=== PATIENT | female | born 1965 | race American Indian/Alaskan Native ===

== ENCOUNTER 2017-02-11 07:57 | Outpatient (CLI) | payer BC ==
--- NOTE | 2017-02-11 09:09 | Mammography Report ---
Bilateral mammogram: Compared to 05/09/15. CAD study utilized. Findings: Dominance of adipose tissue bilaterally. No mass or microcalcification. Benign axilla. Impression: Benign findings. Annual followup recommended. BI-RADS CATEGORY: 2 = Benign ACR BI-RADS MAMMOGRAPHIC CODES: 0 = Needs additional imaging evaluation; 1 = Negative; 2 = Benign; 3 = Probably benign; 4 = Suspicious; 5 = Malignant; 6 = Known biopsy-proven malignancy COMMENT: 1. Dense breast tissue, i.e., adenosis, fibrocystic changes, etc., may obscure an underlying neoplasm. 2. Approximately 10% of cancers are not detected with mammography. 3. A negative mammography report should not delay biopsy if a clinically suspicious mass is present. COMMENT: Patient follow-up letters are generated in [employer].
== END 2017-02-11 07:58 | disposition home or self-care (01) ==
LOC: MAMMO 07:57
PROVIDERS: ATTEND Family Medicine
DX: Z12.31 Encounter for screening mammogram for malignant neoplasm of breast (principal)
CPT/HCPCS: 77067; G0202

== ENCOUNTER 2018-04-12 14:20 | Outpatient (CLI) | payer OTHER ==
--- NOTE | 2018-04-12 15:15 | Mammography Report ---
Bilateral mammogram: Compared to 02/11/17. CAD study utilized. Findings: Predominance adipose tissue bilaterally. Ill-defined 1 cm focal asymmetry noted in the posterior outer right breast. No microcalcifications. Normal axilla. Impression: Focal asymmetry right breast. Recommend spot compression and sonographic examination. BI-RADS CATEGORY: 0 = Needs additional imaging evaluation ACR BI-RADS MAMMOGRAPHIC CODES: 0 = Needs additional imaging evaluation; 1 = Negative; 2 = Benign; 3 = Probably benign; 4 = Suspicious; 5 = Malignant; 6 = Known biopsy-proven malignancy COMMENT: 1. Dense breast tissue, i.e., adenosis, fibrocystic changes, etc., may obscure an underlying neoplasm. 2. Approximately 10% of cancers are not detected with mammography. 3. A negative mammography report should not delay biopsy if a clinically suspicious mass is present. COMMENT: Patient follow-up letters are generated in [employer].
== END 2018-04-12 14:21 | disposition home or self-care (01) ==
LOC: MAMMO 14:20
PROVIDERS: ATTEND Family Medicine
DX: Z12.31 Encounter for screening mammogram for malignant neoplasm of breast (principal)
CPT/HCPCS: 77067

== ENCOUNTER 2018-08-21 10:58 | Day surgery (SDC) | payer OTHER ==
[~2018-08-21 10:58] MED LIST: NACL 0.9% 1000 ML 1,000 ML IV SCH
[2018-08-21] MEDS ORDERED: DIPRIVAN 10 MG/ML IV ONE ×3 (12:20→12:21)
--- NOTE | 2018-08-21 12:20 | Anesthesia Day of Surgery ---
Anesthesia Day of Surgery - Day of Surgery Patient Examined: Yes Patient H&P Reviewed: Yes Patient is NPO: Yes Beta Blockers: No
--- NOTE | 2018-08-21 12:21 | Anesthesia Consultation ---
Anesthesia Consult and Med Hx Date of service: 08/21/18 - Airway Anesthetic Teeth Evaluation: Good ROM Head & Neck: Adequate Mental/Hyoid Distance: Adequate Mallampati Class: Class III Intubation Access Assessment: Probably Good - Pulmonary Exam CTA: No - Cardiac Exam Cardiac Exam: No Murmur - Pre-Operative Health Status ASA Pre-Surgery Classification: ASA3 Proposed Anesthetic Plan: MAC - Cardiovascular System Hx Hypertension: Yes Hx Coronary Artery Disease: No Hx Heart Attack/AMI: No Hx Angina: No Hx Percutaneous Transluminal Coronary Angioplasty (PTCA): No Hx Cardia Arrhythmia: No Hx Pacemaker: No Hx Internal Defibrillator: No Hx Valvular Heart Disease: No Hx Heart Murmur: No Hx Peripheral Vascular Disease: No - Gastrointestinal Hx Ulcer: No Hx Gastroesophageal Reflux Disease: No - Endocrine Hx Renal Disease: No Hx End Stage Renal Disease: No Hx Cirrhosis: No Hx Liver Disease: No Hx Insulin Dependent Diabetes: No Hx Non-Insulin Dependent Diabetes: No Hx Thyroid Disease: Yes Hx Hypothyroidism: No Hx Hyperthyroidism: No - Hematic Hx Anemia: No Hx Sickle Cell Disease: No - Other Systems Hx Alcohol Use: No Hx Substance Use: No Hx Cancer: No Hx Obesity: No
[2018-08-21] MEDS ORDERED: WATER FOR IRRIG STERILE ONE (12:23)
[2018-08-21] MEDS ORDERED: WATER FOR IRRIG STERILE IR ONE (12:23)
[2018-08-21 13:34] VITALS: BP 117/84
--- NOTE | 2018-08-21 15:58 | Operative Report ---
Operative Report Operative Report: Date of procedure: 08/21/2018 Procedure: Colonoscopy with submucosal injection with snare polypectomy and hot biopsy polypectomy. Attending physician: Valerio Dewitt MD Silk Screener: Valerio Dewitt MD Indication: Patient is a 53-year-old female who presents for screening colonoscopy. This colonoscopy serves to evaluate patient so that treatment may be directed based on the findings. Consent: Informed consent was obtained after advising the patient and family regarding nature of this procedure, its indications, potential benefits as well as possible complications including but not limited to bleeding perforation and adverse reaction to medication, infection as well as other cardiopulmonary complications. An informed written and verbal consent was then obtained after due opportunity was provided for questions and answers. Monitoring: Patient was monitored continuously with pulse oximetry and electrocardiographic recordings as well as blood pressure recordings. Vital signs remained stable throughout this procedure with no untoward events. Preoperative assessment: Patient was assessed immediately prior to this procedure for capacity to tolerate monitored anesthesia care and moderate sedation as well as general anesthesia. Patient's ASA classification is 2, Mallampati class is 2, Hyomental distance is 3. Instrument: [employer] video colonoscope Medications: Propofol given intravenously in divided doses. For details please refer to anesthesia records. Description of procedure: Patient was placed in the left lateral decubitus position after achieving sedation, a digital rectal examination was performed following which the colonoscope was introduced into the anal verge and advanced to the cecum which was identified by the cecal valve, the appendiceal orifice, as well as by the cecal strap and direct transillumination. The colonoscope was subsequently withdrawn with careful inspection of all mucosal surfaces. Patient tolerated this procedure well and was subsequently taken to the recovery room. The following findings were noted. Findings: Patient had a broad-based 8-10 cm semi-pedunculated polyp seen in the rectum, with the mucous cap and some changes at the base. This was elevated with submucosal injection of saline and removed by snare electrocautery. Patient had multiple diminutive diverticula in the sigmoid and descending colon. Patient also had a diminutive 5-6 mm flat polyp in the sigmoid colon which was removed by hot biopsy polypectomy. Patient was noted to have internal hemorrhoids seen on the retroflexed view at the anal verge. Impression: Rectal polyp status post snare polypectomy and submucosal injection Sigmoid colon polyp status post hot biopsy polypectomy. Diverticular disease of the colon Internal hemorrhoids. Plan: Follow pathology report. High-fiber diet. Repeat colonoscopy in 5 years, if polyp is adenomatous.
--- NOTE | 2018-08-21 15:59 | Discharge Summary ---
Short Stay Discharge Plan Activity: advance as tolerated Weight Bearing Status: Weight Bear as Tolerated Diet: regular Additional Instructions: Post Sedation D/C Instructions When you return home you may resume your regular diet unless otherwise directed. -Go directly home from the hospital and rest quietly. You may resume normal activities tomorrow. -Do NOT drive, return to work, operate any machinery or make any important personal or business decisions today. -Do NOT drink any alcohol or take nerve or sleeping drugs. They add to the effects of the medicine still present in your body. No Aspirin or Aspirin products for 4 days. Follow up with: CHRISS DICK MD [Primary Care Provider] - 7 Days
== END 2018-08-21 10:59 | disposition home or self-care (01) ==
LOC: GIO 10:58
PROVIDERS: ATTEND Internal Medicine Gastroenterology
DX: Z12.11 Encounter for screening for malignant neoplasm of colon (principal); D12.8 Benign neoplasm of rectum; K63.5 Polyp of colon; K57.30 Diverticulosis of large intestine without perforation or abscess without bleeding; K64.8 Other hemorrhoids; E07.9 Disorder of thyroid, unspecified; E78.00 Pure hypercholesterolemia, unspecified; I10 Essential (primary) hypertension; Z79.899 Other long term (current) drug therapy; Z79.01 Long term (current) use of anticoagulants
CPT/HCPCS: 45381; 45384; 45385; 88305; J2704; J7030

== ENCOUNTER 2019-02-01 06:48 | Inpatient (IN) | payer OTHER ==
[2019-02-01] MEDS ORDERED: SODIUM CHLORIDE 0.9% 1000 ML 2,000 ML ONE (07:23)
[2019-02-01 07:24] LABS: Hematocrit 39.4 % (30.3-42.9); Hemoglobin 12.6 gm/dl (10.1-14.3); Mean Corpuscular HGB Conc 32 % (30-34); Mean Corpuscular Volume 91 fl (79-97); Red Blood Count 4.36 M/mm3 (3.65-5.03); Red Cell Distribution Width 16.9 % (13.2-15.2)
[2019-02-01 07:25] LABS: Platelet Count 62 K/mm3 (140-440)
[2019-02-01] MEDS ORDERED: SODIUM CHLORIDE 0.9% 1000 ML IV SOLN IV ONE (07:26)
[2019-02-01] MEDS ORDERED: ACETAMINOPHEN 650 MG RECT SUPP PR ONE (07:31)
[2019-02-01 07:33] LABS: INR 1.21 (0.87-1.13)
[2019-02-01 07:34] LABS: Partial Thromboplastin Time 34.8 Sec. (24.2-36.6)
--- NOTE | 2019-02-01 07:34 | Cat Scan Report ---
CT head without contrast INDICATION : neuro deficits <6hrs or sx present upon awakening. TECHNIQUE: Axial imaging performed from the skull apex through the skull base without the use of con trast. All CT scans at this location are performed using CT dose reduction for ALARA by means of aut omated exposure control. COMPARISON: None FINDINGS: Parenchyma: No acute intracranial hemorrhage or parenchymal abnormality. Ventricles: Ventricles are normal in size and appear symmetric. Soft tissues: Soft tissues including the orbits appear normal. Bones: No acute osseous abnormality. Sinuses: Sinuses and mastoid air cells are clear. IMPRESSION: No acute abnormality. Findings were called to Dr. Lam at 6:28 am today.. Signer Name: Roverto Cagle MD Signed: 02/01/2019 7:30 AM Workstation Name: [email or web address]
[2019-02-01 07:35] LABS: Calcium 8.5 mg/dL (8.4-10.2)
--- NOTE | 2019-02-01 07:38 | Emergency Department Report ---
ED Altered Mental Status HPI - General Chief Complaint: Altered Mental Status Stated Complaint: CODE STROKE Time Seen by Provider: 02/01/19 07:25 Source: EMS Mode of arrival: Stretcher Limitations: Altered Mental Status - History of Present Illness Initial Comments: [employer] [facility] Date of Service: 02/01/2019 06:35:02 Impression: RO Acute Ischemic Stroke Encephalopathy Metrics: Last Known Well: Unknown [employer] Notification Time: 02/01/2019 06:33:56 Arrival Time: 02/01/2019 06:45:00 Stamp Time: 02/01/2019 06:35:02 Time First Login Attempt: 02/01/2019 06:41:00 Video Start Time: 02/01/2019 06:41:00 Symptoms: Unresponsiveness. NIHSS Start Assessment Time: 02/01/2019 06:49:00 Patient is not a candidate for tPA. Patient was not deemed candidate for tPA thrombolytics because of Last Well Known above 4.5 hours. Video End Time: 02/01/2019 07:05:00 CT head was reviewed. Advanced imaging was not obtained as the presentation was not suggestive of Large Vessel Occlusive Disease. ER physician notified of the decision on thrombolytics management. Comments: Patient presents with being found unresponsive and earlier confusion at 100 am without clear LSN. She is presenting 5.5 hours after the last time EMS saw her at 100 am. Her presentation is beyond the window of time for tPA thrombolytics. She has no clear focal deficits at this time. CT head being obtained for further evaluation. Would obtain EEG , comprehensive metabolic work up as well as inpatient stroke work up as recommended below. Of note, she has leukocytosis and thrombocytopenia. Electrolytes pending at the current time. CT head was reviewed. There was no clear acute findings, hemorrahge or acute infarct on my evaluation. Radiology read is pending at this time. She is also febrile and source is unknown. She was found to have right lateral neck palpable mass earlier. Discussed case with ED physician. She may need to be evaluated under sepsis alert. Our recommendations are outlined below. Discussed with Emergency Department Provider History of Present Illness: Patient is a 53 years old Female. Patient was brought by EMS for symptoms of Unresponsiveness. EMS was originally called to site at 100 am. When they arrived, they noted that she was alert and oriented but somewhat confused and was quite slowed in responses. LSN before that is not known. EMS was called again now, as family went to attend to her and she was not responding. She was brought here for further evaluation. She has been moving all four extremities to nociceptive stimuli and opening eyes but no speech output and does not follow commands. CT head was reviewed. There was no clear acute findings, hemorrahge or acute infarct on my evaluation. Radiology read is pending at this time. Last Seen Normal was within 4.5 hours. EXAM- NIHSS cannot be obtained. Patient not responsive and does not follow commands. Eyes are open, there is no gaze deviation. There is no speech output and patient does not follow commands. She spontaneously moves all extremities without definitive focal weakness, but motor examination is limited. Facial grimacing is symmetric. Due to the immediate potential for life-threatening deterioration due to underlying acute neurologic illness, I spent 35 minutes providing critical care. This time includes time for face to face visit via telemedicine, review of medical records, imaging studies and discussion of findings with providers, the patient and/or family. Dr Candido Medrano [employer] - Related Data Home Medications Medication Instructions Recorded Confirmed Last Taken Clonidine 0.2 mg PO DAILY 08/18/18 08/21/18 08/21/18 Levothyroxine 112 mcg PO DAILY 08/18/18 08/21/18 08/21/18 Lisinopril 40 mg PO DAILY 08/18/18 08/21/18 08/21/18 amLODIPine 10 mg PO DAILY 08/18/18 08/21/18 08/21/18 Allergies Allergy/AdvReac Type Severity Reaction Status Date / Time No Known Allergies Allergy Verified 08/18/18 09:04 ED Review of Systems ROS: Stated complaint: CODE STROKE Other details as noted in HPI ED Past Medical Hx - Past Medical History Previous Medical History?: Yes Hx Hypertension: Yes Hx Heart Attack/AMI: No Hx Liver Disease: No Hx Renal Disease: No Hx Sickle Cell Disease: No - Surgical History Hx Pacemaker: No Hx Internal Defibrillator: No - Social History Smoking Status: Unknown if ever smoked - Medications Home Medications: Home Medications Medication Instructions Recorded Confirmed Last Taken Type Clonidine 0.2 mg PO DAILY 08/18/18 08/21/18 08/21/18 History Levothyroxine 112 mcg PO DAILY 08/18/18 08/21/18 08/21/18 History Lisinopril 40 mg PO DAILY 08/18/18 08/21/18 08/21/18 History amLODIPine 10 mg PO DAILY 08/18/18 08/21/18 08/21/18 History ED Physical Exam - General Limitations: Altered Mental Status ED Course Vital Signs 02/01/19 02/01/19 07:16 07:24 Temperature 101.8 F H Pulse Rate 144 H Respiratory 44 H 44 H Rate Blood Pressure 90/60 O2 Sat by Pulse 89 Oximetry - Lab Data Result diagrams: 02/01/19 07:16 Lab Results 02/01/19 Range/Units 07:16 WBC 17.7 H (4.5-11.0) K/mm3 RBC 4.36 (3.65-5.03) M/mm3 Hgb 12.6 (10.1-14.3) gm/dl Hct 39.4 (30.3-42.9) % MCV 91 (79-97) fl MCH 29 (28-32) pg MCHC 32 (30-34) % RDW 16.9 H (13.2-15.2) % Plt Count 62 L (140-440) K/mm3 Critical care attestation.: If time is entered above; I have spent that time in minutes in the direct care of this critically ill patient, excluding procedure time. ED Disposition Clinical Impression: Encephalopathy Disposition: DC- OP ADMIT IP TO THIS HOSP Is pt being admited?: Yes Condition: Stable
--- NOTE | 2019-02-01 07:55 | Emergency Department Report ---
HPI - General Chief Complaint: Altered Mental Status Time Seen by Provider: 02/01/19 07:25 - HPI HPI: Room 18 The patient is a 53-year-old female presented with a chief complaint of altered mental status. Last night the patient went out to dinner with friends and family was found to have an unsteady gait, fatigue and appear withdrawn. Family noticed patient 7 difficulty with her "fine motor skills" throughout the night. Family states patient was having difficulty expressing herself throughout the night that she would continue to point at the menu. The patient appeared to be disoriented and upon returning home patient had difficulty going upstairs so EMS was called. EMS evaluated the patient the patient refused to come to the hospital. Subsequently the patient went to bed and this morning the patient had decreased responsiveness and was subsequently brought to the ED via EMS. The patient opens her eyes occasionally but does not answer questions verbally. Location: [See above] Duration: [See above] Quality: [See above] Severity: [See above] Modifying factors: [see above] Context: [see above] Mode of transportation: [not driving] ED Past Medical Hx - Past Medical History Previous Medical History?: Yes Hx Hypertension: Yes - Family History Family history: no significant - Social History Smoking Status: Unknown if ever smoked Substance Use Type: None - Medications Home Medications: Home Medications Medication Instructions Recorded Confirmed Last Taken Type Clonidine 0.2 mg PO DAILY 08/18/18 08/21/18 08/21/18 History Levothyroxine 112 mcg PO DAILY 08/18/18 08/21/18 08/21/18 History Lisinopril 40 mg PO DAILY 08/18/18 08/21/18 08/21/18 History amLODIPine 10 mg PO DAILY 08/18/18 08/21/18 08/21/18 History ED Review of Systems ROS: Stated complaint: CODE STROKE Other details as noted in HPI Comment: Unobtainable due to pts medical conditions Physical Exam - Physical Exam Vital Signs: Vital Signs 02/01/19 02/01/19 07:16 07:24 Temperature 101.8 F H Pulse Rate 144 H Respiratory 44 H 44 H Rate Blood Pressure 90/60 O2 Sat by Pulse 89 Oximetry Physical Exam: GENERAL: The patient is well-developed well-nourished female. Lethargic lying on stretcher. [] HEENT: Normocephalic. Atraumatic. Oropharynx appears clear. Limited cooperation by patient. Patient has moist mucous membranes. NECK: Supple. Trachea midline CHEST/LUNGS: Clear to auscultation. There is no respiratory distress noted. HEART/CARDIOVASCULAR: Regular. There is tachycardia. There is no gallop rub or murmur. ABDOMEN: Abdomen is soft, nontender. Patient has normal bowel sounds. There is no abdominal distention. SKIN: There is no rash. There is no edema. There is no diaphoresis. NEURO: The patient is lethargic in appearance and nonverbal. Patient does not follow commands MUSCULOSKELETAL: There is no evidence of acute injury. ED Course Vital Signs 02/01/19 02/01/19 07:16 07:24 Temperature 101.8 F H Pulse Rate 144 H Respiratory 44 H 44 H Rate Blood Pressure 90/60 O2 Sat by Pulse 89 Oximetry ED Medical Decision Making - Lab Data Result diagrams: 02/01/19 07:16 02/01/19 07:16 - Radiology Data Radiology results: report reviewed (CT head, chest x-ray, CT neck), image reviewed (chest x-ray, CT head, CT neck) interpreted by me: Chest x-ray-right hilar fullness. No pneumothorax [facility] [address] [place] [address] Cat Scan Report Signed Patient: ASHTYN NGUYEN MR#: [id number] : 1965 Acct:[id number] Age/Sex: 53 / F ADM Date: 02/01/19 Loc: ED Attending Dr: Ordering Physician: RADHA DENISE MD Date of Service: 02/01/19 Procedure(s): CT head/brain wo con Accession Number(s): [id number] cc: RADHA DENISE MD CT head without contrast INDICATION : neuro deficits <6hrs or sx present upon awakening. TECHNIQUE: Axial imaging performed from the skull apex through the skull base without the use of contrast. All CT scans at this location are performed using CT dose reduction for ALARA by means of automated exposure control. COMPARISON: None FINDINGS: Parenchyma: No acute intracranial hemorrhage or parenchymal abnormality. Ventricles: Ventricles are normal in size and appear symmetric. Soft tissues: Soft tissues including the orbits appear normal. Bones: No acute osseous abnormality. Sinuses: Sinuses and mastoid air cells are clear. IMPRESSION: No acute abnormality. Findings were called to Dr. Denise at 6:28 am today.. Signer Name: Roverto Cagle MD Signed: 02/01/2019 7:30 AM Workstation Name: [id number] Transcribed By: ALTON Dictated By: Roverto Cagle MD Electronically Authenticated By: Roverto Cagle MD Signed Date/Time: 02/01/19729 DD/ 6 TD/TT: [address] [address] XRay Report Signed Patient: ASHTYN NGUYEN MR#: [id number] : 1965 Acct:[id number] Age/Sex: 53 / F ADM Date: 02/01/19 Loc: ED Attending Dr: Ordering Physician: RADHA DENISE MD Date of Service: 02/01/19 Procedure(s): XR chest 1V ap Accession Number(s): [id number] cc: RADHA DEINSE MD Fluoro Time In Minutes: CHEST 1 VIEW INDICATION: fever. COMPARISON: None FINDINGS: Support devices: None. Heart: Borderline to mild cardiomegaly. The aorta is ectatic with calcifications but well defined. Lungs/Pleura: Mild bilateral pulmonary venous congestion is suspected. No convincing infiltrate, pleural effusion or pneumothorax. The bony structures are intact. Additional findings: None. IMPRESSION: Mild cardiomegaly and pulmonary venous congestion. No obvious pneumonia. Signer Name: Bret Escobar Jr, MD Signed: 02/01/2019 7:52 AM Workstation Name: [id number] Transcribed By: CYNTHIA Dictated By: BRET ESCOBAR JR, MD Electronically Authenticated By: BRET ESCOBAR JR, MD Signed Date/Time: 02/01/19 075 DD/ 0 TD/TT: [address] [address] Cat Scan Report Signed Patient: ASHTYN NGUYEN MR#: [id number] : 1965 Acct:[id number] Age/Sex: 53 / F ADM Date: 02/01/19 Loc: ED Attending Dr: Ordering Physician: RADHA DENISE MD Date of Service: 02/01/19 Procedure(s): CT neck wo con Accession Number(s): [id number] cc: RADHA DENISE MD CT neck 02/01/2019 INDICATION / CLINICAL INFORMATION: MAIN: history of throat pain, febrile, septic TECH NOTES: PT WOKE UP AND COULD NOT TALK OR SIT UP. NO IV CONTRAST-PT GFR 12. COMPARISON: None available. FINDINGS: Unenhanced CT images of the soft tissues of the neck were obtained. There is extensive swelling and edema in the right side of the neck, which is extending down from the right retromandibular region, down towards the submandibular region and along the right side of the neck down nearly to the level of the head of the clavicle. There appears to be prominent adenopathy as well as soft tissue edema. Subcutaneous edema and thickening of the platysma is present. The overall appearance is consistent with an inflammatory/infectious process and reactive adenopathy. No definite fluid collection is identified, although identification of fluid collection could be further enhanced with the use of postcontrast imaging, which may be contrai ndicated in this case because of renal insufficiency. Images through the upper thorax demonstrate evidence of right upper lobe infiltrate, right lower lobe atelectasis, and prominent bilateral hilar adenopathy. Depending on details of the clinical circumstances, further evaluation with dedicated chest CT imaging is suggested. IMPRESSION: Extensive inflammatory change and edema on the right side of the neck, with underlying adenopathy. The appearance would be consistent with inflammatory process/cellulitis. Incidental potentially significant pulmonary findings. All CT scans at this location are performed using dose reduction to ALARA by means of automated exposure control. Signer Name: Gallo Ramsey MD Signed: 02/01/2019 9:49 AM Workstation Name: [id number] Transcribed By: MISAEL Dictated By: Gallo Ramsey MD Electronically Authenticated By: Gallo Ramsey MD Signed Date/Time: 02/01/19948 DD/ 3 TD/TT: - Differential Diagnosis sepsis, altered mental status, hyperthyroidism Critical care attestation.: If time is entered above; I have spent that time in minutes in the direct care of this critically ill patient, excluding procedure time. ED Disposition Clinical Impression: Encephalopathy, Sepsis, Pneumonia, Acute renal failure, Fever, Altered mental status Disposition: -09 OP ADMIT IP TO THIS HOSP Is pt being admited?: Yes Does the pt Need Aspirin: No Condition: Fair Instructions: Bacterial Pneumonia (ED) Referrals: PRIMARY CARE, [Referring] - 3-5 Days Time of Disposition: 10:08
[2019-02-01 07:58] LABS: Chol/HDL Ratio 3.75 %
[2019-02-01] MEDS ORDERED: cefTRIAXone/NS 2 GM/100 ML 2 GM/100 ML BAG IV ONE (08:00)
[2019-02-01 08:10] LABS: Albumin 2.3 g/dL (3.9-5); Bilirubin,Direct 0.7 mg/dL (0-0.2)
[2019-02-01 08:42] LABS: Free T4 (Free Thyroxine) 1.08 ng/dL (0.76-1.46)
[2019-02-01 08:44] LABS: Band Neutrophils # (Manual) 0.5 K/mm3; Eosinophils % (Manual) 0 % (0.0-4.3); Total Cells Counted 100
[2019-02-01 08:45] LABS: Anisocytosis 1+; Basophils % (Manual) 0 % (0.0-1.8); Burr Cells 1+; Platelet Estimate Consistent w Auto; Poikilocytosis 1+
--- NOTE | 2019-02-01 09:53 | Cat Scan Report ---
CT neck 02/01/2019 INDICATION / CLINICAL INFORMATION: MAIN: history of throat pain, febrile, septic TECH NOTES: PT WOKE UP AND COULD NOT TALK OR SIT UP. NO IV CONTRAST-PT GFR 12. COMPARISON: None available. FINDINGS: Unenhanced CT images of the soft tissues of the neck were obtained. There is extensive swelling and edema in the right side of the neck, which is extending down from the right retromandibular region, down towards the submandibular region and along the right side of the neck down nearly to the level of the head of the clavicle. There appears to be prominent adenopathy a s well as soft tissue edema. Subcutaneous edema and thickening of the platysma is present. The overall appearance is consistent with an inflammatory/infectious process and reactive adenopathy. No definite fluid collection is identified, although identification of fluid collection could be furt her enhanced with the use of postcontrast imaging, which may be contraindicated in this case because of renal insufficiency. Images through the upper thorax demonstrate evidence of right upper lobe infiltrate, right lower lobe atelectasis, and prominent bilateral hilar adenopathy. Depending on details of the clinical circumst ances, further evaluation with dedicated chest CT imaging is suggested. IMPRESSION: Extensive inflammatory change and edema on the right side of the neck, with underlying adenopathy. T he appearance would be consistent with inflammatory process/cellulitis. Incidental potentially significant pulmonary findings. All CT scans at this location are performed using dose reduction to ALARA by means of automated expos ure control. Signer Name: Gallo Ramsey MD Signed: 02/01/2019 9:49 AM Workstation Name: [email or web address]
[2019-02-01] MEDS: AZITHROMYCIN 500 MG in SODIUM CHLORIDE 0.9% 250ML 250 ML IV ONE (10:37)
[2019-02-01 10:39] LABS: Amorphous Crystals,Urine 1+; Bilirubin,Urine NEG (Negative); Blood,Urine MOD (Negative); Color,Urine Amber (Yellow); Mucus,Urine FEW /HPF; Urobilinogen,Urine < 2.0 mg/dL (<2.0)
[2019-02-01 10:41] LABS: Protein,Urine >500 mg/dL (Negative)
[2019-02-01] MEDS ORDERED: ONDANSETRON 4 MG/2 ML INJ IV PRN (10:47)
[2019-02-01] MEDS ORDERED: ALBUTEROL 2.5 MG/3 ML NEBU IH PRN (10:47)
[2019-02-01] MEDS ORDERED: VANCOMYCIN PHARMACY TO DOSE IV SCH (11:00)
--- NOTE | 2019-02-01 11:16 | History and Physical Report ---
History of Present Illness Date of examination: 02/01/19 Date of admission: 02/01/19 10:11 Chief complaint: Altered mental status History of present illness: Patient was altered and was not able to give history. History obtained from her son and her sister. 53-year-old -Algerian female with past medical history significant for hypothyroidism, hypertension, autoimmune disease was brought via EMS to the emergency department with c/o of altered mental status. Last night she went out with family for dinner and she was confused, she was barely speaking, difficulty of finding words. EMS was called and patient refused to come to the hospital. This morning the patient was found in her bed unresponsive by her son called EMS and brought her to the hospital. Patient had cough for a month, she had sore throat for a week and had pain on swallowing and didn't eat anything last night. patient had difficulty of breathing and termer this morning. Patient has been followed by nephrology and I couldn't get any baseline labs. The emergency department she was in acute distress respiratory rate was around 55 on a nonrebreather mask, I ask Dr Lam to intubate the patient. Patient has elevated white blood cell count, always lactic acid level of 4.8, chest x-ray showed cardiomegaly and congestion, CT neck showed inflammation on the right side of the neck suggestive of cellulitis. Patient started with IV antibiotics and will be admitted to ICU. Review of system obtained because patient was altered. Past History Past Medical History: hypertension, hypothyroidism Past Surgical History: No surgical history Social history: full code. denies: smoking, alcohol abuse, prescription drug abuse Family history: stroke (father) Medications and Allergies Allergies Allergy/AdvReac Type Severity Reaction Status Date / Time No Known Allergies Allergy Verified 08/18/18 09:04 Home Medications Medication Instructions Recorded Confirmed Last Taken Type Levothyroxine [Synthroid] 112 mcg PO QAM 02/01/19 02/01/19 Unknown History Lisinopril [Zestril TAB] 40 mg PO QDAY 02/01/19 02/01/19 Unknown History amLODIPine [Norvasc] 10 mg PO DAILY 02/01/19 02/01/19 Unknown History cloNIDine [Catapres] 1 mg PO QDAY 02/01/19 02/01/19 Unknown History Active Meds: Active Medications Acetaminophen (Tylenol) 650 mg PO Q4H PRN PRN Reason: Pain MILD(1-3)/Fever >100.5/VALENZUELA Albuterol (Proventil) 2.5 mg IH Q4HRT PRN PRN Reason: Shortness Of Breath Albuterol/Ipratropium (Duoneb *Not For Prn Use*) 1 ampul IH Q6HRT AMOL Heparin Sodium (Porcine) (Heparin) 5,000 unit SUB-Q Q8HR [facility] Azithromycin 500 mg/ Sodium (Chloride) 250 mls @ 250 mls/hr IV ONCE ONE; Protocol Stop: 02/01/19 12:10 Last Admin: 02/01/19 10:37 Dose: 250 mls/hr Documented by: Cefepime HCl (Maxipime/Ns 1 Gm/100 Ml) 1 gm in 100 mls @ 200 mls/hr IV Q8HR [facility]; Protocol Morphine Sulfate (Morphine) 2 mg IV Q4H PRN PRN Reason: Pain, Moderate (4-6) Ondansetron HCl (Zofran) 4 mg IV Q8H PRN PRN Reason: Nausea And Vomiting Sodium Chloride (Sodium Chloride Flush Syringe 10 Ml) 10 ml IV BID AMOL Sodium Chloride (Sodium Chloride Flush Syringe 10 Ml) 10 ml IV PRN PRN PRN Reason: LINE FLUSH Review of Systems ROS unobtainable: due to mental status Exam - Physical Exam Narrative exam: Patient is in cardiopulmonary distress. The patient appeared well nourished and normally developed. Vital signs as documented. Head exam is unremarkable. No scleral icterus . Neck is without jugular venous distension, thyromegaly, or carotid bruits. Lungs; tachypnic, BBS. Cardiac exam reveals regular rate and Rhythm. Abdominal exam reveals normal bowel sounds, no masses, no organomegaly and no aortic enlargement. Extremities are nonedematous and both femoral and pedal pulses are normal. COLLEGE ADMINISTRATOR: patient is lethrgic. - Constitutional Vitals: Temp Pulse Resp BP Pulse Ox 101.8 F H 143 H 47 H 154/82 100 02/01/19 07:16 02/01/19 09:44 02/01/19 09:44 02/01/19 09:44 02/01/19 09:44 Results - Labs CBC & Chem 7: 02/01/19 07:16 02/01/19 07:16 Labs: Laboratory Last Values WBC 17.7 K/mm3 (4.5-11.0) H 02/01/19 07:16 RBC 4.36 M/mm3 (3.65-5.03) 02/01/19 07:16 Hgb 12.6 gm/dl (10.1-14.3) 02/01/19 07:16 Hct 39.4 % (30.3-42.9) 02/01/19 07:16 MCV 91 fl (79-97) 02/01/19 07:16 MCH 29 pg (28-32) 02/01/19 07:16 MCHC 32 % (30-34) 02/01/19 07:16 RDW 16.9 % (13.2-15.2) H 02/01/19 07:16 Plt Count 62 K/mm3 (140-440) L 02/01/19 07:16 Add Manual Diff Complete 02/01/19 07:16 Total Counted 100 02/01/19 07:16 Seg Neuts % (Manual) 95.0 % (40.0-70.0) H 02/01/19 07:16 3.0 % 02/01/19 07:16 0 % (13.4-35.0) L 02/01/19 07:16 Reactive Lymphs % (Man) 0 % 02/01/19 07:16 1.0 % (0.0-7.3) 02/01/19 07:16 0 % (0.0-4.3) 02/01/19 07:16 0 % (0.0-1.8) 02/01/19 07:16 1.0 % 02/01/19 07:16 0 % 02/01/19 07:16 0 % 02/01/19 07:16 0 % 02/01/19 07:16 Nucleated RBC % Not Reportable 02/01/19 07:16 Seg Neutrophils # Man 16.8 K/mm3 (1.8-7.7) H 02/01/19 07:16 Band Neutrophils # 0.5 K/mm3 02/01/19 07:16 0.0 K/mm3 (1.2-5.4) L 02/01/19 07:16 Abs React Lymphs (Man) 0.0 K/mm3 02/01/19 07:16 0.2 K/mm3 (0.0-0.8) 02/01/19 07:16 0.0 K/mm3 (0.0-0.4) 02/01/19 07:16 0.0 K/mm3 (0.0-0.1) 02/01/19 07:16 0.2 K/mm3 02/01/19 07:16 0.0 K/mm3 02/01/19 07:16 0.0 K/mm3 02/01/19 07:16 Blast Cells # 0.0 K/mm3 02/01/19 07:16 WBC Morphology Not Reportable 02/01/19 07:16 Hypersegmented Neuts Not Reportable 02/01/19 07:16 Hyposegmented Neuts Not Reportable 02/01/19 07:16 Hypogranular Neuts Not Reportable 02/01/19 07:16 Cancelled 02/01/19 07:16 Not Reportable 02/01/19 07:16 Not Reportable 02/01/19 07:16 Not Reportable 02/01/19 07:16 Not Reportable 02/01/19 07:16 Not Reportable 02/01/19 07:16 Not Reportable 02/01/19 07:16 Consistent w auto 02/01/19 07:16 Not Reportable 02/01/19 07:16 Plt Clumps, EDTA Not Reportable 02/01/19 07:16 Not Reportable 02/01/19 07:16 Not Reportable 02/01/19 07:16 Not Reportable 02/01/19 07:16 Plt Morphology Comment Not Reportable 02/01/19 07:16 RBC Morphology Not Reportable 02/01/19 07:16 Dimorphic RBCs Not Reportable 02/01/19 07:16 Not Reportable 02/01/19 07:16 Not Reportable 02/01/19 07:16 1+ 02/01/19 07:16 Cancelled 02/01/19 07:16 1+ 02/01/19 07:16 Not Reportable 02/01/19 07:16 Not Reportable 02/01/19 07:16 Not Reportable 02/01/19 07:16 Not Reportable 02/01/19 07:16 Not Reportable 02/01/19 07:16 Not Reportable 02/01/19 07:16 Not Reportable 02/01/19 07:16 Not Reportable 02/01/19 07:16 Cancelled 02/01/19 07:16 Not Reportable 02/01/19 07:16 Not Reportable 02/01/19 07:16 Not Reportable 02/01/19 07:16 1+ 02/01/19 07:16 Not Reportable 02/01/19 07:16 Not Reportable 02/01/19 07:16 Not Reportable 02/01/19 07:16 Acanthocytes (Spur) Not Reportable 02/01/19 07:16 Rouleaux Not Reportable 02/01/19 07:16 Not Reportable 02/01/19 07:16 Not Reportable 02/01/19 07:16 Not Reportable 02/01/19 07:16 Not Reportable 02/01/19 07:16 Hem Pathologist Commnt No 02/01/19 07:16 PT 15.0 Sec. (12.2-14.9) H 02/01/19 07:16 INR 1.21 (0.87-1.13) H 02/01/19 07:16 APTT 34.8 Sec. (24.2-36.6) 02/01/19 07:16 20.0 Sec. (15.1-19.6) H 02/01/19 07:16 Sodium 135 mmol/L (137-145) L 02/01/19 07:16 Potassium 4.6 mmol/L (3.6-5.0) 02/01/19 07:16 Chloride 97.7 mmol/L (98-107) L 02/01/19 07:16 Carbon Dioxide 19 mmol/L (22-30) L 02/01/19 07:16 23 mmol/L 02/01/19 07:16 BUN 51 mg/dL (7-17) H 02/01/19 07:16 4.5 mg/dL (0.7-1.2) H 02/01/19 07:16 Estimated GFR 12 ml/min 02/01/19 07:16 11 % 02/01/19 07:16 Glucose 112 mg/dL (65-100) H 02/01/19 07:16 Lactic Acid 4.80 mmol/L (0.7-2.0) H* 02/01/19 07:29 Calcium 8.5 mg/dL (8.4-10.2) 02/01/19 07:16 1.20 mg/dL (0.1-1.2) 02/01/19 07:29 0.7 mg/dL (0-0.2) H 02/01/19 07:29 0.5 mg/dL 02/01/19 07:29 AST 42 units/L (5-40) H 02/01/19 07:29 ALT 12 units/L (7-56) 02/01/19 07:29 95 units/L (35-129) 02/01/19 07:29 0.181 ng/mL (0.00-0.029) H* 02/01/19 07:16 8.9 g/dL (6.3-8.2) H 02/01/19 07:29 2.3 g/dL (3.9-5) L 02/01/19 07:29 0.3 % 02/01/19 07:29 Triglycerides 95 mg/dL (2-149) 02/01/19 07:16 Cholesterol 75 mg/dL (50-199) 02/01/19 07:16 34 mg/dL (50-130) L 02/01/19 07:16 20 mg/dL (40-59) L 02/01/19 07:16 3.75 % 02/01/19 07:16 TSH 8.470 mlU/mL (0.270-4.200) H 02/01/19 07:43 Free T4 1.08 ng/dL (0.76-1.46) 02/01/19 07:43 Sara (Yellow) 02/01/19 09:45 Cloudy (Clear) 02/01/19 09:45 5.0 (5.0-7.0) 02/01/19 09:45 Ur Specific [place] 1.019 (1.003-1.030) 02/01/19 09:45 >500 mg/dL (Negative) 02/01/19 09:45 Neg mg/dL (Negative) 02/01/19 09:45 Neg mg/dL (Negative) 02/01/19 09:45 Mod (Negative) 02/01/19 09:45 Neg (Negative) 02/01/19 09:45 Neg (Negative) 02/01/19 09:45 < 2.0 mg/dL (<2.0) 02/01/19 09:45 Ur Leukocyte Esterase Neg (Negative) 02/01/19 09:45 16.0 /HPF (0.0-6.0) H 02/01/19 09:45 77.0 /HPF (0.0-6.0) 02/01/19 09:45 U Epithel Cells (Auto) 2.0 /HPF (0-13.0) 02/01/19 09:45 Amorphous Crystals 1+ 02/01/19 09:45 Few /HPF 02/01/19 09:45 Assessment and Plan Assessment and plan: Septic shock - Source of infection is likely from the sore throat, CT of the neck showed inflammation/cellulitis - Patient had a fever of 101.8 - Lactic acid level was 4.8 - Patient was started treatment according to protocol his antibiotics and IV fluids - Follow blood culture - ID consulted Acute metabolic encephalopathy - CT head is negative, telemetry neurology consulted and doesn't think it is stroke - I put a consult for neurology Acute respiratory failure - Patient was tachypneic despite non rebreather mask and asked DR Lam to intubate her - Breathing treatments - Pulmonary consulted - Get ABG Type 2 SC - Patient has elevated troponin level, could be due to her renal failure versus septic shock Acute on chronic renal failure - No baseline creatinine level but in the chart it showed that she was followed with nephrology - consulted nephrology group she has been followed with Hypothyroidism - TSH 8.47 normal free T4 level - We'll resume Synthroid Coagulation abnormality - Likely due to septic shock UTI - Continue antibiotics - Urine culture Thrombocytopenia - Platelet count is 62, but no active bleeding The high probability of a clinically significant, sudden or life threatening deterioration of the [CV, Neurology, renal] system(s) required my full and direct attention, intervention and personal management. The aggregate critical care time was [45] minutes. This time is in addition to time spent performing reported procedures but includes the following: [x] Data Review and interpretation [x] Patient assessment and monitoring of vital signs [x] Documentation [x] Medication orders and management Advance Directives: Yes (Full code) VTE prophylaxis?: Mechanical Contraindication Mechanical VTE Prophylaxis: Contraindicated Reason for no VTE Prophylaxis: Medical contraindication (thrombocytopenia) Plan of care discussed with patient/family: Yes
[2019-02-01] MEDS ORDERED: MIDAZOLAM 5 MG/5 ML INJ MDV IV ONE (11:22)
[2019-02-01] MEDS: MIDAZOLAM 2 MG/2 ML INJ IV PRN ×2 (11:24→11:42)
--- NOTE | 2019-02-01 11:47 | XRay Report ---
ABDOMEN 1 VIEW(S) INDICATION: NG tube placement COMPARISON: None available. FINDINGS: Nasogastric tube has tip in the stomach Bowel gas pattern: Within normal limits. No dilated loops of large or small bowel. Free air: None. Calcified gallstones: None seen. Calcified urinary tract calculi: None seen. Additional Findings: None. Skeletal structures: No acute abnormality. IMPRESSION: 1. No acute findings. Signer Name: Preston Ocasio MD Signed: 02/01/2019 11:42 AM Workstation Name: [employer]
[2019-02-01] MEDS: MIDAZOLAM 100 MG in SODIUM CHLORIDE 0.9% 80 ML IV SCH (11:52)
--- NOTE | 2019-02-01 12:02 | XRay Report ---
CHEST 1 VIEW INDICATION: Endotracheal tube placement. COMPARISON: 02/01/2019 FINDINGS: Support devices: The endotracheal tube terminates 4.9 cm superior to the gilson. Heart: Stable cardiomegaly and ectatic aorta. Lungs/Pleura: Stable mild pulmonary venous congestion. No obvious infiltrate, pleural effusion or pne umothorax. Additional findings: None. IMPRESSION: Adequate placement of the endotracheal tube. Stable cardiomegaly and pulmonary venous congestion. Signer Name: Bret Escobar Jr, MD Signed: 02/01/2019 11:57 AM Workstation Name: [id number]
[2019-02-01] MEDS: CEFEPIME/NS 1 GM/100 ML 1 GM/100 ML BAG IV SCH (12:10)
[2019-02-01] MEDS ORDERED: ETOMIDATE 20 MG/10 ML INJ IV ONE ×2 (12:13→21:35)
[2019-02-01] MEDS ORDERED: SUCCINYLCHOLINE CHLORIDE 200 MG/10 ML INJ MDV IV ONE (12:13)
[2019-02-01] MEDS ORDERED: VANCOMYCIN 1,500 MG in SODIUM CHLORIDE 0.9% 500 ML 500 ML IV ONE (12:45)
[2019-02-01] MEDS ORDERED: IPRATROPIUM/ALBUTEROL SULFATE 3 ML AMPUL.NEB IH ONE ×2 (13:18→22:12)
[2019-02-01] MEDS: IPRATROPIUM/ALBUTEROL SULFATE 3 ML AMPUL.NEB IH SCH ×2 (13:39→20:48)
[2019-02-01] MEDS ORDERED: HEPARIN 5,000 UNIT/1 ML VIAL SUB-Q SCH (14:00)
[2019-02-01] MEDS ORDERED: CEFEPIME/NS 1 GM/100 ML 1 GM/100 ML BAG IV SCH (14:00)
--- NOTE | 2019-02-01 15:48 | Consultation ---
History of Present Illness - Reason for Consult Consult date: 02/01/19 Septic shock, respiratory failure Requesting physician: TANIA NICOLE - History of Present Illness The patient is a 53-year-old female with hypothyroidism, hypertension, ?autoimmune disease was brought into the emergency room today with altered mental status. Apparently, she went out with family last night for dinner and was noted to be confused. This morning, the patient was found unresponsive in the bed and hence EMS was called and patient was brought to the hospital. Was intubated due to respiratory distress. She was noted to have significant leukocytosis, lactic acidosis, chest x-ray showed a few patchy infiltrates and CT of the neck which showed an inflammatory/infectious process on the right side of the neck. Infectious diseases was consulted for additional recommendations. She is currently in the ER, awaiting a bed in ICU. Unable to provide history. Chart reviewed. No family at bedside. Called son and sister's listed phone numbers, they didn't answer. Discussed with RN at bedside. Unclear if she is on any immunosuppression. Review of Systems: unable to obtain due to vent, sedation Past History Past Medical History: hypertension, hypothyroidism Past Surgical History: No surgical history Social history: full code. denies: smoking, alcohol abuse, prescription drug abuse Family history: stroke (father) Medications and Allergies Allergies Allergy/AdvReac Type Severity Reaction Status Date / Time No Known Allergies Allergy Verified 08/18/18 09:04 Home Medications Medication Instructions Recorded Confirmed Last Taken Type Levothyroxine [Synthroid] 112 mcg PO QAM 02/01/19 02/01/19 Unknown History Lisinopril [Zestril TAB] 40 mg PO QDAY 02/01/19 02/01/19 Unknown History amLODIPine [Norvasc] 10 mg PO DAILY 02/01/19 02/01/19 Unknown History cloNIDine [Catapres] 1 mg PO QDAY 02/01/19 02/01/19 Unknown History Active Meds: Active Medications Acetaminophen (Tylenol) 650 mg PO Q4H PRN PRN Reason: Pain MILD(1-3)/Fever >100.5/VALENZUELA Albuterol (Proventil) 2.5 mg IH Q4HRT PRN PRN Reason: Shortness Of Breath Albuterol/Ipratropium (Duoneb *Not For Prn Use*) 1 ampul IH Q6HRT AMOL Last Admin: 02/01/19 13:39 Dose: 1 ampul Documented by: Hydrophilic Ointment (Vaseline Lip Therapy) 1 applic TP Q2HR PRN PRN Reason: Dry Lips Midazolam HCl 100 mg/ Sodium (Chloride) 100 mls @ 2 mls/hr IV TITR AMOL; P rotocol Last Titration: 02/01/19 14:51 Dose: 5 mg/hr, 5 mls/hr Documented by: Cefepime HCl (Maxipime/Ns 1 Gm/100 Ml) 1 gm in 100 mls @ 200 mls/hr IV Q12H AMOL; Protocol Last Admin: 02/01/19 12:10 Dose: 200 mls/hr Documented by: Midazolam HCl (Versed) 2 mg IV Q10MIN PRN PRN Reason: Sedation Last Admin: 02/01/19 11:42 Dose: 2 mg Documented by: Morphine Sulfate (Morphine) 2 mg IV Q4H PRN PRN Reason: Pain, Moderate (4-6) Multi-Ingred Cream/Lotion/Oil/Oint (Artificial Tears Ophth Oint) 1 applic OU Q4HR PRN PRN Reason: Dry Eye(s) Ondansetron HCl (Zofran) 4 mg IV Q8H PRN PRN Reason: Nausea And Vomiting Sodium Chloride (Sodium Chloride Flush Syringe 10 Ml) 10 ml IV BID AMOL Sodium Chloride (Sodium Chloride Flush Syringe 10 Ml) 10 ml IV PRN PRN PRN Reason: LINE FLUSH Physical Examination - Physical Exam Narrative exam: Physical Exam: Constitutional: sedated, intubated Head, Ears, Nose: Normocephalic, atraumatic. External ears, nose normal Eyes: Conjunctivae/corneas clear. No icterus. No ptosis. Neck: significant induration on the R side of the neck Oral: intubated Cardiovascular: S1, S2 normal. Respiratory: coarse sounds bilaterally GI: Soft, non-tender; bowel sounds normal. No peritoneal signs Musculoskeletal: No pedal edema, no cyanosis. Skin: No rash or abscess Hem/Lymphatic: No palpable cervical or supraclavicular nodes. No lymphangitis Psych: no agitation Neurological: sedated, intubated, on vent - Constitutional Vitals: Vital Signs Temp Pulse Resp BP Pulse Ox 101.8 F H 116 H 27 H 131/88 99 02/01/19 07:16 02/01/19 14:37 02/01/19 14:37 02/01/19 14:37 02/01/19 14:37 Temperature -Last 24 Hours Temperature 101.8 F Results - Labs CBC & Chem 7: 02/01/19 07:16 02/01/19 07:16 Labs: Abnormal lab results 02/01/19 02/01/19 02/01/19 Range/Units 07:16 07:16 07:16 WBC 17.7 H (4.5-11.0) K/mm3 RDW 16.9 H (13.2-15.2) % Plt Count 62 L (140-440) K/mm3 Seg Neuts % (Manual) 95.0 H (40.0-70.0) % Lymphocytes % (Manual) 0 L (13.4-35.0) % Seg Neutrophils # Man 16.8 H (1.8-7.7) K/mm3 Lymphocytes # (Manual) 0.0 L (1.2-5.4) K/mm3 PT 15.0 H (12.2-14.9) Sec. INR 1.21 H (0.87-1.13) Thrombin Time 20.0 H (15.1-19.6) Sec. POC ABG pH (7.35-7.45) POC ABG pO2 (80-105) Sodium 135 L (137-145) mmol/L Chloride 97.7 L (98-107) mmol/L Carbon Dioxide 19 L (22-30) mmol/L BUN 51 H (7-17) mg/dL Creatinine 4.5 H (0.7-1.2) mg/dL Glucose 112 H (65-100) mg/dL Lactic Acid (0.7-2.0) mmol/L Direct Bilirubin (0-0.2) mg/dL AST (5-40) units/L Troponin T 0.181 H* (0.00-0.029) ng/mL Total Protein (6.3-8.2) g/dL Albumin (3.9-5) g/dL LDL Cholesterol Direct 34 L (50-130) mg/dL HDL Cholesterol 20 L (40-59) mg/dL TSH (0.270-4.200) mlU/mL Urine WBC (Auto) (0.0-6.0) /HPF 02/01/19 02/01/19 02/01/19 Range/Units 07:29 07:29 07:43 WBC (4.5-11.0) K/mm3 RDW (13.2-15.2) % Plt Count (140-440) K/mm3 Seg Neuts % (Manual) (40.0-70.0) % Lymphocytes % (Manual) (13.4-35.0) % Seg Neutrophils # Man (1.8-7.7) K/mm3 Lymphocytes # (Manual) (1.2-5.4) K/mm3 PT (12.2-14.9) Sec. INR (0.87-1.13) Thrombin Time (15.1-19.6) Sec. POC ABG pH (7.35-7.45) POC ABG pO2 (80-105) Sodium (137-145) mmol/L Chloride (98-107) mmol/L Carbon Dioxide (22-30) mmol/L BUN (7-17) mg/dL Creatinine (0.7-1.2) mg/dL Glucose (65-100) mg/dL Lactic Acid 4.80 H* (0.7-2.0) mmol/L Direct Bilirubin 0.7 H (0-0.2) mg/dL AST 42 H (5-40) units/L Troponin T (0.00-0.029) ng/mL Total Protein 8.9 H (6.3-8.2) g/dL Albumin 2.3 L (3.9-5) g/dL LDL Cholesterol Direct (50-130) mg/dL HDL Cholesterol (40-59) mg/dL TSH 8.470 H (0.270-4.200) mlU/mL Urine WBC (Auto) (0.0-6.0) /HPF 02/01/19 02/01/19 02/01/19 Range/Units 09:45 11:32 13:50 WBC (4.5-11.0) K/mm3 RDW (13.2-15.2) % Plt Count (140-440) K/mm3 Seg Neuts % (Manual) (40.0-70.0) % Lymphocytes % (Manual) (13.4-35.0) % Seg Neutrophils # Man (1.8-7.7) K/mm3 Lymphocytes # (Manual) (1.2-5.4) K/mm3 PT (12.2-14.9) Sec. INR (0.87-1.13) Thrombin Time (15.1-19.6) Sec. POC ABG pH 7.289 L (7.35-7.45) POC ABG pO2 355 H (80-105) Sodium (137-145) mmol/L Chloride (98-107) mmol/L Carbon Dioxide (22-30) mmol/L BUN (7-17) mg/dL Creatinine (0.7-1.2) mg/dL Glucose (65-100) mg/dL Lactic Acid 4.10 H* (0.7-2.0) mmol/L Direct Bilirubin (0-0.2) mg/dL AST (5-40) units/L Troponin T (0.00-0.029) ng/mL Total Protein (6.3-8.2) g/dL Albumin (3.9-5) g/dL LDL Cholesterol Direct (50-130) mg/dL HDL Cholesterol (40-59) mg/dL TSH (0.270-4.200) mlU/mL Urine WBC (Auto) 16.0 H (0.0-6.0) /HPF - Imaging and Cardiology Chest x-ray: report reviewed, image reviewed (Chest x-ray shows few patchy infiltrates bilaterally.) CT Scan - head: report reviewed, image reviewed (CT scan of the neck without contrast shows an inflammatory process on the right side of the neck suggestive of possible cellulitis. CT head showed no acute abnormality) Assessment and Plan Cultures: 02/01/2019 blood culture: In process A/P: 53-year-old female with hypothyroidism, hypertension, ?autoimmune disease. Admitted with: 1) Severe sepsis: Leukocytosis, thrombocytopenia, lactic acidosis. Source appears to be the right neck induration / cellulitis / ?underlying abscess as well as bilateral pneumonia. 2) Right neck cellulitis and induration: ?abscess. CT neck was without contrast, hence limited eval of vasculature. Will get US of IJ, eval for any septic thrombophlebitis and abscess. Might need an MRI. 3) Bilateral pneumonia: sputum culture ordered. 4) Acute renal failure: renally dose abx 5) ?Autoimmune disease: need more history. Unclear if she is on any kind of immunosuppression. Check CHESTER, C3, C4, CRP, ESR. Recs: empiric IV Cefepime, Flagyl and Vancomycin, renally adjusted respiratory culture, CHESTER, C3, C4, CRP, ESR ordered Right neck doppler and ultrasound ordered Luis Lewis MD, FACP [facility] ([facility] M: [phone] O: [phone] F: [phone]
[2019-02-01] MEDS ORDERED: SODIUM CHLORIDE 0.9% 1000 ML 1,000 ML ONE (16:27)
[2019-02-01] MEDS ORDERED: SODIUM BICARB 8.4% 50 MEQ/50 ML SYRINGE IV ONE (16:46)
--- NOTE | 2019-02-01 17:10 | Consultation ---
Past History Past Medical History: hypertension, hypothyroidism Past Surgical History: No surgical history Social history: full code. denies: smoking, alcohol abuse, prescription drug abuse Family history: stroke (father) Medications and Allergies Allergies Allergy/AdvReac Type Severity Reaction Status Date / Time No Known Allergies Allergy Verified 08/18/18 09:04 Home Medications Medication Instructions Recorded Confirmed Last Taken Type Levothyroxine [Synthroid] 112 mcg PO QAM 02/01/19 02/01/19 Unknown History Lisinopril [Zestril TAB] 40 mg PO QDAY 02/01/19 02/01/19 Unknown History amLODIPine [Norvasc] 10 mg PO DAILY 02/01/19 02/01/19 Unknown History cloNIDine [Catapres] 1 mg PO QDAY 02/01/19 02/01/19 Unknown History Active Meds: Active Medications Acetaminophen (Tylenol) 650 mg PO Q4H PRN PRN Reason: Pain MILD(1-3)/Fever >100.5/VALENZUELA Albuterol (Proventil) 2.5 mg IH Q4HRT PRN PRN Reason: Shortness Of Breath Albuterol/Ipratropium (Duoneb *Not For Prn Use*) 1 ampul IH Q6HRT AMOL Last Admin: 02/01/19 13:39 Dose: 1 ampul Documented by: Hydrophilic Ointment (Vaseline Lip Therapy) 1 applic TP Q2HR PRN PRN Reason: Dry Lips Midazolam HCl 100 mg/ Sodium (Chloride) 100 mls @ 2 mls/hr IV TITR [facility]; Protocol Last Titration: 02/01/19 16:27 Dose: 4 mg/hr, 4 mls/hr Documented by: Cefepime HCl (Maxipime/Ns 1 Gm/100 Ml) 1 gm in 100 mls @ 200 mls/hr IV Q12H [facility]; Protocol Last Admin: 02/01/19 12:10 Dose: 200 mls/hr Documented by: Metronidazole (Flagyl 500 Mg/100 Ml) 500 mg in 100 mls @ 100 mls/hr IV Q8HR [facility]; Protocol Midazolam HCl (Versed) 2 mg IV Q10MIN PRN PRN Reason: Sedation Last Admin: 02/01/19 11:42 Dose: 2 mg Documented by: Morphine Sulfate (Morphine) 2 mg IV Q4H PRN PRN Reason: Pain, Moderate (4-6) Multi-Ingred Cream/Lotion/Oil/Oint (Artificial Tears Ophth Oint) 1 applic OU Q4HR PRN PRN Reason: Dry Eye(s) Ondansetron HCl (Zofran) 4 mg IV Q8H PRN PRN Reason: Nausea And Vomiting Sodium Bicarbonate (Sodium Bicarbonate 50meq Syringe) 50 meq IV ONCE ONE Stop: 02/01/19 16:47 Sodium Chloride (Sodium Chloride Flush Syringe 10 Ml) 10 ml IV BID AMOL Sodium Chloride (Sodium Chloride Flush Syringe 10 Ml) 10 ml IV PRN PRN PRN Reason: LINE FLUSH Physical Examination - Vital Signs Vital Signs: Vital Signs Temp Pulse Resp BP Pulse Ox 101.8 F H 144 H 44 H 90/60 89 02/01/19 07:16 02/01/19 07:16 02/01/19 07:16 02/01/19 07:16 02/01/19 07:16 Results - Laboratory Findings CBC and BMP: 02/01/19 07:16 02/01/19 07:16 Abnormal Lab Findings: Abnormal Labs 02/01/19 02/01/19 02/01/19 07:16 07:16 07:16 WBC 17.7 H RDW 16.9 H Plt Count 62 L Seg Neuts % (Manual) 95.0 H Lymphocytes % (Manual) 0 L Seg Neutrophils # Man 16.8 H Lymphocytes # (Manual) 0.0 L PT 15.0 H INR 1.21 H Thrombin Time 20.0 H POC ABG pH POC ABG pO2 Sodium 135 L Chloride 97.7 L Carbon Dioxide 19 L BUN 51 H Creatinine 4.5 H Glucose 112 H Lactic Acid Direct Bilirubin AST Troponin T 0.181 H* Total Protein Albumin LDL Cholesterol Direct 34 L HDL Cholesterol 20 L TSH Urine WBC (Auto) 02/01/19 02/01/19 02/01/19 07:29 07:29 07:43 WBC RDW Plt Count Seg Neuts % (Manual) Lymphocytes % (Manual) Seg Neutrophils # Man Lymphocytes # (Manual) PT INR Thrombin Time POC ABG pH POC ABG pO2 Sodium Chloride Carbon Dioxide BUN Creatinine Glucose Lactic Acid 4.80 H* Direct Bilirubin 0.7 H AST 42 H Troponin T Total Protein 8.9 H Albumin 2.3 L LDL Cholesterol Direct HDL Cholesterol TSH 8.470 H Urine WBC (Auto) 02/01/19 02/01/19 02/01/19 09:45 11:32 13:50 WBC RDW Plt Count Seg Neuts % (Manual) Lymphocytes % (Manual) Seg Neutrophils # Man Lymphocytes # (Manual) PT INR Thrombin Time POC ABG pH 7.289 L POC ABG pO2 355 H Sodium Chloride Carbon Dioxide BUN Creatinine Glucose Lactic Acid 4.10 H* Direct Bilirubin AST Troponin T Total Protein Albumin LDL Cholesterol Direct HDL Cholesterol TSH Urine WBC (Auto) 16.0 H 02/01/19 15:15 WBC RDW Plt Count Seg Neuts % (Manual) Lymphocytes % (Manual) Seg Neutrophils # Man Lymphocytes # (Manual) PT INR Thrombin Time POC ABG pH POC ABG pO2 Sodium Chloride Carbon Dioxide BUN Creatinine Glucose Lactic Acid 4.50 H* Direct Bilirubin AST Troponin T Total Protein Albumin LDL Cholesterol Direct HDL Cholesterol TSH Urine WBC (Auto) Assessment and Plan NEUROLOGY CONSULT REPORT. 53 YR OLD FEMALE WITH HIST OF HYPOTHYROIDISM,HTN WHO WAS FOUND CONFUSED WHEN SHE WENT TO DINNER WITH FAMILY MEMBERS. THIS MORNING SHE WAS UNRESPONSIVE AT BED SIDE WHEN EMS WAS CALLED. WHEN PATIENT WAS BROUGHT TO ER SHE WAS INTUBATED DUE TO RESPIRATORY DISTRESS. WORK UP INCLUDING CT SCAN OF THE NECK SHOWED RT SIDE OF THE NECK WITH A HUGE INFILTRATE AND EDEMA EXTENDING FROM RT MANDIBLE TO RT CLAVICLE. RADIOLOGIST SUGGESTED AN INFECTIVE /INFLAMMATORY PROCESS.LAB SHOWED VERY HIGH WBC COUNT WITH INCREASED NEUTROPHIL AND LACTIC ACIDOSIS, ABG SHOWED VERY LOW PH. CT SCAN OF THE BRAIN WAS UNREMARKABLE.PATIENT WAS STARTED ANTIBIOTICS AND ID HAS BEEN INVOLVED. PATIENT WAS GIVE FEW DOSES OF VERSED FOR AGITATION. PHYSICAL EXAMINATION. VERBALLY UNRESPONSIVE . RESPONDS TO PAINFUL STIMULI WITH FACIAL MILD FACIAL GRIMACING AND MOVEMENT OF EXTREMITIES. NO SPONTANEOUS MOVEMENT OF EXTREMITIES.PUPILS REACT TO LIGHT . CORNEAL REFLEX IS PRESENT.EXTRAOCULAR MOVEMENT IS INTACT. GENERALISED HYPOREFLEXIA WITH BILATERAL DOWN GOING TOES. IMPRESSION. SEPTIC METABOLIC ENCEPHALOPATHY. PATIENT IS CURRENTLY UNDER SIGNIFICANT SEDATION MAKING IT DIFFICULT TO ASSESS ACTUAL MENTALSTATUS. RECOMMEND. PLEASE SUBSTITUTE SEROQUEL 50 MG Q HR. FOR AGITATION INSTEAD OF VERSED. CONTINUE ANTIBIOTICS AND OTHER SUPPORTIVE CARE.
--- NOTE | 2019-02-01 17:46 | Consultation ---
History of Present Illness - Reason for Consult Consult date: 02/01/19 acute renal failure, metabolic acidosis - History of Present Illness Per hospital records as patient is intubated. Mrs. Jaquez is a 53-year-old female who presented to the ED with a chief complaint of altered mental status. Patient was reportedly out to dinner with friends and family yesterday evening and was observed to appear fatigued, withdrawn. Patient was also noted to have difficulty with fine motor skills and with gait. She was having difficulty expressing herself throughout the night and would continue to point at the menu. Upon returning home patient had difficulty going upstairs so EMS was called. EMS evaluated the patient who refused to come to the hospital. Subsequently, the patient went to bed and this morning the patient had decreased responsiveness and was subsequently brought to the ED via EMS. In the ED, the patient would open her eyes occasionally but did not answer questions verbally. CT was obtained and unremarkable for infarct; patient was febrile w/ temp 101.8 w/ WBC 17k. Labs also notable for SCr 4.5mg/dL prompting nephrology consultation. Past History Past Medical History: hypertension, hypothyroidism Past Surgical History: No surgical history Social history: full code. denies: smoking, alcohol abuse, prescription drug abuse Family history: stroke (father) Medications and Allergies Allergies Allergy/AdvReac Type Severity Reaction Status Date / Time No Known Allergies Allergy Verified 08/18/18 09:04 Home Medications Medication Instructions Recorded Confirmed Last Taken Type Levothyroxine [Synthroid] 112 mcg PO QAM 02/01/19 02/01/19 Unknown History Lisinopril [Zestril TAB] 40 mg PO QDAY 02/01/19 02/01/19 Unknown History amLODIPine [Norvasc] 10 mg PO DAILY 02/01/19 02/01/19 Unknown History cloNIDine [Catapres] 1 mg PO QDAY 02/01/19 02/01/19 Unknown History Active Meds: Active Medications Acetaminophen (Tylenol) 650 mg PO Q4H PRN PRN Reason: Pain MILD(1-3)/Fever >100.5/VALENZUEAL Albuterol (Proventil) 2.5 mg IH Q4HRT PRN PRN Reason: Shortness Of Breath Albuterol/Ipratropium (Duoneb *Not For Prn Use*) 1 ampul IH Q6HRT AMOL Last Admin: 02/01/19 13:39 Dose: 1 ampul Documented by: Hydrophilic Ointment (Vaseline Lip Therapy) 1 applic TP Q2HR PRN PRN Reason: Dry Lips Midazolam HCl 100 mg/ Sodium (Chloride) 100 mls @ 2 mls/hr IV TITR [facility]; Protocol Last Titration: 02/01/19 17:20 Dose: 5 mg/hr, 5 mls/hr Documented by: Cefepime HCl (Maxipime/Ns 1 Gm/100 Ml) 1 gm in 100 mls @ 200 mls/hr IV Q12H [facility]; Protocol Last Admin: 02/01/19 12:10 Dose: 200 mls/hr Documented by: Metronidazole (Flagyl 500 Mg/100 Ml) 500 mg in 100 mls @ 100 mls/hr IV Q8HR [facility]; Protocol Midazolam HCl (Versed) 2 mg IV Q10MIN PRN PRN Reason: Sedation Last Admin: 02/01/19 11:42 Dose: 2 mg Documented by: Morphine Sulfate (Morphine) 2 mg IV Q4H PRN PRN Reason: Pain, Moderate (4-6) Multi-Ingred Cream/Lotion/Oil/Oint (Artificial Tears Ophth Oint) 1 applic OU Q4HR PRN PRN Reason: Dry Eye(s) Ondansetron HCl (Zofran) 4 mg IV Q8H PRN PRN Reason: Nausea And Vomiting Sodium Chloride (Sodium Chloride Flush Syringe 10 Ml) 10 ml IV BID AMOL Sodium Chloride (Sodium Chloride Flush Syringe 10 Ml) 10 ml IV PRN PRN PRN Reason: LINE FLUSH Review of Systems ROS unobtainable: due to endotracheal tube Exam - Vital Signs Vital signs: Vital Signs Temp Pulse Resp BP Pulse Ox 101.8 F H 144 H 44 H 90/60 89 02/01/19 07:16 02/01/19 07:16 02/01/19 07:16 02/01/19 07:16 02/01/19 07:16 - General Appearance General appearance: well-developed, well-nourished, intubated EENT: other (ETT in place) Respiratory: Other Heart: regular, tachycardia, S1S2 Gastrointestinal: Present: normal, hypoactive bowel sounds. Absent: distended Integumentary: no rash, warm and dry Neurologic: other (sedated) Musculoskeletal: Present: other Results - Lab Results 02/01/19 07:16 02/01/19 07:16 Most recent lab results Calcium 8.5 mg/dL (8.4-10.2) 02/01/19 07:16 Assessment and Plan Impression: * Oliguric acute kidney injury secondary to sepsis related ATN vs other * Sepsis --CT Neck: inflammation on the right side of the neck suggestive of cellulitis * Acute encephalopathy * Acute respiratory failure * Metabolic acidosis secondary to lactic acidosis * ?Autoimmune disease * Microscopic hematuria * Proteinuria * Thrombocytopenia Plan: * Will review outpatient records to determine patient's baseline renal function * Continue conservative management for now. However, renal prognosis is guarded. Attempted to contact patient's son Jere Jaquez, but no answer. Contacted, Xiomy Ashergabby (family friend) who also tried to reach son (via three way) but unsuccessful. Per Chris Sheryl, multiple family members en route to [place]: patient's mother and patient's son, Timmy. Informed Mrs. Saucedo clinical condition from a renal standpoint and likelihood of patient requiring dialysis if renal function fails to improve. * Start bicarb gtt * Vent management per CCM * CHESTER, C3/C4 pending. Will also order ANCA * Blood cx are pending. Empiric abx per ID * Dose medications for renal function * Avoid potential nephrotoxic agents * Strict I/O
[2019-02-01] MEDS ORDERED: metroNIDAZOLE/NS 500 MG/100 ML 500 MG/100 ML BAG IV ONE (18:53)
[2019-02-01] MEDS: metroNIDAZOLE/NS 500 MG/100 ML 500 MG/100 ML BAG IV SCH (19:06)
[2019-02-01 20:01] LABS: Calcium 7.4 mg/dL (8.4-10.2)
[2019-02-01] MEDS: SODIUM BICARBONATE 150 MEQ in DEXTROSE 5% IN WATER 1,000 ML IV SCH (20:31)
--- NOTE | 2019-02-01 21:34 | Ultrasound Report ---
Ultrasound soft tissue neck INDICATION: Right neck pain and swelling TECHNIQUE: Grayscale and Doppler imaging of the right neck pain FINDINGS: Extensive adenopathy throughout the right jugular chain. No drainable fluid collection is a ppreciated IMPRESSION: Multiple enlarged nodes are identified within the right neck with severe overlying cellul itis. The largest node measures 1.3 cm in short axis. No drainable abscess appreciated at this time. Signer Name: Alvaro Flynn MD Signed: 02/01/2019 9:30 PM Workstation Name: [id number]
[2019-02-01] MEDS ORDERED: SUCCINYLCHOLINE CHLORIDE 200 MG/10 ML INJ MDV ONE (21:35)
[2019-02-02] MEDS: IPRATROPIUM/ALBUTEROL SULFATE 3 ML AMPUL.NEB IH SCH ×4 (02:00→20:53)
--- NOTE | 2019-02-02 02:27 | XRay Report ---
CHEST 1 VIEW INDICATION: follow up respiratory failure. COMPARISON: Yesterday FINDINGS: Support devices: Stable endotracheal tube. NG tube projects below the [id number] into the upper ab domen. Heart: Stable cardiomegaly. Lungs/Pleura: Clear lungs. Additional findings: None. IMPRESSION: 1. Support device change as above. Signer Name: Roverto Cagle MD Signed: 02/02/2019 2:22 AM Workstation Name: [id number]
[2019-02-02] MEDS: MIDAZOLAM 100 MG in SODIUM CHLORIDE 0.9% 80 ML IV SCH (05:59)
[2019-02-02 06:16] LABS: Hematocrit 37.3 % (30.3-42.9); Mean Corpuscular HGB Conc 32 % (30-34); Mean Corpuscular Volume 89 fl (79-97); Platelet Count 43 K/mm3 (140-440); Red Blood Count 4.17 M/mm3 (3.65-5.03); Red Cell Distribution Width 16.9 % (13.2-15.2)
[2019-02-02 06:36] LABS: Albumin 1.6 g/dL (3.9-5); Calcium 7.5 mg/dL (8.4-10.2)
[2019-02-02 07:01] LABS: Basophils % (Manual) 0 % (0.0-1.8); Eosinophils % (Manual) 0 % (0.0-4.3); Total Cells Counted 100
[2019-02-02 07:02] LABS: Anisocytosis 1+; Crenated RBC Few; Platelet Estimate Consistent w Auto
[2019-02-02] MEDS ORDERED: SODIUM CHLORIDE 0.9% 1000 ML 1,000 ML IV ONE (08:00)
[2019-02-02] MEDS ORDERED: SODIUM CHLORIDE 0.9% 1000 ML 1,000 ML ONE ×2 (08:16→17:59)
[2019-02-02] MEDS ORDERED: IPRATROPIUM/ALBUTEROL SULFATE 3 ML AMPUL.NEB IH ONE ×2 (09:28→14:29)
[2019-02-02] MEDS: metroNIDAZOLE/NS 500 MG/100 ML 500 MG/100 ML BAG IV SCH ×4 (09:30→21:57)
[2019-02-02] MEDS ORDERED: metroNIDAZOLE/NS 500 MG/100 ML 500 MG/100 ML BAG IV ONE ×2 (09:35→14:35)
[2019-02-02] MEDS: AZITHROMYCIN 500 MG in SODIUM CHLORIDE 0.9% 250ML 250 ML IV ONE (09:59)
--- NOTE | 2019-02-02 11:46 | Progress Note ---
Assessment and Plan Cultures: 02/01/2019 blood culture: GPC in 09/2102/01/2019 urine culture: no growth 02/01/2019 tracheal aspirate: usual resp. silvana A/P: 53-year-old female with hypothyroidism, hypertension, ?autoimmune disease. Admitted with: 1) Severe sepsis with GPC bacteremia: Leukocytosis, thrombocytopenia, lactic acidosis. Source appears to be the right neck induration / cellulitis as well as bilateral pneumonia. 2) Right neck cellulitis and induration v/s severe lymphadenopathy: CT neck was without contrast, hence limited eval of vasculature. Neck US revealed extensive R neck lymphadenopathy, no abscess. 3) Bilateral pneumonia: sputum culture shows resp silvana 4) Acute renal failure: renally dose abx. Nephrology following. 5) ?Autoimmune disease: need more history. Unclear if she is on any kind of immunosuppression. f/u CHESTER, C3, C4, ANCA. Recs: continue IV Cefepime, Flagyl and Vancomycin, renally adjusted f/u respiratory culture, CHESTER, C3, C4 TTE ordered repeat blood cultures ordered HIV, RPR, Bartonella serologies ordered (patient intubated, critically ill, unable to provide consent, no family available currently, ) once creatinine improves, may need CT chest, abdomen pelvis with IV contrast to evaluate for other lymphadenopathy Luis Lewis MD, FACP [facility] M: [phone] O: [phone] F: [phone] Subjective Date of service: 02/02/19 Interval history: Remains intubated. In ER, awaiting bed in ICU. Improving FiO2 requirements, down to 25%. sedated. Objective - Exam Narrative Exam: Physical Exam: Constitutional: sedated, intubated Head, Ears, Nose: Normocephalic, atraumatic. External ears, nose normal Eyes: Conjunctivae/corneas clear. No icterus. No ptosis. Neck: induration on the R side of the neck Oral: intubated Cardiovascular: S1, S2 normal. Respiratory: coarse sounds bilaterally GI: Soft, non-tender; bowel sounds normal. No peritoneal signs Musculoskeletal: No pedal edema, no cyanosis. Skin: No rash or abscess Hem/Lymphatic: No palpable cervical or supraclavicular nodes. No lymphangitis Psych: no agitation Neurological: sedated, intubated, on vent - Constitutional Vitals: Vital Signs Temp Pulse Resp BP Pulse Ox 98.4 F 111 H 20 111/73 99 02/01/19 21:20 02/02/19 09:27 02/02/19 09:27 02/02/19 08:00 02/02/19 08:25 Temperature -Last 24 Hours Temperature 98.4 F Temperature 99.8 F - Labs CBC & Chem 7: 02/02/19 05:53 02/02/19 05:53 Labs: Abnormal lab results 02/01/19 02/01/19 02/01/19 Range/Units 11:32 13:50 15:15 WBC (4.5-11.0) K/mm3 RDW (13.2-15.2) % Plt Count (140-440) K/mm3 Seg Neuts % (Manual) (40.0-70.0) % Lymphocytes % (Manual) (13.4-35.0) % Seg Neutrophils # Man (1.8-7.7) K/mm3 Lymphocytes # (Manual) (1.2-5.4) K/mm3 POC ABG pH 7.289 L (7.35-7.45) POC ABG pO2 355 H (80-105) Potassium (3.6-5.0) mmol/L Chloride (98-107) mmol/L Carbon Dioxide (22-30) mmol/L BUN (7-17) mg/dL Creatinine (0.7-1.2) mg/dL Glucose (65-100) mg/dL POC Glucose (70-105) Lactic Acid 4.10 H* 4.50 H* (0.7-2.0) mmol/L Calcium (8.4-10.2) mg/dL AST (5-40) units/L C-Reactive Protein (0.00-1.30) mg/dL Albumin (3.9-5) g/dL 02/01/19 02/01/19 02/01/19 Range/Units 16:20 17:03 17:04 WBC (4.5-11.0) K/mm3 RDW (13.2-15.2) % Plt Count (140-440) K/mm3 Seg Neuts % (Manual) (40.0-70.0) % Lymphocytes % (Manual) (13.4-35.0) % Seg Neutrophils # Man (1.8-7.7) K/mm3 Lymphocytes # (Manual) (1.2-5.4) K/mm3 POC ABG pH (7.35-7.45) POC ABG pO2 (80-105) Potassium (3.6-5.0) mmol/L Chloride (98-107) mmol/L Carbon Dioxide (22-30) mmol/L BUN (7-17) mg/dL Creatinine (0.7-1.2) mg/dL Glucose (65-100) mg/dL POC Glucose 115 H (70-105) Lactic Acid 2.80 H* (0.7-2.0) mmol/L Calcium (8.4-10.2) mg/dL AST (5-40) units/L C-Reactive Protein 32.30 H (0.00-1.30) mg/dL Albumin (3.9-5) g/dL 02/01/19 02/02/19 02/02/19 Range/Units 19:28 05:16 05:53 WBC 14.3 H (4.5-11.0) K/mm3 RDW 16.9 H (13.2-15.2) % Plt Count 43 L (140-440) K/mm3 Seg Neuts % (Manual) 93.0 H (40.0-70.0) % Lymphocytes % (Manual) 2.0 L (13.4-35.0) % Seg Neutrophils # Man 13.3 H (1.8-7.7) K/mm3 Lymphocytes # (Manual) 0.3 L (1.2-5.4) K/mm3 POC ABG pH (7.35-7.45) POC ABG pO2 148 H (80-105) Potassium (3.6-5.0) mmol/L Chloride 107.1 H (98-107) mmol/L Carbon Dioxide 18 L (22-30) mmol/L BUN 52 H (7-17) mg/dL Creatinine 3.1 H (0.7-1.2) mg/dL Glucose 120 H (65-100) mg/dL POC Glucose (70-105) Lactic Acid (0.7-2.0) mmol/L Calcium 7.4 L (8.4-10.2) mg/dL AST (5-40) units/L C-Reactive Protein (0.00-1.30) mg/dL Albumin (3.9-5) g/dL 02/02/19 Range/Units 05:53 WBC (4.5-11.0) K/mm3 RDW (13.2-15.2) % Plt Count (140-440) K/mm3 Seg Neuts % (Manual) (40.0-70.0) % Lymphocytes % (Manual) (13.4-35.0) % Seg Neutrophils # Man (1.8-7.7) K/mm3 Lymphocytes # (Manual) (1.2-5.4) K/mm3 POC ABG pH (7.35-7.45) POC ABG pO2 (80-105) Potassium 5.1 H (3.6-5.0) mmol/L Chloride (98-107) mmol/L Carbon Dioxide 21 L (22-30) mmol/L BUN 57 H (7-17) mg/dL Creatinine 3.3 H (0.7-1.2) mg/dL Glucose 147 H (65-100) mg/dL POC Glucose (70-105) Lactic Acid (0.7-2.0) mmol/L Calcium 7.5 L (8.4-10.2) mg/dL AST 51 H (5-40) units/L C-Reactive Protein (0.00-1.30) mg/dL Albumin 1.6 L (3.9-5) g/dL
[2019-02-02] MEDS: CEFEPIME/NS 1 GM/100 ML 1 GM/100 ML BAG IV SCH ×2 (12:00→12:32)
--- NOTE | 2019-02-02 13:13 | Consultation ---
History of Present Illness Consult date: 02/02/19 Requesting physician: TANIA NICOLE Reason for consult: dyspnea History of present illness: 53 yo admitted for altered mentation, ultimately requiring intubation in the ED. She is now sedated on Versed and cannot provide any history. + Neck swelling and positive blood cultures already. Further hx not obtainable. No family present. Active Medications Acetaminophen (Tylenol) 650 mg PO Q4H PRN PRN Reason: Pain MILD(1-3)/Fever >100.5/VALENZUELA Albuterol (Proventil) 2.5 mg IH Q4HRT PRN PRN Reason: Shortness Of Breath Albuterol/Ipratropium (Duoneb *Not For Prn Use*) 1 ampul IH Q6HRT AMOL Last Admin: 02/02/19 20:53 Dose: 1 ampul Documented by: Hydrophilic Ointment (Vaseline Lip Therapy) 1 applic TP Q2HR PRN PRN Reason: Dry Lips Last Admin: 02/02/19 16:50 Dose: 1 applic Documented by: Midazolam HCl 100 mg/ Sodium (Chloride) 100 mls @ 2 mls/hr IV TITR AMOL; Protocol Last Admin: 02/02/19 05:59 Dose: 5 mg/hr, 5 mls/hr Documented by: Cefepime HCl (Maxipime/Ns 1 Gm/100 Ml) 1 gm in 100 mls @ 200 mls/hr IV Q12H AMOL; Protocol Last Admin: 02/02/19 12:32 Dose: 200 mls/hr Documented by: Metronidazole (Flagyl 500 Mg/100 Ml) 500 mg in 100 mls @ 100 mls/hr IV Q8HR AMOL; Protocol Last Admin: 02/02/19 21:57 Dose: 100 mls/hr Documented by: Sodium Bicarbonate 150 meq/ (Dextrose) 1,150 mls @ 125 mls/hr IV DIRECT AMOL Last Admin: 02/02/19 19:49 Dose: 125 mls/hr Documented by: Midazolam HCl (Versed) 2 mg IV Q10MIN PRN PRN Reason: Sedation Last Admin: 02/01/19 11:42 Dose: 2 mg Documented by: Morphine Sulfate (Morphine) 2 mg IV Q4H PRN PRN Reason: Pain, Moderate (4-6) Multi-Ingred Cream/Lotion/Oil/Oint (Artificial Tears Ophth Oint) 1 applic OU Q4HR PRN PRN Reason: Dry Eye(s) Last Admin: 02/02/19 16:50 Dose: 1 applic Documented by: Ondansetron HCl (Zofran) 4 mg IV Q8H PRN PRN Reason: Nausea And Vomiting Sodium Chloride (Sodium Chloride Flush Syringe 10 Ml) 10 ml IV BID AMOL Last Admin: 02/02/19 21:58 Dose: 10 ml Documented by: Sodium Chloride (Sodium Chloride Flush Syringe 10 Ml) 10 ml IV PRN PRN PRN Reason: LINE FLUSH Past History Past Medical History: hypertension, hypothyroidism Past Surgical History: No surgical history Social history: full code. denies: smoking, alcohol abuse, prescription drug abuse Family history: stroke (father) Medications and Allergies Allergies Allergy/AdvReac Type Severity Reaction Status Date / Time No Known Allergies Allergy Verified 08/18/18 09:04 Home Medications Medication Instructions Recorded Confirmed Last Taken Type Levothyroxine [Synthroid] 112 mcg PO QAM 02/01/19 02/01/19 Unknown History Lisinopril [Zestril TAB] 40 mg PO QDAY 02/01/19 02/01/19 Unknown History amLODIPine [Norvasc] 10 mg PO DAILY 02/01/19 02/01/19 Unknown History cloNIDine [Catapres] 1 mg PO QDAY 02/01/19 02/01/19 Unknown History Active Meds: Active Medications Acetaminophen (Tylenol) 650 mg PO Q4H PRN PRN Reason: Pain MILD(1-3)/Fever >100.5/VALENZUELA Albuterol (Proventil) 2.5 mg IH Q4HRT PRN PRN Reason: Shortness Of Breath Albuterol/Ipratropium (Duoneb *Not For Prn Use*) 1 ampul IH Q6HRT [facility] Last Admin: 02/02/19 09:27 Dose: 1 ampul Documented by: Hydrophilic Ointment (Vaseline Lip Therapy) 1 applic TP Q2HR PRN PRN Reason: Dry Lips Midazolam HCl 100 mg/ Sodium (Chloride) 100 mls @ 2 mls/hr IV TITR AMOL; Protocol Last Admin: 02/02/19 05:59 Dose: 5 mg/hr, 5 mls/hr Documented by: Cefepime HCl (Maxipime/Ns 1 Gm/100 Ml) 1 gm in 100 mls @ 200 mls/hr IV Q12H AMOL; Protocol Last Admin: 02/02/19 12:32 Dose: 200 mls/hr Documented by: Metronidazole (Flagyl 500 Mg/100 Ml) 500 mg in 100 mls @ 100 mls/hr IV Q8HR AMOL; Protocol Last Admin: 02/02/19 09:54 Dose: Not Given Documented by: Sodium Bicarbonate 150 meq/ (Dextrose) 1,150 mls @ 125 mls/hr IV DIRECT AMOL Last Admin: 02/01/19 20:31 Dose: 125 mls/hr Documented by: Sodium Chloride (Nacl 0.9% 1000 Ml) 1,000 mls @ 100 mls/hr IV ONCE ONE Stop: 02/02/19 17:59 Last Admin: 02/02/19 08:50 Dose: 100 mls/hr Documented by: Midazolam HCl (Versed) 2 mg IV Q10MIN PRN PRN Reason: Sedation Last Admin: 02/01/19 11:42 Dose: 2 mg Documented by: Morphine Sulfate (Morphine) 2 mg IV Q4H PRN PRN Reason: Pain, Moderate (4-6) Multi-Ingred Cream/Lotion/Oil/Oint (Artificial Tears Ophth Oint) 1 applic OU Q4HR PRN PRN Reason: Dry Eye(s) Ondansetron HCl (Zofran) 4 mg IV Q8H PRN PRN Reason: Nausea And Vomiting Sodium Chloride (Sodium Chloride Flush Syringe 10 Ml) 10 ml IV BID [facility] Last Admin: 02/02/19 10:00 Dose: 10 ml Documented by: Sodium Chloride (Sodium Chloride Flush Syringe 10 Ml) 10 ml IV PRN PRN PRN Reason: LINE FLUSH Review of Systems All systems: negative Physical Examination Vital signs: Vital Signs Temp Pulse Resp BP Pulse Ox 101.8 F H 144 H 44 H 90/60 89 02/01/19 07:16 02/01/19 07:16 02/01/19 07:16 02/01/19 07:16 02/01/19 07:16 Vital Signs - 24 hr 02/01/19 02/02/19 02/02/19 23:19 00:00 00:45 Temperature Pulse Rate 105 H 108 H 108 H Pulse Rate [ Anterior Bilateral Throughout] Pulse Rate [ From Monitor] Respiratory 24 28 H Rate Respiratory Rate [Anterior Bilateral Throughout] Blood Pressure 119/74 125/81 Blood Pressure 104/67 [Right] O2 Sat by Pulse 100 99 99 Oximetry 02/02/19 02/02/19 02/02/19 00:57 01:00 02:00 Temperature Pulse Rate 107 H 110 H 105 H Pulse Rate [ 104 H Anterior Bilateral Throughout] Pulse Rate [ From Monitor] Respiratory 22 28 H 24 Rate Respiratory 20 Rate [Anterior Bilateral Throughout] Blood Pressure 131/73 106/73 Blood Pressure 125/81 [Right] O2 Sat by Pulse 100 100 99 Oximetry 02/02/19 02/02/19 02/02/19 02:22 03:00 04:00 Temperature Pulse Rate 104 H 108 H 107 H Pulse Rate [ Anterior Bilateral Throughout] Pulse Rate [ From Monitor] Respiratory 21 29 H 26 H Rate Respiratory Rate [Anterior Bilateral Throughout] Blood Pressure 126/82 121/79 Blood Pressure 118/77 [Right] O2 Sat by Pulse 100 99 100 Oximetry 02/02/19 02/02/19 02/02/19 05:00 05:13 06:00 Temperature Pulse Rate 106 H 101 H 109 H Pulse Rate [ Anterior Bilateral Throughout] Pulse Rate [ From Monitor] Respiratory 27 H 21 27 H Rate Respiratory Rate [Anterior Bilateral Throughout] Blood Pressure 123/76 123/76 Blood Pressure 123/76 [Right] O2 Sat by Pulse 99 100 98 Oximetry 02/02/19 02/02/19 02/02/19 07:01 07:30 08:00 Temperature Pulse Rate 107 H 106 H 105 H Pulse Rate [ Anterior Bilateral Throughout] Pulse Rate [ From Monitor] Respiratory 26 H 27 H 25 H Rate Respiratory Rate [Anterior Bilateral Throughout] Blood Pressure 111/77 103/63 113/65 Blood Pressure [Right] O2 Sat by Pulse 96 99 98 Oximetry 02/02/19 02/02/19 02/02/19 08:25 08:30 09:00 Temperature Pulse Rate 103 H 111 H Pulse Rate [ Anterior Bilateral Throughout] Pulse Rate [ From Monitor] Respiratory 20 22 29 H Rate Respiratory Rate [Anterior Bilateral Throughout] Blood Pressure 109/69 119/78 Blood Pressure [Right] O2 Sat by Pulse 99 99 99 Oximetry 02/02/19 02/02/19 02/02/19 09:27 09:30 10:00 Temperature Pulse Rate 111 H 115 H Pulse Rate [ 111 H Anterior Bilateral Throughout] Pulse Rate [ From Monitor] Respiratory 27 H 27 H Rate Respiratory 20 Rate [Anterior Bilateral Throughout] Blood Pressure 121/79 119/72 Blood Pressure [Right] O2 Sat by Pulse 98 98 Oximetry 02/02/19 02/02/19 02/02/19 10:33 11:01 11:31 Temperature Pulse Rate 107 H 108 H 109 H Pulse Rate [ Anterior Bilateral Throughout] Pulse Rate [ From Monitor] Respiratory 26 H 21 22 Rate Respiratory Rate [Anterior Bilateral Throughout] Blood Pressure 113/74 113/74 113/74 Blood Pressure [Right] O2 Sat by Pulse 95 97 100 Oximetry 02/02/19 02/02/19 02/02/19 12:00 12:30 12:58 Temperature 98.8 F Pulse Rate 111 H 112 H 112 H Pulse Rate [ Anterior Bilateral Throughout] Pulse Rate [ From Monitor] Respiratory 28 H 28 H 3 L Rate Respiratory Rate [Anterior Bilateral Throughout] Blood Pressure 125/85 131/88 129/89 Blood Pressure [Right] O2 Sat by Pulse 76 L 97 Oximetry 02/02/19 02/02/19 02/02/19 13:00 13:30 14:00 Temperature Pulse Rate 111 H 111 H 110 H Pulse Rate [ Anterior Bilateral Throughout] Pulse Rate [ 110 H From Monitor] Respiratory 22 21 23 Rate Respiratory Rate [Anterior Bilateral Throughout] Blood Pressure 129/89 127/84 136/87 Blood Pressure [Right] O2 Sat by Pulse 98 Oximetry 02/02/19 02/02/19 02/02/19 14:30 14:37 15:01 Temperature Pulse Rate 111 H 109 H Pulse Rate [ 108 H Anterior Bilateral Throughout] Pulse Rate [ From Monitor] Respiratory 28 H 13 Rate Respiratory 20 Rate [Anterior Bilateral Throughout] Blood Pressure 148/90 124/79 Blood Pressure [Right] O2 Sat by Pulse 96 99 Oximetry 02/02/19 02/02/19 02/02/19 15:30 16:00 16:30 Temperature Pulse Rate 108 H 109 H 111 H Pulse Rate [ Anterior Bilateral Throughout] Pulse Rate [ From Monitor] Respiratory 13 20 20 Rate Respiratory Rate [Anterior Bilateral Throughout] Blood Pressure 131/82 127/87 134/78 Blood Pressure [Right] O2 Sat by Pulse 100 Oximetry 02/02/19 02/02/19 02/02/19 17:00 17:30 17:46 Temperature Pulse Rate 114 H 114 H 110 H Pulse Rate [ Anterior Bilateral Throughout] Pulse Rate [ From Monitor] Respiratory 20 20 Rate Respiratory Rate [Anterior Bilateral Throughout] Blood Pressure 131/77 122/80 113/73 Blood Pressure [Right] O2 Sat by Pulse 99 100 Oximetry 02/02/19 02/02/19 02/02/19 18:00 20:00 20:53 Temperature 97.9 F Pulse Rate 118 H 115 H Pulse Rate [ Anterior Bilateral Throughout] Pulse Rate [ 112 H From Monitor] Respiratory 25 H Rate Respiratory Rate [Anterior Bilateral Throughout] Blood Pressure 118/82 130/82 Blood Pressure [Right] O2 Sat by Pulse 96 100 93 Oximetry 02/02/19 02/02/19 02/02/19 20:58 22:00 23:00 Temperature 98.2 F Pulse Rate 115 H Pulse Rate [ 108 H Anterior Bilateral Throughout] Pulse Rate [ 117 H From Monitor] Respiratory Rate Respiratory 25 H Rate [Anterior Bilateral Throughout] Blood Pressure Blood Pressure [Right] O2 Sat by Pulse 100 Oximetry General appearance: other (critically ill on ventilator, sedated) Eyes: non-icteric ENT: oropharynx moist Neck: supple Effort: normal Ascultation: Bilateral: other (coarse BS bilaterally) Cardiovascular: other (tachy, RR; no mrg) Gastrointestinal: normoactive bowel sounds, soft, non-tender, non-distended Integumentary: normal Extremities: no cyanosis, no edema, pink and warm unable to assess (due to sedation) other (unable to assess) Results - Laboratory Findings CBC and BMP: 02/02/19 05:53 02/02/19 05:53 ABG POC ABG pH 7.375 (7.35-7.45) 02/02/19 05:16 POC ABG pCO2 39.0 (35-45) 02/02/19 05:16 POC ABG pO2 148 (80-105) H 02/02/19 05:16 POC ABG HCO3 22.8 (22-26 mml/L) 02/02/19 05:16 POC ABG Total CO2 24 (23-27mmol/L) 02/02/19 05:16 POC ABG O2 Sat 99 02/02/19 05:16 PT/INR, D-dimer PT 15.0 Sec. (12.2-14.9) H 02/01/19 07:16 INR 1.21 (0.87-1.13) H 02/01/19 07:16 Abnormal lab findings: Abnormal Labs 02/01/19 02/01/19 02/01/19 07:16 07:16 07:16 WBC 17.7 H RDW 16.9 H Plt Count 62 L Seg Neuts % (Manual) 95.0 H Lymphocytes % (Manual) 0 L Seg Neutrophils # Man 16.8 H Lymphocytes # (Manual) 0.0 L PT 15.0 H INR 1.21 H Thrombin Time 20.0 H POC ABG pH POC ABG pO2 Sodium 135 L Potassium Chloride 97.7 L Carbon Dioxide 19 L BUN 51 H Creatinine 4.5 H Glucose 112 H POC Glucose Lactic Acid Calcium Direct Bilirubin AST Troponin T 0.181 H* C-Reactive Protein Total Protein Albumin LDL Cholesterol Direct 34 L HDL Cholesterol 20 L TSH Urine WBC (Auto) 02/01/19 02/01/19 02/01/19 07:29 07:29 07:43 WBC RDW Plt Count Seg Neuts % (Manual) Lymphocytes % (Manual) Seg Neutrophils # Man Lymphocytes # (Manual) PT INR Thrombin Time POC ABG pH POC ABG pO2 Sodium Potassium Chloride Carbon Dioxide BUN Creatinine Glucose POC Glucose Lactic Acid 4.80 H* Calcium Direct Bilirubin 0.7 H AST 42 H Troponin T C-Reactive Protein Total Protein 8.9 H Albumin 2.3 L LDL Cholesterol Direct HDL Cholesterol TSH 8.470 H Urine WBC (Auto) 02/01/19 02/01/19 02/01/19 09:45 11:32 13:50 WBC RDW Plt Count Seg Neuts % (Manual) Lymphocytes % (Manual) Seg Neutrophils # Man Lymphocytes # (Manual) PT INR Thrombin Time POC ABG pH 7.289 L POC ABG pO2 355 H Sodium Potassium Chloride Carbon Dioxide BUN Creatinine Glucose POC Glucose Lactic Acid 4.10 H* Calcium Direct Bilirubin AST Troponin T C-Reactive Protein Total Protein Albumin LDL Cholesterol Direct HDL Cholesterol TSH Urine WBC (Auto) 16.0 H 02/01/19 02/01/19 02/01/19 15:15 16:20 17:03 WBC RDW Plt Count Seg Neuts % (Manual) Lymphocytes % (Manual) Seg Neutrophils # Man Lymphocytes # (Manual) PT INR Thrombin Time POC ABG pH POC ABG pO2 Sodium Potassium Chloride Carbon Dioxide BUN Creatinine Glucose POC Glucose 115 H Lactic Acid 4.50 H* 2.80 H* Calcium Direct Bilirubin AST Troponin T C-Reactive Protein Total Protein Albumin LDL Cholesterol Direct HDL Cholesterol TSH Urine WBC (Auto) 02/01/19 02/01/19 02/02/19 17:04 19:28 05:16 WBC RDW Plt Count Seg Neuts % (Manual) Lymphocytes % (Manual) Seg Neutrophils # Man Lymphocytes # (Manual) PT INR Thrombin Time POC ABG pH POC ABG pO2 148 H Sodium Potassium Chloride 107.1 H Carbon Dioxide 18 L BUN 52 H Creatinine 3.1 H Glucose 120 H POC Glucose Lactic Acid Calcium 7.4 L Direct Bilirubin AST Troponin T C-Reactive Protein 32.30 H Total Protein Albumin LDL Cholesterol Direct HDL Cholesterol TSH Urine WBC (Auto) 02/02/19 02/02/19 05:53 05:53 WBC 14.3 H RDW 16.9 H Plt Count 43 L Seg Neuts % (Manual) 93.0 H Lymphocytes % (Manual) 2.0 L Seg Neutrophils # Man 13.3 H Lymphocytes # (Manual) 0.3 L PT INR Thrombin Time POC ABG pH POC ABG pO2 Sodium Potassium 5.1 H Chloride Carbon Dioxide 21 L BUN 57 H Creatinine 3.3 H Glucose 147 H POC Glucose Lactic Acid Calcium 7.5 L Direct Bilirubin AST 51 H Troponin T C-Reactive Protein Total Protein Albumin 1.6 L LDL Cholesterol Direct HDL Cholesterol TSH Urine WBC (Auto) - Diagnostic Findings Chest x-ray: report reviewed, image reviewed Assessment and Plan Imp: 1. Neck cellulitis 2. Bacteremia 3. Severe sepsis 4. DIANA 5. Hyperkalemia 6. Lactic acidosis 7. Acute respiratory failure, hypoxia 8. Metabolic encephalopathy 9. Thrombocytopenia Rec: 1. F/u cultures; ABX per ID 2. Bicarb drip 3. Hyperkalemia per renal 4. Keep sedated for now; PSV trials once underlying sepsis improves 5. SCDs, add Pepcid 6. Prognosis is guarded; no family present CCt 31 minutes
--- NOTE | 2019-02-02 13:47 | Progress Note ---
Assessment and Plan Assessment and plan: Septic shock - Source of infection is likely from the sore throat, CT of the neck showed inflammation/cellulitis - Patient had a fever of 101.8 - Lactic acid level was 4.8 - Patient is being treated according to sepsis protocol with cefepime, flagyl and vancomycin - Follow blood culture - ID consult appreciated Acute metabolic encephalopathy - CT head is negative, telemetry neurology consulted and doesn't think it is stroke - neurology consult appreciated Acute respiratory failure -Patient is intubated and on mechanical ventilation Type 2 [place] - Patient has elevated troponin level, could be due to her renal failure versus septic shock Acute on chronic renal failure -Nephrology following -ANCA, C3,C4 , CRP ordered Hypothyroidism - TSH 8.47 normal free T4 level - We'll resume Synthroid Coagulation abnormality - Likely due to septic shock UTI - Continue antibiotics - Urine culture Thrombocytopenia - Platelet count trended down from 62 to 43, but no active bleeding CODE Status; Full The high probability of a clinically significant, sudden or life threatening deterioration of the [CV, Neurology, renal] system(s) required my full and direct attention, intervention and personal management. The aggregate critical care time was [45] minutes. This time is in addition to time spent performing re ported procedures but includes the following: [x] Data Review and interpretation [x] Patient assessment and monitoring of vital signs [x] Documentation [x] Medication orders and management History Interval history: Patient was seen and evaluated his morning. Patient is sedated, intubated and on mechanical ventilation. Hospitalist Physical - Physical exam Narrative exam: Patient is in cardiopulmonary distress. The patient appeared well nourished and normally developed. Vital signs as documented. Head exam is unremarkable. No scleral icterus . Neck is without jugular venous distension, thyromegaly, or carotid bruits. Lungs; tachypnic, BBS. Cardiac exam reveals regular rate and Rhythm. Abdominal exam reveals normal bowel sounds, no masses, no organomegaly and no aortic enlargement. Extremities are nonedematous and both femoral and pedal pulses are normal. 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 - Constitutional Vitals: Temp Pulse Resp BP Pulse Ox 98.4 F 112 H 3 L 129/89 97 02/01/19 21:20 02/02/19 12:58 02/02/19 12:58 02/02/19 12:58 02/02/19 12:58 Results - Labs CBC & Chem 7: 02/02/19 05:53 02/02/19 05:53 Labs: Laboratory Last Values WBC 14.3 K/mm3 (4.5-11.0) H 02/02/19 05:53 RBC 4.17 M/mm3 (3.65-5.03) 02/02/19 05:53 Hgb 12.0 gm/dl (10.1-14.3) 02/02/19 05:53 Hct 37.3 % (30.3-42.9) 02/02/19 05:53 MCV 89 fl (79-97) 02/02/19 05:53 MCH 29 pg (28-32) 02/02/19 05:53 MCHC 32 % (30-34) 02/02/19 05:53 RDW 16.9 % (13.2-15.2) H 02/02/19 05:53 Plt Count 43 K/mm3 (140-440) L 02/02/19 05:53 Lymph % (Auto) [employer] Operator 02/02/19 05:53 [place] % (Auto) [employer] Operator 02/02/19 05:53 Eos % (Auto) [employer] 02/02/19 05:53 Baso % (Auto) [employer] 02/02/19 05:53 Lymph # [employer] 02/02/19 05:53 [place] # [employer] Operator 02/02/19 05:53 Eos # [employer] Operator 02/02/19 05:53 Baso # [employer] Operator 02/02/19 05:53 Add Manual Diff Complete 02/02/19 05:53 Total Counted 100 02/02/19 05:53 Seg Neutrophils % [employer] Operator 02/02/19 05:53 Seg Neuts % (Manual) 93.0 % (40.0-70.0) H 02/02/19 05:53 0 % 02/02/19 05:53 2.0 % (13.4-35.0) L 02/02/19 05:53 Reactive Lymphs % (Man) 0 % 02/02/19 05:53 4.0 % (0.0-7.3) 02/02/19 05:53 0 % (0.0-4.3) 02/02/19 05:53 0 % (0.0-1.8) 02/02/19 05:53 1.0 % 02/02/19 05:53 0 % 02/02/19 05:53 0 % 02/02/19 05:53 0 % 02/02/19 05:53 Nucleated RBC % Not Reportable 02/02/19 05:53 Seg Neutrophils # [employer] Operator 02/02/19 05:53 Seg Neutrophils # Man 13.3 K/mm3 (1.8-7.7) H 02/02/19 05:53 Band Neutrophils # 0.0 K/mm3 02/02/19 05:53 0.3 K/mm3 (1.2-5.4) L 02/02/19 05:53 Abs React Lymphs (Man) 0.0 K/mm3 02/02/19 05:53 0.6 K/mm3 (0.0-0.8) 02/02/19 05:53 0.0 K/mm3 (0.0-0.4) 02/02/19 05:53 0.0 K/mm3 (0.0-0.1) 02/02/19 05:53 0.1 K/mm3 02/02/19 05:53 0.0 K/mm3 02/02/19 05:53 0.0 K/mm3 02/02/19 05:53 Blast Cells # 0.0 K/mm3 02/02/19 05:53 WBC Morphology Not Reportable 02/02/19 05:53 Hypersegmented Neuts Not Reportable 02/02/19 05:53 Hyposegmented Neuts Not Reportable 02/02/19 05:53 Hypogranular Neuts Not Reportable 02/02/19 05:53 Cancelled 02/01/19 07:16 Not Reportable 02/02/19 05:53 Not Reportable 02/02/19 05:53 Not Reportable 02/02/19 05:53 Not Reportable 02/02/19 05:53 Not Reportable 02/02/19 05:53 Not Reportable 02/02/19 05:53 Consistent w auto 02/02/19 05:53 Not Reportable 02/02/19 05:53 Plt Clumps, EDTA Not Reportable 02/02/19 05:53 Not Reportable 02/02/19 05:53 Not Reportable 02/02/19 05:53 Not Reportable 02/02/19 05:53 Plt Morphology Comment Not Reportable 02/02/19 05:53 RBC Morphology Not Reportable 02/02/19 05:53 Dimorphic RBCs Not Reportable 02/02/19 05:53 Not Reportable 02/02/19 05:53 Not Reportable 02/02/19 05:53 Not Reportable 02/02/19 05:53 Cancelled 02/01/19 07:16 1+ 02/02/19 05:53 Not Reportable 02/02/19 05:53 Not Reportable 02/02/19 05:53 Not Reportable 02/02/19 05:53 Not Reportable 02/02/19 05:53 Not Reportable 02/02/19 05:53 Not Reportable 02/02/19 05:53 Not Reportable 02/02/19 05:53 Not Reportable 02/02/19 05:53 Cancelled 02/01/19 07:16 Not Reportable 02/02/19 05:53 Not Reportable 02/02/19 05:53 Not Reportable 02/02/19 05:53 Not Reportable 02/02/19 05:53 Not Reportable 02/02/19 05:53 Few 02/02/19 05:53 Not Reportable 02/02/19 05:53 Acanthocytes (Spur) Not Reportable 02/02/19 05:53 Rouleaux Not Reportable 02/02/19 05:53 Not Reportable 02/02/19 05:53 Not Reportable 02/02/19 05:53 Not Reportable 02/02/19 05:53 ESR 76 mm/Hr (0-20) 02/01/19 16:51 Not Reportable 02/02/19 05:53 Hem Pathologist Commnt No 02/02/19 05:53 PT 15.0 Sec. (12.2-14.9) H 02/01/19 07:16 INR 1.21 (0.87-1.13) H 02/01/19 07:16 APTT 34.8 Sec. (24.2-36.6) 02/01/19 07:16 20.0 Sec. (15.1-19.6) H 02/01/19 07:16 POC ABG pH 7.375 (7.35-7.45) 02/02/19 05:16 POC ABG pCO2 39.0 (35-45) 02/02/19 05:16 POC ABG pO2 148 (80-105) H 02/02/19 05:16 POC ABG HCO3 22.8 (22-26 mml/L) 02/02/19 05:16 POC ABG Total CO2 24 (23-27mmol/L) 02/02/19 05:16 POC ABG O2 Sat 99 02/02/19 05:16 POC ABG Base Excess -2 ((-2) - (+3)mmol/L) 02/02/19 05:16 35 % 02/02/19 05:16 Sodium 139 mmol/L (137-145) 02/02/19 05:53 Potassium 5.1 mmol/L (3.6-5.0) H 02/02/19 05:53 Chloride 103.1 mmol/L (98-107) 02/02/19 05:53 Carbon Dioxide 21 mmol/L (22-30) L 02/02/19 05:53 20 mmol/L 02/02/19 05:53 BUN 57 mg/dL (7-17) H 02/02/19 05:53 3.3 mg/dL (0.7-1.2) H 02/02/19 05:53 Estimated GFR 18 ml/min 02/02/19 05:53 17 % 02/02/19 05:53 Glucose 147 mg/dL (65-100) H 02/02/19 05:53 POC Glucose 115 (70-105) H 02/01/19 16:20 Lactic Acid 1.40 mmol/L (0.7-2.0) 02/01/19 20:57 Calcium 7.5 mg/dL (8.4-10.2) L 02/02/19 05:53 0.90 mg/dL (0.1-1.2) 02/02/19 05:53 0.7 mg/dL (0-0.2) H 02/01/19 07:29 0.5 mg/dL 02/01/19 07:29 AST 51 units/L (5-40) H 02/02/19 05:53 ALT 16 units/L (7-56) 02/02/19 05:53 76 units/L (35-129) 02/02/19 05:53 0.181 ng/mL (0.00-0.029) H* 02/01/19 07:16 32.30 mg/dL (0.00-1.30) H 02/01/19 17:04 8.0 g/dL (6.3-8.2) 02/02/19 05:53 1.6 g/dL (3.9-5) L 02/02/19 05:53 0.3 % 02/02/19 05:53 Triglycerides 95 mg/dL (2-149) 02/01/19 07:16 Cholesterol 75 mg/dL (50-199) 02/01/19 07:16 34 mg/dL (50-130) L 02/01/19 07:16 20 mg/dL (40-59) L 02/01/19 07:16 3.75 % 02/01/19 07:16 TSH 8.470 mlU/mL (0.270-4.200) H 02/01/19 07:43 Free T4 1.08 ng/dL (0.76-1.46) 02/01/19 07:43 Sara (Yellow) 02/01/19 09:45 Cloudy (Clear) 02/01/19 09:45 5.0 (5.0-7.0) 02/01/19 09:45 Ur Specific [place] 1.019 (1.003-1.030) 02/01/19 09:45 >500 mg/dL (Negative) 02/01/19 09:45 Neg mg/dL (Negative) 02/01/19 09:45 Neg mg/dL (Negative) 02/01/19 09:45 Mod (Negative) 02/01/19 09:45 Neg (Negative) 02/01/19 09:45 Neg (Negative) 02/01/19 09:45 < 2.0 mg/dL (<2.0) 02/01/19 09:45 Ur Leukocyte Esterase Neg (Negative) 02/01/19 09:45 16.0 /HPF (0.0-6.0) H 02/01/19 09:45 77.0 /HPF (0.0-6.0) 02/01/19 09:45 U Epithel Cells (Auto) 2.0 /HPF (0-13.0) 02/01/19 09:45 Amorphous Crystals 1+ 02/01/19 09:45 Few /HPF 02/01/19 09:45 Active Medications - Current Medications Current Medications: Generic Name Dose Route Start Last Admin Trade Name Freq PRN Reason Stop Dose Admin Acetaminophen 650 mg 02/01/19 10:47 Tylenol PO Q4H PRN Pain MILD(1-3)/Fever >100.5/VALENZUELA Albuterol 2.5 mg 02/01/19 10:47 Proventil IH Q4HRT PRN Shortness Of Breath Albuterol/Ipratropium 1 ampul 02/01/19 12:00 02/02/19 09:27 Duoneb *Not For Prn Use* IH 1 ampul Q6HRT AMOL Administration Hydrophilic Ointment 1 applic 02/01/19 11:09 Vaseline Lip Therapy TP Q2HR PRN Dry Lips Midazolam HCl 100 mg/ Sodium 100 mls @ 2 mls/hr 02/01/19 12:00 02/02/19 05:59 Chloride IV 5 mg/hr TITR AMOL 5 mls/hr Administration Protocol 2 MG/HR Cefepime HCl 1 gm in 100 mls @ 200 mls/hr 02/01/19 12:00 02/02/19 12:32 Maxipime/Ns 1 Gm/100 Ml IV 200 mls/hr Q12H AMOL Administration Protocol Metronidazole 500 mg in 100 mls @ 100 mls/hr 02/01/19 17:00 02/02/19 09:54 Flagyl 500 Mg/100 Ml IV Not Given Q8HR AMOL Protocol Sodium Bicarbonate 150 meq/ 1,150 mls @ 125 mls/hr 02/01/19 20:00 02/01/19 20:31 Dextrose IV 125 mls/hr DIRECT AMOL Administration Sodium Chloride 1,000 mls @ 100 mls/hr 02/02/19 08:00 02/02/19 08:50 Nacl 0.9% 1000 Ml IV 02/02/19 17:59 100 mls/hr ONCE ONE Administration Midazolam HCl 2 mg 02/01/19 11:09 02/01/19 11:42 Versed IV 2 mg Q10MIN PRN Administration Sedation Morphine Sulfate 2 mg 02/01/19 10:47 Morphine IV Q4H PRN Pain, Moderate (4-6) Multi-Ingred Cream/Lotion/Oil/Oint 1 applic 02/01/19 11:09 Artificial Tears Ophth Oint OU Q4HR PRN Dry Eye(s) Ondansetron HCl 4 mg 02/01/19 10:47 Zofran IV Q8H PRN Nausea And Vomiting Sodium Chloride 10 ml 02/01/19 22:00 02/02/19 10:00 Sodium Chloride Flush Syringe 10 Ml IV 10 ml BID AMOL Administration Sodium Chloride 10 ml 02/01/19 10:47 Sodium Chloride Flush Syringe 10 Ml IV PRN PRN LINE FLUSH
--- NOTE | 2019-02-02 13:48 | Progress Note ---
Assessment and Plan Impression: * Oliguric acute kidney injury secondary to sepsis related ATN vs other --SCr 1.22mg/dl in Sep 2017 * Sepsis --CT Neck: inflammation on the right side of the neck suggestive of cellulitis * Acute encephalopathy * Acute respiratory failure * Metabolic acidosis secondary to lactic acidosis * ?Autoimmune disease * Microscopic hematuria * Proteinuria * Thrombocytopenia Plan: * Renal function improved since admission * Continue conservative management for now * Continue IVF - note IMS changed fluid from bicarb gtt to NS * Vent management per CCM * [place], C3/C4, ANCA pending * Empiric abx per ID * Dose medications for renal function * Avoid potential nephrotoxic agents * Strict I/O Subjective Date of service: 02/02/19 Interval history: No acute events overnight Objective - Vital Signs Vital signs: Vital Signs - 12hr 02/02/19 02/02/19 02/02/19 02:00 02:22 03:00 Pulse Rate 105 H 104 H 108 H Pulse Rate [ 104 H Anterior Bilateral Throughout] Respiratory 24 21 29 H Rate Respiratory 20 Rate [Anterior Bilateral Throughout] Blood Pressure 106/73 126/82 Blood Pressure 118/77 [Right] O2 Sat by Pulse 99 100 99 Oximetry 02/02/19 02/02/19 02/02/19 04:00 05:00 05:13 Pulse Rate 107 H 106 H 101 H Pulse Rate [ Anterior Bilateral Throughout] Respiratory 26 H 27 H 21 Rate Respiratory Rate [Anterior Bilateral Throughout] Blood Pressure 121/79 123/76 Blood Pressure 123/76 [Right] O2 Sat by Pulse 100 99 100 Oximetry 02/02/19 02/02/19 02/02/19 06:00 07:01 07:30 Pulse Rate 109 H 107 H 106 H Pulse Rate [ Anterior Bilateral Throughout] Respiratory 27 H 26 H 27 H Rate Respiratory Rate [Anterior Bilateral Throughout] Blood Pressure 123/76 111/77 103/63 Blood Pressure [Right] O2 Sat by Pulse 98 96 99 Oximetry 02/02/19 02/02/19 02/02/19 08:00 08:25 09:27 Pulse Rate 105 H Pulse Rate [ 111 H Anterior Bilateral Throughout] Respiratory 3 L 20 Rate Respiratory 20 Rate [Anterior Bilateral Throughout] Blood Pressure 111/73 Blood Pressure [Right] O2 Sat by Pulse 97 99 Oximetry 02/02/19 12:58 Pulse Rate 112 H Pulse Rate [ Anterior Bilateral Throughout] Respiratory 3 L Rate Respiratory Rate [Anterior Bilateral Throughout] Blood Pressure 129/89 Blood Pressure [Right] O2 Sat by Pulse 97 Oximetry - General Appearance General appearance: well-developed, well-nourished, intubated EENT: ATNC, other (ETT in place) Respiratory: Present: Other (coarse BS) Cardiology: regular, S1S2 Gastrointestinal: normal, no tenderness, no distended Integumentary: no rash, warm and dry Musculoskeletal: other (no edema) - Lab 02/03/19 03:30 02/03/19 03:30 Most recent lab results Calcium 7.5 mg/dL (8.4-10.2) L 02/02/19 05:53 Medications & Allergies - Medications Allergies/Adverse Reactions: Allergies No Known Allergies Allergy (Verified 08/18/18 09:04) Home Medications: Home Medications Medication Instructions Recorded Confirmed Last Taken Type Levothyroxine [Synthroid] 112 mcg PO QAM 02/01/19 02/01/19 Unknown History Lisinopril [Zestril TAB] 40 mg PO QDAY 02/01/19 02/01/19 Unknown History amLODIPine [Norvasc] 10 mg PO DAILY 02/01/19 02/01/19 Unknown History cloNIDine [Catapres] 1 mg PO QDAY 02/01/19 02/01/19 Unknown History Active Medications: Generic Name Dose Route Start Last Admin Trade Name Freq PRN Reason Stop Dose Admin Acetaminophen 650 mg 02/01/19 10:47 Tylenol PO Q4H PRN Pain MILD(1-3)/Fever >100.5/VALENZUELA Albuterol 2.5 mg 02/01/19 10:47 Proventil IH Q4HRT PRN Shortness Of Breath Albuterol/Ipratropium 1 ampul 02/01/19 12:00 02/02/19 09:27 Duoneb *Not For Prn Use* IH 1 ampul Q6HRT AMOL Administration Hydrophilic Ointment 1 applic 02/01/19 11:09 Vaseline Lip Therapy TP Q2HR PRN Dry Lips Midazolam HCl 100 mg/ Sodium 100 mls @ 2 mls/hr 02/01/19 12:00 02/02/19 05:59 Chloride IV 5 mg/hr TITR AMOL 5 mls/hr Administration Protocol 2 MG/HR Cefepime HCl 1 gm in 100 mls @ 200 mls/hr 02/01/19 12:00 02/02/19 12:32 Maxipime/Ns 1 Gm/100 Ml IV 200 mls/hr Q12H AMOL Administration Protocol Metronidazole 500 mg in 100 mls @ 100 mls/hr 02/01/19 17:00 02/02/19 09:54 Flagyl 500 Mg/100 Ml IV Not Given Q8HR AMOL Protocol Sodium Bicarbonate 150 meq/ 1,150 mls @ 125 mls/hr 02/01/19 20:00 02/01/19 20:31 Dextrose IV 125 mls/hr DIRECT AMOL Administration Sodium Chloride 1,000 mls @ 100 mls/hr 02/02/19 08:00 02/02/19 08:50 Nacl 0.9% 1000 Ml IV 02/02/19 17:59 100 mls/hr ONCE ONE Administration Midazolam HCl 2 mg 02/01/19 11:09 02/01/19 11:42 Versed IV 2 mg Q10MIN PRN Administration Sedation Morphine Sulfate 2 mg 02/01/19 10:47 Morphine IV Q4H PRN Pain, Moderate (4-6) Multi-Ingred Cream/Lotion/Oil/Oint 1 applic 02/01/19 11:09 Artificial Tears Ophth Oint OU Q4HR PRN Dry Eye(s) Ondansetron HCl 4 mg 02/01/19 10:47 Zofran IV Q8H PRN Nausea And Vomiting Sodium Chloride 10 ml 02/01/19 22:00 02/02/19 10:00 Sodium Chloride Flush Syringe 10 Ml IV 10 ml BID AMOL Administration Sodium Chloride 10 ml 02/01/19 10:47 Sodium Chloride Flush Syringe 10 Ml IV PRN PRN LINE FLUSH
[2019-02-02] MEDS ORDERED: LIP THERAPY VASELINE TP ONE (16:46)
[2019-02-02] MEDS ORDERED: MINERAL OIL/PETROLATUM, WHITE OPHTH OINT 3.5 GM ONE (16:46)
[2019-02-02] MEDS: LIP THERAPY VASELINE TP PRN (16:50)
[2019-02-02] MEDS: MINERAL OIL/PETROLATUM, WHITE OPHTH OINT 3.5 GM OU PRN (16:50)
[2019-02-02] MEDS: SODIUM BICARBONATE 150 MEQ in DEXTROSE 5% IN WATER 1,000 ML IV SCH (19:49)
[2019-02-02 20:59] LABS: Hepatitis B Surface Antigen Non-Reactive (Negative); Hepatitis C Virus Antibody Non-Reactive (NonReactive)
[2019-02-03] MEDS: CEFEPIME/NS 1 GM/100 ML 1 GM/100 ML BAG IV SCH ×2 (00:29→12:11)
[2019-02-03] MEDS: IPRATROPIUM/ALBUTEROL SULFATE 3 ML AMPUL.NEB IH SCH ×4 (01:33→19:16)
[2019-02-03] MEDS: MIDAZOLAM 100 MG in SODIUM CHLORIDE 0.9% 80 ML IV SCH (01:48)
--- NOTE | 2019-02-03 03:30 | XRay Report ---
CHEST 1 VIEW 2:00 AM INDICATION / CLINICAL INFORMATION: Follow-up respiratory failure. COMPARISON: Yesterday. FINDINGS: SUPPORT DEVICES: The positions of the endotracheal and nasogastric tubes have not changed. HEART / MEDIASTINUM: Unchanged. LUNGS / PLEURA: There is patchy parenchymal disease in both lower lung zones, right greater than left , slightly increased. No pneumothorax. ADDITIONAL FINDINGS: No significant additional findings. IMPRESSION: Mild increase in parenchymal disease in both lower lung zones since yesterday. Signer Name: Krunal Crowder MD Signed: 02/03/2019 3:26 AM Workstation Name: [id number]
[2019-02-03] MEDS: ACETAMINOPHEN 325 MG TAB PO PRN ×2 (03:58→19:51)
[2019-02-03 04:33] LABS: Calcium 7.2 mg/dL (8.4-10.2)
[2019-02-03 05:03] LABS: Hematocrit 46.2 % (30.3-42.9); Hemoglobin 14.9 gm/dl (10.1-14.3); Mean Corpuscular HGB Conc 32 % (30-34); Mean Corpuscular Volume 90 fl (79-97); Red Blood Count 5.16 M/mm3 (3.65-5.03)
[2019-02-03] MEDS: metroNIDAZOLE/NS 500 MG/100 ML 500 MG/100 ML BAG IV SCH ×3 (06:02→22:13)
[2019-02-03 06:49] LABS: Platelet Count 18 K/mm3 (140-440)
[2019-02-03] MEDS: SODIUM BICARBONATE 150 MEQ in DEXTROSE 5% IN WATER 1,000 ML IV SCH ×2 (08:00→19:59)
[2019-02-03] MEDS ORDERED: VANCOMYCIN 1,250 MG in SODIUM CHLORIDE 0.9% 250ML 250 ML IV ONE (10:00)
[2019-02-03] MEDS: FAMOTIDINE 20 MG/2 ML INJ IV SCH (10:30)
--- NOTE | 2019-02-03 11:08 | Progress Note ---
Assessment and Plan - Patient Problems (1) Acute respiratory failure Current Visit: Yes Status: Acute (2) Cellulitis, neck Current Visit: Yes Status: Acute (3) Thrombocytopenia Current Visit: Yes Status: Acute (4) Acute renal failure Current Visit: Yes Status: Acute (5) Altered mental status Current Visit: Yes Status: Acute (6) Encephalopathy Current Visit: Yes Status: Acute (7) Pneumonia Current Visit: Yes Status: Acute Subjective Interval history: Still on vent On AC 25%,450, 20 MV11.9 on versed drip Objective Vital Signs - 12hr 02/02/19 02/02/19 02/02/19 23:10 23:20 23:30 Temperature Pulse Rate 118 H 116 H 121 H Pulse Rate [ Anterior Bilateral Throughout] Pulse Rate [ From Monitor] Respiratory 27 H 27 H 26 H Rate Respiratory Rate [Anterior Bilateral Throughout] Blood Pressure 122/81 122/81 122/81 O2 Sat by Pulse 97 97 97 Oximetry 02/02/19 02/02/19 02/03/19 23:40 23:50 00:00 Temperature Pulse Rate 121 H 120 H 122 H Pulse Rate [ Anterior Bilateral Throughout] Pulse Rate [ From Monitor] Respiratory 29 H 22 29 H Rate Respiratory Rate [Anterior Bilateral Throughout] Blood Pressure 122/81 122/81 125/76 O2 Sat by Pulse 98 96 94 Oximetry 02/03/19 02/03/19 02/03/19 00:10 00:20 00:30 Temperature Pulse Rate 121 H 121 H 115 H Pulse Rate [ Anterior Bilateral Throughout] Pulse Rate [ From Monitor] Respiratory 30 H 31 H 21 Rate Respiratory Rate [Anterior Bilateral Throughout] Blood Pressure 125/76 125/76 125/76 O2 Sat by Pulse 98 98 98 Oximetry 02/03/19 02/03/19 02/03/19 00:40 00:46 00:50 Temperature Pulse Rate 114 H 119 H 121 H Pulse Rate [ Anterior Bilateral Throughout] Pulse Rate [ From Monitor] Respiratory 20 24 Rate Respiratory Rate [Anterior Bilateral Throughout] Blood Pressure 125/76 125/76 125/76 O2 Sat by Pulse 97 98 98 Oximetry 02/03/19 02/03/19 02/03/19 01:00 01:10 01:20 Temperature Pulse Rate 120 H 118 H 119 H Pulse Rate [ Anterior Bilateral Throughout] Pulse Rate [ From Monitor] Respiratory 25 H 23 28 H Rate Respiratory Rate [Anterior Bilateral Throughout] Blood Pressure 119/79 119/79 119/79 O2 Sat by Pulse 96 97 97 Oximetry 02/03/19 02/03/19 02/03/19 01:30 01:40 01:43 Temperature Pulse Rate 121 H 118 H Pulse Rate [ 121 H Anterior Bilateral Throughout] Pulse Rate [ From Monitor] Respiratory 31 H 29 H Rate Respiratory 25 H Rate [Anterior Bilateral Throughout] Blood Pressure 119/79 119/79 O2 Sat by Pulse 97 100 Oximetry 02/03/19 02/03/19 02/03/19 01:50 02:00 02:03 Temperature Pulse Rate 123 H 114 H Pulse Rate [ Anterior Bilateral Throughout] Pulse Rate [ 110 H From Monitor] Respiratory 26 H 20 Rate Respiratory Rate [Anterior Bilateral Throughout] Blood Pressure 119/79 125/76 O2 Sat by Pulse 98 98 100 Oximetry 02/03/19 02/03/19 02/03/19 02:10 02:20 02:30 Temperature Pulse Rate 118 H 117 H 123 H Pulse Rate [ Anterior Bilateral Throughout] Pulse Rate [ From Monitor] Respiratory 20 20 32 H Rate Respiratory Rate [Anterior Bilateral Throughout] Blood Pressure 125/76 125/76 125/76 O2 Sat by Pulse 95 96 97 Oximetry 02/03/19 02/03/19 02/03/19 02:40 02:50 03:00 Temperature Pulse Rate 118 H 118 H 116 H Pulse Rate [ Anterior Bilateral Throughout] Pulse Rate [ From Monitor] Respiratory 34 H 63 H 30 H Rate Respiratory Rate [Anterior Bilateral Throughout] Blood Pressure 125/76 125/76 118/67 O2 Sat by Pulse 96 94 93 Oximetry 02/03/19 02/03/19 02/03/19 03:10 03:20 03:30 Temperature 100.4 F H Pulse Rate 121 H 116 H 113 H Pulse Rate [ Anterior Bilateral Throughout] Pulse Rate [ From Monitor] Respiratory 28 H 22 11 L Rate Respiratory Rate [Anterior Bilateral Throughout] Blood Pressure 118/67 118/67 118/67 O2 Sat by Pulse 95 95 95 Oximetry 02/03/19 02/03/19 02/03/19 03:40 03:42 03:50 Temperature 100.4 F H Pulse Rate 119 H 115 H Pulse Rate [ Anterior Bilateral Throughout] Pulse Rate [ From Monitor] Respiratory 15 24 Rate Respiratory Rate [Anterior Bilateral Throughout] Blood Pressure 118/67 118/67 O2 Sat by Pulse 96 96 Oximetry 02/03/19 02/03/19 02/03/19 04:00 04:10 04:20 Temperature Pulse Rate 117 H 112 H 113 H Pulse Rate [ Anterior Bilateral Throughout] Pulse Rate [ 112 H From Monitor] Respiratory 21 16 16 Rate Respiratory Rate [Anterior Bilateral Throughout] Blood Pressure 121/77 121/77 121/77 O2 Sat by Pulse 97 97 96 Oximetry 02/03/19 02/03/19 02/03/19 04:30 04:40 04:50 Temperature Pulse Rate 111 H 113 H 110 H Pulse Rate [ Anterior Bilateral Throughout] Pulse Rate [ From Monitor] Respiratory 16 18 16 Rate Respiratory Rate [Anterior Bilateral Throughout] Blood Pressure 121/77 121/77 121/77 O2 Sat by Pulse 97 97 97 Oximetry 02/03/19 02/03/19 02/03/19 05:00 05:10 05:20 Temperature Pulse Rate 112 H 114 H 113 H Pulse Rate [ Anterior Bilateral Throughout] Pulse Rate [ From Monitor] Respiratory 16 23 18 Rate Respiratory Rate [Anterior Bilateral Throughout] Blood Pressure 120/72 120/72 121/77 O2 Sat by Pulse 95 97 96 Oximetry 02/03/19 02/03/19 02/03/19 05:30 05:40 05:50 Temperature Pulse Rate 109 H 109 H 109 H Pulse Rate [ Anterior Bilateral Throughout] Pulse Rate [ From Monitor] Respiratory 14 15 17 Rate Respiratory Rate [Anterior Bilateral Throughout] Blood Pressure 121/77 121/77 121/77 O2 Sat by Pulse 97 97 98 Oximetry 02/03/19 02/03/19 02/03/19 06:00 06:10 06:20 Temperature Pulse Rate 108 H 107 H 107 H Pulse Rate [ Anterior Bilateral Throughout] Pulse Rate [ From Monitor] Respiratory 16 17 19 Rate Respiratory Rate [Anterior Bilateral Throughout] Blood Pressure 110/72 110/72 110/72 O2 Sat by Pulse 97 98 Oximetry 02/03/19 02/03/19 02/03/19 06:30 06:40 06:50 Temperature Pulse Rate 110 H 105 H 105 H Pulse Rate [ Anterior Bilateral Throughout] Pulse Rate [ From Monitor] Respiratory 17 30 H 19 Rate Respiratory Rate [Anterior Bilateral Throughout] Blood Pressure 110/72 110/72 110/72 O2 Sat by Pulse 97 97 98 Oximetry 02/03/19 02/03/19 02/03/19 07:00 07:10 07:20 Temperature Pulse Rate 114 H 108 H 105 H Pulse Rate [ Anterior Bilateral Throughout] Pulse Rate [ From Monitor] Respiratory 17 17 19 Rate Respiratory Rate [Anterior Bilateral Throughout] Blood Pressure 119/69 119/69 119/69 O2 Sat by Pulse 99 99 99 Oximetry 02/03/19 02/03/19 02/03/19 07:30 07:40 07:50 Temperature Pulse Rate 105 H 114 H 105 H Pulse Rate [ Anterior Bilateral Throughout] Pulse Rate [ From Monitor] Respiratory 17 22 13 Rate Respiratory Rate [Anterior Bilateral Throughout] Blood Pressure 119/69 119/69 119/69 O2 Sat by Pulse 99 98 99 Oximetry 02/03/19 02/03/19 02/03/19 08:00 08:10 08:20 Temperature Pulse Rate 106 H 110 H 105 H Pulse Rate [ 113 H Anterior Bilateral Throughout] Pulse Rate [ 108 H From Monitor] Respiratory 14 16 19 Rate Respiratory 20 Rate [Anterior Bilateral Throughout] Blood Pressure 127/79 127/79 127/79 O2 Sat by Pulse 97 99 99 Oximetry 02/03/19 02/03/19 02/03/19 08:30 08:40 08:50 Temperature Pulse Rate 106 H 104 H 142 H Pulse Rate [ Anterior Bilateral Throughout] Pulse Rate [ From Monitor] Respiratory 11 L 22 13 Rate Respiratory Rate [Anterior Bilateral Throughout] Blood Pressure 127/79 127/79 127/79 O2 Sat by Pulse 99 100 Oximetry Constitutional: other (critically ill on ventilator, sedated) Eyes: non-icteric ENT: oropharynx moist Neck: supple Effort: normal Ascultation: Bilateral: other (coarse BS bilaterally) Cardiovascular: other (tachy, RR; no mrg) Gastrointestinal: normoactive bowel sounds, soft, non-tender, non-distended Integumentary: normal Extremities: no cyanosis, no edema, pink and warm Neurologic: unable to assess (due to sedation) Psychiatric: other (unable to assess) CBC and BMP: 02/03/19 03:30 02/03/19 03:30 ABG, PT/INR, D-dimer: ABG POC ABG pH 7.443 (7.35-7.45) 02/03/19 05:55 POC ABG pCO2 36.6 (35-45) 02/03/19 05:55 POC ABG pO2 117 (80-105) H 02/03/19 05:55 POC ABG HCO3 25.0 (22-26 mml/L) 02/03/19 05:55 POC ABG Total CO2 26 (23-27mmol/L) 02/03/19 05:55 POC ABG O2 Sat 99 02/03/19 05:55 PT/INR, D-dimer PT 15.0 Sec. (12.2-14.9) H 02/01/19 07:16 INR 1.21 (0.87-1.13) H 02/01/19 07:16 Abnormal lab findings: Abnormal Labs 02/01/19 02/01/19 02/01/19 07:16 07:16 07:16 WBC 17.7 H RBC Hgb Hct RDW 16.9 H Plt Count 62 L Seg Neuts % (Manual) 95.0 H Lymphocytes % (Manual) 0 L Seg Neutrophils # Man 16.8 H Lymphocytes # (Manual) 0.0 L PT 15.0 H INR 1.21 H Thrombin Time 20.0 H POC ABG pH POC ABG pO2 Sodium 135 L Potassium Chloride 97.7 L Carbon Dioxide 19 L BUN 51 H Creatinine 4.5 H Glucose 112 H POC Glucose Lactic Acid Calcium Direct Bilirubin AST Troponin T 0.181 H* C-Reactive Protein Total Protein Albumin LDL Cholesterol Direct 34 L HDL Cholesterol 20 L TSH Urine WBC (Auto) 02/01/19 02/01/19 02/01/19 07:29 07:29 07:43 WBC RBC Hgb Hct RDW Plt Count Seg Neuts % (Manual) Lymphocytes % (Manual) Seg Neutrophils # Man Lymphocytes # (Manual) PT INR Thrombin Time POC ABG pH POC ABG pO2 Sodium Potassium Chloride Carbon Dioxide BUN Creatinine Glucose POC Glucose Lactic Acid 4.80 H* Calcium Direct Bilirubin 0.7 H AST 42 H Troponin T C-Reactive Protein Total Protein 8.9 H Albumin 2.3 L LDL Cholesterol Direct HDL Cholesterol TSH 8.470 H Urine WBC (Auto) 02/01/19 02/01/19 02/01/19 09:45 11:32 13:50 WBC RBC Hgb Hct RDW Plt Count Seg Neuts % (Manual) Lymphocytes % (Manual) Seg Neutrophils # Man Lymphocytes # (Manual) PT INR Thrombin Time POC ABG pH 7.289 L POC ABG pO2 355 H Sodium Potassium Chloride Carbon Dioxide BUN Creatinine Glucose POC Glucose Lactic Acid 4.10 H* Calcium Direct Bilirubin AST Troponin T C-Reactive Protein Total Protein Albumin LDL Cholesterol Direct HDL Cholesterol TSH Urine WBC (Auto) 16.0 H 02/01/19 02/01/19 02/01/19 15:15 16:20 17:03 WBC RBC Hgb Hct RDW Plt Count Seg Neuts % (Manual) Lymphocytes % (Manual) Seg Neutrophils # Man Lymphocytes # (Manual) PT INR Thrombin Time POC ABG pH POC ABG pO2 Sodium Potassium Chloride Carbon Dioxide BUN Creatinine Glucose POC Glucose 115 H Lactic Acid 4.50 H* 2.80 H* Calcium Direct Bilirubin AST Troponin T C-Reactive Protein Total Protein Albumin LDL Cholesterol Direct HDL Cholesterol TSH Urine WBC (Auto) 02/01/19 02/01/19 02/02/19 17:04 19:28 05:16 WBC RBC Hgb Hct RDW Plt Count Seg Neuts % (Manual) Lymphocytes % (Manual) Seg Neutrophils # Man Lymphocytes # (Manual) PT INR Thrombin Time POC ABG pH POC ABG pO2 148 H Sodium Potassium Chloride 107.1 H Carbon Dioxide 18 L BUN 52 H Creatinine 3.1 H Glucose 120 H POC Glucose Lactic Acid Calcium 7.4 L Direct Bilirubin AST Troponin T C-Reactive Protein 32.30 H Total Protein Albumin LDL Cholesterol Direct HDL Cholesterol TSH Urine WBC (Auto) 02/02/19 02/02/19 02/03/19 05:53 05:53 03:30 WBC 14.3 H RBC 5.16 H Hgb 14.9 H Hct 46.2 H D RDW 16.9 H 17.0 H Plt Count 43 L 18 L* Seg Neuts % (Manual) 93.0 H Lymphocytes % (Manual) 2.0 L Seg Neutrophils # Man 13.3 H Lymphocytes # (Manual) 0.3 L PT INR Thrombin Time POC ABG pH POC ABG pO2 Sodium Potassium 5.1 H Chloride Carbon Dioxide 21 L BUN 57 H Creatinine 3.3 H Glucose 147 H POC Glucose Lactic Acid Calcium 7.5 L Direct Bilirubin AST 51 H Troponin T C-Reactive Protein Total Protein Albumin 1.6 L LDL Cholesterol Direct HDL Cholesterol TSH Urine WBC (Auto) 02/03/19 02/03/19 03:30 05:55 WBC RBC Hgb Hct RDW Plt Count Seg Neuts % (Manual) Lymphocytes % (Manual) Seg Neutrophils # Man Lymphocytes # (Manual) PT INR Thrombin Time POC ABG pH POC ABG pO2 117 H Sodium Potassium Chloride Carbon Dioxide BUN 65 H Creatinine 2.7 H Glucose 117 H POC Glucose Lactic Acid Calcium 7.2 L Direct Bilirubin AST Troponin T C-Reactive Protein Total Protein Albumin LDL Cholesterol Direct HDL Cholesterol TSH Urine WBC (Auto) Chest x-ray: report reviewed, image reviewed
--- NOTE | 2019-02-03 13:57 | Progress Note ---
Assessment and Plan Impression: * Oliguric acute kidney injury secondary to sepsis related ATN vs other --SCr 1.22mg/dl in Sep 2017 * Sepsis --CT Neck: inflammation on the right side of the neck suggestive of cellulitis * Streptococcal bacteremia * Acute encephalopathy * Acute respiratory failure * Metabolic acidosis secondary to lactic acidosis * ?Autoimmune disease * Microscopic hematuria * Proteinuria * Thrombocytopenia Plan: * Renal function is improved but not yet to baseline * Continue conservative management for now * Continue IVF * Vent management per CCM * [place]STER, C3/C4, ANCA pending; HIV negative * Abx per ID * Dose medications for renal function * Avoid potential nephrotoxic agents * Strict I/O Subjective Date of service: 02/03/19 Objective - Vital Signs Vital signs: Vital Signs - 12hr 02/03/19 02/03/19 02/03/19 02:00 02:03 02:10 Temperature Pulse Rate 114 H 118 H Pulse Rate [ Anterior Bilateral Throughout] Pulse Rate [ 110 H From Monitor] Respiratory 20 20 Rate Respiratory Rate [Anterior Bilateral Throughout] Blood Pressure 125/76 125/76 O2 Sat by Pulse 98 100 95 Oximetry 02/03/19 02/03/19 02/03/19 02:20 02:30 02:40 Temperature Pulse Rate 117 H 123 H 118 H Pulse Rate [ Anterior Bilateral Throughout] Pulse Rate [ From Monitor] Respiratory 20 32 H 34 H Rate Respiratory Rate [Anterior Bilateral Throughout] Blood Pressure 125/76 125/76 125/76 O2 Sat by Pulse 96 97 96 Oximetry 02/03/19 02/03/19 02/03/19 02:50 03:00 03:10 Temperature Pulse Rate 118 H 116 H 121 H Pulse Rate [ Anterior Bilateral Throughout] Pulse Rate [ From Monitor] Respiratory 63 H 30 H 28 H Rate Respiratory Rate [Anterior Bilateral Throughout] Blood Pressure 125/76 118/67 118/67 O2 Sat by Pulse 94 93 95 Oximetry 02/03/19 02/03/19 02/03/19 03:20 03:30 03:40 Temperature 100.4 F H Pulse Rate 116 H 113 H 119 H Pulse Rate [ Anterior Bilateral Throughout] Pulse Rate [ From Monitor] Respiratory 22 11 L 15 Rate Respiratory Rate [Anterior Bilateral Throughout] Blood Pressure 118/67 118/67 118/67 O2 Sat by Pulse 95 95 96 Oximetry 02/03/19 02/03/19 02/03/19 03:42 03:50 04:00 Temperature 100.4 F H Pulse Rate 115 H 117 H Pulse Rate [ Anterior Bilateral Throughout] Pulse Rate [ 112 H From Monitor] Respiratory 24 21 Rate Respiratory Rate [Anterior Bilateral Throughout] Blood Pressure 118/67 121/77 O2 Sat by Pulse 96 97 Oximetry 02/03/19 02/03/19 02/03/19 04:10 04:20 04:30 Temperature Pulse Rate 112 H 113 H 111 H Pulse Rate [ Anterior Bilateral Throughout] Pulse Rate [ From Monitor] Respiratory 16 16 16 Rate Respiratory Rate [Anterior Bilateral Throughout] Blood Pressure 121/77 121/77 121/77 O2 Sat by Pulse 97 96 97 Oximetry 02/03/19 02/03/19 02/03/19 04:40 04:50 05:00 Temperature Pulse Rate 113 H 110 H 112 H Pulse Rate [ Anterior Bilateral Throughout] Pulse Rate [ From Monitor] Respiratory 18 16 16 Rate Respiratory Rate [Anterior Bilateral Throughout] Blood Pressure 121/77 121/77 120/72 O2 Sat by Pulse 97 97 95 Oximetry 02/03/19 02/03/19 02/03/19 05:10 05:20 05:30 Temperature Pulse Rate 114 H 113 H 109 H Pulse Rate [ Anterior Bilateral Throughout] Pulse Rate [ From Monitor] Respiratory 23 18 14 Rate Respiratory Rate [Anterior Bilateral Throughout] Blood Pressure 120/72 121/77 121/77 O2 Sat by Pulse 97 96 97 Oximetry 02/03/19 02/03/19 02/03/19 05:40 05:50 06:00 Temperature Pulse Rate 109 H 109 H 108 H Pulse Rate [ Anterior Bilateral Throughout] Pulse Rate [ From Monitor] Respiratory 15 17 16 Rate Respiratory Rate [Anterior Bilateral Throughout] Blood Pressure 121/77 121/77 110/72 O2 Sat by Pulse 97 98 Oximetry 02/03/19 02/03/19 02/03/19 06:10 06:20 06:30 Temperature Pulse Rate 107 H 107 H 110 H Pulse Rate [ Anterior Bilateral Throughout] Pulse Rate [ From Monitor] Respiratory 17 19 17 Rate Respiratory Rate [Anterior Bilateral Throughout] Blood Pressure 110/72 110/72 110/72 O2 Sat by Pulse 97 98 97 Oximetry 02/03/19 02/03/19 02/03/19 06:40 06:50 07:00 Temperature Pulse Rate 105 H 105 H 114 H Pulse Rate [ Anterior Bilateral Throughout] Pulse Rate [ From Monitor] Respiratory 30 H 19 17 Rate Respiratory Rate [Anterior Bilateral Throughout] Blood Pressure 110/72 110/72 119/69 O2 Sat by Pulse 97 98 99 Oximetry 02/03/19 02/03/19 02/03/19 07:10 07:20 07:30 Temperature Pulse Rate 108 H 105 H 105 H Pulse Rate [ Anterior Bilateral Throughout] Pulse Rate [ From Monitor] Respiratory 17 19 17 Rate Respiratory Rate [Anterior Bilateral Throughout] Blood Pressure 119/69 119/69 119/69 O2 Sat by Pulse 99 99 99 Oximetry 02/03/19 02/03/19 02/03/19 07:40 07:50 08:00 Temperature Pulse Rate 114 H 105 H 106 H Pulse Rate [ 113 H Anterior Bilateral Throughout] Pulse Rate [ From Monitor] Respiratory 22 13 14 Rate Respiratory 20 Rate [Anterior Bilateral Throughout] Blood Pressure 119/69 119/69 127/79 O2 Sat by Pulse 98 99 97 Oximetry 02/03/19 02/03/19 02/03/19 08:10 08:20 08:30 Temperature Pulse Rate 110 H 105 H 106 H Pulse Rate [ Anterior Bilateral Throughout] Pulse Rate [ 108 H From Monitor] Respiratory 16 19 11 L Rate Respiratory Rate [Anterior Bilateral Throughout] Blood Pressure 127/79 127/79 127/79 O2 Sat by Pulse 99 99 99 Oximetry 02/03/19 02/03/19 02/03/19 08:40 08:50 09:00 Temperature Pulse Rate 104 H 142 H 114 H Pulse Rate [ Anterior Bilateral Throughout] Pulse Rate [ From Monitor] Respiratory 22 13 20 Rate Respiratory Rate [Anterior Bilateral Throughout] Blood Pressure 127/79 127/79 133/75 O2 Sat by Pulse 100 97 Oximetry 02/03/19 02/03/19 02/03/19 09:10 09:20 09:30 Temperature Pulse Rate 118 H 107 H 113 H Pulse Rate [ Anterior Bilateral Throughout] Pulse Rate [ From Monitor] Respiratory 21 25 H 15 Rate Respiratory Rate [Anterior Bilateral Throughout] Blood Pressure 133/75 133/75 133/75 O2 Sat by Pulse 98 96 Oximetry 02/03/19 02/03/19 02/03/19 09:40 09:50 10:00 Temperature Pulse Rate 110 H 110 H 110 H Pulse Rate [ Anterior Bilateral Throughout] Pulse Rate [ From Monitor] Respiratory 20 20 21 Rate Respiratory Rate [Anterior Bilateral Throughout] Blood Pressure 133/75 133/75 125/79 O2 Sat by Pulse Oximetry 02/03/19 02/03/1902/03/19 10:10 10:20 10:30 Temperature Pulse Rate 109 H 109 H 114 H Pulse Rate [ Anterior Bilateral Throughout] Pulse Rate [ From Monitor] Respiratory 20 20 19 Rate Respiratory Rate [Anterior Bilateral Throughout] Blood Pressure 125/79 125/79 125/79 O2 Sat by Pulse 98 Oximetry 02/03/19 02/03/19 02/03/19 10:40 10:50 11:00 Temperature Pulse Rate 109 H 116 H 108 H Pulse Rate [ Anterior Bilateral Throughout] Pulse Rate [ From Monitor] Respiratory 20 20 19 Rate Respiratory Rate [Anterior Bilateral Throughout] Blood Pressure 125/79 125/79 125/79 O2 Sat by Pulse 97 70 L Oximetry 02/03/19 02/03/19 02/03/19 11:10 11:20 11:30 Temperature Pulse Rate 111 H 113 H 113 H Pulse Rate [ Anterior Bilateral Throughout] Pulse Rate [ From Monitor] Respiratory 24 19 20 Rate Respiratory Rate [Anterior Bilateral Throughout] Blood Pressure 125/79 125/79 125/79 O2 Sat by Pulse Oximetry 02/03/19 02/03/19 02/03/19 11:40 11:50 12:00 Temperature Pulse Rate 116 H 116 H 117 H Pulse Rate [ Anterior Bilateral Throughout] Pulse Rate [ From Monitor] Respiratory 19 21 25 H Rate Respiratory Rate [Anterior Bilateral Throughout] Blood Pressure 132/89 132/89 130/80 O2 Sat by Pulse 100 100 100 Oximetry 02/03/19 12:10 Temperature Pulse Rate 115 H Pulse Rate [ Anterior Bilateral Throughout] Pulse Rate [ From Monitor] Respiratory 21 Rate Respiratory Rate [Anterior Bilateral Throughout] Blood Pressure 130/80 O2 Sat by Pulse 100 Oximetry - Lab 02/03/19 03:30 02/03/19 03:30 Most recent lab results Calcium 7.2 mg/dL (8.4-10.2) L 02/03/19 03:30 Medications & Allergies - Medications Allergies/Adverse Reactions: Allergies No Known Allergies Allergy (Verified 08/18/18 09:04) Home Medications: Home Medications Medication Instructions Recorded Confirmed Last Taken Type Levothyroxine [Synthroid] 112 mcg PO QAM 02/01/19 02/01/19 Unknown History Lisinopril [Zestril TAB] 40 mg PO QDAY 02/01/19 02/01/19 Unknown History amLODIPine [Norvasc] 10 mg PO DAILY 02/01/19 02/01/19 Unknown History cloNIDine [Catapres] 1 mg PO QDAY 02/01/19 02/01/19 Unknown History Active Medications: Generic Name Dose Route Start Last Admin Trade Name Freq PRN Reason Stop Dose Admin Acetaminophen 650 mg 02/01/19 10:47 02/03/19 03:58 Tylenol PO 650 mg Q4H PRN Administration Pain MILD(1-3)/Fever >100.5/VALENZUELA Albuterol 2.5 mg 02/01/19 10:47 Proventil IH Q4HRT PRN Shortness Of Breath Albuterol/Ipratropium 1 ampul 02/01/19 12:00 02/03/19 08:36 Duoneb *Not For Prn Use* IH 1 ampul Q6HRT AMOL Administration Famotidine 20 mg 02/03/19 10:00 02/03/19 10:30 Pepcid IV 20 mg QDAY AMOL Administration Hydrophilic Ointment 1 applic 02/01/19 11:09 02/02/19 16:50 Vaseline Lip Therapy TP 1 applic Q2HR PRN Administration Dry Lips Midazolam HCl 100 mg/ Sodium 100 mls @ 2 mls/hr 02/01/19 12:00 02/03/19 07:40 Chloride IV 0 mg/hr TITR AMOL 0 mls/hr Titration Protocol 2 MG/HR Cefepime HCl 1 gm in 100 mls @ 200 mls/hr 02/01/19 12:00 02/03/19 12:11 Maxipime/Ns 1 Gm/100 Ml IV 200 mls/hr Q12H AMOL Administration Protocol Metronidazole 500 mg in 100 mls @ 100 mls/hr 02/01/19 17:00 02/03/19 06:02 Flagyl 500 Mg/100 Ml IV 100 mls/hr Q8HR AMOL Administration Protocol Sodium Bicarbonate 150 meq/ 1,150 mls @ 125 mls/hr 02/01/19 20:00 02/03/19 08:00 Dextrose IV 125 mls/hr DIRECT AMOL Administration Midazolam HCl 2 mg 02/01/19 11:09 02/01/19 11:42 Versed IV 2 mg Q10MIN PRN Administration Sedation Morphine Sulfate 2 mg 02/01/19 10:47 Morphine IV Q4H PRN Pain, Moderate (4-6) Multi-Ingred Cream/Lotion/Oil/Oint 1 applic 02/01/19 11:09 02/02/19 16:50 Artificial Tears Ophth Oint OU 1 applic Q4HR PRN Administration Dry Eye(s) Ondansetron HCl 4 mg 02/01/19 10:47 Zofran IV Q8H PRN Nausea And Vomiting Sodium Chloride 10 ml 02/01/19 22:00 02/02/19 21:58 Sodium Chloride Flush Syringe 10 Ml IV 10 ml BID AMOL Administration Sodium Chloride 10 ml 02/01/19 10:47 Sodium Chloride Flush Syringe 10 Ml IV PRN PRN LINE FLUSH
--- NOTE | 2019-02-03 14:01 | Progress Note ---
Assessment and Plan Assessment and plan: Septic shock - Source of infection is likely from the sore throat, CT of the neck showed inflammation/cellulitis - Patient had a fever of 101.8 - Lactic acid level was 4.8 - Patient is being treated according to sepsis protocol with cefepime, flagyl and vancomycin - Follow blood culture - ID consult appreciated Acute metabolic encephalopathy - CT head is negative, telemetry neurology consulted and doesn't think it is stroke - neurology consult appreciated Acute respiratory failure -Patient is intubated and on mechanical ventilation Type 2 NM - Patient has elevated troponin level, could be due to her renal failure versus septic shock Acute on chronic renal failure due to ATN -Nephrology following -ANCA, C3,C4 , CRP ordered Hypothyroidism - TSH 8.47 normal free T4 level - We'll resume Synthroid Coagulation abnormality - Likely due to septic shock UTI - Continue antibiotics - Urine culture Thrombocytopenia - Discussed with Dr. Diaz and he recommended that a repeat CBC in 12 hours and if platelet is lower, transfuse her - Check B12, folate, iron, ferritin fibrinogen level. If fibrinogen level is less than 100 recommended to give 10 units of cryo CODE Status; Full The high probability of a clinically significant, sudden or life threatening deterioration of the [CV, Neurology, renal] system(s) required my full and direct attention, intervention and personal management. The aggregate critical care time was [45] minutes. This time is in addition to time spent performing reported procedures but includes the following: [x] Data Review and interpretation [x] Patient assessment and monitoring of vital signs [x] Documentation [x] Medication orders and management History Interval history: Patient was seen and evaluated his morning. Patient is on mechanical ventilation. Hospitalist Physical - Physical exam Narrative exam: Patient is in cardiopulmonary distress. The patient appeared well nourished and normally developed. Vital signs as documented. Head exam is unremarkable. No scleral icterus . Neck is without jugular venous distension, thyromegaly, or carotid bruits. Lungs; tachypnic, BBS. Cardiac exam reveals regular rate and Rhythm. Abdominal exam reveals normal bowel sounds, no masses, no organomegaly and no aortic enlargement. Extremities are nonedematous and both femoral and pedal pulses are normal. 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 - Constitutional Vitals: Temp Pulse Resp BP Pulse Ox 100.4 F H 115 H 21 130/80 100 02/03/19 03:42 02/03/19 12:10 02/03/19 12:10 02/03/19 12:10 02/03/19 12:10 Results - Labs CBC & Chem 7: 02/03/19 03:30 02/03/19 03:30 Labs: Laboratory Last Values WBC 8.4 K/mm3 (4.5-11.0) 02/03/19 03:30 RBC 5.16 M/mm3 (3.65-5.03) H 02/03/19 03:30 Hgb 14.9 gm/dl (10.1-14.3) H 02/03/19 03:30 Hct 46.2 % (30.3-42.9) H D 02/03/19 03:30 MCV 90 fl (79-97) 02/03/19 03:30 MCH 29 pg (28-32) 02/03/19 03:30 MCHC 32 % (30-34) 02/03/19 03:30 RDW 17.0 % (13.2-15.2) H 02/03/19 03:30 Plt Count 18 K/mm3 (140-440) L* 02/03/19 03:30 Lymph % (Auto) Airline Dispatcher 02/03/19 03:30 Mcdonald % (Auto) Airline Dispatcher 02/03/19 03:30 Eos % (Auto) Airline Dispatcher 02/03/19 03:30 Baso % (Auto) Airline Dispatcher 02/03/19 03:30 Lymph # Airline Dispatcher 02/03/19 03:30 Mcdonald # Airline Dispatcher 02/03/19 03:30 Eos # Airline Dispatcher 02/03/19 03:30 Baso # Airline Dispatcher 02/03/19 03:30 Add Manual Diff Complete 02/02/19 05:53 Total Counted 100 02/02/19 05:53 Seg Neutrophils % Airline Dispatcher 02/03/19 03:30 Seg Neuts % (Manual) 93.0 % (40.0-70.0) H 02/02/19 05:53 0 % 02/02/19 05:53 2.0 % (13.4-35.0) L 02/02/19 05:53 Reactive Lymphs % (Man) 0 % 02/02/19 05:53 4.0 % (0.0-7.3) 02/02/19 05:53 0 % (0.0-4.3) 02/02/19 05:53 0 % (0.0-1.8) 02/02/19 05:53 1.0 % 02/02/19 05:53 0 % 02/02/19 05:53 0 % 02/02/19 05:53 0 % 02/02/19 05:53 Nucleated RBC % Not Reportable 02/02/19 05:53 Seg Neutrophils # Airline Dispatcher 02/03/19 03:30 Seg Neutrophils # Man 13.3 K/mm3 (1.8-7.7) H 02/02/19 05:53 Band Neutrophils # 0.0 K/mm3 02/02/19 05:53 0.3 K/mm3 (1.2-5.4) L 02/02/19 05:53 Abs React Lymphs (Man) 0.0 K/mm3 02/02/19 05:53 0.6 K/mm3 (0.0-0.8) 02/02/19 05:53 0.0 K/mm3 (0.0-0.4) 02/02/19 05:53 0.0 K/mm3 (0.0-0.1) 02/02/19 05:53 0.1 K/mm3 02/02/19 05:53 0.0 K/mm3 02/02/19 05:53 0.0 K/mm3 02/02/19 05:53 Blast Cells # 0.0 K/mm3 02/02/19 05:53 WBC Morphology Not Reportable 02/02/19 05:53 Hypersegmented Neuts Not Reportable 02/02/19 05:53 Hyposegmented Neuts Not Reportable 02/02/19 05:53 Hypogranular Neuts Not Reportable 02/02/19 05:53 Cancelled 02/01/19 07:16 Not Reportable 02/02/19 05:53 Not Reportable 02/02/19 05:53 Not Reportable 02/02/19 05:53 Not Reportable 02/02/19 05:53 Not Reportable 02/02/19 05:53 Not Reportable 02/02/19 05:53 Consistent w auto 02/02/19 05:53 Not Reportable 02/02/19 05:53 Plt Clumps, EDTA Not Reportable 02/02/19 05:53 Not Reportable 02/02/19 05:53 Not Reportable 02/02/19 05:53 Not Reportable 02/02/19 05:53 Plt Morphology Comment Not Reportable 02/02/19 05:53 RBC Morphology Not Reportable 02/02/19 05:53 Dimorphic RBCs Not Reportable 02/02/19 05:53 Not Reportable 02/02/19 05:53 Not Reportable 02/02/19 05:53 Not Reportable 02/02/19 05:53 Cancelled 02/01/19 07:16 1+ 02/02/19 05:53 Not Reportable 02/02/19 05:53 Not Reportable 02/02/19 05:53 Not Reportable 02/02/19 05:53 Not Reportable 02/02/19 05:53 Not Reportable 02/02/19 05:53 Not Reportable 02/02/19 05:53 Not Reportable 02/02/19 05:53 Not Reportable 02/02/19 05:53 Cancelled 02/01/19 07:16 Not Reportable 02/02/19 05:53 Not Reportable 02/02/19 05:53 Not Reportable 02/02/19 05:53 Not Reportable 02/02/19 05:53 Not Reportable 02/02/19 05:53 Few 02/02/19 05:53 Not Reportable 02/02/19 05:53 Acanthocytes (Spur) Not Reportable 02/02/19 05:53 Rouleaux Not Reportable 02/02/19 05:53 Not Reportable 02/02/19 05:53 Not Reportable 02/02/19 05:53 Not Reportable 02/02/19 05:53 ESR 76 mm/Hr (0-20) 02/01/19 16:51 Not Reportable 02/02/19 05:53 Hem Pathologist Commnt No 02/02/19 05:53 PT 15.0 Sec. (12.2-14.9) H 02/01/19 07:16 INR 1.21 (0.87-1.13) H 02/01/19 07:16 APTT 34.8 Sec. (24.2-36.6) 02/01/19 07:16 20.0 Sec. (15.1-19.6) H 02/01/19 07:16 POC ABG pH 7.443 (7.35-7.45) 02/03/19 05:55 POC ABG pCO2 36.6 (35-45) 02/03/19 05:55 POC ABG pO2 117 (80-105) H 02/03/19 05:55 POC ABG HCO3 25.0 (22-26 mml/L) 02/03/19 05:55 POC ABG Total CO2 26 (23-27mmol/L) 02/03/19 05:55 POC ABG O2 Sat 99 02/03/19 05:55 POC ABG Base Excess 1 ((-2) - (+3)mmol/L) 02/03/19 05:55 25 % 02/03/19 05:55 Sodium 142 mmol/L (137-145) 02/03/19 03:30 Potassium 4.2 mmol/L (3.6-5.0) 02/03/19 03:30 Chloride 106.4 mmol/L (98-107) 02/03/19 03:30 Carbon Dioxide 23 mmol/L (22-30) 02/03/19 03:30 17 mmol/L 02/03/19 03:30 BUN 65 mg/dL (7-17) H 02/03/19 03:30 2.7 mg/dL (0.7-1.2) H 02/03/19 03:30 Estimated GFR 22 ml/min 02/03/19 03:30 24 % 02/03/19 03:30 Glucose 117 mg/dL (65-100) H 02/03/19 03:30 POC Glucose 115 (70-105) H 02/01/19 16:20 Lactic Acid 1.40 mmol/L (0.7-2.0) 02/01/19 20:57 Calcium 7.2 mg/dL (8.4-10.2) L 02/03/19 03:30 0.90 mg/dL (0.1-1.2) 02/02/19 05:53 0.7 mg/dL (0-0.2) H 02/01/19 07:29 0.5 mg/dL 02/01/19 07:29 AST 51 units/L (5-40) H 02/02/19 05:53 ALT 16 units/L (7-56) 02/02/19 05:53 76 units/L (35-129) 02/02/19 05:53 0.181 ng/mL (0.00-0.029) H* 02/01/19 07:16 32.30 mg/dL (0.00-1.30) H 02/01/19 17:04 8.0 g/dL (6.3-8.2) 02/02/19 05:53 1.6 g/dL (3.9-5) L 02/02/19 05:53 0.3 % 02/02/19 05:53 Triglycerides 95 mg/dL (2-149) 02/01/19 07:16 Cholesterol 75 mg/dL (50-199) 02/01/19 07:16 34 mg/dL (50-130) L 02/01/19 07:16 20 mg/dL (40-59) L 02/01/19 07:16 3.75 % 02/01/19 07:16 TSH 8.470 mlU/mL (0.270-4.200) H 02/01/19 07:43 Free T4 1.08 ng/dL (0.76-1.46) 02/01/19 07:43 Sara (Yellow) 02/01/19 09:45 Cloudy (Clear) 02/01/19 09:45 5.0 (5.0-7.0) 02/01/19 09:45 Ur Specific [place] 1.019 (1.003-1.030) 02/01/19 09:45 >500 mg/dL (Negative) 02/01/19 09:45 Neg mg/dL (Negative) 02/01/19 09:45 Neg mg/dL (Negative) 02/01/19 09:45 Mod (Negative) 02/01/19 09:45 Neg (Negative) 02/01/19 09:45 Neg (Negative) 02/01/19 09:45 < 2.0 mg/dL (<2.0) 02/01/19 09:45 Ur Leukocyte Esterase Neg (Negative) 02/01/19 09:45 16.0 /HPF (0.0-6.0) H 02/01/19 09:45 77.0 /HPF (0.0-6.0) 02/01/19 09:45 U Epithel Cells (Auto) 2.0 /HPF (0-13.0) 02/01/19 09:45 Amorphous Crystals 1+ 02/01/19 09:45 Few /HPF 02/01/19 09:45 Random Vancomycin 9.8 ug/mL (0-40.0) 02/03/19 03:30 Hepatitis A IgM Ab Non-reactive (NonReactive) 02/02/19 19:29 Hep Bs Antigen Non-reactive (Negative) 02/02/19 19:29 Hep B Core IgM Ab Non-reactive (NonReactive) 02/02/19 19:29 Non-reactive (NonReactive) 02/02/19 19:29 HIV 1&2 Antibody Rapid Non react (Non React) 02/02/19 15:46 Non react (Non React) 02/02/19 15:46 Active Medications - Current Medications Current Medications: Generic Name Dose Route Start Last Admin Trade Name Freq PRN Reason Stop Dose Admin Acetaminophen 650 mg 02/01/19 10:47 02/03/19 03:58 Tylenol PO 650 mg Q4H PRN Administration Pain MILD(1-3)/Fever >100.5/VALENZUELA Albuterol 2.5 mg 02/01/19 10:47 Proventil IH Q4HRT PRN Shortness Of Breath Albuterol/Ipratropium 1 ampul 02/01/19 12:00 02/03/19 08:36 Duoneb *Not For Prn Use* IH 1 ampul Q6HRT AMOL Administration Famotidine 20 mg 02/03/19 10:00 02/03/19 10:30 Pepcid IV 20 mg QDAY AMOL Administration Hydrophilic Ointment 1 applic 02/01/19 11:09 02/02/19 16:50 Vaseline Lip Therapy TP 1 applic Q2HR PRN Administration Dry Lips Midazolam HCl 100 mg/ Sodium 100 mls @ 2 mls/hr 02/01/19 12:00 02/03/19 07:40 Chloride IV 0 mg/hr TITR AMOL 0 mls/hr Titration Protocol 2 MG/HR Cefepime HCl 1 gm in 100 mls @ 200 mls/hr 02/01/19 12:00 02/03/19 12:11 Maxipime/Ns 1 Gm/100 Ml IV 200 mls/hr Q12H AMOL Administration Protocol Metronidazole 500 mg in 100 mls @ 100 mls/hr 02/01/19 17:00 02/03/19 06:02 Flagyl 500 Mg/100 Ml IV 100 mls/hr Q8HR AMOL Administration Protocol Sodium Bicarbonate 150 meq/ 1,150 mls @ 125 mls/hr 02/01/19 20:00 02/03/19 08:00 Dextrose IV 125 mls/hr DIRECT AMOL Administration Midazolam HCl 2 mg 02/01/19 11:09 02/01/19 11:42 Versed IV 2 mg Q10MIN PRN Administration Sedation Morphine Sulfate 2 mg 02/01/19 10:47 Morphine IV Q4H PRN Pain, Moderate (4-6) Multi-Ingred Cream/Lotion/Oil/Oint 1 applic 02/01/19 11:09 02/02/19 16:50 Artificial Tears Ophth Oint OU 1 applic Q4HR PRN Administration Dry Eye(s) Ondansetron HCl 4 mg 02/01/19 10:47 Zofran IV Q8H PRN Nausea And Vomiting Sodium Chloride 10 ml 02/01/19 22:00 02/02/19 21:58 Sodium Chloride Flush Syringe 10 Ml IV 10 ml BID AMOL Administration Sodium Chloride 10 ml 02/01/19 10:47 Sodium Chloride Flush Syringe 10 Ml IV PRN PRN LINE FLUSH Nutrition/Malnutrition Assess - Dietary Evaluation Nutrition/Malnutrition Findings: Nutrition Notes Start: 02/02/19 15:11 Freq: Status: Active Protocol: Document 02/02/19 15:11 RM (Rec: 02/02/19 15:29 RM [id number]) Nutrition Notes Need for Assessment generated from: MD Order Initial or Follow up Assessment Current Diagnosis Acute Kidney Injury Other Pertinent Diagnosis Hypothyroidism, Septic shock, Acute encephalopathy, UTI Current Diet NPO Labs/Tests K 5.1 Pertinent Medications Reviewed Height 5 ft 5 in Weight 84.3 kg [place] Body Weight (kg) 56.81 BMI 30.9 Subjective/Other Information Consulted for evaluation of nutritional intake. Pt in ED waiting for transfer to ICU. Pt on vent. Burn Absent Trauma Absent #1 Nutrition Diagnosis Inadequate oral intake Etiology on vent As Evidenced by Signs and Symptoms NPO status Is patient on ventilator? Yes Is Patient Ambulatory and/or Out of Bed No REE-([facility]-confined to bed) 1754.532 Kcal/Kg value to use for calculation 17 Approximate Energy Requirements Using 1433 kcal/Kg Calculation Used for Recommendations Kcal/kg Additional Notes Protein Needs: 114g (2g/kg IBW ) Fluid Needs: 1 ml/kcal Nutrition Intervention Change Diet Order: TF consult Nutrition Support: Vital 1.2 at 50 ml/hr Water flush of 100 mls q 4 hrs Kcal 1,440 Protein (gm) 90 Goal #1 TF consult Anticipated Discharge Needs: Unable to determine at this time Follow-Up By: 02/05/19 Additional Comments Follow for TF consult
--- NOTE | 2019-02-03 14:46 | Progress Note ---
Assessment and Plan Cultures: 02/01/2019 blood culture: Strep spp in 09/2102/01/2019 urine culture: no growth 02/01/2019 tracheal aspirate: usual resp. silvana A/P: 53-year-old female with hypothyroidism, hypertension, ?autoimmune disease. Admitted with: 1) Severe sepsis with GPC bacteremia: Leukocytosis, thrombocytopenia, lactic acidosis. Source appears to be the right neck induration / cellulitis as well a s bilateral pneumonia. Mother notes significant improvement. Will follow up final culture report and de-escalate as necessary. 2) Right neck cellulitis and induration v/s severe lymphadenopathy: CT neck was without contrast, hence limited eval of vasculature. Neck US revealed extensive R neck lymphadenopathy, no abscess. 3) Bilateral pneumonia: sputum culture shows resp silvana 4) Acute renal failure: renally dose abx. Nephrology following. 5) ?Autoimmune disease: need more history. Unclear if she is on any kind of immunosuppression. f/u CHESTER, C3, C4, ANCA. Recs: continue IV Cefepime, Flagyl and Vancomycin, renally adjusted f/u respiratory culture, CHESTER, C3, C4 TTE ordered repeat blood cultures ordered HIV, RPR, Bartonella serologies ordered (patient intubated, critically ill, unable to provide consent, no family available currently, ) once creatinine improves, may need CT chest, abdomen pelvis with IV contrast to evaluate for other lymphadenopathy Edith Mi MD [facility], [place], [facility] ([facility]) M: [phone] O: [phone] F: [phone] Subjective Date of service: 02/03/19 Interval history: remains on vent. Sedation stopped this morning, though still not awake yet. Objective - Exam Narrative Exam: Physical Exam: Constitutional: intubated Head, Ears, Nose: Normocephalic, atraumatic. External ears, nose normal Eyes: Conjunctivae/corneas clear. No icterus. No ptosis. Neck: induration on the R side of the neck Oral: intubated Cardiovascular: S1, S2 normal. Respiratory: coarse sounds bilaterally GI: Soft, non-tender; bowel sounds normal. No peritoneal signs Musculoskeletal: No pedal edema, no cyanosis. Skin: No rash or abscess Hem/Lymphatic: No palpable cervical or supraclavicular nodes. No lymphangitis Psych: no agitation Neurological: off sedation, still not responsive yet, intubated, on vent - Constitutional Vitals: Vital Signs Temp Pulse Resp BP Pulse Ox 100.4 F H 110 H 20 130/80 100 02/03/19 03:42 02/03/19 14:00 02/03/19 14:00 02/03/19 12:10 02/03/19 12:10 Temperature -Last 24 Hours Temperature 100.4 F Temperature 100.4 F Temperature 98.2 F Temperature 97.9 F - Labs CBC & Chem 7: 02/03/19 03:30 02/03/19 03:30 Labs: Abnormal lab results 02/03/19 02/03/19 02/03/19 Range/Units 03:30 03:30 05:55 RBC 5.16 H (3.65-5.03) M/mm3 Hgb 14.9 H (10.1-14.3) gm/dl Hct 46.2 H D (30.3-42.9) % RDW 17.0 H (13.2-15.2) % Plt Count 18 L* (140-440) K/mm3 POC ABG pO2 117 H (80-105) BUN 65 H (7-17) mg/dL Creatinine 2.7 H (0.7-1.2) mg/dL Glucose 117 H (65-100) mg/dL Calcium 7.2 L (8.4-10.2) mg/dL
[2019-02-03 15:03] LABS: Hematocrit 28.5 % (30.3-42.9); Hemoglobin 9.5 gm/dl (10.1-14.3); Mean Corpuscular HGB Conc 33 % (30-34); Mean Corpuscular Volume 89 fl (79-97); Red Blood Count 3.22 M/mm3 (3.65-5.03); Red Cell Distribution Width 16.4 % (13.2-15.2)
[2019-02-03 15:04] LABS: Hematocrit 28.3 % (30.3-42.9); Hemoglobin 9.4 gm/dl (10.1-14.3); Mean Corpuscular HGB Conc 33 % (30-34); Mean Corpuscular Volume 89 fl (79-97); Red Blood Count 3.17 M/mm3 (3.65-5.03); Red Cell Distribution Width 16.9 % (13.2-15.2)
[2019-02-03 15:14] LABS: Platelet Count 18 K/mm3 (140-440)
[2019-02-03 15:15] LABS: INR 1.29 (0.87-1.13); Platelet Count 18 K/mm3 (140-440)
[2019-02-03 15:16] LABS: Partial Thromboplastin Time 38.2 Sec. (24.2-36.6)
[2019-02-03 16:04] LABS: Iron 11 ug/dL (37-170); Total Iron Binding Capacity 88 mcg/dL (250-450)
[2019-02-04] MEDS: CEFEPIME/NS 1 GM/100 ML 1 GM/100 ML BAG IV SCH ×2 (00:28→12:54)
--- NOTE | 2019-02-04 03:12 | XRay Report ---
CHEST 1 VIEW 2:03 AM INDICATION / CLINICAL INFORMATION: Follow up respiratory failure. COMPARISON: Yesterday. FINDINGS: SUPPORT DEVICES: The positions of the endotracheal and nasogastric tubes have not changed. HEART / MEDIASTINUM: Unchanged. LUNGS / PLEURA: Patchy parenchymal disease in both lungs has shown significant improvement. No new ab normality is seen. No pneumothorax. ADDITIONAL FINDINGS: No significant additional findings. IMPRESSION: Improving parenchymal disease in both lungs. Signer Name: Krunal Crowder MD Signed: 02/04/2019 3:07 AM Workstation Name: [id number]
[2019-02-04] MEDS: IPRATROPIUM/ALBUTEROL SULFATE 3 ML AMPUL.NEB IH SCH ×4 (03:29→20:33)
[2019-02-04 04:30] LABS: ABG Base Excess 4.5 mmol/L (-2.0-3.0); ABG HCO3 28.4 mmol/L (20.0-26.0); ABG Methemoglobin 0.6 % (0.0-1.5); ABG Oxygen Saturation 96.8 % (95.0-99.0); ABG PH 7.47 pH Units (7.350-7.450); ABG PO2 81.9 mm Hg (80.0-90.0)
[2019-02-04 05:27] LABS: Hemoglobin 10.7 gm/dl (10.1-14.3); Mean Corpuscular HGB Conc 33 % (30-34); Mean Corpuscular Volume 90 fl (79-97); Red Blood Count 3.66 M/mm3 (3.65-5.03); Red Cell Distribution Width 16.5 % (13.2-15.2)
[2019-02-04 05:47] LABS: Calcium 7.6 mg/dL (8.4-10.2)
[2019-02-04] MEDS: metroNIDAZOLE/NS 500 MG/100 ML 500 MG/100 ML BAG IV SCH ×3 (05:47→21:23)
[2019-02-04 06:39] LABS: Band Neutrophils # (Manual) 0.2 K/mm3; Basophils % (Manual) 0 % (0.0-1.8); Eosinophils % (Manual) 0 % (0.0-4.3); Total Cells Counted 100
[2019-02-04 06:40] LABS: Anisocytosis 1+; Platelet Estimate Consistent w Auto
[2019-02-04 06:53] LABS: Platelet Count 20 K/mm3 (140-440)
[2019-02-04] MEDS: SODIUM BICARBONATE 150 MEQ in DEXTROSE 5% IN WATER 1,000 ML IV SCH (09:00)
[2019-02-04] MEDS: VANCOMYCIN 1,250 MG in SODIUM CHLORIDE 0.9% 250ML 250 ML IV SCH (10:19)
[2019-02-04] MEDS: FAMOTIDINE 20 MG/2 ML INJ IV SCH (10:19)
--- NOTE | 2019-02-04 10:52 | Progress Note ---
Assessment and Plan - Patient Problems (1) Acute respiratory failure Current Visit: Yes Status: Acute (2) Cellulitis, neck Current Visit: Yes Status: Acute (3) Thrombocytopenia Current Visit: Yes Status: Acute (4) Acute renal failure Current Visit: Yes Status: Acute (5) Altered mental status Current Visit: Yes Status: Acute (6) Encephalopathy Current Visit: Yes Status: Acute (7) Pneumonia Current Visit: Yes Status: Acute Subjective Interval history: responds to painful stimuli On vent mother at bedside Objective Vital Signs - 12hr 02/03/19 02/03/19 02/03/19 22:50 23:00 23:10 Temperature Pulse Rate 109 H 104 H 105 H Pulse Rate [ Anterior Bilateral Throughout] Pulse Rate [ From Monitor] Respiratory 20 22 20 Rate Respiratory Rate [Anterior Bilateral Throughout] Blood Pressure 90/54 100/50 100/50 O2 Sat by Pulse 98 98 98 Oximetry 02/03/19 02/03/19 02/03/19 23:20 23:30 23:40 Temperature Pulse Rate 105 H 104 H 103 H Pulse Rate [ Anterior Bilateral Throughout] Pulse Rate [ From Monitor] Respiratory 20 20 20 Rate Respiratory Rate [Anterior Bilateral Throughout] Blood Pressure 100/50 100/50 100/50 O2 Sat by Pulse 98 99 99 Oximetry 02/03/19 02/04/19 02/04/19 23:50 00:00 00:10 Temperature 99.8 F H Pulse Rate 102 H 99 H 100 H Pulse Rate [ Anterior Bilateral Throughout] Pulse Rate [ 99 H From Monitor] Respiratory 20 20 20 Rate Respiratory Rate [Anterior Bilateral Throughout] Blood Pressure 100/50 104/62 104/62 O2 Sat by Pulse 99 100 100 Oximetry 02/04/19 02/04/19 02/04/19 00:20 00:30 00:40 Temperature Pulse Rate 99 H 100 H 100 H Pulse Rate [ Anterior Bilateral Throughout] Pulse Rate [ From Monitor] Respiratory 20 20 20 Rate Respiratory Rate [Anterior Bilateral Throughout] Blood Pressure 104/62 104/62 104/62 O2 Sat by Pulse 98 99 100 Oximetry 02/04/19 02/04/19 02/04/19 00:50 01:00 01:10 Temperature Pulse Rate 98 H 98 H 97 H Pulse Rate [ Anterior Bilateral Throughout] Pulse Rate [ From Monitor] Respiratory 20 20 20 Rate Respiratory Rate [Anterior Bilateral Throughout] Blood Pressure 104/62 104/67 104/67 O2 Sat by Pulse 100 99 96 Oximetry 02/04/19 02/04/19 02/04/19 01:20 01:30 01:40 Temperature Pulse Rate 98 H 96 H 96 H Pulse Rate [ Anterior Bilateral Throughout] Pulse Rate [ From Monitor] Respiratory 20 20 20 Rate Respiratory Rate [Anterior Bilateral Throughout] Blood Pressure 104/62 104/62 104/62 O2 Sat by Pulse Oximetry 02/04/19 02/04/19 02/04/19 01:50 02:00 02:10 Temperature Pulse Rate 98 H 98 H 97 H Pulse Rate [ Anterior Bilateral Throughout] Pulse Rate [ From Monitor] Respiratory 20 20 20 Rate Respiratory Rate [Anterior Bilateral Throughout] Blood Pressure 104/62 104/70 104/70 O2 Sat by Pulse Oximetry 02/04/19 02/04/19 02/04/19 02:20 02:30 02:40 Temperature Pulse Rate 98 H 97 H 101 H Pulse Rate [ Anterior Bilateral Throughout] Pulse Rate [ From Monitor] Respiratory 20 20 22 Rate Respiratory Rate [Anterior Bilateral Throughout] Blood Pressure 104/70 104/70 104/70 O2 Sat by Pulse Oximetry 02/04/19 02/04/19 02/04/19 02:50 03:00 03:10 Temperature Pulse Rate 96 H 99 H 99 H Pulse Rate [ Anterior Bilateral Throughout] Pulse Rate [ From Monitor] Respiratory 20 20 20 Rate Respiratory Rate [Anterior Bilateral Throughout] Blood Pressure 104/70 123/80 123/80 O2 Sat by Pulse Oximetry 02/04/19 02/04/19 02/04/19 03:20 03:27 03:30 Temperature 98.2 F Pulse Rate 98 H 99 H Pulse Rate [ Anterior Bilateral Throughout] Pulse Rate [ From Monitor] Respiratory 18 20 Rate Respiratory Rate [Anterior Bilateral Throughout] Blood Pressure 123/80 123/80 O2 Sat by Pulse 100 Oximetry 02/04/19 02/04/19 02/04/19 03:40 03:48 03:50 Temperature Pulse Rate 97 H 98 H Pulse Rate [ 103 H Anterior Bilateral Throughout] Pulse Rate [ From Monitor] Respiratory 20 20 Rate Respiratory 20 Rate [Anterior Bilateral Throughout] Blood Pressure 123/80 123/80 O2 Sat by Pulse Oximetry 02/04/19 02/04/19 02/04/19 04:00 04:10 04:20 Temperature Pulse Rate 101 H 106 H 102 H Pulse Rate [ Anterior Bilateral Throughout] Pulse Rate [ 102 H From Monitor] Respiratory 20 36 H 22 Rate Respiratory Rate [Anterior Bilateral Throughout] Blood Pressure 128/84 128/84 128/84 O2 Sat by Pulse 100 100 Oximetry 02/04/19 02/04/19 02/04/19 04:30 04:40 04:50 Temperature Pulse Rate 104 H 102 H 102 H Pulse Rate [ Anterior Bilateral Throughout] Pulse Rate [ From Monitor] Respiratory 25 H 21 20 Rate Respiratory Rate [Anterior Bilateral Throughout] Blood Pressure 128/84 128/84 128/84 O2 Sat by Pulse 100 Oximetry 02/04/19 02/04/19 02/04/19 05:00 05:10 05:20 Temperature Pulse Rate 102 H 101 H 103 H Pulse Rate [ Anterior Bilateral Throughout] Pulse Rate [ From Monitor] Respiratory 20 20 18 Rate Respiratory Rate [Anterior Bilateral Throughout] Blood Pressure 123/75 123/75 123/75 O2 Sat by Pulse 89 100 83 L Oximetry 02/04/19 02/04/19 02/04/19 05:30 05:40 05:50 Temperature Pulse Rate 102 H 101 H 100 H Pulse Rate [ Anterior Bilateral Throughout] Pulse Rate [ From Monitor] Respiratory 18 19 18 Rate Respiratory Rate [Anterior Bilateral Throughout] Blood Pressure 123/75 123/75 123/75 O2 Sat by Pulse Oximetry 02/04/19 02/04/19 02/04/19 06:00 06:10 06:20 Temperature Pulse Rate 103 H 102 H 101 H Pulse Rate [ Anterior Bilateral Throughout] Pulse Rate [ From Monitor] Respiratory 21 18 20 Rate Respiratory Rate [Anterior Bilateral Throughout] Blood Pressure 118/71 118/71 118/71 O2 Sat by Pulse 99 96 100 Oximetry 02/04/19 02/04/19 02/04/19 06:30 06:40 06:50 Temperature Pulse Rate 101 H 101 H 103 H Pulse Rate [ Anterior Bilateral Throughout] Pulse Rate [ From Monitor] Respiratory 18 20 22 Rate Respiratory Rate [Anterior Bilateral Throughout] Blood Pressure 118/71 118/71 118/71 O2 Sat by Pulse 98 Oximetry 02/04/19 02/04/19 02/04/19 07:00 07:10 07:20 Temperature Pulse Rate 103 H 104 H 103 H Pulse Rate [ Anterior Bilateral Throughout] Pulse Rate [ From Monitor] Respiratory 18 22 21 Rate Respiratory Rate [Anterior Bilateral Throughout] Blood Pressure 120/79 120/79 120/79 O2 Sat by Pulse Oximetry 02/04/19 02/04/19 02/04/19 07:31 07:41 07:51 Temperature Pulse Rate 102 H 100 H 103 H Pulse Rate [ Anterior Bilateral Throughout] Pulse Rate [ From Monitor] Respiratory 20 19 22 Rate Respiratory Rate [Anterior Bilateral Throughout] Blood Pressure 120/79 120/79 O2 Sat by Pulse 100 Oximetry 02/04/19 02/04/19 02/04/19 08:00 08:05 08:11 Temperature 97.8 F Pulse Rate 100 H 101 H Pulse Rate [ 99 H Anterior Bilateral Throughout] Pulse Rate [ 100 H From Monitor] Respiratory 20 Rate Respiratory 24 Rate [Anterior Bilateral Throughout] Blood Pressure 130/75 130/75 O2 Sat by Pulse 100 99 Oximetry Constitutional: comatose, other (critically ill on ventilator, sedated) Eyes: non-icteric ENT: oropharynx moist Neck: supple Effort: normal Ascultation: Bilateral: other (coarse BS bilaterally improved) Cardiovascular: other (tachy, RR; no mrg) Gastrointestinal: normoactive bowel sounds, soft, non-tender, non-distended Integumentary: normal Extremities: no cyanosis, no edema, pink and warm Neurologic: unable to assess (due to sedation) Psychiatric: other (unable to assess) CBC and BMP: 02/04/19 05:02 02/04/19 05:02 ABG, PT/INR, D-dimer: ABG POC ABG pH 7.443 (7.35-7.45) 02/03/19 05:55 ABG pH 7.470 pH Units (7.350-7.450) H 02/04/19 03:35 POC ABG pCO2 36.6 (35-45) 02/03/19 05:55 ABG pCO2 40.0 mm Hg 02/04/19 03:35 POC ABG pO2 117 (80-105) H 02/03/19 05:55 ABG pO2 81.9 mm Hg (80.0-90.0) 02/04/19 03:35 POC ABG HCO3 25.0 (22-26 mml/L) 02/03/19 05:55 POC ABG Total CO2 26 (23-27mmol/L) 02/03/19 05:55 POC ABG O2 Sat 99 02/03/19 05:55 ABG O2 Saturation 96.8 % (95.0-99.0) 02/04/19 03:35 PT/INR, D-dimer PT 15.8 Sec. (12.2-14.9) H 02/03/19 14:42 INR 1.29 (0.87-1.13) H 02/03/19 14:42 Abnormal lab findings: Abnormal Labs 02/01/19 02/01/19 02/01/19 07:16 07:16 07:16 WBC 17.7 H RBC Hgb Hct RDW 16.9 H Plt Count 62 L Seg Neuts % (Manual) 95.0 H Lymphocytes % (Manual) 0 L Seg Neutrophils # Man 16.8 H Lymphocytes # (Manual) 0.0 L PT 15.0 H INR 1.21 H APTT Thrombin Time 20.0 H POC ABG pH ABG pH POC ABG pO2 ABG HCO3 ABG Base Excess ABG Hemoglobin Oxyhemoglobin Sodium 135 L Potassium Chloride 97.7 L Carbon Dioxide 19 L BUN 51 H Creatinine 4.5 H Glucose 112 H POC Glucose Lactic Acid Calcium Iron TIBC Direct Bilirubin AST Troponin T 0.181 H* C-Reactive Protein Total Protein Albumin LDL Cholesterol Direct 34 L HDL Cholesterol 20 L Vitamin B12 Folate TSH Urine WBC (Auto) 02/01/19 02/01/19 02/01/19 07:29 07:29 07:43 WBC RBC Hgb Hct RDW Plt Count Seg Neuts % (Manual) Lymphocytes % (Manual) Seg Neutrophils # Man Lymphocytes # (Manual) PT INR APTT Thrombin Time POC ABG pH ABG pH POC ABG pO2 ABG HCO3 ABG Base Excess ABG Hemoglobin Oxyhemoglobin Sodium Potassium Chloride Carbon Dioxide BUN Creatinine Glucose POC Glucose Lactic Acid 4.80 H* Calcium Iron TIBC Direct Bilirubin 0.7 H AST 42 H Troponin T C-Reactive Protein Total Protein 8.9 H Albumin 2.3 L LDL Cholesterol Direct HDL Cholesterol Vitamin B12 Folate TSH 8.470 H Urine WBC (Auto) 02/01/19 02/01/19 02/01/19 09:45 11:32 13:50 WBC RBC Hgb Hct RDW Plt Count Seg Neuts % (Manual) Lymphocytes % (Manual) Seg Neutrophils # Man Lymphocytes # (Manual) PT INR APTT Thrombin Time POC ABG pH 7.289 L ABG pH POC ABG pO2 355 H ABG HCO3 ABG Base Excess ABG Hemoglobin Oxyhemoglobin Sodium Potassium Chloride Carbon Dioxide BUN Creatinine Glucose POC Glucose Lactic Acid 4.10 H* Calcium Iron TIBC Direct Bilirubin AST Troponin T C-Reactive Protein Total Protein Albumin LDL Cholesterol Direct HDL Cholesterol Vitamin B12 Folate TSH Urine WBC (Auto) 16.0 H 02/01/19 02/01/19 02/01/19 15:15 16:20 17:03 WBC RBC Hgb Hct RDW Plt Count Seg Neuts % (Manual) Lymphocytes % (Manual) Seg Neutrophils # Man Lymphocytes # (Manual) PT INR APTT Thrombin Time POC ABG pH ABG pH POC ABG pO2 ABG HCO3 ABG Base Excess ABG Hemoglobin Oxyhemoglobin Sodium Potassium Chloride Carbon Dioxide BUN Creatinine Glucose POC Glucose 115 H Lactic Acid 4.50 H* 2.80 H* Calcium Iron TIBC Direct Bilirubin AST Troponin T C-Reactive Protein Total Protein Albumin LDL Cholesterol Direct HDL Cholesterol Vitamin B12 Folate TSH Urine WBC (Auto) 02/01/19 02/01/19 02/02/19 17:04 19:28 05:16 WBC RBC Hgb Hct RDW Plt Count Seg Neuts % (Manual) Lymphocytes % (Manual) Seg Neutrophils # Man Lymphocytes # (Manual) PT INR APTT Thrombin Time POC ABG pH ABG pH POC ABG pO2 148 H ABG HCO3 ABG Base Excess ABG Hemoglobin Oxyhemoglobin Sodium Potassium Chloride 107.1 H Carbon Dioxide 18 L BUN 52 H Creatinine 3.1 H Glucose 120 H POC Glucose Lactic Acid Calcium 7.4 L Iron TIBC Direct Bilirubin AST Troponin T C-Reactive Protein 32.30 H Total Protein Albumin LDL Cholesterol Direct HDL Cholesterol Vitamin B12 Folate TSH Urine WBC (Auto) 02/02/19 02/02/19 02/03/19 05:53 05:53 03:30 WBC 14.3 H RBC 5.16 H Hgb 14.9 H Hct 46.2 H D RDW 16.9 H 17.0 H Plt Count 43 L 18 L* Seg Neuts % (Manual) 93.0 H Lymphocytes % (Manual) 2.0 L Seg Neutrophils # Man 13.3 H Lymphocytes # (Manual) 0.3 L PT INR APTT Thrombin Time POC ABG pH ABG pH POC ABG pO2 ABG HCO3 ABG Base Excess ABG Hemoglobin Oxyhemoglobin Sodium Potassium 5.1 H Chloride Carbon Dioxide 21 L BUN 57 H Creatinine 3.3 H Glucose 147 H POC Glucose Lactic Acid Calcium 7.5 L Iron TIBC Direct Bilirubin AST 51 H Troponin T C-Reactive Protein Total Protein Albumin 1.6 L LDL Cholesterol Direct HDL Cholesterol Vitamin B12 Folate TSH Urine WBC (Auto) 02/03/19 02/03/19 02/03/19 03:30 05:55 14:42 WBC RBC Hgb Hct RDW Plt Count Seg Neuts % (Manual) Lymphocytes % (Manual) Seg Neutrophils # Man Lymphocytes # (Manual) PT INR APTT Thrombin Time POC ABG pH ABG pH POC ABG pO2 117 H ABG HCO3 ABG Base Excess ABG Hemoglobin Oxyhemoglobin Sodium Potassium Chloride Carbon Dioxide BUN 65 H Creatinine 2.7 H Glucose 117 H POC Glucose Lactic Acid Calcium 7.2 L Iron TIBC Direct Bilirubin AST Troponin T C-Reactive Protein Total Protein Albumin LDL Cholesterol Direct HDL Cholesterol Vitamin B12 1468 H Folate TSH Urine WBC (Auto) 02/03/19 02/03/19 02/03/19 14:42 14:42 14:42 WBC RBC 3.17 L Hgb 9.4 L D Hct 28.3 L D RDW 16.9 H Plt Count 18 L* Seg Neuts % (Manual) Lymphocytes % (Manual) Seg Neutrophils # Man Lymphocytes # (Manual) PT INR APTT Thrombin Time POC ABG pH ABG pH POC ABG pO2 ABG HCO3 ABG Base Excess ABG Hemoglobin Oxyhemoglobin Sodium Potassium Chloride Carbon Dioxide BUN Creatinine Glucose POC Glucose Lactic Acid Calcium Iron 11 L TIBC 88 L Direct Bilirubin AST Troponin T C-Reactive Protein Total Protein Albumin LDL Cholesterol Direct HDL Cholesterol Vitamin B12 Folate 5.18 L TSH Urine WBC (Auto) 02/03/19 02/03/19 02/04/19 14:42 14:42 03:35 WBC RBC 3.22 L Hgb 9.5 L Hct 28.5 L RDW 16.4 H Plt Count 18 L* Seg Neuts % (Manual) Lymphocytes % (Manual) Seg Neutrophils # Man Lymphocytes # (Manual) PT 15.8 H INR 1.29 H APTT 38.2 H Thrombin Time POC ABG pH ABG pH 7.470 H POC ABG pO2 ABG HCO3 28.4 H ABG Base Excess 4.5 H ABG Hemoglobin 10.1 L Oxyhemoglobin 94.7 L Sodium Potassium Chloride Carbon Dioxide BUN Creatinine Glucose POC Glucose Lactic Acid Calcium Iron TIBC Direct Bilirubin AST Troponin T C-Reactive Protein Total Protein Albumin LDL Cholesterol Direct HDL Cholesterol Vitamin B12 Folate TSH Urine WBC (Auto) 02/04/19 02/04/19 05:02 05:02 WBC RBC Hgb Hct RDW 16.5 H Plt Count 20 L Seg Neuts % (Manual) 94.0 H Lymphocytes % (Manual) 2.0 L Seg Neutrophils # Man 9.2 H Lymphocytes # (Manual) 0.2 L PT INR APTT Thrombin Time POC ABG pH ABG pH POC ABG pO2 ABG HCO3 ABG Base Excess ABG Hemoglobin Oxyhemoglobin Sodium Potassium Chloride Carbon Dioxide BUN 66 H Creatinine 1.7 H Glucose 127 H POC Glucose Lactic Acid Calcium 7.6 L Iron TIBC Direct Bilirubin AST Troponin T C-Reactive Protein Total Protein Albumin LDL Cholesterol Direct HDL Cholesterol Vitamin B12 Folate TSH Urine WBC (Auto) Chest x-ray: report reviewed, image reviewed (improving)
--- NOTE | 2019-02-04 12:53 | Cat Scan Report ---
CT HEAD WITHOUT CONTRAST INDICATION / CLINICAL INFORMATION: Altered mental status. Ventilator dependent patient. Thrombocytopenia. TECHNIQUE: All CT scans at this location are performed using CT dose reduction for ALARA by means of automated e xposure control. COMPARISON: Head CT 02/01/2019 FINDINGS: HEMORRHAGE: No evidence of intracranial hemorrhage or extra-axial fluid collection. EXTRA-AXIAL SPACES: Cortical sulci, sylvian fissures and basilar cisterns have an unremarkable appear ance. VENTRICULAR SYSTEM: The ventricular system is of normal size and configuration. CEREBRAL PARENCHYMA: Areas of decreased brain parenchymal attenuation are observed in the white matte r of both cerebral hemispheres consistent with microvascular ischemic change which is greater than ex pected given the patient's age of 53 years. There is no indication of recent infarction. MIDLINE SHIFT OR HERNIATION: There is no mass effect. CEREBELLUM / BRAINSTEM: Brainstem and cerebellum have an unremarkable appearance. INTRACRANIAL VESSELS:No abnormalities are identified on this noncontrast head CT. ORBITS: visualized portions of the orbits have an unremarkable appearance. SOFT TISSUES of HEAD: No significant abnormality. CALVARIUM: Evaluation of bone windows reveals no abnormalities. PARANASAL SINUSES / MASTOID AIR CELLS: Coastal thickening is present in the sphenoid sinuses bilatera lly. Paranasal sinuses are otherwise free from inflammatory mucosal disease. Mastoid air cells are no rmally pneumatized. NASOPHARYNX: Fluid accumulation in the posterior nasopharynx is likely due to orotracheal tube and or ogastric tube. IMPRESSION: 1. No acute intracranial abnormality. No significant interval change since 02/01/2019. Signer Name: Sebastian Smiley MD Signed: 02/04/2019 12:49 PM Workstation Name: [id number]
--- NOTE | 2019-02-04 13:18 | Progress Note ---
Assessment and Plan Impression: * Oliguric acute kidney injury secondary to sepsis related ATN vs other --SCr 1.22mg/dl in Sep 2017 * Sepsis * Cellulitis of neck, right --CT Neck: inflammation on the right side of the neck suggestive of cellulitis * Streptococcal bacteremia * Acute encephalopathy * Acute respiratory failure * Metabolic acidosis secondary to lactic acidosis * ?Autoimmune disease * Microscopic hematuria * Proteinuria * Thrombocytopenia Plan: * Renal function improved * Continue conservative management for now * Continue IVF - d/c bicarb gtt and start NS * Vent management per CCM * CHESTER, C3/C4, ANCA pending; HIV negative * Abx per ID * Dose medications for renal function * Avoid potential nephrotoxic agents * Strict I/O Subjective Date of service: 02/04/19 Interval history: No acute events overnight Objective - Vital Signs Vital signs: Vital Signs - 12hr 02/04/19 02/04/19 02/04/19 01:20 01:30 01:40 Temperature Pulse Rate 98 H 96 H 96 H Pulse Rate [ Anterior Bilateral Throughout] Pulse Rate [ From Monitor] Respiratory 20 20 20 Rate Respiratory Rate [Anterior Bilateral Throughout] Blood Pressure 104/62 104/62 104/62 O2 Sat by Pulse Oximetry 02/04/19 02/04/19 02/04/19 01:50 02:00 02:10 Temperature Pulse Rate 98 H 98 H 97 H Pulse Rate [ Anterior Bilateral Throughout] Pulse Rate [ From Monitor] Respiratory 20 20 20 Rate Respiratory Rate [Anterior Bilateral Throughout] Blood Pressure 104/62 104/70 104/70 O2 Sat by Pulse Oximetry 02/04/19 02/04/19 02/04/19 02:20 02:30 02:40 Temperature Pulse Rate 98 H 97 H 101 H Pulse Rate [ Anterior Bilateral Throughout] Pulse Rate [ From Monitor] Respiratory 20 20 22 Rate Respiratory Rate [Anterior Bilateral Throughout] Blood Pressure 104/70 104/70 104/70 O2 Sat by Pulse Oximetry 02/04/19 02/04/19 02/04/19 02:50 03:00 03:10 Temperature Pulse Rate 96 H 99 H 99 H Pulse Rate [ Anterior Bilateral Throughout] Pulse Rate [ From Monitor] Respiratory 20 20 20 Rate Respiratory Rate [Anterior Bilateral Throughout] Blood Pressure 104/70 123/80 123/80 O2 Sat by Pulse Oximetry 02/04/19 02/04/19 02/04/19 03:20 03:27 03:30 Temperature 98.2 F Pulse Rate 98 H 99 H Pulse Rate [ Anterior Bilateral Throughout] Pulse Rate [ From Monitor] Respiratory 18 20 Rate Respiratory Rate [Anterior Bilateral Throughout] Blood Pressure 123/80 123/80 O2 Sat by Pulse 100 Oximetry 02/04/19 02/04/19 02/04/19 03:40 03:48 03:50 Temperature Pulse Rate 97 H 98 H Pulse Rate [ 103 H Anterior Bilateral Throughout] Pulse Rate [ From Monitor] Respiratory 20 20 Rate Respiratory 20 Rate [Anterior Bilateral Throughout] Blood Pressure 123/80 123/80 O2 Sat by Pulse Oximetry 02/04/19 02/04/19 02/04/19 04:00 04:10 04:20 Temperature Pulse Rate 101 H 106 H 102 H Pulse Rate [ Anterior Bilateral Throughout] Pulse Rate [ 102 H From Monitor] Respiratory 20 36 H 22 Rate Respiratory Rate [Anterior Bilateral Throughout] Blood Pressure 128/84 128/84 128/84 O2 Sat by Pulse 100 100 Oximetry 02/04/19 02/04/19 02/04/19 04:30 04:40 04:50 Temperature Pulse Rate 104 H 102 H 102 H Pulse Rate [ Anterior Bilateral Throughout] Pulse Rate [ From Monitor] Respiratory 25 H 21 20 Rate Respiratory Rate [Anterior Bilateral Throughout] Blood Pressure 128/84 128/84 128/84 O2 Sat by Pulse 100 Oximetry 02/04/19 02/04/19 02/04/19 05:00 05:10 05:20 Temperature Pulse Rate 102 H 101 H 103 H Pulse Rate [ Anterior Bilateral Throughout] Pulse Rate [ From Monitor] Respiratory 20 20 18 Rate Respiratory Rate [Anterior Bilateral Throughout] Blood Pressure 123/75 123/75 123/75 O2 Sat by Pulse 89 100 83 L Oximetry 02/04/19 02/04/19 02/04/19 05:30 05:40 05:50 Temperature Pulse Rate 102 H 101 H 100 H Pulse Rate [ Anterior Bilateral Throughout] Pulse Rate [ From Monitor] Respiratory 18 19 18 Rate Respiratory Rate [Anterior Bilateral Throughout] Blood Pressure 123/75 123/75 123/75 O2 Sat by Pulse Oximetry 02/04/19 02/04/19 02/04/19 06:00 06:10 06:20 Temperature Pulse Rate 103 H 102 H 101 H Pulse Rate [ Anterior Bilateral Throughout] Pulse Rate [ From Monitor] Respiratory 21 18 20 Rate Respiratory Rate [Anterior Bilateral Throughout] Blood Pressure 118/71 118/71 118/71 O2 Sat by Pulse 99 96 100 Oximetry 02/04/19 02/04/19 02/04/19 06:30 06:40 06:50 Temperature Pulse Rate 101 H 101 H 103 H Pulse Rate [ Anterior Bilateral Throughout] Pulse Rate [ From Monitor] Respiratory 18 20 22 Rate Respiratory Rate [Anterior Bilateral Throughout] Blood Pressure 118/71 118/71 118/71 O2 Sat by Pulse 98 Oximetry 02/04/19 02/04/19 02/04/19 07:00 07:10 07:20 Temperature Pulse Rate 103 H 104 H 103 H Pulse Rate [ Anterior Bilateral Throughout] Pulse Rate [ From Monitor] Respiratory 18 22 21 Rate Respiratory Rate [Anterior Bilateral Throughout] Blood Pressure 120/79 120/79 120/79 O2 Sat by Pulse Oximetry 02/04/19 02/04/19 02/04/19 07:31 07:41 07:51 Temperature Pulse Rate 102 H 100 H 103 H Pulse Rate [ Anterior Bilateral Throughout] Pulse Rate [ From Monitor] Respiratory 20 19 22 Rate Respiratory Rate [Anterior Bilateral Throughout] Blood Pressure 120/79 120/79 O2 Sat by Pulse 100 Oximetry 02/04/19 02/04/19 02/04/19 08:00 08:05 08:11 Temperature 97.8 F Pulse Rate 100 H 101 H 101 H Pulse Rate [ 99 H Anterior Bilateral Throughout] Pulse Rate [ 100 H From Monitor] Respiratory 20 25 H Rate Respiratory 24 Rate [Anterior Bilateral Throughout] Blood Pressure 130/75 130/75 130/75 O2 Sat by Pulse 100 99 98 Oximetry 02/04/19 02/04/19 02/04/19 08:21 08:31 08:41 Temperature Pulse Rate 97 H 99 H 103 H Pulse Rate [ Anterior Bilateral Throughout] Pulse Rate [ From Monitor] Respiratory 18 18 18 Rate Respiratory Rate [Anterior Bilateral Throughout] Blood Pressure 130/75 130/75 130/75 O2 Sat by Pulse 95 92 91 Oximetry 02/04/19 02/04/19 02/04/19 08:51 09:00 09:11 Temperature Pulse Rate 103 H 107 H 102 H Pulse Rate [ Anterior Bilateral Throughout] Pulse Rate [ From Monitor] Respiratory 19 20 22 Rate Respiratory Rate [Anterior Bilateral Throughout] Blood Pressure 130/75 134/85 134/85 O2 Sat by Pulse 90 90 89 Oximetry 02/04/19 02/04/19 02/04/19 09:21 09:31 09:41 Temperature Pulse Rate 104 H 102 H 101 H Pulse Rate [ Anterior Bilateral Throughout] Pulse Rate [ From Monitor] Respiratory 19 20 19 Rate Respiratory Rate [Anterior Bilateral Throughout] Blood Pressure 134/85 134/85 134/85 O2 Sat by Pulse 91 88 88 Oximetry 02/04/19 02/04/19 02/04/19 09:51 10:00 10:11 Temperature Pulse Rate 102 H 102 H 103 H Pulse Rate [ Anterior Bilateral Throughout] Pulse Rate [ From Monitor] Respiratory 18 18 18 Rate Respiratory Rate [Anterior Bilateral Throughout] Blood Pressure 134/85 129/84 129/84 O2 Sat by Pulse 91 89 90 Oximetry 02/04/19 02/04/19 02/04/19 10:21 10:31 10:41 Temperature Pulse Rate 103 H 101 H 109 H Pulse Rate [ Anterior Bilateral Throughout] Pulse Rate [ From Monitor] Respiratory 22 18 21 Rate Respiratory Rate [Anterior Bilateral Throughout] Blood Pressure 129/84 129/84 129/84 O2 Sat by Pulse 91 91 91 Oximetry 02/04/19 02/04/19 02/04/19 10:51 11:00 11:11 Temperature Pulse Rate 102 H 105 H 100 H Pulse Rate [ Anterior Bilateral Throughout] Pulse Rate [ From Monitor] Respiratory 19 25 H 20 Rate Respiratory Rate [Anterior Bilateral Throughout] Blood Pressure 129/84 135/80 135/80 O2 Sat by Pulse 97 92 99 Oximetry 02/04/19 02/04/19 02/04/19 11:21 11:31 11:41 Temperature Pulse Rate 103 H 103 H 106 H Pulse Rate [ Anterior Bilateral Throughout] Pulse Rate [ From Monitor] Respiratory 21 21 22 Rate Respiratory Rate [Anterior Bilateral Throughout] Blood Pressure 135/80 135/80 135/80 O2 Sat by Pulse 98 98 97 Oximetry 02/04/19 02/04/19 02/04/19 12:00 12:19 12:20 Temperature Pulse Rate 115 H 112 H Pulse Rate [ Anterior Bilateral Throughout] Pulse Rate [ 115 H From Monitor] Respiratory 34 H 32 H Rate Respiratory Rate [Anterior Bilateral Throughout] Blood Pressure 135/80 152/85 O2 Sat by Pulse 100 Oximetry 02/04/19 12:23 Temperature Pulse Rate 107 H Pulse Rate [ Anterior Bilateral Throughout] Pulse Rate [ From Monitor] Respiratory Rate Respiratory Rate [Anterior Bilateral Throughout] Blood Pressure 152/85 O2 Sat by Pulse 97 Oximetry - General Appearance General appearance: well-developed, well-nourished, intubated EENT: ATNC, other (ETT in place) Respiratory: Present: Clear to Ascultation Cardiology: regular, S1S2 Gastrointestinal: normal, no tenderness, no distended Integumentary: warm and dry Musculoskeletal: other (no edema) - Lab 02/04/19 05:02 02/04/19 05:02 Most recent lab results ABG pH 7.470 pH Units (7.350-7.450) H 02/04/19 03:35 ABG pCO2 40.0 mm Hg 02/04/19 03:35 ABG pO2 81.9 mm Hg (80.0-90.0) 02/04/19 03:35 ABG HCO3 28.4 mmol/L (20.0-26.0) H 02/04/19 03:35 ABG O2 Saturation 96.8 % (95.0-99.0) 02/04/19 03:35 Calcium 7.6 mg/dL (8.4-10.2) L 02/04/19 05:02 Medications & Allergies - Medications Allergies/Adverse Reactions: Allergies No Known Allergies Allergy (Verified 08/18/18 09:04) Home Medications: Home Medications Medication Instructions Recorded Confirmed Last Taken Type Levothyroxine [Synthroid] 112 mcg PO QAM 02/01/19 02/01/19 Unknown History Lisinopril [Zestril TAB] 40 mg PO QDAY 02/01/19 02/01/19 Unknown History amLODIPine [Norvasc] 10 mg PO DAILY 02/01/19 02/01/19 Unknown History cloNIDine [Catapres] 1 mg PO QDAY 02/01/19 02/01/19 Unknown History Active Medications: Generic Name Dose Route Start Last Admin Trade Name Freq PRN Reason Stop Dose Admin Acetaminophen 650 mg 02/01/19 10:47 02/03/19 19:51 Tylenol PO 650 mg Q4H PRN Administration Pain MILD(1-3)/Fever >100.5/VALENZUELA Albuterol 2.5 mg 02/01/19 10:47 Proventil IH Q4HRT PRN Shortness Of Breath Albuterol/Ipratropium 1 ampul 02/01/19 12:00 02/04/19 08:11 Duoneb *Not For Prn Use* IH 1 ampul Q6HRT AMOL Administration Famotidine 20 mg 02/03/19 10:00 02/04/19 10:19 Pepcid IV 20 mg QDAY AMOL Administration Hydrophilic Ointment 1 applic 02/01/19 11:09 02/02/19 16:50 Vaseline Lip Therapy TP 1 applic Q2HR PRN Administration Dry Lips Midazolam HCl 100 mg/ Sodium 100 mls @ 2 mls/hr 02/01/19 12:00 02/03/19 07:40 Chloride IV 0 mg/hr TITR AMOL 0 mls/hr Titration Protocol 2 MG/HR Cefepime HCl 1 gm in 100 mls @ 200 mls/hr 02/01/19 12:00 02/04/19 12:54 Maxipime/Ns 1 Gm/100 Ml IV 200 mls/hr Q12H AMOL Administration Protocol Metronidazole 500 mg in 100 mls @ 100 mls/hr 02/01/19 17:00 02/04/19 13:08 Flagyl 500 Mg/100 Ml IV 100 mls/hr Q8HR AMOL Administration Protocol Sodium Bicarbonate 150 meq/ 1,150 mls @ 125 mls/hr 02/01/19 20:00 02/04/19 09:00 Dextrose IV 125 mls/hr DIRECT AMOL Administration Vancomycin HCl 1,250 mg/ 275 mls @ 166.667 mls/hr 02/04/19 10:00 02/04/19 10:19 Sodium Chloride IV 166.667 mls/hr Q24HR AMOL Administration Midazolam HCl 2 mg 02/01/19 11:09 02/01/19 11:42 Versed IV 2 mg Q10MIN PRN Administration Sedation Morphine Sulfate 2 mg 02/01/19 10:47 Morphine IV Q4H PRN Pain, Moderate (4-6) Multi-Ingred Cream/Lotion/Oil/Oint 1 applic 02/01/19 11:09 02/02/19 16:50 Artificial Tears Ophth Oint OU 1 applic Q4HR PRN Administration Dry Eye(s) Ondansetron HCl 4 mg 02/01/19 10:47 Zofran IV Q8H PRN Nausea And Vomiting Sodium Chloride 10 ml 02/01/19 22:00 02/04/19 10:19 Sodium Chloride Flush Syringe 10 Ml IV 10 ml BID AMOL Administration Sodium Chloride 10 ml 08/15/19 10:47 Sodium Chloride Flush Syringe 10 Ml IV PRN PRN LINE FLUSH
--- NOTE | 2019-02-04 13:58 | Progress Note ---
Assessment and Plan Assessment and plan: Septic shock - Source of infection is likely from the sore throat, CT of the neck showed inflammation/cellulitis - Patient had a fever of 101.8 - Lactic acid level was 4.8 - Patient is being treated according to sepsis protocol with cefepime, flagyl and vancomycin - Follow blood culture - ID consult appreciated Acute metabolic encephalopathy - CT head is negative, telemetry neurology consulted and doesn't think it is stroke - neurology consult appreciated Acute respiratory failure -Patient is intubated and on mechanical ventilation Type 2 MD - Patient has elevated troponin level, could be due to her renal failure versus septic shock Acute on chronic renal failure due to ATN -Nephrology following -ANCA, C3,C4 , CRP ordered Hypothyroidism - TSH 8.47 normal free T4 level - We'll resume Synthroid Coagulation abnormality - Likely due to septic shock UTI - Continue antibiotics - Urine culture Thrombocytopenia - Discussed with Dr. Diaz and he recommended that a repeat CBC in 12 hours and if platelet is lower, transfuse her - Check B12, folate, iron, ferritin fibrinogen level. If fibrinogen level is less than 100 recommended to give 10 units of cryo CODE Status; Full The high probability of a clinically significant, sudden or life threatening deterioration of the [CV, Neurology, renal] system(s) required my full and direct attention, intervention and personal management. The aggregate critical care time was [45] minutes. This time is in addition to time spent performing reported procedures but includes the following: [x] Data Review and interpretation [x] Patient assessment and monitoring of vital signs [x] Documentation [x] Medication orders and management Patient was seen and evaluated his morning. Patient is on mechanical ventilation. Hospitalist Physical - Physical exam Narrative exam: Patient is in cardiopulmonary distress. The patient appeared well nourished and normally developed. Vital signs as documented. Head exam is unremarkable. No scleral icterus . Neck is without jugular venous distension, thyromegaly, or carotid bruits. Lungs; tachypnic, BBS. Cardiac exam reveals regular rate and Rhythm. Abdominal exam reveals normal bowel sounds, no masses, no organomegaly and no aortic enlargement. Extremities are nonedematous and both femoral and pedal pulses are normal. STAGING TECHNICIAN: sedated. Hospitalist Physical - Constitutional Vitals: Temp Pulse Resp BP Pulse Ox 97.8 F 107 H 32 H 152/85 97 02/04/19 08:00 02/04/19 12:23 02/04/19 12:20 02/04/19 12:23 02/04/19 12:23 Results - Labs CBC & Chem 7: 02/24/19 10:52 02/24/19 10:52 Labs: Laboratory Last Values WBC 9.8 K/mm3 (4.5-11.0) 02/04/19 05:02 RBC 3.66 M/mm3 (3.65-5.03) 02/04/19 05:02 Hgb 10.7 gm/dl (10.1-14.3) 02/04/19 05:02 Hct 33.0 % (30.3-42.9) 02/04/19 05:02 MCV 90 fl (79-97) 02/04/19 05:02 MCH 29 pg (28-32) 02/04/19 05:02 MCHC 33 % (30-34) 02/04/19 05:02 RDW 16.5 % (13.2-15.2) H 02/04/19 05:02 Plt Count 20 K/mm3 (140-440) L 02/04/19 05:02 Lymph % (Auto) Outside Plant Cable Engineer 02/03/19 03:30 [place] % (Auto) Outside Plant Cable Engineer 02/03/19 03:30 Eos % (Auto) Outside Plant Cable Engineer 02/03/19 03:30 Baso % (Auto) Outside Plant Cable Engineer 02/03/19 03:30 Lymph # Outside Plant Cable Engineer 02/03/19 03:30 [place] # Outside Plant Cable Engineer 02/03/19 03:30 Eos # Outside Plant Cable Engineer 02/03/19 03:30 Baso # Outside Plant Cable Engineer 02/03/19 03:30 Add Manual Diff Complete 02/04/19 05:02 Total Counted 100 02/04/19 05:02 Seg Neutrophils % Outside Plant Cable Engineer 02/03/19 03:30 Seg Neuts % (Manual) 94.0 % (40.0-70.0) H 02/04/19 05:02 2.0 % 02/04/19 05:02 2.0 % (13.4-35.0) L 02/04/19 05:02 Reactive Lymphs % (Man) 0 % 02/04/19 05:02 2.0 % (0.0-7.3) 02/04/19 05:02 0 % (0.0-4.3) 02/04/19 05:02 0 % (0.0-1.8) 02/04/19 05:02 0 % 02/04/19 05:02 0 % 02/04/19 05:02 0 % 02/04/19 05:02 0 % 02/04/19 05:02 Nucleated RBC % Not Reportable 02/04/19 05:02 Seg Neutrophils # Outside Plant Cable Engineer 02/03/19 03:30 Seg Neutrophils # Man 9.2 K/mm3 (1.8-7.7) H 02/04/19 05:02 Band Neutrophils # 0.2 K/mm3 02/04/19 05:02 0.2 K/mm3 (1.2-5.4) L 02/04/19 05:02 Abs React Lymphs (Man) 0.0 K/mm3 02/04/19 05:02 0.2 K/mm3 (0.0-0.8) 02/04/19 05:02 0.0 K/mm3 (0.0-0.4) 02/04/19 05:02 0.0 K/mm3 (0.0-0.1) 02/04/19 05:02 0.0 K/mm3 02/04/19 05:02 0.0 K/mm3 02/04/19 05:02 0.0 K/mm3 02/04/19 05:02 Blast Cells # 0.0 K/mm3 02/04/19 05:02 WBC Morphology Not Reportable 02/04/19 05:02 Hypersegmented Neuts Not Reportable 02/04/19 05:02 Hyposegmented Neuts Not Reportable 02/04/19 05:02 Hypogranular Neuts Not Reportable 02/04/19 05:02 Cancelled 02/01/19 07:16 Not Reportable 02/04/19 05:02 Not Reportable 02/04/19 05:02 Not Reportable 02/04/19 05:02 Not Reportable 02/04/19 05:02 Not Reportable 02/04/19 05:02 Not Reportable 02/04/19 05:02 Consistent w auto 02/04/19 05:02 Not Reportable 02/04/19 05:02 Plt Clumps, EDTA Not Reportable 02/04/19 05:02 Not Reportable 02/04/19 05:02 Not Reportable 02/04/19 05:02 Not Reportable 02/04/19 05:02 Plt Morphology Comment Not Reportable 02/04/19 05:02 RBC Morphology Not Reportable 02/04/19 05:02 Dimorphic RBCs Not Reportable 02/04/19 05:02 Not Reportable 02/04/19 05:02 Not Reportable 02/04/19 05:02 Not Reportable 02/04/19 05:02 Cancelled 02/01/19 07:16 1+ 02/04/19 05:02 Few 02/04/19 05:02 Not Reportable 02/04/19 05:02 Not Reportable 02/04/19 05:02 Not Reportable 02/04/19 05:02 Not Reportable 02/04/19 05:02 Not Reportable 02/04/19 05:02 Not Reportable 02/04/19 05:02 Not Reportable 02/04/19 05:02 Cancelled 02/01/19 07:16 Not Reportable 02/04/19 05:02 Not Reportable 02/04/19 05:02 Not Reportable 02/04/19 05:02 Not Reportable 02/04/19 05:02 Not Reportable 02/04/19 05:02 Not Reportable 02/04/19 05:02 Not Reportable 02/04/19 05:02 Acanthocytes (Spur) Not Reportable 02/04/19 05:02 Rouleaux Not Reportable 02/04/19 05:02 Not Reportable 02/04/19 05:02 Not Reportable 02/04/19 05:02 Not Reportable 02/04/19 05:02 ESR 76 mm/Hr (0-20) 02/01/19 16:51 Not Reportable 02/04/19 05:02 Hem Pathologist Commnt No 02/04/19 05:02 PT 15.8 Sec. (12.2-14.9) H 02/03/19 14:42 INR 1.29 (0.87-1.13) H 02/03/19 14:42 APTT 38.2 Sec. (24.2-36.6) H 02/03/19 14:42 20.0 Sec. (15.1-19.6) H 02/01/19 07:16 479 mg/dl (211-480) 02/03/19 14:42 POC ABG pH 7.443 (7.35-7.45) 02/03/19 05:55 ABG pH 7.470 pH Units (7.350-7.450) H 02/04/19 03:35 POC ABG pCO2 36.6 (35-45) 02/03/19 05:55 ABG pCO2 40.0 mm Hg 02/04/19 03:35 POC ABG pO2 117 (80-105) H 02/03/19 05:55 ABG pO2 81.9 mm Hg (80.0-90.0) 02/04/19 03:35 POC ABG HCO3 25.0 (22-26 mml/L) 02/03/19 05:55 ABG HCO3 28.4 mmol/L (20.0-26.0) H 02/04/19 03:35 POC ABG Total CO2 26 (23-27mmol/L) 02/03/19 05:55 POC ABG O2 Sat 99 02/03/19 05:55 ABG O2 Saturation 96.8 % (95.0-99.0) 02/04/19 03:35 ABG O2 Content 13.5 (0.0-44) 02/04/19 03:35 POC ABG Base Excess 1 ((-2) - (+3)mmol/L) 02/03/19 05:55 ABG Base Excess 4.5 mmol/L (-2.0-3.0) H 02/04/19 03:35 ABG Hemoglobin 10.1 gm/dl (12.0-16.0) L 02/04/19 03:35 ABG Carboxyhemoglobin 1.6 % (0.0-5.0) 02/04/19 03:35 ABG Methemoglobin 0.6 % (0.0-1.5) 02/04/19 03:35 94.7 % (95.0-99.0) L 02/04/19 03:35 25 % 02/04/19 03:35 Sodium 138 mmol/L (137-145) 02/04/19 05:02 Potassium 4.4 mmol/L (3.6-5.0) 02/04/19 05:02 Chloride 100.3 mmol/L (98-107) 02/04/19 05:02 Carbon Dioxide 27 mmol/L (22-30) 02/04/19 05:02 15 mmol/L 02/04/19 05:02 BUN 66 mg/dL (7-17) H 02/04/19 05:02 1.7 mg/dL (0.7-1.2) H 02/04/19 05:02 Estimated GFR 38 ml/min 02/04/19 05:02 39 % 02/04/19 05:02 Glucose 127 mg/dL (65-100) H 02/04/19 05:02 POC Glucose 115 (70-105) H 02/01/19 16:20 Lactic Acid 1.40 mmol/L (0.7-2.0) 02/01/19 20:57 Calcium 7.6 mg/dL (8.4-10.2) L 02/04/19 05:02 Iron 11 ug/dL (37-170) L 02/03/19 14:42 TIBC 88 mcg/dL (250-450) L 02/03/19 14:42 332.9 ng/mL (13.0-400.0) 02/03/19 14:42 0.90 mg/dL (0.1-1.2) 02/02/19 05:53 0.7 mg/dL (0-0.2) H 02/01/19 07:29 0.5 mg/dL 02/01/19 07:29 AST 51 units/L (5-40) H 02/02/19 05:53 ALT 16 units/L (7-56) 02/02/19 05:53 76 units/L (35-129) 02/02/19 05:53 0.181 ng/mL (0.00-0.029) H* 02/01/19 07:16 32.30 mg/dL (0.00-1.30) H 02/01/19 17:04 8.0 g/dL (6.3-8.2) 02/02/19 05:53 1.6 g/dL (3.9-5) L 02/02/19 05:53 0.3 % 02/02/19 05:53 Triglycerides 95 mg/dL (2-149) 02/01/19 07:16 Cholesterol 75 mg/dL (50-199) 02/01/19 07:16 34 mg/dL (50-130) L 02/01/19 07:16 20 mg/dL (40-59) L 02/01/19 07:16 3.75 % 02/01/19 07:16 Vitamin B12 1468 pg/mL (211-911) H 02/03/19 14:42 5.18 ng/mL (7.3-26.0) L 02/03/19 14:42 TSH 8.470 mlU/mL (0.270-4.200) H 02/01/19 07:43 Free T4 1.08 ng/dL (0.76-1.46) 02/01/19 07:43 Sara (Yellow) 02/01/19 09:45 Cloudy (Clear) 02/01/19 09:45 5.0 (5.0-7.0) 02/01/19 09:45 Ur Specific Schwertner 1.019 (1.003-1.030) 02/01/19 09:45 >500 mg/dL (Negative) 02/01/19 09:45 Neg mg/dL (Negative) 02/01/19 09:45 Neg mg/dL (Negative) 02/01/19 09:45 Mod (Negative) 02/01/19 09:45 Neg (Negative) 02/01/19 09:45 Neg (Negative) 02/01/19 09:45 < 2.0 mg/dL (<2.0) 02/01/19 09:45 Ur Leukocyte Esterase Neg (Negative) 02/01/19 09:45 16.0 /HPF (0.0-6.0) H 02/01/19 09:45 77.0 /HPF (0.0-6.0) 02/01/19 09:45 U Epithel Cells (Auto) 2.0 /HPF (0-13.0) 02/01/19 09:45 Amorphous Crystals 1+ 02/01/19 09:45 Few /HPF 02/01/19 09:45 Random Vancomycin 9.8 ug/mL (0-40.0) 02/03/19 03:30 RPR Nonreactive (Nonreactive) 02/02/19 15:45 Hepatitis A IgM Ab Non-reactive (NonReactive) 02/02/19 19:29 Hep Bs Antigen Non-reactive (Negative) 02/02/19 19:29 Hep B Core IgM Ab Non-reactive (NonReactive) 02/02/19 19:29 Non-reactive (NonReactive) 02/02/19 19:29 HIV 1&2 Antibody Rapid Non react (Non React) 02/02/19 15:46 Non react (Non React) 02/02/19 15:46 Active Medications - Current Medications Current Medications: Generic Name Dose Route Start Last Admin Trade Name Freq PRN Reason Stop Dose Admin Acetaminophen 650 mg 02/01/19 10:47 02/03/19 19:51 Tylenol PO 650 mg Q4H PRN Administration Pain MILD(1-3)/Fever >100.5/VALENZUELA Albuterol 2.5 mg 02/01/19 10:47 Proventil IH Q4HRT PRN Shortness Of Breath Albuterol/Ipratropium 1 ampul 02/01/19 12:00 02/04/19 08:11 Duoneb *Not For Prn Use* IH 1 ampul Q6HRT AMOL Administration Famotidine 20 mg 02/03/19 10:00 02/04/19 10:19 Pepcid IV 20 mg QDAY AMOL Administration Hydrophilic Ointment 1 applic 02/01/19 11:09 02/02/19 16:50 Vaseline Lip Therapy TP 1 applic Q2HR PRN Administration Dry Lips Midazolam HCl 100 mg/ Sodium 100 mls @ 2 mls/hr 02/01/19 12:00 02/03/19 07:40 Chloride IV 0 mg/hr TITR AMOL 0 mls/hr Titration Protocol 2 MG/HR Cefepime HCl 1 gm in 100 mls @ 200 mls/hr 02/01/19 12:00 02/04/19 12:54 Maxipime/Ns 1 Gm/100 Ml IV 200 mls/hr Q12H AMOL Administration Protocol Metronidazole 500 mg in 100 mls @ 100 mls/hr 02/01/19 17:00 02/04/19 13:08 Flagyl 500 Mg/100 Ml IV 100 mls/hr Q8HR AMOL Administration Protocol Sodium Bicarbonate 150 meq/ 1,150 mls @ 125 mls/hr 02/01/19 20:00 02/04/19 09:00 Dextrose IV 125 mls/hr DIRECT AMOL Administration Vancomycin HCl 1,250 mg/ 275 mls @ 166.667 mls/hr 02/04/19 10:00 02/04/19 10:19 Sodium Chloride IV 166.667 mls/hr Q24HR AMOL Administration Midazolam HCl 2 mg 02/01/19 11:09 02/01/19 11:42 Versed IV 2 mg Q10MIN PRN Administration Sedation Morphine Sulfate 2 mg 02/01/19 10:47 Morphine IV Q4H PRN Pain, Moderate (4-6) Multi-Ingred Cream/Lotion/Oil/Oint 1 applic 02/01/19 11:09 02/02/19 16:50 Artificial Tears Ophth Oint OU 1 applic Q4HR PRN Administration Dry Eye(s) Ondansetron HCl 4 mg 02/01/19 10:47 Zofran IV Q8H PRN Nausea And Vomiting Sodium Chloride 10 ml 02/01/19 22:00 02/04/19 10:19 Sodium Chloride Flush Syringe 10 Ml IV 10 ml BID AMOL Administration Sodium Chloride 10 ml 02/01/19 10:47 Sodium Chloride Flush Syringe 10 Ml IV PRN PRN LINE FLUSH Nutrition/Malnutrition Assess - Dietary Evaluation Nutrition/Malnutrition Findings: Nutrition Notes Start: 02/02/19 15:11 Freq: Status: Active Protocol: Document 02/02/19 15:11 RM (Rec: 02/02/19 15:29 RM [id number]) Nutrition Notes Need for Assessment generated from: MD Order Initial or Follow up Assessment Current Diagnosis Acute Kidney Injury Other Pertinent Diagnosis Hypothyroidism, Septic shock, Acute encephalopathy, UTI Current Diet NPO Labs/Tests K 5.1 Pertinent Medications Reviewed Height 5 ft 5 in Weight 84.3 kg Leiter Body Weight (kg) 56.81 BMI 30.9 Subjective/Other Information Consulted for evaluation of nutritional intake. Pt in ED waiting for transfer to ICU. Pt on vent. Burn Absent Trauma Absent #1 Nutrition Diagnosis Inadequate oral intake Etiology on vent As Evidenced by Signs and Symptoms NPO status Is patient on ventilator? Yes Is Patient Ambulatory and/or Out of Bed No REE-([facility]-confined to bed) 1754.532 Kcal/Kg value to use for calculation 17 Approximate Energy Requirements Using 1433 kcal/Kg Calculation Used for Recommendations Kcal/kg Additional Notes Protein Needs: 114g (2g/kg IBW ) Fluid Needs: 1 ml/kcal Nutrition Intervention Change Diet Order: TF consult Nutrition Support: Vital 1.2 at 50 ml/hr Water flush of 100 mls q 4 hrs Kcal 1,440 Protein (gm) 90 Goal #1 TF consult Anticipated Discharge Needs: Unable to determine at this time Follow-Up By: 02/05/19 Additional Comments Follow for TF consult
[2019-02-04] MEDS: ACETAMINOPHEN 325 MG TAB PO PRN (17:02)
[2019-02-04] MEDS: SODIUM CHLORIDE 0.9% 1000 ML 1,000 ML IV SCH (17:12)
--- NOTE | 2019-02-04 17:16 | Event Note ---
Date: 02/04/19 [id number]
--- NOTE | 2019-02-04 17:39 | Progress Note ---
Assessment and Plan Cultures: 02/01/2019 blood culture: Strep spp in 09/2102/01/2019 urine culture: no growth 02/01/2019 tracheal aspirate: usual resp. silvana A/P: 53-year-old female with hypothyroidism, hypertension, ?autoimmune disease. Admitted with: 1) Severe sepsis with Strep bacteremia: Leukocytosis, thrombocytopenia, lactic acidosis. Source appears to be the right neck induration / cellulitis as well as bilateral pneumonia. Mother notes significant improvement. Will follow up final culture report and de-escalate as necessary. 2) Right neck cellulitis and induration v/s severe lymphadenopathy: CT neck was without contrast, hence limited eval of vasculature. Neck US revealed extensive R neck lymphadenopathy, no abscess. 3) Bilateral pneumonia: sputum culture shows resp silvana 4) Acute renal failure: renally dose abx. Nephrology following. 5) ?Autoimmune disease: need more history. Unclear if she is on any kind of immunosuppression. f/u CHESTER, C3, C4, ANCA. Recs: continue IV Cefepime, Flagyl and Vancomycin, renally adjusted f/u respiratory culture, CHESTER, C3, C4 TTE ordered repeat blood cultures ordered Bartonella serologies pending(patient intubated, critically ill, unable to provide consent, no family available currently, ) once creatinine improves, may need CT chest, abdomen pelvis with IV contrast to evaluate for other lymphadenopathy Edith Mi MD [facility] M: [phone] O: [phone] F: [phone] Subjective Date of service: 02/04/19 Interval history: Remains on vent. Didn't rouse to voice. Objective - Exam Narrative Exam: Physical Exam: Constitutional: intubated Head, Ears, Nose: Normocephalic, atraumatic. External ears, nose normal Eyes: Conjunctivae/corneas clear. No icterus. No ptosis. Neck: induration on the R side of the neck Oral: intubated Cardiovascular: S1, S2 normal. Respiratory: coarse sounds bilaterally GI: Soft, non-tender; bowel sounds normal. No peritoneal signs Musculoskeletal: No pedal edema, no cyanosis. Skin: No rash or abscess Hem/Lymphatic: No palpable cervical or supraclavicular nodes. No lymphangitis Psych: no agitation Neurological: off sedation, still not responsive yet, intubated, on vent - Constitutional Vitals: Vital Signs Temp Pulse Resp BP Pulse Ox 101 F H 105 H 19 129/80 96 02/04/19 12:00 02/04/19 17:21 02/04/19 17:21 02/04/19 17:21 02/04/19 17:21 Temperature -Last 24 Hours Temperature 101 F Temperature 97.8 F Temperature 98.2 F Temperature 99.8 F Temperature 102 F - Labs CBC & Chem 7: 02/04/19 05:02 02/04/19 05:02 Labs: Abnormal lab results 02/04/19 02/04/19 02/04/19 Range/Units 03:35 05:02 05:02 RDW 16.5 H (13.2-15.2) % Plt Count 20 L (140-440) K/mm3 Seg Neuts % (Manual) 94.0 H (40.0-70.0) % Lymphocytes % (Manual) 2.0 L (13.4-35.0) % Seg Neutrophils # Man 9.2 H (1.8-7.7) K/mm3 Lymphocytes # (Manual) 0.2 L (1.2-5.4) K/mm3 ABG pH 7.470 H (7.350-7.450) pH Units ABG HCO3 28.4 H (20.0-26.0) mmol/L ABG Base Excess 4.5 H (-2.0-3.0) mmol/L ABG Hemoglobin 10.1 L (12.0-16.0) gm/dl Oxyhemoglobin 94.7 L (95.0-99.0) % BUN 66 H (7-17) mg/dL Creatinine 1.7 H (0.7-1.2) mg/dL Glucose 127 H (65-100) mg/dL Calcium 7.6 L (8.4-10.2) mg/dL
[2019-02-05] MEDS: CEFEPIME/NS 1 GM/100 ML 1 GM/100 ML BAG IV SCH
[2019-02-05] MEDS: SODIUM CHLORIDE 0.9% 1000 ML 1,000 ML IV SCH ×3 (01:47→22:12)
--- NOTE | 2019-02-05 03:07 | XRay Report ---
CHEST 1 VIEW 2:19 AM INDICATION / CLINICAL INFORMATION: Follow up respiratory failure. COMPARISON: Yesterday. FINDINGS: SUPPORT DEVICES: The positions of the endotracheal and nasogastric tubes have not changed. HEART / MEDIASTINUM: Unchanged. LUNGS / PLEURA: Parenchymal disease in the right mid to lower lung and left lower lung has increased. No pneumothorax. ADDITIONAL FINDINGS: No significant additional findings. IMPRESSION: Increasing parenchymal disease in the mid to lower lung zones, especially on the right. Signer Name: Krunal Crowder MD Signed: 02/05/2019 3:03 AM Workstation Name: [id number]
[2019-02-05] MEDS: IPRATROPIUM/ALBUTEROL SULFATE 3 ML AMPUL.NEB IH SCH ×4 (05:14→19:43)
[2019-02-05 05:26] LABS: ABG Base Excess 3.9 mmol/L (-2.0-3.0); ABG HCO3 27.5 mmol/L (20.0-26.0); ABG Methemoglobin 0.6 % (0.0-1.5); ABG Oxygen Saturation 97.1 % (95.0-99.0); ABG PCO2 37.3 mm Hg; ABG PH 7.485 pH Units (7.350-7.450)
[2019-02-05] MEDS: metroNIDAZOLE/NS 500 MG/100 ML 500 MG/100 ML BAG IV SCH (06:39)
--- NOTE | 2019-02-05 07:48 | Hem/Onc Progress Note ---
Assessment and Plan 1. Thrombocytopenia, sepsis/infection/antibiotic related. Folate level is low, B12 is normal. Serum iron is low, but ferritin is not low. HIV negative. Fibrinogen level is not low. PT, PTT is not abnormal. Supportive care at this time will help the patient. 2. Diabetes. 3. Hypothyroidism. 4. History of renal impairment, on supportive care. 5. Intubation for respiratory issues. 6. Neurology team saw the patient. Neurology thinks it is septic metabolic encephalopathy. I will follow the patient during inpatient stay. - Patient Problems (1) Thrombocytopenia Current Visit: Yes Status: Acute Subjective Date of service: 02/05/19 Principal diagnosis: low plt Interval history: not awake Objective - Exam Narrative Exam: Pain - not evaluable General appearance intubated Performance status complete dependent Eyes - no icterus ENT - no bleeding - on vent LNs cervical not palpable Neck - no LN Respiratory Normal Breath sounds - CTA anteriorly CVS S1 S2 + Extremities normal temperature General GI Soft Rectal deferred female - deferred Skin warm Musculoskeletal not moving Neurologically not responding - Constitutional Vitals: Last Vital Signs Temp 98.4 F 02/05/19 03:48 Pulse 103 H 02/05/19 07:31 Resp 18 02/05/19 05:19 BP 133/79 02/05/19 07:31 Pulse Ox 96 02/05/19 07:31 - Labs Lab Results: Laboratory Results - last 24 hr 02/01/19 02/01/19 02/05/19 16:51 16:51 03:50 ABG pH 7.485 H ABG pCO2 37.3 ABG pO2 85.0 ABG HCO3 27.5 H ABG O2 Saturation 97.1 ABG O2 Content 12.2 ABG Base Excess 3.9 H ABG Hemoglobin 9.1 L ABG Carboxyhemoglobin 1.8 ABG Methemoglobin 0.6 Oxyhemoglobin 94.8 L FiO2 25 Complement C3 36 L Complement C4 12 L Medications & Allergies - Medications Allergies/Adverse Reactions: Allergies No Known Allergies Allergy (Verified 08/18/18 09:04) Home Medications: Home Medications Medication Instructions Recorded Confirmed Last Taken Type Levothyroxine [Synthroid] 112 mcg PO QAM 02/01/19 02/01/19 Unknown History Lisinopril [Zestril TAB] 40 mg PO QDAY 02/01/19 02/01/19 Unknown History RX: cloNIDine [Catapres] 1 mg PO QDAY 02/01/19 02/01/19 Unknown History amLODIPine [Norvasc] 10 mg PO DAILY 02/01/19 02/01/19 Unknown History Active Medications: Generic Name Dose Route Start Last Admin Trade Name Freq PRN Reason Stop Dose Admin Acetaminophen 650 mg 02/01/19 10:47 02/04/19 17:02 Tylenol PO 650 mg Q4H PRN Administration Pain MILD(1-3)/Fever >100.5/VALENZUELA Albuterol 2.5 mg 02/01/19 10:47 Proventil IH Q4HRT PRN Shortness Of Breath Albuterol/Ipratropium 1 ampul 02/01/19 12:00 02/05/19 05:14 Duoneb *Not For Prn Use* IH 1 ampul Q6HRT AMOL Administration Famotidine 20 mg 02/03/19 10:00 02/04/19 10:19 Pepcid IV 20 mg QDAY AMOL Administration Hydrophilic Ointment 1 applic 02/01/19 11:09 02/02/19 16:50 Vaseline Lip Therapy TP 1 applic Q2HR PRN Administration Dry Lips Midazolam HCl 100 mg/ Sodium 100 mls @ 2 mls/hr 02/01/19 12:00 02/03/19 07:40 Chloride IV 0 mg/hr TITR AMOL 0 mls/hr Titration Protocol 2 MG/HR Cefepime HCl 1 gm in 100 mls @ 200 mls/hr 02/01/19 12:00 02/05/19 00:00 Maxipime/Ns 1 Gm/100 Ml IV 200 mls/hr Q12H AMOL Administration Protocol Metronidazole 500 mg in 100 mls @ 100 mls/hr 02/01/19 17:00 02/05/19 06:39 Flagyl 500 Mg/100 Ml IV 100 mls/hr Q8HR AMOL Administration Protocol Vancomycin HCl 1,250 mg/ 275 mls @ 166.667 mls/hr 02/04/19 10:00 02/04/19 10:19 Sodium Chloride IV 166.667 mls/hr Q24HR AMOL Administration Sodium Chloride 1,000 mls @ 125 mls/hr 02/04/19 18:00 02/05/19 01:47 Nacl 0.9% 1000 Ml IV 125 mls/hr DIRECT AMOL Administration Midazolam HCl 2 mg 02/01/19 11:09 02/01/19 11:42 Versed IV 2 mg Q10MIN PRN Administration Sedation Morphine Sulfate 2 mg 02/01/19 10:47 Morphine IV Q4H PRN Pain, Moderate (4-6) Multi-Ingred Cream/Lotion/Oil/Oint 1 applic 02/01/19 11:09 02/02/19 16:50 Artificial Tears Ophth Oint OU 1 applic Q4HR PRN Administration Dry Eye(s) Ondansetron HCl 4 mg 02/01/19 10:47 Zofran IV Q8H PRN Nausea And Vomiting Sodium Chloride 10 ml 02/01/19 22:00 02/04/19 21:23 Sodium Chloride Flush Syringe 10 Ml IV 10 ml BID AMOL Administration Sodium Chloride 10 ml 02/01/19 10:47 Sodium Chloride Flush Syringe 10 Ml IV PRN PRN LINE FLUSH
[2019-02-05] MEDS: FAMOTIDINE 20 MG/2 ML INJ IV SCH (09:42)
[2019-02-05] MEDS: VANCOMYCIN 1,250 MG in SODIUM CHLORIDE 0.9% 250ML 250 ML IV SCH (10:00)
--- NOTE | 2019-02-05 10:54 | Progress Note ---
Assessment and Plan Impression: * Oliguric acute kidney injury secondary to sepsis related ATN --SCr 1.22mg/dl in Sep 2017 * Sepsis * Cellulitis of neck, right --CT Neck: inflammation on the right side of the neck suggestive of cellulitis * Streptococcal bacteremia * Acute encephalopathy * Acute respiratory failure * Metabolic acidosis secondary to lactic acidosis * ?Autoimmune disease * Microscopic hematuria * Proteinuria * Thrombocytopenia Plan: * Renal function improving with supportive measures, no indications for renal replacement therapy * Continue conservative management for now * Continue NS as tolerated for IVF * Vent management per CCM * CHESTER, ANCA pending; HIV negative. Complements low likely in setting of acute infection * Abx per ID * Management of platelet abnormalities per hematology * Dose medications for renal function * Avoid potential nephrotoxic agents * Strict I/O Subjective Date of service: 02/05/19 Principal diagnosis: septic shock Interval history: no acute changes overnight. remains intubated Objective - Exam Narrative Exam: General appearance: well-developed, well-nourished, intubated EENT: ATNC, ETT in place Respiratory: coarse mechanical breath sounds noted Cardiology: regular, S1S2 Gastrointestinal: normal, no tenderness, no distended Integumentary: warm and dry Musculoskeletal: no edema - Vital Signs Vital signs: Vital Signs - 12hr 02/04/19 02/04/19 02/04/19 23:00 23:11 23:20 Temperature 98.2 F Pulse Rate 109 H 108 H Pulse Rate [ Anterior Bilateral Throughout] Pulse Rate [ From Monitor] Respiratory 21 17 Rate Respiratory Rate [Anterior Bilateral Throughout] Blood Pressure 123/66 123/66 O2 Sat by Pulse 96 96 Oximetry 02/04/19 02/04/19 02/04/19 23:21 23:31 23:41 Temperature Pulse Rate 109 H 109 H 108 H Pulse Rate [ Anterior Bilateral Throughout] Pulse Rate [ From Monitor] Respiratory 24 21 26 H Rate Respiratory Rate [Anterior Bilateral Throughout] Blood Pressure 123/66 123/66 123/66 O2 Sat by Pulse 96 97 97 Oximetry 02/04/19 02/04/19 02/05/19 23:47 23:51 00:00 Temperature Pulse Rate 109 H 108 H 109 H Pulse Rate [ Anterior Bilateral Throughout] Pulse Rate [ 107 H From Monitor] Respiratory 19 25 H 22 Rate Respiratory Rate [Anterior Bilateral Throughout] Blood Pressure 123/66 123/66 121/71 O2 Sat by Pulse 96 97 96 Oximetry 02/05/19 02/05/19 02/05/19 00:11 00:21 00:30 Temperature Pulse Rate 108 H 109 H 108 H Pulse Rate [ Anterior Bilateral Throughout] Pulse Rate [ From Monitor] Respiratory 21 20 Rate Respiratory Rate [Anterior Bilateral Throughout] Blood Pressure 121/71 121/71 121/71 O2 Sat by Pulse 96 96 96 Oximetry 02/05/19 02/05/19 02/05/19 00:31 00:41 00:51 Temperature Pulse Rate 109 H 108 H 108 H Pulse Rate [ Anterior Bilateral Throughout] Pulse Rate [ From Monitor] Respiratory 19 20 23 Rate Respiratory Rate [Anterior Bilateral Throughout] Blood Pressure 121/71 121/71 121/71 O2 Sat by Pulse 96 96 97 Oximetry 02/05/19 02/05/19 02/05/19 01:00 01:11 01:21 Temperature Pulse Rate 110 H 108 H 108 H Pulse Rate [ Anterior Bilateral Throughout] Pulse Rate [ From Monitor] Respiratory 25 H 18 17 Rate Respiratory Rate [Anterior Bilateral Throughout] Blood Pressure 133/76 133/76 133/76 O2 Sat by Pulse 96 96 96 Oximetry 02/05/19 02/05/19 02/05/19 01:31 01:41 01:51 Temperature Pulse Rate 108 H 107 H 107 H Pulse Rate [ Anterior Bilateral Throughout] Pulse Rate [ From Monitor] Respiratory 21 19 20 Rate Respiratory Rate [Anterior Bilateral Throughout] Blood Pressure 133/76 133/76 133/76 O2 Sat by Pulse 96 96 96 Oximetry 02/05/19 02/05/19 02/05/19 02:00 02:11 02:21 Temperature Pulse Rate 107 H 107 H 106 H Pulse Rate [ Anterior Bilateral Throughout] Pulse Rate [ From Monitor] Respiratory 20 23 18 Rate Respiratory Rate [Anterior Bilateral Throughout] Blood Pressure 133/76 132/73 132/73 O2 Sat by Pulse 96 97 95 Oximetry 02/05/19 02/05/19 02/05/19 02:31 02:41 02:51 Temperature Pulse Rate 107 H 107 H 107 H Pulse Rate [ Anterior Bilateral Throughout] Pulse Rate [ From Monitor] Respiratory 22 22 23 Rate Respiratory Rate [Anterior Bilateral Throughout] Blood Pressure 132/73 132/73 132/73 O2 Sat by Pulse 96 96 96 Oximetry 02/05/19 02/05/19 02/05/19 03:00 03:11 03:21 Temperature Pulse Rate 106 H 106 H 106 H Pulse Rate [ Anterior Bilateral Throughout] Pulse Rate [ From Monitor] Respiratory 19 18 20 Rate Respiratory Rate [Anterior Bilateral Throughout] Blood Pressure 127/68 127/68 127/68 O2 Sat by Pulse 96 96 97 Oximetry 02/05/19 02/05/19 02/05/19 03:31 03:41 03:48 Temperature 98.4 F Pulse Rate 105 H 106 H Pulse Rate [ Anterior Bilateral Throughout] Pulse Rate [ From Monitor] Respiratory 19 18 Rate Respiratory Rate [Anterior Bilateral Throughout] Blood Pressure 127/68 127/68 O2 Sat by Pulse 96 96 Oximetry 02/05/19 02/05/19 02/05/19 03:51 04:00 04:10 Temperature Pulse Rate 105 H 105 H 105 H Pulse Rate [ Anterior Bilateral Throughout] Pulse Rate [ 104 H From Monitor] Respiratory 22 23 21 Rate Respiratory Rate [Anterior Bilateral Throughout] Blood Pressure 127/68 129/73 129/73 O2 Sat by Pulse 96 96 96 Oximetry 02/05/19 02/05/19 02/05/19 04:20 04:31 04:41 Temperature Pulse Rate 104 H 106 H 104 H Pulse Rate [ Anterior Bilateral Throughout] Pulse Rate [ From Monitor] Respiratory 18 24 18 Rate Respiratory Rate [Anterior Bilateral Throughout] Blood Pressure 129/73 129/73 129/73 O2 Sat by Pulse 96 97 97 Oximetry 02/05/19 02/05/19 02/05/19 04:51 05:00 05:11 Temperature Pulse Rate 104 H 105 H 104 H Pulse Rate [ Anterior Bilateral Throughout] Pulse Rate [ From Monitor] Respiratory 20 21 19 Rate Respiratory Rate [Anterior Bilateral Throughout] Blood Pressure 129/73 127/76 127/76 O2 Sat by Pulse 97 96 96 Oximetry 02/05/19 02/05/19 02/05/19 05:15 05:19 05:21 Temperature Pulse Rate 104 H 101 H Pulse Rate [ 101 H Anterior Bilateral Throughout] Pulse Rate [ From Monitor] Respiratory 18 Rate Respiratory 18 Rate [Anterior Bilateral Throughout] Blood Pressure 127/76 127/76 O2 Sat by Pulse 97 99 Oximetry 02/05/19 02/05/19 02/05/19 05:31 05:41 05:51 Temperature Pulse Rate 104 H 106 H 107 H Pulse Rate [ Anterior Bilateral Throughout] Pulse Rate [ From Monitor] Respiratory 27 H 33 H 34 H Rate Respiratory Rate [Anterior Bilateral Throughout] Blood Pressure 127/76 127/76 127/76 O2 Sat by Pulse 96 96 96 Oximetry 02/05/19 02/05/19 02/05/19 06:00 06:11 06:21 Temperature Pulse Rate 107 H 106 H 106 H Pulse Rate [ Anterior Bilateral Throughout] Pulse Rate [ From Monitor] Respiratory 32 H 32 H 32 H Rate Respiratory Rate [Anterior Bilateral Throughout] Blood Pressure 136/72 136/72 136/72 O2 Sat by Pulse 96 96 96 Oximetry 02/05/19 02/05/19 02/05/19 06:31 06:41 06:51 Temperature Pulse Rate 106 H 105 H 106 H Pulse Rate [ Anterior Bilateral Throughout] Pulse Rate [ From Monitor] Respiratory 33 H 30 H 33 H Rate Respiratory Rate [Anterior Bilateral Throughout] Blood Pressure 136/72 136/72 136/72 O2 Sat by Pulse 96 96 96 Oximetry 02/05/19 02/05/19 02/05/19 07:00 07:11 07:21 Temperature Pulse Rate 107 H 106 H 106 H Pulse Rate [ Anterior Bilateral Throughout] Pulse Rate [ From Monitor] Respiratory 34 H 30 H 32 H Rate Respiratory Rate [Anterior Bilateral Throughout] Blood Pressure 133/79 133/79 133/79 O2 Sat by Pulse 96 96 96 Oximetry 02/05/19 02/05/19 02/05/19 07:31 07:41 07:51 Temperature Pulse Rate 102 H 105 H 104 H Pulse Rate [ Anterior Bilateral Throughout] Pulse Rate [ From Monitor] Respiratory 26 H 36 H 35 H Rate Respiratory Rate [Anterior Bilateral Throughout] Blood Pressure 133/79 133/79 133/79 O2 Sat by Pulse 96 96 96 Oximetry 02/05/19 02/05/19 02/05/19 08:00 08:11 08:20 Temperature Pulse Rate 105 H 105 H Pulse Rate [ 103 H Anterior Bilateral Throughout] Pulse Rate [ From Monitor] Respiratory 41 H 40 H Rate Respiratory 33 H Rate [Anterior Bilateral Throughout] Blood Pressure 129/72 129/72 O2 Sat by Pulse 96 96 Oximetry 02/05/19 02/05/19 02/05/19 08:21 08:31 08:41 Temperature Pulse Rate 105 H 102 H 105 H Pulse Rate [ Anterior Bilateral Throughout] Pulse Rate [ From Monitor] Respiratory 36 H 33 H 38 H Rate Respiratory Rate [Anterior Bilateral Throughout] Blood Pressure 129/72 129/72 129/72 O2 Sat by Pulse 96 99 97 Oximetry 0802/05/19 02/05/19 08:51 09:00 09:11 Temperature Pulse Rate 103 H 106 H 106 H Pulse Rate [ Anterior Bilateral Throughout] Pulse Rate [ From Monitor] Respiratory 32 H 38 H 39 H Rate Respiratory Rate [Anterior Bilateral Throughout] Blood Pressure 129/72 125/72 125/72 O2 Sat by Pulse 96 96 97 Oximetry 02/05/19 09:42 Temperature Pulse Rate 109 H Pulse Rate [ Anterior Bilateral Throughout] Pulse Rate [ From Monitor] Respiratory Rate Respiratory Rate [Anterior Bilateral Throughout] Blood Pressure 125/72 O2 Sat by Pulse 95 Oximetry - Lab 02/04/19 05:02 02/04/19 05:02 Most recent lab results ABG pH 7.485 pH Units (7.350-7.450) H 02/05/19 03:50 ABG pCO2 37.3 mm Hg 02/05/19 03:50 ABG pO2 85.0 mm Hg (80.0-90.0) 02/05/19 03:50 ABG HCO3 27.5 mmol/L (20.0-26.0) H 02/05/19 03:50 ABG O2 Saturation 97.1 % (95.0-99.0) 02/05/19 03:50 Calcium 7.6 mg/dL (8.4-10.2) L 02/04/19 05:02 Medications & Allergies - Medications Allergies/Adverse Reactions: Allergies No Known Allergies Allergy (Verified 08/18/18 09:04) Home Medications: Home Medications Medication Instructions Recorded Confirmed Last Taken Type Levothyroxine [Synthroid] 112 mcg PO QAM 02/01/19 02/01/19 Unknown History Lisinopril [Zestril TAB] 40 mg PO QDAY 02/01/19 02/01/19 Unknown History amLODIPine [Norvasc] 10 mg PO DAILY 02/01/19 02/01/19 Unknown History cloNIDine [Catapres] 1 mg PO QDAY 02/01/19 02/01/19 Unknown History Active Medications: Generic Name Dose Route Start Last Admin Trade Name Freq PRN Reason Stop Dose Admin Acetaminophen 650 mg 02/01/19 10:47 02/04/19 17:02 Tylenol PO 650 mg Q4H PRN Administration Pain MILD(1-3)/Fever >100.5/VALENZUELA Albuterol 2.5 mg 02/01/19 10:47 Proventil IH Q4HRT PRN Shortness Of Breath Albuterol/Ipratropium 1 ampul 02/01/19 12:00 02/05/19 08:24 Duoneb *Not For Prn Use* IH 1 ampul Q6HRT AMOL Administration Famotidine 20 mg 02/03/19 10:00 02/05/19 09:42 Pepcid IV 20 mg QDAY AMOL Administration Hydrophilic Ointment 1 applic 02/01/19 11:09 02/02/19 16:50 Vaseline Lip Therapy TP 1 applic Q2HR PRN Administration Dry Lips Midazolam HCl 100 mg/ Sodium 100 mls @ 2 mls/hr 02/01/19 12:00 02/03/19 07:40 Chloride IV 0 mg/hr TITR AMOL 0 mls/hr Titration Protocol 2 MG/HR Cefepime HCl 1 gm in 100 mls @ 200 mls/hr 02/01/19 12:00 02/05/19 00:35 Maxipime/Ns 1 Gm/100 Ml IV Infused Q12H AMOL Infusion Protocol Metronidazole 500 mg in 100 mls @ 100 mls/hr 02/01/19 17:00 02/05/19 07:40 Flagyl 500 Mg/100 Ml IV Infused Q8HR AMOL Infusion Protocol Vancomycin HCl 1,250 mg/ 275 mls @ 166.667 mls/hr 02/04/19 10:00 02/04/19 12:00 Sodium Chloride IV Infused Q24HR AMOL Infusion Sodium Chloride 1,000 mls @ 125 mls/hr 02/04/19 18:00 02/05/19 01:47 Nacl 0.9% 1000 Ml IV 125 mls/hr DIRECT AMOL Administration Midazolam HCl 2 mg 02/01/19 11:09 02/01/19 11:42 Versed IV 2 mg Q10MIN PRN Administration Sedation Morphine Sulfate 2 mg 02/01/19 10:47 Morphine IV Q4H PRN Pain, Moderate (4-6) Multi-Ingred Cream/Lotion/Oil/Oint 1 applic 02/01/19 11:09 02/02/19 16:50 Artificial Tears Ophth Oint OU 1 applic Q4HR PRN Administration Dry Eye(s) Ondansetron HCl 4 mg 02/01/19 10:47 Zofran IV Q8H PRN Nausea And Vomiting Sodium Chloride 10 ml 02/01/19 22:00 02/05/19 09:42 Sodium Chloride Flush Syringe 10 Ml IV 10 ml BID AMOL Administration Sodium Chloride 10 ml 02/01/19 10:47 Sodium Chloride Flush Syringe 10 Ml IV PRN PRN LINE FLUSH
[2019-02-05] MEDS ORDERED: LIPASE 10,500/PROTEASE 25,000/AMYLASE 43,750 (UNITS) DR CAP FEEDTUBE PRN (11:04)
[2019-02-05] MEDS ORDERED: SODIUM BICARBONATE 325 MG TAB FEEDTUBE PRN (11:04)
[2019-02-05] MEDS ORDERED: SIMPLE SYRUP 15 ML FEEDTUBE PRN ×2 (11:04)
--- NOTE | 2019-02-05 11:36 | Progress Note ---
Assessment and Plan Cultures: 02/01/2019 blood culture: Strep pneumoniae in 4/4 bottles 02/01/2019 urine culture: no growth 02/01/2019 tracheal aspirate: Strep species 02/02/2019 blood culture: no growth 02/01/2019 C3: 36 (low) 02/01/2019 C4: 12 (low) HIV: non reactive RPR: non reactive Hepatitis panel: non reactive A/P: 53-year-old female with hypothyroidism, hypertension, ?autoimmune disease. Admitted with: 1) Severe sepsis with Strep pneumoniae bacteremia: Leukocytosis, thrombocytopenia, lactic acidosis. Source appears to be bilateral pneumonia. TTE showed some ?pulmonic valve vegetation. Ordered TERRENCE. 2) Right neck cellulitis and induration v/s severe lymphadenopathy: CT neck was without contrast, hence limited eval of vasculature. Neck US revealed extensive R neck lymphadenopathy, no abscess. HIV, RPR negative. Bartonella serologies pending. 3) Bilateral pneumonia: sputum culture also growing Strep, likely Strep pneumoniae. 4) Acute renal failure: renally dose abx. Nephrology following. Creatinine improving. 5) ?Autoimmune disease: need more history. Unclear if she is on any kind of immunosuppression. C3, C4 came back low. F/u CHESTER, ANCA. 6) Thrombocytopenia: worse. Hematology following. Sepsis v/s autoimmune in etiology. 7) Acute encephalopathy: may need lumbar puncture to eval for possibility of meningitis. Low platelets preclude that for now. May need MRI brain Recs: discontinued Cefepime, Flagyl and Vancomycin started IV Ceftriaxone 2 gm q12 hrs to cover for possibility of meningeal involvement Ordered TERRENCE to eval for possibility of endocarditis f/u Bartonella serologies once creatinine improves, may need CT chest, abdomen pelvis with IV contrast to evaluate for other lymphadenopathy LP ordered by Fluoroscopy Luis Lewis MD, FACP [facility] ([facility] M: [phone] O: [phone] F: [phone] Subjective Date of service: 02/05/19 Principal diagnosis: septic shock Interval history: Intermittent fever. Remains on the vent. No pressors. Opens eyes spontaneously, doesn't follow commands. Objective - Exam Narrative Exam: Physical Exam: Constitutional: opens eyes, doesn't follow commands, intubated Head, Ears, Nose: Normocephalic, atraumatic. External ears, nose normal Eyes: Conjunctivae/corneas clear. No icterus. No ptosis. Neck: induration on the R side of the neck, improving Oral: intubated Cardiovascular: S1, S2 normal. Respiratory: AE equal bilaterally, no crackles GI: Soft, non-tender; bowel sounds normal. No peritoneal signs Musculoskeletal: No pedal edema, no cyanosis. Skin: No rash or abscess Hem/Lymphatic: No palpable cervical or supraclavicular nodes. No lymphangitis Psych: no agitation Neurological: opens eyes, doesn't follow commands, remains on the vent - Constitutional Vitals: Vital Signs Temp Pulse Resp BP Pulse Ox 98.4 F 111 H 39 H 148/84 95 02/05/19 03:48 02/05/19 11:19 02/05/19 09:11 02/05/19 11:19 02/05/19 11:19 Temperature -Last 24 Hours Temperature 98.4 F Temperature 98.2 F Temperature 99.7 F Temperature 101 F - Labs CBC & Chem 7: 02/04/19 05:02 02/04/19 05:02 Labs: Abnormal lab results 02/01/19 02/01/19 02/05/19 Range/Units 16:51 16:51 03:50 ABG pH 7.485 H (7.350-7.450) pH Units ABG HCO3 27.5 H (20.0-26.0) mmol/L ABG Base Excess 3.9 H (-2.0-3.0) mmol/L ABG Hemoglobin 9.1 L (12.0-16.0) gm/dl Oxyhemoglobin 94.8 L (95.0-99.0) % Complement C3 36 L (83-193) mg/dL Complement C4 12 L (15-57) mg/dL
--- NOTE | 2019-02-05 12:30 | Progress Note ---
Assessment and Plan Imp: 1. Neck cellulitis 2. Strep pneumonae Bacteremia 3. Severe sepsis 4. DIANA 5. Hyperkalemia 6. Lactic acidosis 7. Acute respiratory failure, hypoxia 8. Metabolic encephalopathy 9. Thrombocytopenia 10. Bilateral pneumonia worsening 11. AMS ? etiology Rec: 1. ABX per ID 2. Neurological evaluation regards to AMS 3. Hyperkalemia per renal 4. Keep sedated for now; PSV trials once underlying sepsis improves 5. SCDs, Pepcid, avoid Lovenox due to thrombocytopenia 6. Prognosis is guarded; no family present 7. Continue with ventilator Maged was discussed with respiratory therapist and nursing staff. Total critical care time 31 minute Subjective Date of service: 02/05/19 Principal diagnosis: septic shock Interval history: Patient remained unresponsive, off all sedation. Objective Vital Signs - 12hr 02/05/19 02/05/19 02/05/19 00:30 00:31 00:41 Temperature Pulse Rate 108 H 109 H 108 H Pulse Rate [ Anterior Bilateral Throughout] Pulse Rate [ From Monitor] Respiratory 19 20 Rate Respiratory Rate [Anterior Bilateral Throughout] Blood Pressure 121/71 121/71 121/71 O2 Sat by Pulse 96 96 96 Oximetry 02/05/19 02/05/19 02/05/19 00:51 01:00 01:11 Temperature Pulse Rate 108 H 110 H 108 H Pulse Rate [ Anterior Bilateral Throughout] Pulse Rate [ From Monitor] Respiratory 23 25 H 18 Rate Respiratory Rate [Anterior Bilateral Throughout] Blood Pressure 121/71 133/76 133/76 O2 Sat by Pulse 97 96 96 Oximetry 02/05/19 02/05/19 02/05/19 01:21 01:31 01:41 Temperature Pulse Rate 108 H 108 H 107 H Pulse Rate [ Anterior Bilateral Throughout] Pulse Rate [ From Monitor] Respiratory 17 21 19 Rate Respiratory Rate [Anterior Bilateral Throughout] Blood Pressure 133/76 133/76 133/76 O2 Sat by Pulse 96 96 96 Oximetry 02/05/19 02/05/19 02/05/19 01:51 02:00 02:11 Temperature Pulse Rate 107 H 107 H 107 H Pulse Rate [ Anterior Bilateral Throughout] Pulse Rate [ From Monitor] Respiratory 20 20 23 Rate Respiratory Rate [Anterior Bilateral Throughout] Blood Pressure 133/76 133/76 132/73 O2 Sat by Pulse 96 96 97 Oximetry 08/19/19 08/19/19 08/19/19 02:21 02:31 02:41 Temperature Pulse Rate 106 H 107 H 107 H Pulse Rate [ Anterior Bilateral Throughout] Pulse Rate [ From Monitor] Respiratory 18 22 22 Rate Respiratory Rate [Anterior Bilateral Throughout] Blood Pressure 132/73 132/73 132/73 O2 Sat by Pulse 95 96 96 Oximetry 02/05/19 02/05/19 02/05/19 02:51 03:00 03:11 Temperature Pulse Rate 107 H 106 H 106 H Pulse Rate [ Anterior Bilateral Throughout] Pulse Rate [ From Monitor] Respiratory 23 19 18 Rate Respiratory Rate [Anterior Bilateral Throughout] Blood Pressure 132/73 127/68 127/68 O2 Sat by Pulse 96 96 96 Oximetry 02/05/19 02/05/19 02/05/19 03:21 03:31 03:41 Temperature Pulse Rate 106 H 105 H 106 H Pulse Rate [ Anterior Bilateral Throughout] Pulse Rate [ From Monitor] Respiratory 20 19 18 Rate Respiratory Rate [Anterior Bilateral Throughout] Blood Pressure 127/68 127/68 127/68 O2 Sat by Pulse 97 96 96 Oximetry 02/05/19 02/05/19 02/05/19 03:48 03:51 04:00 Temperature 98.4 F Pulse Rate 105 H 105 H Pulse Rate [ Anterior Bilateral Throughout] Pulse Rate [ 104 H From Monitor] Respiratory 22 23 Rate Respiratory Rate [Anterior Bilateral Throughout] Blood Pressure 127/68 129/73 O2 Sat by Pulse 96 96 Oximetry 02/05/19 02/05/19 02/05/19 04:10 04:20 04:31 Temperature Pulse Rate 105 H 104 H 106 H Pulse Rate [ Anterior Bilateral Throughout] Pulse Rate [ From Monitor] Respiratory 21 18 24 Rate Respiratory Rate [Anterior Bilateral Throughout] Blood Pressure 129/73 129/73 129/73 O2 Sat by Pulse 96 96 97 Oximetry 02/05/19 02/05/19 02/05/19 04:41 04:51 05:00 Temperature Pulse Rate 104 H 104 H 105 H Pulse Rate [ Anterior Bilateral Throughout] Pulse Rate [ From Monitor] Respiratory 18 20 21 Rate Respiratory Rate [Anterior Bilateral Throughout] Blood Pressure 129/73 129/73 127/76 O2 Sat by Pulse 97 97 96 Oximetry 02/05/19 02/05/19 02/05/19 05:11 05:15 05:19 Temperature Pulse Rate 104 H 104 H Pulse Rate [ 101 H Anterior Bilateral Throughout] Pulse Rate [ From Monitor] Respiratory 19 Rate Respiratory 18 Rate [Anterior Bilateral Throughout] Blood Pressure 127/76 127/76 O2 Sat by Pulse 96 97 Oximetry 02/05/19 02/05/19 02/05/19 05:21 05:31 05:41 Temperature Pulse Rate 101 H 104 H 106 H Pulse Rate [ Anterior Bilateral Throughout] Pulse Rate [ From Monitor] Respiratory 18 27 H 33 H Rate Respiratory Rate [Anterior Bilateral Throughout] Blood Pressure 127/76 127/76 127/76 O2 Sat by Pulse 99 96 96 Oximetry 02/05/19 02/05/19 02/05/19 05:51 06:00 06:11 Temperature Pulse Rate 107 H 107 H 106 H Pulse Rate [ Anterior Bilateral Throughout] Pulse Rate [ From Monitor] Respiratory 34 H 32 H 32 H Rate Respiratory Rate [Anterior Bilateral Throughout] Blood Pressure 127/76 136/72 136/72 O2 Sat by Pulse 96 96 96 Oximetry 02/05/19 02/05/19 02/05/19 06:21 06:31 06:41 Temperature Pulse Rate 106 H 106 H 105 H Pulse Rate [ Anterior Bilateral Throughout] Pulse Rate [ From Monitor] Respiratory 32 H 33 H 30 H Rate Respiratory Rate [Anterior Bilateral Throughout] Blood Pressure 136/72 136/72 136/72 O2 Sat by Pulse 96 96 96 Oximetry 02/05/19 02/05/19 02/05/19 06:51 07:00 07:11 Temperature Pulse Rate 106 H 107 H 106 H Pulse Rate [ Anterior Bilateral Throughout] Pulse Rate [ From Monitor] Respiratory 33 H 34 H 30 H Rate Respiratory Rate [Anterior Bilateral Throughout] Blood Pressure 136/72 133/79 133/79 O2 Sat by Pulse 96 96 96 Oximetry 02/05/19 02/05/19 02/05/19 07:21 07:31 07:41 Temperature Pulse Rate 106 H 102 H 105 H Pulse Rate [ Anterior Bilateral Throughout] Pulse Rate [ From Monitor] Respiratory 32 H 26 H 36 H Rate Respiratory Rate [Anterior Bilateral Throughout] Blood Pressure 133/79 133/79 133/79 O2 Sat by Pulse 96 96 96 Oximetry 02/05/19 02/05/19 02/05/19 07:51 08:00 08:11 Temperature Pulse Rate 104 H 105 H 105 H Pulse Rate [ Anterior Bilateral Throughout] Pulse Rate [ From Monitor] Respiratory 35 H 41 H 40 H Rate Respiratory Rate [Anterior Bilateral Throughout] Blood Pressure 133/79 129/72 129/72 O2 Sat by Pulse 96 96 96 Oximetry 02/05/19 02/05/19 02/05/19 08:20 08:21 08:31 Temperature Pulse Rate 105 H 102 H Pulse Rate [ 103 H Anterior Bilateral Throughout] Pulse Rate [ From Monitor] Respiratory 36 H 33 H Rate Respiratory 33 H Rate [Anterior Bilateral Throughout] Blood Pressure 129/72 129/72 O2 Sat by Pulse 96 99 Oximetry 02/05/19 02/05/19 02/05/19 08:41 08:51 09:00 Temperature Pulse Rate 105 H 103 H 106 H Pulse Rate [ Anterior Bilateral Throughout] Pulse Rate [ From Monitor] Respiratory 38 H 32 H 38 H Rate Respiratory Rate [Anterior Bilateral Throughout] Blood Pressure 129/72 129/72 125/72 O2 Sat by Pulse 97 96 96 Oximetry 02/05/19 02/05/19 02/05/19 09:11 09:42 11:19 Temperature Pulse Rate 106 H 109 H 111 H Pulse Rate [ Anterior Bilateral Throughout] Pulse Rate [ From Monitor] Respiratory 39 H Rate Respiratory Rate [Anterior Bilateral Throughout] Blood Pressure 125/72 125/72 148/84 O2 Sat by Pulse 97 95 95 Oximetry Constitutional: comatose, other (orally intubated on mechanical ventilator.) Eyes: non-icteric ENT: oropharynx moist Neck: supple Effort: normal Ascultation: Bilateral: other (coarse BS bilaterally improved) Cardiovascular: other (tachy, RR; no mrg) Gastrointestinal: normoactive bowel sounds, soft, non-tender, non-distended Integumentary: normal Extremities: no cyanosis, no edema, pink and warm Neurologic: unable to assess (due to sedation) Psychiatric: other (unable to assess) CBC and BMP: 02/04/19 05:02 02/04/19 05:02 ABG, PT/INR, D-dimer: ABG POC ABG pH 7.443 (7.35-7.45) 02/03/19 05:55 ABG pH 7.485 pH Units (7.350-7.450) H 02/05/19 03:50 POC ABG pCO2 36.6 (35-45) 02/03/19 05:55 ABG pCO2 37.3 mm Hg 02/05/19 03:50 POC ABG pO2 117 (80-105) H 02/03/19 05:55 ABG pO2 85.0 mm Hg (80.0-90.0) 02/05/19 03:50 POC ABG HCO3 25.0 (22-26 mml/L) 02/03/19 05:55 POC ABG Total CO2 26 (23-27mmol/L) 02/03/19 05:55 POC ABG O2 Sat 99 02/03/19 05:55 ABG O2 Saturation 97.1 % (95.0-99.0) 02/05/19 03:50 PT/INR, D-dimer PT 15.8 Sec. (12.2-14.9) H 02/03/19 14:42 INR 1.29 (0.87-1.13) H 02/03/19 14:42 Abnormal lab findings: Abnormal Labs 02/01/19 02/01/19 02/01/19 07:16 07:16 07:16 WBC 17.7 H RBC Hgb Hct RDW 16.9 H Plt Count 62 L Seg Neuts % (Manual) 95.0 H Lymphocytes % (Manual) 0 L Seg Neutrophils # Man 16.8 H Lymphocytes # (Manual) 0.0 L PT 15.0 H INR 1.21 H APTT Thrombin Time 20.0 H POC ABG pH ABG pH POC ABG pO2 ABG HCO3 ABG Base Excess ABG Hemoglobin Oxyhemoglobin Sodium 135 L Potassium Chloride 97.7 L Carbon Dioxide 19 L BUN 51 H Creatinine 4.5 H Glucose 112 H POC Glucose Lactic Acid Calcium Iron TIBC Direct Bilirubin AST Troponin T 0.181 H* C-Reactive Protein Total Protein Albumin LDL Cholesterol Direct 34 L HDL Cholesterol 20 L Vitamin B12 Folate TSH Urine WBC (Auto) Complement C3 Complement C4 02/01/19 02/01/19 02/01/19 07:29 07:29 07:43 WBC RBC Hgb Hct RDW Plt Count Seg Neuts % (Manual) Lymphocytes % (Manual) Seg Neutrophils # Man Lymphocytes # (Manual) PT INR APTT Thrombin Time POC ABG pH ABG pH POC ABG pO2 ABG HCO3 ABG Base Excess ABG Hemoglobin Oxyhemoglobin Sodium Potassium Chloride Carbon Dioxide BUN Creatinine Glucose POC Glucose Lactic Acid 4.80 H* Calcium Iron TIBC Direct Bilirubin 0.7 H AST 42 H Troponin T C-Reactive Protein Total Protein 8.9 H Albumin 2.3 L LDL Cholesterol Direct HDL Cholesterol Vitamin B12 Folate TSH 8.470 H Urine WBC (Auto) Complement C3 Complement C4 02/01/19 02/01/19 02/01/19 09:45 11:32 13:50 WBC RBC Hgb Hct RDW Plt Count Seg Neuts % (Manual) Lymphocytes % (Manual) Seg Neutrophils # Man Lymphocytes # (Manual) PT INR APTT Thrombin Time POC ABG pH 7.289 L ABG pH POC ABG pO2 355 H ABG HCO3 ABG Base Excess ABG Hemoglobin Oxyhemoglobin Sodium Potassium Chloride Carbon Dioxide BUN Creatinine Glucose POC Glucose Lactic Acid 4.10 H* Calcium Iron TIBC Direct Bilirubin AST Troponin T C-Reactive Protein Total Protein Albumin LDL Cholesterol Direct HDL Cholesterol Vitamin B12 Folate TSH Urine WBC (Auto) 16.0 H Complement C3 Complement C4 02/01/19 02/01/19 02/01/19 15:15 16:20 16:51 WBC RBC Hgb Hct RDW Plt Count Seg Neuts % (Manual) Lymphocytes % (Manual) Seg Neutrophils # Man Lymphocytes # (Manual) PT INR APTT Thrombin Time POC ABG pH ABG pH POC ABG pO2 ABG HCO3 ABG Base Excess ABG Hemoglobin Oxyhemoglobin Sodium Potassium Chloride Carbon Dioxide BUN Creatinine Glucose POC Glucose 115 H Lactic Acid 4.50 H* Calcium Iron TIBC Direct Bilirubin AST Troponin T C-Reactive Protein Total Protein Albumin LDL Cholesterol Direct HDL Cholesterol Vitamin B12 Folate TSH Urine WBC (Auto) Complement C3 36 L Complement C4 02/01/19 02/01/19 02/01/19 16:51 17:03 17:04 WBC RBC Hgb Hct RDW Plt Count Seg Neuts % (Manual) Lymphocytes % (Manual) Seg Neutrophils # Man Lymphocytes # (Manual) PT INR APTT Thrombin Time POC ABG pH ABG pH POC ABG pO2 ABG HCO3 ABG Base Excess ABG Hemoglobin Oxyhemoglobin Sodium Potassium Chloride Carbon Dioxide BUN Creatinine Glucose POC Glucose Lactic Acid 2.80 H* Calcium Iron TIBC Direct Bilirubin AST Troponin T C-Reactive Protein 32.30 H Total Protein Albumin LDL Cholesterol Direct HDL Cholesterol Vitamin B12 Folate TSH Urine WBC (Auto) Complement C3 Complement C4 12 L 02/01/19 02/02/19 02/02/19 19:28 05:16 05:53 WBC 14.3 H RBC Hgb Hct RDW 16.9 H Plt Count 43 L Seg Neuts % (Manual) 93.0 H Lymphocytes % (Manual) 2.0 L Seg Neutrophils # Man 13.3 H Lymphocytes # (Manual) 0.3 L PT INR APTT Thrombin Time POC ABG pH ABG pH POC ABG pO2 148 H ABG HCO3 ABG Base Excess ABG Hemoglobin Oxyhemoglobin Sodium Potassium Chloride 107.1 H Carbon Dioxide 18 L BUN 52 H Creatinine 3.1 H Glucose 120 H POC Glucose Lactic Acid Calcium 7.4 L Iron TIBC Direct Bilirubin AST Troponin T C-Reactive Protein Total Protein Albumin LDL Cholesterol Direct HDL Cholesterol Vitamin B12 Folate TSH Urine WBC (Auto) Complement C3 Complement C4 02/02/19 02/03/19 02/03/19 05:53 03:30 03:30 WBC RBC 5.16 H Hgb 14.9 H Hct 46.2 H D RDW 17.0 H Plt Count 18 L* Seg Neuts % (Manual) Lymphocytes % (Manual) Seg Neutrophils # Man Lymphocytes # (Manual) PT INR APTT Thrombin Time POC ABG pH ABG pH POC ABG pO2 ABG HCO3 ABG Base Excess ABG Hemoglobin Oxyhemoglobin Sodium Potassium 5.1 H Chloride Carbon Dioxide 21 L BUN 57 H 65 H Creatinine 3.3 H 2.7 H Glucose 147 H 117 H POC Glucose Lactic Acid Calcium 7.5 L 7.2 L Iron TIBC Direct Bilirubin AST 51 H Troponin T C-Reactive Protein Total Protein Albumin 1.6 L LDL Cholesterol Direct HDL Cholesterol Vitamin B12 Folate TSH Urine WBC (Auto) Complement C3 Complement C4 02/03/19 02/03/19 02/03/19 05:55 14:42 14:42 WBC RBC Hgb Hct RDW Plt Count Seg Neuts % (Manual) Lymphocytes % (Manual) Seg Neutrophils # Man Lymphocytes # (Manual) PT INR APTT Thrombin Time POC ABG pH ABG pH POC ABG pO2 117 H ABG HCO3 ABG Base Excess ABG Hemoglobin Oxyhemoglobin Sodium Potassium Chloride Carbon Dioxide BUN Creatinine Glucose POC Glucose Lactic Acid Calcium Iron 11 L TIBC 88 L Direct Bilirubin AST Troponin T C-Reactive Protein Total Protein Albumin LDL Cholesterol Direct HDL Cholesterol Vitamin B12 1468 H Folate TSH Urine WBC (Auto) Complement C3 Complement C4 02/03/19 02/03/19 02/03/19 14:42 14:42 14:42 WBC RBC 3.17 L 3.22 L Hgb 9.4 L D 9.5 L Hct 28.3 L D 28.5 L RDW 16.9 H 16.4 H Plt Count 18 L* 18 L* Seg Neuts % (Manual) Lymphocytes % (Manual) Seg Neutrophils # Man Lymphocytes # (Manual) PT INR APTT Thrombin Time POC ABG pH ABG pH POC ABG pO2 ABG HCO3 ABG Base Excess ABG Hemoglobin Oxyhemoglobin Sodium Potassium Chloride Carbon Dioxide BUN Creatinine Glucose POC Glucose Lactic Acid Calcium Iron TIBC Direct Bilirubin AST Troponin T C-Reactive Protein Total Protein Albumin LDL Cholesterol Direct HDL Cholesterol Vitamin B12 Folate 5.18 L TSH Urine WBC (Auto) Complement C3 Complement C4 02/03/19 02/04/19 02/04/19 14:42 03:35 05:02 WBC RBC Hgb Hct RDW 16.5 H Plt Count 20 L Seg Neuts % (Manual) 94.0 H Lymphocytes % (Manual) 2.0 L Seg Neutrophils # Man 9.2 H Lymphocytes # (Manual) 0.2 L PT 15.8 H INR 1.29 H APTT 38.2 H Thrombin Time POC ABG pH ABG pH 7.470 H POC ABG pO2 ABG HCO3 28.4 H ABG Base Excess 4.5 H ABG Hemoglobin 10.1 L Oxyhemoglobin 94.7 L Sodium Potassium Chloride Carbon Dioxide BUN Creatinine Glucose POC Glucose Lactic Acid Calcium Iron TIBC Direct Bilirubin AST Troponin T C-Reactive Protein Total Protein Albumin LDL Cholesterol Direct HDL Cholesterol Vitamin B12 Folate TSH Urine WBC (Auto) Complement C3 Complement C4 02/04/19 02/05/19 05:02 03:50 WBC RBC Hgb Hct RDW Plt Count Seg Neuts % (Manual) Lymphocytes % (Manual) Seg Neutrophils # Man Lymphocytes # (Manual) PT INR APTT Thrombin Time POC ABG pH ABG pH 7.485 H POC ABG pO2 ABG HCO3 27.5 H ABG Base Excess 3.9 H ABG Hemoglobin 9.1 L Oxyhemoglobin 94.8 L Sodium Potassium Chloride Carbon Dioxide BUN 66 H Creatinine 1.7 H Glucose 127 H POC Glucose Lactic Acid Calcium 7.6 L Iron TIBC Direct Bilirubin AST Troponin T C-Reactive Protein Total Protein Albumin LDL Cholesterol Direct HDL Cholesterol Vitamin B12 Folate TSH Urine WBC (Auto) Complement C3 Complement C4
--- NOTE | 2019-02-05 12:35 | Progress Note ---
Assessment and Plan Assessment and plan: Septic shock - Source of infection is likely from the sore throat, CT of the neck showed inflammation/cellulitis - Patient had a fever of 101.8 - Lactic acid level was 4.8 - Patient is being treated according to sepsis protocol with cefepime, flagyl and vancomycin - Follow blood culture - ID consult appreciated Acute metabolic encephalopathy - CT head is negative, telemetry neurology consulted and doesn't think it is stroke - neurology consult appreciated Acute respiratory failure -Patient is intubated and on mechanical ventilation Type 2 TX - Patient has elevated troponin level, could be due to her renal failure versus septic shock Acute on chronic renal failure due to ATN -Nephrology following -ANCA, C3,C4 , CRP ordered Hypothyroidism - TSH 8.47 normal free T4 level - We'll resume Synthroid Coagulation abnormality - Likely due to septic shock UTI - Continue antibiotics - Urine culture Thrombocytopenia - Discussed with Dr. Diaz and he recommended that a repeat CBC in 12 hours and if platelet is lower, transfuse her - Check B12, folate, iron, ferritin fibrinogen level. If fibrinogen level is less than 100 recommended to give 10 units of cryo CODE Status; Full The high probability of a clinically significant, sudden or life threatening deterioration of the [CV, Neurology, renal] system(s) required my full and direct attention, intervention and personal management. The aggregate critical care time was [45] minutes. This time is in addition to time spent performing reported procedures but includes the following: [x] Data Review and interpretation [x] Patient assessment and monitoring of vital signs [x] Documentation [x] Medication orders and management Patient was seen and evaluated his morning. Patient is on mechanical ventilation. She remains unresponsive off sedation Hospitalist Physical - Physical exam Narrative exam: Patient is in cardiopulmonary distress. The patient appeared well nourished and normally developed. Vital signs as documented. Head exam is unremarkable. No scleral icterus . Neck is without jugular venous distension, thyromegaly, or carotid bruits. Lungs; tachypnic, BBS. Cardiac exam reveals regular rate and Rhythm. Abdominal exam reveals normal bowel sounds, no masses, no organomegaly and no aortic enlargement. Extremities are nonedematous and both femoral and pedal pulses are normal. SKIN WASHER: Nonresponsive Hospitalist Physical - Constitutional Vitals: Temp Pulse Resp BP Pulse Ox 98.4 F 111 H 39 H 148/84 95 02/05/19 03:48 02/05/19 11:19 02/05/19 09:11 02/05/19 11:19 02/05/19 11:19 Results - Labs CBC & Chem 7: 02/24/19 10:52 02/24/19 10:52 Labs: Laboratory Last Values WBC 9.8 K/mm3 (4.5-11.0) 02/04/19 05:02 RBC 3.66 M/mm3 (3.65-5.03) 02/04/19 05:02 Hgb 10.7 gm/dl (10.1-14.3) 02/04/19 05:02 Hct 33.0 % (30.3-42.9) 02/04/19 05:02 MCV 90 fl (79-97) 02/04/19 05:02 MCH 29 pg (28-32) 02/04/19 05:02 MCHC 33 % (30-34) 02/04/19 05:02 RDW 16.5 % (13.2-15.2) H 02/04/19 05:02 Plt Count 20 K/mm3 (140-440) L 02/04/19 05:02 Lymph % (Auto) [facility]osp[facility] Sales Consultant 02/03/19 03:30 [place] % (Auto) Hospice Care Sales Consultant 02/03/19 03:30 Eos % (Auto) Hospice Care Sales Consultant 02/03/19 03:30 Baso % (Auto) Hospice Care Sales Consultant 02/03/19 03:30 Lymph # Hospice [facility] Sales Consultant 02/03/19 03:30 [place] # [facility]osp[facility] Sales Consultant 02/03/19 03:30 Eos # Hospice Care Sales Consultant 02/03/19 03:30 Baso # Hospice Care Sales Consultant 02/03/19 03:30 Add Manual Diff Complete 02/04/19 05:02 Total Counted 100 02/04/19 05:02 Seg Neutrophils % [facility]osp[facility] Sales Consultant 02/03/19 03:30 Seg Neuts % (Manual) 94.0 % (40.0-70.0) H 02/04/19 05:02 2.0 % 02/04/19 05:02 2.0 % (13.4-35.0) L 02/04/19 05:02 Reactive Lymphs % (Man) 0 % 02/04/19 05:02 2.0 % (0.0-7.3) 02/04/19 05:02 0 % (0.0-4.3) 02/04/19 05:02 0 % (0.0-1.8) 02/04/19 05:02 0 % 02/04/19 05:02 0 % 02/04/19 05:02 0 % 02/04/19 05:02 0 % 02/04/19 05:02 Nucleated RBC % Not Reportable 02/04/19 05:02 Seg Neutrophils # Hospice Care Sales Consultant 02/03/19 03:30 Seg Neutrophils # Man 9.2 K/mm3 (1.8-7.7) H 02/04/19 05:02 Band Neutrophils # 0.2 K/mm3 02/04/19 05:02 0.2 K/mm3 (1.2-5.4) L 02/04/19 05:02 Abs React Lymphs (Man) 0.0 K/mm3 02/04/19 05:02 0.2 K/mm3 (0.0-0.8) 02/04/19 05:02 0.0 K/mm3 (0.0-0.4) 02/04/19 05:02 0.0 K/mm3 (0.0-0.1) 02/04/19 05:02 0.0 K/mm3 02/04/19 05:02 0.0 K/mm3 02/04/19 05:02 0.0 K/mm3 02/04/19 05:02 Blast Cells # 0.0 K/mm3 02/04/19 05:02 WBC Morphology Not Reportable 02/04/19 05:02 Hypersegmented Neuts Not Reportable 02/04/19 05:02 Hyposegmented Neuts Not Reportable 02/04/19 05:02 Hypogranular Neuts Not Reportable 02/04/19 05:02 Cancelled 02/01/19 07:16 Not Reportable 02/04/19 05:02 Not Reportable 02/04/19 05:02 Not Reportable 02/04/19 05:02 Not Reportable 02/04/19 05:02 Not Reportable 02/04/19 05:02 Not Reportable 02/04/19 05:02 Consistent w auto 02/04/19 05:02 Not Reportable 02/04/19 05:02 Plt Clumps, EDTA Not Reportable 02/04/19 05:02 Not Reportable 02/04/19 05:02 Not Reportable 02/04/19 05:02 Not Reportable 02/04/19 05:02 Plt Morphology Comment Not Reportable 02/04/19 05:02 RBC Morphology Not Reportable 02/04/19 05:02 Dimorphic RBCs Not Reportable 02/04/19 05:02 Not Reportable 02/04/19 05:02 Not Reportable 02/04/19 05:02 Not Reportable 02/04/19 05:02 Cancelled 02/01/19 07:16 1+ 02/04/19 05:02 Few 02/04/19 05:02 Not Reportable 02/04/19 05:02 Not Reportable 02/04/19 05:02 Not Reportable 02/04/19 05:02 Not Reportable 02/04/19 05:02 Not Reportable 02/04/19 05:02 Not Reportable 02/04/19 05:02 Not Reportable 02/04/19 05:02 Cancelled 02/01/19 07:16 Not Reportable 02/04/19 05:02 Not Reportable 02/04/19 05:02 Not Reportable 02/04/19 05:02 Not Reportable 02/04/19 05:02 Not Reportable 02/04/19 05:02 Not Reportable 02/04/19 05:02 Not Reportable 02/04/19 05:02 Acanthocytes (Spur) Not Reportable 02/04/19 05:02 Rouleaux Not Reportable 02/04/19 05:02 Not Reportable 02/04/19 05:02 Not Reportable 02/04/19 05:02 Not Reportable 02/04/19 05:02 ESR 76 mm/Hr (0-20) 02/01/19 16:51 Not Reportable 02/04/19 05:02 Hem Pathologist Commnt No 02/04/19 05:02 PT 15.8 Sec. (12.2-14.9) H 02/03/19 14:42 INR 1.29 (0.87-1.13) H 02/03/19 14:42 APTT 38.2 Sec. (24.2-36.6) H 02/03/19 14:42 20.0 Sec. (15.1-19.6) H 02/01/19 07:16 479 mg/dl (211-480) 02/03/19 14:42 POC ABG pH 7.443 (7.35-7.45) 02/03/19 05:55 ABG pH 7.485 pH Units (7.350-7.450) H 02/05/19 03:50 POC ABG pCO2 36.6 (35-45) 02/03/19 05:55 ABG pCO2 37.3 mm Hg 02/05/19 03:50 POC ABG pO2 117 (80-105) H 02/03/19 05:55 ABG pO2 85.0 mm Hg (80.0-90.0) 02/05/19 03:50 POC ABG HCO3 25.0 (22-26 mml/L) 02/03/19 05:55 ABG HCO3 27.5 mmol/L (20.0-26.0) H 02/05/19 03:50 POC ABG Total CO2 26 (23-27mmol/L) 02/03/19 05:55 POC ABG O2 Sat 99 02/03/19 05:55 ABG O2 Saturation 97.1 % (95.0-99.0) 02/05/19 03:50 ABG O2 Content 12.2 (0.0-44) 02/05/19 03:50 POC ABG Base Excess 1 ((-2) - (+3)mmol/L) 02/03/19 05:55 ABG Base Excess 3.9 mmol/L (-2.0-3.0) H 02/05/19 03:50 ABG Hemoglobin 9.1 gm/dl (12.0-16.0) L 02/05/19 03:50 ABG Carboxyhemoglobin 1.8 % (0.0-5.0) 02/05/19 03:50 ABG Methemoglobin 0.6 % (0.0-1.5) 02/05/19 03:50 94.8 % (95.0-99.0) L 02/05/19 03:50 25 % 02/05/19 03:50 Sodium 138 mmol/L (137-145) 02/04/19 05:02 Potassium 4.4 mmol/L (3.6-5.0) 02/04/19 05:02 Chloride 100.3 mmol/L (98-107) 02/04/19 05:02 Carbon Dioxide 27 mmol/L (22-30) 02/04/19 05:02 15 mmol/L 02/04/19 05:02 BUN 66 mg/dL (7-17) H 02/04/19 05:02 1.7 mg/dL (0.7-1.2) H 02/04/19 05:02 Estimated GFR 38 ml/min 02/04/19 05:02 39 % 02/04/19 05:02 Glucose 127 mg/dL (65-100) H 02/04/19 05:02 POC Glucose 71 (70-105) 02/05/19 09:14 Lactic Acid 1.40 mmol/L (0.7-2.0) 02/01/19 20:57 Calcium 7.6 mg/dL (8.4-10.2) L 02/04/19 05:02 Iron 11 ug/dL (37-170) L 02/03/19 14:42 TIBC 88 mcg/dL (250-450) L 02/03/19 14:42 332.9 ng/mL (13.0-400.0) 02/03/19 14:42 0.90 mg/dL (0.1-1.2) 02/02/19 05:53 0.7 mg/dL (0-0.2) H 02/01/19 07:29 0.5 mg/dL 02/01/19 07:29 AST 51 units/L (5-40) H 02/02/19 05:53 ALT 16 units/L (7-56) 02/02/19 05:53 76 units/L (35-129) 02/02/19 05:53 0.181 ng/mL (0.00-0.029) H* 02/01/19 07:16 32.30 mg/dL (0.00-1.30) H 02/01/19 17:04 8.0 g/dL (6.3-8.2) 02/02/19 05:53 1.6 g/dL (3.9-5) L 02/02/19 05:53 0.3 % 02/02/19 05:53 Triglycerides 95 mg/dL (2-149) 02/01/19 07:16 Cholesterol 75 mg/dL (50-199) 02/01/19 07:16 34 mg/dL (50-130) L 02/01/19 07:16 20 mg/dL (40-59) L 02/01/19 07:16 3.75 % 02/01/19 07:16 Vitamin B12 1468 pg/mL (211-911) H 02/03/19 14:42 5.18 ng/mL (7.3-26.0) L 02/03/19 14:42 TSH 8.470 mlU/mL (0.270-4.200) H 02/01/19 07:43 Free T4 1.08 ng/dL (0.76-1.46) 02/01/19 07:43 Sara (Yellow) 02/01/19 09:45 Cloudy (Clear) 02/01/19 09:45 5.0 (5.0-7.0) 02/01/19 09:45 Ur Specific [place] 1.019 (1.003-1.030) 02/01/19 09:45 >500 mg/dL (Negative) 02/01/19 09:45 Neg mg/dL (Negative) 02/01/19 09:45 Neg mg/dL (Negative) 02/01/19 09:45 Mod (Negative) 02/01/19 09:45 Neg (Negative) 02/01/19 09:45 Neg (Negative) 02/01/19 09:45 < 2.0 mg/dL (<2.0) 02/01/19 09:45 Ur Leukocyte Esterase Neg (Negative) 02/01/19 09:45 16.0 /HPF (0.0-6.0) H 02/01/19 09:45 77.0 /HPF (0.0-6.0) 02/01/19 09:45 U Epithel Cells (Auto) 2.0 /HPF (0-13.0) 02/01/19 09:45 Amorphous Crystals 1+ 02/01/19 09:45 Few /HPF 02/01/19 09:45 Random Vancomycin 9.8 ug/mL (0-40.0) 02/03/19 03:30 36 mg/dL (83-193) L 02/01/19 16:51 12 mg/dL (15-57) L 02/01/19 16:51 RPR Nonreactive (Nonreactive) 02/02/19 15:45 Hepatitis A IgM Ab Non-reactive (NonReactive) 02/02/19 19:29 Hep Bs Antigen Non-reactive (Negative) 02/02/19 19:29 Hep B Core IgM Ab Non-reactive (NonReactive) 02/02/19 19:29 Non-reactive (NonReactive) 02/02/19 19:29 HIV 1&2 Antibody Rapid Non react (Non React) 02/02/19 15:46 Non react (Non React) 02/02/19 15:46 Active Medications - Current Medications Current Medications: Generic Name Dose Route Start Last Admin Trade Name Freq PRN Reason Stop Dose Admin Acetaminophen 650 mg 02/01/19 10:47 02/04/19 17:02 Tylenol PO 650 mg Q4H PRN Administration Pain MILD(1-3)/Fever >100.5/VALENZUELA Albuterol 2.5 mg 02/01/19 10:47 Proventil IH Q4HRT PRN Shortness Of Breath Albuterol/Ipratropium 1 ampul 02/01/19 12:00 02/05/19 08:24 Duoneb *Not For Prn Use* IH 1 ampul Q6HRT AMOL Administration Lipase/Protease/Amylase 1 each 02/05/19 11:04 Pancreaze 10,500 Unit FEEDTUBE PRN PRN For Clogged Feeding Tube Famotidine 20 mg 02/03/19 10:00 02/05/19 09:42 Pepcid IV 20 mg QDAY AMOL Administration Hydrophilic Ointment 1 applic 02/01/19 11:09 02/02/19 16:50 Vaseline Lip Therapy TP 1 applic Q2HR PRN Administration Dry Lips Midazolam HCl 100 mg/ Sodium 100 mls @ 2 mls/hr 02/01/19 12:00 02/03/19 07:40 Chloride IV 0 mg/hr TITR AMOL 0 mls/hr Titration Protocol 2 MG/HR Sodium Chloride 1,000 mls @ 125 mls/hr 02/04/19 18:00 02/05/19 01:47 Nacl 0.9% 1000 Ml IV 125 mls/hr DIRECT AMOL Administration Ceftriaxone Sodium 2 gm in 100 mls @ 200 mls/hr 02/05/19 13:00 Rocephin/Ns 2 Gm/100 Ml IV Q12HR AMOL Protocol Sodium Chloride 500 mls @ 0 mls/hr 02/05/19 13:00 Nacl 0.9% 500 Ml IV 02/05/19 13:01 ONCE ONE As Directed Midazolam HCl 2 mg 02/01/19 11:09 02/01/19 11:42 Versed IV 2 mg Q10MIN PRN Administration Sedation Morphine Sulfate 2 mg 02/01/19 10:47 Morphine IV Q4H PRN Pain, Moderate (4-6) Multi-Ingred Cream/Lotion/Oil/Oint 1 applic 02/01/19 11:09 02/02/19 16:50 Artificial Tears Ophth Oint OU 1 applic Q4HR PRN Administration Dry Eye(s) Ondansetron HCl 4 mg 02/01/19 10:47 Zofran IV Q8H PRN Nausea And Vomiting Simple Syrup 15 ml 02/05/19 11:04 Simple Syrup FEEDTUBE PRN PRN Hypoglycemia Simple Syrup 30 ml 02/05/19 11:04 Simple Syrup FEEDTUBE PRN PRN Hypoglycemia Sodium Bicarbonate 325 mg 02/05/19 11:04 Sodium Bicarbonate FEEDTUBE PRN PRN For Clogged Feeding Tube Sodium Chloride 10 ml 02/01/19 22:00 02/05/19 09:42 Sodium Chloride Flush Syringe 10 Ml IV 10 ml BID AMOL Administration Sodium Chloride 10 ml 02/01/19 10:47 Sodium Chloride Flush Syringe 10 Ml IV PRN PRN LINE FLUSH Nutrition/Malnutrition Assess - Dietary Evaluation Nutrition/Malnutrition Findings: Nutrition Notes Start: 02/02/19 15:11 Freq: Status: Active Protocol: Document 02/05/19 10:58 LP (Rec: 02/05/19 11:08 LP [id number]) Nutrition Notes Initial or Follow up Reassessment Current Diagnosis Acute Kidney Injury, Respiratory Failure Other Pertinent Diagnosis Hypothyroidism, Septic shock, Acute encephalopathy, UTI Current Diet NPO Labs/Tests Reviewed Pertinent Medications Reviewed Height 5 ft 5 in Weight 85.275 kg [place] Body Weight (kg) 56.81 BMI 31.2 Subjective/Other Information Consult for TF. Pt continues on vent. Burn Absent Trauma Absent Minimum of two criteria No #1 Nutrition Diagnosis Inadequate oral intake Diagnosis Progress(for reassessment Continues documentation) Is patient on ventilator? Yes Is Patient Ambulatory and/or Out of Bed No REE-([place]-confined to bed) [phone] Calculation Used for Recommendations Mike Velazco Additional Notes Protein Needs: 114g (2g/kg IBW ) Fluid Needs: 1 ml/kcal Nutrition Intervention Change Diet Order: TF Nutrition Support: Change to [place] at 40ml/hr Flush with 170ml q4h Kcal 1,728 Protein (gm) 78 Fluid (mL) 697 Goal #1 Meet at least 80% of kcal and protein needs via TF Anticipated Discharge Needs: Unable to determine at this time Follow-Up By: 02/07/19 Additional Comments Follow for TF start/tolerance
[2019-02-05] MEDS: cefTRIAXone/NS 2 GM/100 ML 2 GM/100 ML BAG IV SCH ×2 (13:00→22:11)
[2019-02-05] MEDS ORDERED: SODIUM CHLORIDE 0.9% 500 ML 500 ML IV ONE (13:00)
--- NOTE | 2019-02-05 13:38 | Event Note ---
Date: 02/05/19 Patient was evaluated in ICU, for TERRENCE. Platelet count is 20.000/cmm. Would like to wait till Platelets at least above 50.000/cmm. .
[2019-02-05 13:43] LABS: Hematocrit 31.6 % (30.3-42.9); Mean Corpuscular HGB Conc 32 % (30-34); Mean Corpuscular Volume 91 fl (79-97); Red Blood Count 3.48 M/mm3 (3.65-5.03); Red Cell Distribution Width 16.3 % (13.2-15.2)
[2019-02-05 13:45] LABS: Platelet Count 50 K/mm3 (140-440)
[2019-02-05 14:25] LABS: BUN/Creatinine Ratio TNR; Blood Urea Nitrogen TNR mg/dL (7-17)
[2019-02-05 14:26] LABS: Calcium TNR mg/dL (8.4-10.2); Hemolysis Index TNR
[2019-02-05 15:13] LABS: Band Neutrophils # (Manual) 0.2 K/mm3; Basophils % (Manual) 0 % (0.0-1.8); Eosinophils % (Manual) 0 % (0.0-4.3); Total Cells Counted 100
[2019-02-05 15:14] LABS: Anisocytosis 1+
[2019-02-05 15:15] LABS: Ovalocytes Few; Platelet Estimate Consistent w Auto; Target Cells Few
[2019-02-05 15:50] LABS: Calcium 7.7 mg/dL (8.4-10.2)
--- NOTE | 2019-02-05 16:01 | XRay Report ---
ABDOMEN 1 VIEW(S) INDICATION / CLINICAL INFORMATION: OGT placement. COMPARISON: None available. FINDINGS: TUBES / LINES: A nasogastric tube terminates in the body of the stomach. BOWEL GAS PATTERN: No significant abnormality. FREE AIR / EXTRALUMINAL GAS: None seen. ADDITIONAL FINDINGS: Mild cardiomegaly is suspected at the lung bases. IMPRESSION: The nasogastric tube terminates in the mid stomach. Signer Name: Bret Escobar Jr, MD Signed: 02/05/2019 3:56 PM Workstation Name: [id number]
[2019-02-05] MEDS: MORPHINE 2 MG/1 ML INJ IV PRN ×2 (16:30→22:14)
[2019-02-05] MEDS: ACETAMINOPHEN 325 MG TAB PO PRN (16:46)
[2019-02-05 20:16] LABS: Hematocrit 29.2 % (30.3-42.9); Hemoglobin 9.4 gm/dl (10.1-14.3); Mean Corpuscular HGB Conc 32 % (30-34); Mean Corpuscular Volume 90 fl (79-97); Red Blood Count 3.24 M/mm3 (3.65-5.03); Red Cell Distribution Width 16.3 % (13.2-15.2)
[2019-02-05 20:17] LABS: Platelet Count 71 K/mm3 (140-440)
[2019-02-05 21:11] LABS: Basophils % (Manual) 0 % (0.0-1.8); Eosinophils % (Manual) 0 % (0.0-4.3); Total Cells Counted 100
[2019-02-05 21:12] LABS: Platelet Estimate Appears Decreased
[2019-02-05 21:13] LABS: Anisocytosis 1+; Large Platelets 1+; Poikilocytosis 1+
--- NOTE | 2019-02-06 02:11 | Consultation ---
REFERRING PHYSICIAN: Dr. Nura Barton. REASON FOR CONSULTATION: Low platelets. HISTORY OF PRESENT ILLNESS: I saw the patient, a 53-year-old -[place] female in the ICU. The patient has a history of hypothyroidism, hypertension, and autoimmune disease. The patient went to dinner with family members, was confused, and was barely speaking. EMS was called, but the patient refused to come to the hospital. In the morning, the patient was found in her bed, unresponsive and son called the hospital. History of cough present, history of sore throat present. The patient was intubated for respiratory distress. Blood count showed a low platelet. I have been asked to evaluate the patient. Antibiotics have been started. In the right side of neck, there is some inflammation on Radiology suggestive of cellulitis. PAST MEDICAL HISTORY: Hypertension, hypothyroidism. PAST SURGICAL HISTORY: Nil significant. SOCIAL HISTORY: No history of smoking. ALLERGIES: None. HOME MEDICATIONS: Levothyroxine, lisinopril, amlodipine, and Klonopin. PHYSICAL EXAMINATION: VITAL SIGNS: Temperature 98, pulse 109, respirations 24, BP 123/66. Intubated. During this admission, the patient has been seen by Neurology team, ID team, Nephrology and Pulmonary team. HEENT: No pallor, no icterus. NECK: No neck lymph nodes. HEART: S1, S2. LUNGS: Decreased air entry. ABDOMEN: Soft. NEUROLOGIC: Not responding. LABORATORY DATA: White cell 9.8, hemoglobin 10.7, MCV 90, platelet 20, platelet count trend shows that on 02/01/2019, it was 62 and then it was gone down. The patient has undergone radiology of chest and neck. ASSESSMENT AND PLAN: 1. Thrombocytopenia, sepsis/infection/antibiotic related. Folate level is low, we will replace. B12 is normal. Serum iron is low, but ferritin is not low. HIV negative. Fibrinogen level is not low. PT, PTT is not abnormal. Supportive care at this time will help the patient. 2. Diabetes. 3. Hypothyroidism. 4. History of renal impairment, on supportive care. 5. Intubation for respiratory issues. 6. Neurology team saw the patient. Neurology thinks it is septic metabolic encephalopathy. I will follow the patient during inpatient stay. JOB# [id number] NM/NTS
[2019-02-06] MEDS: IPRATROPIUM/ALBUTEROL SULFATE 3 ML AMPUL.NEB IH SCH ×4 (02:30→19:12)
--- NOTE | 2019-02-06 03:17 | XRay Report ---
CHEST 1 VIEW 2:23 AM INDICATION / CLINICAL INFORMATION: Follow-up respiratory failure. COMPARISON: Yesterday. FINDINGS: SUPPORT DEVICES: The positions of the endotracheal and nasogastric tubes have not changed. HEART / MEDIASTINUM: Cardiomegaly is stable. LUNGS / PLEURA: Patchy parenchymal disease in both mid to lower lung zones is again identified. Left retrocardiac opacity has increased with obscuration of the hemidiaphragm present. No pneumothorax. ADDITIONAL FINDINGS: No significant additional findings. IMPRESSION: Parenchymal disease in both lower lung zones, increased on the left compared to yesterday . Signer Name: Krunal Crowder MD Signed: 02/06/2019 3:12 AM Workstation Name: [id number]
[2019-02-06] MEDS: MORPHINE 2 MG/1 ML INJ IV PRN ×3 (04:39→20:14)
[2019-02-06 05:47] LABS: ABG Base Excess 0.8 mmol/L (-2.0-3.0); ABG HCO3 25.1 mmol/L (20.0-26.0); ABG Methemoglobin 0.5 % (0.0-1.5); ABG PCO2 37.8 mm Hg; ABG PH 7.44 pH Units (7.350-7.450); ABG PO2 82.6 mm Hg (80.0-90.0)
--- NOTE | 2019-02-06 07:48 | Hem/Onc Progress Note ---
Assessment and Plan 1. Thrombocytopenia, sepsis/infection/antibiotic related. Folate level is low, B12 is normal. Serum iron is low, but ferritin is not low. HIV negative. Fibrinogen level is not low. PT, PTT is not abnormal. Supportive care at this time will help the patient. 2. Diabetes. 3. Hypothyroidism. 4. History of renal impairment, on supportive care. 5. Intubation for respiratory issues. 6. Neurology team saw the patient. Neurology thinks it is septic metabolic encephalopathy. I will follow the patient during inpatient stay. plt better pt still - on vent - unresponsive - Patient Problems (1) Thrombocytopenia Current Visit: Yes Status: Acute Subjective Date of service: 02/06/19 Principal diagnosis: low plt Interval history: on vent Objective - Exam Narrative Exam: Pain - not evaluable General appearance intubated Performance status complete dependent Eyes - no icterus ENT - no bleeding - on vent LNs cervical not palpable Neck - no LN Respiratory Normal Breath sounds - CTA anteriorly CVS S1 S2 + Extremities normal temperature General GI Soft Rectal deferred female - deferred Skin warm Musculoskeletal not moving Neurologically not responding - Constitutional Vitals: Last Vital Signs Temp 97.6 F 02/06/19 02:45 Pulse 96 H 02/06/19 03:59 Resp 17 02/06/19 02:38 BP 142/87 02/06/19 03:59 Pulse Ox 95 02/06/19 03:59 - Labs Lab Results: Laboratory Results - last 24 hr 02/05/19 02/05/19 02/05/19 09:14 13:02 13:02 WBC 11.7 H RBC 3.48 L Hgb 10.0 L Hct 31.6 MCV 91 MCH 29 MCHC 32 RDW 16.3 H Plt Count 50 L D Lymph % (Auto) [employer]er Lee % (Auto) [employer] Designer Eos % (Auto) [employer] Designer Baso % (Auto) [employer] Designer Lymph # [employer] Video Graphics Designer Lee # Film And Video Graphics Designer Eos # Film And Video Graphics Designer Baso # Film And Video Graphics Designer Add Manual Diff Complete Total Counted 100 Seg Neutrophils % [employer] Video Graphics Designer Seg Neuts % (Manual) 95.0 H Band Neutrophils % 2.0 Lymphocytes % (Manual) 0 L Reactive Lymphs % (Man) 0 Monocytes % (Manual) 3.0 Eosinophils % (Manual) 0 Basophils % (Manual) 0 Metamyelocytes % 0 Myelocytes % 0 Promyelocytes % 0 Blast Cells % 0 Nucleated RBC % Not Reportable Seg Neutrophils # Film And Video Graphics Designer Seg Neutrophils # Man 11.1 H Band Neutrophils # 0.2 Lymphocytes # (Manual) 0.0 L Abs React Lymphs (Man) 0.0 Monocytes # (Manual) 0.4 Eosinophils # (Manual) 0.0 Basophils # (Manual) 0.0 Metamyelocytes # 0.0 Myelocytes # 0.0 Promyelocytes # 0.0 Blast Cells # 0.0 WBC Morphology Not Reportable Hypersegmented Neuts Not Reportable Hyposegmented Neuts Not Reportable Hypogranular Neuts Not Reportable Smudge Cells Not Reportable Toxic Granulation Not Reportable Toxic Vacuolation Not Reportable Dohle Bodies Not Reportable Pelger-Huet Anomaly Not Reportable Raghav Rods Not Reportable Platelet Estimate Consistent w auto Clumped Platelets Not Reportable Plt Clumps, EDTA Not Reportable Large Platelets Not Reportable Giant Platelets Not Reportable Platelet Satelliting Not Reportable Plt Morphology Comment Not Reportable RBC Morphology Not Reportable Dimorphic RBCs Not Reportable Polychromasia Not Reportable Hypochromasia Not Reportable Poikilocytosis Not Reportable Anisocytosis 1+ Microcytosis Few Macrocytosis Not Reportable Spherocytes Not Reportable Pappenheimer Bodies Not Reportable Sickle Cells Not Reportable Target Cells Few Tear Drop Cells Not Reportable Ovalocytes Few Helmet Cells Not Reportable [place]ic[place] Bodies Not Reportable Clementon Rings Not Reportable Kenna Cells Not Reportable Bite Cells Not Reportable Crenated Cell Not Reportable Elliptocytes Few Acanthocytes (Spur) Not Reportable Rouleaux Not Reportable Hemoglobin C Crystals Not Reportable Schistocytes Not Reportable Malaria parasites Not Reportable Riccardo Bodies Not Reportable Hem Pathologist Commnt No ABG pH ABG pCO2 ABG pO2 ABG HCO3 ABG O2 Saturation ABG O2 Content ABG Base Excess ABG Hemoglobin ABG Carboxyhemoglobin ABG Methemoglobin Oxyhemoglobin FiO2 Sodium TNR Potassium TNR Chloride TNR Carbon Dioxide TNR Anion Gap TNR BUN TNR Creatinine TNR Estimated GFR TNR BUN/Creatinine Ratio TNR Glucose TNR POC Glucose 71 Calcium TNR Blood Type 02/05/19 02/05/19 02/05/19 13:02 14:36 20:03 WBC 10.7 RBC 3.24 L Hgb 9.4 L Hct 29.2 L MCV 90 MCH 29 MCHC 32 RDW 16.3 H Plt Count 71 L Lymph % (Auto) Lee % (Auto) Eos % (Auto) Baso % (Auto) Lymph # Lee # Eos # Baso # Add Manual Diff Complete Total Counted 100 Seg Neutrophils % Seg Neuts % (Manual) 95.0 H Band Neutrophils % 0 Lymphocytes % (Manual) 2.0 L Reactive Lymphs % (Man) 0 Monocytes % (Manual) 3.0 Eosinophils % (Manual) 0 Basophils % (Manual) 0 Metamyelocytes % 0 Myelocytes % 0 Promyelocytes % 0 Blast Cells % 0 Nucleated RBC % Not Reportable Seg Neutrophils # Seg Neutrophils # Man 10.2 H Band Neutrophils # 0.0 Lymphocytes # (Manual) 0.2 L Abs React Lymphs (Man) 0.0 Monocytes # (Manual) 0.3 Eosinophils # (Manual) 0.0 Basophils # (Manual) 0.0 Metamyelocytes # 0.0 Myelocytes # 0.0 Promyelocytes # 0.0 Blast Cells # 0.0 WBC Morphology Not Reportable Hypersegmented Neuts Not Reportable Hyposegmented Neuts Not Reportable Hypogranular Neuts Not Reportable Smudge Cells Not Reportable Toxic Granulation Not Reportable Toxic Vacuolation Not Reportable Dohle Bodies Not Reportable Pelger-Huet Anomaly Not Reportable Raghav Rods Not Reportable Platelet Estimate Appears decreased Clumped Platelets Not Reportable Plt Clumps, EDTA Not Reportable Large Platelets 1+ Giant Platelets Not Reportable Platelet Satelliting Not Reportable Plt Morphology Comment Not Reportable RBC Morphology Not Reportable Dimorphic RBCs Not Reportable Polychromasia Not Reportable Hypochromasia Not Reportable Poikilocytosis 1+ Anisocytosis 1+ Microcytosis Not Reportable Macrocytosis Not Reportable Spherocytes Not Reportable Pappenheimer Bodies Not Reportable Sickle Cells Not Reportable Target Cells Not Reportable Tear Drop Cells Not Reportable Ovalocytes Not Reportable Helmet Cells Not Reportable [place] Bodies Not Reportable [place] Rings Not Reportable Duc Cells Not Reportable Bite Cells Not Reportable Crenated Cell Not Reportable Elliptocytes Not Reportable Acanthocytes (Spur) Not Reportable Rouleaux Not Reportable Hemoglobin C Crystals Not Reportable Schistocytes Not Reportable Malaria parasites Not Reportable Riccardo Bodies Not Reportable Hem Pathologist Commnt No ABG pH ABG pCO2 ABG pO2 ABG HCO3 ABG O2 Saturation ABG O2 Content ABG Base Excess ABG Hemoglobin ABG Carboxyhemoglobin ABG Methemoglobin Oxyhemoglobin FiO2 Sodium 144 Potassium 4.0 Chloride 105.9 Carbon Dioxide 24 Anion Gap 18 BUN 67 H Creatinine 1.5 H Estimated GFR 44 BUN/Creatinine Ratio 45 Glucose 66 POC Glucose Calcium 7.7 L Blood Type B POSITIVE 02/06/19 02/06/19 05:39 Unknown WBC RBC Hgb Hct MCV MCH MCHC RDW Plt Count Lymph % (Auto) Lee % (Auto) Eos % (Auto) Baso % (Auto) Lymph # Lee # Eos # Baso # Add Manual Diff Total Counted Seg Neutrophils % Seg Neuts % (Manual) Band Neutrophils % Lymphocytes % (Manual) Reactive Lymphs % (Man) Monocytes % (Manual) Eosinophils % (Manual) Basophils % (Manual) Metamyelocytes % Myelocytes % Promyelocytes % Blast Cells % Nucleated RBC % Seg Neutrophils # Seg Neutrophils # Man Band Neutrophils # Lymphocytes # (Manual) Abs React Lymphs (Man) Monocytes # (Manual) Eosinophils # (Manual) Basophils # (Manual) Metamyelocytes # Myelocytes # Promyelocytes # Blast Cells # WBC Morphology Hypersegmented Neuts Hyposegmented Neuts Hypogranular Neuts Smudge Cells Toxic Granulation Toxic Vacuolation Dohle Bodies Pelger-Huet Anomaly Raghav Rods Platelet Estimate Clumped Platelets Plt Clumps, EDTA Large Platelets Giant Platelets Platelet Satelliting Plt Morphology Comment RBC Morphology Dimorphic RBCs Polychromasia Hypochromasia Poikilocytosis Anisocytosis Microcytosis Macrocytosis Spherocytes Pappenheimer Bodies Sickle Cells Target Cells Tear Drop Cells Ovalocytes Helmet Cells Hickey-[place] Bodies [place] Rings Kenna Cells Bite Cells Crenated Cell Elliptocytes Acanthocytes (Spur) Rouleaux Hemoglobin C Crystals Schistocytes Malaria parasites Riccardo Bodies Hem Pathologist Commnt ABG pH 7.440 ABG pCO2 37.8 ABG pO2 82.6 ABG HCO3 25.1 ABG O2 Saturation 97.0 ABG O2 Content 6.9 ABG Base Excess 0.8 ABG Hemoglobin 5.0 L ABG Carboxyhemoglobin 1.7 ABG Methemoglobin 0.5 Oxyhemoglobin 94.9 L FiO2 25 Sodium Potassium Chloride Carbon Dioxide Anion Gap BUN Creatinine Estimated GFR BUN/Creatinine Ratio Glucose POC Glucose 107 H Calcium Blood Type Medications & Allergies - Medications Allergies/Adverse Reactions: Allergies No Known Allergies Allergy (Verified 08/18/18 09:04) Home Medications: Home Medications Medication Instructions Recorded Confirmed Last Taken Type Levothyroxine [Synthroid] 112 mcg PO QAM 02/01/19 02/01/19 Unknown History Lisinopril [Zestril TAB] 40 mg PO QDAY 02/01/19 02/01/19 Unknown History amLODIPine [Norvasc] 10 mg PO DAILY 02/01/19 02/01/19 Unknown History cloNIDine [Catapres] 1 mg PO QDAY 02/01/19 02/01/19 Unknown History Active Medications: Generic Name Dose Route Start Last Admin Trade Name Freq PRN Reason Stop Dose Admin Acetaminophen 650 mg 02/01/19 10:47 02/05/19 16:46 Tylenol PO 650 mg Q4H PRN Administration Pain MILD(1-3)/Fever >100.5/VALENZUELA Albuterol 2.5 mg 02/01/19 10:47 Proventil IH Q4HRT PRN Shortness Of Breath Albuterol/Ipratropium 1 ampul 02/01/19 12:00 02/06/19 02:30 Duoneb *Not For Prn Use* IH 1 ampul Q6HRT AMOL Administration Lipase/Protease/Amylase 1 each 02/05/19 11:04 Pancreazchris Hammond 10,500 Unit FEEDTUBE PRN PRN For Clogged Feeding Tube Famotidine 20 mg 02/03/19 10:00 02/05/19 09:42 Pepcid IV 20 mg QDAY AMOL Administration Folic Acid 1 mg 02/06/19 10:00 Folvite PO QDAY AMOL Hydrophilic Ointment 1 applic 02/01/19 11:09 02/02/19 16:50 Vaseline Lip Therapy TP 1 applic Q2HR PRN Administration Dry Lips Midazolam HCl 100 mg/ Sodium 100 mls @ 2 mls/hr 02/01/19 12:00 02/03/19 07:40 Chloride IV 0 mg/hr TITR AMOL 0 mls/hr Titration Protocol 2 MG/HR Sodium Chloride 1,000 mls @ 125 mls/hr 02/04/19 18:00 02/05/19 22:12 Nacl 0.9% 1000 Ml IV 125 mls/hr DIRECT AMOL Administration Ceftriaxone Sodium 2 gm in 100 mls @ 200 mls/hr 02/05/19 13:00 02/05/19 22:11 Rocephin/Ns 2 Gm/100 Ml IV 200 mls/hr Q12HR AMOL Administration Protocol Midazolam HCl 2 mg 02/01/19 11:09 02/01/19 11:42 Versed IV 2 mg Q10MIN PRN Administration Sedation Morphine Sulfate 2 mg 02/01/19 10:47 02/06/19 04:39 Morphine IV 2 mg Q4H PRN Administration Pain, Moderate (4-6) Multi-Ingred Cream/Lotion/Oil/Oint 1 applic 02/01/19 11:09 02/02/19 16:50 Artificial Tears Ophth Oint OU 1 applic Q4HR PRN Administration Dry Eye(s) Multivitamins 5 ml 02/06/19 10:00 Centrum Liq PO QDAY AMOL Ondansetron HCl 4 mg 02/01/19 10:47 Zofran IV Q8H PRN Nausea And Vomiting Simple Syrup 15 ml 02/05/19 11:04 Simple Syrup FEEDTUBE PRN PRN Hypoglycemia Simple Syrup 30 ml 02/05/19 11:04 Simple Syrup FEEDTUBE PRN PRN Hypoglycemia Sodium Bicarbonate 325 mg 02/05/19 11:04 Sodium Bicarbonate FEEDTUBE PRN PRN For Clogged Feeding Tube Sodium Chloride 10 ml 02/01/19 22:00 02/05/19 22:17 Sodium Chloride Flush Syringe 10 Ml IV 10 ml BID AMOL Administration Sodium Chloride 10 ml 02/01/19 10:47 Sodium Chloride Flush Syringe 10 Ml IV PRN PRN LINE FLUSH
[2019-02-06 08:25] LABS: INR 1.35 (0.87-1.13)
[2019-02-06 08:26] LABS: Partial Thromboplastin Time 33.1 Sec. (24.2-36.6)
[2019-02-06] MEDS: FAMOTIDINE 20 MG/2 ML INJ IV SCH (09:30)
[2019-02-06] MEDS: FOLIC ACID 1 MG TAB PO SCH (09:30)
[2019-02-06] MEDS: cefTRIAXone/NS 2 GM/100 ML 2 GM/100 ML BAG IV SCH ×2 (09:30→22:02)
[2019-02-06] MEDS: MULTIVITAMINS 5 ML ORAL LIQUID PO SCH (09:30)
--- NOTE | 2019-02-06 11:06 | Progress Note ---
Assessment and Plan Impression: * Oliguric acute kidney injury secondary to sepsis related ATN --SCr 1.22mg/dl in Sep 2017, 1.5 today * Sepsis * Cellulitis of neck, right --CT Neck: inflammation on the right side of the neck suggestive of cellulitis * Streptococcal bacteremia * Acute encephalopathy * Acute respiratory failure * Metabolic acidosis secondary to lactic acidosis * ?Autoimmune disease * Microscopic hematuria * Proteinuria * Thrombocytopenia Plan: * Renal function improving with supportive measures, no indications for renal replacement therapy * Continue conservative management for now * Continue NS as tolerated for IVF * Vent management per CCM * CHESTER, ANCA pending; HIV negative. Complements low likely in setting of acute infection * Abx per ID * Management of platelet abnormalities per hematology * Dose medications for renal function * Avoid potential nephrotoxic agents * Strict I/O Subjective Date of service: 02/06/19 Principal diagnosis: sepsis Interval history: no acute changes overnight. remains intubated Objective - Exam Narrative Exam: General appearance: well-developed, well-nourished, intubated EENT: ATNC, ETT in place Respiratory: coarse mechanical breath sounds noted Cardiology: regular, S1S2 Gastrointestinal: normal, no tenderness, no distended Integumentary: warm and dry Musculoskeletal: no edema - Vital Signs Vital signs: Vital Signs - 12hr 02/05/19 02/05/19 02/05/19 23:17 23:32 23:51 Temperature 98.7 F Pulse Rate 95 H 94 H Pulse Rate [ Anterior Bilateral Throughout] Pulse Rate [ From Monitor] Respiratory 20 Rate Respiratory Rate [Anterior Bilateral Throughout] Blood Pressure 135/81 135/81 O2 Sat by Pulse 95 96 Oximetry 02/06/19 02/06/19 02/06/19 00:00 00:11 00:21 Temperature Pulse Rate 95 H 94 H 93 H Pulse Rate [ Anterior Bilateral Throughout] Pulse Rate [ From Monitor] Respiratory 18 23 18 Rate Respiratory Rate [Anterior Bilateral Throughout] Blood Pressure 136/78 136/78 136/78 O2 Sat by Pulse 96 96 96 Oximetry 02/06/19 02/06/19 02/06/19 00:31 00:41 00:51 Temperature Pulse Rate 94 H 92 H 92 H Pulse Rate [ Anterior Bilateral Throughout] Pulse Rate [ From Monitor] Respiratory 21 20 21 Rate Respiratory Rate [Anterior Bilateral Throughout] Blood Pressure 136/78 136/78 136/78 O2 Sat by Pulse 96 96 96 Oximetry 02/06/19 02/06/19 02/06/19 01:00 01:11 01:21 Temperature Pulse Rate 96 H 91 H 92 H Pulse Rate [ Anterior Bilateral Throughout] Pulse Rate [ From Monitor] Respiratory 18 21 18 Rate Respiratory Rate [Anterior Bilateral Throughout] Blood Pressure 137/82 137/82 137/82 O2 Sat by Pulse 96 96 96 Oximetry 02/06/19 02/06/19 02/06/19 01:31 01:41 01:51 Temperature Pulse Rate 107 H 94 H 115 H Pulse Rate [ Anterior Bilateral Throughout] Pulse Rate [ From Monitor] Respiratory 20 20 20 Rate Respiratory Rate [Anterior Bilateral Throughout] Blood Pressure 137/82 137/82 137/82 O2 Sat by Pulse 95 95 95 Oximetry 02/06/19 02/06/19 02/06/19 02:01 02:11 02:21 Temperature Pulse Rate 98 H 98 H 97 H Pulse Rate [ Anterior Bilateral Throughout] Pulse Rate [ From Monitor] Respiratory 18 22 17 Rate Respiratory Rate [Anterior Bilateral Throughout] Blood Pressure 133/75 133/75 133/75 O2 Sat by Pulse 96 95 96 Oximetry 02/06/19 02/06/19 02/06/19 02:31 02:38 02:41 Temperature Pulse Rate 95 H 132 H Pulse Rate [ 90 Anterior Bilateral Throughout] Pulse Rate [ From Monitor] Respiratory 18 21 Rate Respiratory 17 Rate [Anterior Bilateral Throughout] Blood Pressure 133/75 133/75 O2 Sat by Pulse 96 98 Oximetry 02/06/19 02/06/19 02/06/19 02:45 02:52 03:00 Temperature 97.6 F Pulse Rate 101 H 100 H Pulse Rate [ Anterior Bilateral Throughout] Pulse Rate [ From Monitor] Respiratory 23 24 Rate Respiratory Rate [Anterior Bilateral Throughout] Blood Pressure 133/75 133/75 O2 Sat by Pulse 96 96 Oximetry 02/06/19 02/06/19 02/06/19 03:11 03:21 03:31 Temperature Pulse Rate 97 H 105 H 99 H Pulse Rate [ Anterior Bilateral Throughout] Pulse Rate [ From Monitor] Respiratory 22 23 23 Rate Respiratory Rate [Anterior Bilateral Throughout] Blood Pressure 142/87 142/87 O2 Sat by Pulse 96 96 96 Oximetry 02/06/19 02/06/19 02/06/19 03:41 03:51 03:59 Temperature Pulse Rate 98 H 96 H 96 H Pulse Rate [ Anterior Bilateral Throughout] Pulse Rate [ From Monitor] Respiratory 23 21 Rate Respiratory Rate [Anterior Bilateral Throughout] Blood Pressure 142/87 142/87 142/87 O2 Sat by Pulse 96 95 95 Oximetry 02/06/19 02/06/19 02/06/19 04:00 04:11 04:21 Temperature Pulse Rate 96 H 93 H 92 H Pulse Rate [ Anterior Bilateral Throughout] Pulse Rate [ From Monitor] Respiratory 23 19 22 Rate Respiratory Rate [Anterior Bilateral Throughout] Blood Pressure 138/80 138/80 138/80 O2 Sat by Pulse 97 96 96 Oximetry 02/06/19 02/06/19 02/06/19 04:31 04:41 04:51 Temperature Pulse Rate 95 H 97 H 95 H Pulse Rate [ Anterior Bilateral Throughout] Pulse Rate [ From Monitor] Respiratory 23 21 19 Rate Respiratory Rate [Anterior Bilateral Throughout] Blood Pressure 138/80 138/80 138/80 O2 Sat by Pulse 97 96 96 Oximetry 02/06/19 02/06/19 02/06/19 05:01 05:11 05:21 Temperature Pulse Rate 98 H 115 H 98 H Pulse Rate [ Anterior Bilateral Throughout] Pulse Rate [ From Monitor] Respiratory 22 23 17 Rate Respiratory Rate [Anterior Bilateral Throughout] Blood Pressure 145/86 145/86 145/86 O2 Sat by Pulse 97 96 96 Oximetry 02/06/19 02/06/19 02/06/19 05:31 05:41 05:51 Temperature Pulse Rate 100 H 101 H 98 H Pulse Rate [ Anterior Bilateral Throughout] Pulse Rate [ From Monitor] Respiratory 21 18 20 Rate Respiratory Rate [Anterior Bilateral Throughout] Blood Pressure 145/86 145/86 145/86 O2 Sat by Pulse 96 95 95 Oximetry 02/06/19 02/06/19 02/06/19 06:01 06:11 06:21 Temperature Pulse Rate 122 H 103 H 97 H Pulse Rate [ Anterior Bilateral Throughout] Pulse Rate [ From Monitor] Respiratory 22 20 22 Rate Respiratory Rate [Anterior Bilateral Throughout] Blood Pressure 137/86 137/86 137/86 O2 Sat by Pulse 97 96 97 Oximetry 02/06/19 02/06/19 02/06/19 06:31 06:41 06:51 Temperature Pulse Rate 98 H 97 H 104 H Pulse Rate [ Anterior Bilateral Throughout] Pulse Rate [ From Monitor] Respiratory 22 16 23 Rate Respiratory Rate [Anterior Bilateral Throughout] Blood Pressure 137/86 137/86 137/86 O2 Sat by Pulse 96 97 97 Oximetry 02/06/19 02/06/19 02/06/19 07:00 07:11 07:21 Temperature Pulse Rate 103 H 98 H 122 H Pulse Rate [ Anterior Bilateral Throughout] Pulse Rate [ From Monitor] Respiratory 25 H 21 18 Rate Respiratory Rate [Anterior Bilateral Throughout] Blood Pressure 134/83 134/83 134/83 O2 Sat by Pulse 97 96 96 Oximetry 02/06/19 02/06/19 02/06/19 07:31 07:41 07:51 Temperature Pulse Rate 105 H 114 H 99 H Pulse Rate [ Anterior Bilateral Throughout] Pulse Rate [ From Monitor] Respiratory 21 20 22 Rate Respiratory Rate [Anterior Bilateral Throughout] Blood Pressure 134/83 134/83 134/83 O2 Sat by Pulse 97 97 97 Oximetry 02/06/19 02/06/19 02/06/19 08:00 08:05 08:08 Temperature Pulse Rate 100 H 129 H 128 H Pulse Rate [ Anterior Bilateral Throughout] Pulse Rate [ 104 H From Monitor] Respiratory 21 30 H Rate Respiratory Rate [Anterior Bilateral Throughout] Blood Pressure 138/90 138/90 138/90 O2 Sat by Pulse 98 100 97 Oximetry 02/06/19 02/06/19 02/06/19 08:11 08:17 08:21 Temperature 98.3 F Pulse Rate 112 H 106 H Pulse Rate [ Anterior Bilateral Throughout] Pulse Rate [ From Monitor] Respiratory 33 H 31 H Rate Respiratory Rate [Anterior Bilateral Throughout] Blood Pressure 138/90 138/90 O2 Sat by Pulse 96 94 Oximetry 02/06/19 02/06/19 02/06/19 08:31 08:41 08:51 Temperature Pulse Rate 102 H 96 H 99 H Pulse Rate [ Anterior Bilateral Throughout] Pulse Rate [ From Monitor] Respiratory 23 21 23 Rate Respiratory Rate [Anterior Bilateral Throughout] Blood Pressure 138/90 138/90 138/90 O2 Sat by Pulse 95 95 96 Oximetry 02/06/19 02/06/19 02/06/19 09:00 09:11 09:21 Temperature Pulse Rate 107 H 106 H 152 H Pulse Rate [ Anterior Bilateral Throughout] Pulse Rate [ From Monitor] Respiratory 22 21 24 Rate Respiratory Rate [Anterior Bilateral Throughout] Blood Pressure 150/78 150/78 148/82 O2 Sat by Pulse 96 95 96 Oximetry 02/06/19 02/06/19 02/06/19 09:31 09:41 09:51 Temperature Pulse Rate 103 H 153 H 99 H Pulse Rate [ Anterior Bilateral Throughout] Pulse Rate [ From Monitor] Respiratory 21 24 22 Rate Respiratory Rate [Anterior Bilateral Throughout] Blood Pressure 148/82 148/82 148/82 O2 Sat by Pulse 96 97 97 Oximetry 02/06/19 02/06/19 10:00 10:11 Temperature Pulse Rate 105 H 121 H Pulse Rate [ Anterior Bilateral Throughout] Pulse Rate [ From Monitor] Respiratory 23 24 Rate Respiratory Rate [Anterior Bilateral Throughout] Blood Pressure 154/92 154/92 O2 Sat by Pulse 97 97 Oximetry - Lab 02/05/19 20:03 02/05/19 14:36 Most recent lab results ABG pH 7.440 pH Units (7.350-7.450) 02/06/19 Unknown ABG pCO2 37.8 mm Hg 02/06/19 Unknown ABG pO2 82.6 mm Hg (80.0-90.0) 02/06/19 Unknown ABG HCO3 25.1 mmol/L (20.0-26.0) 02/06/19 Unknown ABG O2 Saturation 97.0 % (95.0-99.0) 02/06/19 Unknown Calcium 7.7 mg/dL (8.4-10.2) L 02/05/19 14:36 Medications & Allergies - Medications Allergies/Adverse Reactions: Allergies No Known Allergies Allergy (Verified 08/18/18 09:04) Home Medications: Home Medications Medication Instructions Recorded Confirmed Last Taken Type Levothyroxine [Synthroid] 112 mcg PO QAM 02/01/19 02/01/19 Unknown History Lisinopril [Zestril TAB] 40 mg PO QDAY 02/01/19 02/01/19 Unknown History amLODIPine [Norvasc] 10 mg PO DAILY 02/01/19 02/01/19 Unknown History cloNIDine [Catapres] 1 mg PO QDAY 02/01/19 02/01/19 Unknown History Active Medications: Generic Name Dose Route Start Last Admin Trade Name Freq PRN Reason Stop Dose Admin Acetaminophen 650 mg 02/01/19 10:47 02/05/19 16:46 Tylenol PO 650 mg Q4H PRN Administration Pain MILD(1-3)/Fever >100.5/VALENZUELA Albuterol 2.5 mg 02/01/19 10:47 Proventil IH Q4HRT PRN Shortness Of Breath Albuterol/Ipratropium 1 ampul 02/01/19 12:00 02/06/19 08:10 Duoneb *Not For Prn Use* IH Not Given Q6HRT AMOL Lipase/Protease/Amylase 1 each 02/05/19 11:04 Pancreazchris Hammond 10,500 Unit FEEDTUBE PRN PRN For Clogged Feeding Tube Famotidine 20 mg 02/03/19 10:00 02/06/19 09:30 Pepcid IV 20 mg QDAY AMOL Administration Folic Acid 1 mg 02/06/19 10:00 02/06/19 09:30 Folvite PO 1 mg QDAY AMOL Administration Hydrophilic Ointment 1 applic 02/01/19 11:09 02/02/19 16:50 Vaseline Lip Therapy TP 1 applic Q2HR PRN Administration Dry Lips Midazolam HCl 100 mg/ Sodium 100 mls @ 2 mls/hr 02/01/19 12:00 02/03/19 07:40 Chloride IV 0 mg/hr TITR AMOL 0 mls/hr Titration Protocol 2 MG/HR Ceftriaxone Sodium 2 gm in 100 mls @ 200 mls/hr 02/05/19 13:00 02/06/19 09:30 Rocephin/Ns 2 Gm/100 Ml IV 200 mls/hr Q12HR AMOL Administration Protocol Midazolam HCl 2 mg 02/01/19 11:09 02/01/19 11:42 Versed IV 2 mg Q10MIN PRN Administration Sedation Morphine Sulfate 2 mg 02/01/19 10:47 02/06/19 04:39 Morphine IV 2 mg Q4H PRN Administration Pain, Moderate (4-6) Multi-Ingred Cream/Lotion/Oil/Oint 1 applic 02/01/19 11:09 02/02/19 16:50 Artificial Tears Ophth Oint OU 1 applic Q4HR PRN Administration Dry Eye(s) Multivitamins 5 ml 02/06/19 10:00 02/06/19 09:30 Centrum Liq PO 5 ml QDAY AMOL Administration Ondansetron HCl 4 mg 02/01/19 10:47 Zofran IV Q8H PRN Nausea And Vomiting Simple Syrup 15 ml 02/05/19 11:04 Simple Syrup FEEDTUBE PRN PRN Hypoglycemia Simple Syrup 30 ml 02/05/19 11:04 Simple Syrup FEEDTUBE PRN PRN Hypoglycemia Sodium Bicarbonate 325 mg 02/05/19 11:04 Sodium Bicarbonate FEEDTUBE PRN PRN For Clogged Feeding Tube Sodium Chloride 10 ml 02/01/19 22:00 02/06/19 09:31 Sodium Chloride Flush Syringe 10 Ml IV 10 ml BID AMOL Administration Sodium Chloride 10 ml 02/01/19 10:47 Sodium Chloride Flush Syringe 10 Ml IV PRN PRN LINE FLUSH
--- NOTE | 2019-02-06 12:10 | Progress Note ---
Assessment and Plan Imp: 1. Neck cellulitis 2. Strep pneumonae Bacteremia 3. Severe sepsis 4. DIANA 5. Hyperkalemia, resolved 6. Lactic acidosis, resolved 7. Acute respiratory failure, hypoxia 8. Metabolic encephalopathy 9. Thrombocytopenia s/p plt transfusion 10. Bilateral pneumonia worsening 11. AMS ? etiology Rec: 1. ABX per ID 2. Neurological evaluation regards to AMS 3. Hyperkalemia per renal 4. Keep sedated for now; PSV trials once underlying sepsis improves 5. SCDs, Pepcid, avoid Lovenox due to thrombocytopenia 6. Prognosis is guarded; no family present 7. Continue with ventilator 8. LP and TERRENCE scheduled Case was discussed with respiratory therapist and nursing staff. Total critical care time 31 minute Subjective Date of service: 02/06/19 Principal diagnosis: sepsis Interval history: Patient remained unresponsive, off all sedation. Off all vasopressors. Currently being worked up for AMS and sepsis. Lumbar puncture today TERRENCE tomorrow Objective Vital Signs - 12hr 02/06/19 02/06/19 02/06/19 00:11 00:21 00:31 Temperature Pulse Rate 94 H 93 H 94 H Pulse Rate [ Anterior Bilateral Throughout] Pulse Rate [ From Monitor] Respiratory 23 18 21 Rate Respiratory Rate [Anterior Bilateral Throughout] Blood Pressure 136/78 136/78 136/78 O2 Sat by Pulse 96 96 96 Oximetry 02/06/19 02/06/19 02/06/19 00:41 00:51 01:00 Temperature Pulse Rate 92 H 92 H 96 H Pulse Rate [ Anterior Bilateral Throughout] Pulse Rate [ From Monitor] Respiratory 20 21 18 Rate Respiratory Rate [Anterior Bilateral Throughout] Blood Pressure 136/78 136/78 137/82 O2 Sat by Pulse 96 96 96 Oximetry 02/06/19 02/06/19 02/06/19 01:11 01:21 01:31 Temperature Pulse Rate 91 H 92 H 107 H Pulse Rate [ Anterior Bilateral Throughout] Pulse Rate [ From Monitor] Respiratory 21 18 20 Rate Respiratory Rate [Anterior Bilateral Throughout] Blood Pressure 137/82 137/82 137/82 O2 Sat by Pulse 96 96 95 Oximetry 02/06/19 02/06/19 02/06/19 01:41 01:51 02:01 Temperature Pulse Rate 94 H 115 H 98 H Pulse Rate [ Anterior Bilateral Throughout] Pulse Rate [ From Monitor] Respiratory 20 20 18 Rate Respiratory Rate [Anterior Bilateral Throughout] Blood Pressure 137/82 137/82 133/75 O2 Sat by Pulse 95 95 96 Oximetry 02/06/19 02/06/19 02/06/19 02:11 02:21 02:31 Temperature Pulse Rate 98 H 97 H 95 H Pulse Rate [ Anterior Bilateral Throughout] Pulse Rate [ From Monitor] Respiratory 22 17 18 Rate Respiratory Rate [Anterior Bilateral Throughout] Blood Pressure 133/75 133/75 133/75 O2 Sat by Pulse 95 96 96 Oximetry 02/06/19 02/06/19 02/06/19 02:38 02:41 02:45 Temperature 97.6 F Pulse Rate 132 H Pulse Rate [ 90 Anterior Bilateral Throughout] Pulse Rate [ From Monitor] Respiratory 21 Rate Respiratory 17 Rate [Anterior Bilateral Throughout] Blood Pressure 133/75 O2 Sat by Pulse 98 Oximetry 02/06/19 02/06/19 02/06/19 02:52 03:00 03:11 Temperature Pulse Rate 101 H 100 H 97 H Pulse Rate [ Anterior Bilateral Throughout] Pulse Rate [ From Monitor] Respiratory 23 24 22 Rate Respiratory Rate [Anterior Bilateral Throughout] Blood Pressure 133/75 133/75 O2 Sat by Pulse 96 96 96 Oximetry 02/06/19 02/06/19 02/06/19 03:21 03:31 03:41 Temperature Pulse Rate 105 H 99 H 98 H Pulse Rate [ Anterior Bilateral Throughout] Pulse Rate [ From Monitor] Respiratory 23 23 23 Rate Respiratory Rate [Anterior Bilateral Throughout] Blood Pressure 142/87 142/87 142/87 O2 Sat by Pulse 96 96 96 Oximetry 02/06/19 02/06/19 02/06/19 03:51 03:59 04:00 Temperature Pulse Rate 96 H 96 H 96 H Pulse Rate [ Anterior Bilateral Throughout] Pulse Rate [ From Monitor] Respiratory 21 23 Rate Respiratory Rate [Anterior Bilateral Throughout] Blood Pressure 142/87 142/87 138/80 O2 Sat by Pulse 95 95 97 Oximetry 02/06/19 02/06/19 02/06/19 04:11 04:21 04:31 Temperature Pulse Rate 93 H 92 H 95 H Pulse Rate [ Anterior Bilateral Throughout] Pulse Rate [ From Monitor] Respiratory 19 22 23 Rate Respiratory Rate [Anterior Bilateral Throughout] Blood Pressure 138/80 138/80 138/80 O2 Sat by Pulse 96 96 97 Oximetry 02/06/19 02/06/19 02/06/19 04:41 04:51 05:01 Temperature Pulse Rate 97 H 95 H 98 H Pulse Rate [ Anterior Bilateral Throughout] Pulse Rate [ From Monitor] Respiratory 21 19 22 Rate Respiratory Rate [Anterior Bilateral Throughout] Blood Pressure 138/80 138/80 145/86 O2 Sat by Pulse 96 96 97 Oximetry 02/06/19 02/06/19 02/06/19 05:11 05:21 05:31 Temperature Pulse Rate 115 H 98 H 100 H Pulse Rate [ Anterior Bilateral Throughout] Pulse Rate [ From Monitor] Respiratory 23 17 21 Rate Respiratory Rate [Anterior Bilateral Throughout] Blood Pressure 145/86 145/86 145/86 O2 Sat by Pulse 96 96 96 Oximetry 02/06/19 02/06/19 02/06/19 05:41 05:51 06:01 Temperature Pulse Rate 101 H 98 H 122 H Pulse Rate [ Anterior Bilateral Throughout] Pulse Rate [ From Monitor] Respiratory 18 20 22 Rate Respiratory Rate [Anterior Bilateral Throughout] Blood Pressure 145/86 145/86 137/86 O2 Sat by Pulse 95 95 97 Oximetry 02/06/19 02/06/19 02/06/19 06:11 06:21 06:31 Temperature Pulse Rate 103 H 97 H 98 H Pulse Rate [ Anterior Bilateral Throughout] Pulse Rate [ From Monitor] Respiratory 20 22 22 Rate Respiratory Rate [Anterior Bilateral Throughout] Blood Pressure 137/86 137/86 137/86 O2 Sat by Pulse 96 97 96 Oximetry 02/06/19 02/06/19 02/06/19 06:41 06:51 07:00 Temperature Pulse Rate 97 H 104 H 103 H Pulse Rate [ Anterior Bilateral Throughout] Pulse Rate [ From Monitor] Respiratory 16 23 25 H Rate Respiratory Rate [Anterior Bilateral Throughout] Blood Pressure 137/86 137/86 134/83 O2 Sat by Pulse 97 97 97 Oximetry 02/06/19 02/06/19 02/06/19 07:11 07:21 07:31 Temperature Pulse Rate 98 H 122 H 105 H Pulse Rate [ Anterior Bilateral Throughout] Pulse Rate [ From Monitor] Respiratory 21 18 21 Rate Respiratory Rate [Anterior Bilateral Throughout] Blood Pressure 134/83 134/83 134/83 O2 Sat by Pulse 96 96 97 Oximetry 02/06/19 02/06/19 02/06/19 07:41 07:51 08:00 Temperature Pulse Rate 114 H 99 H 100 H Pulse Rate [ Anterior Bilateral Throughout] Pulse Rate [ 104 H From Monitor] Respiratory 20 22 21 Rate Respiratory Rate [Anterior Bilateral Throughout] Blood Pressure 134/83 134/83 138/90 O2 Sat by Pulse 97 97 98 Oximetry 02/06/19 02/06/19 02/06/19 08:05 08:08 08:11 Temperature Pulse Rate 129 H 128 H 112 H Pulse Rate [ Anterior Bilateral Throughout] Pulse Rate [ From Monitor] Respiratory 30 H 33 H Rate Respiratory Rate [Anterior Bilateral Throughout] Blood Pressure 138/90 138/90 138/90 O2 Sat by Pulse 100 97 96 Oximetry 02/06/19 02/06/19 02/06/19 08:17 08:21 08:31 Temperature 98.3 F Pulse Rate 106 H 102 H Pulse Rate [ Anterior Bilateral Throughout] Pulse Rate [ From Monitor] Respiratory 31 H 23 Rate Respiratory Rate [Anterior Bilateral Throughout] Blood Pressure 138/90 138/90 O2 Sat by Pulse 94 95 Oximetry 02/06/19 02/06/19 02/06/19 08:41 08:51 09:00 Temperature Pulse Rate 96 H 99 H 107 H Pulse Rate [ Anterior Bilateral Throughout] Pulse Rate [ From Monitor] Respiratory 21 23 22 Rate Respiratory Rate [Anterior Bilateral Throughout] Blood Pressure 138/90 138/90 150/78 O2 Sat by Pulse 95 96 96 Oximetry 02/06/19 02/06/19 02/06/19 09:11 09:21 09:31 Temperature Pulse Rate 106 H 152 H 103 H Pulse Rate [ Anterior Bilateral Throughout] Pulse Rate [ From Monitor] Respiratory 21 24 21 Rate Respiratory Rate [Anterior Bilateral Throughout] Blood Pressure 150/78 148/82 148/82 O2 Sat by Pulse 95 96 96 Oximetry 02/06/19 02/06/19 02/06/19 09:41 09:51 10:00 Temperature Pulse Rate 153 H 99 H 105 H Pulse Rate [ Anterior Bilateral Throughout] Pulse Rate [ From Monitor] Respiratory 24 22 23 Rate Respiratory Rate [Anterior Bilateral Throughout] Blood Pressure 148/82 148/82 154/92 O2 Sat by Pulse 97 97 97 Oximetry 02/06/19 02/06/19 02/06/19 10:11 10:21 10:31 Temperature Pulse Rate 121 H 98 H 129 H Pulse Rate [ Anterior Bilateral Throughout] Pulse Rate [ From Monitor] Respiratory 24 22 23 Rate Respiratory Rate [Anterior Bilateral Throughout] Blood Pressure 154/92 154/92 154/92 O2 Sat by Pulse 97 97 97 Oximetry 02/06/19 02/06/19 02/06/19 10:41 10:51 11:00 Temperature Pulse Rate 130 H 101 H 103 H Pulse Rate [ Anterior Bilateral Throughout] Pulse Rate [ From Monitor] Respiratory 23 23 24 Rate Respiratory Rate [Anterior Bilateral Throughout] Blood Pressure 154/92 154/92 155/88 O2 Sat by Pulse 96 97 97 Oximetry 02/06/19 02/06/19 02/06/19 11:11 11:21 11:31 Temperature Pulse Rate 106 H 101 H 100 H Pulse Rate [ Anterior Bilateral Throughout] Pulse Rate [ From Monitor] Respiratory 23 24 22 Rate Respiratory Rate [Anterior Bilateral Throughout] Blood Pressure 155/88 155/88 155/88 O2 Sat by Pulse 97 97 97 Oximetry Constitutional: comatose, other (orally intubated on mechanical ventilator.) Eyes: non-icteric ENT: oropharynx moist Neck: supple Effort: normal Ascultation: Bilateral: other (coarse BS bilaterally improved) Cardiovascular: other (tachy, RR; no mrg) Gastrointestinal: normoactive bowel sounds, soft, non-tender, non-distended Integumentary: normal Extremities: no cyanosis, no edema, pink and warm Neurologic: unable to assess (due to sedation) Psychiatric: other (unable to assess) CBC and BMP: 02/05/19 20:03 02/05/19 14:36 ABG, PT/INR, D-dimer: ABG POC ABG pH 7.443 (7.35-7.45) 02/03/19 05:55 ABG pH 7.440 pH Units (7.350-7.450) 02/06/19 Unknown POC ABG pCO2 36.6 (35-45) 02/03/19 05:55 ABG pCO2 37.8 mm Hg 02/06/19 Unknown POC ABG pO2 117 (80-105) H 02/03/19 05:55 ABG pO2 82.6 mm Hg (80.0-90.0) 02/06/19 Unknown POC ABG HCO3 25.0 (22-26 mml/L) 02/03/19 05:55 POC ABG Total CO2 26 (23-27mmol/L) 02/03/19 05:55 POC ABG O2 Sat 99 02/03/19 05:55 ABG O2 Saturation 97.0 % (95.0-99.0) 02/06/19 Unknown PT/INR, D-dimer PT 16.3 Sec. (12.2-14.9) H 02/06/19 07:35 INR 1.35 (0.87-1.13) H 02/06/19 07:35 Abnormal lab findings: Abnormal Labs 02/01/19 02/01/19 02/01/19 07:16 07:16 07:16 WBC 17.7 H RBC Hgb Hct RDW 16.9 H Plt Count 62 L Seg Neuts % (Manual) 95.0 H Lymphocytes % (Manual) 0 L Seg Neutrophils # Man 16.8 H Lymphocytes # (Manual) 0.0 L PT 15.0 H INR 1.21 H APTT Thrombin Time 20.0 H POC ABG pH ABG pH POC ABG pO2 ABG HCO3 ABG Base Excess ABG Hemoglobin Oxyhemoglobin Sodium 135 L Potassium Chloride 97.7 L Carbon Dioxide 19 L BUN 51 H Creatinine 4.5 H Glucose 112 H POC Glucose Lactic Acid Calcium Iron TIBC Direct Bilirubin AST Troponin T 0.181 H* C-Reactive Protein Total Protein Albumin LDL Cholesterol Direct 34 L HDL Cholesterol 20 L Vitamin B12 Folate TSH Urine WBC (Auto) Complement C3 Complement C4 02/01/19 02/01/19 02/01/19 07:29 07:29 07:43 WBC RBC Hgb Hct RDW Plt Count Seg Neuts % (Manual) Lymphocytes % (Manual) Seg Neutrophils # Man Lymphocytes # (Manual) PT INR APTT Thrombin Time POC ABG pH ABG pH POC ABG pO2 ABG HCO3 ABG Base Excess ABG Hemoglobin Oxyhemoglobin Sodium Potassium Chloride Carbon Dioxide BUN Creatinine Glucose POC Glucose Lactic Acid 4.80 H* Calcium Iron TIBC Direct Bilirubin 0.7 H AST 42 H Troponin T C-Reactive Protein Total Protein 8.9 H Albumin 2.3 L LDL Cholesterol Direct HDL Cholesterol Vitamin B12 Folate TSH 8.470 H Urine WBC (Auto) Complement C3 Complement C4 02/01/19 02/01/19 02/01/19 09:45 11:32 13:50 WBC RBC Hgb Hct RDW Plt Count Seg Neuts % (Manual) Lymphocytes % (Manual) Seg Neutrophils # Man Lymphocytes # (Manual) PT INR APTT Thrombin Time POC ABG pH 7.289 L ABG pH POC ABG pO2 355 H ABG HCO3 ABG Base Excess ABG Hemoglobin Oxyhemoglobin Sodium Potassium Chloride Carbon Dioxide BUN Creatinine Glucose POC Glucose Lactic Acid 4.10 H* Calcium Iron TIBC Direct Bilirubin AST Troponin T C-Reactive Protein Total Protein Albumin LDL Cholesterol Direct HDL Cholesterol Vitamin B12 Folate TSH Urine WBC (Auto) 16.0 H Complement C3 Complement C4 02/01/19 02/01/19 02/01/19 15:15 16:20 16:51 WBC RBC Hgb Hct RDW Plt Count Seg Neuts % (Manual) Lymphocytes % (Manual) Seg Neutrophils # Man Lymphocytes # (Manual) PT INR APTT Thrombin Time POC ABG pH ABG pH POC ABG pO2 ABG HCO3 ABG Base Excess ABG Hemoglobin Oxyhemoglobin Sodium Potassium Chloride Carbon Dioxide BUN Creatinine Glucose POC Glucose 115 H Lactic Acid 4.50 H* Calcium Iron TIBC Direct Bilirubin AST Troponin T C-Reactive Protein Total Protein Albumin LDL Cholesterol Direct HDL Cholesterol Vitamin B12 Folate TSH Urine WBC (Auto) Complement C3 36 L Complement C4 02/01/19 02/01/19 02/01/19 16:51 17:03 17:04 WBC RBC Hgb Hct RDW Plt Count Seg Neuts % (Manual) Lymphocytes % (Manual) Seg Neutrophils # Man Lymphocytes # (Manual) PT INR APTT Thrombin Time POC ABG pH ABG pH POC ABG pO2 ABG HCO3 ABG Base Excess ABG Hemoglobin Oxyhemoglobin Sodium Potassium Chloride Carbon Dioxide BUN Creatinine Glucose POC Glucose Lactic Acid 2.80 H* Calcium Iron TIBC Direct Bilirubin AST Troponin T C-Reactive Protein 32.30 H Total Protein Albumin LDL Cholesterol Direct HDL Cholesterol Vitamin B12 Folate TSH Urine WBC (Auto) Complement C3 Complement C4 12 L 02/01/19 02/02/19 02/02/19 19:28 05:16 05:53 WBC 14.3 H RBC Hgb Hct RDW 16.9 H Plt Count 43 L Seg Neuts % (Manual) 93.0 H Lymphocytes % (Manual) 2.0 L Seg Neutrophils # Man 13.3 H Lymphocytes # (Manual) 0.3 L PT INR APTT Thrombin Time POC ABG pH ABG pH POC ABG pO2 148 H ABG HCO3 ABG Base Excess ABG Hemoglobin Oxyhemoglobin Sodium Potassium Chloride 107.1 H Carbon Dioxide 18 L BUN 52 H Creatinine 3.1 H Glucose 120 H POC Glucose Lactic Acid Calcium 7.4 L Iron TIBC Direct Bilirubin AST Troponin T C-Reactive Protein Total Protein Albumin LDL Cholesterol Direct HDL Cholesterol Vitamin B12 Folate TSH Urine WBC (Auto) Complement C3 Complement C4 08/16/19 08/17/19 08/17/19 05:53 03:30 03:30 WBC RBC 5.16 H Hgb 14.9 H Hct 46.2 H D RDW 17.0 H Plt Count 18 L* Seg Neuts % (Manual) Lymphocytes % (Manual) Seg Neutrophils # Man Lymphocytes # (Manual) PT INR APTT Thrombin Time POC ABG pH ABG pH POC ABG pO2 ABG HCO3 ABG Base Excess ABG Hemoglobin Oxyhemoglobin Sodium Potassium 5.1 H Chloride Carbon Dioxide 21 L BUN 57 H 65 H Creatinine 3.3 H 2.7 H Glucose 147 H 117 H POC Glucose Lactic Acid Calcium 7.5 L 7.2 L Iron TIBC Direct Bilirubin AST 51 H Troponin T C-Reactive Protein Total Protein Albumin 1.6 L LDL Cholesterol Direct HDL Cholesterol Vitamin B12 Folate TSH Urine WBC (Auto) Complement C3 Complement C4 02/03/19 02/03/19 02/03/19 05:55 14:42 14:42 WBC RBC Hgb Hct RDW Plt Count Seg Neuts % (Manual) Lymphocytes % (Manual) Seg Neutrophils # Man Lymphocytes # (Manual) PT INR APTT Thrombin Time POC ABG pH ABG pH POC ABG pO2 117 H ABG HCO3 ABG Base Excess ABG Hemoglobin Oxyhemoglobin Sodium Potassium Chloride Carbon Dioxide BUN Creatinine Glucose POC Glucose Lactic Acid Calcium Iron 11 L TIBC 88 L Direct Bilirubin AST Troponin T C-Reactive Protein Total Protein Albumin LDL Cholesterol Direct HDL Cholesterol Vitamin B12 1468 H Folate TSH Urine WBC (Auto) Complement C3 Complement C4 02/03/19 02/03/19 02/03/19 14:42 14:42 14:42 WBC RBC 3.17 L 3.22 L Hgb 9.4 L D 9.5 L Hct 28.3 L D 28.5 L RDW 16.9 H 16.4 H Plt Count 18 L* 18 L* Seg Neuts % (Manual) Lymphocytes % (Manual) Seg Neutrophils # Man Lymphocytes # (Manual) PT INR APTT Thrombin Time POC ABG pH ABG pH POC ABG pO2 ABG HCO3 ABG Base Excess ABG Hemoglobin Oxyhemoglobin Sodium Potassium Chloride Carbon Dioxide BUN Creatinine Glucose POC Glucose Lactic Acid Calcium Iron TIBC Direct Bilirubin AST Troponin T C-Reactive Protein Total Protein Albumin LDL Cholesterol Direct HDL Cholesterol Vitamin B12 Folate 5.18 L TSH Urine WBC (Auto) Complement C3 Complement C4 02/03/19 02/04/19 02/04/19 14:42 03:35 05:02 WBC RBC Hgb Hct RDW 16.5 H Plt Count 20 L Seg Neuts % (Manual) 94.0 H Lymphocytes % (Manual) 2.0 L Seg Neutrophils # Man 9.2 H Lymphocytes # (Manual) 0.2 L PT 15.8 H INR 1.29 H APTT 38.2 H Thrombin Time POC ABG pH ABG pH 7.470 H POC ABG pO2 ABG HCO3 28.4 H ABG Base Excess 4.5 H ABG Hemoglobin 10.1 L Oxyhemoglobin 94.7 L Sodium Potassium Chloride Carbon Dioxide BUN Creatinine Glucose POC Glucose Lactic Acid Calcium Iron TIBC Direct Bilirubin AST Troponin T C-Reactive Protein Total Protein Albumin LDL Cholesterol Direct HDL Cholesterol Vitamin B12 Folate TSH Urine WBC (Auto) Complement C3 Complement C4 02/04/19 02/05/19 02/05/19 05:02 03:50 13:02 WBC 11.7 H RBC 3.48 L Hgb 10.0 L Hct RDW 16.3 H Plt Count 50 L D Seg Neuts % (Manual) 95.0 H Lymphocytes % (Manual) 0 L Seg Neutrophils # Man 11.1 H Lymphocytes # (Manual) 0.0 L PT INR APTT Thrombin Time POC ABG pH ABG pH 7.485 H POC ABG pO2 ABG HCO3 27.5 H ABG Base Excess 3.9 H ABG Hemoglobin 9.1 L Oxyhemoglobin 94.8 L Sodium Potassium Chloride Carbon Dioxide BUN 66 H Creatinine 1.7 H Glucose 127 H POC Glucose Lactic Acid Calcium 7.6 L Iron TIBC Direct Bilirubin AST Troponin T C-Reactive Protein Total Protein Albumin LDL Cholesterol Direct HDL Cholesterol Vitamin B12 Folate TSH Urine WBC (Auto) Complement C3 Complement C4 02/05/19 02/05/19 02/06/19 14:36 20:03 05:39 WBC RBC 3.24 L Hgb 9.4 L Hct 29.2 L RDW 16.3 H Plt Count 71 L Seg Neuts % (Manual) 95.0 H Lymphocytes % (Manual) 2.0 L Seg Neutrophils # Man 10.2 H Lymphocytes # (Manual) 0.2 L PT INR APTT Thrombin Time POC ABG pH ABG pH POC ABG pO2 ABG HCO3 ABG Base Excess ABG Hemoglobin Oxyhemoglobin Sodium Potassium Chloride Carbon Dioxide BUN 67 H Creatinine 1.5 H Glucose POC Glucose 107 H Lactic Acid Calcium 7.7 L Iron TIBC Direct Bilirubin AST Troponin T C-Reactive Protein Total Protein Albumin LDL Cholesterol Direct HDL Cholesterol Vitamin B12 Folate TSH Urine WBC (Auto) Complement C3 Complement C4 02/06/19 02/06/19 07:35 Unknown WBC RBC Hgb Hct RDW Plt Count Seg Neuts % (Manual) Lymphocytes % (Manual) Seg Neutrophils # Man Lymphocytes # (Manual) PT 16.3 H INR 1.35 H APTT Thrombin Time POC ABG pH ABG pH POC ABG pO2 ABG HCO3 ABG Base Excess ABG Hemoglobin 5.0 L Oxyhemoglobin 94.9 L Sodium Potassium Chloride Carbon Dioxide BUN Creatinine Glucose POC Glucose Lactic Acid Calcium Iron TIBC Direct Bilirubin AST Troponin T C-Reactive Protein Total Protein Albumin LDL Cholesterol Direct HDL Cholesterol Vitamin B12 Folate TSH Urine WBC (Auto) Complement C3 Complement C4 Chest x-ray: image reviewed (increasing left lower lobe consolidation/atelectasis.)
--- NOTE | 2019-02-06 12:51 | Progress Note ---
Assessment and Plan Assessment and plan: 53 year old woman who was brought in by her family for unsteady gait, fatigue, and withdrawn behavior. I finally noticed difficult to it fine motor skills throughout that night she was having difficulty expressing herself. she was at a restaurant family I will continue to point to the menu. She became more disoriented and less responsive prompting family to bring her to the emergency room Sepsis Strep pneumoniae bacteremia Right neck cellulitis Trach aspirates positive for strep Suspect meningitis, case discuss with infectious disease, continue empiric antibiotics to cover for meningitis, throat infection, Obtain LP and TERRENCE. should be done today since platelets are improved after transfusion Thrombocytopenia likely due to sepsis or autoimmune phenomenon, hematology input appreciated, hiv-negative, fibrinogen level is not low, PT PTT is normal. Status post platelet transfusion, improved Acute kidney injury Due to ATN Renal function improving IV fluids Nephrology input appreciated History of lupus? families is unclear on this medical history, but know that she has some form of autoimmune disease Compliments are reduced, CHESTER is pending. Started on steroids, should be tapered based on clinical presentation, still suspects but they may be an elements of [employer] vasculitis Acute metabolic encephalopathy Likely due to sepsis, obtain eeg, neurology appreciated MRI and MRA head pending. But at this time cannot be done as patient is on continuous fluids and on vent. Discuss with the director of instrumental music who states that it can be done on ventilator and continuous IV infusion, she will facilitate it. If MRI and able to be done, will consider transferring his patients to a higher level facility such as [facility] Acute respiratory failure on MV > 96 hours cont vent per pulmonology Type 2 CT - cardiology input appreciated, rx the underlying cause Hypothyroidism TSH elevated, synthroid dose increased -repeat TFTs in 4-6 wks The high probability of a clinically significant, sudden or life threatening deterioration of the [CV, Neurology, renal] system(s) required my full and direct attention, intervention and personal management. The aggregate critical care time was [45] minutes. This time is in addition to time spent performing reported procedures but includes the following: [x] Data Review and interpretation [x] Patient assessment and monitoring of vital signs [x] Documentation [x] Medication orders and management History Interval history: She remains unresponsive no fever, no vomiting, no agitation -no seizures or vomiting Hospitalist Physical - Physical exam Narrative exam: General.: Appears ill HEENT: Moist mucous membranes, extraocular muscles intact, no lymphadenopathy Neck: supple, there is some neck swelling Cardiac: S1-S2 heard Lungs: clear to auscultation bilaterally Abdomen: soft , nontender, nondistended, bowel sounds positive, Extremities: no edema clubbing or cyanosis Skin: no rash or lesions Neurologic: Unresponsive Psych: Does not obey commands - Constitutional Vitals: Temp Pulse Resp BP Pulse Ox 98.5 F 136 H 26 H 155/88 99 02/06/19 12:38 02/06/19 12:05 02/06/19 12:05 02/06/19 12:05 02/06/19 12:05 Results - Labs CBC & Chem 7: 02/24/19 10:52 02/24/19 10:52 Labs: Laboratory Last Values WBC 10.7 K/mm3 (4.5-11.0) 02/05/19 20:03 RBC 3.24 M/mm3 (3.65-5.03) L 02/05/19 20:03 Hgb 9.4 gm/dl (10.1-14.3) L 02/05/19 20:03 Hct 29.2 % (30.3-42.9) L 02/05/19 20:03 MCV 90 fl (79-97) 02/05/19 20:03 MCH 29 pg (28-32) 02/05/19 20:03 MCHC 32 % (30-34) 02/05/19 20:03 RDW 16.3 % (13.2-15.2) H 02/05/19 20:03 Plt Count 71 K/mm3 (140-440) L 02/05/19 20:03 Lymph % (Auto) Television Agent 02/05/19 13:02 [place] % (Auto) Television Agent 02/05/19 13:02 Eos % (Auto) Television Agent 02/05/19 13:02 Baso % (Auto) Television Agent 02/05/19 13:02 Lymph # Television Agent 02/05/19 13:02 [place] # Television Agent 02/05/19 13:02 Eos # Television Agent 02/05/19 13:02 Baso # Television Agent 02/05/19 13:02 Add Manual Diff Complete 02/05/19 20:03 Total Counted 100 02/05/19 20:03 Seg Neutrophils % Television Agent 02/05/19 13:02 Seg Neuts % (Manual) 95.0 % (40.0-70.0) H 02/05/19 20:03 0 % 02/05/19 20:03 2.0 % (13.4-35.0) L 02/05/19 20:03 Reactive Lymphs % (Man) 0 % 02/05/19 20:03 3.0 % (0.0-7.3) 02/05/19 20:03 0 % (0.0-4.3) 02/05/19 20:03 0 % (0.0-1.8) 02/05/19 20:03 0 % 02/05/19 20:03 0 % 02/05/19 20:03 0 % 02/05/19 20:03 0 % 02/05/19 20:03 Nucleated RBC % Not Reportable 02/05/19 20:03 Seg Neutrophils # Television Agent 02/05/19 13:02 Seg Neutrophils # Man 10.2 K/mm3 (1.8-7.7) H 02/05/19 20:03 Band Neutrophils # 0.0 K/mm3 02/05/19 20:03 0.2 K/mm3 (1.2-5.4) L 02/05/19 20:03 Abs React Lymphs (Man) 0.0 K/mm3 02/05/19 20:03 0.3 K/mm3 (0.0-0.8) 02/05/19 20:03 0.0 K/mm3 (0.0-0.4) 02/05/19 20:03 0.0 K/mm3 (0.0-0.1) 02/05/19 20:03 0.0 K/mm3 02/05/19 20:03 0.0 K/mm3 02/05/19 20:03 0.0 K/mm3 02/05/19 20:03 Blast Cells # 0.0 K/mm3 02/05/19 20:03 WBC Morphology Not Reportable 02/05/19 20:03 Hypersegmented Neuts Not Reportable 02/05/19 20:03 Hyposegmented Neuts Not Reportable 02/05/19 20:03 Hypogranular Neuts Not Reportable 02/05/19 20:03 Cancelled 02/01/19 07:16 Not Reportable 02/05/19 20:03 Not Reportable 02/05/19 20:03 Not Reportable 02/05/19 20:03 Not Reportable 02/05/19 20:03 Not Reportable 02/05/19 20:03 Not Reportable 02/05/19 20:03 Appears decreased 02/05/19 20:03 Not Reportable 02/05/19 20:03 Plt Clumps, EDTA Not Reportable 02/05/19 20:03 1+ 02/05/19 20:03 Not Reportable 02/05/19 20:03 Not Reportable 02/05/19 20:03 Plt Morphology Comment Not Reportable 02/05/19 20:03 RBC Morphology Not Reportable 02/05/19 20:03 Dimorphic RBCs Not Reportable 02/05/19 20:03 Not Reportable 02/05/19 20:03 Not Reportable 02/05/19 20:03 1+ 02/05/19 20:03 Cancelled 02/01/19 07:16 1+ 02/05/19 20:03 Not Reportable 02/05/19 20:03 Not Reportable 02/05/19 20:03 Not Reportable 02/05/19 20:03 Not Reportable 02/05/19 20:03 Not Reportable 02/05/19 20:03 Not Reportable 02/05/19 20:03 Not Reportable 02/05/19 20:03 Not Reportable 02/05/19 20:03 Cancelled 02/01/19 07:16 Not Reportable 02/05/19 20:03 Not Reportable 02/05/19 20:03 Not Reportable 02/05/19 20:03 Not Reportable 02/05/19 20:03 Not Reportable 02/05/19 20:03 Not Reportable 02/05/19 20:03 Not Reportable 02/05/19 20:03 Acanthocytes (Spur) Not Reportable 02/05/19 20:03 Rouleaux Not Reportable 02/05/19 20:03 Not Reportable 02/05/19 20:03 Not Reportable 02/05/19 20:03 Not Reportable 02/05/19 20:03 ESR 76 mm/Hr (0-20) 02/01/19 16:51 Not Reportable 02/05/19 20:03 Hem Pathologist Commnt No 02/05/19 20:03 PT 16.3 Sec. (12.2-14.9) H 02/06/19 07:35 INR 1.35 (0.87-1.13) H 02/06/19 07:35 APTT 33.1 Sec. (24.2-36.6) 02/06/19 07:35 20.0 Sec. (15.1-19.6) H 02/01/19 07:16 479 mg/dl (211-480) 02/03/19 14:42 POC ABG pH 7.443 (7.35-7.45) 02/03/19 05:55 ABG pH 7.440 pH Units (7.350-7.450) 02/06/19 Unknown POC ABG pCO2 36.6 (35-45) 02/03/19 05:55 ABG pCO2 37.8 mm Hg 02/06/19 Unknown POC ABG pO2 117 (80-105) H 02/03/19 05:55 ABG pO2 82.6 mm Hg (80.0-90.0) 02/06/19 Unknown POC ABG HCO3 25.0 (22-26 mml/L) 02/03/19 05:55 ABG HCO3 25.1 mmol/L (20.0-26.0) 02/06/19 Unknown POC ABG Total CO2 26 (23-27mmol/L) 02/03/19 05:55 POC ABG O2 Sat 99 02/03/19 05:55 ABG O2 Saturation 97.0 % (95.0-99.0) 02/06/19 Unknown ABG O2 Content 6.9 (0.0-44) 02/06/19 Unknown POC ABG Base Excess 1 ((-2) - (+3)mmol/L) 02/03/19 05:55 ABG Base Excess 0.8 mmol/L (-2.0-3.0) 02/06/19 Unknown ABG Hemoglobin 5.0 gm/dl (12.0-16.0) L 02/06/19 Unknown ABG Carboxyhemoglobin 1.7 % (0.0-5.0) 02/06/19 Unknown ABG Methemoglobin 0.5 % (0.0-1.5) 02/06/19 Unknown 94.9 % (95.0-99.0) L 02/06/19 Unknown 25 % 02/06/19 Unknown Sodium 144 mmol/L (137-145) 02/05/19 14:36 Potassium 4.0 mmol/L (3.6-5.0) 02/05/19 14:36 Chloride 105.9 mmol/L (98-107) 02/05/19 14:36 Carbon Dioxide 24 mmol/L (22-30) 02/05/19 14:36 18 mmol/L 02/05/19 14:36 BUN 67 mg/dL (7-17) H 02/05/19 14:36 1.5 mg/dL (0.7-1.2) H 02/05/19 14:36 Estimated GFR 44 ml/min 02/05/19 14:36 45 % 02/05/19 14:36 Glucose 66 mg/dL (65-100) 02/05/19 14:36 POC Glucose 107 (70-105) H 02/06/19 05:39 Lactic Acid 1.40 mmol/L (0.7-2.0) 02/01/19 20:57 Calcium 7.7 mg/dL (8.4-10.2) L 02/05/19 14:36 Iron 11 ug/dL (37-170) L 02/03/19 14:42 TIBC 88 mcg/dL (250-450) L 02/03/19 14:42 332.9 ng/mL (13.0-400.0) 02/03/19 14:42 0.90 mg/dL (0.1-1.2) 02/02/19 05:53 0.7 mg/dL (0-0.2) H 02/01/19 07:29 0.5 mg/dL 02/01/19 07:29 AST 51 units/L (5-40) H 02/02/19 05:53 ALT 16 units/L (7-56) 02/02/19 05:53 76 units/L (35-129) 02/02/19 05:53 0.181 ng/mL (0.00-0.029) H* 02/01/19 07:16 32.30 mg/dL (0.00-1.30) H 02/01/19 17:04 8.0 g/dL (6.3-8.2) 02/02/19 05:53 1.6 g/dL (3.9-5) L 02/02/19 05:53 0.3 % 02/02/19 05:53 Triglycerides 95 mg/dL (2-149) 02/01/19 07:16 Cholesterol 75 mg/dL (50-199) 02/01/19 07:16 34 mg/dL (50-130) L 02/01/19 07:16 20 mg/dL (40-59) L 02/01/19 07:16 3.75 % 02/01/19 07:16 Vitamin B12 1468 pg/mL (211-911) H 02/03/19 14:42 5.18 ng/mL (7.3-26.0) L 02/03/19 14:42 TSH 8.470 mlU/mL (0.270-4.200) H 02/01/19 07:43 Free T4 1.08 ng/dL (0.76-1.46) 02/01/19 07:43 Sara (Yellow) 02/01/19 09:45 Cloudy (Clear) 02/01/19 09:45 5.0 (5.0-7.0) 02/01/19 09:45 Ur Specific [place] 1.019 (1.003-1.030) 02/01/19 09:45 >500 mg/dL (Negative) 02/01/19 09:45 Neg mg/dL (Negative) 02/01/19 09:45 Neg mg/dL (Negative) 02/01/19 09:45 Mod (Negative) 02/01/19 09:45 Neg (Negative) 02/01/19 09:45 Neg (Negative) 02/01/19 09:45 < 2.0 mg/dL (<2.0) 02/01/19 09:45 Ur Leukocyte Esterase Neg (Negative) 02/01/19 09:45 16.0 /HPF (0.0-6.0) H 02/01/19 09:45 77.0 /HPF (0.0-6.0) 02/01/19 09:45 U Epithel Cells (Auto) 2.0 /HPF (0-13.0) 02/01/19 09:45 Amorphous Crystals 1+ 02/01/19 09:45 Few /HPF 08/15/19 09:45 Random Vancomycin 9.8 ug/mL (0-40.0) 02/03/19 03:30 36 mg/dL (83-193) L 02/01/19 16:51 12 mg/dL (15-57) L 02/01/19 16:51 RPR Nonreactive (Nonreactive) 02/02/19 15:45 Hepatitis A IgM Ab Non-reactive (NonReactive) 02/02/19 19:29 Hep Bs Antigen Non-reactive (Negative) 02/02/19 19:29 Hep B Core IgM Ab Non-reactive (NonReactive) 02/02/19 19:29 Non-reactive (NonReactive) 02/02/19 19:29 HIV 1&2 Antibody Rapid Non react (Non React) 02/02/19 15:46 Non react (Non React) 02/02/19 15:46 Blood Type B POSITIVE 02/05/19 13:02 Active Medications - Current Medications Current Medications: Generic Name Dose Route Start Last Admin Trade Name Freq PRN Reason Stop Dose Admin Acetaminophen 650 mg 02/01/19 10:47 02/05/19 16:46 Tylenol PO 650 mg Q4H PRN Administration Pain MILD(1-3)/Fever >100.5/VALENZUELA Albuterol 2.5 mg 02/01/19 10:47 Proventil IH Q4HRT PRN Shortness Of Breath Albuterol/Ipratropium 1 ampul 02/01/19 12:00 02/06/19 08:10 Duoneb *Not For Prn Use* IH Not Given Q6HRT AMOL Lipase/Protease/Amylase 1 each 02/05/19 11:04 Pancreemeka [place] 10,500 Unit FEEDTUBE PRN PRN For Clogged Feeding Tube Famotidine 20 mg 02/03/19 10:00 02/06/19 09:30 Pepcid IV 20 mg QDAY AMOL Administration Folic Acid 1 mg 02/06/19 10:00 02/06/19 09:30 Folvite PO 1 mg QDAY AMOL Administration Hydrophilic Ointment 1 applic 02/01/19 11:09 02/02/19 16:50 Vaseline Lip Therapy TP 1 applic Q2HR PRN Administration Dry Lips Midazolam HCl 100 mg/ Sodium 100 mls @ 2 mls/hr 02/01/19 12:00 02/03/19 07:40 Chloride IV 0 mg/hr TITR AMOL 0 mls/hr Titration Protocol 2 MG/HR Ceftriaxone Sodium 2 gm in 100 mls @ 200 mls/hr 02/05/19 13:00 02/06/19 10:00 Rocephin/Ns 2 Gm/100 Ml IV Infused Q12HR AMOL Infusion Protocol Methylprednisolone Sodium 250 mls @ 250 mls/hr 02/06/19 13:00 Succinate 1,000 mg/ Sodium IV Chloride Q24H AMOL Midazolam HCl 2 mg 02/01/19 11:09 02/01/19 11:42 Versed IV 2 mg Q10MIN PRN Administration Sedation Morphine Sulfate 2 mg 02/01/19 10:47 02/06/19 04:39 Morphine IV 2 mg Q4H PRN Administration Pain, Moderate (4-6) Multi-Ingred Cream/Lotion/Oil/Oint 1 applic 02/01/19 11:09 02/02/19 16:50 Artificial Tears Ophth Oint OU 1 applic Q4HR PRN Administration Dry Eye(s) Multivitamins 5 ml 02/06/19 10:00 02/06/19 09:30 Centrum Liq PO 5 ml QDAY AMOL Administration Ondansetron HCl 4 mg 02/01/19 10:47 Zofran IV Q8H PRN Nausea And Vomiting Simple Syrup 15 ml 02/05/19 11:04 Simple Syrup FEEDTUBE PRN PRN Hypoglycemia Simple Syrup 30 ml 02/05/19 11:04 Simple Syrup FEEDTUBE PRN PRN Hypoglycemia Sodium Bicarbonate 325 mg 02/05/19 11:04 Sodium Bicarbonate FEEDTUBE PRN PRN For Clogged Feeding Tube Sodium Chloride 10 ml 02/01/19 22:00 02/06/19 09:31 Sodium Chloride Flush Syringe 10 Ml IV 10 ml BID AMOL Administration Sodium Chloride 10 ml 02/01/19 10:47 Sodium Chloride Flush Syringe 10 Ml IV PRN PRN LINE FLUSH Nutrition/Malnutrition Assess - Dietary Evaluation Nutrition/Malnutrition Findings: Nutrition Notes Start: 02/02/19 15:11 Freq: Status: Active Protocol: Document 02/05/19 10:58 LP (Rec: 02/05/19 11:08 LP [id number]) Nutrition Notes Initial or Follow up Reassessment Current Diagnosis Acute Kidney Injury, Respiratory Failure Other Pertinent Diagnosis Hypothyroidism, Septic shock, Acute encephalopathy, UTI Current Diet NPO Labs/Tests Reviewed Pertinent Medications Reviewed Height 5 ft 5 in Weight 85.275 kg [place] Body Weight (kg) 56.81 BMI 31.2 Subjective/Other Information Consult for TF. Pt continues on vent. Burn Absent Trauma Absent Minimum of two criteria No #1 Nutrition Diagnosis Inadequate oral intake Diagnosis Progress(for reassessment Continues documentation) Is patient on ventilator? Yes Is Patient Ambulatory and/or Out of Bed No REE-([facility]-confined to bed) [phone] Calculation Used for Recommendations [facility] Additional Notes Protein Needs: 114g (2g/kg IBW ) Fluid Needs: 1 ml/kcal Nutrition Intervention Change Diet Order: TF Nutrition Support: Change to Nepro at 40ml/hr Flush with 170ml q4h Kcal 1,728 Protein (gm) 78 Fluid (mL) 697 Goal #1 Meet at least 80% of kcal and protein needs via TF Anticipated Discharge Needs: Unable to determine at this time Follow-Up By: 02/07/19 Additional Comments Follow for TF start/tolerance
--- NOTE | 2019-02-06 12:58 | Event Note ---
Date: 02/06/19 Pt is scheduled for TERRENCE tomorrow ~11AM with anesthesia. Signed consents are on pt's chart. NPO after MN. Sumeet PEÑA NP / DR. CHRISTIANSON
[2019-02-06] MEDS ORDERED: BENZOCAINE 20% TOP SPRAY 0.5 ML UNIT DOSE MM NR (13:00)
[2019-02-06] MEDS ORDERED: LIDOCAINE (1%) 10 MG/1 ML VIAL 20 ML MDV ONE (13:29)
[2019-02-06] MEDS: methylPREDNISolone Sod Suc 1,000 MG in SODIUM CHLORIDE 0.9% 250ML 250 ML IV SCH (14:00)
--- NOTE | 2019-02-06 14:13 | Progress Note ---
Assessment and Plan Cultures: 02/01/2019 blood culture: Strep pneumoniae in 4/4 bottles 02/01/2019 urine culture: no growth 02/01/2019 tracheal aspirate: Strep species 02/02/2019 blood culture: no growth 02/01/2019 C3: 36 (low) 02/01/2019 C4: 12 (low) HIV: non reactive RPR: non reactive Hepatitis panel: non reactive A/P: 53-year-old female with hypothyroidism, hypertension, ?autoimmune disease. Admitted with: 1) Severe sepsis with Strep pneumoniae bacteremia: Leukocytosis, thrombocytopenia, lactic acidosis. Source appears to be bilateral pneumonia. TTE showed some ?pulmonic valve vegetation. Awaiting TERRENCE. 2) Right neck cellulitis and induration v/s severe lymphadenopathy: CT neck was without contrast, hence limited eval of vasculature. Neck US revealed extensive R neck lymphadenopathy, no abscess. HIV, RPR negative. Bartonella serologies pending. 3) Bilateral pneumonia: sputum culture also growing Strep, likely Strep pneumoniae. 4) Acute renal failure: renally dose abx. Nephrology following. Creatinine improving. 5) ?Autoimmune disease: need more history. Unclear if she is on any kind of immunosuppression. C3, C4 came back low. F/u CHESTER, ANCA. 6) Thrombocytopenia: worse. Hematology following. Sepsis v/s autoimmune in etiology. 7) Acute encephalopathy: s/p lumbar puncture to eval for possibility of meningitis. May need MRI brain if CSF is clear. Recs: awaiting LP and TERRENCE continue IV Ceftriaxone 2 gm q12 hrs to cover for possibility of meningeal involvement f/u Bartonella serologies once creatinine improves further, may need CT chest, abdomen pelvis with IV contrast to evaluate for other lymphadenopathy Updated plan of care discussed with the patient's mother at bedside. Luis Lewis MD, FACP [facility], [place], [facility] M: [phone] O: [phone] F: [phone] Subjective Date of service: 02/06/19 Principal diagnosis: sepsis Interval history: No fever. Opens eyes, but doesn't follow commands. Remains on the vent. Not on sedation. Objective - Exam Narrative Exam: Physical Exam: Constitutional: opens eyes, doesn't follow commands, intubated Head, Ears, Nose: Normocephalic, atraumatic. External ears, nose normal Eyes: Conjunctivae/corneas clear. No icterus. No ptosis. Neck: R cervical lymphadenopathy, slightly improved Oral: intubated Cardiovascular: S1, S2 normal. Respiratory: AE clear bilaterally, no wheeze GI: Soft, non-tender; bowel sounds normal. No peritoneal signs Musculoskeletal: No pedal edema, no cyanosis. Skin: No rash or abscess Hem/Lymphatic: No palpable cervical or supraclavicular nodes. No lymphangitis Psych: no agitation Neurological: opens eyes, doesn't follow commands, on the vent - Constitutional Vitals: Vital Signs Temp Pulse Resp BP Pulse Ox 98.5 F 136 H 26 H 155/88 99 02/06/19 12:38 02/06/19 12:05 02/06/19 12:05 02/06/19 12:05 02/06/19 12:05 Temperature -Last 24 Hours Temperature 98.5 F Temperature 98.3 F Temperature 97.6 F Temperature 98.7 F Temperature 98.5 F Temperature 98.5 F Temperature 97.9 F Temperature 97.9 F - Labs CBC & Chem 7: 02/05/19 20:03 02/05/19 14:36 Labs: Abnormal lab results 02/05/19 02/05/19 02/05/19 Range/Units 13:02 14:36 20:03 RBC 3.24 L (3.65-5.03) M/mm3 Hgb 9.4 L (10.1-14.3) gm/dl Hct 29.2 L (30.3-42.9) % RDW 16.3 H (13.2-15.2) % Plt Count 71 L (140-440) K/mm3 Seg Neuts % (Manual) 95.0 H 95.0 H (40.0-70.0) % Lymphocytes % (Manual) 0 L 2.0 L (13.4-35.0) % Seg Neutrophils # Man 11.1 H 10.2 H (1.8-7.7) K/mm3 Lymphocytes # (Manual) 0.0 L 0.2 L (1.2-5.4) K/mm3 PT (12.2-14.9) Sec. INR (0.87-1.13) ABG Hemoglobin (12.0-16.0) gm/dl Oxyhemoglobin (95.0-99.0) % BUN 67 H (7-17) mg/dL Creatinine 1.5 H (0.7-1.2) mg/dL POC Glucose (70-105) Calcium 7.7 L (8.4-10.2) mg/dL 02/06/19 02/06/19 02/06/19 Range/Units 05:39 07:35 Unknown RBC (3.65-5.03) M/mm3 Hgb (10.1-14.3) gm/dl Hct (30.3-42.9) % RDW (13.2-15.2) % Plt Count (140-440) K/mm3 Seg Neuts % (Manual) (40.0-70.0) % Lymphocytes % (Manual) (13.4-35.0) % Seg Neutrophils # Man (1.8-7.7) K/mm3 Lymphocytes # (Manual) (1.2-5.4) K/mm3 PT 16.3 H (12.2-14.9) Sec. INR 1.35 H (0.87-1.13) ABG Hemoglobin 5.0 L (12.0-16.0) gm/dl Oxyhemoglobin 94.9 L (95.0-99.0) % BUN (7-17) mg/dL Creatinine (0.7-1.2) mg/dL POC Glucose 107 H (70-105) Calcium (8.4-10.2) mg/dL - Imaging and cardiology Chest x-ray: report reviewed, image reviewed (bilateral airspace disease)
--- NOTE | 2019-02-06 14:28 | Fluoroscopy Report ---
LUMBAR PUNCTURE INDICATION : Concern for meningitis, mental status changes PROCEDURE: The risks (including but not limited to bleeding, infection, and spinal headache) and nely efits were explained to the patient and informed consent was obtained. A time out procedure was perf ormed. The procedure site was prepped and draped in the usual sterile fashion and lidocaine was used for local anesthesia. Under fluoroscopic guidance, a 22-gauge spinal needle was advanced into the L3-4 interlaminar space. The opening pressure was 250 mm H2O which was calculated by adding the length of the needle (9 cm) to the height of the CSF column. 4 separate collection tubes were used to obtain 1, 1, 3, and 5 mL of C SF. Samples were sent to the lab per the ordering physician specifications for further evaluation. The patient tolerated the procedure well with no complications. IMPRESSION: Successful lumbar puncture as outlined above. Opening pressure was elevated measuring 250 mm H20. Fluoroscopic time: 0.3 Number of fluoroscopic images: 1 Signer Name: Bret Escobar Jr, MD Signed: 02/06/2019 2:24 PM Workstation Name: [id number]
[2019-02-06 14:34] LABS: Glucose,CSF 38 mg/dL
--- NOTE | 2019-02-06 14:56 | Procedure Note ---
Date of procedure: 02/06/19 Pre-op diagnosis: meningitis Post-op diagnosis: same Procedure: lumbar puncture with flouro guidance Anesthesia: local Surgeon: GABRIELA COLBERT Estimated blood loss: none Pathology: list (4 csf tubes) Specimen disposition: to lab Condition: stable Disposition: floor
[2019-02-06 15:06] LABS: Appearance,CSF Turbid
[2019-02-06 15:10] LABS: Red Blood Cell,CSF 30 /mm3 (0-0); White Blood Cell,CSF 1250 /mm3 (1-10)
--- NOTE | 2019-02-06 18:50 | Progress Note ---
Assessment and Plan Septic shock Meningitis REcommend: Await diff on WBC ct/cultures but likely strep in csf as well ID following and directing antibiotic management Agree with EEG MRI Brain also ordered, no bal bc of renal function Further recommendations once more test results are available Guarded prognosis Subjective Date of service: 02/06/19 Principal diagnosis: low plt Interval history: Follow up note, pt seen by neurology earlier in her stay. Pt off sedation now, remains intubated. Opens her eyes but does not track nor follow comands. LP today shows elevated WBC's, diff not back. Objective - Vital Sign Vital Signs - 12hr 02/06/19 02/06/19 02/06/19 06:51 07:00 07:11 Temperature Pulse Rate 104 H 103 H 98 H Pulse Rate [ Anterior Bilateral Throughout] Pulse Rate [ From Monitor] Respiratory 23 25 H 21 Rate Respiratory Rate [Anterior Bilateral Throughout] Blood Pressure 137/86 134/83 134/83 O2 Sat by Pulse 97 97 96 Oximetry 02/06/19 02/06/19 02/06/19 07:21 07:31 07:41 Temperature Pulse Rate 122 H 105 H 114 H Pulse Rate [ Anterior Bilateral Throughout] Pulse Rate [ From Monitor] Respiratory 18 21 20 Rate Respiratory Rate [Anterior Bilateral Throughout] Blood Pressure 134/83 134/83 134/83 O2 Sat by Pulse 96 97 97 Oximetry 02/06/19 02/06/19 02/06/19 07:51 08:00 08:05 Temperature Pulse Rate 99 H 100 H 129 H Pulse Rate [ Anterior Bilateral Throughout] Pulse Rate [ 104 H From Monitor] Respiratory 22 21 Rate Respiratory Rate [Anterior Bilateral Throughout] Blood Pressure 134/83 138/90 138/90 O2 Sat by Pulse 97 98 100 Oximetry 02/06/19 02/06/19 02/06/19 08:08 08:11 08:17 Temperature 98.3 F Pulse Rate 128 H 112 H Pulse Rate [ Anterior Bilateral Throughout] Pulse Rate [ From Monitor] Respiratory 30 H 33 H Rate Respiratory Rate [Anterior Bilateral Throughout] Blood Pressure 138/90 138/90 O2 Sat by Pulse 97 96 Oximetry 02/06/19 02/06/19 02/06/19 08:21 08:31 08:41 Temperature Pulse Rate 106 H 102 H 96 H Pulse Rate [ Anterior Bilateral Throughout] Pulse Rate [ From Monitor] Respiratory 31 H 23 21 Rate Respiratory Rate [Anterior Bilateral Throughout] Blood Pressure 138/90 138/90 138/90 O2 Sat by Pulse 94 95 95 Oximetry 02/06/19 02/06/19 02/06/19 08:51 09:00 09:11 Temperature Pulse Rate 99 H 107 H 106 H Pulse Rate [ Anterior Bilateral Throughout] Pulse Rate [ From Monitor] Respiratory 23 22 21 Rate Respiratory Rate [Anterior Bilateral Throughout] Blood Pressure 138/90 150/78 150/78 O2 Sat by Pulse 96 96 95 Oximetry 02/06/19 02/06/19 02/06/19 09:21 09:31 09:41 Temperature Pulse Rate 152 H 103 H 153 H Pulse Rate [ Anterior Bilateral Throughout] Pulse Rate [ From Monitor] Respiratory 24 21 24 Rate Respiratory Rate [Anterior Bilateral Throughout] Blood Pressure 148/82 148/82 148/82 O2 Sat by Pulse 96 96 97 Oximetry 02/06/19 02/06/19 02/06/19 09:51 10:00 10:11 Temperature Pulse Rate 99 H 105 H 121 H Pulse Rate [ Anterior Bilateral Throughout] Pulse Rate [ From Monitor] Respiratory 22 23 24 Rate Respiratory Rate [Anterior Bilateral Throughout] Blood Pressure 148/82 154/92 154/92 O2 Sat by Pulse 97 97 97 Oximetry 02/06/19 02/06/19 02/06/19 10:21 10:31 10:41 Temperature Pulse Rate 98 H 129 H 130 H Pulse Rate [ Anterior Bilateral Throughout] Pulse Rate [ From Monitor] Respiratory 22 23 23 Rate Respiratory Rate [Anterior Bilateral Throughout] Blood Pressure 154/92 154/92 154/92 O2 Sat by Pulse 97 97 96 Oximetry 02/06/19 02/06/19 02/06/19 10:51 11:00 11:11 Temperature Pulse Rate 101 H 103 H 106 H Pulse Rate [ Anterior Bilateral Throughout] Pulse Rate [ From Monitor] Respiratory 23 24 23 Rate Respiratory Rate [Anterior Bilateral Throughout] Blood Pressure 154/92 155/88 155/88 O2 Sat by Pulse 97 97 97 Oximetry 02/06/19 02/06/19 02/06/19 11:21 11:31 12:00 Temperature Pulse Rate 101 H 100 H Pulse Rate [ Anterior Bilateral Throughout] Pulse Rate [ 104 H From Monitor] Respiratory 24 22 29 H Rate Respiratory Rate [Anterior Bilateral Throughout] Blood Pressure 155/88 155/88 O2 Sat by Pulse 97 97 98 Oximetry 02/06/19 02/06/19 02/06/19 12:05 12:38 14:10 Temperature 98.5 F Pulse Rate 136 H 117 H Pulse Rate [ Anterior Bilateral Throughout] Pulse Rate [ From Monitor] Respiratory 26 H Rate Respiratory Rate [Anterior Bilateral Throughout] Blood Pressure 155/88 162/97 O2 Sat by Pulse 99 98 Oximetry 02/06/19 02/06/19 02/06/19 14:12 16:00 17:12 Temperature 98.5 F Pulse Rate 106 H Pulse Rate [ 107 H Anterior Bilateral Throughout] Pulse Rate [ From Monitor] Respiratory Rate Respiratory 28 H Rate [Anterior Bilateral Throughout] Blood Pressure 144/87 O2 Sat by Pulse 98 Oximetry - General Apperance Constitutional: comfortable - EENT EENT: PERRL, mucous membranes moist - Respiratory Respiratory: lungs clear - Cardiovascular Cardiovascular: regular rate - Neurologic Cranial nerve examination: PERRL, other (right eye deviation) Motor examination - right side: 15: biceps, triceps, wrist flexion, wrist extension, farmer vegetable, hip flexors, knee extensors, dorsiflexion, toe extension (EHL), plantarflexion Motor examination - left side: 06/24: biceps, triceps, wrist flexion, wrist extension, farmer vegetable, hip flexors, knee extensors, dorsiflexion, toe extension (EHL), plantarflexion Reflexes: 0: ankle, bicep, knee, tricep - Laboratory Findings CBC and BMP: 02/05/19 20:03 02/05/19 14:36 Abnormal Lab Findings: Abnormal Labs 02/01/19 02/01/19 02/01/19 07:16 07:16 07:16 WBC 17.7 H RBC Hgb Hct RDW 16.9 H Plt Count 62 L Seg Neuts % (Manual) 95.0 H Lymphocytes % (Manual) 0 L Seg Neutrophils # Man 16.8 H Lymphocytes # (Manual) 0.0 L PT 15.0 H INR 1.21 H APTT Thrombin Time 20.0 H POC ABG pH ABG pH POC ABG pO2 ABG HCO3 ABG Base Excess ABG Hemoglobin Oxyhemoglobin Sodium 135 L Potassium Chloride 97.7 L Carbon Dioxide 19 L BUN 51 H Creatinine 4.5 H Glucose 112 H POC Glucose Lactic Acid Calcium Iron TIBC Direct Bilirubin AST Troponin T 0.181 H* C-Reactive Protein Total Protein Albumin LDL Cholesterol Direct 34 L HDL Cholesterol 20 L Vitamin B12 Folate TSH Urine WBC (Auto) Complement C3 Complement C4 08/15/19 08/15/19 08/15/19 07:29 07:29 07:43 WBC RBC Hgb Hct RDW Plt Count Seg Neuts % (Manual) Lymphocytes % (Manual) Seg Neutrophils # Man Lymphocytes # (Manual) PT INR APTT Thrombin Time POC ABG pH ABG pH POC ABG pO2 ABG HCO3 ABG Base Excess ABG Hemoglobin Oxyhemoglobin Sodium Potassium Chloride Carbon Dioxide BUN Creatinine Glucose POC Glucose Lactic Acid 4.80 H* Calcium Iron TIBC Direct Bilirubin 0.7 H AST 42 H Troponin T C-Reactive Protein Total Protein 8.9 H Albumin 2.3 L LDL Cholesterol Direct HDL Cholesterol Vitamin B12 Folate TSH 8.470 H Urine WBC (Auto) Complement C3 Complement C4 02/01/19 02/01/19 02/01/19 09:45 11:32 13:50 WBC RBC Hgb Hct RDW Plt Count Seg Neuts % (Manual) Lymphocytes % (Manual) Seg Neutrophils # Man Lymphocytes # (Manual) PT INR APTT Thrombin Time POC ABG pH 7.289 L ABG pH POC ABG pO2 355 H ABG HCO3 ABG Base Excess ABG Hemoglobin Oxyhemoglobin Sodium Potassium Chloride Carbon Dioxide BUN Creatinine Glucose POC Glucose Lactic Acid 4.10 H* Calcium Iron TIBC Direct Bilirubin AST Troponin T C-Reactive Protein Total Protein Albumin LDL Cholesterol Direct HDL Cholesterol Vitamin B12 Folate TSH Urine WBC (Auto) 16.0 H Complement C3 Complement C4 02/01/19 02/01/19 02/01/19 15:15 16:20 16:51 WBC RBC Hgb Hct RDW Plt Count Seg Neuts % (Manual) Lymphocytes % (Manual) Seg Neutrophils # Man Lymphocytes # (Manual) PT INR APTT Thrombin Time POC ABG pH ABG pH POC ABG pO2 ABG HCO3 ABG Base Excess ABG Hemoglobin Oxyhemoglobin Sodium Potassium Chloride Carbon Dioxide BUN Creatinine Glucose POC Glucose 115 H Lactic Acid 4.50 H* Calcium Iron TIBC Direct Bilirubin AST Troponin T C-Reactive Protein Total Protein Albumin LDL Cholesterol Direct HDL Cholesterol Vitamin B12 Folate TSH Urine WBC (Auto) Complement C3 36 L Complement C4 02/01/19 02/01/19 02/01/19 16:51 17:03 17:04 WBC RBC Hgb Hct RDW Plt Count Seg Neuts % (Manual) Lymphocytes % (Manual) Seg Neutrophils # Man Lymphocytes # (Manual) PT INR APTT Thrombin Time POC ABG pH ABG pH POC ABG pO2 ABG HCO3 ABG Base Excess ABG Hemoglobin Oxyhemoglobin Sodium Potassium Chloride Carbon Dioxide BUN Creatinine Glucose POC Glucose Lactic Acid 2.80 H* Calcium Iron TIBC Direct Bilirubin AST Troponin T C-Reactive Protein 32.30 H Total Protein Albumin LDL Cholesterol Direct HDL Cholesterol Vitamin B12 Folate TSH Urine WBC (Auto) Complement C3 Complement C4 12 L 02/01/19 02/02/19 02/02/19 19:28 05:16 05:53 WBC 14.3 H RBC Hgb Hct RDW 16.9 H Plt Count 43 L Seg Neuts % (Manual) 93.0 H Lymphocytes % (Manual) 2.0 L Seg Neutrophils # Man 13.3 H Lymphocytes # (Manual) 0.3 L PT INR APTT Thrombin Time POC ABG pH ABG pH POC ABG pO2 148 H ABG HCO3 ABG Base Excess ABG Hemoglobin Oxyhemoglobin Sodium Potassium Chloride 107.1 H Carbon Dioxide 18 L BUN 52 H Creatinine 3.1 H Glucose 120 H POC Glucose Lactic Acid Calcium 7.4 L Iron TIBC Direct Bilirubin AST Troponin T C-Reactive Protein Total Protein Albumin LDL Cholesterol Direct HDL Cholesterol Vitamin B12 Folate TSH Urine WBC (Auto) Complement C3 Complement C4 02/02/19 02/03/19 02/03/19 05:53 03:30 03:30 WBC RBC 5.16 H Hgb 14.9 H Hct 46.2 H D RDW 17.0 H Plt Count 18 L* Seg Neuts % (Manual) Lymphocytes % (Manual) Seg Neutrophils # Man Lymphocytes # (Manual) PT INR APTT Thrombin Time POC ABG pH ABG pH POC ABG pO2 ABG HCO3 ABG Base Excess ABG Hemoglobin Oxyhemoglobin Sodium Potassium 5.1 H Chloride Carbon Dioxide 21 L BUN 57 H 65 H Creatinine 3.3 H 2.7 H Glucose 147 H 117 H POC Glucose Lactic Acid Calcium 7.5 L 7.2 L Iron TIBC Direct Bilirubin AST 51 H Troponin T C-Reactive Protein Total Protein Albumin 1.6 L LDL Cholesterol Direct HDL Cholesterol Vitamin B12 Folate TSH Urine WBC (Auto) Complement C3 Complement C4 02/03/19 02/03/19 02/03/19 05:55 14:42 14:42 WBC RBC Hgb Hct RDW Plt Count Seg Neuts % (Manual) Lymphocytes % (Manual) Seg Neutrophils # Man Lymphocytes # (Manual) PT INR APTT Thrombin Time POC ABG pH ABG pH POC ABG pO2 117 H ABG HCO3 ABG Base Excess ABG Hemoglobin Oxyhemoglobin Sodium Potassium Chloride Carbon Dioxide BUN Creatinine Glucose POC Glucose Lactic Acid Calcium Iron 11 L TIBC 88 L Direct Bilirubin AST Troponin T C-Reactive Protein Total Protein Albumin LDL Cholesterol Direct HDL Cholesterol Vitamin B12 1468 H Folate TSH Urine WBC (Auto) Complement C3 Complement C4 02/03/19 02/03/19 02/03/19 14:42 14:42 14:42 WBC RBC 3.17 L 3.22 L Hgb 9.4 L D 9.5 L Hct 28.3 L D 28.5 L RDW 16.9 H 16.4 H Plt Count 18 L* 18 L* Seg Neuts % (Manual) Lymphocytes % (Manual) Seg Neutrophils # Man Lymphocytes # (Manual) PT INR APTT Thrombin Time POC ABG pH ABG pH POC ABG pO2 ABG HCO3 ABG Base Excess ABG Hemoglobin Oxyhemoglobin Sodium Potassium Chloride Carbon Dioxide BUN Creatinine Glucose POC Glucose Lactic Acid Calcium Iron TIBC Direct Bilirubin AST Troponin T C-Reactive Protein Total Protein Albumin LDL Cholesterol Direct HDL Cholesterol Vitamin B12 Folate 5.18 L TSH Urine WBC (Auto) Complement C3 Complement C4 02/03/19 02/04/19 02/04/19 14:42 03:35 05:02 WBC RBC Hgb Hct RDW 16.5 H Plt Count 20 L Seg Neuts % (Manual) 94.0 H Lymphocytes % (Manual) 2.0 L Seg Neutrophils # Man 9.2 H Lymphocytes # (Manual) 0.2 L PT 15.8 H INR 1.29 H APTT 38.2 H Thrombin Time POC ABG pH ABG pH 7.470 H POC ABG pO2 ABG HCO3 28.4 H ABG Base Excess 4.5 H ABG Hemoglobin 10.1 L Oxyhemoglobin 94.7 L Sodium Potassium Chloride Carbon Dioxide BUN Creatinine Glucose POC Glucose Lactic Acid Calcium Iron TIBC Direct Bilirubin AST Troponin T C-Reactive Protein Total Protein Albumin LDL Cholesterol Direct HDL Cholesterol Vitamin B12 Folate TSH Urine WBC (Auto) Complement C3 Complement C4 02/04/19 02/05/19 02/05/19 05:02 03:50 13:02 WBC 11.7 H RBC 3.48 L Hgb 10.0 L Hct RDW 16.3 H Plt Count 50 L D Seg Neuts % (Manual) 95.0 H Lymphocytes % (Manual) 0 L Seg Neutrophils # Man 11.1 H Lymphocytes # (Manual) 0.0 L PT INR APTT Thrombin Time POC ABG pH ABG pH 7.485 H POC ABG pO2 ABG HCO3 27.5 H ABG Base Excess 3.9 H ABG Hemoglobin 9.1 L Oxyhemoglobin 94.8 L Sodium Potassium Chloride Carbon Dioxide BUN 66 H Creatinine 1.7 H Glucose 127 H POC Glucose Lactic Acid Calcium 7.6 L Iron TIBC Direct Bilirubin AST Troponin T C-Reactive Protein Total Protein Albumin LDL Cholesterol Direct HDL Cholesterol Vitamin B12 Folate TSH Urine WBC (Auto) Complement C3 Complement C4 02/05/19 02/05/19 02/06/19 14:36 20:03 05:39 WBC RBC 3.24 L Hgb 9.4 L Hct 29.2 L RDW 16.3 H Plt Count 71 L Seg Neuts % (Manual) 95.0 H Lymphocytes % (Manual) 2.0 L Seg Neutrophils # Man 10.2 H Lymphocytes # (Manual) 0.2 L PT INR APTT Thrombin Time POC ABG pH ABG pH POC ABG pO2 ABG HCO3 ABG Base Excess ABG Hemoglobin Oxyhemoglobin Sodium Potassium Chloride Carbon Dioxide BUN 67 H Creatinine 1.5 H Glucose POC Glucose 107 H Lactic Acid Calcium 7.7 L Iron TIBC Direct Bilirubin AST Troponin T C-Reactive Protein Total Protein Albumin LDL Cholesterol Direct HDL Cholesterol Vitamin B12 Folate TSH Urine WBC (Auto) Complement C3 Complement C4 02/06/19 02/06/19 02/06/19 07:35 18:34 Unknown WBC RBC Hgb Hct RDW Plt Count Seg Neuts % (Manual) Lymphocytes % (Manual) Seg Neutrophils # Man Lymphocytes # (Manual) PT 16.3 H INR 1.35 H APTT Thrombin Time POC ABG pH ABG pH POC ABG pO2 ABG HCO3 ABG Base Excess ABG Hemoglobin 5.0 L Oxyhemoglobin 94.9 L Sodium Potassium Chloride Carbon Dioxide BUN Creatinine Glucose POC Glucose 121 H Lactic Acid Calcium Iron TIBC Direct Bilirubin AST Troponin T C-Reactive Protein Total Protein Albumin LDL Cholesterol Direct HDL Cholesterol Vitamin B12 Folate TSH Urine WBC (Auto) Complement C3 Complement C4 - Diagnostic Findings Additional findings: CSF WBC 1250 RBC 30 GLUC 38 PROT 140
[2019-02-06 22:36] LABS: Hematocrit 32.4 % (30.3-42.9); Hemoglobin 10.4 gm/dl (10.1-14.3)
[2019-02-07] MEDS ORDERED: dilTIAZem/D5W 100 MG/100 ML BAG IV SCH (01:00)
[2019-02-07 01:49] LABS: Calcium 8.3 mg/dL (8.4-10.2)
[2019-02-07] MEDS: IPRATROPIUM/ALBUTEROL SULFATE 3 ML AMPUL.NEB IH SCH ×4 (02:00→20:11)
--- NOTE | 2019-02-07 02:56 | XRay Report ---
CHEST 1 VIEW 1:58 AM INDICATION / CLINICAL INFORMATION: Follow-up respiratory failure. COMPARISON: Yesterday. FINDINGS: SUPPORT DEVICES: The positions of the endotracheal and nasogastric tubes have not changed. HEART / MEDIASTINUM: Unchanged. LUNGS / PLEURA: There is mild bilateral parenchymal disease, most prominent in the lower lung zones. Disease has shown significant improvement. No pneumothorax. ADDITIONAL FINDINGS: No significant additional findings. IMPRESSION: Improving bilateral parenchymal disease. Signer Name: Krunal Crowder MD Signed: 02/07/2019 2:51 AM Workstation Name: [email or web address]
[2019-02-07] MEDS ORDERED: AMIODARONE 150 MG in DEXTROSE 5% IN WATER 97 ML IV ONE (03:27)
[2019-02-07] MEDS ORDERED: AMIODARONE 900 MG in DEXTROSE 5% IN WATER 482 ML IV SCH (04:00)
[2019-02-07 04:53] LABS: ABG HCO3 22.5 mmol/L (20.0-26.0); ABG Methemoglobin 0.7 % (0.0-1.5); ABG Oxygen Saturation 96.9 % (95.0-99.0); ABG PCO2 33.7 mm Hg; ABG PH 7.442 pH Units (7.350-7.450); ABG PO2 87.7 mm Hg (80.0-90.0)
[2019-02-07 07:48] LABS: Basophils CSF 0 %; Total Cells Counted 100 /mm3
--- NOTE | 2019-02-07 08:07 | Hem/Onc Progress Note ---
Assessment and Plan 1. Thrombocytopenia, sepsis/infection/antibiotic related. Folate level is low, B12 is normal. Serum iron is low, but ferritin is not low. HIV negative. Fibrinogen level is not low. PT, PTT is not abnormal. Supportive care at this time will help the patient. 2. Diabetes. 3. Hypothyroidism. 4. History of renal impairment, on supportive care. 5. Intubation for respiratory issues. 6. Neurology team saw the patient. Neurology thinks it is septic metabolic encephalopathy. I will follow the patient during inpatient stay. plt improving low folate non replaement pt still - on vent - unresponsive - Patient Problems (1) Thrombocytopenia Current Visit: Yes Status: Acute Subjective Date of service: 02/07/19 Principal diagnosis: low plt Interval history: not responsive to pain Objective - Exam Narrative Exam: Pain - not evaluable General appearance intubated Performance status complete dependent Eyes - no icterus ENT - no bleeding - on vent LNs cervical not palpable Neck - no LN Respiratory Normal Breath sounds - CTA anteriorly CVS S1 S2 + Extremities normal temperature General GI Soft Rectal deferred female - deferred Skin warm Musculoskeletal not moving Neurologically not responding - Constitutional Vitals: Last Vital Signs Temp 100.0 F H 02/07/19 04:00 Pulse 107 H 02/07/19 07:41 Resp 22 02/07/19 07:41 BP 140/86 02/07/19 07:41 Pulse Ox 98 02/07/19 07:41 - Labs Lab Results: Laboratory Results - last 24 hr 02/05/19 02/06/19 02/06/19 14:10 07:35 18:34 Hgb Hct PT 16.3 H INR 1.35 H APTT 33.1 ABG pH ABG pCO2 ABG pO2 ABG HCO3 ABG O2 Saturation ABG O2 Content ABG Base Excess ABG Hemoglobin ABG Carboxyhemoglobin ABG Methemoglobin Oxyhemoglobin FiO2 Sodium Potassium Chloride Carbon Dioxide Anion Gap BUN Creatinine Estimated GFR BUN/Creatinine Ratio Glucose POC Glucose 121 H Calcium Magnesium CSF Appearance Turbid CSF Color Colorless CSF WBC 1250 CSF RBC 30 CSF Seg Neutrophils 30.0 CSF Lymphocytes % 40.0 CSF Reactive Lymphs 0 CSF Monocytes % 30.0 CSF Eosinophils % 0 CSF Basophils 0 CSF Pathologist Review C CSF Glucose 38 CSF Total Protein 140 02/06/19 02/07/19 02/07/19 21:44 01:07 01:07 Hgb 10.4 Hct 32.4 PT INR APTT ABG pH ABG pCO2 ABG pO2 ABG HCO3 ABG O2 Saturation ABG O2 Content ABG Base Excess ABG Hemoglobin ABG Carboxyhemoglobin ABG Methemoglobin Oxyhemoglobin FiO2 Sodium 146 H Potassium 4.0 Chloride 107.0 Carbon Dioxide 22 Anion Gap 21 BUN 85 H Creatinine 1.8 H Estimated GFR 36 BUN/Creatinine Ratio 47 Glucose 163 H POC Glucose Calcium 8.3 L Magnesium 2.20 CSF Appearance CSF Color CSF WBC CSF RBC CSF Seg Neutrophils CSF Lymphocytes % CSF Reactive Lymphs CSF Monocytes % CSF Eosinophils % CSF Basophils CSF Pathologist Review CSF Glucose CSF Total Protein 02/07/19 04:15 Hgb Hct PT INR APTT ABG pH 7.442 ABG pCO2 33.7 ABG pO2 87.7 ABG HCO3 22.5 ABG O2 Saturation 96.9 ABG O2 Content 17.6 ABG Base Excess -1.0 ABG Hemoglobin 13.2 ABG Carboxyhemoglobin 1.4 ABG Methemoglobin 0.7 Oxyhemoglobin 94.8 L FiO2 25 Sodium Potassium Chloride Carbon Dioxide Anion Gap BUN Creatinine Estimated GFR BUN/Creatinine Ratio Glucose POC Glucose Calcium Magnesium CSF Appearance CSF Color CSF WBC CSF RBC CSF Seg Neutrophils CSF Lymphocytes % CSF Reactive Lymphs CSF Monocytes % CSF Eosinophils % CSF Basophils CSF Pathologist Review CSF Glucose CSF Total Protein Medications & Allergies - Medications Allergies/Adverse Reactions: Allergies No Known Allergies Allergy (Verified 08/18/18 09:04) Home Medications: Home Medications Medication Instructions Recorded Confirmed Last Taken Type Levothyroxine [Synthroid] 112 mcg PO QAM 02/01/19 02/01/19 Unknown History Lisinopril [Zestril TAB] 40 mg PO QDAY 02/01/19 02/01/19 Unknown History amLODIPine [Norvasc] 10 mg PO DAILY 02/01/19 02/01/19 Unknown History cloNIDine [Catapres] 1 mg PO QDAY 02/01/19 02/01/19 Unknown History Active Medications: Generic Name Dose Route Start Last Admin Trade Name Freq PRN Reason Stop Dose Admin Acetaminophen 650 mg 02/01/19 10:47 02/05/19 16:46 Tylenol PO 650 mg Q4H PRN Administration Pain MILD(1-3)/Fever >100.5/VALENZUELA Albuterol 2.5 mg 02/01/19 10:47 Proventil IH Q4HRT PRN Shortness Of Breath Albuterol/Ipratropium 1 ampul 02/01/19 12:00 02/07/19 07:50 Duoneb *Not For Prn Use* IH 1 ampul Q6HRT AMOL Administration Lipase/Protease/Amylase 1 each 02/05/19 11:04 Pancreemeka Hammond 10,500 Unit FEEDTUBE PRN PRN For Clogged Feeding Tube Famotidine 20 mg 02/03/19 10:00 02/06/19 09:30 Pepcid IV 20 mg QDAY AMOL Administration Folic Acid 1 mg 02/06/19 10:00 02/06/19 09:30 Folvite PO 1 mg QDAY AMOL Administration Hydrophilic Ointment 1 applic 02/01/19 11:09 02/02/19 16:50 Vaseline Lip Therapy TP 1 applic Q2HR PRN Administration Dry Lips Midazolam HCl 100 mg/ Sodium 100 mls @ 2 mls/hr 02/01/19 12:00 02/03/19 07:40 Chloride IV 0 mg/hr TITR AMOL 0 mls/hr Titration Protocol 2 MG/HR Ceftriaxone Sodium 2 gm in 100 mls @ 200 mls/hr 02/05/19 13:00 02/06/19 22:02 Rocephin/Ns 2 Gm/100 Ml IV 100 mls/hr Q12HR AMOL Administration Protocol Methylprednisolone Sodium 250 mls @ 250 mls/hr 02/06/19 13:00 02/06/19 15:00 Succinate 1,000 mg/ Sodium IV Infused Chloride Q24H AMOL Infusion Amiodarone HCl 900 mg/ 500 mls @ 33.333 mls/hr 02/07/19 04:00 02/07/19 04:14 Dextrose IV 1 mg/min DIRECT AMOL 33.333 mls/hr Administration Protocol 1 MG/MIN Levothyroxine Sodium 125 mcg 02/07/19 10:00 Synthroid PO QAM AMOL Midazolam HCl 2 mg 02/01/19 11:09 02/01/19 11:42 Versed IV 2 mg Q10MIN PRN Administration Sedation Morphine Sulfate 2 mg 02/01/19 10:47 02/06/19 20:14 Morphine IV 2 mg Q4H PRN Administration Pain, Moderate (4-6) Multi-Ingred Cream/Lotion/Oil/Oint 1 applic 02/01/19 11:09 02/02/19 16:50 Artificial Tears Ophth Oint OU 1 applic Q4HR PRN Administration Dry Eye(s) Multivitamins 5 ml 02/06/19 10:00 02/06/19 09:30 Centrum Liq PO 5 ml QDAY AMOL Administration Ondansetron HCl 4 mg 02/01/19 10:47 Zofran IV Q8H PRN Nausea And Vomiting Simple Syrup 15 ml 02/05/19 11:04 Simple Syrup FEEDTUBE PRN PRN Hypoglycemia Simple Syrup 30 ml 02/05/19 11:04 Simple Syrup FEEDTUBE PRN PRN Hypoglycemia Sodium Bicarbonate 325 mg 02/05/19 11:04 Sodium Bicarbonate FEEDTUBE PRN PRN For Clogged Feeding Tube Sodium Chloride 10 ml 02/01/19 22:00 02/06/19 22:03 Sodium Chloride Flush Syringe 10 Ml IV 10 ml BID AMOL Administration Sodium Chloride 10 ml 02/01/19 10:47 Sodium Chloride Flush Syringe 10 Ml IV PRN PRN LINE FLUSH
[2019-02-07 08:42] LABS: Hematocrit 33.1 % (30.3-42.9); Hemoglobin 10.9 gm/dl (10.1-14.3); Mean Corpuscular HGB Conc 33 % (30-34); Mean Corpuscular Volume 90 fl (79-97); Red Blood Count 3.67 M/mm3 (3.65-5.03)
[2019-02-07 08:43] LABS: Platelet Count 84 K/mm3 (140-440)
[2019-02-07 09:22] LABS: Basophils % (Manual) 0 % (0.0-1.8); Total Cells Counted 100
[2019-02-07 09:23] LABS: Eosinophils % (Manual) 0 % (0.0-4.3)
[2019-02-07 09:25] LABS: Anisocytosis Few; Large Platelets Rare; Poikilocytosis Few
[2019-02-07 09:26] LABS: Platelet Estimate Consistent w Auto
--- NOTE | 2019-02-07 09:52 | Progress Note ---
Assessment and Plan Impression: * Oliguric acute kidney injury secondary to sepsis related ATN --SCr 1.22mg/dl in Sep 2017, 1.8 today * Sepsis * Cellulitis of neck, right --CT Neck: inflammation on the right side of the neck suggestive of cellulitis * Streptococcal bacteremia * Acute encephalopathy * Acute respiratory failure * Metabolic acidosis secondary to lactic acidosis * ?Autoimmune disease * Microscopic hematuria * Proteinuria * Thrombocytopenia Plan: * Renal function overall improved with supportive measures, no indications for renal replacement therapy (creatinine did bump again, will continue to follow) * Continue conservative management for now * Continue NS as tolerated for IVF * Vent management per CCM * CHESTER, ANCA pending; HIV, hepatitis, RPR negative. Complements low likely in setting of acute infection, but consider autoimmune disease given presentation * Abx per ID, neurology for consideration of meningitis * Management of platelet abnormalities per hematology * Dose medications for renal function * Avoid potential nephrotoxic agents * Strict I/O Subjective Principal diagnosis: septic shock Interval history: no acute changes overnight. remains intubated. had LP yesterday, concern for meningitis Objective - Exam Narrative Exam: General appearance: well-developed, sick appearing, intubated EENT: ATNC, ETT in place Respiratory: coarse mechanical breath sounds noted Cardiology: regular, S1S2 Gastrointestinal: normal, no tenderness, no distended Integumentary: warm and dry Musculoskeletal: no edema - Vital Signs Vital signs: Vital Signs - 12hr 02/06/19 02/06/19 02/06/19 22:00 22:01 22:15 Temperature Pulse Rate 104 H 112 H 155 H Pulse Rate [ Anterior Bilateral Throughout] Respiratory 24 24 Rate Respiratory Rate [Anterior Bilateral Throughout] Blood Pressure 158/91 158/91 O2 Sat by Pulse 98 96 Oximetry 02/06/19 02/06/19 02/06/19 22:31 22:45 23:01 Temperature Pulse Rate 157 H 154 H 135 H Pulse Rate [ Anterior Bilateral Throughout] Respiratory 24 23 25 H Rate Respiratory Rate [Anterior Bilateral Throughout] Blood Pressure 144/80 144/80 147/78 O2 Sat by Pulse 97 97 96 Oximetry 02/06/19 02/06/19 02/06/19 23:15 23:27 23:31 Temperature Pulse Rate 147 H 127 H 108 H Pulse Rate [ Anterior Bilateral Throughout] Respiratory 25 H 23 24 Rate Respiratory Rate [Anterior Bilateral Throughout] Blood Pressure 147/78 135/71 148/91 O2 Sat by Pulse 95 98 98 Oximetry 02/06/19 02/07/19 02/07/19 23:45 00:00 00:15 Temperature Pulse Rate 149 H 106 H 111 H Pulse Rate [ Anterior Bilateral Throughout] Respiratory 23 23 25 H Rate Respiratory Rate [Anterior Bilateral Throughout] Blood Pressure 148/91 144/90 144/90 O2 Sat by Pulse 97 97 96 Oximetry 02/07/19 02/07/19 02/07/19 00:31 00:45 01:01 Temperature Pulse Rate 195 H 125 H 128 H Pulse Rate [ Anterior Bilateral Throughout] Respiratory 25 H 24 26 H Rate Respiratory Rate [Anterior Bilateral Throughout] Blood Pressure 158/79 158/79 151/82 O2 Sat by Pulse 97 97 98 Oximetry 02/07/19 02/07/19 02/07/19 01:15 01:31 01:45 Temperature Pulse Rate 107 H 155 H 126 H Pulse Rate [ Anterior Bilateral Throughout] Respiratory 23 28 H 22 Rate Respiratory Rate [Anterior Bilateral Throughout] Blood Pressure 141/90 139/80 139/80 O2 Sat by Pulse 97 98 98 Oximetry 02/07/19 02/07/19 02/07/19 02:01 02:15 02:31 Temperature Pulse Rate 114 H 144 H 175 H Pulse Rate [ Anterior Bilateral Throughout] Respiratory 22 22 26 H Rate Respiratory Rate [Anterior Bilateral Throughout] Blood Pressure 128/66 128/66 136/71 O2 Sat by Pulse 97 97 96 Oximetry 02/07/19 02/07/19 02/07/19 02:45 03:00 03:15 Temperature Pulse Rate 179 H 178 H 196 H Pulse Rate [ Anterior Bilateral Throughout] Respiratory 25 H 25 H 23 Rate Respiratory Rate [Anterior Bilateral Throughout] Blood Pressure 139/77 133/75 133/75 O2 Sat by Pulse 96 97 97 Oximetry 02/07/19 02/07/19 02/07/19 03:30 03:45 04:00 Temperature 100.0 F H Pulse Rate 176 H 173 H 167 H Pulse Rate [ Anterior Bilateral Throughout] Respiratory 23 24 25 H Rate Respiratory Rate [Anterior Bilateral Throughout] Blood Pressure 110/74 110/74 134/88 O2 Sat by Pulse 97 97 97 Oximetry 02/07/19 02/07/19 02/07/19 04:15 04:30 04:45 Temperature Pulse Rate 142 H 145 H 156 H Pulse Rate [ Anterior Bilateral Throughout] Respiratory 24 22 22 Rate Respiratory Rate [Anterior Bilateral Throughout] Blood Pressure 134/88 133/88 133/88 O2 Sat by Pulse 97 97 97 Oximetry 02/07/19 02/07/19 02/07/19 04:48 05:01 05:15 Temperature Pulse Rate 147 H 149 H 93 H Pulse Rate [ Anterior Bilateral Throughout] Respiratory 21 24 Rate Respiratory Rate [Anterior Bilateral Throughout] Blood Pressure 148/103 148/103 145/83 O2 Sat by Pulse 97 97 97 Oximetry 02/07/19 02/07/19 02/07/19 05:30 05:45 06:00 Temperature Pulse Rate 93 H 93 H 97 H Pulse Rate [ Anterior Bilateral Throughout] Respiratory 21 24 22 Rate Respiratory Rate [Anterior Bilateral Throughout] Blood Pressure 131/83 136/85 141/82 O2 Sat by Pulse 97 97 97 Oximetry 02/07/19 02/07/19 02/07/19 07:41 07:47 08:00 Temperature 99.4 F Pulse Rate 107 H Pulse Rate [ 101 H Anterior Bilateral Throughout] Respiratory 22 Rate Respiratory 22 Rate [Anterior Bilateral Throughout] Blood Pressure 140/86 O2 Sat by Pulse 98 Oximetry - Lab 02/07/19 08:22 02/07/19 01:07 Most recent lab results ABG pH 7.442 pH Units (7.350-7.450) 02/07/19 04:15 ABG pCO2 33.7 mm Hg 02/07/19 04:15 ABG pO2 87.7 mm Hg (80.0-90.0) 02/07/19 04:15 ABG HCO3 22.5 mmol/L (20.0-26.0) 02/07/19 04:15 ABG O2 Saturation 96.9 % (95.0-99.0) 02/07/19 04:15 Calcium 8.3 mg/dL (8.4-10.2) L 02/07/19 01:07 Magnesium 2.20 mg/dL (1.7-2.3) 02/07/19 01:07 Medications & Allergies - Medications Allergies/Adverse Reactions: Allergies No Known Allergies Allergy (Verified 08/18/18 09:04) Home Medications: Home Medications Medication Instructions Recorded Confirmed Last Taken Type Levothyroxine [Synthroid] 112 mcg PO QAM 02/01/19 02/01/19 Unknown History Lisinopril [Zestril TAB] 40 mg PO QDAY 02/01/19 02/01/19 Unknown History amLODIPine [Norvasc] 10 mg PO DAILY 02/01/19 02/01/19 Unknown History cloNIDine [Catapres] 1 mg PO QDAY 02/01/19 02/01/19 Unknown History Active Medications: Generic Name Dose Route Start Last Admin Trade Name Freq PRN Reason Stop Dose Admin Acetaminophen 650 mg 02/01/19 10:47 02/05/19 16:46 Tylenol PO 650 mg Q4H PRN Administration Pain MILD(1-3)/Fever >100.5/VALENZUELA Albuterol 2.5 mg 02/01/19 10:47 Proventil IH Q4HRT PRN Shortness Of Breath Albuterol/Ipratropium 1 ampul 02/01/19 12:00 02/07/19 07:50 Duoneb *Not For Prn Use* IH 1 ampul Q6HRT AMOL Administration Lipase/Protease/Amylase 1 each 02/05/19 11:04 Pancreaze 10,500 Unit FEEDTUBE PRN PRN For Clogged Feeding Tube Famotidine 20 mg 02/07/19 10:00 Pepcid PO DAILY AMOL Folic Acid 1 mg 02/06/19 10:00 02/06/19 09:30 Folvite PO 1 mg QDAY AMOL Administration Hydrophilic Ointment 1 applic 02/01/19 11:09 02/02/19 16:50 Vaseline Lip Therapy TP 1 applic Q2HR PRN Administration Dry Lips Midazolam HCl 100 mg/ Sodium 100 mls @ 2 mls/hr 02/01/19 12:00 02/03/19 07:40 Chloride IV 0 mg/hr TITR AMOL 0 mls/hr Titration Protocol 2 MG/HR Ceftriaxone Sodium 2 gm in 100 mls @ 200 mls/hr 02/05/19 13:00 02/06/19 22:02 Rocephin/Ns 2 Gm/100 Ml IV 100 mls/hr Q12HR AMOL Administration Protocol Methylprednisolone Sodium 250 mls @ 250 mls/hr 02/06/19 13:00 02/06/19 15:00 Succinate 1,000 mg/ Sodium IV Infused Chloride Q24H AMOL Infusion Amiodarone HCl 900 mg/ 500 mls @ 33.333 mls/hr 02/07/19 04:00 02/07/19 04:14 Dextrose IV 1 mg/min DIRECT AMOL 33.333 mls/hr Administration Protocol 1 MG/MIN Levothyroxine Sodium 125 mcg 02/07/19 10:00 Synthroid PO QAM AMOL Midazolam HCl 2 mg 02/01/19 11:09 02/01/19 11:42 Versed IV 2 mg Q10MIN PRN Administration Sedation Morphine Sulfate 2 mg 02/01/19 10:47 02/06/19 20:14 Morphine IV 2 mg Q4H PRN Administration Pain, Moderate (4-6) Multi-Ingred Cream/Lotion/Oil/Oint 1 applic 02/01/19 11:09 02/02/19 16:50 Artificial Tears Ophth Oint OU 1 applic Q4HR PRN Administration Dry Eye(s) Multivitamins 5 ml 02/06/19 10:00 02/06/19 09:30 Centrum Liq PO 5 ml QDAY AMOL Administration Ondansetron HCl 4 mg 02/01/19 10:47 Zofran IV Q8H PRN Nausea And Vomiting Simple Syrup 15 ml 02/05/19 11:04 Simple Syrup FEEDTUBE PRN PRN Hypoglycemia Simple Syrup 30 ml 02/05/19 11:04 Simple Syrup FEEDTUBE PRN PRN Hypoglycemia Sodium Bicarbonate 325 mg 02/05/19 11:04 Sodium Bicarbonate FEEDTUBE PRN PRN For Clogged Feeding Tube Sodium Chloride 10 ml 02/01/19 22:00 02/06/19 22:03 Sodium Chloride Flush Syringe 10 Ml IV 10 ml BID AMOL Administration Sodium Chloride 10 ml 02/01/19 10:47 Sodium Chloride Flush Syringe 10 Ml IV PRN PRN LINE FLUSH
[2019-02-07] MEDS ORDERED: LEVOTHYROXINE 112 MCG TAB PO SCH (10:00)
[2019-02-07] MEDS: FOLIC ACID 1 MG TAB PO SCH (10:37)
[2019-02-07] MEDS: MULTIVITAMINS 5 ML ORAL LIQUID PO SCH (10:37)
[2019-02-07] MEDS: cefTRIAXone/NS 2 GM/100 ML 2 GM/100 ML BAG IV SCH ×2 (10:37→21:36)
[2019-02-07] MEDS: FAMOTIDINE 20 MG TAB PO SCH (10:38)
[2019-02-07] MEDS: LEVOTHYROXINE 125 MCG TAB PO SCH (10:38)
[2019-02-07] MEDS ORDERED: PROPOFOL 200 MG/20 ML VIAL IV ONE (11:31)
--- NOTE | 2019-02-07 11:49 | Progress Note ---
Assessment and Plan Cultures: 02/01/2019 blood culture: Strep pneumoniae in 4/4 bottles 02/01/2019 urine culture: no growth 02/01/2019 tracheal aspirate: Strep species 02/02/2019 blood culture: no growth 02/05/2019 CSF culture: in process 02/01/2019 C3: 36 (low) 02/01/2019 C4: 12 (low) HIV: non reactive RPR: non reactive Hepatitis panel: non reactive A/P: 53-year-old female with hypothyroidism, hypertension, ?autoimmune disease. Admitted with: 1) Severe sepsis with Strep pneumoniae bacteremia, pneumonia and meningitis: TTE showed some ?pulmonic valve vegetation. Awaiting TERRENCE. CSF shows WBC 1250, RBC 30, PMN 30%, Glucose 38, Protein 140. 2) Right neck severe lymphadenopathy: CT neck was without contrast, hence limited eval of vasculature. Neck US revealed extensive R neck lymphadenopathy, no abscess. HIV, RPR negative. Bartonella serologies pending. Today, patient's mother showed me paperwork from patient's PCP, patient was seen on 01/30/2019 at PCP office for R neck lump, was given medrol dose kevin and ultrasound was order ed. Once creatinine improves further, may need CT chest, abdomen pelvis with IV contrast to evaluate for other lymphadenopathy. 3) Bilateral pneumonia: sputum culture also growing Strep, likely Strep pneumoniae. 4) Acute renal failure: renally dose abx. Nephrology following. Creatinine 1.8 today. 5) ?Autoimmune disease: need more history. Unclear if she is on any kind of immunosuppression. C3, C4 came back low. F/u CHESTER, ANCA. Suspect some underlying immunodeficiency. 6) Thrombocytopenia: worse. Hematology following. Sepsis v/s autoimmune in etiology. 7) Acute encephalopathy: secondary to meningitis. Recs: continue IV Ceftriaxone 2 gm q12 hrs for invasive Pneumococcal disease and meningitis. Not much role for steroids at this time since she has already recei katie several doses of abx. awaiting TERRENCE f/u Bartonella serologies once creatinine improves further, may need CT chest, abdomen pelvis with IV contrast to evaluate for other lymphadenopathy Updated plan of care discussed with the patient's mother at bedside again today. Luis Lewis MD, FACP [facility] ([facility] M: [phone] O: [phone] F: [phone] Subjective Date of service: 02/07/19 Principal diagnosis: septic shock Interval history: No fever. Remains critically ill, on the vent. Drowsy. Objective - Exam Narrative Exam: Physical Exam: Constitutional: drowsy, opens eyes, doesn't follow commands, intubated Head, Ears, Nose: Normocephalic, atraumatic. External ears, nose normal Eyes: Conjunctivae/corneas clear. No icterus. No ptosis. Neck: R cervical lymphadenopathy, slightly improved Oral: intubated Cardiovascular: S1, S2 normal. Respiratory: AE clear bilaterally, no wheeze GI: Soft, non-tender; bowel sounds normal. No peritoneal signs Musculoskeletal: No pedal edema, no cyanosis. Skin: No rash or abscess Hem/Lymphatic: No palpable cervical or supraclavicular nodes. No lymphangitis Psych: no agitation Neurological: opens eyes, doesn't follow commands, on the vent - Constitutional Vitals: Vital Signs Temp Pulse Resp BP Pulse Ox 99.4 F 99 H 26 H 139/93 98 02/07/19 08:00 02/07/19 11:01 02/07/19 11:01 02/07/19 11:01 02/07/19 11:01 Temperature -Last 24 Hours Temperature 99.4 F Temperature 100.0 F Temperature 99.6 F Temperature 98.5 F Temperature 98.5 F - Labs CBC & Chem 7: 02/07/19 08:22 02/07/19 01:07 Labs: Abnormal lab results 02/06/19 02/07/19 02/07/19 Range/Units 18:34 01:07 04:15 RDW (13.2-15.2) % Plt Count (140-440) K/mm3 Seg Neuts % (Manual) (40.0-70.0) % Lymphocytes % (Manual) (13.4-35.0) % Seg Neutrophils # Man (1.8-7.7) K/mm3 Lymphocytes # (Manual) (1.2-5.4) K/mm3 POC ABG pH (7.35-7.45) POC ABG pCO2 (35-45) POC ABG pO2 (80-105) Oxyhemoglobin 94.8 L (95.0-99.0) % Sodium 146 H (137-145) mmol/L BUN 85 H (7-17) mg/dL Creatinine 1.8 H (0.7-1.2) mg/dL Glucose 163 H (65-100) mg/dL POC Glucose 121 H (70-105) Calcium 8.3 L (8.4-10.2) mg/dL 02/07/19 02/07/19 Range/Units 08:22 10:58 RDW 16.0 H (13.2-15.2) % Plt Count 84 L (140-440) K/mm3 Seg Neuts % (Manual) 97.0 H (40.0-70.0) % Lymphocytes % (Manual) 0 L (13.4-35.0) % Seg Neutrophils # Man 9.5 H (1.8-7.7) K/mm3 Lymphocytes # (Manual) 0.0 L (1.2-5.4) K/mm3 POC ABG pH 7.477 H (7.35-7.45) POC ABG pCO2 34.8 L (35-45) POC ABG pO2 118 H (80-105) Oxyhemoglobin (95.0-99.0) % Sodium (137-145) mmol/L BUN (7-17) mg/dL Creatinine (0.7-1.2) mg/dL Glucose (65-100) mg/dL POC Glucose (70-105) Calcium (8.4-10.2) mg/dL - Imaging and cardiology Chest x-ray: report reviewed, image reviewed (patchy airspace disease bilaterally, slight interval improvement.)
[2019-02-07] MEDS ORDERED: dilTIAZem 25 MG/5 ML INJ IV ONE (12:00)
[2019-02-07] MEDS: dilTIAZem/D5W 100 MG/100 ML BAG IV SCH ×2 (12:13→23:15)
--- NOTE | 2019-02-07 12:22 | Progress Note ---
Assessment and Plan Imp: 1. Neck cellulitis 2. Strep pneumonae Bacteremia 3. Severe sepsis 4. DIANA 5. Hyperkalemia, resolved 6. Lactic acidosis, resolved 7. Acute respiratory failure, hypoxia, tolerated CPAP trial 8. Metabolic encephalopathy 9. Thrombocytopenia s/p plt transfusion 10. Bilateral pneumonia worsening 11. AMS ? etiology. LP non revealing Rec: 1. ABX per ID 2. Neurological evaluation regards to AMS 3. Hyperkalemia per renal 4. Keep sedated for now; PSV trials once underlying sepsis improves 5. SCDs, Pepcid, avoid Lovenox due to thrombocytopenia 6. Prognosis is guarded; no family present 7. Continue with ventilator 8. MRI and TERRENCE scheduled Case was discussed with respiratory therapist and nursing staff. Total critical care time 31 minute Subjective Date of service: 02/07/19 Principal diagnosis: septic shock Interval history: Patient remained unresponsive, off all sedation. Off all vasopressors. Currently being worked up for AMS and sepsis. MRI brain and TERRENCE today. Tolerating CPAP trial with pressure support of 15 cm quite well with adequate arterial blood gases Objective Vital Signs - 12hr 02/07/19 02/07/19 02/07/19 00:31 00:45 01:01 Temperature Pulse Rate 195 H 125 H 128 H Pulse Rate [ Anterior Bilateral Throughout] Pulse Rate [ From Monitor] Respiratory 25 H 24 26 H Rate Respiratory Rate [Anterior Bilateral Throughout] Blood Pressure 158/79 158/79 151/82 O2 Sat by Pulse 97 97 98 Oximetry 02/07/19 02/07/19 02/07/19 01:15 01:31 01:45 Temperature Pulse Rate 107 H 155 H 126 H Pulse Rate [ Anterior Bilateral Throughout] Pulse Rate [ From Monitor] Respiratory 23 28 H 22 Rate Respiratory Rate [Anterior Bilateral Throughout] Blood Pressure 141/90 139/80 139/80 O2 Sat by Pulse 97 98 98 Oximetry 02/07/19 02/07/19 02/07/19 02:01 02:15 02:31 Temperature Pulse Rate 114 H 144 H 175 H Pulse Rate [ Anterior Bilateral Throughout] Pulse Rate [ From Monitor] Respiratory 22 22 26 H Rate Respiratory Rate [Anterior Bilateral Throughout] Blood Pressure 128/66 128/66 136/71 O2 Sat by Pulse 97 97 96 Oximetry 02/07/19 02/07/19 02/07/19 02:45 03:00 03:15 Temperature Pulse Rate 179 H 178 H 196 H Pulse Rate [ Anterior Bilateral Throughout] Pulse Rate [ From Monitor] Respiratory 25 H 25 H 23 Rate Respiratory Rate [Anterior Bilateral Throughout] Blood Pressure 139/77 133/75 133/75 O2 Sat by Pulse 96 97 97 Oximetry 02/07/19 02/07/19 02/07/19 03:30 03:45 04:00 Temperature 100.0 F H Pulse Rate 176 H 173 H 167 H Pulse Rate [ Anterior Bilateral Throughout] Pulse Rate [ From Monitor] Respiratory 23 24 25 H Rate Respiratory Rate [Anterior Bilateral Throughout] Blood Pressure 110/74 110/74 134/88 O2 Sat by Pulse 97 97 97 Oximetry 02/07/19 02/07/19 02/07/19 04:15 04:30 04:45 Temperature Pulse Rate 142 H 145 H 156 H Pulse Rate [ Anterior Bilateral Throughout] Pulse Rate [ From Monitor] Respiratory 24 22 22 Rate Respiratory Rate [Anterior Bilateral Throughout] Blood Pressure 134/88 133/88 133/88 O2 Sat by Pulse 97 97 97 Oximetry 02/07/19 02/07/19 02/07/19 04:48 05:01 05:15 Temperature Pulse Rate 147 H 149 H 93 H Pulse Rate [ Anterior Bilateral Throughout] Pulse Rate [ From Monitor] Respiratory 21 24 Rate Respiratory Rate [Anterior Bilateral Throughout] Blood Pressure 148/103 148/103 145/83 O2 Sat by Pulse 97 97 97 Oximetry 02/07/19 02/07/19 02/07/19 05:30 05:45 06:00 Temperature Pulse Rate 93 H 93 H 97 H Pulse Rate [ Anterior Bilateral Throughout] Pulse Rate [ From Monitor] Respiratory 21 24 22 Rate Respiratory Rate [Anterior Bilateral Throughout] Blood Pressure 131/83 136/85 141/82 O2 Sat by Pulse 97 97 97 Oximetry 02/07/19 02/07/19 02/07/19 06:30 07:00 07:30 Temperature Pulse Rate 89 91 H 96 H Pulse Rate [ Anterior Bilateral Throughout] Pulse Rate [ From Monitor] Respiratory 21 22 27 H Rate Respiratory Rate [Anterior Bilateral Throughout] Blood Pressure 133/82 142/82 140/86 O2 Sat by Pulse 97 97 97 Oximetry 02/07/19 02/07/19 02/07/19 07:41 07:47 08:00 Temperature 99.4 F Pulse Rate 107 H 108 H Pulse Rate [ 101 H Anterior Bilateral Throughout] Pulse Rate [ 107 H From Monitor] Respiratory 22 21 Rate Respiratory 22 Rate [Anterior Bilateral Throughout] Blood Pressure 140/86 145/85 O2 Sat by Pulse 98 100 Oximetry 02/07/19 02/07/19 02/07/19 08:31 09:01 09:30 Temperature Pulse Rate 137 H 99 H 91 H Pulse Rate [ Anterior Bilateral Throughout] Pulse Rate [ From Monitor] Respiratory 42 H 26 H 21 Rate Respiratory Rate [Anterior Bilateral Throughout] Blood Pressure 154/78 156/86 159/90 O2 Sat by Pulse 96 97 98 Oximetry 02/07/19 02/07/19 02/07/19 10:00 10:31 11:01 Temperature Pulse Rate 106 H 102 H 99 H Pulse Rate [ Anterior Bilateral Throughout] Pulse Rate [ From Monitor] Respiratory 27 H 22 26 H Rate Respiratory Rate [Anterior Bilateral Throughout] Blood Pressure 172/101 161/87 139/93 O2 Sat by Pulse 98 98 98 Oximetry 02/07/19 02/07/19 12:00 12:10 Temperature 98.6 F Pulse Rate 100 H Pulse Rate [ Anterior Bilateral Throughout] Pulse Rate [ From Monitor] Respiratory 30 H Rate Respiratory Rate [Anterior Bilateral Throughout] Blood Pressure 143/113 O2 Sat by Pulse 97 Oximetry Constitutional: comatose, other (orally intubated on mechanical ventilator.) Eyes: non-icteric ENT: oropharynx moist Neck: supple Effort: normal Ascultation: Bilateral: other (coarse BS bilaterally improved) Cardiovascular: other (tachy, RR; no mrg) Gastrointestinal: normoactive bowel sounds, soft, non-tender, non-distended Integumentary: normal Extremities: no cyanosis, no edema, pink and warm Neurologic: unable to assess (due to sedation) Psychiatric: other (unable to assess) CBC and BMP: 02/07/19 08:22 02/07/19 01:07 ABG, PT/INR, D-dimer: ABG POC ABG pH 7.477 (7.35-7.45) H 02/07/19 10:58 ABG pH 7.442 pH Units (7.350-7.450) 02/07/19 04:15 POC ABG pCO2 34.8 (35-45) L 02/07/19 10:58 ABG pCO2 33.7 mm Hg 02/07/19 04:15 POC ABG pO2 118 (80-105) H 02/07/19 10:58 ABG pO2 87.7 mm Hg (80.0-90.0) 02/07/19 04:15 POC ABG HCO3 25.8 (22-26 mml/L) 02/07/19 10:58 POC ABG Total CO2 27 (23-27mmol/L) 02/07/19 10:58 POC ABG O2 Sat 99 02/07/19 10:58 ABG O2 Saturation 96.9 % (95.0-99.0) 02/07/19 04:15 PT/INR, D-dimer PT 16.3 Sec. (12.2-14.9) H 02/06/19 07:35 INR 1.35 (0.87-1.13) H 02/06/19 07:35 Abnormal lab findings: Abnormal Labs 02/01/19 02/01/19 02/01/19 07:16 07:16 07:16 WBC 17.7 H RBC Hgb Hct RDW 16.9 H Plt Count 62 L Seg Neuts % (Manual) 95.0 H Lymphocytes % (Manual) 0 L Seg Neutrophils # Man 16.8 H Lymphocytes # (Manual) 0.0 L PT 15.0 H INR 1.21 H APTT Thrombin Time 20.0 H POC ABG pH ABG pH POC ABG pCO2 POC ABG pO2 ABG HCO3 ABG Base Excess ABG Hemoglobin Oxyhemoglobin Sodium 135 L Potassium Chloride 97.7 L Carbon Dioxide 19 L BUN 51 H Creatinine 4.5 H Glucose 112 H POC Glucose Lactic Acid Calcium Iron TIBC Direct Bilirubin AST Troponin T 0.181 H* C-Reactive Protein Total Protein Albumin LDL Cholesterol Direct 34 L HDL Cholesterol 20 L Vitamin B12 Folate TSH Urine WBC (Auto) Complement C3 Complement C4 02/01/19 02/01/19 02/01/19 07:29 07:29 07:43 WBC RBC Hgb Hct RDW Plt Count Seg Neuts % (Manual) Lymphocytes % (Manual) Seg Neutrophils # Man Lymphocytes # (Manual) PT INR APTT Thrombin Time POC ABG pH ABG pH POC ABG pCO2 POC ABG pO2 ABG HCO3 ABG Base Excess ABG Hemoglobin Oxyhemoglobin Sodium Potassium Chloride Carbon Dioxide BUN Creatinine Glucose POC Glucose Lactic Acid 4.80 H* Calcium Iron TIBC Direct Bilirubin 0.7 H AST 42 H Troponin T C-Reactive Protein Total Protein 8.9 H Albumin 2.3 L LDL Cholesterol Direct HDL Cholesterol Vitamin B12 Folate TSH 8.470 H Urine WBC (Auto) Complement C3 Complement C4 02/01/19 02/01/19 02/01/19 09:45 11:32 13:50 WBC RBC Hgb Hct RDW Plt Count Seg Neuts % (Manual) Lymphocytes % (Manual) Seg Neutrophils # Man Lymphocytes # (Manual) PT INR APTT Thrombin Time POC ABG pH 7.289 L ABG pH POC ABG pCO2 POC ABG pO2 355 H ABG HCO3 ABG Base Excess ABG Hemoglobin Oxyhemoglobin Sodium Potassium Chloride Carbon Dioxide BUN Creatinine Glucose POC Glucose Lactic Acid 4.10 H* Calcium Iron TIBC Direct Bilirubin AST Troponin T C-Reactive Protein Total Protein Albumin LDL Cholesterol Direct HDL Cholesterol Vitamin B12 Folate TSH Urine WBC (Auto) 16.0 H Complement C3 Complement C4 02/01/19 02/01/19 02/01/19 15:15 16:20 16:51 WBC RBC Hgb Hct RDW Plt Count Seg Neuts % (Manual) Lymphocytes % (Manual) Seg Neutrophils # Man Lymphocytes # (Manual) PT INR APTT Thrombin Time POC ABG pH ABG pH POC ABG pCO2 POC ABG pO2 ABG HCO3 ABG Base Excess ABG Hemoglobin Oxyhemoglobin Sodium Potassium Chloride Carbon Dioxide BUN Creatinine Glucose POC Glucose 115 H Lactic Acid 4.50 H* Calcium Iron TIBC Direct Bilirubin AST Troponin T C-Reactive Protein Total Protein Albumin LDL Cholesterol Direct HDL Cholesterol Vitamin B12 Folate TSH Urine WBC (Auto) Complement C3 36 L Complement C4 02/01/19 02/01/19 02/01/19 16:51 17:03 17:04 WBC RBC Hgb Hct RDW Plt Count Seg Neuts % (Manual) Lymphocytes % (Manual) Seg Neutrophils # Man Lymphocytes # (Manual) PT INR APTT Thrombin Time POC ABG pH ABG pH POC ABG pCO2 POC ABG pO2 ABG HCO3 ABG Base Excess ABG Hemoglobin Oxyhemoglobin Sodium Potassium Chloride Carbon Dioxide BUN Creatinine Glucose POC Glucose Lactic Acid 2.80 H* Calcium Iron TIBC Direct Bilirubin AST Troponin T C-Reactive Protein 32.30 H Total Protein Albumin LDL Cholesterol Direct HDL Cholesterol Vitamin B12 Folate TSH Urine WBC (Auto) Complement C3 Complement C4 12 L 02/01/19 02/02/19 02/02/19 19:28 05:16 05:53 WBC 14.3 H RBC Hgb Hct RDW 16.9 H Plt Count 43 L Seg Neuts % (Manual) 93.0 H Lymphocytes % (Manual) 2.0 L Seg Neutrophils # Man 13.3 H Lymphocytes # (Manual) 0.3 L PT INR APTT Thrombin Time POC ABG pH ABG pH POC ABG pCO2 POC ABG pO2 148 H ABG HCO3 ABG Base Excess ABG Hemoglobin Oxyhemoglobin Sodium Potassium Chloride 107.1 H Carbon Dioxide 18 L BUN 52 H Creatinine 3.1 H Glucose 120 H POC Glucose Lactic Acid Calcium 7.4 L Iron TIBC Direct Bilirubin AST Troponin T C-Reactive Protein Total Protein Albumin LDL Cholesterol Direct HDL Cholesterol Vitamin B12 Folate TSH Urine WBC (Auto) Complement C3 Complement C4 02/02/19 02/03/19 02/03/19 05:53 03:30 03:30 WBC RBC 5.16 H Hgb 14.9 H Hct 46.2 H D RDW 17.0 H Plt Count 18 L* Seg Neuts % (Manual) Lymphocytes % (Manual) Seg Neutrophils # Man Lymphocytes # (Manual) PT INR APTT Thrombin Time POC ABG pH ABG pH POC ABG pCO2 POC ABG pO2 ABG HCO3 ABG Base Excess ABG Hemoglobin Oxyhemoglobin Sodium Potassium 5.1 H Chloride Carbon Dioxide 21 L BUN 57 H 65 H Creatinine 3.3 H 2.7 H Glucose 147 H 117 H POC Glucose Lactic Acid Calcium 7.5 L 7.2 L Iron TIBC Direct Bilirubin AST 51 H Troponin T C-Reactive Protein Total Protein Albumin 1.6 L LDL Cholesterol Direct HDL Cholesterol Vitamin B12 Folate TSH Urine WBC (Auto) Complement C3 Complement C4 02/03/19 02/03/19 02/03/19 05:55 14:42 14:42 WBC RBC Hgb Hct RDW Plt Count Seg Neuts % (Manual) Lymphocytes % (Manual) Seg Neutrophils # Man Lymphocytes # (Manual) PT INR APTT Thrombin Time POC ABG pH ABG pH POC ABG pCO2 POC ABG pO2 117 H ABG HCO3 ABG Base Excess ABG Hemoglobin Oxyhemoglobin Sodium Potassium Chloride Carbon Dioxide BUN Creatinine Glucose POC Glucose Lactic Acid Calcium Iron 11 L TIBC 88 L Direct Bilirubin AST Troponin T C-Reactive Protein Total Protein Albumin LDL Cholesterol Direct HDL Cholesterol Vitamin B12 1468 H Folate TSH Urine WBC (Auto) Complement C3 Complement C4 02/03/19 02/03/19 02/03/19 14:42 14:42 14:42 WBC RBC 3.17 L 3.22 L Hgb 9.4 L D 9.5 L Hct 28.3 L D 28.5 L RDW 16.9 H 16.4 H Plt Count 18 L* 18 L* Seg Neuts % (Manual) Lymphocytes % (Manual) Seg Neutrophils # Man Lymphocytes # (Manual) PT INR APTT Thrombin Time POC ABG pH ABG pH POC ABG pCO2 POC ABG pO2 ABG HCO3 ABG Base Excess ABG Hemoglobin Oxyhemoglobin Sodium Potassium Chloride Carbon Dioxide BUN Creatinine Glucose POC Glucose Lactic Acid Calcium Iron TIBC Direct Bilirubin AST Troponin T C-Reactive Protein Total Protein Albumin LDL Cholesterol Direct HDL Cholesterol Vitamin B12 Folate 5.18 L TSH Urine WBC (Auto) Complement C3 Complement C4 02/03/19 02/04/19 02/04/19 14:42 03:35 05:02 WBC RBC Hgb Hct RDW 16.5 H Plt Count 20 L Seg Neuts % (Manual) 94.0 H Lymphocytes % (Manual) 2.0 L Seg Neutrophils # Man 9.2 H Lymphocytes # (Manual) 0.2 L PT 15.8 H INR 1.29 H APTT 38.2 H Thrombin Time POC ABG pH ABG pH 7.470 H POC ABG pCO2 POC ABG pO2 ABG HCO3 28.4 H ABG Base Excess 4.5 H ABG Hemoglobin 10.1 L Oxyhemoglobin 94.7 L Sodium Potassium Chloride Carbon Dioxide BUN Creatinine Glucose POC Glucose Lactic Acid Calcium Iron TIBC Direct Bilirubin AST Troponin T C-Reactive Protein Total Protein Albumin LDL Cholesterol Direct HDL Cholesterol Vitamin B12 Folate TSH Urine WBC (Auto) Complement C3 Complement C4 02/04/19 02/05/19 02/05/19 05:02 03:50 13:02 WBC 11.7 H RBC 3.48 L Hgb 10.0 L Hct RDW 16.3 H Plt Count 50 L D Seg Neuts % (Manual) 95.0 H Lymphocytes % (Manual) 0 L Seg Neutrophils # Man 11.1 H Lymphocytes # (Manual) 0.0 L PT INR APTT Thrombin Time POC ABG pH ABG pH 7.485 H POC ABG pCO2 POC ABG pO2 ABG HCO3 27.5 H ABG Base Excess 3.9 H ABG Hemoglobin 9.1 L Oxyhemoglobin 94.8 L Sodium Potassium Chloride Carbon Dioxide BUN 66 H Creatinine 1.7 H Glucose 127 H POC Glucose Lactic Acid Calcium 7.6 L Iron TIBC Direct Bilirubin AST Troponin T C-Reactive Protein Total Protein Albumin LDL Cholesterol Direct HDL Cholesterol Vitamin B12 Folate TSH Urine WBC (Auto) Complement C3 Complement C4 02/05/19 02/05/19 02/06/19 14:36 20:03 05:39 WBC RBC 3.24 L Hgb 9.4 L Hct 29.2 L RDW 16.3 H Plt Count 71 L Seg Neuts % (Manual) 95.0 H Lymphocytes % (Manual) 2.0 L Seg Neutrophils # Man 10.2 H Lymphocytes # (Manual) 0.2 L PT INR APTT Thrombin Time POC ABG pH ABG pH POC ABG pCO2 POC ABG pO2 ABG HCO3 ABG Base Excess ABG Hemoglobin Oxyhemoglobin Sodium Potassium Chloride Carbon Dioxide BUN 67 H Creatinine 1.5 H Glucose POC Glucose 107 H Lactic Acid Calcium 7.7 L Iron TIBC Direct Bilirubin AST Troponin T C-Reactive Protein Total Protein Albumin LDL Cholesterol Direct HDL Cholesterol Vitamin B12 Folate TSH Urine WBC (Auto) Complement C3 Complement C4 02/06/19 02/06/19 02/06/19 07:35 18:34 Unknown WBC RBC Hgb Hct RDW Plt Count Seg Neuts % (Manual) Lymphocytes % (Manual) Seg Neutrophils # Man Lymphocytes # (Manual) PT 16.3 H INR 1.35 H APTT Thrombin Time POC ABG pH ABG pH POC ABG pCO2 POC ABG pO2 ABG HCO3 ABG Base Excess ABG Hemoglobin 5.0 L Oxyhemoglobin 94.9 L Sodium Potassium Chloride Carbon Dioxide BUN Creatinine Glucose POC Glucose 121 H Lactic Acid Calcium Iron TIBC Direct Bilirubin AST Troponin T C-Reactive Protein Total Protein Albumin LDL Cholesterol Direct HDL Cholesterol Vitamin B12 Folate TSH Urine WBC (Auto) Complement C3 Complement C4 02/07/19 02/07/19 02/07/19 01:07 04:15 08:22 WBC RBC Hgb Hct RDW 16.0 H Plt Count 84 L Seg Neuts % (Manual) 97.0 H Lymphocytes % (Manual) 0 L Seg Neutrophils # Man 9.5 H Lymphocytes # (Manual) 0.0 L PT INR APTT Thrombin Time POC ABG pH ABG pH POC ABG pCO2 POC ABG pO2 ABG HCO3 ABG Base Excess ABG Hemoglobin Oxyhemoglobin 94.8 L Sodium 146 H Potassium Chloride Carbon Dioxide BUN 85 H Creatinine 1.8 H Glucose 163 H POC Glucose Lactic Acid Calcium 8.3 L Iron TIBC Direct Bilirubin AST Troponin T C-Reactive Protein Total Protein Albumin LDL Cholesterol Direct HDL Cholesterol Vitamin B12 Folate TSH Urine WBC (Auto) Complement C3 Complement C4 02/07/19 10:58 WBC RBC Hgb Hct RDW Plt Count Seg Neuts % (Manual) Lymphocytes % (Manual) Seg Neutrophils # Man Lymphocytes # (Manual) PT INR APTT Thrombin Time POC ABG pH 7.477 H ABG pH POC ABG pCO2 34.8 L POC ABG pO2 118 H ABG HCO3 ABG Base Excess ABG Hemoglobin Oxyhemoglobin Sodium Potassium Chloride Carbon Dioxide BUN Creatinine Glucose POC Glucose Lactic Acid Calcium Iron TIBC Direct Bilirubin AST Troponin T C-Reactive Protein Total Protein Albumin LDL Cholesterol Direct HDL Cholesterol Vitamin B12 Folate TSH Urine WBC (Auto) Complement C3 Complement C4
--- NOTE | 2019-02-07 12:53 | Consultation ---
History of Present Illness Consult date: 02/07/19 Requesting physician: AJAY MALIK Consult reason: atrial fibrillation, other (taryn) History of present illness: The pt is a 53 year old female with a past medical history of HTN and hypothyroid. She presented for evaluation of altered mental status on 02/01/2019. The pt is intubated and nonresponsive on evaluation and thus HPI is obtained per the chart. Pt's family noted pt to have an unsteady gait, fatigue and diso rientation. Pt's family called EMS and pt initially refused to come to the hospital. The patient went to bed and was noted to have decreased responsiveness and was subsequently brought to the ED via EMS. Following arrival to ED, pt developed respiratory failure and was intubated. Since admission, pt has been diagnosed with severe sepsis with Strep pneumoniae bacteremia, bilateral pneumonia, meningitis, right neck severe lymphadenopathy/? cellulitis, acute renal failure, ?Autoimmune disease, thrombocytopenia. Cardiology was initially consulted for TARYN in setting of bacteremia, ? PFO, ? pulmonic valve vegetation. TARYN was scheduled for this morning but pt developed AFib with RVR overnight and thus TARYN will be post-poned. TTE done 02/02/2019 showed EF 55-60%, mild to mod LVH, atrial septal aneurysm, aortic valve heavily calcified, dense mitral annular calcification, mild MR, mild TR, mild SC, bubble study suggestive of PFO, ? pulmonic valve vegetation. Past History Past Medical History: hypertension, hypothyroidism Past Surgical History: No surgical history Social history: full code. denies: smoking, alcohol abuse, prescription drug abuse Family history: stroke (father) Medications and Allergies Allergies Allergy/AdvReac Type Severity Reaction Status Date / Time No Known Allergies Allergy Verified 08/18/18 09:04 Home Medications Medication Instructions Recorded Confirmed Last Taken Type Levothyroxine [Synthroid] 112 mcg PO QAM 02/01/19 02/01/19 Unknown History Lisinopril [Zestril TAB] 40 mg PO QDAY 02/01/19 02/01/19 Unknown History amLODIPine [Norvasc] 10 mg PO DAILY 02/01/19 02/01/19 Unknown History cloNIDine [Catapres] 1 mg PO QDAY 02/01/19 02/01/19 Unknown History Active Meds: Active Medications Acetaminophen (Tylenol) 650 mg PO Q4H PRN PRN Reason: Pain MILD(1-3)/Fever >100.5/VALENZUELA Last Admin: 02/05/19 16:46 Dose: 650 mg Documented by: Albuterol (Proventil) 2.5 mg IH Q4HRT PRN PRN Reason: Shortness Of Breath Albuterol/Ipratropium (Duoneb *Not For Prn Use*) 1 ampul IH Q6HRT AMOL Last Admin: 02/07/19 07:50 Dose: 1 ampul Documented by: Lipase/Protease/Amylase (Carola Hammond 10,500 Unit) 1 each FEEDTUBE PRN PRN PRN Reason: For Clogged Feeding Tube Famotidine (Pepcid) 20 mg PO DAILY [facility] Last Admin: 02/07/19 10:38 Dose: 20 mg Documented by: Folic Acid (Folvite) 1 mg PO QDAY [facility] Last Admin: 02/07/19 10:37 Dose: 1 mg Documented by: Hydrophilic Ointment (Vaseline Lip Therapy) 1 applic TP Q2HR PRN PRN Reason: Dry Lips Last Admin: 02/02/19 16:50 Dose: 1 applic Documented by: Midazolam HCl 100 mg/ Sodium (Chloride) 100 mls @ 2 mls/hr IV TITR [facility]; Protocol Last Titration: 02/03/19 07:40 Dose: 0 mg/hr, 0 mls/hr Documented by: Ceftriaxone Sodium (Rocephin/Ns 2 Gm/100 Ml) 2 gm in 100 mls @ 200 mls/hr IV Q12HR AMOL; Protocol Last Admin: 02/07/19 10:37 Dose: 100 mls/hr Documented by: Methylprednisolone Sodium Succinate 1,000 mg/ Sodium Chloride 250 mls @ 250 mls/hr IV Q24H [facility] Last Infusion: 02/06/19 15:00 Dose: Infused Documented by: Diltiazem HCl (Cardizem/D5w 100mg/100ml) 100 mg in 100 mls @ 5 mls/hr IV TITR [facility]; Protocol Last Admin: 02/07/19 12:13 Dose: 5 mg/hr, 5 mls/hr Documented by: Levothyroxine Sodium (Synthroid) 125 mcg PO QAM [facility] Last Admin: 02/07/19 10:38 Dose: 125 mcg Documented by: Midazolam HCl (Versed) 2 mg IV Q10MIN PRN PRN Reason: Sedation Last Admin: 02/01/19 11:42 Dose: 2 mg Documented by: Morphine Sulfate (Morphine) 2 mg IV Q4H PRN PRN Reason: Pain, Moderate (4-6) Last Admin: 02/06/19 20:14 Dose: 2 mg Documented by: Multi-Ingred Cream/Lotion/Oil/Oint (Artificial Tears Ophth Oint) 1 applic OU Q4HR PRN PRN Reason: Dry Eye(s) Last Admin: 02/02/19 16:50 Dose: 1 applic Documented by: Multivitamins (Centrum Liq) 5 ml PO QDAY [facility] Last Admin: 02/07/19 10:37 Dose: 5 ml Documented by: Ondansetron HCl (Zofran) 4 mg IV Q8H PRN PRN Reason: Nausea And Vomiting Simple Syrup (Simple Syrup) 15 ml FEEDTUBE PRN PRN PRN Reason: Hypoglycemia Simple Syrup (Simple Syrup) 30 ml FEEDTUBE PRN PRN PRN Reason: Hypoglycemia Sodium Bicarbonate (Sodium Bicarbonate) 325 mg FEEDTUBE PRN PRN PRN Reason: For Clogged Feeding Tube Sodium Chloride (Sodium Chloride Flush Syringe 10 Ml) 10 ml IV BID [facility] Last Admin: 02/07/19 10:45 Dose: 10 ml Documented by: Sodium Chloride (Sodium Chloride Flush Syringe 10 Ml) 10 ml IV PRN PRN PRN Reason: LINE FLUSH Review of Systems ROS unobtainable: due to endotracheal tube, due to mental status Physical Examination Vital Signs Temp Pulse Resp BP Pulse Ox 101.8 F H 144 H 44 H 90/60 89 02/01/19 07:16 02/01/19 07:16 02/01/19 07:16 02/01/19 07:16 02/01/19 07:16 General appearance: other (intubated) Cardiac: Positive: irregularly irregular, S1/S2, Tachycardia Lungs: Positive: Rhonchi, Oxygen, Ventilated Respirations Neuro: Positive: Other (intubated, sedated) Results 02/07/19 08:22 02/07/19 01:07 CBC 02/06/19 02/07/19 Range/Units 21:44 08:22 WBC 9.8 (4.5-11.0) K/mm3 RBC 3.67 (3.65-5.03) M/mm3 Hgb 10.4 10.9 (10.1-14.3) gm/dl Hct 32.4 33.1 (30.3-42.9) % Plt Count 84 L (140-440) K/mm3 Comprehensive Metabolic Panel 02/07/19 Range/Units 01:07 Sodium 146 H (137-145) mmol/L Potassium 4.0 (3.6-5.0) mmol/L Chloride 107.0 (98-107) mmol/L Carbon Dioxide 22 (22-30) mmol/L BUN 85 H (7-17) mg/dL Creatinine 1.8 H (0.7-1.2) mg/dL Glucose 163 H (65-100) mg/dL Calcium 8.3 L (8.4-10.2) mg/dL - Imaging and Cardiology Echo: report reviewed ( 02/02/2019 showed EF 55-60%, mild to mod LVH, atrial septal aneurysm, aortic valve heavily calcified, dense mitral annular calcification, mild MR, mild TR, mild SC, bubble study suggestive of PFO, ? pulmonic valve vegetation.) EKG: report reviewed, image reviewed EKG interpretations - Telemetry EKG Rhythm: Atrial Fibrillation Assessment and Plan Pt with respiratory failure, severe sepsis with Strep pneumoniae bacteremia, bilateral pneumonia, meningitis, right neck severe lymphadenopathy/? cellulitis, acute renal failure, ?Autoimmune disease, thrombocytopenia. Cardiology was initially consulted for TARYN in setting of bacteremia, ? PFO, ? pulmonic valve vegetation. TARYN was scheduled for this morning but pt developed AFib with RVR overnight and thus TARYN will be post-poned. Optimize HR - pt was initiated on amio gtt overnight but she remains tachycardic. D/c amio gtt and initiate cardizem gtt. No systemic AC at this time in regards to AFib in setting of thrombocytopenia. Will plan for TARYN once HR is optimized - ? Tuesday. Further recs to follow per hospital course. The patient has been seen in conjunction with Dr. Santo who agrees with the assessment and plan of care. - Patient Problems (1) Sepsis Current Visit: Yes Status: Acute (2) Bacteremia Current Visit: Yes Status: Acute (3) Meningitis Current Visit: Yes Status: Acute (4) Pneumonia Current Visit: Yes Status: Acute (5) Acute respiratory failure Current Visit: Yes Status: Acute (6) Atrial fibrillation with RVR Current Visit: Yes Status: Acute (7) Altered mental status Current Visit: Yes Status: Acute (8) Cellulitis, neck Current Visit: Yes Status: Acute (9) Thrombocytopenia Current Visit: Yes Status: Acute (10) DIANA (acute kidney injury) Current Visit: Yes Status: Acute (11) PFO (patent foramen ovale) Current Visit: Yes Status: Suspected (12) Pulmonary valve vegetation Current Visit: Yes Status: Suspected
[2019-02-07] MEDS: methylPREDNISolone Sod Suc 1,000 MG in SODIUM CHLORIDE 0.9% 250ML 250 ML IV SCH (14:02)
--- NOTE | 2019-02-07 15:37 | Progress Note ---
Assessment and Plan SSevere sepsis with Strep pneumoniae bacteremia, pneumonia and meningitis: TTE showed some ?pulmonic valve vegetation. Awaiting TERRENCE. CSF shows WBC 1250, RBC 30, PMN 30%, Glucose 38, Protein 140. Right neck severe lymphadenopathy: CT neck was without contrast, hence limited eval of vasculature. Neck US revealed extensive R neck lymphadenopathy, no abscess. HIV, RPR negative. Bartonella serologies pending. Today, patient's mother showed me paperwork from patient's PCP, patient was seen on 01/30/2019 at PCP office for R neck lump, was given medrol dose kevin and ultrasound was ordered. Once creatinine improves further, may need CT chest, abdomen pelvis with IV contrast to evaluate for other lymphadenopathy. Bilateral pneumonia: sputum culture also growing Strep, likely Strep pneumoniae. Thrombocytopenia likely due to sepsis or autoimmune phenomenon, hematology input appreciated, hiv-negative, fibrinogen level is not low, PT PTT is normal. Status post platelet transfusion, improved Acute kidney injury Due to ATN Renal function improving IV fluids Nephrology input appreciated History of lupus? families is unclear on this medical history, but know that she has some form of autoimmune disease Complement levels are reduced, CHESTER is pending. Started on steroids, should be tapered based on clinical presentation, still jaime spects but they may be an elements of [employer] vasculitis Acute metabolic encephalopathy Likely due to sepsis, obtain eeg, neurology appreciated MRI and MRA head pending. But at this time cannot be done as patient is on continuous fluids and on vent. 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 If MRI and able to be done, will consider transferring his patients to a higher level facility such as [place] Acute respiratory failure on MV > 96 hours cont vent per pulmonology Type 2 MD - cardiology input appreciated, rx the underlying cause Hypothyroidism TSH elevated, synthroid dose increased -repeat TFTs in 4-6 wks The high probability of a clinically significant, sudden or life threatening deterioration of the [CV, Neurology, renal] system(s) required my full and direct attention, intervention and personal management. The aggregate critical care time was [45] minutes. This time is in addition to time spent performing reported procedures but includes the following: [x] Data Review and interpretation [x] Patient assessment and monitoring of vital signs [x] Documentation [x] Medication orders and management Subjective Date of service: 02/07/19 Principal diagnosis: septic shock Interval history: 53 year old woman who was brought in by her family for unsteady gait, fatigue, and withdrawal behavior.Throughout that night she was having difficulty expressing herself. . She became more disoriented and less responsive prompting family to bring her to the emergency room Objective - Constitutional Vitals: Vital Signs - 12hr 02/07/19 02/07/19 02/07/19 03:45 04:00 04:15 Temperature 100.0 F H Pulse Rate 173 H 167 H 142 H Pulse Rate [ Anterior Bilateral Throughout] Pulse Rate [ From Monitor] Respiratory 24 25 H 24 Rate Respiratory Rate [Anterior Bilateral Throughout] Blood Pressure 110/74 134/88 134/88 O2 Sat by Pulse 97 97 97 Oximetry 02/07/19 02/07/19 02/07/19 04:30 04:45 04:48 Temperature Pulse Rate 145 H 156 H 147 H Pulse Rate [ Anterior Bilateral Throughout] Pulse Rate [ From Monitor] Respiratory 22 22 Rate Respiratory Rate [Anterior Bilateral Throughout] Blood Pressure 133/88 133/88 148/103 O2 Sat by Pulse 97 97 97 Oximetry 02/07/19 02/07/19 02/07/19 05:01 05:15 05:30 Temperature Pulse Rate 149 H 93 H 93 H Pulse Rate [ Anterior Bilateral Throughout] Pulse Rate [ From Monitor] Respiratory 21 24 21 Rate Respiratory Rate [Anterior Bilateral Throughout] Blood Pressure 148/103 145/83 131/83 O2 Sat by Pulse 97 97 97 Oximetry 02/07/19 02/07/19 02/07/19 05:45 06:00 06:30 Temperature Pulse Rate 93 H 97 H 89 Pulse Rate [ Anterior Bilateral Throughout] Pulse Rate [ From Monitor] Respiratory 24 22 21 Rate Respiratory Rate [Anterior Bilateral Throughout] Blood Pressure 136/85 141/82 133/82 O2 Sat by Pulse 97 97 97 Oximetry 02/07/19 02/07/19 02/07/19 07:00 07:30 07:41 Temperature Pulse Rate 91 H 96 H 107 H Pulse Rate [ Anterior Bilateral Throughout] Pulse Rate [ From Monitor] Respiratory 22 27 H 22 Rate Respiratory Rate [Anterior Bilateral Throughout] Blood Pressure 142/82 140/86 140/86 O2 Sat by Pulse 97 97 98 Oximetry 02/07/19 02/07/19 02/07/19 07:47 08:00 08:31 Temperature 99.4 F Pulse Rate 108 H 137 H Pulse Rate [ 101 H Anterior Bilateral Throughout] Pulse Rate [ 107 H From Monitor] Respiratory 21 42 H Rate Respiratory 22 Rate [Anterior Bilateral Throughout] Blood Pressure 145/85 154/78 O2 Sat by Pulse 100 96 Oximetry 02/07/19 02/07/19 02/07/19 09:01 09:30 10:00 Temperature Pulse Rate 99 H 91 H 106 H Pulse Rate [ Anterior Bilateral Throughout] Pulse Rate [ From Monitor] Respiratory 26 H 21 27 H Rate Respiratory Rate [Anterior Bilateral Throughout] Blood Pressure 156/86 159/90 172/101 O2 Sat by Pulse 97 98 98 Oximetry 02/07/19 02/07/19 02/07/19 10:31 11:01 12:00 Temperature 98.6 F Pulse Rate 102 H 99 H Pulse Rate [ Anterior Bilateral Throughout] Pulse Rate [ From Monitor] Respiratory 22 26 H Rate Respiratory Rate [Anterior Bilateral Throughout] Blood Pressure 161/87 139/93 O2 Sat by Pulse 98 98 Oximetry 02/07/19 02/07/19 02/07/19 12:10 12:11 14:04 Temperature Pulse Rate 100 H 168 H Pulse Rate [ 100 H Anterior Bilateral Throughout] Pulse Rate [ From Monitor] Respiratory 30 H Rate Respiratory 24 Rate [Anterior Bilateral Throughout] Blood Pressure 143/113 143/113 O2 Sat by Pulse 97 Oximetry 02/07/19 15:22 Temperature Pulse Rate 168 H Pulse Rate [ Anterior Bilateral Throughout] Pulse Rate [ From Monitor] Respiratory Rate Respiratory Rate [Anterior Bilateral Throughout] Blood Pressure O2 Sat by Pulse 97 Oximetry General appearance: Present: no acute distress, well-nourished - EENT Eyes: PERRL, EOM intact ENT: hearing intact, clear oral mucosa Ears: bilateral: normal - Neck Neck: supple, normal ROM - Respiratory Respiratory effort: normal Respiratory: bilateral: CTA - Breasts Breasts: normal - Cardiovascular Heart rate: 88 Rhythm: regular Heart Sounds: Present: S1 & S2. Absent: gallop, rub Extremities: pulses intact, No edema, normal color, Full ROM - Gastrointestinal General gastrointestinal: Present: soft, non-tender, non-distended, normal bowel sounds - Genitourinary Female genitourinary: normal - Integumentary Integumentary: clear, warm, dry - Musculoskeletal Musculoskeletal: 1, strength equal bilaterally - Neurologic Neurologic: moves all extremities - Psychiatric Psychiatric: memory intact, appropriate mood/affect, intact judgment & insight - Labs CBC & Chem 7: 02/07/19 08:22 02/07/19 01:07 Labs: Abnormal lab results 02/06/19 02/07/19 02/07/19 Range/Units 18:34 01:07 04:15 RDW (13.2-15.2) % Plt Count (140-440) K/mm3 Seg Neuts % (Manual) (40.0-70.0) % Lymphocytes % (Manual) (13.4-35.0) % Seg Neutrophils # Man (1.8-7.7) K/mm3 Lymphocytes # (Manual) (1.2-5.4) K/mm3 POC ABG pH (7.35-7.45) POC ABG pCO2 (35-45) POC ABG pO2 (80-105) Oxyhemoglobin 94.8 L (95.0-99.0) % Sodium 146 H (137-145) mmol/L BUN 85 H (7-17) mg/dL Creatinine 1.8 H (0.7-1.2) mg/dL Glucose 163 H (65-100) mg/dL POC Glucose 121 H (70-105) Calcium 8.3 L (8.4-10.2) mg/dL 02/07/19 02/07/19 Range/Units 08:22 10:58 RDW 16.0 H (13.2-15.2) % Plt Count 84 L (140-440) K/mm3 Seg Neuts % (Manual) 97.0 H (40.0-70.0) % Lymphocytes % (Manual) 0 L (13.4-35.0) % Seg Neutrophils # Man 9.5 H (1.8-7.7) K/mm3 Lymphocytes # (Manual) 0.0 L (1.2-5.4) K/mm3 POC ABG pH 7.477 H (7.35-7.45) POC ABG pCO2 34.8 L (35-45) POC ABG pO2 118 H (80-105) Oxyhemoglobin (95.0-99.0) % Sodium (137-145) mmol/L BUN (7-17) mg/dL Creatinine (0.7-1.2) mg/dL Glucose (65-100) mg/dL POC Glucose (70-105) Calcium (8.4-10.2) mg/dL
[2019-02-07] MEDS: MORPHINE 2 MG/1 ML INJ IV PRN (16:09)
--- NOTE | 2019-02-07 18:01 | Progress Note ---
Assessment and Plan Septic shock Meningitis Pt went into a fib today so TERRENCE was postponed REcommend: Await CSF cultures ID following and directing antibiotic management EEG, MRI pending Further recommendations once more test results are available Guarded prognosis Subjective Date of service: 02/07/19 Principal diagnosis: septic shock Interval history: Pt opening eyes today but not tracking. Eyes to the right. Objective - Vital Sign Vital Signs - 12hr 02/07/19 02/07/19 02/07/19 06:00 06:30 07:00 Temperature Pulse Rate 97 H 89 91 H Pulse Rate [ Anterior Bilateral Throughout] Pulse Rate [ From Monitor] Respiratory 22 21 22 Rate Respiratory Rate [Anterior Bilateral Throughout] Blood Pressure 141/82 133/82 142/82 O2 Sat by Pulse 97 97 97 Oximetry 02/07/19 02/07/19 02/07/19 07:30 07:41 07:47 Temperature Pulse Rate 96 H 107 H Pulse Rate [ 101 H Anterior Bilateral Throughout] Pulse Rate [ From Monitor] Respiratory 27 H 22 Rate Respiratory 22 Rate [Anterior Bilateral Throughout] Blood Pressure 140/86 140/86 O2 Sat by Pulse 97 98 Oximetry 02/07/19 02/07/19 02/07/19 08:00 08:31 09:01 Temperature 99.4 F Pulse Rate 108 H 137 H 99 H Pulse Rate [ Anterior Bilateral Throughout] Pulse Rate [ 107 H From Monitor] Respiratory 21 42 H 26 H Rate Respiratory Rate [Anterior Bilateral Throughout] Blood Pressure 145/85 154/78 156/86 O2 Sat by Pulse 100 96 97 Oximetry 02/07/19 02/07/19 02/07/19 09:30 10:00 10:31 Temperature Pulse Rate 91 H 106 H 102 H Pulse Rate [ Anterior Bilateral Throughout] Pulse Rate [ From Monitor] Respiratory 21 27 H 22 Rate Respiratory Rate [Anterior Bilateral Throughout] Blood Pressure 159/90 172/101 161/87 O2 Sat by Pulse 98 98 98 Oximetry 02/07/19 02/07/19 02/07/19 11:01 11:31 12:00 Temperature 98.6 F Pulse Rate 99 H 156 H 156 H Pulse Rate [ Anterior Bilateral Throughout] Pulse Rate [ From Monitor] Respiratory 26 H 28 H 32 H Rate Respiratory Rate [Anterior Bilateral Throughout] Blood Pressure 139/93 152/95 154/107 O2 Sat by Pulse 98 98 98 Oximetry 02/07/19 02/07/19 02/07/19 12:10 12:11 12:30 Temperature Pulse Rate 100 H 168 H 90 Pulse Rate [ Anterior Bilateral Throughout] Pulse Rate [ From Monitor] Respiratory 30 H 22 Rate Respiratory Rate [Anterior Bilateral Throughout] Blood Pressure 143/113 143/113 143/87 O2 Sat by Pulse 97 98 Oximetry 02/07/19 02/07/19 02/07/19 13:00 13:31 14:01 Temperature Pulse Rate 98 H 104 H 103 H Pulse Rate [ Anterior Bilateral Throughout] Pulse Rate [ From Monitor] Respiratory 26 H 25 H 27 H Rate Respiratory Rate [Anterior Bilateral Throughout] Blood Pressure 149/87 156/81 148/76 O2 Sat by Pulse 98 98 98 Oximetry 02/07/19 02/07/19 02/07/19 14:04 14:31 15:01 Temperature Pulse Rate 136 H 116 H Pulse Rate [ 100 H Anterior Bilateral Throughout] Pulse Rate [ From Monitor] Respiratory 33 H 34 H Rate Respiratory 24 Rate [Anterior Bilateral Throughout] Blood Pressure 171/102 167/83 O2 Sat by Pulse 98 97 Oximetry 02/07/19 02/07/19 02/07/19 15:22 15:31 16:00 Temperature Pulse Rate 168 H 104 H Pulse Rate [ Anterior Bilateral Throughout] Pulse Rate [ 104 H From Monitor] Respiratory 34 H 29 H Rate Respiratory Rate [Anterior Bilateral Throughout] Blood Pressure 158/95 O2 Sat by Pulse 97 96 96 Oximetry 02/07/19 02/07/19 02/07/19 16:01 16:09 16:30 Temperature Pulse Rate 102 H 96 H Pulse Rate [ Anterior Bilateral Throughout] Pulse Rate [ From Monitor] Respiratory 35 H 32 H 30 H Rate Respiratory Rate [Anterior Bilateral Throughout] Blood Pressure 161/98 151/95 O2 Sat by Pulse 96 97 Oximetry 02/07/19 02/07/19 16:39 17:00 Temperature Pulse Rate 96 H Pulse Rate [ Anterior Bilateral Throughout] Pulse Rate [ From Monitor] Respiratory 29 H 29 H Rate Respiratory Rate [Anterior Bilateral Throughout] Blood Pressure 156/91 O2 Sat by Pulse 97 Oximetry - General Apperance Constitutional: comfortable - EENT EENT: PERRL, mucous membranes moist - Respiratory Respiratory: lungs clear - Neurologic Cranial nerve examination: PERRL, face symmetric Motor examination - right side: 06/24: biceps, triceps, wrist flexion, wrist extension, boat rigger, hip flexors, knee extensors, dorsiflexion, toe extension (EHL), plantarflexion Motor examination - left side: 06/24: biceps, triceps, wrist flexion, wrist extension, boat rigger, hip flexors, knee extensors, dorsiflexion, toe extension (EHL), plantarflexion - Laboratory Findings CBC and BMP: 02/07/19 08:22 02/07/19 01:07 Abnormal Lab Findings: Abnormal Labs 02/01/19 02/01/19 02/01/19 07:16 07:16 07:16 WBC 17.7 H RBC Hgb Hct RDW 16.9 H Plt Count 62 L Seg Neuts % (Manual) 95.0 H Lymphocytes % (Manual) 0 L Seg Neutrophils # Man 16.8 H Lymphocytes # (Manual) 0.0 L PT 15.0 H INR 1.21 H APTT Thrombin Time 20.0 H POC ABG pH ABG pH POC ABG pCO2 POC ABG pO2 ABG HCO3 ABG Base Excess ABG Hemoglobin Oxyhemoglobin Sodium 135 L Potassium Chloride 97.7 L Carbon Dioxide 19 L BUN 51 H Creatinine 4.5 H Glucose 112 H POC Glucose Lactic Acid Calcium Iron TIBC Direct Bilirubin AST Troponin T 0.181 H* C-Reactive Protein Total Protein Albumin LDL Cholesterol Direct 34 L HDL Cholesterol 20 L Vitamin B12 Folate TSH Urine WBC (Auto) Complement C3 Complement C4 02/01/19 02/01/19 02/01/19 07:29 07:29 07:43 WBC RBC Hgb Hct RDW Plt Count Seg Neuts % (Manual) Lymphocytes % (Manual) Seg Neutrophils # Man Lymphocytes # (Manual) PT INR APTT Thrombin Time POC ABG pH ABG pH POC ABG pCO2 POC ABG pO2 ABG HCO3 ABG Base Excess ABG Hemoglobin Oxyhemoglobin Sodium Potassium Chloride Carbon Dioxide BUN Creatinine Glucose POC Glucose Lactic Acid 4.80 H* Calcium Iron TIBC Direct Bilirubin 0.7 H AST 42 H Troponin T C-Reactive Protein Total Protein 8.9 H Albumin 2.3 L LDL Cholesterol Direct HDL Cholesterol Vitamin B12 Folate TSH 8.470 H Urine WBC (Auto) Complement C3 Complement C4 02/01/19 02/01/19 02/01/19 09:45 11:32 13:50 WBC RBC Hgb Hct RDW Plt Count Seg Neuts % (Manual) Lymphocytes % (Manual) Seg Neutrophils # Man Lymphocytes # (Manual) PT INR APTT Thrombin Time POC ABG pH 7.289 L ABG pH POC ABG pCO2 POC ABG pO2 355 H ABG HCO3 ABG Base Excess ABG Hemoglobin Oxyhemoglobin Sodium Potassium Chloride Carbon Dioxide BUN Creatinine Glucose POC Glucose Lactic Acid 4.10 H* Calcium Iron TIBC Direct Bilirubin AST Troponin T C-Reactive Protein Total Protein Albumin LDL Cholesterol Direct HDL Cholesterol Vitamin B12 Folate TSH Urine WBC (Auto) 16.0 H Complement C3 Complement C4 02/01/19 02/01/19 02/01/19 15:15 16:20 16:51 WBC RBC Hgb Hct RDW Plt Count Seg Neuts % (Manual) Lymphocytes % (Manual) Seg Neutrophils # Man Lymphocytes # (Manual) PT INR APTT Thrombin Time POC ABG pH ABG pH POC ABG pCO2 POC ABG pO2 ABG HCO3 ABG Base Excess ABG Hemoglobin Oxyhemoglobin Sodium Potassium Chloride Carbon Dioxide BUN Creatinine Glucose POC Glucose 115 H Lactic Acid 4.50 H* Calcium Iron TIBC Direct Bilirubin AST Troponin T C-Reactive Protein Total Protein Albumin LDL Cholesterol Direct HDL Cholesterol Vitamin B12 Folate TSH Urine WBC (Auto) Complement C3 36 L Complement C4 02/01/19 02/01/19 02/01/19 16:51 17:03 17:04 WBC RBC Hgb Hct RDW Plt Count Seg Neuts % (Manual) Lymphocytes % (Manual) Seg Neutrophils # Man Lymphocytes # (Manual) PT INR APTT Thrombin Time POC ABG pH ABG pH POC ABG pCO2 POC ABG pO2 ABG HCO3 ABG Base Excess ABG Hemoglobin Oxyhemoglobin Sodium Potassium Chloride Carbon Dioxide BUN Creatinine Glucose POC Glucose Lactic Acid 2.80 H* Calcium Iron TIBC Direct Bilirubin AST Troponin T C-Reactive Protein 32.30 H Total Protein Albumin LDL Cholesterol Direct HDL Cholesterol Vitamin B12 Folate TSH Urine WBC (Auto) Complement C3 Complement C4 12 L 02/01/19 02/02/19 02/02/19 19:28 05:16 05:53 WBC 14.3 H RBC Hgb Hct RDW 16.9 H Plt Count 43 L Seg Neuts % (Manual) 93.0 H Lymphocytes % (Manual) 2.0 L Seg Neutrophils # Man 13.3 H Lymphocytes # (Manual) 0.3 L PT INR APTT Thrombin Time POC ABG pH ABG pH POC ABG pCO2 POC ABG pO2 148 H ABG HCO3 ABG Base Excess ABG Hemoglobin Oxyhemoglobin Sodium Potassium Chloride 107.1 H Carbon Dioxide 18 L BUN 52 H Creatinine 3.1 H Glucose 120 H POC Glucose Lactic Acid Calcium 7.4 L Iron TIBC Direct Bilirubin AST Troponin T C-Reactive Protein Total Protein Albumin LDL Cholesterol Direct HDL Cholesterol Vitamin B12 Folate TSH Urine WBC (Auto) Complement C3 Complement C4 02/02/19 02/03/19 02/03/19 05:53 03:30 03:30 WBC RBC 5.16 H Hgb 14.9 H Hct 46.2 H D RDW 17.0 H Plt Count 18 L* Seg Neuts % (Manual) Lymphocytes % (Manual) Seg Neutrophils # Man Lymphocytes # (Manual) PT INR APTT Thrombin Time POC ABG pH ABG pH POC ABG pCO2 POC ABG pO2 ABG HCO3 ABG Base Excess ABG Hemoglobin Oxyhemoglobin Sodium Potassium 5.1 H Chloride Carbon Dioxide 21 L BUN 57 H 65 H Creatinine 3.3 H 2.7 H Glucose 147 H 117 H POC Glucose Lactic Acid Calcium 7.5 L 7.2 L Iron TIBC Direct Bilirubin AST 51 H Troponin T C-Reactive Protein Total Protein Albumin 1.6 L LDL Cholesterol Direct HDL Cholesterol Vitamin B12 Folate TSH Urine WBC (Auto) Complement C3 Complement C4 02/03/19 02/03/19 02/03/19 05:55 14:42 14:42 WBC RBC Hgb Hct RDW Plt Count Seg Neuts % (Manual) Lymphocytes % (Manual) Seg Neutrophils # Man Lymphocytes # (Manual) PT INR APTT Thrombin Time POC ABG pH ABG pH POC ABG pCO2 POC ABG pO2 117 H ABG HCO3 ABG Base Excess ABG Hemoglobin Oxyhemoglobin Sodium Potassium Chloride Carbon Dioxide BUN Creatinine Glucose POC Glucose Lactic Acid Calcium Iron 11 L TIBC 88 L Direct Bilirubin AST Troponin T C-Reactive Protein Total Protein Albumin LDL Cholesterol Direct HDL Cholesterol Vitamin B12 1468 H Folate TSH Urine WBC (Auto) Complement C3 Complement C4 02/03/19 02/03/19 02/03/19 14:42 14:42 14:42 WBC RBC 3.17 L 3.22 L Hgb 9.4 L D 9.5 L Hct 28.3 L D 28.5 L RDW 16.9 H 16.4 H Plt Count 18 L* 18 L* Seg Neuts % (Manual) Lymphocytes % (Manual) Seg Neutrophils # Man Lymphocytes # (Manual) PT INR APTT Thrombin Time POC ABG pH ABG pH POC ABG pCO2 POC ABG pO2 ABG HCO3 ABG Base Excess ABG Hemoglobin Oxyhemoglobin Sodium Potassium Chloride Carbon Dioxide BUN Creatinine Glucose POC Glucose Lactic Acid Calcium Iron TIBC Direct Bilirubin AST Troponin T C-Reactive Protein Total Protein Albumin LDL Cholesterol Direct HDL Cholesterol Vitamin B12 Folate 5.18 L TSH Urine WBC (Auto) Complement C3 Complement C4 02/03/19 02/04/19 02/04/19 14:42 03:35 05:02 WBC RBC Hgb Hct RDW 16.5 H Plt Count 20 L Seg Neuts % (Manual) 94.0 H Lymphocytes % (Manual) 2.0 L Seg Neutrophils # Man 9.2 H Lymphocytes # (Manual) 0.2 L PT 15.8 H INR 1.29 H APTT 38.2 H Thrombin Time POC ABG pH ABG pH 7.470 H POC ABG pCO2 POC ABG pO2 ABG HCO3 28.4 H ABG Base Excess 4.5 H ABG Hemoglobin 10.1 L Oxyhemoglobin 94.7 L Sodium Potassium Chloride Carbon Dioxide BUN Creatinine Glucose POC Glucose Lactic Acid Calcium Iron TIBC Direct Bilirubin AST Troponin T C-Reactive Protein Total Protein Albumin LDL Cholesterol Direct HDL Cholesterol Vitamin B12 Folate TSH Urine WBC (Auto) Complement C3 Complement C4 02/04/19 02/05/19 02/05/19 05:02 03:50 13:02 WBC 11.7 H RBC 3.48 L Hgb 10.0 L Hct RDW 16.3 H Plt Count 50 L D Seg Neuts % (Manual) 95.0 H Lymphocytes % (Manual) 0 L Seg Neutrophils # Man 11.1 H Lymphocytes # (Manual) 0.0 L PT INR APTT Thrombin Time POC ABG pH ABG pH 7.485 H POC ABG pCO2 POC ABG pO2 ABG HCO3 27.5 H ABG Base Excess 3.9 H ABG Hemoglobin 9.1 L Oxyhemoglobin 94.8 L Sodium Potassium Chloride Carbon Dioxide BUN 66 H Creatinine 1.7 H Glucose 127 H POC Glucose Lactic Acid Calcium 7.6 L Iron TIBC Direct Bilirubin AST Troponin T C-Reactive Protein Total Protein Albumin LDL Cholesterol Direct HDL Cholesterol Vitamin B12 Folate TSH Urine WBC (Auto) Complement C3 Complement C4 02/05/19 02/05/19 02/06/19 14:36 20:03 05:39 WBC RBC 3.24 L Hgb 9.4 L Hct 29.2 L RDW 16.3 H Plt Count 71 L Seg Neuts % (Manual) 95.0 H Lymphocytes % (Manual) 2.0 L Seg Neutrophils # Man 10.2 H Lymphocytes # (Manual) 0.2 L PT INR APTT Thrombin Time POC ABG pH ABG pH POC ABG pCO2 POC ABG pO2 ABG HCO3 ABG Base Excess ABG Hemoglobin Oxyhemoglobin Sodium Potassium Chloride Carbon Dioxide BUN 67 H Creatinine 1.5 H Glucose POC Glucose 107 H Lactic Acid Calcium 7.7 L Iron TIBC Direct Bilirubin AST Troponin T C-Reactive Protein Total Protein Albumin LDL Cholesterol Direct HDL Cholesterol Vitamin B12 Folate TSH Urine WBC (Auto) Complement C3 Complement C4 02/06/19 02/06/19 02/06/19 07:35 18:34 Unknown WBC RBC Hgb Hct RDW Plt Count Seg Neuts % (Manual) Lymphocytes % (Manual) Seg Neutrophils # Man Lymphocytes # (Manual) PT 16.3 H INR 1.35 H APTT Thrombin Time POC ABG pH ABG pH POC ABG pCO2 POC ABG pO2 ABG HCO3 ABG Base Excess ABG Hemoglobin 5.0 L Oxyhemoglobin 94.9 L Sodium Potassium Chloride Carbon Dioxide BUN Creatinine Glucose POC Glucose 121 H Lactic Acid Calcium Iron TIBC Direct Bilirubin AST Troponin T C-Reactive Protein Total Protein Albumin LDL Cholesterol Direct HDL Cholesterol Vitamin B12 Folate TSH Urine WBC (Auto) Complement C3 Complement C4 02/07/19 02/07/19 02/07/19 01:07 04:15 08:22 WBC RBC Hgb Hct RDW 16.0 H Plt Count 84 L Seg Neuts % (Manual) 97.0 H Lymphocytes % (Manual) 0 L Seg Neutrophils # Man 9.5 H Lymphocytes # (Manual) 0.0 L PT INR APTT Thrombin Time POC ABG pH ABG pH POC ABG pCO2 POC ABG pO2 ABG HCO3 ABG Base Excess ABG Hemoglobin Oxyhemoglobin 94.8 L Sodium 146 H Potassium Chloride Carbon Dioxide BUN 85 H Creatinine 1.8 H Glucose 163 H POC Glucose Lactic Acid Calcium 8.3 L Iron TIBC Direct Bilirubin AST Troponin T C-Reactive Protein Total Protein Albumin LDL Cholesterol Direct HDL Cholesterol Vitamin B12 Folate TSH Urine WBC (Auto) Complement C3 Complement C4 02/07/19 10:58 WBC RBC Hgb Hct RDW Plt Count Seg Neuts % (Manual) Lymphocytes % (Manual) Seg Neutrophils # Man Lymphocytes # (Manual) PT INR APTT Thrombin Time POC ABG pH 7.477 H ABG pH POC ABG pCO2 34.8 L POC ABG pO2 118 H ABG HCO3 ABG Base Excess ABG Hemoglobin Oxyhemoglobin Sodium Potassium Chloride Carbon Dioxide BUN Creatinine Glucose POC Glucose Lactic Acid Calcium Iron TIBC Direct Bilirubin AST Troponin T C-Reactive Protein Total Protein Albumin LDL Cholesterol Direct HDL Cholesterol Vitamin B12 Folate TSH Urine WBC (Auto) Complement C3 Complement C4
[2019-02-08] MEDS: IPRATROPIUM/ALBUTEROL SULFATE 3 ML AMPUL.NEB IH SCH ×4 (05:38→20:30)
[2019-02-08 06:07] LABS: ABG Base Excess 0.8 mmol/L (-2.0-3.0); ABG HCO3 24.4 mmol/L (20.0-26.0); ABG Methemoglobin 0.6 % (0.0-1.5); ABG Oxygen Saturation 97.2 % (95.0-99.0); ABG PCO2 34.5 mm Hg; ABG PH 7.467 pH Units (7.350-7.450); ABG PO2 87.2 mm Hg (80.0-90.0)
--- NOTE | 2019-02-08 07:49 | Hem/Onc Progress Note ---
Assessment and Plan 1. Thrombocytopenia, sepsis/infection/antibiotic related. Folate level is low, B12 is normal. Serum iron is low, but ferritin is not low. HIV negative. Fibrinogen level is not low. PT, PTT is not abnormal. Supportive care at this time will help the patient. 2. Diabetes. 3. Hypothyroidism. 4. History of renal impairment, on supportive care. 5. Intubation for respiratory issues. 6. Neurology team saw the patient. Neurology thinks it is septic metabolic encephalopathy. I will follow the patient during inpatient stay. plt improving low folate non replaement pt still - on vent - unresponsive neurology - ? meningitis - Patient Problems (1) Thrombocytopenia Current Visit: Yes Status: Acute Subjective Date of service: 02/08/19 Principal diagnosis: low plt Interval history: not responding Objective - Exam Narrative Exam: Pain - not evaluable General appearance intubated Performance status complete dependent Eyes - no icterus ENT - no bleeding - on vent LNs cervical not palpable Neck - no LN Respiratory Normal Breath sounds - CTA anteriorly CVS S1 S2 + Extremities normal temperature General GI Soft Rectal deferred female - deferred Skin warm Musculoskeletal not moving Neurologically not responding - Constitutional Vitals: Last Vital Signs Temp 98.9 F 02/08/19 04:00 Pulse 105 H 02/08/19 07:36 Resp 14 02/08/19 07:32 BP 144/81 02/08/19 07:36 Pulse Ox 98 02/08/19 07:36 - Labs Lab Results: Laboratory Results - last 24 hr 02/05/19 02/07/19 02/07/19 14:10 08:22 10:58 WBC 9.8 RBC 3.67 Hgb 10.9 Hct 33.1 MCV 90 MCH 30 MCHC 33 RDW 16.0 H Plt Count 84 L Add Manual Diff Complete Total Counted 100 Seg Neutrophils % Senior Executive Compensation Analyst Seg Neuts % (Manual) 97.0 H Band Neutrophils % 0 Lymphocytes % (Manual) 0 L Reactive Lymphs % (Man) 0 Monocytes % (Manual) 1.0 Eosinophils % (Manual) 0 Basophils % (Manual) 0 Metamyelocytes % 2.0 Myelocytes % 0 Promyelocytes % 0 Blast Cells % 0 Nucleated RBC % Not Reportable Seg Neutrophils # Man 9.5 H Band Neutrophils # 0.0 Lymphocytes # (Manual) 0.0 L Abs React Lymphs (Man) 0.0 Monocytes # (Manual) 0.1 Eosinophils # (Manual) 0.0 Basophils # (Manual) 0.0 Metamyelocytes # 0.2 Myelocytes # 0.0 Promyelocytes # 0.0 Blast Cells # 0.0 WBC Morphology Not Reportable Hypersegmented Neuts Not Reportable Hyposegmented Neuts Not Reportable Hypogranular Neuts Not Reportable Smudge Cells Not Reportable Toxic Granulation Not Reportable Toxic Vacuolation Not Reportable Dohle Bodies Not Reportable Pelger-Huet Anomaly Not Reportable Raghav Rods Not Reportable Platelet Estimate Consistent w auto Clumped Platelets Not Reportable Plt Clumps, EDTA Not Reportable Large Platelets Rare Giant Platelets Not Reportable Platelet Satelliting Not Reportable Plt Morphology Comment Not Reportable RBC Morphology Not Reportable Dimorphic RBCs Not Reportable Polychromasia Not Reportable Hypochromasia Not Reportable Poikilocytosis Few Anisocytosis Few Microcytosis Not Reportable Macrocytosis Not Reportable Spherocytes Not Reportable Pappenheimer Bodies Not Reportable Sickle Cells Not Reportable Target Cells Not Reportable Tear Drop Cells Not Reportable Ovalocytes Not Reportable Helmet Cells Not Reportable [place] Bodies Not Reportable [place] Rings Not Reportable Duc Cells Not Reportable Bite Cells Not Reportable Crenated Cell Not Reportable Elliptocytes Not Reportable Acanthocytes (Spur) Not Reportable Rouleaux Not Reportable Hemoglobin C Crystals Not Reportable Schistocytes Not Reportable Malaria parasites Not Reportable Riccardo Bodies Not Reportable Hem Pathologist Commnt No POC ABG pH 7.477 H ABG pH POC ABG pCO2 34.8 L ABG pCO2 POC ABG pO2 118 H ABG pO2 POC ABG HCO3 25.8 ABG HCO3 POC ABG Total CO2 27 POC ABG O2 Sat 99 ABG O2 Saturation ABG O2 Content POC ABG Base Excess 2 ABG Base Excess ABG Hemoglobin ABG Carboxyhemoglobin ABG Methemoglobin Oxyhemoglobin FiO2 25 CSF Seg Neutrophils 30.0 CSF Lymphocytes % 40.0 CSF Reactive Lymphs 0 CSF Monocytes % 30.0 CSF Eosinophils % 0 CSF Basophils 0 CSF Pathologist Review C 02/08/19 04:40 WBC RBC Hgb Hct MCV MCH MCHC RDW Plt Count Add Manual Diff Total Counted Seg Neutrophils % Seg Neuts % (Manual) Band Neutrophils % Lymphocytes % (Manual) Reactive Lymphs % (Man) Monocytes % (Manual) Eosinophils % (Manual) Basophils % (Manual) Metamyelocytes % Myelocytes % Promyelocytes % Blast Cells % Nucleated RBC % Seg Neutrophils # Man Band Neutrophils # Lymphocytes # (Manual) Abs React Lymphs (Man) Monocytes # (Manual) Eosinophils # (Manual) Basophils # (Manual) Metamyelocytes # Myelocytes # Promyelocytes # Blast Cells # WBC Morphology Hypersegmented Neuts Hyposegmented Neuts Hypogranular Neuts Smudge Cells Toxic Granulation Toxic Vacuolation Dohle Bodies Pelger-Huet Anomaly Raghav Rods Platelet Estimate Clumped Platelets Plt Clumps, EDTA Large Platelets Giant Platelets Platelet Satelliting Plt Morphology Comment RBC Morphology Dimorphic RBCs Polychromasia Hypochromasia Poikilocytosis Anisocytosis Microcytosis Macrocytosis Spherocytes Pappenheimer Bodies Sickle Cells Target Cells Tear Drop Cells Ovalocytes Helmet Cells [place] Bodies [place] Rings [place] Cells Bite Cells Crenated Cell Elliptocytes Acanthocytes (Spur) Rouleaux Hemoglobin C Crystals Schistocytes Malaria parasites Riccardo Bodies Hem Pathologist Commnt POC ABG pH ABG pH 7.467 H POC ABG pCO2 ABG pCO2 34.5 POC ABG pO2 ABG pO2 87.2 POC ABG HCO3 ABG HCO3 24.4 POC ABG Total CO2 POC ABG O2 Sat ABG O2 Saturation 97.2 ABG O2 Content 11.4 POC ABG Base Excess ABG Base Excess 0.8 ABG Hemoglobin 8.4 L ABG Carboxyhemoglobin 1.5 ABG Methemoglobin 0.6 Oxyhemoglobin 95.2 FiO2 25 CSF Seg Neutrophils CSF Lymphocytes % CSF Reactive Lymphs CSF Monocytes % CSF Eosinophils % CSF Basophils CSF Pathologist Review Medications & Allergies - Medications Allergies/Adverse Reactions: Allergies No Known Allergies Allergy (Verified 08/18/18 09:04) Home Medications: Home Medications Medication Instructions Recorded Confirmed Last Taken Type Levothyroxine [Synthroid] 112 mcg PO QAM 02/01/19 02/01/19 Unknown History Lisinopril [Zestril TAB] 40 mg PO QDAY 02/01/19 02/01/19 Unknown History amLODIPine [Norvasc] 10 mg PO DAILY 02/01/19 02/01/19 Unknown History cloNIDine [Catapres] 1 mg PO QDAY 02/01/19 02/01/19 Unknown History Active Medications: Generic Name Dose Route Start Last Admin Trade Name Freq PRN Reason Stop Dose Admin Acetaminophen 650 mg 02/01/19 10:47 02/05/19 16:46 Tylenol PO 650 mg Q4H PRN Administration Pain MILD(1-3)/Fever >100.5/VALENZUELA Albuterol 2.5 mg 02/01/19 10:47 Proventil IH Q4HRT PRN Shortness Of Breath Albuterol/Ipratropium 1 ampul 02/01/19 12:00 02/08/19 07:28 Duoneb *Not For Prn Use* IH 1 ampul Q6HRT AMOL Administration Lipase/Protease/Amylase 1 each 02/05/19 11:04 Pancreaze 10,500 Unit FEEDTUBE PRN PRN For Clogged Feeding Tube Famotidine 20 mg 02/07/19 10:00 02/07/19 10:38 Pepcid PO 20 mg DAILY AMOL Administration Folic Acid 1 mg 02/06/19 10:00 02/07/19 10:37 Folvite PO 1 mg QDAY AMOL Administration Hydrophilic Ointment 1 applic 02/01/19 11:09 02/02/19 16:50 Vaseline Lip Therapy TP 1 applic Q2HR PRN Administration Dry Lips Midazolam HCl 100 mg/ Sodium 100 mls @ 2 mls/hr 02/01/19 12:00 02/03/19 07:40 Chloride IV 0 mg/hr TITR AMOL 0 mls/hr Titration Protocol 2 MG/HR Ceftriaxone Sodium 2 gm in 100 mls @ 200 mls/hr 02/05/19 13:00 02/07/19 21:36 Rocephin/Ns 2 Gm/100 Ml IV 100 mls/hr Q12HR AMOL Administration Protocol Methylprednisolone Sodium 250 mls @ 250 mls/hr 02/06/19 13:00 02/07/19 14:02 Succinate 1,000 mg/ Sodium IV 250 mls/hr Chloride Q24H AMOL Administration Diltiazem HCl 100 mg in 100 mls @ 5 mls/hr 02/07/19 12:30 02/07/19 23:45 Cardizem/D5w 100mg/100ml IV 10 mg/hr TITR AMOL 10 mls/hr Titration Protocol 5 MG/HR Levothyroxine Sodium 125 mcg 02/07/19 10:00 02/07/19 10:38 Synthroid PO 125 mcg QAM AMOL Administration Midazolam HCl 2 mg 02/01/19 11:09 02/01/19 11:42 Versed IV 2 mg Q10MIN PRN Administration Sedation Morphine Sulfate 2 mg 02/01/19 10:47 02/07/19 16:09 Morphine IV 2 mg Q4H PRN Administration Pain, Moderate (4-6) Multi-Ingred Cream/Lotion/Oil/Oint 1 applic 02/01/19 11:09 02/02/19 16:50 Artificial Tears Ophth Oint OU 1 applic Q4HR PRN Administration Dry Eye(s) Multivitamins 5 ml 02/06/19 10:00 02/07/19 10:37 Centrum Liq PO 5 ml QDAY AMOL Administration Ondansetron HCl 4 mg 02/01/19 10:47 Zofran IV Q8H PRN Nausea And Vomiting Simple Syrup 15 ml 02/05/19 11:04 Simple Syrup FEEDTUBE PRN PRN Hypoglycemia Simple Syrup 30 ml 02/05/19 11:04 Simple Syrup FEEDTUBE PRN PRN Hypoglycemia Sodium Bicarbonate 325 mg 02/05/19 11:04 Sodium Bicarbonate FEEDTUBE PRN PRN For Clogged Feeding Tube Sodium Chloride 10 ml 02/01/19 22:00 02/07/19 21:36 Sodium Chloride Flush Syringe 10 Ml IV 10 ml BID AMOL Administration Sodium Chloride 10 ml 02/01/19 10:47 Sodium Chloride Flush Syringe 10 Ml IV PRN PRN LINE FLUSH
--- NOTE | 2019-02-08 08:15 | Progress Note ---
Assessment and Plan 1.Severe sepsis with Strep pneumoniae bacteremia, pneumonia and meningitis: TTE showed some ?pulmonic valve vegetation. Awaiting TERRENCE. CSF shows WBC 1250, RBC 30, PMN 30%, Glucose 38, Protein 140. 2.Right neck severe lymphadenopathy: CT neck was without contrast, hence limited eval of vasculature. Neck US revealed extensive R neck lymphadenopathy, no abscess. HIV, RPR negative. Bartonella serologies pending. Today, patient's mother showed me paperwork from patient's PCP, patient was seen on 01/30/2019 at PCP office for R neck lump, was given medrol dose kevin and ultrasound was ordered. Once creatinine improves further, may need CT chest, abdomen pelvis with IV contrast to evaluate for other lymphadenopathy. 3.Bilateral pneumonia: sputum culture also growing Strep, likely Strep pneumoniae. 4.Thrombocytopenia likely due to sepsis or autoimmune phenomenon, hematology input appreciated, hiv-negative, fibrinogen level is not low, PT PTT is normal. Status post platelet transfusion, improved 5.Acute kidney injury Due to ATN Renal function improving IV fluids Nephrology input appreciated 6.History of lupus? families is unclear on this medical history, but know that she has some form of autoimmune disease Complement levels are reduced, CHESTER is pending. Started on steroids, should be tapered based on clinical presentation, still suspects but they may be an elements of [employer] vasculitis 7.Acute metabolic encephalopathy Likely due to sepsis, obtain eeg, neurology appreciated MRI and MRA head pending. But at this time cannot be done as patient is on continuous fluids and on vent. Discuss with the director of infection control who states that it can be done on ventilator and continuous IV infusion, she will facilitate it. If MRI and able to be done, will consider transferring his patients to a higher level facility such as [place] 8.Acute respiratory failure on MV > 96 hours cont vent per pulmonology 9.Type 2 MN - cardiology input appreciated, rx the underlying cause 10.Hypothyroidism TSH elevated, synthroid dose increased -repeat TFTs in 4-6 wks The high probability of a clinically significant, sudden or life threatening deterioration of the [CV, Neurology, renal] system(s) required my full and direct attention, intervention and personal management. The aggregate critical care time was [45] minutes. This time is in addition to time spent performing reported procedures but includes the following: [x] Data Review and interpretation [x] Patient assessment and monitoring of vital signs [x] Documentation [x] Medication orders and management Subjective Date of service: 02/08/19 Principal diagnosis: septic shock Interval history: 53 year old woman who was brought in by her family for unsteady gait, fatigue, and withdrawal behavior.Throughout that night she was having difficulty expressing herself. . She became more disoriented and less responsive prompting family to bring her to the emergency room. Intubated Objective - Constitutional Vitals: Vital Signs - 12hr 02/07/19 02/07/19 02/07/19 20:19 20:31 21:01 Temperature Pulse Rate 100 H 85 Pulse Rate [ 96 H Anterior Bilateral Throughout] Respiratory 25 H 20 Rate Respiratory 26 H Rate [Anterior Bilateral Throughout] Blood Pressure 136/79 120/69 O2 Sat by Pulse 96 97 Oximetry 02/07/19 02/07/19 02/07/19 21:30 22:00 22:30 Temperature Pulse Rate 92 H 92 H 88 Pulse Rate [ Anterior Bilateral Throughout] Respiratory 22 22 21 Rate Respiratory Rate [Anterior Bilateral Throughout] Blood Pressure 125/60 122/68 131/80 O2 Sat by Pulse 97 97 97 Oximetry 02/07/19 02/07/19 02/07/19 23:01 23:03 23:31 Temperature Pulse Rate 93 H 88 91 H Pulse Rate [ Anterior Bilateral Throughout] Respiratory 21 21 22 Rate Respiratory Rate [Anterior Bilateral Throughout] Blood Pressure 129/70 129/70 127/68 O2 Sat by Pulse 98 97 97 Oximetry 02/08/19 02/08/19 02/08/19 00:00 00:31 00:34 Temperature 98.7 F Pulse Rate 103 H 90 87 Pulse Rate [ Anterior Bilateral Throughout] Respiratory 21 21 Rate Respiratory Rate [Anterior Bilateral Throughout] Blood Pressure 131/68 125/64 125/64 O2 Sat by Pulse 97 97 98 Oximetry 02/08/19 02/08/19 02/08/19 01:00 01:31 02:01 Temperature Pulse Rate 106 H 125 H 103 H Pulse Rate [ Anterior Bilateral Throughout] Respiratory 25 H 26 H 25 H Rate Respiratory Rate [Anterior Bilateral Throughout] Blood Pressure 138/77 146/80 150/85 O2 Sat by Pulse 98 97 97 Oximetry 02/08/19 02/08/19 02/08/19 02:30 03:01 03:31 Temperature Pulse Rate 98 H 104 H 103 H Pulse Rate [ Anterior Bilateral Throughout] Respiratory 25 H 25 H 25 H Rate Respiratory Rate [Anterior Bilateral Throughout] Blood Pressure 147/94 145/80 138/77 O2 Sat by Pulse 97 97 97 Oximetry 02/08/19 02/08/19 02/08/19 04:00 04:31 05:01 Temperature 98.9 F Pulse Rate 93 H 107 H 104 H Pulse Rate [ Anterior Bilateral Throughout] Respiratory 24 24 28 H Rate Respiratory Rate [Anterior Bilateral Throughout] Blood Pressure 153/89 136/82 145/73 O2 Sat by Pulse 97 97 95 Oximetry 02/08/19 02/08/19 02/08/19 05:30 05:39 05:40 Temperature Pulse Rate 101 H 113 H Pulse Rate [ 102 H Anterior Bilateral Throughout] Respiratory 24 Rate Respiratory 25 H Rate [Anterior Bilateral Throughout] Blood Pressure 147/72 147/72 O2 Sat by Pulse 97 97 Oximetry 02/08/19 02/08/19 02/08/19 06:00 07:32 07:36 Temperature Pulse Rate 108 H 105 H Pulse Rate [ 101 H Anterior Bilateral Throughout] Respiratory 17 Rate Respiratory 14 Rate [Anterior Bilateral Throughout] Blood Pressure 145/79 144/81 O2 Sat by Pulse 100 98 Oximetry General appearance: Present: no acute distress, well-nourished - EENT Eyes: PERRL, EOM intact ENT: hearing intact, clear oral mucosa Ears: bilateral: normal - Neck Neck: supple, normal ROM - Respiratory Respiratory effort: normal Respiratory: bilateral: CTA - Breasts Breasts: normal - Cardiovascular Heart rate: 98 Rhythm: regular Heart Sounds: Present: S1 & S2. Absent: gallop, rub Extremities: pulses intact, No edema, normal color, Full ROM - Gastrointestinal General gastrointestinal: Present: soft, non-tender, non-distended, normal bowel sounds - Genitourinary Female genitourinary: normal - Integumentary Integumentary: clear, warm, dry - Musculoskeletal Musculoskeletal: generalized weakness - Neurologic Neurologic: moves all extremities - Labs CBC & Chem 7: 02/07/19 08:22 02/07/19 01:07 Labs: Abnormal lab results 02/07/19 02/07/1919 Range/Units 08:22 10:58 04:40 RDW 16.0 H (13.2-15.2) % Plt Count 84 L (140-440) K/mm3 Seg Neuts % (Manual) 97.0 H (40.0-70.0) % Lymphocytes % (Manual) 0 L (13.4-35.0) % Seg Neutrophils # Man 9.5 H (1.8-7.7) K/mm3 Lymphocytes # (Manual) 0.0 L (1.2-5.4) K/mm3 POC ABG pH 7.477 H (7.35-7.45) ABG pH 7.467 H (7.350-7.450) pH Units POC ABG pCO2 34.8 L (35-45) POC ABG pO2 118 H (80-105) ABG Hemoglobin 8.4 L (12.0-16.0) gm/dl
--- NOTE | 2019-02-08 08:45 | XRay Report ---
CHEST 1 VIEW INDICATION: follow up respiratory failure. COMPARISON: 02/07/2019 FINDINGS: Support devices: The endotracheal tube is in satisfactory position above the gilson. A nasogastric tu be tip is below the diaphragm and not imaged. Heart: Stable cardiomegaly. Mild central vascular congestion. Lungs/Pleura: Increased opacification in the right lung base with silhouetting of the right hemidiaph ragm. The right upper lobe is clear. The left lung is clear. Additional findings: None. IMPRESSION: Right basal atelectasis versus airspace disease. A small right pleural effusion cannot be excluded. Signer Name: Anthony Ramirez MD Signed: 02/08/2019 8:41 AM Workstation Name: [id number]
[2019-02-08] MEDS: dilTIAZem/D5W 100 MG/100 ML BAG IV SCH ×2 (09:18→19:43)
[2019-02-08] MEDS: FAMOTIDINE 20 MG TAB PO SCH (09:28)
[2019-02-08] MEDS: FOLIC ACID 1 MG TAB PO SCH (09:28)
[2019-02-08] MEDS: LEVOTHYROXINE 125 MCG TAB PO SCH (09:28)
[2019-02-08] MEDS: MULTIVITAMINS 5 ML ORAL LIQUID PO SCH (09:29)
[2019-02-08] MEDS: cefTRIAXone/NS 2 GM/100 ML 2 GM/100 ML BAG IV SCH ×2 (09:29→21:17)
--- NOTE | 2019-02-08 09:48 | Progress Note ---
Assessment and Plan Cultures: 02/01/2019 blood culture: Strep pneumoniae in 4/4 bottles 02/01/2019 urine culture: no growth 02/01/2019 tracheal aspirate: Strep species 02/02/2019 blood culture: no growth 02/05/2019 CSF culture: in process 02/01/2019 C3: 36 (low) 02/01/2019 C4: 12 (low) HIV: non reactive RPR: non reactive Hepatitis panel: non reactive A/P: 53-year-old female with hypothyroidism, hypertension, ?autoimmune disease. Admitted with: 1) Severe sepsis with Strep pneumoniae bacteremia, pneumonia and meningitis: TTE showed some ?pulmonic valve vegetation. Awaiting TERRENCE. CSF shows WBC 1250, RBC 30, PMN 30%, Glucose 38, Protein 140. 2) Right neck severe lymphadenopathy: CT neck was without contrast, hence limited eval of vasculature. Neck US revealed extensive R neck lymphadenopathy, no abscess. HIV, RPR negative. Bartonella serologies pending. On 02/07/2019, patient's mother showed me paperwork from patient's PCP, patient was seen on 01/30/2019 at PCP office for R neck lump, was given medrol dose kevin and ultrasound was ordered. Once creatinine improves further, may need CT chest, abdomen pelvis with IV contrast to evaluate for other lymphadenopathy. 3) Bilateral pneumonia: sputum culture also growing Strep, likely Strep pneumoniae. 4) Acute renal failure: renally dose abx. Nephrology following. Creatinine 1.8 today. 5) ?Autoimmune disease: need more history. Unclear if she is on any kind of immunosuppression. C3, C4 came back low. F/u CHESTER, ANCA. Suspect some underlying immunodeficiency. 6) Thrombocytopenia: worse. Hematology following. Sepsis v/s autoimmune in etiology. 7) Acute encephalopathy: secondary to meningitis. Recs: continue IV Ceftriaxone 2 gm q12 hrs for invasive Pneumococcal disease and meningitis awaiting TERRENCE f/u pending Bartonella serologies f/u CHESTER, ANCA once creatinine improves, may need CT chest, abdomen pelvis with IV contrast to evaluate for other lymphadenopathy Luis Lewis MD, FACP [facility] ([facility] M: [phone] O: [phone] F: [phone] Subjective Date of service: 02/08/19 Principal diagnosis: low plt Interval history: No fever. Opens eyes, but mental status otherwise unchanged. TERRENCE got postponed yesterday due to A.fib with RVR. Objective - Exam Narrative Exam: Physical Exam: Constitutional: drowsy, opens eyes, doesn't follow commands, intubated Head, Ears, Nose: Normocephalic, atraumatic. External ears, nose normal Eyes: Conjunctivae/corneas clear. No icterus. No ptosis. Neck: R cervical lymphadenopathy, slightly improved Oral: intubated Cardiovascular: S1, S2 normal, irregular Respiratory: AE clear bilaterally, no wheeze GI: Soft, non-tender; bowel sounds normal. No peritoneal signs Musculoskeletal: No pedal edema, no cyanosis. Skin: No rash or abscess Hem/Lymphatic: No palpable cervical or supraclavicular nodes. No lymphangitis Psych: no agitation Neurological: opens eyes, doesn't follow commands, on the vent - Constitutional Vitals: Vital Signs Temp Pulse Resp BP Pulse Ox 99.2 F 105 H 14 144/81 98 02/08/19 08:00 02/08/19 07:36 02/08/19 07:32 02/08/19 07:36 02/08/19 07:36 Temperature -Last 24 Hours Temperature 99.2 F Temperature 98.9 F Temperature 98.7 F Temperature 97.7 F Temperature 98.6 F Temperature 98.6 F - Labs CBC & Chem 7: 02/07/19 08:22 02/07/19 01:07 Labs: Abnormal lab results 02/07/19 02/08/19 Range/Units 10:58 04:40 POC ABG pH 7.477 H (7.35-7.45) ABG pH 7.467 H (7.350-7.450) pH Units POC ABG pCO2 34.8 L (35-45) POC ABG pO2 118 H (80-105) ABG Hemoglobin 8.4 L (12.0-16.0) gm/dl - Imaging and cardiology Chest x-ray: report reviewed, image reviewed (R basal airspace disease, ?effusion v/s atelectasis v/s infiltrate)
[2019-02-08 11:11] LABS: Myeloperoxidase Antibody <1.0 AI (<1.0)
--- NOTE | 2019-02-08 12:12 | Progress Note ---
Assessment and Plan Imp: 1. Neck cellulitis 2. Strep pneumonae Bacteremia 3. Severe sepsis 4. DIANA 5. Hyperkalemia, resolved 6. Lactic acidosis, resolved 7. Acute respiratory failure, hypoxia, tolerated CPAP trial 8. Metabolic encephalopathy 9. Thrombocytopenia s/p plt transfusion 10. Bilateral pneumonia worsening 11. AMS ? etiology. LP non revealing Rec: 1. ABX per ID 2. Neurological evaluation regards to AMS, awaiting MRI. Pending results will need to have family meeting. 3. Hyperkalemia per renal 4. All sedation is currently off and has now been discontinued from the AUG 5. SCDs, Pepcid, avoid Lovenox due to thrombocytopenia 6. Prognosis is guarded; no family present 7. Continue with ventilator 8. TERRENCE scheduled Total critical care time 31 minute Subjective Date of service: 02/08/19 Principal diagnosis: low plt Interval history: No acute events. Remains unresponsive. Has not been tried on PSV today secondary to cardiac instability seen yesterday with PSV. Currently awaiting MRI. Mother at bedside. Objective Vital Signs - 12hr 02/08/19 02/08/19 02/08/19 00:31 00:34 01:00 Temperature Pulse Rate 90 87 106 H Pulse Rate [ Anterior Bilateral Throughout] Respiratory 21 25 H Rate Respiratory Rate [Anterior Bilateral Throughout] Blood Pressure 125/64 125/64 138/77 O2 Sat by Pulse 97 98 98 Oximetry 02/08/19 02/08/19 02/08/19 01:31 02:01 02:30 Temperature Pulse Rate 125 H 103 H 98 H Pulse Rate [ Anterior Bilateral Throughout] Respiratory 26 H 25 H 25 H Rate Respiratory Rate [Anterior Bilateral Throughout] Blood Pressure 146/80 150/85 147/94 O2 Sat by Pulse 97 97 97 Oximetry 02/08/19 02/08/19 02/08/19 03:01 03:31 04:00 Temperature 98.9 F Pulse Rate 104 H 103 H 93 H Pulse Rate [ Anterior Bilateral Throughout] Respiratory 25 H 25 H 24 Rate Respiratory Rate [Anterior Bilateral Throughout] Blood Pressure 145/80 138/77 153/89 O2 Sat by Pulse 97 97 97 Oximetry 02/08/19 02/08/19 02/08/19 04:31 05:01 05:30 Temperature Pulse Rate 107 H 104 H 101 H Pulse Rate [ Anterior Bilateral Throughout] Respiratory 24 28 H 24 Rate Respiratory Rate [Anterior Bilateral Throughout] Blood Pressure 136/82 145/73 147/72 O2 Sat by Pulse 97 95 97 Oximetry 02/08/19 02/08/19 02/08/19 05:39 05:40 06:00 Temperature Pulse Rate 113 H 108 H Pulse Rate [ 102 H Anterior Bilateral Throughout] Respiratory 17 Rate Respiratory 25 H Rate [Anterior Bilateral Throughout] Blood Pressure 147/72 145/79 O2 Sat by Pulse 97 100 Oximetry 02/08/19 02/08/19 02/08/19 06:30 07:01 07:31 Temperature Pulse Rate 102 H 103 H 104 H Pulse Rate [ Anterior Bilateral Throughout] Respiratory 25 H 25 H 25 H Rate Respiratory Rate [Anterior Bilateral Throughout] Blood Pressure 139/77 148/70 144/81 O2 Sat by Pulse 97 97 97 Oximetry 02/08/19 02/08/19 02/08/19 07:32 07:36 08:00 Temperature 99.2 F Pulse Rate 105 H 117 H Pulse Rate [ 101 H Anterior Bilateral Throughout] Respiratory 28 H Rate Respiratory 14 Rate [Anterior Bilateral Throughout] Blood Pressure 144/81 149/82 O2 Sat by Pulse 98 98 Oximetry 02/08/19 02/08/19 02/08/19 08:30 09:00 09:30 Temperature Pulse Rate 106 H 110 H 104 H Pulse Rate [ Anterior Bilateral Throughout] Respiratory 26 H 26 H 26 H Rate Respiratory Rate [Anterior Bilateral Throughout] Blood Pressure 144/84 138/76 145/80 O2 Sat by Pulse 97 97 97 Oximetry 02/08/19 02/08/19 02/08/19 10:01 10:31 11:01 Temperature Pulse Rate 100 H 100 H 104 H Pulse Rate [ Anterior Bilateral Throughout] Respiratory 28 H 26 H 26 H Rate Respiratory Rate [Anterior Bilateral Throughout] Blood Pressure 131/85 148/84 148/85 O2 Sat by Pulse 98 98 98 Oximetry Constitutional: comatose, other (orally intubated on mechanical ventilator.) Eyes: non-icteric ENT: oropharynx moist Neck: supple Effort: normal Ascultation: Bilateral: other (coarse BS bilaterally improved) Cardiovascular: other (tachy, RR; no mrg) Gastrointestinal: normoactive bowel sounds, soft, non-tender, non-distended Integumentary: normal Extremities: no cyanosis, no edema, pink and warm Neurologic: unable to assess (due to sedation) Psychiatric: other (unable to assess) CBC and BMP: 02/07/19 08:22 02/07/19 01:07 ABG, PT/INR, D-dimer: ABG POC ABG pH 7.477 (7.35-7.45) H 02/07/19 10:58 ABG pH 7.467 pH Units (7.350-7.450) H 02/08/19 04:40 POC ABG pCO2 34.8 (35-45) L 02/07/19 10:58 ABG pCO2 34.5 mm Hg 02/08/19 04:40 POC ABG pO2 118 (80-105) H 02/07/19 10:58 ABG pO2 87.2 mm Hg (80.0-90.0) 02/08/19 04:40 POC ABG HCO3 25.8 (22-26 mml/L) 02/07/19 10:58 POC ABG Total CO2 27 (23-27mmol/L) 02/07/19 10:58 POC ABG O2 Sat 99 02/07/19 10:58 ABG O2 Saturation 97.2 % (95.0-99.0) 02/08/19 04:40 PT/INR, D-dimer PT 16.3 Sec. (12.2-14.9) H 02/06/19 07:35 INR 1.35 (0.87-1.13) H 02/06/19 07:35 Abnormal lab findings: Abnormal Labs 02/01/19 02/01/19 02/01/19 07:16 07:16 07:16 WBC 17.7 H RBC Hgb Hct RDW 16.9 H Plt Count 62 L Seg Neuts % (Manual) 95.0 H Lymphocytes % (Manual) 0 L Seg Neutrophils # Man 16.8 H Lymphocytes # (Manual) 0.0 L PT 15.0 H INR 1.21 H APTT Thrombin Time 20.0 H POC ABG pH ABG pH POC ABG pCO2 POC ABG pO2 ABG HCO3 ABG Base Excess ABG Hemoglobin Oxyhemoglobin Sodium 135 L Potassium Chloride 97.7 L Carbon Dioxide 19 L BUN 51 H Creatinine 4.5 H Glucose 112 H POC Glucose Lactic Acid Calcium Iron TIBC Direct Bilirubin AST Troponin T 0.181 H* C-Reactive Protein Total Protein Albumin LDL Cholesterol Direct 34 L HDL Cholesterol 20 L Vitamin B12 Folate TSH Urine WBC (Auto) Complement C3 Complement C4 02/01/19 02/01/19 02/01/19 07:29 07:29 07:43 WBC RBC Hgb Hct RDW Plt Count Seg Neuts % (Manual) Lymphocytes % (Manual) Seg Neutrophils # Man Lymphocytes # (Manual) PT INR APTT Thrombin Time POC ABG pH ABG pH POC ABG pCO2 POC ABG pO2 ABG HCO3 ABG Base Excess ABG Hemoglobin Oxyhemoglobin Sodium Potassium Chloride Carbon Dioxide BUN Creatinine Glucose POC Glucose Lactic Acid 4.80 H* Calcium Iron TIBC Direct Bilirubin 0.7 H AST 42 H Troponin T C-Reactive Protein Total Protein 8.9 H Albumin 2.3 L LDL Cholesterol Direct HDL Cholesterol Vitamin B12 Folate TSH 8.470 H Urine WBC (Auto) Complement C3 Complement C4 02/01/19 02/01/19 02/01/19 09:45 11:32 13:50 WBC RBC Hgb Hct RDW Plt Count Seg Neuts % (Manual) Lymphocytes % (Manual) Seg Neutrophils # Man Lymphocytes # (Manual) PT INR APTT Thrombin Time POC ABG pH 7.289 L ABG pH POC ABG pCO2 POC ABG pO2 355 H ABG HCO3 ABG Base Excess ABG Hemoglobin Oxyhemoglobin Sodium Potassium Chloride Carbon Dioxide BUN Creatinine Glucose POC Glucose Lactic Acid 4.10 H* Calcium Iron TIBC Direct Bilirubin AST Troponin T C-Reactive Protein Total Protein Albumin LDL Cholesterol Direct HDL Cholesterol Vitamin B12 Folate TSH Urine WBC (Auto) 16.0 H Complement C3 Complement C4 02/01/19 02/01/19 02/01/19 15:15 16:20 16:51 WBC RBC Hgb Hct RDW Plt Count Seg Neuts % (Manual) Lymphocytes % (Manual) Seg Neutrophils # Man Lymphocytes # (Manual) PT INR APTT Thrombin Time POC ABG pH ABG pH POC ABG pCO2 POC ABG pO2 ABG HCO3 ABG Base Excess ABG Hemoglobin Oxyhemoglobin Sodium Potassium Chloride Carbon Dioxide BUN Creatinine Glucose POC Glucose 115 H Lactic Acid 4.50 H* Calcium Iron TIBC Direct Bilirubin AST Troponin T C-Reactive Protein Total Protein Albumin LDL Cholesterol Direct HDL Cholesterol Vitamin B12 Folate TSH Urine WBC (Auto) Complement C3 36 L Complement C4 02/01/19 02/01/19 02/01/19 16:51 17:03 17:04 WBC RBC Hgb Hct RDW Plt Count Seg Neuts % (Manual) Lymphocytes % (Manual) Seg Neutrophils # Man Lymphocytes # (Manual) PT INR APTT Thrombin Time POC ABG pH ABG pH POC ABG pCO2 POC ABG pO2 ABG HCO3 ABG Base Excess ABG Hemoglobin Oxyhemoglobin Sodium Potassium Chloride Carbon Dioxide BUN Creatinine Glucose POC Glucose Lactic Acid 2.80 H* Calcium Iron TIBC Direct Bilirubin AST Troponin T C-Reactive Protein 32.30 H Total Protein Albumin LDL Cholesterol Direct HDL Cholesterol Vitamin B12 Folate TSH Urine WBC (Auto) Complement C3 Complement C4 12 L 02/01/19 02/02/19 02/02/19 19:28 05:16 05:53 WBC 14.3 H RBC Hgb Hct RDW 16.9 H Plt Count 43 L Seg Neuts % (Manual) 93.0 H Lymphocytes % (Manual) 2.0 L Seg Neutrophils # Man 13.3 H Lymphocytes # (Manual) 0.3 L PT INR APTT Thrombin Time POC ABG pH ABG pH POC ABG pCO2 POC ABG pO2 148 H ABG HCO3 ABG Base Excess ABG Hemoglobin Oxyhemoglobin Sodium Potassium Chloride 107.1 H Carbon Dioxide 18 L BUN 52 H Creatinine 3.1 H Glucose 120 H POC Glucose Lactic Acid Calcium 7.4 L Iron TIBC Direct Bilirubin AST Troponin T C-Reactive Protein Total Protein Albumin LDL Cholesterol Direct HDL Cholesterol Vitamin B12 Folate TSH Urine WBC (Auto) Complement C3 Complement C4 02/02/19 02/03/19 02/03/19 05:53 03:30 03:30 WBC RBC 5.16 H Hgb 14.9 H Hct 46.2 H D RDW 17.0 H Plt Count 18 L* Seg Neuts % (Manual) Lymphocytes % (Manual) Seg Neutrophils # Man Lymphocytes # (Manual) PT INR APTT Thrombin Time POC ABG pH ABG pH POC ABG pCO2 POC ABG pO2 ABG HCO3 ABG Base Excess ABG Hemoglobin Oxyhemoglobin Sodium Potassium 5.1 H Chloride Carbon Dioxide 21 L BUN 57 H 65 H Creatinine 3.3 H 2.7 H Glucose 147 H 117 H POC Glucose Lactic Acid Calcium 7.5 L 7.2 L Iron TIBC Direct Bilirubin AST 51 H Troponin T C-Reactive Protein Total Protein Albumin 1.6 L LDL Cholesterol Direct HDL Cholesterol Vitamin B12 Folate TSH Urine WBC (Auto) Complement C3 Complement C4 02/03/19 02/03/19 02/03/19 05:55 14:42 14:42 WBC RBC Hgb Hct RDW Plt Count Seg Neuts % (Manual) Lymphocytes % (Manual) Seg Neutrophils # Man Lymphocytes # (Manual) PT INR APTT Thrombin Time POC ABG pH ABG pH POC ABG pCO2 POC ABG pO2 117 H ABG HCO3 ABG Base Excess ABG Hemoglobin Oxyhemoglobin Sodium Potassium Chloride Carbon Dioxide BUN Creatinine Glucose POC Glucose Lactic Acid Calcium Iron 11 L TIBC 88 L Direct Bilirubin AST Troponin T C-Reactive Protein Total Protein Albumin LDL Cholesterol Direct HDL Cholesterol Vitamin B12 1468 H Folate TSH Urine WBC (Auto) Complement C3 Complement C4 02/03/19 02/03/19 02/03/19 14:42 14:42 14:42 WBC RBC 3.17 L 3.22 L Hgb 9.4 L D 9.5 L Hct 28.3 L D 28.5 L RDW 16.9 H 16.4 H Plt Count 18 L* 18 L* Seg Neuts % (Manual) Lymphocytes % (Manual) Seg Neutrophils # Man Lymphocytes # (Manual) PT INR APTT Thrombin Time POC ABG pH ABG pH POC ABG pCO2 POC ABG pO2 ABG HCO3 ABG Base Excess ABG Hemoglobin Oxyhemoglobin Sodium Potassium Chloride Carbon Dioxide BUN Creatinine Glucose POC Glucose Lactic Acid Calcium Iron TIBC Direct Bilirubin AST Troponin T C-Reactive Protein Total Protein Albumin LDL Cholesterol Direct HDL Cholesterol Vitamin B12 Folate 5.18 L TSH Urine WBC (Auto) Complement C3 Complement C4 02/03/19 02/04/19 02/04/19 14:42 03:35 05:02 WBC RBC Hgb Hct RDW 16.5 H Plt Count 20 L Seg Neuts % (Manual) 94.0 H Lymphocytes % (Manual) 2.0 L Seg Neutrophils # Man 9.2 H Lymphocytes # (Manual) 0.2 L PT 15.8 H INR 1.29 H APTT 38.2 H Thrombin Time POC ABG pH ABG pH 7.470 H POC ABG pCO2 POC ABG pO2 ABG HCO3 28.4 H ABG Base Excess 4.5 H ABG Hemoglobin 10.1 L Oxyhemoglobin 94.7 L Sodium Potassium Chloride Carbon Dioxide BUN Creatinine Glucose POC Glucose Lactic Acid Calcium Iron TIBC Direct Bilirubin AST Troponin T C-Reactive Protein Total Protein Albumin LDL Cholesterol Direct HDL Cholesterol Vitamin B12 Folate TSH Urine WBC (Auto) Complement C3 Complement C4 02/04/19 02/05/19 02/05/19 05:02 03:50 13:02 WBC 11.7 H RBC 3.48 L Hgb 10.0 L Hct RDW 16.3 H Plt Count 50 L D Seg Neuts % (Manual) 95.0 H Lymphocytes % (Manual) 0 L Seg Neutrophils # Man 11.1 H Lymphocytes # (Manual) 0.0 L PT INR APTT Thrombin Time POC ABG pH ABG pH 7.485 H POC ABG pCO2 POC ABG pO2 ABG HCO3 27.5 H ABG Base Excess 3.9 H ABG Hemoglobin 9.1 L Oxyhemoglobin 94.8 L Sodium Potassium Chloride Carbon Dioxide BUN 66 H Creatinine 1.7 H Glucose 127 H POC Glucose Lactic Acid Calcium 7.6 L Iron TIBC Direct Bilirubin AST Troponin T C-Reactive Protein Total Protein Albumin LDL Cholesterol Direct HDL Cholesterol Vitamin B12 Folate TSH Urine WBC (Auto) Complement C3 Complement C4 02/05/19 02/05/19 02/06/19 14:36 20:03 05:39 WBC RBC 3.24 L Hgb 9.4 L Hct 29.2 L RDW 16.3 H Plt Count 71 L Seg Neuts % (Manual) 95.0 H Lymphocytes % (Manual) 2.0 L Seg Neutrophils # Man 10.2 H Lymphocytes # (Manual) 0.2 L PT INR APTT Thrombin Time POC ABG pH ABG pH POC ABG pCO2 POC ABG pO2 ABG HCO3 ABG Base Excess ABG Hemoglobin Oxyhemoglobin Sodium Potassium Chloride Carbon Dioxide BUN 67 H Creatinine 1.5 H Glucose POC Glucose 107 H Lactic Acid Calcium 7.7 L Iron TIBC Direct Bilirubin AST Troponin T C-Reactive Protein Total Protein Albumin LDL Cholesterol Direct HDL Cholesterol Vitamin B12 Folate TSH Urine WBC (Auto) Complement C3 Complement C4 02/06/19 02/06/19 02/06/19 07:35 18:34 Unknown WBC RBC Hgb Hct RDW Plt Count Seg Neuts % (Manual) Lymphocytes % (Manual) Seg Neutrophils # Man Lymphocytes # (Manual) PT 16.3 H INR 1.35 H APTT Thrombin Time POC ABG pH ABG pH POC ABG pCO2 POC ABG pO2 ABG HCO3 ABG Base Excess ABG Hemoglobin 5.0 L Oxyhemoglobin 94.9 L Sodium Potassium Chloride Carbon Dioxide BUN Creatinine Glucose POC Glucose 121 H Lactic Acid Calcium Iron TIBC Direct Bilirubin AST Troponin T C-Reactive Protein Total Protein Albumin LDL Cholesterol Direct HDL Cholesterol Vitamin B12 Folate TSH Urine WBC (Auto) Complement C3 Complement C4 02/07/19 02/07/19 02/07/19 01:07 04:15 08:22 WBC RBC Hgb Hct RDW 16.0 H Plt Count 84 L Seg Neuts % (Manual) 97.0 H Lymphocytes % (Manual) 0 L Seg Neutrophils # Man 9.5 H Lymphocytes # (Manual) 0.0 L PT INR APTT Thrombin Time POC ABG pH ABG pH POC ABG pCO2 POC ABG pO2 ABG HCO3 ABG Base Excess ABG Hemoglobin Oxyhemoglobin 94.8 L Sodium 146 H Potassium Chloride Carbon Dioxide BUN 85 H Creatinine 1.8 H Glucose 163 H POC Glucose Lactic Acid Calcium 8.3 L Iron TIBC Direct Bilirubin AST Troponin T C-Reactive Protein Total Protein Albumin LDL Cholesterol Direct HDL Cholesterol Vitamin B12 Folate TSH Urine WBC (Auto) Complement C3 Complement C4 02/07/19 02/08/19 10:58 04:40 WBC RBC Hgb Hct RDW Plt Count Seg Neuts % (Manual) Lymphocytes % (Manual) Seg Neutrophils # Man Lymphocytes # (Manual) PT INR APTT Thrombin Time POC ABG pH 7.477 H ABG pH 7.467 H POC ABG pCO2 34.8 L POC ABG pO2 118 H ABG HCO3 ABG Base Excess ABG Hemoglobin 8.4 L Oxyhemoglobin Sodium Potassium Chloride Carbon Dioxide BUN Creatinine Glucose POC Glucose Lactic Acid Calcium Iron TIBC Direct Bilirubin AST Troponin T C-Reactive Protein Total Protein Albumin LDL Cholesterol Direct HDL Cholesterol Vitamin B12 Folate TSH Urine WBC (Auto) Complement C3 Complement C4
--- NOTE | 2019-02-08 14:03 | Magnetic Resonance Report ---
MRA HEAD 02/08/2019 INDICATION / CLINICAL INFORMATION: ams, lupus, suspect vasculitis. TECHNIQUE: Routine MRA of the head is performed. 3-D/MIP reformats postprocessed. COMPARISON: None available. FINDINGS: MRA HEAD: Intracranial internal carotid arteries: No significant abnormality. Anterior cerebral arteries: No significant abnormality. Middle cerebral arteries: No significant abnormality. Intracranial vertebral arteries: No significant abnormality. Basilar artery: No significant abnormality. Posterior cerebral arteries: No significant abnormality. IMPRESSION: No significant abnormality. Signer Name: Gallo Ramsey MD Signed: 02/08/2019 1:59 PM Workstation Name: [id number]
--- NOTE | 2019-02-08 15:07 | Progress Note ---
Assessment and Plan Impression: * Oliguric acute kidney injury secondary to sepsis related ATN --SCr 1.22mg/dl in Sep 2017, 1.8 today * Sepsis * Cellulitis of neck, right --CT Neck: inflammation on the right side of the neck suggestive of cellulitis * Streptococcal bacteremia * Acute encephalopathy * Acute respiratory failure * Metabolic acidosis secondary to lactic acidosis * ?Autoimmune disease * Microscopic hematuria * Proteinuria * Thrombocytopenia Plan: * Renal function overall improved with supportive measures, no indications for renal replacement therapy (creatinine did bump again, will continue to follow) * Continue conservative management for now * Vent management per [facility] * [place] pending; HIV, hepatitis, RPR, ANCA negative. Complements low likely in setting of acute infection, but consider autoimmune disease given presentation * Abx per ID, neurology for consideration of meningitis * Management of platelet abnormalities per hematology * Dose medications for renal function * Avoid potential nephrotoxic agents * Strict I/O Subjective Date of service: 02/08/19 Principal diagnosis: septic shock Interval history: no acute changes overnight. remains intubated. Objective - Exam Narrative Exam: General appearance: well-developed, sick appearing, intubated EENT: ATNC, ETT in place Respiratory: coarse mechanical breath sounds noted Cardiology: regular, S1S2 Gastrointestinal: normal, no tenderness, no distended Integumentary: warm and dry Musculoskeletal: no edema - Vital Signs Vital signs: Vital Signs - 12hr 02/08/19 02/08/19 02/08/19 03:31 04:00 04:31 Temperature 98.9 F Pulse Rate 103 H 93 H 107 H Pulse Rate [ Anterior Bilateral Throughout] Respiratory 25 H 24 24 Rate Respiratory Rate [Anterior Bilateral Throughout] Blood Pressure 138/77 153/89 136/82 O2 Sat by Pulse 97 97 97 Oximetry 02/08/19 02/08/19 02/08/19 05:01 05:30 05:39 Temperature Pulse Rate 104 H 101 H Pulse Rate [ 102 H Anterior Bilateral Throughout] Respiratory 28 H 24 Rate Respiratory 25 H Rate [Anterior Bilateral Throughout] Blood Pressure 145/73 147/72 O2 Sat by Pulse 95 97 Oximetry 02/08/19 02/08/19 02/08/19 05:40 06:00 06:30 Temperature Pulse Rate 113 H 108 H 102 H Pulse Rate [ Anterior Bilateral Throughout] Respiratory 17 25 H Rate Respiratory Rate [Anterior Bilateral Throughout] Blood Pressure 147/72 145/79 139/77 O2 Sat by Pulse 97 100 97 Oximetry 02/08/19 02/08/19 02/08/19 07:01 07:31 07:32 Temperature Pulse Rate 103 H 104 H Pulse Rate [ 101 H Anterior Bilateral Throughout] Respiratory 25 H 25 H Rate Respiratory 14 Rate [Anterior Bilateral Throughout] Blood Pressure 148/70 144/81 O2 Sat by Pulse 97 97 Oximetry 02/08/19 02/08/19 02/08/19 07:36 08:00 08:30 Temperature 99.2 F Pulse Rate 105 H 117 H 106 H Pulse Rate [ Anterior Bilateral Throughout] Respiratory 28 H 26 H Rate Respiratory Rate [Anterior Bilateral Throughout] Blood Pressure 144/81 149/82 144/84 O2 Sat by Pulse 98 98 97 Oximetry 02/08/19 02/08/19 02/08/19 09:00 09:30 10:01 Temperature Pulse Rate 110 H 104 H 100 H Pulse Rate [ Anterior Bilateral Throughout] Respiratory 26 H 26 H 28 H Rate Respiratory Rate [Anterior Bilateral Throughout] Blood Pressure 138/76 145/80 131/85 O2 Sat by Pulse 97 97 98 Oximetry 02/08/19 02/08/19 02/08/19 10:31 11:01 12:00 Temperature 97.9 F Pulse Rate 100 H 104 H Pulse Rate [ Anterior Bilateral Throughout] Respiratory 26 H 26 H Rate Respiratory Rate [Anterior Bilateral Throughout] Blood Pressure 148/84 148/85 O2 Sat by Pulse 98 98 Oximetry - Lab 02/07/19 08:22 02/07/19 01:07 Most recent lab results ABG pH 7.467 pH Units (7.350-7.450) H 02/08/19 04:40 ABG pCO2 34.5 mm Hg 02/08/19 04:40 ABG pO2 87.2 mm Hg (80.0-90.0) 02/08/19 04:40 ABG HCO3 24.4 mmol/L (20.0-26.0) 02/08/19 04:40 ABG O2 Saturation 97.2 % (95.0-99.0) 02/08/19 04:40 Calcium 8.3 mg/dL (8.4-10.2) L 02/07/19 01:07 Magnesium 2.20 mg/dL (1.7-2.3) 02/07/19 01:07 Medications & Allergies - Medications Allergies/Adverse Reactions: Allergies No Known Allergies Allergy (Verified 08/18/18 09:04) Home Medications: Home Medications Medication Instructions Recorded Confirmed Last Taken Type Levothyroxine [Synthroid] 112 mcg PO QAM 02/01/19 02/01/19 Unknown History Lisinopril [Zestril TAB] 40 mg PO QDAY 02/01/19 02/01/19 Unknown History amLODIPine [Norvasc] 10 mg PO DAILY 02/01/19 02/01/19 Unknown History cloNIDine [Catapres] 1 mg PO QDAY 02/01/19 02/01/19 Unknown History Active Medications: Generic Name Dose Route Start Last Admin Trade Name Freq PRN Reason Stop Dose Admin Acetaminophen 650 mg 02/01/19 10:47 02/05/19 16:46 Tylenol PO 650 mg Q4H PRN Administration Pain MILD(1-3)/Fever >100.5/VALENZUELA Albuterol 2.5 mg 02/01/19 10:47 Proventil IH Q4HRT PRN Shortness Of Breath Albuterol/Ipratropium 1 ampul 02/01/19 12:00 02/08/19 07:28 Duoneb *Not For Prn Use* IH 1 ampul Q6HRT AMOL Administration Lipase/Protease/Amylase 1 each 02/05/19 11:04 Pancreazchris Hammond 10,500 Unit FEEDTUBE PRN PRN For Clogged Feeding Tube Famotidine 20 mg 02/07/19 10:00 02/08/19 09:28 Pepcid PO 20 mg DAILY AMOL Administration Folic Acid 1 mg 02/06/19 10:00 02/08/19 09:28 Folvite PO 1 mg QDAY AMOL Administration Hydrophilic Ointment 1 applic 02/01/19 11:09 02/02/19 16:50 Vaseline Lip Therapy TP 1 applic Q2HR PRN Administration Dry Lips Ceftriaxone Sodium 2 gm in 100 mls @ 200 mls/hr 02/05/19 13:00 02/08/19 09:29 Rocephin/Ns 2 Gm/100 Ml IV 100 mls/hr Q12HR AMOL Administration Protocol Diltiazem HCl 100 mg in 100 mls @ 5 mls/hr 02/07/19 12:30 02/08/19 09:18 Cardizem/D5w 100mg/100ml IV 10 mg/hr TITR AMOL 10 mls/hr Administration Protocol 5 MG/HR Levothyroxine Sodium 125 mcg 02/07/19 10:00 02/08/19 09:28 Synthroid PO 125 mcg QAM AMOL Administration Multi-Ingred Cream/Lotion/Oil/Oint 1 applic 02/01/19 11:09 02/02/19 16:50 Artificial Tears Ophth Oint OU 1 applic Q4HR PRN Administration Dry Eye(s) Multivitamins 5 ml 02/06/19 10:00 02/08/19 09:29 Centrum Liq PO 5 ml QDAY AMOL Administration Ondansetron HCl 4 mg 02/01/19 10:47 Zofran IV Q8H PRN Nausea And Vomiting Simple Syrup 15 ml 02/05/19 11:04 Simple Syrup FEEDTUBE PRN PRN Hypoglycemia Simple Syrup 30 ml 02/05/19 11:04 Simple Syrup FEEDTUBE PRN PRN Hypoglycemia Sodium Bicarbonate 325 mg 02/05/19 11:04 Sodium Bicarbonate FEEDTUBE PRN PRN For Clogged Feeding Tube Sodium Chloride 10 ml 02/01/19 22:00 02/08/19 09:29 Sodium Chloride Flush Syringe 10 Ml IV 10 ml BID AMOL Administration Sodium Chloride 10 ml 02/01/19 10:47 Sodium Chloride Flush Syringe 10 Ml IV PRN PRN LINE FLUSH
--- NOTE | 2019-02-08 15:08 | Magnetic Resonance Report ---
MRI BRAIN 02/08/2019 INDICATION / CLINICAL INFORMATION: AMS, meningitis, ARF. TECHNIQUE: Multiplanar, multisequence MR images of the brain were obtained. COMPARISON: None available. FINDINGS: BRAIN / INTRACRANIAL CONTENTS: Unenhanced MR images of the brain were obtained. There is prominent area of restricted diffusion involving the right posterior parietal temporal owen x. Additional patchy areas of restricted diffusion are associated with the deep white matter of the f rontal lobe on the right. Some smaller patchy foci of restricted diffusion are present in the left de ep white matter. There are also some small patchy foci of restricted diffusion in the cerebellar hemispheres bilateral ly. There is no evidence of hemorrhage or mass. Ventricles and sulci are normal in size and shape. EXTRACRANIAL: Unremarkable CRANIOCERVICAL JUNCTION: No significant abnormality. VASCULAR FLOW-VOIDS: No significant abnormality. Incidental note is made of mucosal thickening in the right mastoid air cells and middle ear. IMPRESSION: Acute ischemic changes in the posterior distribution of the right middle cerebral artery, right fron liz and parietal deep white matter, and left frontal deep white matter. Additional foci of ischemic c hange are present in the cerebellar hemispheres bilaterally. Signer Name: Gallo Ramsey MD Signed: 02/08/2019 3:04 PM Workstation Name: [id number]
--- NOTE | 2019-02-08 16:28 | Progress Note ---
Assessment and Plan (1) Sepsis Current Visit: Yes Status: Acute (2) Bacteremia Current Visit: Yes Status: Acute (3) Meningitis Current Visit: Yes Status: Acute (4) Pneumonia Current Visit: Yes Status: Acute (5) Acute respiratory failure Current Visit: Yes Status: Acute (6) Atrial fibrillation with RVR Current Visit: Yes Status: Acute (7) Altered mental status Current Visit: Yes Status: Acute (8) Cellulitis, neck Current Visit: Yes Status: Acute (9) Thrombocytopenia Current Visit: Yes Status: Acute (10) DIANA (acute kidney injury) Current Visit: Yes Status: Acute (11) PFO (patent foramen ovale) Current Visit: Yes Status: Suspected (12) Pulmonary valve vegetation Current Visit: Yes Status: Suspected. Plan on doing TERRENCE if Anesthesia is available Subjective Date of service: 02/08/19 Principal diagnosis: septic shock Interval history: On respirator. SR with frequent PACs. Not on any sedation. Objective Vital Signs Temp Pulse Pulse Resp Resp BP Pulse Ox 02/08/19 15:55 111 H 135/85 99 02/08/19 14:00 99 H 24 02/08/19 12:00 97.9 F 99 H 135/85 99 02/08/19 11:01 104 H 26 H 148/85 98 02/08/19 10:31 100 H 26 H 148/84 98 02/08/19 10:01 100 H 28 H 131/85 98 02/08/19 09:30 104 H 26 H 145/80 97 02/08/19 09:00 110 H 26 H 138/76 97 02/08/19 08:30 106 H 26 H 144/84 97 02/08/19 08:00 99.2 F 117 H 28 H 149/82 98 02/08/19 07:36 105 H 144/81 98 02/08/19 07:32 101 H 14 02/08/19 07:31 104 H 25 H 144/81 97 02/08/19 07:01 103 H 25 H 148/70 97 02/08/19 06:30 102 H 25 H 139/77 97 02/08/19 06:00 108 H 17 145/79 100 02/08/19 05:40 113 H 147/72 97 02/08/19 05:39 102 H 25 H 02/08/19 05:30 101 H 24 147/72 97 02/08/19 05:01 104 H 28 H 145/73 95 02/08/19 04:31 107 H 24 136/82 97 02/08/19 04:00 98.9 F 93 H 24 153/89 97 02/08/19 03:31 103 H 25 H 138/77 97 02/08/19 03:01 104 H 25 H 145/80 97 02/08/19 02:30 98 H 25 H 147/94 97 02/08/19 02:01 103 H 25 H 150/85 97 02/08/19 01:31 125 H 26 H 146/80 97 02/08/19 01:00 106 H 25 H 138/77 98 02/08/19 00:34 87 125/64 98 02/08/19 00:31 90 21 125/64 97 02/08/19 00:00 98.7 F 103 H 21 131/68 97 02/07/19 23:31 91 H 22 127/68 97 02/07/19 23:03 88 21 129/70 97 02/07/19 23:01 93 H 21 129/70 98 02/07/19 22:30 88 21 131/80 97 02/07/19 22:00 92 H 22 122/68 97 02/07/19 21:30 92 H 22 125/60 97 02/07/19 21:01 85 20 120/69 97 02/07/19 20:31 100 H 25 H 136/79 96 02/07/19 20:19 96 H 26 H 02/07/19 20:02 93 H 148/78 95 02/07/19 20:00 97.7 F 102 H 31 H 148/78 95 02/07/19 19:30 100 H 31 H 147/89 95 02/07/19 19:01 102 H 31 H 148/88 95 02/07/19 18:30 99 H 32 H 150/88 95 02/07/19 18:00 96 H 31 H 155/96 95 02/07/19 17:30 95 H 31 H 147/80 96 02/07/19 17:00 96 H 29 H 156/91 97 02/07/19 16:39 29 H 02/07/19 16:30 96 H 30 H 151/95 97 - Physical Examination Neuro: Positive: Other (intubated, sedated) - Imaging and Cardiology EKG: report reviewed, image reviewed Echo: report reviewed ( 02/02/2019 showed EF 55-60%, mild to mod LVH, atrial septal aneurysm, aortic valve heavily calcified, dense mitral annular calcification, mild MR, mild TR, mild ID, bubble study suggestive of PFO, ? pulmonic valve vegetation.)
--- NOTE | 2019-02-08 19:30 | Anesthesia Consultation ---
Anesthesia Consult and Med Hx Date of service: 02/08/19 - Airway Intubation Access Assessment: Possibly Difficult (oETT in situ) - Pulmonary Exam CTA: No - Cardiac Exam Cardiac Exam: RRR - Pre-Operative Health Status ASA Pre-Surgery Classification: ASA4 Proposed Anesthetic Plan: MAC - Pulmonary Hx Respiratory Symptoms: Yes (strep PNA on ventilator) - Cardiovascular System Hx Hypertension: Yes Hx Heart Attack/AMI: Yes (NSTEMI this admission 2/2 demand ischemia) Hx Cardia Arrhythmia: Yes (a-fib with RVR now rate controlled on amiodarone and BB) Hx Pacemaker: No Hx Internal Defibrillator: No Hx Valvular Heart Disease: Yes (moderate MR) - Central Nervous System CVA: No - Endocrine Hx Renal Disease: Yes (DIANA) Hx Hypothyroidism: Yes - Hematic Hx Anemia: Yes - Other Systems Hx Obesity: Yes - Additional Comments Anesthesia Medical History Comments: Presented with AMS. Hospital course complicated by sepsis 2/2 strep bacteremia/PNA/meningitis, DIANA, respiratory failure on ventilator, NSTEMI, and af-b w/ RVR. TTE showed EF 55-60% and PFO. Scheduled for TERRENCE.
[2019-02-08] MEDS: MINERAL OIL/PETROLATUM, WHITE OPHTH OINT 3.5 GM OU PRN (21:18)
[2019-02-09] MEDS: IPRATROPIUM/ALBUTEROL SULFATE 3 ML AMPUL.NEB IH SCH ×4 (01:24→20:04)
[2019-02-09 04:05] LABS: Hematocrit 30.3 % (30.3-42.9); Hemoglobin 9.6 gm/dl (10.1-14.3); Mean Corpuscular HGB Conc 32 % (30-34); Mean Corpuscular Volume 91 fl (79-97); Platelet Count 113 K/mm3 (140-440); Red Blood Count 3.32 M/mm3 (3.65-5.03); Red Cell Distribution Width 15.9 % (13.2-15.2)
[2019-02-09 04:22] LABS: Albumin 1.6 g/dL (3.9-5); Calcium 8.1 mg/dL (8.4-10.2)
[2019-02-09 05:02] LABS: Band Neutrophils # (Manual) 0.4 K/mm3; Basophils % (Manual) 0 % (0.0-1.8); Eosinophils % (Manual) 0 % (0.0-4.3); Monocytes % (Manual) 0 % (0.0-7.3); Total Cells Counted 100
[2019-02-09 05:03] LABS: Anisocytosis 1+; Platelet Estimate Consistent w Auto
[2019-02-09] MEDS: dilTIAZem/D5W 100 MG/100 ML BAG IV SCH ×3 (05:32→22:21)
[2019-02-09 05:38] LABS: ABG Base Excess 1.2 mmol/L (-2.0-3.0); ABG HCO3 24.8 mmol/L (20.0-26.0); ABG Methemoglobin 0.6 % (0.0-1.5); ABG Oxygen Saturation 97.6 % (95.0-99.0); ABG PCO2 34.2 mm Hg; ABG PH 7.478 pH Units (7.350-7.450); ABG PO2 94.5 mm Hg (80.0-90.0)
--- NOTE | 2019-02-09 07:45 | Hem/Onc Progress Note ---
Assessment and Plan 1. Thrombocytopenia, sepsis/infection/antibiotic related. Folate level is low, B12 is normal. Serum iron is low, but ferritin is not low. HIV negative. Fibrinogen level is not low. PT, PTT is not abnormal. Supportive care at this time will help the patient. 2. Diabetes. 3. Hypothyroidism. 4. History of renal impairment, on supportive care. 5. Intubation for respiratory issues. 6. Neurology team saw the patient. Neurology thinks it is septic metabolic encephalopathy. I will follow the patient during inpatient stay. 02/09 plt > 100 low folate on replaement pt still - on vent - unresponsive neurology - ? meningitis as per RN - TERRENCE planned - Patient Problems (1) Thrombocytopenia Current Visit: Yes Status: Acute Subjective Date of service: 02/09/19 Principal diagnosis: low plt Interval history: not responding Objective - Exam Narrative Exam: Pain - not evaluable General appearance intubated Performance status complete dependent Eyes - no icterus ENT - no bleeding - on vent LNs cervical not palpable Neck - no LN Respiratory Normal Breath sounds - CTA anteriorly CVS S1 S2 + Extremities normal temperature General GI Soft Rectal deferred female - deferred Skin warm Musculoskeletal not moving Neurologically not responding - Constitutional Vitals: Last Vital Signs Temp 98.8 F 02/09/19 02:46 Pulse 86 02/09/19 07:00 Resp 18 02/09/19 07:00 BP 132/72 02/09/19 07:00 Pulse Ox 99 02/09/19 07:00 - Labs Lab Results: Laboratory Results - last 24 hr 02/01/19 02/02/19 02/09/19 19:28 13:02 03:17 WBC 14.9 H RBC 3.32 L Hgb 9.6 L Hct 30.3 MCV 91 MCH 29 MCHC 32 RDW 15.9 H Plt Count 113 L Add Manual Diff Complete Total Counted 100 Seg Neuts % (Manual) 96.0 H Band Neutrophils % 3.0 Lymphocytes % (Manual) 1.0 L Reactive Lymphs % (Man) 0 Monocytes % (Manual) 0 Eosinophils % (Manual) 0 Basophils % (Manual) 0 Metamyelocytes % 0 Myelocytes % 0 Promyelocytes % 0 Blast Cells % 0 Nucleated RBC % Not Reportable Seg Neutrophils # Man 14.3 H Band Neutrophils # 0.4 Lymphocytes # (Manual) 0.1 L Abs React Lymphs (Man) 0.0 Monocytes # (Manual) 0.0 Eosinophils # (Manual) 0.0 Basophils # (Manual) 0.0 Metamyelocytes # 0.0 Myelocytes # 0.0 Promyelocytes # 0.0 Blast Cells # 0.0 WBC Morphology Not Reportable Hypersegmented Neuts Not Reportable Hyposegmented Neuts Not Reportable Hypogranular Neuts Not Reportable Smudge Cells Not Reportable Toxic Granulation Not Reportable Toxic Vacuolation Not Reportable Dohle Bodies Not Reportable Pelger-Huet Anomaly Not Reportable Raghav Rods Not Reportable Platelet Estimate Consistent w auto Clumped Platelets Not Reportable Plt Clumps, EDTA Not Reportable Large Platelets Not Reportable Giant Platelets Not Reportable Platelet Satelliting Not Reportable Plt Morphology Comment Not Reportable RBC Morphology Not Reportable Dimorphic RBCs Not Reportable Polychromasia Not Reportable Hypochromasia Not Reportable Poikilocytosis Not Reportable Anisocytosis 1+ Microcytosis Not Reportable Macrocytosis Not Reportable Spherocytes Not Reportable Pappenheimer Bodies Not Reportable Sickle Cells Not Reportable Target Cells Not Reportable Tear Drop Cells Not Reportable Ovalocytes Not Reportable Helmet Cells Not Reportable [place] Bodies Not Reportable [place] Rings Not Reportable [place] Cells Not Reportable Bite Cells Not Reportable Crenated Cell Not Reportable Elliptocytes Not Reportable Acanthocytes (Spur) Not Reportable Rouleaux Not Reportable Hemoglobin C Crystals Not Reportable Schistocytes Not Reportable Malaria parasites Not Reportable [place] Bodies Not Reportable Hem Pathologist Commnt No ABG pH ABG pCO2 ABG pO2 ABG HCO3 ABG O2 Saturation ABG O2 Content ABG Base Excess ABG Hemoglobin ABG Carboxyhemoglobin ABG Methemoglobin Oxyhemoglobin FiO2 Sodium Potassium Chloride Carbon Dioxide Anion Gap BUN Creatinine Estimated GFR BUN/Creatinine Ratio Glucose Calcium Total Bilirubin AST ALT Alkaline Phosphatase Total Protein Albumin Albumin/Globulin Ratio Proteinase 3 (PR3) Ab <1.0 Myeloperoxidase Ab <1.0 Miscellaneous Test Flexitest 1 02/09/19 02/09/19 03:17 04:35 WBC RBC Hgb Hct MCV MCH MCHC RDW Plt Count Add Manual Diff Total Counted Seg Neuts % (Manual) Band Neutrophils % Lymphocytes % (Manual) Reactive Lymphs % (Man) Monocytes % (Manual) Eosinophils % (Manual) Basophils % (Manual) Metamyelocytes % Myelocytes % Promyelocytes % Blast Cells % Nucleated RBC % Seg Neutrophils # Man Band Neutrophils # Lymphocytes # (Manual) Abs React Lymphs (Man) Monocytes # (Manual) Eosinophils # (Manual) Basophils # (Manual) Metamyelocytes # Myelocytes # Promyelocytes # Blast Cells # WBC Morphology Hypersegmented Neuts Hyposegmented Neuts Hypogranular Neuts Smudge Cells Toxic Granulation Toxic Vacuolation Dohle Bodies Pelger-Huet Anomaly Raghav Rods Platelet Estimate Clumped Platelets Plt Clumps, EDTA Large Platelets Giant Platelets Platelet Satelliting Plt Morphology Comment RBC Morphology Dimorphic RBCs Polychromasia Hypochromasia Poikilocytosis Anisocytosis Microcytosis Macrocytosis Spherocytes Pappenheimer Bodies Sickle Cells Target Cells Tear Drop Cells Ovalocytes Helmet Cells [place] Bodies [place] Rings Duc Cells Bite Cells Crenated Cell Elliptocytes Acanthocytes (Spur) Rouleaux Hemoglobin C Crystals Schistocytes Malaria parasites Riccardo Bodies Hem Pathologist Commnt ABG pH 7.478 H ABG pCO2 34.2 ABG pO2 94.5 H ABG HCO3 24.8 ABG O2 Saturation 97.6 ABG O2 Content 8.4 ABG Base Excess 1.2 ABG Hemoglobin 6.1 L ABG Carboxyhemoglobin 1.4 ABG Methemoglobin 0.6 Oxyhemoglobin 95.6 FiO2 25 Sodium 147 H Potassium 3.9 Chloride 110.4 H Carbon Dioxide 24 Anion Gap 17 BUN 114 H Creatinine 2.2 H Estimated GFR 28 BUN/Creatinine Ratio 52 Glucose 270 H Calcium 8.1 L Total Bilirubin 0.30 AST 31 ALT 9 Alkaline Phosphatase 104 Total Protein 7.6 Albumin 1.6 L Albumin/Globulin Ratio 0.3 Proteinase 3 (PR3) Ab Myeloperoxidase Ab Miscellaneous Test Medications & Allergies - Medications Allergies/Adverse Reactions: Allergies No Known Allergies Allergy (Verified 08/18/18 09:04) Home Medications: Home Medications Medication Instructions Recorded Confirmed Last Taken Type Levothyroxine [Synthroid] 112 mcg PO QAM 02/01/19 02/01/19 Unknown History Lisinopril [Zestril TAB] 40 mg PO QDAY 02/01/19 02/01/19 Unknown History amLODIPine [Norvasc] 10 mg PO DAILY 02/01/19 02/01/19 Unknown History cloNIDine [Catapres] 1 mg PO QDAY 02/01/19 02/01/19 Unknown History Active Medications: Generic Name Dose Route Start Last Admin Trade Name Freq PRN Reason Stop Dose Admin Acetaminophen 650 mg 02/01/19 10:47 02/05/19 16:46 Tylenol PO 650 mg Q4H PRN Administration Pain MILD(1-3)/Fever >100.5/VALENZUELA Albuterol 2.5 mg 02/01/19 10:47 Proventil IH Q4HRT PRN Shortness Of Breath Albuterol/Ipratropium 1 ampul 02/01/19 12:00 02/09/19 01:24 Duoneb *Not For Prn Use* IH 1 ampul Q6HRT AMOL Administration Lipase/Protease/Amylase 1 each 02/05/19 11:04 Pancreaze 10,500 Unit FEEDTUBE PRN PRN For Clogged Feeding Tube Famotidine 20 mg 02/07/19 10:00 02/08/19 09:28 Pepcid PO 20 mg DAILY AMOL Administration Folic Acid 1 mg 02/06/19 10:00 02/08/19 09:28 Folvite PO 1 mg QDAY AMOL Administration Hydrophilic Ointment 1 applic 02/01/19 11:09 02/02/19 16:50 Vaseline Lip Therapy TP 1 applic Q2HR PRN Administration Dry Lips Ceftriaxone Sodium 2 gm in 100 mls @ 200 mls/hr 02/05/19 13:00 02/08/19 21:17 Rocephin/Ns 2 Gm/100 Ml IV 100 mls/hr Q12HR AMOL Administration Protocol Diltiazem HCl 100 mg in 100 mls @ 5 mls/hr 02/07/19 12:30 02/09/19 05:32 Cardizem/D5w 100mg/100ml IV 10 mg/hr TITR AMOL 10 mls/hr Administration Protocol 5 MG/HR Levothyroxine Sodium 125 mcg 02/07/19 10:00 02/08/19 09:28 Synthroid PO 125 mcg QAM AMOL Administration Multi-Ingred Cream/Lotion/Oil/Oint 1 applic 02/01/19 11:09 02/08/19 21:18 Artificial Tears Ophth Oint OU 1 applic Q4HR PRN Administration Dry Eye(s) Multivitamins 5 ml 02/06/19 10:00 02/08/19 09:29 Centrum Liq PO 5 ml QDAY AMOL Administration Ondansetron HCl 4 mg 02/01/19 10:47 Zofran IV Q8H PRN Nausea And Vomiting Simple Syrup 15 ml 02/05/19 11:04 Simple Syrup FEEDTUBE PRN PRN Hypoglycemia Simple Syrup 30 ml 02/05/19 11:04 Simple Syrup FEEDTUBE PRN PRN Hypoglycemia Sodium Bicarbonate 325 mg 02/05/19 11:04 Sodium Bicarbonate FEEDTUBE PRN PRN For Clogged Feeding Tube Sodium Chloride 10 ml 02/01/19 22:00 02/08/19 21:18 Sodium Chloride Flush Syringe 10 Ml IV 10 ml BID AMOL Administration Sodium Chloride 10 ml 02/01/19 10:47 Sodium Chloride Flush Syringe 10 Ml IV PRN PRN LINE FLUSH
[2019-02-09] MEDS ORDERED: ROCURONIUM 50 MG/5 ML INJ IV ONE (08:51)
[2019-02-09] MEDS ORDERED: SUCCINYLCHOLINE CHLORIDE 200 MG/10 ML INJ MDV ONE (08:52)
[2019-02-09] MEDS ORDERED: PHENYLEPHRINE 10 MG/1 ML INJ SDV ONE (08:52)
[2019-02-09] MEDS ORDERED: ePHEDrine SULFATE 50 MG/1 ML INJ ONE (08:53)
[2019-02-09] MEDS ORDERED: PROPOFOL 200 MG/20 ML VIAL IV ONE (08:55)
[2019-02-09] MEDS: cefTRIAXone/NS 2 GM/100 ML 2 GM/100 ML BAG IV SCH ×2 (09:56→21:15)
[2019-02-09] MEDS: MULTIVITAMINS 5 ML ORAL LIQUID PO SCH (09:57)
[2019-02-09] MEDS: FOLIC ACID 1 MG TAB PO SCH (09:57)
[2019-02-09] MEDS: FAMOTIDINE 20 MG TAB PO SCH (09:57)
[2019-02-09] MEDS: LEVOTHYROXINE 125 MCG TAB PO SCH (09:57)
--- NOTE | 2019-02-09 10:47 | Progress Note ---
Assessment and Plan Impression: * Oliguric acute kidney injury secondary to sepsis related ATN --SCr 1.22mg/dl in Sep 2017, 1.2->1.8->2.2 today * Sepsis * Azotemia: BUN increased out of proportion to creatinine; may be related to intravascular depletion, also consider GI bleed although blood counts stable. No recent steroids or catabolic agents * Cellulitis of neck, right --CT Neck: inflammation on the right side of the neck suggestive of cellulitis * Streptococcal bacteremia * Acute encephalopathy * Acute respiratory failure * Metabolic acidosis secondary to lactic acidosis * ?Autoimmune disease * Microscopic hematuria * Proteinuria * Thrombocytopenia Plan: * Renal function worsening again, suspect from underlying etiology. No contrast used in recent imaging studies, and no episodes of hypotension. Will recheck urine microscopy * No acute indications for renal replacement therapy, but will continue to assess for needs based on electrolytes and urine output/volume status * Consider initiation of free water or half normal saline for hydration with hypernatremia and azotemia * Continue conservative management for now per primary, maintain MAP>65 * Vent management per [facility] * [place] pending; HIV, hepatitis, RPR, ANCA negative. Complements low likely in setting of acute infection, but consider autoimmune disease given presentation. Would consider empiric steroids for autoimmune disease/vasculitis but need to ensure no infection first. * Abx per ID * Reviewed all websphere consultant notes * Management of platelet abnormalities per hematology * Dose medications for renal function * Avoid potential nephrotoxic agents * Strict I/O Subjective Date of service: 02/09/19 Principal diagnosis: septic shock Interval history: no acute changes overnight. remains intubated. plan for TERRENCE this AM per family at bedside. reviewed case and renal prognosis with family. Objective - Exam Narrative Exam: General appearance: well-developed, sick appearing, intubated EENT: ATNC, ETT in place Respiratory: coarse mechanical breath sounds noted Cardiology: regular, S1S2 Gastrointestinal: normal, no tenderness, no distended Integumentary: warm and dry Musculoskeletal: no edema - Vital Signs Vital signs: Vital Signs - 12hr 02/08/19 02/08/19 02/08/19 23:01 23:11 23:25 Temperature 99.5 F Pulse Rate 105 H 127 H Pulse Rate [ Anterior Bilateral Throughout] Pulse Rate [ From Monitor] Respiratory 25 H 23 Rate Respiratory Rate [Anterior Bilateral Throughout] Blood Pressure 151/69 151/69 O2 Sat by Pulse 99 99 Oximetry 02/08/19 02/09/19 02/09/19 23:30 00:00 00:10 Temperature Pulse Rate 110 H 94 H 102 H Pulse Rate [ Anterior Bilateral Throughout] Pulse Rate [ 112 H From Monitor] Respiratory 24 23 Rate Respiratory Rate [Anterior Bilateral Throughout] Blood Pressure 144/73 147/85 132/63 O2 Sat by Pulse 98 98 100 Oximetry 02/09/19 02/09/19 02/09/19 00:31 01:00 01:25 Temperature Pulse Rate 101 H 99 H Pulse Rate [ 98 H Anterior Bilateral Throughout] Pulse Rate [ From Monitor] Respiratory 24 23 Rate Respiratory 14 Rate [Anterior Bilateral Throughout] Blood Pressure 147/85 132/63 O2 Sat by Pulse 99 100 Oximetry 02/09/19 02/09/19 02/09/19 01:30 02:00 02:30 Temperature Pulse Rate 101 H 100 H 96 H Pulse Rate [ Anterior Bilateral Throughout] Pulse Rate [ From Monitor] Respiratory 14 22 23 Rate Respiratory Rate [Anterior Bilateral Throughout] Blood Pressure 135/67 140/74 134/77 O2 Sat by Pulse 100 100 100 Oximetry 02/09/19 02/09/19 02/09/19 02:46 03:00 03:30 Temperature 98.8 F Pulse Rate 101 H 115 H Pulse Rate [ Anterior Bilateral Throughout] Pulse Rate [ From Monitor] Respiratory 24 24 Rate Respiratory Rate [Anterior Bilateral Throughout] Blood Pressure 148/71 142/68 O2 Sat by Pulse 100 Oximetry 02/09/19 02/09/19 02/09/19 04:00 04:01 04:31 Temperature Pulse Rate 107 H 108 H Pulse Rate [ Anterior Bilateral Throughout] Pulse Rate [ 103 H From Monitor] Respiratory 23 23 Rate Respiratory Rate [Anterior Bilateral Throughout] Blood Pressure 154/72 138/66 O2 Sat by Pulse 100 Oximetry 02/09/19 02/09/19 02/09/19 05:01 05:24 05:30 Temperature Pulse Rate 117 H 108 H 102 H Pulse Rate [ Anterior Bilateral Throughout] Pulse Rate [ From Monitor] Respiratory 21 23 Rate Respiratory Rate [Anterior Bilateral Throughout] Blood Pressure 137/70 137/70 145/70 O2 Sat by Pulse 100 Oximetry 02/09/19 02/09/19 02/09/19 06:00 06:30 07:00 Temperature Pulse Rate 107 H 100 H 86 Pulse Rate [ Anterior Bilateral Throughout] Pulse Rate [ From Monitor] Respiratory 20 20 18 Rate Respiratory Rate [Anterior Bilateral Throughout] Blood Pressure 137/69 143/66 132/72 O2 Sat by Pulse 100 100 99 Oximetry 02/09/19 02/09/19 02/09/19 07:30 08:00 08:01 Temperature 97.6 F Pulse Rate 106 H 98 H Pulse Rate [ Anterior Bilateral Throughout] Pulse Rate [ 110 H From Monitor] Respiratory 24 24 20 Rate Respiratory Rate [Anterior Bilateral Throughout] Blood Pressure 148/76 143/72 O2 Sat by Pulse 100 100 100 Oximetry 02/09/19 02/09/19 08:26 08:31 Temperature Pulse Rate 104 H 108 H Pulse Rate [ 107 H Anterior Bilateral Throughout] Pulse Rate [ From Monitor] Respiratory 24 Rate Respiratory 23 Rate [Anterior Bilateral Throughout] Blood Pressure 143/63 143/63 O2 Sat by Pulse 98 98 Oximetry - Lab 02/09/19 03:17 02/09/19 03:17 Most recent lab results ABG pH 7.478 pH Units (7.350-7.450) H 02/09/19 04:35 ABG pCO2 34.2 mm Hg 02/09/19 04:35 ABG pO2 94.5 mm Hg (80.0-90.0) H 02/09/19 04:35 ABG HCO3 24.8 mmol/L (20.0-26.0) 02/09/19 04:35 ABG O2 Saturation 97.6 % (95.0-99.0) 02/09/19 04:35 Calcium 8.1 mg/dL (8.4-10.2) L 02/09/19 03:17 Magnesium 2.20 mg/dL (1.7-2.3) 02/07/19 01:07 Medications & Allergies - Medications Allergies/Adverse Reactions: Allergies No Known Allergies Allergy (Verified 08/18/18 09:04) Home Medications: Home Medications Medication Instructions Recorded Confirmed Last Taken Type Levothyroxine [Synthroid] 112 mcg PO QAM 02/01/19 02/01/19 Unknown History Lisinopril [Zestril TAB] 40 mg PO QDAY 02/01/19 02/01/19 Unknown History amLODIPine [Norvasc] 10 mg PO DAILY 02/01/19 02/01/19 Unknown History cloNIDine [Catapres] 1 mg PO QDAY 02/01/19 02/01/19 Unknown History Active Medications: Generic Name Dose Route Start Last Admin Trade Name Freq PRN Reason Stop Dose Admin Acetaminophen 650 mg 02/01/19 10:47 02/05/19 16:46 Tylenol PO 650 mg Q4H PRN Administration Pain MILD(1-3)/Fever >100.5/VALENZUELA Albuterol 2.5 mg 02/01/19 10:47 Proventil IH Q4HRT PRN Shortness Of Breath Albuterol/Ipratropium 1 ampul 02/01/19 12:00 02/09/19 08:26 Duoneb *Not For Prn Use* IH 1 ampul Q6HRT AMOL Administration Lipase/Protease/Amylase 1 each 02/05/19 11:04 Pancreazchris [place] 10,500 Unit FEEDTUBE PRN PRN For Clogged Feeding Tube Famotidine 20 mg 02/07/19 10:00 02/09/19 09:57 Pepcid PO 20 mg DAILY AMOL Administration Folic Acid 1 mg 02/06/19 10:00 02/09/19 09:57 Folvite PO 1 mg QDAY AMOL Administration Hydrophilic Ointment 1 applic 02/01/19 11:09 02/02/19 16:50 Vaseline Lip Therapy TP 1 applic Q2HR PRN Administration Dry Lips Ceftriaxone Sodium 2 gm in 100 mls @ 200 mls/hr 02/05/19 13:00 02/09/19 09:56 Rocephin/Ns 2 Gm/100 Ml IV 100 mls/hr Q12HR AMOL Administration Protocol Diltiazem HCl 100 mg in 100 mls @ 5 mls/hr 02/07/19 12:30 02/09/19 07:15 Cardizem/D5w 100mg/100ml IV 15 mg/hr TITR AMOL 15 mls/hr Titration Protocol 5 MG/HR Levothyroxine Sodium 125 mcg 02/07/19 10:00 02/09/19 09:57 Synthroid PO 125 mcg QAM AMOL Administration Metoprolol Tartrate 5 mg 02/09/19 11:00 Lopressor IV 02/09/19 11:01 ONCE ONE Multi-Ingred Cream/Lotion/Oil/Oint 1 applic 02/01/19 11:09 02/08/19 21:18 Artificial Tears Ophth Oint OU 1 applic Q4HR PRN Administration Dry Eye(s) Multivitamins 5 ml 02/06/19 10:00 02/09/19 09:57 Centrum Liq PO 5 ml QDAY AMOL Administration Ondansetron HCl 4 mg 02/01/19 10:47 Zofran IV Q8H PRN Nausea And Vomiting Simple Syrup 15 ml 02/05/19 11:04 Simple Syrup FEEDTUBE PRN PRN Hypoglycemia Simple Syrup 30 ml 02/05/19 11:04 Simple Syrup FEEDTUBE PRN PRN Hypoglycemia Sodium Bicarbonate 325 mg 02/05/19 11:04 Sodium Bicarbonate FEEDTUBE PRN PRN For Clogged Feeding Tube Sodium Chloride 10 ml 02/01/19 22:00 02/09/19 09:58 Sodium Chloride Flush Syringe 10 Ml IV 10 ml BID AMOL Administration Sodium Chloride 10 ml 02/01/19 10:47 Sodium Chloride Flush Syringe 10 Ml IV PRN PRN LINE FLUSH
[2019-02-09] MEDS ORDERED: METOPROLOL TARTRATE 5 MG/5 ML INJ IV ONE (11:00)
--- NOTE | 2019-02-09 11:07 | Progress Note ---
Assessment and Plan Imp: 1. Neck cellulitis 2. Strep pneumonae Bacteremia 3. Severe sepsis 4. DIANA 5. Hyperkalemia, resolved 6. Lactic acidosis, resolved 7. Acute respiratory failure, hypoxia, tolerated CPAP trial 8. Metabolic encephalopathy 9. Thrombocytopenia s/p plt transfusion 10. Bilateral pneumonia worsening 11. AMS ? etiology. LP non revealing Rec: 1. ABX per ID 2. Spoke with Neuro, overall prognosis is poor but still no definitive diagnosis. Cousin asked about trach and peg and at this time will discuss with them but she is not the decision maker. Patient has a mother and a young son. Need to talk to CM about who the decision would fall on. Will order Stat EEG 3. Hyperkalemia per renal, patient now with hypernatremia, likely from insensible losses. Need to increase free water. 4. All sedation is currently off and has now been discontinued from the AUG 5. SCDs, Pepcid, avoid Lovenox due to thrombocytopenia 6. Prognosis is guarded; no family present 7. Continue with ventilator 8. Worsening Azotemia. Renal following but output appears to be dropping off as well. will ask Renal if they suspect that she may need HD. Spoke with renal, want to hydrate first as her BUN and Cr were much better 2 days ago. May need biopsy, may need pulse dose steroids but will decide on the steroids next week when I return. Total critical care time 31 minutes Subjective Date of service: 02/09/19 Principal diagnosis: septic shock Interval history: Had TERRENCE this am which was negative. No vegatations. Remains unresponsive. MRI was negative as well. Spoke to neuro and an EEG was ordered but does not appear to have been done. Cousin at bedside who works in ICU and has medical knowledge. Objective Vital Signs - 12hr 02/08/19 02/08/19 02/08/19 23:11 23:25 23:30 Temperature 99.5 F Pulse Rate 127 H 110 H Pulse Rate [ Anterior Bilateral Throughout] Pulse Rate [ From Monitor] Respiratory 23 24 Rate Respiratory Rate [Anterior Bilateral Throughout] Blood Pressure 151/69 144/73 O2 Sat by Pulse 99 98 Oximetry 02/09/19 02/09/19 02/09/19 00:00 00:10 00:31 Temperature Pulse Rate 94 H 102 H 101 H Pulse Rate [ Anterior Bilateral Throughout] Pulse Rate [ 112 H From Monitor] Respiratory 23 24 Rate Respiratory Rate [Anterior Bilateral Throughout] Blood Pressure 147/85 132/63 147/85 O2 Sat by Pulse 98 100 99 Oximetry 02/09/19 02/09/19 02/09/19 01:00 01:25 01:30 Temperature Pulse Rate 99 H 101 H Pulse Rate [ 98 H Anterior Bilateral Throughout] Pulse Rate [ From Monitor] Respiratory 23 14 Rate Respiratory 14 Rate [Anterior Bilateral Throughout] Blood Pressure 132/63 135/67 O2 Sat by Pulse 100 100 Oximetry 02/09/19 02/09/19 02/09/19 02:00 02:30 02:46 Temperature 98.8 F Pulse Rate 100 H 96 H Pulse Rate [ Anterior Bilateral Throughout] Pulse Rate [ From Monitor] Respiratory 22 23 Rate Respiratory Rate [Anterior Bilateral Throughout] Blood Pressure 140/74 134/77 O2 Sat by Pulse 100 100 Oximetry 02/09/19 02/09/19 02/09/19 03:00 03:30 04:00 Temperature Pulse Rate 101 H 115 H Pulse Rate [ Anterior Bilateral Throughout] Pulse Rate [ 103 H From Monitor] Respiratory 24 24 Rate Respiratory Rate [Anterior Bilateral Throughout] Blood Pressure 148/71 142/68 O2 Sat by Pulse 100 100 Oximetry 02/09/19 02/09/19 02/09/19 04:01 04:31 05:01 Temperature Pulse Rate 107 H 108 H 117 H Pulse Rate [ Anterior Bilateral Throughout] Pulse Rate [ From Monitor] Respiratory 23 23 21 Rate Respiratory Rate [Anterior Bilateral Throughout] Blood Pressure 154/72 138/66 137/70 O2 Sat by Pulse Oximetry 02/09/19 02/09/19 02/09/19 05:24 05:30 06:00 Temperature Pulse Rate 108 H 102 H 107 H Pulse Rate [ Anterior Bilateral Throughout] Pulse Rate [ From Monitor] Respiratory 23 20 Rate Respiratory Rate [Anterior Bilateral Throughout] Blood Pressure 137/70 145/70 137/69 O2 Sat by Pulse 100 100 Oximetry 02/09/19 02/09/19 02/09/19 06:30 07:00 07:30 Temperature Pulse Rate 100 H 86 106 H Pulse Rate [ Anterior Bilateral Throughout] Pulse Rate [ From Monitor] Respiratory 20 18 24 Rate Respiratory Rate [Anterior Bilateral Throughout] Blood Pressure 143/66 132/72 148/76 O2 Sat by Pulse 100 99 100 Oximetry 02/09/19 02/09/19 02/09/19 08:00 08:01 08:26 Temperature 97.6 F Pulse Rate 98 H 104 H Pulse Rate [ 107 H Anterior Bilateral Throughout] Pulse Rate [ 110 H From Monitor] Respiratory 24 20 Rate Respiratory 23 Rate [Anterior Bilateral Throughout] Blood Pressure 143/72 143/63 O2 Sat by Pulse 100 100 98 Oximetry 02/09/19 08:31 Temperature Pulse Rate 108 H Pulse Rate [ Anterior Bilateral Throughout] Pulse Rate [ From Monitor] Respiratory 24 Rate Respiratory Rate [Anterior Bilateral Throughout] Blood Pressure 143/63 O2 Sat by Pulse 98 Oximetry Constitutional: comatose, other (orally intubated on mechanical ventilator. Not on sedation) Eyes: non-icteric ENT: oropharynx moist Neck: supple Effort: normal Ascultation: Bilateral: other (coarse BS bilaterally improved) Cardiovascular: other (tachy, RR; no mrg) Gastrointestinal: normoactive bowel sounds, soft, non-tender, non-distended Integumentary: normal Extremities: no cyanosis, no edema, pink and warm Neurologic: unable to assess (due to sedation) Psychiatric: other (unable to assess) CBC and BMP: 02/09/19 03:17 02/09/19 03:17 ABG, PT/INR, D-dimer: ABG POC ABG pH 7.477 (7.35-7.45) H 02/07/19 10:58 ABG pH 7.478 pH Units (7.350-7.450) H 02/09/19 04:35 POC ABG pCO2 34.8 (35-45) L 02/07/19 10:58 ABG pCO2 34.2 mm Hg 02/09/19 04:35 POC ABG pO2 118 (80-105) H 02/07/19 10:58 ABG pO2 94.5 mm Hg (80.0-90.0) H 02/09/19 04:35 POC ABG HCO3 25.8 (22-26 mml/L) 02/07/19 10:58 POC ABG Total CO2 27 (23-27mmol/L) 02/07/19 10:58 POC ABG O2 Sat 99 02/07/19 10:58 ABG O2 Saturation 97.6 % (95.0-99.0) 02/09/19 04:35 PT/INR, D-dimer PT 16.3 Sec. (12.2-14.9) H 02/06/19 07:35 INR 1.35 (0.87-1.13) H 02/06/19 07:35 Abnormal lab findings: Abnormal Labs 02/01/19 02/01/19 02/01/19 07:16 07:16 07:16 WBC 17.7 H RBC Hgb Hct RDW 16.9 H Plt Count 62 L Seg Neuts % (Manual) 95.0 H Lymphocytes % (Manual) 0 L Seg Neutrophils # Man 16.8 H Lymphocytes # (Manual) 0.0 L PT 15.0 H INR 1.21 H APTT Thrombin Time 20.0 H POC ABG pH ABG pH POC ABG pCO2 POC ABG pO2 ABG pO2 ABG HCO3 ABG Base Excess ABG Hemoglobin Oxyhemoglobin Sodium 135 L Potassium Chloride 97.7 L Carbon Dioxide 19 L BUN 51 H Creatinine 4.5 H Glucose 112 H POC Glucose Lactic Acid Calcium Iron TIBC Direct Bilirubin AST Troponin T 0.181 H* C-Reactive Protein Total Protein Albumin LDL Cholesterol Direct 34 L HDL Cholesterol 20 L Vitamin B12 Folate TSH Urine WBC (Auto) Complement C3 Complement C4 02/01/19 02/01/19 02/01/19 07:29 07:29 07:43 WBC RBC Hgb Hct RDW Plt Count Seg Neuts % (Manual) Lymphocytes % (Manual) Seg Neutrophils # Man Lymphocytes # (Manual) PT INR APTT Thrombin Time POC ABG pH ABG pH POC ABG pCO2 POC ABG pO2 ABG pO2 ABG HCO3 ABG Base Excess ABG Hemoglobin Oxyhemoglobin Sodium Potassium Chloride Carbon Dioxide BUN Creatinine Glucose POC Glucose Lactic Acid 4.80 H* Calcium Iron TIBC Direct Bilirubin 0.7 H AST 42 H Troponin T C-Reactive Protein Total Protein 8.9 H Albumin 2.3 L LDL Cholesterol Direct HDL Cholesterol Vitamin B12 Folate TSH 8.470 H Urine WBC (Auto) Complement C3 Complement C4 02/01/19 02/01/19 02/01/19 09:45 11:32 13:50 WBC RBC Hgb Hct RDW Plt Count Seg Neuts % (Manual) Lymphocytes % (Manual) Seg Neutrophils # Man Lymphocytes # (Manual) PT INR APTT Thrombin Time POC ABG pH 7.289 L ABG pH POC ABG pCO2 POC ABG pO2 355 H ABG pO2 ABG HCO3 ABG Base Excess ABG Hemoglobin Oxyhemoglobin Sodium Potassium Chloride Carbon Dioxide BUN Creatinine Glucose POC Glucose Lactic Acid 4.10 H* Calcium Iron TIBC Direct Bilirubin AST Troponin T C-Reactive Protein Total Protein Albumin LDL Cholesterol Direct HDL Cholesterol Vitamin B12 Folate TSH Urine WBC (Auto) 16.0 H Complement C3 Complement C4 02/01/19 02/01/19 02/01/19 15:15 16:20 16:51 WBC RBC Hgb Hct RDW Plt Count Seg Neuts % (Manual) Lymphocytes % (Manual) Seg Neutrophils # Man Lymphocytes # (Manual) PT INR APTT Thrombin Time POC ABG pH ABG pH POC ABG pCO2 POC ABG pO2 ABG pO2 ABG HCO3 ABG Base Excess ABG Hemoglobin Oxyhemoglobin Sodium Potassium Chloride Carbon Dioxide BUN Creatinine Glucose POC Glucose 115 H Lactic Acid 4.50 H* Calcium Iron TIBC Direct Bilirubin AST Troponin T C-Reactive Protein Total Protein Albumin LDL Cholesterol Direct HDL Cholesterol Vitamin B12 Folate TSH Urine WBC (Auto) Complement C3 36 L Complement C4 02/01/19 02/01/19 02/01/19 16:51 17:03 17:04 WBC RBC Hgb Hct RDW Plt Count Seg Neuts % (Manual) Lymphocytes % (Manual) Seg Neutrophils # Man Lymphocytes # (Manual) PT INR APTT Thrombin Time POC ABG pH ABG pH POC ABG pCO2 POC ABG pO2 ABG pO2 ABG HCO3 ABG Base Excess ABG Hemoglobin Oxyhemoglobin Sodium Potassium Chloride Carbon Dioxide BUN Creatinine Glucose POC Glucose Lactic Acid 2.80 H* Calcium Iron TIBC Direct Bilirubin AST Troponin T C-Reactive Protein 32.30 H Total Protein Albumin LDL Cholesterol Direct HDL Cholesterol Vitamin B12 Folate TSH Urine WBC (Auto) Complement C3 Complement C4 12 L 02/01/19 02/02/19 02/02/19 19:28 05:16 05:53 WBC 14.3 H RBC Hgb Hct RDW 16.9 H Plt Count 43 L Seg Neuts % (Manual) 93.0 H Lymphocytes % (Manual) 2.0 L Seg Neutrophils # Man 13.3 H Lymphocytes # (Manual) 0.3 L PT INR APTT Thrombin Time POC ABG pH ABG pH POC ABG pCO2 POC ABG pO2 148 H ABG pO2 ABG HCO3 ABG Base Excess ABG Hemoglobin Oxyhemoglobin Sodium Potassium Chloride 107.1 H Carbon Dioxide 18 L BUN 52 H Creatinine 3.1 H Glucose 120 H POC Glucose Lactic Acid Calcium 7.4 L Iron TIBC Direct Bilirubin AST Troponin T C-Reactive Protein Total Protein Albumin LDL Cholesterol Direct HDL Cholesterol Vitamin B12 Folate TSH Urine WBC (Auto) Complement C3 Complement C4 02/02/19 02/03/19 02/03/19 05:53 03:30 03:30 WBC RBC 5.16 H Hgb 14.9 H Hct 46.2 H D RDW 17.0 H Plt Count 18 L* Seg Neuts % (Manual) Lymphocytes % (Manual) Seg Neutrophils # Man Lymphocytes # (Manual) PT INR APTT Thrombin Time POC ABG pH ABG pH POC ABG pCO2 POC ABG pO2 ABG pO2 ABG HCO3 ABG Base Excess ABG Hemoglobin Oxyhemoglobin Sodium Potassium 5.1 H Chloride Carbon Dioxide 21 L BUN 57 H 65 H Creatinine 3.3 H 2.7 H Glucose 147 H 117 H POC Glucose Lactic Acid Calcium 7.5 L 7.2 L Iron TIBC Direct Bilirubin AST 51 H Troponin T C-Reactive Protein Total Protein Albumin 1.6 L LDL Cholesterol Direct HDL Cholesterol Vitamin B12 Folate TSH Urine WBC (Auto) Complement C3 Complement C4 02/03/19 02/03/19 02/03/19 05:55 14:42 14:42 WBC RBC Hgb Hct RDW Plt Count Seg Neuts % (Manual) Lymphocytes % (Manual) Seg Neutrophils # Man Lymphocytes # (Manual) PT INR APTT Thrombin Time POC ABG pH ABG pH POC ABG pCO2 POC ABG pO2 117 H ABG pO2 ABG HCO3 ABG Base Excess ABG Hemoglobin Oxyhemoglobin Sodium Potassium Chloride Carbon Dioxide BUN Creatinine Glucose POC Glucose Lactic Acid Calcium Iron 11 L TIBC 88 L Direct Bilirubin AST Troponin T C-Reactive Protein Total Protein Albumin LDL Cholesterol Direct HDL Cholesterol Vitamin B12 1468 H Folate TSH Urine WBC (Auto) Complement C3 Complement C4 02/03/19 02/03/19 02/03/19 14:42 14:42 14:42 WBC RBC 3.17 L 3.22 L Hgb 9.4 L D 9.5 L Hct 28.3 L D 28.5 L RDW 16.9 H 16.4 H Plt Count 18 L* 18 L* Seg Neuts % (Manual) Lymphocytes % (Manual) Seg Neutrophils # Man Lymphocytes # (Manual) PT INR APTT Thrombin Time POC ABG pH ABG pH POC ABG pCO2 POC ABG pO2 ABG pO2 ABG HCO3 ABG Base Excess ABG Hemoglobin Oxyhemoglobin Sodium Potassium Chloride Carbon Dioxide BUN Creatinine Glucose POC Glucose Lactic Acid Calcium Iron TIBC Direct Bilirubin AST Troponin T C-Reactive Protein Total Protein Albumin LDL Cholesterol Direct HDL Cholesterol Vitamin B12 Folate 5.18 L TSH Urine WBC (Auto) Complement C3 Complement C4 02/03/19 02/04/19 02/04/19 14:42 03:35 05:02 WBC RBC Hgb Hct RDW 16.5 H Plt Count 20 L Seg Neuts % (Manual) 94.0 H Lymphocytes % (Manual) 2.0 L Seg Neutrophils # Man 9.2 H Lymphocytes # (Manual) 0.2 L PT 15.8 H INR 1.29 H APTT 38.2 H Thrombin Time POC ABG pH ABG pH 7.470 H POC ABG pCO2 POC ABG pO2 ABG pO2 ABG HCO3 28.4 H ABG Base Excess 4.5 H ABG Hemoglobin 10.1 L Oxyhemoglobin 94.7 L Sodium Potassium Chloride Carbon Dioxide BUN Creatinine Glucose POC Glucose Lactic Acid Calcium Iron TIBC Direct Bilirubin AST Troponin T C-Reactive Protein Total Protein Albumin LDL Cholesterol Direct HDL Cholesterol Vitamin B12 Folate TSH Urine WBC (Auto) Complement C3 Complement C4 02/04/19 02/05/19 02/05/19 05:02 03:50 13:02 WBC 11.7 H RBC 3.48 L Hgb 10.0 L Hct RDW 16.3 H Plt Count 50 L D Seg Neuts % (Manual) 95.0 H Lymphocytes % (Manual) 0 L Seg Neutrophils # Man 11.1 H Lymphocytes # (Manual) 0.0 L PT INR APTT Thrombin Time POC ABG pH ABG pH 7.485 H POC ABG pCO2 POC ABG pO2 ABG pO2 ABG HCO3 27.5 H ABG Base Excess 3.9 H ABG Hemoglobin 9.1 L Oxyhemoglobin 94.8 L Sodium Potassium Chloride Carbon Dioxide BUN 66 H Creatinine 1.7 H Glucose 127 H POC Glucose Lactic Acid Calcium 7.6 L Iron TIBC Direct Bilirubin AST Troponin T C-Reactive Protein Total Protein Albumin LDL Cholesterol Direct HDL Cholesterol Vitamin B12 Folate TSH Urine WBC (Auto) Complement C3 Complement C4 02/05/19 02/05/19 02/06/19 14:36 20:03 05:39 WBC RBC 3.24 L Hgb 9.4 L Hct 29.2 L RDW 16.3 H Plt Count 71 L Seg Neuts % (Manual) 95.0 H Lymphocytes % (Manual) 2.0 L Seg Neutrophils # Man 10.2 H Lymphocytes # (Manual) 0.2 L PT INR APTT Thrombin Time POC ABG pH ABG pH POC ABG pCO2 POC ABG pO2 ABG pO2 ABG HCO3 ABG Base Excess ABG Hemoglobin Oxyhemoglobin Sodium Potassium Chloride Carbon Dioxide BUN 67 H Creatinine 1.5 H Glucose POC Glucose 107 H Lactic Acid Calcium 7.7 L Iron TIBC Direct Bilirubin AST Troponin T C-Reactive Protein Total Protein Albumin LDL Cholesterol Direct HDL Cholesterol Vitamin B12 Folate TSH Urine WBC (Auto) Complement C3 Complement C4 02/06/19 02/06/19 02/06/19 07:35 18:34 Unknown WBC RBC Hgb Hct RDW Plt Count Seg Neuts % (Manual) Lymphocytes % (Manual) Seg Neutrophils # Man Lymphocytes # (Manual) PT 16.3 H INR 1.35 H APTT Thrombin Time POC ABG pH ABG pH POC ABG pCO2 POC ABG pO2 ABG pO2 ABG HCO3 ABG Base Excess ABG Hemoglobin 5.0 L Oxyhemoglobin 94.9 L Sodium Potassium Chloride Carbon Dioxide BUN Creatinine Glucose POC Glucose 121 H Lactic Acid Calcium Iron TIBC Direct Bilirubin AST Troponin T C-Reactive Protein Total Protein Albumin LDL Cholesterol Direct HDL Cholesterol Vitamin B12 Folate TSH Urine WBC (Auto) Complement C3 Complement C4 02/07/19 02/07/19 02/07/19 01:07 04:15 08:22 WBC RBC Hgb Hct RDW 16.0 H Plt Count 84 L Seg Neuts % (Manual) 97.0 H Lymphocytes % (Manual) 0 L Seg Neutrophils # Man 9.5 H Lymphocytes # (Manual) 0.0 L PT INR APTT Thrombin Time POC ABG pH ABG pH POC ABG pCO2 POC ABG pO2 ABG pO2 ABG HCO3 ABG Base Excess ABG Hemoglobin Oxyhemoglobin 94.8 L Sodium 146 H Potassium Chloride Carbon Dioxide BUN 85 H Creatinine 1.8 H Glucose 163 H POC Glucose Lactic Acid Calcium 8.3 L Iron TIBC Direct Bilirubin AST Troponin T C-Reactive Protein Total Protein Albumin LDL Cholesterol Direct HDL Cholesterol Vitamin B12 Folate TSH Urine WBC (Auto) Complement C3 Complement C4 02/07/19 02/08/19 02/09/19 10:58 04:40 03:17 WBC 14.9 H RBC 3.32 L Hgb 9.6 L Hct RDW 15.9 H Plt Count 113 L Seg Neuts % (Manual) 96.0 H Lymphocytes % (Manual) 1.0 L Seg Neutrophils # Man 14.3 H Lymphocytes # (Manual) 0.1 L PT INR APTT Thrombin Time POC ABG pH 7.477 H ABG pH 7.467 H POC ABG pCO2 34.8 L POC ABG pO2 118 H ABG pO2 ABG HCO3 ABG Base Excess ABG Hemoglobin 8.4 L Oxyhemoglobin Sodium Potassium Chloride Carbon Dioxide BUN Creatinine Glucose POC Glucose Lactic Acid Calcium Iron TIBC Direct Bilirubin AST Troponin T C-Reactive Protein Total Protein Albumin LDL Cholesterol Direct HDL Cholesterol Vitamin B12 Folate TSH Urine WBC (Auto) Complement C3 Complement C4 02/09/19 02/09/19 03:17 04:35 WBC RBC Hgb Hct RDW Plt Count Seg Neuts % (Manual) Lymphocytes % (Manual) Seg Neutrophils # Man Lymphocytes # (Manual) PT INR APTT Thrombin Time POC ABG pH ABG pH 7.478 H POC ABG pCO2 POC ABG pO2 ABG pO2 94.5 H ABG HCO3 ABG Base Excess ABG Hemoglobin 6.1 L Oxyhemoglobin Sodium 147 H Potassium Chloride 110.4 H Carbon Dioxide BUN 114 H Creatinine 2.2 H Glucose 270 H POC Glucose Lactic Acid Calcium 8.1 L Iron TIBC Direct Bilirubin AST Troponin T C-Reactive Protein Total Protein Albumin 1.6 L LDL Cholesterol Direct HDL Cholesterol Vitamin B12 Folate TSH Urine WBC (Auto) Complement C3 Complement C4
[2019-02-09] MEDS ORDERED: PHENYLEPHRINE/NS 1,000 MCG/10 ML SYRINGE (OR USE) IV ONE (11:11)
[2019-02-09] MEDS ORDERED: ESMOLOL 100 MG/10 ML INJ IV ONE (11:30)
--- NOTE | 2019-02-09 11:42 | Progress Note ---
Assessment and Plan Cultures: 02/01/2019 blood culture: Strep pneumoniae in 4/4 bottles 02/01/2019 urine culture: no growth 02/01/2019 tracheal aspirate: Strep species 02/02/2019 blood culture: no growth 02/05/2019 CSF culture: in process 02/01/2019 C3: 36 (low) 02/01/2019 C4: 12 (low) HIV: non reactive RPR: non reactive Hepatitis panel: non reactive Bartonella serology: negative A/P: 53-year-old female with hypothyroidism, hypertension, ?autoimmune disease. Admitted with: 1) Severe sepsis with Strep pneumoniae bacteremia, pneumonia and meningitis: TTE showed some ?pulmonic valve vegetation. TERRENCE was negative for vegetations. CSF shows WBC 1250, RBC 30, PMN 30%, Glucose 38, Protein 140. 2) Right neck severe lymphadenopathy: CT neck was without contrast, hence limited eval of vasculature. Neck US revealed extensive R neck lymphadenopathy, no abscess. HIV, RPR negative. Bartonella serologies negative. On 02/07/2019, patient's mother showed me paperwork from patient's PCP, patient was seen on 01/30/2019 at PCP office for R neck lump, was given medrol dose kevin and ultrasound was ordered. Once creatinine improves, may need CT chest, abdomen pelvis with IV contrast to evaluate for other lymphadenopathy. 3) Bilateral pneumonia: sputum culture also growing Strep, likely Strep pneumoniae. 4) Acute renal failure: Nephrology following. Creatinine worse today. 5) ?Autoimmune disease: need more history. Unclear if she is on any kind of immunosuppression. C3, C4 came back low. F/u [facility]. ANCA negative. Suspect some underlying immunodeficiency. 6) Thrombocytopenia: improved. Hematology following. Sepsis v/s autoimmune in etiology. 7) Acute encephalopathy: secondary to meningitis. 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 She is out of the window for steroids as adjunctive therapy for Pneumococcal meningitis, however, mental status remains poor and with concern for underlying autoimmune disease and ?renal dysfunction, it would be reasonable to give her steroids. D/W Dr. Fernandez f/u [facility] once creatinine improves, may need CT chest, abdomen pelvis with IV contrast to evaluate for other lymphadenopathy Luis Lewis MD, FACP [facility] M: [phone] O: [phone] F: [phone] Subjective Date of service: 02/09/19 Principal diagnosis: septic shock Interval history: No fever. Got sedation for TERRENCE. Discussed with RN, opening eyes at times but doesn't follow any commands. Objective - Exam Narrative Exam: Physical Exam: Constitutional: sedated, doesn't follow commands, intubated Head, Ears, Nose: Normocephalic, atraumatic. External ears, nose normal Eyes: Conjunctivae/corneas clear. No icterus. No ptosis. Neck: R cervical lymphadenopathy, slightly improved Oral: intubated Cardiovascular: S1, S2 normal, irregular Respiratory: AE clear bilaterally, no wheeze GI: Soft, non-tender; bowel sounds normal. No peritoneal signs Musculoskeletal: No pedal edema, no cyanosis. Skin: No rash or abscess Hem/Lymphatic: No palpable cervical or supraclavicular nodes. No lymphangitis Psych: no agitation Neurological: sedated, doesn't follow commands, on the vent - Constitutional Vitals: Vital Signs Temp Pulse Resp BP Pulse Ox 97.6 F 85 24 127/70 100 02/09/19 08:00 02/09/19 11:09 02/09/19 08:31 02/09/19 11:09 02/09/19 11:09 Temperature -Last 24 Hours Temperature 97.6 F Temperature 98.8 F Temperature 99.5 F Temperature 99.1 F Temperature 99.1 F Temperature 97.9 F - Labs CBC & Chem 7: 02/09/19 03:17 02/09/19 03:17 Labs: Abnormal lab results 02/09/19 02/09/19 02/09/19 Range/Units 03:17 03:17 04:35 WBC 14.9 H (4.5-11.0) K/mm3 RBC 3.32 L (3.65-5.03) M/mm3 Hgb 9.6 L (10.1-14.3) gm/dl RDW 15.9 H (13.2-15.2) % Plt Count 113 L (140-440) K/mm3 Seg Neuts % (Manual) 96.0 H (40.0-70.0) % Lymphocytes % (Manual) 1.0 L (13.4-35.0) % Seg Neutrophils # Man 14.3 H (1.8-7.7) K/mm3 Lymphocytes # (Manual) 0.1 L (1.2-5.4) K/mm3 ABG pH 7.478 H (7.350-7.450) pH Units ABG pO2 94.5 H (80.0-90.0) mm Hg ABG Hemoglobin 6.1 L (12.0-16.0) gm/dl Sodium 147 H (137-145) mmol/L Chloride 110.4 H (98-107) mmol/L BUN 114 H (7-17) mg/dL Creatinine 2.2 H (0.7-1.2) mg/dL Glucose 270 H (65-100) mg/dL Calcium 8.1 L (8.4-10.2) mg/dL Albumin 1.6 L (3.9-5) g/dL
[2019-02-09 12:20] LABS: ANA Screen, IFA Positive (Negative)
[2019-02-09] MEDS: dexAMETHasone 4 MG/ML VIAL IV SCH ×2 (13:43→19:44)
--- NOTE | 2019-02-09 16:51 | Post Anesthesia Evaluation ---
- Post Anesthesia Evaluation Patient Participated: Yes Airway Patent: Yes Stable Respiratory Function: Yes Nausea/Vomiting: No Temp > 96.8F: Yes Pain Manageable: Yes Adequeate Hydration: Yes Anesthesia Complications: No Block Receding Appropriately: Not Applicable
--- NOTE | 2019-02-09 17:58 | Progress Note ---
Assessment and Plan This is a 53 YO F with embolic strokes in the setting of strep sepsis/meningitis Recommend: Discussed MRI Brain results with pt's mother at bedside, will also discuss with pt's cousin Julianne with mom's permission [phone] Would do just aspirin for now/depending on TERRENCE results. If vegetation found on TERRENCE antibiotics as per ID, if nothing consider anticoagulation once pt is stable( 5-7 days) Watch closely for hemorrhagic conversion Lipids, A1C, carotids if not already done Pt will likely need trach and PEG Therapy services if pt improves Unfortunately this patient 's prognosis is poor and this was discussed with the family. Subjective Date of service: 02/09/19 Principal diagnosis: septic shock Interval history: Pt opens her eyes but not tracking. No major change. remains off sedation. Objective - Vital Sign Vital Signs - 12hr 02/09/19 02/09/19 02/09/19 06:00 06:30 07:00 Temperature Pulse Rate 107 H 100 H 86 Pulse Rate [ Anterior Bilateral Throughout] Pulse Rate [ From Monitor] Respiratory 20 20 18 Rate Respiratory Rate [Anterior Bilateral Throughout] Blood Pressure 137/69 143/66 132/72 O2 Sat by Pulse 100 100 99 Oximetry 02/09/19 02/09/19 02/09/19 07:30 08:00 08:01 Temperature 97.6 F Pulse Rate 106 H 98 H Pulse Rate [ Anterior Bilateral Throughout] Pulse Rate [ 110 H From Monitor] Respiratory 24 24 20 Rate Respiratory Rate [Anterior Bilateral Throughout] Blood Pressure 148/76 143/72 O2 Sat by Pulse 100 100 100 Oximetry 02/09/19 02/09/19 02/09/19 08:26 08:31 08:35 Temperature Pulse Rate 104 H 108 H 120 H Pulse Rate [ 107 H Anterior Bilateral Throughout] Pulse Rate [ From Monitor] Respiratory 24 22 Rate Respiratory 23 Rate [Anterior Bilateral Throughout] Blood Pressure 143/63 143/63 143/63 O2 Sat by Pulse 98 98 98 Oximetry 02/09/19 02/09/19 02/09/19 08:41 08:45 08:51 Temperature Pulse Rate 110 H 110 H 109 H Pulse Rate [ Anterior Bilateral Throughout] Pulse Rate [ From Monitor] Respiratory 22 20 23 Rate Respiratory Rate [Anterior Bilateral Throughout] Blood Pressure 143/63 143/63 143/63 O2 Sat by Pulse 98 98 98 Oximetry 02/09/19 02/09/19 02/09/19 08:55 09:00 09:05 Temperature Pulse Rate 108 H 117 H 111 H Pulse Rate [ Anterior Bilateral Throughout] Pulse Rate [ From Monitor] Respiratory 14 14 14 Rate Respiratory Rate [Anterior Bilateral Throughout] Blood Pressure 143/63 137/64 137/64 O2 Sat by Pulse 100 100 100 Oximetry 02/09/19 02/09/19 02/09/19 09:11 09:15 09:21 Temperature Pulse Rate 119 H 126 H 104 H Pulse Rate [ Anterior Bilateral Throughout] Pulse Rate [ From Monitor] Respiratory 14 14 14 Rate Respiratory Rate [Anterior Bilateral Throughout] Blood Pressure 137/64 137/64 137/64 O2 Sat by Pulse 100 100 100 Oximetry 02/09/19 02/09/19 02/09/19 09:25 09:30 09:35 Temperature Pulse Rate 110 H 125 H 100 H Pulse Rate [ Anterior Bilateral Throughout] Pulse Rate [ From Monitor] Respiratory 14 14 14 Rate Respiratory Rate [Anterior Bilateral Throughout] Blood Pressure 137/64 132/64 132/64 O2 Sat by Pulse 100 100 100 Oximetry 02/09/19 02/09/19 02/09/19 09:41 09:45 09:51 Temperature Pulse Rate 123 H 112 H 104 H Pulse Rate [ Anterior Bilateral Throughout] Pulse Rate [ From Monitor] Respiratory 15 23 23 Rate Respiratory Rate [Anterior Bilateral Throughout] Blood Pressure 137/64 137/64 137/64 O2 Sat by Pulse 100 98 98 Oximetry 02/09/19 02/09/19 02/09/19 09:55 10:00 10:05 Temperature Pulse Rate 114 H 107 H 110 H Pulse Rate [ Anterior Bilateral Throughout] Pulse Rate [ From Monitor] Respiratory 22 21 23 Rate Respiratory Rate [Anterior Bilateral Throughout] Blood Pressure 137/64 139/68 139/68 O2 Sat by Pulse 98 98 98 Oximetry 02/09/19 02/09/19 02/09/19 10:11 10:15 10:21 Temperature Pulse Rate 111 H 108 H 110 H Pulse Rate [ Anterior Bilateral Throughout] Pulse Rate [ From Monitor] Respiratory 22 20 21 Rate Respiratory Rate [Anterior Bilateral Throughout] Blood Pressure 132/64 132/64 132/64 O2 Sat by Pulse 98 98 97 Oximetry 02/09/19 02/09/19 02/09/19 10:25 10:30 10:35 Temperature Pulse Rate 102 H 93 H 99 H Pulse Rate [ Anterior Bilateral Throughout] Pulse Rate [ From Monitor] Respiratory 17 19 21 Rate Respiratory Rate [Anterior Bilateral Throughout] Blood Pressure 132/64 132/77 132/77 O2 Sat by Pulse 96 98 98 Oximetry 02/09/19 02/09/19 02/09/19 10:41 10:45 10:51 Temperature Pulse Rate 99 H 121 H 99 H Pulse Rate [ Anterior Bilateral Throughout] Pulse Rate [ From Monitor] Respiratory 18 18 17 Rate Respiratory Rate [Anterior Bilateral Throughout] Blood Pressure 135/72 136/64 126/66 O2 Sat by Pulse 100 100 100 Oximetry 02/09/19 02/09/19 02/09/19 10:55 11:00 11:05 Temperature Pulse Rate 88 80 78 Pulse Rate [ Anterior Bilateral Throughout] Pulse Rate [ From Monitor] Respiratory 18 19 20 Rate Respiratory Rate [Anterior Bilateral Throughout] Blood Pressure 120/76 121/67 122/69 O2 Sat by Pulse 100 100 100 Oximetry 02/09/19 02/09/19 02/09/19 11:09 11:11 11:15 Temperature Pulse Rate 85 90 77 Pulse Rate [ Anterior Bilateral Throughout] Pulse Rate [ From Monitor] Respiratory 21 21 Rate Respiratory Rate [Anterior Bilateral Throughout] Blood Pressure 127/70 127/70 118/69 O2 Sat by Pulse 100 100 99 Oximetry 02/09/19 02/09/19 02/09/19 11:20 11:25 11:30 Temperature Pulse Rate 80 79 82 Pulse Rate [ Anterior Bilateral Throughout] Pulse Rate [ From Monitor] Respiratory 19 18 18 Rate Respiratory Rate [Anterior Bilateral Throughout] Blood Pressure 124/69 120/67 121/67 O2 Sat by Pulse 99 98 98 Oximetry 02/09/19 02/09/19 02/09/19 11:35 11:41 11:45 Temperature Pulse Rate 86 84 83 Pulse Rate [ Anterior Bilateral Throughout] Pulse Rate [ From Monitor] Respiratory 19 18 18 Rate Respiratory Rate [Anterior Bilateral Throughout] Blood Pressure 121/67 121/67 129/72 O2 Sat by Pulse 98 98 98 Oximetry 02/09/19 02/09/19 02/09/19 11:51 11:55 12:00 Temperature 97.5 F L Pulse Rate 78 77 79 Pulse Rate [ Anterior Bilateral Throughout] Pulse Rate [ 84 From Monitor] Respiratory 18 17 18 Rate Respiratory Rate [Anterior Bilateral Throughout] Blood Pressure 129/72 129/72 126/66 O2 Sat by Pulse 98 98 98 Oximetry 08/02/09/19 02/09/19 12:05 12:11 12:15 Temperature Pulse Rate 79 83 90 Pulse Rate [ Anterior Bilateral Throughout] Pulse Rate [ From Monitor] Respiratory 18 19 20 Rate Respiratory Rate [Anterior Bilateral Throughout] Blood Pressure 126/66 126/66 134/79 O2 Sat by Pulse 98 98 98 Oximetry 02/09/19 02/09/19 02/09/19 12:21 12:25 12:30 Temperature Pulse Rate 94 H 92 H 96 H Pulse Rate [ Anterior Bilateral Throughout] Pulse Rate [ From Monitor] Respiratory 20 21 21 Rate Respiratory Rate [Anterior Bilateral Throughout] Blood Pressure 134/79 134/79 139/73 O2 Sat by Pulse 98 98 98 Oximetry 02/09/19 02/09/19 02/09/19 12:35 12:41 12:45 Temperature Pulse Rate 93 H 96 H 92 H Pulse Rate [ Anterior Bilateral Throughout] Pulse Rate [ From Monitor] Respiratory 20 21 20 Rate Respiratory Rate [Anterior Bilateral Throughout] Blood Pressure 139/73 139/73 137/79 O2 Sat by Pulse 98 98 99 Oximetry 02/09/19 02/09/19 02/09/19 12:51 12:55 13:00 Temperature Pulse Rate 94 H 95 H 95 H Pulse Rate [ Anterior Bilateral Throughout] Pulse Rate [ From Monitor] Respiratory 19 21 21 Rate Respiratory Rate [Anterior Bilateral Throughout] Blood Pressure 137/79 137/79 138/78 O2 Sat by Pulse 99 98 99 Oximetry 02/09/19 02/09/19 13:33 15:22 Temperature Pulse Rate 113 H Pulse Rate [ 98 H Anterior Bilateral Throughout] Pulse Rate [ From Monitor] Respiratory Rate Respiratory 20 Rate [Anterior Bilateral Throughout] Blood Pressure 142/71 O2 Sat by Pulse 98 Oximetry - General Apperance Constitutional: comfortable - Respiratory Respiratory: lungs clear - Cardiovascular Cardiovascular: regular rate - Gastrointestinal Gastrointestinal: normoactive bowel sounds - Neurologic Cranial nerve examination: PERRL, other (right eye deviation) Detailed motor examination: other (no voluntary movement) Reflexes: 0: ankle, bicep, knee, tricep - Laboratory Findings CBC and BMP: 02/09/19 03:17 02/09/19 03:17 Abnormal Lab Findings: Abnormal Labs 02/01/19 02/01/19 02/01/19 07:16 07:16 07:16 WBC 17.7 H RBC Hgb Hct RDW 16.9 H Plt Count 62 L Seg Neuts % (Manual) 95.0 H Lymphocytes % (Manual) 0 L Seg Neutrophils # Man 16.8 H Lymphocytes # (Manual) 0.0 L PT 15.0 H INR 1.21 H APTT Thrombin Time 20.0 H POC ABG pH ABG pH POC ABG pCO2 POC ABG pO2 ABG pO2 ABG HCO3 ABG Base Excess ABG Hemoglobin Oxyhemoglobin Sodium 135 L Potassium Chloride 97.7 L Carbon Dioxide 19 L BUN 51 H Creatinine 4.5 H Glucose 112 H POC Glucose Lactic Acid Calcium Iron TIBC Direct Bilirubin AST Troponin T 0.181 H* C-Reactive Protein Total Protein Albumin LDL Cholesterol Direct 34 L HDL Cholesterol 20 L Vitamin B12 Folate TSH Urine WBC (Auto) CHESTER Screen CHESTER Titer Complement C3 Complement C4 02/01/19 02/01/19 02/01/19 07:29 07:29 07:43 WBC RBC Hgb Hct RDW Plt Count Seg Neuts % (Manual) Lymphocytes % (Manual) Seg Neutrophils # Man Lymphocytes # (Manual) PT INR APTT Thrombin Time POC ABG pH ABG pH POC ABG pCO2 POC ABG pO2 ABG pO2 ABG HCO3 ABG Base Excess ABG Hemoglobin Oxyhemoglobin Sodium Potassium Chloride Carbon Dioxide BUN Creatinine Glucose POC Glucose Lactic Acid 4.80 H* Calcium Iron TIBC Direct Bilirubin 0.7 H AST 42 H Troponin T C-Reactive Protein Total Protein 8.9 H Albumin 2.3 L LDL Cholesterol Direct HDL Cholesterol Vitamin B12 Folate TSH 8.470 H Urine WBC (Auto) CHESTER Screen CHESTER Titer Complement C3 Complement C4 02/01/19 02/01/19 02/01/19 09:45 11:32 13:50 WBC RBC Hgb Hct RDW Plt Count Seg Neuts % (Manual) Lymphocytes % (Manual) Seg Neutrophils # Man Lymphocytes # (Manual) PT INR APTT Thrombin Time POC ABG pH 7.289 L ABG pH POC ABG pCO2 POC ABG pO2 355 H ABG pO2 ABG HCO3 ABG Base Excess ABG Hemoglobin Oxyhemoglobin Sodium Potassium Chloride Carbon Dioxide BUN Creatinine Glucose POC Glucose Lactic Acid 4.10 H* Calcium Iron TIBC Direct Bilirubin AST Troponin T C-Reactive Protein Total Protein Albumin LDL Cholesterol Direct HDL Cholesterol Vitamin B12 Folate TSH Urine WBC (Auto) 16.0 H CHESTER Screen CHE[place] Titer Complement C3 Complement C4 08/15/19 08/15/19 08/15/19 15:15 16:20 16:51 WBC RBC Hgb Hct RDW Plt Count Seg Neuts % (Manual) Lymphocytes % (Manual) Seg Neutrophils # Man Lymphocytes # (Manual) PT INR APTT Thrombin Time POC ABG pH ABG pH POC ABG pCO2 POC ABG pO2 ABG pO2 ABG HCO3 ABG Base Excess ABG Hemoglobin Oxyhemoglobin Sodium Potassium Chloride Carbon Dioxide BUN Creatinine Glucose POC Glucose 115 H Lactic Acid 4.50 H* Calcium Iron TIBC Direct Bilirubin AST Troponin T C-Reactive Protein Total Protein Albumin LDL Cholesterol Direct HDL Cholesterol Vitamin B12 Folate TSH Urine WBC (Auto) CHESTER Screen [place] Titer Complement C3 36 L Complement C4 02/01/19 02/01/19 02/01/19 16:51 17:03 17:04 WBC RBC Hgb Hct RDW Plt Count Seg Neuts % (Manual) Lymphocytes % (Manual) Seg Neutrophils # Man Lymphocytes # (Manual) PT INR APTT Thrombin Time POC ABG pH ABG pH POC ABG pCO2 POC ABG pO2 ABG pO2 ABG HCO3 ABG Base Excess ABG Hemoglobin Oxyhemoglobin Sodium Potassium Chloride Carbon Dioxide BUN Creatinine Glucose POC Glucose Lactic Acid 2.80 H* Calcium Iron TIBC Direct Bilirubin AST Troponin T C-Reactive Protein 32.30 H Total Protein Albumin LDL Cholesterol Direct HDL Cholesterol Vitamin B12 Folate TSH Urine WBC (Auto) CHE[place] Screen [place] Titer Complement C3 Complement C4 12 L 02/01/19 02/01/19 02/02/19 17:04 19:28 05:16 WBC RBC Hgb Hct RDW Plt Count Seg Neuts % (Manual) Lymphocytes % (Manual) Seg Neutrophils # Man Lymphocytes # (Manual) PT INR APTT Thrombin Time POC ABG pH ABG pH POC ABG pCO2 POC ABG pO2 148 H ABG pO2 ABG HCO3 ABG Base Excess ABG Hemoglobin Oxyhemoglobin Sodium Potassium Chloride 107.1 H Carbon Dioxide 18 L BUN 52 H Creatinine 3.1 H Glucose 120 H POC Glucose Lactic Acid Calcium 7.4 L Iron TIBC Direct Bilirubin AST Troponin T C-Reactive Protein Total Protein Albumin LDL Cholesterol Direct HDL Cholesterol Vitamin B12 Folate TSH Urine WBC (Auto) CHESTER Screen Positive H CHESTER Titer 1:320 H Complement C3 Complement C4 02/02/19 02/02/19 02/03/19 05:53 05:53 03:30 WBC 14.3 H RBC 5.16 H Hgb 14.9 H Hct 46.2 H D RDW 16.9 H 17.0 H Plt Count 43 L 18 L* Seg Neuts % (Manual) 93.0 H Lymphocytes % (Manual) 2.0 L Seg Neutrophils # Man 13.3 H Lymphocytes # (Manual) 0.3 L PT INR APTT Thrombin Time POC ABG pH ABG pH POC ABG pCO2 POC ABG pO2 ABG pO2 ABG HCO3 ABG Base Excess ABG Hemoglobin Oxyhemoglobin Sodium Potassium 5.1 H Chloride Carbon Dioxide 21 L BUN 57 H Creatinine 3.3 H Glucose 147 H POC Glucose Lactic Acid Calcium 7.5 L Iron TIBC Direct Bilirubin AST 51 H Troponin T C-Reactive Protein Total Protein Albumin 1.6 L LDL Cholesterol Direct HDL Cholesterol Vitamin B12 Folate TSH Urine WBC (Auto) CHE[place] Screen [place] Titer Complement C3 Complement C4 02/03/19 02/03/19 02/03/19 03:30 05:55 14:42 WBC RBC Hgb Hct RDW Plt Count Seg Neuts % (Manual) Lymphocytes % (Manual) Seg Neutrophils # Man Lymphocytes # (Manual) PT INR APTT Thrombin Time POC ABG pH ABG pH POC ABG pCO2 POC ABG pO2 117 H ABG pO2 ABG HCO3 ABG Base Excess ABG Hemoglobin Oxyhemoglobin Sodium Potassium Chloride Carbon Dioxide BUN 65 H Creatinine 2.7 H Glucose 117 H POC Glucose Lactic Acid Calcium 7.2 L Iron TIBC Direct Bilirubin AST Troponin T C-Reactive Protein Total Protein Albumin LDL Cholesterol Direct HDL Cholesterol Vitamin B12 1468 H Folate TSH Urine WBC (Auto) CHE[place] Screen [place] Titer Complement C3 Complement C4 02/03/19 02/03/19 02/03/19 14:42 14:42 14:42 WBC RBC 3.17 L Hgb 9.4 L D Hct 28.3 L D RDW 16.9 H Plt Count 18 L* Seg Neuts % (Manual) Lymphocytes % (Manual) Seg Neutrophils # Man Lymphocytes # (Manual) PT INR APTT Thrombin Time POC ABG pH ABG pH POC ABG pCO2 POC ABG pO2 ABG pO2 ABG HCO3 ABG Base Excess ABG Hemoglobin Oxyhemoglobin Sodium Potassium Chloride Carbon Dioxide BUN Creatinine Glucose POC Glucose Lactic Acid Calcium Iron 11 L TIBC 88 L Direct Bilirubin AST Troponin T C-Reactive Protein Total Protein Albumin LDL Cholesterol Direct HDL Cholesterol Vitamin B12 Folate 5.18 L TSH Urine WBC (Auto) CHESTER Screen CHE[place] Titer Complement C3 Complement C4 02/03/19 02/03/19 02/04/19 14:42 14:42 03:35 WBC RBC 3.22 L Hgb 9.5 L Hct 28.5 L RDW 16.4 H Plt Count 18 L* Seg Neuts % (Manual) Lymphocytes % (Manual) Seg Neutrophils # Man Lymphocytes # (Manual) PT 15.8 H INR 1.29 H APTT 38.2 H Thrombin Time POC ABG pH ABG pH 7.470 H POC ABG pCO2 POC ABG pO2 ABG pO2 ABG HCO3 28.4 H ABG Base Excess 4.5 H ABG Hemoglobin 10.1 L Oxyhemoglobin 94.7 L Sodium Potassium Chloride Carbon Dioxide BUN Creatinine Glucose POC Glucose Lactic Acid Calcium Iron TIBC Direct Bilirubin AST Troponin T C-Reactive Protein Total Protein Albumin LDL Cholesterol Direct HDL Cholesterol Vitamin B12 Folate TSH Urine WBC (Auto) CHE[place] Screen CHE[place] Titer Complement C3 Complement C4 02/04/19 02/04/19 02/05/19 05:02 05:02 03:50 WBC RBC Hgb Hct RDW 16.5 H Plt Count 20 L Seg Neuts % (Manual) 94.0 H Lymphocytes % (Manual) 2.0 L Seg Neutrophils # Man 9.2 H Lymphocytes # (Manual) 0.2 L PT INR APTT Thrombin Time POC ABG pH ABG pH 7.485 H POC ABG pCO2 POC ABG pO2 ABG pO2 ABG HCO3 27.5 H ABG Base Excess 3.9 H ABG Hemoglobin 9.1 L Oxyhemoglobin 94.8 L Sodium Potassium Chloride Carbon Dioxide BUN 66 H Creatinine 1.7 H Glucose 127 H POC Glucose Lactic Acid Calcium 7.6 L Iron TIBC Direct Bilirubin AST Troponin T C-Reactive Protein Total Protein Albumin LDL Cholesterol Direct HDL Cholesterol Vitamin B12 Folate TSH Urine WBC (Auto) [place] Screen CEH[place] Titer Complement C3 Complement C4 02/05/19 02/05/19 02/05/19 13:02 14:36 20:03 WBC 11.7 H RBC 3.48 L 3.24 L Hgb 10.0 L 9.4 L Hct 29.2 L RDW 16.3 H 16.3 H Plt Count 50 L D 71 L Seg Neuts % (Manual) 95.0 H 95.0 H Lymphocytes % (Manual) 0 L 2.0 L Seg Neutrophils # Man 11.1 H 10.2 H Lymphocytes # (Manual) 0.0 L 0.2 L PT INR APTT Thrombin Time POC ABG pH ABG pH POC ABG pCO2 POC ABG pO2 ABG pO2 ABG HCO3 ABG Base Excess ABG Hemoglobin Oxyhemoglobin Sodium Potassium Chloride Carbon Dioxide BUN 67 H Creatinine 1.5 H Glucose POC Glucose Lactic Acid Calcium 7.7 L Iron TIBC Direct Bilirubin AST Troponin T C-Reactive Protein Total Protein Albumin LDL Cholesterol Direct HDL Cholesterol Vitamin B12 Folate TSH Urine WBC (Auto) CHE[place] Screen [place] Titer Complement C3 Complement C4 02/06/19 02/06/19 02/06/19 05:39 07:35 18:34 WBC RBC Hgb Hct RDW Plt Count Seg Neuts % (Manual) Lymphocytes % (Manual) Seg Neutrophils # Man Lymphocytes # (Manual) PT 16.3 H INR 1.35 H APTT Thrombin Time POC ABG pH ABG pH POC ABG pCO2 POC ABG pO2 ABG pO2 ABG HCO3 ABG Base Excess ABG Hemoglobin Oxyhemoglobin Sodium Potassium Chloride Carbon Dioxide BUN Creatinine Glucose POC Glucose 107 H 121 H Lactic Acid Calcium Iron TIBC Direct Bilirubin AST Troponin T C-Reactive Protein Total Protein Albumin LDL Cholesterol Direct HDL Cholesterol Vitamin B12 Folate TSH Urine WBC (Auto) [place] Screen CHE[place] Titer Complement C3 Complement C4 02/06/19 02/07/19 02/07/19 Unknown 01:07 04:15 WBC RBC Hgb Hct RDW Plt Count Seg Neuts % (Manual) Lymphocytes % (Manual) Seg Neutrophils # Man Lymphocytes # (Manual) PT INR APTT Thrombin Time POC ABG pH ABG pH POC ABG pCO2 POC ABG pO2 ABG pO2 ABG HCO3 ABG Base Excess ABG Hemoglobin 5.0 L Oxyhemoglobin 94.9 L 94.8 L Sodium 146 H Potassium Chloride Carbon Dioxide BUN 85 H Creatinine 1.8 H Glucose 163 H POC Glucose Lactic Acid Calcium 8.3 L Iron TIBC Direct Bilirubin AST Troponin T C-Reactive Protein Total Protein Albumin LDL Cholesterol Direct HDL Cholesterol Vitamin B12 Folate TSH Urine WBC (Auto) [place] Screen [place] Titer Complement C3 Complement C4 02/07/19 02/07/19 02/08/19 08:22 10:58 04:40 WBC RBC Hgb Hct RDW 16.0 H Plt Count 84 L Seg Neuts % (Manual) 97.0 H Lymphocytes % (Manual) 0 L Seg Neutrophils # Man 9.5 H Lymphocytes # (Manual) 0.0 L PT INR APTT Thrombin Time POC ABG pH 7.477 H ABG pH 7.467 H POC ABG pCO2 34.8 L POC ABG pO2 118 H ABG pO2 ABG HCO3 ABG Base Excess ABG Hemoglobin 8.4 L Oxyhemoglobin Sodium Potassium Chloride Carbon Dioxide BUN Creatinine Glucose POC Glucose Lactic Acid Calcium Iron TIBC Direct Bilirubin AST Troponin T C-Reactive Protein Total Protein Albumin LDL Cholesterol Direct HDL Cholesterol Vitamin B12 Folate TSH Urine WBC (Auto) [place] Screen [place] Titer Complement C3 Complement C4 02/09/19 02/09/19 02/09/19 03:17 03:17 04:35 WBC 14.9 H RBC 3.32 L Hgb 9.6 L Hct RDW 15.9 H Plt Count 113 L Seg Neuts % (Manual) 96.0 H Lymphocytes % (Manual) 1.0 L Seg Neutrophils # Man 14.3 H Lymphocytes # (Manual) 0.1 L PT INR APTT Thrombin Time POC ABG pH ABG pH 7.478 H POC ABG pCO2 POC ABG pO2 ABG pO2 94.5 H ABG HCO3 ABG Base Excess ABG Hemoglobin 6.1 L Oxyhemoglobin Sodium 147 H Potassium Chloride 110.4 H Carbon Dioxide BUN 114 H Creatinine 2.2 H Glucose 270 H POC Glucose Lactic Acid Calcium 8.1 L Iron TIBC Direct Bilirubin AST Troponin T C-Reactive Protein Total Protein Albumin 1.6 L LDL Cholesterol Direct HDL Cholesterol Vitamin B12 Folate TSH Urine WBC (Auto) [place] Screen CHE[place] Titer Complement C3 Complement C4 - Diagnostic Findings Additional findings: MRI Brain- multiple embolic strokes, bilateral
[2019-02-09 19:42] LABS: Creatinine,Urine 92.9 mg/dL (0.1-20.0); Protein/Creatinine Ratio,Urine 1.25
[2019-02-10] MEDS: dexAMETHasone 4 MG/ML VIAL IV SCH ×4 (00:20→17:13)
[2019-02-10] MEDS: IPRATROPIUM/ALBUTEROL SULFATE 3 ML AMPUL.NEB IH SCH ×4 (02:52→20:21)
[2019-02-10 05:53] LABS: ABG Base Excess 1.6 mmol/L (-2.0-3.0); ABG HCO3 25.1 mmol/L (20.0-26.0); ABG Methemoglobin 0.7 % (0.0-1.5); ABG Oxygen Saturation 96.9 % (95.0-99.0); ABG PCO2 34.7 mm Hg; ABG PH 7.478 pH Units (7.350-7.450); ABG PO2 80.4 mm Hg (80.0-90.0)
[2019-02-10] MEDS: dilTIAZem/D5W 100 MG/100 ML BAG IV SCH ×2 (08:31→20:36)
[2019-02-10] MEDS: ACETAMINOPHEN 325 MG TAB PO PRN ×3 (09:54→21:14)
[2019-02-10] MEDS: MULTIVITAMINS 5 ML ORAL LIQUID PO SCH (09:54)
[2019-02-10] MEDS: FAMOTIDINE 20 MG TAB PO SCH (09:55)
[2019-02-10] MEDS: FOLIC ACID 1 MG TAB PO SCH (09:55)
[2019-02-10] MEDS: cefTRIAXone/NS 2 GM/100 ML 2 GM/100 ML BAG IV SCH ×2 (09:55→21:12)
[2019-02-10] MEDS: LEVOTHYROXINE 125 MCG TAB PO SCH (09:55)
--- NOTE | 2019-02-10 10:43 | Progress Note ---
Assessment and Plan Cultures: 02/01/2019 blood culture: Strep pneumoniae in 4/4 bottles 02/01/2019 urine culture: no growth 02/01/2019 tracheal aspirate: Strep species 02/02/2019 blood culture: no growth 02/05/2019 CSF culture: in process 02/01/2019 C3: 36 (low) 02/01/2019 C4: 12 (low) CHE[place] positive 1:320 HIV: non reactive RPR: non reactive Hepatitis panel: non reactive Bartonella serology: negative A/P: 53-year-old female with hypothyroidism, hypertension, ?autoimmune disease. Admitted with: 1) Severe sepsis with Strep pneumoniae bacteremia, pneumonia and meningitis: TTE showed some ?pulmonic valve vegetation. TERRENCE was negative for vegetations per cardiology. CSF shows WBC 1250, RBC 30, PMN 30%, Glucose 38, Protein 140. 2) Right neck severe lymphadenopathy: CT neck was without contrast, hence limited eval of vasculature. Neck US revealed extensive R neck lymphadenopathy, no abscess. HIV, RPR negative. Bartonella serologies negative. On 02/07/2019, patient's mother showed me paperwork from patient's PCP, patient was seen on 01/30/2019 at PCP office for R neck lump, was given medrol dose kevin and ultrasound was ordered. Once creatinine improves, may need CT chest, abdomen pelvis with IV contrast to evaluate for other lymphadenopathy. 3) Bilateral pneumonia: sputum culture also growing Strep, likely Strep pneumoniae. 4) Acute renal failure: Nephrology following. Creatinine worse today. 5) ?Autoimmune disease: likely lupus. C3, C4 came back low. CHESTER positive 1:320. ANCA negative. 6) Thrombocytopenia: improved. Hematology following. Sepsis v/s autoimmune in etiology. 7) Acute encephalopathy: secondary to meningitis. MRI brain showed acute ischemic changes in the posterior distribution of the R MCA, right frontal and parietal deep white matter and left frontal deep white matter, additional foci of ischemic change in b/l cerebellar hemispheres. 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 CHE[place] positive 1:320 suggestive of lupus OK to give steroids from ID standpoint. She is out of the window for steroids as adjunctive therapy for Pneumococcal meningitis, however, mental status remains poor and with underlying autoimmune disease and ?renal dysfunction, it would be reasonable to give her steroids. Was started on Dexamethasone 02/09/2019 Overall guarded prognosis Anti ds-dna Ab ordered Discussed with family member (cousin who is an RN from [place]) at bedside. Luis Lewis MD, FACP [facility] M: [phone] O: [phone] F: [phone] Subjective Date of service: 02/10/19 Principal diagnosis: septic shock Interval history: Fever +. Remains intubated, on the vent. Mental status unchanged, opens eyes at times. Cousin (RN from [place]) at bedside Objective - Exam Narrative Exam: Physical Exam: Constitutional: doesn't follow commands, intubated Head, Ears, Nose: Normocephalic, atraumatic. External ears, nose normal Eyes: Conjunctivae/corneas clear. No icterus. No ptosis. Neck: R cervical lymphadenopathy, slightly improved Oral: intubated Cardiovascular: S1, S2 normal, irregular Respiratory: AE clear bilaterally, no wheeze GI: Soft, non-tender; bowel sounds normal. No peritoneal signs Musculoskeletal: No pedal edema, no cyanosis. Skin: No rash or abscess Hem/Lymphatic: No palpable cervical or supraclavicular nodes. No lymphangitis Psych: no agitation Neurological: doesn't follow commands, on the vent - Constitutional Vitals: Vital Signs Temp Pulse Resp BP Pulse Ox 101.1 F H 89 22 127/69 98 02/10/19 08:00 02/10/19 10:30 02/10/19 10:30 02/10/19 10:30 02/10/19 10:30 Temperature -Last 24 Hours Temperature 101.1 F Temperature 99.3 F Temperature 98.5 F Temperature 97.9 F Temperature 97.9 F Temperature 97.5 F - Labs CBC & Chem 7: 02/09/19 03:17 02/09/19 03:17 Labs: Abnormal lab results 02/01/19 02/09/19 02/10/19 Range/Units 17:04 18:54 05:13 ABG pH 7.478 H (7.350-7.450) pH Units ABG Hemoglobin 8.1 L (12.0-16.0) gm/dl Oxyhemoglobin 94.9 L (95.0-99.0) % Urine Creatinine 92.9 H (0.1-20.0) mg/dL Urine Total Protein 116 H (5-11.8) mg/dL CHESTER Screen Positive H (Negative) CHESTER Titer 1:320 H (Negative)
--- NOTE | 2019-02-10 12:02 | Progress Note ---
Assessment and Plan Impression: * Oliguric acute kidney injury secondary to sepsis related ATN --SCr 1.22mg/dl in Sep 2017, 1.2->1.8->2.2 today * Sepsis * Azotemia: BUN increased out of proportion to creatinine; may be related to intravascular depletion, also consider GI bleed although blood counts stable. No recent steroids or catabolic agents * Cellulitis of neck, right --CT Neck: inflammation on the right side of the neck suggestive of cellulitis * Streptococcal bacteremia * Acute encephalopathy * Acute respiratory failure * Metabolic acidosis secondary to lactic acidosis * ?Autoimmune disease * Microscopic hematuria * Proteinuria * Thrombocytopenia Plan: * Renal function worsening again, suspect from underlying etiology. * add ivfs today, appears to be intravascular deplete * may need managing attorney if no better by first of week * No contrast used in recent imaging studies, and no episodes of hypotension. * Continue conservative management for now per primary, maintain MAP>65 * Vent management per CCM * CHESTER pending; HIV, hepatitis, RPR, ANCA negative. Complements low--om decadron * Abx per ID * Reviewed all gis consultant notes * Management of platelet abnormalities per hematology * Dose medications for renal function * Avoid potential nephrotoxic agents * Strict I/O Subjective Date of service: 02/10/19 Principal diagnosis: septic shock Interval history: resting in bed today Objective - Exam Narrative Exam: General appearance: well-developed, sick appearing, intubated EENT: ATNC, ETT in place Respiratory: coarse mechanical breath sounds noted Cardiology: regular, S1S2 Gastrointestinal: normal, no tenderness, no distended Integumentary: warm and dry Musculoskeletal: no edema - Vital Signs Vital signs: Vital Signs - 12hr 02/10/19 02/10/19 02/10/19 00:01 00:13 00:15 Temperature Pulse Rate 94 H 93 H 101 H Pulse Rate [ Anterior Bilateral Throughout] Pulse Rate [ From Monitor] Respiratory 22 24 Rate Respiratory Rate [Anterior Bilateral Throughout] Blood Pressure 127/65 127/65 126/70 O2 Sat by Pulse 95 96 96 Oximetry 02/10/19 02/10/19 02/10/19 00:30 00:45 01:00 Temperature Pulse Rate 101 H 105 H 105 H Pulse Rate [ Anterior Bilateral Throughout] Pulse Rate [ From Monitor] Respiratory 22 22 26 H Rate Respiratory Rate [Anterior Bilateral Throughout] Blood Pressure 112/58 130/73 141/69 O2 Sat by Pulse 96 96 96 Oximetry 02/10/19 02/10/19 02/10/19 01:15 01:30 01:45 Temperature Pulse Rate 105 H 105 H 101 H Pulse Rate [ Anterior Bilateral Throughout] Pulse Rate [ From Monitor] Respiratory 22 26 H 25 H Rate Respiratory Rate [Anterior Bilateral Throughout] Blood Pressure 139/65 148/79 141/75 O2 Sat by Pulse 96 96 97 Oximetry 02/10/19 02/10/19 02/10/19 02:00 02:15 02:31 Temperature Pulse Rate 113 H 111 H 104 H Pulse Rate [ Anterior Bilateral Throughout] Pulse Rate [ From Monitor] Respiratory 25 H 28 H 25 H Rate Respiratory Rate [Anterior Bilateral Throughout] Blood Pressure 145/70 149/70 144/79 O2 Sat by Pulse 97 96 97 Oximetry 02/10/19 02/10/19 02/10/19 02:45 02:54 03:00 Temperature Pulse Rate 108 H 91 H Pulse Rate [ 105 H Anterior Bilateral Throughout] Pulse Rate [ From Monitor] Respiratory 24 14 Rate Respiratory 22 Rate [Anterior Bilateral Throughout] Blood Pressure 138/88 139/76 O2 Sat by Pulse 98 100 Oximetry 02/10/19 02/10/19 02/10/19 03:05 03:15 03:30 Temperature 99.3 F Pulse Rate 117 H 107 H Pulse Rate [ Anterior Bilateral Throughout] Pulse Rate [ From Monitor] Respiratory 26 H 24 Rate Respiratory Rate [Anterior Bilateral Throughout] Blood Pressure 136/74 145/73 O2 Sat by Pulse 98 97 Oximetry 02/10/19 02/10/19 02/10/19 03:45 04:00 04:15 Temperature Pulse Rate 104 H 109 H 109 H Pulse Rate [ Anterior Bilateral Throughout] Pulse Rate [ 102 H From Monitor] Respiratory 22 25 H 25 H Rate Respiratory Rate [Anterior Bilateral Throughout] Blood Pressure 142/64 147/64 142/65 O2 Sat by Pulse 98 98 98 Oximetry 02/10/19 02/10/19 02/10/19 04:30 04:45 05:00 Temperature Pulse Rate 104 H 103 H 105 H Pulse Rate [ Anterior Bilateral Throughout] Pulse Rate [ From Monitor] Respiratory 25 H 21 24 Rate Respiratory Rate [Anterior Bilateral Throughout] Blood Pressure 137/67 137/72 145/68 O2 Sat by Pulse 98 97 97 Oximetry 02/10/19 02/10/19 02/10/19 05:11 05:15 05:30 Temperature Pulse Rate 100 H 98 H 88 Pulse Rate [ Anterior Bilateral Throughout] Pulse Rate [ From Monitor] Respiratory 24 21 Rate Respiratory Rate [Anterior Bilateral Throughout] Blood Pressure 145/68 136/73 136/71 O2 Sat by Pulse 98 98 98 Oximetry 02/10/19 02/10/19 02/10/19 05:45 06:01 06:15 Temperature Pulse Rate 106 H 114 H 102 H Pulse Rate [ Anterior Bilateral Throughout] Pulse Rate [ From Monitor] Respiratory 24 22 24 Rate Respiratory Rate [Anterior Bilateral Throughout] Blood Pressure 135/64 135/64 135/61 O2 Sat by Pulse 98 98 99 Oximetry 02/10/19 02/10/19 02/10/19 06:30 06:45 07:00 Temperature Pulse Rate 111 H 113 H 95 H Pulse Rate [ Anterior Bilateral Throughout] Pulse Rate [ From Monitor] Respiratory 24 25 H 22 Rate Respiratory Rate [Anterior Bilateral Throughout] Blood Pressure 140/64 136/68 139/72 O2 Sat by Pulse 99 98 98 Oximetry 02/10/19 02/10/19 02/10/19 07:15 07:30 07:45 Temperature Pulse Rate 89 91 H 86 Pulse Rate [ Anterior Bilateral Throughout] Pulse Rate [ From Monitor] Respiratory 21 21 21 Rate Respiratory Rate [Anterior Bilateral Throughout] Blood Pressure 130/71 132/72 130/71 O2 Sat by Pulse 98 98 98 Oximetry 02/10/19 02/10/19 02/10/19 08:00 08:10 08:15 Temperature 101.1 F H Pulse Rate 85 85 97 H Pulse Rate [ 102 H Anterior Bilateral Throughout] Pulse Rate [ 85 From Monitor] Respiratory 20 22 Rate Respiratory 20 Rate [Anterior Bilateral Throughout] Blood Pressure 133/69 143/77 143/77 O2 Sat by Pulse 98 97 97 Oximetry 02/10/19 02/10/19 02/10/19 08:31 08:45 09:00 Temperature Pulse Rate 108 H 95 H 97 H Pulse Rate [ Anterior Bilateral Throughout] Pulse Rate [ From Monitor] Respiratory 16 14 24 Rate Respiratory Rate [Anterior Bilateral Throughout] Blood Pressure 139/85 134/78 134/73 O2 Sat by Pulse 100 100 97 Oximetry 02/10/19 02/10/19 02/10/19 09:15 09:30 09:45 Temperature Pulse Rate 112 H 114 H 115 H Pulse Rate [ Anterior Bilateral Throughout] Pulse Rate [ From Monitor] Respiratory 25 H 25 H 22 Rate Respiratory Rate [Anterior Bilateral Throughout] Blood Pressure 130/77 131/69 122/66 O2 Sat by Pulse 98 98 98 Oximetry 02/10/19 02/10/19 02/10/19 10:00 10:15 10:30 Temperature Pulse Rate 100 H 91 H 89 Pulse Rate [ Anterior Bilateral Throughout] Pulse Rate [ From Monitor] Respiratory 21 22 22 Rate Respiratory Rate [Anterior Bilateral Throughout] Blood Pressure 121/62 119/62 127/69 O2 Sat by Pulse 99 98 98 Oximetry 02/10/19 11:40 Temperature Pulse Rate 98 H Pulse Rate [ Anterior Bilateral Throughout] Pulse Rate [ From Monitor] Respiratory Rate Respiratory Rate [Anterior Bilateral Throughout] Blood Pressure 130/69 O2 Sat by Pulse 99 Oximetry - Lab 02/09/19 03:17 02/09/19 03:17 Most recent lab results ABG pH 7.478 pH Units (7.350-7.450) H 02/10/19 05:13 ABG pCO2 34.7 mm Hg 02/10/19 05:13 ABG pO2 80.4 mm Hg (80.0-90.0) 02/10/19 05:13 ABG HCO3 25.1 mmol/L (20.0-26.0) 02/10/19 05:13 ABG O2 Saturation 96.9 % (95.0-99.0) 02/10/19 05:13 Calcium 8.1 mg/dL (8.4-10.2) L 02/09/19 03:17 Magnesium 2.20 mg/dL (1.7-2.3) 02/07/19 01:07 92.9 mg/dL (0.1-20.0) H 02/09/19 18:54 116 mg/dL (5-11.8) H 02/09/19 18:54 Medications & Allergies - Medications Allergies/Adverse Reactions: Allergies No Known Allergies Allergy (Verified 08/18/18 09:04) Home Medications: Home Medications Medication Instructions Recorded Confirmed Last Taken Type Levothyroxine [Synthroid] 112 mcg PO QAM 02/01/19 02/01/19 Unknown History Lisinopril [Zestril TAB] 40 mg PO QDAY 02/01/19 02/01/19 Unknown History amLODIPine [Norvasc] 10 mg PO DAILY 02/01/19 02/01/19 Unknown History cloNIDine [Catapres] 1 mg PO QDAY 02/01/19 02/01/19 Unknown History Active Medications: Generic Name Dose Route Start Last Admin Trade Name Mikeyq PRN Reason Stop Dose Admin Acetaminophen 650 mg 02/01/19 10:47 02/10/19 09:54 Tylenol PO 650 mg Q4H PRN Administration Pain MILD(1-3)/Fever >100.5/VALENZUELA Albuterol 2.5 mg 02/01/19 10:47 Proventil IH Q4HRT PRN Shortness Of Breath Albuterol/Ipratropium 1 ampul 02/01/19 12:00 02/10/19 08:10 Duoneb *Not For Prn Use* IH 1 ampul Q6HRT AMOL Administration Lipase/Protease/Amylase 1 each 02/05/19 11:04 Pancreaze 10,500 Unit FEEDTUBE PRN PRN For Clogged Feeding Tube Dexamethasone 4 mg 02/09/19 12:00 02/10/19 06:40 Decadron IV 4 mg Q6HR AMOL Administration Famotidine 20 mg 02/07/19 10:00 02/10/19 09:55 Pepcid PO 20 mg DAILY AMOL Administration Folic Acid 1 mg 02/06/19 10:00 02/10/19 09:55 Folvite PO 1 mg QDAY AMOL Administration Hydrophilic Ointment 1 applic 02/01/19 11:09 02/02/19 16:50 Vaseline Lip Therapy TP 1 applic Q2HR PRN Administration Dry Lips Ceftriaxone Sodium 2 gm in 100 mls @ 200 mls/hr 02/05/19 13:00 02/10/19 09:55 Rocephin/Ns 2 Gm/100 Ml IV 100 mls/hr Q12HR AMOL Administration Protocol Diltiazem HCl 100 mg in 100 mls @ 5 mls/hr 02/07/19 12:30 02/10/19 08:31 Cardizem/D5w 100mg/100ml IV 10 mg/hr TITR AMOL 10 mls/hr Administration Protocol 5 MG/HR Levothyroxine Sodium 125 mcg 02/07/19 10:00 02/10/19 09:55 Synthroid PO 125 mcg QAM AMOL Administration Multi-Ingred Cream/Lotion/Oil/Oint 1 applic 02/01/19 11:09 02/08/19 21:18 Artificial Tears Ophth Oint OU 1 applic Q4HR PRN Administration Dry Eye(s) Multivitamins 5 ml 02/06/19 10:00 02/10/19 09:54 Centrum Liq PO 5 ml QDAY AMOL Administration Ondansetron HCl 4 mg 02/01/19 10:47 Zofran IV Q8H PRN Nausea And Vomiting Simple Syrup 15 ml 02/05/19 11:04 Simple Syrup FEEDTUBE PRN PRN Hypoglycemia Simple Syrup 30 ml 02/05/19 11:04 Simple Syrup FEEDTUBE PRN PRN Hypoglycemia Sodium Bicarbonate 325 mg 02/05/19 11:04 Sodium Bicarbonate FEEDTUBE PRN PRN For Clogged Feeding Tube Sodium Chloride 10 ml 02/01/19 22:00 02/10/19 09:55 Sodium Chloride Flush Syringe 10 Ml IV 10 ml BID AMOL Administration Sodium Chloride 10 ml 02/01/19 10:47 Sodium Chloride Flush Syringe 10 Ml IV PRN PRN LINE FLUSH
--- NOTE | 2019-02-10 12:29 | Progress Note ---
Assessment and Plan TERRENCE is pending. The patient's cardiac status is stable. Continue diltiazem and other current cardiac management. Her overall prognosis is poor. We will continue supportive care for now. The patient has been seen in conjunction with Dr. Jarvis, who agrees with the assessment and plan. - Patient Problems (1) Acute renal failure Current Visit: Yes Status: Acute (2) Acute respiratory failure Current Visit: Yes Status: Acute (3) Altered mental status Current Visit: Yes Status: Acute (4) Atrial fibrillation with RVR Current Visit: Yes Status: Resolved (5) Bacteremia Current Visit: Yes Status: Acute (6) Encephalopathy Current Visit: Yes Status: Acute (7) Thrombocytopenia Current Visit: Yes Status: Acute (8) PFO (patent foramen ovale) Current Visit: Yes Status: Suspected (9) Pulmonary valve vegetation Current Visit: Yes Status: Suspected Subjective Date of service: 02/10/19 Principal diagnosis: septic shock Interval history: The patient is intubated and unresponsive off sedation. SR with PACs and PVCs noted on telemetry. Objective Last Vital Signs Temp 101.1 F H 02/10/19 08:00 Pulse 98 H 02/10/19 11:40 Resp 22 02/10/19 10:30 BP 130/69 02/10/19 11:40 Pulse Ox 99 02/10/19 11:40 - Physical Examination General: Other (intubated, unresponsive. ) HEENT: Positive: Normocephaly Neck: Positive: neck supple Cardiac: Positive: Regular Rhythm Lungs: Positive: Ventilated Respirations Neuro: Positive: Other (intubated ) Abdomen: Positive: Unremarkable /Rectal: Other (deferred) Skin: Positive: Clear Extremities: Present: normal - Imaging and Cardiology EKG: report reviewed, image reviewed Echo: report reviewed ( 02/02/2019 showed EF 55-60%, mild to mod LVH, atrial septal aneurysm, aortic valve heavily calcified, dense mitral annular calcification, mild MR, mild TR, mild MI, bubble study suggestive of PFO, ? pulmonic valve vegetation.) - Telemetry EKG Rhythm: Sinus Rhythm - EKG Supraventricular dysrhythmia: atrial premature complexe Ventricular dysrhythmias: ventricular premature com
[2019-02-10] MEDS: SODIUM CHLORIDE 0.45% 1000 ML 1,000 ML IV SCH (13:08)
[2019-02-10 14:17] LABS: Mucus,Urine FEW /HPF
--- NOTE | 2019-02-10 16:23 | Progress Note ---
Assessment and Plan Imp: 1. Neck cellulitis versus LAD 2. Bacteremia 3. Severe sepsis 4. DIANA 5. Hyperkalemia 6. Lactic acidosis 7. Acute respiratory failure, hypoxia 8. Metabolic encephalopathy 9. 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 ? SLE 12. Acute CVA Rec: 1. ABX per ID 2. 1/2 NS started; renal on board re: DIANA 3. Off all sedation; f/u EEG; f/u neuro recs 4. No vegetations on TERRENCE 5. PSV daily although poor mentation precludes extubation; likely will trach/PEG next week 6. TFs, Pepcid, SCDs 7. Fever noted; repeat blood, urine, and sputum cultures; ID following; possible fever could be central in light of strokes 8. Cont. Decadron for now 9. Prognosis guarded to poor Plan of care reviewed w/ cousin/mother, they understand/agree CCt 31 minutes Subjective Date of service: 02/10/19 Principal diagnosis: septic shock Interval history: No events. Eyes open, not following commands, tracking, or moving extremities. On ACVC. Active Medications Acetaminophen (Tylenol) 650 mg PO Q4H PRN PRN Reason: Pain MILD(1-3)/Fever >100.5/VALENZUELA Last Admin: 02/10/19 15:57 Dose: 650 mg Documented by: Albuterol (Proventil) 2.5 mg IH Q4HRT PRN PRN Reason: Shortness Of Breath Albuterol/Ipratropium (Duoneb *Not For Prn Use*) 1 ampul IH Q6HRT [facility] Last Admin: 02/10/19 13:55 Dose: 1 ampul Documented by: Lipase/Protease/Amylase (Carola Hammond 10,500 Unit) 1 each FEEDTUBE PRN PRN PRN Reason: For Clogged Feeding Tube Dexamethasone (Decadron) 4 mg IV Q6HR [facility] Last Admin: 02/10/19 17:13 Dose: 4 mg Documented by: Famotidine (Pepcid) 20 mg PO DAILY [facility] Last Admin: 02/10/19 09:55 Dose: 20 mg Documented by: Folic Acid (Folvite) 1 mg PO QDAY [facility] Last Admin: 02/10/19 09:55 Dose: 1 mg Documented by: Hydrophilic Ointment (Vaseline Lip Therapy) 1 applic TP Q2HR PRN PRN Reason: Dry Lips Last Admin: 02/02/19 16:50 Dose: 1 applic Documented by: Ceftriaxone Sodium (Rocephin/Ns 2 Gm/100 Ml) 2 gm in 100 mls @ 200 mls/hr IV Q12HR [facility]; Protocol Last Admin: 02/10/19 09:55 Dose: 100 mls/hr Documented by: Diltiazem HCl (Cardizem/D5w 100mg/100ml) 100 mg in 100 mls @ 5 mls/hr IV TITR [facility]; Protocol Last Admin: 02/10/19 08:31 Dose: 10 mg/hr, 10 mls/hr Documented by: Sodium Chloride (Nacl 0.45% 1000 Ml) 1,000 mls @ 100 mls/hr IV DIRECT [facility] Last Admin: 02/10/19 13:08 Dose: 100 mls/hr Documented by: Insulin Human Regular (Humulin R) 0 units SUB-Q Q6HR [facility]; Protocol Last Admin: 02/10/19 18:52 Dose: 10 units Documented by: Levothyroxine Sodium (Synthroid) 125 mcg PO QAM [facility] Last Admin: 02/10/19 09:55 Dose: 125 mcg Documented by: Multi-Ingred Cream/Lotion/Oil/Oint (Artificial Tears Ophth Oint) 1 applic OU Q4HR PRN PRN Reason: Dry Eye(s) Last Admin: 02/08/19 21:18 Dose: 1 applic Documented by: Multivitamins (Centrum Liq) 5 ml PO QDAY [facility] Last Admin: 02/10/19 09:54 Dose: 5 ml Documented by: Ondansetron HCl (Zofran) 4 mg IV Q8H PRN PRN Reason: Nausea And Vomiting Simple Syrup (Simple Syrup) 15 ml FEEDTUBE PRN PRN PRN Reason: Hypoglycemia Simple Syrup (Simple Syrup) 30 ml FEEDTUBE PRN PRN PRN Reason: Hypoglycemia Sodium Bicarbonate (Sodium Bicarbonate) 325 mg FEEDTUBE PRN PRN PRN Reason: For Clogged Feeding Tube Sodium Chloride (Sodium Chloride Flush Syringe 10 Ml) 10 ml IV BID [facility] Last Admin: 02/10/19 09:55 Dose: 10 ml Documented by: Sodium Chloride (Sodium Chloride Flush Syringe 10 Ml) 10 ml IV PRN PRN PRN Reason: LINE FLUSH Objective Vital Signs - 12hr 02/10/19 02/10/19 02/10/19 04:30 04:45 05:00 Temperature Pulse Rate 104 H 103 H 105 H Pulse Rate [ Anterior Bilateral Throughout] Pulse Rate [ From Monitor] Respiratory 25 H 21 24 Rate Respiratory Rate [Anterior Bilateral Throughout] Blood Pressure 137/67 137/72 145/68 O2 Sat by Pulse 98 97 97 Oximetry 02/10/19 02/10/19 02/10/19 05:11 05:15 05:30 Temperature Pulse Rate 100 H 98 H 88 Pulse Rate [ Anterior Bilateral Throughout] Pulse Rate [ From Monitor] Respiratory 24 21 Rate Respiratory Rate [Anterior Bilateral Throughout] Blood Pressure 145/68 136/73 136/71 O2 Sat by Pulse 98 98 98 Oximetry 02/10/19 02/10/19 02/10/19 05:45 06:01 06:15 Temperature Pulse Rate 106 H 114 H 102 H Pulse Rate [ Anterior Bilateral Throughout] Pulse Rate [ From Monitor] Respiratory 24 22 24 Rate Respiratory Rate [Anterior Bilateral Throughout] Blood Pressure 135/64 135/64 135/61 O2 Sat by Pulse 98 98 99 Oximetry 02/10/19 02/10/19 02/10/19 06:30 06:45 07:00 Temperature Pulse Rate 111 H 113 H 95 H Pulse Rate [ Anterior Bilateral Throughout] Pulse Rate [ From Monitor] Respiratory 24 25 H 22 Rate Respiratory Rate [Anterior Bilateral Throughout] Blood Pressure 140/64 136/68 139/72 O2 Sat by Pulse 99 98 98 Oximetry 02/10/19 02/10/19 02/10/19 07:15 07:30 07:45 Temperature Pulse Rate 89 91 H 86 Pulse Rate [ Anterior Bilateral Throughout] Pulse Rate [ From Monitor] Respiratory 21 21 21 Rate Respiratory Rate [Anterior Bilateral Throughout] Blood Pressure 130/71 132/72 130/71 O2 Sat by Pulse 98 98 98 Oximetry 02/10/19 02/10/19 02/10/19 08:00 08:10 08:15 Temperature 101.1 F H Pulse Rate 85 85 97 H Pulse Rate [ 102 H Anterior Bilateral Throughout] Pulse Rate [ 85 From Monitor] Respiratory 20 22 Rate Respiratory 20 Rate [Anterior Bilateral Throughout] Blood Pressure 133/69 143/77 143/77 O2 Sat by Pulse 98 97 97 Oximetry 02/10/19 02/10/19 02/10/19 08:31 08:45 09:00 Temperature Pulse Rate 108 H 95 H 97 H Pulse Rate [ Anterior Bilateral Throughout] Pulse Rate [ From Monitor] Respiratory 16 14 24 Rate Respiratory Rate [Anterior Bilateral Throughout] Blood Pressure 139/85 134/78 134/73 O2 Sat by Pulse 100 100 97 Oximetry 02/10/19 02/10/19 02/10/19 09:15 09:30 09:45 Temperature Pulse Rate 112 H 114 H 115 H Pulse Rate [ Anterior Bilateral Throughout] Pulse Rate [ From Monitor] Respiratory 25 H 25 H 22 Rate Respiratory Rate [Anterior Bilateral Throughout] Blood Pressure 130/77 131/69 122/66 O2 Sat by Pulse 98 98 98 Oximetry 02/10/19 02/10/19 02/10/19 10:00 10:15 10:30 Temperature Pulse Rate 100 H 91 H 89 Pulse Rate [ Anterior Bilateral Throughout] Pulse Rate [ From Monitor] Respiratory 21 22 22 Rate Respiratory Rate [Anterior Bilateral Throughout] Blood Pressure 121/62 119/62 127/69 O2 Sat by Pulse 99 98 98 Oximetry 02/10/19 02/10/19 02/10/19 10:45 11:00 11:15 Temperature Pulse Rate 100 H 93 H 92 H Pulse Rate [ Anterior Bilateral Throughout] Pulse Rate [ From Monitor] Respiratory 24 22 Rate Respiratory Rate [Anterior Bilateral Throughout] Blood Pressure 134/75 120/61 118/65 O2 Sat by Pulse 98 99 99 Oximetry 02/10/19 02/10/19 02/10/19 11:30 11:40 11:45 Temperature Pulse Rate 92 H 98 H 98 H Pulse Rate [ Anterior Bilateral Throughout] Pulse Rate [ From Monitor] Respiratory 24 25 H Rate Respiratory Rate [Anterior Bilateral Throughout] Blood Pressure 123/74 130/69 130/69 O2 Sat by Pulse 99 99 99 Oximetry 02/10/19 02/10/19 02/10/19 12:00 12:15 12:30 Temperature 101.0 F H Pulse Rate 100 H 96 H 103 H Pulse Rate [ Anterior Bilateral Throughout] Pulse Rate [ 100 H From Monitor] Respiratory 24 24 24 Rate Respiratory Rate [Anterior Bilateral Throughout] Blood Pressure 137/76 118/60 138/69 O2 Sat by Pulse 99 98 98 Oximetry 02/10/19 02/10/19 02/10/19 12:45 13:00 13:15 Temperature Pulse Rate 101 H 99 H 94 H Pulse Rate [ Anterior Bilateral Throughout] Pulse Rate [ From Monitor] Respiratory 25 H 24 22 Rate Respiratory Rate [Anterior Bilateral Throughout] Blood Pressure 145/78 145/81 146/78 O2 Sat by Pulse 99 98 98 Oximetry 02/10/19 02/10/19 02/10/19 13:30 13:45 13:55 Temperature Pulse Rate 95 H 110 H Pulse Rate [ 94 H Anterior Bilateral Throughout] Pulse Rate [ From Monitor] Respiratory 18 30 H Rate Respiratory 15 Rate [Anterior Bilateral Throughout] Blood Pressure 144/81 144/70 O2 Sat by Pulse 98 98 Oximetry 02/10/19 02/10/19 02/10/19 14:01 14:15 14:30 Temperature Pulse Rate 95 H 91 H 89 Pulse Rate [ Anterior Bilateral Throughout] Pulse Rate [ From Monitor] Respiratory 15 21 23 Rate Respiratory Rate [Anterior Bilateral Throughout] Blood Pressure 140/90 146/74 143/76 O2 Sat by Pulse 100 99 99 Oximetry 02/10/19 02/10/19 02/10/19 14:45 15:00 15:15 Temperature Pulse Rate 85 102 H 93 H Pulse Rate [ Anterior Bilateral Throughout] Pulse Rate [ From Monitor] Respiratory 22 25 H 24 Rate Respiratory Rate [Anterior Bilateral Throughout] Blood Pressure 140/73 148/82 148/83 O2 Sat by Pulse 99 98 98 Oximetry 02/10/19 15:40 Temperature Pulse Rate 87 Pulse Rate [ Anterior Bilateral Throughout] Pulse Rate [ From Monitor] Respiratory Rate Respiratory Rate [Anterior Bilateral Throughout] Blood Pressure 154/84 O2 Sat by Pulse 99 Oximetry Constitutional: comatose, other (orally intubated on mechanical ventilator. Not on sedation) Eyes: non-icteric ENT: oropharynx moist Neck: supple Effort: normal Ascultation: Bilateral: other (coarse BS bilaterally) Cardiovascular: other (tachy, RR; no mrg) Gastrointestinal: normoactive bowel sounds, soft, non-tender, non-distended Integumentary: normal Extremities: no cyanosis, no edema, pink and warm Neurologic: other (eyes open, not following commands or moving extremities) Psychiatric: other (unable to assess) CBC and BMP: 02/09/19 03:17 02/09/19 03:17 ABG, PT/INR, D-dimer: ABG POC ABG pH 7.477 (7.35-7.45) H 02/07/19 10:58 ABG pH 7.478 pH Units (7.350-7.450) H 02/10/19 05:13 POC ABG pCO2 34.8 (35-45) L 02/07/19 10:58 ABG pCO2 34.7 mm Hg 02/10/19 05:13 POC ABG pO2 118 (80-105) H 02/07/19 10:58 ABG pO2 80.4 mm Hg (80.0-90.0) 02/10/19 05:13 POC ABG HCO3 25.8 (22-26 mml/L) 02/07/19 10:58 POC ABG Total CO2 27 (23-27mmol/L) 02/07/19 10:58 POC ABG O2 Sat 99 02/07/19 10:58 ABG O2 Saturation 96.9 % (95.0-99.0) 02/10/19 05:13 PT/INR, D-dimer PT 16.3 Sec. (12.2-14.9) H 02/06/19 07:35 INR 1.35 (0.87-1.13) H 02/06/19 07:35 Abnormal lab findings: Abnormal Labs 02/01/19 02/01/19 02/01/19 07:16 07:16 07:16 WBC 17.7 H RBC Hgb Hct RDW 16.9 H Plt Count 62 L Seg Neuts % (Manual) 95.0 H Lymphocytes % (Manual) 0 L Seg Neutrophils # Man 16.8 H Lymphocytes # (Manual) 0.0 L PT 15.0 H INR 1.21 H APTT Thrombin Time 20.0 H POC ABG pH ABG pH POC ABG pCO2 POC ABG pO2 ABG pO2 ABG HCO3 ABG Base Excess ABG Hemoglobin Oxyhemoglobin Sodium 135 L Potassium Chloride 97.7 L Carbon Dioxide 19 L BUN 51 H Creatinine 4.5 H Glucose 112 H POC Glucose Lactic Acid Calcium Iron TIBC Direct Bilirubin AST Troponin T 0.181 H* C-Reactive Protein Total Protein Albumin LDL Cholesterol Direct 34 L HDL Cholesterol 20 L Vitamin B12 Folate TSH Urine WBC (Auto) Urine Creatinine Urine Total Protein CHESTER Screen CHE[place] Titer Complement C3 Complement C4 02/01/19 02/01/19 02/01/19 07:29 07:29 07:43 WBC RBC Hgb Hct RDW Plt Count Seg Neuts % (Manual) Lymphocytes % (Manual) Seg Neutrophils # Man Lymphocytes # (Manual) PT INR APTT Thrombin Time POC ABG pH ABG pH POC ABG pCO2 POC ABG pO2 ABG pO2 ABG HCO3 ABG Base Excess ABG Hemoglobin Oxyhemoglobin Sodium Potassium Chloride Carbon Dioxide BUN Creatinine Glucose POC Glucose Lactic Acid 4.80 H* Calcium Iron TIBC Direct Bilirubin 0.7 H AST 42 H Troponin T C-Reactive Protein Total Protein 8.9 H Albumin 2.3 L LDL Cholesterol Direct HDL Cholesterol Vitamin B12 Folate TSH 8.470 H Urine WBC (Auto) Urine Creatinine Urine Total Protein [place] Screen [place] Titer Complement C3 Complement C4 02/01/19 02/01/19 02/01/19 09:45 11:32 13:50 WBC RBC Hgb Hct RDW Plt Count Seg Neuts % (Manual) Lymphocytes % (Manual) Seg Neutrophils # Man Lymphocytes # (Manual) PT INR APTT Thrombin Time POC ABG pH 7.289 L ABG pH POC ABG pCO2 POC ABG pO2 355 H ABG pO2 ABG HCO3 ABG Base Excess ABG Hemoglobin Oxyhemoglobin Sodium Potassium Chloride Carbon Dioxide BUN Creatinine Glucose POC Glucose Lactic Acid 4.10 H* Calcium Iron TIBC Direct Bilirubin AST Troponin T C-Reactive Protein Total Protein Albumin LDL Cholesterol Direct HDL Cholesterol Vitamin B12 Folate TSH Urine WBC (Auto) 16.0 H Urine Creatinine Urine Total Protein [place] Screen [place] Titer Complement C3 Complement C4 02/01/19 02/01/19 02/01/19 15:15 16:20 16:51 WBC RBC Hgb Hct RDW Plt Count Seg Neuts % (Manual) Lymphocytes % (Manual) Seg Neutrophils # Man Lymphocytes # (Manual) PT INR APTT Thrombin Time POC ABG pH ABG pH POC ABG pCO2 POC ABG pO2 ABG pO2 ABG HCO3 ABG Base Excess ABG Hemoglobin Oxyhemoglobin Sodium Potassium Chloride Carbon Dioxide BUN Creatinine Glucose POC Glucose 115 H Lactic Acid 4.50 H* Calcium Iron TIBC Direct Bilirubin AST Troponin T C-Reactive Protein Total Protein Albumin LDL Cholesterol Direct HDL Cholesterol Vitamin B12 Folate TSH Urine WBC (Auto) Urine Creatinine Urine Total Protein [place] Screen [place] Titer Complement C3 36 L Complement C4 02/01/19 02/01/19 02/01/19 16:51 17:03 17:04 WBC RBC Hgb Hct RDW Plt Count Seg Neuts % (Manual) Lymphocytes % (Manual) Seg Neutrophils # Man Lymphocytes # (Manual) PT INR APTT Thrombin Time POC ABG pH ABG pH POC ABG pCO2 POC ABG pO2 ABG pO2 ABG HCO3 ABG Base Excess ABG Hemoglobin Oxyhemoglobin Sodium Potassium Chloride Carbon Dioxide BUN Creatinine Glucose POC Glucose Lactic Acid 2.80 H* Calcium Iron TIBC Direct Bilirubin AST Troponin T C-Reactive Protein 32.30 H Total Protein Albumin LDL Cholesterol Direct HDL Cholesterol Vitamin B12 Folate TSH Urine WBC (Auto) Urine Creatinine Urine Total Protein [place] Screen [place] Titer Complement C3 Complement C4 12 L 02/01/19 02/01/19 02/02/19 17:04 19:28 05:16 WBC RBC Hgb Hct RDW Plt Count Seg Neuts % (Manual) Lymphocytes % (Manual) Seg Neutrophils # Man Lymphocytes # (Manual) PT INR APTT Thrombin Time POC ABG pH ABG pH POC ABG pCO2 POC ABG pO2 148 H ABG pO2 ABG HCO3 ABG Base Excess ABG Hemoglobin Oxyhemoglobin Sodium Potassium Chloride 107.1 H Carbon Dioxide 18 L BUN 52 H Creatinine 3.1 H Glucose 120 H POC Glucose Lactic Acid Calcium 7.4 L Iron TIBC Direct Bilirubin AST Troponin T C-Reactive Protein Total Protein Albumin LDL Cholesterol Direct HDL Cholesterol Vitamin B12 Folate TSH Urine WBC (Auto) Urine Creatinine Urine Total Protein [place] Screen Positive H CHESTER Titer 1:320 H Complement C3 Complement C4 02/02/19 02/02/19 02/03/19 05:53 05:53 03:30 WBC 14.3 H RBC 5.16 H Hgb 14.9 H Hct 46.2 H D RDW 16.9 H 17.0 H Plt Count 43 L 18 L* Seg Neuts % (Manual) 93.0 H Lymphocytes % (Manual) 2.0 L Seg Neutrophils # Man 13.3 H Lymphocytes # (Manual) 0.3 L PT INR APTT Thrombin Time POC ABG pH ABG pH POC ABG pCO2 POC ABG pO2 ABG pO2 ABG HCO3 ABG Base Excess ABG Hemoglobin Oxyhemoglobin Sodium Potassium 5.1 H Chloride Carbon Dioxide 21 L BUN 57 H Creatinine 3.3 H Glucose 147 H POC Glucose Lactic Acid Calcium 7.5 L Iron TIBC Direct Bilirubin AST 51 H Troponin T C-Reactive Protein Total Protein Albumin 1.6 L LDL Cholesterol Direct HDL Cholesterol Vitamin B12 Folate TSH Urine WBC (Auto) Urine Creatinine Urine Total Protein [place] Screen [place] Titer Complement C3 Complement C4 02/03/19 02/03/19 02/03/19 03:30 05:55 14:42 WBC RBC Hgb Hct RDW Plt Count Seg Neuts % (Manual) Lymphocytes % (Manual) Seg Neutrophils # Man Lymphocytes # (Manual) PT INR APTT Thrombin Time POC ABG pH ABG pH POC ABG pCO2 POC ABG pO2 117 H ABG pO2 ABG HCO3 ABG Base Excess ABG Hemoglobin Oxyhemoglobin Sodium Potassium Chloride Carbon Dioxide BUN 65 H Creatinine 2.7 H Glucose 117 H POC Glucose Lactic Acid Calcium 7.2 L Iron TIBC Direct Bilirubin AST Troponin T C-Reactive Protein Total Protein Albumin LDL Cholesterol Direct HDL Cholesterol Vitamin B12 1468 H Folate TSH Urine WBC (Auto) Urine Creatinine Urine Total Protein [place] Screen [place] Titer Complement C3 Complement C4 02/03/19 02/03/19 02/03/19 14:42 14:42 14:42 WBC RBC 3.17 L Hgb 9.4 L D Hct 28.3 L D RDW 16.9 H Plt Count 18 L* Seg Neuts % (Manual) Lymphocytes % (Manual) Seg Neutrophils # Man Lymphocytes # (Manual) PT INR APTT Thrombin Time POC ABG pH ABG pH POC ABG pCO2 POC ABG pO2 ABG pO2 ABG HCO3 ABG Base Excess ABG Hemoglobin Oxyhemoglobin Sodium Potassium Chloride Carbon Dioxide BUN Creatinine Glucose POC Glucose Lactic Acid Calcium Iron 11 L TIBC 88 L Direct Bilirubin AST Troponin T C-Reactive Protein Total Protein Albumin LDL Cholesterol Direct HDL Cholesterol Vitamin B12 Folate 5.18 L TSH Urine WBC (Auto) Urine Creatinine Urine Total Protein [place] Screen [place] Titer Complement C3 Complement C4 02/03/19 02/03/19 02/04/19 14:42 14:42 03:35 WBC RBC 3.22 L Hgb 9.5 L Hct 28.5 L RDW 16.4 H Plt Count 18 L* Seg Neuts % (Manual) Lymphocytes % (Manual) Seg Neutrophils # Man Lymphocytes # (Manual) PT 15.8 H INR 1.29 H APTT 38.2 H Thrombin Time POC ABG pH ABG pH 7.470 H POC ABG pCO2 POC ABG pO2 ABG pO2 ABG HCO3 28.4 H ABG Base Excess 4.5 H ABG Hemoglobin 10.1 L Oxyhemoglobin 94.7 L Sodium Potassium Chloride Carbon Dioxide BUN Creatinine Glucose POC Glucose Lactic Acid Calcium Iron TIBC Direct Bilirubin AST Troponin T C-Reactive Protein Total Protein Albumin LDL Cholesterol Direct HDL Cholesterol Vitamin B12 Folate TSH Urine WBC (Auto) Urine Creatinine Urine Total Protein [place] Screen [place] Titer Complement C3 Complement C4 02/04/19 02/04/19 02/05/19 05:02 05:02 03:50 WBC RBC Hgb Hct RDW 16.5 H Plt Count 20 L Seg Neuts % (Manual) 94.0 H Lymphocytes % (Manual) 2.0 L Seg Neutrophils # Man 9.2 H Lymphocytes # (Manual) 0.2 L PT INR APTT Thrombin Time POC ABG pH ABG pH 7.485 H POC ABG pCO2 POC ABG pO2 ABG pO2 ABG HCO3 27.5 H ABG Base Excess 3.9 H ABG Hemoglobin 9.1 L Oxyhemoglobin 94.8 L Sodium Potassium Chloride Carbon Dioxide BUN 66 H Creatinine 1.7 H Glucose 127 H POC Glucose Lactic Acid Calcium 7.6 L Iron TIBC Direct Bilirubin AST Troponin T C-Reactive Protein Total Protein Albumin LDL Cholesterol Direct HDL Cholesterol Vitamin B12 Folate TSH Urine WBC (Auto) Urine Creatinine Urine Total Protein [place] Screen [place] Titer Complement C3 Complement C4 02/05/19 02/05/19 02/05/19 13:02 14:36 20:03 WBC 11.7 H RBC 3.48 L 3.24 L Hgb 10.0 L 9.4 L Hct 29.2 L RDW 16.3 H 16.3 H Plt Count 50 L D 71 L Seg Neuts % (Manual) 95.0 H 95.0 H Lymphocytes % (Manual) 0 L 2.0 L Seg Neutrophils # Man 11.1 H 10.2 H Lymphocytes # (Manual) 0.0 L 0.2 L PT INR APTT Thrombin Time POC ABG pH ABG pH POC ABG pCO2 POC ABG pO2 ABG pO2 ABG HCO3 ABG Base Excess ABG Hemoglobin Oxyhemoglobin Sodium Potassium Chloride Carbon Dioxide BUN 67 H Creatinine 1.5 H Glucose POC Glucose Lactic Acid Calcium 7.7 L Iron TIBC Direct Bilirubin AST Troponin T C-Reactive Protein Total Protein Albumin LDL Cholesterol Direct HDL Cholesterol Vitamin B12 Folate TSH Urine WBC (Auto) Urine Creatinine Urine Total Protein [place] Screen [place] Titer Complement C3 Complement C4 02/06/19 02/06/19 02/06/19 05:39 07:35 18:34 WBC RBC Hgb Hct RDW Plt Count Seg Neuts % (Manual) Lymphocytes % (Manual) Seg Neutrophils # Man Lymphocytes # (Manual) PT 16.3 H INR 1.35 H APTT Thrombin Time POC ABG pH ABG pH POC ABG pCO2 POC ABG pO2 ABG pO2 ABG HCO3 ABG Base Excess ABG Hemoglobin Oxyhemoglobin Sodium Potassium Chloride Carbon Dioxide BUN Creatinine Glucose POC Glucose 107 H 121 H Lactic Acid Calcium Iron TIBC Direct Bilirubin AST Troponin T C-Reactive Protein Total Protein Albumin LDL Cholesterol Direct HDL Cholesterol Vitamin B12 Folate TSH Urine WBC (Auto) Urine Creatinine Urine Total Protein [place] Screen [place] Titer Complement C3 Complement C4 02/06/19 02/07/19 02/07/19 Unknown 01:07 04:15 WBC RBC Hgb Hct RDW Plt Count Seg Neuts % (Manual) Lymphocytes % (Manual) Seg Neutrophils # Man Lymphocytes # (Manual) PT INR APTT Thrombin Time POC ABG pH ABG pH POC ABG pCO2 POC ABG pO2 ABG pO2 ABG HCO3 ABG Base Excess ABG Hemoglobin 5.0 L Oxyhemoglobin 94.9 L 94.8 L Sodium 146 H Potassium Chloride Carbon Dioxide BUN 85 H Creatinine 1.8 H Glucose 163 H POC Glucose Lactic Acid Calcium 8.3 L Iron TIBC Direct Bilirubin AST Troponin T C-Reactive Protein Total Protein Albumin LDL Cholesterol Direct HDL Cholesterol Vitamin B12 Folate TSH Urine WBC (Auto) Urine Creatinine Urine Total Protein [place] Screen [place] Titer Complement C3 Complement C4 02/07/19 02/07/19 02/08/19 08:22 10:58 04:40 WBC RBC Hgb Hct RDW 16.0 H Plt Count 84 L Seg Neuts % (Manual) 97.0 H Lymphocytes % (Manual) 0 L Seg Neutrophils # Man 9.5 H Lymphocytes # (Manual) 0.0 L PT INR APTT Thrombin Time POC ABG pH 7.477 H ABG pH 7.467 H POC ABG pCO2 34.8 L POC ABG pO2 118 H ABG pO2 ABG HCO3 ABG Base Excess ABG Hemoglobin 8.4 L Oxyhemoglobin Sodium Potassium Chloride Carbon Dioxide BUN Creatinine Glucose POC Glucose Lactic Acid Calcium Iron TIBC Direct Bilirubin AST Troponin T C-Reactive Protein Total Protein Albumin LDL Cholesterol Direct HDL Cholesterol Vitamin B12 Folate TSH Urine WBC (Auto) Urine Creatinine Urine Total Protein [place] Screen [place] Titer Complement C3 Complement C4 02/09/19 02/09/19 02/09/19 03:17 03:17 04:35 WBC 14.9 H RBC 3.32 L Hgb 9.6 L Hct RDW 15.9 H Plt Count 113 L Seg Neuts % (Manual) 96.0 H Lymphocytes % (Manual) 1.0 L Seg Neutrophils # Man 14.3 H Lymphocytes # (Manual) 0.1 L PT INR APTT Thrombin Time POC ABG pH ABG pH 7.478 H POC ABG pCO2 POC ABG pO2 ABG pO2 94.5 H ABG HCO3 ABG Base Excess ABG Hemoglobin 6.1 L Oxyhemoglobin Sodium 147 H Potassium Chloride 110.4 H Carbon Dioxide BUN 114 H Creatinine 2.2 H Glucose 270 H POC Glucose Lactic Acid Calcium 8.1 L Iron TIBC Direct Bilirubin AST Troponin T C-Reactive Protein Total Protein Albumin 1.6 L LDL Cholesterol Direct HDL Cholesterol Vitamin B12 Folate TSH Urine WBC (Auto) Urine Creatinine Urine Total Protein [place] Screen [place] Titer Complement C3 Complement C4 02/09/19 02/09/19 02/10/19 13:35 18:54 05:13 WBC RBC Hgb Hct RDW Plt Count Seg Neuts % (Manual) Lymphocytes % (Manual) Seg Neutrophils # Man Lymphocytes # (Manual) PT INR APTT Thrombin Time POC ABG pH ABG pH 7.478 H POC ABG pCO2 POC ABG pO2 ABG pO2 ABG HCO3 ABG Base Excess ABG Hemoglobin 8.1 L Oxyhemoglobin 94.9 L Sodium Potassium Chloride Carbon Dioxide BUN Creatinine Glucose POC Glucose Lactic Acid Calcium Iron TIBC Direct Bilirubin AST Troponin T C-Reactive Protein Total Protein Albumin LDL Cholesterol Direct HDL Cholesterol Vitamin B12 Folate TSH Urine WBC (Auto) 10.0 H Urine Creatinine 92.9 H Urine Total Protein 116 H [place] Screen [place] Titer Complement C3 Complement C4 Chest x-ray: report reviewed, image reviewed
[2019-02-10] MEDS: INSULIN REGULAR, HUMAN 100 UNITS/1 ML SUB-Q SCH (18:52)
[2019-02-11] MEDS: dexAMETHasone 4 MG/ML VIAL IV SCH ×4 (00:07→22:18)
[2019-02-11] MEDS: INSULIN REGULAR, HUMAN 100 UNITS/1 ML SUB-Q SCH ×5 (00:08→23:22)
[2019-02-11] MEDS: IPRATROPIUM/ALBUTEROL SULFATE 3 ML AMPUL.NEB IH SCH ×4 (01:20→20:23)
[2019-02-11] MEDS: ACETAMINOPHEN 325 MG TAB PO PRN (04:30)
[2019-02-11 05:13] LABS: Hematocrit 29.4 % (30.3-42.9); Hemoglobin 9.4 gm/dl (10.1-14.3); Mean Corpuscular HGB Conc 32 % (30-34); Mean Corpuscular Volume 92 fl (79-97); Platelet Count 184 K/mm3 (140-440); Red Blood Count 3.18 M/mm3 (3.65-5.03); Red Cell Distribution Width 16.6 % (13.2-15.2)
[2019-02-11] MEDS: SODIUM CHLORIDE 0.45% 1000 ML 1,000 ML IV SCH ×2 (05:21→08:42)
[2019-02-11 05:29] LABS: ABG Base Excess 0.8 mmol/L (-2.0-3.0); ABG HCO3 24.8 mmol/L (20.0-26.0); ABG Methemoglobin 0.7 % (0.0-1.5); ABG Oxygen Saturation 94.2 % (95.0-99.0); ABG PCO2 37.4 mm Hg; ABG PH 7.44 pH Units (7.350-7.450); ABG PO2 69.4 mm Hg (80.0-90.0)
[2019-02-11 05:36] LABS: Albumin 2.1 g/dL (3.9-5); Calcium 8.3 mg/dL (8.4-10.2)
[2019-02-11] MEDS ORDERED: INSULIN GLARGINE 100 UNITS/ML SUB-Q ONE (06:00)
[2019-02-11 06:16] LABS: Anisocytosis Few; Band Neutrophils # (Manual) 0.1 K/mm3; Basophils % (Manual) 0 % (0.0-1.8); Eosinophils % (Manual) 0 % (0.0-4.3); Monocytes % (Manual) 0 % (0.0-7.3); Ovalocytes Few; Platelet Estimate Consistent w Auto; Total Cells Counted 100
[2019-02-11] MEDS: dilTIAZem/D5W 100 MG/100 ML BAG IV SCH ×3 (06:39→23:26)
--- NOTE | 2019-02-11 06:52 | Progress Note ---
Assessment and Plan 1.Severe sepsis with Strep pneumoniae bacteremia, pneumonia and meningitis: TTE showed some ?pulmonic valve vegetation. Awaiting TERRENCE. CSF shows WBC 1250, RBC 30, PMN 30%, Glucose 38, Protein 140. 2.Right neck severe lymphadenopathy: CT neck was without contrast, hence limited eval of vasculature. Neck US revealed extensive R neck lymphadenopathy, no abscess. HIV, RPR negative. Bartonella serologies pending. Today, patient's mother showed me paperwork from patient's PCP, patient was seen on 01/30/2019 at PCP office for R neck lump, was given medrol dose kevin and ultrasound was ordered. Once creatinine improves further, may need CT chest, abdomen pelvis with IV contrast to evaluate for other lymphadenopathy. 3.Bilateral pneumonia: sputum culture also growing Strep, likely Strep pneumoniae. 4.Thrombocytopenia likely due to sepsis or autoimmune phenomenon, hematology input appreciated, hiv-negative, fibrinogen level is not low, PT PTT is normal. Status post platelet transfusion, improved 5.Acute kidney injury Due to ATN Renal function improving IV fluids Nephrology input appreciated 6.History of lupus? families is unclear on this medical history, but know that she has some form of autoimmune disease Complement levels are reduced, CHESTER is pending. Started on steroids, should be tapered based on clinical presentation, still suspects but they may be an elements of WIND DEVELOPMENT DIRECTOR vasculitis 7.Acute metabolic encephalopathy Likely due to sepsis, obtain eeg, neurology appreciated MRI and MRA head pending. But at this time cannot be done as patient is on continuous fluids and on vent. Discuss with the forensics team director who states that it can be done on ventilator and continuous IV infusion, she will facilitate it. If MRI and able to be done, will consider transferring his patients to a higher level facility such as [place] 8.Acute respiratory failure on MV > 96 hours cont vent per pulmonology 9.Type 2 [place] - cardiology input appreciated, rx the underlying cause 10.Hypothyroidism TSH elevated, synthroid dose increased -repeat TFTs in 4-6 wks The high probability of a clinically significant, sudden or life threatening deterioration of the [CV, Neurology, renal] system(s) required my full and direct attention, intervention and personal management. The aggregate critical care time was [45] minutes. This time is in addition to time spent performing reported procedures but includes the following: [x] Data Review and interpretation [x] Patient assessment and monitoring of vital signs [x] Documentation [x] Medication orders and management Subjective Date of service: 02/09/19 Principal diagnosis: septic shock Interval history: 53 year old woman who was brought in by her family for unsteady gait, fatigue, and withdrawal behavior.Throughout that night she was having difficulty expressing herself. . She became more disoriented and less responsive prompting family to bring her to the emergency room. Intubated Same condition Objective - Constitutional Vitals: Vital Signs - 12hr 02/10/19 02/10/19 02/10/19 19:00 19:15 19:30 Temperature Pulse Rate 81 87 82 Pulse Rate [ Anterior Bilateral Throughout] Pulse Rate [ From Monitor] Respiratory 21 18 21 Rate Respiratory Rate [Anterior Bilateral Throughout] Blood Pressure 145/79 147/77 143/77 O2 Sat by Pulse 98 99 99 Oximetry 02/10/19 02/10/19 02/10/19 19:45 20:00 20:15 Temperature 100.7 F H Pulse Rate 98 H 91 H 106 H Pulse Rate [ Anterior Bilateral Throughout] Pulse Rate [ 102 H From Monitor] Respiratory 23 19 22 Rate Respiratory Rate [Anterior Bilateral Throughout] Blood Pressure 149/77 133/78 133/78 O2 Sat by Pulse 99 99 99 Oximetry 02/10/19 02/10/19 02/10/19 20:21 20:30 20:45 Temperature Pulse Rate 256 H 95 H Pulse Rate [ 108 H Anterior Bilateral Throughout] Pulse Rate [ From Monitor] Respiratory 14 26 H Rate Respiratory 24 Rate [Anterior Bilateral Throughout] Blood Pressure 161/90 159/86 O2 Sat by Pulse 100 99 Oximetry 02/10/19 02/10/19 02/10/19 21:00 21:15 21:30 Temperature Pulse Rate 97 H 97 H 101 H Pulse Rate [ Anterior Bilateral Throughout] Pulse Rate [ From Monitor] Respiratory 24 24 25 H Rate Respiratory Rate [Anterior Bilateral Throughout] Blood Pressure 151/82 153/81 140/77 O2 Sat by Pulse 99 98 98 Oximetry 02/10/19 02/10/19 02/10/19 21:45 22:00 22:01 Temperature Pulse Rate 100 H 105 H 106 H Pulse Rate [ Anterior Bilateral Throughout] Pulse Rate [ From Monitor] Respiratory 26 H 24 Rate Respiratory Rate [Anterior Bilateral Throughout] Blood Pressure 140/77 152/74 O2 Sat by Pulse 98 98 Oximetry 02/10/19 02/10/19 02/10/19 22:15 22:30 22:45 Temperature Pulse Rate 93 H 94 H 100 H Pulse Rate [ Anterior Bilateral Throughout] Pulse Rate [ From Monitor] Respiratory 22 24 22 Rate Respiratory Rate [Anterior Bilateral Throughout] Blood Pressure 139/82 151/85 150/80 O2 Sat by Pulse 98 98 98 Oximetry 02/10/19 02/10/19 02/10/19 22:53 23:00 23:07 Temperature Pulse Rate 101 H 95 H 104 H Pulse Rate [ Anterior Bilateral Throughout] Pulse Rate [ From Monitor] Respiratory 23 23 23 Rate Respiratory Rate [Anterior Bilateral Throughout] Blood Pressure 150/80 143/79 143/79 O2 Sat by Pulse 98 98 98 Oximetry 02/10/19 02/10/19 02/10/19 23:15 23:20 23:30 Temperature Pulse Rate 105 H 99 H 97 H Pulse Rate [ Anterior Bilateral Throughout] Pulse Rate [ From Monitor] Respiratory 25 H 25 H 23 Rate Respiratory Rate [Anterior Bilateral Throughout] Blood Pressure 157/78 157/78 154/90 O2 Sat by Pulse 98 99 99 Oximetry 02/10/19 02/10/19 02/11/19 23:37 23:45 00:00 Temperature 100.1 F H Pulse Rate 98 H 96 H Pulse Rate [ Anterior Bilateral Throughout] Pulse Rate [ 100 H From Monitor] Respiratory 23 24 Rate Respiratory Rate [Anterior Bilateral Throughout] Blood Pressure 151/87 157/90 O2 Sat by Pulse 98 99 Oximetry 02/11/19 02/11/19 02/11/19 00:15 00:30 00:45 Temperature Pulse Rate 98 H 92 H 99 H Pulse Rate [ Anterior Bilateral Throughout] Pulse Rate [ From Monitor] Respiratory 24 24 24 Rate Respiratory Rate [Anterior Bilateral Throughout] Blood Pressure 157/90 145/76 149/86 O2 Sat by Pulse 98 99 99 Oximetry 02/11/19 02/11/19 02/11/19 00:54 01:00 01:15 Temperature Pulse Rate 97 H 85 87 Pulse Rate [ Anterior Bilateral Throughout] Pulse Rate [ From Monitor] Respiratory 21 17 Rate Respiratory Rate [Anterior Bilateral Throughout] Blood Pressure 149/86 144/77 127/78 O2 Sat by Pulse 98 99 99 Oximetry 02/11/19 02/11/19 02/11/19 01:20 01:30 01:45 Temperature Pulse Rate 80 92 H Pulse Rate [ 85 Anterior Bilateral Throughout] Pulse Rate [ From Monitor] Respiratory 19 20 Rate Respiratory 21 Rate [Anterior Bilateral Throughout] Blood Pressure 141/72 134/76 O2 Sat by Pulse 100 100 Oximetry 02/11/19 02/11/19 02/11/19 02:00 02:15 02:30 Temperature Pulse Rate 106 H 92 H 80 Pulse Rate [ Anterior Bilateral Throughout] Pulse Rate [ From Monitor] Respiratory 21 21 19 Rate Respiratory Rate [Anterior Bilateral Throughout] Blood Pressure 146/84 144/76 135/71 O2 Sat by Pulse 100 100 100 Oximetry 02/11/19 02/11/19 02/11/19 02:45 03:00 03:15 Temperature Pulse Rate 83 96 H 102 H Pulse Rate [ Anterior Bilateral Throughout] Pulse Rate [ From Monitor] Respiratory 19 22 21 Rate Respiratory Rate [Anterior Bilateral Throughout] Blood Pressure 136/70 145/74 145/74 O2 Sat by Pulse 100 100 100 Oximetry 02/11/19 02/11/19 02/11/19 03:31 03:45 04:00 Temperature 100.6 F H Pulse Rate 112 H 99 H 94 H Pulse Rate [ Anterior Bilateral Throughout] Pulse Rate [ 97 H From Monitor] Respiratory 28 H 28 H 26 H Rate Respiratory Rate [Anterior Bilateral Throughout] Blood Pressure 156/82 136/75 141/76 O2 Sat by Pulse 97 96 97 Oximetry 02/11/19 02/11/19 02/11/19 04:15 04:31 04:45 Temperature Pulse Rate 105 H 104 H 116 H Pulse Rate [ Anterior Bilateral Throughout] Pulse Rate [ From Monitor] Respiratory 28 H 29 H 32 H Rate Respiratory Rate [Anterior Bilateral Throughout] Blood Pressure 139/79 150/94 150/94 O2 Sat by Pulse 96 97 96 Oximetry 02/11/19 02/11/19 02/11/19 05:01 05:15 05:31 Temperature Pulse Rate 104 H 100 H 103 H Pulse Rate [ Anterior Bilateral Throughout] Pulse Rate [ From Monitor] Respiratory 29 H 28 H 26 H Rate Respiratory Rate [Anterior Bilateral Throughout] Blood Pressure 133/70 146/71 146/68 O2 Sat by Pulse 97 98 98 Oximetry 02/11/19 02/11/19 02/11/19 05:32 05:45 06:00 Temperature Pulse Rate 103 H 99 H 91 H Pulse Rate [ Anterior Bilateral Throughout] Pulse Rate [ From Monitor] Respiratory 23 21 Rate Respiratory Rate [Anterior Bilateral Throughout] Blood Pressure 146/68 139/80 134/74 O2 Sat by Pulse 98 98 99 Oximetry 02/11/19 02/11/19 06:15 06:48 Temperature Pulse Rate 85 Pulse Rate [ Anterior Bilateral Throughout] Pulse Rate [ 97 H From Monitor] Respiratory 20 27 H Rate Respiratory Rate [Anterior Bilateral Throughout] Blood Pressure 139/73 O2 Sat by Pulse 99 97 Oximetry General appearance: Present: mild distress, well-nourished - EENT Eyes: PERRL, EOM intact ENT: hearing intact, clear oral mucosa Ears: bilateral: normal - Neck Neck: supple, normal ROM - Respiratory Respiratory effort: normal Respiratory: bilateral: CTA - Breasts Breasts: normal - Cardiovascular Heart rate: 78 Rhythm: regular Heart Sounds: Present: S1 & S2. Absent: gallop, rub Extremities: pulses intact, No edema, normal color, Full ROM - Gastrointestinal General gastrointestinal: Present: soft, non-tender, non-distended, normal bowel sounds - Genitourinary Female genitourinary: normal - Integumentary Integumentary: clear, warm, dry - Musculoskeletal Musculoskeletal: generalized weakness - Neurologic Neurologic: moves all extremities - Psychiatric Psychiatric: other (Intubated and sedated) - Labs CBC & Chem 7: 02/11/19 04:54 02/11/19 04:54 Labs: Abnormal lab results 02/09/19 02/10/19 02/10/19 Range/Units 13:35 18:14 23:24 WBC (4.5-11.0) K/mm3 RBC (3.65-5.03) M/mm3 Hgb (10.1-14.3) gm/dl Hct (30.3-42.9) % RDW (13.2-15.2) % Seg Neuts % (Manual) (40.0-70.0) % Lymphocytes % (Manual) (13.4-35.0) % Seg Neutrophils # Man (1.8-7.7) K/mm3 Lymphocytes # (Manual) (1.2-5.4) K/mm3 ABG pO2 (80.0-90.0) mm Hg ABG O2 Saturation (95.0-99.0) % ABG Hemoglobin (12.0-16.0) gm/dl Oxyhemoglobin (95.0-99.0) % Sodium (137-145) mmol/L Chloride (98-107) mmol/L BUN (7-17) mg/dL Creatinine (0.7-1.2) mg/dL Glucose (65-100) mg/dL POC Glucose 453 H 403 H (70-105) Calcium (8.4-10.2) mg/dL Alkaline Phosphatase (35-129) units/L Albumin (3.9-5) g/dL Urine WBC (Auto) 10.0 H (0.0-6.0) /HPF 02/11/19 02/11/19 02/11/19 Range/Units 04:10 04:54 04:54 WBC 12.5 H (4.5-11.0) K/mm3 RBC 3.18 L (3.65-5.03) M/mm3 Hgb 9.4 L (10.1-14.3) gm/dl Hct 29.4 L (30.3-42.9) % RDW 16.6 H (13.2-15.2) % Seg Neuts % (Manual) 94.0 H (40.0-70.0) % Lymphocytes % (Manual) 4.0 L (13.4-35.0) % Seg Neutrophils # Man 11.8 H (1.8-7.7) K/mm3 Lymphocytes # (Manual) 0.5 L (1.2-5.4) K/mm3 ABG pO2 69.4 L (80.0-90.0) mm Hg ABG O2 Saturation 94.2 L (95.0-99.0) % ABG Hemoglobin 11.0 L (12.0-16.0) gm/dl Oxyhemoglobin 92.1 L (95.0-99.0) % Sodium 151 H (137-145) mmol/L Chloride 112.6 H (98-107) mmol/L BUN 127 H (7-17) mg/dL Creatinine 1.8 H (0.7-1.2) mg/dL Glucose 396 H (65-100) mg/dL POC Glucose (70-105) Calcium 8.3 L (8.4-10.2) mg/dL Alkaline Phosphatase 132 H (35-129) units/L Albumin 2.1 L (3.9-5) g/dL Urine WBC (Auto) (0.0-6.0) /HPF 02/11/19 Range/Units 05:40 WBC (4.5-11.0) K/mm3 RBC (3.65-5.03) M/mm3 Hgb (10.1-14.3) gm/dl Hct (30.3-42.9) % RDW (13.2-15.2) % Seg Neuts % (Manual) (40.0-70.0) % Lymphocytes % (Manual) (13.4-35.0) % Seg Neutrophils # Man (1.8-7.7) K/mm3 Lymphocytes # (Manual) (1.2-5.4) K/mm3 ABG pO2 (80.0-90.0) mm Hg ABG O2 Saturation (95.0-99.0) % ABG Hemoglobin (12.0-16.0) gm/dl Oxyhemoglobin (95.0-99.0) % Sodium (137-145) mmol/L Chloride (98-107) mmol/L BUN (7-17) mg/dL Creatinine (0.7-1.2) mg/dL Glucose (65-100) mg/dL POC Glucose 410 H (70-105) Calcium (8.4-10.2) mg/dL Alkaline Phosphatase (35-129) units/L Albumin (3.9-5) g/dL Urine WBC (Auto) (0.0-6.0) /HPF
--- NOTE | 2019-02-11 06:57 | Progress Note ---
Assessment and Plan 1.Severe sepsis with Strep pneumoniae bacteremia, pneumonia and meningitis: TTE showed some ?pulmonic valve vegetation. Awaiting TERRENCE. CSF shows WBC 1250, RBC 30, PMN 30%, Glucose 38, Protein 140. 2.Right neck severe lymphadenopathy: CT neck was without contrast, hence limited eval of vasculature. Neck US revealed extensive R neck lymphadenopathy, no abscess. HIV, RPR negative. Bartonella serologies pending. Today, patient's mother showed me paperwork from patient's PCP, patient was seen on 01/30/2019 at PCP office for R neck lump, was given medrol dose kevin and ultrasound was ordered. Once creatinine improves further, may need CT chest, abdomen pelvis with IV contrast to evaluate for other lymphadenopathy. 3.Bilateral pneumonia: sputum culture also growing Strep, likely Strep pneumoniae. Cont Abx Pulmonary follow up apptreciated 4.Thrombocytopenia likely due to sepsis or autoimmune phenomenon, hematology input appreciated, hit-negative, fibrinogen level is not low, PT PTT is normal. Status post platelet transfusion, improved 5.Acute kidney injury Due to ATN Renal function improving IV fluids Nephrology input appreciated 6.History of lupus? families is unclear on this medical history, but know that she has some form of autoimmune disease Complement levels are reduced, CHESTER is pending. Started on steroids, should be tapered based on clinical presentation, still suspects but they may be an elements of SPECIAL TECHNICAL OPERATIONS OFFICER vasculitis 7.Acute metabolic encephalopathy Likely due to sepsis, obtain eeg, neurology appreciated MRI and MRA head pending. But at this time cannot be done as patient is on continuous fluids and on vent. Discuss with the community affairs director who states that it can be done on ventilator and continuous IV infusion, she will f acilitate it. If MRI and able to be done, will consider transferring his patients to a higher level facility such as [facility] 8.Acute respiratory failure on MV > 96 hours cont vent per pulmonology Off sedation 9.Type 2 [place] - cardiology input appreciated, rx the underlying cause 10.Hypothyroidism TSH elevated, synthroid dose increased -repeat TFTs in 4-6 wks 10.Anoxic Encephalopathy is a possibility Neuro consult requested The high probability of a clinically significant, sudden or life threatening deterioration of the [CV, Neurology, renal] system(s) required my full and direct attention, intervention and personal management. The aggregate critical care time was [45] minutes. This time is in addition to time spent performing reported procedures but includes the following: [x] Data Review and interpretation [x] Patient assessment and monitoring of vital signs [x] Documentation [x] Medication orders and management Subjective Date of service: 02/10/19 Principal diagnosis: septic shock Interval history: 53 year old woman who was brought in by her family for unsteady gait, fatigue, and withdrawal behavior.Throughout that night she was having difficulty expressing herself. . She became more disoriented and less responsive prompting family to bring her to the emergency room. Intubated Same condition Objective - Constitutional Vitals: Vital Signs - 12hr 02/10/19 02/10/19 02/10/19 19:00 19:15 19:30 Temperature Pulse Rate 81 87 82 Pulse Rate [ Anterior Bilateral Throughout] Pulse Rate [ From Monitor] Respiratory 21 18 21 Rate Respiratory Rate [Anterior Bilateral Throughout] Blood Pressure 145/79 147/77 143/77 O2 Sat by Pulse 98 99 99 Oximetry 02/10/19 02/10/19 02/10/19 19:45 20:00 20:15 Temperature 100.7 F H Pulse Rate 98 H 91 H 106 H Pulse Rate [ Anterior Bilateral Throughout] Pulse Rate [ 102 H From Monitor] Respiratory 23 19 22 Rate Respiratory Rate [Anterior Bilateral Throughout] Blood Pressure 149/77 133/78 133/78 O2 Sat by Pulse 99 99 99 Oximetry 02/10/19 02/10/19 02/10/19 20:21 20:30 20:45 Temperature Pulse Rate 256 H 95 H Pulse Rate [ 108 H Anterior Bilateral Throughout] Pulse Rate [ From Monitor] Respiratory 14 26 H Rate Respiratory 24 Rate [Anterior Bilateral Throughout] Blood Pressure 161/90 159/86 O2 Sat by Pulse 100 99 Oximetry 02/10/19 02/10/19 02/10/19 21:00 21:15 21:30 Temperature Pulse Rate 97 H 97 H 101 H Pulse Rate [ Anterior Bilateral Throughout] Pulse Rate [ From Monitor] Respiratory 24 24 25 H Rate Respiratory Rate [Anterior Bilateral Throughout] Blood Pressure 151/82 153/81 140/77 O2 Sat by Pulse 99 98 98 Oximetry 02/10/19 02/10/19 02/10/19 21:45 22:00 22:01 Temperature Pulse Rate 100 H 105 H 106 H Pulse Rate [ Anterior Bilateral Throughout] Pulse Rate [ From Monitor] Respiratory 26 H 24 Rate Respiratory Rate [Anterior Bilateral Throughout] Blood Pressure 140/77 152/74 O2 Sat by Pulse 98 98 Oximetry 02/10/19 02/10/19 02/10/19 22:15 22:30 22:45 Temperature Pulse Rate 93 H 94 H 100 H Pulse Rate [ Anterior Bilateral Throughout] Pulse Rate [ From Monitor] Respiratory 22 24 22 Rate Respiratory Rate [Anterior Bilateral Throughout] Blood Pressure 139/82 151/85 150/80 O2 Sat by Pulse 98 98 98 Oximetry 02/10/19 02/10/19 02/10/19 22:53 23:00 23:07 Temperature Pulse Rate 101 H 95 H 104 H Pulse Rate [ Anterior Bilateral Throughout] Pulse Rate [ From Monitor] Respiratory 23 23 23 Rate Respiratory Rate [Anterior Bilateral Throughout] Blood Pressure 150/80 143/79 143/79 O2 Sat by Pulse 98 98 98 Oximetry 02/10/19 02/10/19 02/10/19 23:15 23:20 23:30 Temperature Pulse Rate 105 H 99 H 97 H Pulse Rate [ Anterior Bilateral Throughout] Pulse Rate [ From Monitor] Respiratory 25 H 25 H 23 Rate Respiratory Rate [Anterior Bilateral Throughout] Blood Pressure 157/78 157/78 154/90 O2 Sat by Pulse 98 99 99 Oximetry 02/10/19 02/10/19 02/11/19 23:37 23:45 00:00 Temperature 100.1 F H Pulse Rate 98 H 96 H Pulse Rate [ Anterior Bilateral Throughout] Pulse Rate [ 100 H From Monitor] Respiratory 23 24 Rate Respiratory Rate [Anterior Bilateral Throughout] Blood Pressure 151/87 157/90 O2 Sat by Pulse 98 99 Oximetry 02/11/19 02/11/19 02/11/19 00:15 00:30 00:45 Temperature Pulse Rate 98 H 92 H 99 H Pulse Rate [ Anterior Bilateral Throughout] Pulse Rate [ From Monitor] Respiratory 24 24 24 Rate Respiratory Rate [Anterior Bilateral Throughout] Blood Pressure 157/90 145/76 149/86 O2 Sat by Pulse 98 99 99 Oximetry 02/11/19 02/11/19 02/11/19 00:54 01:00 01:15 Temperature Pulse Rate 97 H 85 87 Pulse Rate [ Anterior Bilateral Throughout] Pulse Rate [ From Monitor] Respiratory 21 17 Rate Respiratory Rate [Anterior Bilateral Throughout] Blood Pressure 149/86 144/77 127/78 O2 Sat by Pulse 98 99 99 Oximetry 02/11/19 02/11/19 02/11/19 01:20 01:30 01:45 Temperature Pulse Rate 80 92 H Pulse Rate [ 85 Anterior Bilateral Throughout] Pulse Rate [ From Monitor] Respiratory 19 20 Rate Respiratory 21 Rate [Anterior Bilateral Throughout] Blood Pressure 141/72 134/76 O2 Sat by Pulse 100 100 Oximetry 02/11/19 02/11/19 02/11/19 02:00 02:15 02:30 Temperature Pulse Rate 106 H 92 H 80 Pulse Rate [ Anterior Bilateral Throughout] Pulse Rate [ From Monitor] Respiratory 21 21 19 Rate Respiratory Rate [Anterior Bilateral Throughout] Blood Pressure 146/84 144/76 135/71 O2 Sat by Pulse 100 100 100 Oximetry 02/11/19 02/11/19 02/11/19 02:45 03:00 03:15 Temperature Pulse Rate 83 96 H 102 H Pulse Rate [ Anterior Bilateral Throughout] Pulse Rate [ From Monitor] Respiratory 19 22 21 Rate Respiratory Rate [Anterior Bilateral Throughout] Blood Pressure 136/70 145/74 145/74 O2 Sat by Pulse 100 100 100 Oximetry 02/11/19 02/11/19 02/11/19 03:31 03:45 04:00 Temperature 100.6 F H Pulse Rate 112 H 99 H 94 H Pulse Rate [ Anterior Bilateral Throughout] Pulse Rate [ 97 H From Monitor] Respiratory 28 H 28 H 26 H Rate Respiratory Rate [Anterior Bilateral Throughout] Blood Pressure 156/82 136/75 141/76 O2 Sat by Pulse 97 96 97 Oximetry 02/11/19 02/11/19 02/11/19 04:15 04:31 04:45 Temperature Pulse Rate 105 H 104 H 116 H Pulse Rate [ Anterior Bilateral Throughout] Pulse Rate [ From Monitor] Respiratory 28 H 29 H 32 H Rate Respiratory Rate [Anterior Bilateral Throughout] Blood Pressure 139/79 150/94 150/94 O2 Sat by Pulse 96 97 96 Oximetry 02/11/19 02/11/19 02/11/19 05:01 05:15 05:31 Temperature Pulse Rate 104 H 100 H 103 H Pulse Rate [ Anterior Bilateral Throughout] Pulse Rate [ From Monitor] Respiratory 29 H 28 H 26 H Rate Respiratory Rate [Anterior Bilateral Throughout] Blood Pressure 133/70 146/71 146/68 O2 Sat by Pulse 97 98 98 Oximetry 02/11/19 02/11/19 02/11/19 05:32 05:45 06:00 Temperature Pulse Rate 103 H 99 H 91 H Pulse Rate [ Anterior Bilateral Throughout] Pulse Rate [ From Monitor] Respiratory 23 21 Rate Respiratory Rate [Anterior Bilateral Throughout] Blood Pressure 146/68 139/80 134/74 O2 Sat by Pulse 98 98 99 Oximetry 02/11/19 02/11/19 06:15 06:48 Temperature Pulse Rate 85 Pulse Rate [ Anterior Bilateral Throughout] Pulse Rate [ 97 H From Monitor] Respiratory 20 27 H Rate Respiratory Rate [Anterior Bilateral Throughout] Blood Pressure 139/73 O2 Sat by Pulse 99 97 Oximetry General appearance: Present: mild distress, well-nourished - EENT Eyes: PERRL, EOM intact ENT: hearing intact, clear oral mucosa Ears: bilateral: normal - Neck Neck: supple, normal ROM - Respiratory Respiratory effort: normal Respiratory: bilateral: CTA - Breasts Breasts: normal - Cardiovascular Heart rate: 88 Rhythm: regular Heart Sounds: Present: S1 & S2. Absent: gallop, rub Extremities: pulses intact, No edema, normal color, Full ROM - Gastrointestinal General gastrointestinal: Present: soft, non-tender, non-distended, normal bowel sounds - Genitourinary Female genitourinary: normal - Integumentary Integumentary: clear, warm, dry - Musculoskeletal Musculoskeletal: generalized weakness - Neurologic Neurologic: moves all extremities - Psychiatric Psychiatric: other (Intubated ) - Labs CBC & Chem 7: 02/11/19 04:54 02/11/19 04:54 Labs: Abnormal lab results 02/09/19 02/10/19 02/10/19 Range/Units 13:35 18:14 23:24 WBC (4.5-11.0) K/mm3 RBC (3.65-5.03) M/mm3 Hgb (10.1-14.3) gm/dl Hct (30.3-42.9) % RDW (13.2-15.2) % Seg Neuts % (Manual) (40.0-70.0) % Lymphocytes % (Manual) (13.4-35.0) % Seg Neutrophils # Man (1.8-7.7) K/mm3 Lymphocytes # (Manual) (1.2-5.4) K/mm3 ABG pO2 (80.0-90.0) mm Hg ABG O2 Saturation (95.0-99.0) % ABG Hemoglobin (12.0-16.0) gm/dl Oxyhemoglobin (95.0-99.0) % Sodium (137-145) mmol/L Chloride (98-107) mmol/L BUN (7-17) mg/dL Creatinine (0.7-1.2) mg/dL Glucose (65-100) mg/dL POC Glucose 453 H 403 H (70-105) Calcium (8.4-10.2) mg/dL Alkaline Phosphatase (35-129) units/L Albumin (3.9-5) g/dL Urine WBC (Auto) 10.0 H (0.0-6.0) /HPF 02/11/19 02/11/19 02/11/19 Range/Units 04:10 04:54 04:54 WBC 12.5 H (4.5-11.0) K/mm3 RBC 3.18 L (3.65-5.03) M/mm3 Hgb 9.4 L (10.1-14.3) gm/dl Hct 29.4 L (30.3-42.9) % RDW 16.6 H (13.2-15.2) % Seg Neuts % (Manual) 94.0 H (40.0-70.0) % Lymphocytes % (Manual) 4.0 L (13.4-35.0) % Seg Neutrophils # Man 11.8 H (1.8-7.7) K/mm3 Lymphocytes # (Manual) 0.5 L (1.2-5.4) K/mm3 ABG pO2 69.4 L (80.0-90.0) mm Hg ABG O2 Saturation 94.2 L (95.0-99.0) % ABG Hemoglobin 11.0 L (12.0-16.0) gm/dl Oxyhemoglobin 92.1 L (95.0-99.0) % Sodium 151 H (137-145) mmol/L Chloride 112.6 H (98-107) mmol/L BUN 127 H (7-17) mg/dL Creatinine 1.8 H (0.7-1.2) mg/dL Glucose 396 H (65-100) mg/dL POC Glucose (70-105) Calcium 8.3 L (8.4-10.2) mg/dL Alkaline Phosphatase 132 H (35-129) units/L Albumin 2.1 L (3.9-5) g/dL Urine WBC (Auto) (0.0-6.0) /HPF 02/11/19 Range/Units 05:40 WBC (4.5-11.0) K/mm3 RBC (3.65-5.03) M/mm3 Hgb (10.1-14.3) gm/dl Hct (30.3-42.9) % RDW (13.2-15.2) % Seg Neuts % (Manual) (40.0-70.0) % Lymphocytes % (Manual) (13.4-35.0) % Seg Neutrophils # Man (1.8-7.7) K/mm3 Lymphocytes # (Manual) (1.2-5.4) K/mm3 ABG pO2 (80.0-90.0) mm Hg ABG O2 Saturation (95.0-99.0) % ABG Hemoglobin (12.0-16.0) gm/dl Oxyhemoglobin (95.0-99.0) % Sodium (137-145) mmol/L Chloride (98-107) mmol/L BUN (7-17) mg/dL Creatinine (0.7-1.2) mg/dL Glucose (65-100) mg/dL POC Glucose 410 H (70-105) Calcium (8.4-10.2) mg/dL Alkaline Phosphatase (35-129) units/L Albumin (3.9-5) g/dL Urine WBC (Auto) (0.0-6.0) /HPF
[2019-02-11] MEDS: LEVOTHYROXINE 125 MCG TAB PO SCH (09:55)
[2019-02-11] MEDS: MULTIVITAMINS 5 ML ORAL LIQUID PO SCH (09:55)
[2019-02-11] MEDS: FAMOTIDINE 20 MG TAB PO SCH (09:55)
[2019-02-11] MEDS: FOLIC ACID 1 MG TAB PO SCH (09:55)
[2019-02-11] MEDS: cefTRIAXone/NS 2 GM/100 ML 2 GM/100 ML BAG IV SCH ×2 (09:56→22:12)
--- NOTE | 2019-02-11 12:43 | Progress Note ---
Assessment and Plan The patient's cardiac status is stable. We have no further recommendations at this time, but will continue supportive care. The patient has been seen in conjunction with Dr. Jarvis, who agrees with the assessment and plan of care. - Patient Problems (1) Acute renal failure Current Visit: Yes Status: Acute (2) Acute respiratory failure Current Visit: Yes Status: Acute (3) Altered mental status Current Visit: Yes Status: Acute (4) Atrial fibrillation with RVR Current Visit: Yes Status: Resolved (5) Bacteremia Current Visit: Yes Status: Acute (6) Encephalopathy Current Visit: Yes Status: Acute (7) Thrombocytopenia Current Visit: Yes Status: Acute (8) PFO (patent foramen ovale) Current Visit: Yes Status: Suspected (9) Pulmonary valve vegetation Current Visit: Yes Status: Suspected Subjective Date of service: 02/11/19 Principal diagnosis: septic shock Interval history: The patient is lying in bed, intubated. She is not sedated and is unresponsive. Telemetry reviewed - SR with frequent PACs, rates in 90s. Objective Last Vital Signs Temp 98.0 F 02/11/19 12:00 Pulse 76 02/11/19 11:55 Resp 19 02/11/19 11:55 BP 139/69 02/11/19 11:55 Pulse Ox 99 02/11/19 11:55 - Physical Examination General: No Apparent Distress, Other (intubated, unresponsive. ) HEENT: Positive: Normocephaly Neck: Positive: neck supple Cardiac: Positive: irregularly irregular Lungs: Positive: Ventilated Respirations Neuro: Positive: Other (intubated, unresponsive) Abdomen: Positive: Unremarkable /Rectal: Other (deferred) Skin: Positive: Clear Musculoskeletal: Decreased Range of Motion Extremities: Present: normal - Labs and Meds Cardiac Enzymes 02/11/19 Range/Units 04:54 AST 28 (5-40) units/L CBC 02/11/19 Range/Units 04:54 WBC 12.5 H (4.5-11.0) K/mm3 RBC 3.18 L (3.65-5.03) M/mm3 Hgb 9.4 L (10.1-14.3) gm/dl Hct 29.4 L (30.3-42.9) % Plt Count 184 (140-440) K/mm3 Comprehensive Metabolic Panel 08/25/19 Range/Units 04:54 Sodium 151 H (137-145) mmol/L Potassium 3.6 (3.6-5.0) mmol/L Chloride 112.6 H (98-107) mmol/L Carbon Dioxide 24 (22-30) mmol/L BUN 127 H (7-17) mg/dL Creatinine 1.8 H (0.7-1.2) mg/dL Glucose 396 H (65-100) mg/dL Calcium 8.3 L (8.4-10.2) mg/dL AST 28 (5-40) units/L ALT 9 (7-56) units/L Alkaline Phosphatase 132 H (35-129) units/L Total Protein 7.4 (6.3-8.2) g/dL Albumin 2.1 L (3.9-5) g/dL - Imaging and Cardiology EKG: report reviewed, image reviewed Echo: report reviewed ( 02/02/2019 showed EF 55-60%, mild to mod LVH, atrial septal aneurysm, aortic valve heavily calcified, dense mitral annular calcification, mild MR, mild TR, mild DC, bubble study suggestive of PFO, ? pulmonic valve vegetation.) - Telemetry EKG Rhythm: Sinus Rhythm - EKG Supraventricular dysrhythmia: atrial premature complexe Ventricular dysrhythmias: ventricular premature com
--- NOTE | 2019-02-11 13:10 | Progress Note ---
Assessment and Plan Impression: * Oliguric acute kidney injury secondary to sepsis related ATN --SCr 1.22mg/dl in Sep 2017, * Sepsis * Azotemia: BUN increased out of proportion to creatinine; may be related to intravascular depletion, also consider GI bleed although blood counts stable. No recent steroids or catabolic agents * Cellulitis of neck, right --CT Neck: inflammation on the right side of the neck suggestive of cellulitis * Streptococcal bacteremia * Acute encephalopathy * Acute respiratory failure * Metabolic acidosis secondary to lactic acidosis * ?Autoimmune disease * Microscopic hematuria * Proteinuria * Thrombocytopenia Plan: * Renal function improved today, cr is 1.8 * added d5w as ivfs today, appears to be intravascular deplete * BUN noted, reduce decadron and add free h20 * may need zoning technician if no better by first of week * No contrast used in recent imaging studies, and no episodes of hypotension. * Continue conservative management for now per primary, maintain MAP>65 * Vent management per CCM * CHESTER pending; HIV, hepatitis, RPR, ANCA negative. Complements low--om decadron * Abx per ID * Reviewed all provider contracting consultant notes * Management of platelet abnormalities per hematology * Dose medications for renal function * Avoid potential nephrotoxic agents * Strict I/O Subjective Date of service: 02/11/19 Principal diagnosis: septic shock Interval history: resting in bed today Objective - Exam Narrative Exam: General appearance: well-developed, sick appearing, intubated EENT: ATNC, ETT in place Respiratory: coarse mechanical breath sounds noted Cardiology: regular, S1S2 Gastrointestinal: normal, no tenderness, no distended Integumentary: warm and dry Musculoskeletal: no edema - Vital Signs Vital signs: Vital Signs - 12hr 02/11/19 02/11/19 02/11/19 01:15 01:20 01:30 Temperature Pulse Rate 87 80 Pulse Rate [ 85 Anterior Bilateral Throughout] Pulse Rate [ From Monitor] Respiratory 17 19 Rate Respiratory 21 Rate [Anterior Bilateral Throughout] Blood Pressure 127/78 141/72 O2 Sat by Pulse 99 100 Oximetry 02/11/19 02/11/19 02/11/19 01:45 02:00 02:15 Temperature Pulse Rate 92 H 106 H 92 H Pulse Rate [ Anterior Bilateral Throughout] Pulse Rate [ From Monitor] Respiratory 20 21 21 Rate Respiratory Rate [Anterior Bilateral Throughout] Blood Pressure 134/76 146/84 144/76 O2 Sat by Pulse 100 100 100 Oximetry 02/11/19 02/11/19 02/11/19 02:30 02:45 03:00 Temperature Pulse Rate 80 83 96 H Pulse Rate [ Anterior Bilateral Throughout] Pulse Rate [ From Monitor] Respiratory 19 19 22 Rate Respiratory Rate [Anterior Bilateral Throughout] Blood Pressure 135/71 136/70 145/74 O2 Sat by Pulse 100 100 100 Oximetry 02/11/19 02/11/19 02/11/19 03:15 03:31 03:45 Temperature Pulse Rate 102 H 112 H 99 H Pulse Rate [ Anterior Bilateral Throughout] Pulse Rate [ From Monitor] Respiratory 21 28 H 28 H Rate Respiratory Rate [Anterior Bilateral Throughout] Blood Pressure 145/74 156/82 136/75 O2 Sat by Pulse 100 97 96 Oximetry 02/11/19 02/11/19 02/11/19 04:00 04:15 04:31 Temperature 100.6 F H Pulse Rate 94 H 105 H 104 H Pulse Rate [ Anterior Bilateral Throughout] Pulse Rate [ 97 H From Monitor] Respiratory 26 H 28 H 29 H Rate Respiratory Rate [Anterior Bilateral Throughout] Blood Pressure 141/76 139/79 150/94 O2 Sat by Pulse 97 96 97 Oximetry 02/11/19 02/11/19 02/11/19 04:45 05:01 05:15 Temperature Pulse Rate 116 H 104 H 100 H Pulse Rate [ Anterior Bilateral Throughout] Pulse Rate [ From Monitor] Respiratory 32 H 29 H 28 H Rate Respiratory Rate [Anterior Bilateral Throughout] Blood Pressure 150/94 133/70 146/71 O2 Sat by Pulse 96 97 98 Oximetry 02/11/19 02/11/19 02/11/19 05:31 05:32 05:45 Temperature Pulse Rate 103 H 103 H 99 H Pulse Rate [ Anterior Bilateral Throughout] Pulse Rate [ From Monitor] Respiratory 26 H 23 Rate Respiratory Rate [Anterior Bilateral Throughout] Blood Pressure 146/68 146/68 139/80 O2 Sat by Pulse 98 98 98 Oximetry 02/11/19 02/11/19 02/11/19 06:00 06:15 06:30 Temperature Pulse Rate 91 H 85 80 Pulse Rate [ Anterior Bilateral Throughout] Pulse Rate [ From Monitor] Respiratory 21 20 19 Rate Respiratory Rate [Anterior Bilateral Throughout] Blood Pressure 134/74 139/73 129/71 O2 Sat by Pulse 99 99 99 Oximetry 02/11/19 02/11/19 02/11/19 06:45 06:48 07:00 Temperature Pulse Rate 82 79 Pulse Rate [ Anterior Bilateral Throughout] Pulse Rate [ 97 H From Monitor] Respiratory 20 27 H 19 Rate Respiratory Rate [Anterior Bilateral Throughout] Blood Pressure 139/60 143/70 O2 Sat by Pulse 99 97 99 Oximetry 02/11/19 02/11/19 02/11/19 07:15 07:30 07:45 Temperature Pulse Rate 74 75 78 Pulse Rate [ Anterior Bilateral Throughout] Pulse Rate [ From Monitor] Respiratory 20 19 21 Rate Respiratory Rate [Anterior Bilateral Throughout] Blood Pressure 137/70 137/72 136/75 O2 Sat by Pulse 99 98 100 Oximetry 02/11/19 02/11/19 02/11/19 07:47 08:00 08:01 Temperature 98.8 F Pulse Rate 73 98 H Pulse Rate [ 89 Anterior Bilateral Throughout] Pulse Rate [ 98 H From Monitor] Respiratory 24 24 Rate Respiratory 21 Rate [Anterior Bilateral Throughout] Blood Pressure 136/75 136/75 O2 Sat by Pulse 99 98 98 Oximetry 02/11/19 02/11/19 02/11/19 08:15 08:30 08:45 Temperature Pulse Rate 89 80 92 H Pulse Rate [ Anterior Bilateral Throughout] Pulse Rate [ From Monitor] Respiratory 19 14 21 Rate Respiratory Rate [Anterior Bilateral Throughout] Blood Pressure 160/85 143/74 160/85 O2 Sat by Pulse 99 Oximetry 02/11/19 02/11/19 02/11/19 09:00 09:15 09:30 Temperature Pulse Rate 85 89 76 Pulse Rate [ Anterior Bilateral Throughout] Pulse Rate [ From Monitor] Respiratory 21 21 19 Rate Respiratory Rate [Anterior Bilateral Throughout] Blood Pressure 146/77 136/76 137/72 O2 Sat by Pulse 99 99 99 Oximetry 02/11/19 02/11/19 02/11/19 09:45 10:00 10:15 Temperature Pulse Rate 77 84 88 Pulse Rate [ Anterior Bilateral Throughout] Pulse Rate [ From Monitor] Respiratory 20 22 21 Rate Respiratory Rate [Anterior Bilateral Throughout] Blood Pressure 130/70 128/80 137/72 O2 Sat by Pulse 99 99 99 Oximetry 02/11/19 02/11/19 02/11/19 10:30 10:45 11:00 Temperature Pulse Rate 81 89 95 H Pulse Rate [ Anterior Bilateral Throughout] Pulse Rate [ From Monitor] Respiratory 19 20 21 Rate Respiratory Rate [Anterior Bilateral Throughout] Blood Pressure 130/77 137/75 141/73 O2 Sat by Pulse 99 99 99 Oximetry 02/11/19 02/11/19 02/11/19 11:15 11:48 11:55 Temperature Pulse Rate 81 95 H 76 Pulse Rate [ Anterior Bilateral Throughout] Pulse Rate [ From Monitor] Respiratory 20 19 Rate Respiratory Rate [Anterior Bilateral Throughout] Blood Pressure 130/74 136/71 139/69 O2 Sat by Pulse 98 98 99 Oximetry 02/11/19 12:00 Temperature 98.0 F Pulse Rate Pulse Rate [ Anterior Bilateral Throughout] Pulse Rate [ From Monitor] Respiratory Rate Respiratory Rate [Anterior Bilateral Throughout] Blood Pressure O2 Sat by Pulse Oximetry - Lab 02/11/19 04:54 02/11/19 04:54 Most recent lab results ABG pH 7.440 pH Units (7.350-7.450) 02/11/19 04:10 ABG pCO2 37.4 mm Hg 02/11/19 04:10 ABG pO2 69.4 mm Hg (80.0-90.0) L 02/11/19 04:10 ABG HCO3 24.8 mmol/L (20.0-26.0) 02/11/19 04:10 ABG O2 Saturation 94.2 % (95.0-99.0) L 02/11/19 04:10 Calcium 8.3 mg/dL (8.4-10.2) L 02/11/19 04:54 Magnesium 2.20 mg/dL (1.7-2.3) 02/07/19 01:07 92.9 mg/dL (0.1-20.0) H 02/09/19 18:54 116 mg/dL (5-11.8) H 02/09/19 18:54 Medications & Allergies - Medications Allergies/Adverse Reactions: Allergies No Known Allergies Allergy (Verified 08/18/18 09:04) Home Medications: Home Medications Medication Instructions Recorded Confirmed Last Taken Type Levothyroxine [Synthroid] 112 mcg PO QAM 02/01/19 02/01/19 Unknown History Lisinopril [Zestril TAB] 40 mg PO QDAY 02/01/19 02/01/19 Unknown History amLODIPine [Norvasc] 10 mg PO DAILY 02/01/19 02/01/19 Unknown History cloNIDine [Catapres] 1 mg PO QDAY 02/01/19 02/01/19 Unknown History Active Medications: Generic Name Dose Route Start Last Admin Trade Name Freq PRN Reason Stop Dose Admin Acetaminophen 650 mg 02/01/19 10:47 02/11/19 04:30 Tylenol PO 650 mg Q4H PRN Administration Pain MILD(1-3)/Fever >100.5/VALENZUELA Albuterol 2.5 mg 02/01/19 10:47 Proventil IH Q4HRT PRN Shortness Of Breath Albuterol/Ipratropium 1 ampul 02/01/19 12:00 02/11/19 13:01 Duoneb *Not For Prn Use* IH 1 ampul Q6HRT AMOL Administration Lipase/Protease/Amylase 1 each 02/05/19 11:04 Pancreaze 10,500 Unit FEEDTUBE PRN PRN For Clogged Feeding Tube Dexamethasone 4 mg 02/11/19 22:00 Decadron IV Q12HR AMOL Famotidine 20 mg 02/07/19 10:00 02/11/19 09:55 Pepcid PO 20 mg DAILY AMOL Administration Folic Acid 1 mg 02/06/19 10:00 02/11/19 09:55 Folvite PO 1 mg QDAY AMOL Administration Hydrophilic Ointment 1 applic 02/01/19 11:09 02/02/19 16:50 Vaseline Lip Therapy TP 1 applic Q2HR PRN Administration Dry Lips Ceftriaxone Sodium 2 gm in 100 mls @ 200 mls/hr 02/05/19 13:00 02/11/19 09:56 Rocephin/Ns 2 Gm/100 Ml IV 100 mls/hr Q12HR AMOL Administration Protocol Diltiazem HCl 100 mg in 100 mls @ 5 mls/hr 02/07/19 12:30 02/11/19 06:39 Cardizem/D5w 100mg/100ml IV 10 mg/hr TITR AMOL 10 mls/hr Administration Protocol 5 MG/HR Dextrose 1,000 mls @ 100 mls/hr 02/11/19 14:00 D5w IV DIRECT AMOL Insulin Human Regular 0 units 02/10/19 19:00 02/11/19 06:03 Humulin R SUB-Q 10 units Q6HR AMOL Administration Protocol Levothyroxine Sodium 125 mcg 02/07/19 10:00 02/11/19 09:55 Synthroid PO 125 mcg QAM AMOL Administration Multi-Ingred Cream/Lotion/Oil/Oint 1 applic 02/01/19 11:09 02/08/19 21:18 Artificial Tears Ophth Oint OU 1 applic Q4HR PRN Administration Dry Eye(s) Multivitamins 5 ml 02/06/19 10:00 02/11/19 09:55 Centrum Liq PO 5 ml QDAY AMOL Administration Ondansetron HCl 4 mg 02/01/19 10:47 Zofran IV Q8H PRN Nausea And Vomiting Simple Syrup 15 ml 02/05/19 11:04 Simple Syrup FEEDTUBE PRN PRN Hypoglycemia Simple Syrup 30 ml 02/05/19 11:04 Simple Syrup FEEDTUBE PRN PRN Hypoglycemia Sodium Bicarbonate 325 mg 02/05/19 11:04 Sodium Bicarbonate FEEDTUBE PRN PRN For Clogged Feeding Tube Sodium Chloride 10 ml 02/01/19 22:00 02/11/19 09:55 Sodium Chloride Flush Syringe 10 Ml IV 10 ml BID AMOL Administration Sodium Chloride 10 ml 02/01/19 10:47 Sodium Chloride Flush Syringe 10 Ml IV PRN PRN LINE FLUSH
[2019-02-11] MEDS: DEXTROSE 5% IN WATER 1,000 ML IV SCH ×2 (13:24→22:13)
--- NOTE | 2019-02-11 13:35 | Progress Note ---
Assessment and Plan Cultures: 02/01/2019 blood culture: Strep pneumoniae in 4/4 bottles 02/01/2019 urine culture: no growth 02/01/2019 tracheal aspirate: Strep species 02/02/2019 blood culture: no growth 02/05/2019 CSF culture: no growth 02/01/2019 C3: 36 (low) 02/01/2019 C4: 12 (low) CHESTER positive 1:320 HIV: non reactive RPR: non reactive Hepatitis panel: non reactive Bartonella serology: negative A/P: 53-year-old female with hypothyroidism, hypertension, ?autoimmune disease. Admitted with: 1) Severe sepsis with Strep pneumoniae bacteremia, pneumonia and meningitis: TTE showed some ?pulmonic valve vegetation. TERRENCE was negative for vegetations per cardiology. CSF shows WBC 1250, RBC 30, PMN 30%, Glucose 38, Protein 140. 2) Right neck severe lymphadenopathy: CT neck was without contrast, hence limited eval of vasculature. Neck US revealed extensive R neck lymphadenopathy, no abscess. HIV, RPR negative. Bartonella serologies negative. On 02/07/2019, patient's mother showed me paperwork from patient's PCP, patient was seen on 01/30/2019 at PCP office for R neck lump, was given medrol dose kevin and ultrasound was ordered. Once creatinine improves, may need CT chest, abdomen pelvis with IV contrast to evaluate for other lymphadenopathy, although the lymphadenopathy may be from lupus. 3) Bilateral pneumonia: sputum culture also growing Strep, likely Strep pneumoniae. 4) Acute renal failure: Nephrology following. Creatinine worse today. 5) ?Autoimmune disease: likely lupus. C3, C4 came back low. CHESTER positive 1:320. ANCA negative. 6) Thrombocytopenia: improved. Hematology following. Sepsis v/s autoimmune in etiology. 7) Acute encephalopathy: secondary to meningitis. MRI brain showed acute ischemic changes in the posterior distribution of the R MCA, right frontal and parietal deep white matter and left frontal deep white matter, additional foci of ischemic change in b/l cerebellar hemispheres. 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 CHESTER positive 1:320 suggestive of lupus. ds-DNA pending She is out of the window for steroids as adjunctive therapy for Pneumococcal meningitis, however, mental status remains poor and with underlying autoimmune disease and ?renal dysfunction, OK from ID standpoint for steroids. Was started on Dexamethasone 02/09/2019 Overall guarded prognosis Updated current clinical status and plan to mother. Dr. Mi taking over care tomorrow. Luis Lewis MD, FACP [facility] ([facility]) M: [phone] O: [phone] F: [phone] Subjective Date of service: 02/11/19 Principal diagnosis: septic shock Interval history: Low grade fever. Opens eyes, tracking, not following commands. No other ID issues per RN. Remains on the vent. Objective - Exam Narrative Exam: Physical Exam: Constitutional: opens eyes, tracking, not following commands, intubated Head, Ears, Nose: Normocephalic, atraumatic. External ears, nose normal Eyes: Conjunctivae/corneas clear. No icterus. No ptosis. Neck: R cervical lymphadenopathy, moderately improved Oral: intubated Cardiovascular: S1, S2 normal, irregular Respiratory: AE clear bilaterally, no wheeze GI: Soft, non-tender; bowel sounds normal. No peritoneal signs Musculoskeletal: No pedal edema, no cyanosis. Skin: No rash or abscess Hem/Lymphatic: No palpable cervical or supraclavicular nodes. No lymphangitis Psych: no agitation Neurological: opens eyes, tracking, not following commands, on the vent - Constitutional Vitals: Vital Signs Temp Pulse Resp BP Pulse Ox 98.0 F 88 20 139/69 99 02/11/19 12:00 02/11/19 13:01 02/11/19 13:01 02/11/19 11:55 02/11/19 11:55 Temperature -Last 24 Hours Temperature 98.0 F Temperature 98.8 F Temperature 100.6 F Temperature 100.5 F Temperature 100.1 F Temperature 100.7 F Temperature 97.4 F Temperature 101.4 F - Labs CBC & Chem 7: 02/11/19 04:54 02/11/19 04:54 Labs: Abnormal lab results 02/09/19 02/10/19 02/10/19 Range/Units 13:35 18:14 23:24 WBC (4.5-11.0) K/mm3 RBC (3.65-5.03) M/mm3 Hgb (10.1-14.3) gm/dl Hct (30.3-42.9) % RDW (13.2-15.2) % Seg Neuts % (Manual) (40.0-70.0) % Lymphocytes % (Manual) (13.4-35.0) % Seg Neutrophils # Man (1.8-7.7) K/mm3 Lymphocytes # (Manual) (1.2-5.4) K/mm3 ABG pO2 (80.0-90.0) mm Hg ABG O2 Saturation (95.0-99.0) % ABG Hemoglobin (12.0-16.0) gm/dl Oxyhemoglobin (95.0-99.0) % Sodium (137-145) mmol/L Chloride (98-107) mmol/L BUN (7-17) mg/dL Creatinine (0.7-1.2) mg/dL Glucose (65-100) mg/dL POC Glucose 453 H 403 H (70-105) Calcium (8.4-10.2) mg/dL Alkaline Phosphatase (35-129) units/L Albumin (3.9-5) g/dL Urine WBC (Auto) 10.0 H (0.0-6.0) /HPF 02/11/19 02/11/19 02/11/19 Range/Units 04:10 04:54 04:54 WBC 12.5 H (4.5-11.0) K/mm3 RBC 3.18 L (3.65-5.03) M/mm3 Hgb 9.4 L (10.1-14.3) gm/dl Hct 29.4 L (30.3-42.9) % RDW 16.6 H (13.2-15.2) % Seg Neuts % (Manual) 94.0 H (40.0-70.0) % Lymphocytes % (Manual) 4.0 L (13.4-35.0) % Seg Neutrophils # Man 11.8 H (1.8-7.7) K/mm3 Lymphocytes # (Manual) 0.5 L (1.2-5.4) K/mm3 ABG pO2 69.4 L (80.0-90.0) mm Hg ABG O2 Saturation 94.2 L (95.0-99.0) % ABG Hemoglobin 11.0 L (12.0-16.0) gm/dl Oxyhemoglobin 92.1 L (95.0-99.0) % Sodium 151 H (137-145) mmol/L Chloride 112.6 H (98-107) mmol/L BUN 127 H (7-17) mg/dL Creatinine 1.8 H (0.7-1.2) mg/dL Glucose 396 H (65-100) mg/dL POC Glucose (70-105) Calcium 8.3 L (8.4-10.2) mg/dL Alkaline Phosphatase 132 H (35-129) units/L Albumin 2.1 L (3.9-5) g/dL Urine WBC (Auto) (0.0-6.0) /HPF 02/11/19 02/11/19 Range/Units 05:40 11:30 WBC (4.5-11.0) K/mm3 RBC (3.65-5.03) M/mm3 Hgb (10.1-14.3) gm/dl Hct (30.3-42.9) % RDW (13.2-15.2) % Seg Neuts % (Manual) (40.0-70.0) % Lymphocytes % (Manual) (13.4-35.0) % Seg Neutrophils # Man (1.8-7.7) K/mm3 Lymphocytes # (Manual) (1.2-5.4) K/mm3 ABG pO2 (80.0-90.0) mm Hg ABG O2 Saturation (95.0-99.0) % ABG Hemoglobin (12.0-16.0) gm/dl Oxyhemoglobin (95.0-99.0) % Sodium (137-145) mmol/L Chloride (98-107) mmol/L BUN (7-17) mg/dL Creatinine (0.7-1.2) mg/dL Glucose (65-100) mg/dL POC Glucose 410 H 361 H (70-105) Calcium (8.4-10.2) mg/dL Alkaline Phosphatase (35-129) units/L Albumin (3.9-5) g/dL Urine WBC (Auto) (0.0-6.0) /HPF
--- NOTE | 2019-02-11 16:09 | Progress Note ---
Assessment and Plan Imp: 1. Neck cellulitis versus LAD 2. Bacteremia 3. Severe sepsis 4. DIANA 5. Hyperkalemia 6. Lactic acidosis 7. Acute respiratory failure, hypoxia 8. Metabolic encephalopathy 9. 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 ? SLE 12. Acute CVA Rec: 1. ABX per ID 2. D5W per renal; monitor sodium and renal function; renal on board 3. Off all sedation; f/u EEG; f/u neuro recs 4. No vegetations on TERRENCE 5. PSV daily; I believe her mental status has improved the past 48 hours, and if continued improvement a trial of extubation could be a possibility 6. TFs, Pepcid, SCDs 7. Fever noted; repeat blood, urine, and sputum cultures; ID following; possible fever could be central in light of strokes 8. Cont. Decadron for now -> decreased by renal due to rising BUN 9. Prognosis guarded Plan of care reviewed w/ mother, she understands/agrees CCt 31 minutes Subjective Date of service: 02/11/19 Principal diagnosis: septic shock Interval history: No events. Still with low-grade fevers. Eyes open and will track today. She will close eyes on command and appears to nod to questions. Will not move extremities for me. She is tolerating PSV 10/6 well. Active Medications Acetaminophen (Tylenol) 650 mg PO Q4H PRN PRN Reason: Pain MILD(1-3)/Fever >100.5/VALENZUELA Last Admin: 02/11/19 04:30 Dose: 650 mg Documented by: Albuterol (Proventil) 2.5 mg IH Q4HRT PRN PRN Reason: Shortness Of Breath Albuterol/Ipratropium (Duoneb *Not For Prn Use*) 1 ampul IH Q6HRT [facility] Last Admin: 02/11/19 13:01 Dose: 1 ampul Documented by: Lipase/Protease/Amylase (Carola Hammond 10,500 Unit) 1 each FEEDTUBE PRN PRN PRN Reason: For Clogged Feeding Tube Dexamethasone (Decadron) 4 mg IV Q12HR [facility] Famotidine (Pepcid) 20 mg PO DAILY [facility] Last Admin: 02/11/19 09:55 Dose: 20 mg Documented by: Folic Acid (Folvite) 1 mg PO QDAY [facility] Last Admin: 02/11/19 09:55 Dose: 1 mg Documented by: Hydrophilic Ointment (Vaseline Lip Therapy) 1 applic TP Q2HR PRN PRN Reason: Dry Lips Last Admin: 02/02/19 16:50 Dose: 1 applic Documented by: Ceftriaxone Sodium (Rocephin/Ns 2 Gm/100 Ml) 2 gm in 100 mls @ 200 mls/hr IV Q12HR AMOL; Protocol Last Admin: 02/11/19 09:56 Dose: 100 mls/hr Documented by: Diltiazem HCl (Cardizem/D5w 100mg/100ml) 100 mg in 100 mls @ 5 mls/hr IV TITR AMOL; Protocol Last Admin: 02/11/19 13:34 Dose: 10 mg/hr, 10 mls/hr Documented by: Dextrose (D5w) 1,000 mls @ 100 mls/hr IV DIRECT AMOL Last Admin: 02/11/19 13:24 Dose: 100 mls/hr Documented by: Insulin Human Regular (Humulin R) 0 units SUB-Q Q6HR AMOL; Protocol Last Admin: 02/11/19 13:23 Dose: 10 units Documented by: Levothyroxine Sodium (Synthroid) 125 mcg PO QAM [facility] Last Admin: 02/11/19 09:55 Dose: 125 mcg Documented by: Multi-Ingred Cream/Lotion/Oil/Oint (Artificial Tears Ophth Oint) 1 applic OU Q4HR PRN PRN Reason: Dry Eye(s) Last Admin: 02/08/19 21:18 Dose: 1 applic Documented by: Multivitamins (Centrum Liq) 5 ml PO QDAY [facility] Last Admin: 02/11/19 09:55 Dose: 5 ml Documented by: Ondansetron HCl (Zofran) 4 mg IV Q8H PRN PRN Reason: Nausea And Vomiting Simple Syrup (Simple Syrup) 15 ml FEEDTUBE PRN PRN PRN Reason: Hypoglycemia Simple Syrup (Simple Syrup) 30 ml FEEDTUBE PRN PRN PRN Reason: Hypoglycemia Sodium Bicarbonate (Sodium Bicarbonate) 325 mg FEEDTUBE PRN PRN PRN Reason: For Clogged Feeding Tube Sodium Chloride (Sodium Chloride Flush Syringe 10 Ml) 10 ml IV BID [facility] Last Admin: 02/11/19 09:55 Dose: 10 ml Documented by: Sodium Chloride (Sodium Chloride Flush Syringe 10 Ml) 10 ml IV PRN PRN PRN Reason: LINE FLUSH Objective Vital Signs - 12hr 02/11/19 02/11/19 02/11/19 04:15 04:31 04:45 Temperature Pulse Rate 105 H 104 H 116 H Pulse Rate [ Anterior Bilateral Throughout] Pulse Rate [ From Monitor] Respiratory 28 H 29 H 32 H Rate Respiratory Rate [Anterior Bilateral Throughout] Blood Pressure 139/79 150/94 150/94 O2 Sat by Pulse 96 97 96 Oximetry 02/11/19 02/11/19 02/11/19 05:01 05:15 05:31 Temperature Pulse Rate 104 H 100 H 103 H Pulse Rate [ Anterior Bilateral Throughout] Pulse Rate [ From Monitor] Respiratory 29 H 28 H 26 H Rate Respiratory Rate [Anterior Bilateral Throughout] Blood Pressure 133/70 146/71 146/68 O2 Sat by Pulse 97 98 98 Oximetry 02/11/19 02/11/19 02/11/19 05:32 05:45 06:00 Temperature Pulse Rate 103 H 99 H 91 H Pulse Rate [ Anterior Bilateral Throughout] Pulse Rate [ From Monitor] Respiratory 23 21 Rate Respiratory Rate [Anterior Bilateral Throughout] Blood Pressure 146/68 139/80 134/74 O2 Sat by Pulse 98 98 99 Oximetry 02/11/19 02/11/19 02/11/19 06:15 06:30 06:45 Temperature Pulse Rate 85 80 82 Pulse Rate [ Anterior Bilateral Throughout] Pulse Rate [ From Monitor] Respiratory 20 19 20 Rate Respiratory Rate [Anterior Bilateral Throughout] Blood Pressure 139/73 129/71 139/60 O2 Sat by Pulse 99 99 99 Oximetry 02/11/19 02/11/19 02/11/19 06:48 07:00 07:15 Temperature Pulse Rate 79 74 Pulse Rate [ Anterior Bilateral Throughout] Pulse Rate [ 97 H From Monitor] Respiratory 27 H 19 20 Rate Respiratory Rate [Anterior Bilateral Throughout] Blood Pressure 143/70 137/70 O2 Sat by Pulse 97 99 99 Oximetry 02/11/19 02/11/19 02/11/19 07:30 07:45 07:47 Temperature Pulse Rate 75 78 73 Pulse Rate [ 89 Anterior Bilateral Throughout] Pulse Rate [ From Monitor] Respiratory 19 21 Rate Respiratory 21 Rate [Anterior Bilateral Throughout] Blood Pressure 137/72 136/75 136/75 O2 Sat by Pulse 98 100 99 Oximetry 02/11/19 02/11/19 02/11/19 08:00 08:01 08:15 Temperature 98.8 F Pulse Rate 98 H 89 Pulse Rate [ Anterior Bilateral Throughout] Pulse Rate [ 98 H From Monitor] Respiratory 24 24 19 Rate Respiratory Rate [Anterior Bilateral Throughout] Blood Pressure 136/75 160/85 O2 Sat by Pulse 98 98 Oximetry 02/11/19 02/11/19 02/11/19 08:30 08:45 09:00 Temperature Pulse Rate 80 92 H 85 Pulse Rate [ Anterior Bilateral Throughout] Pulse Rate [ From Monitor] Respiratory 14 21 21 Rate Respiratory Rate [Anterior Bilateral Throughout] Blood Pressure 143/74 160/85 146/77 O2 Sat by Pulse 99 99 Oximetry 02/11/19 02/11/19 02/11/19 09:15 09:30 09:45 Temperature Pulse Rate 89 76 77 Pulse Rate [ Anterior Bilateral Throughout] Pulse Rate [ From Monitor] Respiratory 21 19 20 Rate Respiratory Rate [Anterior Bilateral Throughout] Blood Pressure 136/76 137/72 130/70 O2 Sat by Pulse 99 99 99 Oximetry 02/11/19 02/11/19 02/11/19 10:00 10:15 10:30 Temperature Pulse Rate 84 88 81 Pulse Rate [ Anterior Bilateral Throughout] Pulse Rate [ From Monitor] Respiratory 22 21 19 Rate Respiratory Rate [Anterior Bilateral Throughout] Blood Pressure 128/80 137/72 130/77 O2 Sat by Pulse 99 99 99 Oximetry 02/11/19 02/11/19 02/11/19 10:45 11:00 11:15 Temperature Pulse Rate 89 95 H 81 Pulse Rate [ Anterior Bilateral Throughout] Pulse Rate [ From Monitor] Respiratory 20 21 20 Rate Respiratory Rate [Anterior Bilateral Throughout] Blood Pressure 137/75 141/73 130/74 O2 Sat by Pulse 99 99 98 Oximetry 02/11/19 02/11/19 02/11/19 11:30 11:48 11:55 Temperature Pulse Rate 83 95 H 76 Pulse Rate [ Anterior Bilateral Throughout] Pulse Rate [ From Monitor] Respiratory 20 19 Rate Respiratory Rate [Anterior Bilateral Throughout] Blood Pressure 133/71 136/71 139/69 O2 Sat by Pulse 99 98 99 Oximetry 02/11/19 02/11/19 02/11/19 12:00 12:30 13:00 Temperature 98.0 F Pulse Rate 83 71 75 Pulse Rate [ Anterior Bilateral Throughout] Pulse Rate [ 83 From Monitor] Respiratory 21 20 21 Rate Respiratory Rate [Anterior Bilateral Throughout] Blood Pressure 139/69 128/68 132/74 O2 Sat by Pulse 99 100 100 Oximetry 02/11/19 02/11/19 02/11/19 13:01 13:30 14:00 Temperature Pulse Rate 89 85 Pulse Rate [ 88 Anterior Bilateral Throughout] Pulse Rate [ From Monitor] Respiratory 20 21 Rate Respiratory 20 Rate [Anterior Bilateral Throughout] Blood Pressure 141/77 133/74 O2 Sat by Pulse 100 99 Oximetry 02/11/19 02/11/19 02/11/19 14:30 15:01 15:19 Temperature Pulse Rate 85 89 89 Pulse Rate [ Anterior Bilateral Throughout] Pulse Rate [ From Monitor] Respiratory 21 22 Rate Respiratory Rate [Anterior Bilateral Throughout] Blood Pressure 136/71 138/63 142/58 O2 Sat by Pulse 100 99 98 Oximetry Constitutional: other (orally intubated on mechanical ventilator. Not on sedation, awake, critically ill) Eyes: non-icteric ENT: oropharynx moist Neck: supple Effort: normal Ascultation: Bilateral: other (coarse BS bilaterally) Cardiovascular: other (tachy, RR; no mrg) Gastrointestinal: normoactive bowel sounds, soft, non-tender, non-distended Integumentary: normal Extremities: no cyanosis, no edema, pink and warm Neurologic: other (eyes open, not following commands or moving extremities) Psychiatric: other (unable to assess) CBC and BMP: 02/11/19 04:54 02/11/19 04:54 ABG, PT/INR, D-dimer: ABG POC ABG pH 7.477 (7.35-7.45) H 02/07/19 10:58 ABG pH 7.440 pH Units (7.350-7.450) 02/11/19 04:10 POC ABG pCO2 34.8 (35-45) L 02/07/19 10:58 ABG pCO2 37.4 mm Hg 02/11/19 04:10 POC ABG pO2 118 (80-105) H 02/07/19 10:58 ABG pO2 69.4 mm Hg (80.0-90.0) L 02/11/19 04:10 POC ABG HCO3 25.8 (22-26 mml/L) 02/07/19 10:58 POC ABG Total CO2 27 (23-27mmol/L) 02/07/19 10:58 POC ABG O2 Sat 99 02/07/19 10:58 ABG O2 Saturation 94.2 % (95.0-99.0) L 02/11/19 04:10 PT/INR, D-dimer PT 16.3 Sec. (12.2-14.9) H 02/06/19 07:35 INR 1.35 (0.87-1.13) H 02/06/19 07:35 Abnormal lab findings: Abnormal Labs 02/01/19 02/01/19 02/01/19 07:16 07:16 07:16 WBC 17.7 H RBC Hgb Hct RDW 16.9 H Plt Count 62 L Seg Neuts % (Manual) 95.0 H Lymphocytes % (Manual) 0 L Seg Neutrophils # Man 16.8 H Lymphocytes # (Manual) 0.0 L PT 15.0 H INR 1.21 H APTT Thrombin Time 20.0 H POC ABG pH ABG pH POC ABG pCO2 POC ABG pO2 ABG pO2 ABG HCO3 ABG O2 Saturation ABG Base Excess ABG Hemoglobin Oxyhemoglobin Sodium 135 L Potassium Chloride 97.7 L Carbon Dioxide 19 L BUN 51 H Creatinine 4.5 H Glucose 112 H POC Glucose Lactic Acid Calcium Iron TIBC Direct Bilirubin AST Alkaline Phosphatase Troponin T 0.181 H* C-Reactive Protein Total Protein Albumin LDL Cholesterol Direct 34 L HDL Cholesterol 20 L Vitamin B12 Folate TSH Urine WBC (Auto) Urine Creatinine Urine Total Protein CHESTER Screen CHESTER Titer Complement C3 Complement C4 02/01/19 02/01/19 02/01/19 07:29 07:29 07:43 WBC RBC Hgb Hct RDW Plt Count Seg Neuts % (Manual) Lymphocytes % (Manual) Seg Neutrophils # Man Lymphocytes # (Manual) PT INR APTT Thrombin Time POC ABG pH ABG pH POC ABG pCO2 POC ABG pO2 ABG pO2 ABG HCO3 ABG O2 Saturation ABG Base Excess ABG Hemoglobin Oxyhemoglobin Sodium Potassium Chloride Carbon Dioxide BUN Creatinine Glucose POC Glucose Lactic Acid 4.80 H* Calcium Iron TIBC Direct Bilirubin 0.7 H AST 42 H Alkaline Phosphatase Troponin T C-Reactive Protein Total Protein 8.9 H Albumin 2.3 L LDL Cholesterol Direct HDL Cholesterol Vitamin B12 Folate TSH 8.470 H Urine WBC (Auto) Urine Creatinine Urine Total Protein [place] Screen [place] Titer Complement C3 Complement C4 02/01/19 02/01/19 02/01/19 09:45 11:32 13:50 WBC RBC Hgb Hct RDW Plt Count Seg Neuts % (Manual) Lymphocytes % (Manual) Seg Neutrophils # Man Lymphocytes # (Manual) PT INR APTT Thrombin Time POC ABG pH 7.289 L ABG pH POC ABG pCO2 POC ABG pO2 355 H ABG pO2 ABG HCO3 ABG O2 Saturation ABG Base Excess ABG Hemoglobin Oxyhemoglobin Sodium Potassium Chloride Carbon Dioxide BUN Creatinine Glucose POC Glucose Lactic Acid 4.10 H* Calcium Iron TIBC Direct Bilirubin AST Alkaline Phosphatase Troponin T C-Reactive Protein Total Protein Albumin LDL Cholesterol Direct HDL Cholesterol Vitamin B12 Folate TSH Urine WBC (Auto) 16.0 H Urine Creatinine Urine Total Protein [place] Screen [place] Titer Complement C3 Complement C4 02/01/19 02/01/19 02/01/19 15:15 16:20 16:51 WBC RBC Hgb Hct RDW Plt Count Seg Neuts % (Manual) Lymphocytes % (Manual) Seg Neutrophils # Man Lymphocytes # (Manual) PT INR APTT Thrombin Time POC ABG pH ABG pH POC ABG pCO2 POC ABG pO2 ABG pO2 ABG HCO3 ABG O2 Saturation ABG Base Excess ABG Hemoglobin Oxyhemoglobin Sodium Potassium Chloride Carbon Dioxide BUN Creatinine Glucose POC Glucose 115 H Lactic Acid 4.50 H* Calcium Iron TIBC Direct Bilirubin AST Alkaline Phosphatase Troponin T C-Reactive Protein Total Protein Albumin LDL Cholesterol Direct HDL Cholesterol Vitamin B12 Folate TSH Urine WBC (Auto) Urine Creatinine Urine Total Protein [place] Screen [place] Titer Complement C3 36 L Complement C4 02/01/19 02/01/19 02/01/19 16:51 17:03 17:04 WBC RBC Hgb Hct RDW Plt Count Seg Neuts % (Manual) Lymphocytes % (Manual) Seg Neutrophils # Man Lymphocytes # (Manual) PT INR APTT Thrombin Time POC ABG pH ABG pH POC ABG pCO2 POC ABG pO2 ABG pO2 ABG HCO3 ABG O2 Saturation ABG Base Excess ABG Hemoglobin Oxyhemoglobin Sodium Potassium Chloride Carbon Dioxide BUN Creatinine Glucose POC Glucose Lactic Acid 2.80 H* Calcium Iron TIBC Direct Bilirubin AST Alkaline Phosphatase Troponin T C-Reactive Protein 32.30 H Total Protein Albumin LDL Cholesterol Direct HDL Cholesterol Vitamin B12 Folate TSH Urine WBC (Auto) Urine Creatinine Urine Total Protein [place] Screen [place] Titer Complement C3 Complement C4 12 L 08/15/19 08/15/19 08/16/19 17:04 19:28 05:16 WBC RBC Hgb Hct RDW Plt Count Seg Neuts % (Manual) Lymphocytes % (Manual) Seg Neutrophils # Man Lymphocytes # (Manual) PT INR APTT Thrombin Time POC ABG pH ABG pH POC ABG pCO2 POC ABG pO2 148 H ABG pO2 ABG HCO3 ABG O2 Saturation ABG Base Excess ABG Hemoglobin Oxyhemoglobin Sodium Potassium Chloride 107.1 H Carbon Dioxide 18 L BUN 52 H Creatinine 3.1 H Glucose 120 H POC Glucose Lactic Acid Calcium 7.4 L Iron TIBC Direct Bilirubin AST Alkaline Phosphatase Troponin T C-Reactive Protein Total Protein Albumin LDL Cholesterol Direct HDL Cholesterol Vitamin B12 Folate TSH Urine WBC (Auto) Urine Creatinine Urine Total Protein [place] Screen Positive H CHE[place] Titer 1:320 H Complement C3 Complement C4 02/02/19 02/02/19 02/03/19 05:53 05:53 03:30 WBC 14.3 H RBC 5.16 H Hgb 14.9 H Hct 46.2 H D RDW 16.9 H 17.0 H Plt Count 43 L 18 L* Seg Neuts % (Manual) 93.0 H Lymphocytes % (Manual) 2.0 L Seg Neutrophils # Man 13.3 H Lymphocytes # (Manual) 0.3 L PT INR APTT Thrombin Time POC ABG pH ABG pH POC ABG pCO2 POC ABG pO2 ABG pO2 ABG HCO3 ABG O2 Saturation ABG Base Excess ABG Hemoglobin Oxyhemoglobin Sodium Potassium 5.1 H Chloride Carbon Dioxide 21 L BUN 57 H Creatinine 3.3 H Glucose 147 H POC Glucose Lactic Acid Calcium 7.5 L Iron TIBC Direct Bilirubin AST 51 H Alkaline Phosphatase Troponin T C-Reactive Protein Total Protein Albumin 1.6 L LDL Cholesterol Direct HDL Cholesterol Vitamin B12 Folate TSH Urine WBC (Auto) Urine Creatinine Urine Total Protein [place] Screen [place] Titer Complement C3 Complement C4 02/03/19 02/03/19 02/03/19 03:30 05:55 14:42 WBC RBC Hgb Hct RDW Plt Count Seg Neuts % (Manual) Lymphocytes % (Manual) Seg Neutrophils # Man Lymphocytes # (Manual) PT INR APTT Thrombin Time POC ABG pH ABG pH POC ABG pCO2 POC ABG pO2 117 H ABG pO2 ABG HCO3 ABG O2 Saturation ABG Base Excess ABG Hemoglobin Oxyhemoglobin Sodium Potassium Chloride Carbon Dioxide BUN 65 H Creatinine 2.7 H Glucose 117 H POC Glucose Lactic Acid Calcium 7.2 L Iron TIBC Direct Bilirubin AST Alkaline Phosphatase Troponin T C-Reactive Protein Total Protein Albumin LDL Cholesterol Direct HDL Cholesterol Vitamin B12 1468 H Folate TSH Urine WBC (Auto) Urine Creatinine Urine Total Protein [place] Screen [place] Titer Complement C3 Complement C4 02/03/19 02/03/19 02/03/19 14:42 14:42 14:42 WBC RBC 3.17 L Hgb 9.4 L D Hct 28.3 L D RDW 16.9 H Plt Count 18 L* Seg Neuts % (Manual) Lymphocytes % (Manual) Seg Neutrophils # Man Lymphocytes # (Manual) PT INR APTT Thrombin Time POC ABG pH ABG pH POC ABG pCO2 POC ABG pO2 ABG pO2 ABG HCO3 ABG O2 Saturation ABG Base Excess ABG Hemoglobin Oxyhemoglobin Sodium Potassium Chloride Carbon Dioxide BUN Creatinine Glucose POC Glucose Lactic Acid Calcium Iron 11 L TIBC 88 L Direct Bilirubin AST Alkaline Phosphatase Troponin T C-Reactive Protein Total Protein Albumin LDL Cholesterol Direct HDL Cholesterol Vitamin B12 Folate 5.18 L TSH Urine WBC (Auto) Urine Creatinine Urine Total Protein [place] Screen [place] Titer Complement C3 Complement C4 02/03/19 02/03/19 02/04/19 14:42 14:42 03:35 WBC RBC 3.22 L Hgb 9.5 L Hct 28.5 L RDW 16.4 H Plt Count 18 L* Seg Neuts % (Manual) Lymphocytes % (Manual) Seg Neutrophils # Man Lymphocytes # (Manual) PT 15.8 H INR 1.29 H APTT 38.2 H Thrombin Time POC ABG pH ABG pH 7.470 H POC ABG pCO2 POC ABG pO2 ABG pO2 ABG HCO3 28.4 H ABG O2 Saturation ABG Base Excess 4.5 H ABG Hemoglobin 10.1 L Oxyhemoglobin 94.7 L Sodium Potassium Chloride Carbon Dioxide BUN Creatinine Glucose POC Glucose Lactic Acid Calcium Iron TIBC Direct Bilirubin AST Alkaline Phosphatase Troponin T C-Reactive Protein Total Protein Albumin LDL Cholesterol Direct HDL Cholesterol Vitamin B12 Folate TSH Urine WBC (Auto) Urine Creatinine Urine Total Protein [place] Screen [place] Titer Complement C3 Complement C4 02/04/19 02/04/19 02/05/19 05:02 05:02 03:50 WBC RBC Hgb Hct RDW 16.5 H Plt Count 20 L Seg Neuts % (Manual) 94.0 H Lymphocytes % (Manual) 2.0 L Seg Neutrophils # Man 9.2 H Lymphocytes # (Manual) 0.2 L PT INR APTT Thrombin Time POC ABG pH ABG pH 7.485 H POC ABG pCO2 POC ABG pO2 ABG pO2 ABG HCO3 27.5 H ABG O2 Saturation ABG Base Excess 3.9 H ABG Hemoglobin 9.1 L Oxyhemoglobin 94.8 L Sodium Potassium Chloride Carbon Dioxide BUN 66 H Creatinine 1.7 H Glucose 127 H POC Glucose Lactic Acid Calcium 7.6 L Iron TIBC Direct Bilirubin AST Alkaline Phosphatase Troponin T C-Reactive Protein Total Protein Albumin LDL Cholesterol Direct HDL Cholesterol Vitamin B12 Folate TSH Urine WBC (Auto) Urine Creatinine Urine Total Protein [place] Screen [place] Titer Complement C3 Complement C4 02/05/19 02/05/19 02/05/19 13:02 14:36 20:03 WBC 11.7 H RBC 3.48 L 3.24 L Hgb 10.0 L 9.4 L Hct 29.2 L RDW 16.3 H 16.3 H Plt Count 50 L D 71 L Seg Neuts % (Manual) 95.0 H 95.0 H Lymphocytes % (Manual) 0 L 2.0 L Seg Neutrophils # González 11.1 H 10.2 H Lymphocytes # (Manual) 0.0 L 0.2 L PT INR APTT Thrombin Time POC ABG pH ABG pH POC ABG pCO2 POC ABG pO2 ABG pO2 ABG HCO3 ABG O2 Saturation ABG Base Excess ABG Hemoglobin Oxyhemoglobin Sodium Potassium Chloride Carbon Dioxide BUN 67 H Creatinine 1.5 H Glucose POC Glucose Lactic Acid Calcium 7.7 L Iron TIBC Direct Bilirubin AST Alkaline Phosphatase Troponin T C-Reactive Protein Total Protein Albumin LDL Cholesterol Direct HDL Cholesterol Vitamin B12 Folate TSH Urine WBC (Auto) Urine Creatinine Urine Total Protein [place] Screen [place] Titer Complement C3 Complement C4 02/06/19 02/06/19 02/06/19 05:39 07:35 18:34 WBC RBC Hgb Hct RDW Plt Count Seg Neuts % (Manual) Lymphocytes % (Manual) Seg Neutrophils # Man Lymphocytes # (Manual) PT 16.3 H INR 1.35 H APTT Thrombin Time POC ABG pH ABG pH POC ABG pCO2 POC ABG pO2 ABG pO2 ABG HCO3 ABG O2 Saturation ABG Base Excess ABG Hemoglobin Oxyhemoglobin Sodium Potassium Chloride Carbon Dioxide BUN Creatinine Glucose POC Glucose 107 H 121 H Lactic Acid Calcium Iron TIBC Direct Bilirubin AST Alkaline Phosphatase Troponin T C-Reactive Protein Total Protein Albumin LDL Cholesterol Direct HDL Cholesterol Vitamin B12 Folate TSH Urine WBC (Auto) Urine Creatinine Urine Total Protein [place] Screen [place] Titer Complement C3 Complement C4 02/06/19 02/07/19 02/07/19 Unknown 01:07 04:15 WBC RBC Hgb Hct RDW Plt Count Seg Neuts % (Manual) Lymphocytes % (Manual) Seg Neutrophils # Man Lymphocytes # (Manual) PT INR APTT Thrombin Time POC ABG pH ABG pH POC ABG pCO2 POC ABG pO2 ABG pO2 ABG HCO3 ABG O2 Saturation ABG Base Excess ABG Hemoglobin 5.0 L Oxyhemoglobin 94.9 L 94.8 L Sodium 146 H Potassium Chloride Carbon Dioxide BUN 85 H Creatinine 1.8 H Glucose 163 H POC Glucose Lactic Acid Calcium 8.3 L Iron TIBC Direct Bilirubin AST Alkaline Phosphatase Troponin T C-Reactive Protein Total Protein Albumin LDL Cholesterol Direct HDL Cholesterol Vitamin B12 Folate TSH Urine WBC (Auto) Urine Creatinine Urine Total Protein [place] Screen [place] Titer Complement C3 Complement C4 02/07/19 02/07/19 02/08/19 08:22 10:58 04:40 WBC RBC Hgb Hct RDW 16.0 H Plt Count 84 L Seg Neuts % (Manual) 97.0 H Lymphocytes % (Manual) 0 L Seg Neutrophils # Man 9.5 H Lymphocytes # (Manual) 0.0 L PT INR APTT Thrombin Time POC ABG pH 7.477 H ABG pH 7.467 H POC ABG pCO2 34.8 L POC ABG pO2 118 H ABG pO2 ABG HCO3 ABG O2 Saturation ABG Base Excess ABG Hemoglobin 8.4 L Oxyhemoglobin Sodium Potassium Chloride Carbon Dioxide BUN Creatinine Glucose POC Glucose Lactic Acid Calcium Iron TIBC Direct Bilirubin AST Alkaline Phosphatase Troponin T C-Reactive Protein Total Protein Albumin LDL Cholesterol Direct HDL Cholesterol Vitamin B12 Folate TSH Urine WBC (Auto) Urine Creatinine Urine Total Protein [place] Screen [place] Titer Complement C3 Complement C4 02/09/19 02/09/19 02/09/19 03:17 03:17 04:35 WBC 14.9 H RBC 3.32 L Hgb 9.6 L Hct RDW 15.9 H Plt Count 113 L Seg Neuts % (Manual) 96.0 H Lymphocytes % (Manual) 1.0 L Seg Neutrophils # Man 14.3 H Lymphocytes # (Manual) 0.1 L PT INR APTT Thrombin Time POC ABG pH ABG pH 7.478 H POC ABG pCO2 POC ABG pO2 ABG pO2 94.5 H ABG HCO3 ABG O2 Saturation ABG Base Excess ABG Hemoglobin 6.1 L Oxyhemoglobin Sodium 147 H Potassium Chloride 110.4 H Carbon Dioxide BUN 114 H Creatinine 2.2 H Glucose 270 H POC Glucose Lactic Acid Calcium 8.1 L Iron TIBC Direct Bilirubin AST Alkaline Phosphatase Troponin T C-Reactive Protein Total Protein Albumin 1.6 L LDL Cholesterol Direct HDL Cholesterol Vitamin B12 Folate TSH Urine WBC (Auto) Urine Creatinine Urine Total Protein [place] Screen [place] Titer Complement C3 Complement C4 02/09/19 02/09/19 02/10/19 13:35 18:54 05:13 WBC RBC Hgb Hct RDW Plt Count Seg Neuts % (Manual) Lymphocytes % (Manual) Seg Neutrophils # Man Lymphocytes # (Manual) PT INR APTT Thrombin Time POC ABG pH ABG pH 7.478 H POC ABG pCO2 POC ABG pO2 ABG pO2 ABG HCO3 ABG O2 Saturation ABG Base Excess ABG Hemoglobin 8.1 L Oxyhemoglobin 94.9 L Sodium Potassium Chloride Carbon Dioxide BUN Creatinine Glucose POC Glucose Lactic Acid Calcium Iron TIBC Direct Bilirubin AST Alkaline Phosphatase Troponin T C-Reactive Protein Total Protein Albumin LDL Cholesterol Direct HDL Cholesterol Vitamin B12 Folate TSH Urine WBC (Auto) 10.0 H Urine Creatinine 92.9 H Urine Total Protein 116 H [place] Screen [place] Titer Complement C3 Complement C4 02/10/19 02/10/19 02/11/19 18:14 23:24 04:10 WBC RBC Hgb Hct RDW Plt Count Seg Neuts % (Manual) Lymphocytes % (Manual) Seg Neutrophils # Man Lymphocytes # (Manual) PT INR APTT Thrombin Time POC ABG pH ABG pH POC ABG pCO2 POC ABG pO2 ABG pO2 69.4 L ABG HCO3 ABG O2 Saturation 94.2 L ABG Base Excess ABG Hemoglobin 11.0 L Oxyhemoglobin 92.1 L Sodium Potassium Chloride Carbon Dioxide BUN Creatinine Glucose POC Glucose 453 H 403 H Lactic Acid Calcium Iron TIBC Direct Bilirubin AST Alkaline Phosphatase Troponin T C-Reactive Protein Total Protein Albumin LDL Cholesterol Direct HDL Cholesterol Vitamin B12 Folate TSH Urine WBC (Auto) Urine Creatinine Urine Total Protein [place] Screen [place] Titer Complement C3 Complement C4 02/11/19 02/11/19 02/11/19 04:54 04:54 05:40 WBC 12.5 H RBC 3.18 L Hgb 9.4 L Hct 29.4 L RDW 16.6 H Plt Count Seg Neuts % (Manual) 94.0 H Lymphocytes % (Manual) 4.0 L Seg Neutrophils # Man 11.8 H Lymphocytes # (Manual) 0.5 L PT INR APTT Thrombin Time POC ABG pH ABG pH POC ABG pCO2 POC ABG pO2 ABG pO2 ABG HCO3 ABG O2 Saturation ABG Base Excess ABG Hemoglobin Oxyhemoglobin Sodium 151 H Potassium Chloride 112.6 H Carbon Dioxide BUN 127 H Creatinine 1.8 H Glucose 396 H POC Glucose 410 H Lactic Acid Calcium 8.3 L Iron TIBC Direct Bilirubin AST Alkaline Phosphatase 132 H Troponin T C-Reactive Protein Total Protein Albumin 2.1 L LDL Cholesterol Direct HDL Cholesterol Vitamin B12 Folate TSH Urine WBC (Auto) Urine Creatinine Urine Total Protein [place] Screen [place] Titer Complement C3 Complement C4 02/11/19 11:30 WBC RBC Hgb Hct RDW Plt Count Seg Neuts % (Manual) Lymphocytes % (Manual) Seg Neutrophils # Man Lymphocytes # (Manual) PT INR APTT Thrombin Time POC ABG pH ABG pH POC ABG pCO2 POC ABG pO2 ABG pO2 ABG HCO3 ABG O2 Saturation ABG Base Excess ABG Hemoglobin Oxyhemoglobin Sodium Potassium Chloride Carbon Dioxide BUN Creatinine Glucose POC Glucose 361 H Lactic Acid Calcium Iron TIBC Direct Bilirubin AST Alkaline Phosphatase Troponin T C-Reactive Protein Total Protein Albumin LDL Cholesterol Direct HDL Cholesterol Vitamin B12 Folate TSH Urine WBC (Auto) Urine Creatinine Urine Total Protein CHESTER Screen CHESTER Titer Complement C3 Complement C4 Chest x-ray: report reviewed, image reviewed
[2019-02-11] MEDS: INSULIN GLARGINE 100 UNITS/ML SUB-Q SCH ×2 (18:00→23:21)
--- NOTE | 2019-02-11 22:13 | Progress Note ---
Assessment and Plan Assessment and plan: 53 year old woman who was brought in by her family for unsteady gait, fatigue, and withdrawn behavior. I finally noticed difficult to it fine motor skills throughout that night she was having difficulty expressing herself. she was at a restaurant family I will continue to point to the menu. She became more disoriented and less responsive prompting family to bring her to the emergency room Sepsis Strep pneumoniae bacteremia Right neck cellulitis vs neck LAD PNA meningitis TERRENCE neg for vegatations cont abx per ID Hyperglycemia cont ssi, amd lantus Thrombocytopenia likely due to sepsis or autoimmune phenomenon, hematology input appreciated, hi v-negative, fibrinogen level is not low, PT PTT is normal. 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 families is unclear on this medical history, but know that she has some form of autoimmune disease Compliments are reduced, CHESTER is positive, anti ds dna pending, highly suspect lupus cont steroids Acute metabolic encephalopathy Likely due to sepsis, eeg neg for seizure, neuro input appreciated Acute respiratory failure on MV > 96 hours cont vent per pulmonology Type 2 CO - cardiology input appreciated, rx the underlying cause Hypothyroidism TSH elevated, synthroid dose increased -repeat TFTs in 4-6 wks Prognosis is guarded The high probability of a clinically significant, sudden or life threatening deterioration of the [CV, Neurology, renal] system(s) required my full and direct attention, intervention and personal management. The aggregate critical care time was [45] minutes. This time is in addition to time spent performing reported procedures but includes the following: [x] Data Review and interpretation [x] Patient assessment and monitoring of vital signs [x] Documentation [x] Medication orders and management History Interval history: patient remains non responsive despite not being on sedation -having fevers -no seizures or vomiting Hospitalist Physical - Constitutional Vitals: Temp Pulse Resp BP Pulse Ox 98.8 F 113 H 25 H 140/85 98 02/11/19 20:00 02/11/19 21:00 02/11/19 21:00 02/11/19 21:00 02/11/19 21:00 General appearance: Present: other (appears ill) - EENT Eyes: Present: PERRL ENT: dentition normal - Neck Neck: Present: supple, cervical LAD - Respiratory Respiratory effort: normal Respiratory: bilateral: diminished, rales - Cardiovascular Rhythm: regular Heart Sounds: Present: S1 & S2 - Extremities Extremities: No edema Peripheral Pulses: within normal limits - Abdominal General gastrointestinal: soft, non-distended - Integumentary Integumentary: Absent: erythema, jaundice - Psychiatric Psychiatric: other (intubated/on vent) - Neurologic Neurologic: no moves all extremities, other (non responsive) Results - Labs CBC & Chem 7: 02/13/19 03:41 02/13/19 03:41 Labs: Laboratory Last Values WBC 12.5 K/mm3 (4.5-11.0) H 02/11/19 04:54 RBC 3.18 M/mm3 (3.65-5.03) L 02/11/19 04:54 Hgb 9.4 gm/dl (10.1-14.3) L 02/11/19 04:54 Hct 29.4 % (30.3-42.9) L 02/11/19 04:54 MCV 92 fl (79-97) 02/11/19 04:54 MCH 30 pg (28-32) 02/11/19 04:54 MCHC 32 % (30-34) 02/11/19 04:54 RDW 16.6 % (13.2-15.2) H 02/11/19 04:54 Plt Count 184 K/mm3 (140-440) 02/11/19 04:54 Lymph % (Auto) Compounding Scaler 02/05/19 13:02 Caldwell % (Auto) Compounding Scaler 02/05/19 13:02 Eos % (Auto) Compounding Scaler 02/05/19 13:02 Baso % (Auto) Compounding Scaler 02/05/19 13:02 Lymph # Compounding Scaler 02/05/19 13:02 Caldwell # Compounding Scaler 02/05/19 13:02 Eos # Compounding Scaler 02/05/19 13:02 Baso # Compounding Scaler 02/05/19 13:02 Add Manual Diff Complete 02/11/19 04:54 Total Counted 100 02/11/19 04:54 Seg Neutrophils % Compounding Scaler 02/11/19 04:54 Seg Neuts % (Manual) 94.0 % (40.0-70.0) H 02/11/19 04:54 1.0 % 02/11/19 04:54 4.0 % (13.4-35.0) L 02/11/19 04:54 Reactive Lymphs % (Man) 0 % 02/11/19 04:54 0 % (0.0-7.3) 02/11/19 04:54 0 % (0.0-4.3) 02/11/19 04:54 0 % (0.0-1.8) 02/11/19 04:54 1.0 % 02/11/19 04:54 0 % 02/11/19 04:54 0 % 02/11/19 04:54 0 % 02/11/19 04:54 Nucleated RBC % Not Reportable 02/11/19 04:54 Seg Neutrophils # Compounding Scaler 02/05/19 13:02 Seg Neutrophils # Man 11.8 K/mm3 (1.8-7.7) H 02/11/19 04:54 Band Neutrophils # 0.1 K/mm3 02/11/19 04:54 0.5 K/mm3 (1.2-5.4) L 02/11/19 04:54 Abs React Lymphs (Man) 0.0 K/mm3 02/11/19 04:54 0.0 K/mm3 (0.0-0.8) 02/11/19 04:54 0.0 K/mm3 (0.0-0.4) 02/11/19 04:54 0.0 K/mm3 (0.0-0.1) 02/11/19 04:54 0.1 K/mm3 02/11/19 04:54 0.0 K/mm3 02/11/19 04:54 0.0 K/mm3 02/11/19 04:54 Blast Cells # 0.0 K/mm3 02/11/19 04:54 WBC Morphology Not Reportable 02/11/19 04:54 Hypersegmented Neuts Not Reportable 02/11/19 04:54 Hyposegmented Neuts Not Reportable 02/11/19 04:54 Hypogranular Neuts Not Reportable 02/11/19 04:54 Cancelled 02/01/19 07:16 Not Reportable 02/11/19 04:54 Not Reportable 02/11/19 04:54 Not Reportable 02/11/19 04:54 Not Reportable 02/11/19 04:54 Not Reportable 02/11/19 04:54 Not Reportable 02/11/19 04:54 Consistent w auto 02/11/19 04:54 Not Reportable 02/11/19 04:54 Plt Clumps, EDTA Not Reportable 02/11/19 04:54 Not Reportable 02/11/19 04:54 Not Reportable 02/11/19 04:54 Not Reportable 02/11/19 04:54 Plt Morphology Comment Not Reportable 02/11/19 04:54 RBC Morphology Not Reportable 02/11/19 04:54 Dimorphic RBCs Not Reportable 02/11/19 04:54 Not Reportable 02/11/19 04:54 Not Reportable 02/11/19 04:54 Not Reportable 02/11/19 04:54 Cancelled 02/01/19 07:16 Few 02/11/19 04:54 Not Reportable 02/11/19 04:54 Not Reportable 02/11/19 04:54 Not Reportable 02/11/19 04:54 Not Reportable 02/11/19 04:54 Not Reportable 02/11/19 04:54 Not Reportable 02/11/19 04:54 Not Reportable 02/11/19 04:54 Few 02/11/19 04:54 Cancelled 02/01/19 07:16 Not Reportable 02/11/19 04:54 Not Reportable 02/11/19 04:54 Not Reportable 02/11/19 04:54 Not Reportable 02/11/19 04:54 Not Reportable 02/11/19 04:54 Not Reportable 02/11/19 04:54 Not Reportable 02/11/19 04:54 Acanthocytes (Spur) Not Reportable 02/11/19 04:54 Rouleaux Not Reportable 02/11/19 04:54 Not Reportable 02/11/19 04:54 Not Reportable 02/11/19 04:54 Not Reportable 02/11/19 04:54 ESR 76 mm/Hr (0-20) 02/01/19 16:51 Not Reportable 02/11/19 04:54 Hem Pathologist Commnt No 02/11/19 04:54 PT 16.3 Sec. (12.2-14.9) H 02/06/19 07:35 INR 1.35 (0.87-1.13) H 02/06/19 07:35 APTT 33.1 Sec. (24.2-36.6) 02/06/19 07:35 20.0 Sec. (15.1-19.6) H 02/01/19 07:16 479 mg/dl (211-480) 02/03/19 14:42 POC ABG pH 7.477 (7.35-7.45) H 02/07/19 10:58 ABG pH 7.440 pH Units (7.350-7.450) 02/11/19 04:10 POC ABG pCO2 34.8 (35-45) L 02/07/19 10:58 ABG pCO2 37.4 mm Hg 02/11/19 04:10 POC ABG pO2 118 (80-105) H 02/07/19 10:58 ABG pO2 69.4 mm Hg (80.0-90.0) L 02/11/19 04:10 POC ABG HCO3 25.8 (22-26 mml/L) 02/07/19 10:58 ABG HCO3 24.8 mmol/L (20.0-26.0) 02/11/19 04:10 POC ABG Total CO2 27 (23-27mmol/L) 02/07/19 10:58 POC ABG O2 Sat 99 02/07/19 10:58 ABG O2 Saturation 94.2 % (95.0-99.0) L 02/11/19 04:10 ABG O2 Content 14.3 (0.0-44) 02/11/19 04:10 POC ABG Base Excess 2 ((-2) - (+3)mmol/L) 02/07/19 10:58 ABG Base Excess 0.8 mmol/L (-2.0-3.0) 02/11/19 04:10 ABG Hemoglobin 11.0 gm/dl (12.0-16.0) L 02/11/19 04:10 ABG Carboxyhemoglobin 1.5 % (0.0-5.0) 02/11/19 04:10 ABG Methemoglobin 0.7 % (0.0-1.5) 02/11/19 04:10 92.1 % (95.0-99.0) L 02/11/19 04:10 25 % 02/11/19 04:10 Sodium 151 mmol/L (137-145) H 02/11/19 04:54 Potassium 3.6 mmol/L (3.6-5.0) 02/11/19 04:54 Chloride 112.6 mmol/L (98-107) H 02/11/19 04:54 Carbon Dioxide 24 mmol/L (22-30) 02/11/19 04:54 18 mmol/L 02/11/19 04:54 BUN 127 mg/dL (7-17) H 02/11/19 04:54 1.8 mg/dL (0.7-1.2) H 02/11/19 04:54 Estimated GFR 36 ml/min 02/11/19 04:54 71 % 02/11/19 04:54 Glucose 396 mg/dL (65-100) H 02/11/19 04:54 POC Glucose 414 (70-105) H 02/11/19 17:58 Lactic Acid 1.40 mmol/L (0.7-2.0) 02/01/19 20:57 Calcium 8.3 mg/dL (8.4-10.2) L 02/11/19 04:54 Magnesium 2.20 mg/dL (1.7-2.3) 02/07/19 01:07 Iron 11 ug/dL (37-170) L 02/03/19 14:42 TIBC 88 mcg/dL (250-450) L 02/03/19 14:42 332.9 ng/mL (13.0-400.0) 02/03/19 14:42 0.30 mg/dL (0.1-1.2) 02/11/19 04:54 0.7 mg/dL (0-0.2) H 02/01/19 07:29 0.5 mg/dL 02/01/19 07:29 AST 28 units/L (5-40) 02/11/19 04:54 ALT 9 units/L (7-56) 02/11/19 04:54 132 units/L (35-129) H 02/11/19 04:54 0.181 ng/mL (0.00-0.029) H* 02/01/19 07:16 32.30 mg/dL (0.00-1.30) H 02/01/19 17:04 7.4 g/dL (6.3-8.2) 02/11/19 04:54 2.1 g/dL (3.9-5) L 02/11/19 04:54 0.4 % 02/11/19 04:54 Triglycerides 95 mg/dL (2-149) 02/01/19 07:16 Cholesterol 75 mg/dL (50-199) 02/01/19 07:16 34 mg/dL (50-130) L 02/01/19 07:16 20 mg/dL (40-59) L 02/01/19 07:16 3.75 % 02/01/19 07:16 Vitamin B12 1468 pg/mL (211-911) H 02/03/19 14:42 5.18 ng/mL (7.3-26.0) L 02/03/19 14:42 TSH 8.470 mlU/mL (0.270-4.200) H 02/01/19 07:43 Free T4 1.08 ng/dL (0.76-1.46) 02/01/19 07:43 Sara (Yellow) 02/01/19 09:45 Cloudy (Clear) 02/01/19 09:45 5.0 (5.0-7.0) 02/01/19 09:45 Ur Specific [place] 1.019 (1.003-1.030) 02/01/19 09:45 >500 mg/dL (Negative) 02/01/19 09:45 Neg mg/dL (Negative) 02/01/19 09:45 Neg mg/dL (Negative) 02/01/19 09:45 Mod (Negative) 02/01/19 09:45 Neg (Negative) 02/01/19 09:45 Neg (Negative) 02/01/19 09:45 < 2.0 mg/dL (<2.0) 02/01/19 09:45 Ur Leukocyte Esterase Neg (Negative) 02/01/19 09:45 10.0 /HPF (0.0-6.0) H 02/09/19 13:35 10.0 /HPF (0.0-6.0) 02/09/19 13:35 U Epithel Cells (Auto) 3.0 /HPF (0-13.0) 02/09/19 13:35 Amorphous Crystals 1+ 02/01/19 09:45 Few /HPF 02/09/19 13:35 92.9 mg/dL (0.1-20.0) H 02/09/19 18:54 Protein/Creatinin Ratio 1.25 02/09/19 18:54 116 mg/dL (5-11.8) H 02/09/19 18:54 Turbid 02/05/19 14:10 Colorless 02/05/19 14:10 1250 /mm3 (1-10) 02/05/19 14:10 30 /mm3 (0-0) 02/05/19 14:10 CSF Seg Neutrophils 30.0 % (0-6) 02/05/19 14:10 40.0 % (40-80) 02/05/19 14:10 CSF Reactive Lymphs 0 % 02/05/19 14:10 30.0 % (15-45) 02/05/19 14:10 0 % 02/05/19 14:10 0 % 02/05/19 14:10 C 02/05/19 14:10 38 mg/dL 02/05/19 14:10 140 mg/dL 02/05/19 14:10 Random Vancomycin 9.8 ug/mL (0-40.0) 02/03/19 03:30 CHESTER Screen Positive (Negative) H 02/01/19 17:04 CHESTER Titer 1:320 (Negative) H 02/01/19 17:04 CHESTER Pattern Speckled 02/01/19 17:04 Proteinase 3 (PR3) Ab <1.0 AI (<1.0) 02/01/19 19:28 Myeloperoxidase Ab <1.0 AI (<1.0) 02/01/19 19:28 36 mg/dL (83-193) L 02/01/19 16:51 12 mg/dL (15-57) L 02/01/19 16:51 RPR Nonreactive (Nonreactive) 02/02/19 15:45 Hepatitis A IgM Ab Non-reactive (NonReactive) 02/02/19 19:29 Hep Bs Antigen Non-reactive (Negative) 02/02/19 19:29 Hep B Core IgM Ab Non-reactive (NonReactive) 02/02/19 19:29 Non-reactive (NonReactive) 02/02/19 19:29 HIV 1&2 Antibody Rapid Non react (Non React) 02/02/19 15:46 Non react (Non React) 02/02/19 15:46 Flexitest 1 02/02/19 13:02 Blood Type B POSITIVE 02/05/19 13:02 Active Medications - Current Medications Current Medications: Generic Name Dose Route Start Last Admin Trade Name Freq PRN Reason Stop Dose Admin Acetaminophen 650 mg 02/01/19 10:47 02/11/19 04:30 Tylenol PO 650 mg Q4H PRN Administration Pain MILD(1-3)/Fever >100.5/VALENZUELA Albuterol 2.5 mg 02/01/19 10:47 Proventil IH Q4HRT PRN Shortness Of Breath Albuterol/Ipratropium 1 ampul 02/01/19 12:00 02/11/19 20:23 Duoneb *Not For Prn Use* IH 1 ampul Q6HRT AMOL Administration Lipase/Protease/Amylase 1 each 02/05/19 11:04 Pancreazchris Hammond 10,500 Unit FEEDTUBE PRN PRN For Clogged Feeding Tube Dexamethasone 4 mg 02/11/19 22:00 Decadron IV Q12HR AMOL Famotidine 20 mg 02/07/19 10:00 02/11/19 09:55 Pepcid PO 20 mg DAILY AMOL Administration Folic Acid 1 mg 02/06/19 10:00 02/11/19 09:55 Folvite PO 1 mg QDAY AMOL Administration Hydrophilic Ointment 1 applic 02/01/19 11:09 02/02/19 16:50 Vaseline Lip Therapy TP 1 applic Q2HR PRN Administration Dry Lips Ceftriaxone Sodium 2 gm in 100 mls @ 200 mls/hr 02/05/19 13:00 02/11/19 22:12 Rocephin/Ns 2 Gm/100 Ml IV 100 mls/hr Q12HR AMOL Administration Protocol Diltiazem HCl 100 mg in 100 mls @ 5 mls/hr 02/07/19 12:30 02/11/19 13:34 Cardizem/D5w 100mg/100ml IV 10 mg/hr TITR AMOL 10 mls/hr Administration Protocol 5 MG/HR Dextrose 1,000 mls @ 100 mls/hr 02/11/19 14:00 02/11/19 22:13 D5w IV 100 mls/hr DIRECT AMOL Administration Insulin Glargine 30 units 02/11/19 16:36 02/11/19 18:00 Lantus SUB-Q 30 units QHS AMOL Administration Insulin Human Regular 0 units 02/10/19 19:00 02/11/19 17:57 Humulin R SUB-Q 10 units Q6HR AMOL Administration Protocol Levothyroxine Sodium 125 mcg 02/07/19 10:00 02/11/19 09:55 Synthroid PO 125 mcg QAM AMOL Administration Multi-Ingred Cream/Lotion/Oil/Oint 1 applic 02/01/19 11:09 02/08/19 21:18 Artificial Tears Ophth Oint OU 1 applic Q4HR PRN Administration Dry Eye(s) Multivitamins 5 ml 02/06/19 10:00 02/11/19 09:55 Centrum Liq PO 5 ml QDAY AMOL Administration Ondansetron HCl 4 mg 02/01/19 10:47 Zofran IV Q8H PRN Nausea And Vomiting Simple Syrup 15 ml 02/05/19 11:04 Simple Syrup FEEDTUBE PRN PRN Hypoglycemia Simple Syrup 30 ml 02/05/19 11:04 Simple Syrup FEEDTUBE PRN PRN Hypoglycemia Sodium Bicarbonate 325 mg 02/05/19 11:04 Sodium Bicarbonate FEEDTUBE PRN PRN For Clogged Feeding Tube Sodium Chloride 10 ml 02/01/19 22:00 02/11/19 09:55 Sodium Chloride Flush Syringe 10 Ml IV 10 ml BID AMOL Administration Sodium Chloride 10 ml 02/01/19 10:47 Sodium Chloride Flush Syringe 10 Ml IV PRN PRN LINE FLUSH Nutrition/Malnutrition Assess - Dietary Evaluation Nutrition/Malnutrition Findings: Nutrition Notes Start: 02/02/19 15:11 Freq: Status: Active Protocol: Document 02/09/19 12:09 LM (Rec: 02/09/19 12:14 LM [id number]) Nutrition Notes Initial or Follow up Reassessment Current Diagnosis Acute Kidney Injury, Respiratory Failure Other Pertinent Diagnosis Hypothyroidism, Septic shock, Acute encephalopathy, UTI Current Diet NPO Labs/Tests Na 146 BUN 85 Creat 1.8 BG 163 Pertinent Medications Reviewed Height 5 ft 5 in Weight 94.93 kg Atkins Body Weight (kg) 56.81 BMI 34.8 Subjective/Other Information TF not running at time of visit due to TERRENCE ordered for today. Percent of energy/protein needs met: 0%/0% Burn Absent Trauma Absent #1 Nutrition Diagnosis Inadequate oral intake Diagnosis Progress(for reassessment Continues documentation) Is patient on ventilator? Yes Is Patient Ambulatory and/or Out of Bed No REE-([facility]-confined to bed) [phone] Calculation Used for Recommendations [facility] Additional Notes Protein Needs: 114g (2g/kg IBW ) Fluid Needs: 1 ml/kcal Nutrition Intervention Change Diet Order: Continue TF once feasible Nutrition Support: Nepro at 40ml/hr Flush with 170ml q4h Kcal 1,728 Protein (gm) 78 Fluid (mL) 697 Goal #1 TF restart Anticipated Discharge Needs: Unable to determine at this time Follow-Up By: 02/12/19 Additional Comments Follow for TF restart/ tolerance
[2019-02-12] MEDS: IPRATROPIUM/ALBUTEROL SULFATE 3 ML AMPUL.NEB IH SCH ×4 (02:18→20:12)
--- NOTE | 2019-02-12 02:54 | XRay Report ---
. CHEST 1 VIEW INDICATION: Pneumonia. COMPARISON: 02/08/2019. FINDINGS: Support devices: Unchanged. Heart: Stable mild cardiomegaly. Lungs/Pleura: Persistent left basilar effusion/volume loss. Aeration has improved at the right base. Edema remains. Additional findings: None. IMPRESSION: Improving aeration right base. Signer Name: Rocky Dye MD Signed: 02/12/2019 2:50 AM Workstation Name: [id number]
[2019-02-12 05:50] LABS: Hematocrit 31.6 % (30.3-42.9); Hemoglobin 9.9 gm/dl (10.1-14.3); Mean Corpuscular HGB Conc 31 % (30-34); Mean Corpuscular Volume 93 fl (79-97); Platelet Count 199 K/mm3 (140-440); Red Cell Distribution Width 16.4 % (13.2-15.2)
[2019-02-12 06:14] LABS: Calcium 8.3 mg/dL (8.4-10.2)
[2019-02-12] MEDS: INSULIN REGULAR, HUMAN 100 UNITS/1 ML SUB-Q SCH ×3 (06:47→17:17)
--- NOTE | 2019-02-12 07:38 | Hem/Onc Progress Note ---
Assessment and Plan 1. h/o Thrombocytopenia, sepsis/infection/antibiotic related. Folate level is low, B12 is normal. Serum iron is low, but ferritin is not low. HIV negative. Fibrinogen level is not low. PT, PTT is not abnormal. Supportive care at this time will help the patient. 2. Diabetes. 3. Hypothyroidism. 4. History of renal impairment, on supportive care. 5. Intubation for respiratory issues. 6. Neurology team saw the patient. Neurology thinks it is septic metabolic encephalopathy. I will follow the patient during inpatient stay. 02/12 plt > 100 low folate on replaement pt still - on vent - unresponsive neurology - ? meningitis TERRENCE done as per notes - extubation evaluation is ongoing - Patient Problems (1) Thrombocytopenia Current Visit: Yes Status: Acute Subjective Date of service: 02/12/19 Principal diagnosis: h/o anemia Interval history: unresponsive as per RN - CPAP trial was done Objective - Exam Narrative Exam: Pain - not evaluable General appearance intubated Performance status complete dependent Eyes - no icterus ENT - no bleeding - on vent LNs cervical not palpable Neck - no LN Respiratory Normal Breath sounds - CTA anteriorly CVS S1 S2 + Extremities normal temperature General GI Soft Rectal deferred female - deferred Skin warm Musculoskeletal not moving Neurologically not responding to verbal commands - Constitutional Vitals: Last Vital Signs Temp 98.5 F 02/12/19 04:00 Pulse 75 02/12/19 06:30 Resp 18 02/12/19 06:30 BP 134/76 02/12/19 06:30 Pulse Ox 99 02/12/19 06:30 - Labs Lab Results: Laboratory Results - last 24 hr 02/11/19 02/11/19 02/11/19 11:30 17:58 23:18 WBC RBC Hgb Hct MCV MCH MCHC RDW Plt Count Seg Neutrophils % POC ABG pH POC ABG pCO2 POC ABG pO2 POC ABG HCO3 POC ABG Total CO2 POC ABG O2 Sat POC ABG Base Excess FiO2 Sodium Potassium Chloride Carbon Dioxide Anion Gap BUN Creatinine Estimated GFR BUN/Creatinine Ratio Glucose POC Glucose 361 H 414 H 392 H Calcium Total Bilirubin AST ALT Alkaline Phosphatase Total Protein Albumin Albumin/Globulin Ratio 02/12/19 02/12/19 02/12/19 05:32 05:36 05:36 WBC 11.9 H RBC 3.40 L Hgb 9.9 L Hct 31.6 MCV 93 MCH 29 MCHC 31 RDW 16.4 H Plt Count 199 Seg Neutrophils % Map Drafter POC ABG pH POC ABG pCO2 POC ABG pO2 POC ABG HCO3 POC ABG Total CO2 POC ABG O2 Sat POC ABG Base Excess FiO2 Sodium 146 H Potassium 3.5 L Chloride 110.2 H Carbon Dioxide 24 Anion Gap 15 BUN 118 H Creatinine 1.4 H Estimated GFR 48 BUN/Creatinine Ratio 84 Glucose 382 H POC Glucose 361 H Calcium 8.3 L Total Bilirubin 0.30 AST 33 ALT 17 Alkaline Phosphatase 137 H Total Protein 6.8 Albumin 2.0 L Albumin/Globulin Ratio 0.4 02/12/19 05:36 WBC RBC Hgb Hct MCV MCH MCHC RDW Plt Count Seg Neutrophils % POC ABG pH 7.418 POC ABG pCO2 36.9 POC ABG pO2 92 POC ABG HCO3 23.8 POC ABG Total CO2 25 POC ABG O2 Sat 97 POC ABG Base Excess -1 FiO2 25 Sodium Potassium Chloride Carbon Dioxide Anion Gap BUN Creatinine Estimated GFR BUN/Creatinine Ratio Glucose POC Glucose Calcium Total Bilirubin AST ALT Alkaline Phosphatase Total Protein Albumin Albumin/Globulin Ratio Medications & Allergies - Medications Allergies/Adverse Reactions: Allergies No Known Allergies Allergy (Verified 08/18/18 09:04) Home Medications: Home Medications Medication Instructions Recorded Confirmed Last Taken Type Levothyroxine [Synthroid] 112 mcg PO QAM 02/01/19 02/01/19 Unknown History Lisinopril [Zestril TAB] 40 mg PO QDAY 02/01/19 02/01/19 Unknown History amLODIPine [Norvasc] 10 mg PO DAILY 02/01/19 02/01/19 Unknown History cloNIDine [Catapres] 1 mg PO QDAY 02/01/19 02/01/19 Unknown History Active Medications: Generic Name Dose Route Start Last Admin Trade Name Freq PRN Reason Stop Dose Admin Acetaminophen 650 mg 02/01/19 10:47 02/11/19 04:30 Tylenol PO 650 mg Q4H PRN Administration Pain MILD(1-3)/Fever >100.5/VALENZUELA Albuterol 2.5 mg 02/01/19 10:47 Proventil IH Q4HRT PRN Shortness Of Breath Albuterol/Ipratropium 1 ampul 02/01/19 12:00 02/12/19 02:18 Duoneb *Not For Prn Use* IH 1 ampul Q6HRT AMOL Administration Lipase/Protease/Amylase 1 each 02/05/19 11:04 Carola Hammodn 10,500 Unit FEEDTUBE PRN PRN For Clogged Feeding Tube Dexamethasone 4 mg 02/11/19 22:00 02/11/19 22:18 Decadron IV 4 mg Q12HR AMOL Administration Famotidine 20 mg 02/07/19 10:00 02/11/19 09:55 Pepcid PO 20 mg DAILY AMOL Administration Folic Acid 1 mg 02/06/19 10:00 02/11/19 09:55 Folvite PO 1 mg QDAY AMOL Administration Hydrophilic Ointment 1 applic 02/01/19 11:09 02/02/19 16:50 Vaseline Lip Therapy TP 1 applic Q2HR PRN Administration Dry Lips Ceftriaxone Sodium 2 gm in 100 mls @ 200 mls/hr 02/05/19 13:00 02/11/19 22:12 Rocephin/Ns 2 Gm/100 Ml IV 100 mls/hr Q12HR AMOL Administration Protocol Diltiazem HCl 100 mg in 100 mls @ 5 mls/hr 02/07/19 12:30 02/11/19 23:26 Cardizem/D5w 100mg/100ml IV 5 mg/hr TITR AMOL 5 mls/hr Administration Protocol 5 MG/HR Dextrose 1,000 mls @ 100 mls/hr 02/11/19 14:00 02/11/19 22:13 D5w IV 100 mls/hr DIRECT AMOL Administration Insulin Glargine 30 units 02/11/19 16:36 02/11/19 23:21 Lantus SUB-Q 30 units QHS AMOL Administration Insulin Human Regular 0 units 02/10/19 19:00 02/12/19 06:47 Humulin R SUB-Q 10 units Q6HR AMOL Administration Protocol Levothyroxine Sodium 125 mcg 02/07/19 10:00 02/11/19 09:55 Synthroid PO 125 mcg QAM AMOL Administration Multi-Ingred Cream/Lotion/Oil/Oint 1 applic 02/01/19 11:09 02/08/19 21:18 Artificial Tears Ophth Oint OU 1 applic Q4HR PRN Administration Dry Eye(s) Multivitamins 5 ml 02/06/19 10:00 02/11/19 09:55 Centrum Liq PO 5 ml QDAY AMOL Administration Ondansetron HCl 4 mg 02/01/19 10:47 Zofran IV Q8H PRN Nausea And Vomiting Simple Syrup 15 ml 02/05/19 11:04 Simple Syrup FEEDTUBE PRN PRN Hypoglycemia Simple Syrup 30 ml 02/05/19 11:04 Simple Syrup FEEDTUBE PRN PRN Hypoglycemia Sodium Bicarbonate 325 mg 02/05/19 11:04 Sodium Bicarbonate FEEDTUBE PRN PRN For Clogged Feeding Tube Sodium Chloride 10 ml 02/01/19 22:00 02/11/19 22:14 Sodium Chloride Flush Syringe 10 Ml IV 10 ml BID AMOL Administration Sodium Chloride 10 ml 02/01/19 10:47 Sodium Chloride Flush Syringe 10 Ml IV PRN PRN LINE FLUSH
[2019-02-12 07:51] LABS: Total Cells Counted 100
[2019-02-12 07:52] LABS: Basophils % (Manual) 0 % (0.0-1.8); Eosinophils % (Manual) 0 % (0.0-4.3)
[2019-02-12 07:53] LABS: Anisocytosis Few; Ovalocytes Few; Platelet Estimate Consistent w Auto
[2019-02-12] MEDS: DEXTROSE 5% IN WATER 1,000 ML IV SCH (08:57)
[2019-02-12] MEDS: SODIUM CHLORIDE 0.45% 1000 ML 1,000 ML IV SCH ×2 (09:23→17:00)
[2019-02-12] MEDS: MULTIVITAMINS 5 ML ORAL LIQUID PO SCH (09:23)
[2019-02-12] MEDS: FAMOTIDINE 20 MG TAB PO SCH ×2 (09:24→21:01)
[2019-02-12] MEDS: LEVOTHYROXINE 125 MCG TAB PO SCH (09:24)
[2019-02-12] MEDS: cefTRIAXone/NS 2 GM/100 ML 2 GM/100 ML BAG IV SCH ×2 (09:24→21:02)
[2019-02-12] MEDS: dexAMETHasone 4 MG/ML VIAL IV SCH ×2 (09:24→21:02)
[2019-02-12] MEDS: FOLIC ACID 1 MG TAB PO SCH (09:25)
--- NOTE | 2019-02-12 09:56 | Progress Note ---
Assessment and Plan Assessment and plan: 53 year old woman who was brought in by her family for unsteady gait, fatigue, and withdrawn behavior. I finally noticed difficult to it fine motor skills throughout that night she was having difficulty expressing herself. she was at a restaurant family I will continue to point to the menu. She became more disoriented and less responsive prompting family to bring her to the emergency room Sepsis Strep pneumoniae bacteremia Right neck cellulitis vs neck LAD PNA meningitis TERRENCE neg for vegatations cont abx per ID, consider tagged wbc scan per ID "On 02/07/2019, patient's mother showed me paperwork from patient's PCP, patient was seen on 01/30/2019 at PCP office for R neck lump, was given medrol dose kevin and ultrasound was ordered. Once creatinine improves, may need CT chest, abdomen pelvis with IV contrast to evaluate for other lymphadenopathy, although the lymphadenopathy may be from lupus." Hyperglycemia cont ssi, amd lantus Thrombocytopenia likely due to sepsis or autoimmune phenomenon, hematology input appreciated, hiv-negative, fibrinogen level is not low, PT PTT is normal. 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 families is unclear on this medical history, but know that she has some form of autoimmune disease Compliments are reduced, CHESTER is positive, anti ds dna pending, highly suspect lupus cont steroids Acute metabolic encephalopathy Likely due to sepsis, eeg neg for seizure, neuro input appreciated Acute respiratory failure on MV > 96 hours cont vent per pulmonology Type 2 IN - cardiology input appreciated, rx the underlying cause Hypothyroidism TSH elevated, synthroid dose increased -repeat TFTs in 4-6 wks Prognosis is guarded The high probability of a clinically significant, sudden or life threatening deterioration of the [CV, Neurology, renal] system(s) required my full and direct attention, intervention and personal management. The aggregate critical care time was [45] minutes. This time is in addition to time spent performing reported procedures but includes the following: [x] Data Review and interpretation [x] Patient assessment and monitoring of vital signs [x] Documentation [x] Medication orders and management History Interval history: patient remains non responsive despite not being on sedation -having fevers -no seizures or vomiting Hospitalist Physical - Physical exam Narrative exam: General appearance: Present: other (appears ill) - EENT Eyes: Present: PERRL ENT: dentition normal - Neck Neck: Present: supple, cervical LAD - Respiratory Respiratory effort: normal Respiratory: bilateral: diminished, rales - Cardiovascular Rhythm: regular Heart Sounds: Present: S1 & S2 - Extremities Extremities: No edema Peripheral Pulses: within normal limits - Abdominal General gastrointestinal: soft, non-distended - Integumentary Integumentary: Absent: erythema, jaundice - Psychiatric Psychiatric: other (intubated/on vent) - Neurologic Neurologic: no moves all extremities, other (non responsive) - Constitutional Vitals: Temp Pulse Resp BP Pulse Ox 97.8 F 89 18 145/76 99 02/12/19 08:00 02/12/19 09:00 02/12/19 09:00 02/12/19 09:00 02/12/19 09:00 Results - Labs CBC & Chem 7: 02/13/19 03:41 02/13/19 03:41 Labs: Laboratory Last Values WBC 11.9 K/mm3 (4.5-11.0) H 02/12/19 05:36 RBC 3.40 M/mm3 (3.65-5.03) L 02/12/19 05:36 Hgb 9.9 gm/dl (10.1-14.3) L 02/12/19 05:36 Hct 31.6 % (30.3-42.9) 02/12/19 05:36 MCV 93 fl (79-97) 02/12/19 05:36 MCH 29 pg (28-32) 02/12/19 05:36 MCHC 31 % (30-34) 02/12/19 05:36 RDW 16.4 % (13.2-15.2) H 02/12/19 05:36 Plt Count 199 K/mm3 (140-440) 02/12/19 05:36 Lymph % (Auto) Medical Artist 02/05/19 13:02 [place] % (Auto) Medical Artist 02/05/19 13:02 Eos % (Auto) Medical Artist 02/05/19 13:02 Baso % (Auto) Medical Artist 02/05/19 13:02 Lymph # Medical Artist 02/05/19 13:02 [place] # Medical Artist 02/05/19 13:02 Eos # Medical Artist 02/05/19 13:02 Baso # Medical Artist 02/05/19 13:02 Add Manual Diff Complete 02/12/19 05:36 Total Counted 100 02/12/19 05:36 Seg Neutrophils % Medical Artist 02/12/19 05:36 Seg Neuts % (Manual) 97.0 % (40.0-70.0) H 02/12/19 05:36 0 % 02/12/19 05:36 2.0 % (13.4-35.0) L 02/12/19 05:36 Reactive Lymphs % (Man) 0 % 02/12/19 05:36 1.0 % (0.0-7.3) 02/12/19 05:36 0 % (0.0-4.3) 02/12/19 05:36 0 % (0.0-1.8) 02/12/19 05:36 0 % 02/12/19 05:36 0 % 02/12/19 05:36 0 % 02/12/19 05:36 0 % 02/12/19 05:36 Nucleated RBC % Not Reportable 02/12/19 05:36 Seg Neutrophils # Medical Artist 02/05/19 13:02 Seg Neutrophils # Man 11.5 K/mm3 (1.8-7.7) H 02/12/19 05:36 Band Neutrophils # 0.0 K/mm3 02/12/19 05:36 0.2 K/mm3 (1.2-5.4) L 02/12/19 05:36 Abs React Lymphs (Man) 0.0 K/mm3 02/12/19 05:36 0.1 K/mm3 (0.0-0.8) 02/12/19 05:36 0.0 K/mm3 (0.0-0.4) 02/12/19 05:36 0.0 K/mm3 (0.0-0.1) 02/12/19 05:36 0.0 K/mm3 02/12/19 05:36 0.0 K/mm3 02/12/19 05:36 0.0 K/mm3 02/12/19 05:36 Blast Cells # 0.0 K/mm3 02/12/19 05:36 WBC Morphology Not Reportable 02/12/19 05:36 Hypersegmented Neuts Not Reportable 02/12/19 05:36 Hyposegmented Neuts Not Reportable 02/12/19 05:36 Hypogranular Neuts Not Reportable 02/12/19 05:36 Cancelled 02/01/19 07:16 Not Reportable 02/12/19 05:36 Not Reportable 02/12/19 05:36 Not Reportable 02/12/19 05:36 Not Reportable 02/12/19 05:36 Not Reportable 02/12/19 05:36 Not Reportable 02/12/19 05:36 Consistent w auto 02/12/19 05:36 Not Reportable 02/12/19 05:36 Plt Clumps, EDTA Not Reportable 02/12/19 05:36 Not Reportable 02/12/19 05:36 Not Reportable 02/12/19 05:36 Not Reportable 02/12/19 05:36 Plt Morphology Comment Not Reportable 02/12/19 05:36 RBC Morphology Not Reportable 02/12/19 05:36 Dimorphic RBCs Not Reportable 02/12/19 05:36 Not Reportable 02/12/19 05:36 Not Reportable 02/12/19 05:36 Not Reportable 02/12/19 05:36 Cancelled 02/01/19 07:16 Few 02/12/19 05:36 Not Reportable 02/12/19 05:36 Not Reportable 02/12/19 05:36 Not Reportable 02/12/19 05:36 Not Reportable 02/12/19 05:36 Not Reportable 02/12/19 05:36 Not Reportable 02/12/19 05:36 Not Reportable 02/12/19 05:36 Few 02/12/19 05:36 Cancelled 02/01/19 07:16 Not Reportable 02/12/19 05:36 Not Reportable 02/12/19 05:36 Not Reportable 02/12/19 05:36 Not Reportable 02/12/19 05:36 Not Reportable 02/12/19 05:36 Not Reportable 02/12/19 05:36 Not Reportable 02/12/19 05:36 Acanthocytes (Spur) Not Reportable 02/12/19 05:36 Rouleaux Not Reportable 02/12/19 05:36 Not Reportable 02/12/19 05:36 Not Reportable 02/12/19 05:36 Not Reportable 02/12/19 05:36 ESR 76 mm/Hr (0-20) 02/01/19 16:51 Not Reportable 02/12/19 05:36 Hem Pathologist Commnt No 02/12/19 05:36 PT 16.3 Sec. (12.2-14.9) H 02/06/19 07:35 INR 1.35 (0.87-1.13) H 02/06/19 07:35 APTT 33.1 Sec. (24.2-36.6) 02/06/19 07:35 20.0 Sec. (15.1-19.6) H 02/01/19 07:16 479 mg/dl (211-480) 02/03/19 14:42 POC ABG pH 7.418 (7.35-7.45) 02/12/19 05:36 ABG pH 7.440 pH Units (7.350-7.450) 02/11/19 04:10 POC ABG pCO2 36.9 (35-45) 02/12/19 05:36 ABG pCO2 37.4 mm Hg 02/11/19 04:10 POC ABG pO2 92 (80-105) 02/12/19 05:36 ABG pO2 69.4 mm Hg (80.0-90.0) L 02/11/19 04:10 POC ABG HCO3 23.8 (22-26 mml/L) 02/12/19 05:36 ABG HCO3 24.8 mmol/L (20.0-26.0) 02/11/19 04:10 POC ABG Total CO2 25 (23-27mmol/L) 02/12/19 05:36 POC ABG O2 Sat 97 02/12/19 05:36 ABG O2 Saturation 94.2 % (95.0-99.0) L 02/11/19 04:10 ABG O2 Content 14.3 (0.0-44) 02/11/19 04:10 POC ABG Base Excess -1 ((-2) - (+3)mmol/L) 02/12/19 05:36 ABG Base Excess 0.8 mmol/L (-2.0-3.0) 02/11/19 04:10 ABG Hemoglobin 11.0 gm/dl (12.0-16.0) L 02/11/19 04:10 ABG Carboxyhemoglobin 1.5 % (0.0-5.0) 02/11/19 04:10 ABG Methemoglobin 0.7 % (0.0-1.5) 02/11/19 04:10 92.1 % (95.0-99.0) L 02/11/19 04:10 25 % 02/12/19 05:36 Sodium 146 mmol/L (137-145) H 02/12/19 05:36 Potassium 3.5 mmol/L (3.6-5.0) L 02/12/19 05:36 Chloride 110.2 mmol/L (98-107) H 02/12/19 05:36 Carbon Dioxide 24 mmol/L (22-30) 02/12/19 05:36 15 mmol/L 02/12/19 05:36 BUN 118 mg/dL (7-17) H 02/12/19 05:36 1.4 mg/dL (0.7-1.2) H 02/12/19 05:36 Estimated GFR 48 ml/min 02/12/19 05:36 84 % 02/12/19 05:36 Glucose 382 mg/dL (65-100) H 02/12/19 05:36 POC Glucose 361 (70-105) H 02/12/19 05:32 Lactic Acid 1.40 mmol/L (0.7-2.0) 02/01/19 20:57 Calcium 8.3 mg/dL (8.4-10.2) L 02/12/19 05:36 Magnesium 2.20 mg/dL (1.7-2.3) 02/07/19 01:07 Iron 11 ug/dL (37-170) L 02/03/19 14:42 TIBC 88 mcg/dL (250-450) L 02/03/19 14:42 332.9 ng/mL (13.0-400.0) 02/03/19 14:42 0.30 mg/dL (0.1-1.2) 02/12/19 05:36 0.7 mg/dL (0-0.2) H 02/01/19 07:29 0.5 mg/dL 02/01/19 07:29 AST 33 units/L (5-40) 02/12/19 05:36 ALT 17 units/L (7-56) 02/12/19 05:36 137 units/L (35-129) H 02/12/19 05:36 0.181 ng/mL (0.00-0.029) H* 02/01/19 07:16 32.30 mg/dL (0.00-1.30) H 02/01/19 17:04 6.8 g/dL (6.3-8.2) 02/12/19 05:36 2.0 g/dL (3.9-5) L 02/12/19 05:36 0.4 % 02/12/19 05:36 Triglycerides 95 mg/dL (2-149) 02/01/19 07:16 Cholesterol 75 mg/dL (50-199) 02/01/19 07:16 34 mg/dL (50-130) L 02/01/19 07:16 20 mg/dL (40-59) L 02/01/19 07:16 3.75 % 02/01/19 07:16 Vitamin B12 1468 pg/mL (211-911) H 02/03/19 14:42 5.18 ng/mL (7.3-26.0) L 02/03/19 14:42 TSH 8.470 mlU/mL (0.270-4.200) H 02/01/19 07:43 Free T4 1.08 ng/dL (0.76-1.46) 02/01/19 07:43 Sara (Yellow) 02/01/19 09:45 Cloudy (Clear) 02/01/19 09:45 5.0 (5.0-7.0) 02/01/19 09:45 Ur Specific [place] 1.019 (1.003-1.030) 02/01/19 09:45 >500 mg/dL (Negative) 02/01/19 09:45 Neg mg/dL (Negative) 02/01/19 09:45 Neg mg/dL (Negative) 02/01/19 09:45 Mod (Negative) 02/01/19 09:45 Neg (Negative) 02/01/19 09:45 Neg (Negative) 02/01/19 09:45 < 2.0 mg/dL (<2.0) 02/01/19 09:45 Ur Leukocyte Esterase Neg (Negative) 02/01/19 09:45 10.0 /HPF (0.0-6.0) H 02/09/19 13:35 10.0 /HPF (0.0-6.0) 02/09/19 13:35 U Epithel Cells (Auto) 3.0 /HPF (0-13.0) 02/09/19 13:35 Amorphous Crystals 1+ 02/01/19 09:45 Few /HPF 02/09/19 13:35 92.9 mg/dL (0.1-20.0) H 02/09/19 18:54 Protein/Creatinin Ratio 1.25 02/09/19 18:54 116 mg/dL (5-11.8) H 02/09/19 18:54 Turbid 02/05/19 14:10 Colorless 02/05/19 14:10 1250 /mm3 (1-10) 02/05/19 14:10 30 /mm3 (0-0) 02/05/19 14:10 CSF Seg Neutrophils 30.0 % (0-6) 02/05/19 14:10 40.0 % (40-80) 02/05/19 14:10 CSF Reactive Lymphs 0 % 02/05/19 14:10 30.0 % (15-45) 02/05/19 14:10 0 % 02/05/19 14:10 0 % 02/05/19 14:10 C 02/05/19 14:10 38 mg/dL 02/05/19 14:10 140 mg/dL 02/05/19 14:10 Random Vancomycin 9.8 ug/mL (0-40.0) 02/03/19 03:30 CHESTER Screen Positive (Negative) H 02/01/19 17:04 CHESTER Titer 1:320 (Negative) H 02/01/19 17:04 CHESTER Pattern Speckled 02/01/19 17:04 Proteinase 3 (PR3) Ab <1.0 AI (<1.0) 02/01/19 19:28 Myeloperoxidase Ab <1.0 AI (<1.0) 02/01/19 19:28 36 mg/dL (83-193) L 02/01/19 16:51 12 mg/dL (15-57) L 02/01/19 16:51 RPR Nonreactive (Nonreactive) 02/02/19 15:45 Hepatitis A IgM Ab Non-reactive (NonReactive) 02/02/19 19:29 Hep Bs Antigen Non-reactive (Negative) 02/02/19 19:29 Hep B Core IgM Ab Non-reactive (NonReactive) 02/02/19 19:29 Non-reactive (NonReactive) 02/02/19 19:29 HIV 1&2 Antibody Rapid Non react (Non React) 02/02/19 15:46 Non react (Non React) 02/02/19 15:46 Flexitest 1 02/02/19 13:02 Blood Type B POSITIVE 02/05/19 13:02 Active Medications - Current Medications Current Medications: Generic Name Dose Route Start Last Admin Trade Name Freq PRN Reason Stop Dose Admin Acetaminophen 650 mg 02/01/19 10:47 02/11/19 04:30 Tylenol PO 650 mg Q4H PRN Administration Pain MILD(1-3)/Fever >100.5/VALENZUELA Albuterol 2.5 mg 02/01/19 10:47 Proventil IH Q4HRT PRN Shortness Of Breath Albuterol/Ipratropium 1 ampul 02/01/19 12:00 02/12/19 08:41 Duoneb *Not For Prn Use* IH 1 ampul Q6HRT AMOL Administration Lipase/Protease/Amylase 1 each 02/05/19 11:04 Pancreazchris Hammond 10,500 Unit FEEDTUBE PRN PRN For Clogged Feeding Tube Dexamethasone 4 mg 02/11/19 22:00 02/12/19 09:24 Decadron IV 4 mg Q12HR AMOL Administration Famotidine 20 mg 02/12/19 10:00 02/12/19 09:24 Pepcid PO 20 mg BID AMOL Administration Folic Acid 1 mg 02/06/19 10:00 02/12/19 09:25 Folvite PO 1 mg QDAY AMOL Administration Hydrophilic Ointment 1 applic 02/01/19 11:09 02/02/19 16:50 Vaseline Lip Therapy TP 1 applic Q2HR PRN Administration Dry Lips Ceftriaxone Sodium 2 gm in 100 mls @ 200 mls/hr 02/05/19 13:00 02/12/19 09:24 Rocephin/Ns 2 Gm/100 Ml IV 100 mls/hr Q12HR AMOL Administration Protocol Diltiazem HCl 100 mg in 100 mls @ 5 mls/hr 02/07/19 12:30 02/11/19 23:26 Cardizem/D5w 100mg/100ml IV 5 mg/hr TITR AMOL 5 mls/hr Administration Protocol 5 MG/HR Sodium Chloride 1,000 mls @ 150 mls/hr 02/12/19 10:00 02/12/19 09:23 Nacl 0.45% 1000 Ml IV 150 mls/hr DIRECT AMOL Administration Insulin Glargine 30 units 02/11/19 16:36 02/11/19 23:21 Lantus SUB-Q 30 units QHS AMOL Administration Insulin Human Regular 0 units 02/10/19 19:00 02/12/19 06:47 Humulin R SUB-Q 10 units Q6HR AMOL Administration Protocol Levothyroxine Sodium 125 mcg 02/07/19 10:00 02/12/19 09:24 Synthroid PO 125 mcg QAM AMOL Administration Multi-Ingred Cream/Lotion/Oil/Oint 1 applic 02/01/19 11:09 02/08/19 21:18 Artificial Tears Ophth Oint OU 1 applic Q4HR PRN Administration Dry Eye(s) Multivitamins 5 ml 02/06/19 10:00 02/12/19 09:23 Centrum Liq PO 5 ml QDAY AMOL Administration Ondansetron HCl 4 mg 02/01/19 10:47 Zofran IV Q8H PRN Nausea And Vomiting Simple Syrup 15 ml 02/05/19 11:04 Simple Syrup FEEDTUBE PRN PRN Hypoglycemia Simple Syrup 30 ml 02/05/19 11:04 Simple Syrup FEEDTUBE PRN PRN Hypoglycemia Sodium Bicarbonate 325 mg 02/05/19 11:04 Sodium Bicarbonate FEEDTUBE PRN PRN For Clogged Feeding Tube Sodium Chloride 10 ml 02/01/19 22:00 02/12/19 09:25 Sodium Chloride Flush Syringe 10 Ml IV 10 ml BID AMOL Administration Sodium Chloride 10 ml 02/01/19 10:47 Sodium Chloride Flush Syringe 10 Ml IV PRN PRN LINE FLUSH Nutrition/Malnutrition Assess - Dietary Evaluation Nutrition/Malnutrition Findings: Nutrition Notes Start: 02/02/19 15:11 Freq: Status: Active Protocol: Document 02/09/19 12:09 LM (Rec: 02/09/19 12:14 LM [id number]) Nutrition Notes Initial or Follow up Reassessment Current Diagnosis Acute Kidney Injury, Respiratory Failure Other Pertinent Diagnosis Hypothyroidism, Septic shock, Acute encephalopathy, UTI Current Diet NPO Labs/Tests Na 146 BUN 85 Creat 1.8 BG 163 Pertinent Medications Reviewed Height 5 ft 5 in Weight 94.93 kg [place] Body Weight (kg) 56.81 BMI 34.8 Subjective/Other Information TF not running at time of visit due to TERRENCE ordered for today. Percent of energy/protein needs met: 0%/0% Burn Absent Trauma Absent #1 Nutrition Diagnosis Inadequate oral intake Diagnosis Progress(for reassessment Continues documentation) Is patient on ventilator? Yes Is Patient Ambulatory and/or Out of Bed No REE-([facility]-confined to bed) [phone] Calculation Used for Recommendations [facility] Additional Notes Protein Needs: 114g (2g/kg IBW ) Fluid Needs: 1 ml/kcal Nutrition Intervention Change Diet Order: Continue TF once feasible Nutrition Support: Nepro at 40ml/hr Flush with 170ml q4h Kcal 1,728 Protein (gm) 78 Fluid (mL) 697 Goal #1 TF restart Anticipated Discharge Needs: Unable to determine at this time Follow-Up By: 02/12/19 Additional Comments Follow for TF restart/ tolerance
--- NOTE | 2019-02-12 10:45 | Progress Note ---
Assessment and Plan - Patient Problems (1) Hypernatremia Current Visit: Yes Status: Acute Plan to address problem: Hypernatremia : Improving - Will change to half-normal saline given significant hyperglycemia and acute kidney injury - We'll check labs - Free water pushes as well (2) DIANA (acute kidney injury) Current Visit: Yes Status: Acute Plan to address problem: Acute kidney injury improvement Change to half-normal saline significant azotemia did receive steroids Continue fluid hydration Recheck labs Avoid nephrotoxic medications (3) Bacteremia Current Visit: Yes Status: Acute Plan to address problem: Bacteremia History of streptococcal bacteremia and cellulitis complete antibiotics (4) Altered mental status Current Visit: Yes Status: Acute Plan to address problem: Encephalopathy appears to be improving Continue hydration Subjective Principal diagnosis: h/o anemia Interval history: 53-year-old lady streptococcal bacteremia, cellulitis, encephalopathy admitted with oliguric acute kidney injury in the setting of sepsis and ATN Patient seen today mental status slightly improving patient attempted to try to obey commands Currently with elevated fingersticks on D5 water Sodium level is improving Objective - Vital Signs Vital signs: Vital Signs - 12hr 02/11/19 02/11/19 02/12/19 23:00 23:30 00:00 Temperature 99.0 F Pulse Rate 74 82 89 Pulse Rate [ Anterior Bilateral Throughout] Pulse Rate [ 76 From Monitor] Respiratory 21 20 22 Rate Respiratory Rate [Anterior Bilateral Throughout] Blood Pressure 133/75 146/83 143/78 O2 Sat by Pulse 98 98 97 Oximetry 02/12/19 02/12/19 02/12/19 00:10 00:30 01:01 Temperature Pulse Rate 92 H 110 H 95 H Pulse Rate [ Anterior Bilateral Throughout] Pulse Rate [ From Monitor] Respiratory 25 H 24 Rate Respiratory Rate [Anterior Bilateral Throughout] Blood Pressure 148/85 144/81 144/80 O2 Sat by Pulse 99 97 97 Oximetry 02/12/19 02/12/19 02/12/19 01:31 02:00 02:18 Temperature Pulse Rate 85 90 Pulse Rate [ 91 H Anterior Bilateral Throughout] Pulse Rate [ From Monitor] Respiratory 23 24 Rate Respiratory 23 Rate [Anterior Bilateral Throughout] Blood Pressure 127/61 146/76 O2 Sat by Pulse 98 98 Oximetry 02/12/19 02/12/19 02/12/19 02:31 03:00 03:31 Temperature Pulse Rate 86 87 88 Pulse Rate [ Anterior Bilateral Throughout] Pulse Rate [ From Monitor] Respiratory 19 23 22 Rate Respiratory Rate [Anterior Bilateral Throughout] Blood Pressure 143/79 156/85 142/77 O2 Sat by Pulse 100 98 99 Oximetry 02/12/19 02/12/19 02/12/19 04:00 04:30 05:00 Temperature 98.5 F Pulse Rate 85 84 76 Pulse Rate [ Anterior Bilateral Throughout] Pulse Rate [ 80 From Monitor] Respiratory 25 H 22 18 Rate Respiratory Rate [Anterior Bilateral Throughout] Blood Pressure 143/74 130/74 134/68 O2 Sat by Pulse 98 99 100 Oximetry 02/12/19 02/12/19 02/12/19 05:31 06:00 06:30 Temperature Pulse Rate 81 81 75 Pulse Rate [ Anterior Bilateral Throughout] Pulse Rate [ From Monitor] Respiratory 18 19 18 Rate Respiratory Rate [Anterior Bilateral Throughout] Blood Pressure 134/72 135/81 134/76 O2 Sat by Pulse 99 99 99 Oximetry 02/12/19 02/12/19 02/12/19 07:00 07:30 08:00 Temperature 97.8 F Pulse Rate 73 73 74 Pulse Rate [ Anterior Bilateral Throughout] Pulse Rate [ 84 From Monitor] Respiratory 19 17 20 Rate Respiratory Rate [Anterior Bilateral Throughout] Blood Pressure 131/71 140/70 135/69 O2 Sat by Pulse 99 98 100 Oximetry 02/12/19 02/12/19 02/12/19 08:31 08:41 09:00 Temperature Pulse Rate 89 88 89 Pulse Rate [ 81 Anterior Bilateral Throughout] Pulse Rate [ From Monitor] Respiratory 21 18 Rate Respiratory 20 Rate [Anterior Bilateral Throughout] Blood Pressure 143/80 155/71 145/76 O2 Sat by Pulse 99 100 99 Oximetry - General Appearance General appearance: well-developed, well-nourished EENT: ATNC, PERRL Neck: no JVD Respiratory: Present: Decreased Breath Sounds Cardiology: regular, S1S2 Gastrointestinal: normal, normoactive bowel sounds Integumentary: no rash Neurologic: confused, other (awake) Musculoskeletal: deferred Psychiatric: mood/affect appropriate - Lab 02/12/19 05:36 02/12/19 05:36 Most recent lab results ABG pH 7.440 pH Units (7.350-7.450) 02/11/19 04:10 ABG pCO2 37.4 mm Hg 02/11/19 04:10 ABG pO2 69.4 mm Hg (80.0-90.0) L 02/11/19 04:10 ABG HCO3 24.8 mmol/L (20.0-26.0) 02/11/19 04:10 ABG O2 Saturation 94.2 % (95.0-99.0) L 02/11/19 04:10 Calcium 8.3 mg/dL (8.4-10.2) L 02/12/19 05:36 Magnesium 2.20 mg/dL (1.7-2.3) 02/07/19 01:07 92.9 mg/dL (0.1-20.0) H 02/09/19 18:54 116 mg/dL (5-11.8) H 02/09/19 18:54 - Imaging Chest x-ray: report reviewed, image reviewed Medications & Allergies - Medications Allergies/Adverse Reactions: Allergies No Known Allergies Allergy (Verified 08/18/18 09:04) Home Medications: Home Medications Medication Instructions Recorded Confirmed Last Taken Type Levothyroxine [Synthroid] 112 mcg PO QAM 02/01/19 02/01/19 Unknown History Lisinopril [Zestril TAB] 40 mg PO QDAY 02/01/19 02/01/19 Unknown History amLODIPine [Norvasc] 10 mg PO DAILY 02/01/19 02/01/19 Unknown History cloNIDine [Catapres] 1 mg PO QDAY 02/01/19 02/01/19 Unknown History Active Medications: Generic Name Dose Route Start Last Admin Trade Name Freq PRN Reason Stop Dose Admin Acetaminophen 650 mg 02/01/19 10:47 02/11/19 04:30 Tylenol PO 650 mg Q4H PRN Administration Pain MILD(1-3)/Fever >100.5/VALENZUELA Albuterol 2.5 mg 02/01/19 10:47 Proventil IH Q4HRT PRN Shortness Of Breath Albuterol/Ipratropium 1 ampul 02/01/19 12:00 02/12/19 08:41 Duoneb *Not For Prn Use* IH 1 ampul Q6HRT AMOL Administration Lipase/Protease/Amylase 1 each 02/05/19 11:04 Pancreemeka Hammond 10,500 Unit FEEDTUBE PRN PRN For Clogged Feeding Tube Dexamethasone 4 mg 02/11/19 22:00 02/12/19 09:24 Decadron IV 4 mg Q12HR AMOL Administration Famotidine 20 mg 02/12/19 10:00 02/12/19 09:24 Pepcid PO 20 mg BID AMOL Administration Folic Acid 1 mg 02/06/19 10:00 02/12/19 09:25 Folvite PO 1 mg QDAY AMOL Administration Hydrophilic Ointment 1 applic 02/01/19 11:09 02/02/19 16:50 Vaseline Lip Therapy TP 1 applic Q2HR PRN Administration Dry Lips Ceftriaxone Sodium 2 gm in 100 mls @ 200 mls/hr 02/05/19 13:00 02/12/19 09:24 Rocephin/Ns 2 Gm/100 Ml IV 100 mls/hr Q12HR AMOL Administration Protocol Diltiazem HCl 100 mg in 100 mls @ 5 mls/hr 02/07/19 12:30 02/11/19 23:26 Cardizem/D5w 100mg/100ml IV 5 mg/hr TITR AMOL 5 mls/hr Administration Protocol 5 MG/HR Sodium Chloride 1,000 mls @ 150 mls/hr 02/12/19 10:00 02/12/19 09:23 Nacl 0.45% 1000 Ml IV 150 mls/hr DIRECT AMOL Administration Insulin Glargine 30 units 02/11/19 16:36 02/11/19 23:21 Lantus SUB-Q 30 units QHS AMOL Administration Insulin Human Regular 0 units 02/10/19 19:00 02/12/19 06:47 Humulin R SUB-Q 10 units Q6HR AMOL Administration Protocol Levothyroxine Sodium 125 mcg 02/07/19 10:00 02/12/19 09:24 Synthroid PO 125 mcg QAM AMOL Administration Multi-Ingred Cream/Lotion/Oil/Oint 1 applic 02/01/19 11:09 02/08/19 21:18 Artificial Tears Ophth Oint OU 1 applic Q4HR PRN Administration Dry Eye(s) Multivitamins 5 ml 02/06/19 10:00 02/12/19 09:23 Centrum Liq PO 5 ml QDAY AMOL Administration Ondansetron HCl 4 mg 02/01/19 10:47 Zofran IV Q8H PRN Nausea And Vomiting Simple Syrup 15 ml 02/05/19 11:04 Simple Syrup FEEDTUBE PRN PRN Hypoglycemia Simple Syrup 30 ml 02/05/19 11:04 Simple Syrup FEEDTUBE PRN PRN Hypoglycemia Sodium Bicarbonate 325 mg 02/05/19 11:04 Sodium Bicarbonate FEEDTUBE PRN PRN For Clogged Feeding Tube Sodium Chloride 10 ml 02/01/19 22:00 02/12/19 09:25 Sodium Chloride Flush Syringe 10 Ml IV 10 ml BID AMOL Administration Sodium Chloride 10 ml 02/01/19 10:47 Sodium Chloride Flush Syringe 10 Ml IV PRN PRN LINE FLUSH
--- NOTE | 2019-02-12 11:00 | Progress Note ---
Assessment and Plan 53 y/o female with strep pneumonae bacteremia, meningitis and now stroke with acute respiratory failure and continued azotemia. 1. Neuro: Mental state appears to be improving. Found out this am that patient had actually been pulsed with steroids on the and but was stopped after this. I restarted steroids on not knowing about the pulse doses. Renal did decrease this dose secondary to a bump in BUN but remains on decadron. At this point, unsure if steroids helped or if the patient started waking up on her own. Given improvement, would like to continue as long as it isnt compromising renal function. 2. MSK: Will consult PT now that patient is awake. She did have a large stroke on the right. Unable to get patient to follow commands outside of tracking with eyes but maybe a good candidate for some passive range of motion activities. 3. Renal: Cr improving but BUN remains elevated. BUN was elevated prior to starting of current decadron dosing. Follow up any new renal recs. Will ask renal if weir is still needed. 4. CV-remains on dilt drip at 5. Reviewed cards note from yesterday. Await to see if they will eval today or not. If not, then we will change to PO dilt 30q6 and stop the continuous drip 5. Tolerating feeds 6. Overall prognosis remains guarded, however good that patient is awake. Will see how she does the next 48 hours in regards to vent, vent mechanics and overall strength. She may be extubatable but if weakness is pronounced, trach and peg maybe better for her in the long run. Total critical care time 31 minutes Subjective Date of service: 02/12/19 Principal diagnosis: h/o anemia Interval history: Patient is awake today. Will track but not able to squeeze hand or wiggle toes. Currently on PSV and tolerating. Sustained for several hours of PSV on yesterday. Objective Vital Signs - 12hr 02/11/19 02/11/19 02/12/19 23:00 23:30 00:00 Temperature 99.0 F Pulse Rate 74 82 89 Pulse Rate [ Anterior Bilateral Throughout] Pulse Rate [ 76 From Monitor] Respiratory 21 20 22 Rate Respiratory Rate [Anterior Bilateral Throughout] Blood Pressure 133/75 146/83 143/78 O2 Sat by Pulse 98 98 97 Oximetry 02/12/19 02/12/1919 00:10 00:30 01:01 Temperature Pulse Rate 92 H 110 H 95 H Pulse Rate [ Anterior Bilateral Throughout] Pulse Rate [ From Monitor] Respiratory 25 H 24 Rate Respiratory Rate [Anterior Bilateral Throughout] Blood Pressure 148/85 144/81 144/80 O2 Sat by Pulse 99 97 97 Oximetry 02/12/19 02/12/19 02/12/19 01:31 02:00 02:18 Temperature Pulse Rate 85 90 Pulse Rate [ 91 H Anterior Bilateral Throughout] Pulse Rate [ From Monitor] Respiratory 23 24 Rate Respiratory 23 Rate [Anterior Bilateral Throughout] Blood Pressure 127/61 146/76 O2 Sat by Pulse 98 98 Oximetry 02/12/19 02/12/19 02/12/19 02:31 03:00 03:31 Temperature Pulse Rate 86 87 88 Pulse Rate [ Anterior Bilateral Throughout] Pulse Rate [ From Monitor] Respiratory 19 23 22 Rate Respiratory Rate [Anterior Bilateral Throughout] Blood Pressure 143/79 156/85 142/77 O2 Sat by Pulse 100 98 99 Oximetry 02/12/19 02/12/19 02/12/19 04:00 04:30 05:00 Temperature 98.5 F Pulse Rate 85 84 76 Pulse Rate [ Anterior Bilateral Throughout] Pulse Rate [ 80 From Monitor] Respiratory 25 H 22 18 Rate Respiratory Rate [Anterior Bilateral Throughout] Blood Pressure 143/74 130/74 134/68 O2 Sat by Pulse 98 99 100 Oximetry 02/12/19 02/12/19 02/12/19 05:31 06:00 06:30 Temperature Pulse Rate 81 81 75 Pulse Rate [ Anterior Bilateral Throughout] Pulse Rate [ From Monitor] Respiratory 18 19 18 Rate Respiratory Rate [Anterior Bilateral Throughout] Blood Pressure 134/72 135/81 134/76 O2 Sat by Pulse 99 99 99 Oximetry 02/12/19 02/12/19 02/12/19 07:00 07:30 08:00 Temperature 97.8 F Pulse Rate 73 73 74 Pulse Rate [ Anterior Bilateral Throughout] Pulse Rate [ 84 From Monitor] Respiratory 19 17 20 Rate Respiratory Rate [Anterior Bilateral Throughout] Blood Pressure 131/71 140/70 135/69 O2 Sat by Pulse 99 98 100 Oximetry 02/12/19 02/12/19 02/12/19 08:31 08:41 09:00 Temperature Pulse Rate 89 88 89 Pulse Rate [ 81 Anterior Bilateral Throughout] Pulse Rate [ From Monitor] Respiratory 21 18 Rate Respiratory 20 Rate [Anterior Bilateral Throughout] Blood Pressure 143/80 155/71 145/76 O2 Sat by Pulse 99 100 99 Oximetry Constitutional: other (orally intubated on mechanical ventilator. Not on sedation, awake, critically ill) Eyes: non-icteric ENT: oropharynx moist Neck: supple Effort: normal Ascultation: Bilateral: other (coarse BS bilaterally) Cardiovascular: other (tachy, RR; no mrg) Gastrointestinal: normoactive bowel sounds, soft, non-tender, non-distended Integumentary: normal Extremities: no cyanosis, no edema, pink and warm Neurologic: other (eyes open, not following commands or moving extremities) Psychiatric: other (unable to assess) CBC and BMP: 02/12/19 05:36 02/12/19 05:36 ABG, PT/INR, D-dimer: ABG POC ABG pH 7.418 (7.35-7.45) 02/12/19 05:36 ABG pH 7.440 pH Units (7.350-7.450) 02/11/19 04:10 POC ABG pCO2 36.9 (35-45) 02/12/19 05:36 ABG pCO2 37.4 mm Hg 02/11/19 04:10 POC ABG pO2 92 (80-105) 02/12/19 05:36 ABG pO2 69.4 mm Hg (80.0-90.0) L 02/11/19 04:10 POC ABG HCO3 23.8 (22-26 mml/L) 02/12/19 05:36 POC ABG Total CO2 25 (23-27mmol/L) 02/12/19 05:36 POC ABG O2 Sat 97 02/12/19 05:36 ABG O2 Saturation 94.2 % (95.0-99.0) L 02/11/19 04:10 PT/INR, D-dimer PT 16.3 Sec. (12.2-14.9) H 02/06/19 07:35 INR 1.35 (0.87-1.13) H 02/06/19 07:35 Abnormal lab findings: Abnormal Labs 02/01/19 02/01/19 02/01/19 07:16 07:16 07:16 WBC 17.7 H RBC Hgb Hct RDW 16.9 H Plt Count 62 L Seg Neuts % (Manual) 95.0 H Lymphocytes % (Manual) 0 L Seg Neutrophils # Man 16.8 H Lymphocytes # (Manual) 0.0 L PT 15.0 H INR 1.21 H APTT Thrombin Time 20.0 H POC ABG pH ABG pH POC ABG pCO2 POC ABG pO2 ABG pO2 ABG HCO3 ABG O2 Saturation ABG Base Excess ABG Hemoglobin Oxyhemoglobin Sodium 135 L Potassium Chloride 97.7 L Carbon Dioxide 19 L BUN 51 H Creatinine 4.5 H Glucose 112 H POC Glucose Lactic Acid Calcium Iron TIBC Direct Bilirubin AST Alkaline Phosphatase Troponin T 0.181 H* C-Reactive Protein Total Protein Albumin LDL Cholesterol Direct 34 L HDL Cholesterol 20 L Vitamin B12 Folate TSH Urine WBC (Auto) Urine Creatinine Urine Total Protein CHESTER Screen CHESTER Titer Complement C3 Complement C4 02/01/19 02/01/19 02/01/19 07:29 07:29 07:43 WBC RBC Hgb Hct RDW Plt Count Seg Neuts % (Manual) Lymphocytes % (Manual) Seg Neutrophils # Man Lymphocytes # (Manual) PT INR APTT Thrombin Time POC ABG pH ABG pH POC ABG pCO2 POC ABG pO2 ABG pO2 ABG HCO3 ABG O2 Saturation ABG Base Excess ABG Hemoglobin Oxyhemoglobin Sodium Potassium Chloride Carbon Dioxide BUN Creatinine Glucose POC Glucose Lactic Acid 4.80 H* Calcium Iron TIBC Direct Bilirubin 0.7 H AST 42 H Alkaline Phosphatase Troponin T C-Reactive Protein Total Protein 8.9 H Albumin 2.3 L LDL Cholesterol Direct HDL Cholesterol Vitamin B12 Folate TSH 8.470 H Urine WBC (Auto) Urine Creatinine Urine Total Protein CHESTER Screen CHESTER Titer Complement C3 Complement C4 02/01/19 02/01/19 02/01/19 09:45 11:32 13:50 WBC RBC Hgb Hct RDW Plt Count Seg Neuts % (Manual) Lymphocytes % (Manual) Seg Neutrophils # Man Lymphocytes # (Manual) PT INR APTT Thrombin Time POC ABG pH 7.289 L ABG pH POC ABG pCO2 POC ABG pO2 355 H ABG pO2 ABG HCO3 ABG O2 Saturation ABG Base Excess ABG Hemoglobin Oxyhemoglobin Sodium Potassium Chloride Carbon Dioxide BUN Creatinine Glucose POC Glucose Lactic Acid 4.10 H* Calcium Iron TIBC Direct Bilirubin AST Alkaline Phosphatase Troponin T C-Reactive Protein Total Protein Albumin LDL Cholesterol Direct HDL Cholesterol Vitamin B12 Folate TSH Urine WBC (Auto) 16.0 H Urine Creatinine Urine Total Protein CHE[place] Screen CHESTER Titer Complement C3 Complement C4 02/01/19 02/01/19 02/01/19 15:15 16:20 16:51 WBC RBC Hgb Hct RDW Plt Count Seg Neuts % (Manual) Lymphocytes % (Manual) Seg Neutrophils # Man Lymphocytes # (Manual) PT INR APTT Thrombin Time POC ABG pH ABG pH POC ABG pCO2 POC ABG pO2 ABG pO2 ABG HCO3 ABG O2 Saturation ABG Base Excess ABG Hemoglobin Oxyhemoglobin Sodium Potassium Chloride Carbon Dioxide BUN Creatinine Glucose POC Glucose 115 H Lactic Acid 4.50 H* Calcium Iron TIBC Direct Bilirubin AST Alkaline Phosphatase Troponin T C-Reactive Protein Total Protein Albumin LDL Cholesterol Direct HDL Cholesterol Vitamin B12 Folate TSH Urine WBC (Auto) Urine Creatinine Urine Total Protein CHESTER Screen CHESTER Titer Complement C3 36 L Complement C4 02/01/19 02/01/19 02/01/19 16:51 17:03 17:04 WBC RBC Hgb Hct RDW Plt Count Seg Neuts % (Manual) Lymphocytes % (Manual) Seg Neutrophils # Man Lymphocytes # (Manual) PT INR APTT Thrombin Time POC ABG pH ABG pH POC ABG pCO2 POC ABG pO2 ABG pO2 ABG HCO3 ABG O2 Saturation ABG Base Excess ABG Hemoglobin Oxyhemoglobin Sodium Potassium Chloride Carbon Dioxide BUN Creatinine Glucose POC Glucose Lactic Acid 2.80 H* Calcium Iron TIBC Direct Bilirubin AST Alkaline Phosphatase Troponin T C-Reactive Protein 32.30 H Total Protein Albumin LDL Cholesterol Direct HDL Cholesterol Vitamin B12 Folate TSH Urine WBC (Auto) Urine Creatinine Urine Total Protein [place] Screen [place] Titer Complement C3 Complement C4 12 L 02/01/19 02/01/19 02/02/19 17:04 19:28 05:16 WBC RBC Hgb Hct RDW Plt Count Seg Neuts % (Manual) Lymphocytes % (Manual) Seg Neutrophils # Man Lymphocytes # (Manual) PT INR APTT Thrombin Time POC ABG pH ABG pH POC ABG pCO2 POC ABG pO2 148 H ABG pO2 ABG HCO3 ABG O2 Saturation ABG Base Excess ABG Hemoglobin Oxyhemoglobin Sodium Potassium Chloride 107.1 H Carbon Dioxide 18 L BUN 52 H Creatinine 3.1 H Glucose 120 H POC Glucose Lactic Acid Calcium 7.4 L Iron TIBC Direct Bilirubin AST Alkaline Phosphatase Troponin T C-Reactive Protein Total Protein Albumin LDL Cholesterol Direct HDL Cholesterol Vitamin B12 Folate TSH Urine WBC (Auto) Urine Creatinine Urine Total Protein CHESTER Screen Positive H CHESTER Titer 1:320 H Complement C3 Complement C4 02/02/19 02/02/19 02/03/19 05:53 05:53 03:30 WBC 14.3 H RBC 5.16 H Hgb 14.9 H Hct 46.2 H D RDW 16.9 H 17.0 H Plt Count 43 L 18 L* Seg Neuts % (Manual) 93.0 H Lymphocytes % (Manual) 2.0 L Seg Neutrophils # Man 13.3 H Lymphocytes # (Manual) 0.3 L PT INR APTT Thrombin Time POC ABG pH ABG pH POC ABG pCO2 POC ABG pO2 ABG pO2 ABG HCO3 ABG O2 Saturation ABG Base Excess ABG Hemoglobin Oxyhemoglobin Sodium Potassium 5.1 H Chloride Carbon Dioxide 21 L BUN 57 H Creatinine 3.3 H Glucose 147 H POC Glucose Lactic Acid Calcium 7.5 L Iron TIBC Direct Bilirubin AST 51 H Alkaline Phosphatase Troponin T C-Reactive Protein Total Protein Albumin 1.6 L LDL Cholesterol Direct HDL Cholesterol Vitamin B12 Folate TSH Urine WBC (Auto) Urine Creatinine Urine Total Protein CHESTER Screen [place] Titer Complement C3 Complement C4 02/03/19 02/03/19 02/03/19 03:30 05:55 14:42 WBC RBC Hgb Hct RDW Plt Count Seg Neuts % (Manual) Lymphocytes % (Manual) Seg Neutrophils # Man Lymphocytes # (Manual) PT INR APTT Thrombin Time POC ABG pH ABG pH POC ABG pCO2 POC ABG pO2 117 H ABG pO2 ABG HCO3 ABG O2 Saturation ABG Base Excess ABG Hemoglobin Oxyhemoglobin Sodium Potassium Chloride Carbon Dioxide BUN 65 H Creatinine 2.7 H Glucose 117 H POC Glucose Lactic Acid Calcium 7.2 L Iron TIBC Direct Bilirubin AST Alkaline Phosphatase Troponin T C-Reactive Protein Total Protein Albumin LDL Cholesterol Direct HDL Cholesterol Vitamin B12 1468 H Folate TSH Urine WBC (Auto) Urine Creatinine Urine Total Protein [place] Screen [place] Titer Complement C3 Complement C4 02/03/19 02/03/19 02/03/19 14:42 14:42 14:42 WBC RBC 3.17 L Hgb 9.4 L D Hct 28.3 L D RDW 16.9 H Plt Count 18 L* Seg Neuts % (Manual) Lymphocytes % (Manual) Seg Neutrophils # Man Lymphocytes # (Manual) PT INR APTT Thrombin Time POC ABG pH ABG pH POC ABG pCO2 POC ABG pO2 ABG pO2 ABG HCO3 ABG O2 Saturation ABG Base Excess ABG Hemoglobin Oxyhemoglobin Sodium Potassium Chloride Carbon Dioxide BUN Creatinine Glucose POC Glucose Lactic Acid Calcium Iron 11 L TIBC 88 L Direct Bilirubin AST Alkaline Phosphatase Troponin T C-Reactive Protein Total Protein Albumin LDL Cholesterol Direct HDL Cholesterol Vitamin B12 Folate 5.18 L TSH Urine WBC (Auto) Urine Creatinine Urine Total Protein [place] Screen [place] Titer Complement C3 Complement C4 02/03/19 02/03/19 02/04/19 14:42 14:42 03:35 WBC RBC 3.22 L Hgb 9.5 L Hct 28.5 L RDW 16.4 H Plt Count 18 L* Seg Neuts % (Manual) Lymphocytes % (Manual) Seg Neutrophils # Man Lymphocytes # (Manual) PT 15.8 H INR 1.29 H APTT 38.2 H Thrombin Time POC ABG pH ABG pH 7.470 H POC ABG pCO2 POC ABG pO2 ABG pO2 ABG HCO3 28.4 H ABG O2 Saturation ABG Base Excess 4.5 H ABG Hemoglobin 10.1 L Oxyhemoglobin 94.7 L Sodium Potassium Chloride Carbon Dioxide BUN Creatinine Glucose POC Glucose Lactic Acid Calcium Iron TIBC Direct Bilirubin AST Alkaline Phosphatase Troponin T C-Reactive Protein Total Protein Albumin LDL Cholesterol Direct HDL Cholesterol Vitamin B12 Folate TSH Urine WBC (Auto) Urine Creatinine Urine Total Protein CHESTER Screen [place] Titer Complement C3 Complement C4 02/04/19 02/04/19 02/05/19 05:02 05:02 03:50 WBC RBC Hgb Hct RDW 16.5 H Plt Count 20 L Seg Neuts % (Manual) 94.0 H Lymphocytes % (Manual) 2.0 L Seg Neutrophils # Man 9.2 H Lymphocytes # (Manual) 0.2 L PT INR APTT Thrombin Time POC ABG pH ABG pH 7.485 H POC ABG pCO2 POC ABG pO2 ABG pO2 ABG HCO3 27.5 H ABG O2 Saturation ABG Base Excess 3.9 H ABG Hemoglobin 9.1 L Oxyhemoglobin 94.8 L Sodium Potassium Chloride Carbon Dioxide BUN 66 H Creatinine 1.7 H Glucose 127 H POC Glucose Lactic Acid Calcium 7.6 L Iron TIBC Direct Bilirubin AST Alkaline Phosphatase Troponin T C-Reactive Protein Total Protein Albumin LDL Cholesterol Direct HDL Cholesterol Vitamin B12 Folate TSH Urine WBC (Auto) Urine Creatinine Urine Total Protein CHE[place] Screen [place] Titer Complement C3 Complement C4 02/05/19 02/05/19 02/05/19 13:02 14:36 20:03 WBC 11.7 H RBC 3.48 L 3.24 L Hgb 10.0 L 9.4 L Hct 29.2 L RDW 16.3 H 16.3 H Plt Count 50 L D 71 L Seg Neuts % (Manual) 95.0 H 95.0 H Lymphocytes % (Manual) 0 L 2.0 L Seg Neutrophils # Man 11.1 H 10.2 H Lymphocytes # (Manual) 0.0 L 0.2 L PT INR APTT Thrombin Time POC ABG pH ABG pH POC ABG pCO2 POC ABG pO2 ABG pO2 ABG HCO3 ABG O2 Saturation ABG Base Excess ABG Hemoglobin Oxyhemoglobin Sodium Potassium Chloride Carbon Dioxide BUN 67 H Creatinine 1.5 H Glucose POC Glucose Lactic Acid Calcium 7.7 L Iron TIBC Direct Bilirubin AST Alkaline Phosphatase Troponin T C-Reactive Protein Total Protein Albumin LDL Cholesterol Direct HDL Cholesterol Vitamin B12 Folate TSH Urine WBC (Auto) Urine Creatinine Urine Total Protein [place] Screen [place] Titer Complement C3 Complement C4 02/06/19 02/06/19 02/06/19 05:39 07:35 18:34 WBC RBC Hgb Hct RDW Plt Count Seg Neuts % (Manual) Lymphocytes % (Manual) Seg Neutrophils # Man Lymphocytes # (Manual) PT 16.3 H INR 1.35 H APTT Thrombin Time POC ABG pH ABG pH POC ABG pCO2 POC ABG pO2 ABG pO2 ABG HCO3 ABG O2 Saturation ABG Base Excess ABG Hemoglobin Oxyhemoglobin Sodium Potassium Chloride Carbon Dioxide BUN Creatinine Glucose POC Glucose 107 H 121 H Lactic Acid Calcium Iron TIBC Direct Bilirubin AST Alkaline Phosphatase Troponin T C-Reactive Protein Total Protein Albumin LDL Cholesterol Direct HDL Cholesterol Vitamin B12 Folate TSH Urine WBC (Auto) Urine Creatinine Urine Total Protein [place] Screen [place] Titer Complement C3 Complement C4 02/06/19 02/07/19 02/07/19 Unknown 01:07 04:15 WBC RBC Hgb Hct RDW Plt Count Seg Neuts % (Manual) Lymphocytes % (Manual) Seg Neutrophils # Man Lymphocytes # (Manual) PT INR APTT Thrombin Time POC ABG pH ABG pH POC ABG pCO2 POC ABG pO2 ABG pO2 ABG HCO3 ABG O2 Saturation ABG Base Excess ABG Hemoglobin 5.0 L Oxyhemoglobin 94.9 L 94.8 L Sodium 146 H Potassium Chloride Carbon Dioxide BUN 85 H Creatinine 1.8 H Glucose 163 H POC Glucose Lactic Acid Calcium 8.3 L Iron TIBC Direct Bilirubin AST Alkaline Phosphatase Troponin T C-Reactive Protein Total Protein Albumin LDL Cholesterol Direct HDL Cholesterol Vitamin B12 Folate TSH Urine WBC (Auto) Urine Creatinine Urine Total Protein [place] Screen [place] Titer Complement C3 Complement C4 02/07/19 02/07/19 02/08/19 08:22 10:58 04:40 WBC RBC Hgb Hct RDW 16.0 H Plt Count 84 L Seg Neuts % (Manual) 97.0 H Lymphocytes % (Manual) 0 L Seg Neutrophils # Man 9.5 H Lymphocytes # (Manual) 0.0 L PT INR APTT Thrombin Time POC ABG pH 7.477 H ABG pH 7.467 H POC ABG pCO2 34.8 L POC ABG pO2 118 H ABG pO2 ABG HCO3 ABG O2 Saturation ABG Base Excess ABG Hemoglobin 8.4 L Oxyhemoglobin Sodium Potassium Chloride Carbon Dioxide BUN Creatinine Glucose POC Glucose Lactic Acid Calcium Iron TIBC Direct Bilirubin AST Alkaline Phosphatase Troponin T C-Reactive Protein Total Protein Albumin LDL Cholesterol Direct HDL Cholesterol Vitamin B12 Folate TSH Urine WBC (Auto) Urine Creatinine Urine Total Protein [place] Screen CHE[place] Titer Complement C3 Complement C4 02/09/19 02/09/19 02/09/19 03:17 03:17 04:35 WBC 14.9 H RBC 3.32 L Hgb 9.6 L Hct RDW 15.9 H Plt Count 113 L Seg Neuts % (Manual) 96.0 H Lymphocytes % (Manual) 1.0 L Seg Neutrophils # Man 14.3 H Lymphocytes # (Manual) 0.1 L PT INR APTT Thrombin Time POC ABG pH ABG pH 7.478 H POC ABG pCO2 POC ABG pO2 ABG pO2 94.5 H ABG HCO3 ABG O2 Saturation ABG Base Excess ABG Hemoglobin 6.1 L Oxyhemoglobin Sodium 147 H Potassium Chloride 110.4 H Carbon Dioxide BUN 114 H Creatinine 2.2 H Glucose 270 H POC Glucose Lactic Acid Calcium 8.1 L Iron TIBC Direct Bilirubin AST Alkaline Phosphatase Troponin T C-Reactive Protein Total Protein Albumin 1.6 L LDL Cholesterol Direct HDL Cholesterol Vitamin B12 Folate TSH Urine WBC (Auto) Urine Creatinine Urine Total Protein [place] Screen [place] Titer Complement C3 Complement C4 02/09/19 02/09/19 02/10/19 13:35 18:54 05:13 WBC RBC Hgb Hct RDW Plt Count Seg Neuts % (Manual) Lymphocytes % (Manual) Seg Neutrophils # Man Lymphocytes # (Manual) PT INR APTT Thrombin Time POC ABG pH ABG pH 7.478 H POC ABG pCO2 POC ABG pO2 ABG pO2 ABG HCO3 ABG O2 Saturation ABG Base Excess ABG Hemoglobin 8.1 L Oxyhemoglobin 94.9 L Sodium Potassium Chloride Carbon Dioxide BUN Creatinine Glucose POC Glucose Lactic Acid Calcium Iron TIBC Direct Bilirubin AST Alkaline Phosphatase Troponin T C-Reactive Protein Total Protein Albumin LDL Cholesterol Direct HDL Cholesterol Vitamin B12 Folate TSH Urine WBC (Auto) 10.0 H Urine Creatinine 92.9 H Urine Total Protein 116 H CHE[place] Screen CHE[place] Titer Complement C3 Complement C4 02/10/19 02/10/19 02/11/19 18:14 23:24 04:10 WBC RBC Hgb Hct RDW Plt Count Seg Neuts % (Manual) Lymphocytes % (Manual) Seg Neutrophils # Man Lymphocytes # (Manual) PT INR APTT Thrombin Time POC ABG pH ABG pH POC ABG pCO2 POC ABG pO2 ABG pO2 69.4 L ABG HCO3 ABG O2 Saturation 94.2 L ABG Base Excess ABG Hemoglobin 11.0 L Oxyhemoglobin 92.1 L Sodium Potassium Chloride Carbon Dioxide BUN Creatinine Glucose POC Glucose 453 H 403 H Lactic Acid Calcium Iron TIBC Direct Bilirubin AST Alkaline Phosphatase Troponin T C-Reactive Protein Total Protein Albumin LDL Cholesterol Direct HDL Cholesterol Vitamin B12 Folate TSH Urine WBC (Auto) Urine Creatinine Urine Total Protein [place] Screen [place] Titer Complement C3 Complement C4 02/11/19 02/11/19 02/11/19 04:54 04:54 05:40 WBC 12.5 H RBC 3.18 L Hgb 9.4 L Hct 29.4 L RDW 16.6 H Plt Count Seg Neuts % (Manual) 94.0 H Lymphocytes % (Manual) 4.0 L Seg Neutrophils # Man 11.8 H Lymphocytes # (Manual) 0.5 L PT INR APTT Thrombin Time POC ABG pH ABG pH POC ABG pCO2 POC ABG pO2 ABG pO2 ABG HCO3 ABG O2 Saturation ABG Base Excess ABG Hemoglobin Oxyhemoglobin Sodium 151 H Potassium Chloride 112.6 H Carbon Dioxide BUN 127 H Creatinine 1.8 H Glucose 396 H POC Glucose 410 H Lactic Acid Calcium 8.3 L Iron TIBC Direct Bilirubin AST Alkaline Phosphatase 132 H Troponin T C-Reactive Protein Total Protein Albumin 2.1 L LDL Cholesterol Direct HDL Cholesterol Vitamin B12 Folate TSH Urine WBC (Auto) Urine Creatinine Urine Total Protein [place] Screen [place] Titer Complement C3 Complement C4 02/11/19 02/11/19 02/11/19 11:30 17:58 23:18 WBC RBC Hgb Hct RDW Plt Count Seg Neuts % (Manual) Lymphocytes % (Manual) Seg Neutrophils # Man Lymphocytes # (Manual) PT INR APTT Thrombin Time POC ABG pH ABG pH POC ABG pCO2 POC ABG pO2 ABG pO2 ABG HCO3 ABG O2 Saturation ABG Base Excess ABG Hemoglobin Oxyhemoglobin Sodium Potassium Chloride Carbon Dioxide BUN Creatinine Glucose POC Glucose 361 H 414 H 392 H Lactic Acid Calcium Iron TIBC Direct Bilirubin AST Alkaline Phosphatase Troponin T C-Reactive Protein Total Protein Albumin LDL Cholesterol Direct HDL Cholesterol Vitamin B12 Folate TSH Urine WBC (Auto) Urine Creatinine Urine Total Protein [place] Screen [place] Titer Complement C3 Complement C4 02/12/19 02/12/19 02/12/19 05:32 05:36 05:36 WBC 11.9 H RBC 3.40 L Hgb 9.9 L Hct RDW 16.4 H Plt Count Seg Neuts % (Manual) 97.0 H Lymphocytes % (Manual) 2.0 L Seg Neutrophils # Man 11.5 H Lymphocytes # (Manual) 0.2 L PT INR APTT Thrombin Time POC ABG pH ABG pH POC ABG pCO2 POC ABG pO2 ABG pO2 ABG HCO3 ABG O2 Saturation ABG Base Excess ABG Hemoglobin Oxyhemoglobin Sodium 146 H Potassium 3.5 L Chloride 110.2 H Carbon Dioxide BUN 118 H Creatinine 1.4 H Glucose 382 H POC Glucose 361 H Lactic Acid Calcium 8.3 L Iron TIBC Direct Bilirubin AST Alkaline Phosphatase 137 H Troponin T C-Reactive Protein Total Protein Albumin 2.0 L LDL Cholesterol Direct HDL Cholesterol Vitamin B12 Folate TSH Urine WBC (Auto) Urine Creatinine Urine Total Protein [place] Screen [place] Titer Complement C3 Complement C4
--- NOTE | 2019-02-12 11:25 | Progress Note ---
Assessment and Plan Cultures: 02/01/2019 blood culture: Strep pneumoniae in 4/4 bottles 02/01/2019 urine culture: no growth 02/01/2019 tracheal aspirate: Strep species 02/02/2019 blood culture: no growth 02/05/2019 CSF culture: no growth 02/01/2019 C3: 36 (low) 02/01/2019 C4: 12 (low) CHESTER positive 1:320 HIV: non reactive RPR: non reactive Hepatitis panel: non reactive Bartonella serology: negative A/P: 53-year-old female with hypothyroidism, hypertension, ?autoimmune disease. Admitted with: 1) Severe sepsis with Strep pneumoniae bacteremia, pneumonia and meningitis: TTE showed some ?pulmonic valve vegetation. TERRENCE was negative for vegetations per cardiology. CSF shows WBC 1250, RBC 30, PMN 30%, Glucose 38, Protein 140. 2) Right neck severe lymphadenopathy: CT neck was without contrast, hence limited eval of vasculature. Neck US revealed extensive R neck lymphadenopathy, no abscess. HIV, RPR negative. Bartonella serologies negative. On 02/07/2019, patient's mother showed me paperwork from patient's PCP, patient was seen on 01/30/2019 at PCP office for R neck lump, was given medrol dose kevin and ultrasound was ordered. Once creatinine improves, may need CT chest, abdomen pelvis with IV contrast to evaluate for other lymphadenopathy, although the lymphadenopathy may be from lupus. 3) Bilateral pneumonia: sputum culture also growing Strep, likely Strep pneumoniae. 4) Acute renal failure: Nephrology following. Creatinine worse today. 5) ?Autoimmune disease: likely lupus. C3, C4 came back low. CHESTER positive 1:320. ANCA negative. 6) Thrombocytopenia: improved. Hematology following. Sepsis v/s autoimmune in etiology. 7) Acute encephalopathy: secondary to meningitis. MRI brain showed acute ischemic changes in the posterior distribution of the R MCA, right frontal and parietal deep white matter and left frontal deep white matter, additional foci of ischemic change in b/l cerebellar hemispheres. 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 CHESTER positive 1:320 suggestive of lupus. ds-DNA pending She is out of the window for steroids as adjunctive therapy for Pneumococcal meningitis, however, mental status remains poor and with underlying autoimmune disease and ?renal dysfunction, OK from ID standpoint for steroids. Was started on Dexamethasone 02/09/2019 Overall guarded prognosis Will follow. Edith Mi MD [facility], [place], Operated [facility] ([facility]) M: [phone] O: [phone] F: [phone] Subjective Date of service: 02/12/19 Principal diagnosis: h/o anemia Interval history: Afebrile, no acute change. Objective - Exam Narrative Exam: Physical Exam: Constitutional: opens eyes, tracking, not following commands, intubated Head, Ears, Nose: Normocephalic, atraumatic. External ears, nose normal Eyes: Conjunctivae/corneas clear. No icterus. No ptosis. Neck: R cervical lymphadenopathy, moderately improved Oral: intubated Cardiovascular: S1, S2 normal, irregular Respiratory: AE clear bilaterally, no wheeze GI: Soft, non-tender; bowel sounds normal. No peritoneal signs Musculoskeletal: No pedal edema, no cyanosis. Skin: No rash or abscess Hem/Lymphatic: No palpable cervical or supraclavicular nodes. No lymphangitis Psych: no agitation Neurological: opens eyes, tracking, not following commands, on the vent - Constitutional Vitals: Vital Signs Temp Pulse Resp BP Pulse Ox 97.8 F 84 22 137/82 99 02/12/19 08:00 02/12/19 11:01 02/12/19 11:01 02/12/19 11:01 02/12/19 11:01 Temperature -Last 24 Hours Temperature 97.8 F Temperature 98.5 F Temperature 99.0 F Temperature 98.8 F Temperature 97.0 F Temperature 98.0 F - Labs CBC & Chem 7: 02/12/19 05:36 02/12/19 05:36 Labs: Abnormal lab results 02/11/19 02/11/19 02/11/19 Range/Units 11:30 17:58 23:18 WBC (4.5-11.0) K/mm3 RBC (3.65-5.03) M/mm3 Hgb (10.1-14.3) gm/dl RDW (13.2-15.2) % Seg Neuts % (Manual) (40.0-70.0) % Lymphocytes % (Manual) (13.4-35.0) % Seg Neutrophils # Man (1.8-7.7) K/mm3 Lymphocytes # (Manual) (1.2-5.4) K/mm3 Sodium (137-145) mmol/L Potassium (3.6-5.0) mmol/L Chloride (98-107) mmol/L BUN (7-17) mg/dL Creatinine (0.7-1.2) mg/dL Glucose (65-100) mg/dL POC Glucose 361 H 414 H 392 H (70-105) Calcium (8.4-10.2) mg/dL Alkaline Phosphatase (35-129) units/L Albumin (3.9-5) g/dL 02/12/19 02/12/19 02/12/19 Range/Units 05:32 05:36 05:36 WBC 11.9 H (4.5-11.0) K/mm3 RBC 3.40 L (3.65-5.03) M/mm3 Hgb 9.9 L (10.1-14.3) gm/dl RDW 16.4 H (13.2-15.2) % Seg Neuts % (Manual) 97.0 H (40.0-70.0) % Lymphocytes % (Manual) 2.0 L (13.4-35.0) % Seg Neutrophils # Man 11.5 H (1.8-7.7) K/mm3 Lymphocytes # (Manual) 0.2 L (1.2-5.4) K/mm3 Sodium 146 H (137-145) mmol/L Potassium 3.5 L (3.6-5.0) mmol/L Chloride 110.2 H (98-107) mmol/L BUN 118 H (7-17) mg/dL Creatinine 1.4 H (0.7-1.2) mg/dL Glucose 382 H (65-100) mg/dL POC Glucose 361 H (70-105) Calcium 8.3 L (8.4-10.2) mg/dL Alkaline Phosphatase 137 H (35-129) units/L Albumin 2.0 L (3.9-5) g/dL
--- NOTE | 2019-02-12 11:53 | Progress Note ---
Assessment and Plan Currently stable cardiac status. Convert cardizem gtt to PO cardizem and titrate as necessary. The patient has been seen in conjunction with Dr. Hodge who agrees with the assessment and plan of care. - Patient Problems (1) Sepsis Current Visit: Yes Status: Acute (2) Bacteremia Current Visit: Yes Status: Acute (3) Meningitis Current Visit: Yes Status: Acute (4) Pneumonia Current Visit: Yes Status: Acute (5) Acute respiratory failure Current Visit: Yes Status: Acute (6) Atrial fibrillation with RVR Current Visit: Yes Status: Resolved (7) Altered mental status Current Visit: Yes Status: Acute (8) Cellulitis, neck Current Visit: Yes Status: Acute (9) Thrombocytopenia Current Visit: Yes Status: Acute (10) DIANA (acute kidney injury) Current Visit: Yes Status: Acute (11) PFO (patent foramen ovale) Current Visit: Yes Status: Chronic Subjective Date of service: 02/12/19 Principal diagnosis: h/o anemia Interval history: pt remains intubated, eyes open to commands but no purposeful response noted. in SR on tele with [facility] PACs. no family at bedside. on cardizem gtt @ 5mg/hr. Objective Last Vital Signs Temp 97.8 F 02/12/19 08:00 Pulse 84 02/12/19 11:01 Resp 22 02/12/19 11:01 BP 137/82 02/12/19 11:01 Pulse Ox 99 02/12/19 11:01 - Physical Examination General: Other (intubated, eyes open) HEENT: Positive: Normocephaly Neck: Positive: neck supple Cardiac: Positive: Reg Rate and Rhythm Neuro: Positive: Other (intubated, eyes open ) Abdomen: Positive: Unremarkable /Rectal: Other (deferred) Skin: Positive: Clear Musculoskeletal: Decreased Range of Motion Extremities: Present: normal - Labs and Meds Cardiac Enzymes 02/12/19 Range/Units 05:36 AST 33 (5-40) units/L CBC 02/12/19 Range/Units 05:36 WBC 11.9 H (4.5-11.0) K/mm3 RBC 3.40 L (3.65-5.03) M/mm3 Hgb 9.9 L (10.1-14.3) gm/dl Hct 31.6 (30.3-42.9) % Plt Count 199 (140-440) K/mm3 Comprehensive Metabolic Panel 02/12/19 Range/Units 05:36 Sodium 146 H (137-145) mmol/L Potassium 3.5 L (3.6-5.0) mmol/L Chloride 110.2 H (98-107) mmol/L Carbon Dioxide 24 (22-30) mmol/L BUN 118 H (7-17) mg/dL Creatinine 1.4 H (0.7-1.2) mg/dL Glucose 382 H (65-100) mg/dL Calcium 8.3 L (8.4-10.2) mg/dL AST 33 (5-40) units/L ALT 17 (7-56) units/L Alkaline Phosphatase 137 H (35-129) units/L Total Protein 6.8 (6.3-8.2) g/dL Albumin 2.0 L (3.9-5) g/dL - Imaging and Cardiology EKG: report reviewed, image reviewed Echo: report reviewed ( 02/02/2019 showed EF 55-60%, mild to mod LVH, atrial septal aneurysm, aortic valve heavily calcified, dense mitral annular calcification, mild MR, mild TR, mild OK, bubble study suggestive of PFO, ? pulmonic valve vegetation.) - EKG Ventricular dysrhythmias: ventricular premature com
[2019-02-12] MEDS ORDERED: dilTIAZem 30 MG TAB PO SCH (12:00)
[2019-02-12] MEDS: dilTIAZem 60 MG TAB PO SCH ×2 (12:06→21:01)
[2019-02-12] MEDS: INSULIN GLARGINE 100 UNITS/ML SUB-Q SCH (21:00)
[2019-02-12] MEDS: ACETAMINOPHEN 325 MG TAB PO PRN (21:43)
[2019-02-13] MEDS: INSULIN REGULAR, HUMAN 100 UNITS/1 ML SUB-Q SCH ×4 (00:58→18:00)
[2019-02-13] MEDS: SODIUM CHLORIDE 0.45% 1000 ML 1,000 ML IV SCH ×2 (00:59→07:44)
[2019-02-13] MEDS: IPRATROPIUM/ALBUTEROL SULFATE 3 ML AMPUL.NEB IH SCH ×4 (01:34→19:08)
[2019-02-13 05:25] LABS: Hematocrit 32.4 % (30.3-42.9); Hemoglobin 10.4 gm/dl (10.1-14.3); Mean Corpuscular HGB Conc 32 % (30-34); Mean Corpuscular Volume 92 fl (79-97); Red Blood Count 3.53 M/mm3 (3.65-5.03); Red Cell Distribution Width 15.8 % (13.2-15.2)
[2019-02-13 05:28] LABS: Platelet Count 98 K/mm3 (140-440)
[2019-02-13 05:30] LABS: Albumin 1.8 g/dL (3.9-5); Calcium 8.5 mg/dL (8.4-10.2)
[2019-02-13] MEDS: dilTIAZem 60 MG TAB PO SCH ×3 (07:45→18:00)
[2019-02-13] MEDS ORDERED: POTASSIUM CHLORIDE 20 MEQ PACKET FEEDTUBE ONE (08:00)
--- NOTE | 2019-02-13 08:44 | Progress Note ---
Assessment and Plan 53 year old woman who was brought in by her family for unsteady gait, fatigue, and withdrawn behavior. I finally noticed difficult to it fine motor skills throughout that night she was having difficulty expressing herself. she was at a restaurant family I will continue to point to the menu. She became more disoriented and less responsive prompting family to bring her to the emergency room - Severe sepsis with Strep pneumoniae bacteremia, pneumonia and meningitis: TERRENCE was negative for vegetations per cardiology. ID following continue with Ceftriozone - Acute respiratory failure on MV > 96 hours cont vent per pulmonology Wean as tolerated - Hyperglycemia cont ssi, amd lantus - Thrombocytopenia likely due to sepsis or autoimmune phenomenon, hematology input appreciated, hiv-negative, fibrinogen level is not low, PT PTT is normal. 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 families is unclear on this medical history, but know that she has some form of autoimmune disease Compliments are reduced, CHESTER is positive, anti ds dna pending, highly suspect lupus cont steroids - Acute metabolic encephalopathy Likely due to sepsis, EEG neg for seizure, neuro input appreciated - Type 2 FL SSI Glucerna - Hypothyroidism TSH elevated, synthroid dose increased -repeat TFTs in 4-6 wks - Hypokalemia Sill supplement - Acute encephalopathy: secondary to meningitis. MRI brain showed acute ischemic changes in the posterior distribution of the R MCA, right frontal and parietal deep white matter and left frontal deep white matter, additional foci of ischemic change in b/l cerebellar hemispheres. - DVT PPx SCD only. NO aonticoagulation b/c Thrombocytopenia and GI with pepcid - Code status: Full code Subjective Date of service: 02/13/19 Principal diagnosis: sepsis, pneumonia, acute kidney injury, acute metabolic encephalopathy Interval history: Patient seen and examined. Remains intubated. Discussed with nursing staff. No overnight events reported to me. Objective - Exam Narrative Exam: Constitutional: Intubated on connected to mechanical ventilation for over 96 hours Head: Normocephalic atraumatic Eyes: Pupils are equal round and reactive to light Nose: No enlarged turbinates, no septal deviation. Mouth: ET tube in place Moist mucous membranes. Neck: Supple no thyromegaly. No bruit. No JVD Heart: Regular rate and rhythm, S1-S2 normal. No rubs murmurs or gallop Lungs: Decreased breath sounds bilaterally. no rales or rhonchi Abdomen: Soft, nontender. Bowel sound are present. Extremities: No edema, no cyanosis, no clubbing. Neuro: Alert oriented Oriented x3. No focal sensory or motor deficit. Skin: No rashes or hyperpigmented spots Musculoskeletal system: No joint pain or swelling Hematological: No petechia or subcutanous hemorrhages. Immunological: No multiple septic spots on the skin Lymphatic: No generalized lymphadenopathy Psychiatry: Euthymic. Calm. - Constitutional Vitals: Vital Signs - 12hr 02/12/19 02/12/19 02/12/19 20:50 21:00 21:01 Temperature Pulse Rate 115 H 96 H 100 H Pulse Rate [ Anterior Bilateral Throughout] Pulse Rate [ From Monitor] Pulse Rate [ Posterior Throughout] Pulse Rate [ Right Radial] Respiratory 21 Rate Respiratory Rate [Anterior Bilateral Throughout] Respiratory Rate [ Generalized] Respiratory Rate [Posterior Throughout] Blood Pressure 156/88 148/79 148/79 O2 Sat by Pulse 97 100 Oximetry 02/12/19 02/12/19 02/12/19 21:30 21:43 22:00 Temperature Pulse Rate 94 H 97 H Pulse Rate [ Anterior Bilateral Throughout] Pulse Rate [ 93 H From Monitor] Pulse Rate [ Posterior Throughout] Pulse Rate [ 93 H Right Radial] Respiratory 25 H 26 H 24 Rate Respiratory Rate [Anterior Bilateral Throughout] Respiratory 0 L Rate [ Generalized] Respiratory Rate [Posterior Throughout] Blood Pressure 156/83 135/82 O2 Sat by Pulse 100 99 Oximetry 02/12/19 02/12/19 02/12/19 22:30 22:43 23:01 Temperature Pulse Rate 110 H 84 Pulse Rate [ Anterior Bilateral Throughout] Pulse Rate [ From Monitor] Pulse Rate [ Posterior Throughout] Pulse Rate [ Right Radial] Respiratory 30 H 21 22 Rate Respiratory Rate [Anterior Bilateral Throughout] Respiratory Rate [ Generalized] Respiratory Rate [Posterior Throughout] Blood Pressure 146/83 132/76 O2 Sat by Pulse 96 100 Oximetry 02/12/19 02/12/19 02/12/19 23:07 23:31 23:34 Temperature 99.2 F Pulse Rate 118 H 89 Pulse Rate [ Anterior Bilateral Throughout] Pulse Rate [ From Monitor] Pulse Rate [ Posterior Throughout] Pulse Rate [ Right Radial] Respiratory 22 Rate Respiratory Rate [Anterior Bilateral Throughout] Respiratory Rate [ Generalized] Respiratory Rate [Posterior Throughout] Blood Pressure 132/76 132/76 O2 Sat by Pulse 99 100 Oximetry 02/12/19 02/12/19 02/13/19 23:43 23:53 00:00 Temperature Pulse Rate 83 83 Pulse Rate [ Anterior Bilateral Throughout] Pulse Rate [ From Monitor] Pulse Rate [ Posterior Throughout] Pulse Rate [ Right Radial] Respiratory 21 19 Rate Respiratory Rate [Anterior Bilateral Throughout] Respiratory 21 Rate [ Generalized] Respiratory Rate [Posterior Throughout] Blood Pressure 128/63 123/65 O2 Sat by Pulse 100 100 Oximetry 02/13/19 02/13/19 02/13/19 00:30 00:58 01:00 Temperature Pulse Rate 82 78 78 Pulse Rate [ Anterior Bilateral Throughout] Pulse Rate [ 93 H From Monitor] Pulse Rate [ Posterior Throughout] Pulse Rate [ 93 H Right Radial] Respiratory 20 21 19 Rate Respiratory Rate [Anterior Bilateral Throughout] Respiratory Rate [ Generalized] Respiratory Rate [Posterior Throughout] Blood Pressure 124/66 143/76 O2 Sat by Pulse 100 99 100 Oximetry 02/13/19 02/13/19 02/13/19 01:30 01:35 02:01 Temperature Pulse Rate 78 97 H Pulse Rate [ 108 H Anterior Bilateral Throughout] Pulse Rate [ From Monitor] Pulse Rate [ Posterior Throughout] Pulse Rate [ Right Radial] Respiratory 19 28 H Rate Respiratory 24 Rate [Anterior Bilateral Throughout] Respiratory Rate [ Generalized] Respiratory Rate [Posterior Throughout] Blood Pressure 131/57 138/78 O2 Sat by Pulse 100 98 Oximetry 02/13/19 02/13/19 02/13/19 02:30 02:53 03:01 Temperature 99.1 F Pulse Rate 105 H 97 H Pulse Rate [ Anterior Bilateral Throughout] Pulse Rate [ From Monitor] Pulse Rate [ Posterior Throughout] Pulse Rate [ Right Radial] Respiratory 28 H 31 H Rate Respiratory Rate [Anterior Bilateral Throughout] Respiratory Rate [ Generalized] Respiratory Rate [Posterior Throughout] Blood Pressure 137/74 149/79 O2 Sat by Pulse 98 97 Oximetry 02/13/19 02/13/19 02/13/19 03:30 04:00 04:31 Temperature Pulse Rate 95 H 106 H 100 H Pulse Rate [ Anterior Bilateral Throughout] Pulse Rate [ 102 H From Monitor] Pulse Rate [ Posterior Throughout] Pulse Rate [ 102 H Right Radial] Respiratory 29 H 32 H 32 H Rate Respiratory Rate [Anterior Bilateral Throughout] Respiratory Rate [ Generalized] Respiratory Rate [Posterior Throughout] Blood Pressure 145/69 149/95 145/69 O2 Sat by Pulse 98 98 98 Oximetry 02/13/19 02/13/19 02/13/19 04:39 05:01 05:30 Temperature Pulse Rate 109 H 108 H 102 H Pulse Rate [ Anterior Bilateral Throughout] Pulse Rate [ From Monitor] Pulse Rate [ Posterior Throughout] Pulse Rate [ Right Radial] Respiratory 30 H 30 H Rate Respiratory Rate [Anterior Bilateral Throughout] Respiratory Rate [ Generalized] Respiratory Rate [Posterior Throughout] Blood Pressure 165/80 147/89 167/92 O2 Sat by Pulse 98 99 96 Oximetry 02/13/19 02/13/19 02/13/19 06:00 06:31 07:06 Temperature Pulse Rate 97 H 102 H Pulse Rate [ 86 Anterior Bilateral Throughout] Pulse Rate [ From Monitor] Pulse Rate [ 99 H Posterior Throughout] Pulse Rate [ Right Radial] Respiratory 27 H 25 H Rate Respiratory 20 Rate [Anterior Bilateral Throughout] Respiratory Rate [ Generalized] Respiratory 23 Rate [Posterior Throughout] Blood Pressure 154/88 158/93 O2 Sat by Pulse 98 98 Oximetry 02/13/19 02/13/19 02/13/19 07:23 07:45 08:00 Temperature 97.7 F Pulse Rate 90 101 H Pulse Rate [ Anterior Bilateral Throughout] Pulse Rate [ From Monitor] Pulse Rate [ Posterior Throughout] Pulse Rate [ Right Radial] Respiratory Rate Respiratory Rate [Anterior Bilateral Throughout] Respiratory Rate [ Generalized] Respiratory Rate [Posterior Throughout] Blood Pressure 139/72 139/72 O2 Sat by Pulse 99 Oximetry - Labs CBC & Chem 7: 02/13/19 03:41 02/13/19 03:41 Labs: Abnormal lab results 02/12/19 02/12/19 02/12/19 Range/Units 11:51 17:18 21:46 WBC (4.5-11.0) K/mm3 RBC (3.65-5.03) M/mm3 RDW (13.2-15.2) % Plt Count (140-440) K/mm3 Potassium (3.6-5.0) mmol/L Chloride (98-107) mmol/L BUN (7-17) mg/dL Glucose (65-100) mg/dL POC Glucose 357 H 280 H 222 H (70-105) AST (5-40) units/L Alkaline Phosphatase (35-129) units/L Albumin (3.9-5) g/dL 02/12/19 02/13/19 02/13/19 Range/Units 23:58 03:41 03:41 WBC 11.6 H (4.5-11.0) K/mm3 RBC 3.53 L (3.65-5.03) M/mm3 RDW 15.8 H (13.2-15.2) % Plt Count 98 L (140-440) K/mm3 Potassium 3.4 L (3.6-5.0) mmol/L Chloride 109.7 H (98-107) mmol/L BUN 108 H (7-17) mg/dL Glucose 182 H (65-100) mg/dL POC Glucose 208 H (70-105) AST 45 H (5-40) units/L Alkaline Phosphatase 150 H (35-129) units/L Albumin 1.8 L (3.9-5) g/dL 02/13/19 Range/Units 05:40 WBC (4.5-11.0) K/mm3 RBC (3.65-5.03) M/mm3 RDW (13.2-15.2) % Plt Count (140-440) K/mm3 Potassium (3.6-5.0) mmol/L Chloride (98-107) mmol/L BUN (7-17) mg/dL Glucose (65-100) mg/dL POC Glucose 179 H (70-105) AST (5-40) units/L Alkaline Phosphatase (35-129) units/L Albumin (3.9-5) g/dL
[2019-02-13] MEDS: cefTRIAXone/NS 2 GM/100 ML 2 GM/100 ML BAG IV SCH ×2 (09:39→21:08)
[2019-02-13] MEDS: FAMOTIDINE 20 MG TAB PO SCH ×2 (09:39→21:09)
[2019-02-13] MEDS: LEVOTHYROXINE 125 MCG TAB PO SCH (09:39)
[2019-02-13] MEDS: MULTIVITAMINS 5 ML ORAL LIQUID PO SCH (09:40)
[2019-02-13] MEDS: FOLIC ACID 1 MG TAB PO SCH (09:40)
[2019-02-13] MEDS: dexAMETHasone 4 MG/ML VIAL IV SCH ×2 (09:40→21:10)
--- NOTE | 2019-02-13 11:22 | Vascular Lab Report ---
"DUPLEX DOPPLER ULTRASOUND CAROTID, BILATERAL INDICATION: cva. FINDINGS: RIGHT CAROTID: Small amount of atherosclerotic plaque. Right ICA peak systolic velocity: 90 cm/sec. Right Vertebral Artery: Antegrade flow. LEFT CAROTID: Small amount of atherosclerotic plaque. Left ICA peak systolic velocity: 67 cm/sec. Left Vertebral Artery: Antegrade flow. IMPRESSION: 1. Right Internal Carotid Artery: Less than 50% diameter stenosis. 2. Left Internal Carotid Artery: Less than 50% diameter stenosis. Velocity criteria are extrapolated from diameter data as defined by the Society of Radiologists in Ul trasound Consensus Conference, Radiology 2003; 229;340-346. Degree of Stenosis (%) || ICA PSV (cm/sec) || Plaque estimate (%) || ICA/CCA PSV Ratio Normal <125 None <2.0 <50 <125 <50 <2.0 50-69 125-230 50 2.0-4.0 70 but less than 100 >230 50 >4.0 Near occlusion High, low, or none visible variable Total occlusion None visible; no lumen N/A Signer Name: Andrei Milian MD Signed: 02/13/2019 11:17 AM Workstation Name: [id number]"
--- NOTE | 2019-02-13 11:23 | Progress Note ---
Assessment and Plan Optimize BP and HR - increase PO cardizem. The patient has been seen in conjunction with Dr. Hodge who agrees with the assessment and plan of care. - Patient Problems (1) Sepsis Current Visit: Yes Status: Acute (2) Bacteremia Current Visit: Yes Status: Acute (3) Meningitis Current Visit: Yes Status: Acute (4) Pneumonia Current Visit: Yes Status: Acute (5) Acute respiratory failure Current Visit: Yes Status: Acute (6) Atrial fibrillation with RVR Current Visit: Yes Status: Resolved (7) Altered mental status Current Visit: Yes Status: Acute (8) Cellulitis, neck Current Visit: Yes Status: Acute (9) Thrombocytopenia Current Visit: Yes Status: Acute (10) DIANA (acute kidney injury) Current Visit: Yes Status: Acute (11) PFO (patent foramen ovale) Current Visit: Yes Status: Chronic Subjective Date of service: 02/13/19 Principal diagnosis: sepsis, pneumonia, acute kidney injury, acute metabolic encephalopathy Interval history: pt remains intubated, eyes open to commands but no purposeful response noted. in SR on tele with [facility] PACs. no family at bedside. Objective Last Vital Signs Temp 97.7 F 02/13/19 08:00 Pulse 96 H 02/13/19 08:59 Resp 31 H 02/13/19 08:59 BP 162/91 02/13/19 08:59 Pulse Ox 96 02/13/19 08:59 - Physical Examination General: Other (intubated, eyes open) HEENT: Positive: Normocephaly Neck: Positive: neck supple Cardiac: Positive: Reg Rate and Rhythm, S1/S2 Lungs: Positive: Decreased Breath Sounds, Ventilated Respirations Neuro: Positive: Other (intubated, eyes open ) Abdomen: Positive: Unremarkable /Rectal: Other (deferred) Skin: Positive: Clear Musculoskeletal: Decreased Range of Motion Extremities: Present: normal - Labs and Meds Cardiac Enzymes 02/13/19 Range/Units 03:41 AST 45 H (5-40) units/L CBC 02/13/19 Range/Units 03:41 WBC 11.6 H (4.5-11.0) K/mm3 RBC 3.53 L (3.65-5.03) M/mm3 Hgb 10.4 (10.1-14.3) gm/dl Hct 32.4 (30.3-42.9) % Plt Count 98 L (140-440) K/mm3 Comprehensive Metabolic Panel 02/13/19 Range/Units 03:41 Sodium 145 (137-145) mmol/L Potassium 3.4 L (3.6-5.0) mmol/L Chloride 109.7 H (98-107) mmol/L Carbon Dioxide 22 (22-30) mmol/L BUN 108 H (7-17) mg/dL Creatinine 1.2 (0.7-1.2) mg/dL Glucose 182 H (65-100) mg/dL Calcium 8.5 (8.4-10.2) mg/dL AST 45 H (5-40) units/L ALT 26 (7-56) units/L Alkaline Phosphatase 150 H (35-129) units/L Total Protein 6.9 (6.3-8.2) g/dL Albumin 1.8 L (3.9-5) g/dL - Imaging and Cardiology EKG: report reviewed, image reviewed Echo: report reviewed ( 02/02/2019 showed EF 55-60%, mild to mod LVH, atrial septal aneurysm, aortic valve heavily calcified, dense mitral annular calcification, mild MR, mild TR, mild PA, bubble study suggestive of PFO, ? pulmonic valve vegetation.) - EKG Ventricular dysrhythmias: ventricular premature com
[2019-02-13 11:38] LABS: Anisocytosis Few; Basophils % (Manual) 0 % (0.0-1.8); Eosinophils % (Manual) 0 % (0.0-4.3); Total Cells Counted 100
[2019-02-13 11:39] LABS: Burr Cells Few; Macrocytosis 1+; Ovalocytes Few; Platelet Estimate Consistent w Auto; Target Cells Few
--- NOTE | 2019-02-13 12:12 | Progress Note ---
Assessment and Plan 53 y/o female with strep pneumonae bacteremia, meningitis and now stroke with acute respiratory failure and continued azotemia. 1. Neuro: Mental state appears to be improving. Found out this am that patient had actually been pulsed with steroids on the and but was stopped after this. I restarted steroids on not knowing about the pulse doses. Renal did decrease this dose secondary to a bump in BUN but remains on decadron. At this point, unsure if steroids helped or if the patient started waking up on her own. Given improvement, would like to continue as long as it isnt compromising renal function. 2. MSK: Will consult PT now that patient is awake. She did have a large stroke on the right. Unable to get patient to follow commands outside of tracking with eyes but maybe a good candidate for some passive range of motion activities. 3. Renal: Cr improving but BUN remains elevated. BUN was elevated prior to starting of current decadron dosing. Follow up any new renal recs. Discontinue weir and place purewick 4. CV-Follow up cards recs. 5. Tolerating feeds 6. Overall prognosis remains guarded, however good that patient is awake. Will see how she does the next 48 hours in regards to vent, vent mechanics and overall strength. She may be extubatable but if weakness is pronounced, trach and peg maybe better for her in the long run. Asked CM to arrange a family meeting either tomorrow or to discuss further actions of care. Stop vest therapy. Total critical care time 31 minutes Subjective Date of service: 02/13/19 Principal diagnosis: sepsis, pneumonia, acute kidney injury, acute metabolic encephalopathy Interval history: Continues to tolerate PSV but does not have a strong gag or cough reflex. Minimal secretions. Currently on PSV now Objective Vital Signs - 12hr 02/13/19 02/13/19 02/13/19 00:30 00:58 01:00 Temperature Pulse Rate 82 78 78 Pulse Rate [ Anterior Bilateral Throughout] Pulse Rate [ 93 H From Monitor] Pulse Rate [ Posterior Throughout] Pulse Rate [ 93 H Right Radial] Respiratory 20 21 19 Rate Respiratory Rate [Anterior Bilateral Throughout] Respiratory Rate [Posterior Throughout] Blood Pressure 124/66 143/76 O2 Sat by Pulse 100 99 100 Oximetry 02/13/19 02/13/19 02/13/19 01:30 01:35 02:01 Temperature Pulse Rate 78 97 H Pulse Rate [ 108 H Anterior Bilateral Throughout] Pulse Rate [ From Monitor] Pulse Rate [ Posterior Throughout] Pulse Rate [ Right Radial] Respiratory 19 28 H Rate Respiratory 24 Rate [Anterior Bilateral Throughout] Respiratory Rate [Posterior Throughout] Blood Pressure 131/57 138/78 O2 Sat by Pulse 100 98 Oximetry 02/13/19 02/13/19 02/13/19 02:30 02:53 03:01 Temperature 99.1 F Pulse Rate 105 H 97 H Pulse Rate [ Anterior Bilateral Throughout] Pulse Rate [ From Monitor] Pulse Rate [ Posterior Throughout] Pulse Rate [ Right Radial] Respiratory 28 H 31 H Rate Respiratory Rate [Anterior Bilateral Throughout] Respiratory Rate [Posterior Throughout] Blood Pressure 137/74 149/79 O2 Sat by Pulse 98 97 Oximetry 02/13/19 02/13/19 02/13/19 03:30 04:00 04:31 Temperature Pulse Rate 95 H 106 H 100 H Pulse Rate [ Anterior Bilateral Throughout] Pulse Rate [ 102 H From Monitor] Pulse Rate [ Posterior Throughout] Pulse Rate [ 102 H Right Radial] Respiratory 29 H 32 H 32 H Rate Respiratory Rate [Anterior Bilateral Throughout] Respiratory Rate [Posterior Throughout] Blood Pressure 145/69 149/95 145/69 O2 Sat by Pulse 98 98 98 Oximetry 02/13/19 02/13/19 02/13/19 04:39 05:01 05:30 Temperature Pulse Rate 109 H 108 H 102 H Pulse Rate [ Anterior Bilateral Throughout] Pulse Rate [ From Monitor] Pulse Rate [ Posterior Throughout] Pulse Rate [ Right Radial] Respiratory 30 H 30 H Rate Respiratory Rate [Anterior Bilateral Throughout] Respiratory Rate [Posterior Throughout] Blood Pressure 165/80 147/89 167/92 O2 Sat by Pulse 98 99 96 Oximetry 02/13/19 02/13/19 02/13/19 06:00 06:31 07:06 Temperature Pulse Rate 97 H 102 H Pulse Rate [ 86 Anterior Bilateral Throughout] Pulse Rate [ From Monitor] Pulse Rate [ 99 H Posterior Throughout] Pulse Rate [ Right Radial] Respiratory 27 H 25 H Rate Respiratory 20 Rate [Anterior Bilateral Throughout] Respiratory 23 Rate [Posterior Throughout] Blood Pressure 154/88 158/93 O2 Sat by Pulse 98 98 Oximetry 02/13/19 02/13/19 02/13/19 07:23 07:45 08:00 Temperature 97.7 F Pulse Rate 90 101 H Pulse Rate [ Anterior Bilateral Throughout] Pulse Rate [ From Monitor] Pulse Rate [ Posterior Throughout] Pulse Rate [ Right Radial] Respiratory Rate Respiratory Rate [Anterior Bilateral Throughout] Respiratory Rate [Posterior Throughout] Blood Pressure 139/72 139/72 O2 Sat by Pulse 99 Oximetry 02/13/19 02/13/19 02/13/19 08:59 11:54 12:00 Temperature 97.9 F Pulse Rate 96 H 94 H Pulse Rate [ Anterior Bilateral Throughout] Pulse Rate [ From Monitor] Pulse Rate [ Posterior Throughout] Pulse Rate [ Right Radial] Respiratory 31 H 28 H Rate Respiratory Rate [Anterior Bilateral Throughout] Respiratory Rate [Posterior Throughout] Blood Pressure 162/91 154/94 O2 Sat by Pulse 96 99 Oximetry Constitutional: other (orally intubated on mechanical ventilator. Not on sedation, awake, critically ill) Eyes: non-icteric ENT: oropharynx moist Neck: supple Effort: normal Ascultation: Bilateral: other (coarse BS bilaterally) Cardiovascular: other (tachy, RR; no mrg) Gastrointestinal: normoactive bowel sounds, soft, non-tender, non-distended Integumentary: normal Extremities: no cyanosis, no edema, pink and warm Neurologic: other (eyes open, not following commands or moving extremities) Psychiatric: other (unable to assess) CBC and BMP: 02/13/19 03:41 02/13/19 03:41 ABG, PT/INR, D-dimer: ABG POC ABG pH 7.418 (7.35-7.45) 02/12/19 05:36 ABG pH 7.440 pH Units (7.350-7.450) 02/11/19 04:10 POC ABG pCO2 36.9 (35-45) 02/12/19 05:36 ABG pCO2 37.4 mm Hg 02/11/19 04:10 POC ABG pO2 92 (80-105) 02/12/19 05:36 ABG pO2 69.4 mm Hg (80.0-90.0) L 02/11/19 04:10 POC ABG HCO3 23.8 (22-26 mml/L) 02/12/19 05:36 POC ABG Total CO2 25 (23-27mmol/L) 02/12/19 05:36 POC ABG O2 Sat 97 02/12/19 05:36 ABG O2 Saturation 94.2 % (95.0-99.0) L 02/11/19 04:10 PT/INR, D-dimer PT 16.3 Sec. (12.2-14.9) H 02/06/19 07:35 INR 1.35 (0.87-1.13) H 02/06/19 07:35 Abnormal lab findings: Abnormal Labs 02/01/19 02/01/19 02/01/19 07:16 07:16 07:16 WBC 17.7 H RBC Hgb Hct RDW 16.9 H Plt Count 62 L Seg Neuts % (Manual) 95.0 H Lymphocytes % (Manual) 0 L Seg Neutrophils # Man 16.8 H Lymphocytes # (Manual) 0.0 L PT 15.0 H INR 1.21 H APTT Thrombin Time 20.0 H POC ABG pH ABG pH POC ABG pCO2 POC ABG pO2 ABG pO2 ABG HCO3 ABG O2 Saturation ABG Base Excess ABG Hemoglobin Oxyhemoglobin Sodium 135 L Potassium Chloride 97.7 L Carbon Dioxide 19 L BUN 51 H Creatinine 4.5 H Glucose 112 H POC Glucose Lactic Acid Calcium Iron TIBC Direct Bilirubin AST Alkaline Phosphatase Troponin T 0.181 H* C-Reactive Protein Total Protein Albumin LDL Cholesterol Direct 34 L HDL Cholesterol 20 L Vitamin B12 Folate TSH Urine WBC (Auto) Urine Creatinine Urine Total Protein CHESTER Screen CHESTER Titer Complement C3 Complement C4 02/01/19 02/01/19 02/01/19 07:29 07:29 07:43 WBC RBC Hgb Hct RDW Plt Count Seg Neuts % (Manual) Lymphocytes % (Manual) Seg Neutrophils # Man Lymphocytes # (Manual) PT INR APTT Thrombin Time POC ABG pH ABG pH POC ABG pCO2 POC ABG pO2 ABG pO2 ABG HCO3 ABG O2 Saturation ABG Base Excess ABG Hemoglobin Oxyhemoglobin Sodium Potassium Chloride Carbon Dioxide BUN Creatinine Glucose POC Glucose Lactic Acid 4.80 H* Calcium Iron TIBC Direct Bilirubin 0.7 H AST 42 H Alkaline Phosphatase Troponin T C-Reactive Protein Total Protein 8.9 H Albumin 2.3 L LDL Cholesterol Direct HDL Cholesterol Vitamin B12 Folate TSH 8.470 H Urine WBC (Auto) Urine Creatinine Urine Total Protein CHE[place] Screen CHESTER Titer Complement C3 Complement C4 02/01/19 02/01/19 02/01/19 09:45 11:32 13:50 WBC RBC Hgb Hct RDW Plt Count Seg Neuts % (Manual) Lymphocytes % (Manual) Seg Neutrophils # Man Lymphocytes # (Manual) PT INR APTT Thrombin Time POC ABG pH 7.289 L ABG pH POC ABG pCO2 POC ABG pO2 355 H ABG pO2 ABG HCO3 ABG O2 Saturation ABG Base Excess ABG Hemoglobin Oxyhemoglobin Sodium Potassium Chloride Carbon Dioxide BUN Creatinine Glucose POC Glucose Lactic Acid 4.10 H* Calcium Iron TIBC Direct Bilirubin AST Alkaline Phosphatase Troponin T C-Reactive Protein Total Protein Albumin LDL Cholesterol Direct HDL Cholesterol Vitamin B12 Folate TSH Urine WBC (Auto) 16.0 H Urine Creatinine Urine Total Protein [place] Screen CHE[place] Titer Complement C3 Complement C4 02/01/19 02/01/19 02/01/19 15:15 16:20 16:51 WBC RBC Hgb Hct RDW Plt Count Seg Neuts % (Manual) Lymphocytes % (Manual) Seg Neutrophils # Man Lymphocytes # (Manual) PT INR APTT Thrombin Time POC ABG pH ABG pH POC ABG pCO2 POC ABG pO2 ABG pO2 ABG HCO3 ABG O2 Saturation ABG Base Excess ABG Hemoglobin Oxyhemoglobin Sodium Potassium Chloride Carbon Dioxide BUN Creatinine Glucose POC Glucose 115 H Lactic Acid 4.50 H* Calcium Iron TIBC Direct Bilirubin AST Alkaline Phosphatase Troponin T C-Reactive Protein Total Protein Albumin LDL Cholesterol Direct HDL Cholesterol Vitamin B12 Folate TSH Urine WBC (Auto) Urine Creatinine Urine Total Protein [place] Screen [place] Titer Complement C3 36 L Complement C4 02/01/19 02/01/19 02/01/19 16:51 17:03 17:04 WBC RBC Hgb Hct RDW Plt Count Seg Neuts % (Manual) Lymphocytes % (Manual) Seg Neutrophils # Man Lymphocytes # (Manual) PT INR APTT Thrombin Time POC ABG pH ABG pH POC ABG pCO2 POC ABG pO2 ABG pO2 ABG HCO3 ABG O2 Saturation ABG Base Excess ABG Hemoglobin Oxyhemoglobin Sodium Potassium Chloride Carbon Dioxide BUN Creatinine Glucose POC Glucose Lactic Acid 2.80 H* Calcium Iron TIBC Direct Bilirubin AST Alkaline Phosphatase Troponin T C-Reactive Protein 32.30 H Total Protein Albumin LDL Cholesterol Direct HDL Cholesterol Vitamin B12 Folate TSH Urine WBC (Auto) Urine Creatinine Urine Total Protein [place] Screen [place] Titer Complement C3 Complement C4 12 L 02/01/19 02/01/19 02/02/19 17:04 19:28 05:16 WBC RBC Hgb Hct RDW Plt Count Seg Neuts % (Manual) Lymphocytes % (Manual) Seg Neutrophils # Man Lymphocytes # (Manual) PT INR APTT Thrombin Time POC ABG pH ABG pH POC ABG pCO2 POC ABG pO2 148 H ABG pO2 ABG HCO3 ABG O2 Saturation ABG Base Excess ABG Hemoglobin Oxyhemoglobin Sodium Potassium Chloride 107.1 H Carbon Dioxide 18 L BUN 52 H Creatinine 3.1 H Glucose 120 H POC Glucose Lactic Acid Calcium 7.4 L Iron TIBC Direct Bilirubin AST Alkaline Phosphatase Troponin T C-Reactive Protein Total Protein Albumin LDL Cholesterol Direct HDL Cholesterol Vitamin B12 Folate TSH Urine WBC (Auto) Urine Creatinine Urine Total Protein CHE[place] Screen Positive H CHESTER Titer 1:320 H Complement C3 Complement C4 02/02/19 02/02/19 02/03/19 05:53 05:53 03:30 WBC 14.3 H RBC 5.16 H Hgb 14.9 H Hct 46.2 H D RDW 16.9 H 17.0 H Plt Count 43 L 18 L* Seg Neuts % (Manual) 93.0 H Lymphocytes % (Manual) 2.0 L Seg Neutrophils # Man 13.3 H Lymphocytes # (Manual) 0.3 L PT INR APTT Thrombin Time POC ABG pH ABG pH POC ABG pCO2 POC ABG pO2 ABG pO2 ABG HCO3 ABG O2 Saturation ABG Base Excess ABG Hemoglobin Oxyhemoglobin Sodium Potassium 5.1 H Chloride Carbon Dioxide 21 L BUN 57 H Creatinine 3.3 H Glucose 147 H POC Glucose Lactic Acid Calcium 7.5 L Iron TIBC Direct Bilirubin AST 51 H Alkaline Phosphatase Troponin T C-Reactive Protein Total Protein Albumin 1.6 L LDL Cholesterol Direct HDL Cholesterol Vitamin B12 Folate TSH Urine WBC (Auto) Urine Creatinine Urine Total Protein [place] Screen [place] Titer Complement C3 Complement C4 02/03/19 02/03/19 02/03/19 03:30 05:55 14:42 WBC RBC Hgb Hct RDW Plt Count Seg Neuts % (Manual) Lymphocytes % (Manual) Seg Neutrophils # Man Lymphocytes # (Manual) PT INR APTT Thrombin Time POC ABG pH ABG pH POC ABG pCO2 POC ABG pO2 117 H ABG pO2 ABG HCO3 ABG O2 Saturation ABG Base Excess ABG Hemoglobin Oxyhemoglobin Sodium Potassium Chloride Carbon Dioxide BUN 65 H Creatinine 2.7 H Glucose 117 H POC Glucose Lactic Acid Calcium 7.2 L Iron TIBC Direct Bilirubin AST Alkaline Phosphatase Troponin T C-Reactive Protein Total Protein Albumin LDL Cholesterol Direct HDL Cholesterol Vitamin B12 1468 H Folate TSH Urine WBC (Auto) Urine Creatinine Urine Total Protein [place] Screen [place] Titer Complement C3 Complement C4 02/03/19 02/03/19 02/03/19 14:42 14:42 14:42 WBC RBC 3.17 L Hgb 9.4 L D Hct 28.3 L D RDW 16.9 H Plt Count 18 L* Seg Neuts % (Manual) Lymphocytes % (Manual) Seg Neutrophils # Man Lymphocytes # (Manual) PT INR APTT Thrombin Time POC ABG pH ABG pH POC ABG pCO2 POC ABG pO2 ABG pO2 ABG HCO3 ABG O2 Saturation ABG Base Excess ABG Hemoglobin Oxyhemoglobin Sodium Potassium Chloride Carbon Dioxide BUN Creatinine Glucose POC Glucose Lactic Acid Calcium Iron 11 L TIBC 88 L Direct Bilirubin AST Alkaline Phosphatase Troponin T C-Reactive Protein Total Protein Albumin LDL Cholesterol Direct HDL Cholesterol Vitamin B12 Folate 5.18 L TSH Urine WBC (Auto) Urine Creatinine Urine Total Protein [place] Screen [place] Titer Complement C3 Complement C4 02/03/19 02/03/19 02/04/19 14:42 14:42 03:35 WBC RBC 3.22 L Hgb 9.5 L Hct 28.5 L RDW 16.4 H Plt Count 18 L* Seg Neuts % (Manual) Lymphocytes % (Manual) Seg Neutrophils # Man Lymphocytes # (Manual) PT 15.8 H INR 1.29 H APTT 38.2 H Thrombin Time POC ABG pH ABG pH 7.470 H POC ABG pCO2 POC ABG pO2 ABG pO2 ABG HCO3 28.4 H ABG O2 Saturation ABG Base Excess 4.5 H ABG Hemoglobin 10.1 L Oxyhemoglobin 94.7 L Sodium Potassium Chloride Carbon Dioxide BUN Creatinine Glucose POC Glucose Lactic Acid Calcium Iron TIBC Direct Bilirubin AST Alkaline Phosphatase Troponin T C-Reactive Protein Total Protein Albumin LDL Cholesterol Direct HDL Cholesterol Vitamin B12 Folate TSH Urine WBC (Auto) Urine Creatinine Urine Total Protein [place] Screen [place] Titer Complement C3 Complement C4 02/04/19 02/04/19 02/05/19 05:02 05:02 03:50 WBC RBC Hgb Hct RDW 16.5 H Plt Count 20 L Seg Neuts % (Manual) 94.0 H Lymphocytes % (Manual) 2.0 L Seg Neutrophils # Man 9.2 H Lymphocytes # (Manual) 0.2 L PT INR APTT Thrombin Time POC ABG pH ABG pH 7.485 H POC ABG pCO2 POC ABG pO2 ABG pO2 ABG HCO3 27.5 H ABG O2 Saturation ABG Base Excess 3.9 H ABG Hemoglobin 9.1 L Oxyhemoglobin 94.8 L Sodium Potassium Chloride Carbon Dioxide BUN 66 H Creatinine 1.7 H Glucose 127 H POC Glucose Lactic Acid Calcium 7.6 L Iron TIBC Direct Bilirubin AST Alkaline Phosphatase Troponin T C-Reactive Protein Total Protein Albumin LDL Cholesterol Direct HDL Cholesterol Vitamin B12 Folate TSH Urine WBC (Auto) Urine Creatinine Urine Total Protein [place] Screen [place] Titer Complement C3 Complement C4 02/05/19 02/05/19 02/05/19 13:02 14:36 20:03 WBC 11.7 H RBC 3.48 L 3.24 L Hgb 10.0 L 9.4 L Hct 29.2 L RDW 16.3 H 16.3 H Plt Count 50 L D 71 L Seg Neuts % (Manual) 95.0 H 95.0 H Lymphocytes % (Manual) 0 L 2.0 L Seg Neutrophils # Man 11.1 H 10.2 H Lymphocytes # (Manual) 0.0 L 0.2 L PT INR APTT Thrombin Time POC ABG pH ABG pH POC ABG pCO2 POC ABG pO2 ABG pO2 ABG HCO3 ABG O2 Saturation ABG Base Excess ABG Hemoglobin Oxyhemoglobin Sodium Potassium Chloride Carbon Dioxide BUN 67 H Creatinine 1.5 H Glucose POC Glucose Lactic Acid Calcium 7.7 L Iron TIBC Direct Bilirubin AST Alkaline Phosphatase Troponin T C-Reactive Protein Total Protein Albumin LDL Cholesterol Direct HDL Cholesterol Vitamin B12 Folate TSH Urine WBC (Auto) Urine Creatinine Urine Total Protein [place] Screen [place] Titer Complement C3 Complement C4 02/06/19 02/06/19 02/06/19 05:39 07:35 18:34 WBC RBC Hgb Hct RDW Plt Count Seg Neuts % (Manual) Lymphocytes % (Manual) Seg Neutrophils # Man Lymphocytes # (Manual) PT 16.3 H INR 1.35 H APTT Thrombin Time POC ABG pH ABG pH POC ABG pCO2 POC ABG pO2 ABG pO2 ABG HCO3 ABG O2 Saturation ABG Base Excess ABG Hemoglobin Oxyhemoglobin Sodium Potassium Chloride Carbon Dioxide BUN Creatinine Glucose POC Glucose 107 H 121 H Lactic Acid Calcium Iron TIBC Direct Bilirubin AST Alkaline Phosphatase Troponin T C-Reactive Protein Total Protein Albumin LDL Cholesterol Direct HDL Cholesterol Vitamin B12 Folate TSH Urine WBC (Auto) Urine Creatinine Urine Total Protein [place] Screen [place] Titer Complement C3 Complement C4 02/06/19 02/07/19 02/07/19 Unknown 01:07 04:15 WBC RBC Hgb Hct RDW Plt Count Seg Neuts % (Manual) Lymphocytes % (Manual) Seg Neutrophils # Man Lymphocytes # (Manual) PT INR APTT Thrombin Time POC ABG pH ABG pH POC ABG pCO2 POC ABG pO2 ABG pO2 ABG HCO3 ABG O2 Saturation ABG Base Excess ABG Hemoglobin 5.0 L Oxyhemoglobin 94.9 L 94.8 L Sodium 146 H Potassium Chloride Carbon Dioxide BUN 85 H Creatinine 1.8 H Glucose 163 H POC Glucose Lactic Acid Calcium 8.3 L Iron TIBC Direct Bilirubin AST Alkaline Phosphatase Troponin T C-Reactive Protein Total Protein Albumin LDL Cholesterol Direct HDL Cholesterol Vitamin B12 Folate TSH Urine WBC (Auto) Urine Creatinine Urine Total Protein [place] Screen [place] Titer Complement C3 Complement C4 02/07/19 02/07/19 02/08/19 08:22 10:58 04:40 WBC RBC Hgb Hct RDW 16.0 H Plt Count 84 L Seg Neuts % (Manual) 97.0 H Lymphocytes % (Manual) 0 L Seg Neutrophils # Man 9.5 H Lymphocytes # (Manual) 0.0 L PT INR APTT Thrombin Time POC ABG pH 7.477 H ABG pH 7.467 H POC ABG pCO2 34.8 L POC ABG pO2 118 H ABG pO2 ABG HCO3 ABG O2 Saturation ABG Base Excess ABG Hemoglobin 8.4 L Oxyhemoglobin Sodium Potassium Chloride Carbon Dioxide BUN Creatinine Glucose POC Glucose Lactic Acid Calcium Iron TIBC Direct Bilirubin AST Alkaline Phosphatase Troponin T C-Reactive Protein Total Protein Albumin LDL Cholesterol Direct HDL Cholesterol Vitamin B12 Folate TSH Urine WBC (Auto) Urine Creatinine Urine Total Protein [place] Screen [place] Titer Complement C3 Complement C4 02/09/19 02/09/19 02/09/19 03:17 03:17 04:35 WBC 14.9 H RBC 3.32 L Hgb 9.6 L Hct RDW 15.9 H Plt Count 113 L Seg Neuts % (Manual) 96.0 H Lymphocytes % (Manual) 1.0 L Seg Neutrophils # Man 14.3 H Lymphocytes # (Manual) 0.1 L PT INR APTT Thrombin Time POC ABG pH ABG pH 7.478 H POC ABG pCO2 POC ABG pO2 ABG pO2 94.5 H ABG HCO3 ABG O2 Saturation ABG Base Excess ABG Hemoglobin 6.1 L Oxyhemoglobin Sodium 147 H Potassium Chloride 110.4 H Carbon Dioxide BUN 114 H Creatinine 2.2 H Glucose 270 H POC Glucose Lactic Acid Calcium 8.1 L Iron TIBC Direct Bilirubin AST Alkaline Phosphatase Troponin T C-Reactive Protein Total Protein Albumin 1.6 L LDL Cholesterol Direct HDL Cholesterol Vitamin B12 Folate TSH Urine WBC (Auto) Urine Creatinine Urine Total Protein [place] Screen [place] Titer Complement C3 Complement C4 02/09/19 02/09/19 02/10/19 13:35 18:54 05:13 WBC RBC Hgb Hct RDW Plt Count Seg Neuts % (Manual) Lymphocytes % (Manual) Seg Neutrophils # Man Lymphocytes # (Manual) PT INR APTT Thrombin Time POC ABG pH ABG pH 7.478 H POC ABG pCO2 POC ABG pO2 ABG pO2 ABG HCO3 ABG O2 Saturation ABG Base Excess ABG Hemoglobin 8.1 L Oxyhemoglobin 94.9 L Sodium Potassium Chloride Carbon Dioxide BUN Creatinine Glucose POC Glucose Lactic Acid Calcium Iron TIBC Direct Bilirubin AST Alkaline Phosphatase Troponin T C-Reactive Protein Total Protein Albumin LDL Cholesterol Direct HDL Cholesterol Vitamin B12 Folate TSH Urine WBC (Auto) 10.0 H Urine Creatinine 92.9 H Urine Total Protein 116 H CHE[place] Screen [place] Titer Complement C3 Complement C4 02/10/19 02/10/19 02/11/19 18:14 23:24 04:10 WBC RBC Hgb Hct RDW Plt Count Seg Neuts % (Manual) Lymphocytes % (Manual) Seg Neutrophils # Man Lymphocytes # (Manual) PT INR APTT Thrombin Time POC ABG pH ABG pH POC ABG pCO2 POC ABG pO2 ABG pO2 69.4 L ABG HCO3 ABG O2 Saturation 94.2 L ABG Base Excess ABG Hemoglobin 11.0 L Oxyhemoglobin 92.1 L Sodium Potassium Chloride Carbon Dioxide BUN Creatinine Glucose POC Glucose 453 H 403 H Lactic Acid Calcium Iron TIBC Direct Bilirubin AST Alkaline Phosphatase Troponin T C-Reactive Protein Total Protein Albumin LDL Cholesterol Direct HDL Cholesterol Vitamin B12 Folate TSH Urine WBC (Auto) Urine Creatinine Urine Total Protein [place] Screen [place] Titer Complement C3 Complement C4 02/11/19 02/11/19 02/11/19 04:54 04:54 05:40 WBC 12.5 H RBC 3.18 L Hgb 9.4 L Hct 29.4 L RDW 16.6 H Plt Count Seg Neuts % (Manual) 94.0 H Lymphocytes % (Manual) 4.0 L Seg Neutrophils # Man 11.8 H Lymphocytes # (Manual) 0.5 L PT INR APTT Thrombin Time POC ABG pH ABG pH POC ABG pCO2 POC ABG pO2 ABG pO2 ABG HCO3 ABG O2 Saturation ABG Base Excess ABG Hemoglobin Oxyhemoglobin Sodium 151 H Potassium Chloride 112.6 H Carbon Dioxide BUN 127 H Creatinine 1.8 H Glucose 396 H POC Glucose 410 H Lactic Acid Calcium 8.3 L Iron TIBC Direct Bilirubin AST Alkaline Phosphatase 132 H Troponin T C-Reactive Protein Total Protein Albumin 2.1 L LDL Cholesterol Direct HDL Cholesterol Vitamin B12 Folate TSH Urine WBC (Auto) Urine Creatinine Urine Total Protein [place] Screen [place] Titer Complement C3 Complement C4 02/11/19 02/11/19 02/11/19 11:30 17:58 23:18 WBC RBC Hgb Hct RDW Plt Count Seg Neuts % (Manual) Lymphocytes % (Manual) Seg Neutrophils # Man Lymphocytes # (Manual) PT INR APTT Thrombin Time POC ABG pH ABG pH POC ABG pCO2 POC ABG pO2 ABG pO2 ABG HCO3 ABG O2 Saturation ABG Base Excess ABG Hemoglobin Oxyhemoglobin Sodium Potassium Chloride Carbon Dioxide BUN Creatinine Glucose POC Glucose 361 H 414 H 392 H Lactic Acid Calcium Iron TIBC Direct Bilirubin AST Alkaline Phosphatase Troponin T C-Reactive Protein Total Protein Albumin LDL Cholesterol Direct HDL Cholesterol Vitamin B12 Folate TSH Urine WBC (Auto) Urine Creatinine Urine Total Protein [place] Screen [place] Titer Complement C3 Complement C4 02/12/19 02/12/19 02/12/19 05:32 05:36 05:36 WBC 11.9 H RBC 3.40 L Hgb 9.9 L Hct RDW 16.4 H Plt Count Seg Neuts % (Manual) 97.0 H Lymphocytes % (Manual) 2.0 L Seg Neutrophils # Man 11.5 H Lymphocytes # (Manual) 0.2 L PT INR APTT Thrombin Time POC ABG pH ABG pH POC ABG pCO2 POC ABG pO2 ABG pO2 ABG HCO3 ABG O2 Saturation ABG Base Excess ABG Hemoglobin Oxyhemoglobin Sodium 146 H Potassium 3.5 L Chloride 110.2 H Carbon Dioxide BUN 118 H Creatinine 1.4 H Glucose 382 H POC Glucose 361 H Lactic Acid Calcium 8.3 L Iron TIBC Direct Bilirubin AST Alkaline Phosphatase 137 H Troponin T C-Reactive Protein Total Protein Albumin 2.0 L LDL Cholesterol Direct HDL Cholesterol Vitamin B12 Folate TSH Urine WBC (Auto) Urine Creatinine Urine Total Protein [place] Screen [place] Titer Complement C3 Complement C4 02/12/19 02/12/19 02/12/19 11:51 17:18 21:46 WBC RBC Hgb Hct RDW Plt Count Seg Neuts % (Manual) Lymphocytes % (Manual) Seg Neutrophils # Man Lymphocytes # (Manual) PT INR APTT Thrombin Time POC ABG pH ABG pH POC ABG pCO2 POC ABG pO2 ABG pO2 ABG HCO3 ABG O2 Saturation ABG Base Excess ABG Hemoglobin Oxyhemoglobin Sodium Potassium Chloride Carbon Dioxide BUN Creatinine Glucose POC Glucose 357 H 280 H 222 H Lactic Acid Calcium Iron TIBC Direct Bilirubin AST Alkaline Phosphatase Troponin T C-Reactive Protein Total Protein Albumin LDL Cholesterol Direct HDL Cholesterol Vitamin B12 Folate TSH Urine WBC (Auto) Urine Creatinine Urine Total Protein [place] Screen CHE[place] Titer Complement C3 Complement C4 02/12/19 02/13/19 02/13/19 23:58 03:41 03:41 WBC 11.6 H RBC 3.53 L Hgb Hct RDW 15.8 H Plt Count 98 L Seg Neuts % (Manual) 97.0 H Lymphocytes % (Manual) 2.0 L Seg Neutrophils # Man 11.3 H Lymphocytes # (Manual) 0.2 L PT INR APTT Thrombin Time POC ABG pH ABG pH POC ABG pCO2 POC ABG pO2 ABG pO2 ABG HCO3 ABG O2 Saturation ABG Base Excess ABG Hemoglobin Oxyhemoglobin Sodium Potassium 3.4 L Chloride 109.7 H Carbon Dioxide BUN 108 H Creatinine Glucose 182 H POC Glucose 208 H Lactic Acid Calcium Iron TIBC Direct Bilirubin AST 45 H Alkaline Phosphatase 150 H Troponin T C-Reactive Protein Total Protein Albumin 1.8 L LDL Cholesterol Direct HDL Cholesterol Vitamin B12 Folate TSH Urine WBC (Auto) Urine Creatinine Urine Total Protein [place] Screen [place] Titer Complement C3 Complement C4 02/13/19 05:40 WBC RBC Hgb Hct RDW Plt Count Seg Neuts % (Manual) Lymphocytes % (Manual) Seg Neutrophils # Man Lymphocytes # (Manual) PT INR APTT Thrombin Time POC ABG pH ABG pH POC ABG pCO2 POC ABG pO2 ABG pO2 ABG HCO3 ABG O2 Saturation ABG Base Excess ABG Hemoglobin Oxyhemoglobin Sodium Potassium Chloride Carbon Dioxide BUN Creatinine Glucose POC Glucose 179 H Lactic Acid Calcium Iron TIBC Direct Bilirubin AST Alkaline Phosphatase Troponin T C-Reactive Protein Total Protein Albumin LDL Cholesterol Direct HDL Cholesterol Vitamin B12 Folate TSH Urine WBC (Auto) Urine Creatinine Urine Total Protein CHESTER Screen CHESTER Titer Complement C3 Complement C4
[2019-02-13] MEDS: ACETAMINOPHEN 325 MG TAB PO PRN (12:35)
--- NOTE | 2019-02-13 13:07 | Hem/Onc Progress Note ---
Assessment and Plan 1. h/o Thrombocytopenia, sepsis/infection/antibiotic related. Folate level is low, B12 is normal. Serum iron is low, but ferritin is not low. HIV negative. Fibrinogen level is not low. PT, PTT is not abnormal. Supportive care at this time will help the patient. 2. Diabetes. 3. Hypothyroidism. 4. History of renal impairment, on supportive care. 5. Intubation for respiratory issues. 6. Neurology team saw the patient. Neurology thinks it is septic metabolic encephalopathy. I will follow the patient during inpatient stay. 02/13 plt normalized low folate on replacement pt still - on vent - unresponsive neurology following TERRENCE done - Patient Problems (1) Thrombocytopenia Current Visit: Yes Status: Acute Subjective Date of service: 02/13/19 Principal diagnosis: low plt Interval history: asm per RN - pt has minimal movements on command Objective - Exam Narrative Exam: Pain - not evaluable General appearance intubated Performance status complete dependent Eyes - no icterus ENT - no bleeding - on vent LNs cervical not palpable Neck - no LN Respiratory Normal Breath sounds - CTA anteriorly CVS S1 S2 + Extremities normal temperature General GI Soft Rectal deferred female - deferred Skin warm Musculoskeletal not moving Neurologically not responding to verbal commands at this time - Constitutional Vitals: Last Vital Signs Temp 97.9 F 02/13/19 12:00 Pulse 98 H 02/13/19 12:00 Resp 28 H 02/13/19 11:54 BP 154/78 02/13/19 12:00 Pulse Ox 99 02/13/19 11:54 - Labs Lab Results: Laboratory Results - last 24 hr 02/12/19 02/12/19 02/12/19 17:18 21:46 23:58 WBC RBC Hgb Hct MCV MCH MCHC RDW Plt Count Add Manual Diff Total Counted Seg Neutrophils % Seg Neuts % (Manual) Band Neutrophils % Lymphocytes % (Manual) Reactive Lymphs % (Man) Monocytes % (Manual) Eosinophils % (Manual) Basophils % (Manual) Metamyelocytes % Myelocytes % Promyelocytes % Blast Cells % Nucleated RBC % Seg Neutrophils # Man Band Neutrophils # Lymphocytes # (Manual) Abs React Lymphs (Man) Monocytes # (Manual) Eosinophils # (Manual) Basophils # (Manual) Metamyelocytes # Myelocytes # Promyelocytes # Blast Cells # WBC Morphology Hypersegmented Neuts Hyposegmented Neuts Hypogranular Neuts Smudge Cells Toxic Granulation Toxic Vacuolation Dohle Bodies Pelger-Huet Anomaly Raghav Rods Platelet Estimate Clumped Platelets Plt Clumps, EDTA Large Platelets Giant Platelets Platelet Satelliting Plt Morphology Comment RBC Morphology Dimorphic RBCs Polychromasia Hypochromasia Poikilocytosis Anisocytosis Microcytosis Macrocytosis Spherocytes Pappenheimer Bodies Sickle Cells Target Cells Tear Drop Cells Ovalocytes Helmet Cells [place] Bodies [place] Cells Bite Cells Crenated Cell Elliptocytes Acanthocytes (Spur) Rouleaux Hemoglobin C Crystals Schistocytes Malaria parasites Riccardo Bodies Hem Pathologist Commnt Sodium Potassium Chloride Carbon Dioxide Anion Gap BUN Creatinine Estimated GFR BUN/Creatinine Ratio Glucose POC Glucose 280 H 222 H 208 H Calcium Total Bilirubin AST ALT Alkaline Phosphatase Total Protein Albumin Albumin/Globulin Ratio 02/13/19 02/13/19 02/13/19 03:41 03:41 05:40 WBC 11.6 H RBC 3.53 L Hgb 10.4 Hct 32.4 MCV 92 MCH 29 MCHC 32 RDW 15.8 H Plt Count 98 L Add Manual Diff Complete Total Counted 100 Seg Neutrophils % Programs Director Seg Neuts % (Manual) 97.0 H Band Neutrophils % 0 Lymphocytes % (Manual) 2.0 L Reactive Lymphs % (Man) 0 Monocytes % (Manual) 1.0 Eosinophils % (Manual) 0 Basophils % (Manual) 0 Metamyelocytes % 0 Myelocytes % 0 Promyelocytes % 0 Blast Cells % 0 Nucleated RBC % Not Reportable Seg Neutrophils # Man 11.3 H Band Neutrophils # 0.0 Lymphocytes # (Manual) 0.2 L Abs React Lymphs (Man) 0.0 Monocytes # (Manual) 0.1 Eosinophils # (Manual) 0.0 Basophils # (Manual) 0.0 Metamyelocytes # 0.0 Myelocytes # 0.0 Promyelocytes # 0.0 Blast Cells # 0.0 WBC Morphology Not Reportable Hypersegmented Neuts Not Reportable Hyposegmented Neuts Not Reportable Hypogranular Neuts Not Reportable Smudge Cells Not Reportable Toxic Granulation Not Reportable Toxic Vacuolation Not Reportable Dohle Bodies Not Reportable Pelger-Huet Anomaly Not Reportable Raghav Rods Not Reportable Platelet Estimate Consistent w auto Clumped Platelets Not Reportable Plt Clumps, EDTA Not Reportable Large Platelets Not Reportable Giant Platelets Not Reportable Platelet Satelliting Not Reportable Plt Morphology Comment Not Reportable RBC Morphology Not Reportable Dimorphic RBCs Not Reportable Polychromasia Few Hypochromasia Not Reportable Poikilocytosis Not Reportable Anisocytosis Few Microcytosis Not Reportable Macrocytosis 1+ Spherocytes Not Reportable Pappenheimer Bodies Not Reportable Sickle Cells Not Reportable Target Cells Few Tear Drop Cells Not Reportable Ovalocytes Few Helmet Cells Not Reportable [place] Bodies Not Reportable [place] Rings Not Reportable [place] Cells Few Bite Cells Not Reportable Crenated Cell Not Reportable Elliptocytes Not Reportable Acanthocytes (Spur) Not Reportable Rouleaux Not Reportable Hemoglobin C Crystals Not Reportable Schistocytes Not Reportable Malaria parasites Not Reportable Riccardo Bodies Not Reportable Hem Pathologist Commnt No Sodium 145 Potassium 3.4 L Chloride 109.7 H Carbon Dioxide 22 Anion Gap 17 BUN 108 H Creatinine 1.2 Estimated GFR 57 BUN/Creatinine Ratio 90 Glucose 182 H POC Glucose 179 H Calcium 8.5 Total Bilirubin 0.30 AST 45 H ALT 26 Alkaline Phosphatase 150 H Total Protein 6.9 Albumin 1.8 L Albumin/Globulin Ratio 0.4 02/13/19 11:31 WBC RBC Hgb Hct MCV MCH MCHC RDW Plt Count Add Manual Diff Total Counted Seg Neutrophils % Seg Neuts % (Manual) Band Neutrophils % Lymphocytes % (Manual) Reactive Lymphs % (Man) Monocytes % (Manual) Eosinophils % (Manual) Basophils % (Manual) Metamyelocytes % Myelocytes % Promyelocytes % Blast Cells % Nucleated RBC % Seg Neutrophils # Man Band Neutrophils # Lymphocytes # (Manual) Abs React Lymphs (Man) Monocytes # (Manual) Eosinophils # (Manual) Basophils # (Manual) Metamyelocytes # Myelocytes # Promyelocytes # Blast Cells # WBC Morphology Hypersegmented Neuts Hyposegmented Neuts Hypogranular Neuts Smudge Cells Toxic Granulation Toxic Vacuolation Dohle Bodies Pelger-Huet Anomaly Raghav Rods Platelet Estimate Clumped Platelets Plt Clumps, EDTA Large Platelets Giant Platelets Platelet Satelliting Plt Morphology Comment RBC Morphology Dimorphic RBCs Polychromasia Hypochromasia Poikilocytosis Anisocytosis Microcytosis Macrocytosis Spherocytes Pappenheimer Bodies Sickle Cells Target Cells Tear Drop Cells Ovalocytes Helmet Cells [place] Bodies [place] Cells Bite Cells Crenated Cell Elliptocytes Acanthocytes (Spur) Rouleaux Hemoglobin C Crystals Schistocytes Malaria parasites Riccardo Bodies Hem Pathologist Commnt Sodium Potassium Chloride Carbon Dioxide Anion Gap BUN Creatinine Estimated GFR BUN/Creatinine Ratio Glucose POC Glucose 193 H Calcium Total Bilirubin AST ALT Alkaline Phosphatase Total Protein Albumin Albumin/Globulin Ratio Medications & Allergies - Medications Allergies/Adverse Reactions: Allergies No Known Allergies Allergy (Verified 08/18/18 09:04) Home Medications: Home Medications Medication Instructions Recorded Confirmed Last Taken Type Levothyroxine [Synthroid] 112 mcg PO QAM 02/01/19 02/01/19 Unknown History Lisinopril [Zestril TAB] 40 mg PO QDAY 02/01/19 02/01/19 Unknown History amLODIPine [Norvasc] 10 mg PO DAILY 02/01/19 02/01/19 Unknown History cloNIDine [Catapres] 1 mg PO QDAY 02/01/19 02/01/19 Unknown History Active Medications: Generic Name Dose Route Start Last Admin Trade Name Freq PRN Reason Stop Dose Admin Acetaminophen 650 mg 02/01/19 10:47 02/13/19 12:35 Tylenol PO 650 mg Q4H PRN Administration Pain MILD(1-3)/Fever >100.5/VALENZUELA Albuterol 2.5 mg 02/01/19 10:47 Proventil IH Q4HRT PRN Shortness Of Breath Albuterol/Ipratropium 1 ampul 02/01/19 12:00 02/13/19 07:05 Duoneb *Not For Prn Use* IH 1 ampul Q6HRT AMOL Administration Lipase/Protease/Amylase 1 each 02/05/19 11:04 Carola Hammond 10,500 Unit FEEDTUBE PRN PRN For Clogged Feeding Tube Dexamethasone 4 mg 02/11/19 22:00 02/13/19 09:40 Decadron IV 4 mg Q12HR AMOL Administration Diltiazem HCl 60 mg 02/13/19 12:00 02/13/19 12:00 Cardizem PO 60 mg Q6H AMOL Administration Famotidine 20 mg 02/12/19 10:00 02/13/19 09:39 Pepcid PO 20 mg BID AMOL Administration Folic Acid 1 mg 02/06/19 10:00 02/13/19 09:40 Folvite PO 1 mg QDAY AMOL Administration Hydrophilic Ointment 1 applic 02/01/19 11:09 02/02/19 16:50 Vaseline Lip Therapy TP 1 applic Q2HR PRN Administration Dry Lips Ceftriaxone Sodium 2 gm in 100 mls @ 200 mls/hr 02/05/19 13:00 02/13/19 10:40 Rocephin/Ns 2 Gm/100 Ml IV 02/15/19 23:59 Infused Q12HR AMOL Infusion Protocol Sodium Chloride 1,000 mls @ 150 mls/hr 02/12/19 10:00 02/13/19 07:44 Nacl 0.45% 1000 Ml IV 150 mls/hr DIRECT AMOL Administration Insulin Glargine 30 units 02/11/19 16:36 02/12/19 21:00 Lantus SUB-Q 30 units QHS AMOL Administration Insulin Human Regular 0 units 02/10/19 19:00 02/13/19 12:00 Humulin R SUB-Q 3 units Q6HR AMOL Administration Protocol Levothyroxine Sodium 125 mcg 02/07/19 10:00 02/13/19 09:39 Synthroid PO 125 mcg QAM AMOL Administration Multi-Ingred Cream/Lotion/Oil/Oint 1 applic 02/01/19 11:09 02/08/19 21:18 Artificial Tears Ophth Oint OU 1 applic Q4HR PRN Administration Dry Eye(s) Multivitamins 5 ml 02/06/19 10:00 02/13/19 09:40 Centrum Liq PO 5 ml QDAY AMOL Administration Ondansetron HCl 4 mg 02/01/19 10:47 Zofran IV Q8H PRN Nausea And Vomiting Simple Syrup 15 ml 02/05/19 11:04 Simple Syrup FEEDTUBE PRN PRN Hypoglycemia Simple Syrup 30 ml 02/05/19 11:04 Simple Syrup FEEDTUBE PRN PRN Hypoglycemia Sodium Bicarbonate 325 mg 02/05/19 11:04 Sodium Bicarbonate FEEDTUBE PRN PRN For Clogged Feeding Tube Sodium Chloride 10 ml 02/01/19 22:00 02/13/19 09:42 Sodium Chloride Flush Syringe 10 Ml IV 10 ml BID AMOL Administration Sodium Chloride 10 ml 02/01/19 10:47 Sodium Chloride Flush Syringe 10 Ml IV PRN PRN LINE FLUSH
--- NOTE | 2019-02-13 14:08 | Progress Note ---
Assessment and Plan - Patient Problems (1) Hypernatremia Current Visit: Yes Status: Acute Plan to address problem: Hypernatremia : Improving - Will change to half-normal saline given significant hyperglycemia and acute kidney injury - We'll check labs - Free water pushes as well (2) DIANA (acute kidney injury) Current Visit: Yes Status: Acute Plan to address problem: Acute kidney injury improvement Change to half-normal saline significant azotemia did receive steroids Continue fluid hydration Recheck labs Avoid nephrotoxic medications (3) Bacteremia Current Visit: Yes Status: Acute Plan to address problem: Bacteremia History of streptococcal bacteremia and cellulitis complete antibiotics (4) Altered mental status Current Visit: Yes Status: Acute Plan to address problem: Encephalopathy appears to be improving Continue hydration Subjective Principal diagnosis: sepsis, pneumonia, acute kidney injury, acute metabolic encephalopathy Interval history: 53-year-old lady streptococcal bacteremia, cellulitis, encephalopathy admitted with oliguric acute kidney injury in the setting of sepsis and ATN Patient seen today mental status slightly improving IVF is ongoing Sodium level is improving Objective - Vital Signs Vital signs: Vital Signs - 12hr 02/13/19 02/13/19 02/13/19 02:01 02:30 02:53 Temperature 99.1 F Pulse Rate 97 H 105 H Pulse Rate [ Anterior Bilateral Throughout] Pulse Rate [ From Monitor] Pulse Rate [ Posterior Throughout] Pulse Rate [ Right Radial] Respiratory 28 H 28 H Rate Respiratory Rate [Anterior Bilateral Throughout] Respiratory Rate [Posterior Throughout] Blood Pressure 138/78 137/74 O2 Sat by Pulse 98 98 Oximetry 02/13/19 02/13/19 02/13/19 03:01 03:30 04:00 Temperature Pulse Rate 97 H 95 H 106 H Pulse Rate [ Anterior Bilateral Throughout] Pulse Rate [ 102 H From Monitor] Pulse Rate [ Posterior Throughout] Pulse Rate [ 102 H Right Radial] Respiratory 31 H 29 H 32 H Rate Respiratory Rate [Anterior Bilateral Throughout] Respiratory Rate [Posterior Throughout] Blood Pressure 149/79 145/69 149/95 O2 Sat by Pulse 97 98 98 Oximetry 02/13/19 02/13/19 02/13/19 04:31 04:39 05:01 Temperature Pulse Rate 100 H 109 H 108 H Pulse Rate [ Anterior Bilateral Throughout] Pulse Rate [ From Monitor] Pulse Rate [ Posterior Throughout] Pulse Rate [ Right Radial] Respiratory 32 H 30 H Rate Respiratory Rate [Anterior Bilateral Throughout] Respiratory Rate [Posterior Throughout] Blood Pressure 145/69 165/80 147/89 O2 Sat by Pulse 98 98 99 Oximetry 02/13/19 02/13/19 02/13/19 05:30 06:00 06:31 Temperature Pulse Rate 102 H 97 H 102 H Pulse Rate [ Anterior Bilateral Throughout] Pulse Rate [ From Monitor] Pulse Rate [ Posterior Throughout] Pulse Rate [ Right Radial] Respiratory 30 H 27 H 25 H Rate Respiratory Rate [Anterior Bilateral Throughout] Respiratory Rate [Posterior Throughout] Blood Pressure 167/92 154/88 158/93 O2 Sat by Pulse 96 98 98 Oximetry 02/13/19 02/13/19 02/13/19 07:01 07:06 07:23 Temperature Pulse Rate 86 90 Pulse Rate [ 86 Anterior Bilateral Throughout] Pulse Rate [ From Monitor] Pulse Rate [ 99 H Posterior Throughout] Pulse Rate [ Right Radial] Respiratory 24 Rate Respiratory 20 Rate [Anterior Bilateral Throughout] Respiratory 23 Rate [Posterior Throughout] Blood Pressure 158/93 139/72 O2 Sat by Pulse 99 99 Oximetry 02/13/19 02/13/19 02/13/19 07:30 07:45 08:00 Temperature 97.7 F Pulse Rate 93 H 101 H Pulse Rate [ Anterior Bilateral Throughout] Pulse Rate [ 82 From Monitor] Pulse Rate [ Posterior Throughout] Pulse Rate [ 82 Right Radial] Respiratory 21 22 Rate Respiratory Rate [Anterior Bilateral Throughout] Respiratory Rate [Posterior Throughout] Blood Pressure 139/72 139/72 O2 Sat by Pulse 100 100 Oximetry 02/13/19 02/13/19 02/13/19 08:01 08:30 08:59 Temperature Pulse Rate 110 H 100 H 96 H Pulse Rate [ Anterior Bilateral Throughout] Pulse Rate [ From Monitor] Pulse Rate [ Posterior Throughout] Pulse Rate [ Right Radial] Respiratory 28 H 29 H 31 H Rate Respiratory Rate [Anterior Bilateral Throughout] Respiratory Rate [Posterior Throughout] Blood Pressure 161/95 151/78 162/91 O2 Sat by Pulse 98 96 96 Oximetry 02/13/19 02/13/19 02/13/19 09:00 09:30 10:01 Temperature Pulse Rate 94 H 100 H 107 H Pulse Rate [ Anterior Bilateral Throughout] Pulse Rate [ From Monitor] Pulse Rate [ Posterior Throughout] Pulse Rate [ Right Radial] Respiratory 30 H 31 H 36 H Rate Respiratory Rate [Anterior Bilateral Throughout] Respiratory Rate [Posterior Throughout] Blood Pressure 162/91 150/97 150/97 O2 Sat by Pulse 96 95 Oximetry 02/13/19 02/13/19 02/13/19 10:31 11:00 11:31 Temperature Pulse Rate 96 H 84 114 H Pulse Rate [ Anterior Bilateral Throughout] Pulse Rate [ From Monitor] Pulse Rate [ Posterior Throughout] Pulse Rate [ Right Radial] Respiratory 28 H 23 27 H Rate Respiratory Rate [Anterior Bilateral Throughout] Respiratory Rate [Posterior Throughout] Blood Pressure 150/84 130/65 154/94 O2 Sat by Pulse Oximetry 02/13/19 02/13/19 02/13/19 11:54 12:00 12:31 Temperature 97.9 F Pulse Rate 94 H 96 H 87 Pulse Rate [ Anterior Bilateral Throughout] Pulse Rate [ 84 From Monitor] Pulse Rate [ Posterior Throughout] Pulse Rate [ 84 Right Radial] Respiratory 28 H 27 H 27 H Rate Respiratory Rate [Anterior Bilateral Throughout] Respiratory Rate [Posterior Throughout] Blood Pressure 154/94 154/78 144/67 O2 Sat by Pulse 99 100 100 Oximetry 02/13/19 13:01 Temperature Pulse Rate 88 Pulse Rate [ Anterior Bilateral Throughout] Pulse Rate [ From Monitor] Pulse Rate [ Posterior Throughout] Pulse Rate [ Right Radial] Respiratory 24 Rate Respiratory Rate [Anterior Bilateral Throughout] Respiratory Rate [Posterior Throughout] Blood Pressure 134/71 O2 Sat by Pulse 100 Oximetry - General Appearance General appearance: well-developed, well-nourished EENT: ATNC, PERRL, mucous membranes moist Neck: no JVD Respiratory: Present: Clear to Ascultation Cardiology: regular, S1S2 Gastrointestinal: normal, normoactive bowel sounds Integumentary: no rash Neurologic: confused, CN 3-12 intact Psychiatric: mood/affect appropriate - Lab 02/13/19 03:41 02/13/19 03:41 Most recent lab results ABG pH 7.440 pH Units (7.350-7.450) 02/11/19 04:10 ABG pCO2 37.4 mm Hg 02/11/19 04:10 ABG pO2 69.4 mm Hg (80.0-90.0) L 02/11/19 04:10 ABG HCO3 24.8 mmol/L (20.0-26.0) 02/11/19 04:10 ABG O2 Saturation 94.2 % (95.0-99.0) L 02/11/19 04:10 Calcium 8.5 mg/dL (8.4-10.2) 02/13/19 03:41 Magnesium 2.20 mg/dL (1.7-2.3) 02/07/19 01:07 92.9 mg/dL (0.1-20.0) H 02/09/19 18:54 116 mg/dL (5-11.8) H 02/09/19 18:54 - Imaging Chest x-ray: image reviewed (I reviewed CXR without overt edema. ) Medications & Allergies - Medications Allergies/Adverse Reactions: Allergies No Known Allergies Allergy (Verified 08/18/18 09:04) Home Medications: Home Medications Medication Instructions Recorded Confirmed Last Taken Type Levothyroxine [Synthroid] 112 mcg PO QAM 02/01/19 02/01/19 Unknown History Lisinopril [Zestril TAB] 40 mg PO QDAY 02/01/19 02/01/19 Unknown History amLODIPine [Norvasc] 10 mg PO DAILY 02/01/19 02/01/19 Unknown History cloNIDine [Catapres] 1 mg PO QDAY 02/01/19 02/01/19 Unknown History Active Medications: Generic Name Dose Route Start Last Admin Trade Name Freq PRN Reason Stop Dose Admin Acetaminophen 650 mg 02/01/19 10:47 02/13/19 12:35 Tylenol PO 650 mg Q4H PRN Administration Pain MILD(1-3)/Fever >100.5/VALENZUELA Albuterol 2.5 mg 02/01/19 10:47 Proventil IH Q4HRT PRN Shortness Of Breath Albuterol/Ipratropium 1 ampul 02/01/19 12:00 02/13/19 07:05 Duoneb *Not For Prn Use* IH 1 ampul Q6HRT AMOL Administration Lipase/Protease/Amylase 1 each 02/05/19 11:04 Pancreemeka Hammond 10,500 Unit FEEDTUBE PRN PRN For Clogged Feeding Tube Dexamethasone 4 mg 02/11/19 22:00 02/13/19 09:40 Decadron IV 4 mg Q12HR MAOL Administration Diltiazem HCl 60 mg 02/13/19 12:00 02/13/19 12:00 Cardizem PO 60 mg Q6H AMOL Administration Famotidine 20 mg 02/12/19 10:00 02/13/19 09:39 Pepcid PO 20 mg BID AMOL Administration Folic Acid 1 mg 02/06/19 10:00 02/13/19 09:40 Folvite PO 1 mg QDAY AMOL Administration Hydrophilic Ointment 1 applic 02/01/19 11:09 02/02/19 16:50 Vaseline Lip Therapy TP 1 applic Q2HR PRN Administration Dry Lips Ceftriaxone Sodium 2 gm in 100 mls @ 200 mls/hr 02/05/19 13:00 02/13/19 10:40 Rocephin/Ns 2 Gm/100 Ml IV 02/15/19 23:59 Infused Q12HR AMOL Infusion Protocol Sodium Chloride 1,000 mls @ 150 mls/hr 02/12/19 10:00 02/13/19 07:44 Nacl 0.45% 1000 Ml IV 150 mls/hr DIRECT AMOL Administration Insulin Glargine 30 units 02/11/19 16:36 02/12/19 21:00 Lantus SUB-Q 30 units QHS AMOL Administration Insulin Human Regular 0 units 02/10/19 19:00 02/13/19 12:00 Humulin R SUB-Q 3 units Q6HR AMOL Administration Protocol Levothyroxine Sodium 125 mcg 02/07/19 10:00 02/13/19 09:39 Synthroid PO 125 mcg QAM AMOL Administration Multi-Ingred Cream/Lotion/Oil/Oint 1 applic 02/01/19 11:09 02/08/19 21:18 Artificial Tears Ophth Oint OU 1 applic Q4HR PRN Administration Dry Eye(s) Multivitamins 5 ml 02/06/19 10:00 02/13/19 09:40 Centrum Liq PO 5 ml QDAY AMOL Administration Ondansetron HCl 4 mg 02/01/19 10:47 Zofran IV Q8H PRN Nausea And Vomiting Simple Syrup 15 ml 02/05/19 11:04 Simple Syrup FEEDTUBE PRN PRN Hypoglycemia Simple Syrup 30 ml 02/05/19 11:04 Simple Syrup FEEDTUBE PRN PRN Hypoglycemia Sodium Bicarbonate 325 mg 02/05/19 11:04 Sodium Bicarbonate FEEDTUBE PRN PRN For Clogged Feeding Tube Sodium Chloride 10 ml 02/01/19 22:00 02/13/19 09:42 Sodium Chloride Flush Syringe 10 Ml IV 10 ml BID AMOL Administration Sodium Chloride 10 ml 02/01/19 10:47 Sodium Chloride Flush Syringe 10 Ml IV PRN PRN LINE FLUSH
--- NOTE | 2019-02-13 15:41 | Progress Note ---
Assessment and Plan Cultures: 02/01/2019 blood culture: Strep pneumoniae in 4/4 bottles 02/01/2019 urine culture: no growth 02/01/2019 tracheal aspirate: Strep species 02/02/2019 blood culture: no growth 02/05/2019 CSF culture: no growth 02/10/2019 sputum Cx: Stenotrophomonas 02/01/2019 C3: 36 (low) 02/01/2019 C4: 12 (low) CHESTER positive 1:320 HIV: non reactive RPR: non reactive Hepatitis panel: non reactive Bartonella serology: negative A/P: 53-year-old female with hypothyroidism, hypertension, ?autoimmune disease. Admitted with: 1) Severe sepsis with Strep pneumoniae bacteremia, pneumonia and meningitis: TTE showed some ?pulmonic valve vegetation. TERRENCE was negative for vegetations per cardiology. CSF shows WBC 1250, RBC 30, PMN 30%, Glucose 38, Protein 140. 2) Right neck severe lymphadenopathy: CT neck was without contrast, hence limited eval of vasculature. Neck US revealed extensive R neck lymphadenopathy, no abscess. HIV, RPR negative. Bartonella serologies negative. On 02/07/2019, patient's mother showed me paperwork from patient's PCP, patient was seen on 01/30/2019 at PCP office for R neck lump, was given medrol dose kevin and ultrasound was ordered. Once creatinine improves, may need CT chest, abdomen pelvis with IV contrast to evaluate for other lymphadenopathy, although the lymphadenopathy may be from lupus. 3) Bilateral pneumonia: sputum culture also growing Strep, likely Strep pneumoniae. Repeat cultures with Stenotrophomonas. Likely a colonizer as her infectious status continues to improve. Frequent colonizer of tubes. 4) Acute renal failure: Nephrology following. Creatinine worse today. 5) ?Autoimmune disease: likely lupus. C3, C4 came back low. CHESTER positive 1:320. ANCA negative. 6) Thrombocytopenia: improved. Hematology following. Sepsis v/s autoimmune in etiology. 7) Acute encephalopathy: secondary to meningitis. MRI brain showed acute ischemic changes in the posterior distribution of the R MCA, right frontal and parietal deep white matter and left frontal deep white matter, additional foci of ischemic change in b/l cerebellar hemispheres. 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 CHESTER positive 1:320 suggestive of lupus. ds-DNA pending She is out of the window for steroids as adjunctive therapy for Pneumococcal meningitis, however, mental status remains poor and with underlying autoimmune disease and ?renal dysfunction, OK from ID standpoint for steroids. Was started on Dexamethasone 02/09/2019 Overall guarded prognosis Will follow. Edith Mi MD [facility] ([facility]) M: [phone] O: [phone] F: [phone] Subjective Date of service: 02/13/19 Principal diagnosis: sepsis, pneumonia, acute kidney injury, acute metabolic encephalopathy Interval history: Remains non-responsive. Objective - Exam Narrative Exam: Physical Exam: Constitutional: opens eyes, tracking, not following commands, intubated Head, Ears, Nose: Normocephalic, atraumatic. External ears, nose normal Eyes: Conjunctivae/corneas clear. No icterus. No ptosis. Neck: R cervical lymphadenopathy, moderately improved Oral: intubated Cardiovascular: S1, S2 normal, irregular Respiratory: AE clear bilaterally, no wheeze GI: Soft, non-tender; bowel sounds normal. No peritoneal signs Musculoskeletal: No pedal edema, no cyanosis. Skin: No rash or abscess Hem/Lymphatic: No palpable cervical or supraclavicular nodes. No lymphangitis Psych: no agitation Neurological: opens eyes, tracking, not following commands, on the vent - Constitutional Vitals: Vital Signs Temp Pulse Resp BP Pulse Ox 97.9 F 85 23 145/73 100 02/13/19 12:00 02/13/19 14:00 02/13/19 14:00 02/13/19 14:00 02/13/19 14:00 Temperature -Last 24 Hours Temperature 97.9 F Temperature 97.7 F Temperature 99.1 F Temperature 99.2 F Temperature 97.7 F Temperature 97.9 F - Labs CBC & Chem 7: 02/13/19 03:41 02/13/19 03:41 Labs: Abnormal lab results 02/12/19 02/12/19 02/12/19 Range/Units 17:18 21:46 23:58 WBC (4.5-11.0) K/mm3 RBC (3.65-5.03) M/mm3 RDW (13.2-15.2) % Plt Count (140-440) K/mm3 Seg Neuts % (Manual) (40.0-70.0) % Lymphocytes % (Manual) (13.4-35.0) % Seg Neutrophils # Man (1.8-7.7) K/mm3 Lymphocytes # (Manual) (1.2-5.4) K/mm3 Potassium (3.6-5.0) mmol/L Chloride (98-107) mmol/L BUN (7-17) mg/dL Glucose (65-100) mg/dL POC Glucose 280 H 222 H 208 H (70-105) AST (5-40) units/L Alkaline Phosphatase (35-129) units/L Albumin (3.9-5) g/dL 02/13/19 02/13/19 02/13/19 Range/Units 03:41 03:41 05:40 WBC 11.6 H (4.5-11.0) K/mm3 RBC 3.53 L (3.65-5.03) M/mm3 RDW 15.8 H (13.2-15.2) % Plt Count 98 L (140-440) K/mm3 Seg Neuts % (Manual) 97.0 H (40.0-70.0) % Lymphocytes % (Manual) 2.0 L (13.4-35.0) % Seg Neutrophils # Man 11.3 H (1.8-7.7) K/mm3 Lymphocytes # (Manual) 0.2 L (1.2-5.4) K/mm3 Potassium 3.4 L (3.6-5.0) mmol/L Chloride 109.7 H (98-107) mmol/L BUN 108 H (7-17) mg/dL Glucose 182 H (65-100) mg/dL POC Glucose 179 H (70-105) AST 45 H (5-40) units/L Alkaline Phosphatase 150 H (35-129) units/L Albumin 1.8 L (3.9-5) g/dL 02/13/19 Range/Units 11:31 WBC (4.5-11.0) K/mm3 RBC (3.65-5.03) M/mm3 RDW (13.2-15.2) % Plt Count (140-440) K/mm3 Seg Neuts % (Manual) (40.0-70.0) % Lymphocytes % (Manual) (13.4-35.0) % Seg Neutrophils # Man (1.8-7.7) K/mm3 Lymphocytes # (Manual) (1.2-5.4) K/mm3 Potassium (3.6-5.0) mmol/L Chloride (98-107) mmol/L BUN (7-17) mg/dL Glucose (65-100) mg/dL POC Glucose 193 H (70-105) AST (5-40) units/L Alkaline Phosphatase (35-129) units/L Albumin (3.9-5) g/dL
[2019-02-13] MEDS: INSULIN GLARGINE 100 UNITS/ML SUB-Q SCH (21:08)
[2019-02-14] MEDS: dilTIAZem 60 MG TAB PO SCH ×5 (01:00→23:57)
[2019-02-14] MEDS: IPRATROPIUM/ALBUTEROL SULFATE 3 ML AMPUL.NEB IH SCH ×4 (03:34→19:39)
[2019-02-14 04:43] LABS: Hematocrit 34.1 % (30.3-42.9); Mean Corpuscular HGB Conc 32 % (30-34); Mean Corpuscular Volume 90 fl (79-97); Platelet Count 241 K/mm3 (140-440); Red Blood Count 3.78 M/mm3 (3.65-5.03)
[2019-02-14 05:07] LABS: Alanine Aminotransferase 40 units/L (7-56); Albumin 1.7 g/dL (3.9-5); BUN/Creatinine Ratio 87; Blood Urea Nitrogen 96 mg/dL (7-17); Calcium 8.2 mg/dL (8.4-10.2); Hemolysis Index 22
[2019-02-14] MEDS: INSULIN REGULAR, HUMAN 100 UNITS/1 ML SUB-Q SCH ×5 (06:00→23:56)
[2019-02-14] MEDS: DEXTROSE 5% IN WATER 1,000 ML IV SCH ×2 (06:20→19:07)
[2019-02-14 07:08] LABS: Band Neutrophils # (Manual) 0.1 K/mm3; Basophils % (Manual) 0 % (0.0-1.8); Eosinophils % (Manual) 0 % (0.0-4.3); Total Cells Counted 100
[2019-02-14 07:09] LABS: Anisocytosis Few; Macrocytosis 1+; Ovalocytes Few; Platelet Estimate Consistent w Auto; Schistocytes Few; Target Cells Few
[2019-02-14] MEDS ORDERED: MAGNESIUM SULFATE 4 GM/100 ML BAG IV ONE (08:00)
[2019-02-14] MEDS ORDERED: POTASSIUM CHLORIDE 20 MEQ PACKET FEEDTUBE ONE (08:00)
--- NOTE | 2019-02-14 08:15 | Hem/Onc Progress Note ---
Assessment and Plan 1. h/o Thrombocytopenia, sepsis/infection/antibiotic related. Folate level is low, B12 is normal. Serum iron is low, but ferritin is not low. HIV negative. Fibrinogen level is not low. PT, PTT is not abnormal. Supportive care at this time will help the patient. 2. Diabetes. 3. Hypothyroidism. 4. History of renal impairment, on supportive care. 5. Intubation for respiratory issues. 6. Neurology team saw the patient. Neurology thinks it is septic metabolic encephalopathy. I will follow the patient during inpatient stay. 02/14 plt normalized low folate on replacement pt still - on vent - opens eye neurology following TERRENCE done trach peg eval - Patient Problems (1) Thrombocytopenia Current Visit: Yes Status: Acute Subjective Date of service: 02/14/19 Principal diagnosis: h/o low plt - cva Interval history: opens eye, moves rt arm Objective - Exam Narrative Exam: Pain - not evaluable General appearance intubated Performance status complete dependent Eyes - no icterus ENT - no bleeding - on vent LNs cervical not palpable Neck - no LN Respiratory Normal Breath sounds - CTA anteriorly CVS S1 S2 + Extremities normal temperature General GI Soft Rectal deferred female - deferred Skin warm Musculoskeletal moves rt arm Neurologically opens eyes - Constitutional Vitals: Last Vital Signs Temp 97.8 F 02/14/19 04:00 Pulse 78 02/14/19 07:55 Resp 22 02/14/19 07:55 BP 135/67 02/14/19 07:53 Pulse Ox 96 02/14/19 07:53 - Labs Lab Results: Laboratory Results - last 24 hr 02/13/19 02/13/19 02/13/19 03:41 11:31 18:01 WBC RBC Hgb Hct MCV MCH MCHC RDW Plt Count Add Manual Diff Complete Total Counted 100 Seg Neutrophils % Seg Neuts % (Manual) 97.0 H Band Neutrophils % 0 Lymphocytes % (Manual) 2.0 L Reactive Lymphs % (Man) 0 Monocytes % (Manual) 1.0 Eosinophils % (Manual) 0 Basophils % (Manual) 0 Metamyelocytes % 0 Myelocytes % 0 Promyelocytes % 0 Blast Cells % 0 Nucleated RBC % Not Reportable Seg Neutrophils # Man 11.3 H Band Neutrophils # 0.0 Lymphocytes # (Manual) 0.2 L Abs React Lymphs (Man) 0.0 Monocytes # (Manual) 0.1 Eosinophils # (Manual) 0.0 Basophils # (Manual) 0.0 Metamyelocytes # 0.0 Myelocytes # 0.0 Promyelocytes # 0.0 Blast Cells # 0.0 WBC Morphology Not Reportable Hypersegmented Neuts Not Reportable Hyposegmented Neuts Not Reportable Hypogranular Neuts Not Reportable Smudge Cells Not Reportable Toxic Granulation Not Reportable Toxic Vacuolation Not Reportable Dohle Bodies Not Reportable Pelger-Huet Anomaly Not Reportable Raghav Rods Not Reportable Platelet Estimate Consistent w auto Clumped Platelets Not Reportable Plt Clumps, EDTA Not Reportable Large Platelets Not Reportable Giant Platelets Not Reportable Platelet Satelliting Not Reportable Plt Morphology Comment Not Reportable RBC Morphology Not Reportable Dimorphic RBCs Not Reportable Polychromasia Few Hypochromasia Not Reportable Poikilocytosis Not Reportable Anisocytosis Few Microcytosis Not Reportable Macrocytosis 1+ Spherocytes Not Reportable Pappenheimer Bodies Not Reportable Sickle Cells Not Reportable Target Cells Few Tear Drop Cells Not Reportable Ovalocytes Few Helmet Cells Not Reportable [place] Bodies Not Reportable [place] Rings Not Reportable [place] Cells Few Bite Cells Not Reportable Crenated Cell Not Reportable Elliptocytes Not Reportable Acanthocytes (Spur) Not Reportable Rouleaux Not Reportable Hemoglobin C Crystals Not Reportable Schistocytes Not Reportable Malaria parasites Not Reportable Riccardo Bodies Not Reportable Hem Pathologist Commnt No Sodium Potassium Chloride Carbon Dioxide Anion Gap BUN Creatinine Estimated GFR BUN/Creatinine Ratio Glucose POC Glucose 193 H 151 H Calcium Magnesium Total Bilirubin AST ALT Alkaline Phosphatase Total Protein Albumin Albumin/Globulin Ratio 02/13/19 02/14/19 02/14/19 23:47 04:03 04:03 WBC 9.5 RBC 3.78 Hgb 11.0 Hct 34.1 MCV 90 MCH 29 MCHC 32 RDW 16.0 H Plt Count 241 D Add Manual Diff Complete Total Counted 100 Seg Neutrophils % Housekeeping Aide Seg Neuts % (Manual) 94.0 H Band Neutrophils % 1.0 Lymphocytes % (Manual) 2.0 L Reactive Lymphs % (Man) 0 Monocytes % (Manual) 3.0 Eosinophils % (Manual) 0 Basophils % (Manual) 0 Metamyelocytes % 0 Myelocytes % 0 Promyelocytes % 0 Blast Cells % 0 Nucleated RBC % Not Reportable Seg Neutrophils # Man 8.9 H Band Neutrophils # 0.1 Lymphocytes # (Manual) 0.2 L Abs React Lymphs (Man) 0.0 Monocytes # (Manual) 0.3 Eosinophils # (Manual) 0.0 Basophils # (Manual) 0.0 Metamyelocytes # 0.0 Myelocytes # 0.0 Promyelocytes # 0.0 Blast Cells # 0.0 WBC Morphology Not Reportable Hypersegmented Neuts Not Reportable Hyposegmented Neuts Not Reportable Hypogranular Neuts Not Reportable Smudge Cells Not Reportable Toxic Granulation Not Reportable Toxic Vacuolation Not Reportable Dohle Bodies Not Reportable Pelger-Huet Anomaly Not Reportable Raghav Rods Not Reportable Platelet Estimate Consistent w auto Clumped Platelets Not Reportable Plt Clumps, EDTA Not Reportable Large Platelets Not Reportable Giant Platelets Not Reportable Platelet Satelliting Not Reportable Plt Morphology Comment Not Reportable RBC Morphology Not Reportable Dimorphic RBCs Not Reportable Polychromasia Few Hypochromasia Not Reportable Poikilocytosis Not Reportable Anisocytosis Few Microcytosis Not Reportable Macrocytosis 1+ Spherocytes Not Reportable Pappenheimer Bodies Not Reportable Sickle Cells Not Reportable Target Cells Few Tear Drop Cells Not Reportable Ovalocytes Few Helmet Cells Not Reportable [place] Bodies Not Reportable [place] Rings Not Reportable [place] Cells Not Reportable Bite Cells Not Reportable Crenated Cell Not Reportable Elliptocytes Not Reportable Acanthocytes (Spur) Not Reportable Rouleaux Not Reportable Hemoglobin C Crystals Not Reportable Schistocytes Few Malaria parasites Not Reportable Riccardo Bodies Not Reportable Hem Pathologist Commnt No Sodium 142 Potassium 3.4 L Chloride 108.7 H Carbon Dioxide 21 L Anion Gap 16 BUN 96 H Creatinine 1.1 Estimated GFR > 60 BUN/Creatinine Ratio 87 Glucose 129 H POC Glucose 144 H Calcium 8.2 L Magnesium Total Bilirubin 0.30 AST 65 H ALT 40 Alkaline Phosphatase 164 H Total Protein 6.7 Albumin 1.7 L Albumin/Globulin Ratio 0.3 02/14/19 02/14/19 04:03 05:10 WBC RBC Hgb Hct MCV MCH MCHC RDW Plt Count Add Manual Diff Total Counted Seg Neutrophils % Seg Neuts % (Manual) Band Neutrophils % Lymphocytes % (Manual) Reactive Lymphs % (Man) Monocytes % (Manual) Eosinophils % (Manual) Basophils % (Manual) Metamyelocytes % Myelocytes % Promyelocytes % Blast Cells % Nucleated RBC % Seg Neutrophils # Man Band Neutrophils # Lymphocytes # (Manual) Abs React Lymphs (Man) Monocytes # (Manual) Eosinophils # (Manual) Basophils # (Manual) Metamyelocytes # Myelocytes # Promyelocytes # Blast Cells # WBC Morphology Hypersegmented Neuts Hyposegmented Neuts Hypogranular Neuts Smudge Cells Toxic Granulation Toxic Vacuolation Dohle Bodies Pelger-Huet Anomaly Raghav Rods Platelet Estimate Clumped Platelets Plt Clumps, EDTA Large Platelets Giant Platelets Platelet Satelliting Plt Morphology Comment RBC Morphology Dimorphic RBCs Polychromasia Hypochromasia Poikilocytosis Anisocytosis Microcytosis Macrocytosis Spherocytes Pappenheimer Bodies Sickle Cells Target Cells Tear Drop Cells Ovalocytes Helmet Cells [place] Bodies [place] Rings [place] Cells Bite Cells Crenated Cell Elliptocytes Acanthocytes (Spur) Rouleaux Hemoglobin C Crystals Schistocytes Malaria parasites Riccardo Bodies Hem Pathologist Commnt Sodium Potassium Chloride Carbon Dioxide Anion Gap BUN Creatinine Estimated GFR BUN/Creatinine Ratio Glucose POC Glucose 145 H Calcium Magnesium 1.60 L Total Bilirubin AST ALT Alkaline Phosphatase Total Protein Albumin Albumin/Globulin Ratio Medications & Allergies - Medications Allergies/Adverse Reactions: Allergies No Known Allergies Allergy (Verified 08/18/18 09:04) Home Medications: Home Medications Medication Instructions Recorded Confirmed Last Taken Type Levothyroxine [Synthroid] 112 mcg PO QAM 02/01/19 02/01/19 Unknown History Lisinopril [Zestril TAB] 40 mg PO QDAY 02/01/19 02/01/19 Unknown History amLODIPine [Norvasc] 10 mg PO DAILY 02/01/19 02/01/19 Unknown History cloNIDine [Catapres] 1 mg PO QDAY 02/01/19 02/01/19 Unknown History Active Medications: Generic Name Dose Route Start Last Admin Trade Name Freq PRN Reason Stop Dose Admin Acetaminophen 650 mg 02/01/19 10:47 02/13/19 12:35 Tylenol PO 650 mg Q4H PRN Administration Pain MILD(1-3)/Fever >100.5/VALENZUELA Albuterol 2.5 mg 02/01/19 10:47 Proventil IH Q4HRT PRN Shortness Of Breath Albuterol/Ipratropium 1 ampul 02/01/19 12:00 02/14/19 07:55 Duoneb *Not For Prn Use* IH 1 ampul Q6HRT AMOL Administration Lipase/Protease/Amylase 1 each 02/05/19 11:04 02/13/19 21:35 Pancreazchris Hammond 10,500 Unit FEEDTUBE 1 each PRN PRN Administration For Clogged Feeding Tube Dexamethasone 4 mg 02/11/19 22:00 02/13/19 21:10 Decadron IV 4 mg Q12HR AMOL Administration Diltiazem HCl 60 mg 02/13/19 12:00 02/14/19 06:17 Cardizem PO 60 mg Q6H AMOL Administration Famotidine 20 mg 02/12/19 10:00 02/13/19 21:09 Pepcid PO 20 mg BID AMOL Administration Folic Acid 1 mg 02/06/19 10:00 02/13/19 09:40 Folvite PO 1 mg QDAY AMOL Administration Hydralazine HCl 10 mg 02/13/19 22:15 Apresoline IV Q6H PRN Hypertension Hydrophilic Ointment 1 applic 02/01/19 11:09 02/02/19 16:50 Vaseline Lip Therapy TP 1 applic Q2HR PRN Administration Dry Lips Ceftriaxone Sodium 2 gm in 100 mls @ 200 mls/hr 02/05/19 13:00 02/13/19 21:08 Rocephin/Ns 2 Gm/100 Ml IV 02/15/19 23:59 100 mls/hr Q12HR AMOL Administration Protocol Dextrose 1,000 mls @ 75 mls/hr 02/14/19 06:00 02/14/19 06:20 D5w IV 75 mls/hr DIRECT AMOL Administration Magnesium Sulfate 4 gm in 100 mls @ 25 mls/hr 02/14/19 08:00 Magnesium Sulfate 4gm/100ml IV 02/14/19 11:59 ONCE ONE Insulin Glargine 30 units 02/11/19 16:36 02/13/19 21:08 Lantus SUB-Q 30 units QHS AMOL Administration Insulin Human Regular 0 units 02/10/19 19:00 02/13/19 18:00 Humulin R SUB-Q 3 units Q6HR AMOL Administration Protocol Levothyroxine Sodium 125 mcg 02/07/19 10:00 02/13/19 09:39 Synthroid PO 125 mcg QAM AMOL Administration Multi-Ingred Cream/Lotion/Oil/Oint 1 applic 02/01/19 11:09 02/08/19 21:18 Artificial Tears Ophth Oint OU 1 applic Q4HR PRN Administration Dry Eye(s) Multivitamins 5 ml 02/06/19 10:00 02/13/19 09:40 Centrum Liq PO 5 ml QDAY AMOL Administration Ondansetron HCl 4 mg 02/01/19 10:47 Zofran IV Q8H PRN Nausea And Vomiting Simple Syrup 15 ml 02/05/19 11:04 Simple Syrup FEEDTUBE PRN PRN Hypoglycemia Simple Syrup 30 ml 02/05/19 11:04 Simple Syrup FEEDTUBE PRN PRN Hypoglycemia Sodium Bicarbonate 325 mg 02/05/19 11:04 02/13/19 21:35 Sodium Bicarbonate FEEDTUBE 325 mg PRN PRN Administration For Clogged Feeding Tube Sodium Chloride 10 ml 02/01/19 22:00 02/13/19 09:42 Sodium Chloride Flush Syringe 10 Ml IV 10 ml BID AMOL Administration Sodium Chloride 10 ml 02/01/19 10:47 Sodium Chloride Flush Syringe 10 Ml IV PRN PRN LINE FLUSH
[2019-02-14] MEDS: MULTIVITAMINS 5 ML ORAL LIQUID PO SCH (09:31)
[2019-02-14] MEDS: cefTRIAXone/NS 2 GM/100 ML 2 GM/100 ML BAG IV SCH ×2 (09:31→22:50)
[2019-02-14] MEDS: FOLIC ACID 1 MG TAB PO SCH (09:32)
[2019-02-14] MEDS: dexAMETHasone 4 MG/ML VIAL IV SCH ×2 (09:32→22:11)
[2019-02-14] MEDS: FAMOTIDINE 20 MG TAB PO SCH ×2 (09:32→22:11)
[2019-02-14] MEDS: LEVOTHYROXINE 125 MCG TAB PO SCH (09:32)
--- NOTE | 2019-02-14 10:52 | Progress Note ---
Assessment and Plan Cont present cardiac management. The patient has been seen in conjunction with Dr. Hodge who agrees with the assessment and plan of care. - Patient Problems (1) Sepsis Current Visit: Yes Status: Acute (2) Bacteremia Current Visit: Yes Status: Acute (3) Meningitis Current Visit: Yes Status: Acute (4) Pneumonia Current Visit: Yes Status: Acute (5) Acute respiratory failure Current Visit: Yes Status: Acute (6) Atrial fibrillation with RVR Current Visit: Yes Status: Resolved (7) Altered mental status Current Visit: Yes Status: Acute (8) Cellulitis, neck Current Visit: Yes Status: Acute (9) Thrombocytopenia Current Visit: Yes Status: Acute (10) DIANA (acute kidney injury) Current Visit: Yes Status: Acute (11) PFO (patent foramen ovale) Current Visit: Yes Status: Chronic Subjective Date of service: 02/14/19 Principal diagnosis: low plt Interval history: pt remains intubated, eyes open, primary RN states she is following some commands with her right side, tracking movement with her eyes. in SR on tele. no family at bedside. Objective Last Vital Signs Temp 98.0 F 02/14/19 08:00 Pulse 72 02/14/19 09:00 Resp 21 02/14/19 09:00 BP 129/60 02/14/19 09:00 Pulse Ox 98 02/14/19 09:00 - Physical Examination General: Other (intubated, eyes open) HEENT: Positive: Normocephaly Neck: Positive: neck supple Cardiac: Positive: Reg Rate and Rhythm, S1/S2 Lungs: Positive: Decreased Breath Sounds, Oxygen, Ventilated Respirations Neuro: Positive: Other (intubated, eyes open ) Abdomen: Positive: Unremarkable /Rectal: Other (deferred) Skin: Positive: Clear Musculoskeletal: Decreased Range of Motion Extremities: Present: normal - Labs and Meds Cardiac Enzymes 02/14/19 Range/Units 04:03 AST 65 H (5-40) units/L CBC 02/14/19 Range/Units 04:03 WBC 9.5 (4.5-11.0) K/mm3 RBC 3.78 (3.65-5.03) M/mm3 Hgb 11.0 (10.1-14.3) gm/dl Hct 34.1 (30.3-42.9) % Plt Count 241 D (140-440) K/mm3 Comprehensive Metabolic Panel 02/14/19 Range/Units 04:03 Sodium 142 (137-145) mmol/L Potassium 3.4 L (3.6-5.0) mmol/L Chloride 108.7 H (98-107) mmol/L Carbon Dioxide 21 L (22-30) mmol/L BUN 96 H (7-17) mg/dL Creatinine 1.1 (0.7-1.2) mg/dL Glucose 129 H (65-100) mg/dL Calcium 8.2 L (8.4-10.2) mg/dL AST 65 H (5-40) units/L ALT 40 (7-56) units/L Alkaline Phosphatase 164 H (35-129) units/L Total Protein 6.7 (6.3-8.2) g/dL Albumin 1.7 L (3.9-5) g/dL - Imaging and Cardiology EKG: report reviewed, image reviewed Echo: report reviewed ( 02/02/2019 showed EF 55-60%, mild to mod LVH, atrial septal aneurysm, aortic valve heavily calcified, dense mitral annular calcification, mild MR, mild TR, mild UT, bubble study suggestive of PFO, ? pulm onic valve vegetation.) - EKG Ventricular dysrhythmias: ventricular premature com
--- NOTE | 2019-02-14 12:18 | Progress Note ---
Assessment and Plan 53 y/o female with strep pneumonae bacteremia, meningitis and now stroke with acute respiratory failure and continued azotemia. 1. Neuro: Mental state appears to be improving. Found out this am that patient had actually been pulsed with steroids on the and but was stopped after this. I restarted steroids on not knowing about the pulse doses. Renal did decrease this dose secondary to a bump in BUN but remains on decadron. At this point, unsure if steroids helped or if the patient started waking up on her own. Given improvement, would like to continue as long as it isnt compromising renal function. Will discuss tomorrow about weaning. 2. MSK: Will consult PT now that patient is awake. She did have a large stroke on the right. Unable to get patient to follow commands outside of tracking with eyes but maybe a good candidate for some passive range of motion activities. 3. Renal: Cr improving but BUN remains elevated. BUN was elevated prior to starting of current decadron dosing. Follow up any new renal recs. Discontinue weir and place purewick 4. CV-Follow up cards recs. 5. Tolerating feeds 6. Overall prognosis remains guarded, however good that patient is awake. Family in agreement with trach and peg. Will consult surgery for this. Total critical care time 31 minutes Subjective Date of service: 02/14/19 Principal diagnosis: low plt Interval history: Family at bedside, Son and Mother. Cousin on phone. Spoke with them with Mrs. Pickett at the bedside this. Discussed trach and peg and patient is in agreement. Will consult surgery. Objective Vital Signs - 12hr 02/14/19 02/14/19 02/14/19 00:31 01:00 01:30 Temperature Pulse Rate 95 H 73 75 Pulse Rate [ Anterior Bilateral Throughout] Pulse Rate [ From Monitor] Pulse Rate [ Posterior Throughout] Pulse Rate [ Right Radial] Respiratory 27 H 20 20 Rate Respiratory Rate [Anterior Bilateral Throughout] Respiratory Rate [Posterior Throughout] Blood Pressure 168/96 135/83 142/79 O2 Sat by Pulse 97 98 97 Oximetry 02/14/19 02/14/19 02/14/19 02:00 02:30 03:00 Temperature Pulse Rate 81 83 85 Pulse Rate [ Anterior Bilateral Throughout] Pulse Rate [ 86 From Monitor] Pulse Rate [ Posterior Throughout] Pulse Rate [ 86 Right Radial] Respiratory 23 20 24 Rate Respiratory Rate [Anterior Bilateral Throughout] Respiratory Rate [Posterior Throughout] Blood Pressure 146/85 125/84 140/85 O2 Sat by Pulse 99 99 98 Oximetry 02/14/19 02/14/19 02/14/19 03:30 03:35 04:00 Temperature 97.8 F Pulse Rate 82 85 Pulse Rate [ 88 Anterior Bilateral Throughout] Pulse Rate [ 86 From Monitor] Pulse Rate [ Posterior Throughout] Pulse Rate [ 86 Right Radial] Respiratory 24 24 Rate Respiratory 25 H Rate [Anterior Bilateral Throughout] Respiratory Rate [Posterior Throughout] Blood Pressure 147/85 147/85 O2 Sat by Pulse 98 98 100 Oximetry 02/14/19 02/14/19 02/14/19 04:01 04:30 05:00 Temperature Pulse Rate 85 82 88 Pulse Rate [ Anterior Bilateral Throughout] Pulse Rate [ From Monitor] Pulse Rate [ Posterior Throughout] Pulse Rate [ Right Radial] Respiratory 23 24 26 H Rate Respiratory Rate [Anterior Bilateral Throughout] Respiratory Rate [Posterior Throughout] Blood Pressure 147/85 144/74 146/77 O2 Sat by Pulse 100 98 97 Oximetry 02/14/19 02/14/19 02/14/19 05:30 06:00 06:17 Temperature Pulse Rate 85 93 H 89 Pulse Rate [ Anterior Bilateral Throughout] Pulse Rate [ 86 From Monitor] Pulse Rate [ Posterior Throughout] Pulse Rate [ 86 Right Radial] Respiratory 24 27 H Rate Respiratory Rate [Anterior Bilateral Throughout] Respiratory Rate [Posterior Throughout] Blood Pressure 154/77 149/83 149/83 O2 Sat by Pulse 98 98 Oximetry 02/14/19 02/14/19 02/14/19 06:30 07:00 07:30 Temperature Pulse Rate 88 87 85 Pulse Rate [ Anterior Bilateral Throughout] Pulse Rate [ From Monitor] Pulse Rate [ Posterior Throughout] Pulse Rate [ Right Radial] Respiratory 24 27 H 25 H Rate Respiratory Rate [Anterior Bilateral Throughout] Respiratory Rate [Posterior Throughout] Blood Pressure 146/78 143/70 135/67 O2 Sat by Pulse 98 98 98 Oximetry 02/14/19 02/14/19 02/14/19 07:48 07:53 07:55 Temperature Pulse Rate 89 81 Pulse Rate [ Anterior Bilateral Throughout] Pulse Rate [ From Monitor] Pulse Rate [ 78 Posterior Throughout] Pulse Rate [ Right Radial] Respiratory 24 Rate Respiratory Rate [Anterior Bilateral Throughout] Respiratory 22 Rate [Posterior Throughout] Blood Pressure 135/67 135/67 O2 Sat by Pulse 96 96 Oximetry 02/14/19 02/14/19 02/14/19 08:00 08:30 09:00 Temperature 98.0 F Pulse Rate 83 80 72 Pulse Rate [ Anterior Bilateral Throughout] Pulse Rate [ 91 H From Monitor] Pulse Rate [ Posterior Throughout] Pulse Rate [ 91 H Right Radial] Respiratory 24 22 21 Rate Respiratory Rate [Anterior Bilateral Throughout] Respiratory Rate [Posterior Throughout] Blood Pressure 147/73 136/67 129/60 O2 Sat by Pulse 100 97 98 Oximetry 02/14/19 02/14/19 02/14/19 09:30 10:00 10:30 Temperature Pulse Rate 84 88 86 Pulse Rate [ Anterior Bilateral Throughout] Pulse Rate [ From Monitor] Pulse Rate [ Posterior Throughout] Pulse Rate [ Right Radial] Respiratory 30 H 26 H 24 Rate Respiratory Rate [Anterior Bilateral Throughout] Respiratory Rate [Posterior Throughout] Blood Pressure 139/58 140/57 137/60 O2 Sat by Pulse 94 97 98 Oximetry 02/14/19 02/14/19 02/14/19 11:00 11:30 11:31 Temperature Pulse Rate 84 105 H 107 H Pulse Rate [ Anterior Bilateral Throughout] Pulse Rate [ From Monitor] Pulse Rate [ Posterior Throughout] Pulse Rate [ Right Radial] Respiratory 26 H 31 H 33 H Rate Respiratory Rate [Anterior Bilateral Throughout] Respiratory Rate [Posterior Throughout] Blood Pressure 129/58 153/85 153/85 O2 Sat by Pulse 97 97 97 Oximetry 02/14/19 11:51 Temperature Pulse Rate 90 Pulse Rate [ Anterior Bilateral Throughout] Pulse Rate [ From Monitor] Pulse Rate [ Posterior Throughout] Pulse Rate [ Right Radial] Respiratory Rate Respiratory Rate [Anterior Bilateral Throughout] Respiratory Rate [Posterior Throughout] Blood Pressure 153/83 O2 Sat by Pulse Oximetry Constitutional: other (orally intubated on mechanical ventilator. Not on sedation, awake, critically ill) Eyes: non-icteric ENT: oropharynx moist Neck: supple Effort: normal Ascultation: Bilateral: other (coarse BS bilaterally) Cardiovascular: other (tachy, RR; no mrg) Gastrointestinal: normoactive bowel sounds, soft, non-tender, non-distended Integumentary: normal Extremities: no cyanosis, no edema, pink and warm Neurologic: other (eyes open, not following commands or moving extremities) Psychiatric: other (unable to assess) CBC and BMP: 02/14/19 04:03 02/14/19 04:03 ABG, PT/INR, D-dimer: ABG POC ABG pH 7.418 (7.35-7.45) 02/12/19 05:36 ABG pH 7.440 pH Units (7.350-7.450) 02/11/19 04:10 POC ABG pCO2 36.9 (35-45) 02/12/19 05:36 ABG pCO2 37.4 mm Hg 02/11/19 04:10 POC ABG pO2 92 (80-105) 02/12/19 05:36 ABG pO2 69.4 mm Hg (80.0-90.0) L 02/11/19 04:10 POC ABG HCO3 23.8 (22-26 mml/L) 02/12/19 05:36 POC ABG Total CO2 25 (23-27mmol/L) 02/12/19 05:36 POC ABG O2 Sat 97 02/12/19 05:36 ABG O2 Saturation 94.2 % (95.0-99.0) L 02/11/19 04:10 PT/INR, D-dimer PT 16.3 Sec. (12.2-14.9) H 02/06/19 07:35 INR 1.35 (0.87-1.13) H 02/06/19 07:35 Abnormal lab findings: Abnormal Labs 02/01/19 02/01/19 02/01/19 07:16 07:16 07:16 WBC 17.7 H RBC Hgb Hct RDW 16.9 H Plt Count 62 L Seg Neuts % (Manual) 95.0 H Lymphocytes % (Manual) 0 L Seg Neutrophils # Man 16.8 H Lymphocytes # (Manual) 0.0 L PT 15.0 H INR 1.21 H APTT Thrombin Time 20.0 H POC ABG pH ABG pH POC ABG pCO2 POC ABG pO2 ABG pO2 ABG HCO3 ABG O2 Saturation ABG Base Excess ABG Hemoglobin Oxyhemoglobin Sodium 135 L Potassium Chloride 97.7 L Carbon Dioxide 19 L BUN 51 H Creatinine 4.5 H Glucose 112 H POC Glucose Lactic Acid Calcium Magnesium Iron TIBC Direct Bilirubin AST Alkaline Phosphatase Troponin T 0.181 H* C-Reactive Protein Total Protein Albumin LDL Cholesterol Direct 34 L HDL Cholesterol 20 L Vitamin B12 Folate TSH Urine WBC (Auto) Urine Creatinine Urine Total Protein CHESTER Screen CHESTER Titer Complement C3 Complement C4 02/01/19 02/01/19 02/01/19 07:29 07:29 07:43 WBC RBC Hgb Hct RDW Plt Count Seg Neuts % (Manual) Lymphocytes % (Manual) Seg Neutrophils # Man Lymphocytes # (Manual) PT INR APTT Thrombin Time POC ABG pH ABG pH POC ABG pCO2 POC ABG pO2 ABG pO2 ABG HCO3 ABG O2 Saturation ABG Base Excess ABG Hemoglobin Oxyhemoglobin Sodium Potassium Chloride Carbon Dioxide BUN Creatinine Glucose POC Glucose Lactic Acid 4.80 H* Calcium Magnesium Iron TIBC Direct Bilirubin 0.7 H AST 42 H Alkaline Phosphatase Troponin T C-Reactive Protein Total Protein 8.9 H Albumin 2.3 L LDL Cholesterol Direct HDL Cholesterol Vitamin B12 Folate TSH 8.470 H Urine WBC (Auto) Urine Creatinine Urine Total Protein CHE[place] Screen CHESTER Titer Complement C3 Complement C4 02/01/19 02/01/19 02/01/19 09:45 11:32 13:50 WBC RBC Hgb Hct RDW Plt Count Seg Neuts % (Manual) Lymphocytes % (Manual) Seg Neutrophils # Man Lymphocytes # (Manual) PT INR APTT Thrombin Time POC ABG pH 7.289 L ABG pH POC ABG pCO2 POC ABG pO2 355 H ABG pO2 ABG HCO3 ABG O2 Saturation ABG Base Excess ABG Hemoglobin Oxyhemoglobin Sodium Potassium Chloride Carbon Dioxide BUN Creatinine Glucose POC Glucose Lactic Acid 4.10 H* Calcium Magnesium Iron TIBC Direct Bilirubin AST Alkaline Phosphatase Troponin T C-Reactive Protein Total Protein Albumin LDL Cholesterol Direct HDL Cholesterol Vitamin B12 Folate TSH Urine WBC (Auto) 16.0 H Urine Creatinine Urine Total Protein [place] Screen CHE[place] Titer Complement C3 Complement C4 02/01/19 02/01/19 02/01/19 15:15 16:20 16:51 WBC RBC Hgb Hct RDW Plt Count Seg Neuts % (Manual) Lymphocytes % (Manual) Seg Neutrophils # Man Lymphocytes # (Manual) PT INR APTT Thrombin Time POC ABG pH ABG pH POC ABG pCO2 POC ABG pO2 ABG pO2 ABG HCO3 ABG O2 Saturation ABG Base Excess ABG Hemoglobin Oxyhemoglobin Sodium Potassium Chloride Carbon Dioxide BUN Creatinine Glucose POC Glucose 115 H Lactic Acid 4.50 H* Calcium Magnesium Iron TIBC Direct Bilirubin AST Alkaline Phosphatase Troponin T C-Reactive Protein Total Protein Albumin LDL Cholesterol Direct HDL Cholesterol Vitamin B12 Folate TSH Urine WBC (Auto) Urine Creatinine Urine Total Protein CHE[place] Screen CHE[place] Titer Complement C3 36 L Complement C4 02/01/19 02/01/19 02/01/19 16:51 17:03 17:04 WBC RBC Hgb Hct RDW Plt Count Seg Neuts % (Manual) Lymphocytes % (Manual) Seg Neutrophils # Man Lymphocytes # (Manual) PT INR APTT Thrombin Time POC ABG pH ABG pH POC ABG pCO2 POC ABG pO2 ABG pO2 ABG HCO3 ABG O2 Saturation ABG Base Excess ABG Hemoglobin Oxyhemoglobin Sodium Potassium Chloride Carbon Dioxide BUN Creatinine Glucose POC Glucose Lactic Acid 2.80 H* Calcium Magnesium Iron TIBC Direct Bilirubin AST Alkaline Phosphatase Troponin T C-Reactive Protein 32.30 H Total Protein Albumin LDL Cholesterol Direct HDL Cholesterol Vitamin B12 Folate TSH Urine WBC (Auto) Urine Creatinine Urine Total Protein [place] Screen [place] Titer Complement C3 Complement C4 12 L 02/01/19 02/01/19 02/02/19 17:04 19:28 05:16 WBC RBC Hgb Hct RDW Plt Count Seg Neuts % (Manual) Lymphocytes % (Manual) Seg Neutrophils # Man Lymphocytes # (Manual) PT INR APTT Thrombin Time POC ABG pH ABG pH POC ABG pCO2 POC ABG pO2 148 H ABG pO2 ABG HCO3 ABG O2 Saturation ABG Base Excess ABG Hemoglobin Oxyhemoglobin Sodium Potassium Chloride 107.1 H Carbon Dioxide 18 L BUN 52 H Creatinine 3.1 H Glucose 120 H POC Glucose Lactic Acid Calcium 7.4 L Magnesium Iron TIBC Direct Bilirubin AST Alkaline Phosphatase Troponin T C-Reactive Protein Total Protein Albumin LDL Cholesterol Direct HDL Cholesterol Vitamin B12 Folate TSH Urine WBC (Auto) Urine Creatinine Urine Total Protein CHE[place] Screen Positive H CHESTER Titer 1:320 H Complement C3 Complement C4 02/02/19 02/02/19 02/03/19 05:53 05:53 03:30 WBC 14.3 H RBC 5.16 H Hgb 14.9 H Hct 46.2 H D RDW 16.9 H 17.0 H Plt Count 43 L 18 L* Seg Neuts % (Manual) 93.0 H Lymphocytes % (Manual) 2.0 L Seg Neutrophils # Man 13.3 H Lymphocytes # (Manual) 0.3 L PT INR APTT Thrombin Time POC ABG pH ABG pH POC ABG pCO2 POC ABG pO2 ABG pO2 ABG HCO3 ABG O2 Saturation ABG Base Excess ABG Hemoglobin Oxyhemoglobin Sodium Potassium 5.1 H Chloride Carbon Dioxide 21 L BUN 57 H Creatinine 3.3 H Glucose 147 H POC Glucose Lactic Acid Calcium 7.5 L Magnesium Iron TIBC Direct Bilirubin AST 51 H Alkaline Phosphatase Troponin T C-Reactive Protein Total Protein Albumin 1.6 L LDL Cholesterol Direct HDL Cholesterol Vitamin B12 Folate TSH Urine WBC (Auto) Urine Creatinine Urine Total Protein [place] Screen [place] Titer Complement C3 Complement C4 02/03/19 02/03/19 02/03/19 03:30 05:55 14:42 WBC RBC Hgb Hct RDW Plt Count Seg Neuts % (Manual) Lymphocytes % (Manual) Seg Neutrophils # Man Lymphocytes # (Manual) PT INR APTT Thrombin Time POC ABG pH ABG pH POC ABG pCO2 POC ABG pO2 117 H ABG pO2 ABG HCO3 ABG O2 Saturation ABG Base Excess ABG Hemoglobin Oxyhemoglobin Sodium Potassium Chloride Carbon Dioxide BUN 65 H Creatinine 2.7 H Glucose 117 H POC Glucose Lactic Acid Calcium 7.2 L Magnesium Iron TIBC Direct Bilirubin AST Alkaline Phosphatase Troponin T C-Reactive Protein Total Protein Albumin LDL Cholesterol Direct HDL Cholesterol Vitamin B12 1468 H Folate TSH Urine WBC (Auto) Urine Creatinine Urine Total Protein [place] Screen [place] Titer Complement C3 Complement C4 02/03/19 02/03/19 02/03/19 14:42 14:42 14:42 WBC RBC 3.17 L Hgb 9.4 L D Hct 28.3 L D RDW 16.9 H Plt Count 18 L* Seg Neuts % (Manual) Lymphocytes % (Manual) Seg Neutrophils # Man Lymphocytes # (Manual) PT INR APTT Thrombin Time POC ABG pH ABG pH POC ABG pCO2 POC ABG pO2 ABG pO2 ABG HCO3 ABG O2 Saturation ABG Base Excess ABG Hemoglobin Oxyhemoglobin Sodium Potassium Chloride Carbon Dioxide BUN Creatinine Glucose POC Glucose Lactic Acid Calcium Magnesium Iron 11 L TIBC 88 L Direct Bilirubin AST Alkaline Phosphatase Troponin T C-Reactive Protein Total Protein Albumin LDL Cholesterol Direct HDL Cholesterol Vitamin B12 Folate 5.18 L TSH Urine WBC (Auto) Urine Creatinine Urine Total Protein [place] Screen [place] Titer Complement C3 Complement C4 02/03/19 02/03/19 02/04/19 14:42 14:42 03:35 WBC RBC 3.22 L Hgb 9.5 L Hct 28.5 L RDW 16.4 H Plt Count 18 L* Seg Neuts % (Manual) Lymphocytes % (Manual) Seg Neutrophils # Man Lymphocytes # (Manual) PT 15.8 H INR 1.29 H APTT 38.2 H Thrombin Time POC ABG pH ABG pH 7.470 H POC ABG pCO2 POC ABG pO2 ABG pO2 ABG HCO3 28.4 H ABG O2 Saturation ABG Base Excess 4.5 H ABG Hemoglobin 10.1 L Oxyhemoglobin 94.7 L Sodium Potassium Chloride Carbon Dioxide BUN Creatinine Glucose POC Glucose Lactic Acid Calcium Magnesium Iron TIBC Direct Bilirubin AST Alkaline Phosphatase Troponin T C-Reactive Protein Total Protein Albumin LDL Cholesterol Direct HDL Cholesterol Vitamin B12 Folate TSH Urine WBC (Auto) Urine Creatinine Urine Total Protein [place] Screen [place] Titer Complement C3 Complement C4 02/04/19 02/04/19 02/05/19 05:02 05:02 03:50 WBC RBC Hgb Hct RDW 16.5 H Plt Count 20 L Seg Neuts % (Manual) 94.0 H Lymphocytes % (Manual) 2.0 L Seg Neutrophils # Man 9.2 H Lymphocytes # (Manual) 0.2 L PT INR APTT Thrombin Time POC ABG pH ABG pH 7.485 H POC ABG pCO2 POC ABG pO2 ABG pO2 ABG HCO3 27.5 H ABG O2 Saturation ABG Base Excess 3.9 H ABG Hemoglobin 9.1 L Oxyhemoglobin 94.8 L Sodium Potassium Chloride Carbon Dioxide BUN 66 H Creatinine 1.7 H Glucose 127 H POC Glucose Lactic Acid Calcium 7.6 L Magnesium Iron TIBC Direct Bilirubin AST Alkaline Phosphatase Troponin T C-Reactive Protein Total Protein Albumin LDL Cholesterol Direct HDL Cholesterol Vitamin B12 Folate TSH Urine WBC (Auto) Urine Creatinine Urine Total Protein [place] Screen [place] Titer Complement C3 Complement C4 02/05/19 02/05/19 02/05/19 13:02 14:36 20:03 WBC 11.7 H RBC 3.48 L 3.24 L Hgb 10.0 L 9.4 L Hct 29.2 L RDW 16.3 H 16.3 H Plt Count 50 L D 71 L Seg Neuts % (Manual) 95.0 H 95.0 H Lymphocytes % (Manual) 0 L 2.0 L Seg Neutrophils # Man 11.1 H 10.2 H Lymphocytes # (Manual) 0.0 L 0.2 L PT INR APTT Thrombin Time POC ABG pH ABG pH POC ABG pCO2 POC ABG pO2 ABG pO2 ABG HCO3 ABG O2 Saturation ABG Base Excess ABG Hemoglobin Oxyhemoglobin Sodium Potassium Chloride Carbon Dioxide BUN 67 H Creatinine 1.5 H Glucose POC Glucose Lactic Acid Calcium 7.7 L Magnesium Iron TIBC Direct Bilirubin AST Alkaline Phosphatase Troponin T C-Reactive Protein Total Protein Albumin LDL Cholesterol Direct HDL Cholesterol Vitamin B12 Folate TSH Urine WBC (Auto) Urine Creatinine Urine Total Protein [place] Screen [place] Titer Complement C3 Complement C4 02/06/19 02/06/19 02/06/19 05:39 07:35 18:34 WBC RBC Hgb Hct RDW Plt Count Seg Neuts % (Manual) Lymphocytes % (Manual) Seg Neutrophils # Man Lymphocytes # (Manual) PT 16.3 H INR 1.35 H APTT Thrombin Time POC ABG pH ABG pH POC ABG pCO2 POC ABG pO2 ABG pO2 ABG HCO3 ABG O2 Saturation ABG Base Excess ABG Hemoglobin Oxyhemoglobin Sodium Potassium Chloride Carbon Dioxide BUN Creatinine Glucose POC Glucose 107 H 121 H Lactic Acid Calcium Magnesium Iron TIBC Direct Bilirubin AST Alkaline Phosphatase Troponin T C-Reactive Protein Total Protein Albumin LDL Cholesterol Direct HDL Cholesterol Vitamin B12 Folate TSH Urine WBC (Auto) Urine Creatinine Urine Total Protein [place] Screen [place] Titer Complement C3 Complement C4 02/06/19 02/07/19 02/07/19 Unknown 01:07 04:15 WBC RBC Hgb Hct RDW Plt Count Seg Neuts % (Manual) Lymphocytes % (Manual) Seg Neutrophils # Man Lymphocytes # (Manual) PT INR APTT Thrombin Time POC ABG pH ABG pH POC ABG pCO2 POC ABG pO2 ABG pO2 ABG HCO3 ABG O2 Saturation ABG Base Excess ABG Hemoglobin 5.0 L Oxyhemoglobin 94.9 L 94.8 L Sodium 146 H Potassium Chloride Carbon Dioxide BUN 85 H Creatinine 1.8 H Glucose 163 H POC Glucose Lactic Acid Calcium 8.3 L Magnesium Iron TIBC Direct Bilirubin AST Alkaline Phosphatase Troponin T C-Reactive Protein Total Protein Albumin LDL Cholesterol Direct HDL Cholesterol Vitamin B12 Folate TSH Urine WBC (Auto) Urine Creatinine Urine Total Protein [place] Screen [place] Titer Complement C3 Complement C4 02/07/19 02/07/19 02/08/19 08:22 10:58 04:40 WBC RBC Hgb Hct RDW 16.0 H Plt Count 84 L Seg Neuts % (Manual) 97.0 H Lymphocytes % (Manual) 0 L Seg Neutrophils # Man 9.5 H Lymphocytes # (Manual) 0.0 L PT INR APTT Thrombin Time POC ABG pH 7.477 H ABG pH 7.467 H POC ABG pCO2 34.8 L POC ABG pO2 118 H ABG pO2 ABG HCO3 ABG O2 Saturation ABG Base Excess ABG Hemoglobin 8.4 L Oxyhemoglobin Sodium Potassium Chloride Carbon Dioxide BUN Creatinine Glucose POC Glucose Lactic Acid Calcium Magnesium Iron TIBC Direct Bilirubin AST Alkaline Phosphatase Troponin T C-Reactive Protein Total Protein Albumin LDL Cholesterol Direct HDL Cholesterol Vitamin B12 Folate TSH Urine WBC (Auto) Urine Creatinine Urine Total Protein [place] Screen [place] Titer Complement C3 Complement C4 02/09/19 02/09/19 02/09/19 03:17 03:17 04:35 WBC 14.9 H RBC 3.32 L Hgb 9.6 L Hct RDW 15.9 H Plt Count 113 L Seg Neuts % (Manual) 96.0 H Lymphocytes % (Manual) 1.0 L Seg Neutrophils # Man 14.3 H Lymphocytes # (Manual) 0.1 L PT INR APTT Thrombin Time POC ABG pH ABG pH 7.478 H POC ABG pCO2 POC ABG pO2 ABG pO2 94.5 H ABG HCO3 ABG O2 Saturation ABG Base Excess ABG Hemoglobin 6.1 L Oxyhemoglobin Sodium 147 H Potassium Chloride 110.4 H Carbon Dioxide BUN 114 H Creatinine 2.2 H Glucose 270 H POC Glucose Lactic Acid Calcium 8.1 L Magnesium Iron TIBC Direct Bilirubin AST Alkaline Phosphatase Troponin T C-Reactive Protein Total Protein Albumin 1.6 L LDL Cholesterol Direct HDL Cholesterol Vitamin B12 Folate TSH Urine WBC (Auto) Urine Creatinine Urine Total Protein [place] Screen [place] Titer Complement C3 Complement C4 02/09/19 02/09/19 02/10/19 13:35 18:54 05:13 WBC RBC Hgb Hct RDW Plt Count Seg Neuts % (Manual) Lymphocytes % (Manual) Seg Neutrophils # Man Lymphocytes # (Manual) PT INR APTT Thrombin Time POC ABG pH ABG pH 7.478 H POC ABG pCO2 POC ABG pO2 ABG pO2 ABG HCO3 ABG O2 Saturation ABG Base Excess ABG Hemoglobin 8.1 L Oxyhemoglobin 94.9 L Sodium Potassium Chloride Carbon Dioxide BUN Creatinine Glucose POC Glucose Lactic Acid Calcium Magnesium Iron TIBC Direct Bilirubin AST Alkaline Phosphatase Troponin T C-Reactive Protein Total Protein Albumin LDL Cholesterol Direct HDL Cholesterol Vitamin B12 Folate TSH Urine WBC (Auto) 10.0 H Urine Creatinine 92.9 H Urine Total Protein 116 H [place] Screen [place] Titer Complement C3 Complement C4 02/10/19 02/10/19 02/11/19 18:14 23:24 04:10 WBC RBC Hgb Hct RDW Plt Count Seg Neuts % (Manual) Lymphocytes % (Manual) Seg Neutrophils # Man Lymphocytes # (Manual) PT INR APTT Thrombin Time POC ABG pH ABG pH POC ABG pCO2 POC ABG pO2 ABG pO2 69.4 L ABG HCO3 ABG O2 Saturation 94.2 L ABG Base Excess ABG Hemoglobin 11.0 L Oxyhemoglobin 92.1 L Sodium Potassium Chloride Carbon Dioxide BUN Creatinine Glucose POC Glucose 453 H 403 H Lactic Acid Calcium Magnesium Iron TIBC Direct Bilirubin AST Alkaline Phosphatase Troponin T C-Reactive Protein Total Protein Albumin LDL Cholesterol Direct HDL Cholesterol Vitamin B12 Folate TSH Urine WBC (Auto) Urine Creatinine Urine Total Protein [place] Screen [place] Titer Complement C3 Complement C4 02/11/19 02/11/19 02/11/19 04:54 04:54 05:40 WBC 12.5 H RBC 3.18 L Hgb 9.4 L Hct 29.4 L RDW 16.6 H Plt Count Seg Neuts % (Manual) 94.0 H Lymphocytes % (Manual) 4.0 L Seg Neutrophils # Man 11.8 H Lymphocytes # (Manual) 0.5 L PT INR APTT Thrombin Time POC ABG pH ABG pH POC ABG pCO2 POC ABG pO2 ABG pO2 ABG HCO3 ABG O2 Saturation ABG Base Excess ABG Hemoglobin Oxyhemoglobin Sodium 151 H Potassium Chloride 112.6 H Carbon Dioxide BUN 127 H Creatinine 1.8 H Glucose 396 H POC Glucose 410 H Lactic Acid Calcium 8.3 L Magnesium Iron TIBC Direct Bilirubin AST Alkaline Phosphatase 132 H Troponin T C-Reactive Protein Total Protein Albumin 2.1 L LDL Cholesterol Direct HDL Cholesterol Vitamin B12 Folate TSH Urine WBC (Auto) Urine Creatinine Urine Total Protein [place] Screen [place] Titer Complement C3 Complement C4 02/11/19 02/11/19 02/11/19 11:30 17:58 23:18 WBC RBC Hgb Hct RDW Plt Count Seg Neuts % (Manual) Lymphocytes % (Manual) Seg Neutrophils # Man Lymphocytes # (Manual) PT INR APTT Thrombin Time POC ABG pH ABG pH POC ABG pCO2 POC ABG pO2 ABG pO2 ABG HCO3 ABG O2 Saturation ABG Base Excess ABG Hemoglobin Oxyhemoglobin Sodium Potassium Chloride Carbon Dioxide BUN Creatinine Glucose POC Glucose 361 H 414 H 392 H Lactic Acid Calcium Magnesium Iron TIBC Direct Bilirubin AST Alkaline Phosphatase Troponin T C-Reactive Protein Total Protein Albumin LDL Cholesterol Direct HDL Cholesterol Vitamin B12 Folate TSH Urine WBC (Auto) Urine Creatinine Urine Total Protein [place] Screen [place] Titer Complement C3 Complement C4 02/12/19 02/12/19 02/12/19 05:32 05:36 05:36 WBC 11.9 H RBC 3.40 L Hgb 9.9 L Hct RDW 16.4 H Plt Count Seg Neuts % (Manual) 97.0 H Lymphocytes % (Manual) 2.0 L Seg Neutrophils # Man 11.5 H Lymphocytes # (Manual) 0.2 L PT INR APTT Thrombin Time POC ABG pH ABG pH POC ABG pCO2 POC ABG pO2 ABG pO2 ABG HCO3 ABG O2 Saturation ABG Base Excess ABG Hemoglobin Oxyhemoglobin Sodium 146 H Potassium 3.5 L Chloride 110.2 H Carbon Dioxide BUN 118 H Creatinine 1.4 H Glucose 382 H POC Glucose 361 H Lactic Acid Calcium 8.3 L Magnesium Iron TIBC Direct Bilirubin AST Alkaline Phosphatase 137 H Troponin T C-Reactive Protein Total Protein Albumin 2.0 L LDL Cholesterol Direct HDL Cholesterol Vitamin B12 Folate TSH Urine WBC (Auto) Urine Creatinine Urine Total Protein [place] Screen [place] Titer Complement C3 Complement C4 02/12/19 02/12/19 02/12/19 11:51 17:18 21:46 WBC RBC Hgb Hct RDW Plt Count Seg Neuts % (Manual) Lymphocytes % (Manual) Seg Neutrophils # Man Lymphocytes # (Manual) PT INR APTT Thrombin Time POC ABG pH ABG pH POC ABG pCO2 POC ABG pO2 ABG pO2 ABG HCO3 ABG O2 Saturation ABG Base Excess ABG Hemoglobin Oxyhemoglobin Sodium Potassium Chloride Carbon Dioxide BUN Creatinine Glucose POC Glucose 357 H 280 H 222 H Lactic Acid Calcium Magnesium Iron TIBC Direct Bilirubin AST Alkaline Phosphatase Troponin T C-Reactive Protein Total Protein Albumin LDL Cholesterol Direct HDL Cholesterol Vitamin B12 Folate TSH Urine WBC (Auto) Urine Creatinine Urine Total Protein [place] Screen CHE[place] Titer Complement C3 Complement C4 02/12/19 02/13/19 02/13/19 23:58 03:41 03:41 WBC 11.6 H RBC 3.53 L Hgb Hct RDW 15.8 H Plt Count 98 L Seg Neuts % (Manual) 97.0 H Lymphocytes % (Manual) 2.0 L Seg Neutrophils # Man 11.3 H Lymphocytes # (Manual) 0.2 L PT INR APTT Thrombin Time POC ABG pH ABG pH POC ABG pCO2 POC ABG pO2 ABG pO2 ABG HCO3 ABG O2 Saturation ABG Base Excess ABG Hemoglobin Oxyhemoglobin Sodium Potassium 3.4 L Chloride 109.7 H Carbon Dioxide BUN 108 H Creatinine Glucose 182 H POC Glucose 208 H Lactic Acid Calcium Magnesium Iron TIBC Direct Bilirubin AST 45 H Alkaline Phosphatase 150 H Troponin T C-Reactive Protein Total Protein Albumin 1.8 L LDL Cholesterol Direct HDL Cholesterol Vitamin B12 Folate TSH Urine WBC (Auto) Urine Creatinine Urine Total Protein CHESTER Screen CHESTER Titer Complement C3 Complement C4 02/13/19 02/13/19 02/13/19 05:40 11:31 18:01 WBC RBC Hgb Hct RDW Plt Count Seg Neuts % (Manual) Lymphocytes % (Manual) Seg Neutrophils # Man Lymphocytes # (Manual) PT INR APTT Thrombin Time POC ABG pH ABG pH POC ABG pCO2 POC ABG pO2 ABG pO2 ABG HCO3 ABG O2 Saturation ABG Base Excess ABG Hemoglobin Oxyhemoglobin Sodium Potassium Chloride Carbon Dioxide BUN Creatinine Glucose POC Glucose 179 H 193 H 151 H Lactic Acid Calcium Magnesium Iron TIBC Direct Bilirubin AST Alkaline Phosphatase Troponin T C-Reactive Protein Total Protein Albumin LDL Cholesterol Direct HDL Cholesterol Vitamin B12 Folate TSH Urine WBC (Auto) Urine Creatinine Urine Total Protein CHESTER Screen CHESTER Titer Complement C3 Complement C4 02/13/19 02/14/19 02/14/19 23:47 04:03 04:03 WBC RBC Hgb Hct RDW 16.0 H Plt Count Seg Neuts % (Manual) 94.0 H Lymphocytes % (Manual) 2.0 L Seg Neutrophils # Man 8.9 H Lymphocytes # (Manual) 0.2 L PT INR APTT Thrombin Time POC ABG pH ABG pH POC ABG pCO2 POC ABG pO2 ABG pO2 ABG HCO3 ABG O2 Saturation ABG Base Excess ABG Hemoglobin Oxyhemoglobin Sodium Potassium 3.4 L Chloride 108.7 H Carbon Dioxide 21 L BUN 96 H Creatinine Glucose 129 H POC Glucose 144 H Lactic Acid Calcium 8.2 L Magnesium Iron TIBC Direct Bilirubin AST 65 H Alkaline Phosphatase 164 H Troponin T C-Reactive Protein Total Protein Albumin 1.7 L LDL Cholesterol Direct HDL Cholesterol Vitamin B12 Folate TSH Urine WBC (Auto) Urine Creatinine Urine Total Protein CHESTER Screen CHESTER Titer Complement C3 Complement C4 02/14/19 02/14/19 04:03 05:10 WBC RBC Hgb Hct RDW Plt Count Seg Neuts % (Manual) Lymphocytes % (Manual) Seg Neutrophils # Man Lymphocytes # (Manual) PT INR APTT Thrombin Time POC ABG pH ABG pH POC ABG pCO2 POC ABG pO2 ABG pO2 ABG HCO3 ABG O2 Saturation ABG Base Excess ABG Hemoglobin Oxyhemoglobin Sodium Potassium Chloride Carbon Dioxide BUN Creatinine Glucose POC Glucose 145 H Lactic Acid Calcium Magnesium 1.60 L Iron TIBC Direct Bilirubin AST Alkaline Phosphatase Troponin T C-Reactive Protein Total Protein Albumin LDL Cholesterol Direct HDL Cholesterol Vitamin B12 Folate TSH Urine WBC (Auto) Urine Creatinine Urine Total Protein CHESTER Screen CHESTER Titer Complement C3 Complement C4
--- NOTE | 2019-02-14 14:04 | Progress Note ---
Assessment and Plan Cultures: 02/01/2019 blood culture: Strep pneumoniae in 4/4 bottles 02/01/2019 urine culture: no growth 02/01/2019 tracheal aspirate: Strep species 02/02/2019 blood culture: no growth 02/05/2019 CSF culture: no growth 02/10/2019 sputum Cx: Stenotrophomonas 02/01/2019 C3: 36 (low) 02/01/2019 C4: 12 (low) CHESTER positive 1:320 HIV: non reactive RPR: non reactive Hepatitis panel: non reactive Bartonella serology: negative A/P: 53-year-old female with hypothyroidism, hypertension, ?autoimmune disease. Admitted with: 1) Severe sepsis with Strep pneumoniae bacteremia, pneumonia and meningitis: TTE showed some ?pulmonic valve vegetation. TERRENCE was negative for vegetations per cardiology. CSF shows WBC 1250, RBC 30, PMN 30%, Glucose 38, Protein 140. 2) Right neck severe lymphadenopathy: CT neck was without contrast, hence limited eval of vasculature. Neck US revealed extensive R neck lymphadenopathy, no abscess. HIV, RPR negative. Bartonella serologies negative. On 02/07/2019, patient's mother showed me paperwork from patient's PCP, patient was seen on 01/30/2019 at PCP office for R neck lump, was given medrol dose kevin and ultrasound was ordered. Once creatinine improves, may need CT chest, abdomen pelvis with IV contrast to evaluate for other lymphadenopathy, although the lymphadenopathy may be from lupus. 3) Bilateral pneumonia: sputum culture also growing Strep, likely Strep pneumoniae. Repeat cultures with Stenotrophomonas. Likely a colonizer as her infectious status continues to improve. Frequent colonizer of tubes. 4) Acute renal failure: Nephrology following. Creatinine worse today. 5) ?Autoimmune disease: likely lupus. C3, C4 came back low. CHESTER positive 1:320. ANCA negative. 6) Thrombocytopenia: improved. Hematology following. Sepsis v/s autoimmune in etiology. 7) Acute encephalopathy: secondary to meningitis. MRI brain showed acute ischemic changes in the posterior distribution of the R MCA, right frontal and parietal deep white matter and left frontal deep white matter, additional foci of ischemic change in b/l cerebellar hemispheres. 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 CHESTER positive 1:320 suggestive of lupus. ds-DNA pending She is out of the window for steroids as adjunctive therapy for Pneumococcal meningitis, however, mental status remains poor and with underlying autoimmune disease and ?renal dysfunction, OK from ID standpoint for steroids. Was started on Dexamethasone 02/09/2019 Overall guarded prognosis Will follow. Edith Mi MD [facility] ([facility]) M: [phone] O: [phone] F: [phone] Subjective Date of service: 02/14/19 Principal diagnosis: low plt Interval history: Remains non-responsive. Objective - Exam Narrative Exam: Physical Exam: Constitutional: opens eyes, tracking, not following commands, intubated Head, Ears, Nose: Normocephalic, atraumatic. External ears, nose normal Eyes: Conjunctivae/corneas clear. No icterus. No ptosis. Neck: R cervical lymphadenopathy, moderately improved Oral: intubated Cardiovascular: S1, S2 normal, irregular Respiratory: AE clear bilaterally, no wheeze GI: Soft, non-tender; bowel sounds normal. No peritoneal signs Musculoskeletal: No pedal edema, no cyanosis. Skin: No rash or abscess Hem/Lymphatic: No palpable cervical or supraclavicular nodes. No lymphangitis Psych: no agitation Neurological: opens eyes, tracking, not following commands, on the vent - Constitutional Vitals: Vital Signs Temp Pulse Resp BP Pulse Ox 98.2 F 74 22 153/83 97 02/14/19 12:00 02/14/19 13:10 02/14/19 13:10 02/14/19 11:51 02/14/19 11:31 Temperature -Last 24 Hours Temperature 98.2 F Temperature 98.0 F Temperature 97.8 F Temperature 97.4 F Temperature 97.7 F Temperature 98.1 F - Labs CBC & Chem 7: 02/14/19 04:03 02/14/19 04:03 Labs: Abnormal lab results 02/13/19 02/13/19 02/14/19 Range/Units 18:01 23:47 04:03 RDW 16.0 H (13.2-15.2) % Seg Neuts % (Manual) 94.0 H (40.0-70.0) % Lymphocytes % (Manual) 2.0 L (13.4-35.0) % Seg Neutrophils # Man 8.9 H (1.8-7.7) K/mm3 Lymphocytes # (Manual) 0.2 L (1.2-5.4) K/mm3 Potassium (3.6-5.0) mmol/L Chloride (98-107) mmol/L Carbon Dioxide (22-30) mmol/L BUN (7-17) mg/dL Glucose (65-100) mg/dL POC Glucose 151 H 144 H (70-105) Calcium (8.4-10.2) mg/dL Magnesium (1.7-2.3) mg/dL AST (5-40) units/L Alkaline Phosphatase (35-129) units/L Albumin (3.9-5) g/dL 02/14/19 02/14/19 02/14/19 Range/Units 04:03 04:03 05:10 RDW (13.2-15.2) % Seg Neuts % (Manual) (40.0-70.0) % Lymphocytes % (Manual) (13.4-35.0) % Seg Neutrophils # Man (1.8-7.7) K/mm3 Lymphocytes # (Manual) (1.2-5.4) K/mm3 Potassium 3.4 L (3.6-5.0) mmol/L Chloride 108.7 H (98-107) mmol/L Carbon Dioxide 21 L (22-30) mmol/L BUN 96 H (7-17) mg/dL Glucose 129 H (65-100) mg/dL POC Glucose 145 H (70-105) Calcium 8.2 L (8.4-10.2) mg/dL Magnesium 1.60 L (1.7-2.3) mg/dL AST 65 H (5-40) units/L Alkaline Phosphatase 164 H (35-129) units/L Albumin 1.7 L (3.9-5) g/dL
--- NOTE | 2019-02-14 14:32 | Progress Note ---
Assessment and Plan 53 year old woman who was brought in by her family for unsteady gait, fatigue, and withdrawn behavior. I finally noticed difficult to it fine motor skills throughout that night she was having difficulty expressing herself. she was at a restaurant family I will continue to point to the menu. She became more disoriented and less responsive prompting family to bring her to the emergency room - Severe sepsis with Strep pneumoniae bacteremia, pneumonia and meningitis: TERRENCE was negative for vegetations per cardiology. ID following continue with Ceftriozone - Acute respiratory failure on MV > 96 hours cont vent mx. per pulmonology Bronhcodilators Wean as tolerated - Hyperglycemia cont ssi, amd lantus - Thrombocytopenia likely due to sepsis or autoimmune phenomenon, hematology input appreciated, hiv-negative, fibrinogen level is not low, PT PTT is normal. 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 families is unclear on this medical history, but know that she has some form of autoimmune disease Compliments are reduced, CHESTER is positive, anti ds dna pending, highly suspect lupus cont steroids - Acute metabolic encephalopathy Likely due to sepsis, EEG neg for seizure, neuro input appreciated - Type 2 VT SSI Glucerna - Hypothyroidism TSH elevated, synthroid dose increased -repeat TFTs in 4-6 wks - Hypokalemia Still supplement - Acute encephalopathy: secondary to meningitis. MRI brain showed acute ischemic changes in the posterior distribution of the R MCA, right frontal and parietal deep white matter and left frontal deep white matter, additional foci of ischemic change in b/l cerebellar hemispheres. - DVT PPx SCD only. No anticoagulation b/c Thrombocytopenia and GI with pepcid - Code status: Full code Subjective Date of service: 02/14/19 Principal diagnosis: Sepsis, Pneumonia, meningitis acute kidney injury Interval history: Patient seen and examined. Remains intubated ) 96 hrs. Discussed with nursing staff. No overnight events reported to me. Objective - Exam Narrative Exam: Constitutional: Intubated on connected to mechanical ventilation for over 96 hours Head: Normocephalic atraumatic Eyes: Pupils are equal round and reactive to light Nose: No enlarged turbinates, no septal deviation. Mouth: ET tube in place Moist mucous membranes. Neck: Supple no thyromegaly. No bruit. No JVD Heart: Regular rate and rhythm, S1-S2 normal. No rubs murmurs or gallop Lungs: Decreased breath sounds bilaterally. no rales or rhonchi Abdomen: Soft, nontender. Bowel sound are present. Extremities: No edema, no cyanosis, no clubbing. Neuro: unresponsive. Skin: No rashes or hyperpigmented spots Musculoskeletal system: No joint pain or swelling Hematological: No petechia or subcutanous hemorrhages. Immunological: No multiple septic spots on the skin Lymphatic: No generalized lymphadenopathy Psychiatry: Euthymic. Calm. - Constitutional Vitals: Vital Signs - 12hr 02/14/19 02/14/19 02/14/19 02:30 03:00 03:30 Temperature Pulse Rate 83 85 82 Pulse Rate [ Anterior Bilateral Throughout] Pulse Rate [ From Monitor] Pulse Rate [ Posterior Throughout] Pulse Rate [ Right Radial] Respiratory 20 24 24 Rate Respiratory Rate [Anterior Bilateral Throughout] Respiratory Rate [Posterior Throughout] Blood Pressure 125/84 140/85 147/85 O2 Sat by Pulse 99 98 98 Oximetry 02/14/19 02/14/19 02/14/19 03:35 04:00 04:01 Temperature 97.8 F Pulse Rate 85 85 Pulse Rate [ 88 Anterior Bilateral Throughout] Pulse Rate [ 86 From Monitor] Pulse Rate [ Posterior Throughout] Pulse Rate [ 86 Right Radial] Respiratory 24 23 Rate Respiratory 25 H Rate [Anterior Bilateral Throughout] Respiratory Rate [Posterior Throughout] Blood Pressure 147/85 147/85 O2 Sat by Pulse 98 100 100 Oximetry 02/14/19 02/14/19 02/14/19 04:30 05:00 05:30 Temperature Pulse Rate 82 88 85 Pulse Rate [ Anterior Bilateral Throughout] Pulse Rate [ From Monitor] Pulse Rate [ Posterior Throughout] Pulse Rate [ Right Radial] Respiratory 24 26 H 24 Rate Respiratory Rate [Anterior Bilateral Throughout] Respiratory Rate [Posterior Throughout] Blood Pressure 144/74 146/77 154/77 O2 Sat by Pulse 98 97 98 Oximetry 02/14/19 02/14/19 02/14/19 06:00 06:17 06:30 Temperature Pulse Rate 93 H 89 88 Pulse Rate [ Anterior Bilateral Throughout] Pulse Rate [ 86 From Monitor] Pulse Rate [ Posterior Throughout] Pulse Rate [ 86 Right Radial] Respiratory 27 H 24 Rate Respiratory Rate [Anterior Bilateral Throughout] Respiratory Rate [Posterior Throughout] Blood Pressure 149/83 149/83 146/78 O2 Sat by Pulse 98 98 Oximetry 02/14/19 02/14/19 02/14/19 07:00 07:30 07:48 Temperature Pulse Rate 87 85 89 Pulse Rate [ Anterior Bilateral Throughout] Pulse Rate [ From Monitor] Pulse Rate [ Posterior Throughout] Pulse Rate [ Right Radial] Respiratory 27 H 25 H Rate Respiratory Rate [Anterior Bilateral Throughout] Respiratory Rate [Posterior Throughout] Blood Pressure 143/70 135/67 135/67 O2 Sat by Pulse 98 98 96 Oximetry 02/14/19 02/14/19 02/14/19 07:53 07:55 08:00 Temperature 98.0 F Pulse Rate 81 83 Pulse Rate [ Anterior Bilateral Throughout] Pulse Rate [ 91 H From Monitor] Pulse Rate [ 78 Posterior Throughout] Pulse Rate [ 91 H Right Radial] Respiratory 24 24 Rate Respiratory Rate [Anterior Bilateral Throughout] Respiratory 22 Rate [Posterior Throughout] Blood Pressure 135/67 147/73 O2 Sat by Pulse 96 100 Oximetry 02/14/19 02/14/19 02/14/19 08:30 09:00 09:30 Temperature Pulse Rate 80 72 84 Pulse Rate [ Anterior Bilateral Throughout] Pulse Rate [ From Monitor] Pulse Rate [ Posterior Throughout] Pulse Rate [ Right Radial] Respiratory 22 21 30 H Rate Respiratory Rate [Anterior Bilateral Throughout] Respiratory Rate [Posterior Throughout] Blood Pressure 136/67 129/60 139/58 O2 Sat by Pulse 97 98 94 Oximetry 02/14/19 02/14/19 02/14/19 10:00 10:30 11:00 Temperature Pulse Rate 88 86 84 Pulse Rate [ Anterior Bilateral Throughout] Pulse Rate [ From Monitor] Pulse Rate [ Posterior Throughout] Pulse Rate [ Right Radial] Respiratory 26 H 24 26 H Rate Respiratory Rate [Anterior Bilateral Throughout] Respiratory Rate [Posterior Throughout] Blood Pressure 140/57 137/60 129/58 O2 Sat by Pulse 97 98 97 Oximetry 02/14/19 02/14/19 02/14/19 11:30 11:31 11:51 Temperature Pulse Rate 105 H 107 H 90 Pulse Rate [ Anterior Bilateral Throughout] Pulse Rate [ From Monitor] Pulse Rate [ Posterior Throughout] Pulse Rate [ Right Radial] Respiratory 31 H 33 H Rate Respiratory Rate [Anterior Bilateral Throughout] Respiratory Rate [Posterior Throughout] Blood Pressure 153/85 153/85 153/83 O2 Sat by Pulse 97 97 Oximetry 02/14/19 02/14/19 12:00 13:10 Temperature 98.2 F Pulse Rate Pulse Rate [ Anterior Bilateral Throughout] Pulse Rate [ From Monitor] Pulse Rate [ 74 Posterior Throughout] Pulse Rate [ Right Radial] Respiratory Rate Respiratory Rate [Anterior Bilateral Throughout] Respiratory 22 Rate [Posterior Throughout] Blood Pressure O2 Sat by Pulse Oximetry - Labs CBC & Chem 7: 02/14/19 04:03 02/14/19 04:03 Labs: Abnormal lab results 02/13/19 02/13/19 02/14/19 Range/Units 18:01 23:47 04:03 RDW 16.0 H (13.2-15.2) % Seg Neuts % (Manual) 94.0 H (40.0-70.0) % Lymphocytes % (Manual) 2.0 L (13.4-35.0) % Seg Neutrophils # Man 8.9 H (1.8-7.7) K/mm3 Lymphocytes # (Manual) 0.2 L (1.2-5.4) K/mm3 Potassium (3.6-5.0) mmol/L Chloride (98-107) mmol/L Carbon Dioxide (22-30) mmol/L BUN (7-17) mg/dL Glucose (65-100) mg/dL POC Glucose 151 H 144 H (70-105) Calcium (8.4-10.2) mg/dL Magnesium (1.7-2.3) mg/dL AST (5-40) units/L Alkaline Phosphatase (35-129) units/L Albumin (3.9-5) g/dL 02/14/19 02/14/19 02/14/19 Range/Units 04:03 04:03 05:10 RDW (13.2-15.2) % Seg Neuts % (Manual) (40.0-70.0) % Lymphocytes % (Manual) (13.4-35.0) % Seg Neutrophils # Man (1.8-7.7) K/mm3 Lymphocytes # (Manual) (1.2-5.4) K/mm3 Potassium 3.4 L (3.6-5.0) mmol/L Chloride 108.7 H (98-107) mmol/L Carbon Dioxide 21 L (22-30) mmol/L BUN 96 H (7-17) mg/dL Glucose 129 H (65-100) mg/dL POC Glucose 145 H (70-105) Calcium 8.2 L (8.4-10.2) mg/dL Magnesium 1.60 L (1.7-2.3) mg/dL AST 65 H (5-40) units/L Alkaline Phosphatase 164 H (35-129) units/L Albumin 1.7 L (3.9-5) g/dL
--- NOTE | 2019-02-14 15:17 | Progress Note ---
Assessment and Plan - Patient Problems (1) Hypernatremia Current Visit: Yes Status: Acute Plan to address problem: Hypernatremia :resolved - Will discontinue half-normal saline given significant hyperglycemia and acute kidney injury, and change to D5W - Free water pushes as well (2) DIANA (acute kidney injury) Current Visit: Yes Status: Acute Plan to address problem: Acute kidney injury markedly improved. Change to half-normal saline significant azotemia did receive steroids Continue fluid hydration Recheck labs Avoid nephrotoxic medications (3) Bacteremia Current Visit: Yes Status: Acute Plan to address problem: Bacteremia History of streptococcal bacteremia and cellulitis complete antibiotics (4) Hypokalemia Current Visit: Yes Status: Acute Plan to address problem: Hypokalemia received 40meq Kcl check mag : 1. 6 received 4grams of Magnesium by primary team (5) Altered mental status Current Visit: Yes Status: Acute Plan to address problem: Encephalopathy appears to be improving Continue hydration We will sign off Thank you for allowing us to participate in her care . Subjective Principal diagnosis: Sepsis, Pneumonia, meningitis acute kidney injury Interval history: 53-year-old lady streptococcal bacteremia, cellulitis, encephalopathy admitted with oliguric acute kidney injury in the setting of sepsis and ATN Patient seen today mental status is improving obeying some commands renal function is markedly improved IVF is ongoing Sodium level has improved Objective - Vital Signs Vital signs: Vital Signs - 12hr 02/14/19 02/14/19 02/14/19 03:30 03:35 04:00 Temperature 97.8 F Pulse Rate 82 85 Pulse Rate [ 88 Anterior Bilateral Throughout] Pulse Rate [ 86 From Monitor] Pulse Rate [ Posterior Throughout] Pulse Rate [ 86 Right Radial] Respiratory 24 24 Rate Respiratory 25 H Rate [Anterior Bilateral Throughout] Respiratory Rate [Posterior Throughout] Blood Pressure 147/85 147/85 O2 Sat by Pulse 98 98 100 Oximetry 02/14/19 02/14/19 02/14/19 04:01 04:30 05:00 Temperature Pulse Rate 85 82 88 Pulse Rate [ Anterior Bilateral Throughout] Pulse Rate [ From Monitor] Pulse Rate [ Posterior Throughout] Pulse Rate [ Right Radial] Respiratory 23 24 26 H Rate Respiratory Rate [Anterior Bilateral Throughout] Respiratory Rate [Posterior Throughout] Blood Pressure 147/85 144/74 146/77 O2 Sat by Pulse 100 98 97 Oximetry 02/14/19 02/14/19 02/14/19 05:30 06:00 06:17 Temperature Pulse Rate 85 93 H 89 Pulse Rate [ Anterior Bilateral Throughout] Pulse Rate [ 86 From Monitor] Pulse Rate [ Posterior Throughout] Pulse Rate [ 86 Right Radial] Respiratory 24 27 H Rate Respiratory Rate [Anterior Bilateral Throughout] Respiratory Rate [Posterior Throughout] Blood Pressure 154/77 149/83 149/83 O2 Sat by Pulse 98 98 Oximetry 02/14/19 02/14/19 02/14/19 06:30 07:00 07:30 Temperature Pulse Rate 88 87 85 Pulse Rate [ Anterior Bilateral Throughout] Pulse Rate [ From Monitor] Pulse Rate [ Posterior Throughout] Pulse Rate [ Right Radial] Respiratory 24 27 H 25 H Rate Respiratory Rate [Anterior Bilateral Throughout] Respiratory Rate [Posterior Throughout] Blood Pressure 146/78 143/70 135/67 O2 Sat by Pulse 98 98 98 Oximetry 02/14/19 02/14/19 02/14/19 07:48 07:53 07:55 Temperature Pulse Rate 89 81 Pulse Rate [ Anterior Bilateral Throughout] Pulse Rate [ From Monitor] Pulse Rate [ 78 Posterior Throughout] Pulse Rate [ Right Radial] Respiratory 24 Rate Respiratory Rate [Anterior Bilateral Throughout] Respiratory 22 Rate [Posterior Throughout] Blood Pressure 135/67 135/67 O2 Sat by Pulse 96 96 Oximetry 02/14/19 02/14/19 02/14/19 08:00 08:30 09:00 Temperature 98.0 F Pulse Rate 83 80 72 Pulse Rate [ Anterior Bilateral Throughout] Pulse Rate [ 91 H From Monitor] Pulse Rate [ Posterior Throughout] Pulse Rate [ 91 H Right Radial] Respiratory 24 22 21 Rate Respiratory Rate [Anterior Bilateral Throughout] Respiratory Rate [Posterior Throughout] Blood Pressure 147/73 136/67 129/60 O2 Sat by Pulse 100 97 98 Oximetry 02/14/19 02/14/19 02/14/19 09:30 10:00 10:30 Temperature Pulse Rate 84 88 86 Pulse Rate [ Anterior Bilateral Throughout] Pulse Rate [ From Monitor] Pulse Rate [ Posterior Throughout] Pulse Rate [ Right Radial] Respiratory 30 H 26 H 24 Rate Respiratory Rate [Anterior Bilateral Throughout] Respiratory Rate [Posterior Throughout] Blood Pressure 139/58 140/57 137/60 O2 Sat by Pulse 94 97 98 Oximetry 02/14/19 02/14/19 02/14/19 11:00 11:30 11:31 Temperature Pulse Rate 84 105 H 107 H Pulse Rate [ Anterior Bilateral Throughout] Pulse Rate [ From Monitor] Pulse Rate [ Posterior Throughout] Pulse Rate [ Right Radial] Respiratory 26 H 31 H 33 H Rate Respiratory Rate [Anterior Bilateral Throughout] Respiratory Rate [Posterior Throughout] Blood Pressure 129/58 153/85 153/85 O2 Sat by Pulse 97 97 97 Oximetry 02/14/19 02/14/19 02/14/19 11:51 12:00 13:10 Temperature 98.2 F Pulse Rate 90 Pulse Rate [ Anterior Bilateral Throughout] Pulse Rate [ From Monitor] Pulse Rate [ 74 Posterior Throughout] Pulse Rate [ Right Radial] Respiratory Rate Respiratory Rate [Anterior Bilateral Throughout] Respiratory 22 Rate [Posterior Throughout] Blood Pressure 153/83 O2 Sat by Pulse Oximetry - General Appearance General appearance: well-developed, well-nourished EENT: ATNC, PERRL, mucous membranes moist Neck: no JVD Respiratory: Present: Clear to Ascultation Cardiology: regular, S1S2 Gastrointestinal: normal, normoactive bowel sounds Integumentary: no rash Neurologic: alert and oriented x3, disoriented Psychiatric: depressed - Lab 02/14/19 04:03 02/14/19 04:03 Most recent lab results ABG pH 7.440 pH Units (7.350-7.450) 02/11/19 04:10 ABG pCO2 37.4 mm Hg 02/11/19 04:10 ABG pO2 69.4 mm Hg (80.0-90.0) L 02/11/19 04:10 ABG HCO3 24.8 mmol/L (20.0-26.0) 02/11/19 04:10 ABG O2 Saturation 94.2 % (95.0-99.0) L 02/11/19 04:10 Calcium 8.2 mg/dL (8.4-10.2) L 02/14/19 04:03 Magnesium 1.60 mg/dL (1.7-2.3) L 02/14/19 04:03 92.9 mg/dL (0.1-20.0) H 02/09/19 18:54 116 mg/dL (5-11.8) H 02/09/19 18:54 - Imaging Chest x-ray: image reviewed (i reviewed CXR wtih cardiomegaly , Right perihilar opacity. ) Medications & Allergies - Medications Allergies/Adverse Reactions: Allergies No Known Allergies Allergy (Verified 08/18/18 09:04) Home Medications: Home Medications Medication Instructions Recorded Confirmed Last Taken Type Levothyroxine [Synthroid] 112 mcg PO QAM 02/01/19 02/01/19 Unknown History Lisinopril [Zestril TAB] 40 mg PO QDAY 02/01/19 02/01/19 Unknown History amLODIPine [Norvasc] 10 mg PO DAILY 02/01/19 02/01/19 Unknown History cloNIDine [Catapres] 1 mg PO QDAY 02/01/19 02/01/19 Unknown History Active Medications: Generic Name Dose Route Start Last Admin Trade Name Freq PRN Reason Stop Dose Admin Acetaminophen 650 mg 02/01/19 10:47 02/13/19 12:35 Tylenol PO 650 mg Q4H PRN Administration Pain MILD(1-3)/Fever >100.5/VALENZUELA Albuterol 2.5 mg 02/01/19 10:47 Proventil IH Q4HRT PRN Shortness Of Breath Albuterol/Ipratropium 1 ampul 02/01/19 12:00 02/14/19 13:09 Duoneb *Not For Prn Use* IH 1 ampul Q6HRT AMOL Administration Lipase/Protease/Amylase 1 each 02/05/19 11:04 02/13/19 21:35 Pancreemeka Hammond 10,500 Unit FEEDTUBE 1 each PRN PRN Administration For Clogged Feeding Tube Dexamethasone 4 mg 02/11/19 22:00 02/14/19 09:32 Decadron IV 4 mg Q12HR AMOL Administration Diltiazem HCl 60 mg 02/13/19 12:00 02/14/19 11:51 Cardizem PO 60 mg Q6H AMOL Administration Famotidine 20 mg 02/12/19 10:00 02/14/19 09:32 Pepcid PO 20 mg BID AMOL Administration Folic Acid 1 mg 02/06/19 10:00 02/14/19 09:32 Folvite PO 1 mg QDAY AMOL Administration Hydralazine HCl 10 mg 02/13/19 22:15 Apresoline IV Q6H PRN Hypertension Hydrophilic Ointment 1 applic 02/01/19 11:09 02/02/19 16:50 Vaseline Lip Therapy TP 1 applic Q2HR PRN Administration Dry Lips Ceftriaxone Sodium 2 gm in 100 mls @ 200 mls/hr 02/05/19 13:00 02/14/19 10:31 Rocephin/Ns 2 Gm/100 Ml IV 02/15/19 23:59 Infused Q12HR AMOL Infusion Protocol Dextrose 1,000 mls @ 75 mls/hr 02/14/19 06:00 02/14/19 06:20 D5w IV 75 mls/hr DIRECT AMOL Administration Insulin Glargine 30 units 02/11/19 16:36 02/13/19 21:08 Lantus SUB-Q 30 units QHS AMOL Administration Insulin Human Regular 0 units 02/10/19 19:00 02/14/19 11:52 Humulin R SUB-Q 3 units Q6HR AMOL Administration Protocol Levothyroxine Sodium 125 mcg 02/07/19 10:00 02/14/19 09:32 Synthroid PO 125 mcg QAM AMOL Administration Multi-Ingred Cream/Lotion/Oil/Oint 1 applic 02/01/19 11:09 02/08/19 21:18 Artificial Tears Ophth Oint OU 1 applic Q4HR PRN Administration Dry Eye(s) Multivitamins 5 ml 02/06/19 10:00 02/14/19 09:31 Centrum Liq PO 5 ml QDAY AMOL Administration Ondansetron HCl 4 mg 02/01/19 10:47 Zofran IV Q8H PRN Nausea And Vomiting Simple Syrup 15 ml 02/05/19 11:04 Simple Syrup FEEDTUBE PRN PRN Hypoglycemia Simple Syrup 30 ml 02/05/19 11:04 Simple Syrup FEEDTUBE PRN PRN Hypoglycemia Sodium Bicarbonate 325 mg 02/05/19 11:04 02/13/19 21:35 Sodium Bicarbonate FEEDTUBE 325 mg PRN PRN Administration For Clogged Feeding Tube Sodium Chloride 10 ml 02/01/19 22:00 02/14/19 09:32 Sodium Chloride Flush Syringe 10 Ml IV 10 ml BID AMOL Administration Sodium Chloride 10 ml 02/01/19 10:47 Sodium Chloride Flush Syringe 10 Ml IV PRN PRN LINE FLUSH
--- NOTE | 2019-02-14 16:06 | Consultation ---
History of Present Illness Consult date: 02/14/19 Chief complaint: VDRF - History of present illness History of present illness: 53 yo F with hx of HTN, hypothyroidism presented to the ER on 02/01/19 due to altered mental status. The patient is currently intubated and all of the history is obtained from the chart. Per notes the patient had confusion and difficulty speaking and the next day was found unresponsive by her son. She was ultimately intubated in the emergency room to protect her airway. Patient has been unable to be weaned from the vent. Patient with strep pneumonia and bacteremia. Past History Past Medical History: hypertension, hypothyroidism Past Surgical History: No surgical history Social history: full code. denies: smoking, alcohol abuse, prescription drug abuse Family history: stroke (father) Medications and Allergies Allergies Allergy/AdvReac Type Severity Reaction Status Date / Time No Known Allergies Allergy Verified 08/18/18 09:04 Home Medications Medication Instructions Recorded Confirmed Last Taken Type Levothyroxine [Synthroid] 112 mcg PO QAM 02/01/19 02/01/19 Unknown History Lisinopril [Zestril TAB] 40 mg PO QDAY 02/01/19 02/01/19 Unknown History amLODIPine [Norvasc] 10 mg PO DAILY 02/01/19 02/01/19 Unknown History cloNIDine [Catapres] 1 mg PO QDAY 02/01/19 02/01/19 Unknown History Active Meds: Active Medications Acetaminophen (Tylenol) 650 mg PO Q4H PRN PRN Reason: Pain MILD(1-3)/Fever >100.5/VALENZUELA Last Admin: 02/13/19 12:35 Dose: 650 mg Documented by: Albuterol (Proventil) 2.5 mg IH Q4HRT PRN PRN Reason: Shortness Of Breath Albuterol/Ipratropium (Duoneb *Not For Prn Use*) 1 ampul IH Q6HRT [facility] Last Admin: 02/14/19 13:09 Dose: 1 ampul Documented by: Lipase/Protease/Amylase (Carola Hammond 10,500 Unit) 1 each FEEDTUBE PRN PRN PRN Reason: For Clogged Feeding Tube Last Admin: 02/13/19 21:35 Dose: 1 each Documented by: Dexamethasone (Decadron) 4 mg IV Q12HR [facility] Last Admin: 02/14/19 09:32 Dose: 4 mg Documented by: Diltiazem HCl (Cardizem) 60 mg PO Q6H [facility] Last Admin: 02/14/19 11:51 Dose: 60 mg Documented by: Famotidine (Pepcid) 20 mg PO BID [facility] Last Admin: 02/14/19 09:32 Dose: 20 mg Documented by: Folic Acid (Folvite) 1 mg PO QDAY [facility] Last Admin: 02/14/19 09:32 Dose: 1 mg Documented by: Hydralazine HCl (Apresoline) 10 mg IV Q6H PRN PRN Reason: Hypertension Hydrophilic Ointment (Vaseline Lip Therapy) 1 applic TP Q2HR PRN PRN Reason: Dry Lips Last Admin: 02/02/19 16:50 Dose: 1 applic Documented by: Ceftriaxone Sodium (Rocephin/Ns 2 Gm/100 Ml) 2 gm in 100 mls @ 200 mls/hr IV Q12HR [facility]; Protocol Stop: 02/15/19 23:59 Last Infusion: 02/14/19 10:31 Dose: Infused Documented by: Dextrose (D5w) 1,000 mls @ 75 mls/hr IV DIRECT [facility] Last Admin: 02/14/19 06:20 Dose: 75 mls/hr Documented by: Insulin Glargine (Lantus) 30 units SUB-Q QHS [facility] Last Admin: 02/13/19 21:08 Dose: 30 units Documented by: Insulin Human Regular (Humulin R) 0 units SUB-Q Q6HR [facility]; Protocol Last Admin: 02/14/19 11:52 Dose: 3 units Documented by: Levothyroxine Sodium (Synthroid) 125 mcg PO QAM [facility] Last Admin: 02/14/19 09:32 Dose: 125 mcg Documented by: Multi-Ingred Cream/Lotion/Oil/Oint (Artificial Tears Ophth Oint) 1 applic OU Q4 HR PRN PRN Reason: Dry Eye(s) Last Admin: 02/08/19 21:18 Dose: 1 applic Documented by: Multivitamins (Centrum Liq) 5 ml PO QDAY [facility] Last Admin: 02/14/19 09:31 Dose: 5 ml Documented by: Ondansetron HCl (Zofran) 4 mg IV Q8H PRN PRN Reason: Nausea And Vomiting Simple Syrup (Simple Syrup) 15 ml FEEDTUBE PRN PRN PRN Reason: Hypoglycemia Simple Syrup (Simple Syrup) 30 ml FEEDTUBE PRN PRN PRN Reason: Hypoglycemia Sodium Bicarbonate (Sodium Bicarbonate) 325 mg FEEDTUBE PRN PRN PRN Reason: For Clogged Feeding Tube Last Admin: 02/13/19 21:35 Dose: 325 mg Documented by: Sodium Chloride (Sodium Chloride Flush Syringe 10 Ml) 10 ml IV BID AMOL Last Admin: 02/14/19 09:32 Dose: 10 ml Documented by: Sodium Chloride (Sodium Chloride Flush Syringe 10 Ml) 10 ml IV PRN PRN PRN Reason: LINE FLUSH Review of Systems ROS unobtainable: due to endotracheal tube Exam Vital Signs Temp Pulse Resp BP Pulse Ox 101.8 F H 144 H 44 H 90/60 89 02/01/19 07:16 02/01/19 07:16 02/01/19 07:16 02/01/19 07:16 02/01/19 07:16 Narrative exam: General: Awake, alert, oriented 3. Apparent distress HEENT: No scleral icterus or conjunctival pallor. Endotracheal tube and OG tube in place. Tube feeds running. Trachea midline. No lymphadenopathy. CV: S1, S2 present Respiratory: No audible wheezes. On vent Abdomen: Soft, nontender, nondistended. Extremities: Generalized edema Results - Labs 02/14/19 04:03 02/14/19 04:03 Abnormal lab results 02/13/19 02/13/19 02/14/19 Range/Units 18:01 23:47 04:03 RDW 16.0 H (13.2-15.2) % Seg Neuts % (Manual) 94.0 H (40.0-70.0) % Lymphocytes % (Manual) 2.0 L (13.4-35.0) % Seg Neutrophils # Man 8.9 H (1.8-7.7) K/mm3 Lymphocytes # (Manual) 0.2 L (1.2-5.4) K/mm3 Potassium (3.6-5.0) mmol/L Chloride (98-107) mmol/L Carbon Dioxide (22-30) mmol/L BUN (7-17) mg/dL Glucose (65-100) mg/dL POC Glucose 151 H 144 H (70-105) Calcium (8.4-10.2) mg/dL Magnesium (1.7-2.3) mg/dL AST (5-40) units/L Alkaline Phosphatase (35-129) units/L Albumin (3.9-5) g/dL 02/14/19 02/14/19 02/14/19 Range/Units 04:03 04:03 05:10 RDW (13.2-15.2) % Seg Neuts % (Manual) (40.0-70.0) % Lymphocytes % (Manual) (13.4-35.0) % Seg Neutrophils # Man (1.8-7.7) K/mm3 Lymphocytes # (Manual) (1.2-5.4) K/mm3 Potassium 3.4 L (3.6-5.0) mmol/L Chloride 108.7 H (98-107) mmol/L Carbon Dioxide 21 L (22-30) mmol/L BUN 96 H (7-17) mg/dL Glucose 129 H (65-100) mg/dL POC Glucose 145 H (70-105) Calcium 8.2 L (8.4-10.2) mg/dL Magnesium 1.60 L (1.7-2.3) mg/dL AST 65 H (5-40) units/L Alkaline Phosphatase 164 H (35-129) units/L Albumin 1.7 L (3.9-5) g/dL Diabetes panel 02/14/19 Range/Units 04:03 Sodium 142 (137-145) mmol/L Potassium 3.4 L (3.6-5.0) mmol/L Chloride 108.7 H (98-107) mmol/L Carbon Dioxide 21 L (22-30) mmol/L BUN 96 H (7-17) mg/dL Creatinine 1.1 (0.7-1.2) mg/dL Glucose 129 H (65-100) mg/dL Calcium 8.2 L (8.4-10.2) mg/dL AST 65 H (5-40) units/L ALT 40 (7-56) units/L Alkaline Phosphatase 164 H (35-129) units/L Total Protein 6.7 (6.3-8.2) g/dL Albumin 1.7 L (3.9-5) g/dL Calcium panel 02/14/19 Range/Units 04:03 Calcium 8.2 L (8.4-10.2) mg/dL Albumin 1.7 L (3.9-5) g/dL Pituitary panel 02/14/19 Range/Units 04:03 Sodium 142 (137-145) mmol/L Potassium 3.4 L (3.6-5.0) mmol/L Chloride 108.7 H (98-107) mmol/L Carbon Dioxide 21 L (22-30) mmol/L BUN 96 H (7-17) mg/dL Creatinine 1.1 (0.7-1.2) mg/dL Glucose 129 H (65-100) mg/dL Calcium 8.2 L (8.4-10.2) mg/dL Adrenal panel 02/14/19 Range/Units 04:03 Sodium 142 (137-145) mmol/L Potassium 3.4 L (3.6-5.0) mmol/L Chloride 108.7 H (98-107) mmol/L Carbon Dioxide 21 L (22-30) mmol/L BUN 96 H (7-17) mg/dL Creatinine 1.1 (0.7-1.2) mg/dL Glucose 129 H (65-100) mg/dL Calcium 8.2 L (8.4-10.2) mg/dL Total Bilirubin 0.30 (0.1-1.2) mg/dL AST 65 H (5-40) units/L ALT 40 (7-56) units/L Alkaline Phosphatase 164 H (35-129) units/L Total Protein 6.7 (6.3-8.2) g/dL Albumin 1.7 L (3.9-5) g/dL - Imaging Chest x-ray: report reviewed, image reviewed Additional studies: Ct neck - images and report reviewed Assessment and Plan 53 yo F with VDRF CT scan neck: extensive inflammatory change and edema on the right side of the neck, with underlying adenopathy. This process would be consistent with an inflammatory process/cellulitis Plan: 1. continue vent management and current treatment per critical care team and consultants 2. Will plan for trach/PEG next week. No family at bedside. I called patient's mother and got voicemail - message left. I called patient's son and no answer. Will try again tomorrow. Discussed plan with patient's RN Lamont. Thank you, please call with questions.
[2019-02-14] MEDS: ACETAMINOPHEN 325 MG TAB PO PRN ×2 (17:14→22:12)
[2019-02-14] MEDS: INSULIN GLARGINE 100 UNITS/ML SUB-Q SCH (22:13)
[2019-02-15] MEDS: IPRATROPIUM/ALBUTEROL SULFATE 3 ML AMPUL.NEB IH SCH ×4 (02:48→19:08)
[2019-02-15] MEDS: INSULIN REGULAR, HUMAN 100 UNITS/1 ML SUB-Q SCH ×3 (05:47→18:00)
[2019-02-15] MEDS: dilTIAZem 60 MG TAB PO SCH ×3 (05:48→18:00)
[2019-02-15 06:23] LABS: Hematocrit 34.5 % (30.3-42.9); Mean Corpuscular HGB Conc 32 % (30-34); Mean Corpuscular Volume 91 fl (79-97); Platelet Count 246 K/mm3 (140-440); Red Blood Count 3.78 M/mm3 (3.65-5.03); Red Cell Distribution Width 15.9 % (13.2-15.2)
[2019-02-15 06:29] LABS: Alanine Aminotransferase 45 units/L (7-56); Albumin 1.9 g/dL (3.9-5); BUN/Creatinine Ratio 91; Blood Urea Nitrogen 91 mg/dL (7-17); Calcium 8.2 mg/dL (8.4-10.2); Hemolysis Index 6
[2019-02-15] MEDS: ACETAMINOPHEN 325 MG TAB PO PRN ×3 (07:14→18:23)
--- NOTE | 2019-02-15 07:26 | Progress Note ---
Assessment and Plan Patient was altered and was not able to give history. History obtained from her son and her sister. 53-year-old -[place] female with past medical history significant for hypothyroidism, hypertension, autoimmune disease was brought via EMS to the emergency department with c/o of altered mental status. Night prior to adLast night she went out with family for dinner and she was confused, she was barely speaking, difficulty of finding words. EMS was called and patient refused to come to the hospital. This morning the patient was found in her bed unresponsive by her son called EMS and brought her to the hospital. Patient had cough for a month, she had sore throat for a week and had pain on swallowing and didn't eat anything last night. - Severe sepsis with Strep pneumoniae bacteremia, pneumonia and meningitis: TERRENCE was negative for vegetations per cardiology. ID following continue with Ceftriaxone - Acute respiratory failure on MV > 96 hours cont vent mx. per pulmonology Bronhcodilators Not Weaning off the vent. for trach and PEG - Hyperglycemia cont ssi, amd lantus - Thrombocytopenia likely due to sepsis or autoimmune phenomenon, hematology input appreciated, hiv-negative, fibrinogen level is not low, PT PTT is normal. 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 families is unclear on this medical history, but know that she has some form of autoimmune disease Compliments are reduced, CHESTER is positive, anti ds dna pending, highly suspect lupus cont steroids - Acute metabolic encephalopathy Likely due to sepsis, EEG neg for seizure, neuro input appreciated - Type 2 [place] SSI Glucerna - Hypothyroidism TSH elevated, synthroid dose increased -repeat TFTs in 4-6 wks - Hypokalemia Still supplement - Acute encephalopathy: secondary to meningitis. MRI brain showed acute ischemic changes in the posterior distribution of the R MCA, right frontal and parietal deep white matter and left frontal deep white matter, additional foci of ischemic change in b/l cerebellar hemispheres. - DVT PPx SCD only. No anticoagulation b/c Thrombocytopenia and GI with pepcid - Code status: Full code Subjective Date of service: 02/15/19 Principal diagnosis: Sepsis, Pneumonia, meningitis acute kidney injury Interval history: Patient seen and examined. Remains intubated > 96 hrs. Discussed with nursing staff. No overnight events reported to me. Objective - Exam Narrative Exam: Constitutional: Intubated and connected to mechanical ventilation for over 96 hours Head: Normocephalic atraumatic Eyes: Pupils are equal round and reactive to light Nose: No enlarged turbinates, no septal deviation. Mouth: ET tube in place Moist mucous membranes. Neck: Supple no thyromegaly. No bruit. No JVD Heart: Regular rate and rhythm, S1-S2 normal. No rubs murmurs or gallop Lungs: Decreased breath sounds bilaterally. no rales or rhonchi Abdomen: Soft, nontender. Bowel sound are present. Extremities: No edema, no cyanosis, no clubbing. Neuro: unresponsive. Skin: No rashes or hyperpigmented spots Musculoskeletal system: No joint pain or swelling Hematological: No petechia or subcutanous hemorrhages. Immunological: No multiple septic spots on the skin Lymphatic: No generalized lymphadenopathy Psychiatry: Euthymic. Calm. - Constitutional Vitals: Vital Signs - 12hr 02/14/19 02/14/19 02/14/19 19:30 19:52 19:54 Temperature Pulse Rate 77 77 Pulse Rate [ From Monitor] Pulse Rate [ 78 Posterior Throughout] Pulse Rate [ Right Radial] Respiratory 21 20 Rate Respiratory 17 Rate [Posterior Throughout] Blood Pressure 108/50 108/50 O2 Sat by Pulse 99 100 Oximetry 02/14/19 02/14/19 02/14/19 19:57 20:00 20:30 Temperature 98.3 F Pulse Rate 83 81 Pulse Rate [ 90 From Monitor] Pulse Rate [ 86 Posterior Throughout] Pulse Rate [ 90 Right Radial] Respiratory 22 21 Rate Respiratory 148 H Rate [Posterior Throughout] Blood Pressure 126/67 128/64 O2 Sat by Pulse 100 99 Oximetry 02/14/19 02/14/19 02/14/19 21:00 21:30 22:00 Temperature Pulse Rate 82 84 85 Pulse Rate [ 86 From Monitor] Pulse Rate [ Posterior Throughout] Pulse Rate [ 86 Right Radial] Respiratory 23 21 28 H Rate Respiratory Rate [Posterior Throughout] Blood Pressure 123/72 122/74 135/76 O2 Sat by Pulse 99 99 100 Oximetry 02/14/19 02/14/19 02/14/19 22:30 23:00 23:30 Temperature Pulse Rate 87 80 80 Pulse Rate [ From Monitor] Pulse Rate [ Posterior Throughout] Pulse Rate [ Right Radial] Respiratory 26 H 20 20 Rate Respiratory Rate [Posterior Throughout] Blood Pressure 137/74 126/63 131/73 O2 Sat by Pulse 98 99 100 Oximetry 02/14/19 02/14/19 02/15/19 23:57 23:58 00:00 Temperature 98.8 F Pulse Rate 78 78 Pulse Rate [ 79 From Monitor] Pulse Rate [ Posterior Throughout] Pulse Rate [ 78 Right Radial] Respiratory 21 Rate Respiratory Rate [Posterior Throughout] Blood Pressure 130/73 130/73 O2 Sat by Pulse 100 100 Oximetry 02/15/19 02/15/19 02/15/19 00:30 01:00 01:30 Temperature Pulse Rate 78 83 80 Pulse Rate [ From Monitor] Pulse Rate [ Posterior Throughout] Pulse Rate [ Right Radial] Respiratory 20 22 21 Rate Respiratory Rate [Posterior Throughout] Blood Pressure 130/69 136/69 129/71 O2 Sat by Pulse 99 99 99 Oximetry 02/15/19 02/15/19 02/15/19 02:00 02:31 02:48 Temperature Pulse Rate 78 85 Pulse Rate [ From Monitor] Pulse Rate [ 80 Posterior Throughout] Pulse Rate [ Right Radial] Respiratory 21 17 Rate Respiratory 14 Rate [Posterior Throughout] Blood Pressure 127/67 127/67 O2 Sat by Pulse 99 98 Oximetry 02/15/19 02/15/19 02/15/19 02:56 03:01 03:30 Temperature Pulse Rate 84 84 Pulse Rate [ From Monitor] Pulse Rate [ 81 Posterior Throughout] Pulse Rate [ Right Radial] Respiratory 40 H 20 Rate Respiratory 22 Rate [Posterior Throughout] Blood Pressure 140/92 128/86 O2 Sat by Pulse 98 98 Oximetry 02/15/19 02/15/19 02/15/19 03:39 04:00 04:01 Temperature 98.9 F 98.9 F Pulse Rate 83 Pulse Rate [ 97 H From Monitor] Pulse Rate [ Posterior Throughout] Pulse Rate [ 97 H Right Radial] Respiratory 20 20 Rate Respiratory Rate [Posterior Throughout] Blood Pressure 160/92 O2 Sat by Pulse 100 99 Oximetry 02/15/19 02/15/19 02/15/19 04:30 05:00 05:31 Temperature Pulse Rate 86 86 84 Pulse Rate [ From Monitor] Pulse Rate [ Posterior Throughout] Pulse Rate [ Right Radial] Respiratory 23 23 22 Rate Respiratory Rate [Posterior Throughout] Blood Pressure 160/93 146/87 146/87 O2 Sat by Pulse 98 99 99 Oximetry 02/15/19 02/15/19 05:48 06:00 Temperature Pulse Rate 84 86 Pulse Rate [ From Monitor] Pulse Rate [ Posterior Throughout] Pulse Rate [ Right Radial] Respiratory 25 H Rate Respiratory Rate [Posterior Throughout] Blood Pressure 158/86 154/87 O2 Sat by Pulse 98 Oximetry - Labs CBC & Chem 7: 02/15/19 05:33 02/15/19 05:33 Labs: Abnormal lab results 02/14/19 02/14/19 02/14/19 Range/Units 05:10 11:51 17:42 RDW (13.2-15.2) % Chloride (98-107) mmol/L BUN (7-17) mg/dL Glucose (65-100) mg/dL POC Glucose 145 H 192 H 229 H (70-105) Calcium (8.4-10.2) mg/dL AST (5-40) units/L Alkaline Phosphatase (35-129) units/L Albumin (3.9-5) g/dL 02/14/19 02/15/19 02/15/19 Range/Units 23:33 05:33 05:33 RDW 15.9 H (13.2-15.2) % Chloride 108.2 H (98-107) mmol/L BUN 91 H (7-17) mg/dL Glucose 197 H (65-100) mg/dL POC Glucose 204 H (70-105) Calcium 8.2 L (8.4-10.2) mg/dL AST 61 H (5-40) units/L Alkaline Phosphatase 215 H (35-129) units/L Albumin 1.9 L (3.9-5) g/dL 02/15/19 Range/Units 05:41 RDW (13.2-15.2) % Chloride (98-107) mmol/L BUN (7-17) mg/dL Glucose (65-100) mg/dL POC Glucose 209 H (70-105) Calcium (8.4-10.2) mg/dL AST (5-40) units/L Alkaline Phosphatase (35-129) units/L Albumin (3.9-5) g/dL
--- NOTE | 2019-02-15 08:35 | Hem/Onc Progress Note ---
Assessment and Plan 1. h/o Thrombocytopenia, sepsis/infection/antibiotic related. Folate level is low, B12 is normal. Serum iron is low, but ferritin is not low. HIV negative. Fibrinogen level is not low. PT, PTT is not abnormal. Supportive care at this time will help the patient. 2. Diabetes. 3. Hypothyroidism. 4. History of renal impairment, on supportive care. 5. Intubation for respiratory issues. 6. Neurology team saw the patient. Neurology thinks it is septic metabolic encephalopathy. I will follow the patient during inpatient stay. 02/14 plt normalized low folate on replacement pt still - on vent neurology following TERRENCE done trach peg eval will follow PRN - Patient Problems (1) Thrombocytopenia Current Visit: Yes Status: Acute Subjective Date of service: 02/15/19 Principal diagnosis: h/o low plt Interval history: not verbalizing Objective - Exam Narrative Exam: Pain - not evaluable General appearance intubated Performance status complete dependent Eyes - no icterus ENT - no bleeding - on vent LNs cervical not palpable Neck - no LN Respiratory Normal Breath sounds - CTA anteriorly CVS S1 S2 + Extremities normal temperature General GI Soft Rectal deferred female - deferred Skin warm Musculoskeletal no movements Neurologically not responding - Constitutional Vitals: Last Vital Signs Temp 98.9 F 02/15/19 04:00 Pulse 80 02/15/19 07:31 Resp 18 02/15/19 07:31 BP 134/77 02/15/19 07:31 Pulse Ox 98 02/15/19 07:31 - Labs Lab Results: Laboratory Results - last 24 hr 02/14/19 02/14/19 02/14/19 11:51 17:42 23:33 WBC RBC Hgb Hct MCV MCH MCHC RDW Plt Count Seg Neutrophils % Sodium Potassium Chloride Carbon Dioxide Anion Gap BUN Creatinine Estimated GFR BUN/Creatinine Ratio Glucose POC Glucose 192 H 229 H 204 H Calcium Total Bilirubin AST ALT Alkaline Phosphatase Total Protein Albumin Albumin/Globulin Ratio 02/15/19 02/15/19 02/15/19 05:33 05:33 05:41 WBC 8.3 RBC 3.78 Hgb 11.0 Hct 34.5 MCV 91 MCH 29 MCHC 32 RDW 15.9 H Plt Count 246 Seg Neutrophils % Environmental Geologist Sodium 142 Potassium 3.6 Chloride 108.2 H Carbon Dioxide 22 Anion Gap 15 BUN 91 H Creatinine 1.0 Estimated GFR > 60 BUN/Creatinine Ratio 91 Glucose 197 H POC Glucose 209 H Calcium 8.2 L Total Bilirubin 0.30 AST 61 H ALT 45 Alkaline Phosphatase 215 H Total Protein 6.8 Albumin 1.9 L Albumin/Globulin Ratio 0.4 Medications & Allergies - Medications Allergies/Adverse Reactions: Allergies No Known Allergies Allergy (Verified 08/18/18 09:04) Home Medications: Home Medications Medication Instructions Recorded Confirmed Last Taken Type Levothyroxine [Synthroid] 112 mcg PO QAM 02/01/19 02/01/19 Unknown History Lisinopril [Zestril TAB] 40 mg PO QDAY 02/01/19 02/01/19 Unknown History amLODIPine [Norvasc] 10 mg PO DAILY 02/01/19 02/01/19 Unknown History cloNIDine [Catapres] 1 mg PO QDAY 02/01/19 02/01/19 Unknown History Active Medications: Generic Name Dose Route Start Last Admin Trade Name Freq PRN Reason Stop Dose Admin Acetaminophen 650 mg 02/01/19 10:47 02/15/19 07:14 Tylenol PO 650 mg Q4H PRN Administration Pain MILD(1-3)/Fever >100.5/VALENZUELA Albuterol 2.5 mg 02/01/19 10:47 Proventil IH Q4HRT PRN Shortness Of Breath Albuterol/Ipratropium 1 ampul 02/01/19 12:00 02/15/19 02:48 Duoneb *Not For Prn Use* IH 1 ampul Q6HRT AMOL Administration Lipase/Protease/Amylase 1 each 02/05/19 11:04 02/13/19 21:35 Pancreemeka Hammond 10,500 Unit FEEDTUBE 1 each PRN PRN Administration For Clogged Feeding Tube Dexamethasone 4 mg 02/11/19 22:00 02/14/19 22:11 Decadron IV 4 mg Q12HR AMOL Administration Diltiazem HCl 60 mg 02/13/19 12:00 02/15/19 05:48 Cardizem PO 60 mg Q6H AMOL Administration Famotidine 20 mg 02/12/19 10:00 02/14/19 22:11 Pepcid PO 20 mg BID AMOL Administration Folic Acid 1 mg 02/06/19 10:00 02/14/19 09:32 Folvite PO 1 mg QDAY AMOL Administration Hydralazine HCl 10 mg 02/13/19 22:15 Apresoline IV Q6H PRN Hypertension Hydrophilic Ointment 1 applic 02/01/19 11:09 02/02/19 16:50 Vaseline Lip Therapy TP 1 applic Q2HR PRN Administration Dry Lips Ceftriaxone Sodium 2 gm in 100 mls @ 200 mls/hr 02/05/19 13:00 02/14/19 22:50 Rocephin/Ns 2 Gm/100 Ml IV 02/15/19 23:59 100 mls/hr Q12HR AMOL Administration Protocol Dextrose 1,000 mls @ 75 mls/hr 02/14/19 06:00 02/14/19 19:07 D5w IV 75 mls/hr DIRECT AMOL Administration Insulin Glargine 30 units 02/11/19 16:36 02/14/19 22:13 Lantus SUB-Q 30 units QHS AMOL Administration Insulin Human Regular 0 units 02/10/19 19:00 02/15/19 05:47 Humulin R SUB-Q 4 units Q6HR AMOL Administration Protocol Levothyroxine Sodium 125 mcg 02/07/19 10:00 02/14/19 09:32 Synthroid PO 125 mcg QAM AMOL Administration Multi-Ingred Cream/Lotion/Oil/Oint 1 applic 02/01/19 11:09 02/08/19 21:18 Artificial Tears Ophth Oint OU 1 applic Q4HR PRN Administration Dry Eye(s) Multivitamins 5 ml 02/06/19 10:00 02/14/19 09:31 Centrum Liq PO 5 ml QDAY AMOL Administration Ondansetron HCl 4 mg 02/01/19 10:47 Zofran IV Q8H PRN Nausea And Vomiting Simple Syrup 15 ml 02/05/19 11:04 Simple Syrup FEEDTUBE PRN PRN Hypoglycemia Simple Syrup 30 ml 02/05/19 11:04 Simple Syrup FEEDTUBE PRN PRN Hypoglycemia Sodium Bicarbonate 325 mg 02/05/19 11:04 02/13/19 21:35 Sodium Bicarbonate FEEDTUBE 325 mg PRN PRN Administration For Clogged Feeding Tube Sodium Chloride 10 ml 02/01/19 22:00 02/14/19 22:11 Sodium Chloride Flush Syringe 10 Ml IV 10 ml BID AMOL Administration Sodium Chloride 10 ml 02/01/19 10:47 Sodium Chloride Flush Syringe 10 Ml IV PRN PRN LINE FLUSH
[2019-02-15 08:47] LABS: Basophils % (Manual) 0 % (0.0-1.8); Eosinophils % (Manual) 0 % (0.0-4.3); Total Cells Counted 100
[2019-02-15 08:48] LABS: Hypersegmented Neutrophils Few; Platelet Estimate Consistent w Auto
[2019-02-15] MEDS: LEVOTHYROXINE 125 MCG TAB PO SCH (10:00)
[2019-02-15] MEDS: MULTIVITAMINS 5 ML ORAL LIQUID PO SCH (10:00)
[2019-02-15] MEDS: FAMOTIDINE 20 MG TAB PO SCH ×2 (10:00→21:06)
[2019-02-15] MEDS: dexAMETHasone 4 MG/ML VIAL IV SCH ×2 (10:00→21:05)
[2019-02-15] MEDS: FOLIC ACID 1 MG TAB PO SCH (10:00)
[2019-02-15] MEDS: cefTRIAXone/NS 2 GM/100 ML 2 GM/100 ML BAG IV SCH ×2 (10:00→21:05)
--- NOTE | 2019-02-15 10:49 | Progress Note ---
Assessment and Plan Cont present cardiac management. Pt has been scheduled for trach and PEG. Will follow on as needed basis. The patient has been seen in conjunction with Dr. Hodge who agrees with the assessment and plan of care. - Patient Problems (1) Sepsis Current Visit: Yes Status: Acute (2) Bacteremia Current Visit: Yes Status: Acute (3) Meningitis Current Visit: Yes Status: Acute (4) Pneumonia Current Visit: Yes Status: Acute (5) Acute respiratory failure Current Visit: Yes Status: Acute (6) Atrial fibrillation with RVR Current Visit: Yes Status: Resolved (7) Altered mental status Current Visit: Yes Status: Acute (8) Cellulitis, neck Current Visit: Yes Status: Acute (9) Thrombocytopenia Current Visit: Yes Status: Acute (10) DIANA (acute kidney injury) Current Visit: Yes Status: Acute (11) PFO (patent foramen ovale) Current Visit: Yes Status: Chronic Subjective Date of service: 02/15/19 Principal diagnosis: AFib RVR Interval history: pt remains intubated, eyes open, following some commands with her right side, tracking movement with her eyes. in SR on tele. no family at bedside. Objective Last Vital Signs Temp 98.7 F 02/15/19 08:00 Pulse 77 02/15/19 09:53 Resp 18 02/15/19 09:53 BP 134/77 02/15/19 07:31 Pulse Ox 98 02/15/19 07:31 - Physical Examination General: Other (intubated, eyes open) HEENT: Positive: Normocephaly Neck: Positive: neck supple Cardiac: Positive: Reg Rate and Rhythm, S1/S2 Lungs: Positive: Decreased Breath Sounds Neuro: Positive: Other (intubated, eyes open ) Abdomen: Positive: Unremarkable /Rectal: Other (deferred) Skin: Positive: Clear Musculoskeletal: Decreased Range of Motion Extremities: Present: normal - Labs and Meds Cardiac Enzymes 02/15/19 Range/Units 05:33 AST 61 H (5-40) units/L CBC 02/15/19 Range/Units 05:33 WBC 8.3 (4.5-11.0) K/mm3 RBC 3.78 (3.65-5.03) M/mm3 Hgb 11.0 (10.1-14.3) gm/dl Hct 34.5 (30.3-42.9) % Plt Count 246 (140-440) K/mm3 Comprehensive Metabolic Panel 02/15/19 Range/Units 05:33 Sodium 142 (137-145) mmol/L Potassium 3.6 (3.6-5.0) mmol/L Chloride 108.2 H (98-107) mmol/L Carbon Dioxide 22 (22-30) mmol/L BUN 91 H (7-17) mg/dL Creatinine 1.0 (0.7-1.2) mg/dL Glucose 197 H (65-100) mg/dL Calcium 8.2 L (8.4-10.2) mg/dL AST 61 H (5-40) units/L ALT 45 (7-56) units/L Alkaline Phosphatase 215 H (35-129) units/L Total Protein 6.8 (6.3-8.2) g/dL Albumin 1.9 L (3.9-5) g/dL - Imaging and Cardiology EKG: report reviewed, image reviewed Echo: report reviewed ( 02/02/2019 showed EF 55-60%, mild to mod LVH, atrial septal aneurysm, aortic valve heavily calcified, dense mitral annular calcification, mild MR, mild TR, mild ND, bubble study suggestive of PFO, ? pulmonic valve vegetation.) - EKG Ventricular dysrhythmias: ventricular premature com
--- NOTE | 2019-02-15 11:57 | Progress Note ---
Assessment and Plan 53 y/o female with strep pneumonae bacteremia, meningitis and now stroke with acute respiratory failure and continued azotemia. 1. Neuro: Tomorrow will change Decadron to 2q12. Will make a decision on Tuesday as to how much longer roids are needed at this point. 2. MSK: Continue PT as patient's mental status has improved and she is very weak. 3. Renal: Stopped D5W. Cr has improved, BUN still elevated but no evidence of acute bleeding. Could be related to steroids. Starting to decrease those now. 4. CV-Follow up cards recs if any new ones. 5. Family and patient have agreed to trach and peg placement. Spoke with surg daja this am and secondary to scheduling will not be able to perform this until Tuesday of next week. 6. Overall prognosis remains guarded, however good that patient is awake. Total critical care time 31 minutes Subjective Date of service: 02/15/19 Principal diagnosis: AFib RVR Interval history: No acute events. Seen by surgery on yesterday. Tolerating tube feeds and PSV trials. Family at bedside. Blood pressure has not been an issue anymore. Sugars are more elevated now that back on D5W. Objective Vital Signs - 12hr 02/14/19 02/14/19 02/15/19 23:57 23:58 00:00 Temperature 98.8 F Pulse Rate 78 78 Pulse Rate [ Anterior Bilateral Throughout] Pulse Rate [ 79 From Monitor] Pulse Rate [ Posterior Throughout] Pulse Rate [ 78 Right Radial] Respiratory 21 Rate Respiratory Rate [Anterior Bilateral Throughout] Respiratory Rate [Posterior Throughout] Blood Pressure 130/73 130/73 O2 Sat by Pulse 100 100 Oximetry 02/15/19 02/15/19 02/15/19 00:30 01:00 01:30 Temperature Pulse Rate 78 83 80 Pulse Rate [ Anterior Bilateral Throughout] Pulse Rate [ From Monitor] Pulse Rate [ Posterior Throughout] Pulse Rate [ Right Radial] Respiratory 20 22 21 Rate Respiratory Rate [Anterior Bilateral Throughout] Respiratory Rate [Posterior Throughout] Blood Pressure 130/69 136/69 129/71 O2 Sat by Pulse 99 99 99 Oximetry 02/15/19 02/15/19 02/15/19 02:00 02:31 02:48 Temperature Pulse Rate 78 85 Pulse Rate [ Anterior Bilateral Throughout] Pulse Rate [ From Monitor] Pulse Rate [ 80 Posterior Throughout] Pulse Rate [ Right Radial] Respiratory 21 17 Rate Respiratory Rate [Anterior Bilateral Throughout] Respiratory 14 Rate [Posterior Throughout] Blood Pressure 127/67 127/67 O2 Sat by Pulse 99 98 Oximetry 02/15/19 02/15/19 02/15/19 02:56 03:01 03:30 Temperature Pulse Rate 84 84 Pulse Rate [ Anterior Bilateral Throughout] Pulse Rate [ From Monitor] Pulse Rate [ 81 Posterior Throughout] Pulse Rate [ Right Radial] Respiratory 40 H 20 Rate Respiratory Rate [Anterior Bilateral Throughout] Respiratory 22 Rate [Posterior Throughout] Blood Pressure 140/92 128/86 O2 Sat by Pulse 98 98 Oximetry 02/15/19 02/15/19 02/15/19 03:39 04:00 04:01 Temperature 98.9 F 98.9 F Pulse Rate 83 Pulse Rate [ Anterior Bilateral Throughout] Pulse Rate [ 97 H From Monitor] Pulse Rate [ Posterior Throughout] Pulse Rate [ 97 H Right Radial] Respiratory 20 20 Rate Respiratory Rate [Anterior Bilateral Throughout] Respiratory Rate [Posterior Throughout] Blood Pressure 160/92 O2 Sat by Pulse 100 99 Oximetry 02/15/19 02/15/19 02/15/19 04:30 05:00 05:31 Temperature Pulse Rate 86 86 84 Pulse Rate [ Anterior Bilateral Throughout] Pulse Rate [ From Monitor] Pulse Rate [ Posterior Throughout] Pulse Rate [ Right Radial] Respiratory 23 23 22 Rate Respiratory Rate [Anterior Bilateral Throughout] Respiratory Rate [Posterior Throughout] Blood Pressure 160/93 146/87 146/87 O2 Sat by Pulse 98 99 99 Oximetry 02/15/19 02/15/19 02/15/19 05:48 06:00 07:31 Temperature Pulse Rate 84 86 80 Pulse Rate [ Anterior Bilateral Throughout] Pulse Rate [ From Monitor] Pulse Rate [ Posterior Throughout] Pulse Rate [ Right Radial] Respiratory 25 H 18 Rate Respiratory Rate [Anterior Bilateral Throughout] Respiratory Rate [Posterior Throughout] Blood Pressure 158/86 154/87 134/77 O2 Sat by Pulse 98 98 Oximetry 02/15/19 02/15/19 08:00 09:53 Temperature 98.7 F Pulse Rate Pulse Rate [ 77 Anterior Bilateral Throughout] Pulse Rate [ From Monitor] Pulse Rate [ 77 Posterior Throughout] Pulse Rate [ Right Radial] Respiratory Rate Respiratory 18 Rate [Anterior Bilateral Throughout] Respiratory 19 Rate [Posterior Throughout] Blood Pressure O2 Sat by Pulse Oximetry Constitutional: other (orally intubated on mechanical ventilator. Not on sedation, awake, critically ill) Eyes: non-icteric ENT: oropharynx moist Neck: supple Effort: normal Ascultation: Bilateral: other (coarse BS bilaterally) Cardiovascular: other (tachy, RR; no mrg) Gastrointestinal: normoactive bowel sounds, soft, non-tender, non-distended Integumentary: normal Extremities: no cyanosis, no edema, pink and warm Neurologic: other (eyes open, not following commands or moving extremities) Psychiatric: other (unable to assess) CBC and BMP: 02/15/19 05:33 02/15/19 05:33 ABG, PT/INR, D-dimer: ABG POC ABG pH 7.418 (7.35-7.45) 02/12/19 05:36 ABG pH 7.440 pH Units (7.350-7.450) 02/11/19 04:10 POC ABG pCO2 36.9 (35-45) 02/12/19 05:36 ABG pCO2 37.4 mm Hg 02/11/19 04:10 POC ABG pO2 92 (80-105) 02/12/19 05:36 ABG pO2 69.4 mm Hg (80.0-90.0) L 02/11/19 04:10 POC ABG HCO3 23.8 (22-26 mml/L) 02/12/19 05:36 POC ABG Total CO2 25 (23-27mmol/L) 02/12/19 05:36 POC ABG O2 Sat 97 02/12/19 05:36 ABG O2 Saturation 94.2 % (95.0-99.0) L 02/11/19 04:10 PT/INR, D-dimer PT 16.3 Sec. (12.2-14.9) H 02/06/19 07:35 INR 1.35 (0.87-1.13) H 02/06/19 07:35 Abnormal lab findings: Abnormal Labs 02/01/19 02/01/19 02/01/19 07:16 07:16 07:16 WBC 17.7 H RBC Hgb Hct RDW 16.9 H Plt Count 62 L Seg Neuts % (Manual) 95.0 H Lymphocytes % (Manual) 0 L Seg Neutrophils # Man 16.8 H Lymphocytes # (Manual) 0.0 L PT 15.0 H INR 1.21 H APTT Thrombin Time 20.0 H POC ABG pH ABG pH POC ABG pCO2 POC ABG pO2 ABG pO2 ABG HCO3 ABG O2 Saturation ABG Base Excess ABG Hemoglobin Oxyhemoglobin Sodium 135 L Potassium Chloride 97.7 L Carbon Dioxide 19 L BUN 51 H Creatinine 4.5 H Glucose 112 H POC Glucose Lactic Acid Calcium Magnesium Iron TIBC Direct Bilirubin AST Alkaline Phosphatase Troponin T 0.181 H* C-Reactive Protein Total Protein Albumin LDL Cholesterol Direct 34 L HDL Cholesterol 20 L Vitamin B12 Folate TSH Urine WBC (Auto) Urine Creatinine Urine Total Protein CHESTER Screen CHESTER Titer Complement C3 Complement C4 02/01/19 02/01/19 02/01/19 07:29 07:29 07:43 WBC RBC Hgb Hct RDW Plt Count Seg Neuts % (Manual) Lymphocytes % (Manual) Seg Neutrophils # Man Lymphocytes # (Manual) PT INR APTT Thrombin Time POC ABG pH ABG pH POC ABG pCO2 POC ABG pO2 ABG pO2 ABG HCO3 ABG O2 Saturation ABG Base Excess ABG Hemoglobin Oxyhemoglobin Sodium Potassium Chloride Carbon Dioxide BUN Creatinine Glucose POC Glucose Lactic Acid 4.80 H* Calcium Magnesium Iron TIBC Direct Bilirubin 0.7 H AST 42 H Alkaline Phosphatase Troponin T C-Reactive Protein Total Protein 8.9 H Albumin 2.3 L LDL Cholesterol Direct HDL Cholesterol Vitamin B12 Folate TSH 8.470 H Urine WBC (Auto) Urine Creatinine Urine Total Protein CHE[place] Screen CHESTER Titer Complement C3 Complement C4 02/01/19 02/01/19 02/01/19 09:45 11:32 13:50 WBC RBC Hgb Hct RDW Plt Count Seg Neuts % (Manual) Lymphocytes % (Manual) Seg Neutrophils # Man Lymphocytes # (Manual) PT INR APTT Thrombin Time POC ABG pH 7.289 L ABG pH POC ABG pCO2 POC ABG pO2 355 H ABG pO2 ABG HCO3 ABG O2 Saturation ABG Base Excess ABG Hemoglobin Oxyhemoglobin Sodium Potassium Chloride Carbon Dioxide BUN Creatinine Glucose POC Glucose Lactic Acid 4.10 H* Calcium Magnesium Iron TIBC Direct Bilirubin AST Alkaline Phosphatase Troponin T C-Reactive Protein Total Protein Albumin LDL Cholesterol Direct HDL Cholesterol Vitamin B12 Folate TSH Urine WBC (Auto) 16.0 H Urine Creatinine Urine Total Protein [place] Screen CHE[place] Titer Complement C3 Complement C4 02/01/19 02/01/19 02/01/19 15:15 16:20 16:51 WBC RBC Hgb Hct RDW Plt Count Seg Neuts % (Manual) Lymphocytes % (Manual) Seg Neutrophils # Man Lymphocytes # (Manual) PT INR APTT Thrombin Time POC ABG pH ABG pH POC ABG pCO2 POC ABG pO2 ABG pO2 ABG HCO3 ABG O2 Saturation ABG Base Excess ABG Hemoglobin Oxyhemoglobin Sodium Potassium Chloride Carbon Dioxide BUN Creatinine Glucose POC Glucose 115 H Lactic Acid 4.50 H* Calcium Magnesium Iron TIBC Direct Bilirubin AST Alkaline Phosphatase Troponin T C-Reactive Protein Total Protein Albumin LDL Cholesterol Direct HDL Cholesterol Vitamin B12 Folate TSH Urine WBC (Auto) Urine Creatinine Urine Total Protein CHE[place] Screen CHE[place] Titer Complement C3 36 L Complement C4 02/01/19 02/01/19 02/01/19 16:51 17:03 17:04 WBC RBC Hgb Hct RDW Plt Count Seg Neuts % (Manual) Lymphocytes % (Manual) Seg Neutrophils # Man Lymphocytes # (Manual) PT INR APTT Thrombin Time POC ABG pH ABG pH POC ABG pCO2 POC ABG pO2 ABG pO2 ABG HCO3 ABG O2 Saturation ABG Base Excess ABG Hemoglobin Oxyhemoglobin Sodium Potassium Chloride Carbon Dioxide BUN Creatinine Glucose POC Glucose Lactic Acid 2.80 H* Calcium Magnesium Iron TIBC Direct Bilirubin AST Alkaline Phosphatase Troponin T C-Reactive Protein 32.30 H Total Protein Albumin LDL Cholesterol Direct HDL Cholesterol Vitamin B12 Folate TSH Urine WBC (Auto) Urine Creatinine Urine Total Protein [place] Screen [place] Titer Complement C3 Complement C4 12 L 02/01/19 02/01/19 02/02/19 17:04 19:28 05:16 WBC RBC Hgb Hct RDW Plt Count Seg Neuts % (Manual) Lymphocytes % (Manual) Seg Neutrophils # Man Lymphocytes # (Manual) PT INR APTT Thrombin Time POC ABG pH ABG pH POC ABG pCO2 POC ABG pO2 148 H ABG pO2 ABG HCO3 ABG O2 Saturation ABG Base Excess ABG Hemoglobin Oxyhemoglobin Sodium Potassium Chloride 107.1 H Carbon Dioxide 18 L BUN 52 H Creatinine 3.1 H Glucose 120 H POC Glucose Lactic Acid Calcium 7.4 L Magnesium Iron TIBC Direct Bilirubin AST Alkaline Phosphatase Troponin T C-Reactive Protein Total Protein Albumin LDL Cholesterol Direct HDL Cholesterol Vitamin B12 Folate TSH Urine WBC (Auto) Urine Creatinine Urine Total Protein CHE[place] Screen Positive H CHESTER Titer 1:320 H Complement C3 Complement C4 02/02/19 02/02/19 02/03/19 05:53 05:53 03:30 WBC 14.3 H RBC 5.16 H Hgb 14.9 H Hct 46.2 H D RDW 16.9 H 17.0 H Plt Count 43 L 18 L* Seg Neuts % (Manual) 93.0 H Lymphocytes % (Manual) 2.0 L Seg Neutrophils # Man 13.3 H Lymphocytes # (Manual) 0.3 L PT INR APTT Thrombin Time POC ABG pH ABG pH POC ABG pCO2 POC ABG pO2 ABG pO2 ABG HCO3 ABG O2 Saturation ABG Base Excess ABG Hemoglobin Oxyhemoglobin Sodium Potassium 5.1 H Chloride Carbon Dioxide 21 L BUN 57 H Creatinine 3.3 H Glucose 147 H POC Glucose Lactic Acid Calcium 7.5 L Magnesium Iron TIBC Direct Bilirubin AST 51 H Alkaline Phosphatase Troponin T C-Reactive Protein Total Protein Albumin 1.6 L LDL Cholesterol Direct HDL Cholesterol Vitamin B12 Folate TSH Urine WBC (Auto) Urine Creatinine Urine Total Protein [place] Screen [place] Titer Complement C3 Complement C4 02/03/19 02/03/19 02/03/19 03:30 05:55 14:42 WBC RBC Hgb Hct RDW Plt Count Seg Neuts % (Manual) Lymphocytes % (Manual) Seg Neutrophils # Man Lymphocytes # (Manual) PT INR APTT Thrombin Time POC ABG pH ABG pH POC ABG pCO2 POC ABG pO2 117 H ABG pO2 ABG HCO3 ABG O2 Saturation ABG Base Excess ABG Hemoglobin Oxyhemoglobin Sodium Potassium Chloride Carbon Dioxide BUN 65 H Creatinine 2.7 H Glucose 117 H POC Glucose Lactic Acid Calcium 7.2 L Magnesium Iron TIBC Direct Bilirubin AST Alkaline Phosphatase Troponin T C-Reactive Protein Total Protein Albumin LDL Cholesterol Direct HDL Cholesterol Vitamin B12 1468 H Folate TSH Urine WBC (Auto) Urine Creatinine Urine Total Protein [place] Screen [place] Titer Complement C3 Complement C4 02/03/19 02/03/19 02/03/19 14:42 14:42 14:42 WBC RBC 3.17 L Hgb 9.4 L D Hct 28.3 L D RDW 16.9 H Plt Count 18 L* Seg Neuts % (Manual) Lymphocytes % (Manual) Seg Neutrophils # Man Lymphocytes # (Manual) PT INR APTT Thrombin Time POC ABG pH ABG pH POC ABG pCO2 POC ABG pO2 ABG pO2 ABG HCO3 ABG O2 Saturation ABG Base Excess ABG Hemoglobin Oxyhemoglobin Sodium Potassium Chloride Carbon Dioxide BUN Creatinine Glucose POC Glucose Lactic Acid Calcium Magnesium Iron 11 L TIBC 88 L Direct Bilirubin AST Alkaline Phosphatase Troponin T C-Reactive Protein Total Protein Albumin LDL Cholesterol Direct HDL Cholesterol Vitamin B12 Folate 5.18 L TSH Urine WBC (Auto) Urine Creatinine Urine Total Protein [place] Screen [place] Titer Complement C3 Complement C4 02/03/19 02/03/19 02/04/19 14:42 14:42 03:35 WBC RBC 3.22 L Hgb 9.5 L Hct 28.5 L RDW 16.4 H Plt Count 18 L* Seg Neuts % (Manual) Lymphocytes % (Manual) Seg Neutrophils # Man Lymphocytes # (Manual) PT 15.8 H INR 1.29 H APTT 38.2 H Thrombin Time POC ABG pH ABG pH 7.470 H POC ABG pCO2 POC ABG pO2 ABG pO2 ABG HCO3 28.4 H ABG O2 Saturation ABG Base Excess 4.5 H ABG Hemoglobin 10.1 L Oxyhemoglobin 94.7 L Sodium Potassium Chloride Carbon Dioxide BUN Creatinine Glucose POC Glucose Lactic Acid Calcium Magnesium Iron TIBC Direct Bilirubin AST Alkaline Phosphatase Troponin T C-Reactive Protein Total Protein Albumin LDL Cholesterol Direct HDL Cholesterol Vitamin B12 Folate TSH Urine WBC (Auto) Urine Creatinine Urine Total Protein [place] Screen [place] Titer Complement C3 Complement C4 02/04/19 02/04/19 02/05/19 05:02 05:02 03:50 WBC RBC Hgb Hct RDW 16.5 H Plt Count 20 L Seg Neuts % (Manual) 94.0 H Lymphocytes % (Manual) 2.0 L Seg Neutrophils # Man 9.2 H Lymphocytes # (Manual) 0.2 L PT INR APTT Thrombin Time POC ABG pH ABG pH 7.485 H POC ABG pCO2 POC ABG pO2 ABG pO2 ABG HCO3 27.5 H ABG O2 Saturation ABG Base Excess 3.9 H ABG Hemoglobin 9.1 L Oxyhemoglobin 94.8 L Sodium Potassium Chloride Carbon Dioxide BUN 66 H Creatinine 1.7 H Glucose 127 H POC Glucose Lactic Acid Calcium 7.6 L Magnesium Iron TIBC Direct Bilirubin AST Alkaline Phosphatase Troponin T C-Reactive Protein Total Protein Albumin LDL Cholesterol Direct HDL Cholesterol Vitamin B12 Folate TSH Urine WBC (Auto) Urine Creatinine Urine Total Protein [place] Screen CHE[place] Titer Complement C3 Complement C4 02/05/19 02/05/19 02/05/19 13:02 14:36 20:03 WBC 11.7 H RBC 3.48 L 3.24 L Hgb 10.0 L 9.4 L Hct 29.2 L RDW 16.3 H 16.3 H Plt Count 50 L D 71 L Seg Neuts % (Manual) 95.0 H 95.0 H Lymphocytes % (Manual) 0 L 2.0 L Seg Neutrophils # Man 11.1 H 10.2 H Lymphocytes # (Manual) 0.0 L 0.2 L PT INR APTT Thrombin Time POC ABG pH ABG pH POC ABG pCO2 POC ABG pO2 ABG pO2 ABG HCO3 ABG O2 Saturation ABG Base Excess ABG Hemoglobin Oxyhemoglobin Sodium Potassium Chloride Carbon Dioxide BUN 67 H Creatinine 1.5 H Glucose POC Glucose Lactic Acid Calcium 7.7 L Magnesium Iron TIBC Direct Bilirubin AST Alkaline Phosphatase Troponin T C-Reactive Protein Total Protein Albumin LDL Cholesterol Direct HDL Cholesterol Vitamin B12 Folate TSH Urine WBC (Auto) Urine Creatinine Urine Total Protein [place] Screen [place] Titer Complement C3 Complement C4 02/06/19 02/06/19 02/06/19 05:39 07:35 18:34 WBC RBC Hgb Hct RDW Plt Count Seg Neuts % (Manual) Lymphocytes % (Manual) Seg Neutrophils # Man Lymphocytes # (Manual) PT 16.3 H INR 1.35 H APTT Thrombin Time POC ABG pH ABG pH POC ABG pCO2 POC ABG pO2 ABG pO2 ABG HCO3 ABG O2 Saturation ABG Base Excess ABG Hemoglobin Oxyhemoglobin Sodium Potassium Chloride Carbon Dioxide BUN Creatinine Glucose POC Glucose 107 H 121 H Lactic Acid Calcium Magnesium Iron TIBC Direct Bilirubin AST Alkaline Phosphatase Troponin T C-Reactive Protein Total Protein Albumin LDL Cholesterol Direct HDL Cholesterol Vitamin B12 Folate TSH Urine WBC (Auto) Urine Creatinine Urine Total Protein [place] Screen [place] Titer Complement C3 Complement C4 02/06/19 02/07/19 02/07/19 Unknown 01:07 04:15 WBC RBC Hgb Hct RDW Plt Count Seg Neuts % (Manual) Lymphocytes % (Manual) Seg Neutrophils # Man Lymphocytes # (Manual) PT INR APTT Thrombin Time POC ABG pH ABG pH POC ABG pCO2 POC ABG pO2 ABG pO2 ABG HCO3 ABG O2 Saturation ABG Base Excess ABG Hemoglobin 5.0 L Oxyhemoglobin 94.9 L 94.8 L Sodium 146 H Potassium Chloride Carbon Dioxide BUN 85 H Creatinine 1.8 H Glucose 163 H POC Glucose Lactic Acid Calcium 8.3 L Magnesium Iron TIBC Direct Bilirubin AST Alkaline Phosphatase Troponin T C-Reactive Protein Total Protein Albumin LDL Cholesterol Direct HDL Cholesterol Vitamin B12 Folate TSH Urine WBC (Auto) Urine Creatinine Urine Total Protein [place] Screen CHE[place] Titer Complement C3 Complement C4 02/07/19 02/07/19 02/08/19 08:22 10:58 04:40 WBC RBC Hgb Hct RDW 16.0 H Plt Count 84 L Seg Neuts % (Manual) 97.0 H Lymphocytes % (Manual) 0 L Seg Neutrophils # Man 9.5 H Lymphocytes # (Manual) 0.0 L PT INR APTT Thrombin Time POC ABG pH 7.477 H ABG pH 7.467 H POC ABG pCO2 34.8 L POC ABG pO2 118 H ABG pO2 ABG HCO3 ABG O2 Saturation ABG Base Excess ABG Hemoglobin 8.4 L Oxyhemoglobin Sodium Potassium Chloride Carbon Dioxide BUN Creatinine Glucose POC Glucose Lactic Acid Calcium Magnesium Iron TIBC Direct Bilirubin AST Alkaline Phosphatase Troponin T C-Reactive Protein Total Protein Albumin LDL Cholesterol Direct HDL Cholesterol Vitamin B12 Folate TSH Urine WBC (Auto) Urine Creatinine Urine Total Protein [place] Screen [place] Titer Complement C3 Complement C4 02/09/19 02/09/19 02/09/19 03:17 03:17 04:35 WBC 14.9 H RBC 3.32 L Hgb 9.6 L Hct RDW 15.9 H Plt Count 113 L Seg Neuts % (Manual) 96.0 H Lymphocytes % (Manual) 1.0 L Seg Neutrophils # Man 14.3 H Lymphocytes # (Manual) 0.1 L PT INR APTT Thrombin Time POC ABG pH ABG pH 7.478 H POC ABG pCO2 POC ABG pO2 ABG pO2 94.5 H ABG HCO3 ABG O2 Saturation ABG Base Excess ABG Hemoglobin 6.1 L Oxyhemoglobin Sodium 147 H Potassium Chloride 110.4 H Carbon Dioxide BUN 114 H Creatinine 2.2 H Glucose 270 H POC Glucose Lactic Acid Calcium 8.1 L Magnesium Iron TIBC Direct Bilirubin AST Alkaline Phosphatase Troponin T C-Reactive Protein Total Protein Albumin 1.6 L LDL Cholesterol Direct HDL Cholesterol Vitamin B12 Folate TSH Urine WBC (Auto) Urine Creatinine Urine Total Protein [place] Screen [place] Titer Complement C3 Complement C4 02/09/19 02/09/19 02/10/19 13:35 18:54 05:13 WBC RBC Hgb Hct RDW Plt Count Seg Neuts % (Manual) Lymphocytes % (Manual) Seg Neutrophils # Man Lymphocytes # (Manual) PT INR APTT Thrombin Time POC ABG pH ABG pH 7.478 H POC ABG pCO2 POC ABG pO2 ABG pO2 ABG HCO3 ABG O2 Saturation ABG Base Excess ABG Hemoglobin 8.1 L Oxyhemoglobin 94.9 L Sodium Potassium Chloride Carbon Dioxide BUN Creatinine Glucose POC Glucose Lactic Acid Calcium Magnesium Iron TIBC Direct Bilirubin AST Alkaline Phosphatase Troponin T C-Reactive Protein Total Protein Albumin LDL Cholesterol Direct HDL Cholesterol Vitamin B12 Folate TSH Urine WBC (Auto) 10.0 H Urine Creatinine 92.9 H Urine Total Protein 116 H [place] Screen [place] Titer Complement C3 Complement C4 02/10/19 02/10/19 02/11/19 18:14 23:24 04:10 WBC RBC Hgb Hct RDW Plt Count Seg Neuts % (Manual) Lymphocytes % (Manual) Seg Neutrophils # Man Lymphocytes # (Manual) PT INR APTT Thrombin Time POC ABG pH ABG pH POC ABG pCO2 POC ABG pO2 ABG pO2 69.4 L ABG HCO3 ABG O2 Saturation 94.2 L ABG Base Excess ABG Hemoglobin 11.0 L Oxyhemoglobin 92.1 L Sodium Potassium Chloride Carbon Dioxide BUN Creatinine Glucose POC Glucose 453 H 403 H Lactic Acid Calcium Magnesium Iron TIBC Direct Bilirubin AST Alkaline Phosphatase Troponin T C-Reactive Protein Total Protein Albumin LDL Cholesterol Direct HDL Cholesterol Vitamin B12 Folate TSH Urine WBC (Auto) Urine Creatinine Urine Total Protein [place] Screen [place] Titer Complement C3 Complement C4 02/11/19 02/11/19 02/11/19 04:54 04:54 05:40 WBC 12.5 H RBC 3.18 L Hgb 9.4 L Hct 29.4 L RDW 16.6 H Plt Count Seg Neuts % (Manual) 94.0 H Lymphocytes % (Manual) 4.0 L Seg Neutrophils # Man 11.8 H Lymphocytes # (Manual) 0.5 L PT INR APTT Thrombin Time POC ABG pH ABG pH POC ABG pCO2 POC ABG pO2 ABG pO2 ABG HCO3 ABG O2 Saturation ABG Base Excess ABG Hemoglobin Oxyhemoglobin Sodium 151 H Potassium Chloride 112.6 H Carbon Dioxide BUN 127 H Creatinine 1.8 H Glucose 396 H POC Glucose 410 H Lactic Acid Calcium 8.3 L Magnesium Iron TIBC Direct Bilirubin AST Alkaline Phosphatase 132 H Troponin T C-Reactive Protein Total Protein Albumin 2.1 L LDL Cholesterol Direct HDL Cholesterol Vitamin B12 Folate TSH Urine WBC (Auto) Urine Creatinine Urine Total Protein [place] Screen [place] Titer Complement C3 Complement C4 02/11/19 02/11/19 02/11/19 11:30 17:58 23:18 WBC RBC Hgb Hct RDW Plt Count Seg Neuts % (Manual) Lymphocytes % (Manual) Seg Neutrophils # Man Lymphocytes # (Manual) PT INR APTT Thrombin Time POC ABG pH ABG pH POC ABG pCO2 POC ABG pO2 ABG pO2 ABG HCO3 ABG O2 Saturation ABG Base Excess ABG Hemoglobin Oxyhemoglobin Sodium Potassium Chloride Carbon Dioxide BUN Creatinine Glucose POC Glucose 361 H 414 H 392 H Lactic Acid Calcium Magnesium Iron TIBC Direct Bilirubin AST Alkaline Phosphatase Troponin T C-Reactive Protein Total Protein Albumin LDL Cholesterol Direct HDL Cholesterol Vitamin B12 Folate TSH Urine WBC (Auto) Urine Creatinine Urine Total Protein [place] Screen [place] Titer Complement C3 Complement C4 02/12/19 02/12/19 02/12/19 05:32 05:36 05:36 WBC 11.9 H RBC 3.40 L Hgb 9.9 L Hct RDW 16.4 H Plt Count Seg Neuts % (Manual) 97.0 H Lymphocytes % (Manual) 2.0 L Seg Neutrophils # Man 11.5 H Lymphocytes # (Manual) 0.2 L PT INR APTT Thrombin Time POC ABG pH ABG pH POC ABG pCO2 POC ABG pO2 ABG pO2 ABG HCO3 ABG O2 Saturation ABG Base Excess ABG Hemoglobin Oxyhemoglobin Sodium 146 H Potassium 3.5 L Chloride 110.2 H Carbon Dioxide BUN 118 H Creatinine 1.4 H Glucose 382 H POC Glucose 361 H Lactic Acid Calcium 8.3 L Magnesium Iron TIBC Direct Bilirubin AST Alkaline Phosphatase 137 H Troponin T C-Reactive Protein Total Protein Albumin 2.0 L LDL Cholesterol Direct HDL Cholesterol Vitamin B12 Folate TSH Urine WBC (Auto) Urine Creatinine Urine Total Protein [place] Screen [place] Titer Complement C3 Complement C4 02/12/19 02/12/19 02/12/19 11:51 17:18 21:46 WBC RBC Hgb Hct RDW Plt Count Seg Neuts % (Manual) Lymphocytes % (Manual) Seg Neutrophils # Man Lymphocytes # (Manual) PT INR APTT Thrombin Time POC ABG pH ABG pH POC ABG pCO2 POC ABG pO2 ABG pO2 ABG HCO3 ABG O2 Saturation ABG Base Excess ABG Hemoglobin Oxyhemoglobin Sodium Potassium Chloride Carbon Dioxide BUN Creatinine Glucose POC Glucose 357 H 280 H 222 H Lactic Acid Calcium Magnesium Iron TIBC Direct Bilirubin AST Alkaline Phosphatase Troponin T C-Reactive Protein Total Protein Albumin LDL Cholesterol Direct HDL Cholesterol Vitamin B12 Folate TSH Urine WBC (Auto) Urine Creatinine Urine Total Protein [place] Screen [place] Titer Complement C3 Complement C4 02/12/19 02/13/19 02/13/19 23:58 03:41 03:41 WBC 11.6 H RBC 3.53 L Hgb Hct RDW 15.8 H Plt Count 98 L Seg Neuts % (Manual) 97.0 H Lymphocytes % (Manual) 2.0 L Seg Neutrophils # Man 11.3 H Lymphocytes # (Manual) 0.2 L PT INR APTT Thrombin Time POC ABG pH ABG pH POC ABG pCO2 POC ABG pO2 ABG pO2 ABG HCO3 ABG O2 Saturation ABG Base Excess ABG Hemoglobin Oxyhemoglobin Sodium Potassium 3.4 L Chloride 109.7 H Carbon Dioxide BUN 108 H Creatinine Glucose 182 H POC Glucose 208 H Lactic Acid Calcium Magnesium Iron TIBC Direct Bilirubin AST 45 H Alkaline Phosphatase 150 H Troponin T C-Reactive Protein Total Protein Albumin 1.8 L LDL Cholesterol Direct HDL Cholesterol Vitamin B12 Folate TSH Urine WBC (Auto) Urine Creatinine Urine Total Protein [place] Screen [place] Titer Complement C3 Complement C4 02/13/19 02/13/19 02/13/19 05:40 11:31 18:01 WBC RBC Hgb Hct RDW Plt Count Seg Neuts % (Manual) Lymphocytes % (Manual) Seg Neutrophils # Man Lymphocytes # (Manual) PT INR APTT Thrombin Time POC ABG pH ABG pH POC ABG pCO2 POC ABG pO2 ABG pO2 ABG HCO3 ABG O2 Saturation ABG Base Excess ABG Hemoglobin Oxyhemoglobin Sodium Potassium Chloride Carbon Dioxide BUN Creatinine Glucose POC Glucose 179 H 193 H 151 H Lactic Acid Calcium Magnesium Iron TIBC Direct Bilirubin AST Alkaline Phosphatase Troponin T C-Reactive Protein Total Protein Albumin LDL Cholesterol Direct HDL Cholesterol Vitamin B12 Folate TSH Urine WBC (Auto) Urine Creatinine Urine Total Protein [place] Screen [place] Titer Complement C3 Complement C4 02/13/19 02/14/19 02/14/19 23:47 04:03 04:03 WBC RBC Hgb Hct RDW 16.0 H Plt Count Seg Neuts % (Manual) 94.0 H Lymphocytes % (Manual) 2.0 L Seg Neutrophils # Man 8.9 H Lymphocytes # (Manual) 0.2 L PT INR APTT Thrombin Time POC ABG pH ABG pH POC ABG pCO2 POC ABG pO2 ABG pO2 ABG HCO3 ABG O2 Saturation ABG Base Excess ABG Hemoglobin Oxyhemoglobin Sodium Potassium 3.4 L Chloride 108.7 H Carbon Dioxide 21 L BUN 96 H Creatinine Glucose 129 H POC Glucose 144 H Lactic Acid Calcium 8.2 L Magnesium Iron TIBC Direct Bilirubin AST 65 H Alkaline Phosphatase 164 H Troponin T C-Reactive Protein Total Protein Albumin 1.7 L LDL Cholesterol Direct HDL Cholesterol Vitamin B12 Folate TSH Urine WBC (Auto) Urine Creatinine Urine Total Protein CHESTER Screen CHESTER Titer Complement C3 Complement C4 02/14/19 02/14/19 02/14/19 04:03 05:10 11:51 WBC RBC Hgb Hct RDW Plt Count Seg Neuts % (Manual) Lymphocytes % (Manual) Seg Neutrophils # Man Lymphocytes # (Manual) PT INR APTT Thrombin Time POC ABG pH ABG pH POC ABG pCO2 POC ABG pO2 ABG pO2 ABG HCO3 ABG O2 Saturation ABG Base Excess ABG Hemoglobin Oxyhemoglobin Sodium Potassium Chloride Carbon Dioxide BUN Creatinine Glucose POC Glucose 145 H 192 H Lactic Acid Calcium Magnesium 1.60 L Iron TIBC Direct Bilirubin AST Alkaline Phosphatase Troponin T C-Reactive Protein Total Protein Albumin LDL Cholesterol Direct HDL Cholesterol Vitamin B12 Folate TSH Urine WBC (Auto) Urine Creatinine Urine Total Protein CHESTER Screen CHESTER Titer Complement C3 Complement C4 02/14/19 02/14/19 02/15/19 17:42 23:33 05:33 WBC RBC Hgb Hct RDW 15.9 H Plt Count Seg Neuts % (Manual) 95.0 H Lymphocytes % (Manual) 1.0 L Seg Neutrophils # Man 7.9 H Lymphocytes # (Manual) 0.1 L PT INR APTT Thrombin Time POC ABG pH ABG pH POC ABG pCO2 POC ABG pO2 ABG pO2 ABG HCO3 ABG O2 Saturation ABG Base Excess ABG Hemoglobin Oxyhemoglobin Sodium Potassium Chloride Carbon Dioxide BUN Creatinine Glucose POC Glucose 229 H 204 H Lactic Acid Calcium Magnesium Iron TIBC Direct Bilirubin AST Alkaline Phosphatase Troponin T C-Reactive Protein Total Protein Albumin LDL Cholesterol Direct HDL Cholesterol Vitamin B12 Folate TSH Urine WBC (Auto) Urine Creatinine Urine Total Protein CHESTER Screen CHESTER Titer Complement C3 Complement C4 02/15/19 02/15/19 05:33 05:41 WBC RBC Hgb Hct RDW Plt Count Seg Neuts % (Manual) Lymphocytes % (Manual) Seg Neutrophils # Man Lymphocytes # (Manual) PT INR APTT Thrombin Time POC ABG pH ABG pH POC ABG pCO2 POC ABG pO2 ABG pO2 ABG HCO3 ABG O2 Saturation ABG Base Excess ABG Hemoglobin Oxyhemoglobin Sodium Potassium Chloride 108.2 H Carbon Dioxide BUN 91 H Creatinine Glucose 197 H POC Glucose 209 H Lactic Acid Calcium 8.2 L Magnesium Iron TIBC Direct Bilirubin AST 61 H Alkaline Phosphatase 215 H Troponin T C-Reactive Protein Total Protein Albumin 1.9 L LDL Cholesterol Direct HDL Cholesterol Vitamin B12 Folate TSH Urine WBC (Auto) Urine Creatinine Urine Total Protein CHESTER Screen CHESTER Titer Complement C3 Complement C4
--- NOTE | 2019-02-15 13:23 | Progress Note ---
Assessment and Plan Cultures: 02/01/2019 blood culture: Strep pneumoniae in 4/4 bottles 02/01/2019 urine culture: no growth 02/01/2019 tracheal aspirate: Strep species 02/02/2019 blood culture: no growth 02/05/2019 CSF culture: no growth 02/10/2019 sputum Cx: Stenotrophomonas 02/01/2019 C3: 36 (low) 02/01/2019 C4: 12 (low) CHESTER positive 1:320 HIV: non reactive RPR: non reactive Hepatitis panel: non reactive Bartonella serology: negative A/P: 53-year-old female with hypothyroidism, hypertension, ?autoimmune disease. Admitted with: 1) Severe sepsis with Strep pneumoniae bacteremia, pneumonia and meningitis: TTE showed some ?pulmonic valve vegetation. TRERENCE was negative for vegetations per cardiology. CSF shows WBC 1250, RBC 30, PMN 30%, Glucose 38, Protein 140. 2) Right neck severe lymphadenopathy: CT neck was without contrast, hence limited eval of vasculature. Neck US revealed extensive R neck lymphadenopathy, no abscess. HIV, RPR negative. Bartonella serologies negative. On 02/07/2019, patient's mother showed me paperwork from patient's PCP, patient was seen on 01/30/2019 at PCP office for R neck lump, was given medrol dose kevin and ultrasound was ordered. Once creatinine improves, may need CT chest, abdomen pelvis with IV contrast to evaluate for other lymphadenopathy, although the lymphadenopathy may be from lupus. 3) Bilateral pneumonia: sputum culture also growing Strep, likely Strep pneumoniae. Repeat cultures with Stenotrophomonas. Likely a colonizer as her infectious status continues to improve. Frequent colonizer of tubes. 4) Acute renal failure: Nephrology following. Creatinine worse today. 5) ?Autoimmune disease: likely lupus. C3, C4 came back low. CHESTER positive 1:320. ANCA negative. 6) Thrombocytopenia: improved. Hematology following. Sepsis v/s autoimmune in etiology. 7) Acute encephalopathy: secondary to meningitis. MRI brain showed acute ischemic changes in the posterior distribution of the R MCA, right frontal and parietal deep white matter and left frontal deep white matter, additional foci of ischemic change in b/l cerebellar hemispheres. Recs: Final day of ceftriaxone. Stop orders in place for after final dose. No need for prolonged antibiotics. C3, C4 came back low. CHESTER positive 1:320 suggestive of lupus. ds-DNA pending She is out of the window for steroids as adjunctive therapy for Pneumococcal meningitis, however, mental status remains poor and with underlying autoimmune disease and ?renal dysfunction, OK from ID standpoint for steroids. Was started on Dexamethasone 02/09/2019 Overall guarded prognosis With antibiotics stopping today we will sign off. Please call if any new questions arise. Edith Mi MD [facility] ([facility]) M: [phone] O: [phone] F: [phone] Subjective Date of service: 02/15/19 Principal diagnosis: AFib RVR Interval history: No change. Afebrile, normal white count. Objective - Exam Narrative Exam: Physical Exam: Constitutional: opens eyes, tracking, not following commands, intubated Head, Ears, Nose: Normocephalic, atraumatic. External ears, nose normal Eyes: Conjunctivae/corneas clear. No icterus. No ptosis. Neck: R cervical lymphadenopathy, moderately improved Oral: intubated Cardiovascular: S1, S2 normal, irregular Respiratory: AE clear bilaterally, no wheeze GI: Soft, non-tender; bowel sounds normal. No peritoneal signs Musculoskeletal: No pedal edema, no cyanosis. Skin: No rash or abscess Hem/Lymphatic: No palpable cervical or supraclavicular nodes. No lymphangitis Psych: no agitation Neurological: opens eyes, tracking, not following commands, on the vent - Constitutional Vitals: Vital Signs Temp Pulse Resp BP Pulse Ox 98.5 F 84 21 152/88 99 02/15/19 12:00 02/15/19 12:07 02/15/19 12:07 02/15/19 12:07 02/15/19 12:07 Temperature -Last 24 Hours Temperature 98.5 F Temperature 98.7 F Temperature 98.9 F Temperature 98.9 F Temperature 98.8 F Temperature 98.3 F Temperature 98.4 F - Labs CBC & Chem 7: 02/15/19 05:33 02/15/19 05:33 Labs: Abnormal lab results 02/14/19 02/14/19 02/14/19 Range/Units 11:51 17:42 23:33 RDW (13.2-15.2) % Seg Neuts % (Manual) (40.0-70.0) % Lymphocytes % (Manual) (13.4-35.0) % Seg Neutrophils # Man (1.8-7.7) K/mm3 Lymphocytes # (Manual) (1.2-5.4) K/mm3 Chloride (98-107) mmol/L BUN (7-17) mg/dL Glucose (65-100) mg/dL POC Glucose 192 H 229 H 204 H (70-105) Calcium (8.4-10.2) mg/dL AST (5-40) units/L Alkaline Phosphatase (35-129) units/L Albumin (3.9-5) g/dL 02/15/19 02/15/19 02/15/19 Range/Units 05:33 05:33 05:41 RDW 15.9 H (13.2-15.2) % Seg Neuts % (Manual) 95.0 H (40.0-70.0) % Lymphocytes % (Manual) 1.0 L (13.4-35.0) % Seg Neutrophils # Man 7.9 H (1.8-7.7) K/mm3 Lymphocytes # (Manual) 0.1 L (1.2-5.4) K/mm3 Chloride 108.2 H (98-107) mmol/L BUN 91 H (7-17) mg/dL Glucose 197 H (65-100) mg/dL POC Glucose 209 H (70-105) Calcium 8.2 L (8.4-10.2) mg/dL AST 61 H (5-40) units/L Alkaline Phosphatase 215 H (35-129) units/L Albumin 1.9 L (3.9-5) g/dL 02/15/19 Range/Units 12:30 RDW (13.2-15.2) % Seg Neuts % (Manual) (40.0-70.0) % Lymphocytes % (Manual) (13.4-35.0) % Seg Neutrophils # Man (1.8-7.7) K/mm3 Lymphocytes # (Manual) (1.2-5.4) K/mm3 Chloride (98-107) mmol/L BUN (7-17) mg/dL Glucose (65-100) mg/dL POC Glucose 168 H (70-105) Calcium (8.4-10.2) mg/dL AST (5-40) units/L Alkaline Phosphatase (35-129) units/L Albumin (3.9-5) g/dL
--- NOTE | 2019-02-15 20:22 | Event Note ---
Date: 02/15/19 Tracheostomy and PEG scheduled for next tuesday02/21/19. Dr. Fernandez and family made aware.
[2019-02-15] MEDS: INSULIN GLARGINE 100 UNITS/ML SUB-Q SCH (21:07)
[2019-02-16] MEDS: dilTIAZem 60 MG TAB PO SCH ×4 (00:09→18:00)
[2019-02-16] MEDS: INSULIN REGULAR, HUMAN 100 UNITS/1 ML SUB-Q SCH ×4 (00:09→18:00)
[2019-02-16] MEDS: ACETAMINOPHEN 325 MG TAB PO PRN ×3 (00:13→16:50)
[2019-02-16] MEDS: IPRATROPIUM/ALBUTEROL SULFATE 3 ML AMPUL.NEB IH SCH ×4 (01:40→19:43)
[2019-02-16 05:45] LABS: Hematocrit 34.5 % (30.3-42.9); Hemoglobin 11.2 gm/dl (10.1-14.3); Mean Corpuscular HGB Conc 32 % (30-34); Mean Corpuscular Volume 90 fl (79-97); Platelet Count 235 K/mm3 (140-440); Red Blood Count 3.82 M/mm3 (3.65-5.03); Red Cell Distribution Width 15.7 % (13.2-15.2)
[2019-02-16 06:13] LABS: BUN/Creatinine Ratio 90; Blood Urea Nitrogen 90 mg/dL (7-17); Calcium 8.1 mg/dL (8.4-10.2)
[2019-02-16 06:14] LABS: Alanine Aminotransferase 40 units/L (7-56); Hemolysis Index 2
--- NOTE | 2019-02-16 07:17 | Hem/Onc Progress Note ---
Assessment and Plan 1. h/o Thrombocytopenia, sepsis/infection/antibiotic related. Folate level is low, B12 is normal. Serum iron is low, but ferritin is not low. HIV negative. Fibrinogen level is not low. PT, PTT is not abnormal. Supportive care at this time will help the patient. 2. Diabetes. 3. Hypothyroidism. 4. History of renal impairment, on supportive care. 5. Intubation for respiratory issues. 6. Neurology team saw the patient. Neurology thinks it is septic metabolic encephalopathy. I will follow the patient during inpatient stay. 02/16 plt normalized low folate on replacement pt still - on vent neurology following TERRENCE done trach peg eval will follow PRN - Patient Problems (1) Thrombocytopenia Current Visit: Yes Status: Acute Subjective Date of service: 02/16/19 Principal diagnosis: h/o low plt Interval history: not verbalizing Objective - Exam Narrative Exam: Pain - not evaluable General appearance intubated Performance status complete dependent Eyes - no icterus ENT - no bleeding - on vent LNs cervical not palpable Neck - no LN Respiratory Normal Breath sounds - CTA anteriorly CVS S1 S2 + Extremities normal temperature General GI Soft Rectal deferred female - deferred Skin warm Musculoskeletal no movements Neurologically not responding - Constitutional Vitals: Last Vital Signs Temp 98.6 F 02/16/19 03:28 Pulse 64 02/16/19 07:10 Resp 16 02/16/19 07:03 BP 126/78 02/16/19 07:10 Pulse Ox 100 02/16/19 07:03 - Labs Lab Results: Laboratory Results - last 24 hr 02/11/19 02/15/19 02/15/19 04:54 05:33 12:30 WBC 8.3 RBC 3.78 Hgb 11.0 Hct 34.5 MCV 91 MCH 29 MCHC 32 RDW 15.9 H Plt Count 246 Add Manual Diff Complete Total Counted 100 Seg Neutrophils % Lead Principal Technical Architect Seg Neuts % (Manual) 95.0 H Band Neutrophils % 0 Lymphocytes % (Manual) 1.0 L Reactive Lymphs % (Man) 0 Monocytes % (Manual) 4.0 Eosinophils % (Manual) 0 Basophils % (Manual) 0 Metamyelocytes % 0 Myelocytes % 0 Promyelocytes % 0 Blast Cells % 0 Nucleated RBC % Not Reportable Seg Neutrophils # Man 7.9 H Band Neutrophils # 0.0 Lymphocytes # (Manual) 0.1 L Abs React Lymphs (Man) 0.0 Monocytes # (Manual) 0.3 Eosinophils # (Manual) 0.0 Basophils # (Manual) 0.0 Metamyelocytes # 0.0 Myelocytes # 0.0 Promyelocytes # 0.0 Blast Cells # 0.0 WBC Morphology Not Reportable Hypersegmented Neuts Few Hyposegmented Neuts Not Reportable Hypogranular Neuts Not Reportable Smudge Cells Not Reportable Toxic Granulation Not Reportable Toxic Vacuolation Not Reportable Dohle Bodies Not Reportable Pelger-Huet Anomaly Not Reportable Raghav Rods Not Reportable Platelet Estimate Consistent w auto Clumped Platelets Not Reportable Plt Clumps, EDTA Not Reportable Large Platelets Not Reportable Giant Platelets Not Reportable Platelet Satelliting Not Reportable Plt Morphology Comment Not Reportable RBC Morphology Not Reportable Dimorphic RBCs Not Reportable Polychromasia Not Reportable Hypochromasia Not Reportable Poikilocytosis Not Reportable Anisocytosis Not Reportable Microcytosis Not Reportable Macrocytosis Not Reportable Spherocytes Not Reportable Pappenheimer Bodies Not Reportable Sickle Cells Not Reportable Target Cells Not Reportable Tear Drop Cells Not Reportable Ovalocytes Not Reportable Helmet Cells Not Reportable Hickey-Purcell Bodies Not Reportable [place] Rings Not Reportable [place] Cells Not Reportable Bite Cells Not Reportable Crenated Cell Not Reportable Elliptocytes Not Reportable Acanthocytes (Spur) Not Reportable Rouleaux Not Reportable Hemoglobin C Crystals Not Reportable Schistocytes Not Reportable Malaria parasites Not Reportable Riccardo Bodies Not Reportable Hem Pathologist Commnt No Sodium Potassium Chloride Carbon Dioxide Anion Gap BUN Creatinine Estimated GFR BUN/Creatinine Ratio Glucose POC Glucose 168 H Calcium Total Bilirubin AST ALT Alkaline Phosphatase Total Protein Albumin Albumin/Globulin Ratio Double Strand DNA Ab 1 02/15/19 02/15/19 02/16/19 18:17 23:53 04:58 WBC 8.3 RBC 3.82 Hgb 11.2 Hct 34.5 MCV 90 MCH 29 MCHC 32 RDW 15.7 H Plt Count 235 Add Manual Diff Total Counted Seg Neutrophils % Seg Neuts % (Manual) Band Neutrophils % Lymphocytes % (Manual) Reactive Lymphs % (Man) Monocytes % (Manual) Eosinophils % (Manual) Basophils % (Manual) Metamyelocytes % Myelocytes % Promyelocytes % Blast Cells % Nucleated RBC % Seg Neutrophils # Man Band Neutrophils # Lymphocytes # (Manual) Abs React Lymphs (Man) Monocytes # (Manual) Eosinophils # (Manual) Basophils # (Manual) Metamyelocytes # Myelocytes # Promyelocytes # Blast Cells # WBC Morphology Hypersegmented Neuts Hyposegmented Neuts Hypogranular Neuts Smudge Cells Toxic Granulation Toxic Vacuolation Dohle Bodies Pelger-Huet Anomaly Raghav Rods Platelet Estimate Clumped Platelets Plt Clumps, EDTA Large Platelets Giant Platelets Platelet Satelliting Plt Morphology Comment RBC Morphology Dimorphic RBCs Polychromasia Hypochromasia Poikilocytosis Anisocytosis Microcytosis Macrocytosis Spherocytes Pappenheimer Bodies Sickle Cells Target Cells Tear Drop Cells Ovalocytes Helmet Cells Hickey-Purcell Bodies [place] Rings Duc Cells Bite Cells Crenated Cell Elliptocytes Acanthocytes (Spur) Rouleaux Hemoglobin C Crystals Schistocytes Malaria parasites Riccardo Bodies Hem Pathologist Commnt Sodium Potassium Chloride Carbon Dioxide Anion Gap BUN Creatinine Estimated GFR BUN/Creatinine Ratio Glucose POC Glucose 161 H 160 H Calcium Total Bilirubin AST ALT Alkaline Phosphatase Total Protein Albumin Albumin/Globulin Ratio Double Strand DNA Ab 02/16/19 04:58 WBC RBC Hgb Hct MCV MCH MCHC RDW Plt Count Add Manual Diff Total Counted Seg Neutrophils % Seg Neuts % (Manual) Band Neutrophils % Lymphocytes % (Manual) Reactive Lymphs % (Man) Monocytes % (Manual) Eosinophils % (Manual) Basophils % (Manual) Metamyelocytes % Myelocytes % Promyelocytes % Blast Cells % Nucleated RBC % Seg Neutrophils # Man Band Neutrophils # Lymphocytes # (Manual) Abs React Lymphs (Man) Monocytes # (Manual) Eosinophils # (Manual) Basophils # (Manual) Metamyelocytes # Myelocytes # Promyelocytes # Blast Cells # WBC Morphology Hypersegmented Neuts Hyposegmented Neuts Hypogranular Neuts Smudge Cells Toxic Granulation Toxic Vacuolation Dohle Bodies Pelger-Huet Anomaly Raghav Rods Platelet Estimate Clumped Platelets Plt Clumps, EDTA Large Platelets Giant Platelets Platelet Satelliting Plt Morphology Comment RBC Morphology Dimorphic RBCs Polychromasia Hypochromasia Poikilocytosis Anisocytosis Microcytosis Macrocytosis Spherocytes Pappenheimer Bodies Sickle Cells Target Cells Tear Drop Cells Ovalocytes Helmet Cells Hickey-Purcell Bodies [place] Rings [place] Cells Bite Cells Crenated Cell Elliptocytes Acanthocytes (Spur) Rouleaux Hemoglobin C Crystals Schistocytes Malaria parasites Riccardo Bodies Hem Pathologist Commnt Sodium 142 Potassium 3.9 Chloride 108.3 H Carbon Dioxide 22 Anion Gap 16 BUN 90 H Creatinine 1.0 Estimated GFR > 60 BUN/Creatinine Ratio 90 Glucose 126 H POC Glucose Calcium 8.1 L Total Bilirubin 0.20 AST 52 H ALT 40 Alkaline Phosphatase 188 H Total Protein 6.3 Albumin 2.0 L Albumin/Globulin Ratio 0.5 Double Strand DNA Ab Medications & Allergies - Medications Allergies/Adverse Reactions: Allergies No Known Allergies Allergy (Verified 08/18/18 09:04) Home Medications: Home Medications Medication Instructions Recorded Confirmed Last Taken Type Levothyroxine [Synthroid] 112 mcg PO QAM 02/01/19 02/01/19 Unknown History Lisinopril [Zestril TAB] 40 mg PO QDAY 02/01/19 02/01/19 Unknown History amLODIPine [Norvasc] 10 mg PO DAILY 02/01/19 02/01/19 Unknown History cloNIDine [Catapres] 1 mg PO QDAY 02/01/19 02/01/19 Unknown History Active Medications: Generic Name Dose Route Start Last Admin Trade Name Freq PRN Reason Stop Dose Admin Acetaminophen 650 mg 02/01/19 10:47 02/16/19 00:13 Tylenol PO 650 mg Q4H PRN Administration Pain MILD(1-3)/Fever >100.5/VALENZUELA Albuterol 2.5 mg 02/01/19 10:47 Proventil IH Q4HRT PRN Shortness Of Breath Albuterol/Ipratropium 1 ampul 02/01/19 12:00 02/16/19 07:03 Duoneb *Not For Prn Use* IH 1 ampul Q6HRT AMOL Administration Lipase/Protease/Amylase 1 each 02/05/19 11:04 02/13/19 21:35 Pancreemeka Hammond 10,500 Unit FEEDTUBE 1 each PRN PRN Administration For Clogged Feeding Tube Dexamethasone 2 mg 02/16/19 10:00 Decadron IV Q12HR AMOL Diltiazem HCl 60 mg 02/13/19 12:00 02/16/19 07:10 Cardizem PO Not Given Q6H AMOL Famotidine 20 mg 02/12/19 10:00 02/15/19 21:06 Pepcid PO 20 mg BID AMOL Administration Folic Acid 1 mg 02/06/19 10:00 02/15/19 10:00 Folvite PO 1 mg QDAY AMOL Administration Hydralazine HCl 10 mg 02/13/19 22:15 Apresoline IV Q6H PRN Hypertension Hydrophilic Ointment 1 applic 02/01/19 11:09 02/02/19 16:50 Vaseline Lip Therapy TP 1 applic Q2HR PRN Administration Dry Lips Insulin Glargine 30 units 02/11/19 16:36 02/15/19 21:07 Lantus SUB-Q 30 units QHS AMOL Administration Insulin Human Regular 0 units 02/10/19 19:00 02/16/19 07:12 Humulin R SUB-Q Not Given Q6HR [facility] Protocol Levothyroxine Sodium 125 mcg 02/07/19 10:00 02/15/19 10:00 Synthroid PO 125 mcg QAM AMOL Administration Multi-Ingred Cream/Lotion/Oil/Oint 1 applic 02/01/19 11:09 02/08/19 21:18 Artificial Tears Ophth Oint OU 1 applic Q4HR PRN Administration Dry Eye(s) Multivitamins 5 ml 02/06/19 10:00 02/15/19 10:00 Centrum Liq PO 5 ml QDAY AMOL Administration Ondansetron HCl 4 mg 02/01/19 10:47 Zofran IV Q8H PRN Nausea And Vomiting Simple Syrup 15 ml 02/05/19 11:04 Simple Syrup FEEDTUBE PRN PRN Hypoglycemia Simple Syrup 30 ml 02/05/19 11:04 Simple Syrup FEEDTUBE PRN PRN Hypoglycemia Sodium Bicarbonate 325 mg 02/05/19 11:04 02/13/19 21:35 Sodium Bicarbonate FEEDTUBE 325 mg PRN PRN Administration For Clogged Feeding Tube Sodium Chloride 10 ml 02/01/19 22:00 02/15/19 21:04 Sodium Chloride Flush Syringe 10 Ml IV 10 ml BID AMOL Administration Sodium Chloride 10 ml 02/01/19 10:47 Sodium Chloride Flush Syringe 10 Ml IV PRN PRN LINE FLUSH
[2019-02-16 07:20] LABS: Band Neutrophils # (Manual) 0.1 K/mm3; Basophils % (Manual) 0 % (0.0-1.8); Eosinophils % (Manual) 0 % (0.0-4.3); Total Cells Counted 100
[2019-02-16 07:21] LABS: Hypersegmented Neutrophils Rare; Platelet Estimate Consistent w Auto; Schistocytes Rare; Target Cells Rare
--- NOTE | 2019-02-16 07:44 | Progress Note ---
Assessment and Plan Patient was altered and was not able to give history. History obtained from her son and her sister. 53-year-old -[place] female with past medical history significant for hypothyroidism, hypertension, autoimmune disease was brought via EMS to the emergency department with c/o of altered mental status. Night prior to adLast night she went out with family for dinner and she was confused, she was barely speaking, difficulty of finding words. EMS was called and patient refused to come to the hospital. This morning the patient was found in her bed unresponsive by her son called EMS and brought her to the hospital. Patient had cough for a month, she had sore throat for a week and had pain on swallowing and didn't eat anything last night. - Severe sepsis with Strep pneumoniae bacteremia, pneumonia and meningitis: TERRENCE was negative for vegetations per cardiology. ID following continue with Ceftriaxone - Acute respiratory failure on MV > 96 hours cont vent mx. per pulmonology Bronhcodilators Not Weaning off the vent. for trach and PEG - Hyperglycemia cont ssi, amd lantus - Thrombocytopenia - corrected likely due to sepsis or autoimmune phenomenon, hematology input appreciated, hiv-negative, fibrinogen level is not low, PT PTT is normal. 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 families is unclear on this medical history, but know that she has some form of autoimmune disease Compliments are reduced, CHESTER is positive, anti ds dna pending, highly suspect lupus cont steroids - Acute metabolic encephalopathy Likely due to sepsis, EEG neg for seizure, neuro input appreciated - Type 2 ME SSI Glucerna - Hypothyroidism TSH elevated, synthroid dose increased -repeat TFTs in 4-6 wks - Hypokalemia Still supplement - Acute encephalopathy: secondary to meningitis. MRI brain showed acute ischemic changes in the posterior distribution of the R MCA, right frontal and parietal deep white matter and left frontal deep white matter, additional foci of ischemic change in b/l cerebellar hemispheres. - DVT PPx SCD only. No anticoagulation b/c Thrombocytopenia and GI with pepcid - Code status: Full code Subjective Date of service: 02/16/19 Principal diagnosis: sepsis, pneumonia, lupus, meningitis, Interval history: Patient seen and examined. Remains intubated > 96 hrs. Discussed with nursing staff. No overnight events reported to me. Remains afebrile Objective - Exam Narrative Exam: Constitutional: Intubated and connected to mechanical ventilation for over 96 hours Head: Normocephalic atraumatic Eyes: Pupils are equal round and reactive to light Nose: No enlarged turbinates, no septal deviation. Mouth: ET tube in place Moist mucous membranes. Neck: Supple no thyromegaly. No bruit. No JVD Heart: Regular rate and rhythm, S1-S2 normal. No rubs murmurs or gallop Lungs: Decreased breath sounds bilaterally. no rales or rhonchi Abdomen: Soft, nontender. Bowel sound are present. Extremities: No edema, no cyanosis, no clubbing. Neuro: unresponsive. Skin: No rashes or hyperpigmented spots Musculoskeletal system: No joint pain or swelling Hematological: No petechia or subcutanous hemorrhages. Immunological: No multiple septic spots on the skin Lymphatic: No generalized lymphadenopathy Psychiatry: Intubated and unresponsive - Constitutional Vitals: Vital Signs - 12hr 02/15/19 02/15/19 02/15/19 20:00 20:17 20:18 Temperature 99 F Pulse Rate 80 88 Pulse Rate [ 111 H Anterior Bilateral Throughout] Pulse Rate [ 80 From Monitor] Pulse Rate [ 110 H Posterior Throughout] Pulse Rate [ 80 Right Radial] Respiratory 22 Rate Respiratory 22 Rate [Anterior Bilateral Throughout] Respiratory 24 Rate [Posterior Throughout] Blood Pressure 138/78 117/76 O2 Sat by Pulse 100 99 Oximetry 02/15/19 02/15/19 02/15/19 20:30 21:01 21:09 Temperature Pulse Rate 80 87 80 Pulse Rate [ Anterior Bilateral Throughout] Pulse Rate [ From Monitor] Pulse Rate [ Posterior Throughout] Pulse Rate [ Right Radial] Respiratory 20 23 22 Rate Respiratory Rate [Anterior Bilateral Throughout] Respiratory Rate [Posterior Throughout] Blood Pressure 130/76 134/81 134/81 O2 Sat by Pulse 100 100 99 Oximetry 02/15/19 02/15/19 02/15/19 21:30 21:33 22:00 Temperature Pulse Rate 85 82 82 Pulse Rate [ Anterior Bilateral Throughout] Pulse Rate [ 80 From Monitor] Pulse Rate [ Posterior Throughout] Pulse Rate [ 80 Right Radial] Respiratory 23 22 22 Rate Respiratory Rate [Anterior Bilateral Throughout] Respiratory Rate [Posterior Throughout] Blood Pressure 138/81 138/81 139/85 O2 Sat by Pulse 99 99 99 Oximetry 02/15/19 02/15/19 02/15/19 22:31 23:00 23:13 Temperature 99.4 F Pulse Rate 92 H 86 Pulse Rate [ Anterior Bilateral Throughout] Pulse Rate [ From Monitor] Pulse Rate [ Posterior Throughout] Pulse Rate [ Right Radial] Respiratory 21 23 Rate Respiratory Rate [Anterior Bilateral Throughout] Respiratory Rate [Posterior Throughout] Blood Pressure 150/81 156/88 O2 Sat by Pulse 100 100 Oximetry 02/15/19 02/15/19 02/16/19 23:30 23:41 00:00 Temperature Pulse Rate 83 86 86 Pulse Rate [ Anterior Bilateral Throughout] Pulse Rate [ 86 From Monitor] Pulse Rate [ Posterior Throughout] Pulse Rate [ 86 Right Radial] Respiratory 22 24 Rate Respiratory Rate [Anterior Bilateral Throughout] Respiratory Rate [Posterior Throughout] Blood Pressure 157/91 157/91 151/89 O2 Sat by Pulse 100 99 100 Oximetry 02/16/19 02/16/19 02/16/19 00:09 00:30 01:00 Temperature Pulse Rate 85 89 82 Pulse Rate [ Anterior Bilateral Throughout] Pulse Rate [ From Monitor] Pulse Rate [ Posterior Throughout] Pulse Rate [ Right Radial] Respiratory 23 22 Rate Respiratory Rate [Anterior Bilateral Throughout] Respiratory Rate [Posterior Throughout] Blood Pressure 151/89 147/85 137/83 O2 Sat by Pulse 99 100 Oximetry 02/16/19 02/16/19 02/16/19 01:30 01:55 02:01 Temperature Pulse Rate 81 86 Pulse Rate [ 85 Anterior Bilateral Throughout] Pulse Rate [ From Monitor] Pulse Rate [ 85 Posterior Throughout] Pulse Rate [ Right Radial] Respiratory 22 23 Rate Respiratory 20 Rate [Anterior Bilateral Throughout] Respiratory 22 Rate [Posterior Throughout] Blood Pressure 141/85 140/83 O2 Sat by Pulse 100 100 Oximetry 02/16/19 02/16/19 02/16/19 02:31 03:00 03:28 Temperature 98.6 F Pulse Rate 83 78 Pulse Rate [ Anterior Bilateral Throughout] Pulse Rate [ From Monitor] Pulse Rate [ Posterior Throughout] Pulse Rate [ Right Radial] Respiratory 20 20 Rate Respiratory Rate [Anterior Bilateral Throughout] Respiratory Rate [Posterior Throughout] Blood Pressure 147/79 150/78 O2 Sat by Pulse 100 100 Oximetry 02/16/19 02/16/19 02/16/19 03:30 04:00 04:31 Temperature Pulse Rate 83 84 83 Pulse Rate [ Anterior Bilateral Throughout] Pulse Rate [ 84 From Monitor] Pulse Rate [ Posterior Throughout] Pulse Rate [ 84 Right Radial] Respiratory 19 20 20 Rate Respiratory Rate [Anterior Bilateral Throughout] Respiratory Rate [Posterior Throughout] Blood Pressure 147/88 160/85 145/85 O2 Sat by Pulse 100 100 100 Oximetry 02/16/19 02/16/19 02/16/19 04:40 05:00 05:30 Temperature Pulse Rate 78 84 86 Pulse Rate [ Anterior Bilateral Throughout] Pulse Rate [ From Monitor] Pulse Rate [ Posterior Throughout] Pulse Rate [ Right Radial] Respiratory 19 20 Rate Respiratory Rate [Anterior Bilateral Throughout] Respiratory Rate [Posterior Throughout] Blood Pressure 145/85 154/86 164/95 O2 Sat by Pulse 100 100 100 Oximetry 02/16/19 02/16/19 07:03 07:10 Temperature Pulse Rate 65 64 Pulse Rate [ 70 Anterior Bilateral Throughout] Pulse Rate [ From Monitor] Pulse Rate [ Posterior Throughout] Pulse Rate [ Right Radial] Respiratory Rate Respiratory 16 Rate [Anterior Bilateral Throughout] Respiratory Rate [Posterior Throughout] Blood Pressure 126/78 126/78 O2 Sat by Pulse 100 Oximetry - Labs CBC & Chem 7: 02/16/19 04:58 02/16/19 04:58 Labs: Abnormal lab results 02/15/19 02/15/19 02/15/19 Range/Units 05:33 12:30 18:17 RDW (13.2-15.2) % Seg Neuts % (Manual) 95.0 H (40.0-70.0) % Lymphocytes % (Manual) 1.0 L (13.4-35.0) % Seg Neutrophils # Man 7.9 H (1.8-7.7) K/mm3 Lymphocytes # (Manual) 0.1 L (1.2-5.4) K/mm3 Chloride (98-107) mmol/L BUN (7-17) mg/dL Glucose (65-100) mg/dL POC Glucose 168 H 161 H (70-105) Calcium (8.4-10.2) mg/dL AST (5-40) units/L Alkaline Phosphatase (35-129) units/L Albumin (3.9-5) g/dL 02/15/19 02/16/19 02/16/19 Range/Units 23:53 04:58 04:58 RDW 15.7 H (13.2-15.2) % Seg Neuts % (Manual) 93.0 H (40.0-70.0) % Lymphocytes % (Manual) 5.0 L (13.4-35.0) % Seg Neutrophils # Man (1.8-7.7) K/mm3 Lymphocytes # (Manual) 0.4 L (1.2-5.4) K/mm3 Chloride 108.3 H (98-107) mmol/L BUN 90 H (7-17) mg/dL Glucose 126 H (65-100) mg/dL POC Glucose 160 H (70-105) Calcium 8.1 L (8.4-10.2) mg/dL AST 52 H (5-40) units/L Alkaline Phosphatase 188 H (35-129) units/L Albumin 2.0 L (3.9-5) g/dL
[2019-02-16] MEDS: LEVOTHYROXINE 125 MCG TAB PO SCH (09:52)
[2019-02-16] MEDS: MULTIVITAMINS 5 ML ORAL LIQUID PO SCH (09:52)
[2019-02-16] MEDS: FAMOTIDINE 20 MG TAB PO SCH ×2 (09:53→21:47)
[2019-02-16] MEDS: FOLIC ACID 1 MG TAB PO SCH (09:53)
[2019-02-16] MEDS: dexAMETHasone 4 MG/ML VIAL IV SCH ×2 (09:53→21:46)
--- NOTE | 2019-02-16 11:10 | Progress Note ---
Assessment and Plan 53 y/o female with strep pneumonae bacteremia, meningitis and now stroke with acute respiratory failure and continued azotemia. 1. Neuro/Rheum: Patient had a positive CHESTER titer. 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 At this point, in regards to her mental state, I'm not sure if the steroids improved her or she woke up after treatment for the infection. At this point, impossible to tell but I do feel she is going to need steroids for an extended period of time given her positive CHESTER. This will need to be worked up in the future. As stated in previous note, will continue IV steroids through the weekend and will likely switch over to PO prednisone starting Tuesday. 2. MSK: Continue PT as patient's mental status has improved and she is very weak. 3. Renal: Stopped D5W. Cr has improved, BUN still elevated but no evidence of acute bleeding. Could be related to steroids. Starting to decrease those now. 4. CV-Follow up cards recs if any new ones. 5. Family and patient have agreed to trach and peg placement. Spoke with surgery this am and secondary to scheduling will not be able to perform this until Tuesday of next week. 6. Overall prognosis remains guarded, however good that patient is awake. Total critical care time 31 minutes Subjective Date of service: 02/16/19 Principal diagnosis: h/o low plt Interval history: No acute events. current clinical status is stable. Awaiting trach and peg and then placement. Objective Vital Signs - 12hr 02/15/19 02/15/19 02/15/19 23:13 23:30 23:41 Temperature 99.4 F Pulse Rate 83 86 Pulse Rate [ Anterior Bilateral Throughout] Pulse Rate [ From Monitor] Pulse Rate [ Posterior Throughout] Pulse Rate [ Right Radial] Respiratory 22 Rate Respiratory Rate [Anterior Bilateral Throughout] Respiratory Rate [Posterior Throughout] Blood Pressure 157/91 157/91 O2 Sat by Pulse 100 99 Oximetry 02/16/19 02/16/19 02/16/19 00:00 00:09 00:30 Temperature Pulse Rate 86 85 89 Pulse Rate [ Anterior Bilateral Throughout] Pulse Rate [ 86 From Monitor] Pulse Rate [ Posterior Throughout] Pulse Rate [ 86 Right Radial] Respiratory 24 23 Rate Respiratory Rate [Anterior Bilateral Throughout] Respiratory Rate [Posterior Throughout] Blood Pressure 151/89 151/89 147/85 O2 Sat by Pulse 100 99 Oximetry 02/16/19 02/16/19 02/16/19 01:00 01:30 01:55 Temperature Pulse Rate 82 81 Pulse Rate [ 85 Anterior Bilateral Throughout] Pulse Rate [ From Monitor] Pulse Rate [ 85 Posterior Throughout] Pulse Rate [ Right Radial] Respiratory 22 22 Rate Respiratory 20 Rate [Anterior Bilateral Throughout] Respiratory 22 Rate [Posterior Throughout] Blood Pressure 137/83 141/85 O2 Sat by Pulse 100 100 Oximetry 02/16/19 02/16/19 02/16/19 02:01 02:31 03:00 Temperature Pulse Rate 86 83 78 Pulse Rate [ Anterior Bilateral Throughout] Pulse Rate [ From Monitor] Pulse Rate [ Posterior Throughout] Pulse Rate [ Right Radial] Respiratory 23 20 20 Rate Respiratory Rate [Anterior Bilateral Throughout] Respiratory Rate [Posterior Throughout] Blood Pressure 140/83 147/79 150/78 O2 Sat by Pulse 100 100 100 Oximetry 02/16/19 02/16/19 02/16/19 03:28 03:30 04:00 Temperature 98.6 F Pulse Rate 83 84 Pulse Rate [ Anterior Bilateral Throughout] Pulse Rate [ 84 From Monitor] Pulse Rate [ Posterior Throughout] Pulse Rate [ 84 Right Radial] Respiratory 19 20 Rate Respiratory Rate [Anterior Bilateral Throughout] Respiratory Rate [Posterior Throughout] Blood Pressure 147/88 160/85 O2 Sat by Pulse 100 100 Oximetry 02/16/19 02/16/19 02/16/19 04:31 04:40 05:00 Temperature Pulse Rate 83 78 84 Pulse Rate [ Anterior Bilateral Throughout] Pulse Rate [ From Monitor] Pulse Rate [ Posterior Throughout] Pulse Rate [ Right Radial] Respiratory 20 19 Rate Respiratory Rate [Anterior Bilateral Throughout] Respiratory Rate [Posterior Throughout] Blood Pressure 145/85 145/85 154/86 O2 Sat by Pulse 100 100 100 Oximetry 02/16/19 02/16/19 02/16/19 05:30 06:00 06:30 Temperature Pulse Rate 86 76 72 Pulse Rate [ Anterior Bilateral Throughout] Pulse Rate [ From Monitor] Pulse Rate [ Posterior Throughout] Pulse Rate [ Right Radial] Respiratory 20 19 16 Rate Respiratory Rate [Anterior Bilateral Throughout] Respiratory Rate [Posterior Throughout] Blood Pressure 164/95 159/90 133/79 O2 Sat by Pulse 100 100 100 Oximetry 02/16/19 02/16/19 02/16/19 07:00 07:03 07:10 Temperature Pulse Rate 66 65 64 Pulse Rate [ 70 Anterior Bilateral Throughout] Pulse Rate [ From Monitor] Pulse Rate [ Posterior Throughout] Pulse Rate [ Right Radial] Respiratory 16 Rate Respiratory 16 Rate [Anterior Bilateral Throughout] Respiratory Rate [Posterior Throughout] Blood Pressure 126/78 126/78 126/78 O2 Sat by Pulse 100 100 Oximetry 02/16/19 02/16/19 02/16/19 07:31 08:00 08:30 Temperature 98.2 F Pulse Rate 67 72 83 Pulse Rate [ Anterior Bilateral Throughout] Pulse Rate [ 76 From Monitor] Pulse Rate [ Posterior Throughout] Pulse Rate [ 76 Right Radial] Respiratory 14 17 19 Rate Respiratory Rate [Anterior Bilateral Throughout] Respiratory Rate [Posterior Throughout] Blood Pressure 139/74 148/80 142/89 O2 Sat by Pulse 100 100 100 Oximetry 02/16/19 02/16/19 02/16/19 09:00 09:30 09:50 Temperature Pulse Rate 79 72 83 Pulse Rate [ Anterior Bilateral Throughout] Pulse Rate [ From Monitor] Pulse Rate [ Posterior Throughout] Pulse Rate [ Right Radial] Respiratory 19 18 15 Rate Respiratory Rate [Anterior Bilateral Throughout] Respiratory Rate [Posterior Throughout] Blood Pressure 149/90 143/83 153/90 O2 Sat by Pulse 100 100 100 Oximetry 02/16/19 10:00 Temperature Pulse Rate 84 Pulse Rate [ Anterior Bilateral Throughout] Pulse Rate [ From Monitor] Pulse Rate [ Posterior Throughout] Pulse Rate [ Right Radial] Respiratory 13 Rate Respiratory Rate [Anterior Bilateral Throughout] Respiratory Rate [Posterior Throughout] Blood Pressure 153/90 O2 Sat by Pulse 100 Oximetry Constitutional: other (orally intubated on mechanical ventilator. Not on sedation, awake, critically ill) Eyes: non-icteric ENT: oropharynx moist Neck: supple Effort: normal Ascultation: Bilateral: other (coarse BS bilaterally) Cardiovascular: other (tachy, RR; no mrg) Gastrointestinal: normoactive bowel sounds, soft, non-tender, non-distended Integumentary: normal Extremities: no cyanosis, no edema, pink and warm Neurologic: other (eyes open, not following commands or moving extremities) Psychiatric: other (unable to assess) CBC and BMP: 02/16/19 04:58 02/16/19 04:58 ABG, PT/INR, D-dimer: ABG POC ABG pH 7.418 (7.35-7.45) 02/12/19 05:36 ABG pH 7.440 pH Units (7.350-7.450) 02/11/19 04:10 POC ABG pCO2 36.9 (35-45) 02/12/19 05:36 ABG pCO2 37.4 mm Hg 02/11/19 04:10 POC ABG pO2 92 (80-105) 02/12/19 05:36 ABG pO2 69.4 mm Hg (80.0-90.0) L 02/11/19 04:10 POC ABG HCO3 23.8 (22-26 mml/L) 02/12/19 05:36 POC ABG Total CO2 25 (23-27mmol/L) 02/12/19 05:36 POC ABG O2 Sat 97 02/12/19 05:36 ABG O2 Saturation 94.2 % (95.0-99.0) L 02/11/19 04:10 PT/INR, D-dimer PT 16.3 Sec. (12.2-14.9) H 02/06/19 07:35 INR 1.35 (0.87-1.13) H 02/06/19 07:35 Abnormal lab findings: Abnormal Labs 02/01/19 02/01/19 02/01/19 07:16 07:16 07:16 WBC 17.7 H RBC Hgb Hct RDW 16.9 H Plt Count 62 L Seg Neuts % (Manual) 95.0 H Lymphocytes % (Manual) 0 L Seg Neutrophils # Man 16.8 H Lymphocytes # (Manual) 0.0 L PT 15.0 H INR 1.21 H APTT Thrombin Time 20.0 H POC ABG pH ABG pH POC ABG pCO2 POC ABG pO2 ABG pO2 ABG HCO3 ABG O2 Saturation ABG Base Excess ABG Hemoglobin Oxyhemoglobin Sodium 135 L Potassium Chloride 97.7 L Carbon Dioxide 19 L BUN 51 H Creatinine 4.5 H Glucose 112 H POC Glucose Lactic Acid Calcium Magnesium Iron TIBC Direct Bilirubin AST Alkaline Phosphatase Troponin T 0.181 H* C-Reactive Protein Total Protein Albumin LDL Cholesterol Direct 34 L HDL Cholesterol 20 L Vitamin B12 Folate TSH Urine WBC (Auto) Urine Creatinine Urine Total Protein CHESTER Screen CHESTER Titer Complement C3 Complement C4 02/01/19 02/01/19 02/01/19 07:29 07:29 07:43 WBC RBC Hgb Hct RDW Plt Count Seg Neuts % (Manual) Lymphocytes % (Manual) Seg Neutrophils # Man Lymphocytes # (Manual) PT INR APTT Thrombin Time POC ABG pH ABG pH POC ABG pCO2 POC ABG pO2 ABG pO2 ABG HCO3 ABG O2 Saturation ABG Base Excess ABG Hemoglobin Oxyhemoglobin Sodium Potassium Chloride Carbon Dioxide BUN Creatinine Glucose POC Glucose Lactic Acid 4.80 H* Calcium Magnesium Iron TIBC Direct Bilirubin 0.7 H AST 42 H Alkaline Phosphatase Troponin T C-Reactive Protein Total Protein 8.9 H Albumin 2.3 L LDL Cholesterol Direct HDL Cholesterol Vitamin B12 Folate TSH 8.470 H Urine WBC (Auto) Urine Creatinine Urine Total Protein CHESTER Screen CHESTER Titer Complement C3 Complement C4 02/01/19 02/01/19 02/01/19 09:45 11:32 13:50 WBC RBC Hgb Hct RDW Plt Count Seg Neuts % (Manual) Lymphocytes % (Manual) Seg Neutrophils # Man Lymphocytes # (Manual) PT INR APTT Thrombin Time POC ABG pH 7.289 L ABG pH POC ABG pCO2 POC ABG pO2 355 H ABG pO2 ABG HCO3 ABG O2 Saturation ABG Base Excess ABG Hemoglobin Oxyhemoglobin Sodium Potassium Chloride Carbon Dioxide BUN Creatinine Glucose POC Glucose Lactic Acid 4.10 H* Calcium Magnesium Iron TIBC Direct Bilirubin AST Alkaline Phosphatase Troponin T C-Reactive Protein Total Protein Albumin LDL Cholesterol Direct HDL Cholesterol Vitamin B12 Folate TSH Urine WBC (Auto) 16.0 H Urine Creatinine Urine Total Protein CHESTER Screen CHESTER Titer Complement C3 Complement C4 02/01/19 02/01/19 02/01/19 15:15 16:20 16:51 WBC RBC Hgb Hct RDW Plt Count Seg Neuts % (Manual) Lymphocytes % (Manual) Seg Neutrophils # Man Lymphocytes # (Manual) PT INR APTT Thrombin Time POC ABG pH ABG pH POC ABG pCO2 POC ABG pO2 ABG pO2 ABG HCO3 ABG O2 Saturation ABG Base Excess ABG Hemoglobin Oxyhemoglobin Sodium Potassium Chloride Carbon Dioxide BUN Creatinine Glucose POC Glucose 115 H Lactic Acid 4.50 H* Calcium Magnesium Iron TIBC Direct Bilirubin AST Alkaline Phosphatase Troponin T C-Reactive Protein Total Protein Albumin LDL Cholesterol Direct HDL Cholesterol Vitamin B12 Folate TSH Urine WBC (Auto) Urine Creatinine Urine Total Protein CHESTER Screen CHESTER Titer Complement C3 36 L Complement C4 02/01/19 02/01/19 02/01/19 16:51 17:03 17:04 WBC RBC Hgb Hct RDW Plt Count Seg Neuts % (Manual) Lymphocytes % (Manual) Seg Neutrophils # Man Lymphocytes # (Manual) PT INR APTT Thrombin Time POC ABG pH ABG pH POC ABG pCO2 POC ABG pO2 ABG pO2 ABG HCO3 ABG O2 Saturation ABG Base Excess ABG Hemoglobin Oxyhemoglobin Sodium Potassium Chloride Carbon Dioxide BUN Creatinine Glucose POC Glucose Lactic Acid 2.80 H* Calcium Magnesium Iron TIBC Direct Bilirubin AST Alkaline Phosphatase Troponin T C-Reactive Protein 32.30 H Total Protein Albumin LDL Cholesterol Direct HDL Cholesterol Vitamin B12 Folate TSH Urine WBC (Auto) Urine Creatinine Urine Total Protein CHESTER Screen CHESTER Titer Complement C3 Complement C4 12 L 02/01/19 02/01/19 02/02/19 17:04 19:28 05:16 WBC RBC Hgb Hct RDW Plt Count Seg Neuts % (Manual) Lymphocytes % (Manual) Seg Neutrophils # Man Lymphocytes # (Manual) PT INR APTT Thrombin Time POC ABG pH ABG pH POC ABG pCO2 POC ABG pO2 148 H ABG pO2 ABG HCO3 ABG O2 Saturation ABG Base Excess ABG Hemoglobin Oxyhemoglobin Sodium Potassium Chloride 107.1 H Carbon Dioxide 18 L BUN 52 H Creatinine 3.1 H Glucose 120 H POC Glucose Lactic Acid Calcium 7.4 L Magnesium Iron TIBC Direct Bilirubin AST Alkaline Phosphatase Troponin T C-Reactive Protein Total Protein Albumin LDL Cholesterol Direct HDL Cholesterol Vitamin B12 Folate TSH Urine WBC (Auto) Urine Creatinine Urine Total Protein CHESTER Screen Positive H CHESTER Titer 1:320 H Complement C3 Complement C4 02/02/19 02/02/19 02/03/19 05:53 05:53 03:30 WBC 14.3 H RBC 5.16 H Hgb 14.9 H Hct 46.2 H D RDW 16.9 H 17.0 H Plt Count 43 L 18 L* Seg Neuts % (Manual) 93.0 H Lymphocytes % (Manual) 2.0 L Seg Neutrophils # Man 13.3 H Lymphocytes # (Manual) 0.3 L PT INR APTT Thrombin Time POC ABG pH ABG pH POC ABG pCO2 POC ABG pO2 ABG pO2 ABG HCO3 ABG O2 Saturation ABG Base Excess ABG Hemoglobin Oxyhemoglobin Sodium Potassium 5.1 H Chloride Carbon Dioxide 21 L BUN 57 H Creatinine 3.3 H Glucose 147 H POC Glucose Lactic Acid Calcium 7.5 L Magnesium Iron TIBC Direct Bilirubin AST 51 H Alkaline Phosphatase Troponin T C-Reactive Protein Total Protein Albumin 1.6 L LDL Cholesterol Direct HDL Cholesterol Vitamin B12 Folate TSH Urine WBC (Auto) Urine Creatinine Urine Total Protein CHESTER Screen CHESTER Titer Complement C3 Complement C4 02/03/19 02/03/19 02/03/19 03:30 05:55 14:42 WBC RBC Hgb Hct RDW Plt Count Seg Neuts % (Manual) Lymphocytes % (Manual) Seg Neutrophils # Man Lymphocytes # (Manual) PT INR APTT Thrombin Time POC ABG pH ABG pH POC ABG pCO2 POC ABG pO2 117 H ABG pO2 ABG HCO3 ABG O2 Saturation ABG Base Excess ABG Hemoglobin Oxyhemoglobin Sodium Potassium Chloride Carbon Dioxide BUN 65 H Creatinine 2.7 H Glucose 117 H POC Glucose Lactic Acid Calcium 7.2 L Magnesium Iron TIBC Direct Bilirubin AST Alkaline Phosphatase Troponin T C-Reactive Protein Total Protein Albumin LDL Cholesterol Direct HDL Cholesterol Vitamin B12 1468 H Folate TSH Urine WBC (Auto) Urine Creatinine Urine Total Protein CHESTER Screen CHESTER Titer Complement C3 Complement C4 02/03/19 02/03/19 02/03/19 14:42 14:42 14:42 WBC RBC 3.17 L Hgb 9.4 L D Hct 28.3 L D RDW 16.9 H Plt Count 18 L* Seg Neuts % (Manual) Lymphocytes % (Manual) Seg Neutrophils # Man Lymphocytes # (Manual) PT INR APTT Thrombin Time POC ABG pH ABG pH POC ABG pCO2 POC ABG pO2 ABG pO2 ABG HCO3 ABG O2 Saturation ABG Base Excess ABG Hemoglobin Oxyhemoglobin Sodium Potassium Chloride Carbon Dioxide BUN Creatinine Glucose POC Glucose Lactic Acid Calcium Magnesium Iron 11 L TIBC 88 L Direct Bilirubin AST Alkaline Phosphatase Troponin T C-Reactive Protein Total Protein Albumin LDL Cholesterol Direct HDL Cholesterol Vitamin B12 Folate 5.18 L TSH Urine WBC (Auto) Urine Creatinine Urine Total Protein CHESTER Screen CHESTER Titer Complement C3 Complement C4 02/03/19 02/03/19 02/04/19 14:42 14:42 03:35 WBC RBC 3.22 L Hgb 9.5 L Hct 28.5 L RDW 16.4 H Plt Count 18 L* Seg Neuts % (Manual) Lymphocytes % (Manual) Seg Neutrophils # Man Lymphocytes # (Manual) PT 15.8 H INR 1.29 H APTT 38.2 H Thrombin Time POC ABG pH ABG pH 7.470 H POC ABG pCO2 POC ABG pO2 ABG pO2 ABG HCO3 28.4 H ABG O2 Saturation ABG Base Excess 4.5 H ABG Hemoglobin 10.1 L Oxyhemoglobin 94.7 L Sodium Potassium Chloride Carbon Dioxide BUN Creatinine Glucose POC Glucose Lactic Acid Calcium Magnesium Iron TIBC Direct Bilirubin AST Alkaline Phosphatase Troponin T C-Reactive Protein Total Protein Albumin LDL Cholesterol Direct HDL Cholesterol Vitamin B12 Folate TSH Urine WBC (Auto) Urine Creatinine Urine Total Protein CHESTER Screen CHESTER Titer Complement C3 Complement C4 02/04/19 02/04/19 02/05/19 05:02 05:02 03:50 WBC RBC Hgb Hct RDW 16.5 H Plt Count 20 L Seg Neuts % (Manual) 94.0 H Lymphocytes % (Manual) 2.0 L Seg Neutrophils # Man 9.2 H Lymphocytes # (Manual) 0.2 L PT INR APTT Thrombin Time POC ABG pH ABG pH 7.485 H POC ABG pCO2 POC ABG pO2 ABG pO2 ABG HCO3 27.5 H ABG O2 Saturation ABG Base Excess 3.9 H ABG Hemoglobin 9.1 L Oxyhemoglobin 94.8 L Sodium Potassium Chloride Carbon Dioxide BUN 66 H Creatinine 1.7 H Glucose 127 H POC Glucose Lactic Acid Calcium 7.6 L Magnesium Iron TIBC Direct Bilirubin AST Alkaline Phosphatase Troponin T C-Reactive Protein Total Protein Albumin LDL Cholesterol Direct HDL Cholesterol Vitamin B12 Folate TSH Urine WBC (Auto) Urine Creatinine Urine Total Protein CHESTER Screen CHESTER Titer Complement C3 Complement C4 02/05/19 02/05/19 02/05/19 13:02 14:36 20:03 WBC 11.7 H RBC 3.48 L 3.24 L Hgb 10.0 L 9.4 L Hct 29.2 L RDW 16.3 H 16.3 H Plt Count 50 L D 71 L Seg Neuts % (Manual) 95.0 H 95.0 H Lymphocytes % (Manual) 0 L 2.0 L Seg Neutrophils # Man 11.1 H 10.2 H Lymphocytes # (Manual) 0.0 L 0.2 L PT INR APTT Thrombin Time POC ABG pH ABG pH POC ABG pCO2 POC ABG pO2 ABG pO2 ABG HCO3 ABG O2 Saturation ABG Base Excess ABG Hemoglobin Oxyhemoglobin Sodium Potassium Chloride Carbon Dioxide BUN 67 H Creatinine 1.5 H Glucose POC Glucose Lactic Acid Calcium 7.7 L Magnesium Iron TIBC Direct Bilirubin AST Alkaline Phosphatase Troponin T C-Reactive Protein Total Protein Albumin LDL Cholesterol Direct HDL Cholesterol Vitamin B12 Folate TSH Urine WBC (Auto) Urine Creatinine Urine Total Protein CHESTER Screen CHESTER Titer Complement C3 Complement C4 02/06/19 02/06/19 02/06/19 05:39 07:35 18:34 WBC RBC Hgb Hct RDW Plt Count Seg Neuts % (Manual) Lymphocytes % (Manual) Seg Neutrophils # Man Lymphocytes # (Manual) PT 16.3 H INR 1.35 H APTT Thrombin Time POC ABG pH ABG pH POC ABG pCO2 POC ABG pO2 ABG pO2 ABG HCO3 ABG O2 Saturation ABG Base Excess ABG Hemoglobin Oxyhemoglobin Sodium Potassium Chloride Carbon Dioxide BUN Creatinine Glucose POC Glucose 107 H 121 H Lactic Acid Calcium Magnesium Iron TIBC Direct Bilirubin AST Alkaline Phosphatase Troponin T C-Reactive Protein Total Protein Albumin LDL Cholesterol Direct HDL Cholesterol Vitamin B12 Folate TSH Urine WBC (Auto) Urine Creatinine Urine Total Protein CHESTER Screen CHESTER Titer Complement C3 Complement C4 02/06/19 02/07/19 02/07/19 Unknown 01:07 04:15 WBC RBC Hgb Hct RDW Plt Count Seg Neuts % (Manual) Lymphocytes % (Manual) Seg Neutrophils # Man Lymphocytes # (Manual) PT INR APTT Thrombin Time POC ABG pH ABG pH POC ABG pCO2 POC ABG pO2 ABG pO2 ABG HCO3 ABG O2 Saturation ABG Base Excess ABG Hemoglobin 5.0 L Oxyhemoglobin 94.9 L 94.8 L Sodium 146 H Potassium Chloride Carbon Dioxide BUN 85 H Creatinine 1.8 H Glucose 163 H POC Glucose Lactic Acid Calcium 8.3 L Magnesium Iron TIBC Direct Bilirubin AST Alkaline Phosphatase Troponin T C-Reactive Protein Total Protein Albumin LDL Cholesterol Direct HDL Cholesterol Vitamin B12 Folate TSH Urine WBC (Auto) Urine Creatinine Urine Total Protein CHESTER Screen CHESTER Titer Complement C3 Complement C4 02/07/19 02/07/19 02/08/19 08:22 10:58 04:40 WBC RBC Hgb Hct RDW 16.0 H Plt Count 84 L Seg Neuts % (Manual) 97.0 H Lymphocytes % (Manual) 0 L Seg Neutrophils # Man 9.5 H Lymphocytes # (Manual) 0.0 L PT INR APTT Thrombin Time POC ABG pH 7.477 H ABG pH 7.467 H POC ABG pCO2 34.8 L POC ABG pO2 118 H ABG pO2 ABG HCO3 ABG O2 Saturation ABG Base Excess ABG Hemoglobin 8.4 L Oxyhemoglobin Sodium Potassium Chloride Carbon Dioxide BUN Creatinine Glucose POC Glucose Lactic Acid Calcium Magnesium Iron TIBC Direct Bilirubin AST Alkaline Phosphatase Troponin T C-Reactive Protein Total Protein Albumin LDL Cholesterol Direct HDL Cholesterol Vitamin B12 Folate TSH Urine WBC (Auto) Urine Creatinine Urine Total Protein CHESTER Screen CHESTER Titer Complement C3 Complement C4 02/09/19 02/09/19 02/09/19 03:17 03:17 04:35 WBC 14.9 H RBC 3.32 L Hgb 9.6 L Hct RDW 15.9 H Plt Count 113 L Seg Neuts % (Manual) 96.0 H Lymphocytes % (Manual) 1.0 L Seg Neutrophils # Man 14.3 H Lymphocytes # (Manual) 0.1 L PT INR APTT Thrombin Time POC ABG pH ABG pH 7.478 H POC ABG pCO2 POC ABG pO2 ABG pO2 94.5 H ABG HCO3 ABG O2 Saturation ABG Base Excess ABG Hemoglobin 6.1 L Oxyhemoglobin Sodium 147 H Potassium Chloride 110.4 H Carbon Dioxide BUN 114 H Creatinine 2.2 H Glucose 270 H POC Glucose Lactic Acid Calcium 8.1 L Magnesium Iron TIBC Direct Bilirubin AST Alkaline Phosphatase Troponin T C-Reactive Protein Total Protein Albumin 1.6 L LDL Cholesterol Direct HDL Cholesterol Vitamin B12 Folate TSH Urine WBC (Auto) Urine Creatinine Urine Total Protein CHE[place] Screen CHESTER Titer Complement C3 Complement C4 02/09/19 02/09/19 02/10/19 13:35 18:54 05:13 WBC RBC Hgb Hct RDW Plt Count Seg Neuts % (Manual) Lymphocytes % (Manual) Seg Neutrophils # Man Lymphocytes # (Manual) PT INR APTT Thrombin Time POC ABG pH ABG pH 7.478 H POC ABG pCO2 POC ABG pO2 ABG pO2 ABG HCO3 ABG O2 Saturation ABG Base Excess ABG Hemoglobin 8.1 L Oxyhemoglobin 94.9 L Sodium Potassium Chloride Carbon Dioxide BUN Creatinine Glucose POC Glucose Lactic Acid Calcium Magnesium Iron TIBC Direct Bilirubin AST Alkaline Phosphatase Troponin T C-Reactive Protein Total Protein Albumin LDL Cholesterol Direct HDL Cholesterol Vitamin B12 Folate TSH Urine WBC (Auto) 10.0 H Urine Creatinine 92.9 H Urine Total Protein 116 H CHESTER Screen CHESTER Titer Complement C3 Complement C4 02/10/19 02/10/19 02/11/19 18:14 23:24 04:10 WBC RBC Hgb Hct RDW Plt Count Seg Neuts % (Manual) Lymphocytes % (Manual) Seg Neutrophils # Man Lymphocytes # (Manual) PT INR APTT Thrombin Time POC ABG pH ABG pH POC ABG pCO2 POC ABG pO2 ABG pO2 69.4 L ABG HCO3 ABG O2 Saturation 94.2 L ABG Base Excess ABG Hemoglobin 11.0 L Oxyhemoglobin 92.1 L Sodium Potassium Chloride Carbon Dioxide BUN Creatinine Glucose POC Glucose 453 H 403 H Lactic Acid Calcium Magnesium Iron TIBC Direct Bilirubin AST Alkaline Phosphatase Troponin T C-Reactive Protein Total Protein Albumin LDL Cholesterol Direct HDL Cholesterol Vitamin B12 Folate TSH Urine WBC (Auto) Urine Creatinine Urine Total Protein CHESTER Screen CHESTER Titer Complement C3 Complement C4 02/11/19 02/11/19 02/11/19 04:54 04:54 05:40 WBC 12.5 H RBC 3.18 L Hgb 9.4 L Hct 29.4 L RDW 16.6 H Plt Count Seg Neuts % (Manual) 94.0 H Lymphocytes % (Manual) 4.0 L Seg Neutrophils # Man 11.8 H Lymphocytes # (Manual) 0.5 L PT INR APTT Thrombin Time POC ABG pH ABG pH POC ABG pCO2 POC ABG pO2 ABG pO2 ABG HCO3 ABG O2 Saturation ABG Base Excess ABG Hemoglobin Oxyhemoglobin Sodium 151 H Potassium Chloride 112.6 H Carbon Dioxide BUN 127 H Creatinine 1.8 H Glucose 396 H POC Glucose 410 H Lactic Acid Calcium 8.3 L Magnesium Iron TIBC Direct Bilirubin AST Alkaline Phosphatase 132 H Troponin T C-Reactive Protein Total Protein Albumin 2.1 L LDL Cholesterol Direct HDL Cholesterol Vitamin B12 Folate TSH Urine WBC (Auto) Urine Creatinine Urine Total Protein CHE[place] Screen CHESTER Titer Complement C3 Complement C4 02/11/19 02/11/19 02/11/19 11:30 17:58 23:18 WBC RBC Hgb Hct RDW Plt Count Seg Neuts % (Manual) Lymphocytes % (Manual) Seg Neutrophils # Man Lymphocytes # (Manual) PT INR APTT Thrombin Time POC ABG pH ABG pH POC ABG pCO2 POC ABG pO2 ABG pO2 ABG HCO3 ABG O2 Saturation ABG Base Excess ABG Hemoglobin Oxyhemoglobin Sodium Potassium Chloride Carbon Dioxide BUN Creatinine Glucose POC Glucose 361 H 414 H 392 H Lactic Acid Calcium Magnesium Iron TIBC Direct Bilirubin AST Alkaline Phosphatase Troponin T C-Reactive Protein Total Protein Albumin LDL Cholesterol Direct HDL Cholesterol Vitamin B12 Folate TSH Urine WBC (Auto) Urine Creatinine Urine Total Protein CHESTER Screen CHESTER Titer Complement C3 Complement C4 02/12/19 02/12/19 02/12/19 05:32 05:36 05:36 WBC 11.9 H RBC 3.40 L Hgb 9.9 L Hct RDW 16.4 H Plt Count Seg Neuts % (Manual) 97.0 H Lymphocytes % (Manual) 2.0 L Seg Neutrophils # Man 11.5 H Lymphocytes # (Manual) 0.2 L PT INR APTT Thrombin Time POC ABG pH ABG pH POC ABG pCO2 POC ABG pO2 ABG pO2 ABG HCO3 ABG O2 Saturation ABG Base Excess ABG Hemoglobin Oxyhemoglobin Sodium 146 H Potassium 3.5 L Chloride 110.2 H Carbon Dioxide BUN 118 H Creatinine 1.4 H Glucose 382 H POC Glucose 361 H Lactic Acid Calcium 8.3 L Magnesium Iron TIBC Direct Bilirubin AST Alkaline Phosphatase 137 H Troponin T C-Reactive Protein Total Protein Albumin 2.0 L LDL Cholesterol Direct HDL Cholesterol Vitamin B12 Folate TSH Urine WBC (Auto) Urine Creatinine Urine Total Protein CHESTER Screen CHESTER Titer Complement C3 Complement C4 02/12/19 02/12/19 02/12/19 11:51 17:18 21:46 WBC RBC Hgb Hct RDW Plt Count Seg Neuts % (Manual) Lymphocytes % (Manual) Seg Neutrophils # Man Lymphocytes # (Manual) PT INR APTT Thrombin Time POC ABG pH ABG pH POC ABG pCO2 POC ABG pO2 ABG pO2 ABG HCO3 ABG O2 Saturation ABG Base Excess ABG Hemoglobin Oxyhemoglobin Sodium Potassium Chloride Carbon Dioxide BUN Creatinine Glucose POC Glucose 357 H 280 H 222 H Lactic Acid Calcium Magnesium Iron TIBC Direct Bilirubin AST Alkaline Phosphatase Troponin T C-Reactive Protein Total Protein Albumin LDL Cholesterol Direct HDL Cholesterol Vitamin B12 Folate TSH Urine WBC (Auto) Urine Creatinine Urine Total Protein CHESTER Screen CHESTER Titer Complement C3 Complement C4 02/12/19 02/13/19 02/13/19 23:58 03:41 03:41 WBC 11.6 H RBC 3.53 L Hgb Hct RDW 15.8 H Plt Count 98 L Seg Neuts % (Manual) 97.0 H Lymphocytes % (Manual) 2.0 L Seg Neutrophils # Man 11.3 H Lymphocytes # (Manual) 0.2 L PT INR APTT Thrombin Time POC ABG pH ABG pH POC ABG pCO2 POC ABG pO2 ABG pO2 ABG HCO3 ABG O2 Saturation ABG Base Excess ABG Hemoglobin Oxyhemoglobin Sodium Potassium 3.4 L Chloride 109.7 H Carbon Dioxide BUN 108 H Creatinine Glucose 182 H POC Glucose 208 H Lactic Acid Calcium Magnesium Iron TIBC Direct Bilirubin AST 45 H Alkaline Phosphatase 150 H Troponin T C-Reactive Protein Total Protein Albumin 1.8 L LDL Cholesterol Direct HDL Cholesterol Vitamin B12 Folate TSH Urine WBC (Auto) Urine Creatinine Urine Total Protein CHESTER Screen CHESTER Titer Complement C3 Complement C4 02/13/19 02/13/19 02/13/19 05:40 11:31 18:01 WBC RBC Hgb Hct RDW Plt Count Seg Neuts % (Manual) Lymphocytes % (Manual) Seg Neutrophils # Man Lymphocytes # (Manual) PT INR APTT Thrombin Time POC ABG pH ABG pH POC ABG pCO2 POC ABG pO2 ABG pO2 ABG HCO3 ABG O2 Saturation ABG Base Excess ABG Hemoglobin Oxyhemoglobin Sodium Potassium Chloride Carbon Dioxide BUN Creatinine Glucose POC Glucose 179 H 193 H 151 H Lactic Acid Calcium Magnesium Iron TIBC Direct Bilirubin AST Alkaline Phosphatase Troponin T C-Reactive Protein Total Protein Albumin LDL Cholesterol Direct HDL Cholesterol Vitamin B12 Folate TSH Urine WBC (Auto) Urine Creatinine Urine Total Protein CHESTER Screen CHESTER Titer Complement C3 Complement C4 02/13/19 02/14/19 02/14/19 23:47 04:03 04:03 WBC RBC Hgb Hct RDW 16.0 H Plt Count Seg Neuts % (Manual) 94.0 H Lymphocytes % (Manual) 2.0 L Seg Neutrophils # Man 8.9 H Lymphocytes # (Manual) 0.2 L PT INR APTT Thrombin Time POC ABG pH ABG pH POC ABG pCO2 POC ABG pO2 ABG pO2 ABG HCO3 ABG O2 Saturation ABG Base Excess ABG Hemoglobin Oxyhemoglobin Sodium Potassium 3.4 L Chloride 108.7 H Carbon Dioxide 21 L BUN 96 H Creatinine Glucose 129 H POC Glucose 144 H Lactic Acid Calcium 8.2 L Magnesium Iron TIBC Direct Bilirubin AST 65 H Alkaline Phosphatase 164 H Troponin T C-Reactive Protein Total Protein Albumin 1.7 L LDL Cholesterol Direct HDL Cholesterol Vitamin B12 Folate TSH Urine WBC (Auto) Urine Creatinine Urine Total Protein CHESTER Screen CHESTER Titer Complement C3 Complement C4 02/14/19 02/14/19 02/14/19 04:03 05:10 11:51 WBC RBC Hgb Hct RDW Plt Count Seg Neuts % (Manual) Lymphocytes % (Manual) Seg Neutrophils # Man Lymphocytes # (Manual) PT INR APTT Thrombin Time POC ABG pH ABG pH POC ABG pCO2 POC ABG pO2 ABG pO2 ABG HCO3 ABG O2 Saturation ABG Base Excess ABG Hemoglobin Oxyhemoglobin Sodium Potassium Chloride Carbon Dioxide BUN Creatinine Glucose POC Glucose 145 H 192 H Lactic Acid Calcium Magnesium 1.60 L Iron TIBC Direct Bilirubin AST Alkaline Phosphatase Troponin T C-Reactive Protein Total Protein Albumin LDL Cholesterol Direct HDL Cholesterol Vitamin B12 Folate TSH Urine WBC (Auto) Urine Creatinine Urine Total Protein CHESTER Screen CHESTER Titer Complement C3 Complement C4 02/14/19 02/14/19 02/15/19 17:42 23:33 05:33 WBC RBC Hgb Hct RDW 15.9 H Plt Count Seg Neuts % (Manual) 95.0 H Lymphocytes % (Manual) 1.0 L Seg Neutrophils # Man 7.9 H Lymphocytes # (Manual) 0.1 L PT INR APTT Thrombin Time POC ABG pH ABG pH POC ABG pCO2 POC ABG pO2 ABG pO2 ABG HCO3 ABG O2 Saturation ABG Base Excess ABG Hemoglobin Oxyhemoglobin Sodium Potassium Chloride Carbon Dioxide BUN Creatinine Glucose POC Glucose 229 H 204 H Lactic Acid Calcium Magnesium Iron TIBC Direct Bilirubin AST Alkaline Phosphatase Troponin T C-Reactive Protein Total Protein Albumin LDL Cholesterol Direct HDL Cholesterol Vitamin B12 Folate TSH Urine WBC (Auto) Urine Creatinine Urine Total Protein CHESTER Screen CHE[place] Titer Complement C3 Complement C4 02/15/19 02/15/19 02/15/19 05:33 05:41 12:30 WBC RBC Hgb Hct RDW Plt Count Seg Neuts % (Manual) Lymphocytes % (Manual) Seg Neutrophils # Man Lymphocytes # (Manual) PT INR APTT Thrombin Time POC ABG pH ABG pH POC ABG pCO2 POC ABG pO2 ABG pO2 ABG HCO3 ABG O2 Saturation ABG Base Excess ABG Hemoglobin Oxyhemoglobin Sodium Potassium Chloride 108.2 H Carbon Dioxide BUN 91 H Creatinine Glucose 197 H POC Glucose 209 H 168 H Lactic Acid Calcium 8.2 L Magnesium Iron TIBC Direct Bilirubin AST 61 H Alkaline Phosphatase 215 H Troponin T C-Reactive Protein Total Protein Albumin 1.9 L LDL Cholesterol Direct HDL Cholesterol Vitamin B12 Folate TSH Urine WBC (Auto) Urine Creatinine Urine Total Protein CHESTER Screen CHE[place] Titer Complement C3 Complement C4 02/15/19 02/15/19 02/16/19 18:17 23:53 04:58 WBC RBC Hgb Hct RDW 15.7 H Plt Count Seg Neuts % (Manual) 93.0 H Lymphocytes % (Manual) 5.0 L Seg Neutrophils # Man Lymphocytes # (Manual) 0.4 L PT INR APTT Thrombin Time POC ABG pH ABG pH POC ABG pCO2 POC ABG pO2 ABG pO2 ABG HCO3 ABG O2 Saturation ABG Base Excess ABG Hemoglobin Oxyhemoglobin Sodium Potassium Chloride Carbon Dioxide BUN Creatinine Glucose POC Glucose 161 H 160 H Lactic Acid Calcium Magnesium Iron TIBC Direct Bilirubin AST Alkaline Phosphatase Troponin T C-Reactive Protein Total Protein Albumin LDL Cholesterol Direct HDL Cholesterol Vitamin B12 Folate TSH Urine WBC (Auto) Urine Creatinine Urine Total Protein CHESTER Screen CHE[place] Titer Complement C3 Complement C4 02/16/19 04:58 WBC RBC Hgb Hct RDW Plt Count Seg Neuts % (Manual) Lymphocytes % (Manual) Seg Neutrophils # Man Lymphocytes # (Manual) PT INR APTT Thrombin Time POC ABG pH ABG pH POC ABG pCO2 POC ABG pO2 ABG pO2 ABG HCO3 ABG O2 Saturation ABG Base Excess ABG Hemoglobin Oxyhemoglobin Sodium Potassium Chloride 108.3 H Carbon Dioxide BUN 90 H Creatinine Glucose 126 H POC Glucose Lactic Acid Calcium 8.1 L Magnesium Iron TIBC Direct Bilirubin AST 52 H Alkaline Phosphatase 188 H Troponin T C-Reactive Protein Total Protein Albumin 2.0 L LDL Cholesterol Direct HDL Cholesterol Vitamin B12 Folate TSH Urine WBC (Auto) Urine Creatinine Urine Total Protein CHESTER Screen CHESTER Titer Complement C3 Complement C4
[2019-02-16] MEDS: INSULIN GLARGINE 100 UNITS/ML SUB-Q SCH (21:46)
[2019-02-17] MEDS: dilTIAZem 60 MG TAB PO SCH ×4 (01:34→18:00)
[2019-02-17] MEDS: INSULIN REGULAR, HUMAN 100 UNITS/1 ML SUB-Q SCH ×4 (01:34→18:00)
[2019-02-17] MEDS: IPRATROPIUM/ALBUTEROL SULFATE 3 ML AMPUL.NEB IH SCH ×4 (02:41→19:24)
[2019-02-17 05:42] LABS: Hematocrit 31.4 % (30.3-42.9); Hemoglobin 10.3 gm/dl (10.1-14.3); Mean Corpuscular HGB Conc 33 % (30-34); Mean Corpuscular Volume 90 fl (79-97); Platelet Count 247 K/mm3 (140-440); Red Blood Count 3.48 M/mm3 (3.65-5.03); Red Cell Distribution Width 15.8 % (13.2-15.2)
[2019-02-17 06:03] LABS: Alanine Aminotransferase 42 units/L (7-56); Albumin 1.9 g/dL (3.9-5); BUN/Creatinine Ratio 90; Blood Urea Nitrogen 90 mg/dL (7-17); Calcium 8.2 mg/dL (8.4-10.2); Hemolysis Index 43
[2019-02-17 07:30] LABS: Anisocytosis 1+; Band Neutrophils # (Manual) 0.2 K/mm3; Basophils % (Manual) 0 % (0.0-1.8); Eosinophils % (Manual) 0 % (0.0-4.3); Schistocytes Rare; Total Cells Counted 100
[2019-02-17 07:31] LABS: Ovalocytes Few; Target Cells Rare
[2019-02-17 07:32] LABS: Platelet Estimate Consistent w Auto
--- NOTE | 2019-02-17 08:00 | Progress Note ---
Assessment and Plan Cultures: 02/01/2019 blood culture: Strep pneumoniae in 4/4 bottles 02/01/2019 urine culture: no growth 02/01/2019 tracheal aspirate: Strep species 02/02/2019 blood culture: no growth 02/05/2019 CSF culture: no growth 02/10/2019 sputum Cx: Stenotrophomonas 02/01/2019 C3: 36 (low) 02/01/2019 C4: 12 (low) CHESTER positive 1:320 HIV: non reactive RPR: non reactive Hepatitis panel: non reactive Bartonella serology: negative A/P: 53-year-old female with hypothyroidism, hypertension, ?autoimmune disease. Admitted with: 1) Severe sepsis with Strep pneumoniae bacteremia, pneumonia and meningitis: resolved. TTE showed some ?pulmonic valve vegetation. TERRENCE was negative for vegetations per cardiology. CSF shows WBC 1250, RBC 30, PMN 30%, Glucose 38, Protein 140. 2) Right neck severe lymphadenopathy: CT neck was without contrast, hence limit ed eval of vasculature. Neck US revealed extensive R neck lymphadenopathy, no abscess. HIV, RPR negative. Bartonella serologies negative. On 02/07/2019, patient's mother showed me paperwork from patient's PCP, patient was seen on 01/30/2019 at PCP office for R neck lump, was given medrol dose kevin and ultrasound was ordered. Once creatinine improves, may need CT chest, abdomen pelvis with IV contrast to evaluate for other lymphadenopathy, although the lymphadenopathy may be from lupus. 3) Bilateral pneumonia: sputum culture also growing Strep, likely Strep pneumoniae. Repeat cultures with Stenotrophomonas. Likely a colonizer as her infectious status continues to improve. Frequent colonizer of tubes. 4) Acute renal failure: Nephrology following. Creatinine worse today. 5) ?Autoimmune disease: likely lupus. C3, C4 came back low. CHESTER positive 1:320. ANCA negative. 6) Thrombocytopenia: improved. Hematology following. Sepsis v/s autoimmune in etiology. 7) Acute encephalopathy: secondary to meningitis. MRI brain showed acute ischemic changes in the posterior distribution of the R MCA, right frontal and parietal deep white matter and left frontal deep white matter, additional foci of ischemic change in b/l cerebellar hemispheres. Recs: Monitor off antibiotics, S/p ceftriaxone total 14 days C3, C4 came back low. CHESTER positive 1:320 suggestive of lupus. ds-DNA pending. Rheum referral. Will sign off, please call us for questions Stacey Mccall MD Infectious Diseases Development Vice President [facility], [place], [facility] ([facility]) M [phone] O [phone] Subjective Date of service: 02/17/19 Principal diagnosis: h/o low plt Interval history: Remains on the vent, no fever, no acute changes overnight. Objective - Exam Narrative Exam: General appearance: sedated on the vent Eyes: anicteric sclerae, moist conjunctivae; no lid-lag; PERRLA HENT: Atraumatic; oropharynx limited ETT/OGT with T-feeds Lungs:paty coarse BS CV: RRR no murmur Abdomen: Soft, non-tender Extremities: no edema, no cyanosis Skin: No rash. Psych: no agitated - Constitutional Vitals: Vital Signs Temp Pulse Resp BP Pulse Ox 98.9 F 66 20 102/61 100 02/17/19 03:43 02/17/19 07:47 02/17/19 07:43 02/17/19 07:47 02/17/19 07:47 Temperature -Last 24 Hours Temperature 98.9 F Temperature 98.1 F Temperature 98.5 F Temperature 98 F Temperature 97.5 F Temperature 98.2 F - Labs CBC & Chem 7: 02/17/19 04:43 02/17/19 04:43 Labs: Abnormal lab results 02/16/19 02/16/19 02/16/19 Range/Units 12:27 17:08 21:52 RBC (3.65-5.03) M/mm3 RDW (13.2-15.2) % Seg Neuts % (Manual) (40.0-70.0) % Lymphocytes % (Manual) (13.4-35.0) % Lymphocytes # (Manual) (1.2-5.4) K/mm3 Chloride (98-107) mmol/L Carbon Dioxide (22-30) mmol/L BUN (7-17) mg/dL Glucose (65-100) mg/dL POC Glucose 125 H 180 H 177 H (70-105) Calcium (8.4-10.2) mg/dL AST (5-40) units/L Alkaline Phosphatase (35-129) units/L Total Protein (6.3-8.2) g/dL Albumin (3.9-5) g/dL 02/16/19 02/17/19 02/17/19 Range/Units 23:51 04:43 04:43 RBC 3.48 L (3.65-5.03) M/mm3 RDW 15.8 H (13.2-15.2) % Seg Neuts % (Manual) 87.0 H (40.0-70.0) % Lymphocytes % (Manual) 6.0 L (13.4-35.0) % Lymphocytes # (Manual) 0.5 L (1.2-5.4) K/mm3 Chloride 110.2 H (98-107) mmol/L Carbon Dioxide 21 L (22-30) mmol/L BUN 90 H (7-17) mg/dL Glucose 164 H (65-100) mg/dL POC Glucose 161 H (70-105) Calcium 8.2 L (8.4-10.2) mg/dL AST 59 H (5-40) units/L Alkaline Phosphatase 224 H (35-129) units/L Total Protein 6.2 L (6.3-8.2) g/dL Albumin 1.9 L (3.9-5) g/dL 02/17/19 Range/Units 05:05 RBC (3.65-5.03) M/mm3 RDW (13.2-15.2) % Seg Neuts % (Manual) (40.0-70.0) % Lymphocytes % (Manual) (13.4-35.0) % Lymphocytes # (Manual) (1.2-5.4) K/mm3 Chloride (98-107) mmol/L Carbon Dioxide (22-30) mmol/L BUN (7-17) mg/dL Glucose (65-100) mg/dL POC Glucose 166 H (70-105) Calcium (8.4-10.2) mg/dL AST (5-40) units/L Alkaline Phosphatase (35-129) units/L Total Protein (6.3-8.2) g/dL Albumin (3.9-5) g/dL
[2019-02-17] MEDS: dexAMETHasone 4 MG/ML VIAL IV SCH ×2 (10:00→22:05)
[2019-02-17] MEDS: FAMOTIDINE 20 MG TAB PO SCH ×2 (10:00→22:05)
[2019-02-17] MEDS: LEVOTHYROXINE 125 MCG TAB PO SCH (10:00)
[2019-02-17] MEDS: FOLIC ACID 1 MG TAB PO SCH (10:00)
[2019-02-17] MEDS: MULTIVITAMINS 5 ML ORAL LIQUID PO SCH (10:00)
--- NOTE | 2019-02-17 12:57 | Progress Note ---
Assessment and Plan 53 y/o female with strep pneumonae bacteremia, meningitis and now stroke with acute respiratory failure and continued azotemia. 1. Neuro/Rheum: Patient had a positive CHESTER titer. 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 At this point, in regards to her mental state, I'm not sure if the steroids improved her or she woke up after treatment for the infection. At this point, impossible to tell but I do feel she is going to need steroids for an extended period of time given her positive CHESTER. This will need to be worked up in the future. As stated in previous note, will continue IV steroids through the weekend and will likely switch over to PO prednisone starting Tuesday. 2. MSK: Continue PT as patient's mental status has improved and she is very weak. 3. Renal: Stopped D5W. Cr has improved, BUN still elevated but no evidence of acute bleeding. Could be related to steroids. Starting to decrease those now. 4. CV-Follow up cards recs if any new ones. 5. Family and patient have agreed to trach and peg placement. Spoke with surgery this am and secondary to scheduling will not be able to perform this until Tuesday of next week. 6. Overall prognosis remains guarded, however good that patient is awake. Total critical care time 31 minutes Subjective Date of service: 02/17/19 Principal diagnosis: h/o low plt Interval history: No acute events. Pulm and mental status unchanged. Another son at bedside. Per him, mother and oldest son went back to [place]. Objective Vital Signs - 12hr 02/17/19 02/17/19 02/17/19 01:00 01:30 01:34 Temperature Pulse Rate 95 H 89 85 Pulse Rate [ Anterior Bilateral Throughout] Pulse Rate [ From Monitor] Pulse Rate [ Posterior Throughout] Pulse Rate [ Right Radial] Respiratory 22 15 Rate Respiratory Rate [Anterior Bilateral Throughout] Respiratory Rate [Posterior Throughout] Blood Pressure 166/97 176/94 176/94 O2 Sat by Pulse 100 100 Oximetry 02/17/19 02/17/19 02/17/19 02:00 02:30 02:51 Temperature Pulse Rate 90 82 Pulse Rate [ 85 Anterior Bilateral Throughout] Pulse Rate [ From Monitor] Pulse Rate [ 79 Posterior Throughout] Pulse Rate [ Right Radial] Respiratory 23 22 Rate Respiratory 22 Rate [Anterior Bilateral Throughout] Respiratory 22 Rate [Posterior Throughout] Blood Pressure 149/88 157/84 O2 Sat by Pulse 100 100 Oximetry 02/17/19 02/17/19 02/17/19 03:00 03:04 03:30 Temperature Pulse Rate 81 79 90 Pulse Rate [ Anterior Bilateral Throughout] Pulse Rate [ From Monitor] Pulse Rate [ Posterior Throughout] Pulse Rate [ Right Radial] Respiratory 21 25 H Rate Respiratory Rate [Anterior Bilateral Throughout] Respiratory Rate [Posterior Throughout] Blood Pressure 162/89 162/89 166/93 O2 Sat by Pulse 100 100 100 Oximetry 02/17/19 02/17/19 02/17/19 03:43 04:00 04:30 Temperature 98.9 F Pulse Rate 82 80 Pulse Rate [ Anterior Bilateral Throughout] Pulse Rate [ 85 From Monitor] Pulse Rate [ Posterior Throughout] Pulse Rate [ 85 Right Radial] Respiratory 21 22 Rate Respiratory Rate [Anterior Bilateral Throughout] Respiratory Rate [Posterior Throughout] Blood Pressure 150/90 156/87 O2 Sat by Pulse 100 100 Oximetry 02/17/19 02/17/19 02/17/19 05:00 05:30 05:50 Temperature Pulse Rate 75 87 88 Pulse Rate [ Anterior Bilateral Throughout] Pulse Rate [ From Monitor] Pulse Rate [ Posterior Throughout] Pulse Rate [ Right Radial] Respiratory 20 22 Rate Respiratory Rate [Anterior Bilateral Throughout] Respiratory Rate [Posterior Throughout] Blood Pressure 156/81 159/96 159/96 O2 Sat by Pulse 100 100 Oximetry 02/17/19 02/17/19 02/17/19 06:00 06:31 07:01 Temperature Pulse Rate 81 87 77 Pulse Rate [ Anterior Bilateral Throughout] Pulse Rate [ From Monitor] Pulse Rate [ Posterior Throughout] Pulse Rate [ Right Radial] Respiratory 21 25 H 16 Rate Respiratory Rate [Anterior Bilateral Throughout] Respiratory Rate [Posterior Throughout] Blood Pressure 158/95 158/95 118/69 O2 Sat by Pulse 100 99 98 Oximetry 02/17/19 02/17/19 02/17/19 07:30 07:43 07:47 Temperature Pulse Rate 65 66 Pulse Rate [ 86 Anterior Bilateral Throughout] Pulse Rate [ From Monitor] Pulse Rate [ 80 Posterior Throughout] Pulse Rate [ Right Radial] Respiratory 16 Rate Respiratory 20 Rate [Anterior Bilateral Throughout] Respiratory 24 Rate [Posterior Throughout] Blood Pressure 102/61 102/61 O2 Sat by Pulse 99 100 Oximetry 02/17/19 02/17/19 02/17/19 08:00 08:30 09:00 Temperature Pulse Rate 73 63 65 Pulse Rate [ Anterior Bilateral Throughout] Pulse Rate [ 63 From Monitor] Pulse Rate [ Posterior Throughout] Pulse Rate [ 63 Right Radial] Respiratory 20 17 17 Rate Respiratory Rate [Anterior Bilateral Throughout] Respiratory Rate [Posterior Throughout] Blood Pressure 133/72 109/62 116/60 O2 Sat by Pulse 98 100 100 Oximetry 02/17/19 02/17/19 02/17/19 09:30 10:00 10:31 Temperature Pulse Rate 70 63 80 Pulse Rate [ Anterior Bilateral Throughout] Pulse Rate [ From Monitor] Pulse Rate [ Posterior Throughout] Pulse Rate [ Right Radial] Respiratory 18 18 20 Rate Respiratory Rate [Anterior Bilateral Throughout] Respiratory Rate [Posterior Throughout] Blood Pressure 119/56 114/70 137/73 O2 Sat by Pulse 100 100 100 Oximetry 02/17/19 02/17/19 02/17/19 11:00 11:30 11:40 Temperature Pulse Rate 77 76 76 Pulse Rate [ Anterior Bilateral Throughout] Pulse Rate [ From Monitor] Pulse Rate [ Posterior Throughout] Pulse Rate [ Right Radial] Respiratory 24 20 Rate Respiratory Rate [Anterior Bilateral Throughout] Respiratory Rate [Posterior Throughout] Blood Pressure 122/72 119/67 119/67 O2 Sat by Pulse 100 100 100 Oximetry 02/17/19 02/17/19 12:00 12:30 Temperature 98.0 F Pulse Rate 75 77 Pulse Rate [ Anterior Bilateral Throughout] Pulse Rate [ 75 From Monitor] Pulse Rate [ Posterior Throughout] Pulse Rate [ 75 Right Radial] Respiratory 16 20 Rate Respiratory Rate [Anterior Bilateral Throughout] Respiratory Rate [Posterior Throughout] Blood Pressure 122/73 126/74 O2 Sat by Pulse 100 100 Oximetry Constitutional: other (orally intubated on mechanical ventilator. Not on sedation, awake, critically ill) Eyes: non-icteric ENT: oropharynx moist Neck: supple Effort: normal Ascultation: Bilateral: other (coarse BS bilaterally) Cardiovascular: other (tachy, RR; no mrg) Gastrointestinal: normoactive bowel sounds, soft, non-tender, non-distended Integumentary: normal Extremities: no cyanosis, no edema, pink and warm Neurologic: other (eyes open, not following commands or moving extremities) Psychiatric: other (unable to assess) CBC and BMP: 02/17/19 04:43 02/17/19 04:43 ABG, PT/INR, D-dimer: ABG POC ABG pH 7.418 (7.35-7.45) 02/12/19 05:36 ABG pH 7.440 pH Units (7.350-7.450) 02/11/19 04:10 POC ABG pCO2 36.9 (35-45) 02/12/19 05:36 ABG pCO2 37.4 mm Hg 02/11/19 04:10 POC ABG pO2 92 (80-105) 02/12/19 05:36 ABG pO2 69.4 mm Hg (80.0-90.0) L 02/11/19 04:10 POC ABG HCO3 23.8 (22-26 mml/L) 02/12/19 05:36 POC ABG Total CO2 25 (23-27mmol/L) 02/12/19 05:36 POC ABG O2 Sat 97 02/12/19 05:36 ABG O2 Saturation 94.2 % (95.0-99.0) L 02/11/19 04:10 PT/INR, D-dimer PT 16.3 Sec. (12.2-14.9) H 02/06/19 07:35 INR 1.35 (0.87-1.13) H 02/06/19 07:35 Abnormal lab findings: Abnormal Labs 02/01/19 02/01/19 02/01/19 07:16 07:16 07:16 WBC 17.7 H RBC Hgb Hct RDW 16.9 H Plt Count 62 L Seg Neuts % (Manual) 95.0 H Lymphocytes % (Manual) 0 L Seg Neutrophils # Man 16.8 H Lymphocytes # (Manual) 0.0 L PT 15.0 H INR 1.21 H APTT Thrombin Time 20.0 H POC ABG pH ABG pH POC ABG pCO2 POC ABG pO2 ABG pO2 ABG HCO3 ABG O2 Saturation ABG Base Excess ABG Hemoglobin Oxyhemoglobin Sodium 135 L Potassium Chloride 97.7 L Carbon Dioxide 19 L BUN 51 H Creatinine 4.5 H Glucose 112 H POC Glucose Lactic Acid Calcium Magnesium Iron TIBC Direct Bilirubin AST Alkaline Phosphatase Troponin T 0.181 H* C-Reactive Protein Total Protein Albumin LDL Cholesterol Direct 34 L HDL Cholesterol 20 L Vitamin B12 Folate TSH Urine WBC (Auto) Urine Creatinine Urine Total Protein CHESTER Screen CHESTER Titer Complement C3 Complement C4 08/15/19 08/15/19 08/15/19 07:29 07:29 07:43 WBC RBC Hgb Hct RDW Plt Count Seg Neuts % (Manual) Lymphocytes % (Manual) Seg Neutrophils # Man Lymphocytes # (Manual) PT INR APTT Thrombin Time POC ABG pH ABG pH POC ABG pCO2 POC ABG pO2 ABG pO2 ABG HCO3 ABG O2 Saturation ABG Base Excess ABG Hemoglobin Oxyhemoglobin Sodium Potassium Chloride Carbon Dioxide BUN Creatinine Glucose POC Glucose Lactic Acid 4.80 H* Calcium Magnesium Iron TIBC Direct Bilirubin 0.7 H AST 42 H Alkaline Phosphatase Troponin T C-Reactive Protein Total Protein 8.9 H Albumin 2.3 L LDL Cholesterol Direct HDL Cholesterol Vitamin B12 Folate TSH 8.470 H Urine WBC (Auto) Urine Creatinine Urine Total Protein CHESTER Screen CHESTER Titer Complement C3 Complement C4 02/01/19 02/01/19 02/01/19 09:45 11:32 13:50 WBC RBC Hgb Hct RDW Plt Count Seg Neuts % (Manual) Lymphocytes % (Manual) Seg Neutrophils # Man Lymphocytes # (Manual) PT INR APTT Thrombin Time POC ABG pH 7.289 L ABG pH POC ABG pCO2 POC ABG pO2 355 H ABG pO2 ABG HCO3 ABG O2 Saturation ABG Base Excess ABG Hemoglobin Oxyhemoglobin Sodium Potassium Chloride Carbon Dioxide BUN Creatinine Glucose POC Glucose Lactic Acid 4.10 H* Calcium Magnesium Iron TIBC Direct Bilirubin AST Alkaline Phosphatase Troponin T C-Reactive Protein Total Protein Albumin LDL Cholesterol Direct HDL Cholesterol Vitamin B12 Folate TSH Urine WBC (Auto) 16.0 H Urine Creatinine Urine Total Protein CHESTER Screen CHESTER Titer Complement C3 Complement C4 02/01/19 02/01/19 02/01/19 15:15 16:20 16:51 WBC RBC Hgb Hct RDW Plt Count Seg Neuts % (Manual) Lymphocytes % (Manual) Seg Neutrophils # Man Lymphocytes # (Manual) PT INR APTT Thrombin Time POC ABG pH ABG pH POC ABG pCO2 POC ABG pO2 ABG pO2 ABG HCO3 ABG O2 Saturation ABG Base Excess ABG Hemoglobin Oxyhemoglobin Sodium Potassium Chloride Carbon Dioxide BUN Creatinine Glucose POC Glucose 115 H Lactic Acid 4.50 H* Calcium Magnesium Iron TIBC Direct Bilirubin AST Alkaline Phosphatase Troponin T C-Reactive Protein Total Protein Albumin LDL Cholesterol Direct HDL Cholesterol Vitamin B12 Folate TSH Urine WBC (Auto) Urine Creatinine Urine Total Protein CHESTER Screen CHESTER Titer Complement C3 36 L Complement C4 02/01/19 02/01/19 02/01/19 16:51 17:03 17:04 WBC RBC Hgb Hct RDW Plt Count Seg Neuts % (Manual) Lymphocytes % (Manual) Seg Neutrophils # Man Lymphocytes # (Manual) PT INR APTT Thrombin Time POC ABG pH ABG pH POC ABG pCO2 POC ABG pO2 ABG pO2 ABG HCO3 ABG O2 Saturation ABG Base Excess ABG Hemoglobin Oxyhemoglobin Sodium Potassium Chloride Carbon Dioxide BUN Creatinine Glucose POC Glucose Lactic Acid 2.80 H* Calcium Magnesium Iron TIBC Direct Bilirubin AST Alkaline Phosphatase Troponin T C-Reactive Protein 32.30 H Total Protein Albumin LDL Cholesterol Direct HDL Cholesterol Vitamin B12 Folate TSH Urine WBC (Auto) Urine Creatinine Urine Total Protein CHESTER Screen CHESTER Titer Complement C3 Complement C4 12 L 02/01/19 02/01/19 02/02/19 17:04 19:28 05:16 WBC RBC Hgb Hct RDW Plt Count Seg Neuts % (Manual) Lymphocytes % (Manual) Seg Neutrophils # Man Lymphocytes # (Manual) PT INR APTT Thrombin Time POC ABG pH ABG pH POC ABG pCO2 POC ABG pO2 148 H ABG pO2 ABG HCO3 ABG O2 Saturation ABG Base Excess ABG Hemoglobin Oxyhemoglobin Sodium Potassium Chloride 107.1 H Carbon Dioxide 18 L BUN 52 H Creatinine 3.1 H Glucose 120 H POC Glucose Lactic Acid Calcium 7.4 L Magnesium Iron TIBC Direct Bilirubin AST Alkaline Phosphatase Troponin T C-Reactive Protein Total Protein Albumin LDL Cholesterol Direct HDL Cholesterol Vitamin B12 Folate TSH Urine WBC (Auto) Urine Creatinine Urine Total Protein CHESTER Screen Positive H CHESTER Titer 1:320 H Complement C3 Complement C4 02/02/19 02/02/19 02/03/19 05:53 05:53 03:30 WBC 14.3 H RBC 5.16 H Hgb 14.9 H Hct 46.2 H D RDW 16.9 H 17.0 H Plt Count 43 L 18 L* Seg Neuts % (Manual) 93.0 H Lymphocytes % (Manual) 2.0 L Seg Neutrophils # Man 13.3 H Lymphocytes # (Manual) 0.3 L PT INR APTT Thrombin Time POC ABG pH ABG pH POC ABG pCO2 POC ABG pO2 ABG pO2 ABG HCO3 ABG O2 Saturation ABG Base Excess ABG Hemoglobin Oxyhemoglobin Sodium Potassium 5.1 H Chloride Carbon Dioxide 21 L BUN 57 H Creatinine 3.3 H Glucose 147 H POC Glucose Lactic Acid Calcium 7.5 L Magnesium Iron TIBC Direct Bilirubin AST 51 H Alkaline Phosphatase Troponin T C-Reactive Protein Total Protein Albumin 1.6 L LDL Cholesterol Direct HDL Cholesterol Vitamin B12 Folate TSH Urine WBC (Auto) Urine Creatinine Urine Total Protein CHESTER Screen CHESTER Titer Complement C3 Complement C4 02/03/19 02/03/19 02/03/19 03:30 05:55 14:42 WBC RBC Hgb Hct RDW Plt Count Seg Neuts % (Manual) Lymphocytes % (Manual) Seg Neutrophils # Man Lymphocytes # (Manual) PT INR APTT Thrombin Time POC ABG pH ABG pH POC ABG pCO2 POC ABG pO2 117 H ABG pO2 ABG HCO3 ABG O2 Saturation ABG Base Excess ABG Hemoglobin Oxyhemoglobin Sodium Potassium Chloride Carbon Dioxide BUN 65 H Creatinine 2.7 H Glucose 117 H POC Glucose Lactic Acid Calcium 7.2 L Magnesium Iron TIBC Direct Bilirubin AST Alkaline Phosphatase Troponin T C-Reactive Protein Total Protein Albumin LDL Cholesterol Direct HDL Cholesterol Vitamin B12 1468 H Folate TSH Urine WBC (Auto) Urine Creatinine Urine Total Protein CHESTER Screen CHESTER Titer Complement C3 Complement C4 02/03/19 02/03/19 02/03/19 14:42 14:42 14:42 WBC RBC 3.17 L Hgb 9.4 L D Hct 28.3 L D RDW 16.9 H Plt Count 18 L* Seg Neuts % (Manual) Lymphocytes % (Manual) Seg Neutrophils # Man Lymphocytes # (Manual) PT INR APTT Thrombin Time POC ABG pH ABG pH POC ABG pCO2 POC ABG pO2 ABG pO2 ABG HCO3 ABG O2 Saturation ABG Base Excess ABG Hemoglobin Oxyhemoglobin Sodium Potassium Chloride Carbon Dioxide BUN Creatinine Glucose POC Glucose Lactic Acid Calcium Magnesium Iron 11 L TIBC 88 L Direct Bilirubin AST Alkaline Phosphatase Troponin T C-Reactive Protein Total Protein Albumin LDL Cholesterol Direct HDL Cholesterol Vitamin B12 Folate 5.18 L TSH Urine WBC (Auto) Urine Creatinine Urine Total Protein CHESTER Screen CHESTER Titer Complement C3 Complement C4 02/03/19 02/03/19 02/04/19 14:42 14:42 03:35 WBC RBC 3.22 L Hgb 9.5 L Hct 28.5 L RDW 16.4 H Plt Count 18 L* Seg Neuts % (Manual) Lymphocytes % (Manual) Seg Neutrophils # Man Lymphocytes # (Manual) PT 15.8 H INR 1.29 H APTT 38.2 H Thrombin Time POC ABG pH ABG pH 7.470 H POC ABG pCO2 POC ABG pO2 ABG pO2 ABG HCO3 28.4 H ABG O2 Saturation ABG Base Excess 4.5 H ABG Hemoglobin 10.1 L Oxyhemoglobin 94.7 L Sodium Potassium Chloride Carbon Dioxide BUN Creatinine Glucose POC Glucose Lactic Acid Calcium Magnesium Iron TIBC Direct Bilirubin AST Alkaline Phosphatase Troponin T C-Reactive Protein Total Protein Albumin LDL Cholesterol Direct HDL Cholesterol Vitamin B12 Folate TSH Urine WBC (Auto) Urine Creatinine Urine Total Protein CHESTER Screen CHESTER Titer Complement C3 Complement C4 02/04/19 02/04/19 02/05/19 05:02 05:02 03:50 WBC RBC Hgb Hct RDW 16.5 H Plt Count 20 L Seg Neuts % (Manual) 94.0 H Lymphocytes % (Manual) 2.0 L Seg Neutrophils # Man 9.2 H Lymphocytes # (Manual) 0.2 L PT INR APTT Thrombin Time POC ABG pH ABG pH 7.485 H POC ABG pCO2 POC ABG pO2 ABG pO2 ABG HCO3 27.5 H ABG O2 Saturation ABG Base Excess 3.9 H ABG Hemoglobin 9.1 L Oxyhemoglobin 94.8 L Sodium Potassium Chloride Carbon Dioxide BUN 66 H Creatinine 1.7 H Glucose 127 H POC Glucose Lactic Acid Calcium 7.6 L Magnesium Iron TIBC Direct Bilirubin AST Alkaline Phosphatase Troponin T C-Reactive Protein Total Protein Albumin LDL Cholesterol Direct HDL Cholesterol Vitamin B12 Folate TSH Urine WBC (Auto) Urine Creatinine Urine Total Protein CHESTER Screen CHESTER Titer Complement C3 Complement C4 02/05/19 02/05/19 02/05/19 13:02 14:36 20:03 WBC 11.7 H RBC 3.48 L 3.24 L Hgb 10.0 L 9.4 L Hct 29.2 L RDW 16.3 H 16.3 H Plt Count 50 L D 71 L Seg Neuts % (Manual) 95.0 H 95.0 H Lymphocytes % (Manual) 0 L 2.0 L Seg Neutrophils # Man 11.1 H 10.2 H Lymphocytes # (Manual) 0.0 L 0.2 L PT INR APTT Thrombin Time POC ABG pH ABG pH POC ABG pCO2 POC ABG pO2 ABG pO2 ABG HCO3 ABG O2 Saturation ABG Base Excess ABG Hemoglobin Oxyhemoglobin Sodium Potassium Chloride Carbon Dioxide BUN 67 H Creatinine 1.5 H Glucose POC Glucose Lactic Acid Calcium 7.7 L Magnesium Iron TIBC Direct Bilirubin AST Alkaline Phosphatase Troponin T C-Reactive Protein Total Protein Albumin LDL Cholesterol Direct HDL Cholesterol Vitamin B12 Folate TSH Urine WBC (Auto) Urine Creatinine Urine Total Protein CHESTER Screen CHESTER Titer Complement C3 Complement C4 02/06/19 02/06/19 02/06/19 05:39 07:35 18:34 WBC RBC Hgb Hct RDW Plt Count Seg Neuts % (Manual) Lymphocytes % (Manual) Seg Neutrophils # Man Lymphocytes # (Manual) PT 16.3 H INR 1.35 H APTT Thrombin Time POC ABG pH ABG pH POC ABG pCO2 POC ABG pO2 ABG pO2 ABG HCO3 ABG O2 Saturation ABG Base Excess ABG Hemoglobin Oxyhemoglobin Sodium Potassium Chloride Carbon Dioxide BUN Creatinine Glucose POC Glucose 107 H 121 H Lactic Acid Calcium Magnesium Iron TIBC Direct Bilirubin AST Alkaline Phosphatase Troponin T C-Reactive Protein Total Protein Albumin LDL Cholesterol Direct HDL Cholesterol Vitamin B12 Folate TSH Urine WBC (Auto) Urine Creatinine Urine Total Protein CHESTER Screen CHESTER Titer Complement C3 Complement C4 02/06/19 02/07/19 02/07/19 Unknown 01:07 04:15 WBC RBC Hgb Hct RDW Plt Count Seg Neuts % (Manual) Lymphocytes % (Manual) Seg Neutrophils # Man Lymphocytes # (Manual) PT INR APTT Thrombin Time POC ABG pH ABG pH POC ABG pCO2 POC ABG pO2 ABG pO2 ABG HCO3 ABG O2 Saturation ABG Base Excess ABG Hemoglobin 5.0 L Oxyhemoglobin 94.9 L 94.8 L Sodium 146 H Potassium Chloride Carbon Dioxide BUN 85 H Creatinine 1.8 H Glucose 163 H POC Glucose Lactic Acid Calcium 8.3 L Magnesium Iron TIBC Direct Bilirubin AST Alkaline Phosphatase Troponin T C-Reactive Protein Total Protein Albumin LDL Cholesterol Direct HDL Cholesterol Vitamin B12 Folate TSH Urine WBC (Auto) Urine Creatinine Urine Total Protein CHESTER Screen CHESTER Titer Complement C3 Complement C4 02/07/19 02/07/19 02/08/19 08:22 10:58 04:40 WBC RBC Hgb Hct RDW 16.0 H Plt Count 84 L Seg Neuts % (Manual) 97.0 H Lymphocytes % (Manual) 0 L Seg Neutrophils # Man 9.5 H Lymphocytes # (Manual) 0.0 L PT INR APTT Thrombin Time POC ABG pH 7.477 H ABG pH 7.467 H POC ABG pCO2 34.8 L POC ABG pO2 118 H ABG pO2 ABG HCO3 ABG O2 Saturation ABG Base Excess ABG Hemoglobin 8.4 L Oxyhemoglobin Sodium Potassium Chloride Carbon Dioxide BUN Creatinine Glucose POC Glucose Lactic Acid Calcium Magnesium Iron TIBC Direct Bilirubin AST Alkaline Phosphatase Troponin T C-Reactive Protein Total Protein Albumin LDL Cholesterol Direct HDL Cholesterol Vitamin B12 Folate TSH Urine WBC (Auto) Urine Creatinine Urine Total Protein CHESTER Screen CHESTER Titer Complement C3 Complement C4 02/09/19 02/09/19 02/09/19 03:17 03:17 04:35 WBC 14.9 H RBC 3.32 L Hgb 9.6 L Hct RDW 15.9 H Plt Count 113 L Seg Neuts % (Manual) 96.0 H Lymphocytes % (Manual) 1.0 L Seg Neutrophils # Man 14.3 H Lymphocytes # (Manual) 0.1 L PT INR APTT Thrombin Time POC ABG pH ABG pH 7.478 H POC ABG pCO2 POC ABG pO2 ABG pO2 94.5 H ABG HCO3 ABG O2 Saturation ABG Base Excess ABG Hemoglobin 6.1 L Oxyhemoglobin Sodium 147 H Potassium Chloride 110.4 H Carbon Dioxide BUN 114 H Creatinine 2.2 H Glucose 270 H POC Glucose Lactic Acid Calcium 8.1 L Magnesium Iron TIBC Direct Bilirubin AST Alkaline Phosphatase Troponin T C-Reactive Protein Total Protein Albumin 1.6 L LDL Cholesterol Direct HDL Cholesterol Vitamin B12 Folate TSH Urine WBC (Auto) Urine Creatinine Urine Total Protein CHESTER Screen CHESTER Titer Complement C3 Complement C4 02/09/19 02/09/19 02/10/19 13:35 18:54 05:13 WBC RBC Hgb Hct RDW Plt Count Seg Neuts % (Manual) Lymphocytes % (Manual) Seg Neutrophils # Man Lymphocytes # (Manual) PT INR APTT Thrombin Time POC ABG pH ABG pH 7.478 H POC ABG pCO2 POC ABG pO2 ABG pO2 ABG HCO3 ABG O2 Saturation ABG Base Excess ABG Hemoglobin 8.1 L Oxyhemoglobin 94.9 L Sodium Potassium Chloride Carbon Dioxide BUN Creatinine Glucose POC Glucose Lactic Acid Calcium Magnesium Iron TIBC Direct Bilirubin AST Alkaline Phosphatase Troponin T C-Reactive Protein Total Protein Albumin LDL Cholesterol Direct HDL Cholesterol Vitamin B12 Folate TSH Urine WBC (Auto) 10.0 H Urine Creatinine 92.9 H Urine Total Protein 116 H CHESTER Screen CHESTER Titer Complement C3 Complement C4 02/10/19 02/10/19 02/11/19 18:14 23:24 04:10 WBC RBC Hgb Hct RDW Plt Count Seg Neuts % (Manual) Lymphocytes % (Manual) Seg Neutrophils # Man Lymphocytes # (Manual) PT INR APTT Thrombin Time POC ABG pH ABG pH POC ABG pCO2 POC ABG pO2 ABG pO2 69.4 L ABG HCO3 ABG O2 Saturation 94.2 L ABG Base Excess ABG Hemoglobin 11.0 L Oxyhemoglobin 92.1 L Sodium Potassium Chloride Carbon Dioxide BUN Creatinine Glucose POC Glucose 453 H 403 H Lactic Acid Calcium Magnesium Iron TIBC Direct Bilirubin AST Alkaline Phosphatase Troponin T C-Reactive Protein Total Protein Albumin LDL Cholesterol Direct HDL Cholesterol Vitamin B12 Folate TSH Urine WBC (Auto) Urine Creatinine Urine Total Protein CHESTER Screen CHESTER Titer Complement C3 Complement C4 02/11/19 02/11/19 02/11/19 04:54 04:54 05:40 WBC 12.5 H RBC 3.18 L Hgb 9.4 L Hct 29.4 L RDW 16.6 H Plt Count Seg Neuts % (Manual) 94.0 H Lymphocytes % (Manual) 4.0 L Seg Neutrophils # Man 11.8 H Lymphocytes # (Manual) 0.5 L PT INR APTT Thrombin Time POC ABG pH ABG pH POC ABG pCO2 POC ABG pO2 ABG pO2 ABG HCO3 ABG O2 Saturation ABG Base Excess ABG Hemoglobin Oxyhemoglobin Sodium 151 H Potassium Chloride 112.6 H Carbon Dioxide BUN 127 H Creatinine 1.8 H Glucose 396 H POC Glucose 410 H Lactic Acid Calcium 8.3 L Magnesium Iron TIBC Direct Bilirubin AST Alkaline Phosphatase 132 H Troponin T C-Reactive Protein Total Protein Albumin 2.1 L LDL Cholesterol Direct HDL Cholesterol Vitamin B12 Folate TSH Urine WBC (Auto) Urine Creatinine Urine Total Protein CHESTER Screen CHESTER Titer Complement C3 Complement C4 02/11/19 02/11/19 02/11/19 11:30 17:58 23:18 WBC RBC Hgb Hct RDW Plt Count Seg Neuts % (Manual) Lymphocytes % (Manual) Seg Neutrophils # Man Lymphocytes # (Manual) PT INR APTT Thrombin Time POC ABG pH ABG pH POC ABG pCO2 POC ABG pO2 ABG pO2 ABG HCO3 ABG O2 Saturation ABG Base Excess ABG Hemoglobin Oxyhemoglobin Sodium Potassium Chloride Carbon Dioxide BUN Creatinine Glucose POC Glucose 361 H 414 H 392 H Lactic Acid Calcium Magnesium Iron TIBC Direct Bilirubin AST Alkaline Phosphatase Troponin T C-Reactive Protein Total Protein Albumin LDL Cholesterol Direct HDL Cholesterol Vitamin B12 Folate TSH Urine WBC (Auto) Urine Creatinine Urine Total Protein CHESTER Screen CHESTER Titer Complement C3 Complement C4 02/12/19 02/12/19 02/12/19 05:32 05:36 05:36 WBC 11.9 H RBC 3.40 L Hgb 9.9 L Hct RDW 16.4 H Plt Count Seg Neuts % (Manual) 97.0 H Lymphocytes % (Manual) 2.0 L Seg Neutrophils # Man 11.5 H Lymphocytes # (Manual) 0.2 L PT INR APTT Thrombin Time POC ABG pH ABG pH POC ABG pCO2 POC ABG pO2 ABG pO2 ABG HCO3 ABG O2 Saturation ABG Base Excess ABG Hemoglobin Oxyhemoglobin Sodium 146 H Potassium 3.5 L Chloride 110.2 H Carbon Dioxide BUN 118 H Creatinine 1.4 H Glucose 382 H POC Glucose 361 H Lactic Acid Calcium 8.3 L Magnesium Iron TIBC Direct Bilirubin AST Alkaline Phosphatase 137 H Troponin T C-Reactive Protein Total Protein Albumin 2.0 L LDL Cholesterol Direct HDL Cholesterol Vitamin B12 Folate TSH Urine WBC (Auto) Urine Creatinine Urine Total Protein CHESTER Screen CHESTER Titer Complement C3 Complement C4 02/12/19 02/12/19 02/12/19 11:51 17:18 21:46 WBC RBC Hgb Hct RDW Plt Count Seg Neuts % (Manual) Lymphocytes % (Manual) Seg Neutrophils # Man Lymphocytes # (Manual) PT INR APTT Thrombin Time POC ABG pH ABG pH POC ABG pCO2 POC ABG pO2 ABG pO2 ABG HCO3 ABG O2 Saturation ABG Base Excess ABG Hemoglobin Oxyhemoglobin Sodium Potassium Chloride Carbon Dioxide BUN Creatinine Glucose POC Glucose 357 H 280 H 222 H Lactic Acid Calcium Magnesium Iron TIBC Direct Bilirubin AST Alkaline Phosphatase Troponin T C-Reactive Protein Total Protein Albumin LDL Cholesterol Direct HDL Cholesterol Vitamin B12 Folate TSH Urine WBC (Auto) Urine Creatinine Urine Total Protein CHESTER Screen CHESTER Titer Complement C3 Complement C4 02/12/19 02/13/19 02/13/19 23:58 03:41 03:41 WBC 11.6 H RBC 3.53 L Hgb Hct RDW 15.8 H Plt Count 98 L Seg Neuts % (Manual) 97.0 H Lymphocytes % (Manual) 2.0 L Seg Neutrophils # Man 11.3 H Lymphocytes # (Manual) 0.2 L PT INR APTT Thrombin Time POC ABG pH ABG pH POC ABG pCO2 POC ABG pO2 ABG pO2 ABG HCO3 ABG O2 Saturation ABG Base Excess ABG Hemoglobin Oxyhemoglobin Sodium Potassium 3.4 L Chloride 109.7 H Carbon Dioxide BUN 108 H Creatinine Glucose 182 H POC Glucose 208 H Lactic Acid Calcium Magnesium Iron TIBC Direct Bilirubin AST 45 H Alkaline Phosphatase 150 H Troponin T C-Reactive Protein Total Protein Albumin 1.8 L LDL Cholesterol Direct HDL Cholesterol Vitamin B12 Folate TSH Urine WBC (Auto) Urine Creatinine Urine Total Protein CHESTER Screen CHESTER Titer Complement C3 Complement C4 02/13/19 02/13/19 02/13/19 05:40 11:31 18:01 WBC RBC Hgb Hct RDW Plt Count Seg Neuts % (Manual) Lymphocytes % (Manual) Seg Neutrophils # Man Lymphocytes # (Manual) PT INR APTT Thrombin Time POC ABG pH ABG pH POC ABG pCO2 POC ABG pO2 ABG pO2 ABG HCO3 ABG O2 Saturation ABG Base Excess ABG Hemoglobin Oxyhemoglobin Sodium Potassium Chloride Carbon Dioxide BUN Creatinine Glucose POC Glucose 179 H 193 H 151 H Lactic Acid Calcium Magnesium Iron TIBC Direct Bilirubin AST Alkaline Phosphatase Troponin T C-Reactive Protein Total Protein Albumin LDL Cholesterol Direct HDL Cholesterol Vitamin B12 Folate TSH Urine WBC (Auto) Urine Creatinine Urine Total Protein CHESTER Screen CHESTER Titer Complement C3 Complement C4 02/13/19 02/14/19 02/14/19 23:47 04:03 04:03 WBC RBC Hgb Hct RDW 16.0 H Plt Count Seg Neuts % (Manual) 94.0 H Lymphocytes % (Manual) 2.0 L Seg Neutrophils # Man 8.9 H Lymphocytes # (Manual) 0.2 L PT INR APTT Thrombin Time POC ABG pH ABG pH POC ABG pCO2 POC ABG pO2 ABG pO2 ABG HCO3 ABG O2 Saturation ABG Base Excess ABG Hemoglobin Oxyhemoglobin Sodium Potassium 3.4 L Chloride 108.7 H Carbon Dioxide 21 L BUN 96 H Creatinine Glucose 129 H POC Glucose 144 H Lactic Acid Calcium 8.2 L Magnesium Iron TIBC Direct Bilirubin AST 65 H Alkaline Phosphatase 164 H Troponin T C-Reactive Protein Total Protein Albumin 1.7 L LDL Cholesterol Direct HDL Cholesterol Vitamin B12 Folate TSH Urine WBC (Auto) Urine Creatinine Urine Total Protein CHESTER Screen CHESTER Titer Complement C3 Complement C4 02/14/19 02/14/19 02/14/19 04:03 05:10 11:51 WBC RBC Hgb Hct RDW Plt Count Seg Neuts % (Manual) Lymphocytes % (Manual) Seg Neutrophils # Man Lymphocytes # (Manual) PT INR APTT Thrombin Time POC ABG pH ABG pH POC ABG pCO2 POC ABG pO2 ABG pO2 ABG HCO3 ABG O2 Saturation ABG Base Excess ABG Hemoglobin Oxyhemoglobin Sodium Potassium Chloride Carbon Dioxide BUN Creatinine Glucose POC Glucose 145 H 192 H Lactic Acid Calcium Magnesium 1.60 L Iron TIBC Direct Bilirubin AST Alkaline Phosphatase Troponin T C-Reactive Protein Total Protein Albumin LDL Cholesterol Direct HDL Cholesterol Vitamin B12 Folate TSH Urine WBC (Auto) Urine Creatinine Urine Total Protein CHESTER Screen CHESTER Titer Complement C3 Complement C4 02/14/19 02/14/19 02/15/19 17:42 23:33 05:33 WBC RBC Hgb Hct RDW 15.9 H Plt Count Seg Neuts % (Manual) 95.0 H Lymphocytes % (Manual) 1.0 L Seg Neutrophils # Man 7.9 H Lymphocytes # (Manual) 0.1 L PT INR APTT Thrombin Time POC ABG pH ABG pH POC ABG pCO2 POC ABG pO2 ABG pO2 ABG HCO3 ABG O2 Saturation ABG Base Excess ABG Hemoglobin Oxyhemoglobin Sodium Potassium Chloride Carbon Dioxide BUN Creatinine Glucose POC Glucose 229 H 204 H Lactic Acid Calcium Magnesium Iron TIBC Direct Bilirubin AST Alkaline Phosphatase Troponin T C-Reactive Protein Total Protein Albumin LDL Cholesterol Direct HDL Cholesterol Vitamin B12 Folate TSH Urine WBC (Auto) Urine Creatinine Urine Total Protein CHESTER Screen CHE[place] Titer Complement C3 Complement C4 02/15/19 02/15/19 02/15/19 05:33 05:41 12:30 WBC RBC Hgb Hct RDW Plt Count Seg Neuts % (Manual) Lymphocytes % (Manual) Seg Neutrophils # Man Lymphocytes # (Manual) PT INR APTT Thrombin Time POC ABG pH ABG pH POC ABG pCO2 POC ABG pO2 ABG pO2 ABG HCO3 ABG O2 Saturation ABG Base Excess ABG Hemoglobin Oxyhemoglobin Sodium Potassium Chloride 108.2 H Carbon Dioxide BUN 91 H Creatinine Glucose 197 H POC Glucose 209 H 168 H Lactic Acid Calcium 8.2 L Magnesium Iron TIBC Direct Bilirubin AST 61 H Alkaline Phosphatase 215 H Troponin T C-Reactive Protein Total Protein Albumin 1.9 L LDL Cholesterol Direct HDL Cholesterol Vitamin B12 Folate TSH Urine WBC (Auto) Urine Creatinine Urine Total Protein CHESTER Screen CHESTER Titer Complement C3 Complement C4 02/15/19 02/15/19 02/16/19 18:17 23:53 04:58 WBC RBC Hgb Hct RDW 15.7 H Plt Count Seg Neuts % (Manual) 93.0 H Lymphocytes % (Manual) 5.0 L Seg Neutrophils # Man Lymphocytes # (Manual) 0.4 L PT INR APTT Thrombin Time POC ABG pH ABG pH POC ABG pCO2 POC ABG pO2 ABG pO2 ABG HCO3 ABG O2 Saturation ABG Base Excess ABG Hemoglobin Oxyhemoglobin Sodium Potassium Chloride Carbon Dioxide BUN Creatinine Glucose POC Glucose 161 H 160 H Lactic Acid Calcium Magnesium Iron TIBC Direct Bilirubin AST Alkaline Phosphatase Troponin T C-Reactive Protein Total Protein Albumin LDL Cholesterol Direct HDL Cholesterol Vitamin B12 Folate TSH Urine WBC (Auto) Urine Creatinine Urine Total Protein CHESTER Screen CHE[place] Titer Complement C3 Complement C4 02/16/19 02/16/19 02/16/19 04:58 12:27 17:08 WBC RBC Hgb Hct RDW Plt Count Seg Neuts % (Manual) Lymphocytes % (Manual) Seg Neutrophils # Man Lymphocytes # (Manual) PT INR APTT Thrombin Time POC ABG pH ABG pH POC ABG pCO2 POC ABG pO2 ABG pO2 ABG HCO3 ABG O2 Saturation ABG Base Excess ABG Hemoglobin Oxyhemoglobin Sodium Potassium Chloride 108.3 H Carbon Dioxide BUN 90 H Creatinine Glucose 126 H POC Glucose 125 H 180 H Lactic Acid Calcium 8.1 L Magnesium Iron TIBC Direct Bilirubin AST 52 H Alkaline Phosphatase 188 H Troponin T C-Reactive Protein Total Protein Albumin 2.0 L LDL Cholesterol Direct HDL Cholesterol Vitamin B12 Folate TSH Urine WBC (Auto) Urine Creatinine Urine Total Protein CHESTER Screen CHESTER Titer Complement C3 Complement C4 02/16/19 02/16/19 02/17/19 21:52 23:51 04:43 WBC RBC 3.48 L Hgb Hct RDW 15.8 H Plt Count Seg Neuts % (Manual) 87.0 H Lymphocytes % (Manual) 6.0 L Seg Neutrophils # Man Lymphocytes # (Manual) 0.5 L PT INR APTT Thrombin Time POC ABG pH ABG pH POC ABG pCO2 POC ABG pO2 ABG pO2 ABG HCO3 ABG O2 Saturation ABG Base Excess ABG Hemoglobin Oxyhemoglobin Sodium Potassium Chloride Carbon Dioxide BUN Creatinine Glucose POC Glucose 177 H 161 H Lactic Acid Calcium Magnesium Iron TIBC Direct Bilirubin AST Alkaline Phosphatase Troponin T C-Reactive Protein Total Protein Albumin LDL Cholesterol Direct HDL Cholesterol Vitamin B12 Folate TSH Urine WBC (Auto) Urine Creatinine Urine Total Protein CHESTER Screen CHESTER Titer Complement C3 Complement C4 02/17/19 02/17/19 04:43 05:05 WBC RBC Hgb Hct RDW Plt Count Seg Neuts % (Manual) Lymphocytes % (Manual) Seg Neutrophils # Man Lymphocytes # (Manual) PT INR APTT Thrombin Time POC ABG pH ABG pH POC ABG pCO2 POC ABG pO2 ABG pO2 ABG HCO3 ABG O2 Saturation ABG Base Excess ABG Hemoglobin Oxyhemoglobin Sodium Potassium Chloride 110.2 H Carbon Dioxide 21 L BUN 90 H Creatinine Glucose 164 H POC Glucose 166 H Lactic Acid Calcium 8.2 L Magnesium Iron TIBC Direct Bilirubin AST 59 H Alkaline Phosphatase 224 H Troponin T C-Reactive Protein Total Protein 6.2 L Albumin 1.9 L LDL Cholesterol Direct HDL Cholesterol Vitamin B12 Folate TSH Urine WBC (Auto) Urine Creatinine Urine Total Protein CHESTER Screen CHESTER Titer Complement C3 Complement C4
[2019-02-17] MEDS: ACETAMINOPHEN 325 MG TAB PO PRN ×2 (14:36→22:05)
--- NOTE | 2019-02-17 15:07 | Progress Note ---
Assessment and Plan Patient was altered and was not able to give history. History obtained from her son and her sister. 53-year-old -[place] female with past medical history significant for hypothyroidism, hypertension, autoimmune disease was brought via EMS to the emergency department with c/o of altered mental status. Night prior to adLast night she went out with family for dinner and she was confused, she was barely speaking, difficulty of finding words. EMS was called and patient refused to come to the hospital. This morning the patient was found in her bed unresponsive by her son called EMS and brought her to the hospital. Patient had cough for a month, she had sore throat for a week and had pain on swallowing and didn't eat anything last night. - Severe sepsis with Strep pneumoniae bacteremia, pneumonia and meningitis: TERRENCE was negative for vegetations per cardiology. ID following continue with Ceftriaxone - Acute respiratory failure on MV > 96 hours cont vent mx. per pulmonology Bronhcodilators Not Weaning off the vent. 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 would benefit from CTA H/N when renal function improves obtain carotid dopplers - History of lupus? families is unclear on this medical history, but know that she has some form of autoimmune disease Compliments are reduced, CHESTER is positive, anti ds dna pending, highly suspect lupus cont steroids - Acute metabolic encephalopathy Likely due to sepsis, EEG neg for seizure, neuro input appreciated - Type 2 NM SSI Glucerna - Hypothyroidism TSH elevated, synthroid dose increased -repeat TFTs in 4-6 wks - Hypokalemia Still supplement - Acute encephalopathy: secondary to meningitis. MRI brain showed acute ischemic changes in the posterior distribution of the R MCA, right frontal and parietal deep white matter and left frontal deep white matter, additional foci of ischemic change in b/l cerebellar hemispheres. - DVT PPx SCD only. No anticoagulation b/c Thrombocytopenia and GI with pepcid - Code status: Full code Subjective Date of service: 02/17/19 Principal diagnosis: Sepsis, pneumonia, acute respr failure Interval history: Patient seen and examined. Remains intubated > 96 hrs. Discussed with nursing staff. No overnight events reported to me.Remains afebrile Objective - Exam Narrative Exam: Constitutional: Intubated and connected to mechanical ventilation for over 96 hours Head: Normocephalic atraumatic Eyes: Pupils are equal round and reactive to light Nose: No enlarged turbinates, no septal deviation. Mouth: ET tube in place Moist mucous membranes. Neck: Supple no thyromegaly. No bruit. No JVD Heart: Regular rate and rhythm, S1-S2 normal. No rubs murmurs or gallop Lungs: Decreased breath sounds bilaterally. no rales or rhonchi Abdomen: Soft, nontender. Bowel sound are present. Extremities: No edema, no cyanosis, no clubbing. Neuro: unresponsive. Skin: No rashes or hyperpigmented spots Musculoskeletal system: No joint pain or swelling Hematological: No petechia or subcutanous hemorrhages. Immunological: No multiple septic spots on the skin Lymphatic: No generalized lymphadenopathy Psychiatry: Intubated and unresponsive - Constitutional Vitals: Vital Signs - 12hr 02/17/19 02/17/19 02/17/19 03:00 03:04 03:30 Temperature Pulse Rate 81 79 90 Pulse Rate [ Anterior Bilateral Throughout] Pulse Rate [ From Monitor] Pulse Rate [ Posterior Throughout] Pulse Rate [ Right Radial] Respiratory 21 25 H Rate Respiratory Rate [Anterior Bilateral Throughout] Respiratory Rate [Posterior Throughout] Blood Pressure 162/89 162/89 166/93 O2 Sat by Pulse 100 100 100 Oximetry 02/17/19 02/17/19 02/17/19 03:43 04:00 04:30 Temperature 98.9 F Pulse Rate 82 80 Pulse Rate [ Anterior Bilateral Throughout] Pulse Rate [ 85 From Monitor] Pulse Rate [ Posterior Throughout] Pulse Rate [ 85 Right Radial] Respiratory 21 22 Rate Respiratory Rate [Anterior Bilateral Throughout] Respiratory Rate [Posterior Throughout] Blood Pressure 150/90 156/87 O2 Sat by Pulse 100 100 Oximetry 02/17/19 02/17/19 02/17/19 05:00 05:30 05:50 Temperature Pulse Rate 75 87 88 Pulse Rate [ Anterior Bilateral Throughout] Pulse Rate [ From Monitor] Pulse Rate [ Posterior Throughout] Pulse Rate [ Right Radial] Respiratory 20 22 Rate Respiratory Rate [Anterior Bilateral Throughout] Respiratory Rate [Posterior Throughout] Blood Pressure 156/81 159/96 159/96 O2 Sat by Pulse 100 100 Oximetry 02/17/19 02/17/19 02/17/19 06:00 06:31 07:01 Temperature Pulse Rate 81 87 77 Pulse Rate [ Anterior Bilateral Throughout] Pulse Rate [ From Monitor] Pulse Rate [ Posterior Throughout] Pulse Rate [ Right Radial] Respiratory 21 25 H 16 Rate Respiratory Rate [Anterior Bilateral Throughout] Respiratory Rate [Posterior Throughout] Blood Pressure 158/95 158/95 118/69 O2 Sat by Pulse 100 99 98 Oximetry 02/17/19 02/17/19 02/17/19 07:30 07:43 07:47 Temperature Pulse Rate 65 66 Pulse Rate [ 86 Anterior Bilateral Throughout] Pulse Rate [ From Monitor] Pulse Rate [ 80 Posterior Throughout] Pulse Rate [ Right Radial] Respiratory 16 Rate Respiratory 20 Rate [Anterior Bilateral Throughout] Respiratory 24 Rate [Posterior Throughout] Blood Pressure 102/61 102/61 O2 Sat by Pulse 99 100 Oximetry 02/17/19 02/17/19 02/17/19 08:00 08:30 09:00 Temperature 98.7 F Pulse Rate 73 63 65 Pulse Rate [ Anterior Bilateral Throughout] Pulse Rate [ 63 From Monitor] Pulse Rate [ Posterior Throughout] Pulse Rate [ 63 Right Radial] Respiratory 20 17 17 Rate Respiratory Rate [Anterior Bilateral Throughout] Respiratory Rate [Posterior Throughout] Blood Pressure 133/72 109/62 116/60 O2 Sat by Pulse 98 100 100 Oximetry 02/17/19 02/17/19 02/17/19 09:30 10:00 10:31 Temperature Pulse Rate 70 63 80 Pulse Rate [ Anterior Bilateral Throughout] Pulse Rate [ From Monitor] Pulse Rate [ Posterior Throughout] Pulse Rate [ Right Radial] Respiratory 18 18 20 Rate Respiratory Rate [Anterior Bilateral Throughout] Respiratory Rate [Posterior Throughout] Blood Pressure 119/56 114/70 137/73 O2 Sat by Pulse 100 100 100 Oximetry 02/17/19 02/17/19 02/17/19 11:00 11:30 11:40 Temperature Pulse Rate 77 76 76 Pulse Rate [ Anterior Bilateral Throughout] Pulse Rate [ From Monitor] Pulse Rate [ Posterior Throughout] Pulse Rate [ Right Radial] Respiratory 24 20 Rate Respiratory Rate [Anterior Bilateral Throughout] Respiratory Rate [Posterior Throughout] Blood Pressure 122/72 119/67 119/67 O2 Sat by Pulse 100 100 100 Oximetry 02/17/19 02/17/19 02/17/19 12:00 12:30 13:01 Temperature 98.0 F Pulse Rate 75 77 84 Pulse Rate [ Anterior Bilateral Throughout] Pulse Rate [ 75 From Monitor] Pulse Rate [ Posterior Throughout] Pulse Rate [ 75 Right Radial] Respiratory 16 20 20 Rate Respiratory Rate [Anterior Bilateral Throughout] Respiratory Rate [Posterior Throughout] Blood Pressure 122/73 126/74 145/85 O2 Sat by Pulse 100 100 100 Oximetry 02/17/19 02/17/19 13:30 14:00 Temperature Pulse Rate 76 86 Pulse Rate [ Anterior Bilateral Throughout] Pulse Rate [ From Monitor] Pulse Rate [ Posterior Throughout] Pulse Rate [ Right Radial] Respiratory 19 14 Rate Respiratory Rate [Anterior Bilateral Throughout] Respiratory Rate [Posterior Throughout] Blood Pressure 143/78 152/84 O2 Sat by Pulse 100 100 Oximetry - Labs CBC & Chem 7: 02/17/19 04:43 02/17/19 04:43 Labs: Abnormal lab results 02/16/19 02/16/19 02/16/19 Range/Units 17:08 21:52 23:51 RBC (3.65-5.03) M/mm3 RDW (13.2-15.2) % Seg Neuts % (Manual) (40.0-70.0) % Lymphocytes % (Manual) (13.4-35.0) % Lymphocytes # (Manual) (1.2-5.4) K/mm3 Chloride (98-107) mmol/L Carbon Dioxide (22-30) mmol/L BUN (7-17) mg/dL Glucose (65-100) mg/dL POC Glucose 180 H 177 H 161 H (70-105) Calcium (8.4-10.2) mg/dL AST (5-40) units/L Alkaline Phosphatase (35-129) units/L Total Protein (6.3-8.2) g/dL Albumin (3.9-5) g/dL 02/17/19 02/17/19 02/17/19 Range/Units 04:43 04:43 05:05 RBC 3.48 L (3.65-5.03) M/mm3 RDW 15.8 H (13.2-15.2) % Seg Neuts % (Manual) 87.0 H (40.0-70.0) % Lymphocytes % (Manual) 6.0 L (13.4-35.0) % Lymphocytes # (Manual) 0.5 L (1.2-5.4) K/mm3 Chloride 110.2 H (98-107) mmol/L Carbon Dioxide 21 L (22-30) mmol/L BUN 90 H (7-17) mg/dL Glucose 164 H (65-100) mg/dL POC Glucose 166 H (70-105) Calcium 8.2 L (8.4-10.2) mg/dL AST 59 H (5-40) units/L Alkaline Phosphatase 224 H (35-129) units/L Total Protein 6.2 L (6.3-8.2) g/dL Albumin 1.9 L (3.9-5) g/dL
[2019-02-17] MEDS: INSULIN GLARGINE 100 UNITS/ML SUB-Q SCH (22:06)
[2019-02-18] MEDS: IPRATROPIUM/ALBUTEROL SULFATE 3 ML AMPUL.NEB IH SCH ×4 (01:37→19:11)
--- NOTE | 2019-02-18 06:49 | Hem/Onc Progress Note ---
Assessment and Plan 1. h/o Thrombocytopenia, sepsis/infection/antibiotic related. Folate level is low, B12 is normal. Serum iron is low, but ferritin is not low. HIV negative. Fibrinogen level is not low. PT, PTT is not abnormal. Supportive care at this time will help the patient. 2. Diabetes. 3. Hypothyroidism. 4. History of renal impairment, on supportive care. 5. Intubation for respiratory issues. 6. Neurology team saw the patient. Neurology thinks it is septic metabolic encephalopathy. I will follow the patient during inpatient stay. 02/18 plt normalized low folate on replacement pt still - on vent neurology following TERRENCE done trach peg eval will follow PRN - Patient Problems (1) Thrombocytopenia Current Visit: Yes Status: Acute Subjective Date of service: 02/18/19 Principal diagnosis: h/o low plt Interval history: non verbal Objective - Exam Narrative Exam: Pain - not evaluable General appearance intubated Performance status complete dependent Eyes - no icterus ENT - no bleeding - on vent LNs cervical not palpable Neck - no LN Respiratory Normal Breath sounds - CTA anteriorly CVS S1 S2 + Extremities normal temperature General GI Soft Rectal deferred female - deferred Skin warm Musculoskeletal no movements Neurologically not responding - Constitutional Vitals: Last Vital Signs Temp 98.9 F 02/18/19 03:22 Pulse 83 02/18/19 03:57 Resp 21 02/18/19 03:30 BP 160/88 02/18/19 03:57 Pulse Ox 100 02/18/19 03:57 - Labs Lab Results: Laboratory Results - last 24 hr 02/17/19 02/17/19 02/17/19 04:43 12:09 18:16 Add Manual Diff Complete Total Counted 100 Seg Neuts % (Manual) 87.0 H Band Neutrophils % 2.0 Lymphocytes % (Manual) 6.0 L Reactive Lymphs % (Man) 0 Monocytes % (Manual) 4.0 Eosinophils % (Manual) 0 Basophils % (Manual) 0 Metamyelocytes % 1.0 Myelocytes % 0 Promyelocytes % 0 Blast Cells % 0 Nucleated RBC % Not Reportable Seg Neutrophils # Man 6.8 Band Neutrophils # 0.2 Lymphocytes # (Manual) 0.5 L Abs React Lymphs (Man) 0.0 Monocytes # (Manual) 0.3 Eosinophils # (Manual) 0.0 Basophils # (Manual) 0.0 Metamyelocytes # 0.1 Myelocytes # 0.0 Promyelocytes # 0.0 Blast Cells # 0.0 WBC Morphology Not Reportable Hypersegmented Neuts Not Reportable Hyposegmented Neuts Not Reportable Hypogranular Neuts Not Reportable Smudge Cells Not Reportable Toxic Granulation Not Reportable Toxic Vacuolation Not Reportable Dohle Bodies Not Reportable Pelger-Huet Anomaly Not Reportable Raghav Rods Not Reportable Platelet Estimate Consistent w auto Clumped Platelets Not Reportable Plt Clumps, EDTA Not Reportable Large Platelets Not Reportable Giant Platelets Not Reportable Platelet Satelliting Not Reportable Plt Morphology Comment Giant platelets RBC Morphology Not Reportable Dimorphic RBCs Not Reportable Polychromasia Not Reportable Hypochromasia Not Reportable Poikilocytosis Not Reportable Anisocytosis 1+ Microcytosis Not Reportable Macrocytosis Not Reportable Spherocytes Not Reportable Pappenheimer Bodies Not Reportable Sickle Cells Not Reportable Target Cells Rare Tear Drop Cells Not Reportable Ovalocytes Few Helmet Cells Not Reportable Hickey-[place] Bodies Not Reportable [place] Rings Not Reportable [place] Cells Not Reportable Bite Cells Not Reportable Crenated Cell Not Reportable Elliptocytes Not Reportable Acanthocytes (Spur) Not Reportable Rouleaux Not Reportable Hemoglobin C Crystals Not Reportable Schistocytes Rare Malaria parasites Not Reportable Riccardo Bodies Not Reportable Hem Pathologist Commnt No POC Glucose 105 123 H 02/17/19 02/18/19 02/18/19 22:15 00:14 05:23 Add Manual Diff Total Counted Seg Neuts % (Manual) Band Neutrophils % Lymphocytes % (Manual) Reactive Lymphs % (Man) Monocytes % (Manual) Eosinophils % (Manual) Basophils % (Manual) Metamyelocytes % Myelocytes % Promyelocytes % Blast Cells % Nucleated RBC % Seg Neutrophils # Man Band Neutrophils # Lymphocytes # (Manual) Abs React Lymphs (Man) Monocytes # (Manual) Eosinophils # (Manual) Basophils # (Manual) Metamyelocytes # Myelocytes # Promyelocytes # Blast Cells # WBC Morphology Hypersegmented Neuts Hyposegmented Neuts Hypogranular Neuts Smudge Cells Toxic Granulation Toxic Vacuolation Dohle Bodies Pelger-Huet Anomaly Raghav Rods Platelet Estimate Clumped Platelets Plt Clumps, EDTA Large Platelets Giant Platelets Platelet Satelliting Plt Morphology Comment RBC Morphology Dimorphic RBCs Polychromasia Hypochromasia Poikilocytosis Anisocytosis Microcytosis Macrocytosis Spherocytes Pappenheimer Bodies Sickle Cells Target Cells Tear Drop Cells Ovalocytes Helmet Cells Hickey-[place] Bodies [place] Rings Duc Cells Bite Cells Crenated Cell Elliptocytes Acanthocytes (Spur) Rouleaux Hemoglobin C Crystals Schistocytes Malaria parasites Riccardo Bodies Hem Pathologist Commnt POC Glucose 135 H 142 H 175 H Medications & Allergies - Medications Allergies/Adverse Reactions: Allergies No Known Allergies Allergy (Verified 08/18/18 09:04) Home Medications: Home Medications Medication Instructions Recorded Confirmed Last Taken Type Levothyroxine [Synthroid] 112 mcg PO QAM 02/01/19 02/01/19 Unknown History Lisinopril [Zestril TAB] 40 mg PO QDAY 02/01/19 02/01/19 Unknown History amLODIPine [Norvasc] 10 mg PO DAILY 02/01/19 02/01/19 Unknown History cloNIDine [Catapres] 1 mg PO QDAY 02/01/19 02/01/19 Unknown History Active Medications: Generic Name Dose Route Start Last Admin Trade Name Freq PRN Reason Stop Dose Admin Acetaminophen 650 mg 02/01/19 10:47 02/17/19 22:05 Tylenol PO 650 mg Q4H PRN Administration Pain MILD(1-3)/Fever >100.5/VALENZUELA Albuterol 2.5 mg 02/01/19 10:47 Proventil IH Q4HRT PRN Shortness Of Breath Albuterol/Ipratropium 1 ampul 02/01/19 12:00 02/18/19 01:37 Duoneb *Not For Prn Use* IH 1 ampul Q6HRT AMOL Administration Lipase/Protease/Amylase 1 each 02/05/19 11:04 02/13/19 21:35 Pancreemeka Hammond 10,500 Unit FEEDTUBE 1 each PRN PRN Administration For Clogged Feeding Tube Dexamethasone 2 mg 02/16/19 10:00 02/17/19 22:05 Decadron IV 2 mg Q12HR AMOL Administration Diltiazem HCl 60 mg 02/13/19 12:00 02/17/19 18:00 Cardizem PO 60 mg Q6H AMOL Administration Famotidine 20 mg 02/12/19 10:00 02/17/19 22:05 Pepcid PO 20 mg BID AMOL Administration Folic Acid 1 mg 02/06/19 10:00 02/17/19 10:00 Folvite PO 1 mg QDAY AMOL Administration Hydralazine HCl 10 mg 02/13/19 22:15 Apresoline IV Q6H PRN Hypertension Hydrophilic Ointment 1 applic 02/01/19 11:09 02/02/19 16:50 Vaseline Lip Therapy TP 1 applic Q2HR PRN Administration Dry Lips Insulin Glargine 30 units 02/11/19 16:36 02/17/19 22:06 Lantus SUB-Q 30 units QHS AMOL Administration Insulin Human Regular 0 units 02/10/19 19:00 02/17/19 18:00 Humulin R SUB-Q Not Given Q6HR [facility] Protocol Levothyroxine Sodium 125 mcg 02/07/19 10:00 02/17/19 10:00 Synthroid PO 125 mcg QAM AMOL Administration Multi-Ingred Cream/Lotion/Oil/Oint 1 applic 02/01/19 11:09 02/08/19 21:18 Artificial Tears Ophth Oint OU 1 applic Q4HR PRN Administration Dry Eye(s) Multivitamins 5 ml 02/06/19 10:00 02/17/19 10:00 Centrum Liq PO 5 ml QDAY AMOL Administration Ondansetron HCl 4 mg 02/01/19 10:47 Zofran IV Q8H PRN Nausea And Vomiting Simple Syrup 15 ml 02/05/19 11:04 Simple Syrup FEEDTUBE PRN PRN Hypoglycemia Simple Syrup 30 ml 02/05/19 11:04 Simple Syrup FEEDTUBE PRN PRN Hypoglycemia Sodium Bicarbonate 325 mg 02/05/19 11:04 02/13/19 21:35 Sodium Bicarbonate FEEDTUBE 325 mg PRN PRN Administration For Clogged Feeding Tube Sodium Chloride 10 ml 02/01/19 22:00 02/17/19 10:00 Sodium Chloride Flush Syringe 10 Ml IV 10 ml BID AMOL Administration Sodium Chloride 10 ml 02/01/19 10:47 Sodium Chloride Flush Syringe 10 Ml IV PRN PRN LINE FLUSH
--- NOTE | 2019-02-18 06:56 | Progress Note ---
Assessment and Plan Assessment and plan: Per hx 'Patient was altered and was not able to give history. History obtained from her son and her sister. 53-year-old -[place] female with past medical history significant for hypothyroidism, hypertension, autoimmune disease was brought via EMS to the emergency department with c/o of altered mental status. Night prior to adLast night she went out with family for dinner and she was confused, she was barely speaking, difficulty of finding words. EMS was called and patient refused to come to the hospital. This morning the patient was found in her bed unresponsive by her son called EMS and brought her to the hospital. Patient had cough for a month, she had sore throat for a week and had pain on swallowing and didn't eat anything last night. " - Severe sepsis with Strep pneumoniae bacteremia, pneumonia and meningitis: TERRENCE was negative for vegetations per cardiology. csf CULTURES Negative ID signed off, Patient to complete 14 days of abx. continue with Ceftriaxone Steroids per Admissions Specialist - Acute respiratory failure on MV > 96 hours cont vent mx. per pulmonology Bronhcodilators Not Weaning off the vent. 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 would benefit from CTA H/N when renal function improves carotid doppleR- NEGATIVE ASPIRIN PER NEUROLOGY will start after trach and peg - History of lupus? families is unclear on this medical history, but know that she has some form of autoimmune disease Compliments are reduced, CHESTER is positive, anti ds dna pending, highly suspect lupus cont steroids Rheumatology evaluation outpatient - Acute metabolic encephalopathy Likely due to sepsis, EEG neg for seizure, neuro input appreciated - Type 2 SC SSI Glucerna - Hypothyroidism TSH elevated, synthroid dose increased -repeat TFTs in 4-6 wks - Hypokalemia Still supplement -Atrial fibrillation with RVR Management per Cardiology -PFO Per cardiology -Thrombocytopenia Resolved - Acute encephalopathy: secondary to meningitis. MRI brain showed acute ischemic changes in the posterior distribution of the R MCA, right frontal and parietal deep white matter and left frontal deep white matter, additional foci of ischemic change in b/l cerebellar hemispheres. - DVT PPx SCD only. No anticoagulation b/c Thrombocytopenia and GI with pepcid - Code status: Full code The high probability of a clinically significant, sudden or life threatening deterioration of the [CARDIAC, NEUROLOGY, PULMONARY] system(s) required my full and direct attention, intervention and personal management. The aggregate critical care time was [45] minutes. This time is in addition to time spent performing reported procedures but includes the following: [X] Data Review and interpretation [X] Patient assessment and monitoring of vital signs [X] Documentation [X] Medication orders and management History Interval history: Patient seen and examined. Remains intubated > 96 hrs. unresponsive, opens eyes but no purposeful movement. Discussed with nursing staff. No overnight events reported to me.Remains afebrile Hospitalist Physical - Physical exam Narrative exam: Constitutional: Intubated and connected to mechanical ventilation for over 96 hours Head: Normocephalic atraumatic Eyes: Pupils are equal round and reactive to light Nose: No enlarged turbinates, no septal deviation. Mouth: ET tube in place, Moist mucous membranes. Neck: Supple no thyromegaly. No bruit. No JVD Heart: Regular rate and rhythm, S1-S2 normal. No rubs murmurs or gallop Lungs: Decreased breath sounds bilaterally. no rales or rhonchi Abdomen: Soft,. Bowel sound are present. Extremities: No edema, no cyanosis, no clubbing. Neuro: unresponsive. Skin: No rashes or hyperpigmented spots Musculoskeletal system: No joint pain or swelling Psychiatry: Intubated and unresponsive - Constitutional Vitals: Temp Pulse Resp BP Pulse Ox 98.9 F 98 H 14 156/88 100 02/18/19 03:22 02/18/19 06:31 02/18/19 06:31 02/18/19 06:02/18/19 06:00 General appearance: Present: mild distress, well-nourished Results - Labs CBC & Chem 7: 02/17/19 04:43 02/17/19 04:43 Labs: Laboratory Last Values WBC 7.8 K/mm3 (4.5-11.0) 02/17/19 04:43 RBC 3.48 M/mm3 (3.65-5.03) L 02/17/19 04:43 Hgb 10.3 gm/dl (10.1-14.3) 02/17/19 04:43 Hct 31.4 % (30.3-42.9) 02/17/19 04:43 MCV 90 fl (79-97) 02/17/19 04:43 MCH 30 pg (28-32) 02/17/19 04:43 MCHC 33 % (30-34) 02/17/19 04:43 RDW 15.8 % (13.2-15.2) H 02/17/19 04:43 Plt Count 247 K/mm3 (140-440) 02/17/19 04:43 Lymph % (Auto) Meal Grinder Tender 02/05/19 13:02 Clinch % (Auto) Meal Grinder Tender 02/05/19 13:02 Eos % (Auto) Meal Grinder Tender 02/05/19 13:02 Baso % (Auto) Meal Grinder Tender 02/05/19 13:02 Lymph # Meal Grinder Tender 02/05/19 13:02 Clinch # Meal Grinder Tender 02/05/19 13:02 Eos # Meal Grinder Tender 02/05/19 13:02 Baso # Meal Grinder Tender 02/05/19 13:02 Add Manual Diff Complete 02/17/19 04:43 Total Counted 100 02/17/19 04:43 Seg Neutrophils % Meal Grinder Tender 02/15/19 05:33 Seg Neuts % (Manual) 87.0 % (40.0-70.0) H 02/17/19 04:43 2.0 % 02/17/19 04:43 6.0 % (13.4-35.0) L 02/17/19 04:43 Reactive Lymphs % (Man) 0 % 02/17/19 04:43 4.0 % (0.0-7.3) 02/17/19 04:43 0 % (0.0-4.3) 02/17/19 04:43 0 % (0.0-1.8) 02/17/19 04:43 1.0 % 02/17/19 04:43 0 % 02/17/19 04:43 0 % 02/17/19 04:43 0 % 02/17/19 04:43 Nucleated RBC % Not Reportable 02/17/19 04:43 Seg Neutrophils # Meal Grinder Tender 02/05/19 13:02 Seg Neutrophils # Man 6.8 K/mm3 (1.8-7.7) 02/17/19 04:43 Band Neutrophils # 0.2 K/mm3 02/17/19 04:43 0.5 K/mm3 (1.2-5.4) L 02/17/19 04:43 Abs React Lymphs (Man) 0.0 K/mm3 02/17/19 04:43 0.3 K/mm3 (0.0-0.8) 02/17/19 04:43 0.0 K/mm3 (0.0-0.4) 02/17/19 04:43 0.0 K/mm3 (0.0-0.1) 02/17/19 04:43 0.1 K/mm3 02/17/19 04:43 0.0 K/mm3 02/17/19 04:43 0.0 K/mm3 02/17/19 04:43 Blast Cells # 0.0 K/mm3 02/17/19 04:43 WBC Morphology Not Reportable 02/17/19 04:43 Hypersegmented Neuts Not Reportable 02/17/19 04:43 Hyposegmented Neuts Not Reportable 02/17/19 04:43 Hypogranular Neuts Not Reportable 02/17/19 04:43 Cancelled 02/01/19 07:16 Not Reportable 02/17/19 04:43 Not Reportable 02/17/19 04:43 Not Reportable 02/17/19 04:43 Not Reportable 02/17/19 04:43 Not Reportable 02/17/19 04:43 Not Reportable 02/17/19 04:43 Consistent w auto 02/17/19 04:43 Not Reportable 02/17/19 04:43 Plt Clumps, EDTA Not Reportable 02/17/19 04:43 Not Reportable 02/17/19 04:43 Not Reportable 02/17/19 04:43 Not Reportable 02/17/19 04:43 Plt Morphology Comment Giant platelets 02/17/19 04:43 RBC Morphology Not Reportable 02/17/19 04:43 Dimorphic RBCs Not Reportable 02/17/19 04:43 Not Reportable 02/17/19 04:43 Not Reportable 02/17/19 04:43 Not Reportable 02/17/19 04:43 Cancelled 02/01/19 07:16 1+ 02/17/19 04:43 Not Reportable 02/17/19 04:43 Not Reportable 02/17/19 04:43 Not Reportable 02/17/19 04:43 Not Reportable 02/17/19 04:43 Not Reportable 02/17/19 04:43 Rare 02/17/19 04:43 Not Reportable 02/17/19 04:43 Few 02/17/19 04:43 Cancelled 02/01/19 07:16 Not Reportable 02/17/19 04:43 Not Reportable 02/17/19 04:43 Not Reportable 02/17/19 04:43 Not Reportable 02/17/19 04:43 Not Reportable 02/17/19 04:43 Not Reportable 02/17/19 04:43 Not Reportable 02/17/19 04:43 Acanthocytes (Spur) Not Reportable 02/17/19 04:43 Rouleaux Not Reportable 02/17/19 04:43 Not Reportable 02/17/19 04:43 Rare 02/17/19 04:43 Not Reportable 02/17/19 04:43 ESR 76 mm/Hr (0-20) 02/01/19 16:51 Not Reportable 02/17/19 04:43 Hem Pathologist Commnt No 02/17/19 04:43 PT 16.3 Sec. (12.2-14.9) H 02/06/19 07:35 INR 1.35 (0.87-1.13) H 02/06/19 07:35 APTT 33.1 Sec. (24.2-36.6) 02/06/19 07:35 20.0 Sec. (15.1-19.6) H 02/01/19 07:16 479 mg/dl (211-480) 02/03/19 14:42 POC ABG pH 7.418 (7.35-7.45) 02/12/19 05:36 ABG pH 7.440 pH Units (7.350-7.450) 02/11/19 04:10 POC ABG pCO2 36.9 (35-45) 02/12/19 05:36 ABG pCO2 37.4 mm Hg 02/11/19 04:10 POC ABG pO2 92 (80-105) 02/12/19 05:36 ABG pO2 69.4 mm Hg (80.0-90.0) L 02/11/19 04:10 POC ABG HCO3 23.8 (22-26 mml/L) 02/12/19 05:36 ABG HCO3 24.8 mmol/L (20.0-26.0) 02/11/19 04:10 POC ABG Total CO2 25 (23-27mmol/L) 02/12/19 05:36 POC ABG O2 Sat 97 02/12/19 05:36 ABG O2 Saturation 94.2 % (95.0-99.0) L 02/11/19 04:10 ABG O2 Content 14.3 (0.0-44) 02/11/19 04:10 POC ABG Base Excess -1 ((-2) - (+3)mmol/L) 02/12/19 05:36 ABG Base Excess 0.8 mmol/L (-2.0-3.0) 02/11/19 04:10 ABG Hemoglobin 11.0 gm/dl (12.0-16.0) L 02/11/19 04:10 ABG Carboxyhemoglobin 1.5 % (0.0-5.0) 02/11/19 04:10 ABG Methemoglobin 0.7 % (0.0-1.5) 02/11/19 04:10 92.1 % (95.0-99.0) L 02/11/19 04:10 25 % 02/12/19 05:36 Sodium 144 mmol/L (137-145) 02/17/19 04:43 Potassium 4.1 mmol/L (3.6-5.0) 02/17/19 04:43 Chloride 110.2 mmol/L (98-107) H 02/17/19 04:43 Carbon Dioxide 21 mmol/L (22-30) L 02/17/19 04:43 17 mmol/L 02/17/19 04:43 BUN 90 mg/dL (7-17) H 02/17/19 04:43 1.0 mg/dL (0.7-1.2) 02/17/19 04:43 Estimated GFR > 60 ml/min 02/17/19 04:43 90 % 02/17/19 04:43 Glucose 164 mg/dL (65-100) H 02/17/19 04:43 POC Glucose 175 (70-105) H 02/18/19 05:23 Lactic Acid 1.40 mmol/L (0.7-2.0) 02/01/19 20:57 Calcium 8.2 mg/dL (8.4-10.2) L 02/17/19 04:43 Magnesium 1.60 mg/dL (1.7-2.3) L 02/14/19 04:03 Iron 11 ug/dL (37-170) L 02/03/19 14:42 TIBC 88 mcg/dL (250-450) L 02/03/19 14:42 332.9 ng/mL (13.0-400.0) 02/03/19 14:42 0.20 mg/dL (0.1-1.2) 02/17/19 04:43 0.7 mg/dL (0-0.2) H 02/01/19 07:29 0.5 mg/dL 02/01/19 07:29 AST 59 units/L (5-40) H 02/17/19 04:43 ALT 42 units/L (7-56) 02/17/19 04:43 224 units/L (35-129) H 02/17/19 04:43 0.181 ng/mL (0.00-0.029) H* 02/01/19 07:16 32.30 mg/dL (0.00-1.30) H 02/01/19 17:04 6.2 g/dL (6.3-8.2) L 02/17/19 04:43 1.9 g/dL (3.9-5) L 02/17/19 04:43 0.4 % 02/17/19 04:43 Triglycerides 95 mg/dL (2-149) 02/01/19 07:16 Cholesterol 75 mg/dL (50-199) 02/01/19 07:16 34 mg/dL (50-130) L 02/01/19 07:16 20 mg/dL (40-59) L 02/01/19 07:16 3.75 % 02/01/19 07:16 Vitamin B12 1468 pg/mL (211-911) H 02/03/19 14:42 5.18 ng/mL (7.3-26.0) L 02/03/19 14:42 TSH 8.470 mlU/mL (0.270-4.200) H 02/01/19 07:43 Free T4 1.08 ng/dL (0.76-1.46) 02/01/19 07:43 Sara (Yellow) 02/01/19 09:45 Cloudy (Clear) 02/01/19 09:45 5.0 (5.0-7.0) 02/01/19 09:45 Ur Specific Ramer 1.019 (1.003-1.030) 02/01/19 09:45 >500 mg/dL (Negative) 02/01/19 09:45 Neg mg/dL (Negative) 02/01/19 09:45 Neg mg/dL (Negative) 02/01/19 09:45 Mod (Negative) 02/01/19 09:45 Neg (Negative) 02/01/19 09:45 Neg (Negative) 02/01/19 09:45 < 2.0 mg/dL (<2.0) 02/01/19 09:45 Ur Leukocyte Esterase Neg (Negative) 02/01/19 09:45 10.0 /HPF (0.0-6.0) H 02/09/19 13:35 10.0 /HPF (0.0-6.0) 02/09/19 13:35 U Epithel Cells (Auto) 3.0 /HPF (0-13.0) 02/09/19 13:35 Amorphous Crystals 1+ 02/01/19 09:45 Few /HPF 02/09/19 13:35 92.9 mg/dL (0.1-20.0) H 02/09/19 18:54 Protein/Creatinin Ratio 1.25 02/09/19 18:54 116 mg/dL (5-11.8) H 02/09/19 18:54 Turbid 02/05/19 14:10 Colorless 02/05/19 14:10 1250 /mm3 (1-10) 02/05/19 14:10 30 /mm3 (0-0) 02/05/19 14:10 CSF Seg Neutrophils 30.0 % (0-6) 02/05/19 14:10 40.0 % (40-80) 02/05/19 14:10 CSF Reactive Lymphs 0 % 02/05/19 14:10 30.0 % (15-45) 02/05/19 14:10 0 % 02/05/19 14:10 0 % 02/05/19 14:10 C 02/05/19 14:10 38 mg/dL 02/05/19 14:10 140 mg/dL 02/05/19 14:10 Random Vancomycin 9.8 ug/mL (0-40.0) 02/03/19 03:30 CHESTER Screen Positive (Negative) H 02/01/19 17:04 CHESTER Titer 1:320 (Negative) H 02/01/19 17:04 CHESTER Pattern Speckled 02/01/19 17:04 Proteinase 3 (PR3) Ab <1.0 AI (<1.0) 02/01/19 19:28 Myeloperoxidase Ab <1.0 AI (<1.0) 02/01/19 19:28 Double Strand DNA Ab 1 IU/mL (<=4) 02/11/19 04:54 36 mg/dL (83-193) L 02/01/19 16:51 12 mg/dL (15-57) L 02/01/19 16:51 RPR Nonreactive (Nonreactive) 02/02/19 15:45 Hepatitis A IgM Ab Non-reactive (NonReactive) 02/02/19 19:29 Hep Bs Antigen Non-reactive (Negative) 02/02/19 19:29 Hep B Core IgM Ab Non-reactive (NonReactive) 02/02/19 19:29 Non-reactive (NonReactive) 02/02/19 19:29 HIV 1&2 Antibody Rapid Non react (Non React) 02/02/19 15:46 Non react (Non React) 02/02/19 15:46 Flexitest 1 02/02/19 13:02 Blood Type B POSITIVE 02/05/19 13:02 Active Medications - Current Medications Current Medications: Generic Name Dose Route Start Last Admin Trade Name Freq PRN Reason Stop Dose Admin Acetaminophen 650 mg 02/01/19 10:47 02/17/19 22:05 Tylenol PO 650 mg Q4H PRN Administration Pain MILD(1-3)/Fever >100.5/VALENZUELA Albuterol 2.5 mg 02/01/19 10:47 Proventil IH Q4HRT PRN Shortness Of Breath Albuterol/Ipratropium 1 ampul 02/01/19 12:00 02/18/19 01:37 Duoneb *Not For Prn Use* IH 1 ampul Q6HRT AMOL Administration Lipase/Protease/Amylase 1 each 02/05/19 11:04 02/13/19 21:35 Pancreaze 10,500 Unit FEEDTUBE 1 each PRN PRN Administration For Clogged Feeding Tube Dexamethasone 2 mg 02/16/19 10:00 02/17/19 22:05 Decadron IV 2 mg Q12HR AMOL Administration Diltiazem HCl 60 mg 02/13/19 12:00 02/17/19 18:00 Cardizem PO 60 mg Q6H AMOL Administration Famotidine 20 mg 02/12/19 10:00 02/17/19 22:05 Pepcid PO 20 mg BID AMOL Administration Folic Acid 1 mg 02/06/19 10:00 02/17/19 10:00 Folvite PO 1 mg QDAY AMOL Administration Hydralazine HCl 10 mg 02/13/19 22:15 Apresoline IV Q6H PRN Hypertension Hydrophilic Ointment 1 applic 02/01/19 11:09 02/02/19 16:50 Vaseline Lip Therapy TP 1 applic Q2HR PRN Administration Dry Lips Insulin Glargine 30 units 02/11/19 16:36 02/17/19 22:06 Lantus SUB-Q 30 units QHS AMOL Administration Insulin Human Regular 0 units 02/10/19 19:00 02/17/19 18:00 Humulin R SUB-Q Not Given Q6HR [facility] Protocol Levothyroxine Sodium 125 mcg 02/07/19 10:00 02/17/19 10:00 Synthroid PO 125 mcg QAM AMOL Administration Multi-Ingred Cream/Lotion/Oil/Oint 1 applic 02/01/19 11:09 02/08/19 21:18 Artificial Tears Ophth Oint OU 1 applic Q4HR PRN Administration Dry Eye(s) Multivitamins 5 ml 02/06/19 10:00 02/17/19 10:00 Centrum Liq PO 5 ml QDAY AMOL Administration Ondansetron HCl 4 mg 02/01/19 10:47 Zofran IV Q8H PRN Nausea And Vomiting Simple Syrup 15 ml 02/05/19 11:04 Simple Syrup FEEDTUBE PRN PRN Hypoglycemia Simple Syrup 30 ml 02/05/19 11:04 Simple Syrup FEEDTUBE PRN PRN Hypoglycemia Sodium Bicarbonate 325 mg 02/05/19 11:04 02/13/19 21:35 Sodium Bicarbonate FEEDTUBE 325 mg PRN PRN Administration For Clogged Feeding Tube Sodium Chloride 10 ml 02/01/19 22:00 02/17/19 10:00 Sodium Chloride Flush Syringe 10 Ml IV 10 ml BID AMOL Administration Sodium Chloride 10 ml 02/01/19 10:47 Sodium Chloride Flush Syringe 10 Ml IV PRN PRN LINE FLUSH Nutrition/Malnutrition Assess - Dietary Evaluation Nutrition/Malnutrition Findings: Nutrition Notes Start: 02/02/19 15:11 Freq: Status: Active Protocol: Document 02/16/19 11:50 LM (Rec: 02/16/19 11:54 LM [email or web address]) Nutrition Notes Initial or Follow up Reassessment Current Diagnosis Acute Kidney Injury, Respiratory Failure Other Pertinent Diagnosis Hypothyroidism, Septic shock, Acute encephalopathy, UTI Current Diet Nepro at 40 ml/hr Labs/Tests BG 126 BUN 126 Pertinent Medications Decadron Height 5 ft 5 in Weight 94.93 kg [place] Body Weight (kg) 56.81 BMI 34.8 Subjective/Other Information TF running at 40 ml/hr. Pt tolerating TF. Pt remains on vent. Percent of energy/protein needs met: 92%/68% Burn Absent Trauma Absent #1 Nutrition Diagnosis Inadequate oral intake Diagnosis Progress(for reassessment Continues documentation) Is patient on ventilator? Yes Is Patient Ambulatory and/or Out of Bed No REE-([facility]-confined to bed) [phone] Calculation Used for Recommendations [facility] Additional Notes Protein Needs: 114g (2g/kg IBW ) Fluid Needs: 1 ml/kcal Nutrition Intervention Change Diet Order: Continue TF Nutrition Support: Nepro at 40ml/hr Flush with 170ml q4h Kcal 1,728 Protein (gm) 78 Fluid (mL) 697 Goal #1 Meet at least 75% of energy and portein needs Anticipated Discharge Needs: Unable to determine at this time Follow-Up By: 02/22/19 Additional Comments F/U for TF rate/tolerance
[2019-02-18] MEDS: dilTIAZem 60 MG TAB PO SCH ×4 (06:58→17:09)
[2019-02-18] MEDS: INSULIN REGULAR, HUMAN 100 UNITS/1 ML SUB-Q SCH ×3 (06:59→17:24)
[2019-02-18] MEDS: FAMOTIDINE 20 MG TAB PO SCH ×2 (09:01→21:56)
[2019-02-18] MEDS: LEVOTHYROXINE 125 MCG TAB PO SCH (09:01)
[2019-02-18] MEDS: dexAMETHasone 4 MG/ML VIAL IV SCH ×2 (09:02→21:47)
[2019-02-18] MEDS: FOLIC ACID 1 MG TAB PO SCH (09:02)
[2019-02-18] MEDS: MULTIVITAMINS 5 ML ORAL LIQUID PO SCH (09:02)
[2019-02-18] MEDS ORDERED: ASPIRIN 325 MG TAB PO SCH (10:00)
--- NOTE | 2019-02-18 12:44 | Progress Note ---
Assessment and Plan 53 y/o female with strep pneumonae bacteremia, meningitis and now stroke with acute respiratory failure and continued azotemia. 1. Neuro/Rheum: Patient had a positive CHESTER titer. 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 At this point, in regards to her mental state, I'm not sure if the steroids improved her or she woke up after treatment for the infection. At this point, impossible to tell but I do feel she is going to need steroids for an extended period of time given her positive CHESTER. This will need to be worked up in the future. As stated in previous note, will continue IV steroids through the weekend and will likely switch over to PO prednisone starting Tuesday. Maybe 40mg daily. 2. MSK: Continue PT as patient's mental status has improved and she is very weak. 3. Renal: Stopped D5W. Cr has improved, BUN still elevated but no evidence of acute bleeding. Could be related to steroids. Starting to decrease those now. 4. CV-Follow up cards recs if any new ones. 5. Family and patient have agreed to trach and peg placement. Spoke with surgery this am and secondary to scheduling will not be able to perform this until Tuesday of next week. 6. Overall prognosis remains guarded, however good that patient is awake. Total critical care time 31 minutes Subjective Date of service: 02/18/19 Principal diagnosis: Sepsis, pneumonia, acute respr failure Interval history: No acute events. Asleep but will arouse with deep stimuli. Family not present. Objective Vital Signs - 12hr 02/18/19 02/18/19 02/18/19 01:00 01:30 02:00 Temperature Pulse Rate 89 86 90 Pulse Rate [ Anterior Bilateral Throughout] Pulse Rate [ From Monitor] Pulse Rate [ Posterior Throughout] Pulse Rate [ Right Radial] Respiratory 23 21 20 Rate Respiratory Rate [Anterior Bilateral Throughout] Respiratory Rate [Posterior Throughout] Blood Pressure 155/93 154/90 167/98 O2 Sat by Pulse 100 100 100 Oximetry 02/18/19 02/18/19 02/18/19 02:05 02:30 03:00 Temperature Pulse Rate 88 86 Pulse Rate [ 85 Anterior Bilateral Throughout] Pulse Rate [ From Monitor] Pulse Rate [ 83 Posterior Throughout] Pulse Rate [ Right Radial] Respiratory 21 21 Rate Respiratory 22 Rate [Anterior Bilateral Throughout] Respiratory 21 Rate [Posterior Throughout] Blood Pressure 156/93 159/94 O2 Sat by Pulse 100 100 Oximetry 02/18/19 02/18/19 02/18/19 03:22 03:30 03:57 Temperature 98.9 F Pulse Rate 88 83 Pulse Rate [ Anterior Bilateral Throughout] Pulse Rate [ From Monitor] Pulse Rate [ Posterior Throughout] Pulse Rate [ Right Radial] Respiratory 21 Rate Respiratory Rate [Anterior Bilateral Throughout] Respiratory Rate [Posterior Throughout] Blood Pressure 161/92 160/88 O2 Sat by Pulse 100 100 Oximetry 02/18/19 02/18/19 02/18/19 04:00 04:30 05:00 Temperature Pulse Rate 80 90 85 Pulse Rate [ Anterior Bilateral Throughout] Pulse Rate [ 70 From Monitor] Pulse Rate [ Posterior Throughout] Pulse Rate [ 70 Right Radial] Respiratory 20 20 21 Rate Respiratory Rate [Anterior Bilateral Throughout] Respiratory Rate [Posterior Throughout] Blood Pressure 146/85 161/89 157/84 O2 Sat by Pulse 100 100 100 Oximetry 02/18/19 02/18/19 02/18/19 05:30 06:00 06:31 Temperature Pulse Rate 87 86 98 H Pulse Rate [ Anterior Bilateral Throughout] Pulse Rate [ From Monitor] Pulse Rate [ Posterior Throughout] Pulse Rate [ Right Radial] Respiratory 21 21 14 Rate Respiratory Rate [Anterior Bilateral Throughout] Respiratory Rate [Posterior Throughout] Blood Pressure 157/92 156/88 156/88 O2 Sat by Pulse 100 100 Oximetry 02/18/19 02/18/19 02/18/19 06:58 06:59 07:01 Temperature Pulse Rate 91 H 63 71 Pulse Rate [ Anterior Bilateral Throughout] Pulse Rate [ From Monitor] Pulse Rate [ Posterior Throughout] Pulse Rate [ Right Radial] Respiratory 16 Rate Respiratory Rate [Anterior Bilateral Throughout] Respiratory Rate [Posterior Throughout] Blood Pressure 138/66 145/76 117/64 O2 Sat by Pulse 100 Oximetry 02/18/19 02/18/19 02/18/19 07:29 07:30 07:35 Temperature Pulse Rate 63 66 Pulse Rate [ 86 Anterior Bilateral Throughout] Pulse Rate [ From Monitor] Pulse Rate [ 65 Posterior Throughout] Pulse Rate [ Right Radial] Respiratory 15 Rate Respiratory 20 Rate [Anterior Bilateral Throughout] Respiratory 20 Rate [Posterior Throughout] Blood Pressure 118/64 118/54 O2 Sat by Pulse 100 100 Oximetry 02/18/19 02/18/19 02/18/19 08:00 08:30 09:00 Temperature 97.7 F Pulse Rate 66 63 87 Pulse Rate [ Anterior Bilateral Throughout] Pulse Rate [ 64 From Monitor] Pulse Rate [ Posterior Throughout] Pulse Rate [ 70 Right Radial] Respiratory 16 14 18 Rate Respiratory Rate [Anterior Bilateral Throughout] Respiratory Rate [Posterior Throughout] Blood Pressure 109/68 133/71 140/90 O2 Sat by Pulse 100 100 100 Oximetry 02/18/19 02/18/19 02/18/19 09:30 10:00 10:30 Temperature Pulse Rate 83 86 77 Pulse Rate [ Anterior Bilateral Throughout] Pulse Rate [ From Monitor] Pulse Rate [ Posterior Throughout] Pulse Rate [ Right Radial] Respiratory 19 22 19 Rate Respiratory Rate [Anterior Bilateral Throughout] Respiratory Rate [Posterior Throughout] Blood Pressure 140/98 151/84 126/73 O2 Sat by Pulse 100 100 Oximetry 02/18/19 02/18/19 02/18/19 10:58 11:01 11:30 Temperature Pulse Rate 94 H 87 84 Pulse Rate [ Anterior Bilateral Throughout] Pulse Rate [ From Monitor] Pulse Rate [ Posterior Throughout] Pulse Rate [ Right Radial] Respiratory 23 20 Rate Respiratory Rate [Anterior Bilateral Throughout] Respiratory Rate [Posterior Throughout] Blood Pressure 163/89 163/92 157/86 O2 Sat by Pulse 99 100 99 Oximetry 02/18/19 02/18/19 02/18/19 12:00 12:01 12:16 Temperature 98.3 F Pulse Rate 81 74 Pulse Rate [ Anterior Bilateral Throughout] Pulse Rate [ From Monitor] Pulse Rate [ Posterior Throughout] Pulse Rate [ Right Radial] Respiratory 18 Rate Respiratory Rate [Anterior Bilateral Throughout] Respiratory Rate [Posterior Throughout] Blood Pressure 157/86 170/93 O2 Sat by Pulse 99 Oximetry 02/18/19 12:30 Temperature Pulse Rate 70 Pulse Rate [ Anterior Bilateral Throughout] Pulse Rate [ From Monitor] Pulse Rate [ Posterior Throughout] Pulse Rate [ Right Radial] Respiratory 15 Rate Respiratory Rate [Anterior Bilateral Throughout] Respiratory Rate [Posterior Throughout] Blood Pressure 150/85 O2 Sat by Pulse 99 Oximetry Constitutional: other (orally intubated on mechanical ventilator. Not on sedation, awake, critically ill) Eyes: non-icteric ENT: oropharynx moist Neck: supple Effort: normal Ascultation: Bilateral: other (coarse BS bilaterally) Cardiovascular: other (tachy, RR; no mrg) Gastrointestinal: normoactive bowel sounds, soft, non-tender, non-distended Integumentary: normal Extremities: no cyanosis, no edema, pink and warm Neurologic: other (eyes open, not following commands or moving extremities) Psychiatric: other (unable to assess) CBC and BMP: 02/17/19 04:43 02/17/19 04:43 ABG, PT/INR, D-dimer: ABG POC ABG pH 7.418 (7.35-7.45) 02/12/19 05:36 ABG pH 7.440 pH Units (7.350-7.450) 02/11/19 04:10 POC ABG pCO2 36.9 (35-45) 02/12/19 05:36 ABG pCO2 37.4 mm Hg 02/11/19 04:10 POC ABG pO2 92 (80-105) 02/12/19 05:36 ABG pO2 69.4 mm Hg (80.0-90.0) L 02/11/19 04:10 POC ABG HCO3 23.8 (22-26 mml/L) 02/12/19 05:36 POC ABG Total CO2 25 (23-27mmol/L) 02/12/19 05:36 POC ABG O2 Sat 97 02/12/19 05:36 ABG O2 Saturation 94.2 % (95.0-99.0) L 02/11/19 04:10 PT/INR, D-dimer PT 16.3 Sec. (12.2-14.9) H 02/06/19 07:35 INR 1.35 (0.87-1.13) H 02/06/19 07:35 Abnormal lab findings: Abnormal Labs 02/01/19 02/01/19 02/01/19 07:16 07:16 07:16 WBC 17.7 H RBC Hgb Hct RDW 16.9 H Plt Count 62 L Seg Neuts % (Manual) 95.0 H Lymphocytes % (Manual) 0 L Seg Neutrophils # Man 16.8 H Lymphocytes # (Manual) 0.0 L PT 15.0 H INR 1.21 H APTT Thrombin Time 20.0 H POC ABG pH ABG pH POC ABG pCO2 POC ABG pO2 ABG pO2 ABG HCO3 ABG O2 Saturation ABG Base Excess ABG Hemoglobin Oxyhemoglobin Sodium 135 L Potassium Chloride 97.7 L Carbon Dioxide 19 L BUN 51 H Creatinine 4.5 H Glucose 112 H POC Glucose Lactic Acid Calcium Magnesium Iron TIBC Direct Bilirubin AST Alkaline Phosphatase Troponin T 0.181 H* C-Reactive Protein Total Protein Albumin LDL Cholesterol Direct 34 L HDL Cholesterol 20 L Vitamin B12 Folate TSH Urine WBC (Auto) Urine Creatinine Urine Total Protein CHESTER Screen CHESTER Titer Complement C3 Complement C4 02/01/19 02/01/19 02/01/19 07:29 07:29 07:43 WBC RBC Hgb Hct RDW Plt Count Seg Neuts % (Manual) Lymphocytes % (Manual) Seg Neutrophils # Man Lymphocytes # (Manual) PT INR APTT Thrombin Time POC ABG pH ABG pH POC ABG pCO2 POC ABG pO2 ABG pO2 ABG HCO3 ABG O2 Saturation ABG Base Excess ABG Hemoglobin Oxyhemoglobin Sodium Potassium Chloride Carbon Dioxide BUN Creatinine Glucose POC Glucose Lactic Acid 4.80 H* Calcium Magnesium Iron TIBC Direct Bilirubin 0.7 H AST 42 H Alkaline Phosphatase Troponin T C-Reactive Protein Total Protein 8.9 H Albumin 2.3 L LDL Cholesterol Direct HDL Cholesterol Vitamin B12 Folate TSH 8.470 H Urine WBC (Auto) Urine Creatinine Urine Total Protein CHESTER Screen CHESTER Titer Complement C3 Complement C4 02/01/19 02/01/19 02/01/19 09:45 11:32 13:50 WBC RBC Hgb Hct RDW Plt Count Seg Neuts % (Manual) Lymphocytes % (Manual) Seg Neutrophils # Man Lymphocytes # (Manual) PT INR APTT Thrombin Time POC ABG pH 7.289 L ABG pH POC ABG pCO2 POC ABG pO2 355 H ABG pO2 ABG HCO3 ABG O2 Saturation ABG Base Excess ABG Hemoglobin Oxyhemoglobin Sodium Potassium Chloride Carbon Dioxide BUN Creatinine Glucose POC Glucose Lactic Acid 4.10 H* Calcium Magnesium Iron TIBC Direct Bilirubin AST Alkaline Phosphatase Troponin T C-Reactive Protein Total Protein Albumin LDL Cholesterol Direct HDL Cholesterol Vitamin B12 Folate TSH Urine WBC (Auto) 16.0 H Urine Creatinine Urine Total Protein CHESTER Screen CHESTER Titer Complement C3 Complement C4 02/01/19 02/01/19 02/01/19 15:15 16:20 16:51 WBC RBC Hgb Hct RDW Plt Count Seg Neuts % (Manual) Lymphocytes % (Manual) Seg Neutrophils # Man Lymphocytes # (Manual) PT INR APTT Thrombin Time POC ABG pH ABG pH POC ABG pCO2 POC ABG pO2 ABG pO2 ABG HCO3 ABG O2 Saturation ABG Base Excess ABG Hemoglobin Oxyhemoglobin Sodium Potassium Chloride Carbon Dioxide BUN Creatinine Glucose POC Glucose 115 H Lactic Acid 4.50 H* Calcium Magnesium Iron TIBC Direct Bilirubin AST Alkaline Phosphatase Troponin T C-Reactive Protein Total Protein Albumin LDL Cholesterol Direct HDL Cholesterol Vitamin B12 Folate TSH Urine WBC (Auto) Urine Creatinine Urine Total Protein CHESTER Screen CHESTER Titer Complement C3 36 L Complement C4 02/01/19 02/01/19 02/01/19 16:51 17:03 17:04 WBC RBC Hgb Hct RDW Plt Count Seg Neuts % (Manual) Lymphocytes % (Manual) Seg Neutrophils # Man Lymphocytes # (Manual) PT INR APTT Thrombin Time POC ABG pH ABG pH POC ABG pCO2 POC ABG pO2 ABG pO2 ABG HCO3 ABG O2 Saturation ABG Base Excess ABG Hemoglobin Oxyhemoglobin Sodium Potassium Chloride Carbon Dioxide BUN Creatinine Glucose POC Glucose Lactic Acid 2.80 H* Calcium Magnesium Iron TIBC Direct Bilirubin AST Alkaline Phosphatase Troponin T C-Reactive Protein 32.30 H Total Protein Albumin LDL Cholesterol Direct HDL Cholesterol Vitamin B12 Folate TSH Urine WBC (Auto) Urine Creatinine Urine Total Protein CHESTER Screen CHESTER Titer Complement C3 Complement C4 12 L 02/01/19 02/01/19 02/02/19 17:04 19:28 05:16 WBC RBC Hgb Hct RDW Plt Count Seg Neuts % (Manual) Lymphocytes % (Manual) Seg Neutrophils # Man Lymphocytes # (Manual) PT INR APTT Thrombin Time POC ABG pH ABG pH POC ABG pCO2 POC ABG pO2 148 H ABG pO2 ABG HCO3 ABG O2 Saturation ABG Base Excess ABG Hemoglobin Oxyhemoglobin Sodium Potassium Chloride 107.1 H Carbon Dioxide 18 L BUN 52 H Creatinine 3.1 H Glucose 120 H POC Glucose Lactic Acid Calcium 7.4 L Magnesium Iron TIBC Direct Bilirubin AST Alkaline Phosphatase Troponin T C-Reactive Protein Total Protein Albumin LDL Cholesterol Direct HDL Cholesterol Vitamin B12 Folate TSH Urine WBC (Auto) Urine Creatinine Urine Total Protein CHESTER Screen Positive H CHESTER Titer 1:320 H Complement C3 Complement C4 02/02/19 02/02/19 02/03/19 05:53 05:53 03:30 WBC 14.3 H RBC 5.16 H Hgb 14.9 H Hct 46.2 H D RDW 16.9 H 17.0 H Plt Count 43 L 18 L* Seg Neuts % (Manual) 93.0 H Lymphocytes % (Manual) 2.0 L Seg Neutrophils # Man 13.3 H Lymphocytes # (Manual) 0.3 L PT INR APTT Thrombin Time POC ABG pH ABG pH POC ABG pCO2 POC ABG pO2 ABG pO2 ABG HCO3 ABG O2 Saturation ABG Base Excess ABG Hemoglobin Oxyhemoglobin Sodium Potassium 5.1 H Chloride Carbon Dioxide 21 L BUN 57 H Creatinine 3.3 H Glucose 147 H POC Glucose Lactic Acid Calcium 7.5 L Magnesium Iron TIBC Direct Bilirubin AST 51 H Alkaline Phosphatase Troponin T C-Reactive Protein Total Protein Albumin 1.6 L LDL Cholesterol Direct HDL Cholesterol Vitamin B12 Folate TSH Urine WBC (Auto) Urine Creatinine Urine Total Protein CHESTER Screen CHESTER Titer Complement C3 Complement C4 02/03/19 02/03/19 02/03/19 03:30 05:55 14:42 WBC RBC Hgb Hct RDW Plt Count Seg Neuts % (Manual) Lymphocytes % (Manual) Seg Neutrophils # Man Lymphocytes # (Manual) PT INR APTT Thrombin Time POC ABG pH ABG pH POC ABG pCO2 POC ABG pO2 117 H ABG pO2 ABG HCO3 ABG O2 Saturation ABG Base Excess ABG Hemoglobin Oxyhemoglobin Sodium Potassium Chloride Carbon Dioxide BUN 65 H Creatinine 2.7 H Glucose 117 H POC Glucose Lactic Acid Calcium 7.2 L Magnesium Iron TIBC Direct Bilirubin AST Alkaline Phosphatase Troponin T C-Reactive Protein Total Protein Albumin LDL Cholesterol Direct HDL Cholesterol Vitamin B12 1468 H Folate TSH Urine WBC (Auto) Urine Creatinine Urine Total Protein CHESTER Screen CHESTER Titer Complement C3 Complement C4 02/03/19 02/03/19 02/03/19 14:42 14:42 14:42 WBC RBC 3.17 L Hgb 9.4 L D Hct 28.3 L D RDW 16.9 H Plt Count 18 L* Seg Neuts % (Manual) Lymphocytes % (Manual) Seg Neutrophils # Man Lymphocytes # (Manual) PT INR APTT Thrombin Time POC ABG pH ABG pH POC ABG pCO2 POC ABG pO2 ABG pO2 ABG HCO3 ABG O2 Saturation ABG Base Excess ABG Hemoglobin Oxyhemoglobin Sodium Potassium Chloride Carbon Dioxide BUN Creatinine Glucose POC Glucose Lactic Acid Calcium Magnesium Iron 11 L TIBC 88 L Direct Bilirubin AST Alkaline Phosphatase Troponin T C-Reactive Protein Total Protein Albumin LDL Cholesterol Direct HDL Cholesterol Vitamin B12 Folate 5.18 L TSH Urine WBC (Auto) Urine Creatinine Urine Total Protein CHESTER Screen CHESTER Titer Complement C3 Complement C4 02/03/19 02/03/19 02/04/19 14:42 14:42 03:35 WBC RBC 3.22 L Hgb 9.5 L Hct 28.5 L RDW 16.4 H Plt Count 18 L* Seg Neuts % (Manual) Lymphocytes % (Manual) Seg Neutrophils # Man Lymphocytes # (Manual) PT 15.8 H INR 1.29 H APTT 38.2 H Thrombin Time POC ABG pH ABG pH 7.470 H POC ABG pCO2 POC ABG pO2 ABG pO2 ABG HCO3 28.4 H ABG O2 Saturation ABG Base Excess 4.5 H ABG Hemoglobin 10.1 L Oxyhemoglobin 94.7 L Sodium Potassium Chloride Carbon Dioxide BUN Creatinine Glucose POC Glucose Lactic Acid Calcium Magnesium Iron TIBC Direct Bilirubin AST Alkaline Phosphatase Troponin T C-Reactive Protein Total Protein Albumin LDL Cholesterol Direct HDL Cholesterol Vitamin B12 Folate TSH Urine WBC (Auto) Urine Creatinine Urine Total Protein CHESTER Screen CHESTER Titer Complement C3 Complement C4 02/04/19 02/04/19 02/05/19 05:02 05:02 03:50 WBC RBC Hgb Hct RDW 16.5 H Plt Count 20 L Seg Neuts % (Manual) 94.0 H Lymphocytes % (Manual) 2.0 L Seg Neutrophils # Man 9.2 H Lymphocytes # (Manual) 0.2 L PT INR APTT Thrombin Time POC ABG pH ABG pH 7.485 H POC ABG pCO2 POC ABG pO2 ABG pO2 ABG HCO3 27.5 H ABG O2 Saturation ABG Base Excess 3.9 H ABG Hemoglobin 9.1 L Oxyhemoglobin 94.8 L Sodium Potassium Chloride Carbon Dioxide BUN 66 H Creatinine 1.7 H Glucose 127 H POC Glucose Lactic Acid Calcium 7.6 L Magnesium Iron TIBC Direct Bilirubin AST Alkaline Phosphatase Troponin T C-Reactive Protein Total Protein Albumin LDL Cholesterol Direct HDL Cholesterol Vitamin B12 Folate TSH Urine WBC (Auto) Urine Creatinine Urine Total Protein CHESTER Screen CHESTER Titer Complement C3 Complement C4 02/05/19 02/05/19 02/05/19 13:02 14:36 20:03 WBC 11.7 H RBC 3.48 L 3.24 L Hgb 10.0 L 9.4 L Hct 29.2 L RDW 16.3 H 16.3 H Plt Count 50 L D 71 L Seg Neuts % (Manual) 95.0 H 95.0 H Lymphocytes % (Manual) 0 L 2.0 L Seg Neutrophils # Man 11.1 H 10.2 H Lymphocytes # (Manual) 0.0 L 0.2 L PT INR APTT Thrombin Time POC ABG pH ABG pH POC ABG pCO2 POC ABG pO2 ABG pO2 ABG HCO3 ABG O2 Saturation ABG Base Excess ABG Hemoglobin Oxyhemoglobin Sodium Potassium Chloride Carbon Dioxide BUN 67 H Creatinine 1.5 H Glucose POC Glucose Lactic Acid Calcium 7.7 L Magnesium Iron TIBC Direct Bilirubin AST Alkaline Phosphatase Troponin T C-Reactive Protein Total Protein Albumin LDL Cholesterol Direct HDL Cholesterol Vitamin B12 Folate TSH Urine WBC (Auto) Urine Creatinine Urine Total Protein CHESTER Screen CHESTER Titer Complement C3 Complement C4 02/06/19 02/06/19 02/06/19 05:39 07:35 18:34 WBC RBC Hgb Hct RDW Plt Count Seg Neuts % (Manual) Lymphocytes % (Manual) Seg Neutrophils # Man Lymphocytes # (Manual) PT 16.3 H INR 1.35 H APTT Thrombin Time POC ABG pH ABG pH POC ABG pCO2 POC ABG pO2 ABG pO2 ABG HCO3 ABG O2 Saturation ABG Base Excess ABG Hemoglobin Oxyhemoglobin Sodium Potassium Chloride Carbon Dioxide BUN Creatinine Glucose POC Glucose 107 H 121 H Lactic Acid Calcium Magnesium Iron TIBC Direct Bilirubin AST Alkaline Phosphatase Troponin T C-Reactive Protein Total Protein Albumin LDL Cholesterol Direct HDL Cholesterol Vitamin B12 Folate TSH Urine WBC (Auto) Urine Creatinine Urine Total Protein CHESTER Screen CHESTER Titer Complement C3 Complement C4 02/06/19 02/07/19 02/07/19 Unknown 01:07 04:15 WBC RBC Hgb Hct RDW Plt Count Seg Neuts % (Manual) Lymphocytes % (Manual) Seg Neutrophils # Man Lymphocytes # (Manual) PT INR APTT Thrombin Time POC ABG pH ABG pH POC ABG pCO2 POC ABG pO2 ABG pO2 ABG HCO3 ABG O2 Saturation ABG Base Excess ABG Hemoglobin 5.0 L Oxyhemoglobin 94.9 L 94.8 L Sodium 146 H Potassium Chloride Carbon Dioxide BUN 85 H Creatinine 1.8 H Glucose 163 H POC Glucose Lactic Acid Calcium 8.3 L Magnesium Iron TIBC Direct Bilirubin AST Alkaline Phosphatase Troponin T C-Reactive Protein Total Protein Albumin LDL Cholesterol Direct HDL Cholesterol Vitamin B12 Folate TSH Urine WBC (Auto) Urine Creatinine Urine Total Protein CHESTER Screen CHESTER Titer Complement C3 Complement C4 02/07/19 02/07/19 02/08/19 08:22 10:58 04:40 WBC RBC Hgb Hct RDW 16.0 H Plt Count 84 L Seg Neuts % (Manual) 97.0 H Lymphocytes % (Manual) 0 L Seg Neutrophils # Man 9.5 H Lymphocytes # (Manual) 0.0 L PT INR APTT Thrombin Time POC ABG pH 7.477 H ABG pH 7.467 H POC ABG pCO2 34.8 L POC ABG pO2 118 H ABG pO2 ABG HCO3 ABG O2 Saturation ABG Base Excess ABG Hemoglobin 8.4 L Oxyhemoglobin Sodium Potassium Chloride Carbon Dioxide BUN Creatinine Glucose POC Glucose Lactic Acid Calcium Magnesium Iron TIBC Direct Bilirubin AST Alkaline Phosphatase Troponin T C-Reactive Protein Total Protein Albumin LDL Cholesterol Direct HDL Cholesterol Vitamin B12 Folate TSH Urine WBC (Auto) Urine Creatinine Urine Total Protein CHESTER Screen CHESTER Titer Complement C3 Complement C4 02/09/19 02/09/19 02/09/19 03:17 03:17 04:35 WBC 14.9 H RBC 3.32 L Hgb 9.6 L Hct RDW 15.9 H Plt Count 113 L Seg Neuts % (Manual) 96.0 H Lymphocytes % (Manual) 1.0 L Seg Neutrophils # Man 14.3 H Lymphocytes # (Manual) 0.1 L PT INR APTT Thrombin Time POC ABG pH ABG pH 7.478 H POC ABG pCO2 POC ABG pO2 ABG pO2 94.5 H ABG HCO3 ABG O2 Saturation ABG Base Excess ABG Hemoglobin 6.1 L Oxyhemoglobin Sodium 147 H Potassium Chloride 110.4 H Carbon Dioxide BUN 114 H Creatinine 2.2 H Glucose 270 H POC Glucose Lactic Acid Calcium 8.1 L Magnesium Iron TIBC Direct Bilirubin AST Alkaline Phosphatase Troponin T C-Reactive Protein Total Protein Albumin 1.6 L LDL Cholesterol Direct HDL Cholesterol Vitamin B12 Folate TSH Urine WBC (Auto) Urine Creatinine Urine Total Protein CHESTER Screen CHESTER Titer Complement C3 Complement C4 02/09/19 02/09/19 02/10/19 13:35 18:54 05:13 WBC RBC Hgb Hct RDW Plt Count Seg Neuts % (Manual) Lymphocytes % (Manual) Seg Neutrophils # Man Lymphocytes # (Manual) PT INR APTT Thrombin Time POC ABG pH ABG pH 7.478 H POC ABG pCO2 POC ABG pO2 ABG pO2 ABG HCO3 ABG O2 Saturation ABG Base Excess ABG Hemoglobin 8.1 L Oxyhemoglobin 94.9 L Sodium Potassium Chloride Carbon Dioxide BUN Creatinine Glucose POC Glucose Lactic Acid Calcium Magnesium Iron TIBC Direct Bilirubin AST Alkaline Phosphatase Troponin T C-Reactive Protein Total Protein Albumin LDL Cholesterol Direct HDL Cholesterol Vitamin B12 Folate TSH Urine WBC (Auto) 10.0 H Urine Creatinine 92.9 H Urine Total Protein 116 H CHESTER Screen CHESTER Titer Complement C3 Complement C4 02/10/19 02/10/19 02/11/19 18:14 23:24 04:10 WBC RBC Hgb Hct RDW Plt Count Seg Neuts % (Manual) Lymphocytes % (Manual) Seg Neutrophils # Man Lymphocytes # (Manual) PT INR APTT Thrombin Time POC ABG pH ABG pH POC ABG pCO2 POC ABG pO2 ABG pO2 69.4 L ABG HCO3 ABG O2 Saturation 94.2 L ABG Base Excess ABG Hemoglobin 11.0 L Oxyhemoglobin 92.1 L Sodium Potassium Chloride Carbon Dioxide BUN Creatinine Glucose POC Glucose 453 H 403 H Lactic Acid Calcium Magnesium Iron TIBC Direct Bilirubin AST Alkaline Phosphatase Troponin T C-Reactive Protein Total Protein Albumin LDL Cholesterol Direct HDL Cholesterol Vitamin B12 Folate TSH Urine WBC (Auto) Urine Creatinine Urine Total Protein CHESTER Screen CHESTER Titer Complement C3 Complement C4 02/11/19 02/11/19 02/11/19 04:54 04:54 05:40 WBC 12.5 H RBC 3.18 L Hgb 9.4 L Hct 29.4 L RDW 16.6 H Plt Count Seg Neuts % (Manual) 94.0 H Lymphocytes % (Manual) 4.0 L Seg Neutrophils # Man 11.8 H Lymphocytes # (Manual) 0.5 L PT INR APTT Thrombin Time POC ABG pH ABG pH POC ABG pCO2 POC ABG pO2 ABG pO2 ABG HCO3 ABG O2 Saturation ABG Base Excess ABG Hemoglobin Oxyhemoglobin Sodium 151 H Potassium Chloride 112.6 H Carbon Dioxide BUN 127 H Creatinine 1.8 H Glucose 396 H POC Glucose 410 H Lactic Acid Calcium 8.3 L Magnesium Iron TIBC Direct Bilirubin AST Alkaline Phosphatase 132 H Troponin T C-Reactive Protein Total Protein Albumin 2.1 L LDL Cholesterol Direct HDL Cholesterol Vitamin B12 Folate TSH Urine WBC (Auto) Urine Creatinine Urine Total Protein CHESTER Screen CHESTER Titer Complement C3 Complement C4 02/11/19 02/11/19 02/11/19 11:30 17:58 23:18 WBC RBC Hgb Hct RDW Plt Count Seg Neuts % (Manual) Lymphocytes % (Manual) Seg Neutrophils # Man Lymphocytes # (Manual) PT INR APTT Thrombin Time POC ABG pH ABG pH POC ABG pCO2 POC ABG pO2 ABG pO2 ABG HCO3 ABG O2 Saturation ABG Base Excess ABG Hemoglobin Oxyhemoglobin Sodium Potassium Chloride Carbon Dioxide BUN Creatinine Glucose POC Glucose 361 H 414 H 392 H Lactic Acid Calcium Magnesium Iron TIBC Direct Bilirubin AST Alkaline Phosphatase Troponin T C-Reactive Protein Total Protein Albumin LDL Cholesterol Direct HDL Cholesterol Vitamin B12 Folate TSH Urine WBC (Auto) Urine Creatinine Urine Total Protein CHESTER Screen CHESTER Titer Complement C3 Complement C4 02/12/19 02/12/19 02/12/19 05:32 05:36 05:36 WBC 11.9 H RBC 3.40 L Hgb 9.9 L Hct RDW 16.4 H Plt Count Seg Neuts % (Manual) 97.0 H Lymphocytes % (Manual) 2.0 L Seg Neutrophils # Man 11.5 H Lymphocytes # (Manual) 0.2 L PT INR APTT Thrombin Time POC ABG pH ABG pH POC ABG pCO2 POC ABG pO2 ABG pO2 ABG HCO3 ABG O2 Saturation ABG Base Excess ABG Hemoglobin Oxyhemoglobin Sodium 146 H Potassium 3.5 L Chloride 110.2 H Carbon Dioxide BUN 118 H Creatinine 1.4 H Glucose 382 H POC Glucose 361 H Lactic Acid Calcium 8.3 L Magnesium Iron TIBC Direct Bilirubin AST Alkaline Phosphatase 137 H Troponin T C-Reactive Protein Total Protein Albumin 2.0 L LDL Cholesterol Direct HDL Cholesterol Vitamin B12 Folate TSH Urine WBC (Auto) Urine Creatinine Urine Total Protein CHESTER Screen CHESTER Titer Complement C3 Complement C4 02/12/19 02/12/19 02/12/19 11:51 17:18 21:46 WBC RBC Hgb Hct RDW Plt Count Seg Neuts % (Manual) Lymphocytes % (Manual) Seg Neutrophils # Man Lymphocytes # (Manual) PT INR APTT Thrombin Time POC ABG pH ABG pH POC ABG pCO2 POC ABG pO2 ABG pO2 ABG HCO3 ABG O2 Saturation ABG Base Excess ABG Hemoglobin Oxyhemoglobin Sodium Potassium Chloride Carbon Dioxide BUN Creatinine Glucose POC Glucose 357 H 280 H 222 H Lactic Acid Calcium Magnesium Iron TIBC Direct Bilirubin AST Alkaline Phosphatase Troponin T C-Reactive Protein Total Protein Albumin LDL Cholesterol Direct HDL Cholesterol Vitamin B12 Folate TSH Urine WBC (Auto) Urine Creatinine Urine Total Protein CHE[place] Screen CHE[place] Titer Complement C3 Complement C4 02/12/19 02/13/19 02/13/19 23:58 03:41 03:41 WBC 11.6 H RBC 3.53 L Hgb Hct RDW 15.8 H Plt Count 98 L Seg Neuts % (Manual) 97.0 H Lymphocytes % (Manual) 2.0 L Seg Neutrophils # Man 11.3 H Lymphocytes # (Manual) 0.2 L PT INR APTT Thrombin Time POC ABG pH ABG pH POC ABG pCO2 POC ABG pO2 ABG pO2 ABG HCO3 ABG O2 Saturation ABG Base Excess ABG Hemoglobin Oxyhemoglobin Sodium Potassium 3.4 L Chloride 109.7 H Carbon Dioxide BUN 108 H Creatinine Glucose 182 H POC Glucose 208 H Lactic Acid Calcium Magnesium Iron TIBC Direct Bilirubin AST 45 H Alkaline Phosphatase 150 H Troponin T C-Reactive Protein Total Protein Albumin 1.8 L LDL Cholesterol Direct HDL Cholesterol Vitamin B12 Folate TSH Urine WBC (Auto) Urine Creatinine Urine Total Protein [place] Screen [place] Titer Complement C3 Complement C4 02/13/19 02/13/19 02/13/19 05:40 11:31 18:01 WBC RBC Hgb Hct RDW Plt Count Seg Neuts % (Manual) Lymphocytes % (Manual) Seg Neutrophils # Man Lymphocytes # (Manual) PT INR APTT Thrombin Time POC ABG pH ABG pH POC ABG pCO2 POC ABG pO2 ABG pO2 ABG HCO3 ABG O2 Saturation ABG Base Excess ABG Hemoglobin Oxyhemoglobin Sodium Potassium Chloride Carbon Dioxide BUN Creatinine Glucose POC Glucose 179 H 193 H 151 H Lactic Acid Calcium Magnesium Iron TIBC Direct Bilirubin AST Alkaline Phosphatase Troponin T C-Reactive Protein Total Protein Albumin LDL Cholesterol Direct HDL Cholesterol Vitamin B12 Folate TSH Urine WBC (Auto) Urine Creatinine Urine Total Protein [place] Screen [place] Titer Complement C3 Complement C4 02/13/19 02/14/19 02/14/19 23:47 04:03 04:03 WBC RBC Hgb Hct RDW 16.0 H Plt Count Seg Neuts % (Manual) 94.0 H Lymphocytes % (Manual) 2.0 L Seg Neutrophils # Man 8.9 H Lymphocytes # (Manual) 0.2 L PT INR APTT Thrombin Time POC ABG pH ABG pH POC ABG pCO2 POC ABG pO2 ABG pO2 ABG HCO3 ABG O2 Saturation ABG Base Excess ABG Hemoglobin Oxyhemoglobin Sodium Potassium 3.4 L Chloride 108.7 H Carbon Dioxide 21 L BUN 96 H Creatinine Glucose 129 H POC Glucose 144 H Lactic Acid Calcium 8.2 L Magnesium Iron TIBC Direct Bilirubin AST 65 H Alkaline Phosphatase 164 H Troponin T C-Reactive Protein Total Protein Albumin 1.7 L LDL Cholesterol Direct HDL Cholesterol Vitamin B12 Folate TSH Urine WBC (Auto) Urine Creatinine Urine Total Protein [place] Screen [place] Titer Complement C3 Complement C4 02/14/19 02/14/19 02/14/19 04:03 05:10 11:51 WBC RBC Hgb Hct RDW Plt Count Seg Neuts % (Manual) Lymphocytes % (Manual) Seg Neutrophils # Man Lymphocytes # (Manual) PT INR APTT Thrombin Time POC ABG pH ABG pH POC ABG pCO2 POC ABG pO2 ABG pO2 ABG HCO3 ABG O2 Saturation ABG Base Excess ABG Hemoglobin Oxyhemoglobin Sodium Potassium Chloride Carbon Dioxide BUN Creatinine Glucose POC Glucose 145 H 192 H Lactic Acid Calcium Magnesium 1.60 L Iron TIBC Direct Bilirubin AST Alkaline Phosphatase Troponin T C-Reactive Protein Total Protein Albumin LDL Cholesterol Direct HDL Cholesterol Vitamin B12 Folate TSH Urine WBC (Auto) Urine Creatinine Urine Total Protein [place] Screen [place] Titer Complement C3 Complement C4 02/14/19 02/14/19 02/15/19 17:42 23:33 05:33 WBC RBC Hgb Hct RDW 15.9 H Plt Count Seg Neuts % (Manual) 95.0 H Lymphocytes % (Manual) 1.0 L Seg Neutrophils # Man 7.9 H Lymphocytes # (Manual) 0.1 L PT INR APTT Thrombin Time POC ABG pH ABG pH POC ABG pCO2 POC ABG pO2 ABG pO2 ABG HCO3 ABG O2 Saturation ABG Base Excess ABG Hemoglobin Oxyhemoglobin Sodium Potassium Chloride Carbon Dioxide BUN Creatinine Glucose POC Glucose 229 H 204 H Lactic Acid Calcium Magnesium Iron TIBC Direct Bilirubin AST Alkaline Phosphatase Troponin T C-Reactive Protein Total Protein Albumin LDL Cholesterol Direct HDL Cholesterol Vitamin B12 Folate TSH Urine WBC (Auto) Urine Creatinine Urine Total Protein [place] Screen [place] Titer Complement C3 Complement C4 02/15/19 02/15/19 02/15/19 05:33 05:41 12:30 WBC RBC Hgb Hct RDW Plt Count Seg Neuts % (Manual) Lymphocytes % (Manual) Seg Neutrophils # Man Lymphocytes # (Manual) PT INR APTT Thrombin Time POC ABG pH ABG pH POC ABG pCO2 POC ABG pO2 ABG pO2 ABG HCO3 ABG O2 Saturation ABG Base Excess ABG Hemoglobin Oxyhemoglobin Sodium Potassium Chloride 108.2 H Carbon Dioxide BUN 91 H Creatinine Glucose 197 H POC Glucose 209 H 168 H Lactic Acid Calcium 8.2 L Magnesium Iron TIBC Direct Bilirubin AST 61 H Alkaline Phosphatase 215 H Troponin T C-Reactive Protein Total Protein Albumin 1.9 L LDL Cholesterol Direct HDL Cholesterol Vitamin B12 Folate TSH Urine WBC (Auto) Urine Creatinine Urine Total Protein [place] Screen [place] Titer Complement C3 Complement C4 02/15/19 02/15/19 02/16/19 18:17 23:53 04:58 WBC RBC Hgb Hct RDW 15.7 H Plt Count Seg Neuts % (Manual) 93.0 H Lymphocytes % (Manual) 5.0 L Seg Neutrophils # Man Lymphocytes # (Manual) 0.4 L PT INR APTT Thrombin Time POC ABG pH ABG pH POC ABG pCO2 POC ABG pO2 ABG pO2 ABG HCO3 ABG O2 Saturation ABG Base Excess ABG Hemoglobin Oxyhemoglobin Sodium Potassium Chloride Carbon Dioxide BUN Creatinine Glucose POC Glucose 161 H 160 H Lactic Acid Calcium Magnesium Iron TIBC Direct Bilirubin AST Alkaline Phosphatase Troponin T C-Reactive Protein Total Protein Albumin LDL Cholesterol Direct HDL Cholesterol Vitamin B12 Folate TSH Urine WBC (Auto) Urine Creatinine Urine Total Protein [place] Screen [place] Titer Complement C3 Complement C4 02/16/19 02/16/19 02/16/19 04:58 12:27 17:08 WBC RBC Hgb Hct RDW Plt Count Seg Neuts % (Manual) Lymphocytes % (Manual) Seg Neutrophils # Man Lymphocytes # (Manual) PT INR APTT Thrombin Time POC ABG pH ABG pH POC ABG pCO2 POC ABG pO2 ABG pO2 ABG HCO3 ABG O2 Saturation ABG Base Excess ABG Hemoglobin Oxyhemoglobin Sodium Potassium Chloride 108.3 H Carbon Dioxide BUN 90 H Creatinine Glucose 126 H POC Glucose 125 H 180 H Lactic Acid Calcium 8.1 L Magnesium Iron TIBC Direct Bilirubin AST 52 H Alkaline Phosphatase 188 H Troponin T C-Reactive Protein Total Protein Albumin 2.0 L LDL Cholesterol Direct HDL Cholesterol Vitamin B12 Folate TSH Urine WBC (Auto) Urine Creatinine Urine Total Protein [place] Screen [place] Titer Complement C3 Complement C4 02/16/19 02/16/19 02/17/19 21:52 23:51 04:43 WBC RBC 3.48 L Hgb Hct RDW 15.8 H Plt Count Seg Neuts % (Manual) 87.0 H Lymphocytes % (Manual) 6.0 L Seg Neutrophils # Man Lymphocytes # (Manual) 0.5 L PT INR APTT Thrombin Time POC ABG pH ABG pH POC ABG pCO2 POC ABG pO2 ABG pO2 ABG HCO3 ABG O2 Saturation ABG Base Excess ABG Hemoglobin Oxyhemoglobin Sodium Potassium Chloride Carbon Dioxide BUN Creatinine Glucose POC Glucose 177 H 161 H Lactic Acid Calcium Magnesium Iron TIBC Direct Bilirubin AST Alkaline Phosphatase Troponin T C-Reactive Protein Total Protein Albumin LDL Cholesterol Direct HDL Cholesterol Vitamin B12 Folate TSH Urine WBC (Auto) Urine Creatinine Urine Total Protein [place] Screen [place] Titer Complement C3 Complement C4 02/17/19 02/17/19 02/17/19 04:43 05:05 18:16 WBC RBC Hgb Hct RDW Plt Count Seg Neuts % (Manual) Lymphocytes % (Manual) Seg Neutrophils # Man Lymphocytes # (Manual) PT INR APTT Thrombin Time POC ABG pH ABG pH POC ABG pCO2 POC ABG pO2 ABG pO2 ABG HCO3 ABG O2 Saturation ABG Base Excess ABG Hemoglobin Oxyhemoglobin Sodium Potassium Chloride 110.2 H Carbon Dioxide 21 L BUN 90 H Creatinine Glucose 164 H POC Glucose 166 H 123 H Lactic Acid Calcium 8.2 L Magnesium Iron TIBC Direct Bilirubin AST 59 H Alkaline Phosphatase 224 H Troponin T C-Reactive Protein Total Protein 6.2 L Albumin 1.9 L LDL Cholesterol Direct HDL Cholesterol Vitamin B12 Folate TSH Urine WBC (Auto) Urine Creatinine Urine Total Protein [place] Screen [place] Titer Complement C3 Complement C4 02/17/19 02/18/19 02/18/19 22:15 00:14 05:23 WBC RBC Hgb Hct RDW Plt Count Seg Neuts % (Manual) Lymphocytes % (Manual) Seg Neutrophils # Man Lymphocytes # (Manual) PT INR APTT Thrombin Time POC ABG pH ABG pH POC ABG pCO2 POC ABG pO2 ABG pO2 ABG HCO3 ABG O2 Saturation ABG Base Excess ABG Hemoglobin Oxyhemoglobin Sodium Potassium Chloride Carbon Dioxide BUN Creatinine Glucose POC Glucose 135 H 142 H 175 H Lactic Acid Calcium Magnesium Iron TIBC Direct Bilirubin AST Alkaline Phosphatase Troponin T C-Reactive Protein Total Protein Albumin LDL Cholesterol Direct HDL Cholesterol Vitamin B12 Folate TSH Urine WBC (Auto) Urine Creatinine Urine Total Protein [place] Screen [place] Titer Complement C3 Complement C4 02/18/19 11:20 WBC RBC Hgb Hct RDW Plt Count Seg Neuts % (Manual) Lymphocytes % (Manual) Seg Neutrophils # Man Lymphocytes # (Manual) PT INR APTT Thrombin Time POC ABG pH ABG pH POC ABG pCO2 POC ABG pO2 ABG pO2 ABG HCO3 ABG O2 Saturation ABG Base Excess ABG Hemoglobin Oxyhemoglobin Sodium Potassium Chloride Carbon Dioxide BUN Creatinine Glucose POC Glucose 139 H Lactic Acid Calcium Magnesium Iron TIBC Direct Bilirubin AST Alkaline Phosphatase Troponin T C-Reactive Protein Total Protein Albumin LDL Cholesterol Direct HDL Cholesterol Vitamin B12 Folate TSH Urine WBC (Auto) Urine Creatinine Urine Total Protein [place] Screen [place] Titer Complement C3 Complement C4
[2019-02-18] MEDS: INSULIN GLARGINE 100 UNITS/ML SUB-Q SCH (21:47)
[2019-02-18] MEDS: ACETAMINOPHEN 325 MG TAB PO PRN (21:56)
[2019-02-19] MEDS: dilTIAZem 60 MG TAB PO SCH ×4 (01:37→18:41)
[2019-02-19] MEDS: IPRATROPIUM/ALBUTEROL SULFATE 3 ML AMPUL.NEB IH SCH ×4 (01:42→19:28)
[2019-02-19] MEDS: INSULIN REGULAR, HUMAN 100 UNITS/1 ML SUB-Q SCH ×5 (06:38→18:36)
[2019-02-19] MEDS: LEVOTHYROXINE 125 MCG TAB PO SCH (09:31)
[2019-02-19] MEDS: FOLIC ACID 1 MG TAB PO SCH (09:31)
[2019-02-19] MEDS: FAMOTIDINE 20 MG TAB PO SCH ×2 (09:31→21:36)
[2019-02-19] MEDS: MULTIVITAMINS 5 ML ORAL LIQUID PO SCH (09:31)
[2019-02-19] MEDS: dexAMETHasone 4 MG/ML VIAL IV SCH ×2 (09:32→21:36)
--- NOTE | 2019-02-19 12:27 | XRay Report ---
ABDOMEN 1 VIEW(S) INDICATION / CLINICAL INFORMATION: Feeding tube placement. COMPARISON: Chest x-ray on 02/12/2019. FINDINGS: TUBES / LINES: The tip of the feeding tube projects over the distal stomach. BOWEL GAS PATTERN/EXTRALUMINAL GAS: No significant abnormality. No pneumatosis or secondary signs of free air. ADDITIONAL FINDINGS: No significant additional findings. IMPRESSION: Feeding tube tip projects over the distal stomach. Signer Name: Yao Buitrago MD Signed: 02/19/2019 12:23 PM Workstation Name: [id number]
[2019-02-19] MEDS: ACETAMINOPHEN 325 MG TAB PO PRN (13:08)
[2019-02-19] MEDS: hydrALAZINE 20 MG/1 ML INJ IV PRN (15:33)
[2019-02-19] MEDS ORDERED: fentaNYL 100 MCG/2 ML INJ IV PRN (16:20)
--- NOTE | 2019-02-19 19:19 | Progress Note ---
Assessment and Plan Imp: 1. Neck cellulitis versus LAD 2. Bacteremia 3. Severe sepsis 4. DIANA 5. Hyperkalemia 6. Lactic acidosis 7. Acute respiratory failure, hypoxia 8. Metabolic encephalopathy 9. 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 ? SLE 12. Acute CVA Rec: 1. ABX finished per ID; steno in sputum likely colonizer 2. Off IVFs 3. Off all sedation 4. No vegetations on TERRENCE 5. PSV daily; concerned she will not be able to clear her airway -> agree with/await trach & PEG 6. TFs, Pepcid, SCDs 7. Labs in AM 8. Plan change to PO steroids on 02/20/19 No family present CCt 31 minutes Subjective Date of service: 02/19/19 Principal diagnosis: h/o low plt Interval history: No events. No fevers. Awake, alert. Answers questions. Moves RUE and RLE. Marleen erating PSV 05/25. Active Medications Acetaminophen (Tylenol) 650 mg PO Q4H PRN PRN Reason: Pain MILD(1-3)/Fever >100.5/VALENZUELA Last Admin: 02/19/19 13:08 Dose: 650 mg Documented by: Albuterol (Proventil) 2.5 mg IH Q4HRT PRN PRN Reason: Shortness Of Breath Albuterol/Ipratropium (Duoneb *Not For Prn Use*) 1 ampul IH Q6HRT [facility] Last Admin: 02/19/19 13:00 Dose: 1 ampul Documented by: Lipase/Protease/Amylase (Carola Hammond 10,500 Unit) 1 each FEEDTUBE PRN PRN PRN Reason: For Clogged Feeding Tube Last Admin: 02/13/19 21:35 Dose: 1 each Documented by: Dexamethasone (Decadron) 2 mg IV Q12HR [facility] Last Admin: 02/19/19 09:32 Dose: 2 mg Documented by: Diltiazem HCl (Cardizem) 60 mg PO Q6H [facility] Last Admin: 02/19/19 18:41 Dose: 60 mg Documented by: Famotidine (Pepcid) 20 mg PO BID [facility] Last Admin: 02/19/19 09:31 Dose: 20 mg Documented by: Fentanyl (Sublimaze) 50 mcg IV ONCE PRN PRN Reason: Pain , Severe (7-10) Folic Acid (Folvite) 1 mg PO QDAY [facility] Last Admin: 02/19/19 09:31 Dose: 1 mg Documented by: Hydralazine HCl (Apresoline) 10 mg IV Q6H PRN PRN Reason: Hypertension Last Admin: 02/19/19 15:33 Dose: 10 mg Documented by: Hydrophilic Ointment (Vaseline Lip Therapy) 1 applic TP Q2HR PRN PRN Reason: Dry Lips Last Admin: 02/02/19 16:50 Dose: 1 applic Documented by: Insulin Glargine (Lantus) 30 units SUB-Q QHS [facility] Last Admin: 02/18/19 21:47 Dose: 30 units Documented by: Insulin Human Regular (Humulin R) 0 units SUB-Q Q6HR [facility]; Protocol Last Admin: 02/19/19 18:36 Dose: Not Given Documented by: Levothyroxine Sodium (Synthroid) 125 mcg PO QAM [facility] Last Admin: 02/19/19 09:31 Dose: 125 mcg Documented by: Multi-Ingred Cream/Lotion/Oil/Oint (Artificial Tears Ophth Oint) 1 applic OU Q4HR PRN PRN Reason: Dry Eye(s) Last Admin: 02/08/19 21:18 Dose: 1 applic Documented by: Multivitamins (Centrum Liq) 5 ml PO QDAY [facility] Last Admin: 02/19/19 09:31 Dose: 5 ml Documented by: Ondansetron HCl (Zofran) 4 mg IV Q8H PRN PRN Reason: Nausea And Vomiting Simple Syrup (Simple Syrup) 15 ml FEEDTUBE PRN PRN PRN Reason: Hypoglycemia Simple Syrup (Simple Syrup) 30 ml FEEDTUBE PRN PRN PRN Reason: Hypoglycemia Sodium Bicarbonate (Sodium Bicarbonate) 325 mg FEEDTUBE PRN PRN PRN Reason: For Clogged Feeding Tube Last Admin: 02/13/19 21:35 Dose: 325 mg Documented by: Sodium Chloride (Sodium Chloride Flush Syringe 10 Ml) 10 ml IV BID [facility] Last Admin: 02/19/19 09:32 Dose: 10 ml Documented by: Sodium Chloride (Sodium Chloride Flush Syringe 10 Ml) 10 ml IV PRN PRN PRN Reason: LINE FLUSH Objective Vital Signs - 12hr 02/19/19 02/19/19 02/19/19 07:30 07:41 07:46 Temperature Pulse Rate 58 L 68 68 Pulse Rate [ From Monitor] Pulse Rate [ Posterior Throughout] Pulse Rate [ Right Radial] Respiratory 16 22 Rate Respiratory Rate [Posterior Throughout] Blood Pressure 135/75 135/75 135/75 O2 Sat by Pulse 100 100 100 Oximetry 02/19/19 02/19/19 02/19/19 07:49 08:00 08:31 Temperature 98.5 F Pulse Rate 59 L 80 Pulse Rate [ 56 L From Monitor] Pulse Rate [ 67 Posterior Throughout] Pulse Rate [ 56 L Right Radial] Respiratory 14 24 Rate Respiratory 21 Rate [Posterior Throughout] Blood Pressure 141/77 167/97 O2 Sat by Pulse 100 100 Oximetry 02/19/19 02/19/19 02/19/19 09:00 09:30 10:00 Temperature Pulse Rate 75 59 L 58 L Pulse Rate [ From Monitor] Pulse Rate [ Posterior Throughout] Pulse Rate [ Right Radial] Respiratory 16 14 14 Rate Respiratory Rate [Posterior Throughout] Blood Pressure 157/94 144/81 138/79 O2 Sat by Pulse 100 100 100 Oximetry 02/19/19 02/19/19 02/19/19 10:04 10:30 11:01 Temperature Pulse Rate 58 L 56 L 65 Pulse Rate [ From Monitor] Pulse Rate [ Posterior Throughout] Pulse Rate [ Right Radial] Respiratory 14 13 14 Rate Respiratory Rate [Posterior Throughout] Blood Pressure 138/79 142/79 160/88 O2 Sat by Pulse 100 100 100 Oximetry 02/19/19 02/19/19 02/19/19 11:31 12:00 12:30 Temperature 98.9 F Pulse Rate 81 77 84 Pulse Rate [ 77 From Monitor] Pulse Rate [ Posterior Throughout] Pulse Rate [ 77 Right Radial] Respiratory 20 14 22 Rate Respiratory Rate [Posterior Throughout] Blood Pressure 174/101 160/106 172/94 O2 Sat by Pulse 99 100 100 Oximetry 02/19/19 02/19/19 02/19/19 12:50 13:00 13:16 Temperature Pulse Rate 66 83 76 Pulse Rate [ From Monitor] Pulse Rate [ 85 Posterior Throughout] Pulse Rate [ Right Radial] Respiratory 22 23 Rate Respiratory 20 Rate [Posterior Throughout] Blood Pressure 166/98 166/98 172/94 O2 Sat by Pulse 100 100 Oximetry 02/19/19 02/19/19 02/19/19 13:30 14:00 14:30 Temperature Pulse Rate 73 61 62 Pulse Rate [ From Monitor] Pulse Rate [ Posterior Throughout] Pulse Rate [ Right Radial] Respiratory 21 14 14 Rate Respiratory Rate [Posterior Throughout] Blood Pressure 145/75 123/66 116/68 O2 Sat by Pulse 100 100 100 Oximetry 02/19/19 02/19/19 02/19/19 15:00 15:30 15:33 Temperature Pulse Rate 62 91 H 85 Pulse Rate [ From Monitor] Pulse Rate [ Posterior Throughout] Pulse Rate [ Right Radial] Respiratory 16 27 H Rate Respiratory Rate [Posterior Throughout] Blood Pressure 130/67 182/107 180/104 O2 Sat by Pulse 100 100 Oximetry 02/19/19 02/19/19 02/19/19 16:00 16:25 16:30 Temperature 98.6 F Pulse Rate 100 H 70 68 Pulse Rate [ 84 From Monitor] Pulse Rate [ Posterior Throughout] Pulse Rate [ 84 Right Radial] Respiratory 18 16 16 Rate Respiratory Rate [Posterior Throughout] Blood Pressure 185/104 138/79 139/73 O2 Sat by Pulse 100 100 100 Oximetry 02/19/19 02/19/19 02/19/19 17:00 17:30 18:00 Temperature Pulse Rate 74 68 65 Pulse Rate [ From Monitor] Pulse Rate [ Posterior Throughout] Pulse Rate [ Right Radial] Respiratory 16 16 15 Rate Respiratory Rate [Posterior Throughout] Blood Pressure 135/80 139/75 137/75 O2 Sat by Pulse 98 100 100 Oximetry 02/19/19 18:41 Temperature Pulse Rate 85 Pulse Rate [ From Monitor] Pulse Rate [ Posterior Throughout] Pulse Rate [ Right Radial] Respiratory Rate Respiratory Rate [Posterior Throughout] Blood Pressure 159/87 O2 Sat by Pulse Oximetry Constitutional: other (orally intubated on mechanical ventilator. Not on sedation, awake, critically ill) Eyes: non-icteric ENT: oropharynx moist Neck: supple Effort: normal Ascultation: Bilateral: other (coarse BS bilaterally) Cardiovascular: regular rate and rhythm (no mrg) Gastrointestinal: normoactive bowel sounds, soft, non-tender, non-distended Integumentary: normal Extremities: no cyanosis, no edema, pink and warm Neurologic: other (L sided hemiparesis) Psychiatric: mood appropriate, affect normal CBC and BMP: 02/17/19 04:43 02/17/19 04:43 ABG, PT/INR, D-dimer: ABG POC ABG pH 7.418 (7.35-7.45) 02/12/19 05:36 ABG pH 7.440 pH Units (7.350-7.450) 02/11/19 04:10 POC ABG pCO2 36.9 (35-45) 02/12/19 05:36 ABG pCO2 37.4 mm Hg 02/11/19 04:10 POC ABG pO2 92 (80-105) 02/12/19 05:36 ABG pO2 69.4 mm Hg (80.0-90.0) L 02/11/19 04:10 POC ABG HCO3 23.8 (22-26 mml/L) 02/12/19 05:36 POC ABG Total CO2 25 (23-27mmol/L) 02/12/19 05:36 POC ABG O2 Sat 97 02/12/19 05:36 ABG O2 Saturation 94.2 % (95.0-99.0) L 02/11/19 04:10 PT/INR, D-dimer PT 16.3 Sec. (12.2-14.9) H 02/06/19 07:35 INR 1.35 (0.87-1.13) H 02/06/19 07:35 Abnormal lab findings: Abnormal Labs 02/01/19 02/01/19 02/01/19 07:16 07:16 07:16 WBC 17.7 H RBC Hgb Hct RDW 16.9 H Plt Count 62 L Seg Neuts % (Manual) 95.0 H Lymphocytes % (Manual) 0 L Seg Neutrophils # Man 16.8 H Lymphocytes # (Manual) 0.0 L PT 15.0 H INR 1.21 H APTT Thrombin Time 20.0 H POC ABG pH ABG pH POC ABG pCO2 POC ABG pO2 ABG pO2 ABG HCO3 ABG O2 Saturation ABG Base Excess ABG Hemoglobin Oxyhemoglobin Sodium 135 L Potassium Chloride 97.7 L Carbon Dioxide 19 L BUN 51 H Creatinine 4.5 H Glucose 112 H POC Glucose Lactic Acid Calcium Magnesium Iron TIBC Direct Bilirubin AST Alkaline Phosphatase Troponin T 0.181 H* C-Reactive Protein Total Protein Albumin LDL Cholesterol Direct 34 L HDL Cholesterol 20 L Vitamin B12 Folate TSH Urine WBC (Auto) Urine Creatinine Urine Total Protein [place] Screen [place] Titer Complement C3 Complement C4 02/01/19 02/01/19 02/01/19 07:29 07:29 07:43 WBC RBC Hgb Hct RDW Plt Count Seg Neuts % (Manual) Lymphocytes % (Manual) Seg Neutrophils # Man Lymphocytes # (Manual) PT INR APTT Thrombin Time POC ABG pH ABG pH POC ABG pCO2 POC ABG pO2 ABG pO2 ABG HCO3 ABG O2 Saturation ABG Base Excess ABG Hemoglobin Oxyhemoglobin Sodium Potassium Chloride Carbon Dioxide BUN Creatinine Glucose POC Glucose Lactic Acid 4.80 H* Calcium Magnesium Iron TIBC Direct Bilirubin 0.7 H AST 42 H Alkaline Phosphatase Troponin T C-Reactive Protein Total Protein 8.9 H Albumin 2.3 L LDL Cholesterol Direct HDL Cholesterol Vitamin B12 Folate TSH 8.470 H Urine WBC (Auto) Urine Creatinine Urine Total Protein [place] Screen [place] Titer Complement C3 Complement C4 02/01/19 02/01/19 02/01/19 09:45 11:32 13:50 WBC RBC Hgb Hct RDW Plt Count Seg Neuts % (Manual) Lymphocytes % (Manual) Seg Neutrophils # Man Lymphocytes # (Manual) PT INR APTT Thrombin Time POC ABG pH 7.289 L ABG pH POC ABG pCO2 POC ABG pO2 355 H ABG pO2 ABG HCO3 ABG O2 Saturation ABG Base Excess ABG Hemoglobin Oxyhemoglobin Sodium Potassium Chloride Carbon Dioxide BUN Creatinine Glucose POC Glucose Lactic Acid 4.10 H* Calcium Magnesium Iron TIBC Direct Bilirubin AST Alkaline Phosphatase Troponin T C-Reactive Protein Total Protein Albumin LDL Cholesterol Direct HDL Cholesterol Vitamin B12 Folate TSH Urine WBC (Auto) 16.0 H Urine Creatinine Urine Total Protein [place] Screen [place] Titer Complement C3 Complement C4 02/01/19 02/01/19 02/01/19 15:15 16:20 16:51 WBC RBC Hgb Hct RDW Plt Count Seg Neuts % (Manual) Lymphocytes % (Manual) Seg Neutrophils # Man Lymphocytes # (Manual) PT INR APTT Thrombin Time POC ABG pH ABG pH POC ABG pCO2 POC ABG pO2 ABG pO2 ABG HCO3 ABG O2 Saturation ABG Base Excess ABG Hemoglobin Oxyhemoglobin Sodium Potassium Chloride Carbon Dioxide BUN Creatinine Glucose POC Glucose 115 H Lactic Acid 4.50 H* Calcium Magnesium Iron TIBC Direct Bilirubin AST Alkaline Phosphatase Troponin T C-Reactive Protein Total Protein Albumin LDL Cholesterol Direct HDL Cholesterol Vitamin B12 Folate TSH Urine WBC (Auto) Urine Creatinine Urine Total Protein [place] Screen [place] Titer Complement C3 36 L Complement C4 02/01/19 02/01/19 02/01/19 16:51 17:03 17:04 WBC RBC Hgb Hct RDW Plt Count Seg Neuts % (Manual) Lymphocytes % (Manual) Seg Neutrophils # Man Lymphocytes # (Manual) PT INR APTT Thrombin Time POC ABG pH ABG pH POC ABG pCO2 POC ABG pO2 ABG pO2 ABG HCO3 ABG O2 Saturation ABG Base Excess ABG Hemoglobin Oxyhemoglobin Sodium Potassium Chloride Carbon Dioxide BUN Creatinine Glucose POC Glucose Lactic Acid 2.80 H* Calcium Magnesium Iron TIBC Direct Bilirubin AST Alkaline Phosphatase Troponin T C-Reactive Protein 32.30 H Total Protein Albumin LDL Cholesterol Direct HDL Cholesterol Vitamin B12 Folate TSH Urine WBC (Auto) Urine Creatinine Urine Total Protein [place] Screen [place] Titer Complement C3 Complement C4 12 L 02/01/19 02/01/19 02/02/19 17:04 19:28 05:16 WBC RBC Hgb Hct RDW Plt Count Seg Neuts % (Manual) Lymphocytes % (Manual) Seg Neutrophils # Man Lymphocytes # (Manual) PT INR APTT Thrombin Time POC ABG pH ABG pH POC ABG pCO2 POC ABG pO2 148 H ABG pO2 ABG HCO3 ABG O2 Saturation ABG Base Excess ABG Hemoglobin Oxyhemoglobin Sodium Potassium Chloride 107.1 H Carbon Dioxide 18 L BUN 52 H Creatinine 3.1 H Glucose 120 H POC Glucose Lactic Acid Calcium 7.4 L Magnesium Iron TIBC Direct Bilirubin AST Alkaline Phosphatase Troponin T C-Reactive Protein Total Protein Albumin LDL Cholesterol Direct HDL Cholesterol Vitamin B12 Folate TSH Urine WBC (Auto) Urine Creatinine Urine Total Protein [place] Screen Positive H CHE[place] Titer 1:320 H Complement C3 Complement C4 02/02/19 02/02/19 02/03/19 05:53 05:53 03:30 WBC 14.3 H RBC 5.16 H Hgb 14.9 H Hct 46.2 H D RDW 16.9 H 17.0 H Plt Count 43 L 18 L* Seg Neuts % (Manual) 93.0 H Lymphocytes % (Manual) 2.0 L Seg Neutrophils # Man 13.3 H Lymphocytes # (Manual) 0.3 L PT INR APTT Thrombin Time POC ABG pH ABG pH POC ABG pCO2 POC ABG pO2 ABG pO2 ABG HCO3 ABG O2 Saturation ABG Base Excess ABG Hemoglobin Oxyhemoglobin Sodium Potassium 5.1 H Chloride Carbon Dioxide 21 L BUN 57 H Creatinine 3.3 H Glucose 147 H POC Glucose Lactic Acid Calcium 7.5 L Magnesium Iron TIBC Direct Bilirubin AST 51 H Alkaline Phosphatase Troponin T C-Reactive Protein Total Protein Albumin 1.6 L LDL Cholesterol Direct HDL Cholesterol Vitamin B12 Folate TSH Urine WBC (Auto) Urine Creatinine Urine Total Protein [place] Screen [place] Titer Complement C3 Complement C4 02/03/19 02/03/19 02/03/19 03:30 05:55 14:42 WBC RBC Hgb Hct RDW Plt Count Seg Neuts % (Manual) Lymphocytes % (Manual) Seg Neutrophils # Man Lymphocytes # (Manual) PT INR APTT Thrombin Time POC ABG pH ABG pH POC ABG pCO2 POC ABG pO2 117 H ABG pO2 ABG HCO3 ABG O2 Saturation ABG Base Excess ABG Hemoglobin Oxyhemoglobin Sodium Potassium Chloride Carbon Dioxide BUN 65 H Creatinine 2.7 H Glucose 117 H POC Glucose Lactic Acid Calcium 7.2 L Magnesium Iron TIBC Direct Bilirubin AST Alkaline Phosphatase Troponin T C-Reactive Protein Total Protein Albumin LDL Cholesterol Direct HDL Cholesterol Vitamin B12 1468 H Folate TSH Urine WBC (Auto) Urine Creatinine Urine Total Protein [place] Screen [place] Titer Complement C3 Complement C4 02/03/19 02/03/19 02/03/19 14:42 14:42 14:42 WBC RBC 3.17 L Hgb 9.4 L D Hct 28.3 L D RDW 16.9 H Plt Count 18 L* Seg Neuts % (Manual) Lymphocytes % (Manual) Seg Neutrophils # Man Lymphocytes # (Manual) PT INR APTT Thrombin Time POC ABG pH ABG pH POC ABG pCO2 POC ABG pO2 ABG pO2 ABG HCO3 ABG O2 Saturation ABG Base Excess ABG Hemoglobin Oxyhemoglobin Sodium Potassium Chloride Carbon Dioxide BUN Creatinine Glucose POC Glucose Lactic Acid Calcium Magnesium Iron 11 L TIBC 88 L Direct Bilirubin AST Alkaline Phosphatase Troponin T C-Reactive Protein Total Protein Albumin LDL Cholesterol Direct HDL Cholesterol Vitamin B12 Folate 5.18 L TSH Urine WBC (Auto) Urine Creatinine Urine Total Protein [place] Screen [place] Titer Complement C3 Complement C4 02/03/19 02/03/19 02/04/19 14:42 14:42 03:35 WBC RBC 3.22 L Hgb 9.5 L Hct 28.5 L RDW 16.4 H Plt Count 18 L* Seg Neuts % (Manual) Lymphocytes % (Manual) Seg Neutrophils # Man Lymphocytes # (Manual) PT 15.8 H INR 1.29 H APTT 38.2 H Thrombin Time POC ABG pH ABG pH 7.470 H POC ABG pCO2 POC ABG pO2 ABG pO2 ABG HCO3 28.4 H ABG O2 Saturation ABG Base Excess 4.5 H ABG Hemoglobin 10.1 L Oxyhemoglobin 94.7 L Sodium Potassium Chloride Carbon Dioxide BUN Creatinine Glucose POC Glucose Lactic Acid Calcium Magnesium Iron TIBC Direct Bilirubin AST Alkaline Phosphatase Troponin T C-Reactive Protein Total Protein Albumin LDL Cholesterol Direct HDL Cholesterol Vitamin B12 Folate TSH Urine WBC (Auto) Urine Creatinine Urine Total Protein [place] Screen [place] Titer Complement C3 Complement C4 02/04/19 02/04/19 02/05/19 05:02 05:02 03:50 WBC RBC Hgb Hct RDW 16.5 H Plt Count 20 L Seg Neuts % (Manual) 94.0 H Lymphocytes % (Manual) 2.0 L Seg Neutrophils # Man 9.2 H Lymphocytes # (Manual) 0.2 L PT INR APTT Thrombin Time POC ABG pH ABG pH 7.485 H POC ABG pCO2 POC ABG pO2 ABG pO2 ABG HCO3 27.5 H ABG O2 Saturation ABG Base Excess 3.9 H ABG Hemoglobin 9.1 L Oxyhemoglobin 94.8 L Sodium Potassium Chloride Carbon Dioxide BUN 66 H Creatinine 1.7 H Glucose 127 H POC Glucose Lactic Acid Calcium 7.6 L Magnesium Iron TIBC Direct Bilirubin AST Alkaline Phosphatase Troponin T C-Reactive Protein Total Protein Albumin LDL Cholesterol Direct HDL Cholesterol Vitamin B12 Folate TSH Urine WBC (Auto) Urine Creatinine Urine Total Protein [place] Screen [place] Titer Complement C3 Complement C4 02/05/19 02/05/19 02/05/19 13:02 14:36 20:03 WBC 11.7 H RBC 3.48 L 3.24 L Hgb 10.0 L 9.4 L Hct 29.2 L RDW 16.3 H 16.3 H Plt Count 50 L D 71 L Seg Neuts % (Manual) 95.0 H 95.0 H Lymphocytes % (Manual) 0 L 2.0 L Seg Neutrophils # Man 11.1 H 10.2 H Lymphocytes # (Manual) 0.0 L 0.2 L PT INR APTT Thrombin Time POC ABG pH ABG pH POC ABG pCO2 POC ABG pO2 ABG pO2 ABG HCO3 ABG O2 Saturation ABG Base Excess ABG Hemoglobin Oxyhemoglobin Sodium Potassium Chloride Carbon Dioxide BUN 67 H Creatinine 1.5 H Glucose POC Glucose Lactic Acid Calcium 7.7 L Magnesium Iron TIBC Direct Bilirubin AST Alkaline Phosphatase Troponin T C-Reactive Protein Total Protein Albumin LDL Cholesterol Direct HDL Cholesterol Vitamin B12 Folate TSH Urine WBC (Auto) Urine Creatinine Urine Total Protein [place] Screen [place] Titer Complement C3 Complement C4 02/06/19 02/06/19 02/06/19 05:39 07:35 18:34 WBC RBC Hgb Hct RDW Plt Count Seg Neuts % (Manual) Lymphocytes % (Manual) Seg Neutrophils # Man Lymphocytes # (Manual) PT 16.3 H INR 1.35 H APTT Thrombin Time POC ABG pH ABG pH POC ABG pCO2 POC ABG pO2 ABG pO2 ABG HCO3 ABG O2 Saturation ABG Base Excess ABG Hemoglobin Oxyhemoglobin Sodium Potassium Chloride Carbon Dioxide BUN Creatinine Glucose POC Glucose 107 H 121 H Lactic Acid Calcium Magnesium Iron TIBC Direct Bilirubin AST Alkaline Phosphatase Troponin T C-Reactive Protein Total Protein Albumin LDL Cholesterol Direct HDL Cholesterol Vitamin B12 Folate TSH Urine WBC (Auto) Urine Creatinine Urine Total Protein [place] Screen [place] Titer Complement C3 Complement C4 02/06/19 02/07/19 02/07/19 Unknown 01:07 04:15 WBC RBC Hgb Hct RDW Plt Count Seg Neuts % (Manual) Lymphocytes % (Manual) Seg Neutrophils # Man Lymphocytes # (Manual) PT INR APTT Thrombin Time POC ABG pH ABG pH POC ABG pCO2 POC ABG pO2 ABG pO2 ABG HCO3 ABG O2 Saturation ABG Base Excess ABG Hemoglobin 5.0 L Oxyhemoglobin 94.9 L 94.8 L Sodium 146 H Potassium Chloride Carbon Dioxide BUN 85 H Creatinine 1.8 H Glucose 163 H POC Glucose Lactic Acid Calcium 8.3 L Magnesium Iron TIBC Direct Bilirubin AST Alkaline Phosphatase Troponin T C-Reactive Protein Total Protein Albumin LDL Cholesterol Direct HDL Cholesterol Vitamin B12 Folate TSH Urine WBC (Auto) Urine Creatinine Urine Total Protein [place] Screen [place] Titer Complement C3 Complement C4 02/07/19 02/07/19 02/08/19 08:22 10:58 04:40 WBC RBC Hgb Hct RDW 16.0 H Plt Count 84 L Seg Neuts % (Manual) 97.0 H Lymphocytes % (Manual) 0 L Seg Neutrophils # Man 9.5 H Lymphocytes # (Manual) 0.0 L PT INR APTT Thrombin Time POC ABG pH 7.477 H ABG pH 7.467 H POC ABG pCO2 34.8 L POC ABG pO2 118 H ABG pO2 ABG HCO3 ABG O2 Saturation ABG Base Excess ABG Hemoglobin 8.4 L Oxyhemoglobin Sodium Potassium Chloride Carbon Dioxide BUN Creatinine Glucose POC Glucose Lactic Acid Calcium Magnesium Iron TIBC Direct Bilirubin AST Alkaline Phosphatase Troponin T C-Reactive Protein Total Protein Albumin LDL Cholesterol Direct HDL Cholesterol Vitamin B12 Folate TSH Urine WBC (Auto) Urine Creatinine Urine Total Protein [place] Screen [place] Titer Complement C3 Complement C4 02/09/19 02/09/19 02/09/19 03:17 03:17 04:35 WBC 14.9 H RBC 3.32 L Hgb 9.6 L Hct RDW 15.9 H Plt Count 113 L Seg Neuts % (Manual) 96.0 H Lymphocytes % (Manual) 1.0 L Seg Neutrophils # Man 14.3 H Lymphocytes # (Manual) 0.1 L PT INR APTT Thrombin Time POC ABG pH ABG pH 7.478 H POC ABG pCO2 POC ABG pO2 ABG pO2 94.5 H ABG HCO3 ABG O2 Saturation ABG Base Excess ABG Hemoglobin 6.1 L Oxyhemoglobin Sodium 147 H Potassium Chloride 110.4 H Carbon Dioxide BUN 114 H Creatinine 2.2 H Glucose 270 H POC Glucose Lactic Acid Calcium 8.1 L Magnesium Iron TIBC Direct Bilirubin AST Alkaline Phosphatase Troponin T C-Reactive Protein Total Protein Albumin 1.6 L LDL Cholesterol Direct HDL Cholesterol Vitamin B12 Folate TSH Urine WBC (Auto) Urine Creatinine Urine Total Protein [place] Screen [place] Titer Complement C3 Complement C4 02/09/19 02/09/19 02/10/19 13:35 18:54 05:13 WBC RBC Hgb Hct RDW Plt Count Seg Neuts % (Manual) Lymphocytes % (Manual) Seg Neutrophils # Man Lymphocytes # (Manual) PT INR APTT Thrombin Time POC ABG pH ABG pH 7.478 H POC ABG pCO2 POC ABG pO2 ABG pO2 ABG HCO3 ABG O2 Saturation ABG Base Excess ABG Hemoglobin 8.1 L Oxyhemoglobin 94.9 L Sodium Potassium Chloride Carbon Dioxide BUN Creatinine Glucose POC Glucose Lactic Acid Calcium Magnesium Iron TIBC Direct Bilirubin AST Alkaline Phosphatase Troponin T C-Reactive Protein Total Protein Albumin LDL Cholesterol Direct HDL Cholesterol Vitamin B12 Folate TSH Urine WBC (Auto) 10.0 H Urine Creatinine 92.9 H Urine Total Protein 116 H [place] Screen [place] Titer Complement C3 Complement C4 02/10/19 02/10/19 02/11/19 18:14 23:24 04:10 WBC RBC Hgb Hct RDW Plt Count Seg Neuts % (Manual) Lymphocytes % (Manual) Seg Neutrophils # Man Lymphocytes # (Manual) PT INR APTT Thrombin Time POC ABG pH ABG pH POC ABG pCO2 POC ABG pO2 ABG pO2 69.4 L ABG HCO3 ABG O2 Saturation 94.2 L ABG Base Excess ABG Hemoglobin 11.0 L Oxyhemoglobin 92.1 L Sodium Potassium Chloride Carbon Dioxide BUN Creatinine Glucose POC Glucose 453 H 403 H Lactic Acid Calcium Magnesium Iron TIBC Direct Bilirubin AST Alkaline Phosphatase Troponin T C-Reactive Protein Total Protein Albumin LDL Cholesterol Direct HDL Cholesterol Vitamin B12 Folate TSH Urine WBC (Auto) Urine Creatinine Urine Total Protein [place] Screen [place] Titer Complement C3 Complement C4 02/11/19 02/11/19 02/11/19 04:54 04:54 05:40 WBC 12.5 H RBC 3.18 L Hgb 9.4 L Hct 29.4 L RDW 16.6 H Plt Count Seg Neuts % (Manual) 94.0 H Lymphocytes % (Manual) 4.0 L Seg Neutrophils # Man 11.8 H Lymphocytes # (Manual) 0.5 L PT INR APTT Thrombin Time POC ABG pH ABG pH POC ABG pCO2 POC ABG pO2 ABG pO2 ABG HCO3 ABG O2 Saturation ABG Base Excess ABG Hemoglobin Oxyhemoglobin Sodium 151 H Potassium Chloride 112.6 H Carbon Dioxide BUN 127 H Creatinine 1.8 H Glucose 396 H POC Glucose 410 H Lactic Acid Calcium 8.3 L Magnesium Iron TIBC Direct Bilirubin AST Alkaline Phosphatase 132 H Troponin T C-Reactive Protein Total Protein Albumin 2.1 L LDL Cholesterol Direct HDL Cholesterol Vitamin B12 Folate TSH Urine WBC (Auto) Urine Creatinine Urine Total Protein [place] Screen [place] Titer Complement C3 Complement C4 02/11/19 02/11/19 02/11/19 11:30 17:58 23:18 WBC RBC Hgb Hct RDW Plt Count Seg Neuts % (Manual) Lymphocytes % (Manual) Seg Neutrophils # Man Lymphocytes # (Manual) PT INR APTT Thrombin Time POC ABG pH ABG pH POC ABG pCO2 POC ABG pO2 ABG pO2 ABG HCO3 ABG O2 Saturation ABG Base Excess ABG Hemoglobin Oxyhemoglobin Sodium Potassium Chloride Carbon Dioxide BUN Creatinine Glucose POC Glucose 361 H 414 H 392 H Lactic Acid Calcium Magnesium Iron TIBC Direct Bilirubin AST Alkaline Phosphatase Troponin T C-Reactive Protein Total Protein Albumin LDL Cholesterol Direct HDL Cholesterol Vitamin B12 Folate TSH Urine WBC (Auto) Urine Creatinine Urine Total Protein [place] Screen [place] Titer Complement C3 Complement C4 02/12/19 02/12/19 02/12/19 05:32 05:36 05:36 WBC 11.9 H RBC 3.40 L Hgb 9.9 L Hct RDW 16.4 H Plt Count Seg Neuts % (Manual) 97.0 H Lymphocytes % (Manual) 2.0 L Seg Neutrophils # Man 11.5 H Lymphocytes # (Manual) 0.2 L PT INR APTT Thrombin Time POC ABG pH ABG pH POC ABG pCO2 POC ABG pO2 ABG pO2 ABG HCO3 ABG O2 Saturation ABG Base Excess ABG Hemoglobin Oxyhemoglobin Sodium 146 H Potassium 3.5 L Chloride 110.2 H Carbon Dioxide BUN 118 H Creatinine 1.4 H Glucose 382 H POC Glucose 361 H Lactic Acid Calcium 8.3 L Magnesium Iron TIBC Direct Bilirubin AST Alkaline Phosphatase 137 H Troponin T C-Reactive Protein Total Protein Albumin 2.0 L LDL Cholesterol Direct HDL Cholesterol Vitamin B12 Folate TSH Urine WBC (Auto) Urine Creatinine Urine Total Protein CHESTER Screen CHESTER Titer Complement C3 Complement C4 02/12/19 02/12/19 02/12/19 11:51 17:18 21:46 WBC RBC Hgb Hct RDW Plt Count Seg Neuts % (Manual) Lymphocytes % (Manual) Seg Neutrophils # Man Lymphocytes # (Manual) PT INR APTT Thrombin Time POC ABG pH ABG pH POC ABG pCO2 POC ABG pO2 ABG pO2 ABG HCO3 ABG O2 Saturation ABG Base Excess ABG Hemoglobin Oxyhemoglobin Sodium Potassium Chloride Carbon Dioxide BUN Creatinine Glucose POC Glucose 357 H 280 H 222 H Lactic Acid Calcium Magnesium Iron TIBC Direct Bilirubin AST Alkaline Phosphatase Troponin T C-Reactive Protein Total Protein Albumin LDL Cholesterol Direct HDL Cholesterol Vitamin B12 Folate TSH Urine WBC (Auto) Urine Creatinine Urine Total Protein CHESTER Screen CHESTER Titer Complement C3 Complement C4 02/12/19 02/13/19 02/13/19 23:58 03:41 03:41 WBC 11.6 H RBC 3.53 L Hgb Hct RDW 15.8 H Plt Count 98 L Seg Neuts % (Manual) 97.0 H Lymphocytes % (Manual) 2.0 L Seg Neutrophils # Man 11.3 H Lymphocytes # (Manual) 0.2 L PT INR APTT Thrombin Time POC ABG pH ABG pH POC ABG pCO2 POC ABG pO2 ABG pO2 ABG HCO3 ABG O2 Saturation ABG Base Excess ABG Hemoglobin Oxyhemoglobin Sodium Potassium 3.4 L Chloride 109.7 H Carbon Dioxide BUN 108 H Creatinine Glucose 182 H POC Glucose 208 H Lactic Acid Calcium Magnesium Iron TIBC Direct Bilirubin AST 45 H Alkaline Phosphatase 150 H Troponin T C-Reactive Protein Total Protein Albumin 1.8 L LDL Cholesterol Direct HDL Cholesterol Vitamin B12 Folate TSH Urine WBC (Auto) Urine Creatinine Urine Total Protein CHE[place] Screen CHE[place] Titer Complement C3 Complement C4 02/13/19 02/13/19 02/13/19 05:40 11:31 18:01 WBC RBC Hgb Hct RDW Plt Count Seg Neuts % (Manual) Lymphocytes % (Manual) Seg Neutrophils # Man Lymphocytes # (Manual) PT INR APTT Thrombin Time POC ABG pH ABG pH POC ABG pCO2 POC ABG pO2 ABG pO2 ABG HCO3 ABG O2 Saturation ABG Base Excess ABG Hemoglobin Oxyhemoglobin Sodium Potassium Chloride Carbon Dioxide BUN Creatinine Glucose POC Glucose 179 H 193 H 151 H Lactic Acid Calcium Magnesium Iron TIBC Direct Bilirubin AST Alkaline Phosphatase Troponin T C-Reactive Protein Total Protein Albumin LDL Cholesterol Direct HDL Cholesterol Vitamin B12 Folate TSH Urine WBC (Auto) Urine Creatinine Urine Total Protein CHESTER Screen CHESTER Titer Complement C3 Complement C4 02/13/19 02/14/19 02/14/19 23:47 04:03 04:03 WBC RBC Hgb Hct RDW 16.0 H Plt Count Seg Neuts % (Manual) 94.0 H Lymphocytes % (Manual) 2.0 L Seg Neutrophils # Man 8.9 H Lymphocytes # (Manual) 0.2 L PT INR APTT Thrombin Time POC ABG pH ABG pH POC ABG pCO2 POC ABG pO2 ABG pO2 ABG HCO3 ABG O2 Saturation ABG Base Excess ABG Hemoglobin Oxyhemoglobin Sodium Potassium 3.4 L Chloride 108.7 H Carbon Dioxide 21 L BUN 96 H Creatinine Glucose 129 H POC Glucose 144 H Lactic Acid Calcium 8.2 L Magnesium Iron TIBC Direct Bilirubin AST 65 H Alkaline Phosphatase 164 H Troponin T C-Reactive Protein Total Protein Albumin 1.7 L LDL Cholesterol Direct HDL Cholesterol Vitamin B12 Folate TSH Urine WBC (Auto) Urine Creatinine Urine Total Protein [place] Screen [place] Titer Complement C3 Complement C4 02/14/19 02/14/19 02/14/19 04:03 05:10 11:51 WBC RBC Hgb Hct RDW Plt Count Seg Neuts % (Manual) Lymphocytes % (Manual) Seg Neutrophils # Man Lymphocytes # (Manual) PT INR APTT Thrombin Time POC ABG pH ABG pH POC ABG pCO2 POC ABG pO2 ABG pO2 ABG HCO3 ABG O2 Saturation ABG Base Excess ABG Hemoglobin Oxyhemoglobin Sodium Potassium Chloride Carbon Dioxide BUN Creatinine Glucose POC Glucose 145 H 192 H Lactic Acid Calcium Magnesium 1.60 L Iron TIBC Direct Bilirubin AST Alkaline Phosphatase Troponin T C-Reactive Protein Total Protein Albumin LDL Cholesterol Direct HDL Cholesterol Vitamin B12 Folate TSH Urine WBC (Auto) Urine Creatinine Urine Total Protein [place] Screen [place] Titer Complement C3 Complement C4 02/14/19 02/14/19 02/15/19 17:42 23:33 05:33 WBC RBC Hgb Hct RDW 15.9 H Plt Count Seg Neuts % (Manual) 95.0 H Lymphocytes % (Manual) 1.0 L Seg Neutrophils # Man 7.9 H Lymphocytes # (Manual) 0.1 L PT INR APTT Thrombin Time POC ABG pH ABG pH POC ABG pCO2 POC ABG pO2 ABG pO2 ABG HCO3 ABG O2 Saturation ABG Base Excess ABG Hemoglobin Oxyhemoglobin Sodium Potassium Chloride Carbon Dioxide BUN Creatinine Glucose POC Glucose 229 H 204 H Lactic Acid Calcium Magnesium Iron TIBC Direct Bilirubin AST Alkaline Phosphatase Troponin T C-Reactive Protein Total Protein Albumin LDL Cholesterol Direct HDL Cholesterol Vitamin B12 Folate TSH Urine WBC (Auto) Urine Creatinine Urine Total Protein [place] Screen [place] Titer Complement C3 Complement C4 02/15/19 02/15/19 02/15/19 05:33 05:41 12:30 WBC RBC Hgb Hct RDW Plt Count Seg Neuts % (Manual) Lymphocytes % (Manual) Seg Neutrophils # Man Lymphocytes # (Manual) PT INR APTT Thrombin Time POC ABG pH ABG pH POC ABG pCO2 POC ABG pO2 ABG pO2 ABG HCO3 ABG O2 Saturation ABG Base Excess ABG Hemoglobin Oxyhemoglobin Sodium Potassium Chloride 108.2 H Carbon Dioxide BUN 91 H Creatinine Glucose 197 H POC Glucose 209 H 168 H Lactic Acid Calcium 8.2 L Magnesium Iron TIBC Direct Bilirubin AST 61 H Alkaline Phosphatase 215 H Troponin T C-Reactive Protein Total Protein Albumin 1.9 L LDL Cholesterol Direct HDL Cholesterol Vitamin B12 Folate TSH Urine WBC (Auto) Urine Creatinine Urine Total Protein [place] Screen [place] Titer Complement C3 Complement C4 08/29/19 08/29/19 08/30/19 18:17 23:53 04:58 WBC RBC Hgb Hct RDW 15.7 H Plt Count Seg Neuts % (Manual) 93.0 H Lymphocytes % (Manual) 5.0 L Seg Neutrophils # Man Lymphocytes # (Manual) 0.4 L PT INR APTT Thrombin Time POC ABG pH ABG pH POC ABG pCO2 POC ABG pO2 ABG pO2 ABG HCO3 ABG O2 Saturation ABG Base Excess ABG Hemoglobin Oxyhemoglobin Sodium Potassium Chloride Carbon Dioxide BUN Creatinine Glucose POC Glucose 161 H 160 H Lactic Acid Calcium Magnesium Iron TIBC Direct Bilirubin AST Alkaline Phosphatase Troponin T C-Reactive Protein Total Protein Albumin LDL Cholesterol Direct HDL Cholesterol Vitamin B12 Folate TSH Urine WBC (Auto) Urine Creatinine Urine Total Protein [place] Screen [place] Titer Complement C3 Complement C4 02/16/19 02/16/19 02/16/19 04:58 12:27 17:08 WBC RBC Hgb Hct RDW Plt Count Seg Neuts % (Manual) Lymphocytes % (Manual) Seg Neutrophils # Man Lymphocytes # (Manual) PT INR APTT Thrombin Time POC ABG pH ABG pH POC ABG pCO2 POC ABG pO2 ABG pO2 ABG HCO3 ABG O2 Saturation ABG Base Excess ABG Hemoglobin Oxyhemoglobin Sodium Potassium Chloride 108.3 H Carbon Dioxide BUN 90 H Creatinine Glucose 126 H POC Glucose 125 H 180 H Lactic Acid Calcium 8.1 L Magnesium Iron TIBC Direct Bilirubin AST 52 H Alkaline Phosphatase 188 H Troponin T C-Reactive Protein Total Protein Albumin 2.0 L LDL Cholesterol Direct HDL Cholesterol Vitamin B12 Folate TSH Urine WBC (Auto) Urine Creatinine Urine Total Protein [place] Screen [place] Titer Complement C3 Complement C4 02/16/19 02/16/19 02/17/19 21:52 23:51 04:43 WBC RBC 3.48 L Hgb Hct RDW 15.8 H Plt Count Seg Neuts % (Manual) 87.0 H Lymphocytes % (Manual) 6.0 L Seg Neutrophils # Man Lymphocytes # (Manual) 0.5 L PT INR APTT Thrombin Time POC ABG pH ABG pH POC ABG pCO2 POC ABG pO2 ABG pO2 ABG HCO3 ABG O2 Saturation ABG Base Excess ABG Hemoglobin Oxyhemoglobin Sodium Potassium Chloride Carbon Dioxide BUN Creatinine Glucose POC Glucose 177 H 161 H Lactic Acid Calcium Magnesium Iron TIBC Direct Bilirubin AST Alkaline Phosphatase Troponin T C-Reactive Protein Total Protein Albumin LDL Cholesterol Direct HDL Cholesterol Vitamin B12 Folate TSH Urine WBC (Auto) Urine Creatinine Urine Total Protein [place] Screen [place] Titer Complement C3 Complement C4 02/17/19 02/17/19 02/17/19 04:43 05:05 18:16 WBC RBC Hgb Hct RDW Plt Count Seg Neuts % (Manual) Lymphocytes % (Manual) Seg Neutrophils # Man Lymphocytes # (Manual) PT INR APTT Thrombin Time POC ABG pH ABG pH POC ABG pCO2 POC ABG pO2 ABG pO2 ABG HCO3 ABG O2 Saturation ABG Base Excess ABG Hemoglobin Oxyhemoglobin Sodium Potassium Chloride 110.2 H Carbon Dioxide 21 L BUN 90 H Creatinine Glucose 164 H POC Glucose 166 H 123 H Lactic Acid Calcium 8.2 L Magnesium Iron TIBC Direct Bilirubin AST 59 H Alkaline Phosphatase 224 H Troponin T C-Reactive Protein Total Protein 6.2 L Albumin 1.9 L LDL Cholesterol Direct HDL Cholesterol Vitamin B12 Folate TSH Urine WBC (Auto) Urine Creatinine Urine Total Protein [place] Screen [place] Titer Complement C3 Complement C4 02/17/19 02/18/19 02/18/19 22:15 00:14 05:23 WBC RBC Hgb Hct RDW Plt Count Seg Neuts % (Manual) Lymphocytes % (Manual) Seg Neutrophils # Man Lymphocytes # (Manual) PT INR APTT Thrombin Time POC ABG pH ABG pH POC ABG pCO2 POC ABG pO2 ABG pO2 ABG HCO3 ABG O2 Saturation ABG Base Excess ABG Hemoglobin Oxyhemoglobin Sodium Potassium Chloride Carbon Dioxide BUN Creatinine Glucose POC Glucose 135 H 142 H 175 H Lactic Acid Calcium Magnesium Iron TIBC Direct Bilirubin AST Alkaline Phosphatase Troponin T C-Reactive Protein Total Protein Albumin LDL Cholesterol Direct HDL Cholesterol Vitamin B12 Folate TSH Urine WBC (Auto) Urine Creatinine Urine Total Protein CHE[place] Screen CHE[place] Titer Complement C3 Complement C4 02/18/19 02/18/19 02/18/19 11:20 17:14 22:03 WBC RBC Hgb Hct RDW Plt Count Seg Neuts % (Manual) Lymphocytes % (Manual) Seg Neutrophils # Man Lymphocytes # (Manual) PT INR APTT Thrombin Time POC ABG pH ABG pH POC ABG pCO2 POC ABG pO2 ABG pO2 ABG HCO3 ABG O2 Saturation ABG Base Excess ABG Hemoglobin Oxyhemoglobin Sodium Potassium Chloride Carbon Dioxide BUN Creatinine Glucose POC Glucose 139 H 139 H 150 H Lactic Acid Calcium Magnesium Iron TIBC Direct Bilirubin AST Alkaline Phosphatase Troponin T C-Reactive Protein Total Protein Albumin LDL Cholesterol Direct HDL Cholesterol Vitamin B12 Folate TSH Urine WBC (Auto) Urine Creatinine Urine Total Protein CHE[place] Screen [place] Titer Complement C3 Complement C4 02/18/19 02/19/19 02/19/19 23:53 05:15 11:19 WBC RBC Hgb Hct RDW Plt Count Seg Neuts % (Manual) Lymphocytes % (Manual) Seg Neutrophils # Man Lymphocytes # (Manual) PT INR APTT Thrombin Time POC ABG pH ABG pH POC ABG pCO2 POC ABG pO2 ABG pO2 ABG HCO3 ABG O2 Saturation ABG Base Excess ABG Hemoglobin Oxyhemoglobin Sodium Potassium Chloride Carbon Dioxide BUN Creatinine Glucose POC Glucose 140 H 161 H 146 H Lactic Acid Calcium Magnesium Iron TIBC Direct Bilirubin AST Alkaline Phosphatase Troponin T C-Reactive Protein Total Protein Albumin LDL Cholesterol Direct HDL Cholesterol Vitamin B12 Folate TSH Urine WBC (Auto) Urine Creatinine Urine Total Protein [place] Screen [place] Titer Complement C3 Complement C4 02/19/19 17:34 WBC RBC Hgb Hct RDW Plt Count Seg Neuts % (Manual) Lymphocytes % (Manual) Seg Neutrophils # Man Lymphocytes # (Manual) PT INR APTT Thrombin Time POC ABG pH ABG pH POC ABG pCO2 POC ABG pO2 ABG pO2 ABG HCO3 ABG O2 Saturation ABG Base Excess ABG Hemoglobin Oxyhemoglobin Sodium Potassium Chloride Carbon Dioxide BUN Creatinine Glucose POC Glucose 133 H Lactic Acid Calcium Magnesium Iron TIBC Direct Bilirubin AST Alkaline Phosphatase Troponin T C-Reactive Protein Total Protein Albumin LDL Cholesterol Direct HDL Cholesterol Vitamin B12 Folate TSH Urine WBC (Auto) Urine Creatinine Urine Total Protein CHE[place] Screen CHESTER Titer Complement C3 Complement C4 Chest x-ray: report reviewed, image reviewed (improving RLL aeration)
[2019-02-19] MEDS: INSULIN GLARGINE 100 UNITS/ML SUB-Q SCH (21:37)
[2019-02-19] MEDS: LIP THERAPY VASELINE TP PRN (21:54)
[2019-02-20] MEDS: dilTIAZem 60 MG TAB PO SCH ×4 (01:00→18:29)
[2019-02-20] MEDS: INSULIN REGULAR, HUMAN 100 UNITS/1 ML SUB-Q SCH ×4 (01:00→18:27)
[2019-02-20] MEDS: IPRATROPIUM/ALBUTEROL SULFATE 3 ML AMPUL.NEB IH SCH ×4 (02:04→19:46)
--- NOTE | 2019-02-20 06:10 | Progress Note ---
Assessment and Plan - Severe sepsis with Strep pneumoniae bacteremia, pneumonia and meningitis: TERRENCE was negative for vegetations per cardiology. csf CULTURES Negative ID signed off, Patient to complete 14 days of abx. continue with Ceftriaxone Steroids per Rv Detailer - Acute respiratory failure on MV > 96 hours cont vent mx. per pulmonology Bronhcodilators Not Weaning off the vent. 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 would benefit from CTA H/N when renal function improves carotid doppleR- NEGATIVE ASPIRIN PER NEUROLOGY will start after trach and peg Some improvement in motor function Able to move her hands. - History of lupus? families is unclear on this medical history, but know that she has some form of autoimmune disease Compliments are reduced, CHESTER is positive, highly suspect lupus cont steroids Rheumatology evaluation outpatient - Acute metabolic encephalopathy Likely due to sepsis, EEG neg for seizure, neuro input appreciated - Type 2 CA SSI Glucerna - Hypothyroidism TSH elevated, synthroid dose increased -repeat TFTs in 4-6 wks - Hypokalemia Still supplement -Atrial fibrillation with RVR Management per Cardiology -PFO Per cardiology -Thrombocytopenia Resolved - Acute encephalopathy: secondary to meningitis. MRI brain showed acute ischemic changes in the posterior distribution of the R MCA, right frontal and parietal deep white matter and left frontal deep white matter, additional foci of ischemic change in b/l cerebellar hemispheres. - DVT PPx SCD only. No anticoagulation b/c Thrombocytopenia and GI with pepcid - Code status: Full code The high probability of a clinically significant, sudden or life threatening deterioration of the [CARDIAC, NEUROLOGY, PULMONARY] system(s) required my full and direct attention, intervention and personal management. The aggregate critical care time was [45] minutes. This time is in addition to time spent performing reported procedures but includes the following: [X] Data Review and interpretation [X] Patient assessment and monitoring of vital signs [X] Documentation [X] Medication orders and management Subjective Date of service: 02/19/19 Principal diagnosis: h/o low plt Interval history: Per hx 'Patient was altered and was not able to give history. History obtained from her son and her sister. 53-year-old -[place] female with past medical history significant for hypothyroidism, hypertension, autoimmune disease was brought via EMS to the emergency department with c/o of altered mental status. Night prior to adL night she went out with family for dinner and she was confused, she was barely speaking, difficulty of finding words. EMS was called and patient refused to come to the hospital. This morning the patient was found in her bed unresponsive by her son called EMS and brought her to the hospital. Patient had cough for a month, she had sore throat for a week and had pain on swallowing and didn't eat anything last night. " Objective - Constitutional Vitals: Vital Signs - 12hr 02/19/19 02/19/19 02/19/19 18:30 18:41 19:00 Temperature Pulse Rate 87 85 97 H Pulse Rate [ Anterior Bilateral Throughout] Pulse Rate [ From Monitor] Pulse Rate [ Posterior Throughout] Pulse Rate [ Right Radial] Respiratory 23 29 H Rate Respiratory Rate [Anterior Bilateral Throughout] Respiratory Rate [Posterior Throughout] Blood Pressure 159/87 159/87 172/105 O2 Sat by Pulse 100 99 Oximetry 02/19/19 02/19/19 02/19/19 19:29 19:30 19:32 Temperature Pulse Rate 89 88 Pulse Rate [ 84 Anterior Bilateral Throughout] Pulse Rate [ From Monitor] Pulse Rate [ Posterior Throughout] Pulse Rate [ Right Radial] Respiratory 24 25 H Rate Respiratory 22 Rate [Anterior Bilateral Throughout] Respiratory Rate [Posterior Throughout] Blood Pressure 159/87 157/85 O2 Sat by Pulse 99 99 Oximetry 02/19/19 02/19/19 02/19/19 20:00 20:30 21:00 Temperature 98.9 F Pulse Rate 78 72 69 Pulse Rate [ Anterior Bilateral Throughout] Pulse Rate [ 78 From Monitor] Pulse Rate [ Posterior Throughout] Pulse Rate [ 78 Right Radial] Respiratory 19 17 17 Rate Respiratory Rate [Anterior Bilateral Throughout] Respiratory Rate [Posterior Throughout] Blood Pressure 148/81 144/77 136/77 O2 Sat by Pulse 99 100 100 Oximetry 02/19/19 02/19/19 02/19/19 21:02 21:30 22:00 Temperature Pulse Rate 72 76 68 Pulse Rate [ Anterior Bilateral Throughout] Pulse Rate [ From Monitor] Pulse Rate [ Posterior Throughout] Pulse Rate [ Right Radial] Respiratory 17 17 15 Rate Respiratory Rate [Anterior Bilateral Throughout] Respiratory Rate [Posterior Throughout] Blood Pressure 136/77 144/80 142/94 O2 Sat by Pulse 100 100 100 Oximetry 02/19/19 02/19/19 02/19/19 22:30 23:00 23:10 Temperature Pulse Rate 71 72 70 Pulse Rate [ Anterior Bilateral Throughout] Pulse Rate [ From Monitor] Pulse Rate [ Posterior Throughout] Pulse Rate [ Right Radial] Respiratory 14 15 2 L Rate Respiratory Rate [Anterior Bilateral Throughout] Respiratory Rate [Posterior Throughout] Blood Pressure 157/83 161/87 155/85 O2 Sat by Pulse 100 100 100 Oximetry 02/19/19 02/19/19 02/20/19 23:15 23:30 00:00 Temperature 97.3 F L Pulse Rate 68 67 Pulse Rate [ Anterior Bilateral Throughout] Pulse Rate [ 67 From Monitor] Pulse Rate [ Posterior Throughout] Pulse Rate [ 67 Right Radial] Respiratory 14 15 Rate Respiratory Rate [Anterior Bilateral Throughout] Respiratory Rate [Posterior Throughout] Blood Pressure 155/85 155/82 O2 Sat by Pulse 100 100 Oximetry 02/20/19 02/20/19 02/20/19 00:30 01:00 01:30 Temperature Pulse Rate 73 77 78 Pulse Rate [ Anterior Bilateral Throughout] Pulse Rate [ From Monitor] Pulse Rate [ Posterior Throughout] Pulse Rate [ Right Radial] Respiratory 17 18 18 Rate Respiratory Rate [Anterior Bilateral Throughout] Respiratory Rate [Posterior Throughout] Blood Pressure 162/88 164/92 154/85 O2 Sat by Pulse 100 100 100 Oximetry 02/20/19 02/20/19 02/20/19 01:50 02:00 02:30 Temperature Pulse Rate 70 70 Pulse Rate [ 68 Anterior Bilateral Throughout] Pulse Rate [ From Monitor] Pulse Rate [ 70 Posterior Throughout] Pulse Rate [ Right Radial] Respiratory 16 16 Rate Respiratory 16 Rate [Anterior Bilateral Throughout] Respiratory 18 Rate [Posterior Throughout] Blood Pressure 146/80 155/84 O2 Sat by Pulse 100 100 Oximetry 02/20/19 02/20/19 02/20/19 03:00 03:30 03:42 Temperature 98.9 F Pulse Rate 71 73 Pulse Rate [ Anterior Bilateral Throughout] Pulse Rate [ From Monitor] Pulse Rate [ Posterior Throughout] Pulse Rate [ Right Radial] Respiratory 16 14 Rate Respiratory Rate [Anterior Bilateral Throughout] Respiratory Rate [Posterior Throughout] Blood Pressure 151/86 158/91 O2 Sat by Pulse 100 100 Oximetry 02/20/19 02/20/19 02/20/19 03:59 04:00 04:30 Temperature Pulse Rate 71 74 66 Pulse Rate [ Anterior Bilateral Throughout] Pulse Rate [ From Monitor] Pulse Rate [ Posterior Throughout] Pulse Rate [ Right Radial] Respiratory 2 L 14 14 Rate Respiratory Rate [Anterior Bilateral Throughout] Respiratory Rate [Posterior Throughout] Blood Pressure 158/92 158/92 168/90 O2 Sat by Pulse 100 100 100 Oximetry 02/20/19 05:00 Temperature Pulse Rate 67 Pulse Rate [ Anterior Bilateral Throughout] Pulse Rate [ From Monitor] Pulse Rate [ Posterior Throughout] Pulse Rate [ Right Radial] Respiratory 16 Rate Respiratory Rate [Anterior Bilateral Throughout] Respiratory Rate [Posterior Throughout] Blood Pressure 159/85 O2 Sat by Pulse 100 Oximetry General appearance: Present: mild distress, well-nourished, other (Intubated) - EENT Eyes: PERRL, EOM intact ENT: hearing intact, clear oral mucosa Ears: bilateral: normal - Neck Neck: supple, normal ROM - Respiratory Respiratory effort: normal Respiratory: bilateral: CTA - Breasts Breasts: normal - Cardiovascular Heart rate: 78 Rhythm: regular Heart Sounds: Present: S1 & S2. Absent: gallop, rub Extremities: pulses intact, No edema, normal color, Full ROM - Gastrointestinal General gastrointestinal: Present: soft, non-tender, non-distended, normal bowel sounds Rectal Exam: deferred - Genitourinary Female genitourinary: normal - Integumentary Integumentary: clear, warm, dry - Musculoskeletal Musculoskeletal: 1, strength equal bilaterally - Neurologic Neurologic: moves all extremities - Psychiatric Psychiatric: memory intact, appropriate mood/affect, intact judgment & insight - Allied health notes Allied health notes reviewed: nursing, case management - Labs CBC & Chem 7: 02/17/19 04:43 02/17/19 04:43 Labs: Abnormal lab results 02/19/19 02/19/19 02/20/19 Range/Units 11:19 17:34 01:11 POC Glucose 146 H 133 H 137 H (70-105) 02/20/19 Range/Units 05:40 POC Glucose 150 H (70-105)
[2019-02-20 08:08] LABS: Hematocrit 30.4 % (30.3-42.9); Mean Corpuscular HGB Conc 33 % (30-34); Mean Corpuscular Volume 91 fl (79-97); Platelet Count 193 K/mm3 (140-440); Red Blood Count 3.34 M/mm3 (3.65-5.03); Red Cell Distribution Width 16.4 % (13.2-15.2)
[2019-02-20 08:21] LABS: BUN/Creatinine Ratio 93; Blood Urea Nitrogen 84 mg/dL (7-17); Calcium 8.4 mg/dL (8.4-10.2); Hemolysis Index 2
[2019-02-20 09:27] LABS: Band Neutrophils # (Manual) 0.3 K/mm3; Basophils % (Manual) 0 % (0.0-1.8); Eosinophils % (Manual) 0 % (0.0-4.3); Total Cells Counted 100
[2019-02-20 09:28] LABS: Schistocytes 1+
[2019-02-20 09:29] LABS: Platelet Estimate Consistent w Auto; Target Cells Rare
[2019-02-20] MEDS: FOLIC ACID 1 MG TAB PO SCH (10:19)
[2019-02-20] MEDS: LEVOTHYROXINE 125 MCG TAB PO SCH (10:19)
[2019-02-20] MEDS: FAMOTIDINE 20 MG TAB PO SCH ×2 (10:19→21:52)
[2019-02-20] MEDS: MULTIVITAMINS 5 ML ORAL LIQUID PO SCH (10:19)
[2019-02-20] MEDS: dexAMETHasone 4 MG/ML VIAL IV SCH ×2 (10:19→21:52)
[2019-02-20] MEDS: hydrALAZINE 20 MG/1 ML INJ IV PRN (11:38)
[2019-02-20] MEDS: ACETAMINOPHEN 325 MG TAB PO PRN ×2 (11:41→21:52)
--- NOTE | 2019-02-20 13:46 | Progress Note ---
Assessment and Plan Imp: 1. Neck cellulitis versus LAD 2. Bacteremia 3. Severe sepsis 4. DIANA 5. Hyperkalemia 6. Lactic acidosis 7. Acute respiratory failure, hypoxia 8. Metabolic encephalopathy 9. 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 ? SLE 12. Acute CVA Rec: 1. ABX finished per ID; steno in sputum likely colonizer 2. Off IVFs 3. Off all sedation 4. No vegetations on TERRENCE 5. PSV daily; concerned she will not be able to clear her airway -> agree with/await trach & PEG which are scheduled for 02/21/19 per chart 6. TFs, Pepcid, SCDs 7. Plan change to PO steroids once PEG is placed and usable 8. Complex decision-making No family present Subjective Date of service: 02/20/19 Principal diagnosis: h/o low plt Interval history: No events. No fevers. Awake, alert. Answers questions. Moves RUE and RLE. Tolerating PSV 03/25. Active Medications Acetaminophen (Tylenol) 650 mg PO Q4H PRN PRN Reason: Pain MILD(1-3)/Fever >100.5/VALENZUELA Last Admin: 02/20/19 11:41 Dose: 650 mg Documented by: Albuterol (Proventil) 2.5 mg IH Q4HRT PRN PRN Reason: Shortness Of Breath Albuterol/Ipratropium (Duoneb *Not For Prn Use*) 1 ampul IH Q6HRT [facility] Last Admin: 02/20/19 07:38 Dose: 1 ampul Documented by: Lipase/Protease/Amylase (Carola Hammond 10,500 Unit) 1 each FEEDTUBE PRN PRN PRN Reason: For Clogged Feeding Tube Last Admin: 02/13/19 21:35 Dose: 1 each Documented by: Dexamethasone (Decadron) 2 mg IV Q12HR [facility] Last Admin: 02/20/19 10:19 Dose: 2 mg Documented by: Diltiazem HCl (Cardizem) 60 mg PO Q6H [facility] Last Admin: 02/20/19 11:41 Dose: 60 mg Documented by: Famotidine (Pepcid) 20 mg PO BID [facility] Last Admin: 02/20/19 10:19 Dose: 20 mg Documented by: Fentanyl (Sublimaze) 50 mcg IV ONCE PRN PRN Reason: Pain , Severe (7-10) Folic Acid (Folvite) 1 mg PO QDAY [facility] Last Admin: 02/20/19 10:19 Dose: 1 mg Documented by: Hydralazine HCl (Apresoline) 10 mg IV Q6H PRN PRN Reason: Hypertension Last Admin: 02/20/19 11:38 Dose: 10 mg Documented by: Hydrophilic Ointment (Vaseline Lip Therapy) 1 applic TP Q2HR PRN PRN Reason: Dry Lips Last Admin: 02/19/19 21:54 Dose: 1 applic Documented by: Insulin Glargine (Lantus) 30 units SUB-Q QHS [facility] Last Admin: 02/19/19 21:37 Dose: 30 units Documented by: Insulin Human Regular (Humulin R) 0 units SUB-Q Q6HR [facility]; Protocol Last Admin: 02/20/19 06:10 Dose: Not Given Documented by: Levothyroxine Sodium (Synthroid) 125 mcg PO QAM [facility] Last Admin: 02/20/19 10:19 Dose: 125 mcg Documented by: Multi-Ingred Cream/Lotion/Oil/Oint (Artificial Tears Ophth Oint) 1 applic OU Q4HR PRN PRN Reason: Dry Eye(s) Last Admin: 02/08/19 21:18 Dose: 1 applic Documented by: Multivitamins (Centrum Liq) 5 ml PO QDAY [facility] Last Admin: 02/20/19 10:19 Dose: 5 ml Documented by: Ondansetron HCl (Zofran) 4 mg IV Q8H PRN PRN Reason: Nausea And Vomiting Simple Syrup (Simple Syrup) 15 ml FEEDTUBE PRN PRN PRN Reason: Hypoglycemia Simple Syrup (Simple Syrup) 30 ml FEEDTUBE PRN PRN PRN Reason: Hypoglycemia Sodium Bicarbonate (Sodium Bicarbonate) 325 mg FEEDTUBE PRN PRN PRN Reason: For Clogged Feeding Tube Last Admin: 02/13/19 21:35 Dose: 325 mg Documented by: Sodium Chloride (Sodium Chloride Flush Syringe 10 Ml) 10 ml IV BID [facility] Last Admin: 02/20/19 10:21 Dose: 10 ml Documented by: Sodium Chloride (Sodium Chloride Flush Syringe 10 Ml) 10 ml IV PRN PRN PRN Reason: LINE FLUSH Objective Vital Signs - 12hr 09/09/0502/20/19 02/20/19 01:50 02:00 02:30 Temperature Pulse Rate 70 70 Pulse Rate [ 68 Anterior Bilateral Throughout] Pulse Rate [ 70 Posterior Throughout] Respiratory 16 16 Rate Respiratory 16 Rate [Anterior Bilateral Throughout] Respiratory 18 Rate [Posterior Throughout] Blood Pressure 146/80 155/84 O2 Sat by Pulse 100 100 Oximetry 02/20/19 02/20/19 02/20/19 03:00 03:30 03:42 Temperature 98.9 F Pulse Rate 71 73 Pulse Rate [ Anterior Bilateral Throughout] Pulse Rate [ Posterior Throughout] Respiratory 16 14 Rate Respiratory Rate [Anterior Bilateral Throughout] Respiratory Rate [Posterior Throughout] Blood Pressure 151/86 158/91 O2 Sat by Pulse 100 100 Oximetry 02/20/19 02/20/19 02/20/19 03:59 04:00 04:30 Temperature Pulse Rate 71 74 66 Pulse Rate [ Anterior Bilateral Throughout] Pulse Rate [ Posterior Throughout] Respiratory 2 L 14 14 Rate Respiratory Rate [Anterior Bilateral Throughout] Respiratory Rate [Posterior Throughout] Blood Pressure 158/92 158/92 168/90 O2 Sat by Pulse 100 100 100 Oximetry 02/20/19 02/20/19 02/20/19 05:00 05:30 06:00 Temperature Pulse Rate 67 50 L 57 L Pulse Rate [ Anterior Bilateral Throughout] Pulse Rate [ Posterior Throughout] Respiratory 16 14 14 Rate Respiratory Rate [Anterior Bilateral Throughout] Respiratory Rate [Posterior Throughout] Blood Pressure 159/85 161/76 173/80 O2 Sat by Pulse 100 100 100 Oximetry 02/20/19 02/20/19 02/20/19 06:30 06:47 07:00 Temperature Pulse Rate 61 64 73 Pulse Rate [ Anterior Bilateral Throughout] Pulse Rate [ Posterior Throughout] Respiratory 14 19 Rate Respiratory Rate [Anterior Bilateral Throughout] Respiratory Rate [Posterior Throughout] Blood Pressure 161/83 158/87 157/90 O2 Sat by Pulse 100 100 Oximetry 02/20/19 02/20/19 02/20/19 07:30 07:33 07:36 Temperature Pulse Rate 77 70 70 Pulse Rate [ Anterior Bilateral Throughout] Pulse Rate [ Posterior Throughout] Respiratory 16 16 Rate Respiratory Rate [Anterior Bilateral Throughout] Respiratory Rate [Posterior Throughout] Blood Pressure 156/88 156/88 156/88 O2 Sat by Pulse 100 100 100 Oximetry 02/20/19 02/20/19 02/20/19 07:39 08:00 08:30 Temperature 98 F Pulse Rate 64 56 L Pulse Rate [ Anterior Bilateral Throughout] Pulse Rate [ 65 Posterior Throughout] Respiratory 13 13 Rate Respiratory Rate [Anterior Bilateral Throughout] Respiratory 15 Rate [Posterior Throughout] Blood Pressure 153/82 152/75 O2 Sat by Pulse 100 100 Oximetry 02/20/19 02/20/19 02/20/19 09:00 09:30 10:00 Temperature Pulse Rate 62 56 L 72 Pulse Rate [ Anterior Bilateral Throughout] Pulse Rate [ Posterior Throughout] Respiratory 11 L 13 15 Rate Respiratory Rate [Anterior Bilateral Throughout] Respiratory Rate [Posterior Throughout] Blood Pressure 148/80 147/79 165/90 O2 Sat by Pulse 100 100 100 Oximetry 02/20/19 02/20/19 02/20/19 10:30 11:00 11:38 Temperature Pulse Rate 84 99 H 92 H Pulse Rate [ Anterior Bilateral Throughout] Pulse Rate [ Posterior Throughout] Respiratory 19 28 H Rate Respiratory Rate [Anterior Bilateral Throughout] Respiratory Rate [Posterior Throughout] Blood Pressure 174/99 160/88 178/98 O2 Sat by Pulse 100 100 Oximetry 02/20/19 02/20/19 02/20/19 11:41 12:00 12:06 Temperature 97.4 F L Pulse Rate 98 H 72 Pulse Rate [ Anterior Bilateral Throughout] Pulse Rate [ Posterior Throughout] Respiratory 15 Rate Respiratory Rate [Anterior Bilateral Throughout] Respiratory Rate [Posterior Throughout] Blood Pressure 178/98 140/74 O2 Sat by Pulse 99 Oximetry Constitutional: other (orally intubated on mechanical ventilator. Not on sedation, awake, critically ill) Eyes: non-icteric ENT: oropharynx moist Neck: supple Effort: normal Ascultation: Bilateral: other (coarse BS bilaterally) Cardiovascular: regular rate and rhythm (no mrg) Gastrointestinal: normoactive bowel sounds, soft, non-tender, non-distended Integumentary: normal Extremities: no cyanosis, no edema, pink and warm Neurologic: other (L sided hemiparesis) Psychiatric: mood appropriate, affect normal CBC and BMP: 02/20/19 07:05 02/20/19 07:05 ABG, PT/INR, D-dimer: ABG POC ABG pH 7.418 (7.35-7.45) 02/12/19 05:36 ABG pH 7.440 pH Units (7.350-7.450) 02/11/19 04:10 POC ABG pCO2 36.9 (35-45) 02/12/19 05:36 ABG pCO2 37.4 mm Hg 02/11/19 04:10 POC ABG pO2 92 (80-105) 02/12/19 05:36 ABG pO2 69.4 mm Hg (80.0-90.0) L 02/11/19 04:10 POC ABG HCO3 23.8 (22-26 mml/L) 02/12/19 05:36 POC ABG Total CO2 25 (23-27mmol/L) 02/12/19 05:36 POC ABG O2 Sat 97 02/12/19 05:36 ABG O2 Saturation 94.2 % (95.0-99.0) L 02/11/19 04:10 PT/INR, D-dimer PT 16.3 Sec. (12.2-14.9) H 02/06/19 07:35 INR 1.35 (0.87-1.13) H 02/06/19 07:35 Abnormal lab findings: Abnormal Labs 02/01/19 02/01/19 02/01/19 07:16 07:16 07:16 WBC 17.7 H RBC Hgb Hct RDW 16.9 H Plt Count 62 L Seg Neuts % (Manual) 95.0 H Lymphocytes % (Manual) 0 L Seg Neutrophils # Man 16.8 H Lymphocytes # (Manual) 0.0 L PT 15.0 H INR 1.21 H APTT Thrombin Time 20.0 H POC ABG pH ABG pH POC ABG pCO2 POC ABG pO2 ABG pO2 ABG HCO3 ABG O2 Saturation ABG Base Excess ABG Hemoglobin Oxyhemoglobin Sodium 135 L Potassium Chloride 97.7 L Carbon Dioxide 19 L BUN 51 H Creatinine 4.5 H Glucose 112 H POC Glucose Lactic Acid Calcium Magnesium Iron TIBC Direct Bilirubin AST Alkaline Phosphatase Troponin T 0.181 H* C-Reactive Protein Total Protein Albumin LDL Cholesterol Direct 34 L HDL Cholesterol 20 L Vitamin B12 Folate TSH Urine WBC (Auto) Urine Creatinine Urine Total Protein [place] Screen CHE[place] Titer Complement C3 Complement C4 02/01/19 02/01/19 02/01/19 07:29 07:29 07:43 WBC RBC Hgb Hct RDW Plt Count Seg Neuts % (Manual) Lymphocytes % (Manual) Seg Neutrophils # Man Lymphocytes # (Manual) PT INR APTT Thrombin Time POC ABG pH ABG pH POC ABG pCO2 POC ABG pO2 ABG pO2 ABG HCO3 ABG O2 Saturation ABG Base Excess ABG Hemoglobin Oxyhemoglobin Sodium Potassium Chloride Carbon Dioxide BUN Creatinine Glucose POC Glucose Lactic Acid 4.80 H* Calcium Magnesium Iron TIBC Direct Bilirubin 0.7 H AST 42 H Alkaline Phosphatase Troponin T C-Reactive Protein Total Protein 8.9 H Albumin 2.3 L LDL Cholesterol Direct HDL Cholesterol Vitamin B12 Folate TSH 8.470 H Urine WBC (Auto) Urine Creatinine Urine Total Protein [place] Screen [place] Titer Complement C3 Complement C4 02/01/19 02/01/19 02/01/19 09:45 11:32 13:50 WBC RBC Hgb Hct RDW Plt Count Seg Neuts % (Manual) Lymphocytes % (Manual) Seg Neutrophils # Man Lymphocytes # (Manual) PT INR APTT Thrombin Time POC ABG pH 7.289 L ABG pH POC ABG pCO2 POC ABG pO2 355 H ABG pO2 ABG HCO3 ABG O2 Saturation ABG Base Excess ABG Hemoglobin Oxyhemoglobin Sodium Potassium Chloride Carbon Dioxide BUN Creatinine Glucose POC Glucose Lactic Acid 4.10 H* Calcium Magnesium Iron TIBC Direct Bilirubin AST Alkaline Phosphatase Troponin T C-Reactive Protein Total Protein Albumin LDL Cholesterol Direct HDL Cholesterol Vitamin B12 Folate TSH Urine WBC (Auto) 16.0 H Urine Creatinine Urine Total Protein [place] Screen [place] Titer Complement C3 Complement C4 02/01/19 02/01/19 02/01/19 15:15 16:20 16:51 WBC RBC Hgb Hct RDW Plt Count Seg Neuts % (Manual) Lymphocytes % (Manual) Seg Neutrophils # Man Lymphocytes # (Manual) PT INR APTT Thrombin Time POC ABG pH ABG pH POC ABG pCO2 POC ABG pO2 ABG pO2 ABG HCO3 ABG O2 Saturation ABG Base Excess ABG Hemoglobin Oxyhemoglobin Sodium Potassium Chloride Carbon Dioxide BUN Creatinine Glucose POC Glucose 115 H Lactic Acid 4.50 H* Calcium Magnesium Iron TIBC Direct Bilirubin AST Alkaline Phosphatase Troponin T C-Reactive Protein Total Protein Albumin LDL Cholesterol Direct HDL Cholesterol Vitamin B12 Folate TSH Urine WBC (Auto) Urine Creatinine Urine Total Protein [place] Screen [place] Titer Complement C3 36 L Complement C4 02/01/19 02/01/19 02/01/19 16:51 17:03 17:04 WBC RBC Hgb Hct RDW Plt Count Seg Neuts % (Manual) Lymphocytes % (Manual) Seg Neutrophils # Man Lymphocytes # (Manual) PT INR APTT Thrombin Time POC ABG pH ABG pH POC ABG pCO2 POC ABG pO2 ABG pO2 ABG HCO3 ABG O2 Saturation ABG Base Excess ABG Hemoglobin Oxyhemoglobin Sodium Potassium Chloride Carbon Dioxide BUN Creatinine Glucose POC Glucose Lactic Acid 2.80 H* Calcium Magnesium Iron TIBC Direct Bilirubin AST Alkaline Phosphatase Troponin T C-Reactive Protein 32.30 H Total Protein Albumin LDL Cholesterol Direct HDL Cholesterol Vitamin B12 Folate TSH Urine WBC (Auto) Urine Creatinine Urine Total Protein [place] Screen [place] Titer Complement C3 Complement C4 12 L 02/01/19 02/01/19 02/02/19 17:04 19:28 05:16 WBC RBC Hgb Hct RDW Plt Count Seg Neuts % (Manual) Lymphocytes % (Manual) Seg Neutrophils # Man Lymphocytes # (Manual) PT INR APTT Thrombin Time POC ABG pH ABG pH POC ABG pCO2 POC ABG pO2 148 H ABG pO2 ABG HCO3 ABG O2 Saturation ABG Base Excess ABG Hemoglobin Oxyhemoglobin Sodium Potassium Chloride 107.1 H Carbon Dioxide 18 L BUN 52 H Creatinine 3.1 H Glucose 120 H POC Glucose Lactic Acid Calcium 7.4 L Magnesium Iron TIBC Direct Bilirubin AST Alkaline Phosphatase Troponin T C-Reactive Protein Total Protein Albumin LDL Cholesterol Direct HDL Cholesterol Vitamin B12 Folate TSH Urine WBC (Auto) Urine Creatinine Urine Total Protein [place] Screen Positive H CHE[place] Titer 1:320 H Complement C3 Complement C4 02/02/19 02/02/19 02/03/19 05:53 05:53 03:30 WBC 14.3 H RBC 5.16 H Hgb 14.9 H Hct 46.2 H D RDW 16.9 H 17.0 H Plt Count 43 L 18 L* Seg Neuts % (Manual) 93.0 H Lymphocytes % (Manual) 2.0 L Seg Neutrophils # Man 13.3 H Lymphocytes # (Manual) 0.3 L PT INR APTT Thrombin Time POC ABG pH ABG pH POC ABG pCO2 POC ABG pO2 ABG pO2 ABG HCO3 ABG O2 Saturation ABG Base Excess ABG Hemoglobin Oxyhemoglobin Sodium Potassium 5.1 H Chloride Carbon Dioxide 21 L BUN 57 H Creatinine 3.3 H Glucose 147 H POC Glucose Lactic Acid Calcium 7.5 L Magnesium Iron TIBC Direct Bilirubin AST 51 H Alkaline Phosphatase Troponin T C-Reactive Protein Total Protein Albumin 1.6 L LDL Cholesterol Direct HDL Cholesterol Vitamin B12 Folate TSH Urine WBC (Auto) Urine Creatinine Urine Total Protein [place] Screen [place] Titer Complement C3 Complement C4 02/03/19 02/03/19 02/03/19 03:30 05:55 14:42 WBC RBC Hgb Hct RDW Plt Count Seg Neuts % (Manual) Lymphocytes % (Manual) Seg Neutrophils # Man Lymphocytes # (Manual) PT INR APTT Thrombin Time POC ABG pH ABG pH POC ABG pCO2 POC ABG pO2 117 H ABG pO2 ABG HCO3 ABG O2 Saturation ABG Base Excess ABG Hemoglobin Oxyhemoglobin Sodium Potassium Chloride Carbon Dioxide BUN 65 H Creatinine 2.7 H Glucose 117 H POC Glucose Lactic Acid Calcium 7.2 L Magnesium Iron TIBC Direct Bilirubin AST Alkaline Phosphatase Troponin T C-Reactive Protein Total Protein Albumin LDL Cholesterol Direct HDL Cholesterol Vitamin B12 1468 H Folate TSH Urine WBC (Auto) Urine Creatinine Urine Total Protein [place] Screen [place] Titer Complement C3 Complement C4 02/03/19 02/03/19 02/03/19 14:42 14:42 14:42 WBC RBC 3.17 L Hgb 9.4 L D Hct 28.3 L D RDW 16.9 H Plt Count 18 L* Seg Neuts % (Manual) Lymphocytes % (Manual) Seg Neutrophils # Man Lymphocytes # (Manual) PT INR APTT Thrombin Time POC ABG pH ABG pH POC ABG pCO2 POC ABG pO2 ABG pO2 ABG HCO3 ABG O2 Saturation ABG Base Excess ABG Hemoglobin Oxyhemoglobin Sodium Potassium Chloride Carbon Dioxide BUN Creatinine Glucose POC Glucose Lactic Acid Calcium Magnesium Iron 11 L TIBC 88 L Direct Bilirubin AST Alkaline Phosphatase Troponin T C-Reactive Protein Total Protein Albumin LDL Cholesterol Direct HDL Cholesterol Vitamin B12 Folate 5.18 L TSH Urine WBC (Auto) Urine Creatinine Urine Total Protein [place] Screen [place] Titer Complement C3 Complement C4 02/03/19 02/03/19 02/04/19 14:42 14:42 03:35 WBC RBC 3.22 L Hgb 9.5 L Hct 28.5 L RDW 16.4 H Plt Count 18 L* Seg Neuts % (Manual) Lymphocytes % (Manual) Seg Neutrophils # Man Lymphocytes # (Manual) PT 15.8 H INR 1.29 H APTT 38.2 H Thrombin Time POC ABG pH ABG pH 7.470 H POC ABG pCO2 POC ABG pO2 ABG pO2 ABG HCO3 28.4 H ABG O2 Saturation ABG Base Excess 4.5 H ABG Hemoglobin 10.1 L Oxyhemoglobin 94.7 L Sodium Potassium Chloride Carbon Dioxide BUN Creatinine Glucose POC Glucose Lactic Acid Calcium Magnesium Iron TIBC Direct Bilirubin AST Alkaline Phosphatase Troponin T C-Reactive Protein Total Protein Albumin LDL Cholesterol Direct HDL Cholesterol Vitamin B12 Folate TSH Urine WBC (Auto) Urine Creatinine Urine Total Protein [place] Screen [place] Titer Complement C3 Complement C4 02/04/19 02/04/19 02/05/19 05:02 05:02 03:50 WBC RBC Hgb Hct RDW 16.5 H Plt Count 20 L Seg Neuts % (Manual) 94.0 H Lymphocytes % (Manual) 2.0 L Seg Neutrophils # Man 9.2 H Lymphocytes # (Manual) 0.2 L PT INR APTT Thrombin Time POC ABG pH ABG pH 7.485 H POC ABG pCO2 POC ABG pO2 ABG pO2 ABG HCO3 27.5 H ABG O2 Saturation ABG Base Excess 3.9 H ABG Hemoglobin 9.1 L Oxyhemoglobin 94.8 L Sodium Potassium Chloride Carbon Dioxide BUN 66 H Creatinine 1.7 H Glucose 127 H POC Glucose Lactic Acid Calcium 7.6 L Magnesium Iron TIBC Direct Bilirubin AST Alkaline Phosphatase Troponin T C-Reactive Protein Total Protein Albumin LDL Cholesterol Direct HDL Cholesterol Vitamin B12 Folate TSH Urine WBC (Auto) Urine Creatinine Urine Total Protein [place] Screen [place] Titer Complement C3 Complement C4 02/05/19 02/05/19 02/05/19 13:02 14:36 20:03 WBC 11.7 H RBC 3.48 L 3.24 L Hgb 10.0 L 9.4 L Hct 29.2 L RDW 16.3 H 16.3 H Plt Count 50 L D 71 L Seg Neuts % (Manual) 95.0 H 95.0 H Lymphocytes % (Manual) 0 L 2.0 L Seg Neutrophils # Man 11.1 H 10.2 H Lymphocytes # (Manual) 0.0 L 0.2 L PT INR APTT Thrombin Time POC ABG pH ABG pH POC ABG pCO2 POC ABG pO2 ABG pO2 ABG HCO3 ABG O2 Saturation ABG Base Excess ABG Hemoglobin Oxyhemoglobin Sodium Potassium Chloride Carbon Dioxide BUN 67 H Creatinine 1.5 H Glucose POC Glucose Lactic Acid Calcium 7.7 L Magnesium Iron TIBC Direct Bilirubin AST Alkaline Phosphatase Troponin T C-Reactive Protein Total Protein Albumin LDL Cholesterol Direct HDL Cholesterol Vitamin B12 Folate TSH Urine WBC (Auto) Urine Creatinine Urine Total Protein [place] Screen [place] Titer Complement C3 Complement C4 02/06/19 02/06/19 02/06/19 05:39 07:35 18:34 WBC RBC Hgb Hct RDW Plt Count Seg Neuts % (Manual) Lymphocytes % (Manual) Seg Neutrophils # Man Lymphocytes # (Manual) PT 16.3 H INR 1.35 H APTT Thrombin Time POC ABG pH ABG pH POC ABG pCO2 POC ABG pO2 ABG pO2 ABG HCO3 ABG O2 Saturation ABG Base Excess ABG Hemoglobin Oxyhemoglobin Sodium Potassium Chloride Carbon Dioxide BUN Creatinine Glucose POC Glucose 107 H 121 H Lactic Acid Calcium Magnesium Iron TIBC Direct Bilirubin AST Alkaline Phosphatase Troponin T C-Reactive Protein Total Protein Albumin LDL Cholesterol Direct HDL Cholesterol Vitamin B12 Folate TSH Urine WBC (Auto) Urine Creatinine Urine Total Protein [place] Screen [place] Titer Complement C3 Complement C4 02/06/19 02/07/19 02/07/19 Unknown 01:07 04:15 WBC RBC Hgb Hct RDW Plt Count Seg Neuts % (Manual) Lymphocytes % (Manual) Seg Neutrophils # Man Lymphocytes # (Manual) PT INR APTT Thrombin Time POC ABG pH ABG pH POC ABG pCO2 POC ABG pO2 ABG pO2 ABG HCO3 ABG O2 Saturation ABG Base Excess ABG Hemoglobin 5.0 L Oxyhemoglobin 94.9 L 94.8 L Sodium 146 H Potassium Chloride Carbon Dioxide BUN 85 H Creatinine 1.8 H Glucose 163 H POC Glucose Lactic Acid Calcium 8.3 L Magnesium Iron TIBC Direct Bilirubin AST Alkaline Phosphatase Troponin T C-Reactive Protein Total Protein Albumin LDL Cholesterol Direct HDL Cholesterol Vitamin B12 Folate TSH Urine WBC (Auto) Urine Creatinine Urine Total Protein [place] Screen [place] Titer Complement C3 Complement C4 02/07/19 02/07/19 02/08/19 08:22 10:58 04:40 WBC RBC Hgb Hct RDW 16.0 H Plt Count 84 L Seg Neuts % (Manual) 97.0 H Lymphocytes % (Manual) 0 L Seg Neutrophils # Man 9.5 H Lymphocytes # (Manual) 0.0 L PT INR APTT Thrombin Time POC ABG pH 7.477 H ABG pH 7.467 H POC ABG pCO2 34.8 L POC ABG pO2 118 H ABG pO2 ABG HCO3 ABG O2 Saturation ABG Base Excess ABG Hemoglobin 8.4 L Oxyhemoglobin Sodium Potassium Chloride Carbon Dioxide BUN Creatinine Glucose POC Glucose Lactic Acid Calcium Magnesium Iron TIBC Direct Bilirubin AST Alkaline Phosphatase Troponin T C-Reactive Protein Total Protein Albumin LDL Cholesterol Direct HDL Cholesterol Vitamin B12 Folate TSH Urine WBC (Auto) Urine Creatinine Urine Total Protein [place] Screen [place] Titer Complement C3 Complement C4 02/09/19 02/09/19 02/09/19 03:17 03:17 04:35 WBC 14.9 H RBC 3.32 L Hgb 9.6 L Hct RDW 15.9 H Plt Count 113 L Seg Neuts % (Manual) 96.0 H Lymphocytes % (Manual) 1.0 L Seg Neutrophils # Man 14.3 H Lymphocytes # (Manual) 0.1 L PT INR APTT Thrombin Time POC ABG pH ABG pH 7.478 H POC ABG pCO2 POC ABG pO2 ABG pO2 94.5 H ABG HCO3 ABG O2 Saturation ABG Base Excess ABG Hemoglobin 6.1 L Oxyhemoglobin Sodium 147 H Potassium Chloride 110.4 H Carbon Dioxide BUN 114 H Creatinine 2.2 H Glucose 270 H POC Glucose Lactic Acid Calcium 8.1 L Magnesium Iron TIBC Direct Bilirubin AST Alkaline Phosphatase Troponin T C-Reactive Protein Total Protein Albumin 1.6 L LDL Cholesterol Direct HDL Cholesterol Vitamin B12 Folate TSH Urine WBC (Auto) Urine Creatinine Urine Total Protein [place] Screen [place] Titer Complement C3 Complement C4 02/09/19 02/09/19 02/10/19 13:35 18:54 05:13 WBC RBC Hgb Hct RDW Plt Count Seg Neuts % (Manual) Lymphocytes % (Manual) Seg Neutrophils # Man Lymphocytes # (Manual) PT INR APTT Thrombin Time POC ABG pH ABG pH 7.478 H POC ABG pCO2 POC ABG pO2 ABG pO2 ABG HCO3 ABG O2 Saturation ABG Base Excess ABG Hemoglobin 8.1 L Oxyhemoglobin 94.9 L Sodium Potassium Chloride Carbon Dioxide BUN Creatinine Glucose POC Glucose Lactic Acid Calcium Magnesium Iron TIBC Direct Bilirubin AST Alkaline Phosphatase Troponin T C-Reactive Protein Total Protein Albumin LDL Cholesterol Direct HDL Cholesterol Vitamin B12 Folate TSH Urine WBC (Auto) 10.0 H Urine Creatinine 92.9 H Urine Total Protein 116 H [place] Screen [place] Titer Complement C3 Complement C4 02/10/19 02/10/19 02/11/19 18:14 23:24 04:10 WBC RBC Hgb Hct RDW Plt Count Seg Neuts % (Manual) Lymphocytes % (Manual) Seg Neutrophils # Man Lymphocytes # (Manual) PT INR APTT Thrombin Time POC ABG pH ABG pH POC ABG pCO2 POC ABG pO2 ABG pO2 69.4 L ABG HCO3 ABG O2 Saturation 94.2 L ABG Base Excess ABG Hemoglobin 11.0 L Oxyhemoglobin 92.1 L Sodium Potassium Chloride Carbon Dioxide BUN Creatinine Glucose POC Glucose 453 H 403 H Lactic Acid Calcium Magnesium Iron TIBC Direct Bilirubin AST Alkaline Phosphatase Troponin T C-Reactive Protein Total Protein Albumin LDL Cholesterol Direct HDL Cholesterol Vitamin B12 Folate TSH Urine WBC (Auto) Urine Creatinine Urine Total Protein [place] Screen [place] Titer Complement C3 Complement C4 02/11/19 02/11/19 02/11/19 04:54 04:54 05:40 WBC 12.5 H RBC 3.18 L Hgb 9.4 L Hct 29.4 L RDW 16.6 H Plt Count Seg Neuts % (Manual) 94.0 H Lymphocytes % (Manual) 4.0 L Seg Neutrophils # Man 11.8 H Lymphocytes # (Manual) 0.5 L PT INR APTT Thrombin Time POC ABG pH ABG pH POC ABG pCO2 POC ABG pO2 ABG pO2 ABG HCO3 ABG O2 Saturation ABG Base Excess ABG Hemoglobin Oxyhemoglobin Sodium 151 H Potassium Chloride 112.6 H Carbon Dioxide BUN 127 H Creatinine 1.8 H Glucose 396 H POC Glucose 410 H Lactic Acid Calcium 8.3 L Magnesium Iron TIBC Direct Bilirubin AST Alkaline Phosphatase 132 H Troponin T C-Reactive Protein Total Protein Albumin 2.1 L LDL Cholesterol Direct HDL Cholesterol Vitamin B12 Folate TSH Urine WBC (Auto) Urine Creatinine Urine Total Protein [place] Screen [place] Titer Complement C3 Complement C4 02/11/19 02/11/19 02/11/19 11:30 17:58 23:18 WBC RBC Hgb Hct RDW Plt Count Seg Neuts % (Manual) Lymphocytes % (Manual) Seg Neutrophils # Man Lymphocytes # (Manual) PT INR APTT Thrombin Time POC ABG pH ABG pH POC ABG pCO2 POC ABG pO2 ABG pO2 ABG HCO3 ABG O2 Saturation ABG Base Excess ABG Hemoglobin Oxyhemoglobin Sodium Potassium Chloride Carbon Dioxide BUN Creatinine Glucose POC Glucose 361 H 414 H 392 H Lactic Acid Calcium Magnesium Iron TIBC Direct Bilirubin AST Alkaline Phosphatase Troponin T C-Reactive Protein Total Protein Albumin LDL Cholesterol Direct HDL Cholesterol Vitamin B12 Folate TSH Urine WBC (Auto) Urine Creatinine Urine Total Protein [place] Screen [place] Titer Complement C3 Complement C4 08/26/19 08/26/19 08/26/19 05:32 05:36 05:36 WBC 11.9 H RBC 3.40 L Hgb 9.9 L Hct RDW 16.4 H Plt Count Seg Neuts % (Manual) 97.0 H Lymphocytes % (Manual) 2.0 L Seg Neutrophils # Man 11.5 H Lymphocytes # (Manual) 0.2 L PT INR APTT Thrombin Time POC ABG pH ABG pH POC ABG pCO2 POC ABG pO2 ABG pO2 ABG HCO3 ABG O2 Saturation ABG Base Excess ABG Hemoglobin Oxyhemoglobin Sodium 146 H Potassium 3.5 L Chloride 110.2 H Carbon Dioxide BUN 118 H Creatinine 1.4 H Glucose 382 H POC Glucose 361 H Lactic Acid Calcium 8.3 L Magnesium Iron TIBC Direct Bilirubin AST Alkaline Phosphatase 137 H Troponin T C-Reactive Protein Total Protein Albumin 2.0 L LDL Cholesterol Direct HDL Cholesterol Vitamin B12 Folate TSH Urine WBC (Auto) Urine Creatinine Urine Total Protein [place] Screen [place] Titer Complement C3 Complement C4 02/12/19 02/12/19 02/12/19 11:51 17:18 21:46 WBC RBC Hgb Hct RDW Plt Count Seg Neuts % (Manual) Lymphocytes % (Manual) Seg Neutrophils # Man Lymphocytes # (Manual) PT INR APTT Thrombin Time POC ABG pH ABG pH POC ABG pCO2 POC ABG pO2 ABG pO2 ABG HCO3 ABG O2 Saturation ABG Base Excess ABG Hemoglobin Oxyhemoglobin Sodium Potassium Chloride Carbon Dioxide BUN Creatinine Glucose POC Glucose 357 H 280 H 222 H Lactic Acid Calcium Magnesium Iron TIBC Direct Bilirubin AST Alkaline Phosphatase Troponin T C-Reactive Protein Total Protein Albumin LDL Cholesterol Direct HDL Cholesterol Vitamin B12 Folate TSH Urine WBC (Auto) Urine Creatinine Urine Total Protein [place] Screen [place] Titer Complement C3 Complement C4 02/12/19 02/13/19 02/13/19 23:58 03:41 03:41 WBC 11.6 H RBC 3.53 L Hgb Hct RDW 15.8 H Plt Count 98 L Seg Neuts % (Manual) 97.0 H Lymphocytes % (Manual) 2.0 L Seg Neutrophils # Man 11.3 H Lymphocytes # (Manual) 0.2 L PT INR APTT Thrombin Time POC ABG pH ABG pH POC ABG pCO2 POC ABG pO2 ABG pO2 ABG HCO3 ABG O2 Saturation ABG Base Excess ABG Hemoglobin Oxyhemoglobin Sodium Potassium 3.4 L Chloride 109.7 H Carbon Dioxide BUN 108 H Creatinine Glucose 182 H POC Glucose 208 H Lactic Acid Calcium Magnesium Iron TIBC Direct Bilirubin AST 45 H Alkaline Phosphatase 150 H Troponin T C-Reactive Protein Total Protein Albumin 1.8 L LDL Cholesterol Direct HDL Cholesterol Vitamin B12 Folate TSH Urine WBC (Auto) Urine Creatinine Urine Total Protein [place] Screen [place] Titer Complement C3 Complement C4 02/13/19 02/13/19 02/13/19 05:40 11:31 18:01 WBC RBC Hgb Hct RDW Plt Count Seg Neuts % (Manual) Lymphocytes % (Manual) Seg Neutrophils # Man Lymphocytes # (Manual) PT INR APTT Thrombin Time POC ABG pH ABG pH POC ABG pCO2 POC ABG pO2 ABG pO2 ABG HCO3 ABG O2 Saturation ABG Base Excess ABG Hemoglobin Oxyhemoglobin Sodium Potassium Chloride Carbon Dioxide BUN Creatinine Glucose POC Glucose 179 H 193 H 151 H Lactic Acid Calcium Magnesium Iron TIBC Direct Bilirubin AST Alkaline Phosphatase Troponin T C-Reactive Protein Total Protein Albumin LDL Cholesterol Direct HDL Cholesterol Vitamin B12 Folate TSH Urine WBC (Auto) Urine Creatinine Urine Total Protein [place] Screen [place] Titer Complement C3 Complement C4 02/13/19 02/14/19 02/14/19 23:47 04:03 04:03 WBC RBC Hgb Hct RDW 16.0 H Plt Count Seg Neuts % (Manual) 94.0 H Lymphocytes % (Manual) 2.0 L Seg Neutrophils # Man 8.9 H Lymphocytes # (Manual) 0.2 L PT INR APTT Thrombin Time POC ABG pH ABG pH POC ABG pCO2 POC ABG pO2 ABG pO2 ABG HCO3 ABG O2 Saturation ABG Base Excess ABG Hemoglobin Oxyhemoglobin Sodium Potassium 3.4 L Chloride 108.7 H Carbon Dioxide 21 L BUN 96 H Creatinine Glucose 129 H POC Glucose 144 H Lactic Acid Calcium 8.2 L Magnesium Iron TIBC Direct Bilirubin AST 65 H Alkaline Phosphatase 164 H Troponin T C-Reactive Protein Total Protein Albumin 1.7 L LDL Cholesterol Direct HDL Cholesterol Vitamin B12 Folate TSH Urine WBC (Auto) Urine Creatinine Urine Total Protein [place] Screen [place] Titer Complement C3 Complement C4 02/14/19 02/14/19 02/14/19 04:03 05:10 11:51 WBC RBC Hgb Hct RDW Plt Count Seg Neuts % (Manual) Lymphocytes % (Manual) Seg Neutrophils # Man Lymphocytes # (Manual) PT INR APTT Thrombin Time POC ABG pH ABG pH POC ABG pCO2 POC ABG pO2 ABG pO2 ABG HCO3 ABG O2 Saturation ABG Base Excess ABG Hemoglobin Oxyhemoglobin Sodium Potassium Chloride Carbon Dioxide BUN Creatinine Glucose POC Glucose 145 H 192 H Lactic Acid Calcium Magnesium 1.60 L Iron TIBC Direct Bilirubin AST Alkaline Phosphatase Troponin T C-Reactive Protein Total Protein Albumin LDL Cholesterol Direct HDL Cholesterol Vitamin B12 Folate TSH Urine WBC (Auto) Urine Creatinine Urine Total Protein [place] Screen [place] Titer Complement C3 Complement C4 02/14/19 02/14/19 02/15/19 17:42 23:33 05:33 WBC RBC Hgb Hct RDW 15.9 H Plt Count Seg Neuts % (Manual) 95.0 H Lymphocytes % (Manual) 1.0 L Seg Neutrophils # Man 7.9 H Lymphocytes # (Manual) 0.1 L PT INR APTT Thrombin Time POC ABG pH ABG pH POC ABG pCO2 POC ABG pO2 ABG pO2 ABG HCO3 ABG O2 Saturation ABG Base Excess ABG Hemoglobin Oxyhemoglobin Sodium Potassium Chloride Carbon Dioxide BUN Creatinine Glucose POC Glucose 229 H 204 H Lactic Acid Calcium Magnesium Iron TIBC Direct Bilirubin AST Alkaline Phosphatase Troponin T C-Reactive Protein Total Protein Albumin LDL Cholesterol Direct HDL Cholesterol Vitamin B12 Folate TSH Urine WBC (Auto) Urine Creatinine Urine Total Protein [place] Screen [place] Titer Complement C3 Complement C4 02/15/19 02/15/19 02/15/19 05:33 05:41 12:30 WBC RBC Hgb Hct RDW Plt Count Seg Neuts % (Manual) Lymphocytes % (Manual) Seg Neutrophils # Man Lymphocytes # (Manual) PT INR APTT Thrombin Time POC ABG pH ABG pH POC ABG pCO2 POC ABG pO2 ABG pO2 ABG HCO3 ABG O2 Saturation ABG Base Excess ABG Hemoglobin Oxyhemoglobin Sodium Potassium Chloride 108.2 H Carbon Dioxide BUN 91 H Creatinine Glucose 197 H POC Glucose 209 H 168 H Lactic Acid Calcium 8.2 L Magnesium Iron TIBC Direct Bilirubin AST 61 H Alkaline Phosphatase 215 H Troponin T C-Reactive Protein Total Protein Albumin 1.9 L LDL Cholesterol Direct HDL Cholesterol Vitamin B12 Folate TSH Urine WBC (Auto) Urine Creatinine Urine Total Protein [place] Screen [place] Titer Complement C3 Complement C4 02/15/19 02/15/19 02/16/19 18:17 23:53 04:58 WBC RBC Hgb Hct RDW 15.7 H Plt Count Seg Neuts % (Manual) 93.0 H Lymphocytes % (Manual) 5.0 L Seg Neutrophils # Man Lymphocytes # (Manual) 0.4 L PT INR APTT Thrombin Time POC ABG pH ABG pH POC ABG pCO2 POC ABG pO2 ABG pO2 ABG HCO3 ABG O2 Saturation ABG Base Excess ABG Hemoglobin Oxyhemoglobin Sodium Potassium Chloride Carbon Dioxide BUN Creatinine Glucose POC Glucose 161 H 160 H Lactic Acid Calcium Magnesium Iron TIBC Direct Bilirubin AST Alkaline Phosphatase Troponin T C-Reactive Protein Total Protein Albumin LDL Cholesterol Direct HDL Cholesterol Vitamin B12 Folate TSH Urine WBC (Auto) Urine Creatinine Urine Total Protein [place] Screen [place] Titer Complement C3 Complement C4 02/16/19 02/16/19 02/16/19 04:58 12:27 17:08 WBC RBC Hgb Hct RDW Plt Count Seg Neuts % (Manual) Lymphocytes % (Manual) Seg Neutrophils # Man Lymphocytes # (Manual) PT INR APTT Thrombin Time POC ABG pH ABG pH POC ABG pCO2 POC ABG pO2 ABG pO2 ABG HCO3 ABG O2 Saturation ABG Base Excess ABG Hemoglobin Oxyhemoglobin Sodium Potassium Chloride 108.3 H Carbon Dioxide BUN 90 H Creatinine Glucose 126 H POC Glucose 125 H 180 H Lactic Acid Calcium 8.1 L Magnesium Iron TIBC Direct Bilirubin AST 52 H Alkaline Phosphatase 188 H Troponin T C-Reactive Protein Total Protein Albumin 2.0 L LDL Cholesterol Direct HDL Cholesterol Vitamin B12 Folate TSH Urine WBC (Auto) Urine Creatinine Urine Total Protein [place] Screen [place] Titer Complement C3 Complement C4 02/16/19 02/16/19 02/17/19 21:52 23:51 04:43 WBC RBC 3.48 L Hgb Hct RDW 15.8 H Plt Count Seg Neuts % (Manual) 87.0 H Lymphocytes % (Manual) 6.0 L Seg Neutrophils # González Lymphocytes # (Manual) 0.5 L PT INR APTT Thrombin Time POC ABG pH ABG pH POC ABG pCO2 POC ABG pO2 ABG pO2 ABG HCO3 ABG O2 Saturation ABG Base Excess ABG Hemoglobin Oxyhemoglobin Sodium Potassium Chloride Carbon Dioxide BUN Creatinine Glucose POC Glucose 177 H 161 H Lactic Acid Calcium Magnesium Iron TIBC Direct Bilirubin AST Alkaline Phosphatase Troponin T C-Reactive Protein Total Protein Albumin LDL Cholesterol Direct HDL Cholesterol Vitamin B12 Folate TSH Urine WBC (Auto) Urine Creatinine Urine Total Protein [place] Screen [place] Titer Complement C3 Complement C4 02/17/19 02/17/19 02/17/19 04:43 05:05 18:16 WBC RBC Hgb Hct RDW Plt Count Seg Neuts % (Manual) Lymphocytes % (Manual) Seg Neutrophils # Man Lymphocytes # (Manual) PT INR APTT Thrombin Time POC ABG pH ABG pH POC ABG pCO2 POC ABG pO2 ABG pO2 ABG HCO3 ABG O2 Saturation ABG Base Excess ABG Hemoglobin Oxyhemoglobin Sodium Potassium Chloride 110.2 H Carbon Dioxide 21 L BUN 90 H Creatinine Glucose 164 H POC Glucose 166 H 123 H Lactic Acid Calcium 8.2 L Magnesium Iron TIBC Direct Bilirubin AST 59 H Alkaline Phosphatase 224 H Troponin T C-Reactive Protein Total Protein 6.2 L Albumin 1.9 L LDL Cholesterol Direct HDL Cholesterol Vitamin B12 Folate TSH Urine WBC (Auto) Urine Creatinine Urine Total Protein [place] Screen [place] Titer Complement C3 Complement C4 02/17/19 02/18/19 02/18/19 22:15 00:14 05:23 WBC RBC Hgb Hct RDW Plt Count Seg Neuts % (Manual) Lymphocytes % (Manual) Seg Neutrophils # Man Lymphocytes # (Manual) PT INR APTT Thrombin Time POC ABG pH ABG pH POC ABG pCO2 POC ABG pO2 ABG pO2 ABG HCO3 ABG O2 Saturation ABG Base Excess ABG Hemoglobin Oxyhemoglobin Sodium Potassium Chloride Carbon Dioxide BUN Creatinine Glucose POC Glucose 135 H 142 H 175 H Lactic Acid Calcium Magnesium Iron TIBC Direct Bilirubin AST Alkaline Phosphatase Troponin T C-Reactive Protein Total Protein Albumin LDL Cholesterol Direct HDL Cholesterol Vitamin B12 Folate TSH Urine WBC (Auto) Urine Creatinine Urine Total Protein [place] Screen [place] Titer Complement C3 Complement C4 02/18/19 02/18/19 02/18/19 11:20 17:14 22:03 WBC RBC Hgb Hct RDW Plt Count Seg Neuts % (Manual) Lymphocytes % (Manual) Seg Neutrophils # Man Lymphocytes # (Manual) PT INR APTT Thrombin Time POC ABG pH ABG pH POC ABG pCO2 POC ABG pO2 ABG pO2 ABG HCO3 ABG O2 Saturation ABG Base Excess ABG Hemoglobin Oxyhemoglobin Sodium Potassium Chloride Carbon Dioxide BUN Creatinine Glucose POC Glucose 139 H 139 H 150 H Lactic Acid Calcium Magnesium Iron TIBC Direct Bilirubin AST Alkaline Phosphatase Troponin T C-Reactive Protein Total Protein Albumin LDL Cholesterol Direct HDL Cholesterol Vitamin B12 Folate TSH Urine WBC (Auto) Urine Creatinine Urine Total Protein [place] Screen [place] Titer Complement C3 Complement C4 02/18/19 02/19/19 02/19/19 23:53 05:15 11:19 WBC RBC Hgb Hct RDW Plt Count Seg Neuts % (Manual) Lymphocytes % (Manual) Seg Neutrophils # Man Lymphocytes # (Manual) PT INR APTT Thrombin Time POC ABG pH ABG pH POC ABG pCO2 POC ABG pO2 ABG pO2 ABG HCO3 ABG O2 Saturation ABG Base Excess ABG Hemoglobin Oxyhemoglobin Sodium Potassium Chloride Carbon Dioxide BUN Creatinine Glucose POC Glucose 140 H 161 H 146 H Lactic Acid Calcium Magnesium Iron TIBC Direct Bilirubin AST Alkaline Phosphatase Troponin T C-Reactive Protein Total Protein Albumin LDL Cholesterol Direct HDL Cholesterol Vitamin B12 Folate TSH Urine WBC (Auto) Urine Creatinine Urine Total Protein [place] Screen [place] Titer Complement C3 Complement C4 02/19/19 02/20/19 02/20/19 17:34 01:11 05:40 WBC RBC Hgb Hct RDW Plt Count Seg Neuts % (Manual) Lymphocytes % (Manual) Seg Neutrophils # Man Lymphocytes # (Manual) PT INR APTT Thrombin Time POC ABG pH ABG pH POC ABG pCO2 POC ABG pO2 ABG pO2 ABG HCO3 ABG O2 Saturation ABG Base Excess ABG Hemoglobin Oxyhemoglobin Sodium Potassium Chloride Carbon Dioxide BUN Creatinine Glucose POC Glucose 133 H 137 H 150 H Lactic Acid Calcium Magnesium Iron TIBC Direct Bilirubin AST Alkaline Phosphatase Troponin T C-Reactive Protein Total Protein Albumin LDL Cholesterol Direct HDL Cholesterol Vitamin B12 Folate TSH Urine WBC (Auto) Urine Creatinine Urine Total Protein [place] Screen [place] Titer Complement C3 Complement C4 02/20/19 02/20/19 02/20/19 07:05 07:05 11:27 WBC RBC 3.34 L Hgb 10.0 L Hct RDW 16.4 H Plt Count Seg Neuts % (Manual) 87.0 H Lymphocytes % (Manual) 4.0 L Seg Neutrophils # Man Lymphocytes # (Manual) 0.3 L PT INR APTT Thrombin Time POC ABG pH ABG pH POC ABG pCO2 POC ABG pO2 ABG pO2 ABG HCO3 ABG O2 Saturation ABG Base Excess ABG Hemoglobin Oxyhemoglobin Sodium Potassium Chloride 112.1 H Carbon Dioxide BUN 84 H Creatinine Glucose 150 H POC Glucose 141 H Lactic Acid Calcium Magnesium Iron TIBC Direct Bilirubin AST Alkaline Phosphatase Troponin T C-Reactive Protein Total Protein Albumin LDL Cholesterol Direct HDL Cholesterol Vitamin B12 Folate TSH Urine WBC (Auto) Urine Creatinine Urine Total Protein [place] Screen [place] Titer Complement C3 Complement C4 Chest x-ray: report reviewed, image reviewed
[2019-02-20] MEDS ORDERED: MAGNESIUM SULFATE 2 GM/50 ML BAG IV ONE (15:00)
--- NOTE | 2019-02-20 17:56 | Progress Note ---
Assessment and Plan 53 yo F with VDRF CT scan neck: extensive inflammatory change and edema on the right side of the neck, with underlying adenopathy. This process would be consistent with an inflammatory process/cellulitis Plan: 1. continue vent management and current treatment per critical care team and consultants 2. Trach and PEG tomorrow 02/21/19 at 1300 - consent on chart 3. Hold TF after MN tonight 4. Start D5 / ND@75cc/hr while NPO Discussed with patient's RN Kirsten Thank you, please call with questions. Subjective Date of service: 02/20/19 Narrative: Pt seen and examined. No overnight events or acute issues noted. Objective Vital Signs - 12hr 02/20/19 02/20/19 02/20/19 06:00 06:30 06:47 Temperature Pulse Rate 57 L 61 64 Pulse Rate [ Posterior Throughout] Respiratory 14 14 Rate Respiratory Rate [Posterior Throughout] Blood Pressure 173/80 161/83 158/87 O2 Sat by Pulse 100 100 Oximetry 02/20/19 02/20/19 02/20/19 07:00 07:30 07:33 Temperature Pulse Rate 73 77 70 Pulse Rate [ Posterior Throughout] Respiratory 19 16 Rate Respiratory Rate [Posterior Throughout] Blood Pressure 157/90 156/88 156/88 O2 Sat by Pulse 100 100 100 Oximetry 02/20/19 02/20/19 02/20/19 07:36 07:39 08:00 Temperature 98 F Pulse Rate 70 53 L Pulse Rate [ 65 Posterior Throughout] Respiratory 16 13 Rate Respiratory 15 Rate [Posterior Throughout] Blood Pressure 156/88 153/82 O2 Sat by Pulse 100 100 Oximetry 02/20/19 02/20/19 02/20/19 08:30 09:00 09:30 Temperature Pulse Rate 56 L 62 56 L Pulse Rate [ Posterior Throughout] Respiratory 13 11 L 13 Rate Respiratory Rate [Posterior Throughout] Blood Pressure 152/75 148/80 147/79 O2 Sat by Pulse 100 100 100 Oximetry 02/20/19 02/20/19 02/20/19 10:00 10:30 11:00 Temperature Pulse Rate 72 84 99 H Pulse Rate [ Posterior Throughout] Respiratory 15 19 28 H Rate Respiratory Rate [Posterior Throughout] Blood Pressure 165/90 174/99 160/88 O2 Sat by Pulse 100 100 100 Oximetry 02/20/19 02/20/19 02/20/19 11:30 11:38 11:41 Temperature Pulse Rate 98 H 92 H 98 H Pulse Rate [ Posterior Throughout] Respiratory 28 H Rate Respiratory Rate [Posterior Throughout] Blood Pressure 178/98 178/98 178/98 O2 Sat by Pulse 99 Oximetry 02/20/19 02/20/19 02/20/19 12:00 12:06 12:30 Temperature 97.4 F L Pulse Rate 77 72 95 H Pulse Rate [ Posterior Throughout] Respiratory 19 15 28 H Rate Respiratory Rate [Posterior Throughout] Blood Pressure 140/74 140/74 170/96 O2 Sat by Pulse 99 99 100 Oximetry 02/20/19 02/20/19 02/20/19 13:00 13:30 14:00 Temperature Pulse Rate 69 90 Pulse Rate [ Posterior Throughout] Respiratory 16 24 Rate Respiratory Rate [Posterior Throughout] Blood Pressure 140/74 138/69 177/97 O2 Sat by Pulse 98 100 98 Oximetry 02/20/19 02/20/19 02/20/19 14:30 14:34 14:39 Temperature Pulse Rate 95 H 97 H Pulse Rate [ 89 Posterior Throughout] Respiratory 29 H Rate Respiratory 21 Rate [Posterior Throughout] Blood Pressure 194/95 194/95 O2 Sat by Pulse 100 100 Oximetry 02/20/19 02/20/19 02/20/19 15:00 15:30 16:00 Temperature 97.8 F Pulse Rate 67 63 77 Pulse Rate [ Posterior Throughout] Respiratory 16 16 15 Rate Respiratory Rate [Posterior Throughout] Blood Pressure 132/65 118/61 112/70 O2 Sat by Pulse 99 100 100 Oximetry 02/20/19 02/20/19 16:30 17:15 Temperature Pulse Rate 75 84 Pulse Rate [ Posterior Throughout] Respiratory 16 Rate Respiratory Rate [Posterior Throughout] Blood Pressure 130/71 126/74 O2 Sat by Pulse 100 100 Oximetry - General physical appearance Narrative Exam: Gen: Awake on vent, NAD ENT: OGT and ETT in place. NO LAD CV: S1, S2+ Resp: on vent - Labs 02/20/19 07:05 02/20/19 07:05 Diabetes panel 02/20/19 Range/Units 07:05 Sodium 145 (137-145) mmol/L Potassium 4.0 (3.6-5.0) mmol/L Chloride 112.1 H (98-107) mmol/L Carbon Dioxide 26 (22-30) mmol/L BUN 84 H (7-17) mg/dL Creatinine 0.9 (0.7-1.2) mg/dL Glucose 150 H (65-100) mg/dL Calcium 8.4 (8.4-10.2) mg/dL Calcium panel 02/20/19 Range/Units 07:05 Calcium 8.4 (8.4-10.2) mg/dL Phosphorus 3.20 (2.5-4.5) mg/dL Pituitary panel 02/20/19 Range/Units 07:05 Sodium 145 (137-145) mmol/L Potassium 4.0 (3.6-5.0) mmol/L Chloride 112.1 H (98-107) mmol/L Carbon Dioxide 26 (22-30) mmol/L BUN 84 H (7-17) mg/dL Creatinine 0.9 (0.7-1.2) mg/dL Glucose 150 H (65-100) mg/dL Calcium 8.4 (8.4-10.2) mg/dL Adrenal panel 02/20/19 Range/Units 07:05 Sodium 145 (137-145) mmol/L Potassium 4.0 (3.6-5.0) mmol/L Chloride 112.1 H (98-107) mmol/L Carbon Dioxide 26 (22-30) mmol/L BUN 84 H (7-17) mg/dL Creatinine 0.9 (0.7-1.2) mg/dL Glucose 150 H (65-100) mg/dL Calcium 8.4 (8.4-10.2) mg/dL
[2019-02-20] MEDS ORDERED: D5W/0.45% NACL 1,000 ML IV SCH (18:00)
[2019-02-20] MEDS: INSULIN GLARGINE 100 UNITS/ML SUB-Q SCH (21:57)
[2019-02-21] MEDS: IPRATROPIUM/ALBUTEROL SULFATE 3 ML AMPUL.NEB IH SCH ×4 (01:53→19:52)
[2019-02-21] MEDS: INSULIN REGULAR, HUMAN 100 UNITS/1 ML SUB-Q SCH ×3 (02:19→17:05)
[2019-02-21] MEDS: dilTIAZem 60 MG TAB PO SCH ×2 (02:21→14:00)
--- NOTE | 2019-02-21 05:52 | Progress Note ---
Assessment and Plan - Severe sepsis with Strep pneumoniae bacteremia, pneumonia and meningitis: TERRENCE was negative for vegetations per cardiology. csf CULTURES Negative ID signed off, Patient to complete 14 days of abx. continue with Ceftriaxone Steroids per Manufacturing Associate - Acute respiratory failure on MV > 96 hours cont vent mx. per pulmonology Bronhcodilators Not Weaning off the vent. 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 would benefit from CTA H/N when renal function improves carotid doppleR- NEGATIVE ASPIRIN PER NEUROLOGY will start after trach and peg Some improvement in motor function Able to move her hands. - History of lupus? families is unclear on this medical history, but know that she has some form of autoimmune disease Compliments are reduced, CHESTER is positive, highly suspect lupus cont steroids Rheumatology evaluation outpatient - Acute metabolic encephalopathy Likely due to sepsis, EEG neg for seizure, neuro input appreciated - Type 2 MA SSI Glucerna - Hypothyroidism TSH elevated, synthroid dose increased -repeat TFTs in 4-6 wks - Hypokalemia Still supplement -Atrial fibrillation with RVR Management per Cardiology -PFO Per cardiology -Thrombocytopenia Resolved - Acute encephalopathy: secondary to meningitis. MRI brain showed acute ischemic changes in the posterior distribution of the R MCA, right frontal and parietal deep white matter and left frontal deep white matter, additional foci of ischemic change in b/l cerebellar hemispheres. - DVT PPx SCD only. No anticoagulation b/c Thrombocytopenia and GI with pepcid For PEG and Trach tomorrowand then LTAC - Code status: Full code The high probability of a clinically significant, sudden or life threatening deterioration of the [CARDIAC, NEUROLOGY, PULMONARY] system(s) required my full and direct attention, intervention and personal management. The aggregate critical care time was [45] minutes. This time is in addition to time spent performing reported procedures but includes the following: [X] Data Review and interpretation [X] Patient assessment and monitoring of vital signs [X] Documentation [X] Medication orders and management Subjective Date of service: 02/20/19 Principal diagnosis: Resp failure Interval history: Per hx 'Patient was altered and was not able to give history. History obtained from her son and her sister. 53-year-old -[place] female with past medical history significant for hypothyroidism, hypertension, autoimmune disease was brought via EMS to the emergency department with c/o of altered mental status. Night prior to admission she went out with family for dinner and she was confused, she was barely speaking, difficulty of finding words. EMS was called and patient refused to come to the hospital. This morning the patient was found in her bed unresponsive by her son called EMS and brought her to the hospital. Patient had cough for a month, she had sore throat for a week and had pain on swallowing and didn't eat anything last night. " Interval history Patient more alert and follows commands. Trach and PEG tomorrow Objective - Constitutional Vitals: Vital Signs - 12hr 02/20/19 02/20/19 02/20/19 18:00 18:29 18:30 Temperature Pulse Rate 74 69 62 Pulse Rate [ Anterior Bilateral Throughout] Respiratory 14 14 Rate Respiratory Rate [Anterior Bilateral Throughout] Blood Pressure 127/70 127/70 130/71 O2 Sat by Pulse 100 98 Oximetry 02/20/19 02/20/19 02/20/19 19:00 19:30 19:44 Temperature Pulse Rate 73 80 73 Pulse Rate [ Anterior Bilateral Throughout] Respiratory 16 17 17 Rate Respiratory Rate [Anterior Bilateral Throughout] Blood Pressure 135/74 149/76 127/70 O2 Sat by Pulse 97 100 100 Oximetry 02/20/19 02/20/19 02/20/19 19:48 19:58 20:00 Temperature 98.6 F Pulse Rate 73 74 Pulse Rate [ 78 Anterior Bilateral Throughout] Respiratory 17 Rate Respiratory 25 H Rate [Anterior Bilateral Throughout] Blood Pressure 149/76 161/87 O2 Sat by Pulse 100 100 Oximetry 02/20/19 02/20/19 02/20/19 20:02 20:30 21:00 Temperature Pulse Rate 84 84 73 Pulse Rate [ Anterior Bilateral Throughout] Respiratory 16 18 16 Rate Respiratory Rate [Anterior Bilateral Throughout] Blood Pressure 161/87 156/88 136/79 O2 Sat by Pulse 100 98 Oximetry 02/20/19 02/20/19 02/20/19 21:30 22:00 22:30 Temperature Pulse Rate 75 71 64 Pulse Rate [ Anterior Bilateral Throughout] Respiratory 18 15 14 Rate Respiratory Rate [Anterior Bilateral Throughout] Blood Pressure 144/86 144/74 138/76 O2 Sat by Pulse 99 100 99 Oximetry 02/20/19 02/20/1902/20/19 23:00 23:30 23:51 Temperature 98.9 F Pulse Rate 59 L 72 Pulse Rate [ Anterior Bilateral Throughout] Respiratory 14 12 Rate Respiratory Rate [Anterior Bilateral Throughout] Blood Pressure 123/69 136/83 O2 Sat by Pulse 100 100 Oximetry 02/21/19 02/21/19 02/21/19 00:00 00:07 00:30 Temperature Pulse Rate 92 H 74 58 L Pulse Rate [ Anterior Bilateral Throughout] Respiratory 14 14 Rate Respiratory Rate [Anterior Bilateral Throughout] Blood Pressure 134/77 134/77 127/74 O2 Sat by Pulse 100 100 100 Oximetry 02/21/19 02/21/19 02/21/19 02:05 02:21 04:00 Temperature 99.0 F Pulse Rate 67 Pulse Rate [ 58 L Anterior Bilateral Throughout] Respiratory Rate Respiratory 14 Rate [Anterior Bilateral Throughout] Blood Pressure 151/81 O2 Sat by Pulse Oximetry General appearance: Present: mild distress, well-nourished, other (Intubated) - EENT Eyes: PERRL, EOM intact ENT: hearing intact, clear oral mucosa Ears: bilateral: normal - Neck Neck: supple, normal ROM - Respiratory Respiratory effort: normal Respiratory: bilateral: CTA - Breasts Breasts: normal - Cardiovascular Heart rate: 88 Rhythm: regular Heart Sounds: Present: S1 & S2. Absent: gallop, rub Extremities: no ischemia, pulses intact, No edema, normal color, Full ROM - Gastrointestinal General gastrointestinal: Present: soft, non-tender, non-distended, normal bowel sounds - Genitourinary Female genitourinary: normal - Integumentary Integumentary: clear, warm, dry - Musculoskeletal Musculoskeletal: 1, strength equal bilaterally - Neurologic Neurologic: moves all extremities (Minimally) - Psychiatric Psychiatric: memory intact, appropriate mood/affect, intact judgment & insight - Labs CBC & Chem 7: 02/20/19 07:05 02/20/19 07:05 Labs: Abnormal lab results 02/20/19 02/20/19 02/20/19 Range/Units 05:40 07:05 07:05 RBC 3.34 L (3.65-5.03) M/mm3 Hgb 10.0 L (10.1-14.3) gm/dl RDW 16.4 H (13.2-15.2) % Seg Neuts % (Manual) 87.0 H (40.0-70.0) % Lymphocytes % (Manual) 4.0 L (13.4-35.0) % Lymphocytes # (Manual) 0.3 L (1.2-5.4) K/mm3 Chloride 112.1 H (98-107) mmol/L BUN 84 H (7-17) mg/dL Glucose 150 H (65-100) mg/dL POC Glucose 150 H (70-105) 02/20/19 02/20/19 02/20/19 Range/Units 11:27 18:19 21:57 RBC (3.65-5.03) M/mm3 Hgb (10.1-14.3) gm/dl RDW (13.2-15.2) % Seg Neuts % (Manual) (40.0-70.0) % Lymphocytes % (Manual) (13.4-35.0) % Lymphocytes # (Manual) (1.2-5.4) K/mm3 Chloride (98-107) mmol/L BUN (7-17) mg/dL Glucose (65-100) mg/dL POC Glucose 141 H 170 H 150 H (70-105) 02/20/19 Range/Units 23:02 RBC (3.65-5.03) M/mm3 Hgb (10.1-14.3) gm/dl RDW (13.2-15.2) % Seg Neuts % (Manual) (40.0-70.0) % Lymphocytes % (Manual) (13.4-35.0) % Lymphocytes # (Manual) (1.2-5.4) K/mm3 Chloride (98-107) mmol/L BUN (7-17) mg/dL Glucose (65-100) mg/dL POC Glucose 137 H (70-105)
[2019-02-21 07:35] LABS: Hematocrit 29.2 % (30.3-42.9); Hemoglobin 9.4 gm/dl (10.1-14.3); Mean Corpuscular HGB Conc 32 % (30-34); Mean Corpuscular Volume 92 fl (79-97); Red Blood Count 3.19 M/mm3 (3.65-5.03); Red Cell Distribution Width 16.2 % (13.2-15.2)
[2019-02-21 07:58] LABS: Alanine Aminotransferase 29 units/L (7-56); Albumin 1.9 g/dL (3.9-5); BUN/Creatinine Ratio 96; Blood Urea Nitrogen 86 mg/dL (7-17); Calcium 8.1 mg/dL (8.4-10.2); Hemolysis Index 26
[2019-02-21] MEDS ORDERED: SODIUM CHLORIDE 0.9% 1000 ML 1,000 ML IV SCH ×2 (08:00→13:00)
[2019-02-21 09:13] LABS: Basophils % (Manual) 0 % (0.0-1.8); Eosinophils % (Manual) 0 % (0.0-4.3); Total Cells Counted 100
[2019-02-21 09:20] LABS: Large Platelets Few
[2019-02-21 09:23] LABS: Platelet Estimate Cons; Schistocytes 1+; Target Cells Rare
[2019-02-21] MEDS: dexAMETHasone 4 MG/ML VIAL IV SCH ×2 (09:49→22:34)
[2019-02-21] MEDS: FAMOTIDINE 20 MG TAB PO SCH ×2 (09:50→22:35)
[2019-02-21] MEDS: FOLIC ACID 1 MG TAB PO SCH (09:50)
[2019-02-21] MEDS: LEVOTHYROXINE 125 MCG TAB PO SCH (09:50)
[2019-02-21] MEDS: MULTIVITAMINS 5 ML ORAL LIQUID PO SCH (09:50)
[2019-02-21 10:11] LABS: Platelet Count 170 K/mm3 (140-440)
--- NOTE | 2019-02-21 10:34 | Progress Note ---
Assessment and Plan Assessment and plan: 53 year old woman who was brought in by her family for unsteady gait, fatigue, and withdrawn behavior. I finally noticed difficult to it fine motor skills throughout that night she was having difficulty expressing herself. she was at a restaurant family I will continue to point to the menu. She became more disoriented and less responsive prompting family to bring her to the emergency room - Acute respiratory failure on MV > 96 hours Continue mechanical ventilator, plan for transfer to LTAC for slow weaning, For trach and PEG today Sepsis Strep pneumoniae bacteremia Right neck cellulitis vs neck LAD PNA meningitis TERRENCE neg for vegatations * Has completed antibiotics. steno in sputum likely colonizer Hyperglycemia, type 2 DM cont ssi, amd lantus Thrombocytopenia likely due to sepsis or autoimmune phenomenon, hematology input appreciated, hiv-negative, fibrinogen level is not low, PT PTT is normal. Status post platelet transfusion, improved Acute kidney injury Due to ATN Renal function improving IV fluids Nephrology input appreciated CVA involving distribution of R MCA likely an element of turner in vasculitis contributing to it, cont steroids MRA brain was wnl, Carotid Dopplers, no significant stenosis needs aspirin when chance of bleeding is low -Patient has PFO and A. fib. Will need anticoagulation when bleeding risk is reduced -Atrial fibrillation with RVR Management per Cardiology History of lupus? families is unclear on this medical history, but know that she has some form of autoimmune disease Compliments are reduced, CHESTER is positive, anti ds dna pending, highly suspect lupus cont steroids Acute metabolic encephalopathy Likely due to sepsis, eeg neg for seizure, neuro input appreciated Acute respiratory failure on MV > 96 hours cont vent per pulmonology Type 2 CA - cardiology input appreciated, rx the underlying cause Hypothyroidism TSH elevated, synthroid dose increased -repeat TFTs in 4-6 wks Hypokalemia, was supplemented Prognosis is guarded The high probability of a clinically significant, sudden or life threatening deterioration of the [CV, Neurology, renal] system(s) required my full and direct attention, intervention and personal management. The aggregate critical care time was [45] minutes. This time is in addition to time spent performing reported procedures but includes the following: [x] Data Review and interpretation [x] Patient assessment and monitoring of vital signs [x] Documentation [x] Medication orders and management History Interval history: no fever, no vomiting, no agitation -no seizures or vomiting Hospitalist Physical - Physical exam Narrative exam: General.: no distress, nontoxic HEENT: Moist mucous membranes, extraocular muscles intact, no lymphadenopathy Neck: supple Cardiac: S1-S2 heard Lungs: clear to auscultation bilaterally Abdomen: soft , nontender, nondistended, bowel sounds positive Extremities: no edema clubbing or cyanosis Skin: no rash or lesions Neurologic: left hemiparesis, opens eyes, obeys commands Psych: calm, and cooperative - Constitutional Vitals: Temp Pulse Resp BP Pulse Ox 97.9 F 53 L 14 141/68 100 02/21/19 08:00 02/21/19 07:30 02/21/19 07:30 02/21/19 07:30 02/21/19 07:30 General appearance: Present: mild distress, well-nourished, other (Intubated) Results - Labs CBC & Chem 7: 02/24/19 10:52 02/24/19 10:52 Labs: Laboratory Last Values WBC 6.6 K/mm3 (4.5-11.0) 02/21/19 07:10 RBC 3.19 M/mm3 (3.65-5.03) L 02/21/19 07:10 Hgb 9.4 gm/dl (10.1-14.3) L 02/21/19 07:10 Hct 29.2 % (30.3-42.9) L 02/21/19 07:10 MCV 92 fl (79-97) 02/21/19 07:10 MCH 30 pg (28-32) 02/21/19 07:10 MCHC 32 % (30-34) 02/21/19 07:10 RDW 16.2 % (13.2-15.2) H 02/21/19 07:10 Plt Count 170 K/mm3 (140-440) 02/21/19 07:10 Lymph % (Auto) Head Scorer 02/05/19 13:02 Ponce % (Auto) Head Scorer 02/05/19 13:02 Eos % (Auto) Head Scorer 02/05/19 13:02 Baso % (Auto) Head Scorer 02/05/19 13:02 Lymph # Head Scorer 02/05/19 13:02 Ponce # Head Scorer 02/05/19 13:02 Eos # Head Scorer 02/05/19 13:02 Baso # Head Scorer 02/05/19 13:02 Add Manual Diff Complete 02/21/19 07:10 Total Counted 100 02/21/19 07:10 Seg Neutrophils % Head Scorer 02/21/19 07:10 Seg Neuts % (Manual) 91.0 % (40.0-70.0) H 02/21/19 07:10 0 % 02/21/19 07:10 7.0 % (13.4-35.0) L 02/21/19 07:10 Reactive Lymphs % (Man) 0 % 02/21/19 07:10 1.0 % (0.0-7.3) 02/21/19 07:10 0 % (0.0-4.3) 02/21/19 07:10 0 % (0.0-1.8) 02/21/19 07:10 1.0 % 02/21/19 07:10 0 % 02/21/19 07:10 0 % 02/21/19 07:10 0 % 02/21/19 07:10 Nucleated RBC % Not Reportable 02/21/19 07:10 Seg Neutrophils # Head Scorer 02/05/19 13:02 Seg Neutrophils # Man 6.0 K/mm3 (1.8-7.7) 02/21/19 07:10 Band Neutrophils # 0.0 K/mm3 02/21/19 07:10 0.5 K/mm3 (1.2-5.4) L 02/21/19 07:10 Abs React Lymphs (Man) 0.0 K/mm3 02/21/19 07:10 0.1 K/mm3 (0.0-0.8) 02/21/19 07:10 0.0 K/mm3 (0.0-0.4) 02/21/19 07:10 0.0 K/mm3 (0.0-0.1) 02/21/19 07:10 0.1 K/mm3 02/21/19 07:10 0.0 K/mm3 02/21/19 07:10 0.0 K/mm3 02/21/19 07:10 Blast Cells # 0.0 K/mm3 02/21/19 07:10 WBC Morphology Not Reportable 02/21/19 07:10 Hypersegmented Neuts Not Reportable 02/21/19 07:10 Hyposegmented Neuts Not Reportable 02/21/19 07:10 Hypogranular Neuts Not Reportable 02/21/19 07:10 Cancelled 02/01/19 07:16 Not Reportable 02/21/19 07:10 Not Reportable 02/21/19 07:10 Not Reportable 02/21/19 07:10 Not Reportable 02/21/19 07:10 Not Reportable 02/21/19 07:10 Not Reportable 02/21/19 07:10 Cons 02/21/19 07:10 Not Reportable 02/21/19 07:10 Plt Clumps, EDTA Not Reportable 02/21/19 07:10 Few 02/21/19 07:10 Not Reportable 02/21/19 07:10 Not Reportable 02/21/19 07:10 Plt Morphology Comment Not Reportable 02/21/19 07:10 RBC Morphology Not Reportable 02/21/19 07:10 Dimorphic RBCs Not Reportable 02/21/19 07:10 Not Reportable 02/21/19 07:10 Not Reportable 02/21/19 07:10 Not Reportable 02/21/19 07:10 Cancelled 02/01/19 07:16 Not Reportable 02/21/19 07:10 Not Reportable 02/21/19 07:10 Not Reportable 02/21/19 07:10 Not Reportable 02/21/19 07:10 Not Reportable 02/21/19 07:10 Not Reportable 02/21/19 07:10 Rare 02/21/19 07:10 Not Reportable 02/21/19 07:10 Not Reportable 02/21/19 07:10 Cancelled 02/01/19 07:16 Not Reportable 02/21/19 07:10 Not Reportable 02/21/19 07:10 Not Reportable 02/21/19 07:10 Not Reportable 02/21/19 07:10 Not Reportable 02/21/19 07:10 Not Reportable 02/21/19 07:10 Not Reportable 02/21/19 07:10 Acanthocytes (Spur) Not Reportable 02/21/19 07:10 Rouleaux Not Reportable 02/21/19 07:10 Not Reportable 02/21/19 07:10 1+ 02/21/19 07:10 Not Reportable 02/21/19 07:10 ESR 76 mm/Hr (0-20) 02/01/19 16:51 Not Reportable 02/21/19 07:10 Hem Pathologist Commnt No 02/21/19 07:10 PT 16.3 Sec. (12.2-14.9) H 02/06/19 07:35 INR 1.35 (0.87-1.13) H 02/06/19 07:35 APTT 33.1 Sec. (24.2-36.6) 02/06/19 07:35 20.0 Sec. (15.1-19.6) H 02/01/19 07:16 479 mg/dl (211-480) 02/03/19 14:42 POC ABG pH 7.418 (7.35-7.45) 02/12/19 05:36 ABG pH 7.440 pH Units (7.350-7.450) 02/11/19 04:10 POC ABG pCO2 36.9 (35-45) 02/12/19 05:36 ABG pCO2 37.4 mm Hg 02/11/19 04:10 POC ABG pO2 92 (80-105) 02/12/19 05:36 ABG pO2 69.4 mm Hg (80.0-90.0) L 02/11/19 04:10 POC ABG HCO3 23.8 (22-26 mml/L) 02/12/19 05:36 ABG HCO3 24.8 mmol/L (20.0-26.0) 02/11/19 04:10 POC ABG Total CO2 25 (23-27mmol/L) 02/12/19 05:36 POC ABG O2 Sat 97 02/12/19 05:36 ABG O2 Saturation 94.2 % (95.0-99.0) L 02/11/19 04:10 ABG O2 Content 14.3 (0.0-44) 02/11/19 04:10 POC ABG Base Excess -1 ((-2) - (+3)mmol/L) 02/12/19 05:36 ABG Base Excess 0.8 mmol/L (-2.0-3.0) 02/11/19 04:10 ABG Hemoglobin 11.0 gm/dl (12.0-16.0) L 02/11/19 04:10 ABG Carboxyhemoglobin 1.5 % (0.0-5.0) 02/11/19 04:10 ABG Methemoglobin 0.7 % (0.0-1.5) 02/11/19 04:10 92.1 % (95.0-99.0) L 02/11/19 04:10 25 % 02/12/19 05:36 Sodium 144 mmol/L (137-145) 02/21/19 07:10 Potassium 4.3 mmol/L (3.6-5.0) 02/21/19 07:10 Chloride 112.4 mmol/L (98-107) H 02/21/19 07:10 Carbon Dioxide 21 mmol/L (22-30) L 02/21/19 07:10 15 mmol/L 02/21/19 07:10 BUN 86 mg/dL (7-17) H 02/21/19 07:10 0.9 mg/dL (0.7-1.2) 02/21/19 07:10 Estimated GFR > 60 ml/min 02/21/19 07:10 96 % 02/21/19 07:10 Glucose 126 mg/dL (65-100) H 02/21/19 07:10 POC Glucose 129 (70-105) H 02/21/19 05:44 Lactic Acid 1.40 mmol/L (0.7-2.0) 02/01/19 20:57 Calcium 8.1 mg/dL (8.4-10.2) L 02/21/19 07:10 Phosphorus 3.20 mg/dL (2.5-4.5) 02/20/19 07:05 Magnesium 1.70 mg/dL (1.7-2.3) 02/20/19 07:05 Iron 11 ug/dL (37-170) L 02/03/19 14:42 TIBC 88 mcg/dL (250-450) L 02/03/19 14:42 332.9 ng/mL (13.0-400.0) 02/03/19 14:42 0.30 mg/dL (0.1-1.2) 02/21/19 07:10 0.7 mg/dL (0-0.2) H 02/01/19 07:29 0.5 mg/dL 02/01/19 07:29 AST 56 units/L (5-40) H 02/21/19 07:10 ALT 29 units/L (7-56) 02/21/19 07:10 150 units/L (35-129) H 02/21/19 07:10 0.181 ng/mL (0.00-0.029) H* 02/01/19 07:16 32.30 mg/dL (0.00-1.30) H 02/01/19 17:04 5.7 g/dL (6.3-8.2) L 02/21/19 07:10 1.9 g/dL (3.9-5) L 02/21/19 07:10 0.5 % 02/21/19 07:10 Triglycerides 95 mg/dL (2-149) 02/01/19 07:16 Cholesterol 75 mg/dL (50-199) 02/01/19 07:16 34 mg/dL (50-130) L 02/01/19 07:16 20 mg/dL (40-59) L 02/01/19 07:16 3.75 % 02/01/19 07:16 Vitamin B12 1468 pg/mL (211-911) H 02/03/19 14:42 5.18 ng/mL (7.3-26.0) L 02/03/19 14:42 TSH 8.470 mlU/mL (0.270-4.200) H 02/01/19 07:43 Free T4 1.08 ng/dL (0.76-1.46) 02/01/19 07:43 Sara (Yellow) 02/01/19 09:45 Cloudy (Clear) 02/01/19 09:45 5.0 (5.0-7.0) 02/01/19 09:45 Ur Specific [place] 1.019 (1.003-1.030) 02/01/19 09:45 >500 mg/dL (Negative) 02/01/19 09:45 Neg mg/dL (Negative) 02/01/19 09:45 Neg mg/dL (Negative) 02/01/19 09:45 Mod (Negative) 02/01/19 09:45 Neg (Negative) 02/01/19 09:45 Neg (Negative) 02/01/19 09:45 < 2.0 mg/dL (<2.0) 02/01/19 09:45 Ur Leukocyte Esterase Neg (Negative) 02/01/19 09:45 10.0 /HPF (0.0-6.0) H 02/09/19 13:35 10.0 /HPF (0.0-6.0) 02/09/19 13:35 U Epithel Cells (Auto) 3.0 /HPF (0-13.0) 02/09/19 13:35 Amorphous Crystals 1+ 02/01/19 09:45 Few /HPF 02/09/19 13:35 92.9 mg/dL (0.1-20.0) H 02/09/19 18:54 Protein/Creatinin Ratio 1.25 02/09/19 18:54 116 mg/dL (5-11.8) H 02/09/19 18:54 Turbid 02/05/19 14:10 Colorless 02/05/19 14:10 1250 /mm3 (1-10) 02/05/19 14:10 30 /mm3 (0-0) 02/05/19 14:10 CSF Seg Neutrophils 30.0 % (0-6) 02/05/19 14:10 40.0 % (40-80) 02/05/19 14:10 CSF Reactive Lymphs 0 % 02/05/19 14:10 30.0 % (15-45) 02/05/19 14:10 0 % 02/05/19 14:10 0 % 02/05/19 14:10 C 02/05/19 14:10 38 mg/dL 02/05/19 14:10 140 mg/dL 02/05/19 14:10 Random Vancomycin 9.8 ug/mL (0-40.0) 02/03/19 03:30 CHESTER Screen Positive (Negative) H 02/01/19 17:04 CHESTER Titer 1:320 (Negative) H 02/01/19 17:04 CHESTER Pattern Speckled 02/01/19 17:04 Proteinase 3 (PR3) Ab <1.0 AI (<1.0) 02/01/19 19:28 Myeloperoxidase Ab <1.0 AI (<1.0) 02/01/19 19:28 Double Strand DNA Ab 1 IU/mL (<=4) 02/11/19 04:54 36 mg/dL (83-193) L 02/01/19 16:51 12 mg/dL (15-57) L 02/01/19 16:51 RPR Nonreactive (Nonreactive) 02/02/19 15:45 Hepatitis A IgM Ab Non-reactive (NonReactive) 02/02/19 19:29 Hep Bs Antigen Non-reactive (Negative) 02/02/19 19:29 Hep B Core IgM Ab Non-reactive (NonReactive) 02/02/19 19:29 Non-reactive (NonReactive) 02/02/19 19:29 HIV 1&2 Antibody Rapid Non react (Non React) 02/02/19 15:46 Non react (Non React) 02/02/19 15:46 Flexitest 1 02/02/19 13:02 Blood Type B POSITIVE 02/05/19 13:02 Active Medications - Current Medications Current Medications: Generic Name Dose Route Start Last Admin Trade Name Freq PRN Reason Stop Dose Admin Acetaminophen 650 mg 02/01/19 10:47 02/20/19 21:52 Tylenol PO 650 mg Q4H PRN Administration Pain MILD(1-3)/Fever >100.5/VALENZUELA Albuterol 2.5 mg 02/01/19 10:47 Proventil IH Q4HRT PRN Shortness Of Breath Albuterol/Ipratropium 1 ampul 02/01/19 12:00 02/21/19 07:26 Duoneb *Not For Prn Use* IH 1 ampul Q6HRT AMOL Administration Lipase/Protease/Amylase 1 each 02/05/19 11:04 02/13/19 21:35 Pancreemeka Hammond 10,500 Unit FEEDTUBE 1 each PRN PRN Administration For Clogged Feeding Tube Dexamethasone 2 mg 02/16/19 10:00 02/21/19 09:49 Decadron IV 2 mg Q12HR AMOL Administration Diltiazem HCl 60 mg 02/13/19 12:00 02/21/19 02:21 Cardizem PO 60 mg Q6H AMOL Administration Famotidine 20 mg 02/12/19 10:00 02/21/19 09:50 Pepcid PO Not Given BID AMOL Fentanyl 50 mcg 02/19/19 16:20 Sublimaze IV ONCE PRN Pain , Severe (7-10) Folic Acid 1 mg 02/06/19 10:00 02/21/19 09:50 Folvite PO Not Given QDAY [facility] Hydralazine HCl 10 mg 02/13/19 22:15 02/20/19 11:38 Apresoline IV 10 mg Q6H PRN Administration Hypertension Hydrophilic Ointment 1 applic 02/01/19 11:09 02/19/19 21:54 Vaseline Lip Therapy TP 1 applic Q2HR PRN Administration Dry Lips Dextrose/Sodium Chloride 1,000 mls @ 75 mls/hr 02/20/19 18:00 02/21/19 02:18 D5/0.45ns IV 75 mls/hr DIRECT AMOL Administration Sodium Chloride 1,000 mls @ 50 mls/hr 02/21/19 08:00 Nacl 0.9% 1000 Ml IV DIRECT AMOL Insulin Glargine 30 units 02/11/19 16:36 02/20/19 21:57 Lantus SUB-Q 30 units QHS AMOL Administration Insulin Human Regular 0 units 02/10/19 19:00 02/21/19 02:19 Humulin R SUB-Q Not Given Q6HR [facility] Protocol Levothyroxine Sodium 125 mcg 02/07/19 10:00 02/21/19 09:50 Synthroid PO Not Given QAM [facility] Multi-Ingred Cream/Lotion/Oil/Oint 1 applic 02/01/19 11:09 02/08/19 21:18 Artificial Tears Ophth Oint OU 1 applic Q4HR PRN Administration Dry Eye(s) Multivitamins 5 ml 02/06/19 10:00 02/21/19 09:50 Centrum Liq PO Not Given QDAY [facility] Ondansetron HCl 4 mg 02/01/19 10:47 Zofran IV Q8H PRN Nausea And Vomiting Simple Syrup 15 ml 02/05/19 11:04 Simple Syrup FEEDTUBE PRN PRN Hypoglycemia Simple Syrup 30 ml 02/05/19 11:04 Simple Syrup FEEDTUBE PRN PRN Hypoglycemia Sodium Bicarbonate 325 mg 02/05/19 11:04 02/13/19 21:35 Sodium Bicarbonate FEEDTUBE 325 mg PRN PRN Administration For Clogged Feeding Tube Sodium Chloride 10 ml 02/01/19 22:00 02/20/19 21:59 Sodium Chloride Flush Syringe 10 Ml IV 10 ml BID AMOL Administration Sodium Chloride 10 ml 02/01/19 10:47 Sodium Chloride Flush Syringe 10 Ml IV PRN PRN LINE FLUSH Nutrition/Malnutrition Assess - Dietary Evaluation Nutrition/Malnutrition Findings: Nutrition Notes Start: 02/02/19 15:11 Freq: Status: Active Protocol: Document 02/16/19 11:50 LM (Rec: 02/16/19 11:54 LM [email or web address]) Nutrition Notes Initial or Follow up Reassessment Current Diagnosis Acute Kidney Injury, Respiratory Failure Other Pertinent Diagnosis Hypothyroidism, Septic shock, Acute encephalopathy, UTI Current Diet Nepro at 40 ml/hr Labs/Tests BG 126 BUN 126 Pertinent Medications Decadron Height 5 ft 5 in Weight 94.93 kg [place] Body Weight (kg) 56.81 BMI 34.8 Subjective/Other Information TF running at 40 ml/hr. Pt tolerating TF. Pt remains on vent. Percent of energy/protein needs met: 92%/68% Burn Absent Trauma Absent #1 Nutrition Diagnosis Inadequate oral intake Diagnosis Progress(for reassessment Continues documentation) Is patient on ventilator? Yes Is Patient Ambulatory and/or Out of Bed No REE-([facility]-confined to bed) [phone] Calculation Used for Recommendations [facility] Additional Notes Protein Needs: 114g (2g/kg IBW ) Fluid Needs: 1 ml/kcal Nutrition Intervention Change Diet Order: Continue TF Nutrition Support: Nepro at 40ml/hr Flush with 170ml q4h Kcal 1,728 Protein (gm) 78 Fluid (mL) 697 Goal #1 Meet at least 75% of energy and portein needs Anticipated Discharge Needs: Unable to determine at this time Follow-Up By: 02/22/19 Additional Comments F/U for TF rate/tolerance
[2019-02-21] MEDS ORDERED: ceFAZolin/STERILE WATER 2 GM/20 ML SYRINGE IV NR (13:00)
[2019-02-21] MEDS ORDERED: ceFAZolin/Water 2 GM/20 ML 2 GM/20 ML SYRINGE IV ONE (13:19)
[2019-02-21] MEDS ORDERED: ROCURONIUM 50 MG/5 ML INJ IV ONE ×3 (13:21→16:25)
[2019-02-21] MEDS ORDERED: PROPOFOL 200 MG/20 ML VIAL IV ONE ×2 (13:21→13:24)
--- NOTE | 2019-02-21 13:22 | Progress Note ---
Assessment and Plan Imp: 1. Neck cellulitis versus LAD 2. Bacteremia 3. Severe sepsis 4. DIANA 5. Hyperkalemia 6. Lactic acidosis 7. Acute respiratory failure, hypoxia 8. Metabolic encephalopathy 9. 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 ? SLE 12. Acute CVA Rec: 1. ABX finished per ID; steno in sputum likely colonizer 2. Off IVFs 3. Off all sedation 4. No vegetations on TERRENCE 5. PSV daily; concerned she will not be able to clear her airway -> agree with/await trach & PEG which are scheduled for today 6. TFs, Pepcid, SCDs 7. Plan change to PO steroids once PEG is placed and usable 8. Complex decision-making Plan of care reviewed w/ family at bedside, they understand/agree Subjective Date of service: 02/21/19 Principal diagnosis: Resp failure Interval history: No events. No fevers. Awake, alert. Answers questions. Moves RUE and RLE. Yao ating PSV but currently on PRVC in anticipation of trach/PEG. Active Medications Acetaminophen (Tylenol) 650 mg PO Q4H PRN PRN Reason: Pain MILD(1-3)/Fever >100.5/VALENZUELA Last Admin: 02/20/19 21:52 Dose: 650 mg Documented by: Albuterol (Proventil) 2.5 mg IH Q4HRT PRN PRN Reason: Shortness Of Breath Albuterol/Ipratropium (Duoneb *Not For Prn Use*) 1 ampul IH Q6HRT [facility] Last Admin: 02/21/19 07:26 Dose: 1 ampul Documented by: Lipase/Protease/Amylase (Carola Hammond 10,500 Unit) 1 each FEEDTUBE PRN PRN PRN Reason: For Clogged Feeding Tube Last Admin: 02/13/19 21:35 Dose: 1 each Documented by: Cefazolin Sodium (Ancef/Sterile Water 2 Gm/20 Ml) 2 gm IV PREOP NR Stop: 02/21/19 23:59 Dexamethasone (Decadron) 2 mg IV Q12HR [facility] Last Admin: 02/21/19 09:49 Dose: 2 mg Documented by: Diltiazem HCl (Cardizem) 60 mg PO Q6H [facility] Last Admin: 02/21/19 02:21 Dose: 60 mg Documented by: Famotidine (Pepcid) 20 mg PO BID [facility] Last Admin: 02/21/19 09:50 Dose: Not Given Documented by: Fentanyl (Sublimaze) 50 mcg IV ONCE PRN PRN Reason: Pain , Severe (7-10) Folic Acid (Folvite) 1 mg PO QDAY [facility] Last Admin: 02/21/19 09:50 Dose: Not Given Documented by: Hydralazine HCl (Apresoline) 10 mg IV Q6H PRN PRN Reason: Hypertension Last Admin: 02/20/19 11:38 Dose: 10 mg Documented by: Hydrophilic Ointment (Vaseline Lip Therapy) 1 applic TP Q2HR PRN PRN Reason: Dry Lips Last Admin: 02/19/19 21:54 Dose: 1 applic Documented by: Dextrose/Sodium Chloride (D5/0.45ns) 1,000 mls @ 75 mls/hr IV DIRECT [facility] Last Admin: 02/21/19 02:18 Dose: 75 mls/hr Documented by: Sodium Chloride (Nacl 0.9% 1000 Ml) 1,000 mls @ 50 mls/hr IV DIRECT AMOL Sodium Chloride (Nacl 0.9% 1000 Ml) 1,000 mls @ 50 mls/hr IV DIRECT [facility] Insulin Glargine (Lantus) 30 units SUB-Q QHS [facility] Last Admin: 02/20/19 21:57 Dose: 30 units Documented by: Insulin Human Regular (Humulin R) 0 units SUB-Q Q6HR [facility]; Protocol Last Admin: 02/21/19 02:19 Dose: Not Given Documented by: Levothyroxine Sodium (Synthroid) 125 mcg PO QAM [facility] Last Admin: 02/21/19 09:50 Dose: Not Given Documented by: Multi-Ingred Cream/Lotion/Oil/Oint (Artificial Tears Ophth Oint) 1 applic OU Q4HR PRN PRN Reason: Dry Eye(s) Last Admin: 02/08/19 21:18 Dose: 1 applic Documented by: Multivitamins (Centrum Liq) 5 ml PO QDAY [facility] Last Admin: 02/21/19 09:50 Dose: Not Given Documented by: Ondansetron HCl (Zofran) 4 mg IV Q8H PRN PRN Reason: Nausea And Vomiting Simple Syrup (Simple Syrup) 15 ml FEEDTUBE PRN PRN PRN Reason: Hypoglycemia Simple Syrup (Simple Syrup) 30 ml FEEDTUBE PRN PRN PRN Reason: Hypoglycemia Sodium Bicarbonate (Sodium Bicarbonate) 325 mg FEEDTUBE PRN PRN PRN Reason: For Clogged Feeding Tube Last Admin: 02/13/19 21:35 Dose: 325 mg Documented by: Sodium Chloride (Sodium Chloride Flush Syringe 10 Ml) 10 ml IV BID AMOL Last Admin: 02/20/19 21:59 Dose: 10 ml Documented by: Sodium Chloride (Sodium Chloride Flush Syringe 10 Ml) 10 ml IV PRN PRN PRN Reason: LINE FLUSH Objective Vital Signs - 12hr 02/21/19 02/21/19 02/21/19 01:30 02:00 02:05 Temperature Pulse Rate 71 64 Pulse Rate [ 58 L Anterior Bilateral Throughout] Respiratory 14 13 Rate Respiratory 14 Rate [Anterior Bilateral Throughout] Blood Pressure 147/82 151/81 O2 Sat by Pulse 100 100 Oximetry 02/21/19 02/21/19 02/21/19 02:21 02:30 03:00 Temperature Pulse Rate 67 74 65 Pulse Rate [ Anterior Bilateral Throughout] Respiratory 17 16 Rate Respiratory Rate [Anterior Bilateral Throughout] Blood Pressure 151/81 156/89 150/86 O2 Sat by Pulse 100 100 Oximetry 02/21/19 02/21/19 02/21/19 03:30 04:00 04:30 Temperature 99.0 F Pulse Rate 65 71 110 H Pulse Rate [ Anterior Bilateral Throughout] Respiratory 14 15 26 H Rate Respiratory Rate [Anterior Bilateral Throughout] Blood Pressure 146/79 149/90 201/107 O2 Sat by Pulse 100 100 97 Oximetry 02/21/19 02/21/19 02/21/19 04:50 05:00 05:30 Temperature Pulse Rate 72 87 66 Pulse Rate [ Anterior Bilateral Throughout] Respiratory 18 14 Rate Respiratory Rate [Anterior Bilateral Throughout] Blood Pressure 152/87 128/68 O2 Sat by Pulse 100 100 100 Oximetry 02/21/19 02/21/19 02/21/19 06:00 06:30 07:00 Temperature Pulse Rate 65 61 59 L Pulse Rate [ Anterior Bilateral Throughout] Respiratory 13 14 14 Rate Respiratory Rate [Anterior Bilateral Throughout] Blood Pressure 130/67 120/68 124/69 O2 Sat by Pulse 100 100 100 Oximetry 02/21/19 02/21/19 02/21/19 07:20 07:26 07:30 Temperature Pulse Rate 62 53 L Pulse Rate [ 53 L Anterior Bilateral Throughout] Respiratory 14 Rate Respiratory 14 Rate [Anterior Bilateral Throughout] Blood Pressure 124/69 141/68 O2 Sat by Pulse 100 100 Oximetry 02/21/19 02/21/19 02/21/19 08:00 08:30 09:00 Temperature 97.9 F Pulse Rate 64 55 L 72 Pulse Rate [ Anterior Bilateral Throughout] Respiratory 14 13 13 Rate Respiratory Rate [Anterior Bilateral Throughout] Blood Pressure 146/80 149/74 149/74 O2 Sat by Pulse 96 100 97 Oximetry 02/21/19 02/21/19 02/21/19 09:30 10:00 10:30 Temperature Pulse Rate 70 65 66 Pulse Rate [ Anterior Bilateral Throughout] Respiratory 12 14 16 Rate Respiratory Rate [Anterior Bilateral Throughout] Blood Pressure 150/78 149/77 163/87 O2 Sat by Pulse 100 100 100 Oximetry 02/21/19 02/21/19 02/21/19 11:00 11:40 12:00 Temperature 97.6 F Pulse Rate 49 L 52 L Pulse Rate [ Anterior Bilateral Throughout] Respiratory 14 Rate Respiratory Rate [Anterior Bilateral Throughout] Blood Pressure 157/74 151/84 O2 Sat by Pulse 95 100 Oximetry Constitutional: other (orally intubated on mechanical ventilator. Not on sedation, awake, critically ill) Eyes: non-icteric ENT: oropharynx moist Neck: supple Effort: normal Ascultation: Bilateral: other (coarse BS bilaterally) Cardiovascular: regular rate and rhythm (no mrg) Gastrointestinal: normoactive bowel sounds, soft, non-tender, non-distended Integumentary: normal Extremities: no cyanosis, no edema, pink and warm Neurologic: other (L sided hemiparesis) Psychiatric: mood appropriate, affect normal CBC and BMP: 02/21/19 07:10 02/21/19 07:10 ABG, PT/INR, D-dimer: ABG POC ABG pH 7.418 (7.35-7.45) 02/12/19 05:36 ABG pH 7.440 pH Units (7.350-7.450) 02/11/19 04:10 POC ABG pCO2 36.9 (35-45) 02/12/19 05:36 ABG pCO2 37.4 mm Hg 02/11/19 04:10 POC ABG pO2 92 (80-105) 02/12/19 05:36 ABG pO2 69.4 mm Hg (80.0-90.0) L 02/11/19 04:10 POC ABG HCO3 23.8 (22-26 mml/L) 02/12/19 05:36 POC ABG Total CO2 25 (23-27mmol/L) 02/12/19 05:36 POC ABG O2 Sat 97 02/12/19 05:36 ABG O2 Saturation 94.2 % (95.0-99.0) L 02/11/19 04:10 PT/INR, D-dimer PT 16.3 Sec. (12.2-14.9) H 02/06/19 07:35 INR 1.35 (0.87-1.13) H 02/06/19 07:35 Abnormal lab findings: Abnormal Labs 02/01/19 02/01/19 02/01/19 07:16 07:16 07:16 WBC 17.7 H RBC Hgb Hct RDW 16.9 H Plt Count 62 L Seg Neuts % (Manual) 95.0 H Lymphocytes % (Manual) 0 L Seg Neutrophils # Man 16.8 H Lymphocytes # (Manual) 0.0 L PT 15.0 H INR 1.21 H APTT Thrombin Time 20.0 H POC ABG pH ABG pH POC ABG pCO2 POC ABG pO2 ABG pO2 ABG HCO3 ABG O2 Saturation ABG Base Excess ABG Hemoglobin Oxyhemoglobin Sodium 135 L Potassium Chloride 97.7 L Carbon Dioxide 19 L BUN 51 H Creatinine 4.5 H Glucose 112 H POC Glucose Lactic Acid Calcium Magnesium Iron TIBC Direct Bilirubin AST Alkaline Phosphatase Troponin T 0.181 H* C-Reactive Protein Total Protein Albumin LDL Cholesterol Direct 34 L HDL Cholesterol 20 L Vitamin B12 Folate TSH Urine WBC (Auto) Urine Creatinine Urine Total Protein CHE[place] Screen CHE[place] Titer Complement C3 Complement C4 02/01/19 02/01/19 02/01/19 07:29 07:29 07:43 WBC RBC Hgb Hct RDW Plt Count Seg Neuts % (Manual) Lymphocytes % (Manual) Seg Neutrophils # Man Lymphocytes # (Manual) PT INR APTT Thrombin Time POC ABG pH ABG pH POC ABG pCO2 POC ABG pO2 ABG pO2 ABG HCO3 ABG O2 Saturation ABG Base Excess ABG Hemoglobin Oxyhemoglobin Sodium Potassium Chloride Carbon Dioxide BUN Creatinine Glucose POC Glucose Lactic Acid 4.80 H* Calcium Magnesium Iron TIBC Direct Bilirubin 0.7 H AST 42 H Alkaline Phosphatase Troponin T C-Reactive Protein Total Protein 8.9 H Albumin 2.3 L LDL Cholesterol Direct HDL Cholesterol Vitamin B12 Folate TSH 8.470 H Urine WBC (Auto) Urine Creatinine Urine Total Protein [place] Screen [place] Titer Complement C3 Complement C4 02/01/19 02/01/19 02/01/19 09:45 11:32 13:50 WBC RBC Hgb Hct RDW Plt Count Seg Neuts % (Manual) Lymphocytes % (Manual) Seg Neutrophils # Man Lymphocytes # (Manual) PT INR APTT Thrombin Time POC ABG pH 7.289 L ABG pH POC ABG pCO2 POC ABG pO2 355 H ABG pO2 ABG HCO3 ABG O2 Saturation ABG Base Excess ABG Hemoglobin Oxyhemoglobin Sodium Potassium Chloride Carbon Dioxide BUN Creatinine Glucose POC Glucose Lactic Acid 4.10 H* Calcium Magnesium Iron TIBC Direct Bilirubin AST Alkaline Phosphatase Troponin T C-Reactive Protein Total Protein Albumin LDL Cholesterol Direct HDL Cholesterol Vitamin B12 Folate TSH Urine WBC (Auto) 16.0 H Urine Creatinine Urine Total Protein [place] Screen CHE[place] Titer Complement C3 Complement C4 02/01/19 02/01/19 02/01/19 15:15 16:20 16:51 WBC RBC Hgb Hct RDW Plt Count Seg Neuts % (Manual) Lymphocytes % (Manual) Seg Neutrophils # Man Lymphocytes # (Manual) PT INR APTT Thrombin Time POC ABG pH ABG pH POC ABG pCO2 POC ABG pO2 ABG pO2 ABG HCO3 ABG O2 Saturation ABG Base Excess ABG Hemoglobin Oxyhemoglobin Sodium Potassium Chloride Carbon Dioxide BUN Creatinine Glucose POC Glucose 115 H Lactic Acid 4.50 H* Calcium Magnesium Iron TIBC Direct Bilirubin AST Alkaline Phosphatase Troponin T C-Reactive Protein Total Protein Albumin LDL Cholesterol Direct HDL Cholesterol Vitamin B12 Folate TSH Urine WBC (Auto) Urine Creatinine Urine Total Protein [place] Screen [place] Titer Complement C3 36 L Complement C4 02/01/19 02/01/19 02/01/19 16:51 17:03 17:04 WBC RBC Hgb Hct RDW Plt Count Seg Neuts % (Manual) Lymphocytes % (Manual) Seg Neutrophils # Man Lymphocytes # (Manual) PT INR APTT Thrombin Time POC ABG pH ABG pH POC ABG pCO2 POC ABG pO2 ABG pO2 ABG HCO3 ABG O2 Saturation ABG Base Excess ABG Hemoglobin Oxyhemoglobin Sodium Potassium Chloride Carbon Dioxide BUN Creatinine Glucose POC Glucose Lactic Acid 2.80 H* Calcium Magnesium Iron TIBC Direct Bilirubin AST Alkaline Phosphatase Troponin T C-Reactive Protein 32.30 H Total Protein Albumin LDL Cholesterol Direct HDL Cholesterol Vitamin B12 Folate TSH Urine WBC (Auto) Urine Creatinine Urine Total Protein [place] Screen [place] Titer Complement C3 Complement C4 12 L 02/01/19 02/01/19 02/02/19 17:04 19:28 05:16 WBC RBC Hgb Hct RDW Plt Count Seg Neuts % (Manual) Lymphocytes % (Manual) Seg Neutrophils # Man Lymphocytes # (Manual) PT INR APTT Thrombin Time POC ABG pH ABG pH POC ABG pCO2 POC ABG pO2 148 H ABG pO2 ABG HCO3 ABG O2 Saturation ABG Base Excess ABG Hemoglobin Oxyhemoglobin Sodium Potassium Chloride 107.1 H Carbon Dioxide 18 L BUN 52 H Creatinine 3.1 H Glucose 120 H POC Glucose Lactic Acid Calcium 7.4 L Magnesium Iron TIBC Direct Bilirubin AST Alkaline Phosphatase Troponin T C-Reactive Protein Total Protein Albumin LDL Cholesterol Direct HDL Cholesterol Vitamin B12 Folate TSH Urine WBC (Auto) Urine Creatinine Urine Total Protein [place] Screen Positive H CHESTER Titer 1:320 H Complement C3 Complement C4 02/02/19 02/02/19 02/03/19 05:53 05:53 03:30 WBC 14.3 H RBC 5.16 H Hgb 14.9 H Hct 46.2 H D RDW 16.9 H 17.0 H Plt Count 43 L 18 L* Seg Neuts % (Manual) 93.0 H Lymphocytes % (Manual) 2.0 L Seg Neutrophils # Man 13.3 H Lymphocytes # (Manual) 0.3 L PT INR APTT Thrombin Time POC ABG pH ABG pH POC ABG pCO2 POC ABG pO2 ABG pO2 ABG HCO3 ABG O2 Saturation ABG Base Excess ABG Hemoglobin Oxyhemoglobin Sodium Potassium 5.1 H Chloride Carbon Dioxide 21 L BUN 57 H Creatinine 3.3 H Glucose 147 H POC Glucose Lactic Acid Calcium 7.5 L Magnesium Iron TIBC Direct Bilirubin AST 51 H Alkaline Phosphatase Troponin T C-Reactive Protein Total Protein Albumin 1.6 L LDL Cholesterol Direct HDL Cholesterol Vitamin B12 Folate TSH Urine WBC (Auto) Urine Creatinine Urine Total Protein [place] Screen [place] Titer Complement C3 Complement C4 02/03/19 02/03/19 02/03/19 03:30 05:55 14:42 WBC RBC Hgb Hct RDW Plt Count Seg Neuts % (Manual) Lymphocytes % (Manual) Seg Neutrophils # Man Lymphocytes # (Manual) PT INR APTT Thrombin Time POC ABG pH ABG pH POC ABG pCO2 POC ABG pO2 117 H ABG pO2 ABG HCO3 ABG O2 Saturation ABG Base Excess ABG Hemoglobin Oxyhemoglobin Sodium Potassium Chloride Carbon Dioxide BUN 65 H Creatinine 2.7 H Glucose 117 H POC Glucose Lactic Acid Calcium 7.2 L Magnesium Iron TIBC Direct Bilirubin AST Alkaline Phosphatase Troponin T C-Reactive Protein Total Protein Albumin LDL Cholesterol Direct HDL Cholesterol Vitamin B12 1468 H Folate TSH Urine WBC (Auto) Urine Creatinine Urine Total Protein [place] Screen [place] Titer Complement C3 Complement C4 02/03/19 02/03/19 02/03/19 14:42 14:42 14:42 WBC RBC 3.17 L Hgb 9.4 L D Hct 28.3 L D RDW 16.9 H Plt Count 18 L* Seg Neuts % (Manual) Lymphocytes % (Manual) Seg Neutrophils # Man Lymphocytes # (Manual) PT INR APTT Thrombin Time POC ABG pH ABG pH POC ABG pCO2 POC ABG pO2 ABG pO2 ABG HCO3 ABG O2 Saturation ABG Base Excess ABG Hemoglobin Oxyhemoglobin Sodium Potassium Chloride Carbon Dioxide BUN Creatinine Glucose POC Glucose Lactic Acid Calcium Magnesium Iron 11 L TIBC 88 L Direct Bilirubin AST Alkaline Phosphatase Troponin T C-Reactive Protein Total Protein Albumin LDL Cholesterol Direct HDL Cholesterol Vitamin B12 Folate 5.18 L TSH Urine WBC (Auto) Urine Creatinine Urine Total Protein [place] Screen [place] Titer Complement C3 Complement C4 02/03/19 02/03/19 02/04/19 14:42 14:42 03:35 WBC RBC 3.22 L Hgb 9.5 L Hct 28.5 L RDW 16.4 H Plt Count 18 L* Seg Neuts % (Manual) Lymphocytes % (Manual) Seg Neutrophils # Man Lymphocytes # (Manual) PT 15.8 H INR 1.29 H APTT 38.2 H Thrombin Time POC ABG pH ABG pH 7.470 H POC ABG pCO2 POC ABG pO2 ABG pO2 ABG HCO3 28.4 H ABG O2 Saturation ABG Base Excess 4.5 H ABG Hemoglobin 10.1 L Oxyhemoglobin 94.7 L Sodium Potassium Chloride Carbon Dioxide BUN Creatinine Glucose POC Glucose Lactic Acid Calcium Magnesium Iron TIBC Direct Bilirubin AST Alkaline Phosphatase Troponin T C-Reactive Protein Total Protein Albumin LDL Cholesterol Direct HDL Cholesterol Vitamin B12 Folate TSH Urine WBC (Auto) Urine Creatinine Urine Total Protein [place] Screen [place] Titer Complement C3 Complement C4 02/04/19 02/04/19 02/05/19 05:02 05:02 03:50 WBC RBC Hgb Hct RDW 16.5 H Plt Count 20 L Seg Neuts % (Manual) 94.0 H Lymphocytes % (Manual) 2.0 L Seg Neutrophils # Man 9.2 H Lymphocytes # (Manual) 0.2 L PT INR APTT Thrombin Time POC ABG pH ABG pH 7.485 H POC ABG pCO2 POC ABG pO2 ABG pO2 ABG HCO3 27.5 H ABG O2 Saturation ABG Base Excess 3.9 H ABG Hemoglobin 9.1 L Oxyhemoglobin 94.8 L Sodium Potassium Chloride Carbon Dioxide BUN 66 H Creatinine 1.7 H Glucose 127 H POC Glucose Lactic Acid Calcium 7.6 L Magnesium Iron TIBC Direct Bilirubin AST Alkaline Phosphatase Troponin T C-Reactive Protein Total Protein Albumin LDL Cholesterol Direct HDL Cholesterol Vitamin B12 Folate TSH Urine WBC (Auto) Urine Creatinine Urine Total Protein [place] Screen [place] Titer Complement C3 Complement C4 02/05/19 02/05/19 02/05/19 13:02 14:36 20:03 WBC 11.7 H RBC 3.48 L 3.24 L Hgb 10.0 L 9.4 L Hct 29.2 L RDW 16.3 H 16.3 H Plt Count 50 L D 71 L Seg Neuts % (Manual) 95.0 H 95.0 H Lymphocytes % (Manual) 0 L 2.0 L Seg Neutrophils # Man 11.1 H 10.2 H Lymphocytes # (Manual) 0.0 L 0.2 L PT INR APTT Thrombin Time POC ABG pH ABG pH POC ABG pCO2 POC ABG pO2 ABG pO2 ABG HCO3 ABG O2 Saturation ABG Base Excess ABG Hemoglobin Oxyhemoglobin Sodium Potassium Chloride Carbon Dioxide BUN 67 H Creatinine 1.5 H Glucose POC Glucose Lactic Acid Calcium 7.7 L Magnesium Iron TIBC Direct Bilirubin AST Alkaline Phosphatase Troponin T C-Reactive Protein Total Protein Albumin LDL Cholesterol Direct HDL Cholesterol Vitamin B12 Folate TSH Urine WBC (Auto) Urine Creatinine Urine Total Protein [place] Screen [place] Titer Complement C3 Complement C4 02/06/19 02/06/19 02/06/19 05:39 07:35 18:34 WBC RBC Hgb Hct RDW Plt Count Seg Neuts % (Manual) Lymphocytes % (Manual) Seg Neutrophils # Man Lymphocytes # (Manual) PT 16.3 H INR 1.35 H APTT Thrombin Time POC ABG pH ABG pH POC ABG pCO2 POC ABG pO2 ABG pO2 ABG HCO3 ABG O2 Saturation ABG Base Excess ABG Hemoglobin Oxyhemoglobin Sodium Potassium Chloride Carbon Dioxide BUN Creatinine Glucose POC Glucose 107 H 121 H Lactic Acid Calcium Magnesium Iron TIBC Direct Bilirubin AST Alkaline Phosphatase Troponin T C-Reactive Protein Total Protein Albumin LDL Cholesterol Direct HDL Cholesterol Vitamin B12 Folate TSH Urine WBC (Auto) Urine Creatinine Urine Total Protein [place] Screen [place] Titer Complement C3 Complement C4 02/06/19 02/07/19 02/07/19 Unknown 01:07 04:15 WBC RBC Hgb Hct RDW Plt Count Seg Neuts % (Manual) Lymphocytes % (Manual) Seg Neutrophils # Man Lymphocytes # (Manual) PT INR APTT Thrombin Time POC ABG pH ABG pH POC ABG pCO2 POC ABG pO2 ABG pO2 ABG HCO3 ABG O2 Saturation ABG Base Excess ABG Hemoglobin 5.0 L Oxyhemoglobin 94.9 L 94.8 L Sodium 146 H Potassium Chloride Carbon Dioxide BUN 85 H Creatinine 1.8 H Glucose 163 H POC Glucose Lactic Acid Calcium 8.3 L Magnesium Iron TIBC Direct Bilirubin AST Alkaline Phosphatase Troponin T C-Reactive Protein Total Protein Albumin LDL Cholesterol Direct HDL Cholesterol Vitamin B12 Folate TSH Urine WBC (Auto) Urine Creatinine Urine Total Protein [place] Screen [place] Titer Complement C3 Complement C4 02/07/19 02/07/19 02/08/19 08:22 10:58 04:40 WBC RBC Hgb Hct RDW 16.0 H Plt Count 84 L Seg Neuts % (Manual) 97.0 H Lymphocytes % (Manual) 0 L Seg Neutrophils # Man 9.5 H Lymphocytes # (Manual) 0.0 L PT INR APTT Thrombin Time POC ABG pH 7.477 H ABG pH 7.467 H POC ABG pCO2 34.8 L POC ABG pO2 118 H ABG pO2 ABG HCO3 ABG O2 Saturation ABG Base Excess ABG Hemoglobin 8.4 L Oxyhemoglobin Sodium Potassium Chloride Carbon Dioxide BUN Creatinine Glucose POC Glucose Lactic Acid Calcium Magnesium Iron TIBC Direct Bilirubin AST Alkaline Phosphatase Troponin T C-Reactive Protein Total Protein Albumin LDL Cholesterol Direct HDL Cholesterol Vitamin B12 Folate TSH Urine WBC (Auto) Urine Creatinine Urine Total Protein [place] Screen [place] Titer Complement C3 Complement C4 08/02/09/19 02/09/19 03:17 03:17 04:35 WBC 14.9 H RBC 3.32 L Hgb 9.6 L Hct RDW 15.9 H Plt Count 113 L Seg Neuts % (Manual) 96.0 H Lymphocytes % (Manual) 1.0 L Seg Neutrophils # Man 14.3 H Lymphocytes # (Manual) 0.1 L PT INR APTT Thrombin Time POC ABG pH ABG pH 7.478 H POC ABG pCO2 POC ABG pO2 ABG pO2 94.5 H ABG HCO3 ABG O2 Saturation ABG Base Excess ABG Hemoglobin 6.1 L Oxyhemoglobin Sodium 147 H Potassium Chloride 110.4 H Carbon Dioxide BUN 114 H Creatinine 2.2 H Glucose 270 H POC Glucose Lactic Acid Calcium 8.1 L Magnesium Iron TIBC Direct Bilirubin AST Alkaline Phosphatase Troponin T C-Reactive Protein Total Protein Albumin 1.6 L LDL Cholesterol Direct HDL Cholesterol Vitamin B12 Folate TSH Urine WBC (Auto) Urine Creatinine Urine Total Protein [place] Screen [place] Titer Complement C3 Complement C4 02/09/19 02/09/19 02/10/19 13:35 18:54 05:13 WBC RBC Hgb Hct RDW Plt Count Seg Neuts % (Manual) Lymphocytes % (Manual) Seg Neutrophils # Man Lymphocytes # (Manual) PT INR APTT Thrombin Time POC ABG pH ABG pH 7.478 H POC ABG pCO2 POC ABG pO2 ABG pO2 ABG HCO3 ABG O2 Saturation ABG Base Excess ABG Hemoglobin 8.1 L Oxyhemoglobin 94.9 L Sodium Potassium Chloride Carbon Dioxide BUN Creatinine Glucose POC Glucose Lactic Acid Calcium Magnesium Iron TIBC Direct Bilirubin AST Alkaline Phosphatase Troponin T C-Reactive Protein Total Protein Albumin LDL Cholesterol Direct HDL Cholesterol Vitamin B12 Folate TSH Urine WBC (Auto) 10.0 H Urine Creatinine 92.9 H Urine Total Protein 116 H [place] Screen [place] Titer Complement C3 Complement C4 02/10/19 02/10/19 02/11/19 18:14 23:24 04:10 WBC RBC Hgb Hct RDW Plt Count Seg Neuts % (Manual) Lymphocytes % (Manual) Seg Neutrophils # Man Lymphocytes # (Manual) PT INR APTT Thrombin Time POC ABG pH ABG pH POC ABG pCO2 POC ABG pO2 ABG pO2 69.4 L ABG HCO3 ABG O2 Saturation 94.2 L ABG Base Excess ABG Hemoglobin 11.0 L Oxyhemoglobin 92.1 L Sodium Potassium Chloride Carbon Dioxide BUN Creatinine Glucose POC Glucose 453 H 403 H Lactic Acid Calcium Magnesium Iron TIBC Direct Bilirubin AST Alkaline Phosphatase Troponin T C-Reactive Protein Total Protein Albumin LDL Cholesterol Direct HDL Cholesterol Vitamin B12 Folate TSH Urine WBC (Auto) Urine Creatinine Urine Total Protein [place] Screen [place] Titer Complement C3 Complement C4 02/11/19 02/11/19 02/11/19 04:54 04:54 05:40 WBC 12.5 H RBC 3.18 L Hgb 9.4 L Hct 29.4 L RDW 16.6 H Plt Count Seg Neuts % (Manual) 94.0 H Lymphocytes % (Manual) 4.0 L Seg Neutrophils # Man 11.8 H Lymphocytes # (Manual) 0.5 L PT INR APTT Thrombin Time POC ABG pH ABG pH POC ABG pCO2 POC ABG pO2 ABG pO2 ABG HCO3 ABG O2 Saturation ABG Base Excess ABG Hemoglobin Oxyhemoglobin Sodium 151 H Potassium Chloride 112.6 H Carbon Dioxide BUN 127 H Creatinine 1.8 H Glucose 396 H POC Glucose 410 H Lactic Acid Calcium 8.3 L Magnesium Iron TIBC Direct Bilirubin AST Alkaline Phosphatase 132 H Troponin T C-Reactive Protein Total Protein Albumin 2.1 L LDL Cholesterol Direct HDL Cholesterol Vitamin B12 Folate TSH Urine WBC (Auto) Urine Creatinine Urine Total Protein [place] Screen [place] Titer Complement C3 Complement C4 02/11/19 02/11/19 02/11/19 11:30 17:58 23:18 WBC RBC Hgb Hct RDW Plt Count Seg Neuts % (Manual) Lymphocytes % (Manual) Seg Neutrophils # Man Lymphocytes # (Manual) PT INR APTT Thrombin Time POC ABG pH ABG pH POC ABG pCO2 POC ABG pO2 ABG pO2 ABG HCO3 ABG O2 Saturation ABG Base Excess ABG Hemoglobin Oxyhemoglobin Sodium Potassium Chloride Carbon Dioxide BUN Creatinine Glucose POC Glucose 361 H 414 H 392 H Lactic Acid Calcium Magnesium Iron TIBC Direct Bilirubin AST Alkaline Phosphatase Troponin T C-Reactive Protein Total Protein Albumin LDL Cholesterol Direct HDL Cholesterol Vitamin B12 Folate TSH Urine WBC (Auto) Urine Creatinine Urine Total Protein [place] Screen [place] Titer Complement C3 Complement C4 02/12/19 02/12/19 02/12/19 05:32 05:36 05:36 WBC 11.9 H RBC 3.40 L Hgb 9.9 L Hct RDW 16.4 H Plt Count Seg Neuts % (Manual) 97.0 H Lymphocytes % (Manual) 2.0 L Seg Neutrophils # Man 11.5 H Lymphocytes # (Manual) 0.2 L PT INR APTT Thrombin Time POC ABG pH ABG pH POC ABG pCO2 POC ABG pO2 ABG pO2 ABG HCO3 ABG O2 Saturation ABG Base Excess ABG Hemoglobin Oxyhemoglobin Sodium 146 H Potassium 3.5 L Chloride 110.2 H Carbon Dioxide BUN 118 H Creatinine 1.4 H Glucose 382 H POC Glucose 361 H Lactic Acid Calcium 8.3 L Magnesium Iron TIBC Direct Bilirubin AST Alkaline Phosphatase 137 H Troponin T C-Reactive Protein Total Protein Albumin 2.0 L LDL Cholesterol Direct HDL Cholesterol Vitamin B12 Folate TSH Urine WBC (Auto) Urine Creatinine Urine Total Protein [place] Screen [place] Titer Complement C3 Complement C4 02/12/19 02/12/19 02/12/19 11:51 17:18 21:46 WBC RBC Hgb Hct RDW Plt Count Seg Neuts % (Manual) Lymphocytes % (Manual) Seg Neutrophils # Man Lymphocytes # (Manual) PT INR APTT Thrombin Time POC ABG pH ABG pH POC ABG pCO2 POC ABG pO2 ABG pO2 ABG HCO3 ABG O2 Saturation ABG Base Excess ABG Hemoglobin Oxyhemoglobin Sodium Potassium Chloride Carbon Dioxide BUN Creatinine Glucose POC Glucose 357 H 280 H 222 H Lactic Acid Calcium Magnesium Iron TIBC Direct Bilirubin AST Alkaline Phosphatase Troponin T C-Reactive Protein Total Protein Albumin LDL Cholesterol Direct HDL Cholesterol Vitamin B12 Folate TSH Urine WBC (Auto) Urine Creatinine Urine Total Protein CHESTER Screen CHESTER Titer Complement C3 Complement C4 02/12/19 02/13/19 02/13/19 23:58 03:41 03:41 WBC 11.6 H RBC 3.53 L Hgb Hct RDW 15.8 H Plt Count 98 L Seg Neuts % (Manual) 97.0 H Lymphocytes % (Manual) 2.0 L Seg Neutrophils # Man 11.3 H Lymphocytes # (Manual) 0.2 L PT INR APTT Thrombin Time POC ABG pH ABG pH POC ABG pCO2 POC ABG pO2 ABG pO2 ABG HCO3 ABG O2 Saturation ABG Base Excess ABG Hemoglobin Oxyhemoglobin Sodium Potassium 3.4 L Chloride 109.7 H Carbon Dioxide BUN 108 H Creatinine Glucose 182 H POC Glucose 208 H Lactic Acid Calcium Magnesium Iron TIBC Direct Bilirubin AST 45 H Alkaline Phosphatase 150 H Troponin T C-Reactive Protein Total Protein Albumin 1.8 L LDL Cholesterol Direct HDL Cholesterol Vitamin B12 Folate TSH Urine WBC (Auto) Urine Creatinine Urine Total Protein [place] Screen [place] Titer Complement C3 Complement C4 02/13/19 02/13/19 02/13/19 05:40 11:31 18:01 WBC RBC Hgb Hct RDW Plt Count Seg Neuts % (Manual) Lymphocytes % (Manual) Seg Neutrophils # Man Lymphocytes # (Manual) PT INR APTT Thrombin Time POC ABG pH ABG pH POC ABG pCO2 POC ABG pO2 ABG pO2 ABG HCO3 ABG O2 Saturation ABG Base Excess ABG Hemoglobin Oxyhemoglobin Sodium Potassium Chloride Carbon Dioxide BUN Creatinine Glucose POC Glucose 179 H 193 H 151 H Lactic Acid Calcium Magnesium Iron TIBC Direct Bilirubin AST Alkaline Phosphatase Troponin T C-Reactive Protein Total Protein Albumin LDL Cholesterol Direct HDL Cholesterol Vitamin B12 Folate TSH Urine WBC (Auto) Urine Creatinine Urine Total Protein [place] Screen [place] Titer Complement C3 Complement C4 02/13/19 02/14/19 02/14/19 23:47 04:03 04:03 WBC RBC Hgb Hct RDW 16.0 H Plt Count Seg Neuts % (Manual) 94.0 H Lymphocytes % (Manual) 2.0 L Seg Neutrophils # Man 8.9 H Lymphocytes # (Manual) 0.2 L PT INR APTT Thrombin Time POC ABG pH ABG pH POC ABG pCO2 POC ABG pO2 ABG pO2 ABG HCO3 ABG O2 Saturation ABG Base Excess ABG Hemoglobin Oxyhemoglobin Sodium Potassium 3.4 L Chloride 108.7 H Carbon Dioxide 21 L BUN 96 H Creatinine Glucose 129 H POC Glucose 144 H Lactic Acid Calcium 8.2 L Magnesium Iron TIBC Direct Bilirubin AST 65 H Alkaline Phosphatase 164 H Troponin T C-Reactive Protein Total Protein Albumin 1.7 L LDL Cholesterol Direct HDL Cholesterol Vitamin B12 Folate TSH Urine WBC (Auto) Urine Creatinine Urine Total Protein [place] Screen [place] Titer Complement C3 Complement C4 02/14/19 02/14/19 02/14/19 04:03 05:10 11:51 WBC RBC Hgb Hct RDW Plt Count Seg Neuts % (Manual) Lymphocytes % (Manual) Seg Neutrophils # Man Lymphocytes # (Manual) PT INR APTT Thrombin Time POC ABG pH ABG pH POC ABG pCO2 POC ABG pO2 ABG pO2 ABG HCO3 ABG O2 Saturation ABG Base Excess ABG Hemoglobin Oxyhemoglobin Sodium Potassium Chloride Carbon Dioxide BUN Creatinine Glucose POC Glucose 145 H 192 H Lactic Acid Calcium Magnesium 1.60 L Iron TIBC Direct Bilirubin AST Alkaline Phosphatase Troponin T C-Reactive Protein Total Protein Albumin LDL Cholesterol Direct HDL Cholesterol Vitamin B12 Folate TSH Urine WBC (Auto) Urine Creatinine Urine Total Protein [place] Screen [place] Titer Complement C3 Complement C4 02/14/19 02/14/19 02/15/19 17:42 23:33 05:33 WBC RBC Hgb Hct RDW 15.9 H Plt Count Seg Neuts % (Manual) 95.0 H Lymphocytes % (Manual) 1.0 L Seg Neutrophils # Man 7.9 H Lymphocytes # (Manual) 0.1 L PT INR APTT Thrombin Time POC ABG pH ABG pH POC ABG pCO2 POC ABG pO2 ABG pO2 ABG HCO3 ABG O2 Saturation ABG Base Excess ABG Hemoglobin Oxyhemoglobin Sodium Potassium Chloride Carbon Dioxide BUN Creatinine Glucose POC Glucose 229 H 204 H Lactic Acid Calcium Magnesium Iron TIBC Direct Bilirubin AST Alkaline Phosphatase Troponin T C-Reactive Protein Total Protein Albumin LDL Cholesterol Direct HDL Cholesterol Vitamin B12 Folate TSH Urine WBC (Auto) Urine Creatinine Urine Total Protein [place] Screen [place] Titer Complement C3 Complement C4 02/15/19 02/15/19 02/15/19 05:33 05:41 12:30 WBC RBC Hgb Hct RDW Plt Count Seg Neuts % (Manual) Lymphocytes % (Manual) Seg Neutrophils # Man Lymphocytes # (Manual) PT INR APTT Thrombin Time POC ABG pH ABG pH POC ABG pCO2 POC ABG pO2 ABG pO2 ABG HCO3 ABG O2 Saturation ABG Base Excess ABG Hemoglobin Oxyhemoglobin Sodium Potassium Chloride 108.2 H Carbon Dioxide BUN 91 H Creatinine Glucose 197 H POC Glucose 209 H 168 H Lactic Acid Calcium 8.2 L Magnesium Iron TIBC Direct Bilirubin AST 61 H Alkaline Phosphatase 215 H Troponin T C-Reactive Protein Total Protein Albumin 1.9 L LDL Cholesterol Direct HDL Cholesterol Vitamin B12 Folate TSH Urine WBC (Auto) Urine Creatinine Urine Total Protein [place] Screen [place] Titer Complement C3 Complement C4 02/15/19 02/15/19 02/16/19 18:17 23:53 04:58 WBC RBC Hgb Hct RDW 15.7 H Plt Count Seg Neuts % (Manual) 93.0 H Lymphocytes % (Manual) 5.0 L Seg Neutrophils # Man Lymphocytes # (Manual) 0.4 L PT INR APTT Thrombin Time POC ABG pH ABG pH POC ABG pCO2 POC ABG pO2 ABG pO2 ABG HCO3 ABG O2 Saturation ABG Base Excess ABG Hemoglobin Oxyhemoglobin Sodium Potassium Chloride Carbon Dioxide BUN Creatinine Glucose POC Glucose 161 H 160 H Lactic Acid Calcium Magnesium Iron TIBC Direct Bilirubin AST Alkaline Phosphatase Troponin T C-Reactive Protein Total Protein Albumin LDL Cholesterol Direct HDL Cholesterol Vitamin B12 Folate TSH Urine WBC (Auto) Urine Creatinine Urine Total Protein [place] Screen [place] Titer Complement C3 Complement C4 02/16/19 02/16/19 02/16/19 04:58 12:27 17:08 WBC RBC Hgb Hct RDW Plt Count Seg Neuts % (Manual) Lymphocytes % (Manual) Seg Neutrophils # Man Lymphocytes # (Manual) PT INR APTT Thrombin Time POC ABG pH ABG pH POC ABG pCO2 POC ABG pO2 ABG pO2 ABG HCO3 ABG O2 Saturation ABG Base Excess ABG Hemoglobin Oxyhemoglobin Sodium Potassium Chloride 108.3 H Carbon Dioxide BUN 90 H Creatinine Glucose 126 H POC Glucose 125 H 180 H Lactic Acid Calcium 8.1 L Magnesium Iron TIBC Direct Bilirubin AST 52 H Alkaline Phosphatase 188 H Troponin T C-Reactive Protein Total Protein Albumin 2.0 L LDL Cholesterol Direct HDL Cholesterol Vitamin B12 Folate TSH Urine WBC (Auto) Urine Creatinine Urine Total Protein [place] Screen [place] Titer Complement C3 Complement C4 02/16/19 02/16/19 02/17/19 21:52 23:51 04:43 WBC RBC 3.48 L Hgb Hct RDW 15.8 H Plt Count Seg Neuts % (Manual) 87.0 H Lymphocytes % (Manual) 6.0 L Seg Neutrophils # Man Lymphocytes # (Manual) 0.5 L PT INR APTT Thrombin Time POC ABG pH ABG pH POC ABG pCO2 POC ABG pO2 ABG pO2 ABG HCO3 ABG O2 Saturation ABG Base Excess ABG Hemoglobin Oxyhemoglobin Sodium Potassium Chloride Carbon Dioxide BUN Creatinine Glucose POC Glucose 177 H 161 H Lactic Acid Calcium Magnesium Iron TIBC Direct Bilirubin AST Alkaline Phosphatase Troponin T C-Reactive Protein Total Protein Albumin LDL Cholesterol Direct HDL Cholesterol Vitamin B12 Folate TSH Urine WBC (Auto) Urine Creatinine Urine Total Protein [place] Screen [place] Titer Complement C3 Complement C4 02/17/19 02/17/19 02/17/19 04:43 05:05 18:16 WBC RBC Hgb Hct RDW Plt Count Seg Neuts % (Manual) Lymphocytes % (Manual) Seg Neutrophils # Man Lymphocytes # (Manual) PT INR APTT Thrombin Time POC ABG pH ABG pH POC ABG pCO2 POC ABG pO2 ABG pO2 ABG HCO3 ABG O2 Saturation ABG Base Excess ABG Hemoglobin Oxyhemoglobin Sodium Potassium Chloride 110.2 H Carbon Dioxide 21 L BUN 90 H Creatinine Glucose 164 H POC Glucose 166 H 123 H Lactic Acid Calcium 8.2 L Magnesium Iron TIBC Direct Bilirubin AST 59 H Alkaline Phosphatase 224 H Troponin T C-Reactive Protein Total Protein 6.2 L Albumin 1.9 L LDL Cholesterol Direct HDL Cholesterol Vitamin B12 Folate TSH Urine WBC (Auto) Urine Creatinine Urine Total Protein [place] Screen [place] Titer Complement C3 Complement C4 02/17/19 02/18/19 02/18/19 22:15 00:14 05:23 WBC RBC Hgb Hct RDW Plt Count Seg Neuts % (Manual) Lymphocytes % (Manual) Seg Neutrophils # Man Lymphocytes # (Manual) PT INR APTT Thrombin Time POC ABG pH ABG pH POC ABG pCO2 POC ABG pO2 ABG pO2 ABG HCO3 ABG O2 Saturation ABG Base Excess ABG Hemoglobin Oxyhemoglobin Sodium Potassium Chloride Carbon Dioxide BUN Creatinine Glucose POC Glucose 135 H 142 H 175 H Lactic Acid Calcium Magnesium Iron TIBC Direct Bilirubin AST Alkaline Phosphatase Troponin T C-Reactive Protein Total Protein Albumin LDL Cholesterol Direct HDL Cholesterol Vitamin B12 Folate TSH Urine WBC (Auto) Urine Creatinine Urine Total Protein [place] Screen [place] Titer Complement C3 Complement C4 02/18/19 02/18/19 02/18/19 11:20 17:14 22:03 WBC RBC Hgb Hct RDW Plt Count Seg Neuts % (Manual) Lymphocytes % (Manual) Seg Neutrophils # Man Lymphocytes # (Manual) PT INR APTT Thrombin Time POC ABG pH ABG pH POC ABG pCO2 POC ABG pO2 ABG pO2 ABG HCO3 ABG O2 Saturation ABG Base Excess ABG Hemoglobin Oxyhemoglobin Sodium Potassium Chloride Carbon Dioxide BUN Creatinine Glucose POC Glucose 139 H 139 H 150 H Lactic Acid Calcium Magnesium Iron TIBC Direct Bilirubin AST Alkaline Phosphatase Troponin T C-Reactive Protein Total Protein Albumin LDL Cholesterol Direct HDL Cholesterol Vitamin B12 Folate TSH Urine WBC (Auto) Urine Creatinine Urine Total Protein [place] Screen [place] Titer Complement C3 Complement C4 02/18/19 02/19/19 02/19/19 23:53 05:15 11:19 WBC RBC Hgb Hct RDW Plt Count Seg Neuts % (Manual) Lymphocytes % (Manual) Seg Neutrophils # Man Lymphocytes # (Manual) PT INR APTT Thrombin Time POC ABG pH ABG pH POC ABG pCO2 POC ABG pO2 ABG pO2 ABG HCO3 ABG O2 Saturation ABG Base Excess ABG Hemoglobin Oxyhemoglobin Sodium Potassium Chloride Carbon Dioxide BUN Creatinine Glucose POC Glucose 140 H 161 H 146 H Lactic Acid Calcium Magnesium Iron TIBC Direct Bilirubin AST Alkaline Phosphatase Troponin T C-Reactive Protein Total Protein Albumin LDL Cholesterol Direct HDL Cholesterol Vitamin B12 Folate TSH Urine WBC (Auto) Urine Creatinine Urine Total Protein [place] Screen [place] Titer Complement C3 Complement C4 02/19/19 02/20/19 02/20/19 17:34 01:11 05:40 WBC RBC Hgb Hct RDW Plt Count Seg Neuts % (Manual) Lymphocytes % (Manual) Seg Neutrophils # Man Lymphocytes # (Manual) PT INR APTT Thrombin Time POC ABG pH ABG pH POC ABG pCO2 POC ABG pO2 ABG pO2 ABG HCO3 ABG O2 Saturation ABG Base Excess ABG Hemoglobin Oxyhemoglobin Sodium Potassium Chloride Carbon Dioxide BUN Creatinine Glucose POC Glucose 133 H 137 H 150 H Lactic Acid Calcium Magnesium Iron TIBC Direct Bilirubin AST Alkaline Phosphatase Troponin T C-Reactive Protein Total Protein Albumin LDL Cholesterol Direct HDL Cholesterol Vitamin B12 Folate TSH Urine WBC (Auto) Urine Creatinine Urine Total Protein [place] Screen [place] Titer Complement C3 Complement C4 02/20/19 02/20/19 02/20/19 07:05 07:05 11:27 WBC RBC 3.34 L Hgb 10.0 L Hct RDW 16.4 H Plt Count Seg Neuts % (Manual) 87.0 H Lymphocytes % (Manual) 4.0 L Seg Neutrophils # Man Lymphocytes # (Manual) 0.3 L PT INR APTT Thrombin Time POC ABG pH ABG pH POC ABG pCO2 POC ABG pO2 ABG pO2 ABG HCO3 ABG O2 Saturation ABG Base Excess ABG Hemoglobin Oxyhemoglobin Sodium Potassium Chloride 112.1 H Carbon Dioxide BUN 84 H Creatinine Glucose 150 H POC Glucose 141 H Lactic Acid Calcium Magnesium Iron TIBC Direct Bilirubin AST Alkaline Phosphatase Troponin T C-Reactive Protein Total Protein Albumin LDL Cholesterol Direct HDL Cholesterol Vitamin B12 Folate TSH Urine WBC (Auto) Urine Creatinine Urine Total Protein [place] Screen [place] Titer Complement C3 Complement C4 02/20/19 02/20/19 02/20/19 18:19 21:57 23:02 WBC RBC Hgb Hct RDW Plt Count Seg Neuts % (Manual) Lymphocytes % (Manual) Seg Neutrophils # Man Lymphocytes # (Manual) PT INR APTT Thrombin Time POC ABG pH ABG pH POC ABG pCO2 POC ABG pO2 ABG pO2 ABG HCO3 ABG O2 Saturation ABG Base Excess ABG Hemoglobin Oxyhemoglobin Sodium Potassium Chloride Carbon Dioxide BUN Creatinine Glucose POC Glucose 170 H 150 H 137 H Lactic Acid Calcium Magnesium Iron TIBC Direct Bilirubin AST Alkaline Phosphatase Troponin T C-Reactive Protein Total Protein Albumin LDL Cholesterol Direct HDL Cholesterol Vitamin B12 Folate TSH Urine WBC (Auto) Urine Creatinine Urine Total Protein [place] Screen [place] Titer Complement C3 Complement C4 02/21/19 02/21/19 02/21/19 05:44 07:10 07:10 WBC RBC 3.19 L Hgb 9.4 L Hct 29.2 L RDW 16.2 H Plt Count Seg Neuts % (Manual) 91.0 H Lymphocytes % (Manual) 7.0 L Seg Neutrophils # Man Lymphocytes # (Manual) 0.5 L PT INR APTT Thrombin Time POC ABG pH ABG pH POC ABG pCO2 POC ABG pO2 ABG pO2 ABG HCO3 ABG O2 Saturation ABG Base Excess ABG Hemoglobin Oxyhemoglobin Sodium Potassium Chloride 112.4 H Carbon Dioxide 21 L BUN 86 H Creatinine Glucose 126 H POC Glucose 129 H Lactic Acid Calcium 8.1 L Magnesium Iron TIBC Direct Bilirubin AST 56 H Alkaline Phosphatase 150 H Troponin T C-Reactive Protein Total Protein 5.7 L Albumin 1.9 L LDL Cholesterol Direct HDL Cholesterol Vitamin B12 Folate TSH Urine WBC (Auto) Urine Creatinine Urine Total Protein [place] Screen CHE[place] Titer Complement C3 Complement C4 Chest x-ray: report reviewed, image reviewed
[2019-02-21] MEDS ORDERED: ePHEDrine SULFATE 50 MG/1 ML INJ ONE (13:24)
[2019-02-21] MEDS ORDERED: fentaNYL 100 MCG/2 ML INJ ONE (14:46)
--- NOTE | 2019-02-21 15:34 | Anesthesia Day of Surgery ---
Anesthesia Day of Surgery - Day of Surgery Patient Examined: Yes Patient H&P Reviewed: Yes Patient is NPO: Yes
--- NOTE | 2019-02-21 15:34 | Anesthesia Consultation ---
Anesthesia Consult and Med Hx Date of service: 02/21/19 - Airway Intubation Access Assessment: Possibly Difficult (oETT insitu) - Pulmonary Exam CTA: No (transmitted upper airway sounds) - Cardiac Exam Cardiac Exam: RRR - Pre-Operative Health Status ASA Pre-Surgery Classification: ASA3, Emergency Proposed Anesthetic Plan: General - Pulmonary Hx Respiratory Symptoms: Yes (respiratory failure w/ vent dependence) - Cardiovascular System Hx Hypertension: Yes Hx Heart Attack/AMI: No (demand ischemia on admission; normal EF on more recent TTE/TERRENCE) Hx Cardia Arrhythmia: Yes (a-fib w/ RVR this admission now resolved) Hx Pacemaker: No Hx Internal Defibrillator: No Hx Valvular Heart Disease: Yes (moderate MR) - Central Nervous System Hx Seizures: No CVA: No - Endocrine Hx Renal Disease: Yes (DIANA; resolved) Hx End Stage Renal Disease: No Hx Cirrhosis: No Hx Liver Disease: No Hx Insulin Dependent Diabetes: No Hx Non-Insulin Dependent Diabetes: No Hx Hypothyroidism: Yes Hx Hyperthyroidism: No - Hematic Hx Anemia: Yes Hx Sickle Cell Disease: No - Other Systems Hx Obesity: Yes - Additional Comments Anesthesia Medical History Comments: Presented with AMS. Hospital course complicated by sepsis 2/2 strep bacteremia/PNA/meningitis, DIANA, respiratory failure on ventilator, NSTEMI, and af-b w/ RVR. Now off sedation but remains ventilator dependent. Originally scheduled for bedside perc trach/PEG however patient was transported emergently to OR for open trach.
--- NOTE | 2019-02-21 16:20 | Post Operative Note ---
Date of procedure: 02/21/19 Pre-op diagnosis: VDRF Post-op diagnosis: same Findings: 1. bleeding from confluence of superficial veins consistent with large anterior jugular vein overlying trachea 2. 8F proximal XLT tracheostomy placed under bronchoscopic guidance Procedure: Percutaneous converted to Open tracheostomy Anesthesia: JOEY, local Surgeon: MIR CARUSO Warehousing Technician: ROSE GRANT Estimated blood loss: other (25-35cc) Pathology: none Condition: stable Disposition: ICU
[2019-02-21] MEDS ORDERED: dexAMETHasone 20 MG/5 ML VIAL ONE (16:25)
[2019-02-21] MEDS ORDERED: ONDANSETRON 4 MG/2 ML INJ ONE (16:25)
--- NOTE | 2019-02-21 17:26 | XRay Report ---
CHEST 1 VIEW 4:44 PM INDICATION / CLINICAL INFORMATION: Tracheostomy placement. COMPARISON: 02/12/2019. FINDINGS: SUPPORT DEVICES: The endotracheal and nasogastric tubes have been removed. There is a new tracheostom y tube in good position without complication. HEART / MEDIASTINUM: Cardiomegaly is stable. LUNGS / PLEURA: Pleuroparenchymal opacity in the left retrocardiac region with obscuration of the hem idiaphragm has not changed. There is mild patchy parenchymal disease in the right mid to lower lung, likely representing subsegmental atelectasis. No pneumothorax. ADDITIONAL FINDINGS: No significant additional findings. IMPRESSION: 1. Tracheostomy tube without complication. 2. Persistent pleuroparenchymal opacity in the left lower hemithorax. Signer Name: Krunal Crowder MD Signed: 02/21/2019 5:22 PM Workstation Name: [id number]
[2019-02-21] MEDS: hydrALAZINE 20 MG/1 ML INJ IV PRN (18:01)
[2019-02-21] MEDS: INSULIN GLARGINE 100 UNITS/ML SUB-Q SCH (22:00)
[2019-02-21] MEDS ORDERED: SIMPLE SYRUP 15 ML FEEDTUBE PRN ×2 (22:30)
[2019-02-21] MEDS ORDERED: SODIUM BICARBONATE 325 MG TAB FEEDTUBE PRN (22:30)
[2019-02-21] MEDS ORDERED: LIPASE 10,500/PROTEASE 25,000/AMYLASE 43,750 (UNITS) DR CAP FEEDTUBE PRN (22:30)
[2019-02-22] MEDS: INSULIN REGULAR, HUMAN 100 UNITS/1 ML SUB-Q SCH ×5 (00:15→23:47)
[2019-02-22] MEDS: dilTIAZem 60 MG TAB PO SCH ×5 (00:33→23:49)
[2019-02-22] MEDS: IPRATROPIUM/ALBUTEROL SULFATE 3 ML AMPUL.NEB IH SCH ×4 (03:18→20:26)
[2019-02-22 04:45] LABS: Hematocrit 30.8 % (30.3-42.9); Hemoglobin 9.9 gm/dl (10.1-14.3); Mean Corpuscular HGB Conc 32 % (30-34); Mean Corpuscular Volume 92 fl (79-97); Platelet Count 167 K/mm3 (140-440); Red Blood Count 3.35 M/mm3 (3.65-5.03); Red Cell Distribution Width 16.8 % (13.2-15.2)
[2019-02-22 04:58] LABS: BUN/Creatinine Ratio 92; Blood Urea Nitrogen 83 mg/dL (7-17); Calcium 8.4 mg/dL (8.4-10.2); Hemolysis Index 25
[2019-02-22 06:08] LABS: Band Neutrophils # (Manual) 0.1 K/mm3; Basophils % (Manual) 0 % (0.0-1.8); Eosinophils % (Manual) 0 % (0.0-4.3); Monocytes % (Manual) 0 % (0.0-7.3); Total Cells Counted 100
[2019-02-22 06:12] LABS: Target Cells Rare
[2019-02-22 06:13] LABS: Schistocytes 1+
[2019-02-22 06:14] LABS: Large Platelets Few; Platelet Estimate Consistent w Auto
--- NOTE | 2019-02-22 07:03 | Hem/Onc Progress Note ---
Assessment and Plan 1. h/o Thrombocytopenia, sepsis/infection/antibiotic related. Folate level is low, B12 is normal. Serum iron is low, but ferritin is not low. HIV negative. Fibrinogen level is not low. PT, PTT is not abnormal. Supportive care at this time will help the patient. 2. Diabetes. 3. Hypothyroidism. 4. History of renal impairment, on supportive care. 5. Intubation for respiratory issues. 6. Neurology team saw the patient. Neurology thinks it is septic metabolic encephalopathy. I will follow the patient during inpatient stay. 02/22 plt normalized low folate on replacement pt still - on vent - trach done PEG done anemia - Patient Problems (1) Thrombocytopenia Current Visit: Yes Status: Acute Subjective Date of service: 02/22/19 Principal diagnosis: h/o low plt Interval history: s/p peg and trach Objective - Exam Narrative Exam: Pain - not evaluable General appearance intubated Performance status complete dependent Eyes - no icterus ENT - no bleeding - on vent - TRACH LNs cervical not palpable Neck - no LN Respiratory Normal Breath sounds - CTA anteriorly CVS S1 S2 + Extremities normal temperature General GI Soft - PEG + Rectal deferred female - deferred Skin warm Musculoskeletal rt arm movements + Neurologically not verbal - Constitutional Vitals: Last Vital Signs Temp 98.4 F 02/22/19 04:00 Pulse 80 02/22/19 06:00 Resp 13 02/22/19 06:00 BP 152/89 02/22/19 06:00 Pulse Ox 100 02/22/19 06:00 - Labs Lab Results: Laboratory Results - last 24 hr 02/21/19 02/21/19 02/21/19 07:10 07:10 11:28 WBC 6.6 RBC 3.19 L Hgb 9.4 L Hct 29.2 L MCV 92 MCH 30 MCHC 32 RDW 16.2 H Plt Count 170 Add Manual Diff Complete Total Counted 100 Seg Neutrophils % [employer] Seg Neuts % (Manual) 91.0 H Band Neutrophils % 0 Lymphocytes % (Manual) 7.0 L Reactive Lymphs % (Man) 0 Monocytes % (Manual) 1.0 Eosinophils % (Manual) 0 Basophils % (Manual) 0 Metamyelocytes % 1.0 Myelocytes % 0 Promyelocytes % 0 Blast Cells % 0 Nucleated RBC % Not Reportable Seg Neutrophils # Man 6.0 Band Neutrophils # 0.0 Lymphocytes # (Manual) 0.5 L Abs React Lymphs (Man) 0.0 Monocytes # (Manual) 0.1 Eosinophils # (Manual) 0.0 Basophils # (Manual) 0.0 Metamyelocytes # 0.1 Myelocytes # 0.0 Promyelocytes # 0.0 Blast Cells # 0.0 WBC Morphology Not Reportable Hypersegmented Neuts Not Reportable Hyposegmented Neuts Not Reportable Hypogranular Neuts Not Reportable Smudge Cells Not Reportable Toxic Granulation Not Reportable Toxic Vacuolation Not Reportable Dohle Bodies Not Reportable Pelger-Huet Anomaly Not Reportable Raghav Rods Not Reportable Platelet Estimate Cons Clumped Platelets Not Reportable Plt Clumps, EDTA Not Reportable Large Platelets Few Giant Platelets Not Reportable Platelet Satelliting Not Reportable Plt Morphology Comment Not Reportable RBC Morphology Not Reportable Dimorphic RBCs Not Reportable Polychromasia Not Reportable Hypochromasia Not Reportable Poikilocytosis Not Reportable Anisocytosis Not Reportable Microcytosis Not Reportable Macrocytosis Not Reportable Spherocytes Not Reportable Pappenheimer Bodies Not Reportable Sickle Cells Not Reportable Target Cells Rare Tear Drop Cells Not Reportable Ovalocytes Not Reportable Helmet Cells Not Reportable [place] Bodies Not Reportable Ely Rings Not Reportable Duc Cells Not Reportable Bite Cells Not Reportable Crenated Cell Not Reportable Elliptocytes Not Reportable Acanthocytes (Spur) Not Reportable Rouleaux Not Reportable Hemoglobin C Crystals Not Reportable Schistocytes 1+ Malaria parasites Not Reportable Riccardo Bodies Not Reportable Hem Pathologist Commnt No Sodium 144 Potassium 4.3 Chloride 112.4 H Carbon Dioxide 21 L Anion Gap 15 BUN 86 H Creatinine 0.9 Estimated GFR > 60 BUN/Creatinine Ratio 96 Glucose 126 H POC Glucose 114 H Calcium 8.1 L Total Bilirubin 0.30 AST 56 H ALT 29 Alkaline Phosphatase 150 H Total Protein 5.7 L Albumin 1.9 L Albumin/Globulin Ratio 0.5 02/21/19 02/22/19 02/22/19 16:50 00:54 00:59 WBC RBC Hgb Hct MCV MCH MCHC RDW Plt Count Add Manual Diff Total Counted Seg Neutrophils % Seg Neuts % (Manual) Band Neutrophils % Lymphocytes % (Manual) Reactive Lymphs % (Man) Monocytes % (Manual) Eosinophils % (Manual) Basophils % (Manual) Metamyelocytes % Myelocytes % Promyelocytes % Blast Cells % Nucleated RBC % Seg Neutrophils # Man Band Neutrophils # Lymphocytes # (Manual) Abs React Lymphs (Man) Monocytes # (Manual) Eosinophils # (Manual) Basophils # (Manual) Metamyelocytes # Myelocytes # Promyelocytes # Blast Cells # WBC Morphology Hypersegmented Neuts Hyposegmented Neuts Hypogranular Neuts Smudge Cells Toxic Granulation Toxic Vacuolation Dohle Bodies Pelger-Huet Anomaly Raghav Rods Platelet Estimate Clumped Platelets Plt Clumps, EDTA Large Platelets Giant Platelets Platelet Satelliting Plt Morphology Comment RBC Morphology Dimorphic RBCs Polychromasia Hypochromasia Poikilocytosis Anisocytosis Microcytosis Macrocytosis Spherocytes Pappenheimer Bodies Sickle Cells Target Cells Tear Drop Cells Ovalocytes Helmet Cells [place] Bodies Ely Rings [place] Cells Bite Cells Crenated Cell Elliptocytes Acanthocytes (Spur) Rouleaux Hemoglobin C Crystals Schistocytes Malaria parasites Riccardo Bodies Hem Pathologist Commnt Sodium Potassium Chloride Carbon Dioxide Anion Gap BUN Creatinine Estimated GFR BUN/Creatinine Ratio Glucose POC Glucose 111 H 51 L 144 H Calcium Total Bilirubin AST ALT Alkaline Phosphatase Total Protein Albumin Albumin/Globulin Ratio 02/22/19 02/22/19 02/22/19 04:13 04:13 05:01 WBC 10.0 RBC 3.35 L Hgb 9.9 L Hct 30.8 MCV 92 MCH 30 MCHC 32 RDW 16.8 H Plt Count 167 Add Manual Diff Complete Total Counted 100 Seg Neutrophils % [employer] Seg Neuts % (Manual) 97.0 H Band Neutrophils % 1.0 Lymphocytes % (Manual) 1.0 L Reactive Lymphs % (Man) 0 Monocytes % (Manual) 0 Eosinophils % (Manual) 0 Basophils % (Manual) 0 Metamyelocytes % 1.0 Myelocytes % 0 Promyelocytes % 0 Blast Cells % 0 Nucleated RBC % Not Reportable Seg Neutrophils # Man 9.7 H Band Neutrophils # 0.1 Lymphocytes # (Manual) 0.1 L Abs React Lymphs (Man) 0.0 Monocytes # (Manual) 0.0 Eosinophils # (Manual) 0.0 Basophils # (Manual) 0.0 Metamyelocytes # 0.1 Myelocytes # 0.0 Promyelocytes # 0.0 Blast Cells # 0.0 WBC Morphology Not Reportable Hypersegmented Neuts Not Reportable Hyposegmented Neuts Not Reportable Hypogranular Neuts Not Reportable Smudge Cells Not Reportable Toxic Granulation Not Reportable Toxic Vacuolation Not Reportable Dohle Bodies Not Reportable Pelger-Huet Anomaly Not Reportable Raghav Rods Not Reportable Platelet Estimate Consistent w auto Clumped Platelets Not Reportable Plt Clumps, EDTA Not Reportable Large Platelets Few Giant Platelets Not Reportable Platelet Satelliting Not Reportable Plt Morphology Comment Not Reportable RBC Morphology Not Reportable Dimorphic RBCs Not Reportable Polychromasia Not Reportable Hypochromasia Not Reportable Poikilocytosis Not Reportable Anisocytosis Not Reportable Microcytosis Not Reportable Macrocytosis Not Reportable Spherocytes Not Reportable Pappenheimer Bodies Not Reportable Sickle Cells Not Reportable Target Cells Rare Tear Drop Cells Not Reportable Ovalocytes Not Reportable Helmet Cells Not Reportable [place] Bodies Not Reportable Ely Rings Not Reportable Duc Cells Not Reportable Bite Cells Not Reportable Crenated Cell Not Reportable Elliptocytes Not Reportable Acanthocytes (Spur) Not Reportable Rouleaux Not Reportable Hemoglobin C Crystals Not Reportable Schistocytes 1+ Malaria parasites Not Reportable Riccardo Bodies Not Reportable Hem Pathologist Commnt No Sodium 145 Potassium 4.5 Chloride 110.8 H Carbon Dioxide 23 Anion Gap 16 BUN 83 H Creatinine 0.9 Estimated GFR > 60 BUN/Creatinine Ratio 92 Glucose 157 H POC Glucose 135 H Calcium 8.4 Total Bilirubin AST ALT Alkaline Phosphatase Total Protein Albumin Albumin/Globulin Ratio Medications & Allergies - Medications Allergies/Adverse Reactions: Allergies No Known Allergies Allergy (Verified 08/18/18 09:04) Home Medications: Home Medications Medication Instructions Recorded Confirmed Last Taken Type Levothyroxine [Synthroid] 112 mcg PO QAM 02/01/19 02/01/19 Unknown History Lisinopril [Zestril TAB] 40 mg PO QDAY 02/01/19 02/01/19 Unknown History amLODIPine [Norvasc] 10 mg PO DAILY 02/01/19 02/01/19 Unknown History cloNIDine [Catapres] 1 mg PO QDAY 02/01/19 02/01/19 Unknown History Active Medications: Generic Name Dose Route Start Last Admin Trade Name Freq PRN Reason Stop Dose Admin Acetaminophen 650 mg 02/01/19 10:47 02/20/19 21:52 Tylenol PO 650 mg Q4H PRN Administration Pain MILD(1-3)/Fever >100.5/VALENZUELA Albuterol 2.5 mg 02/01/19 10:47 Proventil IH Q4HRT PRN Shortness Of Breath Albuterol/Ipratropium 1 ampul 02/01/19 12:00 02/22/19 03:18 Duoneb *Not For Prn Use* IH 1 ampul Q6HRT AMOL Administration Dexamethasone 2 mg 02/16/19 10:00 02/21/19 22:34 Decadron IV 2 mg Q12HR AMOL Administration Diltiazem HCl 60 mg 02/13/19 12:00 02/22/19 05:39 Cardizem PO 60 mg Q6H AMOL Administration Famotidine 20 mg 02/12/19 10:00 02/21/19 22:35 Pepcid PO 20 mg BID AMOL Administration Fentanyl 50 mcg 02/19/19 16:20 Sublimaze IV ONCE PRN Pain , Severe (7-10) Folic Acid 1 mg 02/06/19 10:00 02/21/19 09:50 Folvite PO Not Given QDAY [facility] Hydralazine HCl 10 mg 02/13/19 22:15 02/21/19 18:01 Apresoline IV 10 mg Q6H PRN Administration Hypertension Hydrophilic Ointment 1 applic 02/01/19 11:09 02/19/19 21:54 Vaseline Lip Therapy TP 1 applic Q2HR PRN Administration Dry Lips Insulin Glargine 30 units 02/11/19 16:36 02/20/19 21:57 Lantus SUB-Q 30 units QHS [facility] Administration Insulin Human Regular 0 units 02/10/19 19:00 02/22/19 05:15 Humulin R SUB-Q Not Given Q6HR [facility] Protocol Levothyroxine Sodium 125 mcg 02/07/19 10:00 02/21/19 09:50 Synthroid PO Not Given QAM [facility] Multi-Ingred Cream/Lotion/Oil/Oint 1 applic 02/01/19 11:09 02/08/19 21:18 Artificial Tears Ophth Oint OU 1 applic Q4HR PRN Administration Dry Eye(s) Multivitamins 5 ml 02/06/19 10:00 02/21/19 09:50 Centrum Liq PO Not Given QDAY [facility] Ondansetron HCl 4 mg 02/01/19 10:47 Zofran IV Q8H PRN Nausea And Vomiting Simple Syrup 15 ml 02/21/19 22:30 Simple Syrup FEEDTUBE PRN PRN Hypoglycemia Simple Syrup 30 ml 02/21/19 22:30 02/22/19 00:20 Simple Syrup FEEDTUBE 30 ml PRN PRN Administration Hypoglycemia Sodium Bicarbonate 325 mg 02/21/19 22:30 Sodium Bicarbonate FEEDTUBE PRN PRN For Clogged Feeding Tube Sodium Chloride 10 ml 02/01/19 22:00 02/21/19 22:35 Sodium Chloride Flush Syringe 10 Ml IV 10 ml BID AMOL Administration Sodium Chloride 10 ml 02/01/19 10:47 Sodium Chloride Flush Syringe 10 Ml IV PRN PRN LINE FLUSH
[2019-02-22] MEDS ORDERED: LIPASE 10,500/PROTEASE 25,000/AMYLASE 43,750 (UNITS) DR CAP FEEDTUBE PRN (08:27)
[2019-02-22] MEDS ORDERED: SODIUM BICARBONATE 325 MG TAB FEEDTUBE PRN (08:27)
[2019-02-22] MEDS ORDERED: SIMPLE SYRUP 15 ML FEEDTUBE PRN ×2 (08:27)
--- NOTE | 2019-02-22 08:31 | Event Note ---
Renal function appears to be stable Creatinine is currently 0.9 potassium 4.5 bicarbonate better at 23 Hypernatremia resolved hypokalemia better Will sign off the case please call if needed
--- NOTE | 2019-02-22 08:57 | Procedure Note ---
Date of procedure: 02/22/19 Pre-op diagnosis: Acute Respiratory Failure Post-op diagnosis: same Procedure: Bronchoscopic Report Written Consent was on the chart. Pre-op Dx Respiratory Failure Post-op Dx same Procedure Bronchoscopy for tracheostomy placement (CPT 75119) Surgeon Elliott Grant MD Surgeon performing tracheostomy Parrish Doran, Anesth MAC, general EBL min Specimen none Findings normal anatomy. No secretions. Complications venous bleeding Disposition Stable in PACU Indications Procedure, risks, benefits, alternatives have been discussed. Consent was obtained. Procedure After time out was called, bronchoscopy was begun. Airway was evaluated. Secretions were aspirated. ETT was pulled back to about 18cm at the teeth. During the attempted access of the trachea, bleeding was encountered. Please see Dr. Doran's notes for further details. Bronchscopy was discontinued. Pt was taken to OR. When Dr. Doran was ready to do the percutaneous tracheostomy again, the bronchoscopy was restared. Airway was evaluated. Some reddish mucus secretions were aspirated. ETT was pulled back to about 18cm at the teeth. Later, had to be retracted to 17cm. Dr. Doran performed the tracheostomy under bronchoscopic guidance. Introducer needle was seen safely entering the trachea. Trach was placed after serial dilation. Bronchoscope was then inserted through the trach to confirm position. There was several centimeters of space above the gilson. There was no significant bleeding. Patient had good inspiratory and expiratory tidal volumes. Pt was stable in OR. PEG placement (CPT [address] Doran) EGD scope was advanced into the stomach. Stomach was insufflated. Site was identified by good transillumination, at least 3 fingerbreadths away from costal margin and not too close to pylorus. After sterile prep and drape, Dr. Doran anesthetized the planned insertion site and inserted the introducer needle. Wire was inserted and pulled back into the mouth. PEG tube was attached and then pulled into position by Dr. Doran. EGD scope was re-inserted and button was identified. There was no bleeding and button was seen to be in good position. I then proceeded to evaluate the rest of the stomach and proximal portion of duodenum. The stomach had changes consistent with extensive gastritis. The duodenum was normal. The esophagus was evaluated as the scope was being pulled out. Pt tolerated the procedure well. The PEG collar was at 3.5cm at the skin level. Findings: Some secretions in the airway. Severe gastritis. Implants: 20Fr PEG tube Anesthesia: GETA Surgeon: ROSE GRANT (Espinoza (Trachea and cosurgeon for PEG)) Estimated blood loss: minimal Pathology: none Condition: stable Disposition: PACU
--- NOTE | 2019-02-22 09:30 | Post Anesthesia Evaluation ---
- Post Anesthesia Evaluation Patient Participated: No (intubated , seadated) Airway Patent: Yes Stable Respiratory Function: Yes Nausea/Vomiting: No Temp > 96.8F: Yes Pain Manageable: Yes Adequeate Hydration: Yes Anesthesia Complications: No Block Receding Appropriately: Not Applicable Patient on Ventilator: Yes
[2019-02-22] MEDS: FAMOTIDINE 20 MG TAB PO SCH ×2 (10:49→21:01)
[2019-02-22] MEDS: MULTIVITAMINS 5 ML ORAL LIQUID PO SCH (10:49)
[2019-02-22] MEDS: dexAMETHasone 4 MG/ML VIAL IV SCH ×2 (10:49→21:03)
[2019-02-22] MEDS: LEVOTHYROXINE 125 MCG TAB PO SCH (10:49)
[2019-02-22] MEDS: FOLIC ACID 1 MG TAB PO SCH (10:49)
--- NOTE | 2019-02-22 12:22 | Progress Note ---
Assessment and Plan Imp: 1. Neck cellulitis versus LAD 2. Bacteremia 3. Severe sepsis 4. DIANA 5. Hyperkalemia 6. Lactic acidosis 7. Acute respiratory failure, hypoxia 8. Metabolic encephalopathy 9. 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 ? SLE 12. Acute CVA Rec: 1. ABX finished per ID; steno in sputum likely colonizer; CXR 02/21/19 stable 2. Off IVFs 3. Off all sedation 4. No vegetations on TERRENCE 5. s/p Trach/PEG -> resume PSV daily and transition to Tpiece soon 6. TFs, Pepcid, SCDs 7. Plan change to PO steroids once PEG is usable 8. Complex decision-making; awaiting placement as well No family present today Subjective Date of service: 02/22/19 Principal diagnosis: Resp failure Interval history: Trach done, required conversion to open due to some bleeding. H/H stable. Mild oozing from trach this AM. No fevers. Awake, alert. Answers questions. Moves RUE and RLE. Active Medications Acetaminophen (Tylenol) 650 mg PO Q4H PRN PRN Reason: Pain MILD(1-3)/Fever >100.5/VALENZUELA Last Admin: 02/20/19 21:52 Dose: 650 mg Documented by: Albuterol (Proventil) 2.5 mg IH Q4HRT PRN PRN Reason: Shortness Of Breath Albuterol/Ipratropium (Duoneb *Not For Prn Use*) 1 ampul IH Q6HRT [facility] Last Admin: 02/22/19 07:33 Dose: 1 ampul Documented by: Lipase/Protease/Amylase (Carola Hammond 10,500 Unit) 1 each FEEDTUBE PRN PRN PRN Reason: For Clogged Feeding Tube Dexamethasone (Decadron) 2 mg IV Q12HR [facility] Last Admin: 02/22/19 10:49 Dose: 2 mg Documented by: Diltiazem HCl (Cardizem) 60 mg PO Q6H [facility] Last Admin: 02/22/19 05:39 Dose: 60 mg Documented by: Famotidine (Pepcid) 20 mg PO BID [facility] Last Admin: 02/22/19 10:49 Dose: 20 mg Documented by: Fentanyl (Sublimaze) 50 mcg IV ONCE PRN PRN Reason: Pain , Severe (7-10) Folic Acid (Folvite) 1 mg PO QDAY [facility] Last Admin: 02/22/19 10:49 Dose: 1 mg Documented by: Hydralazine HCl (Apresoline) 10 mg IV Q6H PRN PRN Reason: Hypertension Last Admin: 02/21/19 18:01 Dose: 10 mg Documented by: Hydrophilic Ointment (Vaseline Lip Therapy) 1 applic TP Q2HR PRN PRN Reason: Dry Lips Last Admin: 02/19/19 21:54 Dose: 1 applic Documented by: Insulin Glargine (Lantus) 30 units SUB-Q QHS [facility] Last Admin: 02/21/19 22:00 Dose: Not Given Documented by: Insulin Human Regular (Humulin R) 0 units SUB-Q Q6HR [facility]; Protocol Last Admin: 02/22/19 05:15 Dose: Not Given Documented by: Levothyroxine Sodium (Synthroid) 125 mcg PO QAM [facility] Last Admin: 02/22/19 10:49 Dose: 125 mcg Documented by: Multi-Ingred Cream/Lotion/Oil/Oint (Artificial Tears Ophth Oint) 1 applic OU Q4HR PRN PRN Reason: Dry Eye(s) Last Admin: 02/08/19 21:18 Dose: 1 applic Documented by: Multivitamins (Centrum Liq) 5 ml PO QDAY [facility] Last Admin: 02/22/19 10:49 Dose: 5 ml Documented by: Ondansetron HCl (Zofran) 4 mg IV Q8H PRN PRN Reason: Nausea And Vomiting Simple Syrup (Simple Syrup) 15 ml FEEDTUBE PRN PRN PRN Reason: Hypoglycemia Simple Syrup (Simple Syrup) 30 ml FEEDTUBE PRN PRN PRN Reason: Hypoglycemia Sodium Bicarbonate (Sodium Bicarbonate) 325 mg FEEDTUBE PRN PRN PRN Reason: For Clogged Feeding Tube Sodium Chloride (Sodium Chloride Flush Syringe 10 Ml) 10 ml IV BID [facility] Last Admin: 02/22/19 10:49 Dose: 10 ml Documented by: Sodium Chloride (Sodium Chloride Flush Syringe 10 Ml) 10 ml IV PRN PRN PRN Reason: LINE FLUSH Objective Vital Signs - 12hr 02/22/19 02/22/19 02/22/19 00:30 00:33 01:00 Temperature Pulse Rate 59 L 71 51 L Pulse Rate [ Anterior Bilateral Throughout] Respiratory 21 21 Rate Respiratory Rate [Anterior Bilateral Throughout] Respiratory Rate [ Generalized] Blood Pressure 172/79 172/79 150/82 O2 Sat by Pulse 100 100 Oximetry O2 Sat by Pulse Oximetry [ Assessment] 02/22/19 02/22/19 02/22/19 01:30 01:55 02:00 Temperature Pulse Rate 48 L 51 L 49 L Pulse Rate [ Anterior Bilateral Throughout] Respiratory 21 21 Rate Respiratory Rate [Anterior Bilateral Throughout] Respiratory Rate [ Generalized] Blood Pressure 151/77 155/79 O2 Sat by Pulse 100 100 100 Oximetry O2 Sat by Pulse Oximetry [ Assessment] 02/22/19 02/22/19 02/22/19 02:30 02:50 03:00 Temperature Pulse Rate 52 L 50 L 50 L Pulse Rate [ Anterior Bilateral Throughout] Respiratory 22 22 Rate Respiratory Rate [Anterior Bilateral Throughout] Respiratory 13 Rate [ Generalized] Blood Pressure 155/79 150/78 O2 Sat by Pulse 100 100 100 Oximetry O2 Sat by Pulse Oximetry [ Assessment] 02/22/19 02/22/19 02/22/19 03:30 03:34 04:00 Temperature 98.4 F Pulse Rate 55 L 62 Pulse Rate [ Anterior Bilateral Throughout] Respiratory 14 14 Rate Respiratory Rate [Anterior Bilateral Throughout] Respiratory Rate [ Generalized] Blood Pressure 150/78 151/85 O2 Sat by Pulse 100 100 100 Oximetry O2 Sat by Pulse Oximetry [ Assessment] 02/22/19 02/22/19 02/22/19 04:30 05:00 05:15 Temperature Pulse Rate 66 66 Pulse Rate [ Anterior Bilateral Throughout] Respiratory 14 Rate Respiratory Rate [Anterior Bilateral Throughout] Respiratory Rate [ Generalized] Blood Pressure 151/85 164/83 O2 Sat by Pulse 100 100 100 Oximetry O2 Sat by Pulse Oximetry [ Assessment] 02/22/19 02/22/19 02/22/19 05:30 05:39 06:00 Temperature Pulse Rate 63 64 80 Pulse Rate [ Anterior Bilateral Throughout] Respiratory 14 13 Rate Respiratory Rate [Anterior Bilateral Throughout] Respiratory Rate [ Generalized] Blood Pressure 164/83 164/83 152/89 O2 Sat by Pulse 99 100 Oximetry O2 Sat by Pulse Oximetry [ Assessment] 02/22/19 02/22/19 02/22/19 06:30 07:00 07:23 Temperature Pulse Rate 67 58 L 67 Pulse Rate [ Anterior Bilateral Throughout] Respiratory 15 14 Rate Respiratory Rate [Anterior Bilateral Throughout] Respiratory Rate [ Generalized] Blood Pressure 152/89 157/74 157/74 O2 Sat by Pulse 100 99 100 Oximetry O2 Sat by Pulse Oximetry [ Assessment] 02/22/19 02/22/19 02/22/19 07:30 07:34 08:00 Temperature 96.8 F L Pulse Rate 63 55 L Pulse Rate [ 67 Anterior Bilateral Throughout] Respiratory 14 14 Rate Respiratory 14 Rate [Anterior Bilateral Throughout] Respiratory Rate [ Generalized] Blood Pressure 157/74 160/74 O2 Sat by Pulse 100 100 Oximetry O2 Sat by Pulse 98 Oximetry [ Assessment] 02/22/19 02/22/19 02/22/19 08:30 09:00 09:30 Temperature Pulse Rate 82 71 74 Pulse Rate [ Anterior Bilateral Throughout] Respiratory 16 12 13 Rate Respiratory Rate [Anterior Bilateral Throughout] Respiratory Rate [ Generalized] Blood Pressure 160/74 164/89 164/89 O2 Sat by Pulse 96 99 Oximetry O2 Sat by Pulse Oximetry [ Assessment] 02/22/19 02/22/19 02/22/19 10:00 10:30 11:00 Temperature Pulse Rate 62 63 74 Pulse Rate [ Anterior Bilateral Throughout] Respiratory 15 14 15 Rate Respiratory Rate [Anterior Bilateral Throughout] Respiratory 13 Rate [ Generalized] Blood Pressure 162/83 162/83 171/94 O2 Sat by Pulse 95 97 100 Oximetry O2 Sat by Pulse Oximetry [ Assessment] 02/22/19 02/22/19 11:30 11:55 Temperature Pulse Rate 78 64 Pulse Rate [ Anterior Bilateral Throughout] Respiratory 14 Rate Respiratory Rate [Anterior Bilateral Throughout] Respiratory Rate [ Generalized] Blood Pressure 171/106 171/106 O2 Sat by Pulse 100 100 Oximetry O2 Sat by Pulse Oximetry [ Assessment] Constitutional: no acute distress, alert Eyes: non-icteric ENT: oropharynx moist Neck: supple, other (Proximal XLT size [address]) Effort: normal Ascultation: Bilateral: other (coarse BS bilaterally) Cardiovascular: regular rate and rhythm (no mrg) Gastrointestinal: normoactive bowel sounds, soft, non-tender, non-distended Integumentary: normal Extremities: no cyanosis, no edema, pink and warm Neurologic: other (L sided hemiparesis) Psychiatric: mood appropriate, affect normal CBC and BMP: 02/22/19 04:13 02/22/19 04:13 ABG, PT/INR, D-dimer: ABG POC ABG pH 7.418 (7.35-7.45) 02/12/19 05:36 ABG pH 7.440 pH Units (7.350-7.450) 02/11/19 04:10 POC ABG pCO2 36.9 (35-45) 02/12/19 05:36 ABG pCO2 37.4 mm Hg 02/11/19 04:10 POC ABG pO2 92 (80-105) 02/12/19 05:36 ABG pO2 69.4 mm Hg (80.0-90.0) L 02/11/19 04:10 POC ABG HCO3 23.8 (22-26 mml/L) 02/12/19 05:36 POC ABG Total CO2 25 (23-27mmol/L) 02/12/19 05:36 POC ABG O2 Sat 97 02/12/19 05:36 ABG O2 Saturation 94.2 % (95.0-99.0) L 02/11/19 04:10 PT/INR, D-dimer PT 16.3 Sec. (12.2-14.9) H 02/06/19 07:35 INR 1.35 (0.87-1.13) H 02/06/19 07:35 Abnormal lab findings: Abnormal Labs 02/01/19 02/01/19 02/01/19 07:16 07:16 07:16 WBC 17.7 H RBC Hgb Hct RDW 16.9 H Plt Count 62 L Seg Neuts % (Manual) 95.0 H Lymphocytes % (Manual) 0 L Seg Neutrophils # Man 16.8 H Lymphocytes # (Manual) 0.0 L PT 15.0 H INR 1.21 H APTT Thrombin Time 20.0 H POC ABG pH ABG pH POC ABG pCO2 POC ABG pO2 ABG pO2 ABG HCO3 ABG O2 Saturation ABG Base Excess ABG Hemoglobin Oxyhemoglobin Sodium 135 L Potassium Chloride 97.7 L Carbon Dioxide 19 L BUN 51 H Creatinine 4.5 H Glucose 112 H POC Glucose Lactic Acid Calcium Magnesium Iron TIBC Direct Bilirubin AST Alkaline Phosphatase Troponin T 0.181 H* C-Reactive Protein Total Protein Albumin LDL Cholesterol Direct 34 L HDL Cholesterol 20 L Vitamin B12 Folate TSH Urine WBC (Auto) Urine Creatinine Urine Total Protein [place] Screen [place] Titer Complement C3 Complement C4 02/01/19 02/01/19 02/01/19 07:29 07:29 07:43 WBC RBC Hgb Hct RDW Plt Count Seg Neuts % (Manual) Lymphocytes % (Manual) Seg Neutrophils # Man Lymphocytes # (Manual) PT INR APTT Thrombin Time POC ABG pH ABG pH POC ABG pCO2 POC ABG pO2 ABG pO2 ABG HCO3 ABG O2 Saturation ABG Base Excess ABG Hemoglobin Oxyhemoglobin Sodium Potassium Chloride Carbon Dioxide BUN Creatinine Glucose POC Glucose Lactic Acid 4.80 H* Calcium Magnesium Iron TIBC Direct Bilirubin 0.7 H AST 42 H Alkaline Phosphatase Troponin T C-Reactive Protein Total Protein 8.9 H Albumin 2.3 L LDL Cholesterol Direct HDL Cholesterol Vitamin B12 Folate TSH 8.470 H Urine WBC (Auto) Urine Creatinine Urine Total Protein [place] Screen [place] Titer Complement C3 Complement C4 02/01/19 02/01/19 02/01/19 09:45 11:32 13:50 WBC RBC Hgb Hct RDW Plt Count Seg Neuts % (Manual) Lymphocytes % (Manual) Seg Neutrophils # Man Lymphocytes # (Manual) PT INR APTT Thrombin Time POC ABG pH 7.289 L ABG pH POC ABG pCO2 POC ABG pO2 355 H ABG pO2 ABG HCO3 ABG O2 Saturation ABG Base Excess ABG Hemoglobin Oxyhemoglobin Sodium Potassium Chloride Carbon Dioxide BUN Creatinine Glucose POC Glucose Lactic Acid 4.10 H* Calcium Magnesium Iron TIBC Direct Bilirubin AST Alkaline Phosphatase Troponin T C-Reactive Protein Total Protein Albumin LDL Cholesterol Direct HDL Cholesterol Vitamin B12 Folate TSH Urine WBC (Auto) 16.0 H Urine Creatinine Urine Total Protein [place] Screen [place] Titer Complement C3 Complement C4 02/01/19 02/01/19 02/01/19 15:15 16:20 16:51 WBC RBC Hgb Hct RDW Plt Count Seg Neuts % (Manual) Lymphocytes % (Manual) Seg Neutrophils # Man Lymphocytes # (Manual) PT INR APTT Thrombin Time POC ABG pH ABG pH POC ABG pCO2 POC ABG pO2 ABG pO2 ABG HCO3 ABG O2 Saturation ABG Base Excess ABG Hemoglobin Oxyhemoglobin Sodium Potassium Chloride Carbon Dioxide BUN Creatinine Glucose POC Glucose 115 H Lactic Acid 4.50 H* Calcium Magnesium Iron TIBC Direct Bilirubin AST Alkaline Phosphatase Troponin T C-Reactive Protein Total Protein Albumin LDL Cholesterol Direct HDL Cholesterol Vitamin B12 Folate TSH Urine WBC (Auto) Urine Creatinine Urine Total Protein [place] Screen [place] Titer Complement C3 36 L Complement C4 02/01/19 02/01/19 02/01/19 16:51 17:03 17:04 WBC RBC Hgb Hct RDW Plt Count Seg Neuts % (Manual) Lymphocytes % (Manual) Seg Neutrophils # Man Lymphocytes # (Manual) PT INR APTT Thrombin Time POC ABG pH ABG pH POC ABG pCO2 POC ABG pO2 ABG pO2 ABG HCO3 ABG O2 Saturation ABG Base Excess ABG Hemoglobin Oxyhemoglobin Sodium Potassium Chloride Carbon Dioxide BUN Creatinine Glucose POC Glucose Lactic Acid 2.80 H* Calcium Magnesium Iron TIBC Direct Bilirubin AST Alkaline Phosphatase Troponin T C-Reactive Protein 32.30 H Total Protein Albumin LDL Cholesterol Direct HDL Cholesterol Vitamin B12 Folate TSH Urine WBC (Auto) Urine Creatinine Urine Total Protein [place] Screen [place] Titer Complement C3 Complement C4 12 L 02/01/19 02/01/19 02/02/19 17:04 19:28 05:16 WBC RBC Hgb Hct RDW Plt Count Seg Neuts % (Manual) Lymphocytes % (Manual) Seg Neutrophils # Man Lymphocytes # (Manual) PT INR APTT Thrombin Time POC ABG pH ABG pH POC ABG pCO2 POC ABG pO2 148 H ABG pO2 ABG HCO3 ABG O2 Saturation ABG Base Excess ABG Hemoglobin Oxyhemoglobin Sodium Potassium Chloride 107.1 H Carbon Dioxide 18 L BUN 52 H Creatinine 3.1 H Glucose 120 H POC Glucose Lactic Acid Calcium 7.4 L Magnesium Iron TIBC Direct Bilirubin AST Alkaline Phosphatase Troponin T C-Reactive Protein Total Protein Albumin LDL Cholesterol Direct HDL Cholesterol Vitamin B12 Folate TSH Urine WBC (Auto) Urine Creatinine Urine Total Protein [place] Screen Positive H CHE[place] Titer 1:320 H Complement C3 Complement C4 02/02/19 02/02/19 02/03/19 05:53 05:53 03:30 WBC 14.3 H RBC 5.16 H Hgb 14.9 H Hct 46.2 H D RDW 16.9 H 17.0 H Plt Count 43 L 18 L* Seg Neuts % (Manual) 93.0 H Lymphocytes % (Manual) 2.0 L Seg Neutrophils # Man 13.3 H Lymphocytes # (Manual) 0.3 L PT INR APTT Thrombin Time POC ABG pH ABG pH POC ABG pCO2 POC ABG pO2 ABG pO2 ABG HCO3 ABG O2 Saturation ABG Base Excess ABG Hemoglobin Oxyhemoglobin Sodium Potassium 5.1 H Chloride Carbon Dioxide 21 L BUN 57 H Creatinine 3.3 H Glucose 147 H POC Glucose Lactic Acid Calcium 7.5 L Magnesium Iron TIBC Direct Bilirubin AST 51 H Alkaline Phosphatase Troponin T C-Reactive Protein Total Protein Albumin 1.6 L LDL Cholesterol Direct HDL Cholesterol Vitamin B12 Folate TSH Urine WBC (Auto) Urine Creatinine Urine Total Protein [place] Screen [place] Titer Complement C3 Complement C4 02/03/19 02/03/19 02/03/19 03:30 05:55 14:42 WBC RBC Hgb Hct RDW Plt Count Seg Neuts % (Manual) Lymphocytes % (Manual) Seg Neutrophils # Man Lymphocytes # (Manual) PT INR APTT Thrombin Time POC ABG pH ABG pH POC ABG pCO2 POC ABG pO2 117 H ABG pO2 ABG HCO3 ABG O2 Saturation ABG Base Excess ABG Hemoglobin Oxyhemoglobin Sodium Potassium Chloride Carbon Dioxide BUN 65 H Creatinine 2.7 H Glucose 117 H POC Glucose Lactic Acid Calcium 7.2 L Magnesium Iron TIBC Direct Bilirubin AST Alkaline Phosphatase Troponin T C-Reactive Protein Total Protein Albumin LDL Cholesterol Direct HDL Cholesterol Vitamin B12 1468 H Folate TSH Urine WBC (Auto) Urine Creatinine Urine Total Protein [place] Screen [place] Titer Complement C3 Complement C4 02/03/19 02/03/19 02/03/19 14:42 14:42 14:42 WBC RBC 3.17 L Hgb 9.4 L D Hct 28.3 L D RDW 16.9 H Plt Count 18 L* Seg Neuts % (Manual) Lymphocytes % (Manual) Seg Neutrophils # Man Lymphocytes # (Manual) PT INR APTT Thrombin Time POC ABG pH ABG pH POC ABG pCO2 POC ABG pO2 ABG pO2 ABG HCO3 ABG O2 Saturation ABG Base Excess ABG Hemoglobin Oxyhemoglobin Sodium Potassium Chloride Carbon Dioxide BUN Creatinine Glucose POC Glucose Lactic Acid Calcium Magnesium Iron 11 L TIBC 88 L Direct Bilirubin AST Alkaline Phosphatase Troponin T C-Reactive Protein Total Protein Albumin LDL Cholesterol Direct HDL Cholesterol Vitamin B12 Folate 5.18 L TSH Urine WBC (Auto) Urine Creatinine Urine Total Protein [place] Screen [place] Titer Complement C3 Complement C4 02/03/19 02/03/19 02/04/19 14:42 14:42 03:35 WBC RBC 3.22 L Hgb 9.5 L Hct 28.5 L RDW 16.4 H Plt Count 18 L* Seg Neuts % (Manual) Lymphocytes % (Manual) Seg Neutrophils # Man Lymphocytes # (Manual) PT 15.8 H INR 1.29 H APTT 38.2 H Thrombin Time POC ABG pH ABG pH 7.470 H POC ABG pCO2 POC ABG pO2 ABG pO2 ABG HCO3 28.4 H ABG O2 Saturation ABG Base Excess 4.5 H ABG Hemoglobin 10.1 L Oxyhemoglobin 94.7 L Sodium Potassium Chloride Carbon Dioxide BUN Creatinine Glucose POC Glucose Lactic Acid Calcium Magnesium Iron TIBC Direct Bilirubin AST Alkaline Phosphatase Troponin T C-Reactive Protein Total Protein Albumin LDL Cholesterol Direct HDL Cholesterol Vitamin B12 Folate TSH Urine WBC (Auto) Urine Creatinine Urine Total Protein [place] Screen [place] Titer Complement C3 Complement C4 02/04/19 02/04/19 02/05/19 05:02 05:02 03:50 WBC RBC Hgb Hct RDW 16.5 H Plt Count 20 L Seg Neuts % (Manual) 94.0 H Lymphocytes % (Manual) 2.0 L Seg Neutrophils # Man 9.2 H Lymphocytes # (Manual) 0.2 L PT INR APTT Thrombin Time POC ABG pH ABG pH 7.485 H POC ABG pCO2 POC ABG pO2 ABG pO2 ABG HCO3 27.5 H ABG O2 Saturation ABG Base Excess 3.9 H ABG Hemoglobin 9.1 L Oxyhemoglobin 94.8 L Sodium Potassium Chloride Carbon Dioxide BUN 66 H Creatinine 1.7 H Glucose 127 H POC Glucose Lactic Acid Calcium 7.6 L Magnesium Iron TIBC Direct Bilirubin AST Alkaline Phosphatase Troponin T C-Reactive Protein Total Protein Albumin LDL Cholesterol Direct HDL Cholesterol Vitamin B12 Folate TSH Urine WBC (Auto) Urine Creatinine Urine Total Protein [place] Screen [place] Titer Complement C3 Complement C4 02/05/19 02/05/19 02/05/19 13:02 14:36 20:03 WBC 11.7 H RBC 3.48 L 3.24 L Hgb 10.0 L 9.4 L Hct 29.2 L RDW 16.3 H 16.3 H Plt Count 50 L D 71 L Seg Neuts % (Manual) 95.0 H 95.0 H Lymphocytes % (Manual) 0 L 2.0 L Seg Neutrophils # Man 11.1 H 10.2 H Lymphocytes # (Manual) 0.0 L 0.2 L PT INR APTT Thrombin Time POC ABG pH ABG pH POC ABG pCO2 POC ABG pO2 ABG pO2 ABG HCO3 ABG O2 Saturation ABG Base Excess ABG Hemoglobin Oxyhemoglobin Sodium Potassium Chloride Carbon Dioxide BUN 67 H Creatinine 1.5 H Glucose POC Glucose Lactic Acid Calcium 7.7 L Magnesium Iron TIBC Direct Bilirubin AST Alkaline Phosphatase Troponin T C-Reactive Protein Total Protein Albumin LDL Cholesterol Direct HDL Cholesterol Vitamin B12 Folate TSH Urine WBC (Auto) Urine Creatinine Urine Total Protein [place] Screen [place] Titer Complement C3 Complement C4 02/06/19 02/06/19 02/06/19 05:39 07:35 18:34 WBC RBC Hgb Hct RDW Plt Count Seg Neuts % (Manual) Lymphocytes % (Manual) Seg Neutrophils # Man Lymphocytes # (Manual) PT 16.3 H INR 1.35 H APTT Thrombin Time POC ABG pH ABG pH POC ABG pCO2 POC ABG pO2 ABG pO2 ABG HCO3 ABG O2 Saturation ABG Base Excess ABG Hemoglobin Oxyhemoglobin Sodium Potassium Chloride Carbon Dioxide BUN Creatinine Glucose POC Glucose 107 H 121 H Lactic Acid Calcium Magnesium Iron TIBC Direct Bilirubin AST Alkaline Phosphatase Troponin T C-Reactive Protein Total Protein Albumin LDL Cholesterol Direct HDL Cholesterol Vitamin B12 Folate TSH Urine WBC (Auto) Urine Creatinine Urine Total Protein [place] Screen [place] Titer Complement C3 Complement C4 02/06/19 02/07/19 02/07/19 Unknown 01:07 04:15 WBC RBC Hgb Hct RDW Plt Count Seg Neuts % (Manual) Lymphocytes % (Manual) Seg Neutrophils # Man Lymphocytes # (Manual) PT INR APTT Thrombin Time POC ABG pH ABG pH POC ABG pCO2 POC ABG pO2 ABG pO2 ABG HCO3 ABG O2 Saturation ABG Base Excess ABG Hemoglobin 5.0 L Oxyhemoglobin 94.9 L 94.8 L Sodium 146 H Potassium Chloride Carbon Dioxide BUN 85 H Creatinine 1.8 H Glucose 163 H POC Glucose Lactic Acid Calcium 8.3 L Magnesium Iron TIBC Direct Bilirubin AST Alkaline Phosphatase Troponin T C-Reactive Protein Total Protein Albumin LDL Cholesterol Direct HDL Cholesterol Vitamin B12 Folate TSH Urine WBC (Auto) Urine Creatinine Urine Total Protein [place] Screen [place] Titer Complement C3 Complement C4 02/07/19 02/07/19 02/08/19 08:22 10:58 04:40 WBC RBC Hgb Hct RDW 16.0 H Plt Count 84 L Seg Neuts % (Manual) 97.0 H Lymphocytes % (Manual) 0 L Seg Neutrophils # Man 9.5 H Lymphocytes # (Manual) 0.0 L PT INR APTT Thrombin Time POC ABG pH 7.477 H ABG pH 7.467 H POC ABG pCO2 34.8 L POC ABG pO2 118 H ABG pO2 ABG HCO3 ABG O2 Saturation ABG Base Excess ABG Hemoglobin 8.4 L Oxyhemoglobin Sodium Potassium Chloride Carbon Dioxide BUN Creatinine Glucose POC Glucose Lactic Acid Calcium Magnesium Iron TIBC Direct Bilirubin AST Alkaline Phosphatase Troponin T C-Reactive Protein Total Protein Albumin LDL Cholesterol Direct HDL Cholesterol Vitamin B12 Folate TSH Urine WBC (Auto) Urine Creatinine Urine Total Protein [place] Screen [place] Titer Complement C3 Complement C4 02/09/19 02/09/19 02/09/19 03:17 03:17 04:35 WBC 14.9 H RBC 3.32 L Hgb 9.6 L Hct RDW 15.9 H Plt Count 113 L Seg Neuts % (Manual) 96.0 H Lymphocytes % (Manual) 1.0 L Seg Neutrophils # Man 14.3 H Lymphocytes # (Manual) 0.1 L PT INR APTT Thrombin Time POC ABG pH ABG pH 7.478 H POC ABG pCO2 POC ABG pO2 ABG pO2 94.5 H ABG HCO3 ABG O2 Saturation ABG Base Excess ABG Hemoglobin 6.1 L Oxyhemoglobin Sodium 147 H Potassium Chloride 110.4 H Carbon Dioxide BUN 114 H Creatinine 2.2 H Glucose 270 H POC Glucose Lactic Acid Calcium 8.1 L Magnesium Iron TIBC Direct Bilirubin AST Alkaline Phosphatase Troponin T C-Reactive Protein Total Protein Albumin 1.6 L LDL Cholesterol Direct HDL Cholesterol Vitamin B12 Folate TSH Urine WBC (Auto) Urine Creatinine Urine Total Protein [place] Screen [place] Titer Complement C3 Complement C4 02/09/19 02/09/19 02/10/19 13:35 18:54 05:13 WBC RBC Hgb Hct RDW Plt Count Seg Neuts % (Manual) Lymphocytes % (Manual) Seg Neutrophils # Man Lymphocytes # (Manual) PT INR APTT Thrombin Time POC ABG pH ABG pH 7.478 H POC ABG pCO2 POC ABG pO2 ABG pO2 ABG HCO3 ABG O2 Saturation ABG Base Excess ABG Hemoglobin 8.1 L Oxyhemoglobin 94.9 L Sodium Potassium Chloride Carbon Dioxide BUN Creatinine Glucose POC Glucose Lactic Acid Calcium Magnesium Iron TIBC Direct Bilirubin AST Alkaline Phosphatase Troponin T C-Reactive Protein Total Protein Albumin LDL Cholesterol Direct HDL Cholesterol Vitamin B12 Folate TSH Urine WBC (Auto) 10.0 H Urine Creatinine 92.9 H Urine Total Protein 116 H [place] Screen [place] Titer Complement C3 Complement C4 08/02/10/19 02/11/19 18:14 23:24 04:10 WBC RBC Hgb Hct RDW Plt Count Seg Neuts % (Manual) Lymphocytes % (Manual) Seg Neutrophils # Man Lymphocytes # (Manual) PT INR APTT Thrombin Time POC ABG pH ABG pH POC ABG pCO2 POC ABG pO2 ABG pO2 69.4 L ABG HCO3 ABG O2 Saturation 94.2 L ABG Base Excess ABG Hemoglobin 11.0 L Oxyhemoglobin 92.1 L Sodium Potassium Chloride Carbon Dioxide BUN Creatinine Glucose POC Glucose 453 H 403 H Lactic Acid Calcium Magnesium Iron TIBC Direct Bilirubin AST Alkaline Phosphatase Troponin T C-Reactive Protein Total Protein Albumin LDL Cholesterol Direct HDL Cholesterol Vitamin B12 Folate TSH Urine WBC (Auto) Urine Creatinine Urine Total Protein [place] Screen [place] Titer Complement C3 Complement C4 02/11/19 02/11/19 02/11/19 04:54 04:54 05:40 WBC 12.5 H RBC 3.18 L Hgb 9.4 L Hct 29.4 L RDW 16.6 H Plt Count Seg Neuts % (Manual) 94.0 H Lymphocytes % (Manual) 4.0 L Seg Neutrophils # Man 11.8 H Lymphocytes # (Manual) 0.5 L PT INR APTT Thrombin Time POC ABG pH ABG pH POC ABG pCO2 POC ABG pO2 ABG pO2 ABG HCO3 ABG O2 Saturation ABG Base Excess ABG Hemoglobin Oxyhemoglobin Sodium 151 H Potassium Chloride 112.6 H Carbon Dioxide BUN 127 H Creatinine 1.8 H Glucose 396 H POC Glucose 410 H Lactic Acid Calcium 8.3 L Magnesium Iron TIBC Direct Bilirubin AST Alkaline Phosphatase 132 H Troponin T C-Reactive Protein Total Protein Albumin 2.1 L LDL Cholesterol Direct HDL Cholesterol Vitamin B12 Folate TSH Urine WBC (Auto) Urine Creatinine Urine Total Protein [place] Screen [place] Titer Complement C3 Complement C4 02/11/19 02/11/19 02/11/19 11:30 17:58 23:18 WBC RBC Hgb Hct RDW Plt Count Seg Neuts % (Manual) Lymphocytes % (Manual) Seg Neutrophils # Man Lymphocytes # (Manual) PT INR APTT Thrombin Time POC ABG pH ABG pH POC ABG pCO2 POC ABG pO2 ABG pO2 ABG HCO3 ABG O2 Saturation ABG Base Excess ABG Hemoglobin Oxyhemoglobin Sodium Potassium Chloride Carbon Dioxide BUN Creatinine Glucose POC Glucose 361 H 414 H 392 H Lactic Acid Calcium Magnesium Iron TIBC Direct Bilirubin AST Alkaline Phosphatase Troponin T C-Reactive Protein Total Protein Albumin LDL Cholesterol Direct HDL Cholesterol Vitamin B12 Folate TSH Urine WBC (Auto) Urine Creatinine Urine Total Protein [place] Screen [place] Titer Complement C3 Complement C4 02/12/19 02/12/19 02/12/19 05:32 05:36 05:36 WBC 11.9 H RBC 3.40 L Hgb 9.9 L Hct RDW 16.4 H Plt Count Seg Neuts % (Manual) 97.0 H Lymphocytes % (Manual) 2.0 L Seg Neutrophils # Man 11.5 H Lymphocytes # (Manual) 0.2 L PT INR APTT Thrombin Time POC ABG pH ABG pH POC ABG pCO2 POC ABG pO2 ABG pO2 ABG HCO3 ABG O2 Saturation ABG Base Excess ABG Hemoglobin Oxyhemoglobin Sodium 146 H Potassium 3.5 L Chloride 110.2 H Carbon Dioxide BUN 118 H Creatinine 1.4 H Glucose 382 H POC Glucose 361 H Lactic Acid Calcium 8.3 L Magnesium Iron TIBC Direct Bilirubin AST Alkaline Phosphatase 137 H Troponin T C-Reactive Protein Total Protein Albumin 2.0 L LDL Cholesterol Direct HDL Cholesterol Vitamin B12 Folate TSH Urine WBC (Auto) Urine Creatinine Urine Total Protein [place] Screen [place] Titer Complement C3 Complement C4 02/12/19 02/12/19 02/12/19 11:51 17:18 21:46 WBC RBC Hgb Hct RDW Plt Count Seg Neuts % (Manual) Lymphocytes % (Manual) Seg Neutrophils # Man Lymphocytes # (Manual) PT INR APTT Thrombin Time POC ABG pH ABG pH POC ABG pCO2 POC ABG pO2 ABG pO2 ABG HCO3 ABG O2 Saturation ABG Base Excess ABG Hemoglobin Oxyhemoglobin Sodium Potassium Chloride Carbon Dioxide BUN Creatinine Glucose POC Glucose 357 H 280 H 222 H Lactic Acid Calcium Magnesium Iron TIBC Direct Bilirubin AST Alkaline Phosphatase Troponin T C-Reactive Protein Total Protein Albumin LDL Cholesterol Direct HDL Cholesterol Vitamin B12 Folate TSH Urine WBC (Auto) Urine Creatinine Urine Total Protein [place] Screen [place] Titer Complement C3 Complement C4 02/12/19 02/13/19 02/13/19 23:58 03:41 03:41 WBC 11.6 H RBC 3.53 L Hgb Hct RDW 15.8 H Plt Count 98 L Seg Neuts % (Manual) 97.0 H Lymphocytes % (Manual) 2.0 L Seg Neutrophils # Man 11.3 H Lymphocytes # (Manual) 0.2 L PT INR APTT Thrombin Time POC ABG pH ABG pH POC ABG pCO2 POC ABG pO2 ABG pO2 ABG HCO3 ABG O2 Saturation ABG Base Excess ABG Hemoglobin Oxyhemoglobin Sodium Potassium 3.4 L Chloride 109.7 H Carbon Dioxide BUN 108 H Creatinine Glucose 182 H POC Glucose 208 H Lactic Acid Calcium Magnesium Iron TIBC Direct Bilirubin AST 45 H Alkaline Phosphatase 150 H Troponin T C-Reactive Protein Total Protein Albumin 1.8 L LDL Cholesterol Direct HDL Cholesterol Vitamin B12 Folate TSH Urine WBC (Auto) Urine Creatinine Urine Total Protein [place] Screen [place] Titer Complement C3 Complement C4 02/13/19 02/13/19 02/13/19 05:40 11:31 18:01 WBC RBC Hgb Hct RDW Plt Count Seg Neuts % (Manual) Lymphocytes % (Manual) Seg Neutrophils # Man Lymphocytes # (Manual) PT INR APTT Thrombin Time POC ABG pH ABG pH POC ABG pCO2 POC ABG pO2 ABG pO2 ABG HCO3 ABG O2 Saturation ABG Base Excess ABG Hemoglobin Oxyhemoglobin Sodium Potassium Chloride Carbon Dioxide BUN Creatinine Glucose POC Glucose 179 H 193 H 151 H Lactic Acid Calcium Magnesium Iron TIBC Direct Bilirubin AST Alkaline Phosphatase Troponin T C-Reactive Protein Total Protein Albumin LDL Cholesterol Direct HDL Cholesterol Vitamin B12 Folate TSH Urine WBC (Auto) Urine Creatinine Urine Total Protein [place] Screen [place] Titer Complement C3 Complement C4 02/13/19 02/14/19 02/14/19 23:47 04:03 04:03 WBC RBC Hgb Hct RDW 16.0 H Plt Count Seg Neuts % (Manual) 94.0 H Lymphocytes % (Manual) 2.0 L Seg Neutrophils # Man 8.9 H Lymphocytes # (Manual) 0.2 L PT INR APTT Thrombin Time POC ABG pH ABG pH POC ABG pCO2 POC ABG pO2 ABG pO2 ABG HCO3 ABG O2 Saturation ABG Base Excess ABG Hemoglobin Oxyhemoglobin Sodium Potassium 3.4 L Chloride 108.7 H Carbon Dioxide 21 L BUN 96 H Creatinine Glucose 129 H POC Glucose 144 H Lactic Acid Calcium 8.2 L Magnesium Iron TIBC Direct Bilirubin AST 65 H Alkaline Phosphatase 164 H Troponin T C-Reactive Protein Total Protein Albumin 1.7 L LDL Cholesterol Direct HDL Cholesterol Vitamin B12 Folate TSH Urine WBC (Auto) Urine Creatinine Urine Total Protein [place] Screen [place] Titer Complement C3 Complement C4 02/14/19 02/14/19 02/14/19 04:03 05:10 11:51 WBC RBC Hgb Hct RDW Plt Count Seg Neuts % (Manual) Lymphocytes % (Manual) Seg Neutrophils # Man Lymphocytes # (Manual) PT INR APTT Thrombin Time POC ABG pH ABG pH POC ABG pCO2 POC ABG pO2 ABG pO2 ABG HCO3 ABG O2 Saturation ABG Base Excess ABG Hemoglobin Oxyhemoglobin Sodium Potassium Chloride Carbon Dioxide BUN Creatinine Glucose POC Glucose 145 H 192 H Lactic Acid Calcium Magnesium 1.60 L Iron TIBC Direct Bilirubin AST Alkaline Phosphatase Troponin T C-Reactive Protein Total Protein Albumin LDL Cholesterol Direct HDL Cholesterol Vitamin B12 Folate TSH Urine WBC (Auto) Urine Creatinine Urine Total Protein [place] Screen [place] Titer Complement C3 Complement C4 02/14/19 02/14/19 02/15/19 17:42 23:33 05:33 WBC RBC Hgb Hct RDW 15.9 H Plt Count Seg Neuts % (Manual) 95.0 H Lymphocytes % (Manual) 1.0 L Seg Neutrophils # Man 7.9 H Lymphocytes # (Manual) 0.1 L PT INR APTT Thrombin Time POC ABG pH ABG pH POC ABG pCO2 POC ABG pO2 ABG pO2 ABG HCO3 ABG O2 Saturation ABG Base Excess ABG Hemoglobin Oxyhemoglobin Sodium Potassium Chloride Carbon Dioxide BUN Creatinine Glucose POC Glucose 229 H 204 H Lactic Acid Calcium Magnesium Iron TIBC Direct Bilirubin AST Alkaline Phosphatase Troponin T C-Reactive Protein Total Protein Albumin LDL Cholesterol Direct HDL Cholesterol Vitamin B12 Folate TSH Urine WBC (Auto) Urine Creatinine Urine Total Protein [place] Screen [place] Titer Complement C3 Complement C4 02/15/19 02/15/19 02/15/19 05:33 05:41 12:30 WBC RBC Hgb Hct RDW Plt Count Seg Neuts % (Manual) Lymphocytes % (Manual) Seg Neutrophils # Man Lymphocytes # (Manual) PT INR APTT Thrombin Time POC ABG pH ABG pH POC ABG pCO2 POC ABG pO2 ABG pO2 ABG HCO3 ABG O2 Saturation ABG Base Excess ABG Hemoglobin Oxyhemoglobin Sodium Potassium Chloride 108.2 H Carbon Dioxide BUN 91 H Creatinine Glucose 197 H POC Glucose 209 H 168 H Lactic Acid Calcium 8.2 L Magnesium Iron TIBC Direct Bilirubin AST 61 H Alkaline Phosphatase 215 H Troponin T C-Reactive Protein Total Protein Albumin 1.9 L LDL Cholesterol Direct HDL Cholesterol Vitamin B12 Folate TSH Urine WBC (Auto) Urine Creatinine Urine Total Protein [place] Screen [place] Titer Complement C3 Complement C4 0802/15/19 02/16/19 18:17 23:53 04:58 WBC RBC Hgb Hct RDW 15.7 H Plt Count Seg Neuts % (Manual) 93.0 H Lymphocytes % (Manual) 5.0 L Seg Neutrophils # Man Lymphocytes # (Manual) 0.4 L PT INR APTT Thrombin Time POC ABG pH ABG pH POC ABG pCO2 POC ABG pO2 ABG pO2 ABG HCO3 ABG O2 Saturation ABG Base Excess ABG Hemoglobin Oxyhemoglobin Sodium Potassium Chloride Carbon Dioxide BUN Creatinine Glucose POC Glucose 161 H 160 H Lactic Acid Calcium Magnesium Iron TIBC Direct Bilirubin AST Alkaline Phosphatase Troponin T C-Reactive Protein Total Protein Albumin LDL Cholesterol Direct HDL Cholesterol Vitamin B12 Folate TSH Urine WBC (Auto) Urine Creatinine Urine Total Protein [place] Screen [place] Titer Complement C3 Complement C4 02/16/19 02/16/19 02/16/19 04:58 12:27 17:08 WBC RBC Hgb Hct RDW Plt Count Seg Neuts % (Manual) Lymphocytes % (Manual) Seg Neutrophils # Man Lymphocytes # (Manual) PT INR APTT Thrombin Time POC ABG pH ABG pH POC ABG pCO2 POC ABG pO2 ABG pO2 ABG HCO3 ABG O2 Saturation ABG Base Excess ABG Hemoglobin Oxyhemoglobin Sodium Potassium Chloride 108.3 H Carbon Dioxide BUN 90 H Creatinine Glucose 126 H POC Glucose 125 H 180 H Lactic Acid Calcium 8.1 L Magnesium Iron TIBC Direct Bilirubin AST 52 H Alkaline Phosphatase 188 H Troponin T C-Reactive Protein Total Protein Albumin 2.0 L LDL Cholesterol Direct HDL Cholesterol Vitamin B12 Folate TSH Urine WBC (Auto) Urine Creatinine Urine Total Protein [place] Screen [place] Titer Complement C3 Complement C4 02/16/19 02/16/19 02/17/19 21:52 23:51 04:43 WBC RBC 3.48 L Hgb Hct RDW 15.8 H Plt Count Seg Neuts % (Manual) 87.0 H Lymphocytes % (Manual) 6.0 L Seg Neutrophils # Man Lymphocytes # (Manual) 0.5 L PT INR APTT Thrombin Time POC ABG pH ABG pH POC ABG pCO2 POC ABG pO2 ABG pO2 ABG HCO3 ABG O2 Saturation ABG Base Excess ABG Hemoglobin Oxyhemoglobin Sodium Potassium Chloride Carbon Dioxide BUN Creatinine Glucose POC Glucose 177 H 161 H Lactic Acid Calcium Magnesium Iron TIBC Direct Bilirubin AST Alkaline Phosphatase Troponin T C-Reactive Protein Total Protein Albumin LDL Cholesterol Direct HDL Cholesterol Vitamin B12 Folate TSH Urine WBC (Auto) Urine Creatinine Urine Total Protein [place] Screen [place] Titer Complement C3 Complement C4 02/17/19 02/17/19 02/17/19 04:43 05:05 18:16 WBC RBC Hgb Hct RDW Plt Count Seg Neuts % (Manual) Lymphocytes % (Manual) Seg Neutrophils # Man Lymphocytes # (Manual) PT INR APTT Thrombin Time POC ABG pH ABG pH POC ABG pCO2 POC ABG pO2 ABG pO2 ABG HCO3 ABG O2 Saturation ABG Base Excess ABG Hemoglobin Oxyhemoglobin Sodium Potassium Chloride 110.2 H Carbon Dioxide 21 L BUN 90 H Creatinine Glucose 164 H POC Glucose 166 H 123 H Lactic Acid Calcium 8.2 L Magnesium Iron TIBC Direct Bilirubin AST 59 H Alkaline Phosphatase 224 H Troponin T C-Reactive Protein Total Protein 6.2 L Albumin 1.9 L LDL Cholesterol Direct HDL Cholesterol Vitamin B12 Folate TSH Urine WBC (Auto) Urine Creatinine Urine Total Protein [place] Screen [place] Titer Complement C3 Complement C4 02/17/19 02/18/19 02/18/19 22:15 00:14 05:23 WBC RBC Hgb Hct RDW Plt Count Seg Neuts % (Manual) Lymphocytes % (Manual) Seg Neutrophils # Man Lymphocytes # (Manual) PT INR APTT Thrombin Time POC ABG pH ABG pH POC ABG pCO2 POC ABG pO2 ABG pO2 ABG HCO3 ABG O2 Saturation ABG Base Excess ABG Hemoglobin Oxyhemoglobin Sodium Potassium Chloride Carbon Dioxide BUN Creatinine Glucose POC Glucose 135 H 142 H 175 H Lactic Acid Calcium Magnesium Iron TIBC Direct Bilirubin AST Alkaline Phosphatase Troponin T C-Reactive Protein Total Protein Albumin LDL Cholesterol Direct HDL Cholesterol Vitamin B12 Folate TSH Urine WBC (Auto) Urine Creatinine Urine Total Protein [place] Screen [place] Titer Complement C3 Complement C4 02/18/19 02/18/19 02/18/19 11:20 17:14 22:03 WBC RBC Hgb Hct RDW Plt Count Seg Neuts % (Manual) Lymphocytes % (Manual) Seg Neutrophils # Man Lymphocytes # (Manual) PT INR APTT Thrombin Time POC ABG pH ABG pH POC ABG pCO2 POC ABG pO2 ABG pO2 ABG HCO3 ABG O2 Saturation ABG Base Excess ABG Hemoglobin Oxyhemoglobin Sodium Potassium Chloride Carbon Dioxide BUN Creatinine Glucose POC Glucose 139 H 139 H 150 H Lactic Acid Calcium Magnesium Iron TIBC Direct Bilirubin AST Alkaline Phosphatase Troponin T C-Reactive Protein Total Protein Albumin LDL Cholesterol Direct HDL Cholesterol Vitamin B12 Folate TSH Urine WBC (Auto) Urine Creatinine Urine Total Protein [place] Screen [place] Titer Complement C3 Complement C4 02/18/19 02/19/19 02/19/19 23:53 05:15 11:19 WBC RBC Hgb Hct RDW Plt Count Seg Neuts % (Manual) Lymphocytes % (Manual) Seg Neutrophils # Man Lymphocytes # (Manual) PT INR APTT Thrombin Time POC ABG pH ABG pH POC ABG pCO2 POC ABG pO2 ABG pO2 ABG HCO3 ABG O2 Saturation ABG Base Excess ABG Hemoglobin Oxyhemoglobin Sodium Potassium Chloride Carbon Dioxide BUN Creatinine Glucose POC Glucose 140 H 161 H 146 H Lactic Acid Calcium Magnesium Iron TIBC Direct Bilirubin AST Alkaline Phosphatase Troponin T C-Reactive Protein Total Protein Albumin LDL Cholesterol Direct HDL Cholesterol Vitamin B12 Folate TSH Urine WBC (Auto) Urine Creatinine Urine Total Protein [place] Screen [place] Titer Complement C3 Complement C4 02/19/19 02/20/19 02/20/19 17:34 01:11 05:40 WBC RBC Hgb Hct RDW Plt Count Seg Neuts % (Manual) Lymphocytes % (Manual) Seg Neutrophils # Man Lymphocytes # (Manual) PT INR APTT Thrombin Time POC ABG pH ABG pH POC ABG pCO2 POC ABG pO2 ABG pO2 ABG HCO3 ABG O2 Saturation ABG Base Excess ABG Hemoglobin Oxyhemoglobin Sodium Potassium Chloride Carbon Dioxide BUN Creatinine Glucose POC Glucose 133 H 137 H 150 H Lactic Acid Calcium Magnesium Iron TIBC Direct Bilirubin AST Alkaline Phosphatase Troponin T C-Reactive Protein Total Protein Albumin LDL Cholesterol Direct HDL Cholesterol Vitamin B12 Folate TSH Urine WBC (Auto) Urine Creatinine Urine Total Protein [place] Screen [place] Titer Complement C3 Complement C4 02/20/19 02/20/19 02/20/19 07:05 07:05 11:27 WBC RBC 3.34 L Hgb 10.0 L Hct RDW 16.4 H Plt Count Seg Neuts % (Manual) 87.0 H Lymphocytes % (Manual) 4.0 L Seg Neutrophils # Man Lymphocytes # (Manual) 0.3 L PT INR APTT Thrombin Time POC ABG pH ABG pH POC ABG pCO2 POC ABG pO2 ABG pO2 ABG HCO3 ABG O2 Saturation ABG Base Excess ABG Hemoglobin Oxyhemoglobin Sodium Potassium Chloride 112.1 H Carbon Dioxide BUN 84 H Creatinine Glucose 150 H POC Glucose 141 H Lactic Acid Calcium Magnesium Iron TIBC Direct Bilirubin AST Alkaline Phosphatase Troponin T C-Reactive Protein Total Protein Albumin LDL Cholesterol Direct HDL Cholesterol Vitamin B12 Folate TSH Urine WBC (Auto) Urine Creatinine Urine Total Protein [place] Screen [place] Titer Complement C3 Complement C4 02/20/19 02/20/19 02/20/19 18:19 21:57 23:02 WBC RBC Hgb Hct RDW Plt Count Seg Neuts % (Manual) Lymphocytes % (Manual) Seg Neutrophils # Man Lymphocytes # (Manual) PT INR APTT Thrombin Time POC ABG pH ABG pH POC ABG pCO2 POC ABG pO2 ABG pO2 ABG HCO3 ABG O2 Saturation ABG Base Excess ABG Hemoglobin Oxyhemoglobin Sodium Potassium Chloride Carbon Dioxide BUN Creatinine Glucose POC Glucose 170 H 150 H 137 H Lactic Acid Calcium Magnesium Iron TIBC Direct Bilirubin AST Alkaline Phosphatase Troponin T C-Reactive Protein Total Protein Albumin LDL Cholesterol Direct HDL Cholesterol Vitamin B12 Folate TSH Urine WBC (Auto) Urine Creatinine Urine Total Protein [place] Screen [place] Titer Complement C3 Complement C4 02/21/19 02/21/19 02/21/19 05:44 07:10 07:10 WBC RBC 3.19 L Hgb 9.4 L Hct 29.2 L RDW 16.2 H Plt Count Seg Neuts % (Manual) 91.0 H Lymphocytes % (Manual) 7.0 L Seg Neutrophils # Man Lymphocytes # (Manual) 0.5 L PT INR APTT Thrombin Time POC ABG pH ABG pH POC ABG pCO2 POC ABG pO2 ABG pO2 ABG HCO3 ABG O2 Saturation ABG Base Excess ABG Hemoglobin Oxyhemoglobin Sodium Potassium Chloride 112.4 H Carbon Dioxide 21 L BUN 86 H Creatinine Glucose 126 H POC Glucose 129 H Lactic Acid Calcium 8.1 L Magnesium Iron TIBC Direct Bilirubin AST 56 H Alkaline Phosphatase 150 H Troponin T C-Reactive Protein Total Protein 5.7 L Albumin 1.9 L LDL Cholesterol Direct HDL Cholesterol Vitamin B12 Folate TSH Urine WBC (Auto) Urine Creatinine Urine Total Protein [place] Screen [place] Titer Complement C3 Complement C4 02/21/19 02/21/19 02/22/19 11:28 16:50 00:54 WBC RBC Hgb Hct RDW Plt Count Seg Neuts % (Manual) Lymphocytes % (Manual) Seg Neutrophils # Man Lymphocytes # (Manual) PT INR APTT Thrombin Time POC ABG pH ABG pH POC ABG pCO2 POC ABG pO2 ABG pO2 ABG HCO3 ABG O2 Saturation ABG Base Excess ABG Hemoglobin Oxyhemoglobin Sodium Potassium Chloride Carbon Dioxide BUN Creatinine Glucose POC Glucose 114 H 111 H 51 L Lactic Acid Calcium Magnesium Iron TIBC Direct Bilirubin AST Alkaline Phosphatase Troponin T C-Reactive Protein Total Protein Albumin LDL Cholesterol Direct HDL Cholesterol Vitamin B12 Folate TSH Urine WBC (Auto) Urine Creatinine Urine Total Protein [place] Screen [place] Titer Complement C3 Complement C4 02/22/19 02/22/19 02/22/19 00:59 04:13 04:13 WBC RBC 3.35 L Hgb 9.9 L Hct RDW 16.8 H Plt Count Seg Neuts % (Manual) 97.0 H Lymphocytes % (Manual) 1.0 L Seg Neutrophils # Man 9.7 H Lymphocytes # (Manual) 0.1 L PT INR APTT Thrombin Time POC ABG pH ABG pH POC ABG pCO2 POC ABG pO2 ABG pO2 ABG HCO3 ABG O2 Saturation ABG Base Excess ABG Hemoglobin Oxyhemoglobin Sodium Potassium Chloride 110.8 H Carbon Dioxide BUN 83 H Creatinine Glucose 157 H POC Glucose 144 H Lactic Acid Calcium Magnesium Iron TIBC Direct Bilirubin AST Alkaline Phosphatase Troponin T C-Reactive Protein Total Protein Albumin LDL Cholesterol Direct HDL Cholesterol Vitamin B12 Folate TSH Urine WBC (Auto) Urine Creatinine Urine Total Protein [place] Screen [place] Titer Complement C3 Complement C4 02/22/19 02/22/19 05:01 11:49 WBC RBC Hgb Hct RDW Plt Count Seg Neuts % (Manual) Lymphocytes % (Manual) Seg Neutrophils # Man Lymphocytes # (Manual) PT INR APTT Thrombin Time POC ABG pH ABG pH POC ABG pCO2 POC ABG pO2 ABG pO2 ABG HCO3 ABG O2 Saturation ABG Base Excess ABG Hemoglobin Oxyhemoglobin Sodium Potassium Chloride Carbon Dioxide BUN Creatinine Glucose POC Glucose 135 H 148 H Lactic Acid Calcium Magnesium Iron TIBC Direct Bilirubin AST Alkaline Phosphatase Troponin T C-Reactive Protein Total Protein Albumin LDL Cholesterol Direct HDL Cholesterol Vitamin B12 Folate TSH Urine WBC (Auto) Urine Creatinine Urine Total Protein [place] Screen [place] Titer Complement C3 Complement C4 Chest x-ray: report reviewed, image reviewed (minimal change from prior)
--- NOTE | 2019-02-22 13:14 | Progress Note ---
Assessment and Plan 53-year-old female status post open tracheostomy, PEG tube placement, fiberoptic bronchoscopy, POD 1 Plan: 1. vent management per critical care team 2. continue TF and PEG tube care 3. skin and tracheostomy sutures may be removed on POD 14 - 03/07 4. ok to dc from surgery standpoint when medically cleared. Will s/o. Thank you, please call with questions. Subjective Date of service: 02/22/19 Narrative: Patient seen and examined. She denies pain. No overnight events. Objective Vital Signs - 12hr 02/22/19 02/22/19 02/22/19 01:30 01:55 02:00 Temperature Pulse Rate 48 L 51 L 49 L Pulse Rate [ Anterior Bilateral Throughout] Respiratory 21 21 Rate Respiratory Rate [Anterior Bilateral Throughout] Respiratory Rate [ Generalized] Blood Pressure 151/77 155/79 O2 Sat by Pulse 100 100 100 Oximetry O2 Sat by Pulse Oximetry [ Assessment] 02/22/19 02/22/19 02/22/19 02:30 02:50 03:00 Temperature Pulse Rate 52 L 50 L 50 L Pulse Rate [ Anterior Bilateral Throughout] Respiratory 22 22 Rate Respiratory Rate [Anterior Bilateral Throughout] Respiratory 13 Rate [ Generalized] Blood Pressure 155/79 150/78 O2 Sat by Pulse 100 100 100 Oximetry O2 Sat by Pulse Oximetry [ Assessment] 02/22/19 02/22/19 02/22/19 03:30 03:34 04:00 Temperature 98.4 F Pulse Rate 55 L 62 Pulse Rate [ Anterior Bilateral Throughout] Respiratory 14 14 Rate Respiratory Rate [Anterior Bilateral Throughout] Respiratory Rate [ Generalized] Blood Pressure 150/78 151/85 O2 Sat by Pulse 100 100 100 Oximetry O2 Sat by Pulse Oximetry [ Assessment] 02/22/19 02/22/19 02/22/19 04:30 05:00 05:15 Temperature Pulse Rate 66 66 Pulse Rate [ Anterior Bilateral Throughout] Respiratory 14 Rate Respiratory Rate [Anterior Bilateral Throughout] Respiratory Rate [ Generalized] Blood Pressure 151/85 164/83 O2 Sat by Pulse 100 100 100 Oximetry O2 Sat by Pulse Oximetry [ Assessment] 02/22/19 02/22/19 02/22/19 05:30 05:39 06:00 Temperature Pulse Rate 63 64 80 Pulse Rate [ Anterior Bilateral Throughout] Respiratory 14 13 Rate Respiratory Rate [Anterior Bilateral Throughout] Respiratory Rate [ Generalized] Blood Pressure 164/83 164/83 152/89 O2 Sat by Pulse 99 100 Oximetry O2 Sat by Pulse Oximetry [ Assessment] 02/22/19 02/22/19 02/22/19 06:30 07:00 07:23 Temperature Pulse Rate 67 58 L 67 Pulse Rate [ Anterior Bilateral Throughout] Respiratory 15 14 Rate Respiratory Rate [Anterior Bilateral Throughout] Respiratory Rate [ Generalized] Blood Pressure 152/89 157/74 157/74 O2 Sat by Pulse 100 99 100 Oximetry O2 Sat by Pulse Oximetry [ Assessment] 02/22/19 02/22/19 02/22/19 07:30 07:34 08:00 Temperature 96.8 F L Pulse Rate 63 55 L Pulse Rate [ 67 Anterior Bilateral Throughout] Respiratory 14 14 Rate Respiratory 14 Rate [Anterior Bilateral Throughout] Respiratory Rate [ Generalized] Blood Pressure 157/74 160/74 O2 Sat by Pulse 100 100 Oximetry O2 Sat by Pulse 98 Oximetry [ Assessment] 02/22/19 02/22/19 02/22/19 08:30 09:00 09:30 Temperature Pulse Rate 82 71 74 Pulse Rate [ Anterior Bilateral Throughout] Respiratory 16 12 13 Rate Respiratory Rate [Anterior Bilateral Throughout] Respiratory Rate [ Generalized] Blood Pressure 160/74 164/89 164/89 O2 Sat by Pulse 96 99 Oximetry O2 Sat by Pulse Oximetry [ Assessment] 02/22/19 02/22/19 02/22/19 10:00 10:30 11:00 Temperature Pulse Rate 62 63 74 Pulse Rate [ Anterior Bilateral Throughout] Respiratory 15 14 15 Rate Respiratory Rate [Anterior Bilateral Throughout] Respiratory 13 Rate [ Generalized] Blood Pressure 162/83 162/83 171/94 O2 Sat by Pulse 95 97 100 Oximetry O2 Sat by Pulse Oximetry [ Assessment] 02/22/19 02/22/19 02/22/19 11:30 11:55 12:39 Temperature Pulse Rate 78 64 65 Pulse Rate [ Anterior Bilateral Throughout] Respiratory 14 Rate Respiratory Rate [Anterior Bilateral Throughout] Respiratory Rate [ Generalized] Blood Pressure 171/106 171/106 160/86 O2 Sat by Pulse 100 100 Oximetry O2 Sat by Pulse Oximetry [ Assessment] - General physical appearance Narrative Exam: General: Awake and alert. Shakes head yes and no to questions appropriately. ENT: Tracheostomy tube in place. There is some bloody staining of the dressing. Drain sponges changed to a clean drain sponge. No swelling of the neck or active bleeding. CV: S1, S2 present Respiratory: On vent no audible wheezes Abdomen: Soft, nontender, nondistended. PEG tube in place with bumper at 3.5 cm. Tube feeds running. - Labs 02/22/19 04:13 02/22/19 04:13 Diabetes panel 02/22/19 Range/Units 04:13 Sodium 145 (137-145) mmol/L Potassium 4.5 (3.6-5.0) mmol/L Chloride 110.8 H (98-107) mmol/L Carbon Dioxide 23 (22-30) mmol/L BUN 83 H (7-17) mg/dL Creatinine 0.9 (0.7-1.2) mg/dL Glucose 157 H (65-100) mg/dL Calcium 8.4 (8.4-10.2) mg/dL Calcium panel 02/22/19 Range/Units 04:13 Calcium 8.4 (8.4-10.2) mg/dL Pituitary panel 02/22/19 Range/Units 04:13 Sodium 145 (137-145) mmol/L Potassium 4.5 (3.6-5.0) mmol/L Chloride 110.8 H (98-107) mmol/L Carbon Dioxide 23 (22-30) mmol/L BUN 83 H (7-17) mg/dL Creatinine 0.9 (0.7-1.2) mg/dL Glucose 157 H (65-100) mg/dL Calcium 8.4 (8.4-10.2) mg/dL Adrenal panel 02/22/19 Range/Units 04:13 Sodium 145 (137-145) mmol/L Potassium 4.5 (3.6-5.0) mmol/L Chloride 110.8 H (98-107) mmol/L Carbon Dioxide 23 (22-30) mmol/L BUN 83 H (7-17) mg/dL Creatinine 0.9 (0.7-1.2) mg/dL Glucose 157 H (65-100) mg/dL Calcium 8.4 (8.4-10.2) mg/dL
--- NOTE | 2019-02-22 14:08 | Operative Report ---
PREOPERATIVE DIAGNOSIS: Ventilator-dependent respiratory failure. POSTOPERATIVE DIAGNOSIS: Ventilator-dependent respiratory failure. FINDINGS: 1. Bleeding from confluence of superficial veins consistent with a large anterior jugular vein overlying the trachea. 2. An 8-Scottish proximal XLT tracheostomy placed under bronchoscopic guidance. PROCEDURE: Percutaneous converted to open tracheostomy. ANESTHESIA: General endotracheal anesthesia, local. SURGEON: Lisha Doran DO SIGN INSTALLER: Tena Ventura MD ESTIMATED BLOOD LOSS: 25-35 mL. PATHOLOGY: None. CONDITION AND DISPOSITION: The patient is stable and back to ICU. HISTORY OF PRESENT ILLNESS AND INDICATIONS: The patient is a 53-year-old female who presented to the hospital on 02/01/2019 due to altered mental status per her family. The patient was intubated for an airway protection. Apparently, the patient had confusion at home and difficulty speaking and the day, she was found unresponsive. She was found to have swelling of the right side of her neck and has been unable to be weaned from the ventilator. She was found to also have strep pneumonia and bacteremia, which she is being treated for. Due to the patient's inability to wean from the vent, Surgery was consulted for trach and PEG placement. I discussed all risks, benefits and alternatives to surgery with the patient's family and consent was obtained. PROCEDURE IN DETAIL: The patient was identified in the hospital bed and a timeout was performed. After anesthesia was induced, a shoulder roll was placed behind the patient and the neck slightly hyperextended. The neck was prepped and draped in the usual sterile fashion. Dr. Ventura performed a fiberoptic bronchoscopy and a local anesthetic was then infiltrated into the skin and subcutaneous tissue, approximately 2 fingerbreadths above the sternal notch. A 2 cm transverse incision was then made in the skin using a 15 blade and dissection carried through the subcutaneous tissues using a hemostat. The needle was placed into the trachea under direct visualization and air aspirated. The wire was passed towards the gilson. The needle was then removed and the trachea dilated with the first dilator. Upon withdrawing the dilator, there was a large amount of bleeding from the wound. Pressure was held at the site. The bleeding continued despite pressure and source could not be determined through the current incision. It was therefore decided to move the case to the operating room. The wire was removed and pressure held over the site manually. The endotracheal tube had been advanced and the balloon reinflated and the patient connected to an Ambu bag. The patient was transferred to the operating room and remained in stable condition throughout. The neck was then prepped and draped in the usual sterile fashion and a timeout performed. The incision was extended transversely using a 15 blade in order to gain better exposure to the neck. The platysma and strap muscles were carefully dissected from underlying tissue and divided using electrocautery. Upon examination, there appeared to be a large vein present on the right side of the neck that extended towards the midline and it was overlying the trachea. There was a confluence of veins from which the bleeding was coming from and the veins were subsequently and meticulously dissected out and from the surrounding tissues and suture ligated using 3-0 silk sutures. Once all the bleeding was controlled, the strap muscles overlying the trachea were dissected and divided using electrocautery in order to get better exposure to the trachea. The tracheostomy was then performed. Dr. Ventura performed bronchoscopy and the endotracheal tube was pulled back under direct visualization. The needle was inserted into the trachea at the second tracheal ring and seen directly using the bronchoscope. The wire was passed towards the gilson and the needle removed. The trachea was then serially dilated under bronchoscopic visualization and an 8-Scottish tracheostomy tube placed. The 8-Scottish tracheostomy tube, however, was too short proximally and was putting pressure on the sternal notch and therefore this was switched out over a wire to an 8-Scottish proximal XLT tracheostomy tube. The bronchoscopy was performed through the tracheostomy, which showed no bleeding, clear airway and the tip of the tube to be several centimeters above the gilson. The tracheostomy was then connected up to the ventilator circuit and the inspiratory and expiratory tidal volumes were satisfactory. Fibrillar was placed in the wound bed to help with further hemostasis. Prior to closing the wound, hemostasis was very meticulously ensured. The skin incision was approximated using 3-0 Prolene interrupted sutures. The tracheostomy phlanges were sutured to the skin using 3-0 Prolene interrupted sutures. A drain sponge was applied in between the skin and tracheostomy and tracheostomy was further secured using the neck strap. At the end of this portion of the case, all sponge, instrument, sharp counts were correct. The patient was stable after this portion of the procedure and we then proceeded with the PEG tube placement. Please see Dr. Ventura's procedure note for further details for PEG tube placement. [facility]# [id number] FOREIGN/YESICA DAVISON
[2019-02-22] MEDS: ACETAMINOPHEN 325 MG TAB PO PRN (21:02)
[2019-02-22] MEDS: INSULIN GLARGINE 100 UNITS/ML SUB-Q SCH (22:12)
--- NOTE | 2019-02-22 23:13 | Progress Note ---
Assessment and Plan Assessment and plan: 53 year old woman who was brought in by her family for unsteady gait, fatigue, and withdrawn behavior. I finally noticed difficult to it fine motor skills throughout that night she was having difficulty expressing herself. she was at a restaurant family I will continue to point to the menu. She became more disoriented and less responsive prompting family to bring her to the emergency room - Acute respiratory failure on MV > 96 hours Continue mechanical ventilator, plan for transfer to LTAC for slow weaning, Status post trach and PEG 02/21 severe Sepsis Strep pneumoniae bacteremia Right neck cellulitis vs neck LAD PNA meningitis TERRENCE neg for vegatations * Has completed antibiotics. steno in sputum likely colonizer Hyperglycemia, type 2 DM cont ssi, amd lantus Thrombocytopenia likely due to sepsis or autoimmune phenomenon, hematology input appreciated, hiv-negative, fibrinogen level is not low, PT PTT is normal. 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 fib. Will need anticoagulation when bleeding risk is reduced -Atrial fibrillation with RVR Management per Cardiology History of lupus? families is unclear on this medical history, but know that she has some form of autoimmune disease Compliments are reduced, CHESTER is positive, anti ds dna pending, highly suspect lupus cont steroids Acute metabolic encephalopathy Likely due to sepsis, eeg neg for seizure, neuro input appreciated Acute respiratory failure on MV > 96 hours cont vent per pulmonology Type 2 FL - cardiology input appreciated, rx the underlying cause Hypothyroidism TSH elevated, synthroid dose increased -repeat TFTs in 4-6 wks Hypokalemia, was supplemented Prognosis is guarded The high probability of a clinically significant, sudden or life threatening deterioration of the [CV, Neurology, renal] system(s) required my full and direct attention, intervention and personal management. The aggregate critical care time was [45] minutes. This time is in addition to time spent performing reported procedures but includes the following: [x] Data Review and interpretation [x] Patient assessment and monitoring of vital signs [x] Documentation [x] Medication orders and management History Interval history: no fever, no vomiting, no agitation -no seizures or vomiting Hospitalist Physical - Physical exam Narrative exam: General.: no distress, nontoxic HEENT: Moist mucous membranes, extraocular muscles intact, no lymphadenopathy Neck: supple, trache noted Cardiac: S1-S2 heard Lungs: clear to auscultation bilaterally Abdomen: soft , nontender, nondistended, bowel sounds positive, PEG in place Extremities: no edema clubbing or cyanosis Skin: no rash or lesions Neurologic: left hemiparesis, opens eyes, obeys commands Psych: calm, and cooperative - Constitutional Vitals: Temp Pulse Resp BP Pulse Ox 97.6 F 93 H 16 150/80 100 02/22/19 19:53 02/22/19 22:30 02/22/19 22:30 02/22/19 22:30 02/22/19 22:30 General appearance: Present: mild distress, well-nourished, other (Intubated) Results - Labs CBC & Chem 7: 02/24/19 10:52 02/24/19 10:52 Labs: Laboratory Last Values WBC 10.0 K/mm3 (4.5-11.0) 02/22/19 04:13 RBC 3.35 M/mm3 (3.65-5.03) L 02/22/19 04:13 Hgb 9.9 gm/dl (10.1-14.3) L 02/22/19 04:13 Hct 30.8 % (30.3-42.9) 02/22/19 04:13 MCV 92 fl (79-97) 02/22/19 04:13 MCH 30 pg (28-32) 02/22/19 04:13 MCHC 32 % (30-34) 02/22/19 04:13 RDW 16.8 % (13.2-15.2) H 02/22/19 04:13 Plt Count 167 K/mm3 (140-440) 02/22/19 04:13 Lymph % (Auto) [facility] 02/05/19 13:02 [place] % (Auto) [facility] 02/05/19 13:02 Eos % (Auto) [facility] 02/05/19 13:02 Baso % (Auto) [facility] 02/05/19 13:02 Lymph # [facility] 02/05/19 13:02 [place] # [facility] 02/05/19 13:02 Eos # [facility] 02/05/19 13:02 Baso # [facility] 02/05/19 13:02 Add Manual Diff Complete 02/22/19 04:13 Total Counted 100 02/22/19 04:13 Seg Neutrophils % [facility] 02/22/19 04:13 Seg Neuts % (Manual) 97.0 % (40.0-70.0) H 02/22/19 04:13 1.0 % 02/22/19 04:13 1.0 % (13.4-35.0) L 02/22/19 04:13 Reactive Lymphs % (Man) 0 % 02/22/19 04:13 0 % (0.0-7.3) 02/22/19 04:13 0 % (0.0-4.3) 02/22/19 04:13 0 % (0.0-1.8) 02/22/19 04:13 1.0 % 02/22/19 04:13 0 % 02/22/19 04:13 0 % 02/22/19 04:13 0 % 02/22/19 04:13 Nucleated RBC % Not Reportable 02/22/19 04:13 Seg Neutrophils # [facility] 02/05/19 13:02 Seg Neutrophils # Man 9.7 K/mm3 (1.8-7.7) H 02/22/19 04:13 Band Neutrophils # 0.1 K/mm3 02/22/19 04:13 0.1 K/mm3 (1.2-5.4) L 02/22/19 04:13 Abs React Lymphs (Man) 0.0 K/mm3 02/22/19 04:13 0.0 K/mm3 (0.0-0.8) 02/22/19 04:13 0.0 K/mm3 (0.0-0.4) 02/22/19 04:13 0.0 K/mm3 (0.0-0.1) 02/22/19 04:13 0.1 K/mm3 02/22/19 04:13 0.0 K/mm3 02/22/19 04:13 0.0 K/mm3 02/22/19 04:13 Blast Cells # 0.0 K/mm3 02/22/19 04:13 WBC Morphology Not Reportable 02/22/19 04:13 Hypersegmented Neuts Not Reportable 02/22/19 04:13 Hyposegmented Neuts Not Reportable 02/22/19 04:13 Hypogranular Neuts Not Reportable 02/22/19 04:13 Cancelled 02/01/19 07:16 Not Reportable 02/22/19 04:13 Not Reportable 02/22/19 04:13 Not Reportable 02/22/19 04:13 Not Reportable 02/22/19 04:13 Not Reportable 02/22/19 04:13 Not Reportable 02/22/19 04:13 Consistent w auto 02/22/19 04:13 Not Reportable 02/22/19 04:13 Plt Clumps, EDTA Not Reportable 02/22/19 04:13 Few 02/22/19 04:13 Not Reportable 02/22/19 04:13 Not Reportable 02/22/19 04:13 Plt Morphology Comment Not Reportable 02/22/19 04:13 RBC Morphology Not Reportable 02/22/19 04:13 Dimorphic RBCs Not Reportable 02/22/19 04:13 Not Reportable 02/22/19 04:13 Not Reportable 02/22/19 04:13 Not Reportable 02/22/19 04:13 Cancelled 02/01/19 07:16 Not Reportable 02/22/19 04:13 Not Reportable 02/22/19 04:13 Not Reportable 02/22/19 04:13 Not Reportable 02/22/19 04:13 Not Reportable 02/22/19 04:13 Not Reportable 02/22/19 04:13 Rare 02/22/19 04:13 Not Reportable 02/22/19 04:13 Not Reportable 02/22/19 04:13 Cancelled 02/01/19 07:16 Not Reportable 02/22/19 04:13 Not Reportable 02/22/19 04:13 Not Reportable 02/22/19 04:13 Not Reportable 02/22/19 04:13 Not Reportable 02/22/19 04:13 Not Reportable 02/22/19 04:13 Not Reportable 02/22/19 04:13 Acanthocytes (Spur) Not Reportable 02/22/19 04:13 Rouleaux Not Reportable 02/22/19 04:13 Not Reportable 02/22/19 04:13 1+ 02/22/19 04:13 Not Reportable 02/22/19 04:13 ESR 76 mm/Hr (0-20) 02/01/19 16:51 Not Reportable 02/22/19 04:13 Hem Pathologist Commnt No 02/22/19 04:13 PT 16.3 Sec. (12.2-14.9) H 02/06/19 07:35 INR 1.35 (0.87-1.13) H 02/06/19 07:35 APTT 33.1 Sec. (24.2-36.6) 02/06/19 07:35 20.0 Sec. (15.1-19.6) H 02/01/19 07:16 479 mg/dl (211-480) 02/03/19 14:42 POC ABG pH 7.418 (7.35-7.45) 02/12/19 05:36 ABG pH 7.440 pH Units (7.350-7.450) 02/11/19 04:10 POC ABG pCO2 36.9 (35-45) 02/12/19 05:36 ABG pCO2 37.4 mm Hg 02/11/19 04:10 POC ABG pO2 92 (80-105) 02/12/19 05:36 ABG pO2 69.4 mm Hg (80.0-90.0) L 02/11/19 04:10 POC ABG HCO3 23.8 (22-26 mml/L) 02/12/19 05:36 ABG HCO3 24.8 mmol/L (20.0-26.0) 02/11/19 04:10 POC ABG Total CO2 25 (23-27mmol/L) 02/12/19 05:36 POC ABG O2 Sat 97 02/12/19 05:36 ABG O2 Saturation 94.2 % (95.0-99.0) L 02/11/19 04:10 ABG O2 Content 14.3 (0.0-44) 02/11/19 04:10 POC ABG Base Excess -1 ((-2) - (+3)mmol/L) 02/12/19 05:36 ABG Base Excess 0.8 mmol/L (-2.0-3.0) 02/11/19 04:10 ABG Hemoglobin 11.0 gm/dl (12.0-16.0) L 02/11/19 04:10 ABG Carboxyhemoglobin 1.5 % (0.0-5.0) 02/11/19 04:10 ABG Methemoglobin 0.7 % (0.0-1.5) 02/11/19 04:10 92.1 % (95.0-99.0) L 02/11/19 04:10 25 % 02/12/19 05:36 Sodium 145 mmol/L (137-145) 02/22/19 04:13 Potassium 4.5 mmol/L (3.6-5.0) 02/22/19 04:13 Chloride 110.8 mmol/L (98-107) H 02/22/19 04:13 Carbon Dioxide 23 mmol/L (22-30) 02/22/19 04:13 16 mmol/L 02/22/19 04:13 BUN 83 mg/dL (7-17) H 02/22/19 04:13 0.9 mg/dL (0.7-1.2) 02/22/19 04:13 Estimated GFR > 60 ml/min 02/22/19 04:13 92 % 02/22/19 04:13 Glucose 157 mg/dL (65-100) H 02/22/19 04:13 POC Glucose 133 (70-105) H 02/22/19 21:06 Lactic Acid 1.40 mmol/L (0.7-2.0) 02/01/19 20:57 Calcium 8.4 mg/dL (8.4-10.2) 02/22/19 04:13 Phosphorus 3.20 mg/dL (2.5-4.5) 02/20/19 07:05 Magnesium 1.70 mg/dL (1.7-2.3) 02/20/19 07:05 Iron 11 ug/dL (37-170) L 02/03/19 14:42 TIBC 88 mcg/dL (250-450) L 02/03/19 14:42 332.9 ng/mL (13.0-400.0) 02/03/19 14:42 0.30 mg/dL (0.1-1.2) 02/21/19 07:10 0.7 mg/dL (0-0.2) H 02/01/19 07:29 0.5 mg/dL 02/01/19 07:29 AST 56 units/L (5-40) H 02/21/19 07:10 ALT 29 units/L (7-56) 02/21/19 07:10 150 units/L (35-129) H 02/21/19 07:10 0.181 ng/mL (0.00-0.029) H* 02/01/19 07:16 32.30 mg/dL (0.00-1.30) H 02/01/19 17:04 5.7 g/dL (6.3-8.2) L 02/21/19 07:10 1.9 g/dL (3.9-5) L 02/21/19 07:10 0.5 % 02/21/19 07:10 Triglycerides 95 mg/dL (2-149) 02/01/19 07:16 Cholesterol 75 mg/dL (50-199) 02/01/19 07:16 34 mg/dL (50-130) L 02/01/19 07:16 20 mg/dL (40-59) L 02/01/19 07:16 3.75 % 02/01/19 07:16 Vitamin B12 1468 pg/mL (211-911) H 02/03/19 14:42 5.18 ng/mL (7.3-26.0) L 02/03/19 14:42 TSH 8.470 mlU/mL (0.270-4.200) H 02/01/19 07:43 Free T4 1.08 ng/dL (0.76-1.46) 02/01/19 07:43 Sara (Yellow) 02/01/19 09:45 Cloudy (Clear) 02/01/19 09:45 5.0 (5.0-7.0) 02/01/19 09:45 Ur Specific [place] 1.019 (1.003-1.030) 02/01/19 09:45 >500 mg/dL (Negative) 02/01/19 09:45 Neg mg/dL (Negative) 02/01/19 09:45 Neg mg/dL (Negative) 02/01/19 09:45 Mod (Negative) 02/01/19 09:45 Neg (Negative) 02/01/19 09:45 Neg (Negative) 02/01/19 09:45 < 2.0 mg/dL (<2.0) 02/01/19 09:45 Ur Leukocyte Esterase Neg (Negative) 02/01/19 09:45 10.0 /HPF (0.0-6.0) H 02/09/19 13:35 10.0 /HPF (0.0-6.0) 02/09/19 13:35 U Epithel Cells (Auto) 3.0 /HPF (0-13.0) 02/09/19 13:35 Amorphous Crystals 1+ 02/01/19 09:45 Few /HPF 02/09/19 13:35 92.9 mg/dL (0.1-20.0) H 02/09/19 18:54 Protein/Creatinin Ratio 1.25 02/09/19 18:54 116 mg/dL (5-11.8) H 02/09/19 18:54 Turbid 02/05/19 14:10 Colorless 02/05/19 14:10 1250 /mm3 (1-10) 02/05/19 14:10 30 /mm3 (0-0) 02/05/19 14:10 CSF Seg Neutrophils 30.0 % (0-6) 02/05/19 14:10 40.0 % (40-80) 02/05/19 14:10 CSF Reactive Lymphs 0 % 02/05/19 14:10 30.0 % (15-45) 02/05/19 14:10 0 % 02/05/19 14:10 0 % 02/05/19 14:10 C 02/05/19 14:10 38 mg/dL 02/05/19 14:10 140 mg/dL 02/05/19 14:10 Random Vancomycin 9.8 ug/mL (0-40.0) 02/03/19 03:30 CHESTER Screen Positive (Negative) H 02/01/19 17:04 CHESTER Titer 1:320 (Negative) H 02/01/19 17:04 CHESTER Pattern Speckled 02/01/19 17:04 Proteinase 3 (PR3) Ab <1.0 AI (<1.0) 02/01/19 19:28 Myeloperoxidase Ab <1.0 AI (<1.0) 02/01/19 19:28 Double Strand DNA Ab 1 IU/mL (<=4) 02/11/19 04:54 36 mg/dL (83-193) L 02/01/19 16:51 12 mg/dL (15-57) L 02/01/19 16:51 RPR Nonreactive (Nonreactive) 02/02/19 15:45 Hepatitis A IgM Ab Non-reactive (NonReactive) 02/02/19 19:29 Hep Bs Antigen Non-reactive (Negative) 02/02/19 19:29 Hep B Core IgM Ab Non-reactive (NonReactive) 02/02/19 19:29 Non-reactive (NonReactive) 02/02/19 19:29 HIV 1&2 Antibody Rapid Non react (Non React) 02/02/19 15:46 Non react (Non React) 02/02/19 15:46 Flexitest 1 02/02/19 13:02 Blood Type B POSITIVE 02/05/19 13:02 Active Medications - Current Medications Current Medications: Generic Name Dose Route Start Last Admin Trade Name Freq PRN Reason Stop Dose Admin Acetaminophen 650 mg 02/01/19 10:47 02/22/19 21:02 Tylenol PO 650 mg Q4H PRN Administration Pain MILD(1-3)/Fever >100.5/VALENZUELA Albuterol 2.5 mg 02/01/19 10:47 Proventil IH Q4HRT PRN Shortness Of Breath Albuterol/Ipratropium 1 ampul 02/01/19 12:00 02/22/19 20:26 Duoneb *Not For Prn Use* IH 1 ampul Q6HRT AMOL Administration Lipase/Protease/Amylase 1 each 02/22/19 08:27 Pancreazchris Hammond 10,500 Unit FEEDTUBE PRN PRN For Clogged Feeding Tube Dexamethasone 2 mg 02/16/19 10:00 02/22/19 21:03 Decadron IV 2 mg Q12HR AMOL Administration Diltiazem HCl 60 mg 02/13/19 12:00 02/22/19 18:53 Cardizem PO 60 mg Q6H AMOL Administration Famotidine 20 mg 02/12/19 10:00 02/22/19 21:01 Pepcid PO 20 mg BID AMOL Administration Fentanyl 50 mcg 02/19/19 16:20 Sublimaze IV ONCE PRN Pain , Severe (7-10) Folic Acid 1 mg 02/06/19 10:00 02/22/19 10:49 Folvite PO 1 mg QDAY AMOL Administration Hydralazine HCl 10 mg 02/13/19 22:15 02/21/19 18:01 Apresoline IV 10 mg Q6H PRN Administration Hypertension Hydrophilic Ointment 1 applic 02/01/19 11:09 02/19/19 21:54 Vaseline Lip Therapy TP 1 applic Q2HR PRN Administration Dry Lips Insulin Glargine 15 units 02/22/19 22:00 02/22/19 22:12 Lantus SUB-Q 15 units QHS AMOL Administration Insulin Human Regular 0 units 02/10/19 19:00 02/22/19 17:59 Humulin R SUB-Q Not Given Q6HR [facility] Protocol Levothyroxine Sodium 125 mcg 02/07/19 10:00 02/22/19 10:49 Synthroid PO 125 mcg QAM AMOL Administration Multi-Ingred Cream/Lotion/Oil/Oint 1 applic 02/01/19 11:09 02/08/19 21:18 Artificial Tears Ophth Oint OU 1 applic Q4HR PRN Administration Dry Eye(s) Multivitamins 5 ml 02/06/19 10:00 02/22/19 10:49 Centrum Liq PO 5 ml QDAY AMOL Administration Ondansetron HCl 4 mg 02/01/19 10:47 Zofran IV Q8H PRN Nausea And Vomiting Simple Syrup 15 ml 02/22/19 08:27 Simple Syrup FEEDTUBE PRN PRN Hypoglycemia Simple Syrup 30 ml 02/22/19 08:27 Simple Syrup FEEDTUBE PRN PRN Hypoglycemia Sodium Bicarbonate 325 mg 02/22/19 08:27 Sodium Bicarbonate FEEDTUBE PRN PRN For Clogged Feeding Tube Sodium Chloride 10 ml 02/01/19 22:00 02/22/19 21:04 Sodium Chloride Flush Syringe 10 Ml IV 10 ml BID AMOL Administration Sodium Chloride 10 ml 02/01/19 10:47 Sodium Chloride Flush Syringe 10 Ml IV PRN PRN LINE FLUSH Nutrition/Malnutrition Assess - Dietary Evaluation Nutrition/Malnutrition Findings: Nutrition Notes Start: 02/02/19 15:11 Freq: Status: Active Protocol: Document 02/22/19 08:21 LM (Rec: 02/22/19 08:27 LM [email or web address]) Nutrition Notes Initial or Follow up Reassessment Current Diagnosis Acute Kidney Injury, Respiratory Failure Other Pertinent Diagnosis Hypothyroidism, Septic shock, Acute encephalopathy, UTI Current Diet Nepro at 40 ml/hr Labs/Tests BUN 83 BG 157 Pertinent Medications Reviewed Height 5 ft 5 in Weight 95 kg [place] Body Weight (kg) 56.81 BMI 34.8 Subjective/Other Information Nepro running at 40 ml/hr at time of visit. Pt tolerating TF. s/p trach and PEG. Percent of energy/protein needs met: 92%/68% Burn Absent Trauma Absent #1 Nutrition Diagnosis Inadequate oral intake Diagnosis Progress(for reassessment Continues documentation) Is patient on ventilator? Yes Is Patient Ambulatory and/or Out of Bed No REE-([facility]-confined to bed) [phone] Calculation Used for Recommendations [facility] Additional Notes Protein Needs: 114g (2g/kg IBW ) Fluid Needs: 1 ml/kcal Nutrition Intervention Change Diet Order: Continue TF Nutrition Support: Nepro at 40ml/hr Flush with 170ml q4h Kcal 1,728 Protein (gm) 78 Fluid (mL) 697 Goal #1 Meet at least 75% of energy and portein needs Anticipated Discharge Needs: TF Follow-Up By: 02/26/19 Additional Comments F/U for TF tolerance
[2019-02-23] MEDS: IPRATROPIUM/ALBUTEROL SULFATE 3 ML AMPUL.NEB IH SCH ×4 (01:50→19:34)
[2019-02-23] MEDS: INSULIN REGULAR, HUMAN 100 UNITS/1 ML SUB-Q SCH ×2 (05:20→17:47)
[2019-02-23] MEDS: dilTIAZem 60 MG TAB PO SCH ×3 (05:22→17:47)
--- NOTE | 2019-02-23 10:03 | Progress Note ---
Assessment and Plan 53 y/o female with strep pneumonae bacteremia, meningitis and now stroke with acute respiratory failure and continued azotemia. 1. Neuro/Rheum: Today will change to Prednisone 20 daily. Will likely leave at this dose and can be tapered over time. 2. MSK: Continue PT as patient's mental status has improved and she is very weak. 3. Renal: stable, nephrology has signed off. 4. CV-Follow up cards recs if any new ones. 5. GI-patient with severe gastritis seen on Peg placement. Stopped H2 geraldine and placed on BID PPI 6. Overall prognosis remains guarded, however good that patient is awake. 7. Stable for transfer when bed available. Total critical care time 31 minutes Subjective Date of service: 02/23/19 Principal diagnosis: h/o low plt Interval history: No acute events. Awake. Placed on PSV and tolerating. No family present. Still awaiting placement. Objective Vital Signs - 12hr 02/22/19 02/22/19 02/22/19 22:02 22:25 22:30 Temperature Pulse Rate 93 H 93 H Pulse Rate [ Anterior Bilateral Throughout] Respiratory 15 15 16 Rate Respiratory Rate [Anterior Bilateral Throughout] Respiratory 13 Rate [ Generalized] Blood Pressure 150/80 O2 Sat by Pulse 100 100 Oximetry O2 Sat by Pulse Oximetry [ Assessment] 02/22/19 02/22/19 02/22/19 23:00 23:21 23:23 Temperature Pulse Rate 88 88 Pulse Rate [ Anterior Bilateral Throughout] Respiratory 21 Rate Respiratory Rate [Anterior Bilateral Throughout] Respiratory Rate [ Generalized] Blood Pressure 144/75 144/75 O2 Sat by Pulse 100 100 Oximetry O2 Sat by Pulse 100 Oximetry [ Assessment] 02/22/19 02/22/19 02/22/19 23:25 23:29 23:30 Temperature Pulse Rate 85 88 79 Pulse Rate [ Anterior Bilateral Throughout] Respiratory 15 15 15 Rate Respiratory Rate [Anterior Bilateral Throughout] Respiratory Rate [ Generalized] Blood Pressure 144/75 144/75 O2 Sat by Pulse 100 100 100 Oximetry O2 Sat by Pulse Oximetry [ Assessment] 02/22/19 02/22/19 02/22/19 23:34 23:36 23:49 Temperature 97.6 F Pulse Rate 77 85 Pulse Rate [ Anterior Bilateral Throughout] Respiratory 15 Rate Respiratory Rate [Anterior Bilateral Throughout] Respiratory Rate [ Generalized] Blood Pressure 144/75 144/75 O2 Sat by Pulse 100 Oximetry O2 Sat by Pulse Oximetry [ Assessment] 02/23/19 02/23/19 02/23/19 00:00 00:30 01:00 Temperature Pulse Rate 82 93 H 76 Pulse Rate [ Anterior Bilateral Throughout] Respiratory 15 11 L 14 Rate Respiratory Rate [Anterior Bilateral Throughout] Respiratory Rate [ Generalized] Blood Pressure 130/63 130/63 136/71 O2 Sat by Pulse 100 100 100 Oximetry O2 Sat by Pulse Oximetry [ Assessment] 02/23/19 02/23/19 02/23/19 01:30 02:00 02:04 Temperature Pulse Rate 86 73 Pulse Rate [ 76 Anterior Bilateral Throughout] Respiratory 12 12 Rate Respiratory 15 Rate [Anterior Bilateral Throughout] Respiratory Rate [ Generalized] Blood Pressure 136/71 144/75 O2 Sat by Pulse 100 100 Oximetry O2 Sat by Pulse Oximetry [ Assessment] 02/23/19 02/23/19 02/23/19 02:30 03:00 03:30 Temperature Pulse Rate 87 85 71 Pulse Rate [ Anterior Bilateral Throughout] Respiratory 16 20 13 Rate Respiratory Rate [Anterior Bilateral Throughout] Respiratory Rate [ Generalized] Blood Pressure 144/75 144/75 O2 Sat by Pulse 100 100 100 Oximetry O2 Sat by Pulse Oximetry [ Assessment] 02/23/19 02/23/19 02/23/19 04:00 04:30 05:00 Temperature 99.1 F Pulse Rate 75 59 L 65 Pulse Rate [ Anterior Bilateral Throughout] Respiratory 17 15 15 Rate Respiratory Rate [Anterior Bilateral Throughout] Respiratory Rate [ Generalized] Blood Pressure 165/95 165/95 143/74 O2 Sat by Pulse 99 100 100 Oximetry O2 Sat by Pulse Oximetry [ Assessment] 02/23/19 02/23/19 02/23/19 05:22 05:30 06:00 Temperature Pulse Rate 70 70 73 Pulse Rate [ Anterior Bilateral Throughout] Respiratory 14 16 Rate Respiratory Rate [Anterior Bilateral Throughout] Respiratory Rate [ Generalized] Blood Pressure 143/74 143/74 159/86 O2 Sat by Pulse 100 100 Oximetry O2 Sat by Pulse Oximetry [ Assessment] 02/23/19 02/23/19 02/23/19 06:06 06:30 07:00 Temperature Pulse Rate 72 80 76 Pulse Rate [ Anterior Bilateral Throughout] Respiratory 16 15 Rate Respiratory Rate [Anterior Bilateral Throughout] Respiratory Rate [ Generalized] Blood Pressure 159/86 159/86 145/81 O2 Sat by Pulse 100 100 100 Oximetry O2 Sat by Pulse Oximetry [ Assessment] 02/23/19 02/23/19 02/23/19 07:30 08:00 08:30 Temperature Pulse Rate 86 91 H 91 H Pulse Rate [ Anterior Bilateral Throughout] Respiratory 16 16 18 Rate Respiratory Rate [Anterior Bilateral Throughout] Respiratory Rate [ Generalized] Blood Pressure 145/81 161/91 161/91 O2 Sat by Pulse 100 100 100 Oximetry O2 Sat by Pulse Oximetry [ Assessment] 02/23/19 09:28 Temperature Pulse Rate 78 Pulse Rate [ Anterior Bilateral Throughout] Respiratory 15 Rate Respiratory Rate [Anterior Bilateral Throughout] Respiratory Rate [ Generalized] Blood Pressure 162/97 O2 Sat by Pulse 100 Oximetry O2 Sat by Pulse Oximetry [ Assessment] Constitutional: no acute distress, alert Eyes: non-icteric ENT: oropharynx moist Neck: supple, other (Proximal XLT size [address]) Effort: normal Ascultation: Bilateral: other (coarse BS bilaterally) Cardiovascular: regular rate and rhythm (no mrg) Gastrointestinal: normoactive bowel sounds, soft, non-tender, non-distended Integumentary: normal Extremities: no cyanosis, no edema, pink and warm Neurologic: other (L sided hemiparesis) Psychiatric: mood appropriate, affect normal CBC and BMP: 02/22/19 04:13 02/22/19 04:13 ABG, PT/INR, D-dimer: ABG POC ABG pH 7.418 (7.35-7.45) 02/12/19 05:36 ABG pH 7.440 pH Units (7.350-7.450) 02/11/19 04:10 POC ABG pCO2 36.9 (35-45) 02/12/19 05:36 ABG pCO2 37.4 mm Hg 02/11/19 04:10 POC ABG pO2 92 (80-105) 02/12/19 05:36 ABG pO2 69.4 mm Hg (80.0-90.0) L 02/11/19 04:10 POC ABG HCO3 23.8 (22-26 mml/L) 02/12/19 05:36 POC ABG Total CO2 25 (23-27mmol/L) 02/12/19 05:36 POC ABG O2 Sat 97 02/12/19 05:36 ABG O2 Saturation 94.2 % (95.0-99.0) L 02/11/19 04:10 PT/INR, D-dimer PT 16.3 Sec. (12.2-14.9) H 02/06/19 07:35 INR 1.35 (0.87-1.13) H 02/06/19 07:35 Abnormal lab findings: Abnormal Labs 02/01/19 02/01/19 02/01/19 07:16 07:16 07:16 WBC 17.7 H RBC Hgb Hct RDW 16.9 H Plt Count 62 L Seg Neuts % (Manual) 95.0 H Lymphocytes % (Manual) 0 L Seg Neutrophils # Man 16.8 H Lymphocytes # (Manual) 0.0 L PT 15.0 H INR 1.21 H APTT Thrombin Time 20.0 H POC ABG pH ABG pH POC ABG pCO2 POC ABG pO2 ABG pO2 ABG HCO3 ABG O2 Saturation ABG Base Excess ABG Hemoglobin Oxyhemoglobin Sodium 135 L Potassium Chloride 97.7 L Carbon Dioxide 19 L BUN 51 H Creatinine 4.5 H Glucose 112 H POC Glucose Lactic Acid Calcium Magnesium Iron TIBC Direct Bilirubin AST Alkaline Phosphatase Troponin T 0.181 H* C-Reactive Protein Total Protein Albumin LDL Cholesterol Direct 34 L HDL Cholesterol 20 L Vitamin B12 Folate TSH Urine WBC (Auto) Urine Creatinine Urine Total Protein CHESTER Screen CHESTER Titer Complement C3 Complement C4 02/01/19 02/01/19 02/01/19 07:29 07:29 07:43 WBC RBC Hgb Hct RDW Plt Count Seg Neuts % (Manual) Lymphocytes % (Manual) Seg Neutrophils # Man Lymphocytes # (Manual) PT INR APTT Thrombin Time POC ABG pH ABG pH POC ABG pCO2 POC ABG pO2 ABG pO2 ABG HCO3 ABG O2 Saturation ABG Base Excess ABG Hemoglobin Oxyhemoglobin Sodium Potassium Chloride Carbon Dioxide BUN Creatinine Glucose POC Glucose Lactic Acid 4.80 H* Calcium Magnesium Iron TIBC Direct Bilirubin 0.7 H AST 42 H Alkaline Phosphatase Troponin T C-Reactive Protein Total Protein 8.9 H Albumin 2.3 L LDL Cholesterol Direct HDL Cholesterol Vitamin B12 Folate TSH 8.470 H Urine WBC (Auto) Urine Creatinine Urine Total Protein [place] Screen [place] Titer Complement C3 Complement C4 02/01/19 02/01/19 02/01/19 09:45 11:32 13:50 WBC RBC Hgb Hct RDW Plt Count Seg Neuts % (Manual) Lymphocytes % (Manual) Seg Neutrophils # Man Lymphocytes # (Manual) PT INR APTT Thrombin Time POC ABG pH 7.289 L ABG pH POC ABG pCO2 POC ABG pO2 355 H ABG pO2 ABG HCO3 ABG O2 Saturation ABG Base Excess ABG Hemoglobin Oxyhemoglobin Sodium Potassium Chloride Carbon Dioxide BUN Creatinine Glucose POC Glucose Lactic Acid 4.10 H* Calcium Magnesium Iron TIBC Direct Bilirubin AST Alkaline Phosphatase Troponin T C-Reactive Protein Total Protein Albumin LDL Cholesterol Direct HDL Cholesterol Vitamin B12 Folate TSH Urine WBC (Auto) 16.0 H Urine Creatinine Urine Total Protein [place] Screen [place] Titer Complement C3 Complement C4 02/01/19 02/01/19 02/01/19 15:15 16:20 16:51 WBC RBC Hgb Hct RDW Plt Count Seg Neuts % (Manual) Lymphocytes % (Manual) Seg Neutrophils # Man Lymphocytes # (Manual) PT INR APTT Thrombin Time POC ABG pH ABG pH POC ABG pCO2 POC ABG pO2 ABG pO2 ABG HCO3 ABG O2 Saturation ABG Base Excess ABG Hemoglobin Oxyhemoglobin Sodium Potassium Chloride Carbon Dioxide BUN Creatinine Glucose POC Glucose 115 H Lactic Acid 4.50 H* Calcium Magnesium Iron TIBC Direct Bilirubin AST Alkaline Phosphatase Troponin T C-Reactive Protein Total Protein Albumin LDL Cholesterol Direct HDL Cholesterol Vitamin B12 Folate TSH Urine WBC (Auto) Urine Creatinine Urine Total Protein [place] Screen [place] Titer Complement C3 36 L Complement C4 02/01/19 02/01/19 02/01/19 16:51 17:03 17:04 WBC RBC Hgb Hct RDW Plt Count Seg Neuts % (Manual) Lymphocytes % (Manual) Seg Neutrophils # Man Lymphocytes # (Manual) PT INR APTT Thrombin Time POC ABG pH ABG pH POC ABG pCO2 POC ABG pO2 ABG pO2 ABG HCO3 ABG O2 Saturation ABG Base Excess ABG Hemoglobin Oxyhemoglobin Sodium Potassium Chloride Carbon Dioxide BUN Creatinine Glucose POC Glucose Lactic Acid 2.80 H* Calcium Magnesium Iron TIBC Direct Bilirubin AST Alkaline Phosphatase Troponin T C-Reactive Protein 32.30 H Total Protein Albumin LDL Cholesterol Direct HDL Cholesterol Vitamin B12 Folate TSH Urine WBC (Auto) Urine Creatinine Urine Total Protein [place] Screen [place] Titer Complement C3 Complement C4 12 L 02/01/19 02/01/19 02/02/19 17:04 19:28 05:16 WBC RBC Hgb Hct RDW Plt Count Seg Neuts % (Manual) Lymphocytes % (Manual) Seg Neutrophils # Man Lymphocytes # (Manual) PT INR APTT Thrombin Time POC ABG pH ABG pH POC ABG pCO2 POC ABG pO2 148 H ABG pO2 ABG HCO3 ABG O2 Saturation ABG Base Excess ABG Hemoglobin Oxyhemoglobin Sodium Potassium Chloride 107.1 H Carbon Dioxide 18 L BUN 52 H Creatinine 3.1 H Glucose 120 H POC Glucose Lactic Acid Calcium 7.4 L Magnesium Iron TIBC Direct Bilirubin AST Alkaline Phosphatase Troponin T C-Reactive Protein Total Protein Albumin LDL Cholesterol Direct HDL Cholesterol Vitamin B12 Folate TSH Urine WBC (Auto) Urine Creatinine Urine Total Protein [place] Screen Positive H CHESTER Titer 1:320 H Complement C3 Complement C4 02/02/19 02/02/19 02/03/19 05:53 05:53 03:30 WBC 14.3 H RBC 5.16 H Hgb 14.9 H Hct 46.2 H D RDW 16.9 H 17.0 H Plt Count 43 L 18 L* Seg Neuts % (Manual) 93.0 H Lymphocytes % (Manual) 2.0 L Seg Neutrophils # Man 13.3 H Lymphocytes # (Manual) 0.3 L PT INR APTT Thrombin Time POC ABG pH ABG pH POC ABG pCO2 POC ABG pO2 ABG pO2 ABG HCO3 ABG O2 Saturation ABG Base Excess ABG Hemoglobin Oxyhemoglobin Sodium Potassium 5.1 H Chloride Carbon Dioxide 21 L BUN 57 H Creatinine 3.3 H Glucose 147 H POC Glucose Lactic Acid Calcium 7.5 L Magnesium Iron TIBC Direct Bilirubin AST 51 H Alkaline Phosphatase Troponin T C-Reactive Protein Total Protein Albumin 1.6 L LDL Cholesterol Direct HDL Cholesterol Vitamin B12 Folate TSH Urine WBC (Auto) Urine Creatinine Urine Total Protein [place] Screen [place] Titer Complement C3 Complement C4 02/03/19 02/03/19 02/03/19 03:30 05:55 14:42 WBC RBC Hgb Hct RDW Plt Count Seg Neuts % (Manual) Lymphocytes % (Manual) Seg Neutrophils # Man Lymphocytes # (Manual) PT INR APTT Thrombin Time POC ABG pH ABG pH POC ABG pCO2 POC ABG pO2 117 H ABG pO2 ABG HCO3 ABG O2 Saturation ABG Base Excess ABG Hemoglobin Oxyhemoglobin Sodium Potassium Chloride Carbon Dioxide BUN 65 H Creatinine 2.7 H Glucose 117 H POC Glucose Lactic Acid Calcium 7.2 L Magnesium Iron TIBC Direct Bilirubin AST Alkaline Phosphatase Troponin T C-Reactive Protein Total Protein Albumin LDL Cholesterol Direct HDL Cholesterol Vitamin B12 1468 H Folate TSH Urine WBC (Auto) Urine Creatinine Urine Total Protein [place] Screen [place] Titer Complement C3 Complement C4 02/03/19 02/03/19 02/03/19 14:42 14:42 14:42 WBC RBC 3.17 L Hgb 9.4 L D Hct 28.3 L D RDW 16.9 H Plt Count 18 L* Seg Neuts % (Manual) Lymphocytes % (Manual) Seg Neutrophils # Man Lymphocytes # (Manual) PT INR APTT Thrombin Time POC ABG pH ABG pH POC ABG pCO2 POC ABG pO2 ABG pO2 ABG HCO3 ABG O2 Saturation ABG Base Excess ABG Hemoglobin Oxyhemoglobin Sodium Potassium Chloride Carbon Dioxide BUN Creatinine Glucose POC Glucose Lactic Acid Calcium Magnesium Iron 11 L TIBC 88 L Direct Bilirubin AST Alkaline Phosphatase Troponin T C-Reactive Protein Total Protein Albumin LDL Cholesterol Direct HDL Cholesterol Vitamin B12 Folate 5.18 L TSH Urine WBC (Auto) Urine Creatinine Urine Total Protein [place] Screen [place] Titer Complement C3 Complement C4 02/03/19 02/03/19 02/04/19 14:42 14:42 03:35 WBC RBC 3.22 L Hgb 9.5 L Hct 28.5 L RDW 16.4 H Plt Count 18 L* Seg Neuts % (Manual) Lymphocytes % (Manual) Seg Neutrophils # Man Lymphocytes # (Manual) PT 15.8 H INR 1.29 H APTT 38.2 H Thrombin Time POC ABG pH ABG pH 7.470 H POC ABG pCO2 POC ABG pO2 ABG pO2 ABG HCO3 28.4 H ABG O2 Saturation ABG Base Excess 4.5 H ABG Hemoglobin 10.1 L Oxyhemoglobin 94.7 L Sodium Potassium Chloride Carbon Dioxide BUN Creatinine Glucose POC Glucose Lactic Acid Calcium Magnesium Iron TIBC Direct Bilirubin AST Alkaline Phosphatase Troponin T C-Reactive Protein Total Protein Albumin LDL Cholesterol Direct HDL Cholesterol Vitamin B12 Folate TSH Urine WBC (Auto) Urine Creatinine Urine Total Protein [place] Screen [place] Titer Complement C3 Complement C4 02/04/19 02/04/19 02/05/19 05:02 05:02 03:50 WBC RBC Hgb Hct RDW 16.5 H Plt Count 20 L Seg Neuts % (Manual) 94.0 H Lymphocytes % (Manual) 2.0 L Seg Neutrophils # Man 9.2 H Lymphocytes # (Manual) 0.2 L PT INR APTT Thrombin Time POC ABG pH ABG pH 7.485 H POC ABG pCO2 POC ABG pO2 ABG pO2 ABG HCO3 27.5 H ABG O2 Saturation ABG Base Excess 3.9 H ABG Hemoglobin 9.1 L Oxyhemoglobin 94.8 L Sodium Potassium Chloride Carbon Dioxide BUN 66 H Creatinine 1.7 H Glucose 127 H POC Glucose Lactic Acid Calcium 7.6 L Magnesium Iron TIBC Direct Bilirubin AST Alkaline Phosphatase Troponin T C-Reactive Protein Total Protein Albumin LDL Cholesterol Direct HDL Cholesterol Vitamin B12 Folate TSH Urine WBC (Auto) Urine Creatinine Urine Total Protein [place] Screen [place] Titer Complement C3 Complement C4 02/05/19 02/05/19 02/05/19 13:02 14:36 20:03 WBC 11.7 H RBC 3.48 L 3.24 L Hgb 10.0 L 9.4 L Hct 29.2 L RDW 16.3 H 16.3 H Plt Count 50 L D 71 L Seg Neuts % (Manual) 95.0 H 95.0 H Lymphocytes % (Manual) 0 L 2.0 L Seg Neutrophils # Man 11.1 H 10.2 H Lymphocytes # (Manual) 0.0 L 0.2 L PT INR APTT Thrombin Time POC ABG pH ABG pH POC ABG pCO2 POC ABG pO2 ABG pO2 ABG HCO3 ABG O2 Saturation ABG Base Excess ABG Hemoglobin Oxyhemoglobin Sodium Potassium Chloride Carbon Dioxide BUN 67 H Creatinine 1.5 H Glucose POC Glucose Lactic Acid Calcium 7.7 L Magnesium Iron TIBC Direct Bilirubin AST Alkaline Phosphatase Troponin T C-Reactive Protein Total Protein Albumin LDL Cholesterol Direct HDL Cholesterol Vitamin B12 Folate TSH Urine WBC (Auto) Urine Creatinine Urine Total Protein [place] Screen [place] Titer Complement C3 Complement C4 02/06/19 02/06/19 02/06/19 05:39 07:35 18:34 WBC RBC Hgb Hct RDW Plt Count Seg Neuts % (Manual) Lymphocytes % (Manual) Seg Neutrophils # Man Lymphocytes # (Manual) PT 16.3 H INR 1.35 H APTT Thrombin Time POC ABG pH ABG pH POC ABG pCO2 POC ABG pO2 ABG pO2 ABG HCO3 ABG O2 Saturation ABG Base Excess ABG Hemoglobin Oxyhemoglobin Sodium Potassium Chloride Carbon Dioxide BUN Creatinine Glucose POC Glucose 107 H 121 H Lactic Acid Calcium Magnesium Iron TIBC Direct Bilirubin AST Alkaline Phosphatase Troponin T C-Reactive Protein Total Protein Albumin LDL Cholesterol Direct HDL Cholesterol Vitamin B12 Folate TSH Urine WBC (Auto) Urine Creatinine Urine Total Protein [place] Screen [place] Titer Complement C3 Complement C4 02/06/19 02/07/19 02/07/19 Unknown 01:07 04:15 WBC RBC Hgb Hct RDW Plt Count Seg Neuts % (Manual) Lymphocytes % (Manual) Seg Neutrophils # Man Lymphocytes # (Manual) PT INR APTT Thrombin Time POC ABG pH ABG pH POC ABG pCO2 POC ABG pO2 ABG pO2 ABG HCO3 ABG O2 Saturation ABG Base Excess ABG Hemoglobin 5.0 L Oxyhemoglobin 94.9 L 94.8 L Sodium 146 H Potassium Chloride Carbon Dioxide BUN 85 H Creatinine 1.8 H Glucose 163 H POC Glucose Lactic Acid Calcium 8.3 L Magnesium Iron TIBC Direct Bilirubin AST Alkaline Phosphatase Troponin T C-Reactive Protein Total Protein Albumin LDL Cholesterol Direct HDL Cholesterol Vitamin B12 Folate TSH Urine WBC (Auto) Urine Creatinine Urine Total Protein [place] Screen [place] Titer Complement C3 Complement C4 02/07/19 02/07/19 02/08/19 08:22 10:58 04:40 WBC RBC Hgb Hct RDW 16.0 H Plt Count 84 L Seg Neuts % (Manual) 97.0 H Lymphocytes % (Manual) 0 L Seg Neutrophils # Man 9.5 H Lymphocytes # (Manual) 0.0 L PT INR APTT Thrombin Time POC ABG pH 7.477 H ABG pH 7.467 H POC ABG pCO2 34.8 L POC ABG pO2 118 H ABG pO2 ABG HCO3 ABG O2 Saturation ABG Base Excess ABG Hemoglobin 8.4 L Oxyhemoglobin Sodium Potassium Chloride Carbon Dioxide BUN Creatinine Glucose POC Glucose Lactic Acid Calcium Magnesium Iron TIBC Direct Bilirubin AST Alkaline Phosphatase Troponin T C-Reactive Protein Total Protein Albumin LDL Cholesterol Direct HDL Cholesterol Vitamin B12 Folate TSH Urine WBC (Auto) Urine Creatinine Urine Total Protein [place] Screen [place] Titer Complement C3 Complement C4 02/09/19 02/09/19 02/09/19 03:17 03:17 04:35 WBC 14.9 H RBC 3.32 L Hgb 9.6 L Hct RDW 15.9 H Plt Count 113 L Seg Neuts % (Manual) 96.0 H Lymphocytes % (Manual) 1.0 L Seg Neutrophils # Man 14.3 H Lymphocytes # (Manual) 0.1 L PT INR APTT Thrombin Time POC ABG pH ABG pH 7.478 H POC ABG pCO2 POC ABG pO2 ABG pO2 94.5 H ABG HCO3 ABG O2 Saturation ABG Base Excess ABG Hemoglobin 6.1 L Oxyhemoglobin Sodium 147 H Potassium Chloride 110.4 H Carbon Dioxide BUN 114 H Creatinine 2.2 H Glucose 270 H POC Glucose Lactic Acid Calcium 8.1 L Magnesium Iron TIBC Direct Bilirubin AST Alkaline Phosphatase Troponin T C-Reactive Protein Total Protein Albumin 1.6 L LDL Cholesterol Direct HDL Cholesterol Vitamin B12 Folate TSH Urine WBC (Auto) Urine Creatinine Urine Total Protein [place] Screen [place] Titer Complement C3 Complement C4 02/09/19 02/09/19 02/10/19 13:35 18:54 05:13 WBC RBC Hgb Hct RDW Plt Count Seg Neuts % (Manual) Lymphocytes % (Manual) Seg Neutrophils # Man Lymphocytes # (Manual) PT INR APTT Thrombin Time POC ABG pH ABG pH 7.478 H POC ABG pCO2 POC ABG pO2 ABG pO2 ABG HCO3 ABG O2 Saturation ABG Base Excess ABG Hemoglobin 8.1 L Oxyhemoglobin 94.9 L Sodium Potassium Chloride Carbon Dioxide BUN Creatinine Glucose POC Glucose Lactic Acid Calcium Magnesium Iron TIBC Direct Bilirubin AST Alkaline Phosphatase Troponin T C-Reactive Protein Total Protein Albumin LDL Cholesterol Direct HDL Cholesterol Vitamin B12 Folate TSH Urine WBC (Auto) 10.0 H Urine Creatinine 92.9 H Urine Total Protein 116 H [place] Screen [place] Titer Complement C3 Complement C4 02/10/19 02/10/19 02/11/19 18:14 23:24 04:10 WBC RBC Hgb Hct RDW Plt Count Seg Neuts % (Manual) Lymphocytes % (Manual) Seg Neutrophils # Man Lymphocytes # (Manual) PT INR APTT Thrombin Time POC ABG pH ABG pH POC ABG pCO2 POC ABG pO2 ABG pO2 69.4 L ABG HCO3 ABG O2 Saturation 94.2 L ABG Base Excess ABG Hemoglobin 11.0 L Oxyhemoglobin 92.1 L Sodium Potassium Chloride Carbon Dioxide BUN Creatinine Glucose POC Glucose 453 H 403 H Lactic Acid Calcium Magnesium Iron TIBC Direct Bilirubin AST Alkaline Phosphatase Troponin T C-Reactive Protein Total Protein Albumin LDL Cholesterol Direct HDL Cholesterol Vitamin B12 Folate TSH Urine WBC (Auto) Urine Creatinine Urine Total Protein [place] Screen [place] Titer Complement C3 Complement C4 02/11/19 02/11/19 02/11/19 04:54 04:54 05:40 WBC 12.5 H RBC 3.18 L Hgb 9.4 L Hct 29.4 L RDW 16.6 H Plt Count Seg Neuts % (Manual) 94.0 H Lymphocytes % (Manual) 4.0 L Seg Neutrophils # Man 11.8 H Lymphocytes # (Manual) 0.5 L PT INR APTT Thrombin Time POC ABG pH ABG pH POC ABG pCO2 POC ABG pO2 ABG pO2 ABG HCO3 ABG O2 Saturation ABG Base Excess ABG Hemoglobin Oxyhemoglobin Sodium 151 H Potassium Chloride 112.6 H Carbon Dioxide BUN 127 H Creatinine 1.8 H Glucose 396 H POC Glucose 410 H Lactic Acid Calcium 8.3 L Magnesium Iron TIBC Direct Bilirubin AST Alkaline Phosphatase 132 H Troponin T C-Reactive Protein Total Protein Albumin 2.1 L LDL Cholesterol Direct HDL Cholesterol Vitamin B12 Folate TSH Urine WBC (Auto) Urine Creatinine Urine Total Protein [place] Screen [place] Titer Complement C3 Complement C4 02/11/19 02/11/19 02/11/19 11:30 17:58 23:18 WBC RBC Hgb Hct RDW Plt Count Seg Neuts % (Manual) Lymphocytes % (Manual) Seg Neutrophils # Man Lymphocytes # (Manual) PT INR APTT Thrombin Time POC ABG pH ABG pH POC ABG pCO2 POC ABG pO2 ABG pO2 ABG HCO3 ABG O2 Saturation ABG Base Excess ABG Hemoglobin Oxyhemoglobin Sodium Potassium Chloride Carbon Dioxide BUN Creatinine Glucose POC Glucose 361 H 414 H 392 H Lactic Acid Calcium Magnesium Iron TIBC Direct Bilirubin AST Alkaline Phosphatase Troponin T C-Reactive Protein Total Protein Albumin LDL Cholesterol Direct HDL Cholesterol Vitamin B12 Folate TSH Urine WBC (Auto) Urine Creatinine Urine Total Protein [place] Screen [place] Titer Complement C3 Complement C4 02/12/19 02/12/19 02/12/19 05:32 05:36 05:36 WBC 11.9 H RBC 3.40 L Hgb 9.9 L Hct RDW 16.4 H Plt Count Seg Neuts % (Manual) 97.0 H Lymphocytes % (Manual) 2.0 L Seg Neutrophils # Man 11.5 H Lymphocytes # (Manual) 0.2 L PT INR APTT Thrombin Time POC ABG pH ABG pH POC ABG pCO2 POC ABG pO2 ABG pO2 ABG HCO3 ABG O2 Saturation ABG Base Excess ABG Hemoglobin Oxyhemoglobin Sodium 146 H Potassium 3.5 L Chloride 110.2 H Carbon Dioxide BUN 118 H Creatinine 1.4 H Glucose 382 H POC Glucose 361 H Lactic Acid Calcium 8.3 L Magnesium Iron TIBC Direct Bilirubin AST Alkaline Phosphatase 137 H Troponin T C-Reactive Protein Total Protein Albumin 2.0 L LDL Cholesterol Direct HDL Cholesterol Vitamin B12 Folate TSH Urine WBC (Auto) Urine Creatinine Urine Total Protein [place] Screen [place] Titer Complement C3 Complement C4 02/12/19 02/12/19 02/12/19 11:51 17:18 21:46 WBC RBC Hgb Hct RDW Plt Count Seg Neuts % (Manual) Lymphocytes % (Manual) Seg Neutrophils # Man Lymphocytes # (Manual) PT INR APTT Thrombin Time POC ABG pH ABG pH POC ABG pCO2 POC ABG pO2 ABG pO2 ABG HCO3 ABG O2 Saturation ABG Base Excess ABG Hemoglobin Oxyhemoglobin Sodium Potassium Chloride Carbon Dioxide BUN Creatinine Glucose POC Glucose 357 H 280 H 222 H Lactic Acid Calcium Magnesium Iron TIBC Direct Bilirubin AST Alkaline Phosphatase Troponin T C-Reactive Protein Total Protein Albumin LDL Cholesterol Direct HDL Cholesterol Vitamin B12 Folate TSH Urine WBC (Auto) Urine Creatinine Urine Total Protein [place] Screen [place] Titer Complement C3 Complement C4 02/12/19 02/13/19 02/13/19 23:58 03:41 03:41 WBC 11.6 H RBC 3.53 L Hgb Hct RDW 15.8 H Plt Count 98 L Seg Neuts % (Manual) 97.0 H Lymphocytes % (Manual) 2.0 L Seg Neutrophils # Man 11.3 H Lymphocytes # (Manual) 0.2 L PT INR APTT Thrombin Time POC ABG pH ABG pH POC ABG pCO2 POC ABG pO2 ABG pO2 ABG HCO3 ABG O2 Saturation ABG Base Excess ABG Hemoglobin Oxyhemoglobin Sodium Potassium 3.4 L Chloride 109.7 H Carbon Dioxide BUN 108 H Creatinine Glucose 182 H POC Glucose 208 H Lactic Acid Calcium Magnesium Iron TIBC Direct Bilirubin AST 45 H Alkaline Phosphatase 150 H Troponin T C-Reactive Protein Total Protein Albumin 1.8 L LDL Cholesterol Direct HDL Cholesterol Vitamin B12 Folate TSH Urine WBC (Auto) Urine Creatinine Urine Total Protein [place] Screen [place] Titer Complement C3 Complement C4 02/13/19 02/13/19 02/13/19 05:40 11:31 18:01 WBC RBC Hgb Hct RDW Plt Count Seg Neuts % (Manual) Lymphocytes % (Manual) Seg Neutrophils # Man Lymphocytes # (Manual) PT INR APTT Thrombin Time POC ABG pH ABG pH POC ABG pCO2 POC ABG pO2 ABG pO2 ABG HCO3 ABG O2 Saturation ABG Base Excess ABG Hemoglobin Oxyhemoglobin Sodium Potassium Chloride Carbon Dioxide BUN Creatinine Glucose POC Glucose 179 H 193 H 151 H Lactic Acid Calcium Magnesium Iron TIBC Direct Bilirubin AST Alkaline Phosphatase Troponin T C-Reactive Protein Total Protein Albumin LDL Cholesterol Direct HDL Cholesterol Vitamin B12 Folate TSH Urine WBC (Auto) Urine Creatinine Urine Total Protein CHE[place] Screen CHESTER Titer Complement C3 Complement C4 02/13/19 02/14/19 02/14/19 23:47 04:03 04:03 WBC RBC Hgb Hct RDW 16.0 H Plt Count Seg Neuts % (Manual) 94.0 H Lymphocytes % (Manual) 2.0 L Seg Neutrophils # Man 8.9 H Lymphocytes # (Manual) 0.2 L PT INR APTT Thrombin Time POC ABG pH ABG pH POC ABG pCO2 POC ABG pO2 ABG pO2 ABG HCO3 ABG O2 Saturation ABG Base Excess ABG Hemoglobin Oxyhemoglobin Sodium Potassium 3.4 L Chloride 108.7 H Carbon Dioxide 21 L BUN 96 H Creatinine Glucose 129 H POC Glucose 144 H Lactic Acid Calcium 8.2 L Magnesium Iron TIBC Direct Bilirubin AST 65 H Alkaline Phosphatase 164 H Troponin T C-Reactive Protein Total Protein Albumin 1.7 L LDL Cholesterol Direct HDL Cholesterol Vitamin B12 Folate TSH Urine WBC (Auto) Urine Creatinine Urine Total Protein [place] Screen [place] Titer Complement C3 Complement C4 02/14/19 02/14/19 02/14/19 04:03 05:10 11:51 WBC RBC Hgb Hct RDW Plt Count Seg Neuts % (Manual) Lymphocytes % (Manual) Seg Neutrophils # Man Lymphocytes # (Manual) PT INR APTT Thrombin Time POC ABG pH ABG pH POC ABG pCO2 POC ABG pO2 ABG pO2 ABG HCO3 ABG O2 Saturation ABG Base Excess ABG Hemoglobin Oxyhemoglobin Sodium Potassium Chloride Carbon Dioxide BUN Creatinine Glucose POC Glucose 145 H 192 H Lactic Acid Calcium Magnesium 1.60 L Iron TIBC Direct Bilirubin AST Alkaline Phosphatase Troponin T C-Reactive Protein Total Protein Albumin LDL Cholesterol Direct HDL Cholesterol Vitamin B12 Folate TSH Urine WBC (Auto) Urine Creatinine Urine Total Protein [place] Screen [place] Titer Complement C3 Complement C4 02/14/19 02/14/19 02/15/19 17:42 23:33 05:33 WBC RBC Hgb Hct RDW 15.9 H Plt Count Seg Neuts % (Manual) 95.0 H Lymphocytes % (Manual) 1.0 L Seg Neutrophils # Man 7.9 H Lymphocytes # (Manual) 0.1 L PT INR APTT Thrombin Time POC ABG pH ABG pH POC ABG pCO2 POC ABG pO2 ABG pO2 ABG HCO3 ABG O2 Saturation ABG Base Excess ABG Hemoglobin Oxyhemoglobin Sodium Potassium Chloride Carbon Dioxide BUN Creatinine Glucose POC Glucose 229 H 204 H Lactic Acid Calcium Magnesium Iron TIBC Direct Bilirubin AST Alkaline Phosphatase Troponin T C-Reactive Protein Total Protein Albumin LDL Cholesterol Direct HDL Cholesterol Vitamin B12 Folate TSH Urine WBC (Auto) Urine Creatinine Urine Total Protein [place] Screen [place] Titer Complement C3 Complement C4 02/15/19 02/15/19 02/15/19 05:33 05:41 12:30 WBC RBC Hgb Hct RDW Plt Count Seg Neuts % (Manual) Lymphocytes % (Manual) Seg Neutrophils # Man Lymphocytes # (Manual) PT INR APTT Thrombin Time POC ABG pH ABG pH POC ABG pCO2 POC ABG pO2 ABG pO2 ABG HCO3 ABG O2 Saturation ABG Base Excess ABG Hemoglobin Oxyhemoglobin Sodium Potassium Chloride 108.2 H Carbon Dioxide BUN 91 H Creatinine Glucose 197 H POC Glucose 209 H 168 H Lactic Acid Calcium 8.2 L Magnesium Iron TIBC Direct Bilirubin AST 61 H Alkaline Phosphatase 215 H Troponin T C-Reactive Protein Total Protein Albumin 1.9 L LDL Cholesterol Direct HDL Cholesterol Vitamin B12 Folate TSH Urine WBC (Auto) Urine Creatinine Urine Total Protein [place] Screen [place] Titer Complement C3 Complement C4 02/15/19 02/15/19 02/16/19 18:17 23:53 04:58 WBC RBC Hgb Hct RDW 15.7 H Plt Count Seg Neuts % (Manual) 93.0 H Lymphocytes % (Manual) 5.0 L Seg Neutrophils # Man Lymphocytes # (Manual) 0.4 L PT INR APTT Thrombin Time POC ABG pH ABG pH POC ABG pCO2 POC ABG pO2 ABG pO2 ABG HCO3 ABG O2 Saturation ABG Base Excess ABG Hemoglobin Oxyhemoglobin Sodium Potassium Chloride Carbon Dioxide BUN Creatinine Glucose POC Glucose 161 H 160 H Lactic Acid Calcium Magnesium Iron TIBC Direct Bilirubin AST Alkaline Phosphatase Troponin T C-Reactive Protein Total Protein Albumin LDL Cholesterol Direct HDL Cholesterol Vitamin B12 Folate TSH Urine WBC (Auto) Urine Creatinine Urine Total Protein [place] Screen [place] Titer Complement C3 Complement C4 02/16/19 02/16/19 02/16/19 04:58 12:27 17:08 WBC RBC Hgb Hct RDW Plt Count Seg Neuts % (Manual) Lymphocytes % (Manual) Seg Neutrophils # Man Lymphocytes # (Manual) PT INR APTT Thrombin Time POC ABG pH ABG pH POC ABG pCO2 POC ABG pO2 ABG pO2 ABG HCO3 ABG O2 Saturation ABG Base Excess ABG Hemoglobin Oxyhemoglobin Sodium Potassium Chloride 108.3 H Carbon Dioxide BUN 90 H Creatinine Glucose 126 H POC Glucose 125 H 180 H Lactic Acid Calcium 8.1 L Magnesium Iron TIBC Direct Bilirubin AST 52 H Alkaline Phosphatase 188 H Troponin T C-Reactive Protein Total Protein Albumin 2.0 L LDL Cholesterol Direct HDL Cholesterol Vitamin B12 Folate TSH Urine WBC (Auto) Urine Creatinine Urine Total Protein [place] Screen [place] Titer Complement C3 Complement C4 02/16/19 02/16/19 02/17/19 21:52 23:51 04:43 WBC RBC 3.48 L Hgb Hct RDW 15.8 H Plt Count Seg Neuts % (Manual) 87.0 H Lymphocytes % (Manual) 6.0 L Seg Neutrophils # Man Lymphocytes # (Manual) 0.5 L PT INR APTT Thrombin Time POC ABG pH ABG pH POC ABG pCO2 POC ABG pO2 ABG pO2 ABG HCO3 ABG O2 Saturation ABG Base Excess ABG Hemoglobin Oxyhemoglobin Sodium Potassium Chloride Carbon Dioxide BUN Creatinine Glucose POC Glucose 177 H 161 H Lactic Acid Calcium Magnesium Iron TIBC Direct Bilirubin AST Alkaline Phosphatase Troponin T C-Reactive Protein Total Protein Albumin LDL Cholesterol Direct HDL Cholesterol Vitamin B12 Folate TSH Urine WBC (Auto) Urine Creatinine Urine Total Protein [place] Screen [place] Titer Complement C3 Complement C4 02/17/19 02/17/19 02/17/19 04:43 05:05 18:16 WBC RBC Hgb Hct RDW Plt Count Seg Neuts % (Manual) Lymphocytes % (Manual) Seg Neutrophils # Man Lymphocytes # (Manual) PT INR APTT Thrombin Time POC ABG pH ABG pH POC ABG pCO2 POC ABG pO2 ABG pO2 ABG HCO3 ABG O2 Saturation ABG Base Excess ABG Hemoglobin Oxyhemoglobin Sodium Potassium Chloride 110.2 H Carbon Dioxide 21 L BUN 90 H Creatinine Glucose 164 H POC Glucose 166 H 123 H Lactic Acid Calcium 8.2 L Magnesium Iron TIBC Direct Bilirubin AST 59 H Alkaline Phosphatase 224 H Troponin T C-Reactive Protein Total Protein 6.2 L Albumin 1.9 L LDL Cholesterol Direct HDL Cholesterol Vitamin B12 Folate TSH Urine WBC (Auto) Urine Creatinine Urine Total Protein [place] Screen [place] Titer Complement C3 Complement C4 02/17/19 02/18/1919 22:15 00:14 05:23 WBC RBC Hgb Hct RDW Plt Count Seg Neuts % (Manual) Lymphocytes % (Manual) Seg Neutrophils # Man Lymphocytes # (Manual) PT INR APTT Thrombin Time POC ABG pH ABG pH POC ABG pCO2 POC ABG pO2 ABG pO2 ABG HCO3 ABG O2 Saturation ABG Base Excess ABG Hemoglobin Oxyhemoglobin Sodium Potassium Chloride Carbon Dioxide BUN Creatinine Glucose POC Glucose 135 H 142 H 175 H Lactic Acid Calcium Magnesium Iron TIBC Direct Bilirubin AST Alkaline Phosphatase Troponin T C-Reactive Protein Total Protein Albumin LDL Cholesterol Direct HDL Cholesterol Vitamin B12 Folate TSH Urine WBC (Auto) Urine Creatinine Urine Total Protein [place] Screen [place] Titer Complement C3 Complement C4 02/18/19 02/18/19 02/18/19 11:20 17:14 22:03 WBC RBC Hgb Hct RDW Plt Count Seg Neuts % (Manual) Lymphocytes % (Manual) Seg Neutrophils # Man Lymphocytes # (Manual) PT INR APTT Thrombin Time POC ABG pH ABG pH POC ABG pCO2 POC ABG pO2 ABG pO2 ABG HCO3 ABG O2 Saturation ABG Base Excess ABG Hemoglobin Oxyhemoglobin Sodium Potassium Chloride Carbon Dioxide BUN Creatinine Glucose POC Glucose 139 H 139 H 150 H Lactic Acid Calcium Magnesium Iron TIBC Direct Bilirubin AST Alkaline Phosphatase Troponin T C-Reactive Protein Total Protein Albumin LDL Cholesterol Direct HDL Cholesterol Vitamin B12 Folate TSH Urine WBC (Auto) Urine Creatinine Urine Total Protein [place] Screen [place] Titer Complement C3 Complement C4 02/18/19 02/19/19 02/19/19 23:53 05:15 11:19 WBC RBC Hgb Hct RDW Plt Count Seg Neuts % (Manual) Lymphocytes % (Manual) Seg Neutrophils # Man Lymphocytes # (Manual) PT INR APTT Thrombin Time POC ABG pH ABG pH POC ABG pCO2 POC ABG pO2 ABG pO2 ABG HCO3 ABG O2 Saturation ABG Base Excess ABG Hemoglobin Oxyhemoglobin Sodium Potassium Chloride Carbon Dioxide BUN Creatinine Glucose POC Glucose 140 H 161 H 146 H Lactic Acid Calcium Magnesium Iron TIBC Direct Bilirubin AST Alkaline Phosphatase Troponin T C-Reactive Protein Total Protein Albumin LDL Cholesterol Direct HDL Cholesterol Vitamin B12 Folate TSH Urine WBC (Auto) Urine Creatinine Urine Total Protein [place] Screen [place] Titer Complement C3 Complement C4 02/19/19 02/20/19 02/20/19 17:34 01:11 05:40 WBC RBC Hgb Hct RDW Plt Count Seg Neuts % (Manual) Lymphocytes % (Manual) Seg Neutrophils # Man Lymphocytes # (Manual) PT INR APTT Thrombin Time POC ABG pH ABG pH POC ABG pCO2 POC ABG pO2 ABG pO2 ABG HCO3 ABG O2 Saturation ABG Base Excess ABG Hemoglobin Oxyhemoglobin Sodium Potassium Chloride Carbon Dioxide BUN Creatinine Glucose POC Glucose 133 H 137 H 150 H Lactic Acid Calcium Magnesium Iron TIBC Direct Bilirubin AST Alkaline Phosphatase Troponin T C-Reactive Protein Total Protein Albumin LDL Cholesterol Direct HDL Cholesterol Vitamin B12 Folate TSH Urine WBC (Auto) Urine Creatinine Urine Total Protein [place] Screen [place] Titer Complement C3 Complement C4 02/20/19 02/20/19 02/20/19 07:05 07:05 11:27 WBC RBC 3.34 L Hgb 10.0 L Hct RDW 16.4 H Plt Count Seg Neuts % (Manual) 87.0 H Lymphocytes % (Manual) 4.0 L Seg Neutrophils # Man Lymphocytes # (Manual) 0.3 L PT INR APTT Thrombin Time POC ABG pH ABG pH POC ABG pCO2 POC ABG pO2 ABG pO2 ABG HCO3 ABG O2 Saturation ABG Base Excess ABG Hemoglobin Oxyhemoglobin Sodium Potassium Chloride 112.1 H Carbon Dioxide BUN 84 H Creatinine Glucose 150 H POC Glucose 141 H Lactic Acid Calcium Magnesium Iron TIBC Direct Bilirubin AST Alkaline Phosphatase Troponin T C-Reactive Protein Total Protein Albumin LDL Cholesterol Direct HDL Cholesterol Vitamin B12 Folate TSH Urine WBC (Auto) Urine Creatinine Urine Total Protein [place] Screen [place] Titer Complement C3 Complement C4 02/20/19 02/20/19 02/20/19 18:19 21:57 23:02 WBC RBC Hgb Hct RDW Plt Count Seg Neuts % (Manual) Lymphocytes % (Manual) Seg Neutrophils # Man Lymphocytes # (Manual) PT INR APTT Thrombin Time POC ABG pH ABG pH POC ABG pCO2 POC ABG pO2 ABG pO2 ABG HCO3 ABG O2 Saturation ABG Base Excess ABG Hemoglobin Oxyhemoglobin Sodium Potassium Chloride Carbon Dioxide BUN Creatinine Glucose POC Glucose 170 H 150 H 137 H Lactic Acid Calcium Magnesium Iron TIBC Direct Bilirubin AST Alkaline Phosphatase Troponin T C-Reactive Protein Total Protein Albumin LDL Cholesterol Direct HDL Cholesterol Vitamin B12 Folate TSH Urine WBC (Auto) Urine Creatinine Urine Total Protein [place] Screen [place] Titer Complement C3 Complement C4 02/21/19 02/21/19 02/21/19 05:44 07:10 07:10 WBC RBC 3.19 L Hgb 9.4 L Hct 29.2 L RDW 16.2 H Plt Count Seg Neuts % (Manual) 91.0 H Lymphocytes % (Manual) 7.0 L Seg Neutrophils # Man Lymphocytes # (Manual) 0.5 L PT INR APTT Thrombin Time POC ABG pH ABG pH POC ABG pCO2 POC ABG pO2 ABG pO2 ABG HCO3 ABG O2 Saturation ABG Base Excess ABG Hemoglobin Oxyhemoglobin Sodium Potassium Chloride 112.4 H Carbon Dioxide 21 L BUN 86 H Creatinine Glucose 126 H POC Glucose 129 H Lactic Acid Calcium 8.1 L Magnesium Iron TIBC Direct Bilirubin AST 56 H Alkaline Phosphatase 150 H Troponin T C-Reactive Protein Total Protein 5.7 L Albumin 1.9 L LDL Cholesterol Direct HDL Cholesterol Vitamin B12 Folate TSH Urine WBC (Auto) Urine Creatinine Urine Total Protein [place] Screen [place] Titer Complement C3 Complement C4 02/21/19 02/21/19 02/22/19 11:28 16:50 00:54 WBC RBC Hgb Hct RDW Plt Count Seg Neuts % (Manual) Lymphocytes % (Manual) Seg Neutrophils # Man Lymphocytes # (Manual) PT INR APTT Thrombin Time POC ABG pH ABG pH POC ABG pCO2 POC ABG pO2 ABG pO2 ABG HCO3 ABG O2 Saturation ABG Base Excess ABG Hemoglobin Oxyhemoglobin Sodium Potassium Chloride Carbon Dioxide BUN Creatinine Glucose POC Glucose 114 H 111 H 51 L Lactic Acid Calcium Magnesium Iron TIBC Direct Bilirubin AST Alkaline Phosphatase Troponin T C-Reactive Protein Total Protein Albumin LDL Cholesterol Direct HDL Cholesterol Vitamin B12 Folate TSH Urine WBC (Auto) Urine Creatinine Urine Total Protein [place] Screen [place] Titer Complement C3 Complement C4 02/22/19 02/22/19 02/22/19 00:59 04:13 04:13 WBC RBC 3.35 L Hgb 9.9 L Hct RDW 16.8 H Plt Count Seg Neuts % (Manual) 97.0 H Lymphocytes % (Manual) 1.0 L Seg Neutrophils # Man 9.7 H Lymphocytes # (Manual) 0.1 L PT INR APTT Thrombin Time POC ABG pH ABG pH POC ABG pCO2 POC ABG pO2 ABG pO2 ABG HCO3 ABG O2 Saturation ABG Base Excess ABG Hemoglobin Oxyhemoglobin Sodium Potassium Chloride 110.8 H Carbon Dioxide BUN 83 H Creatinine Glucose 157 H POC Glucose 144 H Lactic Acid Calcium Magnesium Iron TIBC Direct Bilirubin AST Alkaline Phosphatase Troponin T C-Reactive Protein Total Protein Albumin LDL Cholesterol Direct HDL Cholesterol Vitamin B12 Folate TSH Urine WBC (Auto) Urine Creatinine Urine Total Protein [place] Screen [place] Titer Complement C3 Complement C4 02/22/19 02/22/19 02/22/19 05:01 11:49 17:33 WBC RBC Hgb Hct RDW Plt Count Seg Neuts % (Manual) Lymphocytes % (Manual) Seg Neutrophils # Man Lymphocytes # (Manual) PT INR APTT Thrombin Time POC ABG pH ABG pH POC ABG pCO2 POC ABG pO2 ABG pO2 ABG HCO3 ABG O2 Saturation ABG Base Excess ABG Hemoglobin Oxyhemoglobin Sodium Potassium Chloride Carbon Dioxide BUN Creatinine Glucose POC Glucose 135 H 148 H 123 H Lactic Acid Calcium Magnesium Iron TIBC Direct Bilirubin AST Alkaline Phosphatase Troponin T C-Reactive Protein Total Protein Albumin LDL Cholesterol Direct HDL Cholesterol Vitamin B12 Folate TSH Urine WBC (Auto) Urine Creatinine Urine Total Protein [place] Screen [place] Titer Complement C3 Complement C4 02/22/19 02/22/19 02/23/19 21:06 23:52 05:19 WBC RBC Hgb Hct RDW Plt Count Seg Neuts % (Manual) Lymphocytes % (Manual) Seg Neutrophils # Man Lymphocytes # (Manual) PT INR APTT Thrombin Time POC ABG pH ABG pH POC ABG pCO2 POC ABG pO2 ABG pO2 ABG HCO3 ABG O2 Saturation ABG Base Excess ABG Hemoglobin Oxyhemoglobin Sodium Potassium Chloride Carbon Dioxide BUN Creatinine Glucose POC Glucose 133 H 155 H 136 H Lactic Acid Calcium Magnesium Iron TIBC Direct Bilirubin AST Alkaline Phosphatase Troponin T C-Reactive Protein Total Protein Albumin LDL Cholesterol Direct HDL Cholesterol Vitamin B12 Folate TSH Urine WBC (Auto) Urine Creatinine Urine Total Protein [place] Screen [place] Titer Complement C3 Complement C4
[2019-02-23] MEDS: FOLIC ACID 1 MG TAB PO SCH (10:08)
[2019-02-23] MEDS: LEVOTHYROXINE 125 MCG TAB PO SCH (10:08)
[2019-02-23] MEDS: MULTIVITAMINS 5 ML ORAL LIQUID PO SCH (10:08)
[2019-02-23] MEDS: LANSOPRAZOLE 30 MG SOLUTAB FEEDTUBE SCH ×2 (10:08→21:34)
[2019-02-23] MEDS: predniSONE 20 MG TAB PO SCH (10:08)
--- NOTE | 2019-02-23 11:57 | Progress Note ---
Assessment and Plan Assessment and plan: 53 year old woman who was brought in by her family for unsteady gait, fatigue, and withdrawn behavior. I finally noticed difficult to it fine motor skills throughout that night she was having difficulty expressing herself. she was at a restaurant family I will continue to point to the menu. She became more disoriented and less responsive prompting family to bring her to the emergency room - Acute respiratory failure on MV > 96 hours Continue mechanical ventilator, plan for transfer to LTAC for slow weaning, Status post trach and PEG 02/21 severe Sepsis Strep pneumoniae bacteremia Right neck cellulitis vs neck LAD PNA meningitis TERRENCE neg for vegatations * Has completed antibiotics. steno in sputum likely colonizer Hyperglycemia, type 2 DM cont ssi, amd lantus Thrombocytopenia likely due to sepsis or autoimmune phenomenon, hematology input appreciated, hiv-negative, fibrinogen level is not low, PT PTT is normal. 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 fib. Will need anticoagulation when bleeding risk is reduced -Atrial fibrillation with RVR Management per Cardiology History of lupus? families is unclear on this medical history, but know that she has some form of autoimmune disease Compliments are reduced, CHESTER is positive, anti ds dna pending, highly suspect lupus cont steroids Acute metabolic encephalopathy Likely due to sepsis, eeg neg for seizure, neuro input appreciated Acute respiratory failure on MV > 96 hours cont vent per pulmonology Type 2 ID - cardiology input appreciated, rx the underlying cause Hypothyroidism TSH elevated, synthroid dose increased -repeat TFTs in 4-6 wks Hypokalemia, was supplemented Prognosis is guarded The high probability of a clinically significant, sudden or life threatening deterioration of the [CV, Neurology, renal] system(s) required my full and direct attention, intervention and personal management. The aggregate critical care time was [45] minutes. This time is in addition to time spent performing reported procedures but includes the following: [x] Data Review and interpretation [x] Patient assessment and monitoring of vital signs [x] Documentation [x] Medication orders and management History Interval history: no fever, no vomiting, no agitation -no seizures or vomiting Hospitalist Physical - Physical exam Narrative exam: General.: no distress, nontoxic HEENT: Moist mucous membranes, extraocular muscles intact, no lymphadenopathy Neck: supple, trache noted Cardiac: S1-S2 heard Lungs: clear to auscultation bilaterally Abdomen: soft , nontender, nondistended, bowel sounds positive, PEG in place Extremities: no edema clubbing or cyanosis Skin: no rash or lesions Neurologic: left hemiparesis, opens eyes, obeys commands Psych: calm, and cooperative - Constitutional Vitals: Temp Pulse Resp BP Pulse Ox 99.1 F 91 H 15 161/84 100 02/23/19 04:00 02/23/19 10:30 02/23/19 10:30 02/23/19 10:30 02/23/19 10:30 General appearance: Present: mild distress, well-nourished, other (Intubated) Results - Labs CBC & Chem 7: 02/24/19 10:52 02/24/19 10:52 Labs: Laboratory Last Values WBC 10.0 K/mm3 (4.5-11.0) 02/22/19 04:13 RBC 3.35 M/mm3 (3.65-5.03) L 02/22/19 04:13 Hgb 9.9 gm/dl (10.1-14.3) L 02/22/19 04:13 Hct 30.8 % (30.3-42.9) 02/22/19 04:13 MCV 92 fl (79-97) 02/22/19 04:13 MCH 30 pg (28-32) 02/22/19 04:13 MCHC 32 % (30-34) 02/22/19 04:13 RDW 16.8 % (13.2-15.2) H 02/22/19 04:13 Plt Count 167 K/mm3 (140-440) 02/22/19 04:13 Lymph % (Auto) Buttonhole Maker Hand 02/05/19 13:02 [place] % (Auto) Buttonhole Maker Hand 02/05/19 13:02 Eos % (Auto) Buttonhole Maker Hand 02/05/19 13:02 Baso % (Auto) Buttonhole Maker Hand 02/05/19 13:02 Lymph # Buttonhole Maker Hand 02/05/19 13:02 [place] # Buttonhole Maker Hand 02/05/19 13:02 Eos # Buttonhole Maker Hand 02/05/19 13:02 Baso # Buttonhole Maker Hand 02/05/19 13:02 Add Manual Diff Complete 02/22/19 04:13 Total Counted 100 02/22/19 04:13 Seg Neutrophils % Buttonhole Maker Hand 02/22/19 04:13 Seg Neuts % (Manual) 97.0 % (40.0-70.0) H 02/22/19 04:13 1.0 % 02/22/19 04:13 1.0 % (13.4-35.0) L 02/22/19 04:13 Reactive Lymphs % (Man) 0 % 02/22/19 04:13 0 % (0.0-7.3) 02/22/19 04:13 0 % (0.0-4.3) 02/22/19 04:13 0 % (0.0-1.8) 02/22/19 04:13 1.0 % 02/22/19 04:13 0 % 02/22/19 04:13 0 % 02/22/19 04:13 0 % 02/22/19 04:13 Nucleated RBC % Not Reportable 02/22/19 04:13 Seg Neutrophils # Buttonhole Maker Hand 02/05/19 13:02 Seg Neutrophils # Man 9.7 K/mm3 (1.8-7.7) H 02/22/19 04:13 Band Neutrophils # 0.1 K/mm3 02/22/19 04:13 0.1 K/mm3 (1.2-5.4) L 02/22/19 04:13 Abs React Lymphs (Man) 0.0 K/mm3 02/22/19 04:13 0.0 K/mm3 (0.0-0.8) 02/22/19 04:13 0.0 K/mm3 (0.0-0.4) 02/22/19 04:13 0.0 K/mm3 (0.0-0.1) 02/22/19 04:13 0.1 K/mm3 02/22/19 04:13 0.0 K/mm3 02/22/19 04:13 0.0 K/mm3 02/22/19 04:13 Blast Cells # 0.0 K/mm3 02/22/19 04:13 WBC Morphology Not Reportable 02/22/19 04:13 Hypersegmented Neuts Not Reportable 02/22/19 04:13 Hyposegmented Neuts Not Reportable 02/22/19 04:13 Hypogranular Neuts Not Reportable 02/22/19 04:13 Cancelled 02/01/19 07:16 Not Reportable 02/22/19 04:13 Not Reportable 02/22/19 04:13 Not Reportable 02/22/19 04:13 Not Reportable 02/22/19 04:13 Not Reportable 02/22/19 04:13 Not Reportable 02/22/19 04:13 Consistent w auto 02/22/19 04:13 Not Reportable 02/22/19 04:13 Plt Clumps, EDTA Not Reportable 02/22/19 04:13 Few 02/22/19 04:13 Not Reportable 02/22/19 04:13 Not Reportable 02/22/19 04:13 Plt Morphology Comment Not Reportable 02/22/19 04:13 RBC Morphology Not Reportable 02/22/19 04:13 Dimorphic RBCs Not Reportable 02/22/19 04:13 Not Reportable 02/22/19 04:13 Not Reportable 02/22/19 04:13 Not Reportable 02/22/19 04:13 Cancelled 02/01/19 07:16 Not Reportable 02/22/19 04:13 Not Reportable 02/22/19 04:13 Not Reportable 02/22/19 04:13 Not Reportable 02/22/19 04:13 Not Reportable 02/22/19 04:13 Not Reportable 02/22/19 04:13 Rare 02/22/19 04:13 Not Reportable 02/22/19 04:13 Not Reportable 02/22/19 04:13 Cancelled 02/01/19 07:16 Not Reportable 02/22/19 04:13 Not Reportable 02/22/19 04:13 Not Reportable 02/22/19 04:13 Not Reportable 02/22/19 04:13 Not Reportable 02/22/19 04:13 Not Reportable 02/22/19 04:13 Not Reportable 02/22/19 04:13 Acanthocytes (Spur) Not Reportable 02/22/19 04:13 Rouleaux Not Reportable 02/22/19 04:13 Not Reportable 02/22/19 04:13 1+ 02/22/19 04:13 Not Reportable 02/22/19 04:13 ESR 76 mm/Hr (0-20) 02/01/19 16:51 Not Reportable 02/22/19 04:13 Hem Pathologist Commnt No 02/22/19 04:13 PT 16.3 Sec. (12.2-14.9) H 02/06/19 07:35 INR 1.35 (0.87-1.13) H 02/06/19 07:35 APTT 33.1 Sec. (24.2-36.6) 02/06/19 07:35 20.0 Sec. (15.1-19.6) H 02/01/19 07:16 479 mg/dl (211-480) 02/03/19 14:42 POC ABG pH 7.418 (7.35-7.45) 02/12/19 05:36 ABG pH 7.440 pH Units (7.350-7.450) 02/11/19 04:10 POC ABG pCO2 36.9 (35-45) 02/12/19 05:36 ABG pCO2 37.4 mm Hg 02/11/19 04:10 POC ABG pO2 92 (80-105) 02/12/19 05:36 ABG pO2 69.4 mm Hg (80.0-90.0) L 02/11/19 04:10 POC ABG HCO3 23.8 (22-26 mml/L) 02/12/19 05:36 ABG HCO3 24.8 mmol/L (20.0-26.0) 02/11/19 04:10 POC ABG Total CO2 25 (23-27mmol/L) 02/12/19 05:36 POC ABG O2 Sat 97 02/12/19 05:36 ABG O2 Saturation 94.2 % (95.0-99.0) L 02/11/19 04:10 ABG O2 Content 14.3 (0.0-44) 02/11/19 04:10 POC ABG Base Excess -1 ((-2) - (+3)mmol/L) 02/12/19 05:36 ABG Base Excess 0.8 mmol/L (-2.0-3.0) 02/11/19 04:10 ABG Hemoglobin 11.0 gm/dl (12.0-16.0) L 02/11/19 04:10 ABG Carboxyhemoglobin 1.5 % (0.0-5.0) 02/11/19 04:10 ABG Methemoglobin 0.7 % (0.0-1.5) 02/11/19 04:10 92.1 % (95.0-99.0) L 02/11/19 04:10 25 % 02/12/19 05:36 Sodium 145 mmol/L (137-145) 02/22/19 04:13 Potassium 4.5 mmol/L (3.6-5.0) 02/22/19 04:13 Chloride 110.8 mmol/L (98-107) H 02/22/19 04:13 Carbon Dioxide 23 mmol/L (22-30) 02/22/19 04:13 16 mmol/L 02/22/19 04:13 BUN 83 mg/dL (7-17) H 02/22/19 04:13 0.9 mg/dL (0.7-1.2) 02/22/19 04:13 Estimated GFR > 60 ml/min 02/22/19 04:13 92 % 02/22/19 04:13 Glucose 157 mg/dL (65-100) H 02/22/19 04:13 POC Glucose 136 (70-105) H 02/23/19 05:19 Lactic Acid 1.40 mmol/L (0.7-2.0) 02/01/19 20:57 Calcium 8.4 mg/dL (8.4-10.2) 02/22/19 04:13 Phosphorus 3.20 mg/dL (2.5-4.5) 02/20/19 07:05 Magnesium 1.70 mg/dL (1.7-2.3) 02/20/19 07:05 Iron 11 ug/dL (37-170) L 02/03/19 14:42 TIBC 88 mcg/dL (250-450) L 02/03/19 14:42 332.9 ng/mL (13.0-400.0) 02/03/19 14:42 0.30 mg/dL (0.1-1.2) 02/21/19 07:10 0.7 mg/dL (0-0.2) H 02/01/19 07:29 0.5 mg/dL 02/01/19 07:29 AST 56 units/L (5-40) H 02/21/19 07:10 ALT 29 units/L (7-56) 02/21/19 07:10 150 units/L (35-129) H 02/21/19 07:10 0.181 ng/mL (0.00-0.029) H* 02/01/19 07:16 32.30 mg/dL (0.00-1.30) H 02/01/19 17:04 5.7 g/dL (6.3-8.2) L 02/21/19 07:10 1.9 g/dL (3.9-5) L 02/21/19 07:10 0.5 % 02/21/19 07:10 Triglycerides 95 mg/dL (2-149) 02/01/19 07:16 Cholesterol 75 mg/dL (50-199) 02/01/19 07:16 34 mg/dL (50-130) L 02/01/19 07:16 20 mg/dL (40-59) L 02/01/19 07:16 3.75 % 02/01/19 07:16 Vitamin B12 1468 pg/mL (211-911) H 02/03/19 14:42 5.18 ng/mL (7.3-26.0) L 02/03/19 14:42 TSH 8.470 mlU/mL (0.270-4.200) H 02/01/19 07:43 Free T4 1.08 ng/dL (0.76-1.46) 02/01/19 07:43 Sara (Yellow) 02/01/19 09:45 Cloudy (Clear) 02/01/19 09:45 5.0 (5.0-7.0) 02/01/19 09:45 Ur Specific [place] 1.019 (1.003-1.030) 02/01/19 09:45 >500 mg/dL (Negative) 02/01/19 09:45 Neg mg/dL (Negative) 02/01/19 09:45 Neg mg/dL (Negative) 02/01/19 09:45 Mod (Negative) 02/01/19 09:45 Neg (Negative) 02/01/19 09:45 Neg (Negative) 02/01/19 09:45 < 2.0 mg/dL (<2.0) 02/01/19 09:45 Ur Leukocyte Esterase Neg (Negative) 02/01/19 09:45 10.0 /HPF (0.0-6.0) H 02/09/19 13:35 10.0 /HPF (0.0-6.0) 02/09/19 13:35 U Epithel Cells (Auto) 3.0 /HPF (0-13.0) 02/09/19 13:35 Amorphous Crystals 1+ 02/01/19 09:45 Few /HPF 02/09/19 13:35 92.9 mg/dL (0.1-20.0) H 02/09/19 18:54 Protein/Creatinin Ratio 1.25 02/09/19 18:54 116 mg/dL (5-11.8) H 02/09/19 18:54 Turbid 02/05/19 14:10 Colorless 02/05/19 14:10 1250 /mm3 (1-10) 02/05/19 14:10 30 /mm3 (0-0) 02/05/19 14:10 CSF Seg Neutrophils 30.0 % (0-6) 02/05/19 14:10 40.0 % (40-80) 02/05/19 14:10 CSF Reactive Lymphs 0 % 02/05/19 14:10 30.0 % (15-45) 02/05/19 14:10 0 % 02/05/19 14:10 0 % 02/05/19 14:10 C 02/05/19 14:10 38 mg/dL 02/05/19 14:10 140 mg/dL 02/05/19 14:10 Random Vancomycin 9.8 ug/mL (0-40.0) 02/03/19 03:30 CHESTER Screen Positive (Negative) H 02/01/19 17:04 CHESTER Titer 1:320 (Negative) H 02/01/19 17:04 CHESTER Pattern Speckled 02/01/19 17:04 Proteinase 3 (PR3) Ab <1.0 AI (<1.0) 02/01/19 19:28 Myeloperoxidase Ab <1.0 AI (<1.0) 02/01/19 19:28 Double Strand DNA Ab 1 IU/mL (<=4) 02/11/19 04:54 36 mg/dL (83-193) L 02/01/19 16:51 12 mg/dL (15-57) L 02/01/19 16:51 RPR Nonreactive (Nonreactive) 02/02/19 15:45 Hepatitis A IgM Ab Non-reactive (NonReactive) 02/02/19 19:29 Hep Bs Antigen Non-reactive (Negative) 02/02/19 19:29 Hep B Core IgM Ab Non-reactive (NonReactive) 02/02/19 19:29 Non-reactive (NonReactive) 02/02/19 19:29 HIV 1&2 Antibody Rapid Non react (Non React) 02/02/19 15:46 Non react (Non React) 02/02/19 15:46 Flexitest 1 02/02/19 13:02 Blood Type B POSITIVE 02/05/19 13:02 Active Medications - Current Medications Current Medications: Generic Name Dose Route Start Last Admin Trade Name Freq PRN Reason Stop Dose Admin Acetaminophen 650 mg 02/01/19 10:47 02/22/19 21:02 Tylenol PO 650 mg Q4H PRN Administration Pain MILD(1-3)/Fever >100.5/VALENZUELA Albuterol 2.5 mg 02/01/19 10:47 Proventil IH Q4HRT PRN Shortness Of Breath Albuterol/Ipratropium 1 ampul 02/01/19 12:00 02/23/19 09:32 Duoneb *Not For Prn Use* IH 1 ampul Q6HRT AMOL Administration Lipase/Protease/Amylase 1 each 02/22/19 08:27 Pancreazchris Hammond 10,500 Unit FEEDTUBE PRN PRN For Clogged Feeding Tube Diltiazem HCl 60 mg 02/13/19 12:00 02/23/19 05:22 Cardizem PO 60 mg Q6H AMOL Administration Fentanyl 50 mcg 02/19/19 16:20 Sublimaze IV ONCE PRN Pain , Severe (7-10) Folic Acid 1 mg 02/06/19 10:00 02/23/19 10:08 Folvite PO 1 mg QDAY AMOL Administration Hydralazine HCl 10 mg 02/13/19 22:15 02/21/19 18:01 Apresoline IV 10 mg Q6H PRN Administration Hypertension Hydrophilic Ointment 1 applic 02/01/19 11:09 02/19/19 21:54 Vaseline Lip Therapy TP 1 applic Q2HR PRN Administration Dry Lips Insulin Glargine 15 units 02/22/19 22:00 02/22/19 22:12 Lantus SUB-Q 15 units QHS AMOL Administration Insulin Human Regular 0 units 02/10/19 19:00 02/23/19 05:20 Humulin R SUB-Q Not Given Q6HR [facility] Protocol Lansoprazole 30 mg 02/23/19 10:00 02/23/19 10:08 Prevacid Solutab FEEDTUBE 30 mg BID AMOL Administration Levothyroxine Sodium 125 mcg 02/07/19 10:00 02/23/19 10:08 Synthroid PO 125 mcg QAM AMOL Administration Multi-Ingred Cream/Lotion/Oil/Oint 1 applic 02/01/19 11:09 02/08/19 21:18 Artificial Tears Ophth Oint OU 1 applic Q4HR PRN Administration Dry Eye(s) Multivitamins 5 ml 02/06/19 10:00 02/23/19 10:08 Centrum Liq PO 5 ml QDAY AMOL Administration Ondansetron HCl 4 mg 02/01/19 10:47 Zofran IV Q8H PRN Nausea And Vomiting Prednisone 20 mg 02/23/19 10:00 02/23/19 10:08 Deltasone PO 20 mg QDAY AMOL Administration Simple Syrup 15 ml 02/22/19 08:27 Simple Syrup FEEDTUBE PRN PRN Hypoglycemia Simple Syrup 30 ml 02/22/19 08:27 Simple Syrup FEEDTUBE PRN PRN Hypoglycemia Sodium Bicarbonate 325 mg 02/22/19 08:27 Sodium Bicarbonate FEEDTUBE PRN PRN For Clogged Feeding Tube Sodium Chloride 10 ml 02/01/19 22:00 02/23/19 10:09 Sodium Chloride Flush Syringe 10 Ml IV 10 ml BID AMOL Administration Sodium Chloride 10 ml 02/01/19 10:47 Sodium Chloride Flush Syringe 10 Ml IV PRN PRN LINE FLUSH Nutrition/Malnutrition Assess - Dietary Evaluation Nutrition/Malnutrition Findings: Nutrition Notes Start: 02/02/19 15:11 Freq: Status: Active Protocol: Document 02/22/19 08:21 LM (Rec: 02/22/19 08:27 LM [email or web address]) Nutrition Notes Initial or Follow up Reassessment Current Diagnosis Acute Kidney Injury, Respiratory Failure Other Pertinent Diagnosis Hypothyroidism, Septic shock, Acute encephalopathy, UTI Current Diet Nepro at 40 ml/hr Labs/Tests BUN 83 BG 157 Pertinent Medications Reviewed Height 5 ft 5 in Weight 95 kg [place] Body Weight (kg) 56.81 BMI 34.8 Subjective/Other Information Nepro running at 40 ml/hr at time of visit. Pt tolerating TF. s/p trach and PEG. Percent of energy/protein needs met: 92%/68% Burn Absent Trauma Absent #1 Nutrition Diagnosis Inadequate oral intake Diagnosis Progress(for reassessment Continues documentation) Is patient on ventilator? Yes Is Patient Ambulatory and/or Out of Bed No REE-([facility]-confined to bed) [phone] Calculation Used for Recommendations [facility] Additional Notes Protein Needs: 114g (2g/kg IBW ) Fluid Needs: 1 ml/kcal Nutrition Intervention Change Diet Order: Continue TF Nutrition Support: Nepro at 40ml/hr Flush with 170ml q4h Kcal 1,728 Protein (gm) 78 Fluid (mL) 697 Goal #1 Meet at least 75% of energy and portein needs Anticipated Discharge Needs: TF Follow-Up By: 02/26/19 Additional Comments F/U for TF tolerance
[2019-02-23] MEDS: hydrALAZINE 20 MG/1 ML INJ IV PRN (12:29)
[2019-02-23] MEDS: INSULIN GLARGINE 100 UNITS/ML SUB-Q SCH (21:33)
[2019-02-24] MEDS: IPRATROPIUM/ALBUTEROL SULFATE 3 ML AMPUL.NEB IH SCH ×3 (01:00→20:52)
[2019-02-24] MEDS: MULTIVITAMINS 5 ML ORAL LIQUID PO SCH (10:46)
[2019-02-24] MEDS: FOLIC ACID 1 MG TAB PO SCH (10:47)
[2019-02-24] MEDS: LANSOPRAZOLE 30 MG SOLUTAB FEEDTUBE SCH ×2 (10:47→21:38)
[2019-02-24] MEDS: LEVOTHYROXINE 125 MCG TAB PO SCH (10:47)
[2019-02-24] MEDS: predniSONE 20 MG TAB PO SCH (10:47)
[2019-02-24] MEDS: dilTIAZem 60 MG TAB PO SCH ×4 (10:47→18:38)
[2019-02-24] MEDS: INSULIN REGULAR, HUMAN 100 UNITS/1 ML SUB-Q SCH ×4 (10:48→18:01)
--- NOTE | 2019-02-24 11:26 | Progress Note ---
Assessment and Plan 53-year-old female status post open tracheostomy, PEG tube placement, fiberoptic bronchoscopy, POD 3 Plan: 1. Due to more than expected bleeding at tracheostomy site and history of bleeding during tracheostomy procedure, recommend exploration of neck wound in OR to find source of bleeding. Based on the stability of the patient and the character/quantity of blood on dressings, likely skin or subcutaneous tissue bleeding. Discussed with patient's son Timmy and consent obtained. Could not reach Debra Harris (patient' mother) 2. obtain CBC, BMP, PT/INR, and type and screen 3. hold TF for now 4. continue vent management per ICU Thank you, please call with questions. Subjective Date of service: 02/24/19 Narrative: Pt seen and examined. c/o some pain near tracheostomy. No f/c. Called by nursing this am regarding bleeding from around tracheostomy. Per nursing, several tracheostomy sponges needed to be changed over a 15 min interval due to bleeding. There was blood on pillow and on neck strap. Objective Vital Signs - 12hr 02/23/19 02/23/19 02/24/19 23:25 23:30 00:00 Temperature 98.4 F Pulse Rate 80 87 Pulse Rate [ Anterior Bilateral Throughout] Respiratory 15 15 Rate Respiratory Rate [Anterior Bilateral Throughout] Blood Pressure 155/82 147/85 O2 Sat by Pulse 100 100 Oximetry O2 Sat by Pulse Oximetry [ Assessment] 02/24/19 02/24/19 02/24/19 00:30 01:00 01:15 Temperature Pulse Rate 66 69 Pulse Rate [ 61 Anterior Bilateral Throughout] Respiratory 14 14 Rate Respiratory 15 Rate [Anterior Bilateral Throughout] Blood Pressure 147/85 147/79 O2 Sat by Pulse 100 100 Oximetry O2 Sat by Pulse Oximetry [ Assessment] 02/24/19 02/24/19 02/24/19 01:30 02:00 02:30 Temperature Pulse Rate 86 61 59 L Pulse Rate [ Anterior Bilateral Throughout] Respiratory 17 14 14 Rate Respiratory Rate [Anterior Bilateral Throughout] Blood Pressure 147/79 148/74 148/74 O2 Sat by Pulse 100 100 100 Oximetry O2 Sat by Pulse Oximetry [ Assessment] 02/24/19 02/24/19 02/24/19 03:00 03:30 03:44 Temperature 97.7 F Pulse Rate 68 58 L Pulse Rate [ Anterior Bilateral Throughout] Respiratory 14 14 Rate Respiratory Rate [Anterior Bilateral Throughout] Blood Pressure 149/80 149/80 O2 Sat by Pulse 100 100 Oximetry O2 Sat by Pulse Oximetry [ Assessment] 02/24/19 02/24/19 02/24/19 04:00 04:18 04:30 Temperature Pulse Rate 86 83 77 Pulse Rate [ Anterior Bilateral Throughout] Respiratory 15 15 Rate Respiratory Rate [Anterior Bilateral Throughout] Blood Pressure 146/74 146/74 146/74 O2 Sat by Pulse 100 100 100 Oximetry O2 Sat by Pulse Oximetry [ Assessment] 02/24/19 02/24/19 02/24/19 05:00 05:30 06:00 Temperature Pulse Rate 77 78 80 Pulse Rate [ Anterior Bilateral Throughout] Respiratory 15 14 15 Rate Respiratory Rate [Anterior Bilateral Throughout] Blood Pressure 141/58 141/58 155/76 O2 Sat by Pulse 100 100 100 Oximetry O2 Sat by Pulse Oximetry [ Assessment] 02/24/19 02/24/19 02/24/19 06:30 07:00 07:30 Temperature Pulse Rate 85 81 73 Pulse Rate [ Anterior Bilateral Throughout] Respiratory 16 16 15 Rate Respiratory Rate [Anterior Bilateral Throughout] Blood Pressure 155/76 155/76 169/84 O2 Sat by Pulse 100 100 100 Oximetry O2 Sat by Pulse Oximetry [ Assessment] 02/24/19 02/24/19 02/24/19 07:34 07:44 08:00 Temperature 98.5 F Pulse Rate 78 Pulse Rate [ 61 Anterior Bilateral Throughout] Respiratory 14 Rate Respiratory 15 Rate [Anterior Bilateral Throughout] Blood Pressure 153/75 O2 Sat by Pulse 100 Oximetry O2 Sat by Pulse 100 Oximetry [ Assessment] 02/24/19 02/24/19 02/24/19 08:30 08:32 10:22 Temperature Pulse Rate 60 63 86 Pulse Rate [ Anterior Bilateral Throughout] Respiratory 14 Rate Respiratory Rate [Anterior Bilateral Throughout] Blood Pressure 153/75 153/75 161/74 O2 Sat by Pulse 100 100 100 Oximetry O2 Sat by Pulse Oximetry [ Assessment] - General physical appearance Narrative Exam: Gen: Awake and alert. On vent ENT: tracheostomy in place. Minimal oozing from around the tracheostomy. No hematoma or ecchymosis of neck. No swelling. CV; s1, S2+ resp: on vent Ext: no c/c/e Multiple drain sponges in patient's sink. Bloody drainage on the portion of the sponges that directly surrounds tracheostomy tube. Remainder of the sponge is clean and dry - Labs 02/22/19 04:13 02/22/19 04:13
[2019-02-24] MEDS ORDERED: ROCURONIUM 50 MG/5 ML INJ IV ONE (11:42)
[2019-02-24] MEDS ORDERED: PROPOFOL 200 MG/20 ML VIAL IV ONE (11:42)
[2019-02-24] MEDS ORDERED: fentaNYL 100 MCG/2 ML INJ ONE (11:42)
[2019-02-24 11:46] LABS: BUN/Creatinine Ratio 89; Blood Urea Nitrogen 80 mg/dL (7-17); Calcium 8.1 mg/dL (8.4-10.2); Hemolysis Index 3
[2019-02-24] MEDS ORDERED: LACTATED RINGERS 1,000 ML ONE (11:51)
--- NOTE | 2019-02-24 11:52 | Anesthesia Day of Surgery ---
Anesthesia Day of Surgery - Day of Surgery Patient Examined: Yes Patient H&P Reviewed: Yes Patient is NPO: No (tube feeds running until approx 1100. )
[2019-02-24 11:56] LABS: Hematocrit 27.8 % (30.3-42.9); Hemoglobin 8.9 gm/dl (10.1-14.3); Mean Corpuscular HGB Conc 32 % (30-34); Mean Corpuscular Volume 94 fl (79-97); Platelet Count 123 K/mm3 (140-440); Red Blood Count 2.95 M/mm3 (3.65-5.03); Red Cell Distribution Width 17.7 % (13.2-15.2)
[2019-02-24 12:08] LABS: INR 1.08 (0.87-1.13)
[2019-02-24] MEDS ORDERED: dexAMETHasone 20 MG/5 ML VIAL ONE (12:31)
[2019-02-24] MEDS ORDERED: ONDANSETRON 4 MG/2 ML INJ ONE (12:31)
--- NOTE | 2019-02-24 13:04 | Post Anesthesia Evaluation ---
- Post Anesthesia Evaluation Patient Participated: No (sedated) Airway Patent: Yes Stable Respiratory Function: Yes Nausea/Vomiting: No Temp > 96.8F: Yes Pain Manageable: Yes Adequeate Hydration: Yes Anesthesia Complications: No Patient on Ventilator: Yes (450x14, FiO2 30%, Peep 6, PS 10) Other Comments: Patient transported to ICU with monitors, HD stable, ventilation via AMBU. On arrival, report given to SIX SIGMA BLACK BELT ENGINEER, CHEMICAL RECLAMATION EQUIPMENT OPERATOR, and hospitalist at [facility] Placed on vent by RT.
--- NOTE | 2019-02-24 13:07 | Progress Note ---
Assessment and Plan 53 y/o female with strep pneumonae bacteremia, meningitis and now stroke with acute respiratory failure and continued azotemia. 1. Neuro/Rheum: Continue Prednisone 20 daily. 2. MSK: Continue PT as patient's mental status has improved and she is very weak. 3. Renal: stable, nephrology has signed off. 4. CV-Follow up cards recs if any new ones. 5. GI-patient with severe gastritis seen on Peg placement. Stopped H2 geraldine and placed on BID PPI 6. Overall prognosis remains guarded, however good that patient is awake. 7. Stable for transfer when bed available. Total critical care time 31 minutes Subjective Date of service: 02/24/19 Principal diagnosis: h/o low plt Interval history: No acute events overnight. Had some bleeding around the trach site, so taken to the OR for cautery and mild debridement. Tolerated well with no issues. Mother made aware and was at the bedside. Remainder is negative. Mildly sedated from procedure. Objective Vital Signs - 12hr 02/24/19 02/24/19 02/24/19 01:15 01:30 02:00 Temperature Pulse Rate 86 61 Pulse Rate [ 61 Anterior Bilateral Throughout] Pulse Rate [ From Monitor] Respiratory 17 14 Rate Respiratory 15 Rate [Anterior Bilateral Throughout] Blood Pressure 147/79 148/74 O2 Sat by Pulse 100 100 Oximetry O2 Sat by Pulse Oximetry [ Assessment] 02/24/19 02/24/19 02/24/19 02:30 03:00 03:30 Temperature Pulse Rate 59 L 68 58 L Pulse Rate [ Anterior Bilateral Throughout] Pulse Rate [ From Monitor] Respiratory 14 14 14 Rate Respiratory Rate [Anterior Bilateral Throughout] Blood Pressure 148/74 149/80 149/80 O2 Sat by Pulse 100 100 100 Oximetry O2 Sat by Pulse Oximetry [ Assessment] 02/24/19 02/24/19 02/24/19 03:44 04:00 04:18 Temperature 97.7 F Pulse Rate 86 83 Pulse Rate [ Anterior Bilateral Throughout] Pulse Rate [ From Monitor] Respiratory 15 Rate Respiratory Rate [Anterior Bilateral Throughout] Blood Pressure 146/74 146/74 O2 Sat by Pulse 100 100 Oximetry O2 Sat by Pulse Oximetry [ Assessment] 02/24/19 02/24/19 02/24/19 04:30 05:00 05:30 Temperature Pulse Rate 77 77 78 Pulse Rate [ Anterior Bilateral Throughout] Pulse Rate [ From Monitor] Respiratory 15 15 14 Rate Respiratory Rate [Anterior Bilateral Throughout] Blood Pressure 146/74 141/58 141/58 O2 Sat by Pulse 100 100 100 Oximetry O2 Sat by Pulse Oximetry [ Assessment] 02/24/19 02/24/19 02/24/19 06:00 06:30 07:00 Temperature Pulse Rate 80 85 81 Pulse Rate [ Anterior Bilateral Throughout] Pulse Rate [ From Monitor] Respiratory 15 16 16 Rate Respiratory Rate [Anterior Bilateral Throughout] Blood Pressure 155/76 155/76 155/76 O2 Sat by Pulse 100 100 100 Oximetry O2 Sat by Pulse Oximetry [ Assessment] 02/24/19 02/24/19 02/24/19 07:30 07:34 07:44 Temperature Pulse Rate 73 Pulse Rate [ 61 Anterior Bilateral Throughout] Pulse Rate [ From Monitor] Respiratory 15 Rate Respiratory 15 Rate [Anterior Bilateral Throughout] Blood Pressure 169/84 O2 Sat by Pulse 100 Oximetry O2 Sat by Pulse 100 Oximetry [ Assessment] 02/24/19 02/24/19 02/24/19 08:00 08:30 08:32 Temperature 98.5 F Pulse Rate 78 60 63 Pulse Rate [ Anterior Bilateral Throughout] Pulse Rate [ 78 From Monitor] Respiratory 14 14 Rate Respiratory Rate [Anterior Bilateral Throughout] Blood Pressure 153/75 153/75 153/75 O2 Sat by Pulse 100 100 100 Oximetry O2 Sat by Pulse Oximetry [ Assessment] 02/24/19 02/24/19 02/24/19 09:00 09:30 10:00 Temperature Pulse Rate 78 74 66 Pulse Rate [ Anterior Bilateral Throughout] Pulse Rate [ From Monitor] Respiratory 14 14 14 Rate Respiratory Rate [Anterior Bilateral Throughout] Blood Pressure 148/79 148/79 161/74 O2 Sat by Pulse 100 100 100 Oximetry O2 Sat by Pulse Oximetry [ Assessment] 02/24/19 02/24/19 02/24/19 10:22 10:30 11:00 Temperature Pulse Rate 86 72 76 Pulse Rate [ Anterior Bilateral Throughout] Pulse Rate [ From Monitor] Respiratory 15 14 Rate Respiratory Rate [Anterior Bilateral Throughout] Blood Pressure 161/74 161/74 150/67 O2 Sat by Pulse 100 100 100 Oximetry O2 Sat by Pulse Oximetry [ Assessment] 02/24/19 02/24/19 02/24/19 11:25 11:30 12:50 Temperature 97.4 F L Pulse Rate 86 84 56 L Pulse Rate [ Anterior Bilateral Throughout] Pulse Rate [ From Monitor] Respiratory 15 16 Rate Respiratory Rate [Anterior Bilateral Throughout] Blood Pressure 150/67 150/67 160/76 O2 Sat by Pulse 100 100 100 Oximetry O2 Sat by Pulse Oximetry [ Assessment] 02/24/19 12:55 Temperature Pulse Rate 63 Pulse Rate [ Anterior Bilateral Throughout] Pulse Rate [ From Monitor] Respiratory 14 Rate Respiratory Rate [Anterior Bilateral Throughout] Blood Pressure 160/82 O2 Sat by Pulse 100 Oximetry O2 Sat by Pulse Oximetry [ Assessment] Constitutional: no acute distress, alert Eyes: non-icteric ENT: oropharynx moist Neck: supple, other (Proximal XLT size [address]) Effort: normal Ascultation: Bilateral: other (coarse BS bilaterally) Cardiovascular: regular rate and rhythm (no mrg) Gastrointestinal: normoactive bowel sounds, soft, non-tender, non-distended Integumentary: normal Extremities: no cyanosis, no edema, pink and warm Neurologic: other (L sided hemiparesis) Psychiatric: mood appropriate, affect normal CBC and BMP: 02/24/19 10:52 02/24/19 10:52 ABG, PT/INR, D-dimer: ABG POC ABG pH 7.418 (7.35-7.45) 02/12/19 05:36 ABG pH 7.440 pH Units (7.350-7.450) 02/11/19 04:10 POC ABG pCO2 36.9 (35-45) 02/12/19 05:36 ABG pCO2 37.4 mm Hg 02/11/19 04:10 POC ABG pO2 92 (80-105) 02/12/19 05:36 ABG pO2 69.4 mm Hg (80.0-90.0) L 02/11/19 04:10 POC ABG HCO3 23.8 (22-26 mml/L) 02/12/19 05:36 POC ABG Total CO2 25 (23-27mmol/L) 02/12/19 05:36 POC ABG O2 Sat 97 02/12/19 05:36 ABG O2 Saturation 94.2 % (95.0-99.0) L 02/11/19 04:10 PT/INR, D-dimer PT 13.7 Sec. (12.2-14.9) 02/24/19 10:52 INR 1.08 (0.87-1.13) 02/24/19 10:52 Abnormal lab findings: Abnormal Labs 02/01/19 02/01/19 02/01/19 07:16 07:16 07:16 WBC 17.7 H RBC Hgb Hct RDW 16.9 H Plt Count 62 L Seg Neuts % (Manual) 95.0 H Lymphocytes % (Manual) 0 L Seg Neutrophils # Man 16.8 H Lymphocytes # (Manual) 0.0 L PT 15.0 H INR 1.21 H APTT Thrombin Time 20.0 H POC ABG pH ABG pH POC ABG pCO2 POC ABG pO2 ABG pO2 ABG HCO3 ABG O2 Saturation ABG Base Excess ABG Hemoglobin Oxyhemoglobin Sodium 135 L Potassium Chloride 97.7 L Carbon Dioxide 19 L BUN 51 H Creatinine 4.5 H Glucose 112 H POC Glucose Lactic Acid Calcium Magnesium Iron TIBC Direct Bilirubin AST Alkaline Phosphatase Troponin T 0.181 H* C-Reactive Protein Total Protein Albumin LDL Cholesterol Direct 34 L HDL Cholesterol 20 L Vitamin B12 Folate TSH Urine WBC (Auto) Urine Creatinine Urine Total Protein [place] Screen CHE[place] Titer Complement C3 Complement C4 02/01/19 02/01/19 02/01/19 07:29 07:29 07:43 WBC RBC Hgb Hct RDW Plt Count Seg Neuts % (Manual) Lymphocytes % (Manual) Seg Neutrophils # Man Lymphocytes # (Manual) PT INR APTT Thrombin Time POC ABG pH ABG pH POC ABG pCO2 POC ABG pO2 ABG pO2 ABG HCO3 ABG O2 Saturation ABG Base Excess ABG Hemoglobin Oxyhemoglobin Sodium Potassium Chloride Carbon Dioxide BUN Creatinine Glucose POC Glucose Lactic Acid 4.80 H* Calcium Magnesium Iron TIBC Direct Bilirubin 0.7 H AST 42 H Alkaline Phosphatase Troponin T C-Reactive Protein Total Protein 8.9 H Albumin 2.3 L LDL Cholesterol Direct HDL Cholesterol Vitamin B12 Folate TSH 8.470 H Urine WBC (Auto) Urine Creatinine Urine Total Protein [place] Screen [place] Titer Complement C3 Complement C4 02/01/19 02/01/19 02/01/19 09:45 11:32 13:50 WBC RBC Hgb Hct RDW Plt Count Seg Neuts % (Manual) Lymphocytes % (Manual) Seg Neutrophils # Man Lymphocytes # (Manual) PT INR APTT Thrombin Time POC ABG pH 7.289 L ABG pH POC ABG pCO2 POC ABG pO2 355 H ABG pO2 ABG HCO3 ABG O2 Saturation ABG Base Excess ABG Hemoglobin Oxyhemoglobin Sodium Potassium Chloride Carbon Dioxide BUN Creatinine Glucose POC Glucose Lactic Acid 4.10 H* Calcium Magnesium Iron TIBC Direct Bilirubin AST Alkaline Phosphatase Troponin T C-Reactive Protein Total Protein Albumin LDL Cholesterol Direct HDL Cholesterol Vitamin B12 Folate TSH Urine WBC (Auto) 16.0 H Urine Creatinine Urine Total Protein [place] Screen [place] Titer Complement C3 Complement C4 02/01/19 02/01/19 02/01/19 15:15 16:20 16:51 WBC RBC Hgb Hct RDW Plt Count Seg Neuts % (Manual) Lymphocytes % (Manual) Seg Neutrophils # Man Lymphocytes # (Manual) PT INR APTT Thrombin Time POC ABG pH ABG pH POC ABG pCO2 POC ABG pO2 ABG pO2 ABG HCO3 ABG O2 Saturation ABG Base Excess ABG Hemoglobin Oxyhemoglobin Sodium Potassium Chloride Carbon Dioxide BUN Creatinine Glucose POC Glucose 115 H Lactic Acid 4.50 H* Calcium Magnesium Iron TIBC Direct Bilirubin AST Alkaline Phosphatase Troponin T C-Reactive Protein Total Protein Albumin LDL Cholesterol Direct HDL Cholesterol Vitamin B12 Folate TSH Urine WBC (Auto) Urine Creatinine Urine Total Protein [place] Screen [place] Titer Complement C3 36 L Complement C4 02/01/19 02/01/19 02/01/19 16:51 17:03 17:04 WBC RBC Hgb Hct RDW Plt Count Seg Neuts % (Manual) Lymphocytes % (Manual) Seg Neutrophils # Man Lymphocytes # (Manual) PT INR APTT Thrombin Time POC ABG pH ABG pH POC ABG pCO2 POC ABG pO2 ABG pO2 ABG HCO3 ABG O2 Saturation ABG Base Excess ABG Hemoglobin Oxyhemoglobin Sodium Potassium Chloride Carbon Dioxide BUN Creatinine Glucose POC Glucose Lactic Acid 2.80 H* Calcium Magnesium Iron TIBC Direct Bilirubin AST Alkaline Phosphatase Troponin T C-Reactive Protein 32.30 H Total Protein Albumin LDL Cholesterol Direct HDL Cholesterol Vitamin B12 Folate TSH Urine WBC (Auto) Urine Creatinine Urine Total Protein [place] Screen [place] Titer Complement C3 Complement C4 12 L 02/01/19 02/01/19 02/02/19 17:04 19:28 05:16 WBC RBC Hgb Hct RDW Plt Count Seg Neuts % (Manual) Lymphocytes % (Manual) Seg Neutrophils # Man Lymphocytes # (Manual) PT INR APTT Thrombin Time POC ABG pH ABG pH POC ABG pCO2 POC ABG pO2 148 H ABG pO2 ABG HCO3 ABG O2 Saturation ABG Base Excess ABG Hemoglobin Oxyhemoglobin Sodium Potassium Chloride 107.1 H Carbon Dioxide 18 L BUN 52 H Creatinine 3.1 H Glucose 120 H POC Glucose Lactic Acid Calcium 7.4 L Magnesium Iron TIBC Direct Bilirubin AST Alkaline Phosphatase Troponin T C-Reactive Protein Total Protein Albumin LDL Cholesterol Direct HDL Cholesterol Vitamin B12 Folate TSH Urine WBC (Auto) Urine Creatinine Urine Total Protein [place] Screen Positive H CHE[place] Titer 1:320 H Complement C3 Complement C4 02/02/19 02/02/19 02/03/19 05:53 05:53 03:30 WBC 14.3 H RBC 5.16 H Hgb 14.9 H Hct 46.2 H D RDW 16.9 H 17.0 H Plt Count 43 L 18 L* Seg Neuts % (Manual) 93.0 H Lymphocytes % (Manual) 2.0 L Seg Neutrophils # Man 13.3 H Lymphocytes # (Manual) 0.3 L PT INR APTT Thrombin Time POC ABG pH ABG pH POC ABG pCO2 POC ABG pO2 ABG pO2 ABG HCO3 ABG O2 Saturation ABG Base Excess ABG Hemoglobin Oxyhemoglobin Sodium Potassium 5.1 H Chloride Carbon Dioxide 21 L BUN 57 H Creatinine 3.3 H Glucose 147 H POC Glucose Lactic Acid Calcium 7.5 L Magnesium Iron TIBC Direct Bilirubin AST 51 H Alkaline Phosphatase Troponin T C-Reactive Protein Total Protein Albumin 1.6 L LDL Cholesterol Direct HDL Cholesterol Vitamin B12 Folate TSH Urine WBC (Auto) Urine Creatinine Urine Total Protein [place] Screen [place] Titer Complement C3 Complement C4 02/03/19 02/03/19 02/03/19 03:30 05:55 14:42 WBC RBC Hgb Hct RDW Plt Count Seg Neuts % (Manual) Lymphocytes % (Manual) Seg Neutrophils # Man Lymphocytes # (Manual) PT INR APTT Thrombin Time POC ABG pH ABG pH POC ABG pCO2 POC ABG pO2 117 H ABG pO2 ABG HCO3 ABG O2 Saturation ABG Base Excess ABG Hemoglobin Oxyhemoglobin Sodium Potassium Chloride Carbon Dioxide BUN 65 H Creatinine 2.7 H Glucose 117 H POC Glucose Lactic Acid Calcium 7.2 L Magnesium Iron TIBC Direct Bilirubin AST Alkaline Phosphatase Troponin T C-Reactive Protein Total Protein Albumin LDL Cholesterol Direct HDL Cholesterol Vitamin B12 1468 H Folate TSH Urine WBC (Auto) Urine Creatinine Urine Total Protein [place] Screen [place] Titer Complement C3 Complement C4 02/03/19 02/03/19 02/03/19 14:42 14:42 14:42 WBC RBC 3.17 L Hgb 9.4 L D Hct 28.3 L D RDW 16.9 H Plt Count 18 L* Seg Neuts % (Manual) Lymphocytes % (Manual) Seg Neutrophils # Man Lymphocytes # (Manual) PT INR APTT Thrombin Time POC ABG pH ABG pH POC ABG pCO2 POC ABG pO2 ABG pO2 ABG HCO3 ABG O2 Saturation ABG Base Excess ABG Hemoglobin Oxyhemoglobin Sodium Potassium Chloride Carbon Dioxide BUN Creatinine Glucose POC Glucose Lactic Acid Calcium Magnesium Iron 11 L TIBC 88 L Direct Bilirubin AST Alkaline Phosphatase Troponin T C-Reactive Protein Total Protein Albumin LDL Cholesterol Direct HDL Cholesterol Vitamin B12 Folate 5.18 L TSH Urine WBC (Auto) Urine Creatinine Urine Total Protein [place] Screen [place] Titer Complement C3 Complement C4 02/03/19 02/03/19 02/04/19 14:42 14:42 03:35 WBC RBC 3.22 L Hgb 9.5 L Hct 28.5 L RDW 16.4 H Plt Count 18 L* Seg Neuts % (Manual) Lymphocytes % (Manual) Seg Neutrophils # Man Lymphocytes # (Manual) PT 15.8 H INR 1.29 H APTT 38.2 H Thrombin Time POC ABG pH ABG pH 7.470 H POC ABG pCO2 POC ABG pO2 ABG pO2 ABG HCO3 28.4 H ABG O2 Saturation ABG Base Excess 4.5 H ABG Hemoglobin 10.1 L Oxyhemoglobin 94.7 L Sodium Potassium Chloride Carbon Dioxide BUN Creatinine Glucose POC Glucose Lactic Acid Calcium Magnesium Iron TIBC Direct Bilirubin AST Alkaline Phosphatase Troponin T C-Reactive Protein Total Protein Albumin LDL Cholesterol Direct HDL Cholesterol Vitamin B12 Folate TSH Urine WBC (Auto) Urine Creatinine Urine Total Protein [place] Screen [place] Titer Complement C3 Complement C4 02/04/19 02/04/19 02/05/19 05:02 05:02 03:50 WBC RBC Hgb Hct RDW 16.5 H Plt Count 20 L Seg Neuts % (Manual) 94.0 H Lymphocytes % (Manual) 2.0 L Seg Neutrophils # Man 9.2 H Lymphocytes # (Manual) 0.2 L PT INR APTT Thrombin Time POC ABG pH ABG pH 7.485 H POC ABG pCO2 POC ABG pO2 ABG pO2 ABG HCO3 27.5 H ABG O2 Saturation ABG Base Excess 3.9 H ABG Hemoglobin 9.1 L Oxyhemoglobin 94.8 L Sodium Potassium Chloride Carbon Dioxide BUN 66 H Creatinine 1.7 H Glucose 127 H POC Glucose Lactic Acid Calcium 7.6 L Magnesium Iron TIBC Direct Bilirubin AST Alkaline Phosphatase Troponin T C-Reactive Protein Total Protein Albumin LDL Cholesterol Direct HDL Cholesterol Vitamin B12 Folate TSH Urine WBC (Auto) Urine Creatinine Urine Total Protein [place] Screen [place] Titer Complement C3 Complement C4 02/05/19 02/05/19 02/05/19 13:02 14:36 20:03 WBC 11.7 H RBC 3.48 L 3.24 L Hgb 10.0 L 9.4 L Hct 29.2 L RDW 16.3 H 16.3 H Plt Count 50 L D 71 L Seg Neuts % (Manual) 95.0 H 95.0 H Lymphocytes % (Manual) 0 L 2.0 L Seg Neutrophils # Man 11.1 H 10.2 H Lymphocytes # (Manual) 0.0 L 0.2 L PT INR APTT Thrombin Time POC ABG pH ABG pH POC ABG pCO2 POC ABG pO2 ABG pO2 ABG HCO3 ABG O2 Saturation ABG Base Excess ABG Hemoglobin Oxyhemoglobin Sodium Potassium Chloride Carbon Dioxide BUN 67 H Creatinine 1.5 H Glucose POC Glucose Lactic Acid Calcium 7.7 L Magnesium Iron TIBC Direct Bilirubin AST Alkaline Phosphatase Troponin T C-Reactive Protein Total Protein Albumin LDL Cholesterol Direct HDL Cholesterol Vitamin B12 Folate TSH Urine WBC (Auto) Urine Creatinine Urine Total Protein [place] Screen [place] Titer Complement C3 Complement C4 02/06/19 02/06/19 02/06/19 05:39 07:35 18:34 WBC RBC Hgb Hct RDW Plt Count Seg Neuts % (Manual) Lymphocytes % (Manual) Seg Neutrophils # Man Lymphocytes # (Manual) PT 16.3 H INR 1.35 H APTT Thrombin Time POC ABG pH ABG pH POC ABG pCO2 POC ABG pO2 ABG pO2 ABG HCO3 ABG O2 Saturation ABG Base Excess ABG Hemoglobin Oxyhemoglobin Sodium Potassium Chloride Carbon Dioxide BUN Creatinine Glucose POC Glucose 107 H 121 H Lactic Acid Calcium Magnesium Iron TIBC Direct Bilirubin AST Alkaline Phosphatase Troponin T C-Reactive Protein Total Protein Albumin LDL Cholesterol Direct HDL Cholesterol Vitamin B12 Folate TSH Urine WBC (Auto) Urine Creatinine Urine Total Protein [place] Screen [place] Titer Complement C3 Complement C4 02/06/19 02/07/19 02/07/19 Unknown 01:07 04:15 WBC RBC Hgb Hct RDW Plt Count Seg Neuts % (Manual) Lymphocytes % (Manual) Seg Neutrophils # Man Lymphocytes # (Manual) PT INR APTT Thrombin Time POC ABG pH ABG pH POC ABG pCO2 POC ABG pO2 ABG pO2 ABG HCO3 ABG O2 Saturation ABG Base Excess ABG Hemoglobin 5.0 L Oxyhemoglobin 94.9 L 94.8 L Sodium 146 H Potassium Chloride Carbon Dioxide BUN 85 H Creatinine 1.8 H Glucose 163 H POC Glucose Lactic Acid Calcium 8.3 L Magnesium Iron TIBC Direct Bilirubin AST Alkaline Phosphatase Troponin T C-Reactive Protein Total Protein Albumin LDL Cholesterol Direct HDL Cholesterol Vitamin B12 Folate TSH Urine WBC (Auto) Urine Creatinine Urine Total Protein [place] Screen [place] Titer Complement C3 Complement C4 02/07/19 02/07/19 02/08/19 08:22 10:58 04:40 WBC RBC Hgb Hct RDW 16.0 H Plt Count 84 L Seg Neuts % (Manual) 97.0 H Lymphocytes % (Manual) 0 L Seg Neutrophils # González 9.5 H Lymphocytes # (Manual) 0.0 L PT INR APTT Thrombin Time POC ABG pH 7.477 H ABG pH 7.467 H POC ABG pCO2 34.8 L POC ABG pO2 118 H ABG pO2 ABG HCO3 ABG O2 Saturation ABG Base Excess ABG Hemoglobin 8.4 L Oxyhemoglobin Sodium Potassium Chloride Carbon Dioxide BUN Creatinine Glucose POC Glucose Lactic Acid Calcium Magnesium Iron TIBC Direct Bilirubin AST Alkaline Phosphatase Troponin T C-Reactive Protein Total Protein Albumin LDL Cholesterol Direct HDL Cholesterol Vitamin B12 Folate TSH Urine WBC (Auto) Urine Creatinine Urine Total Protein [place] Screen [place] Titer Complement C3 Complement C4 02/09/19 02/09/19 02/09/19 03:17 03:17 04:35 WBC 14.9 H RBC 3.32 L Hgb 9.6 L Hct RDW 15.9 H Plt Count 113 L Seg Neuts % (Manual) 96.0 H Lymphocytes % (Manual) 1.0 L Seg Neutrophils # Man 14.3 H Lymphocytes # (Manual) 0.1 L PT INR APTT Thrombin Time POC ABG pH ABG pH 7.478 H POC ABG pCO2 POC ABG pO2 ABG pO2 94.5 H ABG HCO3 ABG O2 Saturation ABG Base Excess ABG Hemoglobin 6.1 L Oxyhemoglobin Sodium 147 H Potassium Chloride 110.4 H Carbon Dioxide BUN 114 H Creatinine 2.2 H Glucose 270 H POC Glucose Lactic Acid Calcium 8.1 L Magnesium Iron TIBC Direct Bilirubin AST Alkaline Phosphatase Troponin T C-Reactive Protein Total Protein Albumin 1.6 L LDL Cholesterol Direct HDL Cholesterol Vitamin B12 Folate TSH Urine WBC (Auto) Urine Creatinine Urine Total Protein [place] Screen [place] Titer Complement C3 Complement C4 02/09/19 02/09/19 02/10/19 13:35 18:54 05:13 WBC RBC Hgb Hct RDW Plt Count Seg Neuts % (Manual) Lymphocytes % (Manual) Seg Neutrophils # Man Lymphocytes # (Manual) PT INR APTT Thrombin Time POC ABG pH ABG pH 7.478 H POC ABG pCO2 POC ABG pO2 ABG pO2 ABG HCO3 ABG O2 Saturation ABG Base Excess ABG Hemoglobin 8.1 L Oxyhemoglobin 94.9 L Sodium Potassium Chloride Carbon Dioxide BUN Creatinine Glucose POC Glucose Lactic Acid Calcium Magnesium Iron TIBC Direct Bilirubin AST Alkaline Phosphatase Troponin T C-Reactive Protein Total Protein Albumin LDL Cholesterol Direct HDL Cholesterol Vitamin B12 Folate TSH Urine WBC (Auto) 10.0 H Urine Creatinine 92.9 H Urine Total Protein 116 H [place] Screen [place] Titer Complement C3 Complement C4 02/10/19 02/10/19 02/11/19 18:14 23:24 04:10 WBC RBC Hgb Hct RDW Plt Count Seg Neuts % (Manual) Lymphocytes % (Manual) Seg Neutrophils # Man Lymphocytes # (Manual) PT INR APTT Thrombin Time POC ABG pH ABG pH POC ABG pCO2 POC ABG pO2 ABG pO2 69.4 L ABG HCO3 ABG O2 Saturation 94.2 L ABG Base Excess ABG Hemoglobin 11.0 L Oxyhemoglobin 92.1 L Sodium Potassium Chloride Carbon Dioxide BUN Creatinine Glucose POC Glucose 453 H 403 H Lactic Acid Calcium Magnesium Iron TIBC Direct Bilirubin AST Alkaline Phosphatase Troponin T C-Reactive Protein Total Protein Albumin LDL Cholesterol Direct HDL Cholesterol Vitamin B12 Folate TSH Urine WBC (Auto) Urine Creatinine Urine Total Protein [place] Screen [place] Titer Complement C3 Complement C4 02/11/19 02/11/19 02/11/19 04:54 04:54 05:40 WBC 12.5 H RBC 3.18 L Hgb 9.4 L Hct 29.4 L RDW 16.6 H Plt Count Seg Neuts % (Manual) 94.0 H Lymphocytes % (Manual) 4.0 L Seg Neutrophils # Man 11.8 H Lymphocytes # (Manual) 0.5 L PT INR APTT Thrombin Time POC ABG pH ABG pH POC ABG pCO2 POC ABG pO2 ABG pO2 ABG HCO3 ABG O2 Saturation ABG Base Excess ABG Hemoglobin Oxyhemoglobin Sodium 151 H Potassium Chloride 112.6 H Carbon Dioxide BUN 127 H Creatinine 1.8 H Glucose 396 H POC Glucose 410 H Lactic Acid Calcium 8.3 L Magnesium Iron TIBC Direct Bilirubin AST Alkaline Phosphatase 132 H Troponin T C-Reactive Protein Total Protein Albumin 2.1 L LDL Cholesterol Direct HDL Cholesterol Vitamin B12 Folate TSH Urine WBC (Auto) Urine Creatinine Urine Total Protein [place] Screen [place] Titer Complement C3 Complement C4 02/11/19 02/11/19 02/11/19 11:30 17:58 23:18 WBC RBC Hgb Hct RDW Plt Count Seg Neuts % (Manual) Lymphocytes % (Manual) Seg Neutrophils # Man Lymphocytes # (Manual) PT INR APTT Thrombin Time POC ABG pH ABG pH POC ABG pCO2 POC ABG pO2 ABG pO2 ABG HCO3 ABG O2 Saturation ABG Base Excess ABG Hemoglobin Oxyhemoglobin Sodium Potassium Chloride Carbon Dioxide BUN Creatinine Glucose POC Glucose 361 H 414 H 392 H Lactic Acid Calcium Magnesium Iron TIBC Direct Bilirubin AST Alkaline Phosphatase Troponin T C-Reactive Protein Total Protein Albumin LDL Cholesterol Direct HDL Cholesterol Vitamin B12 Folate TSH Urine WBC (Auto) Urine Creatinine Urine Total Protein [place] Screen [place] Titer Complement C3 Complement C4 02/12/19 02/12/19 02/12/19 05:32 05:36 05:36 WBC 11.9 H RBC 3.40 L Hgb 9.9 L Hct RDW 16.4 H Plt Count Seg Neuts % (Manual) 97.0 H Lymphocytes % (Manual) 2.0 L Seg Neutrophils # Man 11.5 H Lymphocytes # (Manual) 0.2 L PT INR APTT Thrombin Time POC ABG pH ABG pH POC ABG pCO2 POC ABG pO2 ABG pO2 ABG HCO3 ABG O2 Saturation ABG Base Excess ABG Hemoglobin Oxyhemoglobin Sodium 146 H Potassium 3.5 L Chloride 110.2 H Carbon Dioxide BUN 118 H Creatinine 1.4 H Glucose 382 H POC Glucose 361 H Lactic Acid Calcium 8.3 L Magnesium Iron TIBC Direct Bilirubin AST Alkaline Phosphatase 137 H Troponin T C-Reactive Protein Total Protein Albumin 2.0 L LDL Cholesterol Direct HDL Cholesterol Vitamin B12 Folate TSH Urine WBC (Auto) Urine Creatinine Urine Total Protein [place] Screen [place] Titer Complement C3 Complement C4 08/02/12/19 02/12/19 11:51 17:18 21:46 WBC RBC Hgb Hct RDW Plt Count Seg Neuts % (Manual) Lymphocytes % (Manual) Seg Neutrophils # Man Lymphocytes # (Manual) PT INR APTT Thrombin Time POC ABG pH ABG pH POC ABG pCO2 POC ABG pO2 ABG pO2 ABG HCO3 ABG O2 Saturation ABG Base Excess ABG Hemoglobin Oxyhemoglobin Sodium Potassium Chloride Carbon Dioxide BUN Creatinine Glucose POC Glucose 357 H 280 H 222 H Lactic Acid Calcium Magnesium Iron TIBC Direct Bilirubin AST Alkaline Phosphatase Troponin T C-Reactive Protein Total Protein Albumin LDL Cholesterol Direct HDL Cholesterol Vitamin B12 Folate TSH Urine WBC (Auto) Urine Creatinine Urine Total Protein [place] Screen [place] Titer Complement C3 Complement C4 02/12/19 02/13/19 02/13/19 23:58 03:41 03:41 WBC 11.6 H RBC 3.53 L Hgb Hct RDW 15.8 H Plt Count 98 L Seg Neuts % (Manual) 97.0 H Lymphocytes % (Manual) 2.0 L Seg Neutrophils # Man 11.3 H Lymphocytes # (Manual) 0.2 L PT INR APTT Thrombin Time POC ABG pH ABG pH POC ABG pCO2 POC ABG pO2 ABG pO2 ABG HCO3 ABG O2 Saturation ABG Base Excess ABG Hemoglobin Oxyhemoglobin Sodium Potassium 3.4 L Chloride 109.7 H Carbon Dioxide BUN 108 H Creatinine Glucose 182 H POC Glucose 208 H Lactic Acid Calcium Magnesium Iron TIBC Direct Bilirubin AST 45 H Alkaline Phosphatase 150 H Troponin T C-Reactive Protein Total Protein Albumin 1.8 L LDL Cholesterol Direct HDL Cholesterol Vitamin B12 Folate TSH Urine WBC (Auto) Urine Creatinine Urine Total Protein [place] Screen [place] Titer Complement C3 Complement C4 02/13/19 02/13/19 02/13/19 05:40 11:31 18:01 WBC RBC Hgb Hct RDW Plt Count Seg Neuts % (Manual) Lymphocytes % (Manual) Seg Neutrophils # Man Lymphocytes # (Manual) PT INR APTT Thrombin Time POC ABG pH ABG pH POC ABG pCO2 POC ABG pO2 ABG pO2 ABG HCO3 ABG O2 Saturation ABG Base Excess ABG Hemoglobin Oxyhemoglobin Sodium Potassium Chloride Carbon Dioxide BUN Creatinine Glucose POC Glucose 179 H 193 H 151 H Lactic Acid Calcium Magnesium Iron TIBC Direct Bilirubin AST Alkaline Phosphatase Troponin T C-Reactive Protein Total Protein Albumin LDL Cholesterol Direct HDL Cholesterol Vitamin B12 Folate TSH Urine WBC (Auto) Urine Creatinine Urine Total Protein [place] Screen [place] Titer Complement C3 Complement C4 02/13/19 02/14/19 02/14/19 23:47 04:03 04:03 WBC RBC Hgb Hct RDW 16.0 H Plt Count Seg Neuts % (Manual) 94.0 H Lymphocytes % (Manual) 2.0 L Seg Neutrophils # Man 8.9 H Lymphocytes # (Manual) 0.2 L PT INR APTT Thrombin Time POC ABG pH ABG pH POC ABG pCO2 POC ABG pO2 ABG pO2 ABG HCO3 ABG O2 Saturation ABG Base Excess ABG Hemoglobin Oxyhemoglobin Sodium Potassium 3.4 L Chloride 108.7 H Carbon Dioxide 21 L BUN 96 H Creatinine Glucose 129 H POC Glucose 144 H Lactic Acid Calcium 8.2 L Magnesium Iron TIBC Direct Bilirubin AST 65 H Alkaline Phosphatase 164 H Troponin T C-Reactive Protein Total Protein Albumin 1.7 L LDL Cholesterol Direct HDL Cholesterol Vitamin B12 Folate TSH Urine WBC (Auto) Urine Creatinine Urine Total Protein [place] Screen [place] Titer Complement C3 Complement C4 02/14/19 02/14/19 02/14/19 04:03 05:10 11:51 WBC RBC Hgb Hct RDW Plt Count Seg Neuts % (Manual) Lymphocytes % (Manual) Seg Neutrophils # Man Lymphocytes # (Manual) PT INR APTT Thrombin Time POC ABG pH ABG pH POC ABG pCO2 POC ABG pO2 ABG pO2 ABG HCO3 ABG O2 Saturation ABG Base Excess ABG Hemoglobin Oxyhemoglobin Sodium Potassium Chloride Carbon Dioxide BUN Creatinine Glucose POC Glucose 145 H 192 H Lactic Acid Calcium Magnesium 1.60 L Iron TIBC Direct Bilirubin AST Alkaline Phosphatase Troponin T C-Reactive Protein Total Protein Albumin LDL Cholesterol Direct HDL Cholesterol Vitamin B12 Folate TSH Urine WBC (Auto) Urine Creatinine Urine Total Protein [place] Screen [place] Titer Complement C3 Complement C4 02/14/19 02/14/19 02/15/19 17:42 23:33 05:33 WBC RBC Hgb Hct RDW 15.9 H Plt Count Seg Neuts % (Manual) 95.0 H Lymphocytes % (Manual) 1.0 L Seg Neutrophils # Man 7.9 H Lymphocytes # (Manual) 0.1 L PT INR APTT Thrombin Time POC ABG pH ABG pH POC ABG pCO2 POC ABG pO2 ABG pO2 ABG HCO3 ABG O2 Saturation ABG Base Excess ABG Hemoglobin Oxyhemoglobin Sodium Potassium Chloride Carbon Dioxide BUN Creatinine Glucose POC Glucose 229 H 204 H Lactic Acid Calcium Magnesium Iron TIBC Direct Bilirubin AST Alkaline Phosphatase Troponin T C-Reactive Protein Total Protein Albumin LDL Cholesterol Direct HDL Cholesterol Vitamin B12 Folate TSH Urine WBC (Auto) Urine Creatinine Urine Total Protein [place] Screen [place] Titer Complement C3 Complement C4 02/15/19 02/15/19 02/15/19 05:33 05:41 12:30 WBC RBC Hgb Hct RDW Plt Count Seg Neuts % (Manual) Lymphocytes % (Manual) Seg Neutrophils # Man Lymphocytes # (Manual) PT INR APTT Thrombin Time POC ABG pH ABG pH POC ABG pCO2 POC ABG pO2 ABG pO2 ABG HCO3 ABG O2 Saturation ABG Base Excess ABG Hemoglobin Oxyhemoglobin Sodium Potassium Chloride 108.2 H Carbon Dioxide BUN 91 H Creatinine Glucose 197 H POC Glucose 209 H 168 H Lactic Acid Calcium 8.2 L Magnesium Iron TIBC Direct Bilirubin AST 61 H Alkaline Phosphatase 215 H Troponin T C-Reactive Protein Total Protein Albumin 1.9 L LDL Cholesterol Direct HDL Cholesterol Vitamin B12 Folate TSH Urine WBC (Auto) Urine Creatinine Urine Total Protein [place] Screen [place] Titer Complement C3 Complement C4 02/15/19 02/15/19 02/16/19 18:17 23:53 04:58 WBC RBC Hgb Hct RDW 15.7 H Plt Count Seg Neuts % (Manual) 93.0 H Lymphocytes % (Manual) 5.0 L Seg Neutrophils # Man Lymphocytes # (Manual) 0.4 L PT INR APTT Thrombin Time POC ABG pH ABG pH POC ABG pCO2 POC ABG pO2 ABG pO2 ABG HCO3 ABG O2 Saturation ABG Base Excess ABG Hemoglobin Oxyhemoglobin Sodium Potassium Chloride Carbon Dioxide BUN Creatinine Glucose POC Glucose 161 H 160 H Lactic Acid Calcium Magnesium Iron TIBC Direct Bilirubin AST Alkaline Phosphatase Troponin T C-Reactive Protein Total Protein Albumin LDL Cholesterol Direct HDL Cholesterol Vitamin B12 Folate TSH Urine WBC (Auto) Urine Creatinine Urine Total Protein [place] Screen [place]iter Complement C3 Complement C4 02/16/19 02/16/19 02/16/19 04:58 12:27 17:08 WBC RBC Hgb Hct RDW Plt Count Seg Neuts % (Manual) Lymphocytes % (Manual) Seg Neutrophils # Man Lymphocytes # (Manual) PT INR APTT Thrombin Time POC ABG pH ABG pH POC ABG pCO2 POC ABG pO2 ABG pO2 ABG HCO3 ABG O2 Saturation ABG Base Excess ABG Hemoglobin Oxyhemoglobin Sodium Potassium Chloride 108.3 H Carbon Dioxide BUN 90 H Creatinine Glucose 126 H POC Glucose 125 H 180 H Lactic Acid Calcium 8.1 L Magnesium Iron TIBC Direct Bilirubin AST 52 H Alkaline Phosphatase 188 H Troponin T C-Reactive Protein Total Protein Albumin 2.0 L LDL Cholesterol Direct HDL Cholesterol Vitamin B12 Folate TSH Urine WBC (Auto) Urine Creatinine Urine Total Protein [place] Screen [place]iter Complement C3 Complement C4 02/16/19 02/16/19 02/17/19 21:52 23:51 04:43 WBC RBC 3.48 L Hgb Hct RDW 15.8 H Plt Count Seg Neuts % (Manual) 87.0 H Lymphocytes % (Manual) 6.0 L Seg Neutrophils # Man Lymphocytes # (Manual) 0.5 L PT INR APTT Thrombin Time POC ABG pH ABG pH POC ABG pCO2 POC ABG pO2 ABG pO2 ABG HCO3 ABG O2 Saturation ABG Base Excess ABG Hemoglobin Oxyhemoglobin Sodium Potassium Chloride Carbon Dioxide BUN Creatinine Glucose POC Glucose 177 H 161 H Lactic Acid Calcium Magnesium Iron TIBC Direct Bilirubin AST Alkaline Phosphatase Troponin T C-Reactive Protein Total Protein Albumin LDL Cholesterol Direct HDL Cholesterol Vitamin B12 Folate TSH Urine WBC (Auto) Urine Creatinine Urine Total Protein [place] Screen [place]iter Complement C3 Complement C4 02/17/19 02/17/19 02/17/19 04:43 05:05 18:16 WBC RBC Hgb Hct RDW Plt Count Seg Neuts % (Manual) Lymphocytes % (Manual) Seg Neutrophils # Man Lymphocytes # (Manual) PT INR APTT Thrombin Time POC ABG pH ABG pH POC ABG pCO2 POC ABG pO2 ABG pO2 ABG HCO3 ABG O2 Saturation ABG Base Excess ABG Hemoglobin Oxyhemoglobin Sodium Potassium Chloride 110.2 H Carbon Dioxide 21 L BUN 90 H Creatinine Glucose 164 H POC Glucose 166 H 123 H Lactic Acid Calcium 8.2 L Magnesium Iron TIBC Direct Bilirubin AST 59 H Alkaline Phosphatase 224 H Troponin T C-Reactive Protein Total Protein 6.2 L Albumin 1.9 L LDL Cholesterol Direct HDL Cholesterol Vitamin B12 Folate TSH Urine WBC (Auto) Urine Creatinine Urine Total Protein [place] Screen [place]iter Complement C3 Complement C4 02/17/19 02/18/19 02/18/19 22:15 00:14 05:23 WBC RBC Hgb Hct RDW Plt Count Seg Neuts % (Manual) Lymphocytes % (Manual) Seg Neutrophils # Man Lymphocytes # (Manual) PT INR APTT Thrombin Time POC ABG pH ABG pH POC ABG pCO2 POC ABG pO2 ABG pO2 ABG HCO3 ABG O2 Saturation ABG Base Excess ABG Hemoglobin Oxyhemoglobin Sodium Potassium Chloride Carbon Dioxide BUN Creatinine Glucose POC Glucose 135 H 142 H 175 H Lactic Acid Calcium Magnesium Iron TIBC Direct Bilirubin AST Alkaline Phosphatase Troponin T C-Reactive Protein Total Protein Albumin LDL Cholesterol Direct HDL Cholesterol Vitamin B12 Folate TSH Urine WBC (Auto) Urine Creatinine Urine Total Protein [place] Screen [place]iter Complement C3 Complement C4 02/18/19 02/18/19 02/18/19 11:20 17:14 22:03 WBC RBC Hgb Hct RDW Plt Count Seg Neuts % (Manual) Lymphocytes % (Manual) Seg Neutrophils # Man Lymphocytes # (Manual) PT INR APTT Thrombin Time POC ABG pH ABG pH POC ABG pCO2 POC ABG pO2 ABG pO2 ABG HCO3 ABG O2 Saturation ABG Base Excess ABG Hemoglobin Oxyhemoglobin Sodium Potassium Chloride Carbon Dioxide BUN Creatinine Glucose POC Glucose 139 H 139 H 150 H Lactic Acid Calcium Magnesium Iron TIBC Direct Bilirubin AST Alkaline Phosphatase Troponin T C-Reactive Protein Total Protein Albumin LDL Cholesterol Direct HDL Cholesterol Vitamin B12 Folate TSH Urine WBC (Auto) Urine Creatinine Urine Total Protein [place] Screen [place]iter Complement C3 Complement C4 02/18/19 02/19/19 02/19/19 23:53 05:15 11:19 WBC RBC Hgb Hct RDW Plt Count Seg Neuts % (Manual) Lymphocytes % (Manual) Seg Neutrophils # Man Lymphocytes # (Manual) PT INR APTT Thrombin Time POC ABG pH ABG pH POC ABG pCO2 POC ABG pO2 ABG pO2 ABG HCO3 ABG O2 Saturation ABG Base Excess ABG Hemoglobin Oxyhemoglobin Sodium Potassium Chloride Carbon Dioxide BUN Creatinine Glucose POC Glucose 140 H 161 H 146 H Lactic Acid Calcium Magnesium Iron TIBC Direct Bilirubin AST Alkaline Phosphatase Troponin T C-Reactive Protein Total Protein Albumin LDL Cholesterol Direct HDL Cholesterol Vitamin B12 Folate TSH Urine WBC (Auto) Urine Creatinine Urine Total Protein [place] Screen [place]iter Complement C3 Complement C4 02/19/19 02/20/19 02/20/19 17:34 01:11 05:40 WBC RBC Hgb Hct RDW Plt Count Seg Neuts % (Manual) Lymphocytes % (Manual) Seg Neutrophils # Man Lymphocytes # (Manual) PT INR APTT Thrombin Time POC ABG pH ABG pH POC ABG pCO2 POC ABG pO2 ABG pO2 ABG HCO3 ABG O2 Saturation ABG Base Excess ABG Hemoglobin Oxyhemoglobin Sodium Potassium Chloride Carbon Dioxide BUN Creatinine Glucose POC Glucose 133 H 137 H 150 H Lactic Acid Calcium Magnesium Iron TIBC Direct Bilirubin AST Alkaline Phosphatase Troponin T C-Reactive Protein Total Protein Albumin LDL Cholesterol Direct HDL Cholesterol Vitamin B12 Folate TSH Urine WBC (Auto) Urine Creatinine Urine Total Protein [place] Screen [place] Titer Complement C3 Complement C4 02/20/19 02/20/19 02/20/19 07:05 07:05 11:27 WBC RBC 3.34 L Hgb 10.0 L Hct RDW 16.4 H Plt Count Seg Neuts % (Manual) 87.0 H Lymphocytes % (Manual) 4.0 L Seg Neutrophils # Man Lymphocytes # (Manual) 0.3 L PT INR APTT Thrombin Time POC ABG pH ABG pH POC ABG pCO2 POC ABG pO2 ABG pO2 ABG HCO3 ABG O2 Saturation ABG Base Excess ABG Hemoglobin Oxyhemoglobin Sodium Potassium Chloride 112.1 H Carbon Dioxide BUN 84 H Creatinine Glucose 150 H POC Glucose 141 H Lactic Acid Calcium Magnesium Iron TIBC Direct Bilirubin AST Alkaline Phosphatase Troponin T C-Reactive Protein Total Protein Albumin LDL Cholesterol Direct HDL Cholesterol Vitamin B12 Folate TSH Urine WBC (Auto) Urine Creatinine Urine Total Protein [place] Screen [place] Titer Complement C3 Complement C4 02/20/19 02/20/19 02/20/19 18:19 21:57 23:02 WBC RBC Hgb Hct RDW Plt Count Seg Neuts % (Manual) Lymphocytes % (Manual) Seg Neutrophils # Man Lymphocytes # (Manual) PT INR APTT Thrombin Time POC ABG pH ABG pH POC ABG pCO2 POC ABG pO2 ABG pO2 ABG HCO3 ABG O2 Saturation ABG Base Excess ABG Hemoglobin Oxyhemoglobin Sodium Potassium Chloride Carbon Dioxide BUN Creatinine Glucose POC Glucose 170 H 150 H 137 H Lactic Acid Calcium Magnesium Iron TIBC Direct Bilirubin AST Alkaline Phosphatase Troponin T C-Reactive Protein Total Protein Albumin LDL Cholesterol Direct HDL Cholesterol Vitamin B12 Folate TSH Urine WBC (Auto) Urine Creatinine Urine Total Protein [place] Screen [place] Complement C3 Complement C4 02/21/19 02/21/19 02/21/19 05:44 07:10 07:10 WBC RBC 3.19 L Hgb 9.4 L Hct 29.2 L RDW 16.2 H Plt Count Seg Neuts % (Manual) 91.0 H Lymphocytes % (Manual) 7.0 L Seg Neutrophils # Man Lymphocytes # (Manual) 0.5 L PT INR APTT Thrombin Time POC ABG pH ABG pH POC ABG pCO2 POC ABG pO2 ABG pO2 ABG HCO3 ABG O2 Saturation ABG Base Excess ABG Hemoglobin Oxyhemoglobin Sodium Potassium Chloride 112.4 H Carbon Dioxide 21 L BUN 86 H Creatinine Glucose 126 H POC Glucose 129 H Lactic Acid Calcium 8.1 L Magnesium Iron TIBC Direct Bilirubin AST 56 H Alkaline Phosphatase 150 H Troponin T C-Reactive Protein Total Protein 5.7 L Albumin 1.9 L LDL Cholesterol Direct HDL Cholesterol Vitamin B12 Folate TSH Urine WBC (Auto) Urine Creatinine Urine Total Protein [place] Screen [place] Titer Complement C3 Complement C4 02/21/19 02/21/19 02/22/19 11:28 16:50 00:54 WBC RBC Hgb Hct RDW Plt Count Seg Neuts % (Manual) Lymphocytes % (Manual) Seg Neutrophils # Man Lymphocytes # (Manual) PT INR APTT Thrombin Time POC ABG pH ABG pH POC ABG pCO2 POC ABG pO2 ABG pO2 ABG HCO3 ABG O2 Saturation ABG Base Excess ABG Hemoglobin Oxyhemoglobin Sodium Potassium Chloride Carbon Dioxide BUN Creatinine Glucose POC Glucose 114 H 111 H 51 L Lactic Acid Calcium Magnesium Iron TIBC Direct Bilirubin AST Alkaline Phosphatase Troponin T C-Reactive Protein Total Protein Albumin LDL Cholesterol Direct HDL Cholesterol Vitamin B12 Folate TSH Urine WBC (Auto) Urine Creatinine Urine Total Protein [place] Screen [place] Titer Complement C3 Complement C4 02/22/19 02/22/19 02/22/19 00:59 04:13 04:13 WBC RBC 3.35 L Hgb 9.9 L Hct RDW 16.8 H Plt Count Seg Neuts % (Manual) 97.0 H Lymphocytes % (Manual) 1.0 L Seg Neutrophils # Man 9.7 H Lymphocytes # (Manual) 0.1 L PT INR APTT Thrombin Time POC ABG pH ABG pH POC ABG pCO2 POC ABG pO2 ABG pO2 ABG HCO3 ABG O2 Saturation ABG Base Excess ABG Hemoglobin Oxyhemoglobin Sodium Potassium Chloride 110.8 H Carbon Dioxide BUN 83 H Creatinine Glucose 157 H POC Glucose 144 H Lactic Acid Calcium Magnesium Iron TIBC Direct Bilirubin AST Alkaline Phosphatase Troponin T C-Reactive Protein Total Protein Albumin LDL Cholesterol Direct HDL Cholesterol Vitamin B12 Folate TSH Urine WBC (Auto) Urine Creatinine Urine Total Protein [place] Screen [place] Titer Complement C3 Complement C4 02/22/19 02/22/19 02/22/19 05:01 11:49 17:33 WBC RBC Hgb Hct RDW Plt Count Seg Neuts % (Manual) Lymphocytes % (Manual) Seg Neutrophils # Man Lymphocytes # (Manual) PT INR APTT Thrombin Time POC ABG pH ABG pH POC ABG pCO2 POC ABG pO2 ABG pO2 ABG HCO3 ABG O2 Saturation ABG Base Excess ABG Hemoglobin Oxyhemoglobin Sodium Potassium Chloride Carbon Dioxide BUN Creatinine Glucose POC Glucose 135 H 148 H 123 H Lactic Acid Calcium Magnesium Iron TIBC Direct Bilirubin AST Alkaline Phosphatase Troponin T C-Reactive Protein Total Protein Albumin LDL Cholesterol Direct HDL Cholesterol Vitamin B12 Folate TSH Urine WBC (Auto) Urine Creatinine Urine Total Protein [place] Screen [place] Titer Complement C3 Complement C4 02/22/19 02/22/19 02/23/19 21:06 23:52 05:19 WBC RBC Hgb Hct RDW Plt Count Seg Neuts % (Manual) Lymphocytes % (Manual) Seg Neutrophils # Man Lymphocytes # (Manual) PT INR APTT Thrombin Time POC ABG pH ABG pH POC ABG pCO2 POC ABG pO2 ABG pO2 ABG HCO3 ABG O2 Saturation ABG Base Excess ABG Hemoglobin Oxyhemoglobin Sodium Potassium Chloride Carbon Dioxide BUN Creatinine Glucose POC Glucose 133 H 155 H 136 H Lactic Acid Calcium Magnesium Iron TIBC Direct Bilirubin AST Alkaline Phosphatase Troponin T C-Reactive Protein Total Protein Albumin LDL Cholesterol Direct HDL Cholesterol Vitamin B12 Folate TSH Urine WBC (Auto) Urine Creatinine Urine Total Protein [place] Screen [place] Titer Complement C3 Complement C4 02/23/19 02/23/19 02/24/19 17:50 21:40 00:02 WBC RBC Hgb Hct RDW Plt Count Seg Neuts % (Manual) Lymphocytes % (Manual) Seg Neutrophils # Man Lymphocytes # (Manual) PT INR APTT Thrombin Time POC ABG pH ABG pH POC ABG pCO2 POC ABG pO2 ABG pO2 ABG HCO3 ABG O2 Saturation ABG Base Excess ABG Hemoglobin Oxyhemoglobin Sodium Potassium Chloride Carbon Dioxide BUN Creatinine Glucose POC Glucose 135 H 163 H 152 H Lactic Acid Calcium Magnesium Iron TIBC Direct Bilirubin AST Alkaline Phosphatase Troponin T C-Reactive Protein Total Protein Albumin LDL Cholesterol Direct HDL Cholesterol Vitamin B12 Folate TSH Urine WBC (Auto) Urine Creatinine Urine Total Protein [place] Screen [place]iter Complement C3 Complement C4 02/24/19 02/24/19 02/24/19 05:03 10:52 10:52 WBC RBC 2.95 L Hgb 8.9 L Hct 27.8 L RDW 17.7 H Plt Count 123 L Seg Neuts % (Manual) Lymphocytes % (Manual) Seg Neutrophils # Man Lymphocytes # (Manual) PT INR APTT Thrombin Time POC ABG pH ABG pH POC ABG pCO2 POC ABG pO2 ABG pO2 ABG HCO3 ABG O2 Saturation ABG Base Excess ABG Hemoglobin Oxyhemoglobin Sodium 149 H Potassium Chloride 114.7 H Carbon Dioxide BUN 80 H Creatinine Glucose 109 H POC Glucose 140 H Lactic Acid Calcium 8.1 L Magnesium Iron TIBC Direct Bilirubin AST Alkaline Phosphatase Troponin T C-Reactive Protein Total Protein Albumin LDL Cholesterol Direct HDL Cholesterol Vitamin B12 Folate TSH Urine WBC (Auto) Urine Creatinine Urine Total Protein [place] Screen [place] Titer Complement C3 Complement C4
--- NOTE | 2019-02-24 13:18 | Post Operative Note ---
Date of procedure: 02/24/19 Pre-op diagnosis: bleeding from neck incision, tracheostomy site Post-op diagnosis: same Findings: Area of venous oozing from subcutaneous tissue/deep dermal skin later. No bleeding from ligated vessels. No bleeding from tracheostomy tract. Procedure: exploration of neck wound Anesthesia: CATARINAA Surgeon: MIR CARUSO Estimated blood loss: minimal Pathology: none Condition: stable Disposition: no change (ICU)
--- NOTE | 2019-02-24 13:44 | Operative Report ---
PREOPERATIVE DIAGNOSIS: Bleeding from neck incision, tracheostomy site. POSTOPERATIVE DIAGNOSIS: Bleeding from neck incision, tracheostomy site. FINDINGS: Area of venous oozing from the subcutaneous tissues/deep dermal skin layer. No bleeding from the ligated vessels. No bleeding from tracheostomy tract. PROCEDURE: Exploration of neck wound. ANESTHESIA: General endotracheal anesthesia. SURGEON: Lisha Doran DO ESTIMATED BLOOD LOSS: Minimal. PATHOLOGY: None. CONDITION ON DISPOSITION: The patient is stable to ICU. HISTORY OF PRESENT ILLNESS AND INDICATION: The patient is a 53-year-old female who underwent percutaneous converted to open tracheostomy placement on Tuesday02/21/2019. During the initial tracheostomy procedure, the patient had large anterior jugular vein overlying the trachea, which led to bleeding. Those vessels were ligated in the OR and the remainder of the tracheostomy procedure was unremarkable. There was no bleeding at the end of the case. The patient did well until today, postop day #3 when nursing notified me of bleeding from around the tracheostomy site. The tracheostomy sponge needed to be changed multiple times due to bleeding. The patient remained hemodynamically stable and labs showed a hemoglobin of 8.9 from 9.9, 2 days prior. Normal coagulation parameters. It was decided to take the patient to the operating room and explore the neck incision in a controlled environment. The procedure, its risks, benefits and alternatives were discussed with the patient's son Timmy and consent obtained over the telephone. PROCEDURE IN DETAIL: The patient was identified in her ICU bed and taken down to the operating room. Anesthesia was induced and the neck, tracheostomy were prepped with Betadine and draped in the usual sterile fashion. The time-out was performed. The sutures from the tracheostomy flanges to the skin were cut along with the skin sutures. The wound was opened and examined. Any blood clots that were in the area were evacuated. Upon exploration of the wound, there was a small area in the subcutaneous tissues. The superior flap of the incision that was oozing. This was venous blood. This was controlled with electrocautery until no further bleeding was seen. The remainder of the wound was examined and no other areas of bleeding were seen. All clot was evacuated. The tracheostomy tract muscle fascia and subcutaneous tissue along with skin were thoroughly examined. The wound was irrigated with a small amount of saline. No additional bleeding was seen. Gauze was placed in the subcutaneous tissue around the tracheostomy for several minutes and compression held. The gauze was removed and was clean. Surgicel was placed around the tracheostomy tract as well as lined in the subcutaneous tissue along the inferior and superior flaps of the incision. The skin was then closed loosely using interrupted 3-0 Prolene sutures. Steri-Strips were applied across the incision. A drain sponge was applied underneath the flanges of the tracheostomy tube and the tracheostomy tube secured using the neck strap. At the end of the case, all sponge, instrument, sharp counts were correct x 2. The patient was awoken from anesthesia and taken back to the ICU in stable condition. The outcome of the surgery was discussed with the patient's mother Socrates Harris at the bedside. JOB# [id number] FOREIGN/YESICA
--- NOTE | 2019-02-24 15:44 | Progress Note ---
Assessment and Plan Assessment and plan: 53 year old woman who was brought in by her family for unsteady gait, fatigue, and withdrawn behavior. I finally noticed difficult to it fine motor skills throughout that night she was having difficulty expressing herself. she was at a restaurant family I will continue to point to the menu. She became more disoriented and less responsive prompting family to bring her to the emergency room - Acute respiratory failure on MV > 96 hours Continue mechanical ventilator, plan for transfer to LTAC for slow weaning, Status post trach and PEG 02/21 Bleeding from tracheostomy Oozing vessel was ligated on 02/24, discussed with general surgeon severe Sepsis Strep pneumoniae bacteremia Right neck cellulitis vs neck LAD PNA meningitis TERRENCE neg for vegatations * Has completed antibiotics. 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 fib. Will need anticoagulation when bleeding risk is re duced -Atrial fibrillation with RVR Management per Cardiology History of lupus? families is unclear on this medical history, but know that she has some form of autoimmune disease Compliments are reduced, CHESTER is positive, anti ds dna pending, highly suspect lupus cont steroids Acute metabolic encephalopathy Likely due to sepsis, eeg neg for seizure, neuro input appreciated Acute respiratory failure on MV > 96 hours cont vent per pulmonology Type 2 [place] - cardiology input appreciated, rx the underlying cause Thrombocytopenia likely due to sepsis or autoimmune phenomenon, hematology input appreciated, hiv-negative, fibrinogen level is not low, PT PTT is normal. Status post platelet transfusion, improved Macrocytic anemia Hematology input appreciated, folic acid was low, repleted Hypothyroidism TSH elevated, synthroid dose increased -repeat TFTs in 4-6 wks Hypokalemia, was supplemented Prognosis is guarded The high probability of a clinically significant, sudden or life threatening deterioration of the [CV, Neurology, renal] system(s) required my full and direct attention, intervention and personal management. The aggregate critical care time was [45] minutes. This time is in addition to time spent performing reported procedures but includes the following: [x] Data Review and interpretation [x] Patient assessment and monitoring of vital signs [x] Documentation [x] Medication orders and management History Interval history: no fever, no vomiting, no agitation -no seizures or vomiting Hospitalist Physical - Physical exam Narrative exam: General.: no distress, nontoxic HEENT: Moist mucous membranes, extraocular muscles intact, no lymphadenopathy Neck: supple, trache noted Cardiac: S1-S2 heard Lungs: clear to auscultation bilaterally Abdomen: soft , nontender, nondistended, bowel sounds positive, PEG in place Extremities: no edema clubbing or cyanosis Skin: no rash or lesions Neurologic: left hemiparesis, opens eyes, obeys commands Psych: calm, and cooperative - Constitutional Vitals: Temp Pulse Resp BP Pulse Ox 97.4 F L 62 14 166/83 100 02/24/19 12:50 02/24/19 14:00 02/24/19 14:00 02/24/19 14:00 02/24/19 14:00 General appearance: Present: mild distress, well-nourished, other (Intubated) Results - Labs CBC & Chem 7: 02/24/19 10:52 02/24/19 10:52 Labs: Laboratory Last Values WBC 7.8 K/mm3 (4.5-11.0) 02/24/19 10:52 RBC 2.95 M/mm3 (3.65-5.03) L 02/24/19 10:52 Hgb 8.9 gm/dl (10.1-14.3) L 02/24/19 10:52 Hct 27.8 % (30.3-42.9) L 02/24/19 10:52 MCV 94 fl (79-97) 02/24/19 10:52 MCH 30 pg (28-32) 02/24/19 10:52 MCHC 32 % (30-34) 02/24/19 10:52 RDW 17.7 % (13.2-15.2) H 02/24/19 10:52 Plt Count 123 K/mm3 (140-440) L 02/24/19 10:52 Lymph % (Auto) Cable Wirer 02/05/19 13:02 [place] % (Auto) Cable Wirer 02/05/19 13:02 Eos % (Auto) Cable Wirer 02/05/19 13:02 Baso % (Auto) Cable Wirer 02/05/19 13:02 Lymph # Cable Wirer 02/05/19 13:02 [place] # Cable Wirer 02/05/19 13:02 Eos # Cable Wirer 02/05/19 13:02 Baso # Cable Wirer 02/05/19 13:02 Add Manual Diff Complete 02/22/19 04:13 Total Counted 100 02/22/19 04:13 Seg Neutrophils % Cable Wirer 02/22/19 04:13 Seg Neuts % (Manual) 97.0 % (40.0-70.0) H 02/22/19 04:13 1.0 % 02/22/19 04:13 1.0 % (13.4-35.0) L 02/22/19 04:13 Reactive Lymphs % (Man) 0 % 02/22/19 04:13 0 % (0.0-7.3) 02/22/19 04:13 0 % (0.0-4.3) 02/22/19 04:13 0 % (0.0-1.8) 02/22/19 04:13 1.0 % 02/22/19 04:13 0 % 02/22/19 04:13 0 % 02/22/19 04:13 0 % 02/22/19 04:13 Nucleated RBC % Not Reportable 02/22/19 04:13 Seg Neutrophils # Cable Wirer 02/05/19 13:02 Seg Neutrophils # Man 9.7 K/mm3 (1.8-7.7) H 02/22/19 04:13 Band Neutrophils # 0.1 K/mm3 02/22/19 04:13 0.1 K/mm3 (1.2-5.4) L 02/22/19 04:13 Abs React Lymphs (Man) 0.0 K/mm3 02/22/19 04:13 0.0 K/mm3 (0.0-0.8) 02/22/19 04:13 0.0 K/mm3 (0.0-0.4) 02/22/19 04:13 0.0 K/mm3 (0.0-0.1) 02/22/19 04:13 0.1 K/mm3 02/22/19 04:13 0.0 K/mm3 02/22/19 04:13 0.0 K/mm3 02/22/19 04:13 Blast Cells # 0.0 K/mm3 02/22/19 04:13 WBC Morphology Not Reportable 02/22/19 04:13 Hypersegmented Neuts Not Reportable 02/22/19 04:13 Hyposegmented Neuts Not Reportable 02/22/19 04:13 Hypogranular Neuts Not Reportable 02/22/19 04:13 Cancelled 02/01/19 07:16 Not Reportable 02/22/19 04:13 Not Reportable 02/22/19 04:13 Not Reportable 02/22/19 04:13 Not Reportable 02/22/19 04:13 Not Reportable 02/22/19 04:13 Not Reportable 02/22/19 04:13 Consistent w auto 02/22/19 04:13 Not Reportable 02/22/19 04:13 Plt Clumps, EDTA Not Reportable 02/22/19 04:13 Few 02/22/19 04:13 Not Reportable 02/22/19 04:13 Not Reportable 02/22/19 04:13 Plt Morphology Comment Not Reportable 02/22/19 04:13 RBC Morphology Not Reportable 02/22/19 04:13 Dimorphic RBCs Not Reportable 02/22/19 04:13 Not Reportable 02/22/19 04:13 Not Reportable 02/22/19 04:13 Not Reportable 02/22/19 04:13 Cancelled 02/01/19 07:16 Not Reportable 02/22/19 04:13 Not Reportable 02/22/19 04:13 Not Reportable 02/22/19 04:13 Not Reportable 02/22/19 04:13 Not Reportable 02/22/19 04:13 Not Reportable 02/22/19 04:13 Rare 02/22/19 04:13 Not Reportable 02/22/19 04:13 Not Reportable 02/22/19 04:13 Cancelled 02/01/19 07:16 Not Reportable 02/22/19 04:13 Not Reportable 02/22/19 04:13 Not Reportable 02/22/19 04:13 Not Reportable 02/22/19 04:13 Not Reportable 02/22/19 04:13 Not Reportable 02/22/19 04:13 Not Reportable 02/22/19 04:13 Acanthocytes (Spur) Not Reportable 02/22/19 04:13 Rouleaux Not Reportable 02/22/19 04:13 Not Reportable 02/22/19 04:13 1+ 02/22/19 04:13 Not Reportable 02/22/19 04:13 ESR 76 mm/Hr (0-20) 02/01/19 16:51 Not Reportable 02/22/19 04:13 Hem Pathologist Commnt No 02/22/19 04:13 PT 13.7 Sec. (12.2-14.9) 02/24/19 10:52 INR 1.08 (0.87-1.13) 02/24/19 10:52 APTT 33.1 Sec. (24.2-36.6) 02/06/19 07:35 20.0 Sec. (15.1-19.6) H 02/01/19 07:16 479 mg/dl (211-480) 02/03/19 14:42 POC ABG pH 7.418 (7.35-7.45) 02/12/19 05:36 ABG pH 7.440 pH Units (7.350-7.450) 02/11/19 04:10 POC ABG pCO2 36.9 (35-45) 02/12/19 05:36 ABG pCO2 37.4 mm Hg 02/11/19 04:10 POC ABG pO2 92 (80-105) 02/12/19 05:36 ABG pO2 69.4 mm Hg (80.0-90.0) L 02/11/19 04:10 POC ABG HCO3 23.8 (22-26 mml/L) 02/12/19 05:36 ABG HCO3 24.8 mmol/L (20.0-26.0) 02/11/19 04:10 POC ABG Total CO2 25 (23-27mmol/L) 02/12/19 05:36 POC ABG O2 Sat 97 02/12/19 05:36 ABG O2 Saturation 94.2 % (95.0-99.0) L 02/11/19 04:10 ABG O2 Content 14.3 (0.0-44) 02/11/19 04:10 POC ABG Base Excess -1 ((-2) - (+3)mmol/L) 02/12/19 05:36 ABG Base Excess 0.8 mmol/L (-2.0-3.0) 02/11/19 04:10 ABG Hemoglobin 11.0 gm/dl (12.0-16.0) L 02/11/19 04:10 ABG Carboxyhemoglobin 1.5 % (0.0-5.0) 02/11/19 04:10 ABG Methemoglobin 0.7 % (0.0-1.5) 02/11/19 04:10 92.1 % (95.0-99.0) L 02/11/19 04:10 25 % 02/12/19 05:36 Sodium 149 mmol/L (137-145) H 02/24/19 10:52 Potassium 4.3 mmol/L (3.6-5.0) 02/24/19 10:52 Chloride 114.7 mmol/L (98-107) H 02/24/19 10:52 Carbon Dioxide 25 mmol/L (22-30) 02/24/19 10:52 14 mmol/L 02/24/19 10:52 BUN 80 mg/dL (7-17) H 02/24/19 10:52 0.9 mg/dL (0.7-1.2) 02/24/19 10:52 Estimated GFR > 60 ml/min 02/24/19 10:52 89 % 02/24/19 10:52 Glucose 109 mg/dL (65-100) H 02/24/19 10:52 POC Glucose 92 (70-105) 02/24/19 13:35 Lactic Acid 1.40 mmol/L (0.7-2.0) 02/01/19 20:57 Calcium 8.1 mg/dL (8.4-10.2) L 02/24/19 10:52 Phosphorus 3.20 mg/dL (2.5-4.5) 02/20/19 07:05 Magnesium 1.70 mg/dL (1.7-2.3) 02/20/19 07:05 Iron 11 ug/dL (37-170) L 02/03/19 14:42 TIBC 88 mcg/dL (250-450) L 02/03/19 14:42 332.9 ng/mL (13.0-400.0) 02/03/19 14:42 0.30 mg/dL (0.1-1.2) 02/21/19 07:10 0.7 mg/dL (0-0.2) H 02/01/19 07:29 0.5 mg/dL 02/01/19 07:29 AST 56 units/L (5-40) H 02/21/19 07:10 ALT 29 units/L (7-56) 02/21/19 07:10 150 units/L (35-129) H 02/21/19 07:10 0.181 ng/mL (0.00-0.029) H* 02/01/19 07:16 32.30 mg/dL (0.00-1.30) H 02/01/19 17:04 5.7 g/dL (6.3-8.2) L 02/21/19 07:10 1.9 g/dL (3.9-5) L 02/21/19 07:10 0.5 % 02/21/19 07:10 Triglycerides 95 mg/dL (2-149) 02/01/19 07:16 Cholesterol 75 mg/dL (50-199) 02/01/19 07:16 34 mg/dL (50-130) L 02/01/19 07:16 20 mg/dL (40-59) L 02/01/19 07:16 3.75 % 02/01/19 07:16 Vitamin B12 1468 pg/mL (211-911) H 02/03/19 14:42 5.18 ng/mL (7.3-26.0) L 02/03/19 14:42 TSH 8.470 mlU/mL (0.270-4.200) H 02/01/19 07:43 Free T4 1.08 ng/dL (0.76-1.46) 02/01/19 07:43 Sara (Yellow) 02/01/19 09:45 Cloudy (Clear) 02/01/19 09:45 5.0 (5.0-7.0) 02/01/19 09:45 Ur Specific [place] 1.019 (1.003-1.030) 02/01/19 09:45 >500 mg/dL (Negative) 02/01/19 09:45 Neg mg/dL (Negative) 02/01/19 09:45 Neg mg/dL (Negative) 02/01/19 09:45 Mod (Negative) 02/01/19 09:45 Neg (Negative) 02/01/19 09:45 Neg (Negative) 02/01/19 09:45 < 2.0 mg/dL (<2.0) 02/01/19 09:45 Ur Leukocyte Esterase Neg (Negative) 02/01/19 09:45 10.0 /HPF (0.0-6.0) H 02/09/19 13:35 10.0 /HPF (0.0-6.0) 02/09/19 13:35 U Epithel Cells (Auto) 3.0 /HPF (0-13.0) 02/09/19 13:35 Amorphous Crystals 1+ 02/01/19 09:45 Few /HPF 02/09/19 13:35 92.9 mg/dL (0.1-20.0) H 02/09/19 18:54 Protein/Creatinin Ratio 1.25 02/09/19 18:54 116 mg/dL (5-11.8) H 02/09/19 18:54 Turbid 02/05/19 14:10 Colorless 02/05/19 14:10 1250 /mm3 (1-10) 02/05/19 14:10 30 /mm3 (0-0) 02/05/19 14:10 CSF Seg Neutrophils 30.0 % (0-6) 02/05/19 14:10 40.0 % (40-80) 02/05/19 14:10 CSF Reactive Lymphs 0 % 02/05/19 14:10 30.0 % (15-45) 02/05/19 14:10 0 % 02/05/19 14:10 0 % 02/05/19 14:10 C 02/05/19 14:10 38 mg/dL 02/05/19 14:10 140 mg/dL 02/05/19 14:10 Random Vancomycin 9.8 ug/mL (0-40.0) 02/03/19 03:30 CHESTER Screen Positive (Negative) H 02/01/19 17:04 CHESTER Titer 1:320 (Negative) H 02/01/19 17:04 CHESTER Pattern Speckled 02/01/19 17:04 Proteinase 3 (PR3) Ab <1.0 AI (<1.0) 02/01/19 19:28 Myeloperoxidase Ab <1.0 AI (<1.0) 02/01/19 19:28 Double Strand DNA Ab 1 IU/mL (<=4) 02/11/19 04:54 36 mg/dL (83-193) L 02/01/19 16:51 12 mg/dL (15-57) L 02/01/19 16:51 RPR Nonreactive (Nonreactive) 02/02/19 15:45 Hepatitis A IgM Ab Non-reactive (NonReactive) 02/02/19 19:29 Hep Bs Antigen Non-reactive (Negative) 02/02/19 19:29 Hep B Core IgM Ab Non-reactive (NonReactive) 02/02/19 19:29 Non-reactive (NonReactive) 02/02/19 19:29 HIV 1&2 Antibody Rapid Non react (Non React) 02/02/19 15:46 Non react (Non React) 02/02/19 15:46 Flexitest 1 02/02/19 13:02 Blood Type B POSITIVE 02/24/19 10:52 Antibody Screen Negative 02/24/19 10:52 Active Medications - Current Medications Current Medications: Generic Name Dose Route Start Last Admin Trade Name Freq PRN Reason Stop Dose Admin Acetaminophen 650 mg 02/01/19 10:47 02/22/19 21:02 Tylenol PO 650 mg Q4H PRN Administration Pain MILD(1-3)/Fever >100.5/VALENZUELA Albuterol 2.5 mg 02/01/19 10:47 Proventil IH Q4HRT PRN Shortness Of Breath Albuterol/Ipratropium 1 ampul 02/01/19 12:00 02/24/19 07:42 Duoneb *Not For Prn Use* IH 1 ampul Q6HRT AMOL Administration Lipase/Protease/Amylase 1 each 02/22/19 08:27 Pancreemeka Hammond 10,500 Unit FEEDTUBE PRN PRN For Clogged Feeding Tube Diltiazem HCl 60 mg 02/13/19 12:00 02/24/19 13:54 Cardizem PO Not Given Q6H AMOL Fentanyl 50 mcg 02/19/19 16:20 Sublimaze IV ONCE PRN Pain , Severe (7-10) Folic Acid 1 mg 02/06/19 10:00 02/24/19 10:47 Folvite PO 1 mg QDAY AMOL Administration Hydralazine HCl 10 mg 02/13/19 22:15 02/23/19 12:29 Apresoline IV 10 mg Q6H PRN Administration Hypertension Hydrophilic Ointment 1 applic 02/01/19 11:09 02/19/19 21:54 Vaseline Lip Therapy TP 1 applic Q2HR PRN Administration Dry Lips Insulin Glargine 15 units 02/22/19 22:00 02/23/19 21:33 Lantus SUB-Q 15 units QHS AMOL Administration Insulin Human Regular 0 units 02/10/19 19:00 02/24/19 13:55 Humulin R SUB-Q Not Given Q6HR [facility] Protocol Lansoprazole 30 mg 02/23/19 10:00 02/24/19 10:47 Prevacid Solutab FEEDTUBE 30 mg BID AMOL Administration Levothyroxine Sodium 125 mcg 02/07/19 10:00 02/24/19 10:47 Synthroid PO 125 mcg QAM AMOL Administration Multi-Ingred Cream/Lotion/Oil/Oint 1 applic 02/01/19 11:09 02/08/19 21:18 Artificial Tears Ophth Oint OU 1 applic Q4HR PRN Administration Dry Eye(s) Multivitamins 5 ml 02/06/19 10:00 02/24/19 10:46 Centrum Liq PO 5 ml QDAY AMOL Administration Ondansetron HCl 4 mg 02/01/19 10:47 Zofran IV Q8H PRN Nausea And Vomiting Prednisone 20 mg 02/23/19 10:00 02/24/19 10:47 Deltasone PO 20 mg QDAY AMOL Administration Simple Syrup 15 ml 02/22/19 08:27 Simple Syrup FEEDTUBE PRN PRN Hypoglycemia Simple Syrup 30 ml 02/22/19 08:27 Simple Syrup FEEDTUBE PRN PRN Hypoglycemia Sodium Bicarbonate 325 mg 02/22/19 08:27 Sodium Bicarbonate FEEDTUBE PRN PRN For Clogged Feeding Tube Sodium Chloride 10 ml 02/01/19 22:00 02/24/19 10:47 Sodium Chloride Flush Syringe 10 Ml IV 10 ml BID AMOL Administration Sodium Chloride 10 ml 02/01/19 10:47 Sodium Chloride Flush Syringe 10 Ml IV PRN PRN LINE FLUSH Nutrition/Malnutrition Assess - Dietary Evaluation Nutrition/Malnutrition Findings: Nutrition Notes Start: 02/02/19 15:11 Freq: Status: Active Protocol: Document 02/22/19 08:21 LM (Rec: 02/22/19 08:27 LM [email or web address]) Nutrition Notes Initial or Follow up Reassessment Current Diagnosis Acute Kidney Injury, Respiratory Failure Other Pertinent Diagnosis Hypothyroidism, Septic shock, Acute encephalopathy, UTI Current Diet Nepro at 40 ml/hr Labs/Tests BUN 83 BG 157 Pertinent Medications Reviewed Height 5 ft 5 in Weight 95 kg [place] Body Weight (kg) 56.81 BMI 34.8 Subjective/Other Information Nepro running at 40 ml/hr at time of visit. Pt tolerating TF. s/p trach and PEG. Percent of energy/protein needs met: 92%/68% Burn Absent Trauma Absent #1 Nutrition Diagnosis Inadequate oral intake Diagnosis Progress(for reassessment Continues documentation) Is patient on ventilator? Yes Is Patient Ambulatory and/or Out of Bed No REE[facility]) [phone] Calculation Used for Recommendations [facility] Additional Notes Protein Needs: 114g (2g/kg IBW ) Fluid Needs: 1 ml/kcal Nutrition Intervention Change Diet Order: Continue TF Nutrition Support: Nepro at 40ml/hr Flush with 170ml q4h Kcal 1,728 Protein (gm) 78 Fluid (mL) 697 Goal #1 Meet at least 75% of energy and portein needs Anticipated Discharge Needs: TF Follow-Up By: 02/26/19 Additional Comments F/U for TF tolerance
--- NOTE | 2019-02-24 18:09 | Hem/Onc Progress Note ---
Assessment and Plan 1. h/o Thrombocytopenia, sepsis/infection/antibiotic related. Folate level is low, B12 is normal. Serum iron is low, but ferritin is not low. HIV negative. Fibrinogen level is not low. PT, PTT is not abnormal. Supportive care at this time will help the patient. 2. Diabetes. 3. Hypothyroidism. 4. History of renal impairment, on supportive care. 5. Intubation for respiratory issues. 6. Neurology team saw the patient. Neurology thinks it is septic metabolic encephalopathy. I will follow the patient during inpatient stay. 02/24 plt normalized anemia - low folate on replacement pt still - on vent - trach done PEG done - Patient Problems (1) Thrombocytopenia Current Visit: Yes Status: Acute Subjective Date of service: 02/24/19 Principal diagnosis: h/o low plt Interval history: awake Objective - Exam Narrative Exam: Pain - not evaluable General appearance intubated Performance status complete dependent Eyes - no icterus ENT - no bleeding - on vent - TRACH LNs cervical not palpable Neck - no LN Respiratory Normal Breath sounds - CTA anteriorly CVS S1 S2 + Extremities normal temperature General GI Soft - PEG + Rectal deferred female - deferred Skin warm Musculoskeletal rt arm movements + Neurologically not verbal - looks at you - Constitutional Vitals: Last Vital Signs Temp 98.2 F 02/24/19 16:00 Pulse 65 02/24/19 17:30 Resp 14 02/24/19 17:30 BP 166/82 02/24/19 17:30 Pulse Ox 100 02/24/19 17:30 - Labs Lab Results: Laboratory Results - last 24 hr 02/23/19 02/24/19 02/24/19 21:40 00:02 05:03 WBC RBC Hgb Hct MCV MCH MCHC RDW Plt Count PT INR Sodium Potassium Chloride Carbon Dioxide Anion Gap BUN Creatinine Estimated GFR BUN/Creatinine Ratio Glucose POC Glucose 163 H 152 H 140 H Calcium Blood Type Antibody Screen 02/24/19 02/24/19 02/24/19 10:52 10:52 10:52 WBC 7.8 RBC 2.95 L Hgb 8.9 L Hct 27.8 L MCV 94 MCH 30 MCHC 32 RDW 17.7 H Plt Count 123 L PT 13.7 INR 1.08 Sodium 149 H Potassium 4.3 Chloride 114.7 H Carbon Dioxide 25 Anion Gap 14 BUN 80 H Creatinine 0.9 Estimated GFR > 60 BUN/Creatinine Ratio 89 Glucose 109 H POC Glucose Calcium 8.1 L Blood Type Antibody Screen 02/24/19 02/24/19 02/24/19 10:52 13:35 17:41 WBC RBC Hgb Hct MCV MCH MCHC RDW Plt Count PT INR Sodium Potassium Chloride Carbon Dioxide Anion Gap BUN Creatinine Estimated GFR BUN/Creatinine Ratio Glucose POC Glucose 92 115 H Calcium Blood Type B POSITIVE Antibody Screen Negative Medications & Allergies - Medications Allergies/Adverse Reactions: Allergies No Known Allergies Allergy (Verified 08/18/18 09:04) Home Medications: Home Medications Medication Instructions Recorded Confirmed Last Taken Type Levothyroxine [Synthroid] 112 mcg PO QAM 02/01/19 02/01/19 Unknown History Lisinopril [Zestril TAB] 40 mg PO QDAY 02/01/19 02/01/19 Unknown History amLODIPine [Norvasc] 10 mg PO DAILY 02/01/19 02/01/19 Unknown History cloNIDine [Catapres] 1 mg PO QDAY 02/01/19 02/01/19 Unknown History Active Medications: Generic Name Dose Route Start Last Admin Trade Name Freq PRN Reason Stop Dose Admin Acetaminophen 650 mg 02/01/19 10:47 02/22/19 21:02 Tylenol PO 650 mg Q4H PRN Administration Pain MILD(1-3)/Fever >100.5/VALENZUELA Albuterol 2.5 mg 02/01/19 10:47 Proventil IH Q4HRT PRN Shortness Of Breath Albuterol/Ipratropium 1 ampul 02/01/19 12:00 02/24/19 07:42 Duoneb *Not For Prn Use* IH 1 ampul Q6HRT AMOL Administration Lipase/Protease/Amylase 1 each 02/22/19 08:27 Carola Hammond 10,500 Unit FEEDTUBE PRN PRN For Clogged Feeding Tube Diltiazem HCl 60 mg 02/13/19 12:00 02/24/19 13:54 Cardizem PO Not Given Q6H AMOL Fentanyl 50 mcg 02/19/19 16:20 Sublimaze IV ONCE PRN Pain , Severe (7-10) Folic Acid 1 mg 02/06/19 10:00 02/24/19 10:47 Folvite PO 1 mg QDAY AMOL Administration Hydralazine HCl 10 mg 02/13/19 22:15 02/23/19 12:29 Apresoline IV 10 mg Q6H PRN Administration Hypertension Hydrophilic Ointment 1 applic 02/01/19 11:09 02/19/19 21:54 Vaseline Lip Therapy TP 1 applic Q2HR PRN Administration Dry Lips Insulin Glargine 15 units 02/22/19 22:00 02/23/19 21:33 Lantus SUB-Q 15 units QHS AMOL Administration Insulin Human Regular 0 units 02/10/19 19:00 02/24/19 18:01 Humulin R SUB-Q Not Given Q6HR [facility] Protocol Lansoprazole 30 mg 02/23/19 10:00 02/24/19 10:47 Prevacid Solutab FEEDTUBE 30 mg BID AMOL Administration Levothyroxine Sodium 125 mcg 02/07/19 10:00 02/24/19 10:47 Synthroid PO 125 mcg QAM AMOL Administration Multi-Ingred Cream/Lotion/Oil/Oint 1 applic 02/01/19 11:09 02/08/19 21:18 Artificial Tears Ophth Oint OU 1 applic Q4HR PRN Administration Dry Eye(s) Multivitamins 5 ml 02/06/19 10:00 02/24/19 10:46 Centrum Liq PO 5 ml QDAY AMOL Administration Ondansetron HCl 4 mg 02/01/19 10:47 Zofran IV Q8H PRN Nausea And Vomiting Prednisone 20 mg 02/23/19 10:00 02/24/19 10:47 Deltasone PO 20 mg QDAY AMOL Administration Simple Syrup 15 ml 02/22/19 08:27 Simple Syrup FEEDTUBE PRN PRN Hypoglycemia Simple Syrup 30 ml 02/22/19 08:27 Simple Syrup FEEDTUBE PRN PRN Hypoglycemia Sodium Bicarbonate 325 mg 02/22/19 08:27 Sodium Bicarbonate FEEDTUBE PRN PRN For Clogged Feeding Tube Sodium Chloride 10 ml 02/01/19 22:00 02/24/19 10:47 Sodium Chloride Flush Syringe 10 Ml IV 10 ml BID AMOL Administration Sodium Chloride 10 ml 02/01/19 10:47 Sodium Chloride Flush Syringe 10 Ml IV PRN PRN LINE FLUSH
[2019-02-24] MEDS: INSULIN GLARGINE 100 UNITS/ML SUB-Q SCH (21:37)
[2019-02-25] MEDS: IPRATROPIUM/ALBUTEROL SULFATE 3 ML AMPUL.NEB IH SCH ×5 (06:01→20:32)
[2019-02-25] MEDS: hydrALAZINE 20 MG/1 ML INJ IV PRN (06:57)
[2019-02-25] MEDS: dilTIAZem 60 MG TAB PO SCH ×5 (06:59→18:57)
[2019-02-25] MEDS: INSULIN REGULAR, HUMAN 100 UNITS/1 ML SUB-Q SCH ×4 (09:35→18:48)
[2019-02-25] MEDS: FOLIC ACID 1 MG TAB PO SCH (09:36)
[2019-02-25] MEDS: MULTIVITAMINS 5 ML ORAL LIQUID PO SCH (09:36)
[2019-02-25] MEDS: LEVOTHYROXINE 125 MCG TAB PO SCH (09:36)
[2019-02-25] MEDS: LANSOPRAZOLE 30 MG SOLUTAB FEEDTUBE SCH ×2 (09:36→21:49)
[2019-02-25] MEDS: predniSONE 20 MG TAB PO SCH (09:36)
--- NOTE | 2019-02-25 11:19 | Progress Note ---
Assessment and Plan 53-year-old female status post exploration of neck wound, POD 1 and open tracheostomy, PEG tube placement, fiberoptic bronchoscopy, 02/21 Plan: 1. Patient shaking head from side to side often. Likely this is causing tension on the sutures approximating the skin causing some skin oozing. May need intermittent anxiolytic. Discussed with Dr. Fernandez 2. continue vent management per ICU 3. continue TF at goal Thank you, please call with questions. Subjective Date of service: 02/25/19 Narrative: Pt seen and examined. No acute issues. Patient denies pain. Tolerating TF. No bleeding from tracheostomy per RN and surgical dressing has not been changed. Patient agrees when asked if she is tired of being in bed. Objective Vital Signs - 12hr 02/24/19 02/24/19 02/25/19 23:30 23:44 00:00 Temperature 98.9 F Pulse Rate 58 L 56 L Pulse Rate [ Anterior Bilateral Throughout] Pulse Rate [ 58 L From Monitor] Respiratory 14 15 Rate Respiratory Rate [Anterior Bilateral Throughout] Blood Pressure 160/83 160/83 O2 Sat by Pulse 100 100 Oximetry O2 Sat by Pulse Oximetry [ Assessment] 02/25/19 02/25/19 02/25/19 00:10 00:30 01:00 Temperature Pulse Rate 52 L 61 52 L Pulse Rate [ Anterior Bilateral Throughout] Pulse Rate [ From Monitor] Respiratory 14 14 Rate Respiratory Rate [Anterior Bilateral Throughout] Blood Pressure 175/88 175/88 175/88 O2 Sat by Pulse 100 100 100 Oximetry O2 Sat by Pulse Oximetry [ Assessment] 02/25/19 02/25/19 02/25/19 01:30 02:00 02:30 Temperature Pulse Rate 60 53 L 49 L Pulse Rate [ Anterior Bilateral Throughout] Pulse Rate [ From Monitor] Respiratory 14 14 14 Rate Respiratory Rate [Anterior Bilateral Throughout] Blood Pressure 170/79 170/79 152/82 O2 Sat by Pulse Oximetry O2 Sat by Pulse Oximetry [ Assessment] 02/25/19 02/25/19 02/25/19 03:00 03:30 04:00 Temperature 98.8 F Pulse Rate 50 L 58 L 71 Pulse Rate [ Anterior Bilateral Throughout] Pulse Rate [ 58 L From Monitor] Respiratory 14 14 15 Rate Respiratory Rate [Anterior Bilateral Throughout] Blood Pressure 152/82 166/76 166/76 O2 Sat by Pulse 100 Oximetry O2 Sat by Pulse Oximetry [ Assessment] 02/25/19 02/25/19 02/25/19 04:30 05:00 05:02 Temperature Pulse Rate 53 L 56 L 59 L Pulse Rate [ Anterior Bilateral Throughout] Pulse Rate [ From Monitor] Respiratory 14 14 Rate Respiratory Rate [Anterior Bilateral Throughout] Blood Pressure 178/84 178/84 174/87 O2 Sat by Pulse 96 100 Oximetry O2 Sat by Pulse Oximetry [ Assessment] 02/25/19 02/25/19 02/25/19 05:30 06:00 06:02 Temperature Pulse Rate 90 96 H Pulse Rate [ Anterior Bilateral Throughout] Pulse Rate [ From Monitor] Respiratory 15 16 Rate Respiratory Rate [Anterior Bilateral Throughout] Blood Pressure 174/87 174/87 O2 Sat by Pulse 100 Oximetry O2 Sat by Pulse 100 Oximetry [ Assessment] 02/25/19 02/25/19 02/25/19 06:30 06:57 06:59 Temperature Pulse Rate 119 H 90 85 Pulse Rate [ Anterior Bilateral Throughout] Pulse Rate [ From Monitor] Respiratory 25 H Rate Respiratory Rate [Anterior Bilateral Throughout] Blood Pressure 193/104 174/105 174/105 O2 Sat by Pulse Oximetry O2 Sat by Pulse Oximetry [ Assessment] 02/25/19 02/25/19 02/25/19 07:00 07:30 08:00 Temperature 98.6 F Pulse Rate 91 H 106 H 81 Pulse Rate [ Anterior Bilateral Throughout] Pulse Rate [ 81 From Monitor] Respiratory 19 14 14 Rate Respiratory Rate [Anterior Bilateral Throughout] Blood Pressure 174/105 167/95 167/95 O2 Sat by Pulse 100 99 Oximetry O2 Sat by Pulse Oximetry [ Assessment] 02/25/19 02/25/19 02/25/19 08:02 08:25 08:30 Temperature Pulse Rate 96 H 90 Pulse Rate [ 98 H Anterior Bilateral Throughout] Pulse Rate [ From Monitor] Respiratory 18 14 Rate Respiratory 15 Rate [Anterior Bilateral Throughout] Blood Pressure 152/89 152/89 O2 Sat by Pulse 100 100 Oximetry O2 Sat by Pulse Oximetry [ Assessment] 02/25/19 02/25/19 02/25/19 09:00 09:30 10:00 Temperature Pulse Rate 79 83 89 Pulse Rate [ Anterior Bilateral Throughout] Pulse Rate [ From Monitor] Respiratory 14 14 14 Rate Respiratory Rate [Anterior Bilateral Throughout] Blood Pressure 151/83 152/89 158/86 O2 Sat by Pulse 97 100 100 Oximetry O2 Sat by Pulse Oximetry [ Assessment] 02/25/19 02/25/19 10:30 11:00 Temperature Pulse Rate 83 65 Pulse Rate [ Anterior Bilateral Throughout] Pulse Rate [ From Monitor] Respiratory 14 14 Rate Respiratory Rate [Anterior Bilateral Throughout] Blood Pressure 158/86 158/86 O2 Sat by Pulse 100 100 Oximetry O2 Sat by Pulse Oximetry [ Assessment] - General physical appearance Narrative Exam: Gen: Awake and alert. Shaking head vigorously from side to side. ENT: tracheostomy in place. Blood clot on inferior aspect of drain sponge. This was removed. No bleeding from wound. Steristrips are clean and dry. No hematoma. New drain sponge applied. - Labs 02/24/19 10:52 02/24/19 10:52 Diabetes panel 02/24/19 Range/Units 10:52 Sodium 149 H (137-145) mmol/L Potassium 4.3 (3.6-5.0) mmol/L Chloride 114.7 H (98-107) mmol/L Carbon Dioxide 25 (22-30) mmol/L BUN 80 H (7-17) mg/dL Creatinine 0.9 (0.7-1.2) mg/dL Glucose 109 H (65-100) mg/dL Calcium 8.1 L (8.4-10.2) mg/dL Calcium panel 02/24/19 Range/Units 10:52 Calcium 8.1 L (8.4-10.2) mg/dL Pituitary panel 02/24/19 Range/Units 10:52 Sodium 149 H (137-145) mmol/L Potassium 4.3 (3.6-5.0) mmol/L Chloride 114.7 H (98-107) mmol/L Carbon Dioxide 25 (22-30) mmol/L BUN 80 H (7-17) mg/dL Creatinine 0.9 (0.7-1.2) mg/dL Glucose 109 H (65-100) mg/dL Calcium 8.1 L (8.4-10.2) mg/dL Adrenal panel 02/24/19 Range/Units 10:52 Sodium 149 H (137-145) mmol/L Potassium 4.3 (3.6-5.0) mmol/L Chloride 114.7 H (98-107) mmol/L Carbon Dioxide 25 (22-30) mmol/L BUN 80 H (7-17) mg/dL Creatinine 0.9 (0.7-1.2) mg/dL Glucose 109 H (65-100) mg/dL Calcium 8.1 L (8.4-10.2) mg/dL
--- NOTE | 2019-02-25 12:05 | Progress Note ---
Assessment and Plan 53 y/o female with strep pneumonae bacteremia, meningitis and now stroke with acute respiratory failure and continued azotemia. 1. Neuro/Rheum: Continue Prednisone 20 daily. 2. MSK: Continue PT as patient's mental status has improved and she is very weak. 3. Renal: stable, nephrology has signed off. 4. CV-Follow up cards recs if any new ones. 5. GI-patient with severe gastritis seen on Peg placement. Stopped H2 geraldine and placed on BID PPI 6. Overall prognosis remains guarded, however good that patient is awake. 7. Stable for transfer when bed available. Total critical care time 31 minutes Subjective Date of service: 02/25/19 Principal diagnosis: h/o low plt Interval history: No acute events. No further bleeding from around trach. Pulm status is stable. ABG was done this am and was very good. Objective Vital Signs - 12hr 02/25/19 02/25/19 02/25/19 00:10 00:30 01:00 Temperature Pulse Rate 52 L 61 52 L Pulse Rate [ Anterior Bilateral Throughout] Pulse Rate [ From Monitor] Respiratory 14 14 Rate Respiratory Rate [Anterior Bilateral Throughout] Blood Pressure 175/88 175/88 175/88 O2 Sat by Pulse 100 100 100 Oximetry O2 Sat by Pulse Oximetry [ Assessment] 02/25/19 02/25/19 02/25/19 01:30 02:00 02:30 Temperature Pulse Rate 60 53 L 49 L Pulse Rate [ Anterior Bilateral Throughout] Pulse Rate [ From Monitor] Respiratory 14 14 14 Rate Respiratory Rate [Anterior Bilateral Throughout] Blood Pressure 170/79 170/79 152/82 O2 Sat by Pulse Oximetry O2 Sat by Pulse Oximetry [ Assessment] 02/25/19 02/25/19 02/25/19 03:00 03:30 04:00 Temperature 98.8 F Pulse Rate 50 L 58 L 71 Pulse Rate [ Anterior Bilateral Throughout] Pulse Rate [ 58 L From Monitor] Respiratory 14 14 15 Rate Respiratory Rate [Anterior Bilateral Throughout] Blood Pressure 152/82 166/76 166/76 O2 Sat by Pulse 100 Oximetry O2 Sat by Pulse Oximetry [ Assessment] 02/25/19 02/25/19 02/25/19 04:30 05:00 05:02 Temperature Pulse Rate 53 L 56 L 59 L Pulse Rate [ Anterior Bilateral Throughout] Pulse Rate [ From Monitor] Respiratory 14 14 Rate Respiratory Rate [Anterior Bilateral Throughout] Blood Pressure 178/84 178/84 174/87 O2 Sat by Pulse 96 100 Oximetry O2 Sat by Pulse Oximetry [ Assessment] 02/25/19 02/25/19 02/25/19 05:30 06:00 06:02 Temperature Pulse Rate 90 96 H Pulse Rate [ Anterior Bilateral Throughout] Pulse Rate [ From Monitor] Respiratory 15 16 Rate Respiratory Rate [Anterior Bilateral Throughout] Blood Pressure 174/87 174/87 O2 Sat by Pulse 100 Oximetry O2 Sat by Pulse 100 Oximetry [ Assessment] 02/25/19 02/25/19 02/25/19 06:30 06:57 06:59 Temperature Pulse Rate 119 H 90 85 Pulse Rate [ Anterior Bilateral Throughout] Pulse Rate [ From Monitor] Respiratory 25 H Rate Respiratory Rate [Anterior Bilateral Throughout] Blood Pressure 193/104 174/105 174/105 O2 Sat by Pulse Oximetry O2 Sat by Pulse Oximetry [ Assessment] 02/25/19 02/25/19 02/25/19 07:00 07:30 08:00 Temperature 98.6 F Pulse Rate 91 H 106 H 81 Pulse Rate [ Anterior Bilateral Throughout] Pulse Rate [ 81 From Monitor] Respiratory 19 14 14 Rate Respiratory Rate [Anterior Bilateral Throughout] Blood Pressure 174/105 167/95 167/95 O2 Sat by Pulse 100 99 Oximetry O2 Sat by Pulse Oximetry [ Assessment] 02/25/19 02/25/19 02/25/19 08:02 08:25 08:30 Temperature Pulse Rate 96 H 90 Pulse Rate [ 98 H Anterior Bilateral Throughout] Pulse Rate [ From Monitor] Respiratory 18 14 Rate Respiratory 15 Rate [Anterior Bilateral Throughout] Blood Pressure 152/89 152/89 O2 Sat by Pulse 100 100 Oximetry O2 Sat by Pulse Oximetry [ Assessment] 02/25/19 02/25/19 02/25/19 09:00 09:30 10:00 Temperature Pulse Rate 79 83 89 Pulse Rate [ Anterior Bilateral Throughout] Pulse Rate [ From Monitor] Respiratory 14 14 14 Rate Respiratory Rate [Anterior Bilateral Throughout] Blood Pressure 151/83 152/89 158/86 O2 Sat by Pulse 97 100 100 Oximetry O2 Sat by Pulse Oximetry [ Assessment] 02/25/19 02/25/19 02/25/19 10:30 11:00 11:57 Temperature 98.6 F Pulse Rate 83 65 Pulse Rate [ Anterior Bilateral Throughout] Pulse Rate [ From Monitor] Respiratory 14 14 Rate Respiratory Rate [Anterior Bilateral Throughout] Blood Pressure 158/86 158/86 O2 Sat by Pulse 100 100 Oximetry O2 Sat by Pulse Oximetry [ Assessment] Constitutional: no acute distress, alert Eyes: non-icteric ENT: oropharynx moist Neck: supple, other (Proximal XLT size [address]) Effort: normal Ascultation: Bilateral: other (coarse BS bilaterally) Cardiovascular: regular rate and rhythm (no mrg) Gastrointestinal: normoactive bowel sounds, soft, non-tender, non-distended Integumentary: normal Extremities: no cyanosis, no edema, pink and warm Neurologic: other (L sided hemiparesis) Psychiatric: mood appropriate, affect normal CBC and BMP: 02/24/19 10:52 02/24/19 10:52 ABG, PT/INR, D-dimer: ABG POC ABG pH 7.416 (7.35-7.45) 02/25/19 05:12 ABG pH 7.440 pH Units (7.350-7.450) 02/11/19 04:10 POC ABG pCO2 35.1 (35-45) 02/25/19 05:12 ABG pCO2 37.4 mm Hg 02/11/19 04:10 POC ABG pO2 130 (80-105) H 02/25/19 05:12 ABG pO2 69.4 mm Hg (80.0-90.0) L 02/11/19 04:10 POC ABG HCO3 22.5 (22-26 mml/L) 02/25/19 05:12 POC ABG Total CO2 24 (23-27mmol/L) 02/25/19 05:12 POC ABG O2 Sat 99 02/25/19 05:12 ABG O2 Saturation 94.2 % (95.0-99.0) L 02/11/19 04:10 PT/INR, D-dimer PT 13.7 Sec. (12.2-14.9) 02/24/19 10:52 INR 1.08 (0.87-1.13) 02/24/19 10:52 Abnormal lab findings: Abnormal Labs 02/01/19 02/01/19 02/01/19 07:16 07:16 07:16 WBC 17.7 H RBC Hgb Hct RDW 16.9 H Plt Count 62 L Seg Neuts % (Manual) 95.0 H Lymphocytes % (Manual) 0 L Seg Neutrophils # Man 16.8 H Lymphocytes # (Manual) 0.0 L PT 15.0 H INR 1.21 H APTT Thrombin Time 20.0 H POC ABG pH ABG pH POC ABG pCO2 POC ABG pO2 ABG pO2 ABG HCO3 ABG O2 Saturation ABG Base Excess ABG Hemoglobin Oxyhemoglobin Sodium 135 L Potassium Chloride 97.7 L Carbon Dioxide 19 L BUN 51 H Creatinine 4.5 H Glucose 112 H POC Glucose Lactic Acid Calcium Magnesium Iron TIBC Direct Bilirubin AST Alkaline Phosphatase Troponin T 0.181 H* C-Reactive Protein Total Protein Albumin LDL Cholesterol Direct 34 L HDL Cholesterol 20 L Vitamin B12 Folate TSH Urine WBC (Auto) Urine Creatinine Urine Total Protein CHESTER Screen CHESTER Titer Complement C3 Complement C4 02/01/19 02/01/19 02/01/19 07:29 07:29 07:43 WBC RBC Hgb Hct RDW Plt Count Seg Neuts % (Manual) Lymphocytes % (Manual) Seg Neutrophils # Man Lymphocytes # (Manual) PT INR APTT Thrombin Time POC ABG pH ABG pH POC ABG pCO2 POC ABG pO2 ABG pO2 ABG HCO3 ABG O2 Saturation ABG Base Excess ABG Hemoglobin Oxyhemoglobin Sodium Potassium Chloride Carbon Dioxide BUN Creatinine Glucose POC Glucose Lactic Acid 4.80 H* Calcium Magnesium Iron TIBC Direct Bilirubin 0.7 H AST 42 H Alkaline Phosphatase Troponin T C-Reactive Protein Total Protein 8.9 H Albumin 2.3 L LDL Cholesterol Direct HDL Cholesterol Vitamin B12 Folate TSH 8.470 H Urine WBC (Auto) Urine Creatinine Urine Total Protein [place] Screen [place] Titer Complement C3 Complement C4 02/01/19 02/01/19 02/01/19 09:45 11:32 13:50 WBC RBC Hgb Hct RDW Plt Count Seg Neuts % (Manual) Lymphocytes % (Manual) Seg Neutrophils # Man Lymphocytes # (Manual) PT INR APTT Thrombin Time POC ABG pH 7.289 L ABG pH POC ABG pCO2 POC ABG pO2 355 H ABG pO2 ABG HCO3 ABG O2 Saturation ABG Base Excess ABG Hemoglobin Oxyhemoglobin Sodium Potassium Chloride Carbon Dioxide BUN Creatinine Glucose POC Glucose Lactic Acid 4.10 H* Calcium Magnesium Iron TIBC Direct Bilirubin AST Alkaline Phosphatase Troponin T C-Reactive Protein Total Protein Albumin LDL Cholesterol Direct HDL Cholesterol Vitamin B12 Folate TSH Urine WBC (Auto) 16.0 H Urine Creatinine Urine Total Protein [place] Screen [place] Titer Complement C3 Complement C4 02/01/19 02/01/19 02/01/19 15:15 16:20 16:51 WBC RBC Hgb Hct RDW Plt Count Seg Neuts % (Manual) Lymphocytes % (Manual) Seg Neutrophils # Man Lymphocytes # (Manual) PT INR APTT Thrombin Time POC ABG pH ABG pH POC ABG pCO2 POC ABG pO2 ABG pO2 ABG HCO3 ABG O2 Saturation ABG Base Excess ABG Hemoglobin Oxyhemoglobin Sodium Potassium Chloride Carbon Dioxide BUN Creatinine Glucose POC Glucose 115 H Lactic Acid 4.50 H* Calcium Magnesium Iron TIBC Direct Bilirubin AST Alkaline Phosphatase Troponin T C-Reactive Protein Total Protein Albumin LDL Cholesterol Direct HDL Cholesterol Vitamin B12 Folate TSH Urine WBC (Auto) Urine Creatinine Urine Total Protein [place] Screen [place] Titer Complement C3 36 L Complement C4 02/01/19 02/01/19 02/01/19 16:51 17:03 17:04 WBC RBC Hgb Hct RDW Plt Count Seg Neuts % (Manual) Lymphocytes % (Manual) Seg Neutrophils # Man Lymphocytes # (Manual) PT INR APTT Thrombin Time POC ABG pH ABG pH POC ABG pCO2 POC ABG pO2 ABG pO2 ABG HCO3 ABG O2 Saturation ABG Base Excess ABG Hemoglobin Oxyhemoglobin Sodium Potassium Chloride Carbon Dioxide BUN Creatinine Glucose POC Glucose Lactic Acid 2.80 H* Calcium Magnesium Iron TIBC Direct Bilirubin AST Alkaline Phosphatase Troponin T C-Reactive Protein 32.30 H Total Protein Albumin LDL Cholesterol Direct HDL Cholesterol Vitamin B12 Folate TSH Urine WBC (Auto) Urine Creatinine Urine Total Protein [place] Screen [place] Titer Complement C3 Complement C4 12 L 02/01/19 02/01/19 02/02/19 17:04 19:28 05:16 WBC RBC Hgb Hct RDW Plt Count Seg Neuts % (Manual) Lymphocytes % (Manual) Seg Neutrophils # Man Lymphocytes # (Manual) PT INR APTT Thrombin Time POC ABG pH ABG pH POC ABG pCO2 POC ABG pO2 148 H ABG pO2 ABG HCO3 ABG O2 Saturation ABG Base Excess ABG Hemoglobin Oxyhemoglobin Sodium Potassium Chloride 107.1 H Carbon Dioxide 18 L BUN 52 H Creatinine 3.1 H Glucose 120 H POC Glucose Lactic Acid Calcium 7.4 L Magnesium Iron TIBC Direct Bilirubin AST Alkaline Phosphatase Troponin T C-Reactive Protein Total Protein Albumin LDL Cholesterol Direct HDL Cholesterol Vitamin B12 Folate TSH Urine WBC (Auto) Urine Creatinine Urine Total Protein [place] Screen Positive H CHE[place] Titer 1:320 H Complement C3 Complement C4 02/02/19 02/02/19 02/03/19 05:53 05:53 03:30 WBC 14.3 H RBC 5.16 H Hgb 14.9 H Hct 46.2 H D RDW 16.9 H 17.0 H Plt Count 43 L 18 L* Seg Neuts % (Manual) 93.0 H Lymphocytes % (Manual) 2.0 L Seg Neutrophils # Man 13.3 H Lymphocytes # (Manual) 0.3 L PT INR APTT Thrombin Time POC ABG pH ABG pH POC ABG pCO2 POC ABG pO2 ABG pO2 ABG HCO3 ABG O2 Saturation ABG Base Excess ABG Hemoglobin Oxyhemoglobin Sodium Potassium 5.1 H Chloride Carbon Dioxide 21 L BUN 57 H Creatinine 3.3 H Glucose 147 H POC Glucose Lactic Acid Calcium 7.5 L Magnesium Iron TIBC Direct Bilirubin AST 51 H Alkaline Phosphatase Troponin T C-Reactive Protein Total Protein Albumin 1.6 L LDL Cholesterol Direct HDL Cholesterol Vitamin B12 Folate TSH Urine WBC (Auto) Urine Creatinine Urine Total Protein [place] Screen [place] Titer Complement C3 Complement C4 02/03/19 02/03/19 02/03/19 03:30 05:55 14:42 WBC RBC Hgb Hct RDW Plt Count Seg Neuts % (Manual) Lymphocytes % (Manual) Seg Neutrophils # Man Lymphocytes # (Manual) PT INR APTT Thrombin Time POC ABG pH ABG pH POC ABG pCO2 POC ABG pO2 117 H ABG pO2 ABG HCO3 ABG O2 Saturation ABG Base Excess ABG Hemoglobin Oxyhemoglobin Sodium Potassium Chloride Carbon Dioxide BUN 65 H Creatinine 2.7 H Glucose 117 H POC Glucose Lactic Acid Calcium 7.2 L Magnesium Iron TIBC Direct Bilirubin AST Alkaline Phosphatase Troponin T C-Reactive Protein Total Protein Albumin LDL Cholesterol Direct HDL Cholesterol Vitamin B12 1468 H Folate TSH Urine WBC (Auto) Urine Creatinine Urine Total Protein [place] Screen [place] Titer Complement C3 Complement C4 02/03/19 02/03/19 02/03/19 14:42 14:42 14:42 WBC RBC 3.17 L Hgb 9.4 L D Hct 28.3 L D RDW 16.9 H Plt Count 18 L* Seg Neuts % (Manual) Lymphocytes % (Manual) Seg Neutrophils # Man Lymphocytes # (Manual) PT INR APTT Thrombin Time POC ABG pH ABG pH POC ABG pCO2 POC ABG pO2 ABG pO2 ABG HCO3 ABG O2 Saturation ABG Base Excess ABG Hemoglobin Oxyhemoglobin Sodium Potassium Chloride Carbon Dioxide BUN Creatinine Glucose POC Glucose Lactic Acid Calcium Magnesium Iron 11 L TIBC 88 L Direct Bilirubin AST Alkaline Phosphatase Troponin T C-Reactive Protein Total Protein Albumin LDL Cholesterol Direct HDL Cholesterol Vitamin B12 Folate 5.18 L TSH Urine WBC (Auto) Urine Creatinine Urine Total Protein [place] Screen [place] Titer Complement C3 Complement C4 02/03/19 02/03/19 02/04/19 14:42 14:42 03:35 WBC RBC 3.22 L Hgb 9.5 L Hct 28.5 L RDW 16.4 H Plt Count 18 L* Seg Neuts % (Manual) Lymphocytes % (Manual) Seg Neutrophils # Man Lymphocytes # (Manual) PT 15.8 H INR 1.29 H APTT 38.2 H Thrombin Time POC ABG pH ABG pH 7.470 H POC ABG pCO2 POC ABG pO2 ABG pO2 ABG HCO3 28.4 H ABG O2 Saturation ABG Base Excess 4.5 H ABG Hemoglobin 10.1 L Oxyhemoglobin 94.7 L Sodium Potassium Chloride Carbon Dioxide BUN Creatinine Glucose POC Glucose Lactic Acid Calcium Magnesium Iron TIBC Direct Bilirubin AST Alkaline Phosphatase Troponin T C-Reactive Protein Total Protein Albumin LDL Cholesterol Direct HDL Cholesterol Vitamin B12 Folate TSH Urine WBC (Auto) Urine Creatinine Urine Total Protein [place] Screen [place] Titer Complement C3 Complement C4 02/04/19 02/04/19 02/05/19 05:02 05:02 03:50 WBC RBC Hgb Hct RDW 16.5 H Plt Count 20 L Seg Neuts % (Manual) 94.0 H Lymphocytes % (Manual) 2.0 L Seg Neutrophils # Man 9.2 H Lymphocytes # (Manual) 0.2 L PT INR APTT Thrombin Time POC ABG pH ABG pH 7.485 H POC ABG pCO2 POC ABG pO2 ABG pO2 ABG HCO3 27.5 H ABG O2 Saturation ABG Base Excess 3.9 H ABG Hemoglobin 9.1 L Oxyhemoglobin 94.8 L Sodium Potassium Chloride Carbon Dioxide BUN 66 H Creatinine 1.7 H Glucose 127 H POC Glucose Lactic Acid Calcium 7.6 L Magnesium Iron TIBC Direct Bilirubin AST Alkaline Phosphatase Troponin T C-Reactive Protein Total Protein Albumin LDL Cholesterol Direct HDL Cholesterol Vitamin B12 Folate TSH Urine WBC (Auto) Urine Creatinine Urine Total Protein [place] Screen [place] Titer Complement C3 Complement C4 02/05/19 02/05/19 02/05/19 13:02 14:36 20:03 WBC 11.7 H RBC 3.48 L 3.24 L Hgb 10.0 L 9.4 L Hct 29.2 L RDW 16.3 H 16.3 H Plt Count 50 L D 71 L Seg Neuts % (Manual) 95.0 H 95.0 H Lymphocytes % (Manual) 0 L 2.0 L Seg Neutrophils # Man 11.1 H 10.2 H Lymphocytes # (Manual) 0.0 L 0.2 L PT INR APTT Thrombin Time POC ABG pH ABG pH POC ABG pCO2 POC ABG pO2 ABG pO2 ABG HCO3 ABG O2 Saturation ABG Base Excess ABG Hemoglobin Oxyhemoglobin Sodium Potassium Chloride Carbon Dioxide BUN 67 H Creatinine 1.5 H Glucose POC Glucose Lactic Acid Calcium 7.7 L Magnesium Iron TIBC Direct Bilirubin AST Alkaline Phosphatase Troponin T C-Reactive Protein Total Protein Albumin LDL Cholesterol Direct HDL Cholesterol Vitamin B12 Folate TSH Urine WBC (Auto) Urine Creatinine Urine Total Protein [place] Screen [place] Titer Complement C3 Complement C4 02/06/19 02/06/19 02/06/19 05:39 07:35 18:34 WBC RBC Hgb Hct RDW Plt Count Seg Neuts % (Manual) Lymphocytes % (Manual) Seg Neutrophils # Man Lymphocytes # (Manual) PT 16.3 H INR 1.35 H APTT Thrombin Time POC ABG pH ABG pH POC ABG pCO2 POC ABG pO2 ABG pO2 ABG HCO3 ABG O2 Saturation ABG Base Excess ABG Hemoglobin Oxyhemoglobin Sodium Potassium Chloride Carbon Dioxide BUN Creatinine Glucose POC Glucose 107 H 121 H Lactic Acid Calcium Magnesium Iron TIBC Direct Bilirubin AST Alkaline Phosphatase Troponin T C-Reactive Protein Total Protein Albumin LDL Cholesterol Direct HDL Cholesterol Vitamin B12 Folate TSH Urine WBC (Auto) Urine Creatinine Urine Total Protein [place] Screen [place] Titer Complement C3 Complement C4 02/06/19 02/07/19 02/07/19 Unknown 01:07 04:15 WBC RBC Hgb Hct RDW Plt Count Seg Neuts % (Manual) Lymphocytes % (Manual) Seg Neutrophils # Man Lymphocytes # (Manual) PT INR APTT Thrombin Time POC ABG pH ABG pH POC ABG pCO2 POC ABG pO2 ABG pO2 ABG HCO3 ABG O2 Saturation ABG Base Excess ABG Hemoglobin 5.0 L Oxyhemoglobin 94.9 L 94.8 L Sodium 146 H Potassium Chloride Carbon Dioxide BUN 85 H Creatinine 1.8 H Glucose 163 H POC Glucose Lactic Acid Calcium 8.3 L Magnesium Iron TIBC Direct Bilirubin AST Alkaline Phosphatase Troponin T C-Reactive Protein Total Protein Albumin LDL Cholesterol Direct HDL Cholesterol Vitamin B12 Folate TSH Urine WBC (Auto) Urine Creatinine Urine Total Protein [place] Screen [place] Titer Complement C3 Complement C4 02/07/19 02/07/19 02/08/19 08:22 10:58 04:40 WBC RBC Hgb Hct RDW 16.0 H Plt Count 84 L Seg Neuts % (Manual) 97.0 H Lymphocytes % (Manual) 0 L Seg Neutrophils # Man 9.5 H Lymphocytes # (Manual) 0.0 L PT INR APTT Thrombin Time POC ABG pH 7.477 H ABG pH 7.467 H POC ABG pCO2 34.8 L POC ABG pO2 118 H ABG pO2 ABG HCO3 ABG O2 Saturation ABG Base Excess ABG Hemoglobin 8.4 L Oxyhemoglobin Sodium Potassium Chloride Carbon Dioxide BUN Creatinine Glucose POC Glucose Lactic Acid Calcium Magnesium Iron TIBC Direct Bilirubin AST Alkaline Phosphatase Troponin T C-Reactive Protein Total Protein Albumin LDL Cholesterol Direct HDL Cholesterol Vitamin B12 Folate TSH Urine WBC (Auto) Urine Creatinine Urine Total Protein [place] Screen [place] Titer Complement C3 Complement C4 02/09/19 02/09/19 02/09/19 03:17 03:17 04:35 WBC 14.9 H RBC 3.32 L Hgb 9.6 L Hct RDW 15.9 H Plt Count 113 L Seg Neuts % (Manual) 96.0 H Lymphocytes % (Manual) 1.0 L Seg Neutrophils # Man 14.3 H Lymphocytes # (Manual) 0.1 L PT INR APTT Thrombin Time POC ABG pH ABG pH 7.478 H POC ABG pCO2 POC ABG pO2 ABG pO2 94.5 H ABG HCO3 ABG O2 Saturation ABG Base Excess ABG Hemoglobin 6.1 L Oxyhemoglobin Sodium 147 H Potassium Chloride 110.4 H Carbon Dioxide BUN 114 H Creatinine 2.2 H Glucose 270 H POC Glucose Lactic Acid Calcium 8.1 L Magnesium Iron TIBC Direct Bilirubin AST Alkaline Phosphatase Troponin T C-Reactive Protein Total Protein Albumin 1.6 L LDL Cholesterol Direct HDL Cholesterol Vitamin B12 Folate TSH Urine WBC (Auto) Urine Creatinine Urine Total Protein [place] Screen [place] Titer Complement C3 Complement C4 02/09/19 02/09/19 02/10/19 13:35 18:54 05:13 WBC RBC Hgb Hct RDW Plt Count Seg Neuts % (Manual) Lymphocytes % (Manual) Seg Neutrophils # Man Lymphocytes # (Manual) PT INR APTT Thrombin Time POC ABG pH ABG pH 7.478 H POC ABG pCO2 POC ABG pO2 ABG pO2 ABG HCO3 ABG O2 Saturation ABG Base Excess ABG Hemoglobin 8.1 L Oxyhemoglobin 94.9 L Sodium Potassium Chloride Carbon Dioxide BUN Creatinine Glucose POC Glucose Lactic Acid Calcium Magnesium Iron TIBC Direct Bilirubin AST Alkaline Phosphatase Troponin T C-Reactive Protein Total Protein Albumin LDL Cholesterol Direct HDL Cholesterol Vitamin B12 Folate TSH Urine WBC (Auto) 10.0 H Urine Creatinine 92.9 H Urine Total Protein 116 H [place] Screen [place] Titer Complement C3 Complement C4 02/10/19 02/10/19 02/11/19 18:14 23:24 04:10 WBC RBC Hgb Hct RDW Plt Count Seg Neuts % (Manual) Lymphocytes % (Manual) Seg Neutrophils # Man Lymphocytes # (Manual) PT INR APTT Thrombin Time POC ABG pH ABG pH POC ABG pCO2 POC ABG pO2 ABG pO2 69.4 L ABG HCO3 ABG O2 Saturation 94.2 L ABG Base Excess ABG Hemoglobin 11.0 L Oxyhemoglobin 92.1 L Sodium Potassium Chloride Carbon Dioxide BUN Creatinine Glucose POC Glucose 453 H 403 H Lactic Acid Calcium Magnesium Iron TIBC Direct Bilirubin AST Alkaline Phosphatase Troponin T C-Reactive Protein Total Protein Albumin LDL Cholesterol Direct HDL Cholesterol Vitamin B12 Folate TSH Urine WBC (Auto) Urine Creatinine Urine Total Protein [place] Screen [place] Titer Complement C3 Complement C4 02/11/19 02/11/19 02/11/19 04:54 04:54 05:40 WBC 12.5 H RBC 3.18 L Hgb 9.4 L Hct 29.4 L RDW 16.6 H Plt Count Seg Neuts % (Manual) 94.0 H Lymphocytes % (Manual) 4.0 L Seg Neutrophils # Man 11.8 H Lymphocytes # (Manual) 0.5 L PT INR APTT Thrombin Time POC ABG pH ABG pH POC ABG pCO2 POC ABG pO2 ABG pO2 ABG HCO3 ABG O2 Saturation ABG Base Excess ABG Hemoglobin Oxyhemoglobin Sodium 151 H Potassium Chloride 112.6 H Carbon Dioxide BUN 127 H Creatinine 1.8 H Glucose 396 H POC Glucose 410 H Lactic Acid Calcium 8.3 L Magnesium Iron TIBC Direct Bilirubin AST Alkaline Phosphatase 132 H Troponin T C-Reactive Protein Total Protein Albumin 2.1 L LDL Cholesterol Direct HDL Cholesterol Vitamin B12 Folate TSH Urine WBC (Auto) Urine Creatinine Urine Total Protein [place] Screen [place] Titer Complement C3 Complement C4 02/11/19 02/11/19 02/11/19 11:30 17:58 23:18 WBC RBC Hgb Hct RDW Plt Count Seg Neuts % (Manual) Lymphocytes % (Manual) Seg Neutrophils # Man Lymphocytes # (Manual) PT INR APTT Thrombin Time POC ABG pH ABG pH POC ABG pCO2 POC ABG pO2 ABG pO2 ABG HCO3 ABG O2 Saturation ABG Base Excess ABG Hemoglobin Oxyhemoglobin Sodium Potassium Chloride Carbon Dioxide BUN Creatinine Glucose POC Glucose 361 H 414 H 392 H Lactic Acid Calcium Magnesium Iron TIBC Direct Bilirubin AST Alkaline Phosphatase Troponin T C-Reactive Protein Total Protein Albumin LDL Cholesterol Direct HDL Cholesterol Vitamin B12 Folate TSH Urine WBC (Auto) Urine Creatinine Urine Total Protein [place] Screen [place] Titer Complement C3 Complement C4 02/12/19 02/12/19 02/12/19 05:32 05:36 05:36 WBC 11.9 H RBC 3.40 L Hgb 9.9 L Hct RDW 16.4 H Plt Count Seg Neuts % (Manual) 97.0 H Lymphocytes % (Manual) 2.0 L Seg Neutrophils # Man 11.5 H Lymphocytes # (Manual) 0.2 L PT INR APTT Thrombin Time POC ABG pH ABG pH POC ABG pCO2 POC ABG pO2 ABG pO2 ABG HCO3 ABG O2 Saturation ABG Base Excess ABG Hemoglobin Oxyhemoglobin Sodium 146 H Potassium 3.5 L Chloride 110.2 H Carbon Dioxide BUN 118 H Creatinine 1.4 H Glucose 382 H POC Glucose 361 H Lactic Acid Calcium 8.3 L Magnesium Iron TIBC Direct Bilirubin AST Alkaline Phosphatase 137 H Troponin T C-Reactive Protein Total Protein Albumin 2.0 L LDL Cholesterol Direct HDL Cholesterol Vitamin B12 Folate TSH Urine WBC (Auto) Urine Creatinine Urine Total Protein [place] Screen [place] Titer Complement C3 Complement C4 02/12/19 02/12/19 02/12/19 11:51 17:18 21:46 WBC RBC Hgb Hct RDW Plt Count Seg Neuts % (Manual) Lymphocytes % (Manual) Seg Neutrophils # Man Lymphocytes # (Manual) PT INR APTT Thrombin Time POC ABG pH ABG pH POC ABG pCO2 POC ABG pO2 ABG pO2 ABG HCO3 ABG O2 Saturation ABG Base Excess ABG Hemoglobin Oxyhemoglobin Sodium Potassium Chloride Carbon Dioxide BUN Creatinine Glucose POC Glucose 357 H 280 H 222 H Lactic Acid Calcium Magnesium Iron TIBC Direct Bilirubin AST Alkaline Phosphatase Troponin T C-Reactive Protein Total Protein Albumin LDL Cholesterol Direct HDL Cholesterol Vitamin B12 Folate TSH Urine WBC (Auto) Urine Creatinine Urine Total Protein [place] Screen [place] Titer Complement C3 Complement C4 02/12/19 02/13/19 02/13/19 23:58 03:41 03:41 WBC 11.6 H RBC 3.53 L Hgb Hct RDW 15.8 H Plt Count 98 L Seg Neuts % (Manual) 97.0 H Lymphocytes % (Manual) 2.0 L Seg Neutrophils # Man 11.3 H Lymphocytes # (Manual) 0.2 L PT INR APTT Thrombin Time POC ABG pH ABG pH POC ABG pCO2 POC ABG pO2 ABG pO2 ABG HCO3 ABG O2 Saturation ABG Base Excess ABG Hemoglobin Oxyhemoglobin Sodium Potassium 3.4 L Chloride 109.7 H Carbon Dioxide BUN 108 H Creatinine Glucose 182 H POC Glucose 208 H Lactic Acid Calcium Magnesium Iron TIBC Direct Bilirubin AST 45 H Alkaline Phosphatase 150 H Troponin T C-Reactive Protein Total Protein Albumin 1.8 L LDL Cholesterol Direct HDL Cholesterol Vitamin B12 Folate TSH Urine WBC (Auto) Urine Creatinine Urine Total Protein [place] Screen [place] Titer Complement C3 Complement C4 02/13/19 02/13/19 02/13/19 05:40 11:31 18:01 WBC RBC Hgb Hct RDW Plt Count Seg Neuts % (Manual) Lymphocytes % (Manual) Seg Neutrophils # Man Lymphocytes # (Manual) PT INR APTT Thrombin Time POC ABG pH ABG pH POC ABG pCO2 POC ABG pO2 ABG pO2 ABG HCO3 ABG O2 Saturation ABG Base Excess ABG Hemoglobin Oxyhemoglobin Sodium Potassium Chloride Carbon Dioxide BUN Creatinine Glucose POC Glucose 179 H 193 H 151 H Lactic Acid Calcium Magnesium Iron TIBC Direct Bilirubin AST Alkaline Phosphatase Troponin T C-Reactive Protein Total Protein Albumin LDL Cholesterol Direct HDL Cholesterol Vitamin B12 Folate TSH Urine WBC (Auto) Urine Creatinine Urine Total Protein [place] Screen [place] Titer Complement C3 Complement C4 02/13/19 02/14/19 02/14/19 23:47 04:03 04:03 WBC RBC Hgb Hct RDW 16.0 H Plt Count Seg Neuts % (Manual) 94.0 H Lymphocytes % (Manual) 2.0 L Seg Neutrophils # Man 8.9 H Lymphocytes # (Manual) 0.2 L PT INR APTT Thrombin Time POC ABG pH ABG pH POC ABG pCO2 POC ABG pO2 ABG pO2 ABG HCO3 ABG O2 Saturation ABG Base Excess ABG Hemoglobin Oxyhemoglobin Sodium Potassium 3.4 L Chloride 108.7 H Carbon Dioxide 21 L BUN 96 H Creatinine Glucose 129 H POC Glucose 144 H Lactic Acid Calcium 8.2 L Magnesium Iron TIBC Direct Bilirubin AST 65 H Alkaline Phosphatase 164 H Troponin T C-Reactive Protein Total Protein Albumin 1.7 L LDL Cholesterol Direct HDL Cholesterol Vitamin B12 Folate TSH Urine WBC (Auto) Urine Creatinine Urine Total Protein [place] Screen [place] Titer Complement C3 Complement C4 02/14/19 02/14/19 02/14/19 04:03 05:10 11:51 WBC RBC Hgb Hct RDW Plt Count Seg Neuts % (Manual) Lymphocytes % (Manual) Seg Neutrophils # Man Lymphocytes # (Manual) PT INR APTT Thrombin Time POC ABG pH ABG pH POC ABG pCO2 POC ABG pO2 ABG pO2 ABG HCO3 ABG O2 Saturation ABG Base Excess ABG Hemoglobin Oxyhemoglobin Sodium Potassium Chloride Carbon Dioxide BUN Creatinine Glucose POC Glucose 145 H 192 H Lactic Acid Calcium Magnesium 1.60 L Iron TIBC Direct Bilirubin AST Alkaline Phosphatase Troponin T C-Reactive Protein Total Protein Albumin LDL Cholesterol Direct HDL Cholesterol Vitamin B12 Folate TSH Urine WBC (Auto) Urine Creatinine Urine Total Protein [place] Screen [place] Titer Complement C3 Complement C4 02/14/19 02/14/19 02/15/19 17:42 23:33 05:33 WBC RBC Hgb Hct RDW 15.9 H Plt Count Seg Neuts % (Manual) 95.0 H Lymphocytes % (Manual) 1.0 L Seg Neutrophils # Man 7.9 H Lymphocytes # (Manual) 0.1 L PT INR APTT Thrombin Time POC ABG pH ABG pH POC ABG pCO2 POC ABG pO2 ABG pO2 ABG HCO3 ABG O2 Saturation ABG Base Excess ABG Hemoglobin Oxyhemoglobin Sodium Potassium Chloride Carbon Dioxide BUN Creatinine Glucose POC Glucose 229 H 204 H Lactic Acid Calcium Magnesium Iron TIBC Direct Bilirubin AST Alkaline Phosphatase Troponin T C-Reactive Protein Total Protein Albumin LDL Cholesterol Direct HDL Cholesterol Vitamin B12 Folate TSH Urine WBC (Auto) Urine Creatinine Urine Total Protein [place] Screen [place] Titer Complement C3 Complement C4 02/15/19 02/15/19 02/15/19 05:33 05:41 12:30 WBC RBC Hgb Hct RDW Plt Count Seg Neuts % (Manual) Lymphocytes % (Manual) Seg Neutrophils # Man Lymphocytes # (Manual) PT INR APTT Thrombin Time POC ABG pH ABG pH POC ABG pCO2 POC ABG pO2 ABG pO2 ABG HCO3 ABG O2 Saturation ABG Base Excess ABG Hemoglobin Oxyhemoglobin Sodium Potassium Chloride 108.2 H Carbon Dioxide BUN 91 H Creatinine Glucose 197 H POC Glucose 209 H 168 H Lactic Acid Calcium 8.2 L Magnesium Iron TIBC Direct Bilirubin AST 61 H Alkaline Phosphatase 215 H Troponin T C-Reactive Protein Total Protein Albumin 1.9 L LDL Cholesterol Direct HDL Cholesterol Vitamin B12 Folate TSH Urine WBC (Auto) Urine Creatinine Urine Total Protein [place] Screen [place] Titer Complement C3 Complement C4 02/15/19 02/15/19 02/16/19 18:17 23:53 04:58 WBC RBC Hgb Hct RDW 15.7 H Plt Count Seg Neuts % (Manual) 93.0 H Lymphocytes % (Manual) 5.0 L Seg Neutrophils # Man Lymphocytes # (Manual) 0.4 L PT INR APTT Thrombin Time POC ABG pH ABG pH POC ABG pCO2 POC ABG pO2 ABG pO2 ABG HCO3 ABG O2 Saturation ABG Base Excess ABG Hemoglobin Oxyhemoglobin Sodium Potassium Chloride Carbon Dioxide BUN Creatinine Glucose POC Glucose 161 H 160 H Lactic Acid Calcium Magnesium Iron TIBC Direct Bilirubin AST Alkaline Phosphatase Troponin T C-Reactive Protein Total Protein Albumin LDL Cholesterol Direct HDL Cholesterol Vitamin B12 Folate TSH Urine WBC (Auto) Urine Creatinine Urine Total Protein [place] Screen [place] Titer Complement C3 Complement C4 02/16/19 02/16/19 02/16/19 04:58 12:27 17:08 WBC RBC Hgb Hct RDW Plt Count Seg Neuts % (Manual) Lymphocytes % (Manual) Seg Neutrophils # Man Lymphocytes # (Manual) PT INR APTT Thrombin Time POC ABG pH ABG pH POC ABG pCO2 POC ABG pO2 ABG pO2 ABG HCO3 ABG O2 Saturation ABG Base Excess ABG Hemoglobin Oxyhemoglobin Sodium Potassium Chloride 108.3 H Carbon Dioxide BUN 90 H Creatinine Glucose 126 H POC Glucose 125 H 180 H Lactic Acid Calcium 8.1 L Magnesium Iron TIBC Direct Bilirubin AST 52 H Alkaline Phosphatase 188 H Troponin T C-Reactive Protein Total Protein Albumin 2.0 L LDL Cholesterol Direct HDL Cholesterol Vitamin B12 Folate TSH Urine WBC (Auto) Urine Creatinine Urine Total Protein [place] Screen [place] Titer Complement C3 Complement C4 02/16/19 02/16/19 02/17/19 21:52 23:51 04:43 WBC RBC 3.48 L Hgb Hct RDW 15.8 H Plt Count Seg Neuts % (Manual) 87.0 H Lymphocytes % (Manual) 6.0 L Seg Neutrophils # Man Lymphocytes # (Manual) 0.5 L PT INR APTT Thrombin Time POC ABG pH ABG pH POC ABG pCO2 POC ABG pO2 ABG pO2 ABG HCO3 ABG O2 Saturation ABG Base Excess ABG Hemoglobin Oxyhemoglobin Sodium Potassium Chloride Carbon Dioxide BUN Creatinine Glucose POC Glucose 177 H 161 H Lactic Acid Calcium Magnesium Iron TIBC Direct Bilirubin AST Alkaline Phosphatase Troponin T C-Reactive Protein Total Protein Albumin LDL Cholesterol Direct HDL Cholesterol Vitamin B12 Folate TSH Urine WBC (Auto) Urine Creatinine Urine Total Protein [place] Screen [place] Titer Complement C3 Complement C4 02/17/19 02/17/19 02/17/19 04:43 05:05 18:16 WBC RBC Hgb Hct RDW Plt Count Seg Neuts % (Manual) Lymphocytes % (Manual) Seg Neutrophils # Man Lymphocytes # (Manual) PT INR APTT Thrombin Time POC ABG pH ABG pH POC ABG pCO2 POC ABG pO2 ABG pO2 ABG HCO3 ABG O2 Saturation ABG Base Excess ABG Hemoglobin Oxyhemoglobin Sodium Potassium Chloride 110.2 H Carbon Dioxide 21 L BUN 90 H Creatinine Glucose 164 H POC Glucose 166 H 123 H Lactic Acid Calcium 8.2 L Magnesium Iron TIBC Direct Bilirubin AST 59 H Alkaline Phosphatase 224 H Troponin T C-Reactive Protein Total Protein 6.2 L Albumin 1.9 L LDL Cholesterol Direct HDL Cholesterol Vitamin B12 Folate TSH Urine WBC (Auto) Urine Creatinine Urine Total Protein [place] Screen [place] Titer Complement C3 Complement C4 02/17/19 02/18/19 02/18/19 22:15 00:14 05:23 WBC RBC Hgb Hct RDW Plt Count Seg Neuts % (Manual) Lymphocytes % (Manual) Seg Neutrophils # Man Lymphocytes # (Manual) PT INR APTT Thrombin Time POC ABG pH ABG pH POC ABG pCO2 POC ABG pO2 ABG pO2 ABG HCO3 ABG O2 Saturation ABG Base Excess ABG Hemoglobin Oxyhemoglobin Sodium Potassium Chloride Carbon Dioxide BUN Creatinine Glucose POC Glucose 135 H 142 H 175 H Lactic Acid Calcium Magnesium Iron TIBC Direct Bilirubin AST Alkaline Phosphatase Troponin T C-Reactive Protein Total Protein Albumin LDL Cholesterol Direct HDL Cholesterol Vitamin B12 Folate TSH Urine WBC (Auto) Urine Creatinine Urine Total Protein [place] Screen [place] Titer Complement C3 Complement C4 02/18/19 02/18/19 02/18/19 11:20 17:14 22:03 WBC RBC Hgb Hct RDW Plt Count Seg Neuts % (Manual) Lymphocytes % (Manual) Seg Neutrophils # Man Lymphocytes # (Manual) PT INR APTT Thrombin Time POC ABG pH ABG pH POC ABG pCO2 POC ABG pO2 ABG pO2 ABG HCO3 ABG O2 Saturation ABG Base Excess ABG Hemoglobin Oxyhemoglobin Sodium Potassium Chloride Carbon Dioxide BUN Creatinine Glucose POC Glucose 139 H 139 H 150 H Lactic Acid Calcium Magnesium Iron TIBC Direct Bilirubin AST Alkaline Phosphatase Troponin T C-Reactive Protein Total Protein Albumin LDL Cholesterol Direct HDL Cholesterol Vitamin B12 Folate TSH Urine WBC (Auto) Urine Creatinine Urine Total Protein [place] Screen [place] Titer Complement C3 Complement C4 02/18/19 02/19/19 02/19/19 23:53 05:15 11:19 WBC RBC Hgb Hct RDW Plt Count Seg Neuts % (Manual) Lymphocytes % (Manual) Seg Neutrophils # Man Lymphocytes # (Manual) PT INR APTT Thrombin Time POC ABG pH ABG pH POC ABG pCO2 POC ABG pO2 ABG pO2 ABG HCO3 ABG O2 Saturation ABG Base Excess ABG Hemoglobin Oxyhemoglobin Sodium Potassium Chloride Carbon Dioxide BUN Creatinine Glucose POC Glucose 140 H 161 H 146 H Lactic Acid Calcium Magnesium Iron TIBC Direct Bilirubin AST Alkaline Phosphatase Troponin T C-Reactive Protein Total Protein Albumin LDL Cholesterol Direct HDL Cholesterol Vitamin B12 Folate TSH Urine WBC (Auto) Urine Creatinine Urine Total Protein [place] Screen [place] Titer Complement C3 Complement C4 02/19/19 02/20/19 02/20/19 17:34 01:11 05:40 WBC RBC Hgb Hct RDW Plt Count Seg Neuts % (Manual) Lymphocytes % (Manual) Seg Neutrophils # Man Lymphocytes # (Manual) PT INR APTT Thrombin Time POC ABG pH ABG pH POC ABG pCO2 POC ABG pO2 ABG pO2 ABG HCO3 ABG O2 Saturation ABG Base Excess ABG Hemoglobin Oxyhemoglobin Sodium Potassium Chloride Carbon Dioxide BUN Creatinine Glucose POC Glucose 133 H 137 H 150 H Lactic Acid Calcium Magnesium Iron TIBC Direct Bilirubin AST Alkaline Phosphatase Troponin T C-Reactive Protein Total Protein Albumin LDL Cholesterol Direct HDL Cholesterol Vitamin B12 Folate TSH Urine WBC (Auto) Urine Creatinine Urine Total Protein [place] Screen [place] Titer Complement C3 Complement C4 02/20/19 02/20/19 02/20/19 07:05 07:05 11:27 WBC RBC 3.34 L Hgb 10.0 L Hct RDW 16.4 H Plt Count Seg Neuts % (Manual) 87.0 H Lymphocytes % (Manual) 4.0 L Seg Neutrophils # Man Lymphocytes # (Manual) 0.3 L PT INR APTT Thrombin Time POC ABG pH ABG pH POC ABG pCO2 POC ABG pO2 ABG pO2 ABG HCO3 ABG O2 Saturation ABG Base Excess ABG Hemoglobin Oxyhemoglobin Sodium Potassium Chloride 112.1 H Carbon Dioxide BUN 84 H Creatinine Glucose 150 H POC Glucose 141 H Lactic Acid Calcium Magnesium Iron TIBC Direct Bilirubin AST Alkaline Phosphatase Troponin T C-Reactive Protein Total Protein Albumin LDL Cholesterol Direct HDL Cholesterol Vitamin B12 Folate TSH Urine WBC (Auto) Urine Creatinine Urine Total Protein [place] Screen [place] Titer Complement C3 Complement C4 02/20/19 02/20/19 02/20/19 18:19 21:57 23:02 WBC RBC Hgb Hct RDW Plt Count Seg Neuts % (Manual) Lymphocytes % (Manual) Seg Neutrophils # Man Lymphocytes # (Manual) PT INR APTT Thrombin Time POC ABG pH ABG pH POC ABG pCO2 POC ABG pO2 ABG pO2 ABG HCO3 ABG O2 Saturation ABG Base Excess ABG Hemoglobin Oxyhemoglobin Sodium Potassium Chloride Carbon Dioxide BUN Creatinine Glucose POC Glucose 170 H 150 H 137 H Lactic Acid Calcium Magnesium Iron TIBC Direct Bilirubin AST Alkaline Phosphatase Troponin T C-Reactive Protein Total Protein Albumin LDL Cholesterol Direct HDL Cholesterol Vitamin B12 Folate TSH Urine WBC (Auto) Urine Creatinine Urine Total Protein [place] Screen [place] Titer Complement C3 Complement C4 02/21/19 02/21/19 02/21/19 05:44 07:10 07:10 WBC RBC 3.19 L Hgb 9.4 L Hct 29.2 L RDW 16.2 H Plt Count Seg Neuts % (Manual) 91.0 H Lymphocytes % (Manual) 7.0 L Seg Neutrophils # Man Lymphocytes # (Manual) 0.5 L PT INR APTT Thrombin Time POC ABG pH ABG pH POC ABG pCO2 POC ABG pO2 ABG pO2 ABG HCO3 ABG O2 Saturation ABG Base Excess ABG Hemoglobin Oxyhemoglobin Sodium Potassium Chloride 112.4 H Carbon Dioxide 21 L BUN 86 H Creatinine Glucose 126 H POC Glucose 129 H Lactic Acid Calcium 8.1 L Magnesium Iron TIBC Direct Bilirubin AST 56 H Alkaline Phosphatase 150 H Troponin T C-Reactive Protein Total Protein 5.7 L Albumin 1.9 L LDL Cholesterol Direct HDL Cholesterol Vitamin B12 Folate TSH Urine WBC (Auto) Urine Creatinine Urine Total Protein [place] Screen [place] Titer Complement C3 Complement C4 02/21/19 02/21/19 02/22/19 11:28 16:50 00:54 WBC RBC Hgb Hct RDW Plt Count Seg Neuts % (Manual) Lymphocytes % (Manual) Seg Neutrophils # Man Lymphocytes # (Manual) PT INR APTT Thrombin Time POC ABG pH ABG pH POC ABG pCO2 POC ABG pO2 ABG pO2 ABG HCO3 ABG O2 Saturation ABG Base Excess ABG Hemoglobin Oxyhemoglobin Sodium Potassium Chloride Carbon Dioxide BUN Creatinine Glucose POC Glucose 114 H 111 H 51 L Lactic Acid Calcium Magnesium Iron TIBC Direct Bilirubin AST Alkaline Phosphatase Troponin T C-Reactive Protein Total Protein Albumin LDL Cholesterol Direct HDL Cholesterol Vitamin B12 Folate TSH Urine WBC (Auto) Urine Creatinine Urine Total Protein [place] Screen [place] Titer Complement C3 Complement C4 02/22/19 02/22/19 02/22/19 00:59 04:13 04:13 WBC RBC 3.35 L Hgb 9.9 L Hct RDW 16.8 H Plt Count Seg Neuts % (Manual) 97.0 H Lymphocytes % (Manual) 1.0 L Seg Neutrophils # Man 9.7 H Lymphocytes # (Manual) 0.1 L PT INR APTT Thrombin Time POC ABG pH ABG pH POC ABG pCO2 POC ABG pO2 ABG pO2 ABG HCO3 ABG O2 Saturation ABG Base Excess ABG Hemoglobin Oxyhemoglobin Sodium Potassium Chloride 110.8 H Carbon Dioxide BUN 83 H Creatinine Glucose 157 H POC Glucose 144 H Lactic Acid Calcium Magnesium Iron TIBC Direct Bilirubin AST Alkaline Phosphatase Troponin T C-Reactive Protein Total Protein Albumin LDL Cholesterol Direct HDL Cholesterol Vitamin B12 Folate TSH Urine WBC (Auto) Urine Creatinine Urine Total Protein [place] Screen [place] Titer Complement C3 Complement C4 02/22/19 02/22/19 02/22/19 05:01 11:49 17:33 WBC RBC Hgb Hct RDW Plt Count Seg Neuts % (Manual) Lymphocytes % (Manual) Seg Neutrophils # Man Lymphocytes # (Manual) PT INR APTT Thrombin Time POC ABG pH ABG pH POC ABG pCO2 POC ABG pO2 ABG pO2 ABG HCO3 ABG O2 Saturation ABG Base Excess ABG Hemoglobin Oxyhemoglobin Sodium Potassium Chloride Carbon Dioxide BUN Creatinine Glucose POC Glucose 135 H 148 H 123 H Lactic Acid Calcium Magnesium Iron TIBC Direct Bilirubin AST Alkaline Phosphatase Troponin T C-Reactive Protein Total Protein Albumin LDL Cholesterol Direct HDL Cholesterol Vitamin B12 Folate TSH Urine WBC (Auto) Urine Creatinine Urine Total Protein [place] Screen [place] Titer Complement C3 Complement C4 02/22/19 02/22/19 02/23/19 21:06 23:52 05:19 WBC RBC Hgb Hct RDW Plt Count Seg Neuts % (Manual) Lymphocytes % (Manual) Seg Neutrophils # Man Lymphocytes # (Manual) PT INR APTT Thrombin Time POC ABG pH ABG pH POC ABG pCO2 POC ABG pO2 ABG pO2 ABG HCO3 ABG O2 Saturation ABG Base Excess ABG Hemoglobin Oxyhemoglobin Sodium Potassium Chloride Carbon Dioxide BUN Creatinine Glucose POC Glucose 133 H 155 H 136 H Lactic Acid Calcium Magnesium Iron TIBC Direct Bilirubin AST Alkaline Phosphatase Troponin T C-Reactive Protein Total Protein Albumin LDL Cholesterol Direct HDL Cholesterol Vitamin B12 Folate TSH Urine WBC (Auto) Urine Creatinine Urine Total Protein [place] Screen [place] Titer Complement C3 Complement C4 02/23/19 02/23/19 02/24/19 17:50 21:40 00:02 WBC RBC Hgb Hct RDW Plt Count Seg Neuts % (Manual) Lymphocytes % (Manual) Seg Neutrophils # Man Lymphocytes # (Manual) PT INR APTT Thrombin Time POC ABG pH ABG pH POC ABG pCO2 POC ABG pO2 ABG pO2 ABG HCO3 ABG O2 Saturation ABG Base Excess ABG Hemoglobin Oxyhemoglobin Sodium Potassium Chloride Carbon Dioxide BUN Creatinine Glucose POC Glucose 135 H 163 H 152 H Lactic Acid Calcium Magnesium Iron TIBC Direct Bilirubin AST Alkaline Phosphatase Troponin T C-Reactive Protein Total Protein Albumin LDL Cholesterol Direct HDL Cholesterol Vitamin B12 Folate TSH Urine WBC (Auto) Urine Creatinine Urine Total Protein [place] Screen [place] Titer Complement C3 Complement C4 02/24/19 02/24/19 02/24/19 05:03 10:52 10:52 WBC RBC 2.95 L Hgb 8.9 L Hct 27.8 L RDW 17.7 H Plt Count 123 L Seg Neuts % (Manual) Lymphocytes % (Manual) Seg Neutrophils # Man Lymphocytes # (Manual) PT INR APTT Thrombin Time POC ABG pH ABG pH POC ABG pCO2 POC ABG pO2 ABG pO2 ABG HCO3 ABG O2 Saturation ABG Base Excess ABG Hemoglobin Oxyhemoglobin Sodium 149 H Potassium Chloride 114.7 H Carbon Dioxide BUN 80 H Creatinine Glucose 109 H POC Glucose 140 H Lactic Acid Calcium 8.1 L Magnesium Iron TIBC Direct Bilirubin AST Alkaline Phosphatase Troponin T C-Reactive Protein Total Protein Albumin LDL Cholesterol Direct HDL Cholesterol Vitamin B12 Folate TSH Urine WBC (Auto) Urine Creatinine Urine Total Protein [place] Screen [place] Titer Complement C3 Complement C4 02/24/19 02/24/19 02/24/19 17:41 21:45 23:13 WBC RBC Hgb Hct RDW Plt Count Seg Neuts % (Manual) Lymphocytes % (Manual) Seg Neutrophils # Man Lymphocytes # (Manual) PT INR APTT Thrombin Time POC ABG pH ABG pH POC ABG pCO2 POC ABG pO2 ABG pO2 ABG HCO3 ABG O2 Saturation ABG Base Excess ABG Hemoglobin Oxyhemoglobin Sodium Potassium Chloride Carbon Dioxide BUN Creatinine Glucose POC Glucose 115 H 144 H 144 H Lactic Acid Calcium Magnesium Iron TIBC Direct Bilirubin AST Alkaline Phosphatase Troponin T C-Reactive Protein Total Protein Albumin LDL Cholesterol Direct HDL Cholesterol Vitamin B12 Folate TSH Urine WBC (Auto) Urine Creatinine Urine Total Protein [place] Screen [place] Titer Complement C3 Complement C4 02/25/19 02/25/19 02/25/19 05:12 05:51 11:47 WBC RBC Hgb Hct RDW Plt Count Seg Neuts % (Manual) Lymphocytes % (Manual) Seg Neutrophils # Man Lymphocytes # (Manual) PT INR APTT Thrombin Time POC ABG pH ABG pH POC ABG pCO2 POC ABG pO2 130 H ABG pO2 ABG HCO3 ABG O2 Saturation ABG Base Excess ABG Hemoglobin Oxyhemoglobin Sodium Potassium Chloride Carbon Dioxide BUN Creatinine Glucose POC Glucose 163 H 125 H Lactic Acid Calcium Magnesium Iron TIBC Direct Bilirubin AST Alkaline Phosphatase Troponin T C-Reactive Protein Total Protein Albumin LDL Cholesterol Direct HDL Cholesterol Vitamin B12 Folate TSH Urine WBC (Auto) Urine Creatinine Urine Total Protein [place] Screen [place] Titer Complement C3 Complement C4
[2019-02-25] MEDS ORDERED: LORazepam 2 MG/ML VIAL IV PRN (12:19)
[2019-02-25] MEDS: HALOPERIDOL LACTATE 5 MG/1 ML INJ IV SCH ×2 (13:07→20:47)
--- NOTE | 2019-02-25 18:01 | Progress Note ---
Assessment and Plan Assessment and plan: 53 year old woman who was brought in by her family for unsteady gait, fatigue, and withdrawn behavior. I finally noticed difficult to it fine motor skills throughout that night she was having difficulty expressing herself. she was at a restaurant family I will continue to point to the menu. She became more disoriented and less responsive prompting family to bring her to the emergency room - Acute respiratory failure on MV > 96 hours Continue mechanical ventilator, plan for transfer to LTAC for slow weaning, Status post trach and PEG 02/21 Bleeding from tracheostomy Oozing vessel was ligated on 02/24, discussed with general surgeon severe Sepsis Strep pneumoniae bacteremia Right neck cellulitis vs neck LAD PNA meningitis TERRENCE neg for vegatations * Has completed antibiotics. 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 fib. Will need anticoagulation when bleeding risk is re duced -Atrial fibrillation with RVR Management per Cardiology History of lupus? families is unclear on this medical history, but know that she has some form of autoimmune disease Compliments are reduced, CHESTER is positive, anti ds dna pending, highly suspect lupus cont steroids Acute metabolic encephalopathy Likely due to sepsis, eeg neg for seizure, neuro input appreciated Acute respiratory failure on MV > 96 hours cont vent per pulmonology Type 2 OR - cardiology input appreciated, rx the underlying cause Thrombocytopenia likely due to sepsis or autoimmune phenomenon, hematology input appreciated, hiv-negative, fibrinogen level is not low, PT PTT is normal. Status post platelet transfusion, improved Macrocytic anemia Hematology input appreciated, folic acid was low, repleted Hypothyroidism TSH elevated, synthroid dose increased -repeat TFTs in 4-6 wks Hypokalemia, was supplemented Prognosis is guarded The high probability of a clinically significant, sudden or life threatening deterioration of the [CV, Neurology, renal] system(s) required my full and direct attention, intervention and personal management. The aggregate critical care time was [45] minutes. This time is in addition to time spent performing reported procedures but includes the following: [x] Data Review and interpretation [x] Patient assessment and monitoring of vital signs [x] Documentation [x] Medication orders and management History Interval history: no fever, no vomiting, no agitation -no seizures or vomiting Hospitalist Physical - Physical exam Narrative exam: General.: no distress, nontoxic HEENT: Moist mucous membranes, extraocular muscles intact, no lymphadenopathy Neck: supple, trache noted Cardiac: S1-S2 heard Lungs: clear to auscultation bilaterally Abdomen: soft , nontender, nondistended, bowel sounds positive, PEG in place Extremities: no edema clubbing or cyanosis Skin: no rash or lesions Neurologic: left hemiparesis, opens eyes, obeys commands Psych: calm, and cooperative - Constitutional Vitals: Temp Pulse Resp BP Pulse Ox 98.6 F 56 L 14 160/77 97 02/25/19 16:00 02/25/19 16:00 02/25/19 16:00 02/25/19 16:00 02/25/19 16:00 General appearance: Present: mild distress, well-nourished, other (Intubated) Results - Labs CBC & Chem 7: 02/24/19 10:52 02/24/19 10:52 Labs: Laboratory Last Values WBC 7.8 K/mm3 (4.5-11.0) 02/24/19 10:52 RBC 2.95 M/mm3 (3.65-5.03) L 02/24/19 10:52 Hgb 8.9 gm/dl (10.1-14.3) L 02/24/19 10:52 Hct 27.8 % (30.3-42.9) L 02/24/19 10:52 MCV 94 fl (79-97) 02/24/19 10:52 MCH 30 pg (28-32) 02/24/19 10:52 MCHC 32 % (30-34) 02/24/19 10:52 RDW 17.7 % (13.2-15.2) H 02/24/19 10:52 Plt Count 123 K/mm3 (140-440) L 02/24/19 10:52 Lymph % (Auto) [employer] 02/05/19 13:02 [place] % (Auto) [employer] 02/05/19 13:02 Eos % (Auto) [employer] 02/05/19 13:02 Baso % (Auto) [employer] 02/05/19 13:02 Lymph # [employer] 02/05/19 13:02 [place] # [employer] 02/05/19 13:02 Eos # [employer] 02/05/19 13:02 Baso # [employer] 02/05/19 13:02 Add Manual Diff Complete 02/22/19 04:13 Total Counted 100 02/22/19 04:13 Seg Neutrophils % [employer] 02/22/19 04:13 Seg Neuts % (Manual) 97.0 % (40.0-70.0) H 02/22/19 04:13 1.0 % 02/22/19 04:13 1.0 % (13.4-35.0) L 02/22/19 04:13 Reactive Lymphs % (Man) 0 % 02/22/19 04:13 0 % (0.0-7.3) 02/22/19 04:13 0 % (0.0-4.3) 02/22/19 04:13 0 % (0.0-1.8) 02/22/19 04:13 1.0 % 02/22/19 04:13 0 % 02/22/19 04:13 0 % 02/22/19 04:13 0 % 02/22/19 04:13 Nucleated RBC % Not Reportable 02/22/19 04:13 Seg Neutrophils # [employer] 02/05/19 13:02 Seg Neutrophils # Man 9.7 K/mm3 (1.8-7.7) H 02/22/19 04:13 Band Neutrophils # 0.1 K/mm3 02/22/19 04:13 0.1 K/mm3 (1.2-5.4) L 02/22/19 04:13 Abs React Lymphs (Man) 0.0 K/mm3 02/22/19 04:13 0.0 K/mm3 (0.0-0.8) 02/22/19 04:13 0.0 K/mm3 (0.0-0.4) 02/22/19 04:13 0.0 K/mm3 (0.0-0.1) 02/22/19 04:13 0.1 K/mm3 02/22/19 04:13 0.0 K/mm3 02/22/19 04:13 0.0 K/mm3 02/22/19 04:13 Blast Cells # 0.0 K/mm3 02/22/19 04:13 WBC Morphology Not Reportable 02/22/19 04:13 Hypersegmented Neuts Not Reportable 02/22/19 04:13 Hyposegmented Neuts Not Reportable 02/22/19 04:13 Hypogranular Neuts Not Reportable 02/22/19 04:13 Cancelled 02/01/19 07:16 Not Reportable 02/22/19 04:13 Not Reportable 02/22/19 04:13 Not Reportable 02/22/19 04:13 Not Reportable 02/22/19 04:13 Not Reportable 02/22/19 04:13 Not Reportable 02/22/19 04:13 Consistent w auto 02/22/19 04:13 Not Reportable 02/22/19 04:13 Plt Clumps, EDTA Not Reportable 02/22/19 04:13 Few 02/22/19 04:13 Not Reportable 02/22/19 04:13 Not Reportable 02/22/19 04:13 Plt Morphology Comment Not Reportable 02/22/19 04:13 RBC Morphology Not Reportable 02/22/19 04:13 Dimorphic RBCs Not Reportable 02/22/19 04:13 Not Reportable 02/22/19 04:13 Not Reportable 02/22/19 04:13 Not Reportable 02/22/19 04:13 Cancelled 02/01/19 07:16 Not Reportable 02/22/19 04:13 Not Reportable 02/22/19 04:13 Not Reportable 02/22/19 04:13 Not Reportable 02/22/19 04:13 Not Reportable 02/22/19 04:13 Not Reportable 02/22/19 04:13 Rare 02/22/19 04:13 Not Reportable 02/22/19 04:13 Not Reportable 02/22/19 04:13 Cancelled 02/01/19 07:16 Not Reportable 02/22/19 04:13 Not Reportable 02/22/19 04:13 Not Reportable 02/22/19 04:13 Not Reportable 02/22/19 04:13 Not Reportable 02/22/19 04:13 Not Reportable 02/22/19 04:13 Not Reportable 02/22/19 04:13 Acanthocytes (Spur) Not Reportable 02/22/19 04:13 Rouleaux Not Reportable 02/22/19 04:13 Not Reportable 02/22/19 04:13 1+ 02/22/19 04:13 Not Reportable 02/22/19 04:13 ESR 76 mm/Hr (0-20) 02/01/19 16:51 Not Reportable 02/22/19 04:13 Hem Pathologist Commnt No 02/22/19 04:13 PT 13.7 Sec. (12.2-14.9) 02/24/19 10:52 INR 1.08 (0.87-1.13) 02/24/19 10:52 APTT 33.1 Sec. (24.2-36.6) 02/06/19 07:35 20.0 Sec. (15.1-19.6) H 02/01/19 07:16 479 mg/dl (211-480) 02/03/19 14:42 POC ABG pH 7.416 (7.35-7.45) 02/25/19 05:12 ABG pH 7.440 pH Units (7.350-7.450) 02/11/19 04:10 POC ABG pCO2 35.1 (35-45) 02/25/19 05:12 ABG pCO2 37.4 mm Hg 02/11/19 04:10 POC ABG pO2 130 (80-105) H 02/25/19 05:12 ABG pO2 69.4 mm Hg (80.0-90.0) L 02/11/19 04:10 POC ABG HCO3 22.5 (22-26 mml/L) 02/25/19 05:12 ABG HCO3 24.8 mmol/L (20.0-26.0) 02/11/19 04:10 POC ABG Total CO2 24 (23-27mmol/L) 02/25/19 05:12 POC ABG O2 Sat 99 02/25/19 05:12 ABG O2 Saturation 94.2 % (95.0-99.0) L 02/11/19 04:10 ABG O2 Content 14.3 (0.0-44) 02/11/19 04:10 POC ABG Base Excess -2 ((-2) - (+3)mmol/L) 02/25/19 05:12 ABG Base Excess 0.8 mmol/L (-2.0-3.0) 02/11/19 04:10 ABG Hemoglobin 11.0 gm/dl (12.0-16.0) L 02/11/19 04:10 ABG Carboxyhemoglobin 1.5 % (0.0-5.0) 02/11/19 04:10 ABG Methemoglobin 0.7 % (0.0-1.5) 02/11/19 04:10 92.1 % (95.0-99.0) L 02/11/19 04:10 30 % 02/25/19 05:12 Sodium 149 mmol/L (137-145) H 02/24/19 10:52 Potassium 4.3 mmol/L (3.6-5.0) 02/24/19 10:52 Chloride 114.7 mmol/L (98-107) H 02/24/19 10:52 Carbon Dioxide 25 mmol/L (22-30) 02/24/19 10:52 14 mmol/L 02/24/19 10:52 BUN 80 mg/dL (7-17) H 02/24/19 10:52 0.9 mg/dL (0.7-1.2) 02/24/19 10:52 Estimated GFR > 60 ml/min 02/24/19 10:52 89 % 02/24/19 10:52 Glucose 109 mg/dL (65-100) H 02/24/19 10:52 POC Glucose 116 (70-105) H 02/25/19 17:21 Lactic Acid 1.40 mmol/L (0.7-2.0) 02/01/19 20:57 Calcium 8.1 mg/dL (8.4-10.2) L 02/24/19 10:52 Phosphorus 3.20 mg/dL (2.5-4.5) 02/20/19 07:05 Magnesium 1.70 mg/dL (1.7-2.3) 02/20/19 07:05 Iron 11 ug/dL (37-170) L 02/03/19 14:42 TIBC 88 mcg/dL (250-450) L 02/03/19 14:42 332.9 ng/mL (13.0-400.0) 02/03/19 14:42 0.30 mg/dL (0.1-1.2) 02/21/19 07:10 0.7 mg/dL (0-0.2) H 02/01/19 07:29 0.5 mg/dL 02/01/19 07:29 AST 56 units/L (5-40) H 02/21/19 07:10 ALT 29 units/L (7-56) 02/21/19 07:10 150 units/L (35-129) H 02/21/19 07:10 0.181 ng/mL (0.00-0.029) H* 02/01/19 07:16 32.30 mg/dL (0.00-1.30) H 02/01/19 17:04 5.7 g/dL (6.3-8.2) L 02/21/19 07:10 1.9 g/dL (3.9-5) L 02/21/19 07:10 0.5 % 02/21/19 07:10 Triglycerides 95 mg/dL (2-149) 02/01/19 07:16 Cholesterol 75 mg/dL (50-199) 02/01/19 07:16 34 mg/dL (50-130) L 02/01/19 07:16 20 mg/dL (40-59) L 02/01/19 07:16 3.75 % 02/01/19 07:16 Vitamin B12 1468 pg/mL (211-911) H 02/03/19 14:42 5.18 ng/mL (7.3-26.0) L 02/03/19 14:42 TSH 8.470 mlU/mL (0.270-4.200) H 02/01/19 07:43 Free T4 1.08 ng/dL (0.76-1.46) 02/01/19 07:43 Sara (Yellow) 02/01/19 09:45 Cloudy (Clear) 02/01/19 09:45 5.0 (5.0-7.0) 02/01/19 09:45 Ur Specific [place] 1.019 (1.003-1.030) 02/01/19 09:45 >500 mg/dL (Negative) 02/01/19 09:45 Neg mg/dL (Negative) 02/01/19 09:45 Neg mg/dL (Negative) 02/01/19 09:45 Mod (Negative) 02/01/19 09:45 Neg (Negative) 02/01/19 09:45 Neg (Negative) 02/01/19 09:45 < 2.0 mg/dL (<2.0) 02/01/19 09:45 Ur Leukocyte Esterase Neg (Negative) 02/01/19 09:45 10.0 /HPF (0.0-6.0) H 02/09/19 13:35 10.0 /HPF (0.0-6.0) 02/09/19 13:35 U Epithel Cells (Auto) 3.0 /HPF (0-13.0) 02/09/19 13:35 Amorphous Crystals 1+ 02/01/19 09:45 Few /HPF 02/09/19 13:35 92.9 mg/dL (0.1-20.0) H 02/09/19 18:54 Protein/Creatinin Ratio 1.25 02/09/19 18:54 116 mg/dL (5-11.8) H 02/09/19 18:54 Turbid 02/05/19 14:10 Colorless 02/05/19 14:10 1250 /mm3 (1-10) 02/05/19 14:10 30 /mm3 (0-0) 02/05/19 14:10 CSF Seg Neutrophils 30.0 % (0-6) 02/05/19 14:10 40.0 % (40-80) 02/05/19 14:10 CSF Reactive Lymphs 0 % 02/05/19 14:10 30.0 % (15-45) 02/05/19 14:10 0 % 02/05/19 14:10 0 % 02/05/19 14:10 C 02/05/19 14:10 38 mg/dL 02/05/19 14:10 140 mg/dL 02/05/19 14:10 Random Vancomycin 9.8 ug/mL (0-40.0) 02/03/19 03:30 CHESTER Screen Positive (Negative) H 02/01/19 17:04 CHESTER Titer 1:320 (Negative) H 02/01/19 17:04 CHESTER Pattern Speckled 02/01/19 17:04 Proteinase 3 (PR3) Ab <1.0 AI (<1.0) 02/01/19 19:28 Myeloperoxidase Ab <1.0 AI (<1.0) 02/01/19 19:28 Double Strand DNA Ab 1 IU/mL (<=4) 02/11/19 04:54 36 mg/dL (83-193) L 02/01/19 16:51 12 mg/dL (15-57) L 02/01/19 16:51 RPR Nonreactive (Nonreactive) 02/02/19 15:45 Hepatitis A IgM Ab Non-reactive (NonReactive) 02/02/19 19:29 Hep Bs Antigen Non-reactive (Negative) 02/02/19 19:29 Hep B Core IgM Ab Non-reactive (NonReactive) 02/02/19 19:29 Non-reactive (NonReactive) 02/02/19 19:29 HIV 1&2 Antibody Rapid Non react (Non React) 02/02/19 15:46 Non react (Non React) 02/02/19 15:46 Flexitest 1 02/02/19 13:02 Blood Type B POSITIVE 02/24/19 10:52 Antibody Screen Negative 02/24/19 10:52 Active Medications - Current Medications Current Medications: Generic Name Dose Route Start Last Admin Trade Name Freq PRN Reason Stop Dose Admin Acetaminophen 650 mg 02/01/19 10:47 02/22/19 21:02 Tylenol PO 650 mg Q4H PRN Administration Pain MILD(1-3)/Fever >100.5/VALENZUELA Albuterol 2.5 mg 02/01/19 10:47 Proventil IH Q4HRT PRN Shortness Of Breath Albuterol/Ipratropium 1 ampul 02/01/19 12:00 02/25/19 13:39 Duoneb *Not For Prn Use* IH 1 ampul Q6HRT AMOL Administration Lipase/Protease/Amylase 1 each 02/22/19 08:27 Pancreemeka [place] 10,500 Unit FEEDTUBE PRN PRN For Clogged Feeding Tube Diltiazem HCl 60 mg 02/13/19 12:00 02/25/19 13:06 Cardizem PO 60 mg Q6H AMOL Administration Fentanyl 50 mcg 02/19/19 16:20 Sublimaze IV ONCE PRN Pain , Severe (7-10) Folic Acid 1 mg 02/06/19 10:00 02/25/19 09:36 Folvite PO 1 mg QDAY AMOL Administration Haloperidol Lactate 5 mg 02/25/19 13:00 02/25/19 13:07 Haldol IV 5 mg Q8H AMOL Administration Hydralazine HCl 10 mg 02/13/19 22:15 02/25/19 06:57 Apresoline IV 10 mg Q6H PRN Administration Hypertension Hydrophilic Ointment 1 applic 02/01/19 11:09 02/19/19 21:54 Vaseline Lip Therapy TP 1 applic Q2HR PRN Administration Dry Lips Insulin Glargine 15 units 02/22/19 22:00 02/24/19 21:37 Lantus SUB-Q 15 units QHS AMOL Administration Insulin Human Regular 0 units 02/10/19 19:00 02/25/19 13:06 Humulin R SUB-Q Not Given Q6HR [facility] Protocol Lansoprazole 30 mg 02/23/19 10:00 02/25/19 09:36 Prevacid Solutab FEEDTUBE 30 mg BID AMOL Administration Levothyroxine Sodium 125 mcg 02/07/19 10:00 02/25/19 09:36 Synthroid PO 125 mcg QAM AMOL Administration Lorazepam 1 mg 02/25/19 12:19 Ativan IV Q6H PRN Agitation Multi-Ingred Cream/Lotion/Oil/Oint 1 applic 02/01/19 11:09 02/08/19 21:18 Artificial Tears Ophth Oint OU 1 applic Q4HR PRN Administration Dry Eye(s) Multivitamins 5 ml 02/06/19 10:00 02/25/19 09:36 Centrum Liq PO 5 ml QDAY AMOL Administration Ondansetron HCl 4 mg 02/01/19 10:47 Zofran IV Q8H PRN Nausea And Vomiting Prednisone 20 mg 02/23/19 10:00 02/25/19 09:36 Deltasone PO 20 mg QDAY AMOL Administration Simple Syrup 15 ml 02/22/19 08:27 Simple Syrup FEEDTUBE PRN PRN Hypoglycemia Simple Syrup 30 ml 02/22/19 08:27 Simple Syrup FEEDTUBE PRN PRN Hypoglycemia Sodium Bicarbonate 325 mg 02/22/19 08:27 Sodium Bicarbonate FEEDTUBE PRN PRN For Clogged Feeding Tube Sodium Chloride 10 ml 02/01/19 22:00 02/25/19 09:37 Sodium Chloride Flush Syringe 10 Ml IV 10 ml BID AMOL Administration Sodium Chloride 10 ml 02/01/19 10:47 Sodium Chloride Flush Syringe 10 Ml IV PRN PRN LINE FLUSH Nutrition/Malnutrition Assess - Dietary Evaluation Nutrition/Malnutrition Findings: Nutrition Notes Start: 02/02/19 15:11 Freq: Status: Active Protocol: Document 02/22/19 08:21 LM (Rec: 02/22/19 08:27 LM [id number]) Nutrition Notes Initial or Follow up Reassessment Current Diagnosis Acute Kidney Injury, Respiratory Failure Other Pertinent Diagnosis Hypothyroidism, Septic shock, Acute encephalopathy, UTI Current Diet Nepro at 40 ml/hr Labs/Tests BUN 83 BG 157 Pertinent Medications Reviewed Height 5 ft 5 in Weight 95 kg [place] Body Weight (kg) 56.81 BMI 34.8 Subjective/Other Information Nepro running at 40 ml/hr at time of visit. Pt tolerating TF. s/p trach and PEG. Percent of energy/protein needs met: 92%/68% Burn Absent Trauma Absent #1 Nutrition Diagnosis Inadequate oral intake Diagnosis Progress(for reassessment Continues documentation) Is patient on ventilator? Yes Is Patient Ambulatory and/or Out of Bed No REE-([facility]-confined to bed) [phone] Calculation Used for Recommendations [facility] Additional Notes Protein Needs: 114g (2g/kg IBW ) Fluid Needs: 1 ml/kcal Nutrition Intervention Change Diet Order: Continue TF Nutrition Support: Nepro at 40ml/hr Flush with 170ml q4h Kcal 1,728 Protein (gm) 78 Fluid (mL) 697 Goal #1 Meet at least 75% of energy and portein needs Anticipated Discharge Needs: TF Follow-Up By: 02/26/19 Additional Comments F/U for TF tolerance
[2019-02-25] MEDS: INSULIN GLARGINE 100 UNITS/ML SUB-Q SCH (21:48)
[2019-02-26] MEDS: INSULIN REGULAR, HUMAN 100 UNITS/1 ML SUB-Q SCH ×3 (00:37→12:15)
[2019-02-26] MEDS: hydrALAZINE 20 MG/1 ML INJ IV PRN (00:41)
[2019-02-26] MEDS: dilTIAZem 60 MG TAB PO SCH ×3 (00:49→14:15)
[2019-02-26] MEDS: IPRATROPIUM/ALBUTEROL SULFATE 3 ML AMPUL.NEB IH SCH ×3 (03:33→16:01)
[2019-02-26] MEDS: HALOPERIDOL LACTATE 5 MG/1 ML INJ IV SCH (04:38)
--- NOTE | 2019-02-26 07:41 | Hem/Onc Progress Note ---
Assessment and Plan 1. h/o Thrombocytopenia, sepsis/infection/antibiotic related. Folate level is low, B12 is normal. Serum iron is low, but ferritin is not low. HIV negative. Fibrinogen level is not low. PT, PTT is not abnormal. Supportive care at this time will help the patient. 2. Diabetes. 3. Hypothyroidism. 4. History of renal impairment, on supportive care. 5. Intubation for respiratory issues. 6. Neurology team saw the patient. Neurology thinks it is septic metabolic encephalopathy. I will follow the patient during inpatient stay. 02/26 plt 123 - will follow anemia - low folate on replacement pt still - on vent - trach done PEG done - Patient Problems (1) Thrombocytopenia Current Visit: Yes Status: Acute Subjective Date of service: 02/26/19 Principal diagnosis: low plt - h/o anemia - CVA Interval history: no bleeding - trach - peg Objective - Exam Narrative Exam: Pain - not evaluable General appearance intubated Performance status complete dependent Eyes - no icterus ENT - no bleeding - on vent - TRACH LNs cervical not palpable Neck - no LN Respiratory Normal Breath sounds - CTA anteriorly CVS S1 S2 + Extremities normal temperature General GI Soft - PEG + Rectal deferred female - deferred Skin warm Musculoskeletal rt arm movements + Neurologically not verbal - looks at you - Constitutional Vitals: Last Vital Signs Temp 98.8 F 02/26/19 04:00 Pulse 58 L 02/26/19 07:27 Resp 13 02/26/19 07:27 BP 118/59 02/26/19 07:19 Pulse Ox 97 02/26/19 07:24 - Labs Lab Results: Laboratory Results - last 24 hr 02/25/19 02/25/19 02/25/19 11:47 17:21 23:20 POC Glucose 125 H 116 H 132 H 02/26/19 05:55 POC Glucose 110 H Medications & Allergies - Medications Allergies/Adverse Reactions: Allergies No Known Allergies Allergy (Verified 08/18/18 09:04) Home Medications: Home Medications Medication Instructions Recorded Confirmed Last Taken Type Levothyroxine [Synthroid] 112 mcg PO QAM 02/01/19 02/01/19 Unknown History Lisinopril [Zestril TAB] 40 mg PO QDAY 02/01/19 02/01/19 Unknown History amLODIPine [Norvasc] 10 mg PO DAILY 02/01/19 02/01/19 Unknown History cloNIDine [Catapres] 1 mg PO QDAY 02/01/19 02/01/19 Unknown History Active Medications: Generic Name Dose Route Start Last Admin Trade Name Jordan PRN Reason Stop Dose Admin Acetaminophen 650 mg 02/01/19 10:47 02/22/19 21:02 Tylenol PO 650 mg Q4H PRN Administration Pain MILD(1-3)/Fever >100.5/VALENZUELA Albuterol 2.5 mg 02/01/19 10:47 Proventil IH Q4HRT PRN Shortness Of Breath Albuterol/Ipratropium 1 ampul 02/01/19 12:00 02/26/19 07:31 Duoneb *Not For Prn Use* IH 1 ampul Q6HRT AMOL Administration Lipase/Protease/Amylase 1 each 02/22/19 08:27 Pancreaze 10,500 Unit FEEDTUBE PRN PRN For Clogged Feeding Tube Diltiazem HCl 60 mg 02/13/19 12:00 02/26/19 06:00 Cardizem PO 60 mg Q6H AMOL Administration Fentanyl 50 mcg 02/19/19 16:20 Sublimaze IV ONCE PRN Pain , Severe (7-10) Folic Acid 1 mg 02/06/19 10:00 02/25/19 09:36 Folvite PO 1 mg QDAY AMOL Administration Haloperidol Lactate 5 mg 02/25/19 13:00 02/26/19 04:38 Haldol IV 5 mg Q8H AMOL Administration Hydralazine HCl 10 mg 02/13/19 22:15 02/26/19 00:41 Apresoline IV 10 mg Q6H PRN Administration Hypertension Hydrophilic Ointment 1 applic 02/01/19 11:09 02/19/19 21:54 Vaseline Lip Therapy TP 1 applic Q2HR PRN Administration Dry Lips Insulin Glargine 15 units 02/22/19 22:00 02/25/19 21:48 Lantus SUB-Q 15 units QHS AMOL Administration Insulin Human Regular 0 units 02/10/19 19:00 02/26/19 06:00 Humulin R SUB-Q Not Given Q6HR [facility] Protocol Lansoprazole 30 mg 02/23/19 10:00 02/25/19 21:49 Prevacid Solutab FEEDTUBE 30 mg BID AMOL Administration Levothyroxine Sodium 125 mcg 02/07/19 10:00 02/25/19 09:36 Synthroid PO 125 mcg QAM AMOL Administration Lorazepam 1 mg 02/25/19 12:19 02/26/19 00:41 Ativan IV 1 mg Q6H PRN Administration Agitation Multi-Ingred Cream/Lotion/Oil/Oint 1 applic 02/01/19 11:09 02/08/19 21:18 Artificial Tears Ophth Oint OU 1 applic Q4HR PRN Administration Dry Eye(s) Multivitamins 5 ml 02/06/19 10:00 02/25/19 09:36 Centrum Liq PO 5 ml QDAY AMOL Administration Ondansetron HCl 4 mg 02/01/19 10:47 Zofran IV Q8H PRN Nausea And Vomiting Prednisone 20 mg 02/23/19 10:00 02/25/19 09:36 Deltasone PO 20 mg QDAY AMOL Administration Simple Syrup 15 ml 02/22/19 08:27 Simple Syrup FEEDTUBE PRN PRN Hypoglycemia Simple Syrup 30 ml 02/22/19 08:27 Simple Syrup FEEDTUBE PRN PRN Hypoglycemia Sodium Bicarbonate 325 mg 02/22/19 08:27 Sodium Bicarbonate FEEDTUBE PRN PRN For Clogged Feeding Tube Sodium Chloride 10 ml 02/01/19 22:00 02/25/19 21:49 Sodium Chloride Flush Syringe 10 Ml IV 10 ml BID AMOL Administration Sodium Chloride 10 ml 02/01/19 10:47 Sodium Chloride Flush Syringe 10 Ml IV PRN PRN LINE FLUSH
[2019-02-26] MEDS: LEVOTHYROXINE 125 MCG TAB PO SCH (09:43)
[2019-02-26] MEDS: predniSONE 20 MG TAB PO SCH (09:43)
[2019-02-26] MEDS: LANSOPRAZOLE 30 MG SOLUTAB FEEDTUBE SCH (09:44)
[2019-02-26] MEDS: MULTIVITAMINS 5 ML ORAL LIQUID PO SCH (09:44)
[2019-02-26] MEDS: FOLIC ACID 1 MG TAB PO SCH (09:44)
--- NOTE | 2019-02-26 09:56 | Progress Note ---
Assessment and Plan Assessment and plan: 53 year old woman who was brought in by her family for unsteady gait, fatigue, and withdrawn behavior. I finally noticed difficult to it fine motor skills throughout that night she was having difficulty expressing herself. she was at a restaurant family I will continue to point to the menu. She became more disoriented and less responsive prompting family to bring her to the emergency room - Acute respiratory failure on MV > 96 hours Continue mechanical ventilator, plan for transfer to LTAC for slow weaning, Status post trach and PEG 02/21 Bleeding from tracheostomy Oozing vessel was ligated on 02/24, discussed with general surgeon severe Sepsis Strep pneumoniae bacteremia Right neck cellulitis vs neck LAD PNA meningitis TERRENCE neg for vegatations * Has completed antibiotics. 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 fib. Will need anticoagulation when bleeding risk is re duced -Atrial fibrillation with RVR Management per Cardiology History of lupus? families is unclear on this medical history, but know that she has some form of autoimmune disease Compliments are reduced, CHESTER is positive, anti ds dna pending, highly suspect lupus cont steroids Acute metabolic encephalopathy Likely due to sepsis, eeg neg for seizure, neuro input appreciated Acute respiratory failure on MV > 96 hours cont vent per pulmonology Type 2 MA - cardiology input appreciated, rx the underlying cause Thrombocytopenia likely due to sepsis or autoimmune phenomenon, hematology input appreciated, hiv-negative, fibrinogen level is not low, PT PTT is normal. Status post platelet transfusion, improved Macrocytic anemia Hematology input appreciated, folic acid was low, repleted Hypothyroidism TSH elevated, synthroid dose increased -repeat TFTs in 4-6 wks Hypokalemia, was supplemented Prognosis is guarded The high probability of a clinically significant, sudden or life threatening deterioration of the [CV, Neurology, renal] system(s) required my full and direct attention, intervention and personal management. The aggregate critical care time was [45] minutes. This time is in addition to time spent performing reported procedures but includes the following: [x] Data Review and interpretation [x] Patient assessment and monitoring of vital signs [x] Documentation [x] Medication orders and management History Interval history: no fever, no vomiting, no agitation -no seizures or vomiting Hospitalist Physical - Physical exam Narrative exam: General.: no distress, nontoxic HEENT: Moist mucous membranes, extraocular muscles intact, no lymphadenopathy Neck: supple, trache noted Cardiac: S1-S2 heard Lungs: clear to auscultation bilaterally Abdomen: soft , nontender, nondistended, bowel sounds positive, PEG in place Extremities: no edema clubbing or cyanosis Skin: no rash or lesions Neurologic: left hemiparesis, opens eyes, obeys commands Psych: calm, and cooperative - Constitutional Vitals: Temp Pulse Resp BP Pulse Ox 98.8 F 62 15 132/73 98 02/26/19 04:00 02/26/19 08:19 02/26/19 08:19 02/26/19 08:19 02/26/19 08:19 General appearance: Present: mild distress, well-nourished, other (Intubated) Results - Labs CBC & Chem 7: 02/24/19 10:52 02/24/19 10:52 Labs: Laboratory Last Values WBC 7.8 K/mm3 (4.5-11.0) 02/24/19 10:52 RBC 2.95 M/mm3 (3.65-5.03) L 02/24/19 10:52 Hgb 8.9 gm/dl (10.1-14.3) L 02/24/19 10:52 Hct 27.8 % (30.3-42.9) L 02/24/19 10:52 MCV 94 fl (79-97) 02/24/19 10:52 MCH 30 pg (28-32) 02/24/19 10:52 MCHC 32 % (30-34) 02/24/19 10:52 RDW 17.7 % (13.2-15.2) H 02/24/19 10:52 Plt Count 123 K/mm3 (140-440) L 02/24/19 10:52 Lymph % (Auto) [employer] 02/05/19 13:02 Powell % (Auto) [employer] 02/05/19 13:02 Eos % (Auto) [employer] 02/05/19 13:02 Baso % (Auto) [employer] 02/05/19 13:02 Lymph # [employer] 02/05/19 13:02 Powell # [employer] 02/05/19 13:02 Eos # [employer] 02/05/19 13:02 Baso # [employer] 02/05/19 13:02 Add Manual Diff Complete 02/22/19 04:13 Total Counted 100 02/22/19 04:13 Seg Neutrophils % [employer] 02/22/19 04:13 Seg Neuts % (Manual) 97.0 % (40.0-70.0) H 02/22/19 04:13 1.0 % 02/22/19 04:13 1.0 % (13.4-35.0) L 02/22/19 04:13 Reactive Lymphs % (Man) 0 % 02/22/19 04:13 0 % (0.0-7.3) 02/22/19 04:13 0 % (0.0-4.3) 02/22/19 04:13 0 % (0.0-1.8) 02/22/19 04:13 1.0 % 02/22/19 04:13 0 % 02/22/19 04:13 0 % 02/22/19 04:13 0 % 02/22/19 04:13 Nucleated RBC % Not Reportable 02/22/19 04:13 Seg Neutrophils # [employer] 02/05/19 13:02 Seg Neutrophils # Man 9.7 K/mm3 (1.8-7.7) H 02/22/19 04:13 Band Neutrophils # 0.1 K/mm3 02/22/19 04:13 0.1 K/mm3 (1.2-5.4) L 02/22/19 04:13 Abs React Lymphs (Man) 0.0 K/mm3 02/22/19 04:13 0.0 K/mm3 (0.0-0.8) 02/22/19 04:13 0.0 K/mm3 (0.0-0.4) 02/22/19 04:13 0.0 K/mm3 (0.0-0.1) 02/22/19 04:13 0.1 K/mm3 02/22/19 04:13 0.0 K/mm3 02/22/19 04:13 0.0 K/mm3 02/22/19 04:13 Blast Cells # 0.0 K/mm3 02/22/19 04:13 WBC Morphology Not Reportable 02/22/19 04:13 Hypersegmented Neuts Not Reportable 02/22/19 04:13 Hyposegmented Neuts Not Reportable 02/22/19 04:13 Hypogranular Neuts Not Reportable 02/22/19 04:13 Cancelled 02/01/19 07:16 Not Reportable 02/22/19 04:13 Not Reportable 02/22/19 04:13 Not Reportable 02/22/19 04:13 Not Reportable 02/22/19 04:13 Not Reportable 02/22/19 04:13 Not Reportable 02/22/19 04:13 Consistent w auto 02/22/19 04:13 Not Reportable 02/22/19 04:13 Plt Clumps, EDTA Not Reportable 02/22/19 04:13 Few 02/22/19 04:13 Not Reportable 02/22/19 04:13 Not Reportable 02/22/19 04:13 Plt Morphology Comment Not Reportable 02/22/19 04:13 RBC Morphology Not Reportable 02/22/19 04:13 Dimorphic RBCs Not Reportable 02/22/19 04:13 Not Reportable 02/22/19 04:13 Not Reportable 02/22/19 04:13 Not Reportable 02/22/19 04:13 Cancelled 02/01/19 07:16 Not Reportable 02/22/19 04:13 Not Reportable 02/22/19 04:13 Not Reportable 02/22/19 04:13 Not Reportable 02/22/19 04:13 Not Reportable 02/22/19 04:13 Not Reportable 02/22/19 04:13 Rare 02/22/19 04:13 Not Reportable 02/22/19 04:13 Not Reportable 02/22/19 04:13 Cancelled 02/01/19 07:16 Not Reportable 02/22/19 04:13 Not Reportable 02/22/19 04:13 Not Reportable 02/22/19 04:13 Not Reportable 02/22/19 04:13 Not Reportable 02/22/19 04:13 Not Reportable 02/22/19 04:13 Not Reportable 02/22/19 04:13 Acanthocytes (Spur) Not Reportable 02/22/19 04:13 Rouleaux Not Reportable 02/22/19 04:13 Not Reportable 02/22/19 04:13 1+ 02/22/19 04:13 Not Reportable 02/22/19 04:13 ESR 76 mm/Hr (0-20) 02/01/19 16:51 Not Reportable 02/22/19 04:13 Hem Pathologist Commnt No 02/22/19 04:13 PT 13.7 Sec. (12.2-14.9) 02/24/19 10:52 INR 1.08 (0.87-1.13) 02/24/19 10:52 APTT 33.1 Sec. (24.2-36.6) 02/06/19 07:35 20.0 Sec. (15.1-19.6) H 02/01/19 07:16 479 mg/dl (211-480) 02/03/19 14:42 POC ABG pH 7.416 (7.35-7.45) 02/25/19 05:12 ABG pH 7.440 pH Units (7.350-7.450) 02/11/19 04:10 POC ABG pCO2 35.1 (35-45) 02/25/19 05:12 ABG pCO2 37.4 mm Hg 02/11/19 04:10 POC ABG pO2 130 (80-105) H 02/25/19 05:12 ABG pO2 69.4 mm Hg (80.0-90.0) L 02/11/19 04:10 POC ABG HCO3 22.5 (22-26 mml/L) 02/25/19 05:12 ABG HCO3 24.8 mmol/L (20.0-26.0) 02/11/19 04:10 POC ABG Total CO2 24 (23-27mmol/L) 02/25/19 05:12 POC ABG O2 Sat 99 02/25/19 05:12 ABG O2 Saturation 94.2 % (95.0-99.0) L 02/11/19 04:10 ABG O2 Content 14.3 (0.0-44) 02/11/19 04:10 POC ABG Base Excess -2 ((-2) - (+3)mmol/L) 02/25/19 05:12 ABG Base Excess 0.8 mmol/L (-2.0-3.0) 02/11/19 04:10 ABG Hemoglobin 11.0 gm/dl (12.0-16.0) L 02/11/19 04:10 ABG Carboxyhemoglobin 1.5 % (0.0-5.0) 02/11/19 04:10 ABG Methemoglobin 0.7 % (0.0-1.5) 02/11/19 04:10 92.1 % (95.0-99.0) L 02/11/19 04:10 30 % 02/25/19 05:12 Sodium 149 mmol/L (137-145) H 02/24/19 10:52 Potassium 4.3 mmol/L (3.6-5.0) 02/24/19 10:52 Chloride 114.7 mmol/L (98-107) H 02/24/19 10:52 Carbon Dioxide 25 mmol/L (22-30) 02/24/19 10:52 14 mmol/L 02/24/19 10:52 BUN 80 mg/dL (7-17) H 02/24/19 10:52 0.9 mg/dL (0.7-1.2) 02/24/19 10:52 Estimated GFR > 60 ml/min 02/24/19 10:52 89 % 02/24/19 10:52 Glucose 109 mg/dL (65-100) H 02/24/19 10:52 POC Glucose 110 (70-105) H 02/26/19 05:55 Lactic Acid 1.40 mmol/L (0.7-2.0) 02/01/19 20:57 Calcium 8.1 mg/dL (8.4-10.2) L 02/24/19 10:52 Phosphorus 3.20 mg/dL (2.5-4.5) 02/20/19 07:05 Magnesium 1.70 mg/dL (1.7-2.3) 02/20/19 07:05 Iron 11 ug/dL (37-170) L 02/03/19 14:42 TIBC 88 mcg/dL (250-450) L 02/03/19 14:42 332.9 ng/mL (13.0-400.0) 02/03/19 14:42 0.30 mg/dL (0.1-1.2) 02/21/19 07:10 0.7 mg/dL (0-0.2) H 02/01/19 07:29 0.5 mg/dL 02/01/19 07:29 AST 56 units/L (5-40) H 02/21/19 07:10 ALT 29 units/L (7-56) 02/21/19 07:10 150 units/L (35-129) H 02/21/19 07:10 0.181 ng/mL (0.00-0.029) H* 02/01/19 07:16 32.30 mg/dL (0.00-1.30) H 02/01/19 17:04 5.7 g/dL (6.3-8.2) L 02/21/19 07:10 1.9 g/dL (3.9-5) L 02/21/19 07:10 0.5 % 02/21/19 07:10 Triglycerides 95 mg/dL (2-149) 02/01/19 07:16 Cholesterol 75 mg/dL (50-199) 02/01/19 07:16 34 mg/dL (50-130) L 02/01/19 07:16 20 mg/dL (40-59) L 02/01/19 07:16 3.75 % 02/01/19 07:16 Vitamin B12 1468 pg/mL (211-911) H 02/03/19 14:42 5.18 ng/mL (7.3-26.0) L 02/03/19 14:42 TSH 8.470 mlU/mL (0.270-4.200) H 02/01/19 07:43 Free T4 1.08 ng/dL (0.76-1.46) 02/01/19 07:43 Sara (Yellow) 02/01/19 09:45 Cloudy (Clear) 02/01/19 09:45 5.0 (5.0-7.0) 02/01/19 09:45 Ur Specific Witter 1.019 (1.003-1.030) 02/01/19 09:45 >500 mg/dL (Negative) 02/01/19 09:45 Neg mg/dL (Negative) 02/01/19 09:45 Neg mg/dL (Negative) 02/01/19 09:45 Mod (Negative) 02/01/19 09:45 Neg (Negative) 02/01/19 09:45 Neg (Negative) 02/01/19 09:45 < 2.0 mg/dL (<2.0) 02/01/19 09:45 Ur Leukocyte Esterase Neg (Negative) 02/01/19 09:45 10.0 /HPF (0.0-6.0) H 02/09/19 13:35 10.0 /HPF (0.0-6.0) 02/09/19 13:35 U Epithel Cells (Auto) 3.0 /HPF (0-13.0) 02/09/19 13:35 Amorphous Crystals 1+ 02/01/19 09:45 Few /HPF 02/09/19 13:35 92.9 mg/dL (0.1-20.0) H 02/09/19 18:54 Protein/Creatinin Ratio 1.25 02/09/19 18:54 116 mg/dL (5-11.8) H 02/09/19 18:54 Turbid 02/05/19 14:10 Colorless 02/05/19 14:10 1250 /mm3 (1-10) 02/05/19 14:10 30 /mm3 (0-0) 02/05/19 14:10 CSF Seg Neutrophils 30.0 % (0-6) 02/05/19 14:10 40.0 % (40-80) 02/05/19 14:10 CSF Reactive Lymphs 0 % 02/05/19 14:10 30.0 % (15-45) 02/05/19 14:10 0 % 02/05/19 14:10 0 % 02/05/19 14:10 C 02/05/19 14:10 38 mg/dL 02/05/19 14:10 140 mg/dL 02/05/19 14:10 Random Vancomycin 9.8 ug/mL (0-40.0) 02/03/19 03:30 CHESTER Screen Positive (Negative) H 02/01/19 17:04 CHESTER Titer 1:320 (Negative) H 02/01/19 17:04 CHESTER Pattern Speckled 02/01/19 17:04 Proteinase 3 (PR3) Ab <1.0 AI (<1.0) 02/01/19 19:28 Myeloperoxidase Ab <1.0 AI (<1.0) 02/01/19 19:28 Double Strand DNA Ab 1 IU/mL (<=4) 02/11/19 04:54 36 mg/dL (83-193) L 02/01/19 16:51 12 mg/dL (15-57) L 02/01/19 16:51 RPR Nonreactive (Nonreactive) 02/02/19 15:45 Hepatitis A IgM Ab Non-reactive (NonReactive) 02/02/19 19:29 Hep Bs Antigen Non-reactive (Negative) 02/02/19 19:29 Hep B Core IgM Ab Non-reactive (NonReactive) 02/02/19 19:29 Non-reactive (NonReactive) 02/02/19 19:29 HIV 1&2 Antibody Rapid Non react (Non React) 02/02/19 15:46 Non react (Non React) 02/02/19 15:46 Flexitest 1 02/02/19 13:02 Blood Type B POSITIVE 02/24/19 10:52 Antibody Screen Negative 02/24/19 10:52 Active Medications - Current Medications Current Medications: Generic Name Dose Route Start Last Admin Trade Name Freq PRN Reason Stop Dose Admin Acetaminophen 650 mg 02/01/19 10:47 02/22/19 21:02 Tylenol PO 650 mg Q4H PRN Administration Pain MILD(1-3)/Fever >100.5/VALENZUELA Albuterol 2.5 mg 02/01/19 10:47 Proventil IH Q4HRT PRN Shortness Of Breath Albuterol/Ipratropium 1 ampul 02/01/19 12:00 02/26/19 07:31 Duoneb *Not For Prn Use* IH 1 ampul Q6HRT AMOL Administration Lipase/Protease/Amylase 1 each 02/22/19 08:27 Pancreemeka Hammond 10,500 Unit FEEDTUBE PRN PRN For Clogged Feeding Tube Diltiazem HCl 60 mg 02/13/19 12:00 02/26/19 06:00 Cardizem PO 60 mg Q6H AMOL Administration Fentanyl 50 mcg 02/19/19 16:20 Sublimaze IV ONCE PRN Pain , Severe (7-10) Folic Acid 1 mg 02/06/19 10:00 02/26/19 09:44 Folvite PO 1 mg QDAY AMOL Administration Haloperidol Lactate 5 mg 02/25/19 13:00 02/26/19 04:38 Haldol IV 5 mg Q8H AMOL Administration Hydralazine HCl 10 mg 02/13/19 22:15 02/26/19 00:41 Apresoline IV 10 mg Q6H PRN Administration Hypertension Hydrophilic Ointment 1 applic 02/01/19 11:09 02/19/19 21:54 Vaseline Lip Therapy TP 1 applic Q2HR PRN Administration Dry Lips Insulin Glargine 15 units 02/22/19 22:00 02/25/19 21:48 Lantus SUB-Q 15 units QHS AMOL Administration Insulin Human Regular 0 units 02/10/19 19:00 02/26/19 06:00 Humulin R SUB-Q Not Given Q6HR [facility] Protocol Lansoprazole 30 mg 02/23/19 10:00 02/26/19 09:44 Prevacid Solutab FEEDTUBE 30 mg BID AMOL Administration Levothyroxine Sodium 125 mcg 02/07/19 10:00 02/26/19 09:43 Synthroid PO 125 mcg QAM AMOL Administration Lorazepam 1 mg 02/25/19 12:19 02/26/19 00:41 Ativan IV 1 mg Q6H PRN Administration Agitation Multi-Ingred Cream/Lotion/Oil/Oint 1 applic 02/01/19 11:09 02/08/19 21:18 Artificial Tears Ophth Oint OU 1 applic Q4HR PRN Administration Dry Eye(s) Multivitamins 5 ml 02/06/19 10:00 02/26/19 09:44 Centrum Liq PO 5 ml QDAY AMOL Administration Ondansetron HCl 4 mg 02/01/19 10:47 Zofran IV Q8H PRN Nausea And Vomiting Prednisone 20 mg 02/23/19 10:00 02/26/19 09:43 Deltasone PO 20 mg QDAY AMOL Administration Simple Syrup 15 ml 02/22/19 08:27 Simple Syrup FEEDTUBE PRN PRN Hypoglycemia Simple Syrup 30 ml 02/22/19 08:27 Simple Syrup FEEDTUBE PRN PRN Hypoglycemia Sodium Bicarbonate 325 mg 02/22/19 08:27 Sodium Bicarbonate FEEDTUBE PRN PRN For Clogged Feeding Tube Sodium Chloride 10 ml 02/01/19 22:00 02/26/19 09:44 Sodium Chloride Flush Syringe 10 Ml IV 10 ml BID AMOL Administration Sodium Chloride 10 ml 02/01/19 10:47 Sodium Chloride Flush Syringe 10 Ml IV PRN PRN LINE FLUSH Nutrition/Malnutrition Assess - Dietary Evaluation Nutrition/Malnutrition Findings: Nutrition Notes Start: 02/02/19 15:11 Freq: Status: Active Protocol: Document 02/22/19 08:21 LM (Rec: 02/22/19 08:27 LM [email or web address]) Nutrition Notes Initial or Follow up Reassessment Current Diagnosis Acute Kidney Injury, Respiratory Failure Other Pertinent Diagnosis Hypothyroidism, Septic shock, Acute encephalopathy, UTI Current Diet Nepro at 40 ml/hr Labs/Tests BUN 83 BG 157 Pertinent Medications Reviewed Height 5 ft 5 in Weight 95 kg [place] Body Weight (kg) 56.81 BMI 34.8 Subjective/Other Information Nepro running at 40 ml/hr at time of visit. Pt tolerating TF. s/p trach and PEG. Percent of energy/protein needs met: 92%/68% Burn Absent Trauma Absent #1 Nutrition Diagnosis Inadequate oral intake Diagnosis Progress(for reassessment Continues documentation) Is patient on ventilator? Yes Is Patient Ambulatory and/or Out of Bed No REE-([facility]. Jeor-confined to bed) [phone] Calculation Used for Recommendations [facility] Additional Notes Protein Needs: 114g (2g/kg IBW ) Fluid Needs: 1 ml/kcal Nutrition Intervention Change Diet Order: Continue TF Nutrition Support: Nepro at 40ml/hr Flush with 170ml q4h Kcal 1,728 Protein (gm) 78 Fluid (mL) 697 Goal #1 Meet at least 75% of energy and portein needs Anticipated Discharge Needs: TF Follow-Up By: 02/26/19 Additional Comments F/U for TF tolerance
--- NOTE | 2019-02-26 11:41 | Progress Note ---
Assessment and Plan 53 y/o female with strep pneumonae bacteremia, meningitis and now stroke with acute respiratory failure and continued azotemia. 1. Neuro/Rheum: Continue Prednisone 20 daily. 2. MSK: Continue PT as patient's mental status has improved and she is very weak. 3. Renal: stable, nephrology has signed off. 4. CV-Follow up cards recs if any new ones. 5. GI-patient with severe gastritis seen on Peg placement. Stopped H2 geraldine and placed on BID PPI 6. Overall prognosis remains guarded, however good that patient is awake. 7. Stable for transfer when bed available. 8. Added PRN ativan and scheduled haldol so that patient would not move neck so much putting tension on her sutures at her trach site. Will change haldol to PRN as well. Total critical care time 31 minutes Subjective Date of service: 02/26/19 Principal diagnosis: low plt - h/o anemia - CVA Interval history: No acute events. Objective Vital Signs - 12hr 02/26/19 02/26/19 02/26/19 00:00 00:31 00:41 Temperature 98.9 F Pulse Rate 76 90 68 Pulse Rate [ Anterior Bilateral Throughout] Pulse Rate [ 61 From Monitor] Respiratory 15 16 Rate Respiratory Rate [Anterior Bilateral Throughout] Blood Pressure 170/89 170/89 170/89 O2 Sat by Pulse 96 93 Oximetry O2 Sat by Pulse Oximetry [ Assessment] 02/26/19 02/26/19 02/26/19 00:49 00:51 01:00 Temperature Pulse Rate 64 62 73 Pulse Rate [ Anterior Bilateral Throughout] Pulse Rate [ From Monitor] Respiratory 14 Rate Respiratory Rate [Anterior Bilateral Throughout] Blood Pressure 170/89 170/89 146/74 O2 Sat by Pulse 100 97 Oximetry O2 Sat by Pulse Oximetry [ Assessment] 02/26/19 02/26/19 02/26/19 01:31 02:00 02:31 Temperature Pulse Rate 81 89 84 Pulse Rate [ Anterior Bilateral Throughout] Pulse Rate [ From Monitor] Respiratory 16 13 16 Rate Respiratory Rate [Anterior Bilateral Throughout] Blood Pressure 170/89 135/81 135/81 O2 Sat by Pulse 100 100 100 Oximetry O2 Sat by Pulse Oximetry [ Assessment] 02/26/19 02/26/19 02/26/19 03:00 03:27 03:31 Temperature Pulse Rate 76 72 68 Pulse Rate [ Anterior Bilateral Throughout] Pulse Rate [ From Monitor] Respiratory 15 15 Rate Respiratory Rate [Anterior Bilateral Throughout] Blood Pressure 140/80 140/80 140/80 O2 Sat by Pulse 100 100 100 Oximetry O2 Sat by Pulse Oximetry [ Assessment] 02/26/19 02/26/19 02/26/19 03:35 04:00 04:31 Temperature 98.8 F Pulse Rate 59 L 60 Pulse Rate [ 63 Anterior Bilateral Throughout] Pulse Rate [ 58 L From Monitor] Respiratory 12 12 Rate Respiratory 12 Rate [Anterior Bilateral Throughout] Blood Pressure 137/76 137/76 O2 Sat by Pulse 100 100 Oximetry O2 Sat by Pulse Oximetry [ Assessment] 02/26/19 02/26/19 02/26/19 05:00 05:31 06:00 Temperature Pulse Rate 65 68 70 Pulse Rate [ Anterior Bilateral Throughout] Pulse Rate [ From Monitor] Respiratory 12 14 14 Rate Respiratory Rate [Anterior Bilateral Throughout] Blood Pressure 127/69 127/69 138/72 O2 Sat by Pulse 99 98 99 Oximetry O2 Sat by Pulse Oximetry [ Assessment] 02/26/19 02/26/19 02/26/19 06:31 07:00 07:19 Temperature Pulse Rate 66 66 66 Pulse Rate [ Anterior Bilateral Throughout] Pulse Rate [ From Monitor] Respiratory 14 15 Rate Respiratory Rate [Anterior Bilateral Throughout] Blood Pressure 127/69 118/59 118/59 O2 Sat by Pulse 99 98 98 Oximetry O2 Sat by Pulse Oximetry [ Assessment] 02/26/19 02/26/19 02/26/19 07:24 07:27 07:31 Temperature Pulse Rate 59 L Pulse Rate [ 58 L Anterior Bilateral Throughout] Pulse Rate [ From Monitor] Respiratory 12 Rate Respiratory 13 Rate [Anterior Bilateral Throughout] Blood Pressure 118/59 O2 Sat by Pulse 100 Oximetry O2 Sat by Pulse 97 Oximetry [ Assessment] 02/26/19 02/26/19 02/26/19 08:00 08:19 08:31 Temperature Pulse Rate 61 62 64 Pulse Rate [ Anterior Bilateral Throughout] Pulse Rate [ From Monitor] Respiratory 16 15 14 Rate Respiratory Rate [Anterior Bilateral Throughout] Blood Pressure 132/73 132/73 132/73 O2 Sat by Pulse 100 98 99 Oximetry O2 Sat by Pulse Oximetry [ Assessment] 02/26/19 02/26/19 02/26/19 09:00 09:31 10:00 Temperature Pulse Rate 65 62 72 Pulse Rate [ Anterior Bilateral Throughout] Pulse Rate [ From Monitor] Respiratory 15 13 19 Rate Respiratory Rate [Anterior Bilateral Throughout] Blood Pressure 135/70 135/70 135/74 O2 Sat by Pulse 98 99 99 Oximetry O2 Sat by Pulse Oximetry [ Assessment] 02/26/19 02/26/19 10:31 11:00 Temperature Pulse Rate 70 64 Pulse Rate [ Anterior Bilateral Throughout] Pulse Rate [ From Monitor] Respiratory 17 17 Rate Respiratory Rate [Anterior Bilateral Throughout] Blood Pressure 135/70 130/70 O2 Sat by Pulse 99 99 Oximetry O2 Sat by Pulse Oximetry [ Assessment] Constitutional: no acute distress, alert Eyes: non-icteric ENT: oropharynx moist Neck: supple, other (Proximal XLT size [address]) Effort: normal Ascultation: Bilateral: other (coarse BS bilaterally) Cardiovascular: regular rate and rhythm (no mrg) Gastrointestinal: normoactive bowel sounds, soft, non-tender, non-distended Integumentary: normal Extremities: no cyanosis, no edema, pink and warm Neurologic: other (L sided hemiparesis) Psychiatric: mood appropriate, affect normal CBC and BMP: 02/24/19 10:52 02/24/19 10:52 ABG, PT/INR, D-dimer: ABG POC ABG pH 7.416 (7.35-7.45) 02/25/19 05:12 ABG pH 7.440 pH Units (7.350-7.450) 02/11/19 04:10 POC ABG pCO2 35.1 (35-45) 02/25/19 05:12 ABG pCO2 37.4 mm Hg 02/11/19 04:10 POC ABG pO2 130 (80-105) H 02/25/19 05:12 ABG pO2 69.4 mm Hg (80.0-90.0) L 02/11/19 04:10 POC ABG HCO3 22.5 (22-26 mml/L) 02/25/19 05:12 POC ABG Total CO2 24 (23-27mmol/L) 02/25/19 05:12 POC ABG O2 Sat 99 02/25/19 05:12 ABG O2 Saturation 94.2 % (95.0-99.0) L 02/11/19 04:10 PT/INR, D-dimer PT 13.7 Sec. (12.2-14.9) 02/24/19 10:52 INR 1.08 (0.87-1.13) 02/24/19 10:52 Abnormal lab findings: Abnormal Labs 02/01/19 02/01/19 02/01/19 07:16 07:16 07:16 WBC 17.7 H RBC Hgb Hct RDW 16.9 H Plt Count 62 L Seg Neuts % (Manual) 95.0 H Lymphocytes % (Manual) 0 L Seg Neutrophils # Man 16.8 H Lymphocytes # (Manual) 0.0 L PT 15.0 H INR 1.21 H APTT Thrombin Time 20.0 H POC ABG pH ABG pH POC ABG pCO2 POC ABG pO2 ABG pO2 ABG HCO3 ABG O2 Saturation ABG Base Excess ABG Hemoglobin Oxyhemoglobin Sodium 135 L Potassium Chloride 97.7 L Carbon Dioxide 19 L BUN 51 H Creatinine 4.5 H Glucose 112 H POC Glucose Lactic Acid Calcium Magnesium Iron TIBC Direct Bilirubin AST Alkaline Phosphatase Troponin T 0.181 H* C-Reactive Protein Total Protein Albumin LDL Cholesterol Direct 34 L HDL Cholesterol 20 L Vitamin B12 Folate TSH Urine WBC (Auto) Urine Creatinine Urine Total Protein CHE[place] Screen CHESTER Titer Complement C3 Complement C4 02/01/19 02/01/19 02/01/19 07:29 07:29 07:43 WBC RBC Hgb Hct RDW Plt Count Seg Neuts % (Manual) Lymphocytes % (Manual) Seg Neutrophils # Man Lymphocytes # (Manual) PT INR APTT Thrombin Time POC ABG pH ABG pH POC ABG pCO2 POC ABG pO2 ABG pO2 ABG HCO3 ABG O2 Saturation ABG Base Excess ABG Hemoglobin Oxyhemoglobin Sodium Potassium Chloride Carbon Dioxide BUN Creatinine Glucose POC Glucose Lactic Acid 4.80 H* Calcium Magnesium Iron TIBC Direct Bilirubin 0.7 H AST 42 H Alkaline Phosphatase Troponin T C-Reactive Protein Total Protein 8.9 H Albumin 2.3 L LDL Cholesterol Direct HDL Cholesterol Vitamin B12 Folate TSH 8.470 H Urine WBC (Auto) Urine Creatinine Urine Total Protein [place] Screen [place] Titer Complement C3 Complement C4 02/01/19 02/01/19 02/01/19 09:45 11:32 13:50 WBC RBC Hgb Hct RDW Plt Count Seg Neuts % (Manual) Lymphocytes % (Manual) Seg Neutrophils # Man Lymphocytes # (Manual) PT INR APTT Thrombin Time POC ABG pH 7.289 L ABG pH POC ABG pCO2 POC ABG pO2 355 H ABG pO2 ABG HCO3 ABG O2 Saturation ABG Base Excess ABG Hemoglobin Oxyhemoglobin Sodium Potassium Chloride Carbon Dioxide BUN Creatinine Glucose POC Glucose Lactic Acid 4.10 H* Calcium Magnesium Iron TIBC Direct Bilirubin AST Alkaline Phosphatase Troponin T C-Reactive Protein Total Protein Albumin LDL Cholesterol Direct HDL Cholesterol Vitamin B12 Folate TSH Urine WBC (Auto) 16.0 H Urine Creatinine Urine Total Protein [place] Screen [place] Titer Complement C3 Complement C4 02/01/19 02/01/19 02/01/19 15:15 16:20 16:51 WBC RBC Hgb Hct RDW Plt Count Seg Neuts % (Manual) Lymphocytes % (Manual) Seg Neutrophils # Man Lymphocytes # (Manual) PT INR APTT Thrombin Time POC ABG pH ABG pH POC ABG pCO2 POC ABG pO2 ABG pO2 ABG HCO3 ABG O2 Saturation ABG Base Excess ABG Hemoglobin Oxyhemoglobin Sodium Potassium Chloride Carbon Dioxide BUN Creatinine Glucose POC Glucose 115 H Lactic Acid 4.50 H* Calcium Magnesium Iron TIBC Direct Bilirubin AST Alkaline Phosphatase Troponin T C-Reactive Protein Total Protein Albumin LDL Cholesterol Direct HDL Cholesterol Vitamin B12 Folate TSH Urine WBC (Auto) Urine Creatinine Urine Total Protein [place] Screen [place] Titer Complement C3 36 L Complement C4 02/01/19 02/01/19 02/01/19 16:51 17:03 17:04 WBC RBC Hgb Hct RDW Plt Count Seg Neuts % (Manual) Lymphocytes % (Manual) Seg Neutrophils # Man Lymphocytes # (Manual) PT INR APTT Thrombin Time POC ABG pH ABG pH POC ABG pCO2 POC ABG pO2 ABG pO2 ABG HCO3 ABG O2 Saturation ABG Base Excess ABG Hemoglobin Oxyhemoglobin Sodium Potassium Chloride Carbon Dioxide BUN Creatinine Glucose POC Glucose Lactic Acid 2.80 H* Calcium Magnesium Iron TIBC Direct Bilirubin AST Alkaline Phosphatase Troponin T C-Reactive Protein 32.30 H Total Protein Albumin LDL Cholesterol Direct HDL Cholesterol Vitamin B12 Folate TSH Urine WBC (Auto) Urine Creatinine Urine Total Protein [place] Screen [place] Titer Complement C3 Complement C4 12 L 02/01/19 02/01/19 02/02/19 17:04 19:28 05:16 WBC RBC Hgb Hct RDW Plt Count Seg Neuts % (Manual) Lymphocytes % (Manual) Seg Neutrophils # Man Lymphocytes # (Manual) PT INR APTT Thrombin Time POC ABG pH ABG pH POC ABG pCO2 POC ABG pO2 148 H ABG pO2 ABG HCO3 ABG O2 Saturation ABG Base Excess ABG Hemoglobin Oxyhemoglobin Sodium Potassium Chloride 107.1 H Carbon Dioxide 18 L BUN 52 H Creatinine 3.1 H Glucose 120 H POC Glucose Lactic Acid Calcium 7.4 L Magnesium Iron TIBC Direct Bilirubin AST Alkaline Phosphatase Troponin T C-Reactive Protein Total Protein Albumin LDL Cholesterol Direct HDL Cholesterol Vitamin B12 Folate TSH Urine WBC (Auto) Urine Creatinine Urine Total Protein [place] Screen Positive H CHE[place] Titer 1:320 H Complement C3 Complement C4 02/02/19 02/02/19 02/03/19 05:53 05:53 03:30 WBC 14.3 H RBC 5.16 H Hgb 14.9 H Hct 46.2 H D RDW 16.9 H 17.0 H Plt Count 43 L 18 L* Seg Neuts % (Manual) 93.0 H Lymphocytes % (Manual) 2.0 L Seg Neutrophils # Man 13.3 H Lymphocytes # (Manual) 0.3 L PT INR APTT Thrombin Time POC ABG pH ABG pH POC ABG pCO2 POC ABG pO2 ABG pO2 ABG HCO3 ABG O2 Saturation ABG Base Excess ABG Hemoglobin Oxyhemoglobin Sodium Potassium 5.1 H Chloride Carbon Dioxide 21 L BUN 57 H Creatinine 3.3 H Glucose 147 H POC Glucose Lactic Acid Calcium 7.5 L Magnesium Iron TIBC Direct Bilirubin AST 51 H Alkaline Phosphatase Troponin T C-Reactive Protein Total Protein Albumin 1.6 L LDL Cholesterol Direct HDL Cholesterol Vitamin B12 Folate TSH Urine WBC (Auto) Urine Creatinine Urine Total Protein [place] Screen [place] Titer Complement C3 Complement C4 02/03/19 02/03/19 02/03/19 03:30 05:55 14:42 WBC RBC Hgb Hct RDW Plt Count Seg Neuts % (Manual) Lymphocytes % (Manual) Seg Neutrophils # Man Lymphocytes # (Manual) PT INR APTT Thrombin Time POC ABG pH ABG pH POC ABG pCO2 POC ABG pO2 117 H ABG pO2 ABG HCO3 ABG O2 Saturation ABG Base Excess ABG Hemoglobin Oxyhemoglobin Sodium Potassium Chloride Carbon Dioxide BUN 65 H Creatinine 2.7 H Glucose 117 H POC Glucose Lactic Acid Calcium 7.2 L Magnesium Iron TIBC Direct Bilirubin AST Alkaline Phosphatase Troponin T C-Reactive Protein Total Protein Albumin LDL Cholesterol Direct HDL Cholesterol Vitamin B12 1468 H Folate TSH Urine WBC (Auto) Urine Creatinine Urine Total Protein [place] Screen [place] Titer Complement C3 Complement C4 02/03/19 02/03/19 02/03/19 14:42 14:42 14:42 WBC RBC 3.17 L Hgb 9.4 L D Hct 28.3 L D RDW 16.9 H Plt Count 18 L* Seg Neuts % (Manual) Lymphocytes % (Manual) Seg Neutrophils # Man Lymphocytes # (Manual) PT INR APTT Thrombin Time POC ABG pH ABG pH POC ABG pCO2 POC ABG pO2 ABG pO2 ABG HCO3 ABG O2 Saturation ABG Base Excess ABG Hemoglobin Oxyhemoglobin Sodium Potassium Chloride Carbon Dioxide BUN Creatinine Glucose POC Glucose Lactic Acid Calcium Magnesium Iron 11 L TIBC 88 L Direct Bilirubin AST Alkaline Phosphatase Troponin T C-Reactive Protein Total Protein Albumin LDL Cholesterol Direct HDL Cholesterol Vitamin B12 Folate 5.18 L TSH Urine WBC (Auto) Urine Creatinine Urine Total Protein [place] Screen [place] Titer Complement C3 Complement C4 02/03/19 02/03/19 02/04/19 14:42 14:42 03:35 WBC RBC 3.22 L Hgb 9.5 L Hct 28.5 L RDW 16.4 H Plt Count 18 L* Seg Neuts % (Manual) Lymphocytes % (Manual) Seg Neutrophils # Man Lymphocytes # (Manual) PT 15.8 H INR 1.29 H APTT 38.2 H Thrombin Time POC ABG pH ABG pH 7.470 H POC ABG pCO2 POC ABG pO2 ABG pO2 ABG HCO3 28.4 H ABG O2 Saturation ABG Base Excess 4.5 H ABG Hemoglobin 10.1 L Oxyhemoglobin 94.7 L Sodium Potassium Chloride Carbon Dioxide BUN Creatinine Glucose POC Glucose Lactic Acid Calcium Magnesium Iron TIBC Direct Bilirubin AST Alkaline Phosphatase Troponin T C-Reactive Protein Total Protein Albumin LDL Cholesterol Direct HDL Cholesterol Vitamin B12 Folate TSH Urine WBC (Auto) Urine Creatinine Urine Total Protein [place] Screen [place] Titer Complement C3 Complement C4 02/04/19 02/04/19 02/05/19 05:02 05:02 03:50 WBC RBC Hgb Hct RDW 16.5 H Plt Count 20 L Seg Neuts % (Manual) 94.0 H Lymphocytes % (Manual) 2.0 L Seg Neutrophils # Man 9.2 H Lymphocytes # (Manual) 0.2 L PT INR APTT Thrombin Time POC ABG pH ABG pH 7.485 H POC ABG pCO2 POC ABG pO2 ABG pO2 ABG HCO3 27.5 H ABG O2 Saturation ABG Base Excess 3.9 H ABG Hemoglobin 9.1 L Oxyhemoglobin 94.8 L Sodium Potassium Chloride Carbon Dioxide BUN 66 H Creatinine 1.7 H Glucose 127 H POC Glucose Lactic Acid Calcium 7.6 L Magnesium Iron TIBC Direct Bilirubin AST Alkaline Phosphatase Troponin T C-Reactive Protein Total Protein Albumin LDL Cholesterol Direct HDL Cholesterol Vitamin B12 Folate TSH Urine WBC (Auto) Urine Creatinine Urine Total Protein [place] Screen [place] Titer Complement C3 Complement C4 02/05/19 02/05/19 02/05/19 13:02 14:36 20:03 WBC 11.7 H RBC 3.48 L 3.24 L Hgb 10.0 L 9.4 L Hct 29.2 L RDW 16.3 H 16.3 H Plt Count 50 L D 71 L Seg Neuts % (Manual) 95.0 H 95.0 H Lymphocytes % (Manual) 0 L 2.0 L Seg Neutrophils # Man 11.1 H 10.2 H Lymphocytes # (Manual) 0.0 L 0.2 L PT INR APTT Thrombin Time POC ABG pH ABG pH POC ABG pCO2 POC ABG pO2 ABG pO2 ABG HCO3 ABG O2 Saturation ABG Base Excess ABG Hemoglobin Oxyhemoglobin Sodium Potassium Chloride Carbon Dioxide BUN 67 H Creatinine 1.5 H Glucose POC Glucose Lactic Acid Calcium 7.7 L Magnesium Iron TIBC Direct Bilirubin AST Alkaline Phosphatase Troponin T C-Reactive Protein Total Protein Albumin LDL Cholesterol Direct HDL Cholesterol Vitamin B12 Folate TSH Urine WBC (Auto) Urine Creatinine Urine Total Protein [place] Screen [place] Titer Complement C3 Complement C4 02/06/19 02/06/19 02/06/19 05:39 07:35 18:34 WBC RBC Hgb Hct RDW Plt Count Seg Neuts % (Manual) Lymphocytes % (Manual) Seg Neutrophils # Man Lymphocytes # (Manual) PT 16.3 H INR 1.35 H APTT Thrombin Time POC ABG pH ABG pH POC ABG pCO2 POC ABG pO2 ABG pO2 ABG HCO3 ABG O2 Saturation ABG Base Excess ABG Hemoglobin Oxyhemoglobin Sodium Potassium Chloride Carbon Dioxide BUN Creatinine Glucose POC Glucose 107 H 121 H Lactic Acid Calcium Magnesium Iron TIBC Direct Bilirubin AST Alkaline Phosphatase Troponin T C-Reactive Protein Total Protein Albumin LDL Cholesterol Direct HDL Cholesterol Vitamin B12 Folate TSH Urine WBC (Auto) Urine Creatinine Urine Total Protein [place] Screen [place] Titer Complement C3 Complement C4 02/06/19 02/07/19 02/07/19 Unknown 01:07 04:15 WBC RBC Hgb Hct RDW Plt Count Seg Neuts % (Manual) Lymphocytes % (Manual) Seg Neutrophils # Man Lymphocytes # (Manual) PT INR APTT Thrombin Time POC ABG pH ABG pH POC ABG pCO2 POC ABG pO2 ABG pO2 ABG HCO3 ABG O2 Saturation ABG Base Excess ABG Hemoglobin 5.0 L Oxyhemoglobin 94.9 L 94.8 L Sodium 146 H Potassium Chloride Carbon Dioxide BUN 85 H Creatinine 1.8 H Glucose 163 H POC Glucose Lactic Acid Calcium 8.3 L Magnesium Iron TIBC Direct Bilirubin AST Alkaline Phosphatase Troponin T C-Reactive Protein Total Protein Albumin LDL Cholesterol Direct HDL Cholesterol Vitamin B12 Folate TSH Urine WBC (Auto) Urine Creatinine Urine Total Protein [place] Screen [place] Titer Complement C3 Complement C4 02/07/19 02/07/19 02/08/19 08:22 10:58 04:40 WBC RBC Hgb Hct RDW 16.0 H Plt Count 84 L Seg Neuts % (Manual) 97.0 H Lymphocytes % (Manual) 0 L Seg Neutrophils # Man 9.5 H Lymphocytes # (Manual) 0.0 L PT INR APTT Thrombin Time POC ABG pH 7.477 H ABG pH 7.467 H POC ABG pCO2 34.8 L POC ABG pO2 118 H ABG pO2 ABG HCO3 ABG O2 Saturation ABG Base Excess ABG Hemoglobin 8.4 L Oxyhemoglobin Sodium Potassium Chloride Carbon Dioxide BUN Creatinine Glucose POC Glucose Lactic Acid Calcium Magnesium Iron TIBC Direct Bilirubin AST Alkaline Phosphatase Troponin T C-Reactive Protein Total Protein Albumin LDL Cholesterol Direct HDL Cholesterol Vitamin B12 Folate TSH Urine WBC (Auto) Urine Creatinine Urine Total Protein [place] Screen [place] Titer Complement C3 Complement C4 02/09/19 02/09/19 02/09/19 03:17 03:17 04:35 WBC 14.9 H RBC 3.32 L Hgb 9.6 L Hct RDW 15.9 H Plt Count 113 L Seg Neuts % (Manual) 96.0 H Lymphocytes % (Manual) 1.0 L Seg Neutrophils # Man 14.3 H Lymphocytes # (Manual) 0.1 L PT INR APTT Thrombin Time POC ABG pH ABG pH 7.478 H POC ABG pCO2 POC ABG pO2 ABG pO2 94.5 H ABG HCO3 ABG O2 Saturation ABG Base Excess ABG Hemoglobin 6.1 L Oxyhemoglobin Sodium 147 H Potassium Chloride 110.4 H Carbon Dioxide BUN 114 H Creatinine 2.2 H Glucose 270 H POC Glucose Lactic Acid Calcium 8.1 L Magnesium Iron TIBC Direct Bilirubin AST Alkaline Phosphatase Troponin T C-Reactive Protein Total Protein Albumin 1.6 L LDL Cholesterol Direct HDL Cholesterol Vitamin B12 Folate TSH Urine WBC (Auto) Urine Creatinine Urine Total Protein [place] Screen [place] Titer Complement C3 Complement C4 02/09/19 02/09/19 02/10/19 13:35 18:54 05:13 WBC RBC Hgb Hct RDW Plt Count Seg Neuts % (Manual) Lymphocytes % (Manual) Seg Neutrophils # Man Lymphocytes # (Manual) PT INR APTT Thrombin Time POC ABG pH ABG pH 7.478 H POC ABG pCO2 POC ABG pO2 ABG pO2 ABG HCO3 ABG O2 Saturation ABG Base Excess ABG Hemoglobin 8.1 L Oxyhemoglobin 94.9 L Sodium Potassium Chloride Carbon Dioxide BUN Creatinine Glucose POC Glucose Lactic Acid Calcium Magnesium Iron TIBC Direct Bilirubin AST Alkaline Phosphatase Troponin T C-Reactive Protein Total Protein Albumin LDL Cholesterol Direct HDL Cholesterol Vitamin B12 Folate TSH Urine WBC (Auto) 10.0 H Urine Creatinine 92.9 H Urine Total Protein 116 H [place] Screen [place] Titer Complement C3 Complement C4 02/10/19 02/10/19 02/11/19 18:14 23:24 04:10 WBC RBC Hgb Hct RDW Plt Count Seg Neuts % (Manual) Lymphocytes % (Manual) Seg Neutrophils # Man Lymphocytes # (Manual) PT INR APTT Thrombin Time POC ABG pH ABG pH POC ABG pCO2 POC ABG pO2 ABG pO2 69.4 L ABG HCO3 ABG O2 Saturation 94.2 L ABG Base Excess ABG Hemoglobin 11.0 L Oxyhemoglobin 92.1 L Sodium Potassium Chloride Carbon Dioxide BUN Creatinine Glucose POC Glucose 453 H 403 H Lactic Acid Calcium Magnesium Iron TIBC Direct Bilirubin AST Alkaline Phosphatase Troponin T C-Reactive Protein Total Protein Albumin LDL Cholesterol Direct HDL Cholesterol Vitamin B12 Folate TSH Urine WBC (Auto) Urine Creatinine Urine Total Protein [place] Screen [place] Titer Complement C3 Complement C4 02/11/19 02/11/19 02/11/19 04:54 04:54 05:40 WBC 12.5 H RBC 3.18 L Hgb 9.4 L Hct 29.4 L RDW 16.6 H Plt Count Seg Neuts % (Manual) 94.0 H Lymphocytes % (Manual) 4.0 L Seg Neutrophils # Man 11.8 H Lymphocytes # (Manual) 0.5 L PT INR APTT Thrombin Time POC ABG pH ABG pH POC ABG pCO2 POC ABG pO2 ABG pO2 ABG HCO3 ABG O2 Saturation ABG Base Excess ABG Hemoglobin Oxyhemoglobin Sodium 151 H Potassium Chloride 112.6 H Carbon Dioxide BUN 127 H Creatinine 1.8 H Glucose 396 H POC Glucose 410 H Lactic Acid Calcium 8.3 L Magnesium Iron TIBC Direct Bilirubin AST Alkaline Phosphatase 132 H Troponin T C-Reactive Protein Total Protein Albumin 2.1 L LDL Cholesterol Direct HDL Cholesterol Vitamin B12 Folate TSH Urine WBC (Auto) Urine Creatinine Urine Total Protein [place] Screen [place] Titer Complement C3 Complement C4 02/11/19 02/11/19 02/11/19 11:30 17:58 23:18 WBC RBC Hgb Hct RDW Plt Count Seg Neuts % (Manual) Lymphocytes % (Manual) Seg Neutrophils # Man Lymphocytes # (Manual) PT INR APTT Thrombin Time POC ABG pH ABG pH POC ABG pCO2 POC ABG pO2 ABG pO2 ABG HCO3 ABG O2 Saturation ABG Base Excess ABG Hemoglobin Oxyhemoglobin Sodium Potassium Chloride Carbon Dioxide BUN Creatinine Glucose POC Glucose 361 H 414 H 392 H Lactic Acid Calcium Magnesium Iron TIBC Direct Bilirubin AST Alkaline Phosphatase Troponin T C-Reactive Protein Total Protein Albumin LDL Cholesterol Direct HDL Cholesterol Vitamin B12 Folate TSH Urine WBC (Auto) Urine Creatinine Urine Total Protein [place] Screen [place] Titer Complement C3 Complement C4 02/12/19 02/12/19 02/12/19 05:32 05:36 05:36 WBC 11.9 H RBC 3.40 L Hgb 9.9 L Hct RDW 16.4 H Plt Count Seg Neuts % (Manual) 97.0 H Lymphocytes % (Manual) 2.0 L Seg Neutrophils # Man 11.5 H Lymphocytes # (Manual) 0.2 L PT INR APTT Thrombin Time POC ABG pH ABG pH POC ABG pCO2 POC ABG pO2 ABG pO2 ABG HCO3 ABG O2 Saturation ABG Base Excess ABG Hemoglobin Oxyhemoglobin Sodium 146 H Potassium 3.5 L Chloride 110.2 H Carbon Dioxide BUN 118 H Creatinine 1.4 H Glucose 382 H POC Glucose 361 H Lactic Acid Calcium 8.3 L Magnesium Iron TIBC Direct Bilirubin AST Alkaline Phosphatase 137 H Troponin T C-Reactive Protein Total Protein Albumin 2.0 L LDL Cholesterol Direct HDL Cholesterol Vitamin B12 Folate TSH Urine WBC (Auto) Urine Creatinine Urine Total Protein [place] Screen [place] Titer Complement C3 Complement C4 02/12/19 02/12/19 02/12/19 11:51 17:18 21:46 WBC RBC Hgb Hct RDW Plt Count Seg Neuts % (Manual) Lymphocytes % (Manual) Seg Neutrophils # Man Lymphocytes # (Manual) PT INR APTT Thrombin Time POC ABG pH ABG pH POC ABG pCO2 POC ABG pO2 ABG pO2 ABG HCO3 ABG O2 Saturation ABG Base Excess ABG Hemoglobin Oxyhemoglobin Sodium Potassium Chloride Carbon Dioxide BUN Creatinine Glucose POC Glucose 357 H 280 H 222 H Lactic Acid Calcium Magnesium Iron TIBC Direct Bilirubin AST Alkaline Phosphatase Troponin T C-Reactive Protein Total Protein Albumin LDL Cholesterol Direct HDL Cholesterol Vitamin B12 Folate TSH Urine WBC (Auto) Urine Creatinine Urine Total Protein [place] Screen [place] Titer Complement C3 Complement C4 02/12/19 02/13/19 02/13/19 23:58 03:41 03:41 WBC 11.6 H RBC 3.53 L Hgb Hct RDW 15.8 H Plt Count 98 L Seg Neuts % (Manual) 97.0 H Lymphocytes % (Manual) 2.0 L Seg Neutrophils # Man 11.3 H Lymphocytes # (Manual) 0.2 L PT INR APTT Thrombin Time POC ABG pH ABG pH POC ABG pCO2 POC ABG pO2 ABG pO2 ABG HCO3 ABG O2 Saturation ABG Base Excess ABG Hemoglobin Oxyhemoglobin Sodium Potassium 3.4 L Chloride 109.7 H Carbon Dioxide BUN 108 H Creatinine Glucose 182 H POC Glucose 208 H Lactic Acid Calcium Magnesium Iron TIBC Direct Bilirubin AST 45 H Alkaline Phosphatase 150 H Troponin T C-Reactive Protein Total Protein Albumin 1.8 L LDL Cholesterol Direct HDL Cholesterol Vitamin B12 Folate TSH Urine WBC (Auto) Urine Creatinine Urine Total Protein [place] Screen [place] Titer Complement C3 Complement C4 02/13/19 02/13/19 02/13/19 05:40 11:31 18:01 WBC RBC Hgb Hct RDW Plt Count Seg Neuts % (Manual) Lymphocytes % (Manual) Seg Neutrophils # Man Lymphocytes # (Manual) PT INR APTT Thrombin Time POC ABG pH ABG pH POC ABG pCO2 POC ABG pO2 ABG pO2 ABG HCO3 ABG O2 Saturation ABG Base Excess ABG Hemoglobin Oxyhemoglobin Sodium Potassium Chloride Carbon Dioxide BUN Creatinine Glucose POC Glucose 179 H 193 H 151 H Lactic Acid Calcium Magnesium Iron TIBC Direct Bilirubin AST Alkaline Phosphatase Troponin T C-Reactive Protein Total Protein Albumin LDL Cholesterol Direct HDL Cholesterol Vitamin B12 Folate TSH Urine WBC (Auto) Urine Creatinine Urine Total Protein [place] Screen [place] Titer Complement C3 Complement C4 02/13/19 02/14/19 02/14/19 23:47 04:03 04:03 WBC RBC Hgb Hct RDW 16.0 H Plt Count Seg Neuts % (Manual) 94.0 H Lymphocytes % (Manual) 2.0 L Seg Neutrophils # Man 8.9 H Lymphocytes # (Manual) 0.2 L PT INR APTT Thrombin Time POC ABG pH ABG pH POC ABG pCO2 POC ABG pO2 ABG pO2 ABG HCO3 ABG O2 Saturation ABG Base Excess ABG Hemoglobin Oxyhemoglobin Sodium Potassium 3.4 L Chloride 108.7 H Carbon Dioxide 21 L BUN 96 H Creatinine Glucose 129 H POC Glucose 144 H Lactic Acid Calcium 8.2 L Magnesium Iron TIBC Direct Bilirubin AST 65 H Alkaline Phosphatase 164 H Troponin T C-Reactive Protein Total Protein Albumin 1.7 L LDL Cholesterol Direct HDL Cholesterol Vitamin B12 Folate TSH Urine WBC (Auto) Urine Creatinine Urine Total Protein [place] Screen [place] Titer Complement C3 Complement C4 02/14/19 02/14/19 02/14/19 04:03 05:10 11:51 WBC RBC Hgb Hct RDW Plt Count Seg Neuts % (Manual) Lymphocytes % (Manual) Seg Neutrophils # Man Lymphocytes # (Manual) PT INR APTT Thrombin Time POC ABG pH ABG pH POC ABG pCO2 POC ABG pO2 ABG pO2 ABG HCO3 ABG O2 Saturation ABG Base Excess ABG Hemoglobin Oxyhemoglobin Sodium Potassium Chloride Carbon Dioxide BUN Creatinine Glucose POC Glucose 145 H 192 H Lactic Acid Calcium Magnesium 1.60 L Iron TIBC Direct Bilirubin AST Alkaline Phosphatase Troponin T C-Reactive Protein Total Protein Albumin LDL Cholesterol Direct HDL Cholesterol Vitamin B12 Folate TSH Urine WBC (Auto) Urine Creatinine Urine Total Protein [place] Screen [place] Titer Complement C3 Complement C4 02/14/19 02/14/19 02/15/19 17:42 23:33 05:33 WBC RBC Hgb Hct RDW 15.9 H Plt Count Seg Neuts % (Manual) 95.0 H Lymphocytes % (Manual) 1.0 L Seg Neutrophils # Man 7.9 H Lymphocytes # (Manual) 0.1 L PT INR APTT Thrombin Time POC ABG pH ABG pH POC ABG pCO2 POC ABG pO2 ABG pO2 ABG HCO3 ABG O2 Saturation ABG Base Excess ABG Hemoglobin Oxyhemoglobin Sodium Potassium Chloride Carbon Dioxide BUN Creatinine Glucose POC Glucose 229 H 204 H Lactic Acid Calcium Magnesium Iron TIBC Direct Bilirubin AST Alkaline Phosphatase Troponin T C-Reactive Protein Total Protein Albumin LDL Cholesterol Direct HDL Cholesterol Vitamin B12 Folate TSH Urine WBC (Auto) Urine Creatinine Urine Total Protein [place] Screen [place] Titer Complement C3 Complement C4 02/15/19 02/15/19 02/15/19 05:33 05:41 12:30 WBC RBC Hgb Hct RDW Plt Count Seg Neuts % (Manual) Lymphocytes % (Manual) Seg Neutrophils # Man Lymphocytes # (Manual) PT INR APTT Thrombin Time POC ABG pH ABG pH POC ABG pCO2 POC ABG pO2 ABG pO2 ABG HCO3 ABG O2 Saturation ABG Base Excess ABG Hemoglobin Oxyhemoglobin Sodium Potassium Chloride 108.2 H Carbon Dioxide BUN 91 H Creatinine Glucose 197 H POC Glucose 209 H 168 H Lactic Acid Calcium 8.2 L Magnesium Iron TIBC Direct Bilirubin AST 61 H Alkaline Phosphatase 215 H Troponin T C-Reactive Protein Total Protein Albumin 1.9 L LDL Cholesterol Direct HDL Cholesterol Vitamin B12 Folate TSH Urine WBC (Auto) Urine Creatinine Urine Total Protein [place] Screen [place] Titer Complement C3 Complement C4 02/15/19 02/15/19 02/16/19 18:17 23:53 04:58 WBC RBC Hgb Hct RDW 15.7 H Plt Count Seg Neuts % (Manual) 93.0 H Lymphocytes % (Manual) 5.0 L Seg Neutrophils # Man Lymphocytes # (Manual) 0.4 L PT INR APTT Thrombin Time POC ABG pH ABG pH POC ABG pCO2 POC ABG pO2 ABG pO2 ABG HCO3 ABG O2 Saturation ABG Base Excess ABG Hemoglobin Oxyhemoglobin Sodium Potassium Chloride Carbon Dioxide BUN Creatinine Glucose POC Glucose 161 H 160 H Lactic Acid Calcium Magnesium Iron TIBC Direct Bilirubin AST Alkaline Phosphatase Troponin T C-Reactive Protein Total Protein Albumin LDL Cholesterol Direct HDL Cholesterol Vitamin B12 Folate TSH Urine WBC (Auto) Urine Creatinine Urine Total Protein [place] Screen [place] Titer Complement C3 Complement C4 02/16/19 02/16/19 02/16/19 04:58 12:27 17:08 WBC RBC Hgb Hct RDW Plt Count Seg Neuts % (Manual) Lymphocytes % (Manual) Seg Neutrophils # Man Lymphocytes # (Manual) PT INR APTT Thrombin Time POC ABG pH ABG pH POC ABG pCO2 POC ABG pO2 ABG pO2 ABG HCO3 ABG O2 Saturation ABG Base Excess ABG Hemoglobin Oxyhemoglobin Sodium Potassium Chloride 108.3 H Carbon Dioxide BUN 90 H Creatinine Glucose 126 H POC Glucose 125 H 180 H Lactic Acid Calcium 8.1 L Magnesium Iron TIBC Direct Bilirubin AST 52 H Alkaline Phosphatase 188 H Troponin T C-Reactive Protein Total Protein Albumin 2.0 L LDL Cholesterol Direct HDL Cholesterol Vitamin B12 Folate TSH Urine WBC (Auto) Urine Creatinine Urine Total Protein [place] Screen [place] Titer Complement C3 Complement C4 02/16/19 02/16/19 02/17/19 21:52 23:51 04:43 WBC RBC 3.48 L Hgb Hct RDW 15.8 H Plt Count Seg Neuts % (Manual) 87.0 H Lymphocytes % (Manual) 6.0 L Seg Neutrophils # Man Lymphocytes # (Manual) 0.5 L PT INR APTT Thrombin Time POC ABG pH ABG pH POC ABG pCO2 POC ABG pO2 ABG pO2 ABG HCO3 ABG O2 Saturation ABG Base Excess ABG Hemoglobin Oxyhemoglobin Sodium Potassium Chloride Carbon Dioxide BUN Creatinine Glucose POC Glucose 177 H 161 H Lactic Acid Calcium Magnesium Iron TIBC Direct Bilirubin AST Alkaline Phosphatase Troponin T C-Reactive Protein Total Protein Albumin LDL Cholesterol Direct HDL Cholesterol Vitamin B12 Folate TSH Urine WBC (Auto) Urine Creatinine Urine Total Protein [place] Screen [place] Titer Complement C3 Complement C4 02/17/19 02/17/19 02/17/19 04:43 05:05 18:16 WBC RBC Hgb Hct RDW Plt Count Seg Neuts % (Manual) Lymphocytes % (Manual) Seg Neutrophils # Man Lymphocytes # (Manual) PT INR APTT Thrombin Time POC ABG pH ABG pH POC ABG pCO2 POC ABG pO2 ABG pO2 ABG HCO3 ABG O2 Saturation ABG Base Excess ABG Hemoglobin Oxyhemoglobin Sodium Potassium Chloride 110.2 H Carbon Dioxide 21 L BUN 90 H Creatinine Glucose 164 H POC Glucose 166 H 123 H Lactic Acid Calcium 8.2 L Magnesium Iron TIBC Direct Bilirubin AST 59 H Alkaline Phosphatase 224 H Troponin T C-Reactive Protein Total Protein 6.2 L Albumin 1.9 L LDL Cholesterol Direct HDL Cholesterol Vitamin B12 Folate TSH Urine WBC (Auto) Urine Creatinine Urine Total Protein [place] Screen [place] Titer Complement C3 Complement C4 02/17/19 02/18/19 02/18/19 22:15 00:14 05:23 WBC RBC Hgb Hct RDW Plt Count Seg Neuts % (Manual) Lymphocytes % (Manual) Seg Neutrophils # Man Lymphocytes # (Manual) PT INR APTT Thrombin Time POC ABG pH ABG pH POC ABG pCO2 POC ABG pO2 ABG pO2 ABG HCO3 ABG O2 Saturation ABG Base Excess ABG Hemoglobin Oxyhemoglobin Sodium Potassium Chloride Carbon Dioxide BUN Creatinine Glucose POC Glucose 135 H 142 H 175 H Lactic Acid Calcium Magnesium Iron TIBC Direct Bilirubin AST Alkaline Phosphatase Troponin T C-Reactive Protein Total Protein Albumin LDL Cholesterol Direct HDL Cholesterol Vitamin B12 Folate TSH Urine WBC (Auto) Urine Creatinine Urine Total Protein [place] Screen [place] Titer Complement C3 Complement C4 02/18/19 02/18/19 02/18/19 11:20 17:14 22:03 WBC RBC Hgb Hct RDW Plt Count Seg Neuts % (Manual) Lymphocytes % (Manual) Seg Neutrophils # Man Lymphocytes # (Manual) PT INR APTT Thrombin Time POC ABG pH ABG pH POC ABG pCO2 POC ABG pO2 ABG pO2 ABG HCO3 ABG O2 Saturation ABG Base Excess ABG Hemoglobin Oxyhemoglobin Sodium Potassium Chloride Carbon Dioxide BUN Creatinine Glucose POC Glucose 139 H 139 H 150 H Lactic Acid Calcium Magnesium Iron TIBC Direct Bilirubin AST Alkaline Phosphatase Troponin T C-Reactive Protein Total Protein Albumin LDL Cholesterol Direct HDL Cholesterol Vitamin B12 Folate TSH Urine WBC (Auto) Urine Creatinine Urine Total Protein [place] Screen [place] Titer Complement C3 Complement C4 02/18/19 02/19/19 02/19/19 23:53 05:15 11:19 WBC RBC Hgb Hct RDW Plt Count Seg Neuts % (Manual) Lymphocytes % (Manual) Seg Neutrophils # Man Lymphocytes # (Manual) PT INR APTT Thrombin Time POC ABG pH ABG pH POC ABG pCO2 POC ABG pO2 ABG pO2 ABG HCO3 ABG O2 Saturation ABG Base Excess ABG Hemoglobin Oxyhemoglobin Sodium Potassium Chloride Carbon Dioxide BUN Creatinine Glucose POC Glucose 140 H 161 H 146 H Lactic Acid Calcium Magnesium Iron TIBC Direct Bilirubin AST Alkaline Phosphatase Troponin T C-Reactive Protein Total Protein Albumin LDL Cholesterol Direct HDL Cholesterol Vitamin B12 Folate TSH Urine WBC (Auto) Urine Creatinine Urine Total Protein [place] Screen [place] Titer Complement C3 Complement C4 02/19/19 02/20/19 02/20/19 17:34 01:11 05:40 WBC RBC Hgb Hct RDW Plt Count Seg Neuts % (Manual) Lymphocytes % (Manual) Seg Neutrophils # Man Lymphocytes # (Manual) PT INR APTT Thrombin Time POC ABG pH ABG pH POC ABG pCO2 POC ABG pO2 ABG pO2 ABG HCO3 ABG O2 Saturation ABG Base Excess ABG Hemoglobin Oxyhemoglobin Sodium Potassium Chloride Carbon Dioxide BUN Creatinine Glucose POC Glucose 133 H 137 H 150 H Lactic Acid Calcium Magnesium Iron TIBC Direct Bilirubin AST Alkaline Phosphatase Troponin T C-Reactive Protein Total Protein Albumin LDL Cholesterol Direct HDL Cholesterol Vitamin B12 Folate TSH Urine WBC (Auto) Urine Creatinine Urine Total Protein [place] Screen [place] Titer Complement C3 Complement C4 02/20/19 02/20/19 02/20/19 07:05 07:05 11:27 WBC RBC 3.34 L Hgb 10.0 L Hct RDW 16.4 H Plt Count Seg Neuts % (Manual) 87.0 H Lymphocytes % (Manual) 4.0 L Seg Neutrophils # Man Lymphocytes # (Manual) 0.3 L PT INR APTT Thrombin Time POC ABG pH ABG pH POC ABG pCO2 POC ABG pO2 ABG pO2 ABG HCO3 ABG O2 Saturation ABG Base Excess ABG Hemoglobin Oxyhemoglobin Sodium Potassium Chloride 112.1 H Carbon Dioxide BUN 84 H Creatinine Glucose 150 H POC Glucose 141 H Lactic Acid Calcium Magnesium Iron TIBC Direct Bilirubin AST Alkaline Phosphatase Troponin T C-Reactive Protein Total Protein Albumin LDL Cholesterol Direct HDL Cholesterol Vitamin B12 Folate TSH Urine WBC (Auto) Urine Creatinine Urine Total Protein [place] Screen [place] Titer Complement C3 Complement C4 02/20/19 02/20/19 02/20/19 18:19 21:57 23:02 WBC RBC Hgb Hct RDW Plt Count Seg Neuts % (Manual) Lymphocytes % (Manual) Seg Neutrophils # Man Lymphocytes # (Manual) PT INR APTT Thrombin Time POC ABG pH ABG pH POC ABG pCO2 POC ABG pO2 ABG pO2 ABG HCO3 ABG O2 Saturation ABG Base Excess ABG Hemoglobin Oxyhemoglobin Sodium Potassium Chloride Carbon Dioxide BUN Creatinine Glucose POC Glucose 170 H 150 H 137 H Lactic Acid Calcium Magnesium Iron TIBC Direct Bilirubin AST Alkaline Phosphatase Troponin T C-Reactive Protein Total Protein Albumin LDL Cholesterol Direct HDL Cholesterol Vitamin B12 Folate TSH Urine WBC (Auto) Urine Creatinine Urine Total Protein [place] Screen [place] Titer Complement C3 Complement C4 02/21/19 02/21/19 02/21/19 05:44 07:10 07:10 WBC RBC 3.19 L Hgb 9.4 L Hct 29.2 L RDW 16.2 H Plt Count Seg Neuts % (Manual) 91.0 H Lymphocytes % (Manual) 7.0 L Seg Neutrophils # Man Lymphocytes # (Manual) 0.5 L PT INR APTT Thrombin Time POC ABG pH ABG pH POC ABG pCO2 POC ABG pO2 ABG pO2 ABG HCO3 ABG O2 Saturation ABG Base Excess ABG Hemoglobin Oxyhemoglobin Sodium Potassium Chloride 112.4 H Carbon Dioxide 21 L BUN 86 H Creatinine Glucose 126 H POC Glucose 129 H Lactic Acid Calcium 8.1 L Magnesium Iron TIBC Direct Bilirubin AST 56 H Alkaline Phosphatase 150 H Troponin T C-Reactive Protein Total Protein 5.7 L Albumin 1.9 L LDL Cholesterol Direct HDL Cholesterol Vitamin B12 Folate TSH Urine WBC (Auto) Urine Creatinine Urine Total Protein [place] Screen [place] Titer Complement C3 Complement C4 02/21/19 02/21/19 02/22/19 11:28 16:50 00:54 WBC RBC Hgb Hct RDW Plt Count Seg Neuts % (Manual) Lymphocytes % (Manual) Seg Neutrophils # Man Lymphocytes # (Manual) PT INR APTT Thrombin Time POC ABG pH ABG pH POC ABG pCO2 POC ABG pO2 ABG pO2 ABG HCO3 ABG O2 Saturation ABG Base Excess ABG Hemoglobin Oxyhemoglobin Sodium Potassium Chloride Carbon Dioxide BUN Creatinine Glucose POC Glucose 114 H 111 H 51 L Lactic Acid Calcium Magnesium Iron TIBC Direct Bilirubin AST Alkaline Phosphatase Troponin T C-Reactive Protein Total Protein Albumin LDL Cholesterol Direct HDL Cholesterol Vitamin B12 Folate TSH Urine WBC (Auto) Urine Creatinine Urine Total Protein [place] Screen [place] Titer Complement C3 Complement C4 02/22/19 02/22/19 02/22/19 00:59 04:13 04:13 WBC RBC 3.35 L Hgb 9.9 L Hct RDW 16.8 H Plt Count Seg Neuts % (Manual) 97.0 H Lymphocytes % (Manual) 1.0 L Seg Neutrophils # Man 9.7 H Lymphocytes # (Manual) 0.1 L PT INR APTT Thrombin Time POC ABG pH ABG pH POC ABG pCO2 POC ABG pO2 ABG pO2 ABG HCO3 ABG O2 Saturation ABG Base Excess ABG Hemoglobin Oxyhemoglobin Sodium Potassium Chloride 110.8 H Carbon Dioxide BUN 83 H Creatinine Glucose 157 H POC Glucose 144 H Lactic Acid Calcium Magnesium Iron TIBC Direct Bilirubin AST Alkaline Phosphatase Troponin T C-Reactive Protein Total Protein Albumin LDL Cholesterol Direct HDL Cholesterol Vitamin B12 Folate TSH Urine WBC (Auto) Urine Creatinine Urine Total Protein [place] Screen [place] Titer Complement C3 Complement C4 02/22/19 02/22/19 02/22/19 05:01 11:49 17:33 WBC RBC Hgb Hct RDW Plt Count Seg Neuts % (Manual) Lymphocytes % (Manual) Seg Neutrophils # Man Lymphocytes # (Manual) PT INR APTT Thrombin Time POC ABG pH ABG pH POC ABG pCO2 POC ABG pO2 ABG pO2 ABG HCO3 ABG O2 Saturation ABG Base Excess ABG Hemoglobin Oxyhemoglobin Sodium Potassium Chloride Carbon Dioxide BUN Creatinine Glucose POC Glucose 135 H 148 H 123 H Lactic Acid Calcium Magnesium Iron TIBC Direct Bilirubin AST Alkaline Phosphatase Troponin T C-Reactive Protein Total Protein Albumin LDL Cholesterol Direct HDL Cholesterol Vitamin B12 Folate TSH Urine WBC (Auto) Urine Creatinine Urine Total Protein [place] Screen [place] Titer Complement C3 Complement C4 02/22/19 02/22/19 02/23/19 21:06 23:52 05:19 WBC RBC Hgb Hct RDW Plt Count Seg Neuts % (Manual) Lymphocytes % (Manual) Seg Neutrophils # Man Lymphocytes # (Manual) PT INR APTT Thrombin Time POC ABG pH ABG pH POC ABG pCO2 POC ABG pO2 ABG pO2 ABG HCO3 ABG O2 Saturation ABG Base Excess ABG Hemoglobin Oxyhemoglobin Sodium Potassium Chloride Carbon Dioxide BUN Creatinine Glucose POC Glucose 133 H 155 H 136 H Lactic Acid Calcium Magnesium Iron TIBC Direct Bilirubin AST Alkaline Phosphatase Troponin T C-Reactive Protein Total Protein Albumin LDL Cholesterol Direct HDL Cholesterol Vitamin B12 Folate TSH Urine WBC (Auto) Urine Creatinine Urine Total Protein [place] Screen [place] Titer Complement C3 Complement C4 02/23/19 02/23/19 02/24/19 17:50 21:40 00:02 WBC RBC Hgb Hct RDW Plt Count Seg Neuts % (Manual) Lymphocytes % (Manual) Seg Neutrophils # Man Lymphocytes # (Manual) PT INR APTT Thrombin Time POC ABG pH ABG pH POC ABG pCO2 POC ABG pO2 ABG pO2 ABG HCO3 ABG O2 Saturation ABG Base Excess ABG Hemoglobin Oxyhemoglobin Sodium Potassium Chloride Carbon Dioxide BUN Creatinine Glucose POC Glucose 135 H 163 H 152 H Lactic Acid Calcium Magnesium Iron TIBC Direct Bilirubin AST Alkaline Phosphatase Troponin T C-Reactive Protein Total Protein Albumin LDL Cholesterol Direct HDL Cholesterol Vitamin B12 Folate TSH Urine WBC (Auto) Urine Creatinine Urine Total Protein [place] Screen [place] Titer Complement C3 Complement C4 02/24/19 02/24/19 02/24/19 05:03 10:52 10:52 WBC RBC 2.95 L Hgb 8.9 L Hct 27.8 L RDW 17.7 H Plt Count 123 L Seg Neuts % (Manual) Lymphocytes % (Manual) Seg Neutrophils # Man Lymphocytes # (Manual) PT INR APTT Thrombin Time POC ABG pH ABG pH POC ABG pCO2 POC ABG pO2 ABG pO2 ABG HCO3 ABG O2 Saturation ABG Base Excess ABG Hemoglobin Oxyhemoglobin Sodium 149 H Potassium Chloride 114.7 H Carbon Dioxide BUN 80 H Creatinine Glucose 109 H POC Glucose 140 H Lactic Acid Calcium 8.1 L Magnesium Iron TIBC Direct Bilirubin AST Alkaline Phosphatase Troponin T C-Reactive Protein Total Protein Albumin LDL Cholesterol Direct HDL Cholesterol Vitamin B12 Folate TSH Urine WBC (Auto) Urine Creatinine Urine Total Protein [place] Screen [place] Titer Complement C3 Complement C4 02/24/19 02/24/19 02/24/19 17:41 21:45 23:13 WBC RBC Hgb Hct RDW Plt Count Seg Neuts % (Manual) Lymphocytes % (Manual) Seg Neutrophils # Man Lymphocytes # (Manual) PT INR APTT Thrombin Time POC ABG pH ABG pH POC ABG pCO2 POC ABG pO2 ABG pO2 ABG HCO3 ABG O2 Saturation ABG Base Excess ABG Hemoglobin Oxyhemoglobin Sodium Potassium Chloride Carbon Dioxide BUN Creatinine Glucose POC Glucose 115 H 144 H 144 H Lactic Acid Calcium Magnesium Iron TIBC Direct Bilirubin AST Alkaline Phosphatase Troponin T C-Reactive Protein Total Protein Albumin LDL Cholesterol Direct HDL Cholesterol Vitamin B12 Folate TSH Urine WBC (Auto) Urine Creatinine Urine Total Protein [place] Screen [place] Titer Complement C3 Complement C4 02/25/19 02/25/19 02/25/19 05:12 05:51 11:47 WBC RBC Hgb Hct RDW Plt Count Seg Neuts % (Manual) Lymphocytes % (Manual) Seg Neutrophils # Man Lymphocytes # (Manual) PT INR APTT Thrombin Time POC ABG pH ABG pH POC ABG pCO2 POC ABG pO2 130 H ABG pO2 ABG HCO3 ABG O2 Saturation ABG Base Excess ABG Hemoglobin Oxyhemoglobin Sodium Potassium Chloride Carbon Dioxide BUN Creatinine Glucose POC Glucose 163 H 125 H Lactic Acid Calcium Magnesium Iron TIBC Direct Bilirubin AST Alkaline Phosphatase Troponin T C-Reactive Protein Total Protein Albumin LDL Cholesterol Direct HDL Cholesterol Vitamin B12 Folate TSH Urine WBC (Auto) Urine Creatinine Urine Total Protein [place] Screen [place] Titer Complement C3 Complement C4 02/25/19 02/25/19 02/26/19 17:21 23:20 05:55 WBC RBC Hgb Hct RDW Plt Count Seg Neuts % (Manual) Lymphocytes % (Manual) Seg Neutrophils # Man Lymphocytes # (Manual) PT INR APTT Thrombin Time POC ABG pH ABG pH POC ABG pCO2 POC ABG pO2 ABG pO2 ABG HCO3 ABG O2 Saturation ABG Base Excess ABG Hemoglobin Oxyhemoglobin Sodium Potassium Chloride Carbon Dioxide BUN Creatinine Glucose POC Glucose 116 H 132 H 110 H Lactic Acid Calcium Magnesium Iron TIBC Direct Bilirubin AST Alkaline Phosphatase Troponin T C-Reactive Protein Total Protein Albumin LDL Cholesterol Direct HDL Cholesterol Vitamin B12 Folate TSH Urine WBC (Auto) Urine Creatinine Urine Total Protein [place] Screen [place] Titer Complement C3 Complement C4
[2019-02-26] MEDS ORDERED: HALOPERIDOL LACTATE 5 MG/1 ML INJ IV PRN (11:54)
--- NOTE | 2019-02-26 12:55 | Discharge Summary ---
<MIR CARUSO - Last Filed: 02/26/19 14:41> Providers - Providers Date of Admission: 02/01/19 10:11 Attending physician: JACOBY RAMOS MD 02/01/19 10:45 Consult to Physician [CONS] Routine Comment: Consulting Provider: CHINMAY LESTER Physician Instructions: Reason For Exam: respiratory failure, septic shock 02/01/19 10:46 Consult to Physician [CONS] Routine Comment: Consulting Provider: ERIK DENNEY Physician Instructions: Reason For Exam: Septic shock, respiratory failure 02/01/19 10:47 Consult to Physician [CONS] Routine Comment: Consulting Provider: LUIS ALBERTO ESPINOZA Physician Instructions: Reason For Exam: Altered mental status 02/01/19 10:53 Consult to Physician [CONS] Routine Comment: Consulting Provider: RASHMI KAYE Physician Instructions: Reason For Exam: Acute on ?CKD 02/01/19 11:09 Consult to Dietitian/Nutrition [CONS] Routine Physician Instructions: Reason For Exam: Reason for Consult: Evaluate nutritional intake 02/03/19 11:01 Consult to Physician [CONS] Routine Comment: I communicated with dr solomon Consulting Provider: CASSIE SOLOMON Physician Instructions: Reason For Exam: thrombocytopenia 02/05/19 13:19 Consult to Physician [CONS] Urgent Comment: Consulting Provider: WENDY CHRISTIANSON Physician Instructions: Reason For Exam: TERRENCE 02/06/19 12:25 Consult to Physician [CONS] Routine Comment: Consulting Provider: ONEL ROD Physician Instructions: Reason For Exam: ams 02/07/19 14:50 Consult to PICC Line RN [CONS] Routine Reason For Exam: poor venous access Type Line:: Midline 02/12/19 11:09 Physical Therapy Evaluation and Treat [CONS] Routine Comment: Reason For Exam: mobility post stroke 02/12/19 19:15 Consult to Wound/ET Nurse [CONS] Urgent Reason For Exam: wound eval-left knee healing, scabbed 02/14/19 12:22 Consult to Physician [CONS] Routine Comment: Consulting Provider: MIR CARUSO Physician Instructions: Reason For Exam: Trach and Peg Placement 02/21/19 22:30 Consult to Dietitian/Nutrition [CONS] Routine Physician Instructions: Assess nutrtn needs, initiate, modify, manage TF Reason For Exam: Reason for Consult: Write/Manage Tube Feeding Reason for Consult: Write/Manage Tube Feeding Primary care physician: DENYS HORTON DO, MD Hospitalization Condition: Fair Disposition: DC/[place]-63 MEDICARE CERT LTCH Exam - Constitutional Vitals: Temp Pulse Resp BP Pulse Ox 98.8 F 81 17 165/83 98 02/26/19 12:00 02/26/19 14:15 02/26/19 11:52 02/26/19 14:15 02/26/19 11:52 Plan Wound: per your surgeon's advice (REMOVE BLUE SUTURES AROUND TRACHEOSTOMY ON 03/10 TOTAL), other (REMOVE BLUE SUTURES AROUND TRACHEOSTOMY ON 03/10 TOTAL) Follow up with: PRIMARY CARE, [Referring] - 3-5 Days <JACOBY RAMOS - Last Filed: 03/01/19 04:19> Providers - Providers Date of Admission: 02/01/19 10:11 Attending physician: JACOBY RAMOS MD 02/01/19 10:45 Consult to Physician [CONS] Routine Comment: Consulting Provider: CHINMAY LESTER Physician Instructions: Reason For Exam: respiratory failure, septic shock 02/01/19 10:46 Consult to Physician [CONS] Routine Comment: Consulting Provider: ERIK DENNEY Physician Instructions: Reason For Exam: Septic shock, respiratory failure 02/01/19 10:47 Consult to Physician [CONS] Routine Comment: Consulting Provider: LUIS ALBERTO ESPINOZA Physician Instructions: Reason For Exam: Altered mental status 02/01/19 10:53 Consult to Physician [CONS] Routine Comment: Consulting Provider: RASHMI KAYE Physician Instructions: Reason For Exam: Acute on ?CKD 02/01/19 11:09 Consult to Dietitian/Nutrition [CONS] Routine Physician Instructions: Reason For Exam: Reason for Consult: Evaluate nutritional intake 02/03/19 11:01 Consult to Physician [CONS] Routine Comment: I communicated with dr solomon Consulting Provider: CASSIE SOLOMON Physician Instructions: Reason For Exam: thrombocytopenia 02/05/19 13:19 Consult to Physician [CONS] Urgent Comment: Consulting Provider: WENDY CHRISTIANSON Physician Instructions: Reason For Exam: TERRENCE 02/06/19 12:25 Consult to Physician [CONS] Routine Comment: Consulting Provider: ONEL ROD Physician Instructions: Reason For Exam: ams 02/07/19 14:50 Consult to PICC Line RN [CONS] Routine Reason For Exam: poor venous access Type Line:: Midline 02/12/19 11:09 Physical Therapy Evaluation and Treat [CONS] Routine Comment: Reason For Exam: mobility post stroke 02/12/19 19:15 Consult to Wound/ET Nurse [CONS] Urgent Reason For Exam: wound eval-left knee healing, scabbed 02/14/19 12:22 Consult to Physician [CONS] Routine Comment: Consulting Provider: MIR CARUSO Physician Instructions: Reason For Exam: Trach and Peg Placement 02/21/19 22:30 Consult to Dietitian/Nutrition [CONS] Routine Physician Instructions: Assess nutrtn needs, initiate, modify, manage TF Reason For Exam: Reason for Consult: Write/Manage Tube Feeding Reason for Consult: Write/Manage Tube Feeding Primary care physician: DENYS HORTON DO, MD Hospitalization Hospital course: 53 year old woman who was brought in by her family for unsteady gait, fatigue, and withdrawn behavior. I finally noticed difficult to it fine motor skills throughout that night she was having difficulty expressing herself. she was at a restaurant family I will continue to point to the menu. She became more disoriented and less responsive prompting family to bring her to the emergency room - Acute respiratory failure on MV > 96 hours Continue mechanical ventilator, plan for transfer to LTAC for slow weaning, Status post trach and PEG 02/21 Bleeding from tracheostomy Oozing vessel was ligated on 02/24, discussed with general surgeon severe Sepsis Strep pneumoniae bacteremia Right neck cellulitis vs neck LAD PNA meningitis TERRENCE neg for vegatations * Has completed antibiotics. 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 fib. Will need anticoagulation, start on eliquis, watch for bleeding -Atrial fibrillation with RVR Management per Cardiology History of lupus? families is unclear on this medical history, but know that she has some form of autoimmune disease Compliments are reduced, CEHSTER is positive, anti ds dna pending, highly suspect lupus cont steroids Acute metabolic encephalopathy Likely due to sepsis, eeg neg for seizure, neuro input appreciated Acute respiratory failure on MV > 96 hours cont vent per pulmonology Type 2 NM - cardiology input appreciated, rx the underlying cause Thrombocytopenia likely due to sepsis or autoimmune phenomenon, hematology input appreciated, hiv-negative, fibrinogen level is not low, PT PTT is normal. Status post platelet transfusion, improved Macrocytic anemia Hematology input appreciated, folic acid was low, on replacement Hypothyroidism TSH elevated, synthroid dose increased -repeat TFTs in 4-6 wks Hypokalemia, was supplemented Prognosis is guarded The high probability of a clinically significant, sudden or life threatening deterioration of the [CV, Neurology, renal] system(s) required my full and direct attention, intervention and personal management. The aggregate critical care time was [45] minutes. This time is in addition to time spent performing reported procedures but includes the following: [x] Data Review and interpretation [x] Patient assessment and monitoring of vital signs [x] Documentation [x] Medication orders and management Time spent for discharge: 33 mins Core Measure Documentation - Palliative Care Palliative Care/ Comfort Measures: Not Applicable - Core Measures Any of the following diagnoses?: stroke - Stroke Discharge Requirements Statin for LDL = or >70 mg/dl on DC: Yes Anticoag for atrial fib/atrial flutter: Yes Antithrombotic for ischemic stroke: Yes Exam - Physical Exam Narrative exam: General.: no distress, nontoxic HEENT: Moist mucous membranes, extraocular muscles intact, no lymphadenopathy Neck: supple, trache noted Cardiac: S1-S2 heard Lungs: clear to auscultation bilaterally Abdomen: soft , nontender, nondistended, bowel sounds positive, PEG in place Extremities: no edema clubbing or cyanosis Skin: no rash or lesions Neurologic: left hemiparesis, opens eyes, obeys commands Psych: calm, and cooperative - Constitutional Vitals: Temp Pulse Resp BP Pulse Ox 98.8 F 67 17 130/70 98 02/26/19 12:00 02/26/19 11:52 02/26/19 11:52 02/26/19 11:52 02/26/19 11:52
[2019-02-26] MEDS ORDERED: oxyCODONE /ACETAMINOPHEN 5-325MG TAB FEEDTUBE PRN (12:59)
[2019-02-26] MEDS ORDERED: ASPIRIN 81 MG TAB CHEW FEEDTUBE SCH (13:00)
[2019-02-26] MEDS ORDERED: APIXABAN 5 MG TAB FEEDTUBE SCH (13:00)
[2019-02-26] MEDS ORDERED: PSYLLIUM SEED (WITH SUGAR) 3.4 GM PACKET PO SCH (14:00)
[2019-02-26] MEDS: ACETAMINOPHEN 325 MG TAB PO PRN (14:15)
--- NOTE | 2019-02-26 15:23 | Progress Note ---
Assessment and Plan 53-year-old female status post exploration of neck wound, POD 2 and open tracheostomy, PEG tube placement, fiberoptic bronchoscopy, 02/21 Plan: 1. continue current management per medical team 2. ok to dc from surgery standpoint - per case management patient is being dced to LTACH today 3. REMOVE BLUE SUTURES AROUND TRACHEOSTOMY ON 03/10 TOTAL - discussed with [employer] training program manager Thank you, please call with questions. Subjective Date of service: 02/26/19 Narrative: Pt seen and examined. No overnight events. No bleeding from tracheostomy site. Tolerating TF Objective Vital Signs - 12hr 02/26/19 02/26/19 02/26/19 03:27 03:31 03:35 Temperature Pulse Rate 72 68 Pulse Rate [ 63 Anterior Bilateral Throughout] Pulse Rate [ From Monitor] Respiratory 15 Rate Respiratory 12 Rate [Anterior Bilateral Throughout] Blood Pressure 140/80 140/80 O2 Sat by Pulse 100 100 Oximetry O2 Sat by Pulse Oximetry [ Assessment] 02/26/19 02/26/19 02/26/19 04:00 04:31 05:00 Temperature 98.8 F Pulse Rate 59 L 60 65 Pulse Rate [ Anterior Bilateral Throughout] Pulse Rate [ 58 L From Monitor] Respiratory 12 12 12 Rate Respiratory Rate [Anterior Bilateral Throughout] Blood Pressure 137/76 137/76 127/69 O2 Sat by Pulse 100 100 99 Oximetry O2 Sat by Pulse Oximetry [ Assessment] 02/26/19 02/26/19 02/26/19 05:31 06:00 06:31 Temperature Pulse Rate 68 70 66 Pulse Rate [ Anterior Bilateral Throughout] Pulse Rate [ From Monitor] Respiratory 14 14 14 Rate Respiratory Rate [Anterior Bilateral Throughout] Blood Pressure 127/69 138/72 127/69 O2 Sat by Pulse 98 99 99 Oximetry O2 Sat by Pulse Oximetry [ Assessment] 02/26/19 02/26/19 02/26/19 07:00 07:19 07:24 Temperature Pulse Rate 66 66 Pulse Rate [ Anterior Bilateral Throughout] Pulse Rate [ From Monitor] Respiratory 15 Rate Respiratory Rate [Anterior Bilateral Throughout] Blood Pressure 118/59 118/59 O2 Sat by Pulse 98 98 Oximetry O2 Sat by Pulse 97 Oximetry [ Assessment] 02/26/19 02/26/19 02/26/19 07:27 07:31 08:00 Temperature 98.4 F Pulse Rate 59 L 61 Pulse Rate [ 58 L Anterior Bilateral Throughout] Pulse Rate [ From Monitor] Respiratory 12 16 Rate Respiratory 13 Rate [Anterior Bilateral Throughout] Blood Pressure 118/59 132/73 O2 Sat by Pulse 100 100 Oximetry O2 Sat by Pulse Oximetry [ Assessment] 02/26/19 02/26/19 02/26/19 08:19 08:31 09:00 Temperature Pulse Rate 62 64 65 Pulse Rate [ Anterior Bilateral Throughout] Pulse Rate [ From Monitor] Respiratory 15 14 15 Rate Respiratory Rate [Anterior Bilateral Throughout] Blood Pressure 132/73 132/73 135/70 O2 Sat by Pulse 98 99 98 Oximetry O2 Sat by Pulse Oximetry [ Assessment] 02/26/19 02/26/19 02/26/19 09:31 10:00 10:31 Temperature Pulse Rate 62 72 70 Pulse Rate [ Anterior Bilateral Throughout] Pulse Rate [ From Monitor] Respiratory 13 19 17 Rate Respiratory Rate [Anterior Bilateral Throughout] Blood Pressure 135/70 135/74 135/70 O2 Sat by Pulse 99 99 99 Oximetry O2 Sat by Pulse Oximetry [ Assessment] 02/26/19 02/26/19 02/26/19 11:00 11:52 12:00 Temperature 98.8 F Pulse Rate 64 67 Pulse Rate [ Anterior Bilateral Throughout] Pulse Rate [ From Monitor] Respiratory 17 17 Rate Respiratory Rate [Anterior Bilateral Throughout] Blood Pressure 130/70 130/70 O2 Sat by Pulse 99 98 Oximetry O2 Sat by Pulse Oximetry [ Assessment] 02/26/19 14:15 Temperature Pulse Rate 81 Pulse Rate [ Anterior Bilateral Throughout] Pulse Rate [ From Monitor] Respiratory Rate Respiratory Rate [Anterior Bilateral Throughout] Blood Pressure 165/83 O2 Sat by Pulse Oximetry O2 Sat by Pulse Oximetry [ Assessment] - General physical appearance Narrative Exam: Gen: Awake on vent. NAD ENT; Trach site c/d/i without bleeding, swelling CV: S1, S2+ Resp: on vent Abd: PEG in place with TF running Ext; no c/c/e - Labs 02/24/19 10:52 02/24/19 10:52
[2019-02-26 18:24] VITALS: BP 157/77
== END 2019-02-26 18:20 | DRG 4 ==
LOC: ED 06:48 → CC1 10:11
PROVIDERS: ADMIT Internal Medicine; ATTEND Internal Medicine
PROC: 5A1955Z Respiratory Ventilation, Greater than 96 Consecutive Hours (ICD-10-PCS; principal; 2019-02-01)
PROC: 0BH17EZ Insertion of Endotracheal Airway into Trachea, Via Natural or Artificial Opening (ICD-10-PCS; 2019-02-01)
PROC: 4A033R1 Measurement of Arterial Saturation, Peripheral, Percutaneous Approach (ICD-10-PCS; 2019-02-01)
PROC: 30233R1 Transfusion of Nonautologous Platelets into Peripheral Vein, Percutaneous Approach (ICD-10-PCS; 2019-02-05)
PROC: 009U3ZX Drainage of Spinal Canal, Percutaneous Approach, Diagnostic (ICD-10-PCS; 2019-02-06)
PROC: B01B1ZZ Fluoroscopy of Spinal Cord using Low Osmolar Contrast (ICD-10-PCS; 2019-02-06)
PROC: 05HY33Z Insertion of Infusion Device into Upper Vein, Percutaneous Approach (ICD-10-PCS; 2019-02-07)
PROC: 0B110F4 Bypass Trachea to Cutaneous with Tracheostomy Device, Open Approach (ICD-10-PCS; 2019-02-21)
PROC: 0DH63UZ Insertion of Feeding Device into Stomach, Percutaneous Approach (ICD-10-PCS; 2019-02-21)
PROC: 0JC40ZZ Extirpation of Matter from Right Neck Subcutaneous Tissue and Fascia, Open Approach (ICD-10-PCS; 2019-02-24)
DX: A40.3 Sepsis due to Streptococcus pneumoniae (principal); G93.41 Metabolic encephalopathy; N17.0 Acute kidney failure with tubular necrosis; G03.9 Meningitis, unspecified; J13 Pneumonia due to Streptococcus pneumoniae; R65.21 Severe sepsis with septic shock; I21.A1 Myocardial infarction type 2; J96.01 Acute respiratory failure with hypoxia; N39.0 Urinary tract infection, site not specified; L03.221 Cellulitis of neck; Q21.1 Atrial septal defect; E87.0 Hyperosmolality and hypernatremia; Z99.11 Dependence on respirator [ventilator] status; D69.6 Thrombocytopenia, unspecified; E03.9 Hypothyroidism, unspecified; I12.9 Hypertensive chronic kidney disease with stage 1 through stage 4 chronic kidney disease, or unspecified chronic kidney disease; N18.9 Chronic kidney disease, unspecified; R31.29 Other microscopic hematuria; E87.5 Hyperkalemia; I08.3 Combined rheumatic disorders of mitral, aortic and tricuspid valves; E66.9 Obesity, unspecified; Z68.35 Body mass index [BMI] 35.0-35.9, adult; I48.91 Unspecified atrial fibrillation; E11.65 Type 2 diabetes mellitus with hyperglycemia; D53.9 Nutritional anemia, unspecified; K29.70 Gastritis, unspecified, without bleeding; R58 Hemorrhage, not elsewhere classified
CPT/HCPCS: 36415; 36600; 62270; 70450; 70490; 70544; 70551; 71045; 74018; 76536; 77003; 80048; 80053; 80061; 80074; 80076; 80202; 81001; 81015; 82140; 82570; 82607; 82728; 82747; 82803; 82947; 82962; 83550; 83735; 84100; 84156; 84160; 84439; 84443; 84484; 85007; 85014; 85018; 85025; 85027; 85384; 85610; 85652; 85670; 85730; 86021; 86038; 86140; 86160; 86225; 86592; 86850; 86900; 86901; 87040; 87070; 87076; 87086; 87116; 87186; 87205; 87806; 89051; 93005; 93010; 93306; 93312; 93320; 93325; 93880; 94002; 94003; 94640; 94667; 94668; 94669; 95819; 96365; 96375; G0378; J0282; J0330; J0360; J0456; J0690; J0692; J0696; J1100; J1630; J1815; J2060; J2250; J2270; J2370; J2405; J2704; J2930; J3010; J3370; J3475; J7030; J7040; J7050; J7060; J7070; J7120; J7512; P9035

== ENCOUNTER 2019-02-28 09:41 | Inpatient (IN) | payer OTHER ==
[2019-02-28] MEDS ORDERED: NACL 0.9% 1000 ML 2,000 ML ONE (10:04)
[2019-02-28] MEDS ORDERED: NACL 0.9% 1000 ML 1,000 ML IV ONE (10:08)
--- NOTE | 2019-02-28 10:29 | Emergency Department Report ---
ED ENT HPI - General Chief complaint: Dental/Oral Stated complaint: BLEEDING FROM TRACH Time Seen by Provider: 02/28/19 09:58 Source: family, EMS Mode of arrival: Stretcher Limitations: Other - History of Present Illness Initial comments: 53-year-old female with a past medical history hypertension, hypothyroidism, recent tracheostomy placed for respiratory failure and alteration in mental status presents from [facility] for persistent bleeding from tracheostomy. Patient has some bleeding after tracheostomy placement and went back to the OR. Bleeding apparently stopped prior to discharge. Only information available is that patient had bleeding tracheostomy 2 days which would be since the day she was discharged. Call received by overnight physician the patient will be sent back to the ER and arrived at 9:50 AM. Patient unable to provide any history of present illness and is nonverbal. Pt was d/c'ed on eliquis as per MAR on record. She did had an episode of afib with rvr during admission. - Related Data Previous Rx's Medication Instructions Recorded Last Taken Type Apixaban [Eliquis] 5 mg FEEDTUBE Q12HR tablet 02/26/19 02/27/19 Rx Aspirin [Aspirin BABY CHEW TAB] 81 mg FEEDTUBE QDAY tab.chew 02/26/19 02/27/19 Rx Folic Acid [Folvite] 1 mg PO QDAY tablet 02/26/19 02/27/19 Rx Insulin Glargine [Lantus VIAL] 15 units SUB-Q QHS units 02/26/19 02/27/19 Rx Insulin Regular, Human [HumuLIN R] 0 units SUB-Q Q6HR units 02/26/19 02/27/19 Rx Ipratropium/Albuterol Sulfate 1 ampul IH Q6HRT ampul.neb 02/26/19 02/27/19 Rx [DUONEB *Not for PRN Use*] LORazepam [Ativan INJ] 1 mg IV Q6H PRN vial 02/26/19 02/27/19 Rx Lansoprazole Solutab [Prevacid 30 mg FEEDTUBE BID tab.rapdis 02/26/19 02/27/19 Rx Solutab] Levothyroxine [Synthroid] 125 mcg PO QAM tablet 02/26/19 02/27/19 Rx Psyllium Seed (with Sugar) 1 each PO QDAY packet 02/26/19 02/27/19 Rx [Metamucil] dilTIAZem [Cardizem] 60 mg PO Q6H tablet 02/26/19 02/27/19 Rx oxyCODONE /ACETAMINOPHEN [Percocet 1 tab FEEDTUBE Q6H PRN tablet 02/26/19 02/27/19 Rx 5/325 mg] predniSONE [Deltasone] 20 mg PO QDAY tablet 02/26/19 02/27/19 Rx Allergies Allergy/AdvReac Type Severity Reaction Status Date / Time No Known Allergies Allergy Verified 08/18/18 09:04 ED Dental HPI - General Chief complaint: Dental/Oral Stated complaint: BLEEDING FROM TRACH Time Seen by Provider: 02/28/19 09:58 Source: family, EMS Mode of arrival: Stretcher Limitations: Other - Related Data Previous Rx's Medication Instructions Recorded Last Taken Type Apixaban [Eliquis] 5 mg FEEDTUBE Q12HR tablet 02/26/19 02/27/19 Rx Aspirin [Aspirin BABY CHEW TAB] 81 mg FEEDTUBE QDAY tab.chew 02/26/19 02/27/19 Rx Folic Acid [Folvite] 1 mg PO QDAY tablet 02/26/19 02/27/19 Rx Insulin Glargine [Lantus VIAL] 15 units SUB-Q QHS units 02/26/19 02/27/19 Rx Insulin Regular, Human [HumuLIN R] 0 units SUB-Q Q6HR units 02/26/19 02/27/19 Rx Ipratropium/Albuterol Sulfate 1 ampul IH Q6HRT ampul.neb 02/26/19 02/27/19 Rx [DUONEB *Not for PRN Use*] LORazepam [Ativan INJ] 1 mg IV Q6H PRN vial 02/26/19 02/27/19 Rx Lansoprazole Solutab [Prevacid 30 mg FEEDTUBE BID tab.rapdis 02/26/19 02/27/19 Rx Solutab] Levothyroxine [Synthroid] 125 mcg PO QAM tablet 02/26/19 02/27/19 Rx Psyllium Seed (with Sugar) 1 each PO QDAY packet 02/26/19 02/27/19 Rx [Metamucil] dilTIAZem [Cardizem] 60 mg PO Q6H tablet 02/26/19 02/27/19 Rx oxyCODONE /ACETAMINOPHEN [Percocet 1 tab FEEDTUBE Q6H PRN tablet 02/26/19 02/27/19 Rx 5/325 mg] predniSONE [Deltasone] 20 mg PO QDAY tablet 02/26/19 02/27/19 Rx Allergies Allergy/AdvReac Type Severity Reaction Status Date / Time No Known Allergies Allergy Verified 08/18/18 09:04 ED Review of Systems ROS: Stated complaint: BLEEDING FROM TRACH Other details as noted in HPI Comment: Unobtainable due to pts medical conditions ED Past Medical Hx - Past Medical History Previous Medical History?: Yes Hx Hypertension: Yes Hx CVA: Yes Hx Heart Attack/AMI: No (demand ischemia on admission; normal EF on more recent TTE/TERRENCE) Hx Deep Vein Thrombosis: No Hx Liver Disease: No Hx Renal Disease: Yes (DIANA; resolved) Hx Sickle Cell Disease: No Hx Seizures: No Additional medical history: Hypothyroidism - Surgical History Past Surgical History?: Yes Hx Pacemaker: No Hx Internal Defibrillator: No - Social History Smoking Status: Unknown if ever smoked - Medications Home Medications: Home Medications Medication Instructions Recorded Confirmed Last Taken Type Apixaban [Eliquis] 5 mg FEEDTUBE Q12HR tablet 02/26/19 02/28/19 02/27/19 Rx Aspirin [Aspirin BABY CHEW TAB] 81 mg FEEDTUBE QDAY tab.chew 02/26/19 02/27/19 Rx Folic Acid [Folvite] 1 mg PO QDAY tablet 02/26/19 02/28/19 02/27/19 Rx Insulin Glargine [Lantus VIAL] 15 units SUB-Q QHS units 02/26/19 02/28/19 02/27/19 Rx Insulin Regular, Human [HumuLIN R] 0 units SUB-Q Q6HR units 02/26/19 02/28/19 02/27/19 Rx Ipratropium/Albuterol Sulfate 1 ampul IH Q6HRT ampul.neb 02/26/19 02/28/19 02/27/19 Rx [DUONEB *Not for PRN Use*] LORazepam [Ativan INJ] 1 mg IV Q6H PRN vial 02/26/19 02/28/19 02/27/19 Rx Lansoprazole Solutab [Prevacid 30 mg FEEDTUBE BID tab.rapdis 02/26/19 02/28/19 02/27/19 Rx Solutab] Levothyroxine [Synthroid] 125 mcg PO QAM tablet 02/26/19 02/28/19 02/27/19 Rx Psyllium Seed (with Sugar) 1 each PO QDAY packet 02/26/19 02/28/19 02/27/19 Rx [Metamucil] dilTIAZem [Cardizem] 60 mg PO Q6H tablet 02/26/19 02/28/19 02/27/19 Rx oxyCODONE /ACETAMINOPHEN [Percocet 1 tab FEEDTUBE Q6H PRN tablet 02/26/19 02/28/19 02/27/19 Rx 5/325 mg] predniSONE [Deltasone] 20 mg PO QDAY tablet 02/26/19 02/28/19 02/27/19 Rx ED Physical Exam - General Limitations: Other - Other Other exam information: Gen.: No acute distress Head: Atraumatic Eyes: Normal appearance EENT: Moist mucous membranes Neck: Tracheostomy scar with firmness the anterior neck behind tracheostomy questionable hematoma. Bright red clotted blood around tracheostomy tubing. Patient does have sutures in place adjacent to the neck with some mild oozing. She has blood in her mouth. No active bleeding from tracheostomy cannula. No stridor Chest: Clear to auscultation bilaterally Cardiovascular: Tachycardic regular rhythm Abdomen: Normal appearance, soft, nontender, no rebound or guarding, normal bowel sounds Back: Normal appearance, nontender Extremity: Left arm edema, PICC line Neuro: Patient's eyes are open and she is alert and she nods in response to questions. Left-sided paralysis. Minimal movement of right arm and leg without antigravity movement ED Course Vital Signs 02/28/19 02/28/19 02/28/19 09:59 10:00 11:35 Temperature 99.3 F 98.9 F Pulse Rate 99 H 133 H 115 H Respiratory 20 20 Rate Blood Pressure 125/85 Blood Pressure 106/83 118/79 [Right] O2 Sat by Pulse 100 100 100 Oximetry O2 Sat by Pulse Oximetry [ Assessment] 02/28/19 02/28/19 12:28 12:53 Temperature 99.2 F Pulse Rate 107 H Respiratory 20 Rate Blood Pressure Blood Pressure 100/60 [Right] O2 Sat by Pulse 100 Oximetry O2 Sat by Pulse 100 Oximetry [ Assessment] - Consultations Consultation #1: 02/28/19 10:20 case d/w Dr Doran, she will come to access pt, request ct neck with iv contrast. ED Medical Decision Making - Lab Data Result diagrams: 02/28/19 10:18 02/28/19 10:18 Lab Results 02/28/19 02/28/19 02/28/19 Range/Units 10:18 10:18 10:18 WBC 4.2 L (4.5-11.0) K/mm3 RBC 2.62 L (3.65-5.03) M/mm3 Hgb 8.1 L (10.1-14.3) gm/dl Hct 24.2 L (30.3-42.9) % MCV 93 (79-97) fl MCH 31 (28-32) pg MCHC 33 (30-34) % RDW 15.2 (13.2-15.2) % Plt Count 106 L (140-440) K/mm3 PT 16.2 H (12.2-14.9) Sec. INR 1.34 H (0.87-1.13) APTT 29.9 (24.2-36.6) Sec. Sodium 152 H (137-145) mmol/L Potassium 4.6 (3.6-5.0) mmol/L Chloride 117.6 H (98-107) mmol/L Carbon Dioxide 24 (22-30) mmol/L Anion Gap 15 mmol/L BUN 84 H (7-17) mg/dL Creatinine 0.8 (0.7-1.2) mg/dL Estimated GFR > 60 ml/min BUN/Creatinine Ratio 105 % Glucose 130 H (65-100) mg/dL Calcium 7.8 L (8.4-10.2) mg/dL Total Bilirubin 0.70 (0.1-1.2) mg/dL AST 49 H (5-40) units/L ALT 19 (7-56) units/L Alkaline Phosphatase 100 (35-129) units/L Total Protein 5.0 L (6.3-8.2) g/dL Albumin 2.0 L (3.9-5) g/dL Albumin/Globulin Ratio 0.7 % Blood Type Antibody Screen 09/11/19 Range/Units 10:18 WBC (4.5-11.0) K/mm3 RBC (3.65-5.03) M/mm3 Hgb (10.1-14.3) gm/dl Hct (30.3-42.9) % MCV (79-97) fl MCH (28-32) pg MCHC (30-34) % RDW (13.2-15.2) % Plt Count (140-440) K/mm3 PT (12.2-14.9) Sec. INR (0.87-1.13) APTT (24.2-36.6) Sec. Sodium (137-145) mmol/L Potassium (3.6-5.0) mmol/L Chloride (98-107) mmol/L Carbon Dioxide (22-30) mmol/L Anion Gap mmol/L BUN (7-17) mg/dL Creatinine (0.7-1.2) mg/dL Estimated GFR ml/min BUN/Creatinine Ratio % Glucose (65-100) mg/dL Calcium (8.4-10.2) mg/dL Total Bilirubin (0.1-1.2) mg/dL AST (5-40) units/L ALT (7-56) units/L Alkaline Phosphatase (35-129) units/L Total Protein (6.3-8.2) g/dL Albumin (3.9-5) g/dL Albumin/Globulin Ratio % Blood Type B POSITIVE Antibody Screen Negative - EKG Data -: EKG Interpreted by Me (rbbb) EKG shows normal: sinus rhythm, axis (qrs -73), QRS complexes (qrsd 136), ST-T waves (no stemi) Rate: tachycardia (128) - Radiology Data Radiology results: report reviewed Chest x-ray: Possible left hilar mass 2-[address] chest. Resolution of bilateral lateral airspace disease Next CT with IV contrast: See report. - Medical Decision Making Case was discussed with both pulmonology and surgery. Ddvap and 1 unit of packed red cells recommended. MAR note pt is on Eliquis pt will be admitted for further care Pt's HR improving with Normal saline decreased from 133 to 107 1 PRBC pending - Differential Diagnosis trachea arterial fistula, bleeding skin vessel, coagulopathy Critical Care Time: No Critical care attestation.: If time is entered above; I have spent that time in minutes in the direct care of this critically ill patient, excluding procedure time. ED Disposition Clinical Impression: Tracheal hemorrhage, Anemia, Thrombocytopenia Disposition: DC-09 OP ADMIT IP TO THIS HOSP Is pt being admited?: Yes Condition: Stable Referrals: BARBIE REYES MD [Primary Care Provider] - 3-5 Days Time of Disposition: 13:37 (Dr wynn/hosp)
[2019-02-28 10:34] LABS: Hematocrit 24.2 % (30.3-42.9); Hemoglobin 8.1 gm/dl (10.1-14.3); Mean Corpuscular HGB Conc 33 % (30-34); Mean Corpuscular Volume 93 fl (79-97); Platelet Count 106 K/mm3 (140-440); Red Blood Count 2.62 M/mm3 (3.65-5.03); Red Cell Distribution Width 15.2 % (13.2-15.2)
[2019-02-28 10:44] LABS: INR 1.34 (0.87-1.13)
[2019-02-28 10:45] LABS: Partial Thromboplastin Time 29.9 Sec. (24.2-36.6)
[2019-02-28 10:58] LABS: Alanine Aminotransferase 19 units/L (7-56); BUN/Creatinine Ratio 105; Blood Urea Nitrogen 84 mg/dL (7-17); Calcium 7.8 mg/dL (8.4-10.2); Hemolysis Index 1
--- NOTE | 2019-02-28 11:06 | XRay Report ---
CHEST 1 VIEW INDICATION: bleeding trach. COMPARISON: 02/12/2019 FINDINGS: Support devices: A tracheostomy tube appears to be in satisfactory position. Heart: Within normal limits. Pulmonary vasculature: Normal. Lungs/Pleura: The lungs have cleared since the last exam. No airspace disease or pleural effusion. Additional findings: A masslike opacity in the left hilum is oval and hyperdense and measures 2 to 3 cm. IMPRESSION: 1. A possible left hilar mass. 2. Recommend CT chest further evaluation. 3. Resolution of bilateral airspace disease. Signer Name: Anthony Ramirez MD Signed: 02/28/2019 11:02 AM Workstation Name: [id number]
--- NOTE | 2019-02-28 11:07 | Consultation ---
History of Present Illness Consult date: 02/28/19 Requesting physician: IRIS CAUSEY Reason for consult: other (chronic respiratory failure and bleeding) History of present illness: 53 y/o female, just discharged from this facility 2 days ago after a prolonged stay for altered mental state secondary to Pneumococcal Menigints and acute respiratory failure requiring trach and peg who has been transferred back to the ED secondary bleeding. Patient has PLT count of 106 and hgB of 8.1 (was 8.9 when she left) and INR of 1.34. She is awake and alert. Currently on 50% and stable. Surgery at bedside. REmainder of the review is positive for elevated BUN. Past History Past Medical History: stroke, other (meningitis (pneumoccal)) Past Surgical History: Other (trach and peg placement) Social history: no significant social history Family history: no significant family history Medications and Allergies Allergies Allergy/AdvReac Type Severity Reaction Status Date / Time No Known Allergies Allergy Verified 08/18/18 09:04 Home Medications Medication Instructions Recorded Confirmed Last Taken Type Apixaban [Eliquis] 5 mg FEEDTUBE Q12HR tablet 02/26/19 Unknown Rx Aspirin [Aspirin BABY CHEW TAB] 81 mg FEEDTUBE QDAY tab.chew 02/26/19 Unknown Rx Folic Acid [Folvite] 1 mg PO QDAY tablet 02/26/19 Unknown Rx Insulin Glargine [Lantus VIAL] 15 units SUB-Q QHS units 02/26/19 Unknown Rx Insulin Regular, Human [HumuLIN R] 0 units SUB-Q Q6HR units 02/26/19 Unknown Rx Ipratropium/Albuterol Sulfate 1 ampul IH Q6HRT ampul.neb 02/26/19 Unknown Rx [DUONEB *Not for PRN Use*] LORazepam [Ativan INJ] 1 mg IV Q6H PRN vial 02/26/19 Unknown Rx Lansoprazole Solutab [Prevacid 30 mg FEEDTUBE BID tab.rapdis 02/26/19 Unknown Rx Solutab] Levothyroxine [Synthroid] 125 mcg PO QAM tablet 02/26/19 Unknown Rx Psyllium Seed (with Sugar) 1 each PO QDAY packet 02/26/19 Unknown Rx [Metamucil] dilTIAZem [Cardizem] 60 mg PO Q6H tablet 02/26/19 Unknown Rx oxyCODONE /ACETAMINOPHEN [Percocet 1 tab FEEDTUBE Q6H PRN tablet 02/26/19 Unknown Rx 5/325 mg] predniSONE [Deltasone] 20 mg PO QDAY tablet 02/26/19 Unknown Rx Active Meds: Active Medications Sodium Chloride (Nacl 0.9% 1000 Ml) 1,000 mls @ 999 mls/hr IV BOLUS ONE Stop: 02/28/19 11:08 Last Admin: 02/28/19 10:23 Dose: 999 mls/hr Documented by: Review of Systems All systems: negative Physical Examination Vital signs: Vital Signs Temp Pulse Resp BP Pulse Ox 99.3 F 133 H 19 106/83 100 02/28/19 10:00 02/28/19 10:00 02/28/19 10:00 02/28/19 10:00 02/28/19 10:00 General appearance: no acute distress, alert ENT: other (old blood seen around trach site, mouth and nose) Neck: other (trach present and midline, old blood present around trach) Effort: normal Ascultation: Bilateral: clear Percussion: Bilateral: not dull Tactile fremitus: Bilateral: normal Cardiovascular: other (sinus tach) Gastrointestinal: normoactive bowel sounds, soft Extremities: no cyanosis, no edema, pulses normal normal mental status Results - Laboratory Findings CBC and BMP: 02/28/19 10:18 02/28/19 10:18 PT/INR, D-dimer PT 16.2 Sec. (12.2-14.9) H 02/28/19 10:18 INR 1.34 (0.87-1.13) H 02/28/19 10:18 Abnormal lab findings: Abnormal Labs 02/28/19 02/28/19 02/28/19 10:18 10:18 10:18 WBC 4.2 L RBC 2.62 L Hgb 8.1 L Hct 24.2 L Plt Count 106 L PT 16.2 H INR 1.34 H Sodium 152 H Chloride 117.6 H BUN 84 H Glucose 130 H Calcium 7.8 L AST 49 H Total Protein 5.0 L Albumin 2.0 L - Diagnostic Findings Chest x-ray: image reviewed (no evidence of acute lung disease) Assessment and Plan 53 y/o female with bleeding from around trach site and thrombocytopenia and uremia. 1. Will give an additional unit of blood. Spoke with mom she actually received 2 units prior to her coming to this ED. Her hemoglobin was down to somewhere around 6. She appears to have responded appropriately but does continue to ooze 2. Will also give a one time dose of DDAVP to see if this help with bleeding as the uremia could be causing platelet dysfunction. 3. Continue vent support 4. q6hour H/H's 5. Follow CT of neck with contrast 6. Will return to unit at some point. Overall prognosis is guarded. CCt 31 minutes.
--- NOTE | 2019-02-28 11:43 | Consultation ---
History of Present Illness Consult date: 02/28/19 Chief complaint: bleeding trach - History of present illness History of present illness: 53 yo F recently discharged from [facility] on 02/26/19 to [facility] presents for evaluation of bleeding from tracheostomy site. Tracheostomy was done on 02/21/19 and patient taken back to OR on 02/24 due to bleeding. At that time only bleeding from the sk in was identified where a suture had pulled through the skin incision. After a thorough inspection of the entire wound, no other sites of active bleeding were seen. On the day of discharge the tracheostomy site was clean with minimal bloody staining on tracheostomy drain sponge, and no active bleeding. Per the patient's mother, she noticed bleeding from the trach site on Tuesday (yesterday) am. She also noted blood coming from the patient's mouth and nose. She states the patient was cleaned up and dressings changed and she was ok for a few hours. Then she started bleeding again. Per mother, patient was transfused 2 units of blood over the course on yesterday. Past History Past Medical History: stroke, other (meningitis (pneumoccal)) Past Surgical History: Other (trach and peg placement) Social history: no significant social history Family history: no significant family history Medications and Allergies Allergies Allergy/AdvReac Type Severity Reaction Status Date / Time No Known Allergies Allergy Verified 08/18/18 09:04 Home Medications Medication Instructions Recorded Confirmed Last Taken Type Apixaban [Eliquis] 5 mg FEEDTUBE Q12HR tablet 02/26/19 Unknown Rx Aspirin [Aspirin BABY CHEW TAB] 81 mg FEEDTUBE QDAY tab.chew 02/26/19 Unknown Rx Folic Acid [Folvite] 1 mg PO QDAY tablet 02/26/19 Unknown Rx Insulin Glargine [Lantus VIAL] 15 units SUB-Q QHS units 02/26/19 Unknown Rx Insulin Regular, Human [HumuLIN R] 0 units SUB-Q Q6HR units 02/26/19 Unknown Rx Ipratropium/Albuterol Sulfate 1 ampul IH Q6HRT ampul.neb 02/26/19 Unknown Rx [DUONEB *Not for PRN Use*] LORazepam [Ativan INJ] 1 mg IV Q6H PRN vial 02/26/19 Unknown Rx Lansoprazole Solutab [Prevacid 30 mg FEEDTUBE BID tab.rapdis 02/26/19 Unknown Rx Solutab] Levothyroxine [Synthroid] 125 mcg PO QAM tablet 02/26/19 Unknown Rx Psyllium Seed (with Sugar) 1 each PO QDAY packet 02/26/19 Unknown Rx [Metamucil] dilTIAZem [Cardizem] 60 mg PO Q6H tablet 02/26/19 Unknown Rx oxyCODONE /ACETAMINOPHEN [Percocet 1 tab FEEDTUBE Q6H PRN tablet 02/26/19 Unknown Rx 5/325 mg] predniSONE [Deltasone] 20 mg PO QDAY tablet 02/26/19 Unknown Rx Active Meds: Active Medications Desmopressin Acetate 25 mcg/ (Sodium Chloride) 56.25 mls @ 100 mls/hr IV ONCE ONE Stop: 02/28/19 12:52 Review of Systems ROS unobtainable: due to endotracheal tube, due to mental status Exam Vital Signs Temp Pulse Resp BP Pulse Ox 99.3 F 133 H 19 106/83 100 02/28/19 10:00 02/28/19 10:00 02/28/19 10:00 02/28/19 10:00 02/28/19 10:00 Narrative exam: Gen: awake and alert on vent. answers yes/no questions appropriately ENT: tracheostomy in place. Sutures present in skin incision. 2 sutures, one on either side of the tracheostomy has pulled through the skin. There is hematoma in the wound and around old clotted blood tracheostomy. There is blood on the neck strap. There is blood in the patient's mouth. No tongue injury seen or active bleeding in the mouth. Sutures that were pulled through skin were removed. The wound was cleaned of all blood clot. Pressure was help around the tracheostomy. Very mild oozing seen at skin where sutures were pulled through incision. Otherwise, no active bleeding. Hemostasis ensured and wound packed with surgicel and 4x4 gauze. Tracheostomy secured with neck strap. The is ecchym osis of the skin of the anterior neck with small hematoma. CV; s1, S2+ Tachy resp: on 50% Fio2 on vent, saturating 100%. Abd: soft Ext: no c/c/e Results - Labs 02/28/19 10:18 02/28/19 10:18 Abnormal lab results 02/28/19 02/28/1919 Range/Units 10:18 10:18 10:18 WBC 4.2 L (4.5-11.0) K/mm3 RBC 2.62 L (3.65-5.03) M/mm3 Hgb 8.1 L (10.1-14.3) gm/dl Hct 24.2 L (30.3-42.9) % Plt Count 106 L (140-440) K/mm3 PT 16.2 H (12.2-14.9) Sec. INR 1.34 H (0.87-1.13) Sodium 152 H (137-145) mmol/L Chloride 117.6 H (98-107) mmol/L BUN 84 H (7-17) mg/dL Glucose 130 H (65-100) mg/dL Calcium 7.8 L (8.4-10.2) mg/dL AST 49 H (5-40) units/L Total Protein 5.0 L (6.3-8.2) g/dL Albumin 2.0 L (3.9-5) g/dL Diabetes panel 02/28/19 Range/Units 10:18 Sodium 152 H (137-145) mmol/L Potassium 4.6 (3.6-5.0) mmol/L Chloride 117.6 H (98-107) mmol/L Carbon Dioxide 24 (22-30) mmol/L BUN 84 H (7-17) mg/dL Creatinine 0.8 (0.7-1.2) mg/dL Glucose 130 H (65-100) mg/dL Calcium 7.8 L (8.4-10.2) mg/dL AST 49 H (5-40) units/L ALT 19 (7-56) units/L Alkaline Phosphatase 100 (35-129) units/L Total Protein 5.0 L (6.3-8.2) g/dL Albumin 2.0 L (3.9-5) g/dL Calcium panel 02/28/19 Range/Units 10:18 Calcium 7.8 L (8.4-10.2) mg/dL Albumin 2.0 L (3.9-5) g/dL Pituitary panel 02/28/19 Range/Units 10:18 Sodium 152 H (137-145) mmol/L Potassium 4.6 (3.6-5.0) mmol/L Chloride 117.6 H (98-107) mmol/L Carbon Dioxide 24 (22-30) mmol/L BUN 84 H (7-17) mg/dL Creatinine 0.8 (0.7-1.2) mg/dL Glucose 130 H (65-100) mg/dL Calcium 7.8 L (8.4-10.2) mg/dL Adrenal panel 02/28/19 Range/Units 10:18 Sodium 152 H (137-145) mmol/L Potassium 4.6 (3.6-5.0) mmol/L Chloride 117.6 H (98-107) mmol/L Carbon Dioxide 24 (22-30) mmol/L BUN 84 H (7-17) mg/dL Creatinine 0.8 (0.7-1.2) mg/dL Glucose 130 H (65-100) mg/dL Calcium 7.8 L (8.4-10.2) mg/dL Total Bilirubin 0.70 (0.1-1.2) mg/dL AST 49 H (5-40) units/L ALT 19 (7-56) units/L Alkaline Phosphatase 100 (35-129) units/L Total Protein 5.0 L (6.3-8.2) g/dL Albumin 2.0 L (3.9-5) g/dL Assessment and Plan 53 yo F with bleeding from tracheostomy site Plan: 1. wound care done and clot evacuated from wound - minimal oozing from skin where sutures tore through. Controlled with surgical packing and pressure. 2. patient saturating well on vent with satisfactory tidal volumes - continue vent management per pulm team 3. transfuse prbc as needed and trend Hb 4. DDAVP x 1 dose 5. serial exams 6. CTA neck STAT 7. CXR pending 8. Per ambulatory orders written on discharge, patient was placed on eliquis on 02/26/19. I am not sure why she is on eliquis. Please hold all blood thinners as this may be contributing to bleeding Discussed with Dr. Fernandez and patient's mother Thank you, please call with questions
[2019-02-28] MEDS ORDERED: DDAVP 25 MCG in NACL 0.9% 50 ML IV ONE (12:19)
[2019-02-28] MEDS ORDERED: NACL 0.9% 500 ML 500 ML IV ONE ×4 (12:50→16:16)
--- NOTE | 2019-02-28 13:02 | Cat Scan Report ---
CT neck w con INDICATION / CLINICAL INFORMATION: 53 years Female; neck bleeding s/p trach. TECHNIQUE: Contiguous thin cut axial images obtained through the neck following IV contrast. Sagittal and vaughan l reconstructions performed by the technologist. All CT scans at this location are performed using CT dose reduction for ALARA by means of automated exposure control. COMPARISON: None available. FINDINGS: Tracheostomy tube is in place. Surrounding interstitial edema suggested, presumably related to recent placement. Mildly prominent, presumed external jugular vein noted on the left with a small branch passing towards the anterior jugular vein region on the right, near the incision for the trac heostomy tube. MUCOSAL SPACE: There may be soft tissue swelling in the left oropharynx and left piriform sinus regio n. Interstitial edema seen in the surrounding soft tissues as well, extending inferiorly in the neck- please clinically correlate. The nasopharynx, oropharynx and vallecula, oral cavity and floor of mout h, hypopharynx, and larynx are grossly normal. LYMPH NODES: No significant adenopathy appreciated. SALIVARY GLANDS: Parotid, submandibular, and visualized sublingual glands are within normal limits. THYROID GLAND: Unremarkable. PARANASAL SINUSES: Air-fluid levels seen in the majority of the sinuses. Right mastoid air cells and middle ear cavity are opacified. SPINE: No significant abnormality of the cervical spine appreciated. VASCULAR STRUCTURES: Note, it is difficult to visualize portions of the left common carotid artery ne ar the bifurcation region, most likely secondary to the significant amount of dense venous contrast p resent-carotid Doppler analysis may be of benefit. Note, there may narrowing of the left brachiocepha lic vein, to some degree-this vessel not completely visualized on this exam. This may explain why the re is retrograde flow of contrast superiorly in the venous system of the mid to lower neck. Surrounding soft tissues are otherwise grossly normal. IMPRESSION: 1. Tracheostomy tube placement as described above. Some component of soft tissue edema and/or swellin g noted as described above as well. Please clinically correlate. 2. If this report does not address a specific clinical question, please feel free to contact neurorad iology. 3. Carotid Doppler analysis may be of benefit, as described above. Signer Name: Rito Worley MD, III Signed: 02/28/2019 12:58 PM Workstation Name: [id number]
[2019-02-28 13:20] LABS: Band Neutrophils # (Manual) 0.2 K/mm3; Basophils % (Manual) 0 % (0.0-1.8); Eosinophils % (Manual) 0 % (0.0-4.3); Total Cells Counted 100
[2019-02-28 13:21] LABS: Anisocytosis Few; Hypochromasia Few; Macrocytosis Few; Platelet Estimate Consistent w Auto
--- NOTE | 2019-02-28 15:27 | Event Note ---
Date: 02/28/19 Reevaluated patient this afternoon. Patient's tracheostomy dressing is dry. Small anterior neck hematoma is stable. No bleeding seen. HR is 107-110, SBP is 120s. Patient appears comfortable. CTA neck images and report reviewed - no evidence of active bleeding. Post surgical changes. Per patient's mother she was not aware of blood thinners being given to patient. Reviewed paperwork sent with patient from [facility]. Only laboratory data and CXR results. No medication list or administration records. These will need to be requested for review. Continue current management. Trend Hb and transfuse as needed. Will continue to monitor. Please avoid manipulating tracheostomy and DO NOT CHANGE tracheostomy dressing.
[2019-02-28 15:29] LABS: Hemoglobin 6.7 gm/dl (10.1-14.3)
[2019-02-28] MEDS ORDERED: NACL 0.9% 500 ML 500 ML ONE (16:33)
[2019-02-28] MEDS ORDERED: SODIUM BICARBONATE FEEDTUBE PRN (21:47)
[2019-02-28] MEDS ORDERED: SIMPLE SYRUP FEEDTUBE PRN ×2 (21:47)
[2019-02-28] MEDS ORDERED: ZOFRAN IV PRN (21:47)
[2019-02-28] MEDS ORDERED: SODIUM CHLORIDE FLUSH SYRINGE 10 ML IV PRN ×2 (21:47)
[2019-02-28] MEDS ORDERED: DILAUDID IV PRN (21:47)
[2019-02-28] MEDS ORDERED: PANCREAZE DR 10,500 UNIT FEEDTUBE PRN (21:47)
[2019-02-28] MEDS ORDERED: TYLENOL PO PRN (21:47)
[2019-02-28] MEDS ORDERED: SODIUM CHLORIDE FLUSH SYRINGE 10 ML IV SCH (22:00)
[2019-02-28] MEDS ORDERED: NACL 0.9% 1000 ML 1,000 ML IV SCH (22:00)
[2019-02-28] MEDS ORDERED: PEPCID IV SCH (22:00)
[2019-02-28] MEDS: SODIUM CHLORIDE FLUSH SYRINGE 10 ML IV SCH (22:36)
[2019-02-28] MEDS ORDERED: D50W (25GM) Syringe IV PRN (22:42)
[2019-03-01 00:08] LABS: Hematocrit 26.8 % (30.3-42.9)
[2019-03-01] MEDS: HumuLIN R SUB-Q SCH ×3 (00:22→13:44)
[2019-03-01] MEDS: DUONEB *Not for PRN Use IH SCH ×4 (02:05→19:33)
[2019-03-01 06:11] LABS: Hematocrit 22.5 % (30.3-42.9); Hemoglobin 7.5 gm/dl (10.1-14.3)
[2019-03-01 06:35] LABS: Albumin 1.8 g/dL (3.9-5); BUN/Creatinine Ratio 95; Blood Urea Nitrogen 95 mg/dL (7-17); Calcium 7.7 mg/dL (8.4-10.2); Hemolysis Index 100
--- NOTE | 2019-03-01 06:37 | Event Note ---
Date: 02/28/19 See H/p in reports Trach site bleeding---resolved in ED Symptomatic anemia
[2019-03-01] MEDS ORDERED: ATIVAN IV PRN (06:40)
[2019-03-01 06:43] LABS: Alanine Aminotransferase 16 units/L (7-56)
[2019-03-01] MEDS: SYNTHROID PO SCH (06:51)
[2019-03-01] MEDS: CARDIZEM PO SCH ×2 (06:52→13:42)
[2019-03-01] MEDS ORDERED: NACL 0.45% 1000 ML 1,000 ML IV SCH (07:00)
[2019-03-01] MEDS ORDERED: TYLENOL PO PRN (07:00)
--- NOTE | 2019-03-01 07:11 | History and Physical Report ---
CHIEF COMPLAINT: Bleeding from the tracheostomy site. HISTORY OF PRESENT ILLNESS: A 53-year-old female who was recently discharged on 02/26/2019 after being treated for sepsis, hyperglycemia, acute kidney injury, AFib, metabolic encephalopathy, sent from [facility] for persistent bleeding from tracheostomy site. The patient had a tracheostomy recently around 02/25/2019. The patient was sent back to the ER for persistent bleeding from the tracheostomy site. The patient is nonverbal. PAST MEDICAL HISTORY: Significant for insulin-dependent diabetes, cerebrovascular accident in the right MCA territory, atrial fibrillation, questionable lupus and thrombocytopenia. PAST SURGICAL HISTORY: Tracheostomy and PEG tube insertion recently. SOCIAL HISTORY: Does not smoke. No alcohol. The patient is in LTAC. FAMILY HISTORY: Hypertension. CURRENT MEDICATIONS: On chart. REVIEW OF SYSTEMS: Significant for persistent bleeding from tracheostomy site, controlled at the time of my examination. Otherwise, review of systems negative. PHYSICAL EXAMINATION: VITAL SIGNS: Blood pressure 140/81, respiratory rate is 16, sats 100%, temperature 98. HEENT: Unremarkable. NECK: Trach site, slight oozing of blood. LUNGS: Clear to auscultation and percussion. Good air entry. CARDIOVASCULAR: S1, S2 heard. No gallop, no murmur, no rub. Apical impulse in left fifth intercostal space in midclavicular line. ABDOMEN: Soft. PEG tube in place. EXTREMITIES: Good pedal pulses. No pedal edema. CENTRAL NERVOUS SYSTEM: Alert. The patient is nonverbal. LABORATORY DATA: Significant for initial hemoglobin of 8.1 and 24.2, which has dropped to 6.7 and 20.0. Electrolytes: Sodium is 152, BUN and creatinine is 84 and 0.8. AST is 49, total protein is 5.0, albumin is 2.0. ASSESSMENT AND PLAN: 1. Persistent bleeding from tracheostomy site. Surgery consulted for controlling the bleeding. Surgery consult appreciated. 2. Symptomatic anemia. The patient's blood count has dropped to 6.7 and 20.0, to be transfused 1 unit of blood. 3. Insulin-dependent diabetes. Continue insulin coverage. 4. Hypernatremia, half normal saline. 5. Acute kidney injury. BUN is 84. Prerenal failure. IV half normal saline for now. 6. Severe malnutrition. Albumin is 2.0. Dietitian consult requested. Possible discharge after the sodium and prerenal failure are corrected to some extent. CRITICAL CARE STATEMENT: The high probability of a clinically significant sudden or life-threatening deterioration of the pulmonary, cardiac, renal systems required my full and direct attention, intervention, and personal management. The aggregate critical care time was 35 minutes. This time is in addition to time spent performing reported procedures, but includes the followin. Data review and interpretation. 2. The patient assessment and monitoring of vital signs. 3. Documentation. 4. Medication orders and management. JOB# [id number] ED/YESICA DAVISON
[2019-03-01] MEDS ORDERED: SIMPLE SYRUP FEEDTUBE PRN ×2 (09:39)
[2019-03-01] MEDS ORDERED: PANCREAZE DR 10,500 UNIT FEEDTUBE PRN (09:39)
[2019-03-01] MEDS ORDERED: SODIUM BICARBONATE FEEDTUBE PRN (09:39)
[2019-03-01] MEDS: SODIUM CHLORIDE FLUSH SYRINGE 10 ML IV SCH ×2 (09:46→21:55)
[2019-03-01] MEDS: PREVACID SOLUTAB FEEDTUBE SCH ×2 (09:49→21:53)
[2019-03-01] MEDS: FOLVITE PO SCH (09:49)
[2019-03-01] MEDS: METAMUCIL PO SCH (09:49)
[2019-03-01] MEDS: predniSONE PO SCH (09:50)
--- NOTE | 2019-03-01 10:16 | Progress Note ---
Assessment and Plan 53 y/o female with bleeding from around trach site and thrombocytopenia and uremia. 1. No further DDAVP 2. Platelets not checked this am, but will order full CBC after blood transfusion 3. Transfuse 2 units of PRBC's, given BUN continues to rise 4. Continue vent support 5. Restart feeds and will add free water at [id number] 6. Follow surgery recs, if any new for today. Overall prognosis is guarded. CCt 31 minutes. Subjective Date of service: 03/01/19 Interval history: no acute events. HgB down to 7.5 today. Last reading was 9.0. Received 1 unit of blood here and 2 at the outside so a total of 3 in the last 48 hours. Objective Vital Signs - 12hr 02/28/19 02/28/19 02/28/19 22:21 22:29 22:30 Temperature Pulse Rate 94 H 91 H 91 H Pulse Rate [ Bilateral Throughout] Pulse Rate [ From Monitor] Respiratory 18 16 18 Rate Respiratory Rate [Bilateral Throughout] Blood Pressure 134/76 134/76 135/86 O2 Sat by Pulse 100 100 100 Oximetry O2 Sat by Pulse Oximetry [ Assessment] 02/28/19 02/28/19 02/28/19 22:41 22:51 23:00 Temperature Pulse Rate 89 85 85 Pulse Rate [ Bilateral Throughout] Pulse Rate [ From Monitor] Respiratory 16 16 16 Rate Respiratory Rate [Bilateral Throughout] Blood Pressure 135/86 127/79 138/79 O2 Sat by Pulse 100 100 100 Oximetry O2 Sat by Pulse Oximetry [ Assessment] 02/28/19 02/28/19 02/28/19 23:06 23:11 23:21 Temperature Pulse Rate 84 88 82 Pulse Rate [ Bilateral Throughout] Pulse Rate [ From Monitor] Respiratory 16 15 Rate Respiratory Rate [Bilateral Throughout] Blood Pressure 138/79 138/79 138/79 O2 Sat by Pulse 100 100 100 Oximetry O2 Sat by Pulse Oximetry [ Assessment] 02/28/19 02/28/19 02/28/19 23:30 23:41 23:51 Temperature Pulse Rate 84 93 H 86 Pulse Rate [ Bilateral Throughout] Pulse Rate [ From Monitor] Respiratory 16 19 16 Rate Respiratory Rate [Bilateral Throughout] Blood Pressure 134/75 134/75 123/78 O2 Sat by Pulse 100 100 100 Oximetry O2 Sat by Pulse Oximetry [ Assessment] 03/01/19 03/01/19 03/01/19 00:00 00:11 00:21 Temperature 98.4 F Pulse Rate 96 H 93 H 84 Pulse Rate [ Bilateral Throughout] Pulse Rate [ From Monitor] Respiratory 17 17 15 Rate Respiratory Rate [Bilateral Throughout] Blood Pressure 124/83 124/83 124/83 O2 Sat by Pulse 100 100 100 Oximetry O2 Sat by Pulse Oximetry [ Assessment] 03/01/19 03/01/19 03/01/19 00:30 00:41 00:51 Temperature Pulse Rate 91 H 83 83 Pulse Rate [ Bilateral Throughout] Pulse Rate [ From Monitor] Respiratory 17 16 16 Rate Respiratory Rate [Bilateral Throughout] Blood Pressure 139/88 139/88 145/82 O2 Sat by Pulse 100 100 100 Oximetry O2 Sat by Pulse Oximetry [ Assessment] 03/01/19 03/01/19 03/01/19 01:00 01:11 01:21 Temperature Pulse Rate 82 86 88 Pulse Rate [ Bilateral Throughout] Pulse Rate [ From Monitor] Respiratory 15 17 16 Rate Respiratory Rate [Bilateral Throughout] Blood Pressure 132/74 132/74 130/77 O2 Sat by Pulse 100 100 100 Oximetry O2 Sat by Pulse Oximetry [ Assessment] 03/01/19 03/01/19 03/01/19 01:30 01:41 01:51 Temperature Pulse Rate 83 96 H 89 Pulse Rate [ Bilateral Throughout] Pulse Rate [ From Monitor] Respiratory 16 18 17 Rate Respiratory Rate [Bilateral Throughout] Blood Pressure 122/75 122/75 147/90 O2 Sat by Pulse 100 100 100 Oximetry O2 Sat by Pulse Oximetry [ Assessment] 03/01/19 03/01/19 03/01/19 02:00 02:11 02:21 Temperature Pulse Rate 90 87 89 Pulse Rate [ Bilateral Throughout] Pulse Rate [ From Monitor] Respiratory 15 17 14 Rate Respiratory Rate [Bilateral Throughout] Blood Pressure 148/88 148/88 140/76 O2 Sat by Pulse 100 100 100 Oximetry O2 Sat by Pulse Oximetry [ Assessment] 03/01/19 03/01/19 03/01/19 02:30 02:41 02:47 Temperature Pulse Rate 96 H 92 H Pulse Rate [ 85 Bilateral Throughout] Pulse Rate [ From Monitor] Respiratory 14 14 Rate Respiratory 15 Rate [Bilateral Throughout] Blood Pressure 132/85 132/85 O2 Sat by Pulse 100 100 Oximetry O2 Sat by Pulse Oximetry [ Assessment] 03/01/19 03/01/19 03/01/19 02:51 03:00 03:11 Temperature Pulse Rate 83 84 80 Pulse Rate [ Bilateral Throughout] Pulse Rate [ From Monitor] Respiratory 15 16 17 Rate Respiratory Rate [Bilateral Throughout] Blood Pressure 149/83 149/90 149/90 O2 Sat by Pulse 100 95 100 Oximetry O2 Sat by Pulse Oximetry [ Assessment] 03/01/19 03/01/19 03/01/19 03:21 03:25 03:30 Temperature Pulse Rate 89 90 85 Pulse Rate [ Bilateral Throughout] Pulse Rate [ From Monitor] Respiratory 16 16 Rate Respiratory Rate [Bilateral Throughout] Blood Pressure 137/86 137/86 136/85 O2 Sat by Pulse 100 100 100 Oximetry O2 Sat by Pulse Oximetry [ Assessment] 03/01/19 03/01/19 03/01/19 03:41 03:51 04:00 Temperature 98.0 F Pulse Rate 87 96 H 92 H Pulse Rate [ Bilateral Throughout] Pulse Rate [ From Monitor] Respiratory 18 17 17 Rate Respiratory Rate [Bilateral Throughout] Blood Pressure 136/85 139/85 136/78 O2 Sat by Pulse 98 88 100 Oximetry O2 Sat by Pulse Oximetry [ Assessment] 03/01/19 03/01/19 03/01/19 04:11 04:20 04:30 Temperature Pulse Rate 84 78 82 Pulse Rate [ Bilateral Throughout] Pulse Rate [ From Monitor] Respiratory 16 17 13 Rate Respiratory Rate [Bilateral Throughout] Blood Pressure 136/78 141/78 136/87 O2 Sat by Pulse 99 Oximetry O2 Sat by Pulse Oximetry [ Assessment] 03/01/19 03/01/19 03/01/19 04:41 04:50 04:51 Temperature Pulse Rate 89 100 H Pulse Rate [ Bilateral Throughout] Pulse Rate [ From Monitor] Respiratory 18 15 Rate Respiratory Rate [Bilateral Throughout] Blood Pressure 141/78 131/83 O2 Sat by Pulse 99 97 Oximetry O2 Sat by Pulse 100 Oximetry [ Assessment] 03/01/19 03/01/19 03/01/19 05:00 05:11 05:21 Temperature Pulse Rate 86 91 H 87 Pulse Rate [ Bilateral Throughout] Pulse Rate [ From Monitor] Respiratory 16 17 13 Rate Respiratory Rate [Bilateral Throughout] Blood Pressure 130/84 130/84 125/92 O2 Sat by Pulse 100 97 98 Oximetry O2 Sat by Pulse Oximetry [ Assessment] 03/01/19 03/01/19 03/01/19 05:30 05:41 05:51 Temperature Pulse Rate 85 79 87 Pulse Rate [ Bilateral Throughout] Pulse Rate [ From Monitor] Respiratory 16 17 16 Rate Respiratory Rate [Bilateral Throughout] Blood Pressure 140/81 140/81 140/81 O2 Sat by Pulse 100 98 100 Oximetry O2 Sat by Pulse Oximetry [ Assessment] 03/01/19 03/01/19 03/01/19 06:00 06:11 06:21 Temperature Pulse Rate 72 71 74 Pulse Rate [ Bilateral Throughout] Pulse Rate [ From Monitor] Respiratory 15 15 16 Rate Respiratory Rate [Bilateral Throughout] Blood Pressure 136/85 136/85 124/88 O2 Sat by Pulse 97 93 95 Oximetry O2 Sat by Pulse Oximetry [ Assessment] 03/01/19 03/01/19 03/01/19 06:31 06:41 06:51 Temperature Pulse Rate 73 71 78 Pulse Rate [ Bilateral Throughout] Pulse Rate [ From Monitor] Respiratory 15 15 15 Rate Respiratory Rate [Bilateral Throughout] Blood Pressure 147/77 147/77 149/83 O2 Sat by Pulse 98 99 97 Oximetry O2 Sat by Pulse Oximetry [ Assessment] 03/01/19 03/01/19 03/01/19 06:52 07:00 07:11 Temperature Pulse Rate 79 65 66 Pulse Rate [ Bilateral Throughout] Pulse Rate [ From Monitor] Respiratory 15 16 Rate Respiratory Rate [Bilateral Throughout] Blood Pressure 149/83 153/78 153/78 O2 Sat by Pulse 100 100 Oximetry O2 Sat by Pulse Oximetry [ Assessment] 03/01/19 03/01/19 03/01/19 07:21 07:30 07:41 Temperature Pulse Rate 73 62 70 Pulse Rate [ Bilateral Throughout] Pulse Rate [ From Monitor] Respiratory 16 15 15 Rate Respiratory Rate [Bilateral Throughout] Blood Pressure 145/80 142/86 142/86 O2 Sat by Pulse 100 100 100 Oximetry O2 Sat by Pulse Oximetry [ Assessment] 03/01/19 03/01/19 07:51 08:00 Temperature 97.4 F L Pulse Rate 62 74 Pulse Rate [ 64 Bilateral Throughout] Pulse Rate [ 76 From Monitor] Respiratory 15 16 Rate Respiratory 14 Rate [Bilateral Throughout] Blood Pressure 143/65 148/77 O2 Sat by Pulse 100 100 Oximetry O2 Sat by Pulse Oximetry [ Assessment] Constitutional: no acute distress, alert ENT: other (old blood seen around trach site, mouth and nose) Neck: other (trach present and midline, old blood present around trach) Effort: normal Ascultation: Bilateral: clear Percussion: Bilateral: not dull Tactile fremitus: Bilateral: normal Cardiovascular: other (sinus tach) Gastrointestinal: normoactive bowel sounds, soft Extremities: no cyanosis, no edema, pulses normal Neurologic: normal mental status CBC and BMP: 03/01/19 05:49 03/01/19 05:49 ABG, PT/INR, D-dimer: ABG POC ABG pH 7.358 (7.35-7.45) 03/01/19 03:34 POC ABG pCO2 38.3 (35-45) 03/01/19 03:34 POC ABG pO2 198 (80-105) H 03/01/19 03:34 POC ABG HCO3 21.6 (22-26 mml/L) 03/01/19 03:34 POC ABG Total CO2 23 (23-27mmol/L) 03/01/19 03:34 POC ABG O2 Sat 100 03/01/19 03:34 PT/INR, D-dimer PT 16.2 Sec. (12.2-14.9) H 02/28/19 10:18 INR 1.34 (0.87-1.13) H 02/28/19 10:18 Abnormal lab findings: Abnormal Labs 02/28/19 02/28/19 02/28/19 10:18 10:18 10:18 WBC 4.2 L RBC 2.62 L Hgb 8.1 L Hct 24.2 L Plt Count 106 L Seg Neuts % (Manual) 86.0 H Lymphocytes % (Manual) 7.0 L Lymphocytes # (Manual) 0.3 L PT 16.2 H INR 1.34 H POC ABG pCO2 POC ABG pO2 Sodium 152 H Chloride 117.6 H BUN 84 H Glucose 130 H Calcium 7.8 L AST 49 H Total Protein 5.0 L Albumin 2.0 L Crossmatch 02/28/19 02/28/19 02/28/19 10:18 15:11 15:58 WBC RBC Hgb 6.7 L Hct 20.0 L Plt Count Seg Neuts % (Manual) Lymphocytes % (Manual) Lymphocytes # (Manual) PT INR POC ABG pCO2 33.9 L POC ABG pO2 Sodium Chloride BUN Glucose Calcium AST Total Protein Albumin Crossmatch See Detail 02/28/19 03/01/1903/01/19 22:34 03:34 05:49 WBC RBC Hgb 9.0 L Hct 26.8 L D Plt Count Seg Neuts % (Manual) Lymphocytes % (Manual) Lymphocytes # (Manual) PT INR POC ABG pCO2 POC ABG pO2 198 H Sodium 152 H Chloride 119.4 H BUN 95 H Glucose Calcium 7.7 L AST 49 H Total Protein 5.0 L Albumin 1.8 L Crossmatch 03/01/19 05:49 WBC RBC Hgb 7.5 L Hct 22.5 L Plt Count Seg Neuts % (Manual) Lymphocytes % (Manual) Lymphocytes # (Manual) PT INR POC ABG pCO2 POC ABG pO2 Sodium Chloride BUN Glucose Calcium AST Total Protein Albumin Crossmatch
--- NOTE | 2019-03-01 11:00 | Progress Note ---
Assessment and Plan 53 yo F with bleeding from tracheostomy site, resolved No further bleeding from tracheostomy site. Pt saturating well on vent. Tachycardia has resolved. Plan: 1. Trach dressing changed - no active bleeding. Will reexamine tomorrow 2. patient saturating well on vent with satisfactory tidal volumes - continue vent management per pulm team 3. transfuse prbc as needed and trend Hb - Hb responded appropriately to 1 Unit PRBC given yesterday 4. may restart TF 5. Per ambulatory orders written on discharge, patient was placed on eliquis on 02/26/19. I am not sure why she is on eliquis. Please hold all blood thinners as this may be contributing to bleeding Discussed with patient's mother and RN Thank you, please call with questions Subjective Date of service: 03/01/19 Narrative: Pt seen and examined. No complaints. Denies pain. No bleeding from the tracheostomy site overnight. Objective Vital Signs - 12hr 02/28/19 02/28/19 02/28/19 23:00 23:06 23:11 Temperature Pulse Rate 85 84 88 Pulse Rate [ Bilateral Throughout] Pulse Rate [ From Monitor] Respiratory 16 16 Rate Respiratory Rate [Bilateral Throughout] Blood Pressure 138/79 138/79 138/79 O2 Sat by Pulse 100 100 100 Oximetry O2 Sat by Pulse Oximetry [ Assessment] 02/28/19 02/28/19 02/28/19 23:21 23:30 23:41 Temperature Pulse Rate 82 84 93 H Pulse Rate [ Bilateral Throughout] Pulse Rate [ From Monitor] Respiratory 15 16 19 Rate Respiratory Rate [Bilateral Throughout] Blood Pressure 138/79 134/75 134/75 O2 Sat by Pulse 100 100 100 Oximetry O2 Sat by Pulse Oximetry [ Assessment] 02/28/19 03/01/19 03/01/19 23:51 00:00 00:11 Temperature 98.4 F Pulse Rate 86 96 H 93 H Pulse Rate [ Bilateral Throughout] Pulse Rate [ From Monitor] Respiratory 16 17 17 Rate Respiratory Rate [Bilateral Throughout] Blood Pressure 123/78 124/83 124/83 O2 Sat by Pulse 100 100 100 Oximetry O2 Sat by Pulse Oximetry [ Assessment] 03/01/19 03/01/19 03/01/19 00:21 00:30 00:41 Temperature Pulse Rate 84 91 H 83 Pulse Rate [ Bilateral Throughout] Pulse Rate [ From Monitor] Respiratory 15 17 16 Rate Respiratory Rate [Bilateral Throughout] Blood Pressure 124/83 139/88 139/88 O2 Sat by Pulse 100 100 100 Oximetry O2 Sat by Pulse Oximetry [ Assessment] 03/01/19 03/01/19 03/01/19 00:51 01:00 01:11 Temperature Pulse Rate 83 82 86 Pulse Rate [ Bilateral Throughout] Pulse Rate [ From Monitor] Respiratory 16 15 17 Rate Respiratory Rate [Bilateral Throughout] Blood Pressure 145/82 132/74 132/74 O2 Sat by Pulse 100 100 100 Oximetry O2 Sat by Pulse Oximetry [ Assessment] 03/01/19 03/01/19 03/01/19 01:21 01:30 01:41 Temperature Pulse Rate 88 83 96 H Pulse Rate [ Bilateral Throughout] Pulse Rate [ From Monitor] Respiratory 16 16 18 Rate Respiratory Rate [Bilateral Throughout] Blood Pressure 130/77 122/75 122/75 O2 Sat by Pulse 100 100 100 Oximetry O2 Sat by Pulse Oximetry [ Assessment] 03/01/19 03/01/19 03/01/19 01:51 02:00 02:11 Temperature Pulse Rate 89 90 87 Pulse Rate [ Bilateral Throughout] Pulse Rate [ From Monitor] Respiratory 17 15 17 Rate Respiratory Rate [Bilateral Throughout] Blood Pressure 147/90 148/88 148/88 O2 Sat by Pulse 100 100 100 Oximetry O2 Sat by Pulse Oximetry [ Assessment] 03/01/19 03/01/19 03/01/19 02:21 02:30 02:41 Temperature Pulse Rate 89 96 H 92 H Pulse Rate [ Bilateral Throughout] Pulse Rate [ From Monitor] Respiratory 14 14 14 Rate Respiratory Rate [Bilateral Throughout] Blood Pressure 140/76 132/85 132/85 O2 Sat by Pulse 100 100 100 Oximetry O2 Sat by Pulse Oximetry [ Assessment] 03/01/19 03/01/19 03/01/19 02:47 02:51 03:00 Temperature Pulse Rate 83 84 Pulse Rate [ 85 Bilateral Throughout] Pulse Rate [ From Monitor] Respiratory 15 16 Rate Respiratory 15 Rate [Bilateral Throughout] Blood Pressure 149/83 149/90 O2 Sat by Pulse 100 95 Oximetry O2 Sat by Pulse Oximetry [ Assessment] 03/01/19 03/01/19 03/01/19 03:11 03:21 03:25 Temperature Pulse Rate 80 89 90 Pulse Rate [ Bilateral Throughout] Pulse Rate [ From Monitor] Respiratory 17 16 Rate Respiratory Rate [Bilateral Throughout] Blood Pressure 149/90 137/86 137/86 O2 Sat by Pulse 100 100 100 Oximetry O2 Sat by Pulse Oximetry [ Assessment] 03/01/19 03/01/19 03/01/19 03:30 03:41 03:51 Temperature Pulse Rate 85 87 96 H Pulse Rate [ Bilateral Throughout] Pulse Rate [ From Monitor] Respiratory 16 18 17 Rate Respiratory Rate [Bilateral Throughout] Blood Pressure 136/85 136/85 139/85 O2 Sat by Pulse 100 98 88 Oximetry O2 Sat by Pulse Oximetry [ Assessment] 03/01/19 03/01/19 03/01/19 04:00 04:11 04:20 Temperature 98.0 F Pulse Rate 92 H 84 78 Pulse Rate [ Bilateral Throughout] Pulse Rate [ From Monitor] Respiratory 17 16 17 Rate Respiratory Rate [Bilateral Throughout] Blood Pressure 136/78 136/78 141/78 O2 Sat by Pulse 100 Oximetry O2 Sat by Pulse Oximetry [ Assessment] 03/01/19 03/01/19 03/01/19 04:30 04:41 04:50 Temperature Pulse Rate 82 89 Pulse Rate [ Bilateral Throughout] Pulse Rate [ From Monitor] Respiratory 13 18 Rate Respiratory Rate [Bilateral Throughout] Blood Pressure 136/87 141/78 O2 Sat by Pulse 99 99 Oximetry O2 Sat by Pulse 100 Oximetry [ Assessment] 03/01/19 03/01/19 03/01/19 04:51 05:00 05:11 Temperature Pulse Rate 100 H 86 91 H Pulse Rate [ Bilateral Throughout] Pulse Rate [ From Monitor] Respiratory 15 16 17 Rate Respiratory Rate [Bilateral Throughout] Blood Pressure 131/83 130/84 130/84 O2 Sat by Pulse 97 100 97 Oximetry O2 Sat by Pulse Oximetry [ Assessment] 03/01/19 03/01/19 03/01/19 05:21 05:30 05:41 Temperature Pulse Rate 87 85 79 Pulse Rate [ Bilateral Throughout] Pulse Rate [ From Monitor] Respiratory 13 16 17 Rate Respiratory Rate [Bilateral Throughout] Blood Pressure 125/92 140/81 140/81 O2 Sat by Pulse 98 100 98 Oximetry O2 Sat by Pulse Oximetry [ Assessment] 03/01/19 03/01/19 03/01/19 05:51 06:00 06:11 Temperature Pulse Rate 87 72 71 Pulse Rate [ Bilateral Throughout] Pulse Rate [ From Monitor] Respiratory 16 15 15 Rate Respiratory Rate [Bilateral Throughout] Blood Pressure 140/81 136/85 136/85 O2 Sat by Pulse 100 97 93 Oximetry O2 Sat by Pulse Oximetry [ Assessment] 03/01/19 03/01/19 03/01/19 06:21 06:31 06:41 Temperature Pulse Rate 74 73 71 Pulse Rate [ Bilateral Throughout] Pulse Rate [ From Monitor] Respiratory 16 15 15 Rate Respiratory Rate [Bilateral Throughout] Blood Pressure 124/88 147/77 147/77 O2 Sat by Pulse 95 98 99 Oximetry O2 Sat by Pulse Oximetry [ Assessment] 03/01/19 03/01/19 03/01/19 06:51 06:52 07:00 Temperature Pulse Rate 78 79 65 Pulse Rate [ Bilateral Throughout] Pulse Rate [ From Monitor] Respiratory 15 15 Rate Respiratory Rate [Bilateral Throughout] Blood Pressure 149/83 149/83 153/78 O2 Sat by Pulse 97 100 Oximetry O2 Sat by Pulse Oximetry [ Assessment] 03/01/19 03/01/19 03/01/19 07:11 07:21 07:30 Temperature Pulse Rate 66 73 62 Pulse Rate [ Bilateral Throughout] Pulse Rate [ From Monitor] Respiratory 16 16 15 Rate Respiratory Rate [Bilateral Throughout] Blood Pressure 153/78 145/80 142/86 O2 Sat by Pulse 100 100 100 Oximetry O2 Sat by Pulse Oximetry [ Assessment] 03/01/19 03/01/19 03/01/19 07:41 07:51 08:00 Temperature 97.4 F L Pulse Rate 70 62 74 Pulse Rate [ 64 Bilateral Throughout] Pulse Rate [ 76 From Monitor] Respiratory 15 15 16 Rate Respiratory 14 Rate [Bilateral Throughout] Blood Pressure 142/86 143/65 148/77 O2 Sat by Pulse 100 100 100 Oximetry O2 Sat by Pulse Oximetry [ Assessment] 03/01/19 03/01/19 03/01/19 08:11 08:21 08:30 Temperature Pulse Rate 61 75 73 Pulse Rate [ Bilateral Throughout] Pulse Rate [ From Monitor] Respiratory 14 14 15 Rate Respiratory Rate [Bilateral Throughout] Blood Pressure 141/69 148/77 137/74 O2 Sat by Pulse 100 100 100 Oximetry O2 Sat by Pulse Oximetry [ Assessment] 03/01/19 03/01/19 03/01/19 08:41 08:51 09:00 Temperature Pulse Rate 74 73 72 Pulse Rate [ Bilateral Throughout] Pulse Rate [ From Monitor] Respiratory 16 18 18 Rate Respiratory Rate [Bilateral Throughout] Blood Pressure 137/74 155/84 147/74 O2 Sat by Pulse 100 100 100 Oximetry O2 Sat by Pulse Oximetry [ Assessment] 03/01/19 03/01/19 03/01/19 09:11 09:21 09:30 Temperature Pulse Rate 70 64 62 Pulse Rate [ Bilateral Throughout] Pulse Rate [ From Monitor] Respiratory 17 16 16 Rate Respiratory Rate [Bilateral Throughout] Blood Pressure 147/74 147/74 137/70 O2 Sat by Pulse 100 100 100 Oximetry O2 Sat by Pulse Oximetry [ Assessment] 03/01/19 03/01/19 03/01/19 09:41 09:51 10:00 Temperature Pulse Rate 70 59 L 56 L Pulse Rate [ Bilateral Throughout] Pulse Rate [ 68 From Monitor] Respiratory 15 15 14 Rate Respiratory Rate [Bilateral Throughout] Blood Pressure 137/70 140/67 140/63 O2 Sat by Pulse 100 100 100 Oximetry O2 Sat by Pulse Oximetry [ Assessment] - General physical appearance Narrative Exam: Gen; Awake and alert. NAD ENT; Trach site clean and dry. All dressings removed. No bleeding from wound. Clean 4x4 gauze placed around tracheostomy CV; s1, S2+ Resp: on vent Abd: soft, NT, ND. PEG in place, site c/d/i Ext: no c/c/e - Labs 03/01/19 05:49 03/01/19 05:49 Diabetes panel 02/28/19 03/01/19 Range/Units 22:34 05:49 Sodium 152 H (137-145) mmol/L Potassium 4.9 (3.6-5.0) mmol/L Chloride 119.4 H (98-107) mmol/L Carbon Dioxide 22 (22-30) mmol/L BUN 95 H (7-17) mg/dL Creatinine 1.0 (0.7-1.2) mg/dL Glucose 93 (65-100) mg/dL Hemoglobin A1c 5.8 (4-6) % Calcium 7.7 L (8.4-10.2) mg/dL AST 49 H (5-40) units/L ALT 16 (7-56) units/L Alkaline Phosphatase 77 (35-129) units/L Total Protein 5.0 L (6.3-8.2) g/dL Albumin 1.8 L (3.9-5) g/dL Calcium panel 03/01/19 Range/Units 05:49 Calcium 7.7 L (8.4-10.2) mg/dL Albumin 1.8 L (3.9-5) g/dL Pituitary panel 03/01/19 Range/Units 05:49 Sodium 152 H (137-145) mmol/L Potassium 4.9 (3.6-5.0) mmol/L Chloride 119.4 H (98-107) mmol/L Carbon Dioxide 22 (22-30) mmol/L BUN 95 H (7-17) mg/dL Creatinine 1.0 (0.7-1.2) mg/dL Glucose 93 (65-100) mg/dL Calcium 7.7 L (8.4-10.2) mg/dL Adrenal panel 03/01/19 Range/Units 05:49 Sodium 152 H (137-145) mmol/L Potassium 4.9 (3.6-5.0) mmol/L Chloride 119.4 H (98-107) mmol/L Carbon Dioxide 22 (22-30) mmol/L BUN 95 H (7-17) mg/dL Creatinine 1.0 (0.7-1.2) mg/dL Glucose 93 (65-100) mg/dL Calcium 7.7 L (8.4-10.2) mg/dL Total Bilirubin 0.50 (0.1-1.2) mg/dL AST 49 H (5-40) units/L ALT 16 (7-56) units/L Alkaline Phosphatase 77 (35-129) units/L Total Protein 5.0 L (6.3-8.2) g/dL Albumin 1.8 L (3.9-5) g/dL
[2019-03-01] MEDS ORDERED: NACL 0.9% 500 ML 500 ML IV ONE (12:00)
[2019-03-01] MEDS ORDERED: NACL 0.9% 500 ML 500 ML IV SCH (17:30)
[2019-03-01] MEDS ORDERED: NACL 0.9% 500 ML 500 ML ONE (17:32)
--- NOTE | 2019-03-01 20:11 | Progress Note ---
Assessment and Plan Assessment and plan: --Bleeding from tracheostomy site; on ventilatory support Surgeon evaluated the patient, bleeding controlled continue supportive care --Symptomatic anemia; requiring blood transfusion, received 2 units Mild drop in hemoglobin, transfuse additional unit of PRBC today Closely monitor H&H additional transfusion as needed --Severe malnutrition;hypoalbuminemia nutrition supplements and supportive care, Nutrition consult --Type 2 diabetes mellitus; check sliding scale coverage and ADA diet and insulin as needed --Hypernatremia; free water flushes, Closely monitor electrolytes --History of atrial fibrillation; rate controlled Continue current medications --Chronic anticoagulation: with Eliquis Eliquis is held because of bleeding. Consult cardiology --DVT prophylaxis; SCDs Critical care time 33 minutes History Interval history: Patient seen and examined medical records reviewed No new overnight events reported by the nursing No new complaints, no bleeding noted from the tracheostomy site On ventilatory support Vital signs noted Hospitalist Physical - Constitutional Vitals: Temp Pulse Resp BP Pulse Ox 98.1 F 83 21 156/80 100 03/01/19 17:45 03/01/19 19:44 03/01/19 19:44 03/01/19 19:37 03/01/19 19:37 General appearance: Present: no acute distress, well-nourished, other ( tracheostomy on vent) - EENT Eyes: Present: PERRL, EOM intact - Neck Neck: Present: supple, normal ROM - Respiratory Respiratory effort: normal Respiratory: bilateral: diminished, rhonchi, negative: rales, wheezing - Cardiovascular Rhythm: regular Heart Sounds: Present: S1 & S2 - Extremities Extremities: no ischemia, No edema - Abdominal General gastrointestinal: soft, non-tender, non-distended, normal bowel sounds - Integumentary Integumentary: Present: clear, warm - Psychiatric Psychiatric: appropriate mood/affect, other (on vent) - Neurologic Neurologic: other (tracheostomy on vent) Results - Labs CBC & Chem 7: 03/02/19 05:43 03/01/19 05:49 Labs: Laboratory Last Values WBC 4.2 K/mm3 (4.5-11.0) L 02/28/19 10:18 RBC 2.62 M/mm3 (3.65-5.03) L 02/28/19 10:18 Hgb 7.5 gm/dl (10.1-14.3) L 03/01/19 05:49 Hct 22.5 % (30.3-42.9) L 03/01/19 05:49 MCV 93 fl (79-97) 02/28/19 10:18 MCH 31 pg (28-32) 02/28/19 10:18 MCHC 33 % (30-34) 02/28/19 10:18 RDW 15.2 % (13.2-15.2) 02/28/19 10:18 Plt Count 106 K/mm3 (140-440) L 02/28/19 10:18 Add Manual Diff Complete 02/28/19 10:18 Total Counted 100 02/28/19 10:18 Seg Neuts % (Manual) 86.0 % (40.0-70.0) H 02/28/19 10:18 4.0 % 02/28/19 10:18 7.0 % (13.4-35.0) L 02/28/19 10:18 Reactive Lymphs % (Man) 1.0 % 02/28/19 10:18 2.0 % (0.0-7.3) 02/28/19 10:18 0 % (0.0-4.3) 02/28/19 10:18 0 % (0.0-1.8) 02/28/19 10:18 0 % 02/28/19 10:18 0 % 02/28/19 10:18 0 % 02/28/19 10:18 0 % 02/28/19 10:18 Nucleated RBC % Not Reportable 02/28/19 10:18 Seg Neutrophils # Man 3.6 K/mm3 (1.8-7.7) 02/28/19 10:18 Band Neutrophils # 0.2 K/mm3 02/28/19 10:18 0.3 K/mm3 (1.2-5.4) L 02/28/19 10:18 Abs React Lymphs (Man) 0.0 K/mm3 02/28/19 10:18 0.1 K/mm3 (0.0-0.8) 02/28/19 10:18 0.0 K/mm3 (0.0-0.4) 02/28/19 10:18 0.0 K/mm3 (0.0-0.1) 02/28/19 10:18 0.0 K/mm3 02/28/19 10:18 0.0 K/mm3 02/28/19 10:18 0.0 K/mm3 02/28/19 10:18 Blast Cells # 0.0 K/mm3 02/28/19 10:18 WBC Morphology Not Reportable 02/28/19 10:18 Hypersegmented Neuts Not Reportable 02/28/19 10:18 Hyposegmented Neuts Not Reportable 02/28/19 10:18 Hypogranular Neuts Not Reportable 02/28/19 10:18 Not Reportable 02/28/19 10:18 Not Reportable 02/28/19 10:18 Not Reportable 02/28/19 10:18 Not Reportable 02/28/19 10:18 Not Reportable 02/28/19 10:18 Not Reportable 02/28/19 10:18 Consistent w auto 02/28/19 10:18 Not Reportable 02/28/19 10:18 Plt Clumps, EDTA Not Reportable 02/28/19 10:18 Not Reportable 02/28/19 10:18 Not Reportable 02/28/19 10:18 Not Reportable 02/28/19 10:18 Plt Morphology Comment Not Reportable 02/28/19 10:18 RBC Morphology Not Reportable 02/28/19 10:18 Dimorphic RBCs Not Reportable 02/28/19 10:18 Not Reportable 02/28/19 10:18 Few 02/28/19 10:18 Not Reportable 02/28/19 10:18 Few 02/28/19 10:18 Few 02/28/19 10:18 Few 02/28/19 10:18 Not Reportable 02/28/19 10:18 Not Reportable 02/28/19 10:18 Not Reportable 02/28/19 10:18 Not Reportable 02/28/19 10:18 Not Reportable 02/28/19 10:18 Not Reportable 02/28/19 10:18 Not Reportable 02/28/19 10:18 Not Reportable 02/28/19 10:18 Not Reportable 02/28/19 10:18 Not Reportable 02/28/19 10:18 Not Reportable 02/28/19 10:18 Not Reportable 02/28/19 10:18 Not Reportable 02/28/19 10:18 Acanthocytes (Spur) Not Reportable 02/28/19 10:18 Rouleaux Not Reportable 02/28/19 10:18 Not Reportable 02/28/19 10:18 Not Reportable 02/28/19 10:18 Not Reportable 02/28/19 10:18 Not Reportable 02/28/19 10:18 Hem Pathologist Commnt No 02/28/19 10:18 PT 16.2 Sec. (12.2-14.9) H 02/28/19 10:18 INR 1.34 (0.87-1.13) H 02/28/19 10:18 APTT 29.9 Sec. (24.2-36.6) 02/28/19 10:18 POC ABG pH 7.358 (7.35-7.45) 03/01/19 03:34 POC ABG pCO2 38.3 (35-45) 03/01/19 03:34 POC ABG pO2 198 (80-105) H 03/01/19 03:34 POC ABG HCO3 21.6 (22-26 mml/L) 03/01/19 03:34 POC ABG Total CO2 23 (23-27mmol/L) 03/01/19 03:34 POC ABG O2 Sat 100 03/01/19 03:34 POC ABG Base Excess -4 ((-2) - (+3)mmol/L) 03/01/19 03:34 40 % 03/01/19 03:34 Sodium 152 mmol/L (137-145) H 03/01/19 05:49 Potassium 4.9 mmol/L (3.6-5.0) 03/01/19 05:49 Chloride 119.4 mmol/L (98-107) H 03/01/19 05:49 Carbon Dioxide 22 mmol/L (22-30) 03/01/19 05:49 16 mmol/L 03/01/19 05:49 BUN 95 mg/dL (7-17) H 03/01/19 05:49 1.0 mg/dL (0.7-1.2) 03/01/19 05:49 Estimated GFR > 60 ml/min 03/01/19 05:49 95 % 03/01/19 05:49 Glucose 93 mg/dL (65-100) 03/01/19 05:49 POC Glucose 97 (70-105) 03/01/19 16:36 5.8 % (4-6) 02/28/19 22:34 Calcium 7.7 mg/dL (8.4-10.2) L 03/01/19 05:49 0.50 mg/dL (0.1-1.2) 03/01/19 05:49 AST 49 units/L (5-40) H 03/01/19 05:49 ALT 16 units/L (7-56) 03/01/19 05:49 77 units/L (35-129) 03/01/19 05:49 5.0 g/dL (6.3-8.2) L 03/01/19 05:49 1.8 g/dL (3.9-5) L 03/01/19 05:49 0.6 % 03/01/19 05:49 Blood Type B POSITIVE 02/28/19 10:18 Antibody Screen Negative 02/28/19 10:18 Crossmatch See Detail 02/28/19 10:18 Active Medications - Current Medications Current Medications: Generic Name Dose Route Start Last Admin Trade Name Freq PRN Reason Stop Dose Admin Acetaminophen 650 mg 03/01/19 07:00 Tylenol PO Q4H PRN Pain MILD(1-3)/Fever >100.5/VALENZUELA Albuterol/Ipratropium 1 ampul 03/01/19 02:00 03/01/19 19:33 Duoneb *Not For Prn Use* IH 1 ampul Q6HRT AMOL Administration Lipase/Protease/Amylase 1 each 02/28/19 21:47 Pancreaze 10,500 Unit FEEDTUBE PRN PRN For Clogged Feeding Tube Dextrose 50 ml 02/28/19 22:42 D50w (25gm) Syringe IV PRN PRN Hypoglycemia Diltiazem HCl 60 mg 03/01/19 07:00 03/01/19 13:42 Cardizem PO 60 mg Q6HR AMOL Administration Folic Acid 1 mg 03/01/19 10:00 03/01/19 09:49 Folvite PO 1 mg QDAY AMOL Administration Hydromorphone HCl 0.25 mg 02/28/19 21:47 Dilaudid IV Q3H PRN Pain, Moderate (4-6) Sodium Chloride 500 mls @ 120 mls/hr 03/01/19 17:30 03/01/19 17:30 Nacl 0.9% 500 Ml IV 03/02/19 06:00 120 mls/hr ONCE AMOL Administration Insulin Glargine 15 units 03/01/19 22:00 Lantus SUB-Q QHS MAOL Insulin Human Regular 0 units 03/01/19 00:00 03/01/19 13:44 Humulin R SUB-Q Not Given Q6HR [facility] Protocol Lansoprazole 30 mg 03/01/19 10:00 03/01/19 09:49 Prevacid Solutab FEEDTUBE 30 mg BID AMOL Administration Levothyroxine Sodium 125 mcg 03/01/19 06:00 03/01/19 06:51 Synthroid PO 125 mcg QAM@0600 AMOL Administration Lorazepam 1 mg 03/01/19 06:40 Ativan IV Q6H PRN Agitation Ondansetron HCl 4 mg 02/28/19 21:47 Zofran IV Q8H PRN Nausea And Vomiting Oxycodone/Acetaminophen 1 tab 03/01/19 06:40 Percocet 5/325 FEEDTUBE Q6H PRN Pain, Moderate (4-6) Prednisone 20 mg 03/01/19 10:00 03/01/19 09:50 Prednisone PO 20 mg QDAY AMOL Administration Psyllium Hydrophilic Mucilloid 1 each 03/01/19 10:00 03/01/19 09:49 Metamucil PO 1 each QDAY AMOL Administration Simple Syrup 15 ml 02/28/19 21:47 Simple Syrup FEEDTUBE PRN PRN Hypoglycemia Simple Syrup 30 ml 02/28/19 21:47 Simple Syrup FEEDTUBE PRN PRN Hypoglycemia Sodium Bicarbonate 325 mg 02/28/19 21:47 Sodium Bicarbonate FEEDTUBE PRN PRN For Clogged Feeding Tube Sodium Chloride 10 ml 02/28/19 22:00 03/01/19 09:46 Sodium Chloride Flush Syringe 10 Ml IV 10 ml BID AMOL Administration Sodium Chloride 10 ml 02/28/19 21:47 Sodium Chloride Flush Syringe 10 Ml IV PRN PRN LINE FLUSH Nutrition/Malnutrition Assess - Dietary Evaluation Nutrition/Malnutrition Findings: Nutrition Notes Start: 03/01/19 08:06 Freq: Status: Active Protocol: Document 03/01/19 08:06 LM (Rec: 03/01/19 08:18 LM [email or web address]) Nutrition Notes Need for Assessment generated from: MD Order,MST Initial or Follow up Assessment Current Diagnosis Diabetes,Sepsis,Stroke Other Pertinent Diagnosis Pneumonia, AMS, s/p trach and PEG, trach bleeding Current Diet NPO Labs/Tests Na 152 BUN 95 Pertinent Medications Reviewed Height 5 ft 7 in Weight 81.6 kg [place] Body Weight (kg) 61.36 BMI 28.1 Weight Status Overweight Subjective/Other Information MD consult for TF. RN screen for MST and difficulty chewing . Pt is on the vent. Unable to speak to pt. Pt has PEG. Burn Absent Trauma Absent Minimum of two criteria No #1 Nutrition Diagnosis Inadequate oral intake Etiology Mechanical vent As Evidenced by Signs and Symptoms Pt NPO Is patient on ventilator? Yes Is Patient Ambulatory and/or Out of Bed No REE-([facility]-confined to bed) 0832.991 Calculation Used for Recommendations [facility] Additional Notes Protein: 97-163g (1.2-2g/kg) Fluid: 1 ml/kcal Nutrition Intervention Change Diet Order: TF Nutrition Support: Promote 1.0 at 70 ml/hr Flush 50 ml q4hr Kcal 1,680 Protein (gm) 105 Fluid (mL) 1,410 Goal #1 Start TF Goal #2 Meet at least 75% of energy and protein needs Anticipated Discharge Needs: TF Follow-Up By: 03/02/19 Additional Comments F/U for TF start/tolerance
[2019-03-01] MEDS: PERCOCET 5/325 FEEDTUBE PRN (21:53)
[2019-03-01] MEDS: LANTUS SUB-Q SCH (21:55)
[2019-03-02] MEDS: CARDIZEM PO SCH ×5 (00:30→19:47)
[2019-03-02] MEDS: DUONEB *Not for PRN Use IH SCH ×4 (02:30→20:04)
[2019-03-02] MEDS: HumuLIN R SUB-Q SCH ×5 (06:17→19:48)
[2019-03-02] MEDS: SYNTHROID PO SCH (06:27)
[2019-03-02 06:31] LABS: Hematocrit 28.4 % (30.3-42.9); Hemoglobin 9.8 gm/dl (10.1-14.3); Mean Corpuscular HGB Conc 34 % (30-34); Mean Corpuscular Volume 90 fl (79-97); Red Blood Count 3.17 M/mm3 (3.65-5.03); Red Cell Distribution Width 15.7 % (13.2-15.2)
[2019-03-02] MEDS: predniSONE PO SCH (09:08)
[2019-03-02] MEDS: PREVACID SOLUTAB FEEDTUBE SCH ×2 (09:08→21:35)
[2019-03-02] MEDS: SODIUM CHLORIDE FLUSH SYRINGE 10 ML IV SCH ×2 (09:08→21:36)
[2019-03-02] MEDS: FOLVITE PO SCH (09:08)
[2019-03-02] MEDS: METAMUCIL PO SCH (09:09)
[2019-03-02 09:34] LABS: Platelet Count 120 K/mm3 (140-440)
[2019-03-02 09:43] LABS: Basophils % (Manual) 0 % (0.0-1.8); Total Cells Counted 100
[2019-03-02 09:56] LABS: Anisocytosis Few
[2019-03-02 09:57] LABS: Platelet Estimate Consistent w Auto; Poikilocytosis Few
--- NOTE | 2019-03-02 10:00 | Progress Note ---
Assessment and Plan Assessment and plan: --Bleeding from tracheostomy site; on ventilatory support Surgeon evaluated the patient, bleeding controlled Pulmonary critical following --Symptomatic anemia; requiring blood transfusion, received 3 units Hemoglobin 9.2, closely monitor H&H --Severe malnutrition;hypoalbuminemia nutrition supplements and supportive care, Nutrition consult --Type 2 diabetes mellitus; check sliding scale coverage and ADA diet and insulin as needed --Hypernatremia; free water flushes, Closely monitor electrolytes --History of atrial fibrillation; rate controlled Continue current medications --Chronic anticoagulation: with Eliquis Eliquis is held because of bleeding. Consult cardiology if needed --DVT prophylaxis; SCDs Critical care time 32 minutes Disposition; the patient may be transferred back to LTAC When stable and cleared by pulmonary History Interval history: Patient seen and examined medical records reviewed Patient is comfortable vital signs noted No bleeding at the tracheostomy site, on ventilatory support Hospitalist Physical - Constitutional Vitals: Temp Pulse Resp BP Pulse Ox 97.8 F 74 17 163/90 99 03/02/19 08:28 03/02/19 09:00 03/02/19 09:00 03/02/19 09:00 03/02/19 09:00 General appearance: Present: no acute distress, well-nourished, other ( tracheostomy on vent) - EENT Eyes: Present: PERRL, EOM intact - Neck Neck: Present: supple, normal ROM - Respiratory Respiratory effort: normal Respiratory: bilateral: diminished, rhonchi, negative: rales, wheezing - Cardiovascular Rhythm: regular Heart Sounds: Present: S1 & S2 - Extremities Extremities: no ischemia, No edema - Abdominal General gastrointestinal: soft, non-tender, non-distended, normal bowel sounds - Integumentary Integumentary: Present: clear, warm - Psychiatric Psychiatric: other (on vent ) - Neurologic Neurologic: other (on vent) Results - Labs CBC & Chem 7: 03/02/19 05:43 03/01/19 05:49 Labs: Laboratory Last Values WBC 4.2 K/mm3 (4.5-11.0) L 02/28/19 10:18 RBC 3.17 M/mm3 (3.65-5.03) L 03/02/19 05:43 Hgb 9.8 gm/dl (10.1-14.3) L 03/02/19 05:43 Hct 28.4 % (30.3-42.9) L 03/02/19 05:43 MCV 90 fl (79-97) 03/02/19 05:43 MCH 31 pg (28-32) 03/02/19 05:43 MCHC 34 % (30-34) 03/02/19 05:43 RDW 15.7 % (13.2-15.2) H 03/02/19 05:43 Plt Count 120 K/mm3 (140-440) L 03/02/19 05:43 Eos % (Auto) [facility] Reporter 03/02/19 05:43 Add Manual Diff Complete 02/28/19 10:18 Total Counted 100 02/28/19 10:18 Seg Neuts % (Manual) 86.0 % (40.0-70.0) H 02/28/19 10:18 4.0 % 02/28/19 10:18 7.0 % (13.4-35.0) L 02/28/19 10:18 Reactive Lymphs % (Man) 1.0 % 02/28/19 10:18 2.0 % (0.0-7.3) 02/28/19 10:18 0 % (0.0-4.3) 02/28/19 10:18 0 % (0.0-1.8) 02/28/19 10:18 0 % 02/28/19 10:18 0 % 02/28/19 10:18 0 % 02/28/19 10:18 0 % 02/28/19 10:18 Nucleated RBC % Not Reportable 02/28/19 10:18 Seg Neutrophils # Man 3.6 K/mm3 (1.8-7.7) 02/28/19 10:18 Band Neutrophils # 0.2 K/mm3 02/28/19 10:18 0.3 K/mm3 (1.2-5.4) L 02/28/19 10:18 Abs React Lymphs (Man) 0.0 K/mm3 02/28/19 10:18 0.1 K/mm3 (0.0-0.8) 02/28/19 10:18 0.0 K/mm3 (0.0-0.4) 02/28/19 10:18 0.0 K/mm3 (0.0-0.1) 02/28/19 10:18 0.0 K/mm3 02/28/19 10:18 0.0 K/mm3 02/28/19 10:18 0.0 K/mm3 02/28/19 10:18 Blast Cells # 0.0 K/mm3 02/28/19 10:18 WBC Morphology Not Reportable 02/28/19 10:18 Hypersegmented Neuts Not Reportable 02/28/19 10:18 Hyposegmented Neuts Not Reportable 02/28/19 10:18 Hypogranular Neuts Not Reportable 02/28/19 10:18 Not Reportable 02/28/19 10:18 Not Reportable 02/28/19 10:18 Not Reportable 02/28/19 10:18 Not Reportable 02/28/19 10:18 Not Reportable 02/28/19 10:18 Not Reportable 02/28/19 10:18 Consistent w auto 02/28/19 10:18 Not Reportable 02/28/19 10:18 Plt Clumps, EDTA Not Reportable 02/28/19 10:18 Not Reportable 02/28/19 10:18 Not Reportable 02/28/19 10:18 Not Reportable 02/28/19 10:18 Plt Morphology Comment Not Reportable 02/28/19 10:18 RBC Morphology Not Reportable 02/28/19 10:18 Dimorphic RBCs Not Reportable 02/28/19 10:18 Not Reportable 02/28/19 10:18 Few 02/28/19 10:18 Not Reportable 02/28/19 10:18 Few 02/28/19 10:18 Few 02/28/19 10:18 Few 02/28/19 10:18 Not Reportable 02/28/19 10:18 Not Reportable 02/28/19 10:18 Not Reportable 02/28/19 10:18 Not Reportable 02/28/19 10:18 Not Reportable 02/28/19 10:18 Not Reportable 02/28/19 10:18 Not Reportable 02/28/19 10:18 Not Reportable 02/28/19 10:18 Not Reportable 02/28/19 10:18 Not Reportable 02/28/19 10:18 Not Reportable 02/28/19 10:18 Not Reportable 02/28/19 10:18 Not Reportable 02/28/19 10:18 Acanthocytes (Spur) Not Reportable 02/28/19 10:18 Rouleaux Not Reportable 02/28/19 10:18 Not Reportable 02/28/19 10:18 Not Reportable 02/28/19 10:18 Not Reportable 02/28/19 10:18 Not Reportable 02/28/19 10:18 Hem Pathologist Commnt No 02/28/19 10:18 PT 16.2 Sec. (12.2-14.9) H 02/28/19 10:18 INR 1.34 (0.87-1.13) H 02/28/19 10:18 APTT 29.9 Sec. (24.2-36.6) 02/28/19 10:18 POC ABG pH 7.337 (7.35-7.45) L 03/02/19 04:41 POC ABG pCO2 39.4 (35-45) 03/02/19 04:41 POC ABG pO2 128 (80-105) H 03/02/19 04:41 POC ABG HCO3 21.1 (22-26 mml/L) 03/02/19 04:41 POC ABG Total CO2 22 (23-27mmol/L) 03/02/19 04:41 POC ABG O2 Sat 99 03/02/19 04:41 POC ABG Base Excess -5 ((-2) - (+3)mmol/L) 03/02/19 04:41 30 % 03/02/19 04:41 Sodium 152 mmol/L (137-145) H 03/01/19 05:49 Potassium 4.9 mmol/L (3.6-5.0) 03/01/19 05:49 Chloride 119.4 mmol/L (98-107) H 03/01/19 05:49 Carbon Dioxide 22 mmol/L (22-30) 03/01/19 05:49 16 mmol/L 03/01/19 05:49 BUN 95 mg/dL (7-17) H 03/01/19 05:49 1.0 mg/dL (0.7-1.2) 03/01/19 05:49 Estimated GFR > 60 ml/min 03/01/19 05:49 95 % 03/01/19 05:49 Glucose 93 mg/dL (65-100) 03/01/19 05:49 POC Glucose 121 (70-105) H 03/02/19 05:48 5.8 % (4-6) 02/28/19 22:34 Calcium 7.7 mg/dL (8.4-10.2) L 03/01/19 05:49 0.50 mg/dL (0.1-1.2) 03/01/19 05:49 AST 49 units/L (5-40) H 03/01/19 05:49 ALT 16 units/L (7-56) 03/01/19 05:49 77 units/L (35-129) 03/01/19 05:49 5.0 g/dL (6.3-8.2) L 03/01/19 05:49 1.8 g/dL (3.9-5) L 03/01/19 05:49 0.6 % 03/01/19 05:49 Blood Type B POSITIVE 02/28/19 10:18 Antibody Screen Negative 02/28/19 10:18 Crossmatch See Detail 02/28/19 10:18 Active Medications - Current Medications Current Medications: Generic Name Dose Route Start Last Admin Trade Name Freq PRN Reason Stop Dose Admin Acetaminophen 650 mg 03/01/19 07:00 Tylenol PO Q4H PRN Pain MILD(1-3)/Fever >100.5/VALENZUELA Albuterol/Ipratropium 1 ampul 03/01/19 02:00 03/02/19 08:32 Duoneb *Not For Prn Use* IH 1 ampul Q6HRT AMOL Administration Lipase/Protease/Amylase 1 each 02/28/19 21:47 Pancreaze 10,500 Unit FEEDTUBE PRN PRN For Clogged Feeding Tube Dextrose 50 ml 02/28/19 22:42 D50w (25gm) Syringe IV PRN PRN Hypoglycemia Diltiazem HCl 60 mg 03/01/19 07:00 03/02/19 06:27 Cardizem PO 60 mg Q6HR AMOL Administration Folic Acid 1 mg 03/01/19 10:00 03/02/19 09:08 Folvite PO 1 mg QDAY AMOL Administration Hydralazine HCl 10 mg 03/02/19 09:49 Apresoline IV Q4HR PRN Hypertension Hydromorphone HCl 0.25 mg 02/28/19 21:47 Dilaudid IV Q3H PRN Pain, Moderate (4-6) Insulin Glargine 15 units 03/01/19 22:00 03/01/19 21:55 Lantus SUB-Q 15 units QHS AMOL Administration Insulin Human Regular 0 units 03/01/19 00:00 03/02/19 06:17 Humulin R SUB-Q Not Given Q6HR [facility] Protocol Lansoprazole 30 mg 03/01/19 10:00 03/02/19 09:08 Prevacid Solutab FEEDTUBE 30 mg BID AMOL Administration Levothyroxine Sodium 125 mcg 03/01/19 06:00 03/02/19 06:27 Synthroid PO 125 mcg QAM@0600 AMOL Administration Lorazepam 1 mg 03/01/19 06:40 Ativan IV Q6H PRN Agitation Ondansetron HCl 4 mg 02/28/19 21:47 Zofran IV Q8H PRN Nausea And Vomiting Oxycodone/Acetaminophen 1 tab 03/01/19 06:40 03/01/19 21:53 Percocet 5/325 FEEDTUBE 1 tab Q6H PRN Administration Pain, Moderate (4-6) Prednisone 20 mg 03/01/19 10:00 03/02/19 09:08 Prednisone PO 20 mg QDAY AMOL Administration Psyllium Hydrophilic Mucilloid 1 each 03/01/19 10:00 03/02/19 09:09 Metamucil PO 1 each QDAY AMOL Administration Simple Syrup 15 ml 02/28/19 21:47 Simple Syrup FEEDTUBE PRN PRN Hypoglycemia Simple Syrup 30 ml 02/28/19 21:47 Simple Syrup FEEDTUBE PRN PRN Hypoglycemia Sodium Bicarbonate 325 mg 02/28/19 21:47 Sodium Bicarbonate FEEDTUBE PRN PRN For Clogged Feeding Tube Sodium Chloride 10 ml 02/28/19 22:00 03/02/19 09:08 Sodium Chloride Flush Syringe 10 Ml IV 10 ml BID AMOL Administration Sodium Chloride 10 ml 02/28/19 21:47 Sodium Chloride Flush Syringe 10 Ml IV PRN PRN LINE FLUSH Nutrition/Malnutrition Assess - Dietary Evaluation Nutrition/Malnutrition Findings: Nutrition Notes Start: 03/01/19 08:06 Freq: Status: Active Protocol: Document 03/02/19 08:59 LM (Rec: 03/02/19 09:10 LM [email or web address]) Nutrition Notes Initial or Follow up Reassessment Current Diagnosis Diabetes,Sepsis,Stroke Other Pertinent Diagnosis Pneumonia, AMS, s/p trach and PEG, trach bleeding Current Diet Promote 1.0 at 70 ml/hr Labs/Tests POC glu 121 Pertinent Medications Reviewed Height 5 ft 7 in Weight 90.4 kg [place] Body Weight (kg) 61.36 BMI 31.1 Weight change and time frame Wt change noted. Wt obtained from [facility]. Subjective/Other Information Promote running at 40 ml/hr. Pt remains on vent. Pt tolerating TF. Percent of energy/protein needs met: 55%/62% Burn Absent Trauma Absent Minimum of two criteria No #1 Nutrition Diagnosis Inadequate oral intake Diagnosis Progress(for reassessment Continues documentation) Is patient on ventilator? Yes Is Patient Ambulatory and/or Out of Bed No REE-([facility]-confined to bed) [phone] Calculation Used for Recommendations [facility] Additional Notes Protein: 97-163g (1.2-2g/kg) Fluid: 1 ml/kcal Nutrition Intervention Change Diet Order: Continue TF Nutrition Support: Promote 1.0 at 70 ml/hr Flush 50 ml q4hr Kcal 1,680 Protein (gm) 105 Fluid (mL) 1,410 Goal #1 Continue TF Goal #2 Meet at least 75% of energy and protein needs Anticipated Discharge Needs: TF Follow-Up By: 03/05/19 Additional Comments F/U for TF rate/tolerance
--- NOTE | 2019-03-02 10:35 | Progress Note ---
Assessment and Plan 53 yo F with bleeding from tracheostomy site, resolved No further bleeding from tracheostomy site. Pt saturating well on vent. Tachycardia has resolved. Plan: 1. tracheostomy site hemostatic x 48 hours. Local wound care to tracheostomy site as ordered in discharge instruction. Please dc on 7 days of keflex via PEG tube. 2. patient saturating well on vent with satisfactory tidal volumes - continue vent management per pulm team 3. transfuse prbc as needed and trend Hb - Hb stable and responded appropriately to blood transfusions 4. c/w TF 5. Per ambulatory orders written on discharge, patient was placed on eliquis on 02/26/19. I am not sure why she is on eliquis. Please hold all blood thinners as this may be contributing to bleeding OK to dc from surgery standpoint. Discussed with patient's mother and RN Thank you, please call with questions Subjective Date of service: 03/02/19 Narrative: Pt seen and examined. No overnight events. No acute complaints. Mother at bedside Objective Vital Signs - 12hr 03/01/19 03/01/19 03/01/19 22:41 22:45 22:51 Temperature Pulse Rate 51 L 53 L 51 L Pulse Rate [ Bilateral Throughout] Pulse Rate [ From Monitor] Respiratory 14 14 14 Rate Respiratory Rate [Bilateral Throughout] Blood Pressure 152/86 152/86 115/60 O2 Sat by Pulse 100 100 100 Oximetry O2 Sat by Pulse Oximetry [ Assessment] 03/01/19 03/01/19 03/01/19 23:00 23:10 23:17 Temperature Pulse Rate 51 L 52 L 52 L Pulse Rate [ Bilateral Throughout] Pulse Rate [ From Monitor] Respiratory 14 14 Rate Respiratory Rate [Bilateral Throughout] Blood Pressure 113/62 113/62 117/57 O2 Sat by Pulse 100 100 100 Oximetry O2 Sat by Pulse Oximetry [ Assessment] 03/01/19 03/01/19 03/01/19 23:21 23:30 23:41 Temperature Pulse Rate 48 L 51 L 55 L Pulse Rate [ Bilateral Throughout] Pulse Rate [ From Monitor] Respiratory 14 14 14 Rate Respiratory Rate [Bilateral Throughout] Blood Pressure 117/57 116/65 117/57 O2 Sat by Pulse 100 100 100 Oximetry O2 Sat by Pulse Oximetry [ Assessment] 03/01/19 03/02/19 03/02/19 23:51 00:00 00:11 Temperature 97.5 F L Pulse Rate 50 L 50 L 51 L Pulse Rate [ Bilateral Throughout] Pulse Rate [ 46 L From Monitor] Respiratory 14 14 14 Rate Respiratory Rate [Bilateral Throughout] Blood Pressure 113/57 122/62 116/65 O2 Sat by Pulse 100 100 100 Oximetry O2 Sat by Pulse Oximetry [ Assessment] 03/02/19 03/02/19 03/02/19 00:21 00:30 00:41 Temperature Pulse Rate 52 L 68 46 L Pulse Rate [ Bilateral Throughout] Pulse Rate [ From Monitor] Respiratory 14 14 14 Rate Respiratory Rate [Bilateral Throughout] Blood Pressure 125/58 122/62 122/65 O2 Sat by Pulse 100 100 100 Oximetry O2 Sat by Pulse Oximetry [ Assessment] 03/02/19 03/02/19 03/02/19 00:51 01:00 01:11 Temperature Pulse Rate 46 L 44 L 44 L Pulse Rate [ Bilateral Throughout] Pulse Rate [ From Monitor] Respiratory 14 14 14 Rate Respiratory Rate [Bilateral Throughout] Blood Pressure 129/64 125/63 125/63 O2 Sat by Pulse 100 100 100 Oximetry O2 Sat by Pulse Oximetry [ Assessment] 03/02/19 03/02/19 03/02/19 01:21 01:30 01:41 Temperature Pulse Rate 47 L 54 L 48 L Pulse Rate [ Bilateral Throughout] Pulse Rate [ From Monitor] Respiratory 14 15 14 Rate Respiratory Rate [Bilateral Throughout] Blood Pressure 138/66 131/68 131/68 O2 Sat by Pulse 100 100 100 Oximetry O2 Sat by Pulse Oximetry [ Assessment] 03/02/19 03/02/19 03/02/19 01:51 02:00 02:11 Temperature Pulse Rate 48 L 53 L 44 L Pulse Rate [ Bilateral Throughout] Pulse Rate [ From Monitor] Respiratory 14 14 14 Rate Respiratory Rate [Bilateral Throughout] Blood Pressure 122/63 134/66 134/66 O2 Sat by Pulse 100 100 100 Oximetry O2 Sat by Pulse Oximetry [ Assessment] 03/02/19 03/02/19 03/02/19 02:21 02:30 02:41 Temperature Pulse Rate 59 L 57 L 55 L Pulse Rate [ Bilateral Throughout] Pulse Rate [ From Monitor] Respiratory 13 14 14 Rate Respiratory Rate [Bilateral Throughout] Blood Pressure 133/69 134/68 134/68 O2 Sat by Pulse 100 100 100 Oximetry O2 Sat by Pulse Oximetry [ Assessment] 03/02/19 03/02/19 03/02/19 02:45 02:51 03:00 Temperature Pulse Rate 53 L 45 L Pulse Rate [ 60 Bilateral Throughout] Pulse Rate [ From Monitor] Respiratory 14 14 Rate Respiratory 14 Rate [Bilateral Throughout] Blood Pressure 145/76 143/70 O2 Sat by Pulse 100 Oximetry O2 Sat by Pulse Oximetry [ Assessment] 03/02/19 03/02/19 03/02/19 03:11 03:21 03:30 Temperature Pulse Rate 58 L 86 74 Pulse Rate [ Bilateral Throughout] Pulse Rate [ From Monitor] Respiratory 15 12 13 Rate Respiratory Rate [Bilateral Throughout] Blood Pressure 143/70 160/79 154/85 O2 Sat by Pulse 100 100 100 Oximetry O2 Sat by Pulse Oximetry [ Assessment] 03/02/19 03/02/19 03/02/19 03:41 03:51 04:00 Temperature 98 F Pulse Rate 69 63 Pulse Rate [ Bilateral Throughout] Pulse Rate [ 62 From Monitor] Respiratory 15 15 12 Rate Respiratory Rate [Bilateral Throughout] Blood Pressure 154/85 167/83 O2 Sat by Pulse 100 100 100 Oximetry O2 Sat by Pulse Oximetry [ Assessment] 03/02/19 03/02/19 03/02/19 04:01 04:11 04:15 Temperature Pulse Rate 71 73 59 L Pulse Rate [ Bilateral Throughout] Pulse Rate [ From Monitor] Respiratory 13 14 Rate Respiratory Rate [Bilateral Throughout] Blood Pressure 156/82 156/82 155/78 O2 Sat by Pulse 100 100 100 Oximetry O2 Sat by Pulse Oximetry [ Assessment] 03/02/19 03/02/19 03/02/19 04:21 04:30 04:41 Temperature Pulse Rate 53 L 55 L 56 L Pulse Rate [ Bilateral Throughout] Pulse Rate [ From Monitor] Respiratory 18 14 16 Rate Respiratory Rate [Bilateral Throughout] Blood Pressure 154/85 151/74 151/74 O2 Sat by Pulse 100 100 100 Oximetry O2 Sat by Pulse Oximetry [ Assessment] 03/02/19 03/02/19 03/02/19 04:51 05:00 05:11 Temperature Pulse Rate 58 L 60 62 Pulse Rate [ Bilateral Throughout] Pulse Rate [ From Monitor] Respiratory 12 13 13 Rate Respiratory Rate [Bilateral Throughout] Blood Pressure 155/78 157/81 157/81 O2 Sat by Pulse 100 100 100 Oximetry O2 Sat by Pulse Oximetry [ Assessment] 03/02/19 03/02/19 03/02/19 05:21 05:30 05:41 Temperature Pulse Rate 65 57 L 58 L Pulse Rate [ Bilateral Throughout] Pulse Rate [ From Monitor] Respiratory 14 14 15 Rate Respiratory Rate [Bilateral Throughout] Blood Pressure 150/69 160/79 160/79 O2 Sat by Pulse 100 100 100 Oximetry O2 Sat by Pulse Oximetry [ Assessment] 03/02/19 03/02/19 03/02/19 05:51 06:01 06:11 Temperature Pulse Rate 55 L 55 L Pulse Rate [ Bilateral Throughout] Pulse Rate [ From Monitor] Respiratory 17 14 Rate Respiratory Rate [Bilateral Throughout] Blood Pressure 169/79 189/84 189/84 O2 Sat by Pulse 100 100 100 Oximetry O2 Sat by Pulse Oximetry [ Assessment] 03/02/19 03/02/19 03/02/19 06:21 06:27 06:31 Temperature Pulse Rate 66 61 Pulse Rate [ Bilateral Throughout] Pulse Rate [ From Monitor] Respiratory 14 Rate Respiratory Rate [Bilateral Throughout] Blood Pressure 189/84 185/89 200/89 O2 Sat by Pulse 100 100 Oximetry O2 Sat by Pulse Oximetry [ Assessment] 03/02/19 03/02/19 03/02/19 06:41 06:51 07:00 Temperature Pulse Rate 52 L 48 L 52 L Pulse Rate [ Bilateral Throughout] Pulse Rate [ From Monitor] Respiratory 13 17 17 Rate Respiratory Rate [Bilateral Throughout] Blood Pressure 204/81 185/89 144/75 O2 Sat by Pulse Oximetry O2 Sat by Pulse Oximetry [ Assessment] 03/02/19 03/02/19 03/02/19 07:11 07:21 07:30 Temperature Pulse Rate 53 L 46 L 47 L Pulse Rate [ Bilateral Throughout] Pulse Rate [ From Monitor] Respiratory 16 15 16 Rate Respiratory Rate [Bilateral Throughout] Blood Pressure 144/75 143/71 145/70 O2 Sat by Pulse Oximetry O2 Sat by Pulse Oximetry [ Assessment] 03/02/19 03/02/19 03/02/19 07:41 07:51 08:00 Temperature Pulse Rate 47 L 46 L 51 L Pulse Rate [ Bilateral Throughout] Pulse Rate [ 75 From Monitor] Respiratory 15 15 16 Rate Respiratory Rate [Bilateral Throughout] Blood Pressure 151/75 137/68 143/73 O2 Sat by Pulse 100 100 Oximetry O2 Sat by Pulse Oximetry [ Assessment] 03/02/19 03/02/19 03/02/19 08:11 08:21 08:28 Temperature 97.8 F Pulse Rate 51 L 49 L Pulse Rate [ Bilateral Throughout] Pulse Rate [ From Monitor] Respiratory 16 16 Rate Respiratory Rate [Bilateral Throughout] Blood Pressure 143/73 142/72 O2 Sat by Pulse 100 100 Oximetry O2 Sat by Pulse Oximetry [ Assessment] 03/02/19 03/02/19 03/02/19 08:30 08:32 08:34 Temperature Pulse Rate 51 L 48 L Pulse Rate [ 55 L Bilateral Throughout] Pulse Rate [ From Monitor] Respiratory 14 Rate Respiratory 16 Rate [Bilateral Throughout] Blood Pressure 148/73 148/73 O2 Sat by Pulse 100 100 Oximetry O2 Sat by Pulse Oximetry [ Assessment] 03/02/19 03/02/19 03/02/19 08:41 08:51 09:00 Temperature Pulse Rate 54 L 54 L 74 Pulse Rate [ Bilateral Throughout] Pulse Rate [ From Monitor] Respiratory 14 16 17 Rate Respiratory Rate [Bilateral Throughout] Blood Pressure 148/73 147/73 163/90 O2 Sat by Pulse 100 100 99 Oximetry O2 Sat by Pulse 100 Oximetry [ Assessment] - General physical appearance Narrative Exam: Gen; Awake on vent. NAD ENt: tracheostomy dressing removed and all packed surgicel removed. Some breakdown of surgicel. No evidence of gross infection. Repacked with mesalt and covered with drain dressing. Secured with trach neck strap CV; s1, s2+ resp; unlabored Ext: no c/c/e - Labs 03/02/19 05:43 03/01/19 05:49
[2019-03-02] MEDS: APRESOLINE IV PRN (11:58)
--- NOTE | 2019-03-02 12:35 | Progress Note ---
Assessment and Plan Imp 1. Tracheal hemorrhage w/ acute blood loss anemia 2. A/C respiratory failure, hypoxia 3. Hypernatremia 4. s/p Trach/PEG 5. Recent CVA/Meningitis 6. Hx of Afib Rec: 1. Patient placed on Eliquis at the time of d/c from prior admit due to afib/PFO; avoid OAC at this point 2. Monitor H/H 3. PSV trials needed daily 4. D5W and f/u BMP in AM re: hypernatremia 5. TFs, GI PPx, SCDs 6. CXR mentions the possibility of L hilar mass; recommend non-urgent CT chest w/o contrast 7. Okay to go back to [facility] 31 minutes Plan of care reviewed w/ patient's mother, she understands/agrees Subjective Date of service: 03/02/19 Principal diagnosis: Acute/chronic respiratory failure Interval history: No events. No bleeding from trach. On ventilator. Awake, alert. No obvious complaints. Active Medications Acetaminophen (Tylenol) 650 mg PO Q4H PRN PRN Reason: Pain MILD(1-3)/Fever >100.5/VALENZUELA Last Admin: 03/02/19 12:25 Dose: 650 mg Documented by: Albuterol/Ipratropium (Duoneb *Not For Prn Use*) 1 ampul IH Q6HRT [facility] Last Admin: 03/02/19 20:04 Dose: 1 ampul Documented by: Lipase/Protease/Amylase (Carloa Hammond 10,500 Unit) 1 each FEEDTUBE PRN PRN PRN Reason: For Clogged Feeding Tube Dextrose (D50w (25gm) Syringe) 50 ml IV PRN PRN PRN Reason: Hypoglycemia Diltiazem HCl (Cardizem) 60 mg PO Q6HR [facility] Last Admin: 03/03/19 00:16 Dose: Not Given Documented by: Folic Acid (Folvite) 1 mg PO QDAY [facility] Last Admin: 03/02/19 09:08 Dose: 1 mg Documented by: Hydralazine HCl (Apresoline) 10 mg IV Q4H PRN PRN Reason: Hypertension Last Admin: 03/02/19 11:58 Dose: 10 mg Documented by: Hydromorphone HCl (Dilaudid) 0.25 mg IV Q3H PRN PRN Reason: Pain, Moderate (4-6) Dextrose (D5w) 1,000 mls @ 75 mls/hr IV DIRECT [facility] Insulin Glargine (Lantus) 15 units SUB-Q QHS [facility] Last Admin: 03/02/19 21:34 Dose: 15 units Documented by: Insulin Human Regular (Humulin R) 0 units SUB-Q Q6HR [facility]; Protocol Last Admin: 03/03/19 00:16 Dose: Not Given Documented by: Lansoprazole (Prevacid Solutab) 30 mg FEEDTUBE BID [facility] Last Admin: 03/02/19 21:35 Dose: 30 mg Documented by: Levothyroxine Sodium (Synthroid) 125 mcg PO QAM@0600 [facility] Last Admin: 03/02/19 06:27 Dose: 125 mcg Documented by: Lorazepam (Ativan) 1 mg IV Q6H PRN PRN Reason: Agitation Ondansetron HCl (Zofran) 4 mg IV Q8H PRN PRN Reason: Nausea And Vomiting Oxycodone/Acetaminophen (Percocet 5/325) 1 tab FEEDTUBE Q6H PRN PRN Reason: Pain, Moderate (4-6) Last Admin: 03/02/19 21:35 Dose: 1 tab Documented by: Prednisone (Prednisone) 20 mg PO QDAY [facility] Last Admin: 03/02/19 09:08 Dose: 20 mg Documented by: Psyllium Hydrophilic Mucilloid (Metamucil) 1 each PO QDAY [facility] Last Admin: 03/02/19 09:09 Dose: 1 each Documented by: Simple Syrup (Simple Syrup) 15 ml FEEDTUBE PRN PRN PRN Reason: Hypoglycemia Simple Syrup (Simple Syrup) 30 ml FEEDTUBE PRN PRN PRN Reason: Hypoglycemia Sodium Bicarbonate (Sodium Bicarbonate) 325 mg FEEDTUBE PRN PRN PRN Reason: For Clogged Feeding Tube Sodium Chloride (Sodium Chloride Flush Syringe 10 Ml) 10 ml IV BID [facility] Last Admin: 03/02/19 21:36 Dose: 10 ml Documented by: Sodium Chloride (Sodium Chloride Flush Syringe 10 Ml) 10 ml IV PRN PRN PRN Reason: LINE FLUSH Objective Vital Signs - 12hr 03/02/19 03/02/19 03/02/19 00:41 00:51 01:00 Temperature Pulse Rate 46 L 46 L 44 L Pulse Rate [ Bilateral Throughout] Pulse Rate [ From Monitor] Respiratory 14 14 14 Rate Respiratory Rate [Bilateral Throughout] Blood Pressure 122/65 129/64 125/63 O2 Sat by Pulse 100 100 100 Oximetry O2 Sat by Pulse Oximetry [ Assessment] 03/02/19 03/02/19 03/02/19 01:11 01:21 01:30 Temperature Pulse Rate 44 L 47 L 54 L Pulse Rate [ Bilateral Throughout] Pulse Rate [ From Monitor] Respiratory 14 14 15 Rate Respiratory Rate [Bilateral Throughout] Blood Pressure 125/63 138/66 131/68 O2 Sat by Pulse 100 100 100 Oximetry O2 Sat by Pulse Oximetry [ Assessment] 03/02/19 03/02/19 03/02/19 01:41 01:51 02:00 Temperature Pulse Rate 48 L 48 L 53 L Pulse Rate [ Bilateral Throughout] Pulse Rate [ From Monitor] Respiratory 14 14 14 Rate Respiratory Rate [Bilateral Throughout] Blood Pressure 131/68 122/63 134/66 O2 Sat by Pulse 100 100 100 Oximetry O2 Sat by Pulse Oximetry [ Assessment] 03/02/19 03/02/19 03/02/19 02:11 02:21 02:30 Temperature Pulse Rate 44 L 59 L 57 L Pulse Rate [ Bilateral Throughout] Pulse Rate [ From Monitor] Respiratory 14 13 14 Rate Respiratory Rate [Bilateral Throughout] Blood Pressure 134/66 133/69 134/68 O2 Sat by Pulse 100 100 100 Oximetry O2 Sat by Pulse Oximetry [ Assessment] 03/02/19 03/02/19 03/02/19 02:41 02:45 02:51 Temperature Pulse Rate 55 L 53 L Pulse Rate [ 60 Bilateral Throughout] Pulse Rate [ From Monitor] Respiratory 14 14 Rate Respiratory 14 Rate [Bilateral Throughout] Blood Pressure 134/68 145/76 O2 Sat by Pulse 100 100 Oximetry O2 Sat by Pulse Oximetry [ Assessment] 03/02/19 03/02/19 03/02/19 03:00 03:11 03:21 Temperature Pulse Rate 45 L 58 L 86 Pulse Rate [ Bilateral Throughout] Pulse Rate [ From Monitor] Respiratory 14 15 12 Rate Respiratory Rate [Bilateral Throughout] Blood Pressure 143/70 143/70 160/79 O2 Sat by Pulse 100 100 Oximetry O2 Sat by Pulse Oximetry [ Assessment] 03/02/19 03/02/19 03/02/19 03:30 03:41 03:51 Temperature Pulse Rate 74 69 63 Pulse Rate [ Bilateral Throughout] Pulse Rate [ From Monitor] Respiratory 13 15 15 Rate Respiratory Rate [Bilateral Throughout] Blood Pressure 154/85 154/85 167/83 O2 Sat by Pulse 100 100 100 Oximetry O2 Sat by Pulse Oximetry [ Assessment] 03/02/19 03/02/19 03/02/19 04:00 04:01 04:11 Temperature 98 F Pulse Rate 71 73 Pulse Rate [ Bilateral Throughout] Pulse Rate [ 62 From Monitor] Respiratory 12 13 14 Rate Respiratory Rate [Bilateral Throughout] Blood Pressure 156/82 156/82 O2 Sat by Pulse 100 100 100 Oximetry O2 Sat by Pulse Oximetry [ Assessment] 03/02/19 03/02/19 03/02/19 04:15 04:21 04:30 Temperature Pulse Rate 59 L 53 L 55 L Pulse Rate [ Bilateral Throughout] Pulse Rate [ From Monitor] Respiratory 18 14 Rate Respiratory Rate [Bilateral Throughout] Blood Pressure 155/78 154/85 151/74 O2 Sat by Pulse 100 100 100 Oximetry O2 Sat by Pulse Oximetry [ Assessment] 03/02/19 03/02/19 03/02/19 04:41 04:51 05:00 Temperature Pulse Rate 56 L 58 L 60 Pulse Rate [ Bilateral Throughout] Pulse Rate [ From Monitor] Respiratory 16 12 13 Rate Respiratory Rate [Bilateral Throughout] Blood Pressure 151/74 155/78 157/81 O2 Sat by Pulse 100 100 100 Oximetry O2 Sat by Pulse Oximetry [ Assessment] 03/02/19 03/02/19 03/02/19 05:11 05:21 05:30 Temperature Pulse Rate 62 65 57 L Pulse Rate [ Bilateral Throughout] Pulse Rate [ From Monitor] Respiratory 13 14 14 Rate Respiratory Rate [Bilateral Throughout] Blood Pressure 157/81 150/69 160/79 O2 Sat by Pulse 100 100 100 Oximetry O2 Sat by Pulse Oximetry [ Assessment] 03/02/19 03/02/19 03/02/19 05:41 05:51 06:01 Temperature Pulse Rate 58 L 55 L 55 L Pulse Rate [ Bilateral Throughout] Pulse Rate [ From Monitor] Respiratory 15 17 14 Rate Respiratory Rate [Bilateral Throughout] Blood Pressure 160/79 169/79 189/84 O2 Sat by Pulse 100 100 100 Oximetry O2 Sat by Pulse Oximetry [ Assessment] 03/02/19 03/02/19 03/02/19 06:11 06:21 06:27 Temperature Pulse Rate 66 Pulse Rate [ Bilateral Throughout] Pulse Rate [ From Monitor] Respiratory Rate Respiratory Rate [Bilateral Throughout] Blood Pressure 189/84 189/84 185/89 O2 Sat by Pulse 100 100 Oximetry O2 Sat by Pulse Oximetry [ Assessment] 03/02/19 03/02/19 03/02/19 06:31 06:41 06:51 Temperature Pulse Rate 61 52 L 48 L Pulse Rate [ Bilateral Throughout] Pulse Rate [ From Monitor] Respiratory 14 13 17 Rate Respiratory Rate [Bilateral Throughout] Blood Pressure 200/89 204/81 185/89 O2 Sat by Pulse 100 Oximetry O2 Sat by Pulse Oximetry [ Assessment] 03/02/19 03/02/19 03/02/19 07:00 07:11 07:21 Temperature Pulse Rate 52 L 53 L 46 L Pulse Rate [ Bilateral Throughout] Pulse Rate [ From Monitor] Respiratory 17 16 15 Rate Respiratory Rate [Bilateral Throughout] Blood Pressure 144/75 144/75 143/71 O2 Sat by Pulse Oximetry O2 Sat by Pulse Oximetry [ Assessment] 03/02/19 03/02/19 03/02/19 07:30 07:41 07:51 Temperature Pulse Rate 47 L 47 L 46 L Pulse Rate [ Bilateral Throughout] Pulse Rate [ From Monitor] Respiratory 16 15 15 Rate Respiratory Rate [Bilateral Throughout] Blood Pressure 145/70 151/75 137/68 O2 Sat by Pulse 100 Oximetry O2 Sat by Pulse Oximetry [ Assessment] 03/02/19 03/02/19 03/02/19 08:00 08:11 08:21 Temperature Pulse Rate 51 L 51 L 49 L Pulse Rate [ Bilateral Throughout] Pulse Rate [ 75 From Monitor] Respiratory 16 16 16 Rate Respiratory Rate [Bilateral Throughout] Blood Pressure 143/73 143/73 142/72 O2 Sat by Pulse 100 100 100 Oximetry O2 Sat by Pulse Oximetry [ Assessment] 03/02/19 03/02/19 03/02/19 08:28 08:30 08:32 Temperature 97.8 F Pulse Rate 51 L Pulse Rate [ 55 L Bilateral Throughout] Pulse Rate [ From Monitor] Respiratory 14 Rate Respiratory 16 Rate [Bilateral Throughout] Blood Pressure 148/73 O2 Sat by Pulse 100 Oximetry O2 Sat by Pulse Oximetry [ Assessment] 03/02/19 03/02/19 03/02/19 08:34 08:41 08:51 Temperature Pulse Rate 48 L 54 L 54 L Pulse Rate [ Bilateral Throughout] Pulse Rate [ From Monitor] Respiratory 14 16 Rate Respiratory Rate [Bilateral Throughout] Blood Pressure 148/73 148/73 147/73 O2 Sat by Pulse 100 100 100 Oximetry O2 Sat by Pulse 100 Oximetry [ Assessment] 03/02/19 03/02/19 03/02/19 09:00 11:57 11:58 Temperature Pulse Rate 74 61 61 Pulse Rate [ Bilateral Throughout] Pulse Rate [ From Monitor] Respiratory 17 Rate Respiratory Rate [Bilateral Throughout] Blood Pressure 163/90 175/100 175/100 O2 Sat by Pulse 99 Oximetry O2 Sat by Pulse Oximetry [ Assessment] 03/02/19 03/02/19 12:10 12:24 Temperature 98.6 F Pulse Rate 71 Pulse Rate [ Bilateral Throughout] Pulse Rate [ From Monitor] Respiratory Rate Respiratory Rate [Bilateral Throughout] Blood Pressure 160/73 O2 Sat by Pulse 99 Oximetry O2 Sat by Pulse Oximetry [ Assessment] Constitutional: alert, other (critically ill on ventilator) ENT: other (old blood seen around trach site, mouth and nose) Neck: other (trach present and midline, old blood present around trach) Effort: normal Ascultation: Bilateral: clear Cardiovascular: other (sinus tach) Gastrointestinal: normoactive bowel sounds, soft, non-tender Extremities: no cyanosis, no edema Neurologic: normal mental status, other (LUE weakness) Psychiatric: mood appropriate, affect normal CBC and BMP: 03/02/19 05:43 03/01/19 05:49 ABG, PT/INR, D-dimer: ABG POC ABG pH 7.337 (7.35-7.45) L 03/02/19 04:41 POC ABG pCO2 39.4 (35-45) 03/02/19 04:41 POC ABG pO2 128 (80-105) H 03/02/19 04:41 POC ABG HCO3 21.1 (22-26 mml/L) 03/02/19 04:41 POC ABG Total CO2 22 (23-27mmol/L) 03/02/19 04:41 POC ABG O2 Sat 99 03/02/19 04:41 PT/INR, D-dimer PT 16.2 Sec. (12.2-14.9) H 02/28/19 10:18 INR 1.34 (0.87-1.13) H 02/28/19 10:18 Abnormal lab findings: Abnormal Labs 02/28/19 02/28/19 02/28/19 10:18 10:18 10:18 WBC 4.2 L RBC 2.62 L Hgb 8.1 L Hct 24.2 L RDW Plt Count 106 L Seg Neuts % (Manual) 86.0 H Lymphocytes % (Manual) 7.0 L Seg Neutrophils # Man Lymphocytes # (Manual) 0.3 L PT 16.2 H INR 1.34 H POC ABG pH POC ABG pCO2 POC ABG pO2 Sodium 152 H Chloride 117.6 H BUN 84 H Glucose 130 H POC Glucose Calcium 7.8 L AST 49 H Total Protein 5.0 L Albumin 2.0 L Crossmatch 02/28/19 02/28/19 02/28/19 10:18 15:11 15:58 WBC RBC Hgb 6.7 L Hct 20.0 L RDW Plt Count Seg Neuts % (Manual) Lymphocytes % (Manual) Seg Neutrophils # Man Lymphocytes # (Manual) PT INR POC ABG pH POC ABG pCO2 33.9 L POC ABG pO2 Sodium Chloride BUN Glucose POC Glucose Calcium AST Total Protein Albumin Crossmatch See Detail 02/28/19 03/01/19 03/01/19 22:34 03:34 05:49 WBC RBC Hgb 9.0 L Hct 26.8 L D RDW Plt Count Seg Neuts % (Manual) Lymphocytes % (Manual) Seg Neutrophils # Man Lymphocytes # (Manual) PT INR POC ABG pH POC ABG pCO2 POC ABG pO2 198 H Sodium 152 H Chloride 119.4 H BUN 95 H Glucose POC Glucose Calcium 7.7 L AST 49 H Total Protein 5.0 L Albumin 1.8 L Crossmatch 03/01/19 03/01/19 03/01/19 05:49 20:32 23:13 WBC RBC Hgb 7.5 L Hct 22.5 L RDW Plt Count Seg Neuts % (Manual) Lymphocytes % (Manual) Seg Neutrophils # Man Lymphocytes # (Manual) PT INR POC ABG pH POC ABG pCO2 POC ABG pO2 Sodium Chloride BUN Glucose POC Glucose 106 H 137 H Calcium AST Total Protein Albumin Crossmatch 03/02/19 03/02/19 03/02/19 03:16 04:41 05:43 WBC RBC 3.17 L Hgb 9.8 L Hct 28.4 L RDW 15.7 H Plt Count 120 L Seg Neuts % (Manual) Lymphocytes % (Manual) Seg Neutrophils # Man 0.0 L Lymphocytes # (Manual) 0.0 L PT INR POC ABG pH 7.337 L POC ABG pCO2 POC ABG pO2 128 H Sodium Chloride BUN Glucose POC Glucose 148 H Calcium AST Total Protein Albumin Crossmatch 03/02/19 05:48 WBC RBC Hgb Hct RDW Plt Count Seg Neuts % (Manual) Lymphocytes % (Manual) Seg Neutrophils # Man Lymphocytes # (Manual) PT INR POC ABG pH POC ABG pCO2 POC ABG pO2 Sodium Chloride BUN Glucose POC Glucose 121 H Calcium AST Total Protein Albumin Crossmatch Chest x-ray: report reviewed, image reviewed (lungs essentially clear now)
[2019-03-02] MEDS: LANTUS SUB-Q SCH (21:34)
[2019-03-02] MEDS: PERCOCET 5/325 FEEDTUBE PRN (21:35)
[2019-03-03] MEDS: CARDIZEM PO SCH ×5 (00:16→23:38)
[2019-03-03] MEDS: HumuLIN R SUB-Q SCH ×5 (00:16→23:55)
[2019-03-03] MEDS: DUONEB *Not for PRN Use IH SCH ×4 (02:04→21:07)
[2019-03-03] MEDS: D5W 1,000 ML IV SCH ×2 (03:10→15:00)
[2019-03-03 05:37] LABS: Hematocrit 26.2 % (30.3-42.9); Hemoglobin 8.9 gm/dl (10.1-14.3); Mean Corpuscular HGB Conc 34 % (30-34); Mean Corpuscular Volume 89 fl (79-97); Platelet Count 115 K/mm3 (140-440); Red Blood Count 2.93 M/mm3 (3.65-5.03); Red Cell Distribution Width 15.9 % (13.2-15.2)
[2019-03-03 05:59] LABS: BUN/Creatinine Ratio 104; Blood Urea Nitrogen 83 mg/dL (7-17); Calcium 7.9 mg/dL (8.4-10.2); Hemolysis Index 9
[2019-03-03] MEDS: SYNTHROID PO SCH (07:11)
[2019-03-03] MEDS: APRESOLINE IV PRN (07:38)
[2019-03-03] MEDS: METAMUCIL PO SCH (09:00)
[2019-03-03] MEDS: PREVACID SOLUTAB FEEDTUBE SCH ×2 (09:00→21:50)
[2019-03-03] MEDS: FOLVITE PO SCH (09:01)
[2019-03-03] MEDS: predniSONE PO SCH (09:02)
[2019-03-03] MEDS: SODIUM CHLORIDE FLUSH SYRINGE 10 ML IV SCH ×2 (09:03→22:11)
--- NOTE | 2019-03-03 10:47 | Progress Note ---
Assessment and Plan Assessment and plan: --Bleeding from tracheostomy site; on ventilatory support Surgeon evaluated the patient, Resolved Pulmonary critical following, stable to be discharged back to LTAC --Symptomatic anemia; requiring blood transfusion, received 3 units Hemoglobin has improved --Severe malnutrition;hypoalbuminemia nutrition supplements and supportive care, Nutrition consult --Type 2 diabetes mellitus; check sliding scale coverage and ADA diet and insulin as needed --Hypernatremia; free water flushes, Closely monitor electrolytes --History of atrial fibrillation; rate controlled Continue current medications --Chronic anticoagulation: with Eliquis Eliquis is held because of bleeding. Consult cardiology if needed --DVT prophylaxis; SCDs Critical care time 34 minutes The high probability of a clinically significant, sudden or life threatening deterioration of the [respiratory, metabolic, cardiac, hematology] system(s) required my full and direct attention, intervention and personal management. The aggregate critical care time was [34] minutes. This time is in addition to time spent performing reported procedures but includes the following: [x] Data Review and interpretation [x] Patient assessment and monitoring of vital signs [x] Documentation [x] Medication orders and management Disposition; the patient is stable to transf back to LTAC History Interval history: Sincerely and examined medical records reviewed Patient feels comfortable not new episodes of bleeding from the tracheostomy site On ventilatory support Alert and awake not in acute distress Vital signs noted Hospitalist Physical - Constitutional Vitals: Temp Pulse Resp BP Pulse Ox 97.9 F 90 15 181/67 100 03/03/19 08:00 03/03/19 08:40 03/03/19 08:40 03/03/19 08:40 03/03/19 08:40 General appearance: Present: no acute distress, well-nourished, other ( tracheostomy on vent) - EENT Eyes: Present: PERRL, EOM intact - Neck Neck: Present: supple, normal ROM - Respiratory Respiratory effort: normal Respiratory: bilateral: diminished, negative: rales, rhonchi, wheezing - Cardiovascular Rhythm: regular Heart Sounds: Present: S1 & S2 - Extremities Extremities: no ischemia, No edema - Abdominal General gastrointestinal: soft, non-tender, non-distended, normal bowel sounds - Integumentary Integumentary: Present: clear, warm - Psychiatric Psychiatric: appropriate mood/affect, cooperative - Neurologic Neurologic: other (on vent) Results - Labs CBC & Chem 7: 03/03/19 04:24 03/03/19 04:24 Labs: Laboratory Last Values WBC 3.0 K/mm3 (4.5-11.0) L 03/03/19 04:24 RBC 2.93 M/mm3 (3.65-5.03) L 03/03/19 04:24 Hgb 8.9 gm/dl (10.1-14.3) L 03/03/19 04:24 Hct 26.2 % (30.3-42.9) L 03/03/19 04:24 MCV 89 fl (79-97) 03/03/19 04:24 MCH 30 pg (28-32) 03/03/19 04:24 MCHC 34 % (30-34) 03/03/19 04:24 RDW 15.9 % (13.2-15.2) H 03/03/19 04:24 Plt Count 115 K/mm3 (140-440) L 03/03/19 04:24 Eos % (Auto) Body Make Up Artist 03/02/19 05:43 Add Manual Diff Complete 03/02/19 05:43 Total Counted 100 03/02/19 05:43 Seg Neuts % (Manual) 68.0 % (40.0-70.0) 03/02/19 05:43 0 % 03/02/19 05:43 25.0 % (13.4-35.0) 03/02/19 05:43 Reactive Lymphs % (Man) 0 % 03/02/19 05:43 6.0 % (0.0-7.3) 03/02/19 05:43 1.0 % (0.0-4.3) 03/02/19 05:43 0 % (0.0-1.8) 03/02/19 05:43 0 % 03/02/19 05:43 0 % 03/02/19 05:43 0 % 03/02/19 05:43 0 % 03/02/19 05:43 Nucleated RBC % Not Reportable 03/02/19 05:43 Seg Neutrophils # Man 0.0 K/mm3 (1.8-7.7) L 03/02/19 05:43 Band Neutrophils # 0.0 K/mm3 03/02/19 05:43 0.0 K/mm3 (1.2-5.4) L 03/02/19 05:43 Abs React Lymphs (Man) 0.0 K/mm3 03/02/19 05:43 0.0 K/mm3 (0.0-0.8) 03/02/19 05:43 0.0 K/mm3 (0.0-0.4) 03/02/19 05:43 0.0 K/mm3 (0.0-0.1) 03/02/19 05:43 0.0 K/mm3 03/02/19 05:43 0.0 K/mm3 03/02/19 05:43 0.0 K/mm3 03/02/19 05:43 Blast Cells # 0.0 K/mm3 03/02/19 05:43 WBC Morphology Not Reportable 03/02/19 05:43 Hypersegmented Neuts Not Reportable 03/02/19 05:43 Hyposegmented Neuts Not Reportable 03/02/19 05:43 Hypogranular Neuts Not Reportable 03/02/19 05:43 Not Reportable 03/02/19 05:43 Not Reportable 03/02/19 05:43 Not Reportable 03/02/19 05:43 Not Reportable 03/02/19 05:43 Not Reportable 03/02/19 05:43 Not Reportable 03/02/19 05:43 Consistent w auto 03/02/19 05:43 Not Reportable 03/02/19 05:43 Plt Clumps, EDTA Not Reportable 03/02/19 05:43 Not Reportable 03/02/19 05:43 Not Reportable 03/02/19 05:43 Not Reportable 03/02/19 05:43 Plt Morphology Comment Not Reportable 03/02/19 05:43 RBC Morphology Not Reportable 03/02/19 05:43 Dimorphic RBCs Not Reportable 03/02/19 05:43 Not Reportable 03/02/19 05:43 Not Reportable 03/02/19 05:43 Few 03/02/19 05:43 Few 03/02/19 05:43 Not Reportable 03/02/19 05:43 Not Reportable 03/02/19 05:43 Not Reportable 03/02/19 05:43 Not Reportable 03/02/19 05:43 Not Reportable 03/02/19 05:43 Not Reportable 03/02/19 05:43 Not Reportable 03/02/19 05:43 Not Reportable 03/02/19 05:43 Not Reportable 03/02/19 05:43 Not Reportable 03/02/19 05:43 Not Reportable 03/02/19 05:43 Not Reportable 03/02/19 05:43 Not Reportable 03/02/19 05:43 Not Reportable 03/02/19 05:43 Not Reportable 03/02/19 05:43 Acanthocytes (Spur) Not Reportable 03/02/19 05:43 Rouleaux Not Reportable 03/02/19 05:43 Not Reportable 03/02/19 05:43 Not Reportable 03/02/19 05:43 Not Reportable 03/02/19 05:43 Not Reportable 03/02/19 05:43 Hem Pathologist Commnt No 03/02/19 05:43 PT 16.2 Sec. (12.2-14.9) H 02/28/19 10:18 INR 1.34 (0.87-1.13) H 02/28/19 10:18 APTT 29.9 Sec. (24.2-36.6) 02/28/19 10:18 POC ABG pH 7.398 (7.35-7.45) 03/03/19 05:10 POC ABG pCO2 39.2 (35-45) 03/03/19 05:10 POC ABG pO2 152 (80-105) H 03/03/19 05:10 POC ABG HCO3 24.2 (22-26 mml/L) 03/03/19 05:10 POC ABG Total CO2 25 (23-27mmol/L) 03/03/19 05:10 POC ABG O2 Sat 99 03/03/19 05:10 POC ABG Base Excess -1 ((-2) - (+3)mmol/L) 03/03/19 05:10 30 % 03/03/19 05:10 Sodium 149 mmol/L (137-145) H 03/03/19 04:24 Potassium 4.0 mmol/L (3.6-5.0) 03/03/19 04:24 Chloride 116.8 mmol/L (98-107) H 03/03/19 04:24 Carbon Dioxide 23 mmol/L (22-30) 03/03/19 04:24 13 mmol/L 03/03/19 04:24 BUN 83 mg/dL (7-17) H 03/03/19 04:24 0.8 mg/dL (0.7-1.2) 03/03/19 04:24 Estimated GFR > 60 ml/min 03/03/19 04:24 104 % 03/03/19 04:24 Glucose 127 mg/dL (65-100) H 03/03/19 04:24 POC Glucose 128 (70-105) H 03/03/19 05:45 5.8 % (4-6) 02/28/19 22:34 Calcium 7.9 mg/dL (8.4-10.2) L 03/03/19 04:24 0.50 mg/dL (0.1-1.2) 03/01/19 05:49 AST 49 units/L (5-40) H 03/01/19 05:49 ALT 16 units/L (7-56) 03/01/19 05:49 77 units/L (35-129) 03/01/19 05:49 5.0 g/dL (6.3-8.2) L 03/01/19 05:49 1.8 g/dL (3.9-5) L 03/01/19 05:49 0.6 % 03/01/19 05:49 Blood Type B POSITIVE 02/28/19 10:18 Antibody Screen Negative 02/28/19 10:18 Crossmatch See Detail 02/28/19 10:18 Active Medications - Current Medications Current Medications: Generic Name Dose Route Start Last Admin Trade Name Freq PRN Reason Stop Dose Admin Acetaminophen 650 mg 03/01/19 07:00 03/02/19 12:25 Tylenol PO 650 mg Q4H PRN Administration Pain MILD(1-3)/Fever >100.5/VALENZUELA Albuterol/Ipratropium 1 ampul 03/01/19 02:00 03/03/19 08:16 Duoneb *Not For Prn Use* IH 1 ampul Q6HRT AOML Administration Lipase/Protease/Amylase 1 each 02/28/19 21:47 Pancreemeka Hammond 10,500 Unit FEEDTUBE PRN PRN For Clogged Feeding Tube Dextrose 50 ml 02/28/19 22:42 D50w (25gm) Syringe IV PRN PRN Hypoglycemia Diltiazem HCl 60 mg 03/01/19 07:00 03/03/19 06:00 Cardizem PO Not Given Q6HR AMOL Folic Acid 1 mg 03/01/19 10:00 03/03/19 09:01 Folvite PO 1 mg QDAY AMOL Administration Hydralazine HCl 10 mg 03/02/19 09:49 03/03/19 07:38 Apresoline IV 10 mg Q4H PRN Administration Hypertension Hydromorphone HCl 0.25 mg 02/28/19 21:47 Dilaudid IV Q3H PRN Pain, Moderate (4-6) Dextrose 1,000 mls @ 75 mls/hr 03/03/19 02:00 03/03/19 03:10 D5w IV 75 mls/hr DIRECT AMOL Administration Insulin Glargine 15 units 03/01/19 22:00 03/02/19 21:34 Lantus SUB-Q 15 units QHS AMOL Administration Insulin Human Regular 0 units 03/01/19 00:00 03/03/19 07:11 Humulin R SUB-Q Not Given Q6HR [facility] Protocol Lansoprazole 30 mg 03/01/19 10:00 03/03/19 09:00 Prevacid Solutab FEEDTUBE 30 mg BID AMOL Administration Levothyroxine Sodium 125 mcg 03/01/19 06:00 03/03/19 07:11 Synthroid PO 125 mcg QAM@0600 AMOL Administration Lorazepam 1 mg 03/01/19 06:40 Ativan IV Q6H PRN Agitation Ondansetron HCl 4 mg 02/28/19 21:47 Zofran IV Q8H PRN Nausea And Vomiting Oxycodone/Acetaminophen 1 tab 03/01/19 06:40 03/02/19 21:35 Percocet 5/325 FEEDTUBE 1 tab Q6H PRN Administration Pain, Moderate (4-6) Prednisone 20 mg 03/01/19 10:00 03/03/19 09:02 Prednisone PO 20 mg QDAY AMOL Administration Psyllium Hydrophilic Mucilloid 1 each 03/01/19 10:00 03/03/19 09:00 Metamucil PO 1 each QDAY AMOL Administration Simple Syrup 15 ml 02/28/19 21:47 Simple Syrup FEEDTUBE PRN PRN Hypoglycemia Simple Syrup 30 ml 02/28/19 21:47 Simple Syrup FEEDTUBE PRN PRN Hypoglycemia Sodium Bicarbonate 325 mg 02/28/19 21:47 Sodium Bicarbonate FEEDTUBE PRN PRN For Clogged Feeding Tube Sodium Chloride 10 ml 02/28/19 22:00 03/03/19 09:03 Sodium Chloride Flush Syringe 10 Ml IV 10 ml BID AMOL Administration Sodium Chloride 10 ml 02/28/19 21:47 Sodium Chloride Flush Syringe 10 Ml IV PRN PRN LINE FLUSH Nutrition/Malnutrition Assess - Dietary Evaluation Nutrition/Malnutrition Findings: Nutrition Notes Start: 03/01/19 08:06 Freq: Status: Active Protocol: Document 03/02/19 08:59 LM (Rec: 03/02/19 09:10 LM [email or web address]) Nutrition Notes Initial or Follow up Reassessment Current Diagnosis Diabetes,Sepsis,Stroke Other Pertinent Diagnosis Pneumonia, AMS, s/p trach and PEG, trach bleeding Current Diet Promote 1.0 at 70 ml/hr Labs/Tests POC glu 121 Pertinent Medications Reviewed Height 5 ft 7 in Weight 90.4 kg [place] Body Weight (kg) 61.36 BMI 31.1 Weight change and time frame Wt change noted. Wt obtained from [facility]. Subjective/Other Information Promote running at 40 ml/hr. Pt remains on vent. Pt tolerating TF. Percent of energy/protein needs met: 55%/62% Burn Absent Trauma Absent Minimum of two criteria No #1 Nutrition Diagnosis Inadequate oral intake Diagnosis Progress(for reassessment Continues documentation) Is patient on ventilator? Yes Is Patient Ambulatory and/or Out of Bed No REE-([facility]-confined to bed) [phone] Calculation Used for Recommendations [facility] Additional Notes Protein: 97-163g (1.2-2g/kg) Fluid: 1 ml/kcal Nutrition Intervention Change Diet Order: Continue TF Nutrition Support: Promote 1.0 at 70 ml/hr Flush 50 ml q4hr Kcal 1,680 Protein (gm) 105 Fluid (mL) 1,410 Goal #1 Continue TF Goal #2 Meet at least 75% of energy and protein needs Anticipated Discharge Needs: TF Follow-Up By: 03/05/19 Additional Comments F/U for TF rate/tolerance
--- NOTE | 2019-03-03 12:02 | Progress Note ---
Assessment and Plan p 1. Tracheal hemorrhage w/ acute blood loss anemia 2. A/C respiratory failure, hypoxia 3. Hypernatremia 4. s/p Trach/PEG 5. Recent CVA/Meningitis 6. Hx of Afib 7. Suspect left hilar mass Rec: 1. Patient placed on Eliquis at the time of d/c from prior admit due to afib/PFO; avoid OAC at this point 2. Monitor H/H 3. PSV trials needed daily 4. D5W and f/u BMP in AM re: hypernatremia 5. TFs, GI PPx, SCDs 6. CXR mentions the possibility of L hilar mass; recommend non-urgent CT chest w/o contrast 7. Okay to go back to [facility] 8. CPAP trial with pressure support of 10 cm. Check arterial blood gases. May be able to wean her off ventilator and Critical care time 31 minute Subjective Date of service: 03/03/19 Principal diagnosis: Acute/chronic respiratory failure Interval history: No further bleeding from the trach. Patient is off anticoagulants. Remain unresponsive on mechanical ventilator. Objective Vital Signs - 12hr 03/03/19 03/03/19 03/03/19 00:05 00:11 00:15 Temperature Pulse Rate 48 L 45 L 47 L Pulse Rate [ Bilateral Throughout] Pulse Rate [ From Monitor] Respiratory 13 14 16 Rate Respiratory Rate [Bilateral Throughout] Blood Pressure 127/64 127/64 127/64 O2 Sat by Pulse 100 100 100 Oximetry 03/03/19 03/03/19 03/03/19 00:16 00:25 02:04 Temperature Pulse Rate 48 L 46 L Pulse Rate [ 52 L Bilateral Throughout] Pulse Rate [ From Monitor] Respiratory Rate Respiratory 14 Rate [Bilateral Throughout] Blood Pressure 136/65 136/65 O2 Sat by Pulse 100 Oximetry 03/03/19 03/03/19 03/03/19 02:41 02:45 02:51 Temperature Pulse Rate 66 59 L 54 L Pulse Rate [ Bilateral Throughout] Pulse Rate [ From Monitor] Respiratory 14 14 12 Rate Respiratory Rate [Bilateral Throughout] Blood Pressure 151/54 151/54 146/63 O2 Sat by Pulse 96 100 100 Oximetry 03/03/19 03/03/19 03/03/19 02:55 03:01 03:05 Temperature Pulse Rate 49 L 59 L 48 L Pulse Rate [ Bilateral Throughout] Pulse Rate [ From Monitor] Respiratory 16 13 19 Rate Respiratory Rate [Bilateral Throughout] Blood Pressure 151/54 147/74 147/74 O2 Sat by Pulse 100 100 100 Oximetry 03/03/19 03/03/19 03/03/19 03:11 03:15 03:21 Temperature Pulse Rate 47 L 53 L 45 L Pulse Rate [ Bilateral Throughout] Pulse Rate [ From Monitor] Respiratory 19 16 14 Rate Respiratory Rate [Bilateral Throughout] Blood Pressure 147/74 147/74 156/67 O2 Sat by Pulse 100 100 100 Oximetry 03/03/19 03/03/19 03/03/19 03:25 03:27 03:31 Temperature 97.8 F Pulse Rate 55 L 59 L Pulse Rate [ Bilateral Throughout] Pulse Rate [ From Monitor] Respiratory 13 16 Rate Respiratory Rate [Bilateral Throughout] Blood Pressure 156/67 156/67 O2 Sat by Pulse 100 100 Oximetry 03/03/19 03/03/19 03/03/19 03:35 03:41 03:45 Temperature Pulse Rate 48 L 52 L 47 L Pulse Rate [ Bilateral Throughout] Pulse Rate [ From Monitor] Respiratory 14 13 16 Rate Respiratory Rate [Bilateral Throughout] Blood Pressure 147/77 147/77 147/77 O2 Sat by Pulse 100 100 100 Oximetry 03/03/19 03/03/19 03/03/19 03:51 03:55 04:00 Temperature Pulse Rate 56 L 53 L 46 L Pulse Rate [ Bilateral Throughout] Pulse Rate [ 48 L From Monitor] Respiratory 14 13 13 Rate Respiratory Rate [Bilateral Throughout] Blood Pressure 152/68 152/68 156/74 O2 Sat by Pulse 100 99 100 Oximetry 03/03/19 03/03/19 03/03/19 04:05 04:11 04:15 Temperature Pulse Rate 46 L 55 L 55 L Pulse Rate [ Bilateral Throughout] Pulse Rate [ From Monitor] Respiratory 14 15 14 Rate Respiratory Rate [Bilateral Throughout] Blood Pressure 156/74 156/74 156/74 O2 Sat by Pulse 100 100 100 Oximetry 03/03/19 03/03/19 03/03/19 04:20 04:25 04:30 Temperature Pulse Rate 55 L 61 53 L Pulse Rate [ Bilateral Throughout] Pulse Rate [ From Monitor] Respiratory 14 12 14 Rate Respiratory Rate [Bilateral Throughout] Blood Pressure 151/71 156/74 150/64 O2 Sat by Pulse 100 100 100 Oximetry 03/03/19 03/03/19 03/03/19 04:35 04:40 04:46 Temperature Pulse Rate 48 L 56 L 52 L Pulse Rate [ Bilateral Throughout] Pulse Rate [ From Monitor] Respiratory 14 14 13 Rate Respiratory Rate [Bilateral Throughout] Blood Pressure 150/64 150/64 144/66 O2 Sat by Pulse 100 98 100 Oximetry 03/03/19 03/03/19 03/03/19 04:50 04:56 05:00 Temperature Pulse Rate 51 L 64 54 L Pulse Rate [ Bilateral Throughout] Pulse Rate [ From Monitor] Respiratory 14 14 14 Rate Respiratory Rate [Bilateral Throughout] Blood Pressure 144/66 150/64 150/64 O2 Sat by Pulse 100 100 100 Oximetry 03/03/19 03/03/19 03/03/19 05:06 05:10 05:16 Temperature Pulse Rate 56 L 55 L 58 L Pulse Rate [ Bilateral Throughout] Pulse Rate [ From Monitor] Respiratory 13 14 17 Rate Respiratory Rate [Bilateral Throughout] Blood Pressure 149/62 149/62 134/55 O2 Sat by Pulse 100 100 100 Oximetry 03/03/19 03/03/19 03/03/19 05:20 05:26 05:30 Temperature Pulse Rate 47 L 54 L 87 Pulse Rate [ Bilateral Throughout] Pulse Rate [ From Monitor] Respiratory 16 12 15 Rate Respiratory Rate [Bilateral Throughout] Blood Pressure 134/55 134/55 142/79 O2 Sat by Pulse 100 100 97 Oximetry 03/03/19 03/03/19 03/03/19 05:36 05:40 05:46 Temperature Pulse Rate 65 59 L 52 L Pulse Rate [ Bilateral Throughout] Pulse Rate [ From Monitor] Respiratory 15 13 18 Rate Respiratory Rate [Bilateral Throughout] Blood Pressure 142/79 142/79 179/62 O2 Sat by Pulse 100 99 100 Oximetry 03/03/19 03/03/19 03/03/19 05:50 05:56 06:00 Temperature Pulse Rate 52 L 49 L 50 L Pulse Rate [ Bilateral Throughout] Pulse Rate [ From Monitor] Respiratory 18 17 14 Rate Respiratory Rate [Bilateral Throughout] Blood Pressure 179/62 179/62 174/65 O2 Sat by Pulse 100 100 100 Oximetry 03/03/19 03/03/19 03/03/19 06:06 06:10 06:15 Temperature Pulse Rate 52 L 52 L 57 L Pulse Rate [ Bilateral Throughout] Pulse Rate [ From Monitor] Respiratory 15 18 14 Rate Respiratory Rate [Bilateral Throughout] Blood Pressure 174/65 174/65 168/67 O2 Sat by Pulse 100 100 100 Oximetry 03/03/19 03/03/19 03/03/19 06:20 06:26 06:30 Temperature Pulse Rate 50 L 49 L 53 L Pulse Rate [ Bilateral Throughout] Pulse Rate [ From Monitor] Respiratory 14 15 12 Rate Respiratory Rate [Bilateral Throughout] Blood Pressure 168/67 168/67 183/73 O2 Sat by Pulse 100 100 100 Oximetry 03/03/19 03/03/19 03/03/19 06:36 06:40 06:46 Temperature Pulse Rate 50 L 50 L 49 L Pulse Rate [ Bilateral Throughout] Pulse Rate [ From Monitor] Respiratory 14 14 14 Rate Respiratory Rate [Bilateral Throughout] Blood Pressure 183/73 183/73 170/69 O2 Sat by Pulse 100 100 100 Oximetry 03/03/19 03/03/19 03/03/19 06:50 06:56 07:00 Temperature Pulse Rate 49 L 51 L 57 L Pulse Rate [ Bilateral Throughout] Pulse Rate [ From Monitor] Respiratory 15 13 15 Rate Respiratory Rate [Bilateral Throughout] Blood Pressure 170/69 170/69 174/73 O2 Sat by Pulse 100 100 100 Oximetry 03/03/19 03/03/19 03/03/19 07:06 07:10 07:16 Temperature Pulse Rate 56 L 72 53 L Pulse Rate [ Bilateral Throughout] Pulse Rate [ From Monitor] Respiratory 13 13 16 Rate Respiratory Rate [Bilateral Throughout] Blood Pressure 174/73 174/73 167/68 O2 Sat by Pulse 100 100 100 Oximetry 03/03/19 03/03/19 03/03/19 07:20 07:26 07:30 Temperature Pulse Rate 53 L 54 L 54 L Pulse Rate [ Bilateral Throughout] Pulse Rate [ From Monitor] Respiratory 15 14 12 Rate Respiratory Rate [Bilateral Throughout] Blood Pressure 167/68 167/68 174/68 O2 Sat by Pulse 100 100 100 Oximetry 03/03/19 03/03/19 03/03/19 07:36 07:38 07:40 Temperature Pulse Rate 56 L 90 69 Pulse Rate [ Bilateral Throughout] Pulse Rate [ From Monitor] Respiratory 14 17 Rate Respiratory Rate [Bilateral Throughout] Blood Pressure 174/68 174/68 174/68 O2 Sat by Pulse 100 100 Oximetry 03/03/19 03/03/19 03/03/19 07:46 07:50 07:56 Temperature Pulse Rate 55 L 76 79 Pulse Rate [ Bilateral Throughout] Pulse Rate [ From Monitor] Respiratory 12 13 13 Rate Respiratory Rate [Bilateral Throughout] Blood Pressure 160/64 160/64 160/64 O2 Sat by Pulse 100 100 100 Oximetry 03/03/19 03/03/19 03/03/19 08:00 08:06 08:10 Temperature 97.9 F Pulse Rate 77 78 80 Pulse Rate [ 77 Bilateral Throughout] Pulse Rate [ 84 From Monitor] Respiratory 13 11 L 15 Rate Respiratory 15 Rate [Bilateral Throughout] Blood Pressure 177/65 177/65 177/65 O2 Sat by Pulse 100 99 99 Oximetry 03/03/19 03/03/19 03/03/19 08:16 08:20 08:26 Temperature Pulse Rate 78 80 79 Pulse Rate [ Bilateral Throughout] Pulse Rate [ From Monitor] Respiratory 14 15 14 Rate Respiratory Rate [Bilateral Throughout] Blood Pressure 194/69 194/69 214/70 O2 Sat by Pulse 100 100 100 Oximetry 03/03/19 03/03/19 03/03/19 08:30 08:36 08:40 Temperature Pulse Rate 81 91 H 90 Pulse Rate [ Bilateral Throughout] Pulse Rate [ From Monitor] Respiratory 14 14 15 Rate Respiratory Rate [Bilateral Throughout] Blood Pressure 181/67 181/67 181/67 O2 Sat by Pulse 100 100 100 Oximetry 03/03/19 03/03/19 03/03/19 08:45 08:50 08:56 Temperature Pulse Rate 85 83 96 H Pulse Rate [ Bilateral Throughout] Pulse Rate [ From Monitor] Respiratory 14 14 20 Rate Respiratory Rate [Bilateral Throughout] Blood Pressure 201/66 200/66 135/68 O2 Sat by Pulse 98 99 100 Oximetry 03/03/19 03/03/19 03/03/19 09:00 09:06 09:10 Temperature Pulse Rate 82 88 105 H Pulse Rate [ Bilateral Throughout] Pulse Rate [ From Monitor] Respiratory 13 13 15 Rate Respiratory Rate [Bilateral Throughout] Blood Pressure 143/71 143/71 143/71 O2 Sat by Pulse 100 100 100 Oximetry 03/03/19 03/03/19 03/03/19 09:15 09:20 09:26 Temperature Pulse Rate 92 H 91 H 83 Pulse Rate [ Bilateral Throughout] Pulse Rate [ From Monitor] Respiratory 17 15 18 Rate Respiratory Rate [Bilateral Throughout] Blood Pressure 153/78 153/78 153/78 O2 Sat by Pulse 100 100 100 Oximetry 09/03/03/19 03/03/19 09:30 09:36 09:40 Temperature Pulse Rate 81 87 75 Pulse Rate [ Bilateral Throughout] Pulse Rate [ From Monitor] Respiratory 16 17 14 Rate Respiratory Rate [Bilateral Throughout] Blood Pressure 138/72 138/72 138/72 O2 Sat by Pulse 100 89 100 Oximetry 03/03/19 03/03/19 03/03/19 09:45 09:50 09:56 Temperature Pulse Rate 73 75 65 Pulse Rate [ Bilateral Throughout] Pulse Rate [ From Monitor] Respiratory 15 14 12 Rate Respiratory Rate [Bilateral Throughout] Blood Pressure 139/73 139/73 139/73 O2 Sat by Pulse 100 100 100 Oximetry 03/03/19 03/03/19 03/03/19 10:00 10:06 10:10 Temperature Pulse Rate 64 64 65 Pulse Rate [ Bilateral Throughout] Pulse Rate [ From Monitor] Respiratory 13 13 12 Rate Respiratory Rate [Bilateral Throughout] Blood Pressure 144/81 144/81 144/81 O2 Sat by Pulse 100 100 100 Oximetry 03/03/19 03/03/19 03/03/19 10:15 10:20 10:26 Temperature Pulse Rate 58 L 62 58 L Pulse Rate [ Bilateral Throughout] Pulse Rate [ From Monitor] Respiratory 12 13 13 Rate Respiratory Rate [Bilateral Throughout] Blood Pressure 136/94 136/94 136/94 O2 Sat by Pulse Oximetry 03/03/19 03/03/19 03/03/19 10:30 10:36 10:40 Temperature Pulse Rate 65 61 60 Pulse Rate [ Bilateral Throughout] Pulse Rate [ From Monitor] Respiratory 12 12 11 L Rate Respiratory Rate [Bilateral Throughout] Blood Pressure 145/63 145/63 145/63 O2 Sat by Pulse Oximetry 03/03/19 03/03/19 03/03/19 10:45 10:50 11:47 Temperature Pulse Rate 64 60 82 Pulse Rate [ Bilateral Throughout] Pulse Rate [ From Monitor] Respiratory 14 12 Rate Respiratory Rate [Bilateral Throughout] Blood Pressure 139/60 139/60 134/59 O2 Sat by Pulse Oximetry Constitutional: alert, other (critically ill on ventilator) ENT: other (old blood seen around trach site, mouth and nose) Neck: other (trach present and midline, old blood present around trach) Effort: normal Ascultation: Bilateral: clear Percussion: Bilateral: not dull Tactile fremitus: Bilateral: normal Cardiovascular: other (sinus tach) Gastrointestinal: normoactive bowel sounds, soft, non-tender Extremities: no cyanosis, no edema Neurologic: normal mental status, other (LUE weakness) Psychiatric: mood appropriate, affect normal CBC and BMP: 03/03/19 04:24 03/03/19 04:24 ABG, PT/INR, D-dimer: ABG POC ABG pH 7.398 (7.35-7.45) 03/03/19 05:10 POC ABG pCO2 39.2 (35-45) 03/03/19 05:10 POC ABG pO2 152 (80-105) H 03/03/19 05:10 POC ABG HCO3 24.2 (22-26 mml/L) 03/03/19 05:10 POC ABG Total CO2 25 (23-27mmol/L) 03/03/19 05:10 POC ABG O2 Sat 99 03/03/19 05:10 PT/INR, D-dimer PT 16.2 Sec. (12.2-14.9) H 02/28/19 10:18 INR 1.34 (0.87-1.13) H 02/28/19 10:18 Abnormal lab findings: Abnormal Labs 02/28/19 02/28/19 02/28/19 10:18 10:18 10:18 WBC 4.2 L RBC 2.62 L Hgb 8.1 L Hct 24.2 L RDW Plt Count 106 L Seg Neuts % (Manual) 86.0 H Lymphocytes % (Manual) 7.0 L Seg Neutrophils # Man Lymphocytes # (Manual) 0.3 L PT 16.2 H INR 1.34 H POC ABG pH POC ABG pCO2 POC ABG pO2 Sodium 152 H Chloride 117.6 H BUN 84 H Glucose 130 H POC Glucose Calcium 7.8 L AST 49 H Total Protein 5.0 L Albumin 2.0 L Crossmatch 02/28/19 02/28/19 02/28/19 10:18 15:11 15:58 WBC RBC Hgb 6.7 L Hct 20.0 L RDW Plt Count Seg Neuts % (Manual) Lymphocytes % (Manual) Seg Neutrophils # Man Lymphocytes # (Manual) PT INR POC ABG pH POC ABG pCO2 33.9 L POC ABG pO2 Sodium Chloride BUN Glucose POC Glucose Calcium AST Total Protein Albumin Crossmatch See Detail 02/28/19 03/01/19 03/01/19 22:34 03:34 05:49 WBC RBC Hgb 9.0 L Hct 26.8 L D RDW Plt Count Seg Neuts % (Manual) Lymphocytes % (Manual) Seg Neutrophils # Man Lymphocytes # (Manual) PT INR POC ABG pH POC ABG pCO2 POC ABG pO2 198 H Sodium 152 H Chloride 119.4 H BUN 95 H Glucose POC Glucose Calcium 7.7 L AST 49 H Total Protein 5.0 L Albumin 1.8 L Crossmatch 03/01/19 03/01/19 03/01/19 05:49 20:32 23:13 WBC RBC Hgb 7.5 L Hct 22.5 L RDW Plt Count Seg Neuts % (Manual) Lymphocytes % (Manual) Seg Neutrophils # Man Lymphocytes # (Manual) PT INR POC ABG pH POC ABG pCO2 POC ABG pO2 Sodium Chloride BUN Glucose POC Glucose 106 H 137 H Calcium AST Total Protein Albumin Crossmatch 03/02/19 03/02/19 03/02/19 03:16 04:41 05:43 WBC RBC 3.17 L Hgb 9.8 L Hct 28.4 L RDW 15.7 H Plt Count 120 L Seg Neuts % (Manual) Lymphocytes % (Manual) Seg Neutrophils # Man 0.0 L Lymphocytes # (Manual) 0.0 L PT INR POC ABG pH 7.337 L POC ABG pCO2 POC ABG pO2 128 H Sodium Chloride BUN Glucose POC Glucose 148 H Calcium AST Total Protein Albumin Crossmatch 03/02/19 03/02/19 03/02/19 05:48 18:15 21:17 WBC RBC Hgb Hct RDW Plt Count Seg Neuts % (Manual) Lymphocytes % (Manual) Seg Neutrophils # Man Lymphocytes # (Manual) PT INR POC ABG pH POC ABG pCO2 POC ABG pO2 Sodium Chloride BUN Glucose POC Glucose 121 H 129 H 135 H Calcium AST Total Protein Albumin Crossmatch 03/02/19 03/03/19 03/03/19 23:52 04:24 04:24 WBC 3.0 L RBC 2.93 L Hgb 8.9 L Hct 26.2 L RDW 15.9 H Plt Count 115 L Seg Neuts % (Manual) Lymphocytes % (Manual) Seg Neutrophils # Man Lymphocytes # (Manual) PT INR POC ABG pH POC ABG pCO2 POC ABG pO2 Sodium 149 H Chloride 116.8 H BUN 83 H Glucose 127 H POC Glucose 137 H Calcium 7.9 L AST Total Protein Albumin Crossmatch 03/03/19 03/03/19 05:10 05:45 WBC RBC Hgb Hct RDW Plt Count Seg Neuts % (Manual) Lymphocytes % (Manual) Seg Neutrophils # Man Lymphocytes # (Manual) PT INR POC ABG pH POC ABG pCO2 POC ABG pO2 152 H Sodium Chloride BUN Glucose POC Glucose 128 H Calcium AST Total Protein Albumin Crossmatch
[2019-03-03 12:44] LABS: Anisocytosis Few; Band Neutrophils # (Manual) 0.1 K/mm3; Basophils % (Manual) 0 % (0.0-1.8); Eosinophils % (Manual) 0 % (0.0-4.3); Hypochromasia Few; Poikilocytosis Few; Total Cells Counted 100
[2019-03-03 12:45] LABS: Ovalocytes Few; Platelet Estimate Consistent w Auto
[2019-03-03] MEDS: PERCOCET 5/325 FEEDTUBE PRN (18:03)
[2019-03-03] MEDS: LANTUS SUB-Q SCH (22:10)
[2019-03-04] MEDS: D5W 1,000 ML IV SCH ×2 (02:50→15:21)
[2019-03-04] MEDS: DUONEB *Not for PRN Use IH SCH ×4 (03:50→21:21)
[2019-03-04] MEDS: SYNTHROID PO SCH (05:08)
[2019-03-04] MEDS: HumuLIN R SUB-Q SCH ×3 (05:29→17:47)
[2019-03-04] MEDS: CARDIZEM PO SCH ×4 (05:39→23:42)
--- NOTE | 2019-03-04 08:24 | Progress Note ---
Assessment and Plan Assessment and plan: --Bleeding from tracheostomy site; resolved --Chronic respiratory failure on ventilatory support Pulmonary critical following, stable to be discharged back to LTAC --Symptomatic anemia; requiring blood transfusion, received 3 units Hemoglobin has improved --Severe malnutrition;hypoalbuminemia nutrition supplements and supportive care, Nutrition consult --Type 2 diabetes mellitus; check sliding scale coverage and ADA diet and insulin as needed --Hypernatremia; free water flushes, Closely monitor electrolytes --History of atrial fibrillation; rate controlled Continue current medications --Chronic anticoagulation: with Eliquis Eliquis is held because of bleeding. Consult cardiology if needed --DVT prophylaxis; SCDs Critical care time 31 minutes The high probability of a clinically significant, sudden or life threatening deterioration of the [respiratory, metabolic, cardiac, hematology] system(s) required my full and direct attention, intervention and personal management. The aggregate critical care time was [31] minutes. This time is in addition to time spent performing reported procedures but includes the following: [x] Data Review and interpretation [x] Patient assessment and monitoring of vital signs [x] Documentation [x] Medication orders and management Disposition; the patient is stable to transf back to LTAC History Interval history: Patient seen and examined medical records reviewed Patient is comfortable in no new complaints No bleeding from the tracheostomy site On ventilatory support Vital signs noted Hospitalist Physical - Constitutional Vitals: Temp Pulse Resp BP Pulse Ox 98 F 83 18 162/84 100 03/04/19 03:28 03/04/19 08:20 03/04/19 08:20 03/04/19 08:20 03/04/19 07:46 General appearance: Present: no acute distress, well-nourished, other ( tracheostomy on vent) - EENT Eyes: Present: PERRL, EOM intact - Neck Neck: Present: supple - Respiratory Respiratory effort: normal Respiratory: bilateral: diminished, negative: rales, rhonchi, wheezing - Cardiovascular Rhythm: regular Heart Sounds: Present: S1 & S2 - Extremities Extremities: no ischemia, No edema - Abdominal General gastrointestinal: soft, non-tender, non-distended, normal bowel sounds - Integumentary Integumentary: Present: clear, warm - Psychiatric Psychiatric: appropriate mood/affect, cooperative - Neurologic Neurologic: moves all extremities Results - Labs CBC & Chem 7: 03/03/19 04:24 03/03/19 04:24 Labs: Laboratory Last Values WBC 3.0 K/mm3 (4.5-11.0) L 03/03/19 04:24 RBC 2.93 M/mm3 (3.65-5.03) L 03/03/19 04:24 Hgb 8.9 gm/dl (10.1-14.3) L 03/03/19 04:24 Hct 26.2 % (30.3-42.9) L 03/03/19 04:24 MCV 89 fl (79-97) 03/03/19 04:24 MCH 30 pg (28-32) 03/03/19 04:24 MCHC 34 % (30-34) 03/03/19 04:24 RDW 15.9 % (13.2-15.2) H 03/03/19 04:24 Plt Count 115 K/mm3 (140-440) L 03/03/19 04:24 Eos % (Auto) Shot Blast Equipment Operator 03/02/19 05:43 Add Manual Diff Complete 03/03/19 04:24 Total Counted 100 03/03/19 04:24 Seg Neuts % (Manual) 62.0 % (40.0-70.0) 03/03/19 04:24 3.0 % 03/03/19 04:24 19.0 % (13.4-35.0) 03/03/19 04:24 Reactive Lymphs % (Man) 0 % 03/03/19 04:24 16.0 % (0.0-7.3) H 03/03/19 04:24 0 % (0.0-4.3) 03/03/19 04:24 0 % (0.0-1.8) 03/03/19 04:24 0 % 03/03/19 04:24 0 % 03/03/19 04:24 0 % 03/03/19 04:24 0 % 03/03/19 04:24 Nucleated RBC % Not Reportable 03/03/19 04:24 Seg Neutrophils # Man 1.9 K/mm3 (1.8-7.7) 03/03/19 04:24 Band Neutrophils # 0.1 K/mm3 03/03/19 04:24 0.6 K/mm3 (1.2-5.4) L 03/03/19 04:24 Abs React Lymphs (Man) 0.0 K/mm3 03/03/19 04:24 0.5 K/mm3 (0.0-0.8) 03/03/19 04:24 0.0 K/mm3 (0.0-0.4) 03/03/19 04:24 0.0 K/mm3 (0.0-0.1) 03/03/19 04:24 0.0 K/mm3 03/03/19 04:24 0.0 K/mm3 03/03/19 04:24 0.0 K/mm3 03/03/19 04:24 Blast Cells # 0.0 K/mm3 03/03/19 04:24 WBC Morphology Not Reportable 03/03/19 04:24 Hypersegmented Neuts Not Reportable 03/03/19 04:24 Hyposegmented Neuts Not Reportable 03/03/19 04:24 Hypogranular Neuts Not Reportable 03/03/19 04:24 Not Reportable 03/03/19 04:24 Not Reportable 03/03/19 04:24 Not Reportable 03/03/19 04:24 Not Reportable 03/03/19 04:24 Not Reportable 03/03/19 04:24 Not Reportable 03/03/19 04:24 Consistent w auto 03/03/19 04:24 Not Reportable 03/03/19 04:24 Plt Clumps, EDTA Not Reportable 03/03/19 04:24 Not Reportable 03/03/19 04:24 Not Reportable 03/03/19 04:24 Not Reportable 03/03/19 04:24 Plt Morphology Comment Not Reportable 03/03/19 04:24 RBC Morphology Not Reportable 03/03/19 04:24 Dimorphic RBCs Not Reportable 03/03/19 04:24 Not Reportable 03/03/19 04:24 Few 03/03/19 04:24 Few 03/03/19 04:24 Few 03/03/19 04:24 Not Reportable 03/03/19 04:24 Not Reportable 03/03/19 04:24 Not Reportable 03/03/19 04:24 Not Reportable 03/03/19 04:24 Not Reportable 03/03/19 04:24 Not Reportable 03/03/19 04:24 Not Reportable 03/03/19 04:24 Few 03/03/19 04:24 Not Reportable 03/03/19 04:24 Not Reportable 03/03/19 04:24 Not Reportable 03/03/19 04:24 Not Reportable 03/03/19 04:24 Not Reportable 03/03/19 04:24 Not Reportable 03/03/19 04:24 Not Reportable 03/03/19 04:24 Acanthocytes (Spur) Rare 03/03/19 04:24 Rouleaux Not Reportable 03/03/19 04:24 Not Reportable 03/03/19 04:24 Not Reportable 03/03/19 04:24 Not Reportable 03/03/19 04:24 Not Reportable 03/03/19 04:24 Hem Pathologist Commnt No 03/03/19 04:24 PT 16.2 Sec. (12.2-14.9) H 02/28/19 10:18 INR 1.34 (0.87-1.13) H 02/28/19 10:18 APTT 29.9 Sec. (24.2-36.6) 02/28/19 10:18 POC ABG pH 7.344 (7.35-7.45) L 03/03/19 18:57 POC ABG pCO2 39.5 (35-45) 03/03/19 18:57 POC ABG pO2 115 (80-105) H 03/03/19 18:57 POC ABG HCO3 21.5 (22-26 mml/L) 03/03/19 18:57 POC ABG Total CO2 23 (23-27mmol/L) 03/03/19 18:57 POC ABG O2 Sat 98 03/03/19 18:57 POC ABG Base Excess -4 ((-2) - (+3)mmol/L) 03/03/19 18:57 28 % 03/03/19 18:57 Sodium 149 mmol/L (137-145) H 03/03/19 04:24 Potassium 4.0 mmol/L (3.6-5.0) 03/03/19 04:24 Chloride 116.8 mmol/L (98-107) H 03/03/19 04:24 Carbon Dioxide 23 mmol/L (22-30) 03/03/19 04:24 13 mmol/L 03/03/19 04:24 BUN 83 mg/dL (7-17) H 03/03/19 04:24 0.8 mg/dL (0.7-1.2) 03/03/19 04:24 Estimated GFR > 60 ml/min 03/03/19 04:24 104 % 03/03/19 04:24 Glucose 127 mg/dL (65-100) H 03/03/19 04:24 POC Glucose 128 (70-105) H 03/04/19 05:35 5.8 % (4-6) 02/28/19 22:34 Calcium 7.9 mg/dL (8.4-10.2) L 03/03/19 04:24 0.50 mg/dL (0.1-1.2) 03/01/19 05:49 AST 49 units/L (5-40) H 03/01/19 05:49 ALT 16 units/L (7-56) 03/01/19 05:49 77 units/L (35-129) 03/01/19 05:49 5.0 g/dL (6.3-8.2) L 03/01/19 05:49 1.8 g/dL (3.9-5) L 03/01/19 05:49 0.6 % 03/01/19 05:49 Blood Type B POSITIVE 02/28/19 10:18 Antibody Screen Negative 02/28/19 10:18 Crossmatch See Detail 02/28/19 10:18 Active Medications - Current Medications Current Medications: Generic Name Dose Route Start Last Admin Trade Name Freq PRN Reason Stop Dose Admin Acetaminophen 650 mg 03/01/19 07:00 03/02/19 12:25 Tylenol PO 650 mg Q4H PRN Administration Pain MILD(1-3)/Fever >100.5/VALENZUELA Albuterol/Ipratropium 1 ampul 03/01/19 02:00 03/04/19 07:10 Duoneb *Not For Prn Use* IH 1 ampul Q6HRT AMOL Administration Lipase/Protease/Amylase 1 each 02/28/19 21:47 Pancreaze 10,500 Unit FEEDTUBE PRN PRN For Clogged Feeding Tube Dextrose 50 ml 02/28/19 22:42 D50w (25gm) Syringe IV PRN PRN Hypoglycemia Diltiazem HCl 60 mg 03/01/19 07:00 03/04/19 05:39 Cardizem PO 60 mg Q6HR AMOL Administration Folic Acid 1 mg 03/01/19 10:00 03/03/19 09:01 Folvite PO 1 mg QDAY AMOL Administration Hydralazine HCl 10 mg 03/02/19 09:49 03/03/19 07:38 Apresoline IV 10 mg Q4H PRN Administration Hypertension Hydromorphone HCl 0.25 mg 02/28/19 21:47 Dilaudid IV Q3H PRN Pain, Moderate (4-6) Dextrose 1,000 mls @ 75 mls/hr 03/03/19 02:00 03/04/19 02:50 D5w IV 75 mls/hr DIRECT AMOL Administration Insulin Glargine 15 units 03/01/19 22:00 03/03/19 22:10 Lantus SUB-Q 15 units QHS AMOL Administration Insulin Human Regular 0 units 03/01/19 00:00 03/04/19 05:29 Humulin R SUB-Q Not Given Q6HR [facility]–1983 Protocol Lansoprazole 30 mg 03/01/19 10:00 03/03/19 21:50 Prevacid Solutab FEEDTUBE 30 mg BID AMOL Administration Levothyroxine Sodium 125 mcg 03/01/19 06:00 03/04/19 05:08 Synthroid PO 125 mcg QAM@0600 AMOL Administration Lorazepam 1 mg 03/01/19 06:40 Ativan IV Q6H PRN Agitation Ondansetron HCl 4 mg 02/28/19 21:47 Zofran IV Q8H PRN Nausea And Vomiting Oxycodone/Acetaminophen 1 tab 03/01/19 06:40 03/03/19 18:03 Percocet 5/325 FEEDTUBE 1 tab Q6H PRN Administration Pain, Moderate (4-6) Prednisone 20 mg 03/01/19 10:00 03/03/19 09:02 Prednisone PO 20 mg QDAY AMOL Administration Psyllium Hydrophilic Mucilloid 1 each 03/01/19 10:00 03/03/19 09:00 Metamucil PO 1 each QDAY AMOL Administration Simple Syrup 15 ml 02/28/19 21:47 Simple Syrup FEEDTUBE PRN PRN Hypoglycemia Simple Syrup 30 ml 02/28/19 21:47 Simple Syrup FEEDTUBE PRN PRN Hypoglycemia Sodium Bicarbonate 325 mg 02/28/19 21:47 Sodium Bicarbonate FEEDTUBE PRN PRN For Clogged Feeding Tube Sodium Chloride 10 ml 02/28/19 22:00 03/03/19 22:11 Sodium Chloride Flush Syringe 10 Ml IV 10 ml BID AMOL Administration Sodium Chloride 10 ml 02/28/19 21:47 Sodium Chloride Flush Syringe 10 Ml IV PRN PRN LINE FLUSH Nutrition/Malnutrition Assess - Dietary Evaluation Nutrition/Malnutrition Findings: Nutrition Notes Start: 03/01/19 08:06 Freq: Status: Active Protocol: Document 03/02/19 08:59 LM (Rec: 03/02/19 09:10 LM [email or web address]) Nutrition Notes Initial or Follow up Reassessment Current Diagnosis Diabetes,Sepsis,Stroke Other Pertinent Diagnosis Pneumonia, AMS, s/p trach and PEG, trach bleeding Current Diet Promote 1.0 at 70 ml/hr Labs/Tests POC glu 121 Pertinent Medications Reviewed Height 5 ft 7 in Weight 90.4 kg [place] Body Weight (kg) 61.36 BMI 31.1 Weight change and time frame Wt change noted. [facility] Subjective/Other Information Promote running at 40 ml/hr. Pt remains on vent. Pt tolerating TF. Percent of energy/protein needs met: 55%/62% Burn Absent Trauma Absent Minimum of two criteria No #1 Nutrition Diagnosis Inadequate oral intake Diagnosis Progress(for reassessment Continues documentation) Is patient on ventilator? Yes Is Patient Ambulatory and/or Out of Bed No REE-([facility]-confined to bed) [phone] Calculation Used for Recommendations [facility] Additional Notes Protein: 97-163g (1.2-2g/kg) Fluid: 1 ml/kcal Nutrition Intervention Change Diet Order: Continue TF Nutrition Support: Promote 1.0 at 70 ml/hr Flush 50 ml q4hr Kcal 1,680 Protein (gm) 105 Fluid (mL) 1,410 Goal #1 Continue TF Goal #2 Meet at least 75% of energy and protein needs Anticipated Discharge Needs: TF Follow-Up By: 03/05/19 Additional Comments F/U for TF rate/tolerance
[2019-03-04] MEDS: PREVACID SOLUTAB FEEDTUBE SCH ×2 (09:39→21:55)
[2019-03-04] MEDS: METAMUCIL PO SCH (09:39)
[2019-03-04] MEDS: FOLVITE PO SCH (09:39)
[2019-03-04] MEDS: predniSONE PO SCH (09:39)
[2019-03-04] MEDS: SODIUM CHLORIDE FLUSH SYRINGE 10 ML IV SCH ×2 (10:15→22:10)
[2019-03-04] MEDS: PERCOCET 5/325 FEEDTUBE PRN (11:04)
--- NOTE | 2019-03-04 13:15 | Progress Note ---
Assessment and Plan p 1. Tracheal hemorrhage w/ acute blood loss anemia 2. A/C respiratory failure, hypoxia 3. Hypernatremia 4. s/p Trach/PEG 5. Recent CVA/Meningitis 6. Hx of Afib 7. Suspect left hilar mass Rec: 1. Patient placed on Eliquis at the time of d/c from prior admit due to afib/PFO; avoid OAC at this point 2. Monitor H/H 3. Continue with T piece, has adequate blood gases with mild metabolic acidosis 4. D5W and f/u BMP in AM re: hypernatremia 5. TFs, GI PPx, SCDs 6. CXR mentions the possibility of L hilar mass; recommend non-urgent CT chest w/o contrast 7. Okay to go back to [facility] Critical care time 31 minute Subjective Date of service: 03/04/19 Principal diagnosis: Acute/chronic respiratory failure Interval history: No further bleeding from the trach. Patient is off anticoagulants. Remain unresponsive off mechanical ventilator, on T piece tolerating well Objective Vital Signs - 12hr 03/04/19 03/04/19 03/04/19 01:16 01:20 01:26 Temperature Pulse Rate 77 77 74 Pulse Rate [ Bilateral Throughout] Pulse Rate [ From Monitor] Pulse Rate [ Left Dorsalis Pedis] Pulse Rate [ Right Dorsalis Pedis] Respiratory 18 19 18 Rate Respiratory Rate [Bilateral Throughout] Blood Pressure 151/77 151/77 151/77 O2 Sat by Pulse 100 100 100 Oximetry O2 Sat by Pulse Oximetry [ Assessment] 03/04/19 03/04/19 03/04/19 01:30 01:36 01:40 Temperature Pulse Rate 68 81 75 Pulse Rate [ Bilateral Throughout] Pulse Rate [ From Monitor] Pulse Rate [ Left Dorsalis Pedis] Pulse Rate [ Right Dorsalis Pedis] Respiratory 18 15 20 Rate Respiratory Rate [Bilateral Throughout] Blood Pressure 151/77 151/77 151/77 O2 Sat by Pulse 100 99 100 Oximetry O2 Sat by Pulse Oximetry [ Assessment] 03/04/19 03/04/19 03/04/19 01:46 01:50 01:56 Temperature Pulse Rate 73 77 70 Pulse Rate [ Bilateral Throughout] Pulse Rate [ From Monitor] Pulse Rate [ Left Dorsalis Pedis] Pulse Rate [ Right Dorsalis Pedis] Respiratory 18 19 16 Rate Respiratory Rate [Bilateral Throughout] Blood Pressure 151/77 151/77 151/77 O2 Sat by Pulse 100 100 100 Oximetry O2 Sat by Pulse Oximetry [ Assessment] 03/04/19 03/04/19 03/04/19 02:00 02:06 02:10 Temperature Pulse Rate 71 79 70 Pulse Rate [ Bilateral Throughout] Pulse Rate [ From Monitor] Pulse Rate [ Left Dorsalis Pedis] Pulse Rate [ Right Dorsalis Pedis] Respiratory 19 20 19 Rate Respiratory Rate [Bilateral Throughout] Blood Pressure 137/68 137/68 137/68 O2 Sat by Pulse 99 100 100 Oximetry O2 Sat by Pulse Oximetry [ Assessment] 03/04/19 03/04/19 03/04/19 02:16 02:20 02:26 Temperature Pulse Rate 89 70 71 Pulse Rate [ Bilateral Throughout] Pulse Rate [ From Monitor] Pulse Rate [ Left Dorsalis Pedis] Pulse Rate [ Right Dorsalis Pedis] Respiratory 14 20 19 Rate Respiratory Rate [Bilateral Throughout] Blood Pressure 137/68 137/68 137/68 O2 Sat by Pulse 100 100 100 Oximetry O2 Sat by Pulse Oximetry [ Assessment] 03/04/19 03/04/19 03/04/19 02:30 02:36 02:40 Temperature Pulse Rate 67 68 78 Pulse Rate [ Bilateral Throughout] Pulse Rate [ From Monitor] Pulse Rate [ Left Dorsalis Pedis] Pulse Rate [ Right Dorsalis Pedis] Respiratory 19 18 20 Rate Respiratory Rate [Bilateral Throughout] Blood Pressure 137/68 137/68 137/68 O2 Sat by Pulse 100 100 100 Oximetry O2 Sat by Pulse Oximetry [ Assessment] 03/04/19 03/04/19 03/04/19 02:46 02:50 02:56 Temperature Pulse Rate 72 63 65 Pulse Rate [ Bilateral Throughout] Pulse Rate [ From Monitor] Pulse Rate [ Left Dorsalis Pedis] Pulse Rate [ Right Dorsalis Pedis] Respiratory 20 19 19 Rate Respiratory Rate [Bilateral Throughout] Blood Pressure 137/68 137/68 137/68 O2 Sat by Pulse 100 100 100 Oximetry O2 Sat by Pulse Oximetry [ Assessment] 03/04/19 03/04/19 03/04/19 03:00 03:06 03:10 Temperature Pulse Rate 75 69 67 Pulse Rate [ Bilateral Throughout] Pulse Rate [ From Monitor] Pulse Rate [ Left Dorsalis Pedis] Pulse Rate [ Right Dorsalis Pedis] Respiratory 17 19 18 Rate Respiratory Rate [Bilateral Throughout] Blood Pressure 133/68 133/68 133/68 O2 Sat by Pulse 100 100 100 Oximetry O2 Sat by Pulse Oximetry [ Assessment] 03/04/19 03/04/19 03/04/19 03:16 03:20 03:26 Temperature Pulse Rate 72 68 76 Pulse Rate [ Bilateral Throughout] Pulse Rate [ From Monitor] Pulse Rate [ Left Dorsalis Pedis] Pulse Rate [ Right Dorsalis Pedis] Respiratory 19 18 20 Rate Respiratory Rate [Bilateral Throughout] Blood Pressure 133/68 133/68 133/68 O2 Sat by Pulse 100 100 100 Oximetry O2 Sat by Pulse Oximetry [ Assessment] 03/04/19 03/04/19 03/04/19 03:28 03:30 03:36 Temperature 98 F Pulse Rate 67 77 Pulse Rate [ Bilateral Throughout] Pulse Rate [ From Monitor] Pulse Rate [ Left Dorsalis Pedis] Pulse Rate [ Right Dorsalis Pedis] Respiratory 18 17 Rate Respiratory Rate [Bilateral Throughout] Blood Pressure 133/68 133/68 O2 Sat by Pulse 100 100 Oximetry O2 Sat by Pulse Oximetry [ Assessment] 03/04/19 03/04/19 03/04/19 03:40 03:46 03:50 Temperature Pulse Rate 67 71 72 Pulse Rate [ 76 Bilateral Throughout] Pulse Rate [ From Monitor] Pulse Rate [ Left Dorsalis Pedis] Pulse Rate [ Right Dorsalis Pedis] Respiratory 17 20 20 Rate Respiratory 18 Rate [Bilateral Throughout] Blood Pressure 133/68 133/68 133/68 O2 Sat by Pulse 100 99 100 Oximetry O2 Sat by Pulse 100 Oximetry [ Assessment] 03/04/19 03/04/19 03/04/19 03:56 04:00 04:06 Temperature Pulse Rate 71 76 77 Pulse Rate [ Bilateral Throughout] Pulse Rate [ 80 From Monitor] Pulse Rate [ 80 Left Dorsalis Pedis] Pulse Rate [ 80 Right Dorsalis Pedis] Respiratory 20 20 21 Rate Respiratory Rate [Bilateral Throughout] Blood Pressure 133/68 141/71 141/71 O2 Sat by Pulse 100 100 100 Oximetry O2 Sat by Pulse Oximetry [ Assessment] 03/04/19 03/04/19 03/04/19 04:10 04:16 04:20 Temperature Pulse Rate 64 78 75 Pulse Rate [ Bilateral Throughout] Pulse Rate [ From Monitor] Pulse Rate [ Left Dorsalis Pedis] Pulse Rate [ Right Dorsalis Pedis] Respiratory 17 18 18 Rate Respiratory Rate [Bilateral Throughout] Blood Pressure 141/71 141/71 141/71 O2 Sat by Pulse 100 100 97 Oximetry O2 Sat by Pulse Oximetry [ Assessment] 03/04/19 03/04/19 03/04/19 04:26 04:30 04:36 Temperature Pulse Rate 64 69 61 Pulse Rate [ Bilateral Throughout] Pulse Rate [ From Monitor] Pulse Rate [ Left Dorsalis Pedis] Pulse Rate [ Right Dorsalis Pedis] Respiratory 16 16 16 Rate Respiratory Rate [Bilateral Throughout] Blood Pressure 141/71 141/71 141/71 O2 Sat by Pulse 100 100 100 Oximetry O2 Sat by Pulse Oximetry [ Assessment] 03/04/19 03/04/19 03/04/19 04:40 04:46 04:50 Temperature Pulse Rate 66 62 66 Pulse Rate [ Bilateral Throughout] Pulse Rate [ From Monitor] Pulse Rate [ Left Dorsalis Pedis] Pulse Rate [ Right Dorsalis Pedis] Respiratory 15 16 16 Rate Respiratory Rate [Bilateral Throughout] Blood Pressure 141/71 141/71 141/71 O2 Sat by Pulse 100 100 100 Oximetry O2 Sat by Pulse Oximetry [ Assessment] 03/04/19 03/04/19 03/04/19 04:56 05:00 05:06 Temperature Pulse Rate 73 76 75 Pulse Rate [ Bilateral Throughout] Pulse Rate [ From Monitor] Pulse Rate [ Left Dorsalis Pedis] Pulse Rate [ Right Dorsalis Pedis] Respiratory 16 18 17 Rate Respiratory Rate [Bilateral Throughout] Blood Pressure 141/71 142/72 142/72 O2 Sat by Pulse 100 100 100 Oximetry O2 Sat by Pulse Oximetry [ Assessment] 03/04/19 03/04/19 03/04/19 05:10 05:16 05:20 Temperature Pulse Rate 69 81 Pulse Rate [ Bilateral Throughout] Pulse Rate [ From Monitor] Pulse Rate [ Left Dorsalis Pedis] Pulse Rate [ Right Dorsalis Pedis] Respiratory 16 19 Rate Respiratory Rate [Bilateral Throughout] Blood Pressure 142/72 142/72 142/72 O2 Sat by Pulse 100 98 96 Oximetry O2 Sat by Pulse Oximetry [ Assessment] 03/04/19 03/04/19 03/04/19 05:26 05:30 05:36 Temperature Pulse Rate 76 74 Pulse Rate [ Bilateral Throughout] Pulse Rate [ From Monitor] Pulse Rate [ Left Dorsalis Pedis] Pulse Rate [ Right Dorsalis Pedis] Respiratory 19 18 Rate Respiratory Rate [Bilateral Throughout] Blood Pressure 142/72 142/72 142/72 O2 Sat by Pulse 100 100 100 Oximetry O2 Sat by Pulse Oximetry [ Assessment] 03/04/19 03/04/19 03/04/19 05:39 05:40 05:46 Temperature Pulse Rate 79 74 74 Pulse Rate [ Bilateral Throughout] Pulse Rate [ From Monitor] Pulse Rate [ Left Dorsalis Pedis] Pulse Rate [ Right Dorsalis Pedis] Respiratory 16 16 Rate Respiratory Rate [Bilateral Throughout] Blood Pressure 142/72 142/72 142/72 O2 Sat by Pulse 100 100 Oximetry O2 Sat by Pulse Oximetry [ Assessment] 03/04/19 03/04/19 03/04/19 05:50 05:56 06:00 Temperature Pulse Rate 73 75 77 Pulse Rate [ Bilateral Throughout] Pulse Rate [ From Monitor] Pulse Rate [ Left Dorsalis Pedis] Pulse Rate [ Right Dorsalis Pedis] Respiratory 18 15 16 Rate Respiratory Rate [Bilateral Throughout] Blood Pressure 142/72 142/72 160/83 O2 Sat by Pulse 100 100 100 Oximetry O2 Sat by Pulse Oximetry [ Assessment] 03/04/19 03/04/19 03/04/19 06:06 06:10 06:16 Temperature Pulse Rate 77 76 75 Pulse Rate [ Bilateral Throughout] Pulse Rate [ From Monitor] Pulse Rate [ Left Dorsalis Pedis] Pulse Rate [ Right Dorsalis Pedis] Respiratory 17 16 19 Rate Respiratory Rate [Bilateral Throughout] Blood Pressure 160/83 160/83 160/83 O2 Sat by Pulse 100 100 100 Oximetry O2 Sat by Pulse Oximetry [ Assessment] 03/04/19 03/04/19 03/04/19 06:20 06:26 06:30 Temperature Pulse Rate 73 75 92 H Pulse Rate [ Bilateral Throughout] Pulse Rate [ From Monitor] Pulse Rate [ Left Dorsalis Pedis] Pulse Rate [ Right Dorsalis Pedis] Respiratory 16 17 19 Rate Respiratory Rate [Bilateral Throughout] Blood Pressure 160/83 160/83 160/83 O2 Sat by Pulse 100 100 100 Oximetry O2 Sat by Pulse Oximetry [ Assessment] 03/04/19 03/04/19 03/04/19 06:36 06:40 06:46 Temperature Pulse Rate 76 72 82 Pulse Rate [ Bilateral Throughout] Pulse Rate [ From Monitor] Pulse Rate [ Left Dorsalis Pedis] Pulse Rate [ Right Dorsalis Pedis] Respiratory 18 17 17 Rate Respiratory Rate [Bilateral Throughout] Blood Pressure 160/83 160/83 160/83 O2 Sat by Pulse 100 100 100 Oximetry O2 Sat by Pulse Oximetry [ Assessment] 03/04/19 03/04/19 03/04/19 06:50 06:56 07:00 Temperature Pulse Rate 82 82 77 Pulse Rate [ Bilateral Throughout] Pulse Rate [ From Monitor] Pulse Rate [ Left Dorsalis Pedis] Pulse Rate [ Right Dorsalis Pedis] Respiratory 16 17 16 Rate Respiratory Rate [Bilateral Throughout] Blood Pressure 160/83 160/83 164/84 O2 Sat by Pulse 99 100 100 Oximetry O2 Sat by Pulse Oximetry [ Assessment] 03/04/19 03/04/19 03/04/19 07:06 07:10 07:16 Temperature Pulse Rate 83 87 82 Pulse Rate [ 83 Bilateral Throughout] Pulse Rate [ From Monitor] Pulse Rate [ Left Dorsalis Pedis] Pulse Rate [ Right Dorsalis Pedis] Respiratory 16 31 H 19 Rate Respiratory 20 Rate [Bilateral Throughout] Blood Pressure 164/84 162/84 162/84 O2 Sat by Pulse 100 98 96 Oximetry O2 Sat by Pulse 99 Oximetry [ Assessment] 03/04/19 03/04/19 03/04/19 07:20 07:26 07:30 Temperature Pulse Rate 81 75 80 Pulse Rate [ Bilateral Throughout] Pulse Rate [ From Monitor] Pulse Rate [ Left Dorsalis Pedis] Pulse Rate [ Right Dorsalis Pedis] Respiratory 18 17 19 Rate Respiratory Rate [Bilateral Throughout] Blood Pressure 162/84 162/84 162/84 O2 Sat by Pulse Oximetry O2 Sat by Pulse Oximetry [ Assessment] 03/04/19 03/04/19 03/04/19 07:36 07:40 07:46 Temperature Pulse Rate 75 85 82 Pulse Rate [ Bilateral Throughout] Pulse Rate [ From Monitor] Pulse Rate [ Left Dorsalis Pedis] Pulse Rate [ Right Dorsalis Pedis] Respiratory 18 20 18 Rate Respiratory Rate [Bilateral Throughout] Blood Pressure 162/84 162/84 162/84 O2 Sat by Pulse 100 Oximetry O2 Sat by Pulse Oximetry [ Assessment] 03/04/19 03/04/19 03/04/19 07:50 07:56 08:00 Temperature 98.3 F Pulse Rate 80 82 85 Pulse Rate [ Bilateral Throughout] Pulse Rate [ 85 From Monitor] Pulse Rate [ 85 Left Dorsalis Pedis] Pulse Rate [ 85 Right Dorsalis Pedis] Respiratory 17 18 16 Rate Respiratory Rate [Bilateral Throughout] Blood Pressure 162/84 162/84 154/90 O2 Sat by Pulse 100 Oximetry O2 Sat by Pulse Oximetry [ Assessment] 03/04/19 03/04/19 03/04/19 08:06 08:10 08:16 Temperature Pulse Rate 84 83 83 Pulse Rate [ Bilateral Throughout] Pulse Rate [ From Monitor] Pulse Rate [ Left Dorsalis Pedis] Pulse Rate [ Right Dorsalis Pedis] Respiratory 15 17 14 Rate Respiratory Rate [Bilateral Throughout] Blood Pressure 162/84 162/84 162/84 O2 Sat by Pulse Oximetry O2 Sat by Pulse Oximetry [ Assessment] 03/04/19 03/04/19 03/04/19 08:20 08:26 08:30 Temperature Pulse Rate 83 81 81 Pulse Rate [ Bilateral Throughout] Pulse Rate [ From Monitor] Pulse Rate [ Left Dorsalis Pedis] Pulse Rate [ Right Dorsalis Pedis] Respiratory 18 20 19 Rate Respiratory Rate [Bilateral Throughout] Blood Pressure 162/84 162/84 162/84 O2 Sat by Pulse Oximetry O2 Sat by Pulse Oximetry [ Assessment] 03/04/19 03/04/19 03/04/19 08:36 08:40 08:46 Temperature Pulse Rate 83 85 85 Pulse Rate [ Bilateral Throughout] Pulse Rate [ From Monitor] Pulse Rate [ Left Dorsalis Pedis] Pulse Rate [ Right Dorsalis Pedis] Respiratory 19 22 20 Rate Respiratory Rate [Bilateral Throughout] Blood Pressure 154/90 154/90 154/90 O2 Sat by Pulse Oximetry O2 Sat by Pulse Oximetry [ Assessment] 03/04/19 03/04/19 03/04/19 08:50 08:56 09:00 Temperature Pulse Rate 85 99 H 82 Pulse Rate [ Bilateral Throughout] Pulse Rate [ From Monitor] Pulse Rate [ Left Dorsalis Pedis] Pulse Rate [ Right Dorsalis Pedis] Respiratory 16 16 20 Rate Respiratory Rate [Bilateral Throughout] Blood Pressure 154/90 154/90 159/84 O2 Sat by Pulse Oximetry O2 Sat by Pulse Oximetry [ Assessment] 03/04/19 03/04/19 03/04/19 09:06 09:10 09:16 Temperature Pulse Rate 89 84 90 Pulse Rate [ Bilateral Throughout] Pulse Rate [ From Monitor] Pulse Rate [ Left Dorsalis Pedis] Pulse Rate [ Right Dorsalis Pedis] Respiratory 18 19 13 Rate Respiratory Rate [Bilateral Throughout] Blood Pressure 159/84 159/84 159/84 O2 Sat by Pulse Oximetry O2 Sat by Pulse Oximetry [ Assessment] 03/04/19 03/04/19 03/04/19 09:20 09:26 09:30 Temperature Pulse Rate 85 87 87 Pulse Rate [ Bilateral Throughout] Pulse Rate [ From Monitor] Pulse Rate [ Left Dorsalis Pedis] Pulse Rate [ Right Dorsalis Pedis] Respiratory 20 18 19 Rate Respiratory Rate [Bilateral Throughout] Blood Pressure 159/84 159/84 159/84 O2 Sat by Pulse Oximetry O2 Sat by Pulse Oximetry [ Assessment] 03/04/19 03/04/19 03/04/19 09:36 09:40 09:46 Temperature Pulse Rate 88 90 89 Pulse Rate [ Bilateral Throughout] Pulse Rate [ From Monitor] Pulse Rate [ Left Dorsalis Pedis] Pulse Rate [ Right Dorsalis Pedis] Respiratory 20 15 22 Rate Respiratory Rate [Bilateral Throughout] Blood Pressure 159/84 159/84 159/84 O2 Sat by Pulse Oximetry O2 Sat by Pulse Oximetry [ Assessment] 03/04/19 03/04/19 03/04/19 09:50 09:56 10:00 Temperature Pulse Rate 86 87 87 Pulse Rate [ Bilateral Throughout] Pulse Rate [ From Monitor] Pulse Rate [ Left Dorsalis Pedis] Pulse Rate [ Right Dorsalis Pedis] Respiratory 28 H 24 25 H Rate Respiratory Rate [Bilateral Throughout] Blood Pressure 159/84 159/84 169/90 O2 Sat by Pulse Oximetry O2 Sat by Pulse Oximetry [ Assessment] 03/04/19 03/04/19 03/04/19 10:06 10:10 10:16 Temperature Pulse Rate 83 84 85 Pulse Rate [ Bilateral Throughout] Pulse Rate [ From Monitor] Pulse Rate [ Left Dorsalis Pedis] Pulse Rate [ Right Dorsalis Pedis] Respiratory 22 20 21 Rate Respiratory Rate [Bilateral Throughout] Blood Pressure 169/90 159/84 159/84 O2 Sat by Pulse Oximetry O2 Sat by Pulse Oximetry [ Assessment] 03/04/19 03/04/19 03/04/19 10:20 10:26 10:30 Temperature Pulse Rate 91 H 86 85 Pulse Rate [ Bilateral Throughout] Pulse Rate [ From Monitor] Pulse Rate [ Left Dorsalis Pedis] Pulse Rate [ Right Dorsalis Pedis] Respiratory 22 21 22 Rate Respiratory Rate [Bilateral Throughout] Blood Pressure 159/84 159/84 159/84 O2 Sat by Pulse Oximetry O2 Sat by Pulse Oximetry [ Assessment] 03/04/19 03/04/19 03/04/19 10:36 10:40 10:46 Temperature Pulse Rate 85 95 H 96 H Pulse Rate [ Bilateral Throughout] Pulse Rate [ From Monitor] Pulse Rate [ Left Dorsalis Pedis] Pulse Rate [ Right Dorsalis Pedis] Respiratory 21 22 25 H Rate Respiratory Rate [Bilateral Throughout] Blood Pressure 159/84 169/90 169/90 O2 Sat by Pulse Oximetry O2 Sat by Pulse Oximetry [ Assessment] 03/04/19 03/04/19 03/04/19 10:50 10:55 11:00 Temperature Pulse Rate 89 94 H 82 Pulse Rate [ Bilateral Throughout] Pulse Rate [ From Monitor] Pulse Rate [ Left Dorsalis Pedis] Pulse Rate [ Right Dorsalis Pedis] Respiratory 20 24 23 Rate Respiratory Rate [Bilateral Throughout] Blood Pressure 161/92 161/92 156/83 O2 Sat by Pulse 100 100 100 Oximetry O2 Sat by Pulse Oximetry [ Assessment] 03/04/19 03/04/19 03/04/19 11:04 11:06 11:10 Temperature Pulse Rate 79 77 73 Pulse Rate [ Bilateral Throughout] Pulse Rate [ From Monitor] Pulse Rate [ Left Dorsalis Pedis] Pulse Rate [ Right Dorsalis Pedis] Respiratory 18 20 Rate Respiratory Rate [Bilateral Throughout] Blood Pressure 156/83 156/83 156/83 O2 Sat by Pulse 100 100 Oximetry O2 Sat by Pulse Oximetry [ Assessment] 03/04/19 03/04/19 03/04/19 11:16 11:20 11:26 Temperature Pulse Rate 72 68 68 Pulse Rate [ Bilateral Throughout] Pulse Rate [ From Monitor] Pulse Rate [ Left Dorsalis Pedis] Pulse Rate [ Right Dorsalis Pedis] Respiratory 18 18 18 Rate Respiratory Rate [Bilateral Throughout] Blood Pressure 156/83 156/83 156/83 O2 Sat by Pulse 100 100 100 Oximetry O2 Sat by Pulse Oximetry [ Assessment] 03/04/19 03/04/19 03/04/19 11:30 11:36 11:40 Temperature Pulse Rate 68 67 69 Pulse Rate [ Bilateral Throughout] Pulse Rate [ From Monitor] Pulse Rate [ Left Dorsalis Pedis] Pulse Rate [ Right Dorsalis Pedis] Respiratory 17 18 17 Rate Respiratory Rate [Bilateral Throughout] Blood Pressure 153/79 153/79 153/79 O2 Sat by Pulse 100 100 98 Oximetry O2 Sat by Pulse Oximetry [ Assessment] 03/04/19 03/04/19 03/04/19 11:46 11:50 11:56 Temperature Pulse Rate 70 72 68 Pulse Rate [ Bilateral Throughout] Pulse Rate [ From Monitor] Pulse Rate [ Left Dorsalis Pedis] Pulse Rate [ Right Dorsalis Pedis] Respiratory 17 18 18 Rate Respiratory Rate [Bilateral Throughout] Blood Pressure 153/79 153/79 153/79 O2 Sat by Pulse 100 99 100 Oximetry O2 Sat by Pulse Oximetry [ Assessment] 03/04/19 12:00 Temperature Pulse Rate 72 Pulse Rate [ Bilateral Throughout] Pulse Rate [ 67 From Monitor] Pulse Rate [ 67 Left Dorsalis Pedis] Pulse Rate [ 67 Right Dorsalis Pedis] Respiratory 19 Rate Respiratory Rate [Bilateral Throughout] Blood Pressure 152/79 O2 Sat by Pulse 100 Oximetry O2 Sat by Pulse Oximetry [ Assessment] Constitutional: alert, other (critically ill on ventilator) ENT: other (old blood seen around trach site, mouth and nose) Neck: other (trach present and midline, old blood present around trach) Effort: normal Ascultation: Bilateral: clear Percussion: Bilateral: not dull Tactile fremitus: Bilateral: normal Cardiovascular: other (sinus tach) Gastrointestinal: normoactive bowel sounds, soft, non-tender Extremities: no cyanosis, no edema Neurologic: normal mental status, other (LUE weakness) Psychiatric: mood appropriate, affect normal CBC and BMP: 03/03/19 04:24 03/03/19 04:24 ABG, PT/INR, D-dimer: ABG POC ABG pH 7.344 (7.35-7.45) L 03/03/19 18:57 POC ABG pCO2 39.5 (35-45) 03/03/19 18:57 POC ABG pO2 115 (80-105) H 03/03/19 18:57 POC ABG HCO3 21.5 (22-26 mml/L) 03/03/19 18:57 POC ABG Total CO2 23 (23-27mmol/L) 03/03/19 18:57 POC ABG O2 Sat 98 03/03/19 18:57 PT/INR, D-dimer PT 16.2 Sec. (12.2-14.9) H 02/28/19 10:18 INR 1.34 (0.87-1.13) H 02/28/19 10:18 Abnormal lab findings: Abnormal Labs 02/28/19 02/28/19 02/28/19 10:18 10:18 10:18 WBC 4.2 L RBC 2.62 L Hgb 8.1 L Hct 24.2 L RDW Plt Count 106 L Seg Neuts % (Manual) 86.0 H Lymphocytes % (Manual) 7.0 L Monocytes % (Manual) Seg Neutrophils # Man Lymphocytes # (Manual) 0.3 L PT 16.2 H INR 1.34 H POC ABG pH POC ABG pCO2 POC ABG pO2 Sodium 152 H Chloride 117.6 H BUN 84 H Glucose 130 H POC Glucose Calcium 7.8 L AST 49 H Total Protein 5.0 L Albumin 2.0 L Crossmatch 02/28/19 02/28/19 02/28/19 10:18 15:11 15:58 WBC RBC Hgb 6.7 L Hct 20.0 L RDW Plt Count Seg Neuts % (Manual) Lymphocytes % (Manual) Monocytes % (Manual) Seg Neutrophils # Man Lymphocytes # (Manual) PT INR POC ABG pH POC ABG pCO2 33.9 L POC ABG pO2 Sodium Chloride BUN Glucose POC Glucose Calcium AST Total Protein Albumin Crossmatch See Detail 02/28/19 03/01/19 03/01/19 22:34 03:34 05:49 WBC RBC Hgb 9.0 L Hct 26.8 L D RDW Plt Count Seg Neuts % (Manual) Lymphocytes % (Manual) Monocytes % (Manual) Seg Neutrophils # Man Lymphocytes # (Manual) PT INR POC ABG pH POC ABG pCO2 POC ABG pO2 198 H Sodium 152 H Chloride 119.4 H BUN 95 H Glucose POC Glucose Calcium 7.7 L AST 49 H Total Protein 5.0 L Albumin 1.8 L Crossmatch 03/01/19 03/01/19 03/01/19 05:49 20:32 23:13 WBC RBC Hgb 7.5 L Hct 22.5 L RDW Plt Count Seg Neuts % (Manual) Lymphocytes % (Manual) Monocytes % (Manual) Seg Neutrophils # Man Lymphocytes # (Manual) PT INR POC ABG pH POC ABG pCO2 POC ABG pO2 Sodium Chloride BUN Glucose POC Glucose 106 H 137 H Calcium AST Total Protein Albumin Crossmatch 03/02/19 03/02/19 03/02/19 03:16 04:41 05:43 WBC RBC 3.17 L Hgb 9.8 L Hct 28.4 L RDW 15.7 H Plt Count 120 L Seg Neuts % (Manual) Lymphocytes % (Manual) Monocytes % (Manual) Seg Neutrophils # Man 0.0 L Lymphocytes # (Manual) 0.0 L PT INR POC ABG pH 7.337 L POC ABG pCO2 POC ABG pO2 128 H Sodium Chloride BUN Glucose POC Glucose 148 H Calcium AST Total Protein Albumin Crossmatch 03/02/19 03/02/19 03/02/19 05:48 18:15 21:17 WBC RBC Hgb Hct RDW Plt Count Seg Neuts % (Manual) Lymphocytes % (Manual) Monocytes % (Manual) Seg Neutrophils # Man Lymphocytes # (Manual) PT INR POC ABG pH POC ABG pCO2 POC ABG pO2 Sodium Chloride BUN Glucose POC Glucose 121 H 129 H 135 H Calcium AST Total Protein Albumin Crossmatch 03/02/19 03/03/19 03/03/19 23:52 04:24 04:24 WBC 3.0 L RBC 2.93 L Hgb 8.9 L Hct 26.2 L RDW 15.9 H Plt Count 115 L Seg Neuts % (Manual) Lymphocytes % (Manual) Monocytes % (Manual) 16.0 H Seg Neutrophils # Man Lymphocytes # (Manual) 0.6 L PT INR POC ABG pH POC ABG pCO2 POC ABG pO2 Sodium 149 H Chloride 116.8 H BUN 83 H Glucose 127 H POC Glucose 137 H Calcium 7.9 L AST Total Protein Albumin Crossmatch 03/03/19 03/03/19 03/03/19 05:10 05:45 13:24 WBC RBC Hgb Hct RDW Plt Count Seg Neuts % (Manual) Lymphocytes % (Manual) Monocytes % (Manual) Seg Neutrophils # Man Lymphocytes # (Manual) PT INR POC ABG pH POC ABG pCO2 POC ABG pO2 152 H 144 H Sodium Chloride BUN Glucose POC Glucose 128 H Calcium AST Total Protein Albumin Crossmatch 03/03/19 03/03/19 03/04/19 18:05 18:57 00:09 WBC RBC Hgb Hct RDW Plt Count Seg Neuts % (Manual) Lymphocytes % (Manual) Monocytes % (Manual) Seg Neutrophils # Man Lymphocytes # (Manual) PT INR POC ABG pH 7.344 L POC ABG pCO2 POC ABG pO2 115 H Sodium Chloride BUN Glucose POC Glucose 194 H 139 H Calcium AST Total Protein Albumin Crossmatch 03/04/19 03/04/19 05:35 11:57 WBC RBC Hgb Hct RDW Plt Count Seg Neuts % (Manual) Lymphocytes % (Manual) Monocytes % (Manual) Seg Neutrophils # Man Lymphocytes # (Manual) PT INR POC ABG pH POC ABG pCO2 POC ABG pO2 Sodium Chloride BUN Glucose POC Glucose 128 H 154 H Calcium AST Total Protein Albumin Crossmatch
[2019-03-04] MEDS: LANTUS SUB-Q SCH (23:41)
[2019-03-05] MEDS: HumuLIN R SUB-Q SCH ×4 (01:32→17:30)
[2019-03-05] MEDS: DUONEB *Not for PRN Use IH SCH ×4 (03:38→20:46)
[2019-03-05] MEDS: CARDIZEM PO SCH ×4 (05:29→23:34)
[2019-03-05] MEDS: SYNTHROID PO SCH (05:31)
--- NOTE | 2019-03-05 08:38 | Progress Note ---
Assessment and Plan - Patient Problems (1) Anemia Current Visit: Yes Status: Acute (2) Thrombocytopenia Current Visit: Yes Status: Acute (3) Tracheal hemorrhage Current Visit: Yes Status: Acute (4) Acute respiratory failure Current Visit: No Status: Acute (5) Encephalopathy Current Visit: No Status: Acute (6) Hypokalemia Current Visit: No Status: Acute Subjective Principal diagnosis: Acute/chronic respiratory failure Interval history: awake on tpiece mother at bedside Objective Vital Signs - 12hr 03/04/19 03/04/19 03/04/19 20:40 20:46 20:50 Temperature Pulse Rate 73 75 77 Pulse Rate [ Bilateral Throughout] Pulse Rate [ From Monitor] Pulse Rate [ Left Dorsalis Pedis] Pulse Rate [ Right Dorsalis Pedis] Respiratory 20 18 18 Rate Respiratory Rate [Bilateral Throughout] Blood Pressure 145/74 145/74 145/74 O2 Sat by Pulse 100 100 100 Oximetry O2 Sat by Pulse Oximetry [ Assessment] 03/04/19 03/04/19 03/04/19 20:56 21:00 21:06 Temperature Pulse Rate 102 H 75 74 Pulse Rate [ Bilateral Throughout] Pulse Rate [ From Monitor] Pulse Rate [ Left Dorsalis Pedis] Pulse Rate [ Right Dorsalis Pedis] Respiratory 16 19 19 Rate Respiratory Rate [Bilateral Throughout] Blood Pressure 145/74 145/70 145/70 O2 Sat by Pulse 100 100 100 Oximetry O2 Sat by Pulse Oximetry [ Assessment] 03/04/19 03/04/19 03/04/19 21:10 21:16 21:17 Temperature Pulse Rate 72 79 Pulse Rate [ Bilateral Throughout] Pulse Rate [ From Monitor] Pulse Rate [ Left Dorsalis Pedis] Pulse Rate [ Right Dorsalis Pedis] Respiratory 16 18 Rate Respiratory Rate [Bilateral Throughout] Blood Pressure 145/70 145/70 O2 Sat by Pulse 100 100 99 Oximetry O2 Sat by Pulse Oximetry [ Assessment] 03/04/19 03/04/19 03/04/19 21:20 21:26 21:30 Temperature Pulse Rate 80 76 80 Pulse Rate [ Bilateral Throughout] Pulse Rate [ From Monitor] Pulse Rate [ Left Dorsalis Pedis] Pulse Rate [ Right Dorsalis Pedis] Respiratory 21 20 20 Rate Respiratory Rate [Bilateral Throughout] Blood Pressure 145/70 145/70 149/77 O2 Sat by Pulse 100 100 100 Oximetry O2 Sat by Pulse Oximetry [ Assessment] 03/04/19 03/04/19 03/04/19 21:31 21:36 21:40 Temperature Pulse Rate 82 82 Pulse Rate [ 76 Bilateral Throughout] Pulse Rate [ From Monitor] Pulse Rate [ Left Dorsalis Pedis] Pulse Rate [ Right Dorsalis Pedis] Respiratory 17 14 Rate Respiratory 18 Rate [Bilateral Throughout] Blood Pressure 149/77 149/77 O2 Sat by Pulse 100 100 Oximetry O2 Sat by Pulse Oximetry [ Assessment] 03/04/19 03/04/19 03/04/19 21:46 21:50 21:56 Temperature Pulse Rate 84 83 78 Pulse Rate [ Bilateral Throughout] Pulse Rate [ From Monitor] Pulse Rate [ Left Dorsalis Pedis] Pulse Rate [ Right Dorsalis Pedis] Respiratory 20 18 18 Rate Respiratory Rate [Bilateral Throughout] Blood Pressure 149/77 149/77 149/77 O2 Sat by Pulse 100 100 100 Oximetry O2 Sat by Pulse Oximetry [ Assessment] 03/04/19 03/04/19 03/04/19 22:00 22:06 22:10 Temperature Pulse Rate 87 91 H 92 H Pulse Rate [ Bilateral Throughout] Pulse Rate [ From Monitor] Pulse Rate [ Left Dorsalis Pedis] Pulse Rate [ Right Dorsalis Pedis] Respiratory 20 18 14 Rate Respiratory Rate [Bilateral Throughout] Blood Pressure 142/72 142/72 142/72 O2 Sat by Pulse 100 100 100 Oximetry O2 Sat by Pulse Oximetry [ Assessment] 03/04/19 03/04/19 03/04/19 22:16 22:20 22:26 Temperature Pulse Rate 91 H 95 H 95 H Pulse Rate [ Bilateral Throughout] Pulse Rate [ From Monitor] Pulse Rate [ Left Dorsalis Pedis] Pulse Rate [ Right Dorsalis Pedis] Respiratory 17 22 15 Rate Respiratory Rate [Bilateral Throughout] Blood Pressure 142/72 142/72 142/72 O2 Sat by Pulse 100 100 Oximetry O2 Sat by Pulse Oximetry [ Assessment] 03/04/19 03/04/19 03/04/19 22:30 22:36 22:40 Temperature Pulse Rate 94 H 91 H 103 H Pulse Rate [ Bilateral Throughout] Pulse Rate [ From Monitor] Pulse Rate [ Left Dorsalis Pedis] Pulse Rate [ Right Dorsalis Pedis] Respiratory 16 19 19 Rate Respiratory Rate [Bilateral Throughout] Blood Pressure 159/68 159/68 159/68 O2 Sat by Pulse 100 100 100 Oximetry O2 Sat by Pulse Oximetry [ Assessment] 03/04/19 03/04/19 03/04/19 22:46 22:50 22:56 Temperature Pulse Rate 88 91 H 86 Pulse Rate [ Bilateral Throughout] Pulse Rate [ From Monitor] Pulse Rate [ Left Dorsalis Pedis] Pulse Rate [ Right Dorsalis Pedis] Respiratory 17 19 20 Rate Respiratory Rate [Bilateral Throughout] Blood Pressure 159/68 159/68 159/68 O2 Sat by Pulse 100 100 100 Oximetry O2 Sat by Pulse Oximetry [ Assessment] 03/04/19 03/04/19 03/04/19 23:00 23:06 23:10 Temperature Pulse Rate 107 H 98 H 87 Pulse Rate [ Bilateral Throughout] Pulse Rate [ From Monitor] Pulse Rate [ Left Dorsalis Pedis] Pulse Rate [ Right Dorsalis Pedis] Respiratory 19 17 20 Rate Respiratory Rate [Bilateral Throughout] Blood Pressure 148/83 148/83 148/83 O2 Sat by Pulse 100 100 100 Oximetry O2 Sat by Pulse Oximetry [ Assessment] 03/04/19 03/04/19 03/04/19 23:16 23:18 23:20 Temperature Pulse Rate 86 83 81 Pulse Rate [ Bilateral Throughout] Pulse Rate [ From Monitor] Pulse Rate [ Left Dorsalis Pedis] Pulse Rate [ Right Dorsalis Pedis] Respiratory 18 19 20 Rate Respiratory Rate [Bilateral Throughout] Blood Pressure 148/83 148/83 O2 Sat by Pulse 100 100 100 Oximetry O2 Sat by Pulse Oximetry [ Assessment] 03/04/19 03/04/19 03/04/19 23:26 23:29 23:30 Temperature 98.7 F Pulse Rate 84 84 Pulse Rate [ Bilateral Throughout] Pulse Rate [ From Monitor] Pulse Rate [ Left Dorsalis Pedis] Pulse Rate [ Right Dorsalis Pedis] Respiratory 20 20 Rate Respiratory Rate [Bilateral Throughout] Blood Pressure 148/83 148/83 O2 Sat by Pulse 100 100 Oximetry O2 Sat by Pulse Oximetry [ Assessment] 03/04/19 03/04/19 03/04/19 23:35 23:37 23:41 Temperature Pulse Rate 83 85 82 Pulse Rate [ Bilateral Throughout] Pulse Rate [ 83 From Monitor] Pulse Rate [ 74 Left Dorsalis Pedis] Pulse Rate [ 74 Right Dorsalis Pedis] Respiratory 19 18 Rate Respiratory Rate [Bilateral Throughout] Blood Pressure 153/70 148/83 O2 Sat by Pulse 100 100 Oximetry O2 Sat by Pulse Oximetry [ Assessment] 0903/04/19 03/04/19 23:42 23:45 23:51 Temperature Pulse Rate 80 88 75 Pulse Rate [ Bilateral Throughout] Pulse Rate [ From Monitor] Pulse Rate [ Left Dorsalis Pedis] Pulse Rate [ Right Dorsalis Pedis] Respiratory 21 19 Rate Respiratory Rate [Bilateral Throughout] Blood Pressure 153/73 148/83 148/83 O2 Sat by Pulse 100 100 Oximetry O2 Sat by Pulse Oximetry [ Assessment] 03/04/19 03/05/19 03/05/19 23:55 00:00 00:05 Temperature Pulse Rate 76 84 82 Pulse Rate [ Bilateral Throughout] Pulse Rate [ From Monitor] Pulse Rate [ Left Dorsalis Pedis] Pulse Rate [ Right Dorsalis Pedis] Respiratory 18 18 14 Rate Respiratory Rate [Bilateral Throughout] Blood Pressure 148/83 160/80 160/80 O2 Sat by Pulse 100 100 Oximetry O2 Sat by Pulse Oximetry [ Assessment] 03/05/19 03/05/19 03/05/19 00:11 00:15 00:21 Temperature Pulse Rate 76 81 73 Pulse Rate [ Bilateral Throughout] Pulse Rate [ From Monitor] Pulse Rate [ Left Dorsalis Pedis] Pulse Rate [ Right Dorsalis Pedis] Respiratory 19 17 19 Rate Respiratory Rate [Bilateral Throughout] Blood Pressure 160/80 153/70 153/70 O2 Sat by Pulse 100 100 Oximetry O2 Sat by Pulse Oximetry [ Assessment] 03/05/19 03/05/19 03/05/19 00:25 00:31 00:35 Temperature Pulse Rate 72 67 67 Pulse Rate [ Bilateral Throughout] Pulse Rate [ From Monitor] Pulse Rate [ Left Dorsalis Pedis] Pulse Rate [ Right Dorsalis Pedis] Respiratory 19 18 19 Rate Respiratory Rate [Bilateral Throughout] Blood Pressure 153/70 147/70 147/70 O2 Sat by Pulse 100 100 100 Oximetry O2 Sat by Pulse Oximetry [ Assessment] 03/05/19 03/05/19 03/05/19 00:41 00:45 00:51 Temperature Pulse Rate 64 68 69 Pulse Rate [ Bilateral Throughout] Pulse Rate [ From Monitor] Pulse Rate [ Left Dorsalis Pedis] Pulse Rate [ Right Dorsalis Pedis] Respiratory 19 19 19 Rate Respiratory Rate [Bilateral Throughout] Blood Pressure 147/70 147/70 147/70 O2 Sat by Pulse 100 100 100 Oximetry O2 Sat by Pulse Oximetry [ Assessment] 03/05/19 03/05/19 03/05/19 00:55 01:00 01:05 Temperature Pulse Rate 72 71 77 Pulse Rate [ Bilateral Throughout] Pulse Rate [ From Monitor] Pulse Rate [ Left Dorsalis Pedis] Pulse Rate [ Right Dorsalis Pedis] Respiratory 21 20 18 Rate Respiratory Rate [Bilateral Throughout] Blood Pressure 147/70 147/70 147/70 O2 Sat by Pulse 97 100 100 Oximetry O2 Sat by Pulse Oximetry [ Assessment] 03/05/19 03/05/19 03/05/19 01:11 01:15 01:21 Temperature Pulse Rate 79 76 74 Pulse Rate [ Bilateral Throughout] Pulse Rate [ From Monitor] Pulse Rate [ Left Dorsalis Pedis] Pulse Rate [ Right Dorsalis Pedis] Respiratory 22 19 18 Rate Respiratory Rate [Bilateral Throughout] Blood Pressure 147/70 147/70 147/70 O2 Sat by Pulse 100 99 100 Oximetry O2 Sat by Pulse Oximetry [ Assessment] 03/05/19 03/05/19 03/05/19 01:25 01:31 01:35 Temperature Pulse Rate 72 91 H 74 Pulse Rate [ Bilateral Throughout] Pulse Rate [ From Monitor] Pulse Rate [ Left Dorsalis Pedis] Pulse Rate [ Right Dorsalis Pedis] Respiratory 21 25 H 22 Rate Respiratory Rate [Bilateral Throughout] Blood Pressure 147/70 147/72 147/72 O2 Sat by Pulse 90 98 89 Oximetry O2 Sat by Pulse Oximetry [ Assessment] 03/05/19 03/05/19 03/05/19 01:41 01:45 01:51 Temperature Pulse Rate 77 73 77 Pulse Rate [ Bilateral Throughout] Pulse Rate [ From Monitor] Pulse Rate [ Left Dorsalis Pedis] Pulse Rate [ Right Dorsalis Pedis] Respiratory 21 20 20 Rate Respiratory Rate [Bilateral Throughout] Blood Pressure 147/72 147/72 147/72 O2 Sat by Pulse 97 93 95 Oximetry O2 Sat by Pulse Oximetry [ Assessment] 03/05/19 03/05/19 03/05/19 01:55 02:00 02:06 Temperature Pulse Rate 72 71 75 Pulse Rate [ Bilateral Throughout] Pulse Rate [ From Monitor] Pulse Rate [ Left Dorsalis Pedis] Pulse Rate [ Right Dorsalis Pedis] Respiratory 20 19 22 Rate Respiratory Rate [Bilateral Throughout] Blood Pressure 147/72 131/63 131/63 O2 Sat by Pulse 84 87 100 Oximetry O2 Sat by Pulse Oximetry [ Assessment] 03/05/19 03/05/1903/05/19 02:10 02:16 02:20 Temperature Pulse Rate 78 81 77 Pulse Rate [ Bilateral Throughout] Pulse Rate [ From Monitor] Pulse Rate [ Left Dorsalis Pedis] Pulse Rate [ Right Dorsalis Pedis] Respiratory 21 18 21 Rate Respiratory Rate [Bilateral Throughout] Blood Pressure 131/63 131/63 131/63 O2 Sat by Pulse 100 100 100 Oximetry O2 Sat by Pulse Oximetry [ Assessment] 03/05/19 03/05/19 03/05/19 02:26 02:30 02:36 Temperature Pulse Rate 84 81 75 Pulse Rate [ Bilateral Throughout] Pulse Rate [ From Monitor] Pulse Rate [ Left Dorsalis Pedis] Pulse Rate [ Right Dorsalis Pedis] Respiratory 25 H 22 22 Rate Respiratory Rate [Bilateral Throughout] Blood Pressure 131/63 145/70 145/70 O2 Sat by Pulse 100 100 97 Oximetry O2 Sat by Pulse Oximetry [ Assessment] 03/05/19 03/05/19 03/05/19 02:40 02:46 02:50 Temperature Pulse Rate 78 77 93 H Pulse Rate [ Bilateral Throughout] Pulse Rate [ From Monitor] Pulse Rate [ Left Dorsalis Pedis] Pulse Rate [ Right Dorsalis Pedis] Respiratory 21 22 23 Rate Respiratory Rate [Bilateral Throughout] Blood Pressure 145/70 145/70 145/70 O2 Sat by Pulse 96 100 97 Oximetry O2 Sat by Pulse Oximetry [ Assessment] 03/05/19 03/05/19 03/05/19 02:56 03:00 03:06 Temperature Pulse Rate 82 79 88 Pulse Rate [ Bilateral Throughout] Pulse Rate [ From Monitor] Pulse Rate [ Left Dorsalis Pedis] Pulse Rate [ Right Dorsalis Pedis] Respiratory 25 H 27 H 26 H Rate Respiratory Rate [Bilateral Throughout] Blood Pressure 145/70 152/67 152/67 O2 Sat by Pulse 99 100 100 Oximetry O2 Sat by Pulse Oximetry [ Assessment] 03/05/19 03/05/19 03/05/19 03:10 03:16 03:20 Temperature Pulse Rate 79 82 91 H Pulse Rate [ Bilateral Throughout] Pulse Rate [ From Monitor] Pulse Rate [ Left Dorsalis Pedis] Pulse Rate [ Right Dorsalis Pedis] Respiratory 25 H 25 H 28 H Rate Respiratory Rate [Bilateral Throughout] Blood Pressure 152/67 152/67 152/67 O2 Sat by Pulse 100 100 100 Oximetry O2 Sat by Pulse Oximetry [ Assessment] 03/05/19 03/05/19 03/05/19 03:26 03:30 03:36 Temperature Pulse Rate 108 H 86 79 Pulse Rate [ 83 Bilateral Throughout] Pulse Rate [ From Monitor] Pulse Rate [ Left Dorsalis Pedis] Pulse Rate [ Right Dorsalis Pedis] Respiratory 22 22 21 Rate Respiratory 18 Rate [Bilateral Throughout] Blood Pressure 152/67 162/72 162/72 O2 Sat by Pulse 99 100 100 Oximetry O2 Sat by Pulse Oximetry [ Assessment] 03/05/19 03/05/19 03/05/19 03:40 03:41 03:46 Temperature 99.6 F Pulse Rate 89 86 Pulse Rate [ Bilateral Throughout] Pulse Rate [ From Monitor] Pulse Rate [ Left Dorsalis Pedis] Pulse Rate [ Right Dorsalis Pedis] Respiratory 23 22 Rate Respiratory Rate [Bilateral Throughout] Blood Pressure 162/72 162/72 O2 Sat by Pulse 100 100 Oximetry O2 Sat by Pulse Oximetry [ Assessment] 03/05/19 03/05/19 03/05/19 03:50 03:56 04:00 Temperature Pulse Rate 88 100 H 84 Pulse Rate [ Bilateral Throughout] Pulse Rate [ 87 From Monitor] Pulse Rate [ 87 Left Dorsalis Pedis] Pulse Rate [ 87 Right Dorsalis Pedis] Respiratory 22 21 23 Rate Respiratory Rate [Bilateral Throughout] Blood Pressure 162/72 162/72 149/68 O2 Sat by Pulse 100 100 100 Oximetry O2 Sat by Pulse Oximetry [ Assessment] 03/05/19 03/05/19 03/05/19 04:06 04:10 04:16 Temperature Pulse Rate 80 79 78 Pulse Rate [ Bilateral Throughout] Pulse Rate [ From Monitor] Pulse Rate [ Left Dorsalis Pedis] Pulse Rate [ Right Dorsalis Pedis] Respiratory 22 20 20 Rate Respiratory Rate [Bilateral Throughout] Blood Pressure 149/68 149/68 149/68 O2 Sat by Pulse 100 100 100 Oximetry O2 Sat by Pulse Oximetry [ Assessment] 03/05/19 03/05/19 03/05/19 04:20 04:26 04:30 Temperature Pulse Rate 77 91 H 85 Pulse Rate [ Bilateral Throughout] Pulse Rate [ From Monitor] Pulse Rate [ Left Dorsalis Pedis] Pulse Rate [ Right Dorsalis Pedis] Respiratory 19 20 22 Rate Respiratory Rate [Bilateral Throughout] Blood Pressure 149/68 149/68 156/70 O2 Sat by Pulse 100 100 100 Oximetry O2 Sat by Pulse Oximetry [ Assessment] 03/05/19 03/05/19 03/05/19 04:36 04:40 04:46 Temperature Pulse Rate 82 84 Pulse Rate [ Bilateral Throughout] Pulse Rate [ From Monitor] Pulse Rate [ Left Dorsalis Pedis] Pulse Rate [ Right Dorsalis Pedis] Respiratory 19 19 12 Rate Respiratory Rate [Bilateral Throughout] Blood Pressure 156/70 156/70 156/70 O2 Sat by Pulse 100 100 100 Oximetry O2 Sat by Pulse Oximetry [ Assessment] 03/05/19 03/05/19 03/05/19 04:50 04:56 05:00 Temperature Pulse Rate 85 82 90 Pulse Rate [ Bilateral Throughout] Pulse Rate [ From Monitor] Pulse Rate [ Left Dorsalis Pedis] Pulse Rate [ Right Dorsalis Pedis] Respiratory 18 20 19 Rate Respiratory Rate [Bilateral Throughout] Blood Pressure 149/68 149/68 157/94 O2 Sat by Pulse 100 100 100 Oximetry O2 Sat by Pulse Oximetry [ Assessment] 03/05/19 03/05/19 03/05/19 05:06 05:10 05:16 Temperature Pulse Rate 97 H 89 83 Pulse Rate [ Bilateral Throughout] Pulse Rate [ From Monitor] Pulse Rate [ Left Dorsalis Pedis] Pulse Rate [ Right Dorsalis Pedis] Respiratory 20 20 22 Rate Respiratory Rate [Bilateral Throughout] Blood Pressure 157/94 157/94 157/94 O2 Sat by Pulse 100 100 Oximetry O2 Sat by Pulse Oximetry [ Assessment] 03/05/19 03/05/19 03/05/19 05:20 05:26 05:29 Temperature Pulse Rate 86 90 79 Pulse Rate [ Bilateral Throughout] Pulse Rate [ From Monitor] Pulse Rate [ Left Dorsalis Pedis] Pulse Rate [ Right Dorsalis Pedis] Respiratory 18 16 Rate Respiratory Rate [Bilateral Throughout] Blood Pressure 157/94 157/94 157/94 O2 Sat by Pulse 100 100 Oximetry O2 Sat by Pulse Oximetry [ Assessment] 03/05/19 03/05/19 03/05/19 05:30 05:36 07:50 Temperature Pulse Rate 79 88 Pulse Rate [ 84 Bilateral Throughout] Pulse Rate [ From Monitor] Pulse Rate [ Left Dorsalis Pedis] Pulse Rate [ Right Dorsalis Pedis] Respiratory 21 21 Rate Respiratory 20 Rate [Bilateral Throughout] Blood Pressure 166/91 166/91 O2 Sat by Pulse 100 Oximetry O2 Sat by Pulse 100 Oximetry [ Assessment] Constitutional: alert, other (critically ill on ventilator) Eyes: non-icteric ENT: oropharynx moist, other (tpiece in place) Neck: other (trach present and midline, old blood present around trach) Effort: normal Ascultation: Bilateral: clear Percussion: Bilateral: not dull Tactile fremitus: Bilateral: normal Cardiovascular: other (sinus tach) Gastrointestinal: normoactive bowel sounds, soft, non-tender Extremities: no cyanosis, no edema Neurologic: normal mental status, other (LUE weakness) Psychiatric: mood appropriate, affect normal CBC and BMP: 03/03/19 04:24 03/05/19 10:42 ABG, PT/INR, D-dimer: ABG POC ABG pH 7.344 (7.35-7.45) L 03/03/19 18:57 POC ABG pCO2 39.5 (35-45) 03/03/19 18:57 POC ABG pO2 115 (80-105) H 03/03/19 18:57 POC ABG HCO3 21.5 (22-26 mml/L) 03/03/19 18:57 POC ABG Total CO2 23 (23-27mmol/L) 03/03/19 18:57 POC ABG O2 Sat 98 03/03/19 18:57 PT/INR, D-dimer PT 16.2 Sec. (12.2-14.9) H 02/28/19 10:18 INR 1.34 (0.87-1.13) H 02/28/19 10:18 Abnormal lab findings: Abnormal Labs 02/28/19 02/28/19 02/28/19 10:18 10:18 10:18 WBC 4.2 L RBC 2.62 L Hgb 8.1 L Hct 24.2 L RDW Plt Count 106 L Seg Neuts % (Manual) 86.0 H Lymphocytes % (Manual) 7.0 L Monocytes % (Manual) Seg Neutrophils # Man Lymphocytes # (Manual) 0.3 L PT 16.2 H INR 1.34 H POC ABG pH POC ABG pCO2 POC ABG pO2 Sodium 152 H Chloride 117.6 H BUN 84 H Glucose 130 H POC Glucose Calcium 7.8 L AST 49 H Total Protein 5.0 L Albumin 2.0 L Crossmatch 02/28/19 02/28/19 02/28/19 10:18 15:11 15:58 WBC RBC Hgb 6.7 L Hct 20.0 L RDW Plt Count Seg Neuts % (Manual) Lymphocytes % (Manual) Monocytes % (Manual) Seg Neutrophils # Man Lymphocytes # (Manual) PT INR POC ABG pH POC ABG pCO2 33.9 L POC ABG pO2 Sodium Chloride BUN Glucose POC Glucose Calcium AST Total Protein Albumin Crossmatch See Detail 02/28/19 03/01/19 03/01/19 22:34 03:34 05:49 WBC RBC Hgb 9.0 L Hct 26.8 L D RDW Plt Count Seg Neuts % (Manual) Lymphocytes % (Manual) Monocytes % (Manual) Seg Neutrophils # Man Lymphocytes # (Manual) PT INR POC ABG pH POC ABG pCO2 POC ABG pO2 198 H Sodium 152 H Chloride 119.4 H BUN 95 H Glucose POC Glucose Calcium 7.7 L AST 49 H Total Protein 5.0 L Albumin 1.8 L Crossmatch 03/01/19 03/01/19 03/01/19 05:49 20:32 23:13 WBC RBC Hgb 7.5 L Hct 22.5 L RDW Plt Count Seg Neuts % (Manual) Lymphocytes % (Manual) Monocytes % (Manual) Seg Neutrophils # Man Lymphocytes # (Manual) PT INR POC ABG pH POC ABG pCO2 POC ABG pO2 Sodium Chloride BUN Glucose POC Glucose 106 H 137 H Calcium AST Total Protein Albumin Crossmatch 03/02/19 03/02/19 03/02/19 03:16 04:41 05:43 WBC RBC 3.17 L Hgb 9.8 L Hct 28.4 L RDW 15.7 H Plt Count 120 L Seg Neuts % (Manual) Lymphocytes % (Manual) Monocytes % (Manual) Seg Neutrophils # Man 0.0 L Lymphocytes # (Manual) 0.0 L PT INR POC ABG pH 7.337 L POC ABG pCO2 POC ABG pO2 128 H Sodium Chloride BUN Glucose POC Glucose 148 H Calcium AST Total Protein Albumin Crossmatch 03/02/19 03/02/19 03/02/19 05:48 18:15 21:17 WBC RBC Hgb Hct RDW Plt Count Seg Neuts % (Manual) Lymphocytes % (Manual) Monocytes % (Manual) Seg Neutrophils # Man Lymphocytes # (Manual) PT INR POC ABG pH POC ABG pCO2 POC ABG pO2 Sodium Chloride BUN Glucose POC Glucose 121 H 129 H 135 H Calcium AST Total Protein Albumin Crossmatch 03/02/19 03/03/19 03/03/19 23:52 04:24 04:24 WBC 3.0 L RBC 2.93 L Hgb 8.9 L Hct 26.2 L RDW 15.9 H Plt Count 115 L Seg Neuts % (Manual) Lymphocytes % (Manual) Monocytes % (Manual) 16.0 H Seg Neutrophils # Man Lymphocytes # (Manual) 0.6 L PT INR POC ABG pH POC ABG pCO2 POC ABG pO2 Sodium 149 H Chloride 116.8 H BUN 83 H Glucose 127 H POC Glucose 137 H Calcium 7.9 L AST Total Protein Albumin Crossmatch 03/03/19 03/03/19 03/03/19 05:10 05:45 13:24 WBC RBC Hgb Hct RDW Plt Count Seg Neuts % (Manual) Lymphocytes % (Manual) Monocytes % (Manual) Seg Neutrophils # Man Lymphocytes # (Manual) PT INR POC ABG pH POC ABG pCO2 POC ABG pO2 152 H 144 H Sodium Chloride BUN Glucose POC Glucose 128 H Calcium AST Total Protein Albumin Crossmatch 03/03/19 03/03/19 03/04/19 18:05 18:57 00:09 WBC RBC Hgb Hct RDW Plt Count Seg Neuts % (Manual) Lymphocytes % (Manual) Monocytes % (Manual) Seg Neutrophils # Man Lymphocytes # (Manual) PT INR POC ABG pH 7.344 L POC ABG pCO2 POC ABG pO2 115 H Sodium Chloride BUN Glucose POC Glucose 194 H 139 H Calcium AST Total Protein Albumin Crossmatch 03/04/19 03/04/19 03/04/19 05:35 11:57 17:47 WBC RBC Hgb Hct RDW Plt Count Seg Neuts % (Manual) Lymphocytes % (Manual) Monocytes % (Manual) Seg Neutrophils # Man Lymphocytes # (Manual) PT INR POC ABG pH POC ABG pCO2 POC ABG pO2 Sodium Chloride BUN Glucose POC Glucose 128 H 154 H 190 H Calcium AST Total Protein Albumin Crossmatch 03/04/19 03/05/19 23:18 05:32 WBC RBC Hgb Hct RDW Plt Count Seg Neuts % (Manual) Lymphocytes % (Manual) Monocytes % (Manual) Seg Neutrophils # Man Lymphocytes # (Manual) PT INR POC ABG pH POC ABG pCO2 POC ABG pO2 Sodium Chloride BUN Glucose POC Glucose 158 H 132 H Calcium AST Total Protein Albumin Crossmatch
[2019-03-05] MEDS: predniSONE PO SCH (09:53)
[2019-03-05] MEDS: METAMUCIL PO SCH (09:54)
[2019-03-05] MEDS: FOLVITE PO SCH (09:54)
[2019-03-05] MEDS: PREVACID SOLUTAB FEEDTUBE SCH ×2 (09:54→21:57)
[2019-03-05] MEDS: APRESOLINE IV PRN (09:55)
[2019-03-05] MEDS: SODIUM CHLORIDE FLUSH SYRINGE 10 ML IV SCH ×2 (09:55→22:00)
[2019-03-05 11:23] LABS: BUN/Creatinine Ratio 108; Blood Urea Nitrogen 54 mg/dL (7-17); Calcium 7.7 mg/dL (8.4-10.2); Hemolysis Index 91
[2019-03-05] MEDS ORDERED: SIMPLE SYRUP FEEDTUBE PRN ×2 (11:51)
[2019-03-05] MEDS ORDERED: SODIUM BICARBONATE FEEDTUBE PRN (11:51)
[2019-03-05] MEDS ORDERED: PANCREAZE DR 10,500 UNIT FEEDTUBE PRN (11:51)
--- NOTE | 2019-03-05 12:35 | Progress Note ---
Assessment and Plan Assessment and plan: 53-year-old female patient on LTAC resident was admitted through emergency room with bleeding from the tracheostomy site Admitted appropriately managed evaluated by surgery, pulmonary critical, bleeding resolved, received 3 units of PRBC Today patient is comfortable. Cleared for discharge back to LTAC Case management is processing the discharge/transfer, awaiting insurance approval --Bleeding from tracheostomy site; resolved --Chronic respiratory failure s/p tracheostomy Pulmonary critical following, stable to be discharged back to LTAC --Symptomatic anemia; requiring blood transfusion, received 3 units Hemoglobin has improved --Severe malnutrition;hypoalbuminemia nutrition supplements and supportive care, Nutrition consult --Type 2 diabetes mellitus; check sliding scale coverage and ADA diet and insulin as needed --Hypernatremia; free water flushes, Closely monitor electrolytes --History of atrial fibrillation; rate controlled Continue current medications --Chronic anticoagulation: with Eliquis Eliquis is held because of bleeding. Consult cardiology if needed --DVT prophylaxis; SCDs Critical care time 31 minutes The high probability of a clinically significant, sudden or life threatening deterioration of the [respiratory, metabolic, cardiac, hematology] system(s) required my full and direct attention, intervention and personal management. The aggregate critical care time was [31] minutes. This time is in addition to time spent performing reported procedures but includes the following: [x] Data Review and interpretation [x] Patient assessment and monitoring of vital signs [x] Documentation [x] Medication orders and management Disposition; the patient is stable to transf back to LTAC History Interval history: Sincerely and examined in ICU this morning medical records reviewed No new events, is at the bedside The patient is alert and awake Not in acute distress, status post tracheostomy Vital signs stable. Hospitalist Physical - Constitutional Vitals: Temp Pulse Resp BP Pulse Ox 98.9 F 87 21 160/81 99 03/05/19 08:00 03/05/19 09:55 03/05/19 09:00 03/05/19 09:55 03/05/19 09:00 General appearance: Present: no acute distress, well-nourished, other ( tracheo stomy on vent) - EENT Eyes: Present: PERRL, EOM intact - Neck Neck: Present: supple, normal ROM - Respiratory Respiratory effort: normal Respiratory: bilateral: diminished, negative: rales, rhonchi, wheezing - Cardiovascular Rhythm: regular Heart Sounds: Present: S1 & S2 - Extremities Extremities: no ischemia, No edema - Abdominal General gastrointestinal: soft, non-tender, non-distended, normal bowel sounds - Integumentary Integumentary: Present: clear, warm - Psychiatric Psychiatric: appropriate mood/affect - Neurologic Neurologic: other (secured weakness) Results - Labs CBC & Chem 7: 03/03/19 04:24 03/05/19 10:42 Labs: Laboratory Last Values WBC 3.0 K/mm3 (4.5-11.0) L 03/03/19 04:24 RBC 2.93 M/mm3 (3.65-5.03) L 03/03/19 04:24 Hgb 8.9 gm/dl (10.1-14.3) L 03/03/19 04:24 Hct 26.2 % (30.3-42.9) L 03/03/19 04:24 MCV 89 fl (79-97) 03/03/19 04:24 MCH 30 pg (28-32) 03/03/19 04:24 MCHC 34 % (30-34) 03/03/19 04:24 RDW 15.9 % (13.2-15.2) H 03/03/19 04:24 Plt Count 115 K/mm3 (140-440) L 03/03/19 04:24 Eos % (Auto) [employer] 03/02/19 05:43 Add Manual Diff Complete 03/03/19 04:24 Total Counted 100 03/03/19 04:24 Seg Neuts % (Manual) 62.0 % (40.0-70.0) 03/03/19 04:24 3.0 % 03/03/19 04:24 19.0 % (13.4-35.0) 03/03/19 04:24 Reactive Lymphs % (Man) 0 % 03/03/19 04:24 16.0 % (0.0-7.3) H 03/03/19 04:24 0 % (0.0-4.3) 03/03/19 04:24 0 % (0.0-1.8) 03/03/19 04:24 0 % 03/03/19 04:24 0 % 03/03/19 04:24 0 % 03/03/19 04:24 0 % 03/03/19 04:24 Nucleated RBC % Not Reportable 03/03/19 04:24 Seg Neutrophils # Man 1.9 K/mm3 (1.8-7.7) 03/03/19 04:24 Band Neutrophils # 0.1 K/mm3 03/03/19 04:24 0.6 K/mm3 (1.2-5.4) L 03/03/19 04:24 Abs React Lymphs (Man) 0.0 K/mm3 03/03/19 04:24 0.5 K/mm3 (0.0-0.8) 03/03/19 04:24 0.0 K/mm3 (0.0-0.4) 03/03/19 04:24 0.0 K/mm3 (0.0-0.1) 03/03/19 04:24 0.0 K/mm3 03/03/19 04:24 0.0 K/mm3 03/03/19 04:24 0.0 K/mm3 03/03/19 04:24 Blast Cells # 0.0 K/mm3 03/03/19 04:24 WBC Morphology Not Reportable 03/03/19 04:24 Hypersegmented Neuts Not Reportable 03/03/19 04:24 Hyposegmented Neuts Not Reportable 03/03/19 04:24 Hypogranular Neuts Not Reportable 03/03/19 04:24 Not Reportable 03/03/19 04:24 Not Reportable 03/03/19 04:24 Not Reportable 03/03/19 04:24 Not Reportable 03/03/19 04:24 Not Reportable 03/03/19 04:24 Not Reportable 03/03/19 04:24 Consistent w auto 03/03/19 04:24 Not Reportable 03/03/19 04:24 Plt Clumps, EDTA Not Reportable 03/03/19 04:24 Not Reportable 03/03/19 04:24 Not Reportable 03/03/19 04:24 Not Reportable 03/03/19 04:24 Plt Morphology Comment Not Reportable 03/03/19 04:24 RBC Morphology Not Reportable 03/03/19 04:24 Dimorphic RBCs Not Reportable 03/03/19 04:24 Not Reportable 03/03/19 04:24 Few 03/03/19 04:24 Few 03/03/19 04:24 Few 03/03/19 04:24 Not Reportable 03/03/19 04:24 Not Reportable 03/03/19 04:24 Not Reportable 03/03/19 04:24 Not Reportable 03/03/19 04:24 Not Reportable 03/03/19 04:24 Not Reportable 03/03/19 04:24 Not Reportable 03/03/19 04:24 Few 03/03/19 04:24 Not Reportable 03/03/19 04:24 Not Reportable 03/03/19 04:24 Not Reportable 03/03/19 04:24 Not Reportable 03/03/19 04:24 Not Reportable 03/03/19 04:24 Not Reportable 03/03/19 04:24 Not Reportable 03/03/19 04:24 Acanthocytes (Spur) Rare 03/03/19 04:24 Rouleaux Not Reportable 03/03/19 04:24 Not Reportable 03/03/19 04:24 Not Reportable 03/03/19 04:24 Not Reportable 03/03/19 04:24 Not Reportable 03/03/19 04:24 Hem Pathologist Commnt No 03/03/19 04:24 PT 16.2 Sec. (12.2-14.9) H 02/28/19 10:18 INR 1.34 (0.87-1.13) H 02/28/19 10:18 APTT 29.9 Sec. (24.2-36.6) 02/28/19 10:18 POC ABG pH 7.344 (7.35-7.45) L 03/03/19 18:57 POC ABG pCO2 39.5 (35-45) 03/03/19 18:57 POC ABG pO2 115 (80-105) H 03/03/19 18:57 POC ABG HCO3 21.5 (22-26 mml/L) 03/03/19 18:57 POC ABG Total CO2 23 (23-27mmol/L) 03/03/19 18:57 POC ABG O2 Sat 98 03/03/19 18:57 POC ABG Base Excess -4 ((-2) - (+3)mmol/L) 03/03/19 18:57 28 % 03/03/19 18:57 Sodium 139 mmol/L (137-145) D 03/05/19 10:42 Potassium 4.6 mmol/L (3.6-5.0) 03/05/19 10:42 Chloride 107.0 mmol/L (98-107) 03/05/19 10:42 Carbon Dioxide 20 mmol/L (22-30) L 03/05/19 10:42 17 mmol/L 03/05/19 10:42 BUN 54 mg/dL (7-17) H 03/05/19 10:42 0.5 mg/dL (0.7-1.2) L 03/05/19 10:42 Estimated GFR > 60 ml/min 03/05/19 10:42 108 % 03/05/19 10:42 Glucose 152 mg/dL (65-100) H 03/05/19 10:42 POC Glucose 132 (70-105) H 03/05/19 05:32 5.8 % (4-6) 02/28/19 22:34 Calcium 7.7 mg/dL (8.4-10.2) L 03/05/19 10:42 0.50 mg/dL (0.1-1.2) 03/01/19 05:49 AST 49 units/L (5-40) H 03/01/19 05:49 ALT 16 units/L (7-56) 03/01/19 05:49 77 units/L (35-129) 03/01/19 05:49 5.0 g/dL (6.3-8.2) L 03/01/19 05:49 1.8 g/dL (3.9-5) L 03/01/19 05:49 0.6 % 03/01/19 05:49 Blood Type B POSITIVE 02/28/19 10:18 Antibody Screen Negative 02/28/19 10:18 Crossmatch See Detail 02/28/19 10:18 Active Medications - Current Medications Current Medications: Generic Name Dose Route Start Last Admin Trade Name Freq PRN Reason Stop Dose Admin Acetaminophen 650 mg 03/01/19 07:00 03/02/19 12:25 Tylenol PO 650 mg Q4H PRN Administration Pain MILD(1-3)/Fever >100.5/VALENZUELA Albuterol/Ipratropium 1 ampul 03/01/19 02:00 03/05/19 07:50 Duoneb *Not For Prn Use* IH 1 ampul Q6HRT AMOL Administration Lipase/Protease/Amylase 1 each 02/28/19 21:47 Pancreemeka Hammond 10,500 Unit FEEDTUBE PRN PRN For Clogged Feeding Tube Dextrose 50 ml 02/28/19 22:42 D50w (25gm) Syringe IV PRN PRN Hypoglycemia Diltiazem HCl 60 mg 03/01/19 07:00 03/05/19 05:29 Cardizem PO 60 mg Q6HR AMOL Administration Folic Acid 1 mg 03/01/19 10:00 03/05/19 09:54 Folvite PO 1 mg QDAY AMOL Administration Hydralazine HCl 10 mg 03/02/19 09:49 03/05/19 09:55 Apresoline IV 10 mg Q4H PRN Administration Hypertension Hydromorphone HCl 0.25 mg 02/28/19 21:47 Dilaudid IV Q3H PRN Pain, Moderate (4-6) Dextrose 1,000 mls @ 75 mls/hr 03/03/19 02:00 03/04/19 15:21 D5w IV 75 mls/hr DIRECT AMOL Administration Insulin Glargine 15 units 03/01/19 22:00 03/04/19 23:41 Lantus SUB-Q 15 units QHS AMOL Administration Insulin Human Regular 0 units 03/01/19 00:00 03/05/19 05:30 Humulin R SUB-Q Not Given Q6HR [facility] Protocol Lansoprazole 30 mg 03/01/19 10:00 03/05/19 09:54 Prevacid Solutab FEEDTUBE 30 mg BID AMOL Administration Levothyroxine Sodium 125 mcg 03/01/19 06:00 03/05/19 05:31 Synthroid PO 125 mcg QAM@0600 AMOL Administration Lorazepam 1 mg 03/01/19 06:40 Ativan IV Q6H PRN Agitation Ondansetron HCl 4 mg 02/28/19 21:47 Zofran IV Q8H PRN Nausea And Vomiting Oxycodone/Acetaminophen 1 tab 03/01/19 06:40 03/04/19 11:04 Percocet 5/325 FEEDTUBE 1 tab Q6H PRN Administration Pain, Moderate (4-6) Prednisone 20 mg 03/01/19 10:00 03/05/19 09:53 Prednisone PO 20 mg QDAY AMOL Administration Psyllium Hydrophilic Mucilloid 1 each 03/01/19 10:00 03/05/19 09:54 Metamucil PO 1 each QDAY AMOL Administration Simple Syrup 15 ml 02/28/19 21:47 Simple Syrup FEEDTUBE PRN PRN Hypoglycemia Simple Syrup 30 ml 02/28/19 21:47 Simple Syrup FEEDTUBE PRN PRN Hypoglycemia Sodium Bicarbonate 325 mg 02/28/19 21:47 Sodium Bicarbonate FEEDTUBE PRN PRN For Clogged Feeding Tube Sodium Chloride 10 ml 02/28/19 22:00 03/05/19 09:55 Sodium Chloride Flush Syringe 10 Ml IV 10 ml BID AMOL Administration Sodium Chloride 10 ml 02/28/19 21:47 Sodium Chloride Flush Syringe 10 Ml IV PRN PRN LINE FLUSH Nutrition/Malnutrition Assess - Dietary Evaluation Nutrition/Malnutrition Findings: Nutrition Notes Start: 03/01/19 08:06 Freq: Status: Active Protocol: Document 03/05/19 11:24 LM (Rec: 03/05/19 11:51 LM [email or web address]) Nutrition Notes Initial or Follow up Reassessment Current Diagnosis Diabetes,Sepsis,Stroke Other Pertinent Diagnosis Pneumonia, AMS, s/p trach and PEG, trach bleeding Current Diet Promote 1.0 at 70 ml/hr Labs/Tests POC glu 132 Pertinent Medications Reviewed Height 5 ft 7 in Weight 90.4 kg [place] Body Weight (kg) 61.36 BMI 31.1 Subjective/Other Information Promote running at 70 ml/hr and tolerating TF. Pt no longer on vent. Percent of energy/protein needs met: 90%/100% Burn Absent Trauma Absent Minimum of two criteria No #1 Nutrition Diagnosis Inadequate oral intake Diagnosis Progress(for reassessment Continues documentation) Is patient on ventilator? No Is Patient Ambulatory and/or Out of Bed No REE-([facility]-confined to bed) 1865.760 Kcal/Kg value to use for calculation 17 Approximate Energy Requirements Using 1537 kcal/Kg Calculation Used for Recommendations [facility] Additional Notes Protein: 61-76 (0.8-1 g/kg AdBW 76 kg) Fluid: 1 ml/kcal Nutrition Intervention Change Diet Order: Continue TF Nutrition Support: Change to Glucerna 1.2 at 55 ml/hr Flush 100 ml q4hr Kcal 1,584 Protein (gm) 79 Fluid (mL) 1,062 Goal #1 Continue TF Goal #2 Meet at least 75% of energy and protein needs Anticipated Discharge Needs: TF Follow-Up By: 03/06/19 Additional Comments F/U for new TF, rate/tolerance
--- NOTE | 2019-03-05 12:55 | Discharge Summary ---
Providers - Providers Date of Admission: 02/28/19 13:37 Date of discharge: 03/05/19 Attending physician: PUSHPA PERRIN 02/28/19 10:56 Consult to Physician [CONS] Urgent Comment: Consulting Provider: CHINMAY LESTER Physician Instructions: Reason For Exam: bleeding from trach 02/28/19 10:59 Consult to Physician [CONS] Stat Comment: Consulting Provider: MIR CARUSO Physician Instructions: Reason For Exam: bleeding trach 02/28/19 21:48 Consult to Dietitian/Nutrition [CONS] Routine Physician Instructions: Reason For Exam: Reason for Consult: Write/Manage Tube Feeding Consult to Dietitian/Nutrition [CONS] Routine Physician Instructions: Reason For Exam: peg Tube feeding Reason for Consult: Write/Manage Tube Feeding 02/28/19 21:50 Consult to Dietitian/Nutrition [CONS] Routine Physician Instructions: Assess nutrtn needs, initiate, modify, manage TF Reason For Exam: Reason for Consult: Write/Manage Tube Feeding Reason for Consult: Write/Manage Tube Feeding 03/02/19 11:36 Consult to Wound/ET Nurse [CONS] Routine Reason For Exam: wound eval - neck, around tracheostomy Primary care physician: AMY Hospitalization Condition: Stable Disposition: DC-01 TO HOME OR SELFCARE Time spent for discharge: 32 min Core Measure Documentation - Palliative Care Palliative Care/ Comfort Measures: Not Applicable - Core Measures Any of the following diagnoses?: none Exam - Constitutional Vitals: Temp Pulse Resp BP Pulse Ox 98.9 F 87 21 160/81 99 03/05/19 08:00 03/05/19 09:55 03/05/19 09:00 03/05/19 09:55 03/05/19 09:00 General appearance: Present: no acute distress, well-nourished - EENT Eyes: Present: PERRL, EOM intact - Neck Neck: Present: supple, normal ROM - Respiratory Respiratory effort: normal Respiratory: bilateral: diminished, negative: rales, rhonchi, wheezing - Cardiovascular Rhythm: regular Heart Sounds: Present: S1 & S2 - Extremities Extremities: no ischemia, No edema - Abdominal General gastrointestinal: Present: soft, non-tender, non-distended, normal bowel sounds - Integumentary Integumentary: Present: clear, warm - Musculoskeletal Musculoskeletal: strength equal bilaterally - Psychiatric Psychiatric: appropriate mood/affect, cooperative - Neurologic Neurologic: CNII-XII intact, moves all extremities Plan Activity: advance as tolerated Diet: regular Additional Instructions: Advised to quit cocaine use. Advised follow-up ramifications physician in 4- 5 days Plan of Treatment: Tracheostomy care - Gently pack either side of tracheostomy incision with mesalt packing. Apply drain sponge and secure tracheostomy with neck strap. Perform wound care every other day Health Concerns: If you have any concerns about tracheostomy call General surgery office - Dr. Caruso or Dr. Ventura. [phone] Follow up with: BARBIE REYES MD [Primary Care Provider] - 3-5 Days
[2019-03-05] MEDS: D5W 1,000 ML IV SCH (13:01)
[2019-03-05] MEDS: LANTUS SUB-Q SCH (21:57)
[2019-03-06] MEDS: DUONEB *Not for PRN Use IH SCH ×2 (03:30→07:27)
[2019-03-06] MEDS: HumuLIN R SUB-Q SCH ×3 (06:40→11:27)
[2019-03-06] MEDS: CARDIZEM PO SCH (07:10)
[2019-03-06] MEDS: SYNTHROID PO SCH (07:15)
[2019-03-06] MEDS: PREVACID SOLUTAB FEEDTUBE SCH (09:34)
[2019-03-06] MEDS: FOLVITE PO SCH (09:35)
[2019-03-06] MEDS: predniSONE PO SCH (09:35)
[2019-03-06] MEDS: D5W 1,000 ML IV SCH (09:36)
[2019-03-06] MEDS: SODIUM CHLORIDE FLUSH SYRINGE 10 ML IV SCH (09:36)
--- NOTE | 2019-03-06 10:16 | Progress Note ---
Assessment and Plan --Bleeding from tracheostomy site; resolved --Chronic respiratory failure s/p tracheostomy Pulmonary critical following, stable to be discharged back to LTAC --Symptomatic anemia; requiring blood transfusion, received 3 units Hemoglobin has improved --Severe malnutrition;hypoalbuminemia nutrition supplements and supportive care, Nutrition consult --Type 2 diabetes mellitus; check sliding scale coverage and ADA diet and insulin as needed --Hypernatremia; free water flushes, Closely monitor electrolytes --History of atrial fibrillation; rate controlled Continue current medications --Chronic anticoagulation: with Eliquis Eliquis is held because of bleeding. Consult cardiology if needed --DVT prophylaxis; SCDs Brief History 53-year-old female patient on LTAC resident was admitted through emergency room with bleeding from the tracheostomy site Admitted appropriately managed evaluated by surgery, pulmonary critical, bleeding resolved, received 3 units of PRBC Today patient is comfortable. Cleared for discharge back to LTAC Case management is processing the discharge/transfer, awaiting insurance approval Hospitalist Physical General appearance: Present: no acute distress, well-nourished, other ( tracheostomy on t-piece) - EENT Eyes: Present: PERRL, EOM intact - Neck Neck: Present: supple, normal ROM - Respiratory Respiratory effort: normal Respiratory: bilateral: diminished, negative: rales, rhonchi, wheezing - Cardiovascular Rhythm: regular Heart Sounds: Present: S1 & S2 - Extremities Extremities: no ischemia, No edema - Abdominal General gastrointestinal: soft, non-tender, non-distended, normal bowel sounds - Integumentary Integumentary: Present: clear, warm - Psychiatric Psychiatric: appropriate mood/affect - Neurologic Neurologic: other (secured weakness) Subjective Date of service: 03/06/19 Principal diagnosis: Acute/chronic respiratory failure Objective - Constitutional Vitals: Vital Signs - 12hr 03/05/19 03/05/19 03/05/19 22:16 22:20 22:26 Temperature Pulse Rate 77 77 92 H Pulse Rate [ Bilateral Throughout] Pulse Rate [ From Monitor] Pulse Rate [ Left Radial] Pulse Rate [ Right Dorsalis Pedis] Pulse Rate [ Right Radial] Respiratory 19 22 22 Rate Respiratory Rate [Bilateral Throughout] Blood Pressure 147/75 147/75 147/75 O2 Sat by Pulse 98 100 95 Oximetry O2 Sat by Pulse Oximetry [ Assessment] 03/05/19 03/05/19 03/05/19 22:30 22:36 22:40 Temperature Pulse Rate 77 76 77 Pulse Rate [ Bilateral Throughout] Pulse Rate [ From Monitor] Pulse Rate [ Left Radial] Pulse Rate [ Right Dorsalis Pedis] Pulse Rate [ Right Radial] Respiratory 21 21 19 Rate Respiratory Rate [Bilateral Throughout] Blood Pressure 158/81 158/81 158/81 O2 Sat by Pulse 99 93 97 Oximetry O2 Sat by Pulse Oximetry [ Assessment] 03/05/19 03/05/19 03/05/19 22:46 22:50 22:56 Temperature Pulse Rate 72 68 74 Pulse Rate [ Bilateral Throughout] Pulse Rate [ From Monitor] Pulse Rate [ Left Radial] Pulse Rate [ Right Dorsalis Pedis] Pulse Rate [ Right Radial] Respiratory 19 18 20 Rate Respiratory Rate [Bilateral Throughout] Blood Pressure 158/81 158/81 158/81 O2 Sat by Pulse 96 100 100 Oximetry O2 Sat by Pulse Oximetry [ Assessment] 03/05/19 03/05/19 03/05/19 23:00 23:06 23:10 Temperature Pulse Rate 78 79 78 Pulse Rate [ Bilateral Throughout] Pulse Rate [ From Monitor] Pulse Rate [ Left Radial] Pulse Rate [ Right Dorsalis Pedis] Pulse Rate [ Right Radial] Respiratory 21 21 22 Rate Respiratory Rate [Bilateral Throughout] Blood Pressure 154/76 154/76 154/76 O2 Sat by Pulse 97 97 95 Oximetry O2 Sat by Pulse Oximetry [ Assessment] 03/05/19 03/05/19 03/05/19 23:16 23:20 23:26 Temperature Pulse Rate 80 85 85 Pulse Rate [ Bilateral Throughout] Pulse Rate [ From Monitor] Pulse Rate [ Left Radial] Pulse Rate [ Right Dorsalis Pedis] Pulse Rate [ Right Radial] Respiratory 21 17 23 Rate Respiratory Rate [Bilateral Throughout] Blood Pressure 154/76 154/76 154/76 O2 Sat by Pulse 99 100 100 Oximetry O2 Sat by Pulse Oximetry [ Assessment] 03/05/19 03/05/19 03/05/19 23:30 23:34 23:36 Temperature Pulse Rate 80 79 78 Pulse Rate [ Bilateral Throughout] Pulse Rate [ From Monitor] Pulse Rate [ Left Radial] Pulse Rate [ Right Dorsalis Pedis] Pulse Rate [ Right Radial] Respiratory 23 22 Rate Respiratory Rate [Bilateral Throughout] Blood Pressure 158/93 158/93 158/93 O2 Sat by Pulse 79 L 100 Oximetry O2 Sat by Pulse Oximetry [ Assessment] 03/05/19 03/05/19 03/05/19 23:40 23:46 23:50 Temperature Pulse Rate 80 75 87 Pulse Rate [ Bilateral Throughout] Pulse Rate [ From Monitor] Pulse Rate [ Left Radial] Pulse Rate [ Right Dorsalis Pedis] Pulse Rate [ Right Radial] Respiratory 21 22 21 Rate Respiratory Rate [Bilateral Throughout] Blood Pressure 158/93 158/93 158/93 O2 Sat by Pulse 100 98 99 Oximetry O2 Sat by Pulse Oximetry [ Assessment] 03/05/19 03/05/19 03/06/19 23:52 23:56 00:00 Temperature 98.9 F Pulse Rate 79 74 Pulse Rate [ Bilateral Throughout] Pulse Rate [ 41 L From Monitor] Pulse Rate [ 41 L Left Radial] Pulse Rate [ 41 L Right Dorsalis Pedis] Pulse Rate [ 41 L Right Radial] Respiratory 21 21 Rate Respiratory Rate [Bilateral Throughout] Blood Pressure 158/93 166/86 O2 Sat by Pulse 100 99 Oximetry O2 Sat by Pulse Oximetry [ Assessment] 03/06/19 03/06/19 03/06/19 00:06 00:10 00:16 Temperature Pulse Rate 84 76 74 Pulse Rate [ Bilateral Throughout] Pulse Rate [ From Monitor] Pulse Rate [ Left Radial] Pulse Rate [ Right Dorsalis Pedis] Pulse Rate [ Right Radial] Respiratory 23 21 21 Rate Respiratory Rate [Bilateral Throughout] Blood Pressure 166/86 166/86 166/86 O2 Sat by Pulse 98 97 100 Oximetry O2 Sat by Pulse Oximetry [ Assessment] 03/06/19 03/06/19 03/06/19 00:20 00:26 00:30 Temperature Pulse Rate 76 74 76 Pulse Rate [ Bilateral Throughout] Pulse Rate [ From Monitor] Pulse Rate [ Left Radial] Pulse Rate [ Right Dorsalis Pedis] Pulse Rate [ Right Radial] Respiratory 21 21 22 Rate Respiratory Rate [Bilateral Throughout] Blood Pressure 166/86 166/86 159/84 O2 Sat by Pulse 99 96 97 Oximetry O2 Sat by Pulse Oximetry [ Assessment] 03/06/19 03/06/19 03/06/19 00:36 00:40 00:46 Temperature Pulse Rate 88 74 73 Pulse Rate [ Bilateral Throughout] Pulse Rate [ From Monitor] Pulse Rate [ Left Radial] Pulse Rate [ Right Dorsalis Pedis] Pulse Rate [ Right Radial] Respiratory 19 23 21 Rate Respiratory Rate [Bilateral Throughout] Blood Pressure 159/84 159/84 159/84 O2 Sat by Pulse 95 96 93 Oximetry O2 Sat by Pulse Oximetry [ Assessment] 03/06/19 03/06/19 03/06/19 00:50 00:56 01:00 Temperature Pulse Rate 80 80 74 Pulse Rate [ Bilateral Throughout] Pulse Rate [ From Monitor] Pulse Rate [ Left Radial] Pulse Rate [ Right Dorsalis Pedis] Pulse Rate [ Right Radial] Respiratory 19 22 21 Rate Respiratory Rate [Bilateral Throughout] Blood Pressure 166/86 166/86 157/84 O2 Sat by Pulse 99 94 100 Oximetry O2 Sat by Pulse Oximetry [ Assessment] 03/06/19 03/06/19 03/06/19 01:06 01:10 01:16 Temperature Pulse Rate 74 69 73 Pulse Rate [ Bilateral Throughout] Pulse Rate [ From Monitor] Pulse Rate [ Left Radial] Pulse Rate [ Right Dorsalis Pedis] Pulse Rate [ Right Radial] Respiratory 20 18 18 Rate Respiratory Rate [Bilateral Throughout] Blood Pressure 157/84 157/84 157/84 O2 Sat by Pulse 92 100 97 Oximetry O2 Sat by Pulse Oximetry [ Assessment] 03/06/19 03/06/19 03/06/19 01:20 01:26 01:30 Temperature Pulse Rate 71 76 75 Pulse Rate [ Bilateral Throughout] Pulse Rate [ From Monitor] Pulse Rate [ Left Radial] Pulse Rate [ Right Dorsalis Pedis] Pulse Rate [ Right Radial] Respiratory 18 20 15 Rate Respiratory Rate [Bilateral Throughout] Blood Pressure 157/84 157/84 166/87 O2 Sat by Pulse 100 100 96 Oximetry O2 Sat by Pulse Oximetry [ Assessment] 03/06/19 03/06/19 03/06/19 01:36 01:40 01:46 Temperature Pulse Rate 77 72 76 Pulse Rate [ Bilateral Throughout] Pulse Rate [ From Monitor] Pulse Rate [ Left Radial] Pulse Rate [ Right Dorsalis Pedis] Pulse Rate [ Right Radial] Respiratory 22 19 21 Rate Respiratory Rate [Bilateral Throughout] Blood Pressure 166/87 166/87 166/87 O2 Sat by Pulse 100 97 100 Oximetry O2 Sat by Pulse Oximetry [ Assessment] 03/06/19 03/06/19 03/06/19 01:50 01:56 02:00 Temperature Pulse Rate 70 81 84 Pulse Rate [ Bilateral Throughout] Pulse Rate [ From Monitor] Pulse Rate [ Left Radial] Pulse Rate [ Right Dorsalis Pedis] Pulse Rate [ Right Radial] Respiratory 20 21 21 Rate Respiratory Rate [Bilateral Throughout] Blood Pressure 166/87 166/87 163/90 O2 Sat by Pulse 95 96 94 Oximetry O2 Sat by Pulse Oximetry [ Assessment] 03/06/19 03/06/19 03/06/19 02:06 02:10 02:16 Temperature Pulse Rate 80 82 76 Pulse Rate [ Bilateral Throughout] Pulse Rate [ From Monitor] Pulse Rate [ Left Radial] Pulse Rate [ Right Dorsalis Pedis] Pulse Rate [ Right Radial] Respiratory 20 22 20 Rate Respiratory Rate [Bilateral Throughout] Blood Pressure 163/90 163/90 163/90 O2 Sat by Pulse 94 97 91 Oximetry O2 Sat by Pulse Oximetry [ Assessment] 03/06/19 03/06/19 03/06/19 02:20 02:26 02:30 Temperature Pulse Rate 81 87 80 Pulse Rate [ Bilateral Throughout] Pulse Rate [ From Monitor] Pulse Rate [ Left Radial] Pulse Rate [ Right Dorsalis Pedis] Pulse Rate [ Right Radial] Respiratory 21 22 19 Rate Respiratory Rate [Bilateral Throughout] Blood Pressure 163/90 163/90 161/84 O2 Sat by Pulse 90 96 91 Oximetry O2 Sat by Pulse Oximetry [ Assessment] 03/06/19 03/06/19 03/06/19 02:36 02:40 02:46 Temperature Pulse Rate 78 73 78 Pulse Rate [ Bilateral Throughout] Pulse Rate [ From Monitor] Pulse Rate [ Left Radial] Pulse Rate [ Right Dorsalis Pedis] Pulse Rate [ Right Radial] Respiratory 21 19 21 Rate Respiratory Rate [Bilateral Throughout] Blood Pressure 161/84 161/84 161/84 O2 Sat by Pulse 100 96 100 Oximetry O2 Sat by Pulse Oximetry [ Assessment] 03/06/19 03/06/19 03/06/19 02:50 02:56 03:00 Temperature Pulse Rate 80 78 77 Pulse Rate [ Bilateral Throughout] Pulse Rate [ From Monitor] Pulse Rate [ Left Radial] Pulse Rate [ Right Dorsalis Pedis] Pulse Rate [ Right Radial] Respiratory 20 20 20 Rate Respiratory Rate [Bilateral Throughout] Blood Pressure 161/84 161/84 165/86 O2 Sat by Pulse 99 93 100 Oximetry O2 Sat by Pulse Oximetry [ Assessment] 03/06/19 03/06/19 03/06/19 03:06 03:10 03:16 Temperature Pulse Rate 82 76 78 Pulse Rate [ Bilateral Throughout] Pulse Rate [ From Monitor] Pulse Rate [ Left Radial] Pulse Rate [ Right Dorsalis Pedis] Pulse Rate [ Right Radial] Respiratory 21 20 21 Rate Respiratory Rate [Bilateral Throughout] Blood Pressure 165/86 165/86 165/86 O2 Sat by Pulse 92 100 100 Oximetry O2 Sat by Pulse Oximetry [ Assessment] 03/06/19 03/06/19 03/06/19 03:20 03:23 03:26 Temperature 98.9 F Pulse Rate 77 75 Pulse Rate [ Bilateral Throughout] Pulse Rate [ From Monitor] Pulse Rate [ Left Radial] Pulse Rate [ Right Dorsalis Pedis] Pulse Rate [ Right Radial] Respiratory 21 20 Rate Respiratory Rate [Bilateral Throughout] Blood Pressure 165/86 165/86 O2 Sat by Pulse 89 100 Oximetry O2 Sat by Pulse Oximetry [ Assessment] 03/06/19 03/06/19 03/06/19 03:30 03:36 03:40 Temperature Pulse Rate 78 85 91 H Pulse Rate [ 90 Bilateral Throughout] Pulse Rate [ From Monitor] Pulse Rate [ Left Radial] Pulse Rate [ Right Dorsalis Pedis] Pulse Rate [ Right Radial] Respiratory 20 20 17 Rate Respiratory 20 Rate [Bilateral Throughout] Blood Pressure 175/90 175/90 175/90 O2 Sat by Pulse 100 97 90 Oximetry O2 Sat by Pulse 98 Oximetry [ Assessment] 03/06/19 03/06/19 03/06/19 03:46 03:50 03:56 Temperature Pulse Rate 89 89 101 H Pulse Rate [ Bilateral Throughout] Pulse Rate [ From Monitor] Pulse Rate [ Left Radial] Pulse Rate [ Right Dorsalis Pedis] Pulse Rate [ Right Radial] Respiratory 16 18 18 Rate Respiratory Rate [Bilateral Throughout] Blood Pressure 175/90 175/90 175/90 O2 Sat by Pulse 96 92 100 Oximetry O2 Sat by Pulse Oximetry [ Assessment] 03/06/19 03/06/19 03/06/19 04:00 04:06 04:10 Temperature Pulse Rate 90 99 H 93 H Pulse Rate [ Bilateral Throughout] Pulse Rate [ 41 L From Monitor] Pulse Rate [ 41 L Left Radial] Pulse Rate [ 41 L Right Dorsalis Pedis] Pulse Rate [ 41 L Right Radial] Respiratory 27 H 17 26 H Rate Respiratory Rate [Bilateral Throughout] Blood Pressure 178/104 178/104 176/102 O2 Sat by Pulse 99 99 100 Oximetry O2 Sat by Pulse Oximetry [ Assessment] 03/06/19 03/06/19 03/06/19 04:16 04:20 04:26 Temperature Pulse Rate 93 H 93 H 98 H Pulse Rate [ Bilateral Throughout] Pulse Rate [ From Monitor] Pulse Rate [ Left Radial] Pulse Rate [ Right Dorsalis Pedis] Pulse Rate [ Right Radial] Respiratory 25 H 25 H 21 Rate Respiratory Rate [Bilateral Throughout] Blood Pressure 176/102 176/102 176/102 O2 Sat by Pulse 99 100 100 Oximetry O2 Sat by Pulse Oximetry [ Assessment] 03/06/19 03/06/19 03/06/19 04:30 04:36 04:40 Temperature Pulse Rate 93 H 96 H 97 H Pulse Rate [ Bilateral Throughout] Pulse Rate [ From Monitor] Pulse Rate [ Left Radial] Pulse Rate [ Right Dorsalis Pedis] Pulse Rate [ Right Radial] Respiratory 22 21 24 Rate Respiratory Rate [Bilateral Throughout] Blood Pressure 173/97 173/97 173/97 O2 Sat by Pulse 98 100 100 Oximetry O2 Sat by Pulse Oximetry [ Assessment] 03/06/19 03/06/19 03/06/19 04:46 04:50 04:56 Temperature Pulse Rate 96 H 94 H 93 H Pulse Rate [ Bilateral Throughout] Pulse Rate [ From Monitor] Pulse Rate [ Left Radial] Pulse Rate [ Right Dorsalis Pedis] Pulse Rate [ Right Radial] Respiratory 25 H 23 26 H Rate Respiratory Rate [Bilateral Throughout] Blood Pressure 173/97 173/97 173/97 O2 Sat by Pulse 100 100 99 Oximetry O2 Sat by Pulse Oximetry [ Assessment] 03/06/19 03/06/19 03/06/19 05:00 05:06 05:10 Temperature Pulse Rate 91 H 94 H 95 H Pulse Rate [ Bilateral Throughout] Pulse Rate [ From Monitor] Pulse Rate [ Left Radial] Pulse Rate [ Right Dorsalis Pedis] Pulse Rate [ Right Radial] Respiratory 23 17 25 H Rate Respiratory Rate [Bilateral Throughout] Blood Pressure 162/96 162/96 162/96 O2 Sat by Pulse 99 100 100 Oximetry O2 Sat by Pulse Oximetry [ Assessment] 03/06/19 03/06/19 03/06/19 05:16 05:20 05:26 Temperature Pulse Rate 94 H 88 96 H Pulse Rate [ Bilateral Throughout] Pulse Rate [ From Monitor] Pulse Rate [ Left Radial] Pulse Rate [ Right Dorsalis Pedis] Pulse Rate [ Right Radial] Respiratory 12 21 23 Rate Respiratory Rate [Bilateral Throughout] Blood Pressure 162/96 162/96 162/96 O2 Sat by Pulse 100 100 100 Oximetry O2 Sat by Pulse Oximetry [ Assessment] 03/06/19 03/06/19 03/06/19 05:30 05:36 05:40 Temperature Pulse Rate 97 H 96 H 92 H Pulse Rate [ Bilateral Throughout] Pulse Rate [ From Monitor] Pulse Rate [ Left Radial] Pulse Rate [ Right Dorsalis Pedis] Pulse Rate [ Right Radial] Respiratory 17 24 23 Rate Respiratory Rate [Bilateral Throughout] Blood Pressure 180/102 180/102 180/102 O2 Sat by Pulse 98 100 100 Oximetry O2 Sat by Pulse Oximetry [ Assessment] 03/06/19 03/06/19 03/06/19 05:46 05:50 05:56 Temperature Pulse Rate 93 H 92 H 89 Pulse Rate [ Bilateral Throughout] Pulse Rate [ From Monitor] Pulse Rate [ Left Radial] Pulse Rate [ Right Dorsalis Pedis] Pulse Rate [ Right Radial] Respiratory 20 21 20 Rate Respiratory Rate [Bilateral Throughout] Blood Pressure 180/102 180/102 180/102 O2 Sat by Pulse 100 100 100 Oximetry O2 Sat by Pulse Oximetry [ Assessment] 03/06/19 03/06/19 03/06/19 06:00 06:06 06:10 Temperature Pulse Rate 91 H 99 H 101 H Pulse Rate [ Bilateral Throughout] Pulse Rate [ From Monitor] Pulse Rate [ Left Radial] Pulse Rate [ Right Dorsalis Pedis] Pulse Rate [ Right Radial] Respiratory 20 25 H 25 H Rate Respiratory Rate [Bilateral Throughout] Blood Pressure 189/106 189/106 189/106 O2 Sat by Pulse 98 100 100 Oximetry O2 Sat by Pulse Oximetry [ Assessment] 03/06/19 03/06/19 03/06/19 06:16 06:20 06:26 Temperature Pulse Rate 98 H 93 H 98 H Pulse Rate [ Bilateral Throughout] Pulse Rate [ From Monitor] Pulse Rate [ Left Radial] Pulse Rate [ Right Dorsalis Pedis] Pulse Rate [ Right Radial] Respiratory 25 H 23 20 Rate Respiratory Rate [Bilateral Throughout] Blood Pressure 189/106 189/106 189/106 O2 Sat by Pulse 100 100 100 Oximetry O2 Sat by Pulse Oximetry [ Assessment] 03/06/19 03/06/19 03/06/19 07:10 07:27 07:34 Temperature Pulse Rate 88 Pulse Rate [ 97 H Bilateral Throughout] Pulse Rate [ From Monitor] Pulse Rate [ Left Radial] Pulse Rate [ Right Dorsalis Pedis] Pulse Rate [ Right Radial] Respiratory Rate Respiratory 23 Rate [Bilateral Throughout] Blood Pressure 191/101 O2 Sat by Pulse 100 Oximetry O2 Sat by Pulse Oximetry [ Assessment] 03/06/19 03/06/19 08:00 09:19 Temperature 98.6 F Pulse Rate Pulse Rate [ Bilateral Throughout] Pulse Rate [ From Monitor] Pulse Rate [ Left Radial] Pulse Rate [ Right Dorsalis Pedis] Pulse Rate [ Right Radial] Respiratory Rate Respiratory Rate [Bilateral Throughout] Blood Pressure O2 Sat by Pulse Oximetry O2 Sat by Pulse 97 Oximetry [ Assessment] - Labs CBC & Chem 7: 03/03/19 04:24 03/05/19 10:42 Labs: Abnormal lab results 03/05/19 03/05/19 03/05/19 Range/Units 10:42 12:26 17:24 Carbon Dioxide 20 L (22-30) mmol/L BUN 54 H (7-17) mg/dL Creatinine 0.5 L (0.7-1.2) mg/dL Glucose 152 H (65-100) mg/dL POC Glucose 154 H 208 H (70-105) Calcium 7.7 L (8.4-10.2) mg/dL 03/05/19 03/06/19 Range/Units 23:25 05:15 Carbon Dioxide (22-30) mmol/L BUN (7-17) mg/dL Creatinine (0.7-1.2) mg/dL Glucose (65-100) mg/dL POC Glucose 141 H 138 H (70-105) Calcium (8.4-10.2) mg/dL
[2019-03-06] MEDS: METAMUCIL PO SCH (10:33)
--- NOTE | 2019-03-06 10:34 | Progress Note ---
Assessment and Plan 53 y/o female with bleeding from around trach site and thrombocytopenia and uremia. 1. Continue T-piece 2. No further bleeding 3. Discharge plans have changed now that off the vent 4. Stable for transfer to floor. Subjective Date of service: 03/06/19 Principal diagnosis: Acute/chronic respiratory failure Interval history: No acut events. Remains on T-piece and was on this overnight as well. Objective Vital Signs - 12hr 03/05/19 03/05/19 03/05/19 22:36 22:40 22:46 Temperature Pulse Rate 76 77 72 Pulse Rate [ Bilateral Throughout] Pulse Rate [ From Monitor] Pulse Rate [ Left Radial] Pulse Rate [ Right Dorsalis Pedis] Pulse Rate [ Right Radial] Respiratory 21 19 19 Rate Respiratory Rate [Bilateral Throughout] Blood Pressure 158/81 158/81 158/81 O2 Sat by Pulse 93 97 96 Oximetry O2 Sat by Pulse Oximetry [ Assessment] 03/05/19 03/05/19 03/05/19 22:50 22:56 23:00 Temperature Pulse Rate 68 74 78 Pulse Rate [ Bilateral Throughout] Pulse Rate [ From Monitor] Pulse Rate [ Left Radial] Pulse Rate [ Right Dorsalis Pedis] Pulse Rate [ Right Radial] Respiratory 18 20 21 Rate Respiratory Rate [Bilateral Throughout] Blood Pressure 158/81 158/81 154/76 O2 Sat by Pulse 100 100 97 Oximetry O2 Sat by Pulse Oximetry [ Assessment] 03/05/19 03/05/19 03/05/19 23:06 23:10 23:16 Temperature Pulse Rate 79 78 80 Pulse Rate [ Bilateral Throughout] Pulse Rate [ From Monitor] Pulse Rate [ Left Radial] Pulse Rate [ Right Dorsalis Pedis] Pulse Rate [ Right Radial] Respiratory 21 22 21 Rate Respiratory Rate [Bilateral Throughout] Blood Pressure 154/76 154/76 154/76 O2 Sat by Pulse 97 95 99 Oximetry O2 Sat by Pulse Oximetry [ Assessment] 03/05/19 03/05/19 03/05/19 23:20 23:26 23:30 Temperature Pulse Rate 85 85 80 Pulse Rate [ Bilateral Throughout] Pulse Rate [ From Monitor] Pulse Rate [ Left Radial] Pulse Rate [ Right Dorsalis Pedis] Pulse Rate [ Right Radial] Respiratory 17 23 23 Rate Respiratory Rate [Bilateral Throughout] Blood Pressure 154/76 154/76 158/93 O2 Sat by Pulse 100 100 79 L Oximetry O2 Sat by Pulse Oximetry [ Assessment] 03/05/19 03/05/19 03/05/19 23:34 23:36 23:40 Temperature Pulse Rate 79 78 80 Pulse Rate [ Bilateral Throughout] Pulse Rate [ From Monitor] Pulse Rate [ Left Radial] Pulse Rate [ Right Dorsalis Pedis] Pulse Rate [ Right Radial] Respiratory 22 21 Rate Respiratory Rate [Bilateral Throughout] Blood Pressure 158/93 158/93 158/93 O2 Sat by Pulse 100 100 Oximetry O2 Sat by Pulse Oximetry [ Assessment] 03/05/19 03/05/19 03/05/19 23:46 23:50 23:52 Temperature 98.9 F Pulse Rate 75 87 Pulse Rate [ Bilateral Throughout] Pulse Rate [ From Monitor] Pulse Rate [ Left Radial] Pulse Rate [ Right Dorsalis Pedis] Pulse Rate [ Right Radial] Respiratory 22 21 Rate Respiratory Rate [Bilateral Throughout] Blood Pressure 158/93 158/93 O2 Sat by Pulse 98 99 Oximetry O2 Sat by Pulse Oximetry [ Assessment] 03/05/19 03/06/19 03/06/19 23:56 00:00 00:06 Temperature Pulse Rate 79 74 84 Pulse Rate [ Bilateral Throughout] Pulse Rate [ 41 L From Monitor] Pulse Rate [ 41 L Left Radial] Pulse Rate [ 41 L Right Dorsalis Pedis] Pulse Rate [ 41 L Right Radial] Respiratory 21 21 23 Rate Respiratory Rate [Bilateral Throughout] Blood Pressure 158/93 166/86 166/86 O2 Sat by Pulse 100 99 98 Oximetry O2 Sat by Pulse Oximetry [ Assessment] 03/06/19 03/06/19 03/06/19 00:10 00:16 00:20 Temperature Pulse Rate 76 74 76 Pulse Rate [ Bilateral Throughout] Pulse Rate [ From Monitor] Pulse Rate [ Left Radial] Pulse Rate [ Right Dorsalis Pedis] Pulse Rate [ Right Radial] Respiratory 21 21 21 Rate Respiratory Rate [Bilateral Throughout] Blood Pressure 166/86 166/86 166/86 O2 Sat by Pulse 97 100 99 Oximetry O2 Sat by Pulse Oximetry [ Assessment] 03/06/19 03/06/19 03/06/19 00:26 00:30 00:36 Temperature Pulse Rate 74 76 88 Pulse Rate [ Bilateral Throughout] Pulse Rate [ From Monitor] Pulse Rate [ Left Radial] Pulse Rate [ Right Dorsalis Pedis] Pulse Rate [ Right Radial] Respiratory 21 22 19 Rate Respiratory Rate [Bilateral Throughout] Blood Pressure 166/86 159/84 159/84 O2 Sat by Pulse 96 97 95 Oximetry O2 Sat by Pulse Oximetry [ Assessment] 03/06/19 03/06/19 03/06/19 00:40 00:46 00:50 Temperature Pulse Rate 74 73 80 Pulse Rate [ Bilateral Throughout] Pulse Rate [ From Monitor] Pulse Rate [ Left Radial] Pulse Rate [ Right Dorsalis Pedis] Pulse Rate [ Right Radial] Respiratory 23 21 19 Rate Respiratory Rate [Bilateral Throughout] Blood Pressure 159/84 159/84 166/86 O2 Sat by Pulse 96 93 99 Oximetry O2 Sat by Pulse Oximetry [ Assessment] 03/06/19 03/06/19 03/06/19 00:56 01:00 01:06 Temperature Pulse Rate 80 74 74 Pulse Rate [ Bilateral Throughout] Pulse Rate [ From Monitor] Pulse Rate [ Left Radial] Pulse Rate [ Right Dorsalis Pedis] Pulse Rate [ Right Radial] Respiratory 22 21 20 Rate Respiratory Rate [Bilateral Throughout] Blood Pressure 166/86 157/84 157/84 O2 Sat by Pulse 94 100 92 Oximetry O2 Sat by Pulse Oximetry [ Assessment] 03/06/19 03/06/19 03/06/19 01:10 01:16 01:20 Temperature Pulse Rate 69 73 71 Pulse Rate [ Bilateral Throughout] Pulse Rate [ From Monitor] Pulse Rate [ Left Radial] Pulse Rate [ Right Dorsalis Pedis] Pulse Rate [ Right Radial] Respiratory 18 18 18 Rate Respiratory Rate [Bilateral Throughout] Blood Pressure 157/84 157/84 157/84 O2 Sat by Pulse 100 97 100 Oximetry O2 Sat by Pulse Oximetry [ Assessment] 03/06/19 03/06/19 03/06/19 01:26 01:30 01:36 Temperature Pulse Rate 76 75 77 Pulse Rate [ Bilateral Throughout] Pulse Rate [ From Monitor] Pulse Rate [ Left Radial] Pulse Rate [ Right Dorsalis Pedis] Pulse Rate [ Right Radial] Respiratory 20 15 22 Rate Respiratory Rate [Bilateral Throughout] Blood Pressure 157/84 166/87 166/87 O2 Sat by Pulse 100 96 100 Oximetry O2 Sat by Pulse Oximetry [ Assessment] 03/06/19 03/06/19 03/06/19 01:40 01:46 01:50 Temperature Pulse Rate 72 76 70 Pulse Rate [ Bilateral Throughout] Pulse Rate [ From Monitor] Pulse Rate [ Left Radial] Pulse Rate [ Right Dorsalis Pedis] Pulse Rate [ Right Radial] Respiratory 19 21 20 Rate Respiratory Rate [Bilateral Throughout] Blood Pressure 166/87 166/87 166/87 O2 Sat by Pulse 97 100 95 Oximetry O2 Sat by Pulse Oximetry [ Assessment] 03/06/19 03/06/19 03/06/19 01:56 02:00 02:06 Temperature Pulse Rate 81 84 80 Pulse Rate [ Bilateral Throughout] Pulse Rate [ From Monitor] Pulse Rate [ Left Radial] Pulse Rate [ Right Dorsalis Pedis] Pulse Rate [ Right Radial] Respiratory 21 21 20 Rate Respiratory Rate [Bilateral Throughout] Blood Pressure 166/87 163/90 163/90 O2 Sat by Pulse 96 94 94 Oximetry O2 Sat by Pulse Oximetry [ Assessment] 03/06/19 03/06/19 03/06/19 02:10 02:16 02:20 Temperature Pulse Rate 82 76 81 Pulse Rate [ Bilateral Throughout] Pulse Rate [ From Monitor] Pulse Rate [ Left Radial] Pulse Rate [ Right Dorsalis Pedis] Pulse Rate [ Right Radial] Respiratory 22 20 21 Rate Respiratory Rate [Bilateral Throughout] Blood Pressure 163/90 163/90 163/90 O2 Sat by Pulse 97 91 90 Oximetry O2 Sat by Pulse Oximetry [ Assessment] 03/06/19 03/06/19 03/06/19 02:26 02:30 02:36 Temperature Pulse Rate 87 80 78 Pulse Rate [ Bilateral Throughout] Pulse Rate [ From Monitor] Pulse Rate [ Left Radial] Pulse Rate [ Right Dorsalis Pedis] Pulse Rate [ Right Radial] Respiratory 22 19 21 Rate Respiratory Rate [Bilateral Throughout] Blood Pressure 163/90 161/84 161/84 O2 Sat by Pulse 96 91 100 Oximetry O2 Sat by Pulse Oximetry [ Assessment] 03/06/19 03/06/19 03/06/19 02:40 02:46 02:50 Temperature Pulse Rate 73 78 80 Pulse Rate [ Bilateral Throughout] Pulse Rate [ From Monitor] Pulse Rate [ Left Radial] Pulse Rate [ Right Dorsalis Pedis] Pulse Rate [ Right Radial] Respiratory 19 21 20 Rate Respiratory Rate [Bilateral Throughout] Blood Pressure 161/84 161/84 161/84 O2 Sat by Pulse 96 100 99 Oximetry O2 Sat by Pulse Oximetry [ Assessment] 03/06/19 03/06/19 03/06/19 02:56 03:00 03:06 Temperature Pulse Rate 78 77 82 Pulse Rate [ Bilateral Throughout] Pulse Rate [ From Monitor] Pulse Rate [ Left Radial] Pulse Rate [ Right Dorsalis Pedis] Pulse Rate [ Right Radial] Respiratory 20 20 21 Rate Respiratory Rate [Bilateral Throughout] Blood Pressure 161/84 165/86 165/86 O2 Sat by Pulse 93 100 92 Oximetry O2 Sat by Pulse Oximetry [ Assessment] 03/06/19 03/06/19 03/06/19 03:10 03:16 03:20 Temperature Pulse Rate 76 78 77 Pulse Rate [ Bilateral Throughout] Pulse Rate [ From Monitor] Pulse Rate [ Left Radial] Pulse Rate [ Right Dorsalis Pedis] Pulse Rate [ Right Radial] Respiratory 20 21 21 Rate Respiratory Rate [Bilateral Throughout] Blood Pressure 165/86 165/86 165/86 O2 Sat by Pulse 100 100 89 Oximetry O2 Sat by Pulse Oximetry [ Assessment] 03/06/19 03/06/19 03/06/19 03:23 03:26 03:30 Temperature 98.9 F Pulse Rate 75 78 Pulse Rate [ 90 Bilateral Throughout] Pulse Rate [ From Monitor] Pulse Rate [ Left Radial] Pulse Rate [ Right Dorsalis Pedis] Pulse Rate [ Right Radial] Respiratory 20 20 Rate Respiratory 20 Rate [Bilateral Throughout] Blood Pressure 165/86 175/90 O2 Sat by Pulse 100 100 Oximetry O2 Sat by Pulse 98 Oximetry [ Assessment] 03/06/19 03/06/19 03/06/19 03:36 03:40 03:46 Temperature Pulse Rate 85 91 H 89 Pulse Rate [ Bilateral Throughout] Pulse Rate [ From Monitor] Pulse Rate [ Left Radial] Pulse Rate [ Right Dorsalis Pedis] Pulse Rate [ Right Radial] Respiratory 20 17 16 Rate Respiratory Rate [Bilateral Throughout] Blood Pressure 175/90 175/90 175/90 O2 Sat by Pulse 97 90 96 Oximetry O2 Sat by Pulse Oximetry [ Assessment] 03/06/19 03/06/19 03/06/19 03:50 03:56 04:00 Temperature Pulse Rate 89 101 H 90 Pulse Rate [ Bilateral Throughout] Pulse Rate [ 41 L From Monitor] Pulse Rate [ 41 L Left Radial] Pulse Rate [ 41 L Right Dorsalis Pedis] Pulse Rate [ 41 L Right Radial] Respiratory 18 18 27 H Rate Respiratory Rate [Bilateral Throughout] Blood Pressure 175/90 175/90 178/104 O2 Sat by Pulse 92 100 99 Oximetry O2 Sat by Pulse Oximetry [ Assessment] 03/06/19 03/06/19 03/06/19 04:06 04:10 04:16 Temperature Pulse Rate 99 H 93 H 93 H Pulse Rate [ Bilateral Throughout] Pulse Rate [ From Monitor] Pulse Rate [ Left Radial] Pulse Rate [ Right Dorsalis Pedis] Pulse Rate [ Right Radial] Respiratory 17 26 H 25 H Rate Respiratory Rate [Bilateral Throughout] Blood Pressure 178/104 176/102 176/102 O2 Sat by Pulse 99 100 99 Oximetry O2 Sat by Pulse Oximetry [ Assessment] 03/06/19 03/06/19 03/06/19 04:20 04:26 04:30 Temperature Pulse Rate 93 H 98 H 93 H Pulse Rate [ Bilateral Throughout] Pulse Rate [ From Monitor] Pulse Rate [ Left Radial] Pulse Rate [ Right Dorsalis Pedis] Pulse Rate [ Right Radial] Respiratory 25 H 21 22 Rate Respiratory Rate [Bilateral Throughout] Blood Pressure 176/102 176/102 173/97 O2 Sat by Pulse 100 100 98 Oximetry O2 Sat by Pulse Oximetry [ Assessment] 03/06/19 03/06/19 03/06/19 04:36 04:40 04:46 Temperature Pulse Rate 96 H 97 H 96 H Pulse Rate [ Bilateral Throughout] Pulse Rate [ From Monitor] Pulse Rate [ Left Radial] Pulse Rate [ Right Dorsalis Pedis] Pulse Rate [ Right Radial] Respiratory 21 24 25 H Rate Respiratory Rate [Bilateral Throughout] Blood Pressure 173/97 173/97 173/97 O2 Sat by Pulse 100 100 100 Oximetry O2 Sat by Pulse Oximetry [ Assessment] 03/06/19 03/06/19 03/06/19 04:50 04:56 05:00 Temperature Pulse Rate 94 H 93 H 91 H Pulse Rate [ Bilateral Throughout] Pulse Rate [ From Monitor] Pulse Rate [ Left Radial] Pulse Rate [ Right Dorsalis Pedis] Pulse Rate [ Right Radial] Respiratory 23 26 H 23 Rate Respiratory Rate [Bilateral Throughout] Blood Pressure 173/97 173/97 162/96 O2 Sat by Pulse 100 99 99 Oximetry O2 Sat by Pulse Oximetry [ Assessment] 03/06/19 03/06/19 03/06/19 05:06 05:10 05:16 Temperature Pulse Rate 94 H 95 H 94 H Pulse Rate [ Bilateral Throughout] Pulse Rate [ From Monitor] Pulse Rate [ Left Radial] Pulse Rate [ Right Dorsalis Pedis] Pulse Rate [ Right Radial] Respiratory 17 25 H 12 Rate Respiratory Rate [Bilateral Throughout] Blood Pressure 162/96 162/96 162/96 O2 Sat by Pulse 100 100 100 Oximetry O2 Sat by Pulse Oximetry [ Assessment] 03/06/19 03/06/19 03/06/19 05:20 05:26 05:30 Temperature Pulse Rate 88 96 H 97 H Pulse Rate [ Bilateral Throughout] Pulse Rate [ From Monitor] Pulse Rate [ Left Radial] Pulse Rate [ Right Dorsalis Pedis] Pulse Rate [ Right Radial] Respiratory 21 23 17 Rate Respiratory Rate [Bilateral Throughout] Blood Pressure 162/96 162/96 180/102 O2 Sat by Pulse 100 100 98 Oximetry O2 Sat by Pulse Oximetry [ Assessment] 03/06/19 03/06/19 03/06/19 05:36 05:40 05:46 Temperature Pulse Rate 96 H 92 H 93 H Pulse Rate [ Bilateral Throughout] Pulse Rate [ From Monitor] Pulse Rate [ Left Radial] Pulse Rate [ Right Dorsalis Pedis] Pulse Rate [ Right Radial] Respiratory 24 23 20 Rate Respiratory Rate [Bilateral Throughout] Blood Pressure 180/102 180/102 180/102 O2 Sat by Pulse 100 100 100 Oximetry O2 Sat by Pulse Oximetry [ Assessment] 03/06/19 03/06/19 03/06/19 05:50 05:56 06:00 Temperature Pulse Rate 92 H 89 91 H Pulse Rate [ Bilateral Throughout] Pulse Rate [ From Monitor] Pulse Rate [ Left Radial] Pulse Rate [ Right Dorsalis Pedis] Pulse Rate [ Right Radial] Respiratory 21 20 20 Rate Respiratory Rate [Bilateral Throughout] Blood Pressure 180/102 180/102 189/106 O2 Sat by Pulse 100 100 98 Oximetry O2 Sat by Pulse Oximetry [ Assessment] 03/06/19 03/06/19 03/06/19 06:06 06:10 06:16 Temperature Pulse Rate 99 H 101 H 98 H Pulse Rate [ Bilateral Throughout] Pulse Rate [ From Monitor] Pulse Rate [ Left Radial] Pulse Rate [ Right Dorsalis Pedis] Pulse Rate [ Right Radial] Respiratory 25 H 25 H 25 H Rate Respiratory Rate [Bilateral Throughout] Blood Pressure 189/106 189/106 189/106 O2 Sat by Pulse 100 100 100 Oximetry O2 Sat by Pulse Oximetry [ Assessment] 03/06/19 03/06/19 03/06/19 06:20 06:26 07:10 Temperature Pulse Rate 93 H 98 H 88 Pulse Rate [ Bilateral Throughout] Pulse Rate [ From Monitor] Pulse Rate [ Left Radial] Pulse Rate [ Right Dorsalis Pedis] Pulse Rate [ Right Radial] Respiratory 23 20 Rate Respiratory Rate [Bilateral Throughout] Blood Pressure 189/106 189/106 191/101 O2 Sat by Pulse 100 100 Oximetry O2 Sat by Pulse Oximetry [ Assessment] 03/06/19 03/06/19 03/06/19 07:27 07:34 08:00 Temperature 98.6 F Pulse Rate Pulse Rate [ 97 H Bilateral Throughout] Pulse Rate [ From Monitor] Pulse Rate [ Left Radial] Pulse Rate [ Right Dorsalis Pedis] Pulse Rate [ Right Radial] Respiratory Rate Respiratory 23 Rate [Bilateral Throughout] Blood Pressure O2 Sat by Pulse 100 Oximetry O2 Sat by Pulse Oximetry [ Assessment] 03/06/19 09:19 Temperature Pulse Rate Pulse Rate [ Bilateral Throughout] Pulse Rate [ From Monitor] Pulse Rate [ Left Radial] Pulse Rate [ Right Dorsalis Pedis] Pulse Rate [ Right Radial] Respiratory Rate Respiratory Rate [Bilateral Throughout] Blood Pressure O2 Sat by Pulse Oximetry O2 Sat by Pulse 97 Oximetry [ Assessment] Constitutional: alert, other (critically ill on ventilator) Eyes: non-icteric ENT: oropharynx moist, other (tpiece in place) Neck: other (trach present and midline, old blood present around trach) Effort: normal Ascultation: Bilateral: clear Percussion: Bilateral: not dull Tactile fremitus: Bilateral: normal Cardiovascular: other (sinus tach) Gastrointestinal: normoactive bowel sounds, soft, non-tender Extremities: no cyanosis, no edema Neurologic: normal mental status, other (LUE weakness) Psychiatric: mood appropriate, affect normal CBC and BMP: 03/03/19 04:24 03/05/19 10:42 ABG, PT/INR, D-dimer: ABG POC ABG pH 7.344 (7.35-7.45) L 03/03/19 18:57 POC ABG pCO2 39.5 (35-45) 03/03/19 18:57 POC ABG pO2 115 (80-105) H 03/03/19 18:57 POC ABG HCO3 21.5 (22-26 mml/L) 03/03/19 18:57 POC ABG Total CO2 23 (23-27mmol/L) 03/03/19 18:57 POC ABG O2 Sat 98 03/03/19 18:57 PT/INR, D-dimer PT 16.2 Sec. (12.2-14.9) H 02/28/19 10:18 INR 1.34 (0.87-1.13) H 02/28/19 10:18 Abnormal lab findings: Abnormal Labs 02/28/19 02/28/19 02/28/19 10:18 10:18 10:18 WBC 4.2 L RBC 2.62 L Hgb 8.1 L Hct 24.2 L RDW Plt Count 106 L Seg Neuts % (Manual) 86.0 H Lymphocytes % (Manual) 7.0 L Monocytes % (Manual) Seg Neutrophils # Man Lymphocytes # (Manual) 0.3 L PT 16.2 H INR 1.34 H POC ABG pH POC ABG pCO2 POC ABG pO2 Sodium 152 H Chloride 117.6 H Carbon Dioxide BUN 84 H Creatinine Glucose 130 H POC Glucose Calcium 7.8 L AST 49 H Total Protein 5.0 L Albumin 2.0 L Crossmatch 02/28/19 02/28/19 02/28/19 10:18 15:11 15:58 WBC RBC Hgb 6.7 L Hct 20.0 L RDW Plt Count Seg Neuts % (Manual) Lymphocytes % (Manual) Monocytes % (Manual) Seg Neutrophils # Man Lymphocytes # (Manual) PT INR POC ABG pH POC ABG pCO2 33.9 L POC ABG pO2 Sodium Chloride Carbon Dioxide BUN Creatinine Glucose POC Glucose Calcium AST Total Protein Albumin Crossmatch See Detail 02/28/19 03/01/19 03/01/19 22:34 03:34 05:49 WBC RBC Hgb 9.0 L Hct 26.8 L D RDW Plt Count Seg Neuts % (Manual) Lymphocytes % (Manual) Monocytes % (Manual) Seg Neutrophils # Man Lymphocytes # (Manual) PT INR POC ABG pH POC ABG pCO2 POC ABG pO2 198 H Sodium 152 H Chloride 119.4 H Carbon Dioxide BUN 95 H Creatinine Glucose POC Glucose Calcium 7.7 L AST 49 H Total Protein 5.0 L Albumin 1.8 L Crossmatch 03/01/19 03/01/19 03/01/19 05:49 20:32 23:13 WBC RBC Hgb 7.5 L Hct 22.5 L RDW Plt Count Seg Neuts % (Manual) Lymphocytes % (Manual) Monocytes % (Manual) Seg Neutrophils # Man Lymphocytes # (Manual) PT INR POC ABG pH POC ABG pCO2 POC ABG pO2 Sodium Chloride Carbon Dioxide BUN Creatinine Glucose POC Glucose 106 H 137 H Calcium AST Total Protein Albumin Crossmatch 03/02/19 03/02/19 03/02/19 03:16 04:41 05:43 WBC RBC 3.17 L Hgb 9.8 L Hct 28.4 L RDW 15.7 H Plt Count 120 L Seg Neuts % (Manual) Lymphocytes % (Manual) Monocytes % (Manual) Seg Neutrophils # Man 0.0 L Lymphocytes # (Manual) 0.0 L PT INR POC ABG pH 7.337 L POC ABG pCO2 POC ABG pO2 128 H Sodium Chloride Carbon Dioxide BUN Creatinine Glucose POC Glucose 148 H Calcium AST Total Protein Albumin Crossmatch 03/02/19 03/02/19 03/02/19 05:48 18:15 21:17 WBC RBC Hgb Hct RDW Plt Count Seg Neuts % (Manual) Lymphocytes % (Manual) Monocytes % (Manual) Seg Neutrophils # Man Lymphocytes # (Manual) PT INR POC ABG pH POC ABG pCO2 POC ABG pO2 Sodium Chloride Carbon Dioxide BUN Creatinine Glucose POC Glucose 121 H 129 H 135 H Calcium AST Total Protein Albumin Crossmatch 03/02/19 03/03/19 03/03/19 23:52 04:24 04:24 WBC 3.0 L RBC 2.93 L Hgb 8.9 L Hct 26.2 L RDW 15.9 H Plt Count 115 L Seg Neuts % (Manual) Lymphocytes % (Manual) Monocytes % (Manual) 16.0 H Seg Neutrophils # Man Lymphocytes # (Manual) 0.6 L PT INR POC ABG pH POC ABG pCO2 POC ABG pO2 Sodium 149 H Chloride 116.8 H Carbon Dioxide BUN 83 H Creatinine Glucose 127 H POC Glucose 137 H Calcium 7.9 L AST Total Protein Albumin Crossmatch 03/03/19 03/03/19 03/03/19 05:10 05:45 13:24 WBC RBC Hgb Hct RDW Plt Count Seg Neuts % (Manual) Lymphocytes % (Manual) Monocytes % (Manual) Seg Neutrophils # Man Lymphocytes # (Manual) PT INR POC ABG pH POC ABG pCO2 POC ABG pO2 152 H 144 H Sodium Chloride Carbon Dioxide BUN Creatinine Glucose POC Glucose 128 H Calcium AST Total Protein Albumin Crossmatch 03/03/19 03/03/19 03/04/19 18:05 18:57 00:09 WBC RBC Hgb Hct RDW Plt Count Seg Neuts % (Manual) Lymphocytes % (Manual) Monocytes % (Manual) Seg Neutrophils # Man Lymphocytes # (Manual) PT INR POC ABG pH 7.344 L POC ABG pCO2 POC ABG pO2 115 H Sodium Chloride Carbon Dioxide BUN Creatinine Glucose POC Glucose 194 H 139 H Calcium AST Total Protein Albumin Crossmatch 03/04/19 03/04/19 03/04/19 05:35 11:57 17:47 WBC RBC Hgb Hct RDW Plt Count Seg Neuts % (Manual) Lymphocytes % (Manual) Monocytes % (Manual) Seg Neutrophils # Man Lymphocytes # (Manual) PT INR POC ABG pH POC ABG pCO2 POC ABG pO2 Sodium Chloride Carbon Dioxide BUN Creatinine Glucose POC Glucose 128 H 154 H 190 H Calcium AST Total Protein Albumin Crossmatch 03/04/19 03/05/19 03/05/19 23:18 05:32 10:42 WBC RBC Hgb Hct RDW Plt Count Seg Neuts % (Manual) Lymphocytes % (Manual) Monocytes % (Manual) Seg Neutrophils # Man Lymphocytes # (Manual) PT INR POC ABG pH POC ABG pCO2 POC ABG pO2 Sodium Chloride Carbon Dioxide 20 L BUN 54 H Creatinine 0.5 L Glucose 152 H POC Glucose 158 H 132 H Calcium 7.7 L AST Total Protein Albumin Crossmatch 03/05/19 03/05/19 03/05/19 12:26 17:24 23:25 WBC RBC Hgb Hct RDW Plt Count Seg Neuts % (Manual) Lymphocytes % (Manual) Monocytes % (Manual) Seg Neutrophils # Man Lymphocytes # (Manual) PT INR POC ABG pH POC ABG pCO2 POC ABG pO2 Sodium Chloride Carbon Dioxide BUN Creatinine Glucose POC Glucose 154 H 208 H 141 H Calcium AST Total Protein Albumin Crossmatch 03/06/19 05:15 WBC RBC Hgb Hct RDW Plt Count Seg Neuts % (Manual) Lymphocytes % (Manual) Monocytes % (Manual) Seg Neutrophils # Man Lymphocytes # (Manual) PT INR POC ABG pH POC ABG pCO2 POC ABG pO2 Sodium Chloride Carbon Dioxide BUN Creatinine Glucose POC Glucose 138 H Calcium AST Total Protein Albumin Crossmatch
[2019-03-06] MEDS ORDERED: ZESTRIL PO SCH (11:00)
[2019-03-06] MEDS ORDERED: HCTZ PO SCH (11:00)
--- NOTE | 2019-03-06 11:57 | Discharge Summary ---
Providers - Providers Date of Admission: 02/28/19 13:37 Date of discharge: 03/06/19 Attending physician: MARY ANNE LEPE 02/28/19 10:56 Consult to Physician [CONS] Urgent Comment: Consulting Provider: CHINMAY LESTER Physician Instructions: Reason For Exam: bleeding from trach 02/28/19 10:59 Consult to Physician [CONS] Stat Comment: Consulting Provider: MIR CARUSO Physician Instructions: Reason For Exam: bleeding trach 02/28/19 21:48 Consult to Dietitian/Nutrition [CONS] Routine Physician Instructions: Reason For Exam: Reason for Consult: Write/Manage Tube Feeding Consult to Dietitian/Nutrition [CONS] Routine Physician Instructions: Reason For Exam: peg Tube feeding Reason for Consult: Write/Manage Tube Feeding 02/28/19 21:50 Consult to Dietitian/Nutrition [CONS] Routine Physician Instructions: Assess nutrtn needs, initiate, modify, manage TF Reason For Exam: Reason for Consult: Write/Manage Tube Feeding Reason for Consult: Write/Manage Tube Feeding 03/02/19 11:36 Consult to Wound/ET Nurse [CONS] Routine Reason For Exam: wound eval - neck, around tracheostomy Primary care physician: AMY Hospitalization Condition: Stable Hospital course: Brief History 53-year-old female patient on LTAC resident was admitted through emergency room with bleeding from the tracheostomy site Admitted appropriately managed evaluated by surgery, pulmonary critical, bleeding resolved, received 3 units of PRBC Today patient is comfortable. Cleared for discharge back to LTAC Case management is processing the discharge/transfer, awaiting insurance approval Discharge Diagnosis: /Bleeding from tracheostomy site; resolved /Chronic respiratory failure s/p tracheostomy Pulmonary critical following, stable to be discharged back to LTAC /Symptomatic anemia; requiring blood transfusion, received 3 units Hemoglobin has improved /Severe malnutrition;hypoalbuminemia nutrition supplements and supportive care, Nutrition consult /Type 2 diabetes mellitus; check sliding scale coverage and ADA diet and insulin as needed /Hypernatremia; free water flushes, Closely monitor electrolytes /-History of atrial fibrillation; rate controlled Continue current medications /HTN, Uncontrolled, - added HcTZ and lisinopril, changed dose for diltiazem /-Chronic anticoagulation: with Eliquis Eliquis is held because of bleeding. Cont aspirin for now /-DVT prophylaxis; SCDs Hospitalist Physical General appearance: Present: no acute distress, well-nourished, other ( tracheostomy on t-piece) - EENT Eyes: Present: PERRL, EOM intact - Neck Neck: Present: supple, normal ROM - Respiratory Respiratory effort: normal Respiratory: bilateral: diminished, negative: rales, rhonchi, wheezing - Cardiovascular Rhythm: regular Heart Sounds: Present: S1 & S2 - Extremities Extremities: no ischemia, No edema - Abdominal General gastrointestinal: soft, non-tender, non-distended, normal bowel sounds - Integumentary Integumentary: Present: clear, warm - Psychiatric Psychiatric: appropriate mood/affect - Neurologic Neurologic: other (secured weakness) Disposition: DC/TX-70 ANOTHER TYPE HLTHCARE Time spent for discharge: 34 minutes Core Measure Documentation - Palliative Care Palliative Care/ Comfort Measures: Not Applicable - Core Measures Any of the following diagnoses?: history only Exam - Constitutional Vitals: Temp Pulse Resp BP Pulse Ox 98.6 F 91 H 17 171/87 98 03/06/19 08:00 03/06/19 11:28 03/06/19 11:00 03/06/19 11:28 03/06/19 11:00 Plan Activity: up only with assistance Diet: other (TF) Wound: per wound nurse instructions Plan of Treatment: Tracheostomy care - Gently pack either side of tracheostomy incision with mesalt packing. Apply drain sponge and secure tracheostomy with neck strap. Perform wound care every other day Health Concerns: If you have any concerns about tracheostomy call General surgery office - Dr. Caruso or Dr. Ventura. [phone] Follow up with: BARBIE REYES MD [Primary Care Provider] - 3-5 Days
[2019-03-06 13:05] VITALS: BP 168/97
[2019-03-06] MEDS ORDERED: CARDIZEM PO SCH (14:00)
[2019-03-07] MEDS ORDERED: BABY ASPIRIN FEEDTUBE SCH (10:00)
== END 2019-03-06 13:45 | DRG 208 ==
LOC: ED 09:41 → CC1 13:37
PROVIDERS: ADMIT Internal Medicine; ATTEND Internal Medicine
PROC: 5A1945Z Respiratory Ventilation, 24-96 Consecutive Hours (ICD-10-PCS; principal; 2019-02-28)
PROC: 30233N1 Transfusion of Nonautologous Red Blood Cells into Peripheral Vein, Percutaneous Approach (ICD-10-PCS; 2019-02-28)
PROC: 4A033R1 Measurement of Arterial Saturation, Peripheral, Percutaneous Approach (ICD-10-PCS; 2019-03-01)
PROC: 5A1935Z Respiratory Ventilation, Less than 24 Consecutive Hours (ICD-10-PCS; 2019-03-06)
DX: J95.01 Hemorrhage from tracheostomy stoma (principal); E43 Unspecified severe protein-calorie malnutrition; J96.21 Acute and chronic respiratory failure with hypoxia; E87.0 Hyperosmolality and hypernatremia; N17.9 Acute kidney failure, unspecified; D62 Acute posthemorrhagic anemia; G93.40 Encephalopathy, unspecified; D69.6 Thrombocytopenia, unspecified; E03.9 Hypothyroidism, unspecified; I10 Essential (primary) hypertension; I48.91 Unspecified atrial fibrillation; E11.9 Type 2 diabetes mellitus without complications; Y83.8 Other surgical procedures as the cause of abnormal reaction of the patient, or of later complication, without mention of misadventure at the time of the procedure; Y92.89 Other specified places as the place of occurrence of the external cause; Z79.4 Long term (current) use of insulin; Z79.82 Long term (current) use of aspirin; Z68.31 Body mass index [BMI] 31.0-31.9, adult; Z86.73 Personal history of transient ischemic attack (TIA), and cerebral infarction without residual deficits
CPT/HCPCS: 36415; 36430; 36600; 70491; 71045; 80048; 80053; 82803; 82962; 83036; 85007; 85014; 85018; 85025; 85610; 85730; 86850; 86900; 86901; 86920; 93005; 93010; 94003; 94640; 94760; 96361; 96365; G0378; J0360; J1170; J1815; J2597; J7030; J7040; J7070; J7512; P9016; Q9967